=== PATIENT | male | born 1935 | race Caucasian/White ===

== ENCOUNTER → 2016-06-10 | Outpatient (CLI) | payer OTHER ==
--- NOTE | 2016-06-11 03:07 | REP ---
Clinical: Lower back pain. Technique: AP, lateral, bilateral oblique and coned-down views. Findings: Age-related osteopenia and moderate multilevel degenerative changes include anterior spurring/osteophyte formation, endplate sclerosis, disc space narrowing and hypertrophic facet changes. Findings are most pronounced at the L4-5, L3-4, and L5-S1 levels. No acute fracture / compression injury or subluxation. No evidence for spondylolysis. Impression: Osteopenia and moderate age-related degenerative disc disease. Signed by Abhilash Nieves MD 06/11/2016 02:58 A
== END ==
LOC: M RAD 16:07
PROVIDERS: ATTEND Chiropractor
DX: M85.88 Other specified disorders of bone density and structure, other site (principal); M51.36 Other intervertebral disc degeneration, lumbar region; M51.37 Other intervertebral disc degeneration, lumbosacral region

== ENCOUNTER → 2016-07-25 | Outpatient (REF) | payer OTHER ==
[2016-07-25 19:35] LABS: FREE T4 1.09 NG/DL (0.76-1.46)
== END ==
LOC: M LAB REF 16:50
PROVIDERS: ATTEND Internal Medicine Nephrology
DX: I48.2 Chronic atrial fibrillation (principal)

== ENCOUNTER → 2016-08-15 | Outpatient (CLI) | payer OTHER ==
--- NOTE | 2016-08-15 14:39 | REP ---
Clinical: Paroxysmal atrial fibrillation. Technique: PA and lateral. Comparison: 02/22/2014. Findings: Dual lead pacemaker in stable position. Mediastinum and cardiac silhouette normal. Lung celis demonstrate chronic changes with presumed mild COPD. No acute consolidation, effusion, or pneumothorax. Skeletal structures intact. Impression: Mild chronic changes. No acute cardiopulmonary process or focal consolidation. Signed by Abhilash Nieves MD 08/15/2016 02:30 P
== END ==
LOC: M RAD 14:20
PROVIDERS: ATTEND Physician Assistant
DX: I48.0 Paroxysmal atrial fibrillation (principal)

== ENCOUNTER → 2017-01-03 | Outpatient (CLI) | payer OTHER ==
--- NOTE | 2017-01-03 09:36 | REP ---
Chest x-ray: Two views. History: Paroxysmal atrial fibrillation. Comparison chest x-ray: August 15, 2016. Findings: A bipolar pacemaker remains in the right heart via the left side. There is a minimal zone of linear fibrosis in the left base unchanged. Heart is not felt to be enlarged. Cardiothoracic ratio measures 16.4 cm over 33.5 cm. Pulmonary vasculature is not increased. Pleural angles are sharp. Impression: Pacemaker in place. Otherwise no acute disease. Mild linear fibrosis left base. Signed by Miller El MD 01/03/2017 03:49 P
== END ==
LOC: M RAD 09:08
PROVIDERS: ATTEND Physician Assistant
DX: I48.0 Paroxysmal atrial fibrillation (principal)

== ENCOUNTER 2017-08-24 15:19 | Inpatient (IN) | payer OTHER ==
[2017-08-24 15:58] LABS: BASO # 0.1 10^3/uL (0.0-0.2); BASO % 0.3 % (0.0-1.0); EOS % 0.2 % (0.0-3.0); HEMATOCRIT 37.6 % (42.0-52.0); HEMOGLOBIN 12.4 g/dl (13.5-17.5); IMMATURE GRANULOCYTE % 1.5 % (0-3.0); LYMPH # 0.9 10^3/uL (1.5-4.5); LYMPH % 4.4 % (24.0-44.0); MEAN CORPUSCULAR HEMOGLOBIN 30.5 pg (27.0-33.0); MEAN CORPUSCULAR VOLUME 92.4 fl (80.0-96.0); NEUTROPHILS # 16.2 10^3/uL (1.8-7.7); NEUTROPHILS % 83.3 % (36.0-66.0); PLATELET COUNT, AUTOMATED 192 10^3/uL (150-450); RED BLOOD COUNT 4.07 10^6/uL (4.30-6.10); WHITE BLOOD COUNT 19.5 10^3/uL (4.0-10.0)
[2017-08-24] MEDS: NS 1,000 ML IV (16:00)
[2017-08-24 16:08] LABS: INR 1.22; PROTHROMBIN TIME 15.6 SECONDS (12.4-14.5)
[2017-08-24] MEDS: ONDANSETRON 4MG/2ML VIAL (J2405) IV (16:08)
[2017-08-24] MEDS: MORPHINE 2 MG/ML 1ML SYRINGE (J2270) IV (16:08)
[2017-08-24] MEDS: ACETAMINOPHEN 325 MG TAB PO (16:08)
[2017-08-24 16:15] LABS: MONO % 10.3 % (0.0-5.0); POSITIVE DIFF POS FLAG
[2017-08-24 16:26] LABS: ALBUMIN 2.9 GM/DL (3.2-5.2); ALBUMIN/GLOBULIN RATIO 1.07 (1.00-1.93); ALKALINE PHOSPHATASE 38 U/L (45-117); ALT/SGPT 15 U/L (12-78); ANION GAP 9 MEQ/L (8-16); AST/SGOT 11 U/L (7-37); BILIRUBIN,DIRECT 0.4 MG/DL (0.0-0.2); BILIRUBIN,TOTAL 1.1 MG/DL (0.2-1.0); BLOOD UREA NITROGEN 21 MG/DL (7-18); CALCIUM LEVEL 8.3 MG/DL (8.8-10.2); CARBON DIOXIDE LEVEL 28 MEQ/L (21-32); CHLORIDE LEVEL 104 MEQ/L (98-107); CK-MB VALUE MASS < 1.0 NG/ML (<3.6); CPK CREATINE PHOSPHOKINASE 31 U/L (39-308); CREATININE FOR GFR 1.74 MG/DL (0.70-1.30); GLOMERULAR FILTRATION RATE 40.2 (>35); GLUCOSE, FASTING 148 MG/DL (70-100); LIPASE 149 U/L (73-393); MB/CK RELATIVE INDEX 3.22 (< OR =4); POTASSIUM SERUM 3.7 MEQ/L (3.5-5.1); SODIUM LEVEL 141 MEQ/L (136-145); TOTAL PROTEIN 5.6 GM/DL (6.4-8.2); TROPONIN I < 0.02 NG/ML (< 0.10)
[2017-08-24] MEDS ORDERED: ONDANSETRON 4MG/2ML VIAL (J2405) IV (17:00)
[2017-08-24] MEDS: CIPROFLOXACIN 400 MG in APPROPRIATE DILUENT 1 EA IV (17:03)
[2017-08-24 17:12] LABS: KETONE, URINE AUTO RFX TRACE mg/dL (NEGATIVE); LEUKOCYTE ESTERASE UR AUTO RFX NEGATIVE (NEGATIVE); MUCUS, URINE RFX SMALL (NEGATIVE); NITRITE, URINE AUTO RFX NEGATIVE (NEGATIVE); RBC, URINE AUTO RFX 2 /HPF (0-3); SQUAM EPITHELIAL CELL UR AURFX 0 /HPF (0-6); WBC, URINE AUTO RFX 1 /HPF (0-3)
[2017-08-24 17:56] LABS: LACTIC ACID SEPSIS PROTOCOL 1.1 MMOL/L (0.4-2.0)
[2017-08-24] MEDS: ATENOLOL 50 MG TAB PO (18:00)
[2017-08-24] MEDS: metroNIDAZOLE 500 MG in APPROPRIATE DILUENT 1 EA IV (18:30)
[2017-08-24] MEDS: FINASTERIDE 5 MG TAB PO (21:14)
[2017-08-24] MEDS: OMEGA-3 1050MG CAPSULE PO (21:14)
[2017-08-24] MEDS: predniSONE 5 MG TAB PO (21:14)
[2017-08-24] MEDS: APIXABAN 2.5 MG TAB (ELIQUIS) PO (21:14)
[2017-08-24] MEDS ORDERED: PILL CRUSHER/CUTTER 1 EACH XX (21:15)
[2017-08-24] MEDS: SYMBICORT 160/4.5MCG INHALER 6GM INH (23:43)
[2017-08-25] MEDS: metroNIDAZOLE 500 MG in APPROPRIATE DILUENT 1 EA IV ×2 (02:39→10:13)
[2017-08-25] MEDS: NS 1,000 ML IV ×4 (02:39→22:04)
[2017-08-25] MEDS: CIPROFLOXACIN 400 MG in APPROPRIATE DILUENT 1 EA IV (05:11)
[2017-08-25 06:07] LABS: HEMATOCRIT 32.3 % (42.0-52.0); HEMOGLOBIN 10.5 g/dl (13.5-17.5); MEAN CORPUSCULAR HEMOGLOBIN 30.4 pg (27.0-33.0); MEAN CORPUSCULAR HGB CONC 32.5 g/dl (32.0-36.5); MEAN CORPUSCULAR VOLUME 93.6 fl (80.0-96.0); PLATELET COUNT, AUTOMATED 149 10^3/uL (150-450); RED BLOOD COUNT 3.45 10^6/uL (4.30-6.10); RED CELL DISTRIBUTION WIDTH 19.2 % (11.5-14.5)
[2017-08-25 06:29] LABS: ALBUMIN 2.2 GM/DL (3.2-5.2); ALBUMIN/GLOBULIN RATIO 0.71 (1.00-1.93); ALKALINE PHOSPHATASE 34 U/L (45-117); ALT/SGPT 18 U/L (12-78); ANION GAP 5 MEQ/L (8-16); AST/SGOT 23 U/L (7-37); BILIRUBIN,TOTAL 0.8 MG/DL (0.2-1.0); BLOOD UREA NITROGEN 22 MG/DL (7-18); CALCIUM LEVEL 7.7 MG/DL (8.8-10.2); CARBON DIOXIDE LEVEL 29 MEQ/L (21-32); CHLORIDE LEVEL 106 MEQ/L (98-107); CREATININE FOR GFR 2.08 MG/DL (0.70-1.30); GLOMERULAR FILTRATION RATE 32.7 (>35); GLUCOSE, FASTING 188 MG/DL (70-100); SODIUM LEVEL 140 MEQ/L (136-145); TOTAL PROTEIN 5.3 GM/DL (6.4-8.2)
[2017-08-25] MEDS: SYMBICORT 160/4.5MCG INHALER 6GM INH ×2 (07:25→21:00)
[2017-08-25] MEDS: ASPIRIN 81 MG ENTERIC TAB PO (08:30)
[2017-08-25] MEDS: APIXABAN 2.5 MG TAB (ELIQUIS) PO ×2 (08:30→20:28)
[2017-08-25] MEDS: OMEPRAZOLE 20 MG CAP PO (08:30)
[2017-08-25] MEDS: FENOFIBRATE 145 MG TAB (TRICOR) PO (08:30)
[2017-08-25] MEDS: OMEGA-3 1050MG CAPSULE PO ×2 (08:30→20:28)
[2017-08-25] MEDS: AMIODARONE 200 MG TAB (PACERONE) PO (08:31)
[2017-08-25] MEDS: ATENOLOL 50 MG TAB PO ×2 (08:33→17:53)
[2017-08-25] MEDS: traMADol 50 MG TAB PO ×2 (10:41→20:29)
[2017-08-25 11:45] LABS: CHLORIDE,RANDOM URINE 48 MEQ/L; POTASSIUM RANDOM URINE 40.7 MEQ/L; SODIUM,RANDOM URINE 36 MEQ/L; TOTAL PROTEIN,RANDOM URINE 74.8 MG/DL (0.0-12.0)
[2017-08-25 12:05] LABS: OSMOLALITY URINE 427 MOSM/KG (500-800)
[2017-08-25] MEDS: PIPERACILLIN/TAZOBACTAM SOD 3.375 GM in D5W MINI-BAG PLUS 50 ML IV ×2 (15:30→22:04)
[2017-08-25] MEDS: CALCIUM CARBONATE 500 MG CHEW U/D PO (17:54)
[2017-08-25] MEDS: predniSONE 5 MG TAB PO (20:28)
[2017-08-25] MEDS: FINASTERIDE 5 MG TAB PO (20:28)
[2017-08-25] MEDS: ACETAMINOPHEN TAB 650MG DOSE (2X325MG) PO (22:04)
[2017-08-26] MEDS: PIPERACILLIN/TAZOBACTAM SOD 3.375 GM in D5W MINI-BAG PLUS 50 ML IV ×3 (06:06→22:08)
[2017-08-26] MEDS: NS 1,000 ML IV (06:06)
[2017-08-26 06:54] LABS: HEMATOCRIT 32.5 % (42.0-52.0); HEMOGLOBIN 10.5 g/dl (13.5-17.5); MEAN CORPUSCULAR HEMOGLOBIN 30.4 pg (27.0-33.0); MEAN CORPUSCULAR HGB CONC 32.3 g/dl (32.0-36.5); MEAN CORPUSCULAR VOLUME 94.2 fl (80.0-96.0); PLATELET COUNT, AUTOMATED 152 10^3/uL (150-450); RED BLOOD COUNT 3.45 10^6/uL (4.30-6.10); RED CELL DISTRIBUTION WIDTH 18.5 % (11.5-14.5); WHITE BLOOD COUNT 10.8 10^3/uL (4.0-10.0)
[2017-08-26 07:22] LABS: ALBUMIN/GLOBULIN RATIO 0.61 (1.00-1.93); ALKALINE PHOSPHATASE 36 U/L (45-117); ALT/SGPT 17 U/L (12-78); ANION GAP 9 MEQ/L (8-16); AST/SGOT 16 U/L (7-37); BILIRUBIN,TOTAL 0.4 MG/DL (0.2-1.0); BLOOD UREA NITROGEN 17 MG/DL (7-18); CALCIUM LEVEL 7.6 MG/DL (8.8-10.2); CARBON DIOXIDE LEVEL 22 MEQ/L (21-32); CHLORIDE LEVEL 112 MEQ/L (98-107); CREATININE FOR GFR 1.42 MG/DL (0.70-1.30); GLOMERULAR FILTRATION RATE 50.8 (>35); GLUCOSE, FASTING 120 MG/DL (70-100); POTASSIUM SERUM 4.1 MEQ/L (3.5-5.1); SODIUM LEVEL 143 MEQ/L (136-145); TOTAL PROTEIN 5.3 GM/DL (6.4-8.2)
[2017-08-26] MEDS: SYMBICORT 160/4.5MCG INHALER 6GM INH ×2 (07:51→19:35)
[2017-08-26] MEDS: OMEGA-3 1050MG CAPSULE PO ×2 (09:34→20:32)
[2017-08-26] MEDS: ASPIRIN 81 MG ENTERIC TAB PO (09:35)
[2017-08-26] MEDS: ATENOLOL 50 MG TAB PO ×2 (09:35→18:04)
[2017-08-26] MEDS: AMIODARONE 200 MG TAB (PACERONE) PO (09:36)
[2017-08-26] MEDS: OMEPRAZOLE 20 MG CAP PO (09:36)
[2017-08-26] MEDS: APIXABAN 2.5 MG TAB (ELIQUIS) PO ×2 (09:37→20:32)
[2017-08-26] MEDS: NS 0.45% 1,000 ML IV ×2 (12:56→22:08)
[2017-08-26] MEDS: traMADol 50 MG TAB PO ×2 (15:43→20:33)
[2017-08-26] MEDS: ACETAMINOPHEN TAB 650MG DOSE (2X325MG) PO (20:32)
[2017-08-26] MEDS: FINASTERIDE 5 MG TAB PO (20:32)
[2017-08-26] MEDS: predniSONE 5 MG TAB PO (20:33)
[2017-08-27] MEDS: PIPERACILLIN/TAZOBACTAM SOD 3.375 GM in D5W MINI-BAG PLUS 50 ML IV ×3 (06:10→22:35)
[2017-08-27 06:38] LABS: HEMATOCRIT 32.5 % (42.0-52.0); HEMOGLOBIN 10.5 g/dl (13.5-17.5); MEAN CORPUSCULAR HEMOGLOBIN 30.4 pg (27.0-33.0); MEAN CORPUSCULAR HGB CONC 32.3 g/dl (32.0-36.5); MEAN CORPUSCULAR VOLUME 94.2 fl (80.0-96.0); PLATELET COUNT, AUTOMATED 179 10^3/uL (150-450); RED BLOOD COUNT 3.45 10^6/uL (4.30-6.10); RED CELL DISTRIBUTION WIDTH 18.6 % (11.5-14.5); WHITE BLOOD COUNT 9.2 10^3/uL (4.0-10.0)
[2017-08-27 07:18] LABS: ALBUMIN 2.1 GM/DL (3.2-5.2); ALBUMIN/GLOBULIN RATIO 0.64 (1.00-1.93); ALKALINE PHOSPHATASE 35 U/L (45-117); ALT/SGPT 15 U/L (12-78); ANION GAP 4 MEQ/L (8-16); AST/SGOT 12 U/L (7-37); BILIRUBIN,TOTAL 0.4 MG/DL (0.2-1.0); BLOOD UREA NITROGEN 11 MG/DL (7-18); CARBON DIOXIDE LEVEL 28 MEQ/L (21-32); CHLORIDE LEVEL 112 MEQ/L (98-107); GLOMERULAR FILTRATION RATE 56.3 (>35); GLUCOSE, FASTING 122 MG/DL (70-100); POTASSIUM SERUM 4.1 MEQ/L (3.5-5.1); SODIUM LEVEL 144 MEQ/L (136-145); TOTAL PROTEIN 5.4 GM/DL (6.4-8.2)
[2017-08-27] MEDS: SYMBICORT 160/4.5MCG INHALER 6GM INH ×3 (07:43→21:00)
[2017-08-27] MEDS: ASPIRIN 81 MG ENTERIC TAB PO (08:54)
[2017-08-27] MEDS: AMIODARONE 200 MG TAB (PACERONE) PO (08:54)
[2017-08-27] MEDS: OMEGA-3 1050MG CAPSULE PO ×2 (08:54→21:00)
[2017-08-27] MEDS: ATENOLOL 50 MG TAB PO ×2 (08:55→18:00)
[2017-08-27] MEDS: ACETAMINOPHEN TAB 650MG DOSE (2X325MG) PO ×2 (08:55→22:36)
[2017-08-27] MEDS: APIXABAN 2.5 MG TAB (ELIQUIS) PO ×2 (08:55→21:01)
[2017-08-27] MEDS: OMEPRAZOLE 20 MG CAP PO (08:55)
[2017-08-27] MEDS: FINASTERIDE 5 MG TAB PO (21:00)
[2017-08-27] MEDS: predniSONE 5 MG TAB PO (21:01)
[2017-08-28] MEDS: PIPERACILLIN/TAZOBACTAM SOD 3.375 GM in D5W MINI-BAG PLUS 50 ML IV (06:29)
[2017-08-28] MEDS: ACETAMINOPHEN TAB 650MG DOSE (2X325MG) PO ×3 (06:34→20:53)
[2017-08-28 06:47] LABS: HEMATOCRIT 34.9 % (42.0-52.0); HEMOGLOBIN 11.4 g/dl (13.5-17.5); MEAN CORPUSCULAR HEMOGLOBIN 30.5 pg (27.0-33.0); MEAN CORPUSCULAR HGB CONC 32.7 g/dl (32.0-36.5); MEAN CORPUSCULAR VOLUME 93.3 fl (80.0-96.0); PLATELET COUNT, AUTOMATED 224 10^3/uL (150-450); RED BLOOD COUNT 3.74 10^6/uL (4.30-6.10); RED CELL DISTRIBUTION WIDTH 18.4 % (11.5-14.5); WHITE BLOOD COUNT 7.3 10^3/uL (4.0-10.0)
[2017-08-28 07:07] LABS: ALBUMIN 2.1 GM/DL (3.2-5.2); ALBUMIN/GLOBULIN RATIO 0.64 (1.00-1.93); ALKALINE PHOSPHATASE 47 U/L (45-117); ALT/SGPT 17 U/L (12-78); ANION GAP 4 MEQ/L (8-16); AST/SGOT 15 U/L (7-37); BILIRUBIN,TOTAL 0.4 MG/DL (0.2-1.0); BLOOD UREA NITROGEN 8 MG/DL (7-18); CALCIUM LEVEL 7.7 MG/DL (8.8-10.2); CARBON DIOXIDE LEVEL 30 MEQ/L (21-32); CHLORIDE LEVEL 112 MEQ/L (98-107); CREATININE FOR GFR 1.35 MG/DL (0.70-1.30); GLOMERULAR FILTRATION RATE 53.9 (>35); GLUCOSE, FASTING 132 MG/DL (70-100); POTASSIUM SERUM 3.7 MEQ/L (3.5-5.1); SODIUM LEVEL 146 MEQ/L (136-145); TOTAL PROTEIN 5.4 GM/DL (6.4-8.2)
[2017-08-28] MEDS: IPRATROPIUM 0.5MG/ALBUTEROL 2.5MG INH SOL UD 3ML (DUONEB)(J7620) NEB (07:52)
[2017-08-28] MEDS: SYMBICORT 160/4.5MCG INHALER 6GM INH ×2 (07:52→20:17)
[2017-08-28] MEDS: APIXABAN 2.5 MG TAB (ELIQUIS) PO ×2 (08:53→20:53)
[2017-08-28] MEDS: OMEGA-3 1050MG CAPSULE PO ×2 (08:54→20:53)
[2017-08-28] MEDS: AMIODARONE 200 MG TAB (PACERONE) PO (08:54)
[2017-08-28] MEDS: ATENOLOL 50 MG TAB PO ×2 (08:54→18:38)
[2017-08-28] MEDS: OMEPRAZOLE 20 MG CAP PO (08:54)
[2017-08-28] MEDS: ASPIRIN 81 MG ENTERIC TAB PO (08:54)
[2017-08-28] MEDS ORDERED: HEPARIN SOD (PORCINE) 5000 UNITS/ML VIAL As Ordered (15:44)
[2017-08-28] MEDS: AUGMENTIN 875 MG TAB PO (20:52)
[2017-08-28] MEDS: FINASTERIDE 5 MG TAB PO (20:52)
[2017-08-28] MEDS: traMADol 50 MG TAB PO (20:53)
[2017-08-28] MEDS: predniSONE 5 MG TAB PO (20:53)
[2017-08-28] MEDS: rOPINIRole 0.25 MG TAB(REQUIP) PO (23:50)
[2017-08-29] MEDS: ACETAMINOPHEN TAB 650MG DOSE (2X325MG) PO ×2 (05:30→15:16)
[2017-08-29 05:58] LABS: HEMATOCRIT 32.6 % (42.0-52.0); HEMOGLOBIN 10.7 g/dl (13.5-17.5); MEAN CORPUSCULAR HEMOGLOBIN 30.7 pg (27.0-33.0); MEAN CORPUSCULAR HGB CONC 32.8 g/dl (32.0-36.5); MEAN CORPUSCULAR VOLUME 93.4 fl (80.0-96.0); PLATELET COUNT, AUTOMATED 206 10^3/uL (150-450); RED BLOOD COUNT 3.49 10^6/uL (4.30-6.10); RED CELL DISTRIBUTION WIDTH 17.9 % (11.5-14.5); WHITE BLOOD COUNT 7.2 10^3/uL (4.0-10.0)
[2017-08-29 06:28] LABS: ALBUMIN 2.1 GM/DL (3.2-5.2); ALBUMIN/GLOBULIN RATIO 0.68 (1.00-1.93); ALKALINE PHOSPHATASE 52 U/L (45-117); ALT/SGPT 18 U/L (12-78); ANION GAP 6 MEQ/L (8-16); AST/SGOT 20 U/L (7-37); BILIRUBIN,TOTAL 0.3 MG/DL (0.2-1.0); BLOOD UREA NITROGEN 8 MG/DL (7-18); CALCIUM LEVEL 7.9 MG/DL (8.8-10.2); CARBON DIOXIDE LEVEL 29 MEQ/L (21-32); CHLORIDE LEVEL 113 MEQ/L (98-107); CREATININE FOR GFR 1.23 MG/DL (0.70-1.30); GLUCOSE, FASTING 113 MG/DL (70-100); POTASSIUM SERUM 3.6 MEQ/L (3.5-5.1); SODIUM LEVEL 148 MEQ/L (136-145); TOTAL PROTEIN 5.2 GM/DL (6.4-8.2)
[2017-08-29] MEDS: SYMBICORT 160/4.5MCG INHALER 6GM INH ×2 (07:50→19:59)
[2017-08-29] MEDS: ASPIRIN 81 MG ENTERIC TAB PO (09:18)
[2017-08-29] MEDS: OMEGA-3 1050MG CAPSULE PO ×2 (09:19→20:42)
[2017-08-29] MEDS: AUGMENTIN 875 MG TAB PO ×2 (09:19→20:42)
[2017-08-29] MEDS: AMIODARONE 200 MG TAB (PACERONE) PO (09:20)
[2017-08-29] MEDS: APIXABAN 2.5 MG TAB (ELIQUIS) PO ×2 (09:20→20:42)
[2017-08-29] MEDS: OMEPRAZOLE 20 MG CAP PO (09:21)
[2017-08-29] MEDS: ATENOLOL 50 MG TAB PO ×2 (09:21→18:06)
[2017-08-29] MEDS ORDERED: ISOVUE-370 76% 100ML VIAL (Q9967) As Ordered (10:54)
[2017-08-29] MEDS: rOPINIRole 0.25 MG TAB(REQUIP) PO (20:42)
[2017-08-29] MEDS: predniSONE 5 MG TAB PO (20:42)
[2017-08-29] MEDS: FINASTERIDE 5 MG TAB PO (20:42)
[2017-08-30] MEDS: ACETAMINOPHEN TAB 650MG DOSE (2X325MG) PO (05:36)
[2017-08-30 06:37] LABS: HEMATOCRIT 34.1 % (42.0-52.0); HEMOGLOBIN 10.8 g/dl (13.5-17.5); MEAN CORPUSCULAR HEMOGLOBIN 29.7 pg (27.0-33.0); MEAN CORPUSCULAR HGB CONC 31.7 g/dl (32.0-36.5); MEAN CORPUSCULAR VOLUME 93.7 fl (80.0-96.0); PLATELET COUNT, AUTOMATED 216 10^3/uL (150-450); RED BLOOD COUNT 3.64 10^6/uL (4.30-6.10); RED CELL DISTRIBUTION WIDTH 18.4 % (11.5-14.5); WHITE BLOOD COUNT 9.3 10^3/uL (4.0-10.0)
[2017-08-30 07:05] LABS: ALBUMIN 2.3 GM/DL (3.2-5.2); ALBUMIN/GLOBULIN RATIO 0.92 (1.00-1.93); ALKALINE PHOSPHATASE 65 U/L (45-117); ALT/SGPT 22 U/L (12-78); ANION GAP 6 MEQ/L (8-16); AST/SGOT 24 U/L (7-37); BILIRUBIN,TOTAL 0.3 MG/DL (0.2-1.0); BLOOD UREA NITROGEN 9 MG/DL (7-18); CALCIUM LEVEL 7.8 MG/DL (8.8-10.2); CARBON DIOXIDE LEVEL 29 MEQ/L (21-32); CHLORIDE LEVEL 113 MEQ/L (98-107); GLOMERULAR FILTRATION RATE > 60.0 (>35); GLUCOSE, FASTING 128 MG/DL (70-100); POTASSIUM SERUM 3.7 MEQ/L (3.5-5.1); SODIUM LEVEL 148 MEQ/L (136-145); TOTAL PROTEIN 4.8 GM/DL (6.4-8.2)
[2017-08-30] MEDS: SYMBICORT 160/4.5MCG INHALER 6GM INH (07:18)
[2017-08-30] MEDS: AMIODARONE 200 MG TAB (PACERONE) PO (09:18)
[2017-08-30] MEDS: AUGMENTIN 875 MG TAB PO (09:18)
[2017-08-30] MEDS: OMEGA-3 1050MG CAPSULE PO (09:18)
[2017-08-30] MEDS: ASPIRIN 81 MG ENTERIC TAB PO (09:18)
[2017-08-30] MEDS: OMEPRAZOLE 20 MG CAP PO (09:19)
[2017-08-30] MEDS: APIXABAN 2.5 MG TAB (ELIQUIS) PO (09:19)
[2017-08-30] MEDS: ATENOLOL 50 MG TAB PO (09:19)
== END 2017-08-30 12:45 | disposition home or self-care (01) | DRG 371 ==
LOC: M ED 15:19 → M ED INP 16:47 → M MS5PR 20:50
DX: A04.9 Bacterial intestinal infection, unspecified (principal); A41.9 Sepsis, unspecified organism; N17.9 Acute kidney failure, unspecified; K56.600 Partial intestinal obstruction, unspecified as to cause; D72.829 Elevated white blood cell count, unspecified; I48.91 Unspecified atrial fibrillation; E78.5 Hyperlipidemia, unspecified; N28.1 Cyst of kidney, acquired; 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, or unspecified chronic kidney disease; G25.81 Restless legs syndrome; N18.3 Chronic kidney disease, stage 3 (moderate); J45.909 Unspecified asthma, uncomplicated; Z79.82 Long term (current) use of aspirin; Z79.899 Other long term (current) drug therapy; Z79.52 Long term (current) use of systemic steroids; Z95.0 Presence of cardiac pacemaker

== ENCOUNTER → 2018-01-07 | Outpatient (CLI) | payer OTHER ==
[2018-01-07 13:01] LABS: HEMATOCRIT 37.7 % (42.0-52.0); HEMOGLOBIN 12.3 g/dl (13.5-17.5); MEAN CORPUSCULAR HEMOGLOBIN 30.2 pg (27.0-33.0); MEAN CORPUSCULAR HGB CONC 32.6 g/dl (32.0-36.5); MEAN CORPUSCULAR VOLUME 92.6 fl (80.0-96.0); PLATELET COUNT, AUTOMATED 204 10^3/uL (150-450); RED BLOOD COUNT 4.07 10^6/uL (4.30-6.10); RED CELL DISTRIBUTION WIDTH 19.3 % (11.5-14.5); WHITE BLOOD COUNT 11.3 10^3/uL (4.0-10.0)
[2018-01-07 14:42] LABS: ALBUMIN 3.2 GM/DL (3.2-5.2); ALBUMIN/GLOBULIN RATIO 1.28 (1.00-1.93); ALKALINE PHOSPHATASE 38 U/L (45-117); ALT/SGPT 25 U/L (12-78); ANION GAP 7 MEQ/L (8-16); AST/SGOT 23 U/L (7-37); BILIRUBIN,TOTAL 0.8 MG/DL (0.2-1.0); BLOOD UREA NITROGEN 26 MG/DL (7-18); CALCIUM LEVEL 8.9 MG/DL (8.8-10.2); CARBON DIOXIDE LEVEL 32 MEQ/L (21-32); CHLORIDE LEVEL 106 MEQ/L (98-107); CREATININE FOR GFR 1.53 MG/DL (0.70-1.30); GLOMERULAR FILTRATION RATE 46.5 (>35); GLUCOSE, FASTING 107 MG/DL (70-100); MAGNESIUM LEVEL 1.9 MG/DL (1.8-2.4); POTASSIUM SERUM 4.5 MEQ/L (3.5-5.1); SODIUM LEVEL 145 MEQ/L (136-145); THYROID STIMULATING HORMONE 0.789 uIU/ML (0.358-3.740); TOTAL PROTEIN 5.7 GM/DL (6.4-8.2)
== END ==
LOC: M LAB 12:23
DX: I48.0 Paroxysmal atrial fibrillation (principal)
CPT/HCPCS: 71046

== ENCOUNTER → 2018-05-18 | Outpatient (CLI) | payer MEDICARE, OTHER ==
[~2018-05-18] MED LIST: AMIO200T PO; ASPI81TA85 PO; ATEN50TA2 PO; CALC600T31 PO; ELIQ2.5T PO; FENO160T10 PO; FINA5TAB2 PO; FISH120012 PO; LEVAINH INH; OMEP40CA2 PO; PRED5TA PO; REQU1TAB14 PO; SYMB16INH INH; TRAM50TA2 PO
[2018-05-18 18:29] LABS: BASO # 0.1 10^3/uL (0.0-0.2); BASO % 0.3 % (0.0-1.0); EOS % 0.1 % (0.0-3.0); HEMATOCRIT 38.3 % (42.0-52.0); HEMOGLOBIN 12.7 g/dl (13.5-17.5); LYMPH # 0.6 10^3/uL (1.5-4.5); LYMPH % 3.6 % (24.0-44.0); MEAN CORPUSCULAR HEMOGLOBIN 29.8 pg (27.0-33.0); MEAN CORPUSCULAR HGB CONC 33.2 g/dl (32.0-36.5); MEAN CORPUSCULAR VOLUME 89.9 fl (80.0-96.0); MONO # 1.6 10^3/uL (0.0-0.8); MONO % 10.4 % (0.0-5.0); NEUTROPHILS # 12.4 10^3/uL (1.8-7.7); PLATELET COUNT, AUTOMATED 212 10^3/uL (150-450); RED BLOOD COUNT 4.26 10^6/uL (4.30-6.10); WHITE BLOOD COUNT 15.2 10^3/uL (4.0-10.0)
[2018-05-18 19:06] LABS: ALT/SGPT 22 U/L (12-78); BILIRUBIN,TOTAL 0.6 MG/DL (0.2-1.0); BLOOD UREA NITROGEN 32 MG/DL (7-18); CALCIUM LEVEL 8.5 MG/DL (8.8-10.2); CARBON DIOXIDE LEVEL 28 MEQ/L (21-32); CHLORIDE LEVEL 102 MEQ/L (98-107); CPK CREATINE PHOSPHOKINASE 61 U/L (39-308); CREATININE FOR GFR 1.65 MG/DL (0.70-1.30); GLOMERULAR FILTRATION RATE 42.6 (>35); GLUCOSE, FASTING 130 MG/DL (70-100); MAGNESIUM LEVEL 1.8 MG/DL (1.8-2.4); NT-PRO BNP 793 PG/ML (<450); POTASSIUM SERUM 4.5 MEQ/L (3.5-5.1); SODIUM LEVEL 139 MEQ/L (136-145); THYROID STIMULATING HORMONE 0.664 uIU/ML (0.358-3.740); TOTAL PROTEIN 6.1 GM/DL (6.4-8.2); TROPONIN I < 0.02 NG/ML (< 0.10)
--- NOTE | 2018-05-19 01:56 | REP ---
Clinical: Cough. Technique: PA and lateral. Comparison: 01/07/2018. Findings: Mediastinum and cardiac silhouette are within normal limits and stable. Dual lead pacemaker in stable satisfactory position. Medial right basilar opacity may reflect prominent pericardial fat pad versus right basilar infiltrate/atelectasis and correlation is recommended. Diffuse underlying chronic interstitial changes noted bilaterally. No effusion. No pneumothorax. Skeletal structures intact. Impression: Right medial basilar opacity suggests prominent fat pad versus area of infiltrate/atelectasis and correlation is recommended. Consider follow-up examination. Electronically Signed by Abhilash Nieves MD 05/19/2018 01:48 A
== END ==
LOC: M LAB 17:48
PROVIDERS: ATTEND Nurse Practitioner
DX: R91.8 Other nonspecific abnormal finding of lung field (principal); R06.02 Shortness of breath; R00.2 Palpitations; R53.83 Other fatigue; R05 Cough

== ENCOUNTER → 2018-07-14 | Outpatient (REF) | payer MEDICARE | LOC: M LAB REF 10:03 | PROVIDERS: ATTEND Physician Assistant | DX: I50.9 Heart failure, unspecified (principal) ==

== ENCOUNTER → 2018-07-14 | Outpatient (CLI) | payer MEDICARE ==
[2018-07-14 14:10] LABS: CALCIUM LEVEL 8.7 MG/DL (8.8-10.2); CREATININE FOR GFR 1.65 MG/DL (0.70-1.30); GLOMERULAR FILTRATION RATE 42.6 (>35); MAGNESIUM LEVEL 1.8 MG/DL (1.8-2.4); POTASSIUM SERUM 3.8 MEQ/L (3.5-5.1)
== END ==
LOC: M RAD 12:50
PROVIDERS: ATTEND Internal Medicine
DX: I48.0 Paroxysmal atrial fibrillation (principal)

== ENCOUNTER 2019-02-14 13:26 | Inpatient (IN) | payer MEDICARE ==
[~2019-02-14] VITALS: Ht 170.2 cm; Wt 67.2 kg
[~2019-02-14 13:26] MED LIST changes: -OMEP40CA2 PO; +OMEP40CA97 PO
[2019-02-14] MEDS ORDERED: IPRATROPIUM 0.5MG/ALBUTEROL 2.5MG INH SOL UD 3ML (DUONEB)(J7620) NEB ONE (13:45)
[2019-02-14 13:55] LABS: BASO # 0.1 10^3/uL (0.0-0.2); BASO % 0.3 % (0.0-1.0); EOS % 0.2 % (0.0-3.0); HEMOGLOBIN 10.5 g/dl (13.5-17.5); LYMPH # 0.9 10^3/uL (1.5-5.0); LYMPH % 4.6 % (24.0-44.0); MEAN CORPUSCULAR HEMOGLOBIN 30.2 pg (27.0-33.0); MEAN CORPUSCULAR HGB CONC 31.8 g/dl (32.0-36.5); MEAN CORPUSCULAR VOLUME 94.8 fl (80.0-96.0); NEUTROPHILS # 14.6 10^3/uL (1.5-8.5); NEUTROPHILS % 76.8 % (36.0-66.0); PLATELET COUNT, AUTOMATED 155 10^3/uL (150-450); RED BLOOD COUNT 3.48 10^6/uL (4.30-6.10); WHITE BLOOD COUNT 18.9 10^3/uL (4.0-10.0)
[2019-02-14 14:07] LABS: INR 1.27; PROTHROMBIN TIME 15.6 SECONDS (11.8-14.0)
[2019-02-14 14:08] LABS: PARTIAL THROMBOPLASTIN TIME 36.3 SECONDS (25.0-38.4)
[2019-02-14] MEDS ORDERED: MIRA3350 PO (14:08)
[2019-02-14] MEDS ORDERED: TAMS1CAP17 PO (14:08)
[2019-02-14] MEDS ORDERED: POTA10TA17 PO (14:08)
[2019-02-14] MEDS ORDERED: TORS20TA2 PO (14:08)
[2019-02-14] MEDS ORDERED: DILT60TA PO (14:08)
[2019-02-14] MEDS ORDERED: ROPI0.253 PO ×2 (14:08→15:42)
[2019-02-14] MEDS ORDERED: MAGN400T2 PO (14:08)
[2019-02-14 14:16] LABS: MONO % 15.8 % (0.0-5.0)
[2019-02-14 14:19] LABS: ABG BASE EXCESS 4.4 (-2.0-2.0); ABG HCO3 28.8 MEQ/L (22.0-26.0); ABG O2 SATURATION 96.1 % (95.0-99.0); ABG PARTIAL PRESSURE CO2 42.1 mmHg (35.0-45.0); ABG PARTIAL PRESSURE O2 82.2 mmHg (75.0-100.0); ABG STANDARD HCO3 28.4 MEQ/L (22.0-26.0); ABG TOTAL CO2 30.1 MEQ/L (23.0-31.0); ABG pH (ARTERIAL) 7.453 UNITS (7.350-7.450)
[2019-02-14 14:25] LABS: INFLUENZA A AMPLIFICATION NEGATIVE (NEGATIVE); INFLUENZA B AMPLIFICATION NEGATIVE (NEGATIVE)
[2019-02-14 14:34] LABS: ALBUMIN 2.8 GM/DL (3.2-5.2); ALT/SGPT 17 U/L (12-78); BILIRUBIN,DIRECT 0.3 MG/DL (0.0-0.2); BILIRUBIN,TOTAL 0.8 MG/DL (0.2-1.0); BLOOD UREA NITROGEN 21 MG/DL (7-18); CALCIUM LEVEL 8.7 MG/DL (8.8-10.2); CARBON DIOXIDE LEVEL 33 MEQ/L (21-32); CHLORIDE LEVEL 103 MEQ/L (98-107); CK-MB VALUE MASS < 1.0 NG/ML (<3.6); CPK CREATINE PHOSPHOKINASE 22 U/L (39-308); FREE T4 1.44 NG/DL (0.76-1.46); GLOMERULAR FILTRATION RATE 41.1 (>35); GLUCOSE, FASTING 127 MG/DL (70-100); MB/CK RELATIVE INDEX 4.55 (< OR =4); POTASSIUM SERUM 3.9 MEQ/L (3.5-5.1); SODIUM LEVEL 142 MEQ/L (136-145); TOTAL PROTEIN 5.7 GM/DL (6.4-8.2); TROPONIN I < 0.02 NG/ML (< 0.10)
[2019-02-14] MEDS ORDERED: ONDANSETRON 4MG/2ML VIAL (J2405) IV ONE (15:00)
[2019-02-14] MEDS ORDERED: PIPERACILLIN/TAZOBACTAM SOD 2.25 GM in D5W MINI-BAG PLUS 50 ML IV ONE (15:30)
[2019-02-14] MEDS ORDERED: VANCOMYCIN HCL 1,000 MG, VIAL MATE ADAPTER 1 EACH in D5W 250 ML IV ONE (15:30)
[2019-02-14] MEDS ORDERED: TORS10TA3 PO (15:42)
[2019-02-14] MEDS ORDERED: OMEG1CAP14 PO (15:42)
[2019-02-14] MEDS ORDERED: CARD120T4 PO (15:42)
[2019-02-14] MEDS ORDERED: ACET-683 PO (15:42)
[2019-02-14] MEDS ORDERED: ATEN100T PO (15:42)
[2019-02-14] MEDS ORDERED: PRED5TA PO (15:43)
[2019-02-14] MEDS ORDERED: ACETAMINOPHEN TAB 650MG DOSE (2X325MG) PO PRN (16:00)
[2019-02-14] MEDS ORDERED: IPRATROPIUM 0.5MG/ALBUTEROL 2.5MG INH SOL UD 3ML (DUONEB)(J7620) NEB PRN (16:00)
--- NOTE | 2019-02-14 16:02 | HPEPDOC ---
[facility] Medical History & Physical Date of Admission Feb 14, 2019 Date of Service: Feb 14, 2019 History and Physical CHIEF COMPLAINT: Cough HISTORY OF PRESENT ILLNESS: Patient is a 83M with PMH COPD on 2L home O2, Afib s/p pacemaker and ablation x2 on eliquis, HTN, HLD presented to the ER with complaints of worsening cough for the past week. Patient stated that he had a mild cough started about one week ago along with other URI symptoms including runny nose and productive cough. Symptoms progressively got worse and he became SOB last night. He had some nausea today but otherwise denies any chest pain, fever, chills, abdominal discomfort. Of note, he was hospitalized several weeks ago for an ablation procedure with cardiology and had felt well after the procedure. PAST MEDICAL HISTORY: Refer to [facility] PAST SURGICAL HISTORY: Ablation x2 Pacemaker placement SOCIAL HISTORY: Former tobacco use. Denies alcohol or illicit drug use. FAMILY HISTORY: Father- [place] Mother- Stomach cancer ALLERGIES: Please see below. REVIEW OF SYSTEMS: 10 point review of system negative except as stated in HPI HOME MEDICATIONS: Please see below. PHYSICAL EXAMINATION: General: No acute distress, Alert Eyes: Normal sclera, EOMI, CARMELA HENT: Atraumatic Cardiovascular: Normal rate, normal rhythm. Pulmonary: LLL crackle, no wheezing, nonlabored breathing GI: Soft, nontender, nondistended Skin: Warm and dry Neuro: CN grossly intact. No focal deficits. Strengths equal b/l. Psych: oriented x 3 LABORATORY DATA: See below. IMAGING: CXR- pending official read. MICROBIOLOGY: Please see below. ASSESSMENT AND PLAN: 1. Pneumonia suspecting HAP - Increase in productive cough with LLL infiltrate, will treat for HAP given recent hospitalization. - WBC 18.9, afebrile however. - c/w Vancomycin and Zosyn. - O2 support as needed. - Obtain sputum culture. f/u blood cultures. 2. COPD - 2L home O2. Does not appear to be in exacerbation. no evidence of wheezing. - Duonebs PRN. 3. HTN - Resume home meds. 4. Afib - s/p ablation x2 with pacemaker. - c/w home meds. Eliquis for AC. DVT ppx: eliquis Code status: Full code Vital Signs Vital Signs Date Time Temp Pulse Resp B/P (MAP) Pulse Ox O2 Delivery O2 Flow Rate FiO2 02/14/19 15:50 69 94/51 (65) 94 Nasal Cannula 2.0 02/14/19 14:49 20 02/14/19 13:36 98.4 Laboratory Data Labs 24H Laboratory Tests 2 02/14/19 13:49: Immature Granulocyte % (Auto) 2.3, Neutrophils (%) (Auto) 76.8H, Lymphocytes (%) (Auto) 4.6L, Monocytes (%) (Auto) 15.8H, Eosinophils (%) (Auto) 0.2, Basophils (%) (Auto) 0.3, Neutrophils # (Auto) 14.6H, Lymphocytes # (Auto) 0.9L, Monocytes # (Auto) 3.0H, Eosinophils # (Auto) 0.0, Basophils # (Auto) 0.1, Nucleated Red Blood Cells % (auto) 0.0, Prothrombin Time 15.6H, Prothromb Time International Ratio 1.27, Activated Partial Thromboplast Time 36.3, Anion Gap 6L, Glomerular Filtration Rate 41.1, Calcium Level 8.7L, Total Bilirubin 0.8, Direct Bilirubin 0.3H, Aspartate Amino Transf (AST/SGOT) 16, Alanine Aminotransferase (ALT/SGPT) 17, Alkaline Phosphatase 39L, Total Creatine Kinase 22L, Creatine Kinase MB < 1.0, Creatine Kinase MB Relative Index 4.55H, Troponin I < 0.02, Total Protein 5.7L, Albumin 2.8L, Albumin/Globulin Ratio 0.97L, Thyroid Stimulating Hormone (TSH) 0.930, Free Thyroxine 1.44, Influenza Type A (RT-PCR) NEGATIVE, Influenza Type B (RT-PCR) NEGATIVE 02/14/19 14:04: Blood Gas Bicarbonate Standard 28.4H, Arterial Blood pH 7.453H, Arterial Blood Partial Pressure CO2 42.1, Arterial Blood Partial Pressure O2 82.2, Arterial Blood Total CO2 30.1, Arterial Blood HCO3 28.8H, Arterial Blood Base Excess 4.4H, Arterial Blood Oxygen Saturation 96.1 CBC/BMP Laboratory Tests 02/14/19 13:49 Microbiology Microbiology 02/14/19 Blood Culture, Received Pending 02/14/19 Blood Culture, Received Pending Home Medications Scheduled Apixaban (Eliquis) 2.5 Mg Tab, 2.5 MG PO BID Aspirin (Aspir 81) 81 Mg Tab, 81 MG PO DAILY Atenolol (Atenolol) 100 Mg Tablet, 100 MG PO BID Budesonide/Formoterol (Symbicort 160-4.5 Mcg Inhaler) 60 Puff/Inhaler Aers, 2 PUFFS INH BID Diltiazem HCl (Cardizem) 120 Mg Tablet, 60 MG PO TID Fenofibrate (Fenofibrate) 160 Mg Tab, 160 MG PO QHS Finasteride (Finasteride) 5 Mg Tab, 5 MG PO QHS Magnesium Oxide (Magnesium Oxide) 400 Mg Tablet, 400 MG PO BID [place]-3 Fatty Acids/Fish Oil (Fish Oil 1,200 mg Softgel) 1 Each Capsule, 1 CAP PO BID Omeprazole (Omeprazole) 40 Mg Cap, 40 MG PO DAILY Polyethylene Glycol 3350 (Miralax) 119 Gm Powder, 17 GRAM PO DAILY for constipation dissolve in water Potassium Chloride (Potassium Chloride) 10 Meq Tab.er.prt, 10 MEQ PO DAILY Prednisone (Prednisone) 5 Mg Tab, 5 MG PO DAILY Prednisone (Prednisone) 5 Mg Tablet, 2.5 MG PO QHS Tamsulosin Hcl (Tamsulosin HCl) 0.4 Mg Capsule, 0.4 MG PO DAILY Torsemide (Torsemide) 10 Mg Tablet, 10 MG PO DAILY Scheduled PRN Acetaminophen (Acetaminophen) 500 Mg Tablet, 1,000 MG PO Q8H PRN for PAIN Levalbuterol Hydrochloride (Xopenex Hfa) 45 Mcg/Act Aer, 2 PUFF INH Q4H PRN for SOB/WHEEZING Ropinirole HCl (Ropinirole HCl) 0.25 Mg Tablet, 0.25 MG PO QPM PRN for RESTLESSNESS Tramadol HCl (Tramadol HCl) 50 Mg Tab, 50 MG PO TID PRN for PAIN Allergies Coded Allergies: azithromycin (Verified Allergy, Unknown, 02/14/19) clarithromycin (Verified Allergy, Unknown, 02/14/19) fluconazole (Verified Allergy, Unknown, 02/14/19) fluticasone (Verified Allergy, Unknown, 02/14/19) metformin (Verified Allergy, Unknown, 02/14/19) procaine (Verified Allergy, Unknown, 02/14/19) A-FIB/CHADSVASC A-FIB History Current/History of A-Fib/PAF?: Yes Current PO Anticoag Therapy: Yes MARIA MAURER MD Feb 14, 2019 16:02
[2019-02-14] MEDS ORDERED: traMADol 50 MG TAB PO PRN (16:15)
[2019-02-14] MEDS: ONDANSETRON 4MG/2ML VIAL (J2405) IV PRN (17:38)
[2019-02-14] MEDS: ASPIRIN 81 MG ENTERIC TAB PO SCH (19:07)
[2019-02-14] MEDS: APIXABAN 2.5 MG TAB (ELIQUIS) PO SCH (21:09)
[2019-02-14] MEDS: ATENOLOL 50 MG TAB PO SCH (21:09)
[2019-02-14] MEDS: MAGNESIUM OXIDE 400 MG TAB (MAG-OX) PO SCH (21:10)
[2019-02-14] MEDS: FINASTERIDE 5 MG TAB PO SCH (21:10)
[2019-02-14] MEDS: SYMBICORT 160/4.5MCG INHALER 6GM INH SCH (21:29)
[2019-02-14] MEDS: predniSONE 2.5 MG TAB PO SCH (22:14)
[2019-02-14] MEDS: PIPERACILLIN/TAZOBACTAM SOD 3.375 GM in D5W MINI-BAG PLUS 50 ML IV SCH (22:14)
[2019-02-15] VITALS (8 sets, daily range): BP systolic 95–133; BP diastolic 54–65
[2019-02-15] MEDS: PIPERACILLIN/TAZOBACTAM SOD 3.375 GM in D5W MINI-BAG PLUS 50 ML IV SCH ×4 (05:32→22:30)
--- NOTE | 2019-02-15 06:48 | REP ---
Chest x-ray: Two views. History: Shortness of breath and cough. Comparison study: May 18, 2018. Findings: Monitoring electrodes are seen. A bipolar pacemaker is noted in the right heart via the left side as before. The lungs are hyperinflated. Pleural angles are sharp. There are increased markings posteriorly overlying the spine on the lateral view consistent with a lower lobe infiltrate. This is felt to be left-sided based on the frontal view. Right lung is clear. Emphysematous changes are seen in the upper lobes. The aorta is calcific. No significant bony abnormality is seen. Impression: Left lower lobe infiltrate consistent with pneumonia. Electronically Signed by Miller El MD 02/15/2019 08:36 A
[2019-02-15 07:40] LABS: HEMATOCRIT 28.5 % (42.0-52.0); HEMOGLOBIN 9.1 g/dl (13.5-17.5); MEAN CORPUSCULAR HEMOGLOBIN 30.2 pg (27.0-33.0); MEAN CORPUSCULAR HGB CONC 31.9 g/dl (32.0-36.5); MEAN CORPUSCULAR VOLUME 94.7 fl (80.0-96.0); PLATELET COUNT, AUTOMATED 141 10^3/uL (150-450); RED BLOOD COUNT 3.01 10^6/uL (4.30-6.10); WHITE BLOOD COUNT 10.1 10^3/uL (4.0-10.0)
[2019-02-15 08:04] LABS: CALCIUM LEVEL 8.8 MG/DL (8.8-10.2); CREATININE FOR GFR 1.61 MG/DL (0.70-1.30); GLOMERULAR FILTRATION RATE 43.7 (>35); POTASSIUM SERUM 3.5 MEQ/L (3.5-5.1)
[2019-02-15] MEDS: ASPIRIN 81 MG ENTERIC TAB PO SCH ×2 (09:00→09:12)
[2019-02-15] MEDS: VANCOMYCIN HCL 1,000 MG, VIAL MATE ADAPTER 1 EACH in D5W 250 ML IV SCH (09:10)
[2019-02-15] MEDS: TORSEMIDE 10 MG TABLET PO SCH (09:11)
[2019-02-15] MEDS: POTASSIUM CHLORIDE 10 MEQ SR TABLET PO SCH (09:11)
[2019-02-15] MEDS: APIXABAN 2.5 MG TAB (ELIQUIS) PO SCH ×2 (09:11→20:27)
[2019-02-15] MEDS: ATENOLOL 50 MG TAB PO SCH ×2 (09:11→20:27)
[2019-02-15] MEDS: predniSONE 5 MG TAB PO SCH (09:12)
[2019-02-15] MEDS: OMEPRAZOLE 20 MG CAP PO SCH (09:12)
[2019-02-15] MEDS: MAGNESIUM OXIDE 400 MG TAB (MAG-OX) PO SCH ×2 (09:12→20:25)
[2019-02-15] MEDS: TAMSULOSIN 0.4 MG CAP PO SCH (09:12)
[2019-02-15] MEDS: SYMBICORT 160/4.5MCG INHALER 6GM INH SCH ×2 (09:54→21:02)
--- NOTE | 2019-02-15 10:45 | IPNPDOC ---
Date Seen The patient was seen on 02/15/19. Progress Note SUBJECTIVE: Patient thought that he felt better this morning but now he is not so sure after started coughing again. Feels nauseous and does not have an appetite. Afebrile overnight. WBC 18->10 today. OBJECTIVE PHYSICAL EXAMINATION: General: mild distress, Alert Eyes: Normal sclera, EOMI, CARMELA HENT: Atraumatic Cardiovascular: Normal rate, normal rhythm. Pulmonary: LLL crackle, no wheezing GI: Soft, nontender, nondistended Skin: Warm and dry Neuro: CN grossly intact. No focal deficits. Strengths equal b/l. Psych: oriented x 3 LABORATORY DATA: See below. IMAGING: CXR- pending official read. MICROBIOLOGY: Please see below. ASSESSMENT AND PLAN: 1. Pneumonia suspecting HAP - Increase in productive cough with LLL infiltrate, will treat for HAP given recent hospitalization. - WBC 18.9 on presentation, trending down. - c/w Vancomycin and Zosyn. - O2 support as needed. - Obtain sputum culture. f/u blood cultures. 2. COPD - 2L home O2. Does not appear to be in exacerbation. no evidence of wheezing. - Duonebs PRN. 3. HTN - Resume home meds. 4. Afib - s/p ablation x2 with pacemaker. - c/w home meds. Eliquis for AC. 5. DEVAN - Likely hypovolemic due to decrease oral intake. - Start on IVF maintenance support. DVT ppx: eliquis Code status: Full code VS, I&O, 24H, Fishbone Vital Signs/I&O Vital Signs Date Time Temp Pulse Resp B/P (MAP) Pulse Ox O2 Delivery O2 Flow Rate FiO2 02/15/19 09:14 18 02/15/19 09:11 109/56 02/15/19 08:00 99.4 69 98 Nasal Cannula 2.0 02/15/19 03:00 97 I&O- Last 24 Hours up to 6 AM 02/15/19 06:00 Intake Total 150 ml Output Total 0 ml Balance 150 ml Laboratory Data 24H LABS Laboratory Tests 2 02/14/19 13:49: Immature Granulocyte % (Auto) 2.3, Neutrophils (%) (Auto) 76.8H, Lymphocytes (%) (Auto) 4.6L, Monocytes (%) (Auto) 15.8H, Eosinophils (%) (Auto) 0.2, Basophils (%) (Auto) 0.3, Neutrophils # (Auto) 14.6H, Lymphocytes # (Auto) 0.9L, Monocytes # (Auto) 3.0H, Eosinophils # (Auto) 0.0, Basophils # (Auto) 0.1, Nucleated Red Blood Cells % (auto) 0.0, Prothrombin Time 15.6H, Prothromb Time International Ratio 1.27, Activated Partial Thromboplast Time 36.3, Anion Gap 6L, Glomerular Filtration Rate 41.1, Calcium Level 8.7L, Total Bilirubin 0.8, Direct Bilirubin 0.3H, Aspartate Amino Transf (AST/SGOT) 16, Alanine Aminotransferase (ALT/SGPT) 17, Alkaline Phosphatase 39L, Total Creatine Kinase 22L, Creatine Kinase MB < 1.0, Creatine Kinase MB Relative Index 4.55H, Troponin I < 0.02, Total Protein 5.7L, Albumin 2.8L, Albumin/Globulin Ratio 0.97L, Thyroid Stimulating Hormone (TSH) 0.930, Free Thyroxine 1.44, Influenza Type A (RT-PCR) NEGATIVE, Influenza Type B (RT-PCR) NEGATIVE 02/14/19 14:04: Blood Gas Bicarbonate Standard 28.4H, Arterial Blood pH 7.453H, Arterial Blood Partial Pressure CO2 42.1, Arterial Blood Partial Pressure O2 82.2, Arterial Blood Total CO2 30.1, Arterial Blood HCO3 28.8H, Arterial Blood Base Excess 4.4H, Arterial Blood Oxygen Saturation 96.1 02/15/19 07:14: Nucleated Red Blood Cells % (auto) 0.0, Anion Gap 4L, Glomerular Filtration Rate 43.7, Calcium Level 8.8 02/15/19 10:11: CBC/BMP Laboratory Tests 02/14/19 13:49 02/15/19 07:14 Microbiology Microbiology 02/14/19 Gram Stain, Received Pending 02/14/19 Sputum Culture, Received Pending 02/14/19 Blood Culture, Received Pending 02/14/19 Blood Culture, Received Pending MARIA MAURER MD Feb 15, 2019 10:45
[2019-02-15] MEDS: NS 1,000 ML IV SCH (12:11)
--- NOTE | 2019-02-15 17:51 | ECGEPIP ---
[facility] - ED Test Date: 2019-02-14 Pat Name: MARCY LEE Department: Room: - Gender: Male Section Weaver: MARIBEL : 1935 Requested By: MILLIE Rose Order Number: [id number] Reading MD: Estrellita Durand Measurements Intervals [place] Rate: 69 P: -59 IA: 304 QRS: -8 QRSD: 88 T: 47 QT: 379 QTc: 409 Interpretive Statements ELECTRONIC ATRIAL PACEMAKER NONSPECIFIC ST & T-WAVE ABNORMALITY ABNORMAL RHYTHM ECG SIMILAR 08/24/17 Electronically Signed on 02-15-2019 17:50:49 EST by Estrellita Durand
[2019-02-15] MEDS: FINASTERIDE 5 MG TAB PO SCH (20:28)
[2019-02-15] MEDS: predniSONE 2.5 MG TAB PO SCH (22:30)
[2019-02-16] VITALS (7 sets, daily range): BP systolic 109–138; BP diastolic 60–73
[2019-02-16] MEDS: ONDANSETRON 4MG/2ML VIAL (J2405) IV PRN ×2 (02:23→08:34)
[2019-02-16] MEDS: VANCOMYCIN HCL 1,000 MG, VIAL MATE ADAPTER 1 EACH in D5W 250 ML IV SCH ×2 (02:23→21:17)
[2019-02-16] MEDS: NS 1,000 ML IV SCH (02:23)
[2019-02-16] MEDS: rOPINIRole 0.25 MG TAB(REQUIP) PO PRN ×2 (02:23→21:15)
[2019-02-16] MEDS: PIPERACILLIN/TAZOBACTAM SOD 3.375 GM in D5W MINI-BAG PLUS 50 ML IV SCH ×4 (04:55→23:46)
[2019-02-16 05:57] LABS: HEMATOCRIT 27.3 % (42.0-52.0); HEMOGLOBIN 8.7 g/dl (13.5-17.5); MEAN CORPUSCULAR HEMOGLOBIN 29.9 pg (27.0-33.0); MEAN CORPUSCULAR HGB CONC 31.9 g/dl (32.0-36.5); MEAN CORPUSCULAR VOLUME 93.8 fl (80.0-96.0); PLATELET COUNT, AUTOMATED 140 10^3/uL (150-450); RED BLOOD COUNT 2.91 10^6/uL (4.30-6.10); WHITE BLOOD COUNT 8.4 10^3/uL (4.0-10.0)
[2019-02-16 06:19] LABS: CALCIUM LEVEL 8.5 MG/DL (8.8-10.2); CREATININE FOR GFR 1.58 MG/DL (0.70-1.30); GLOMERULAR FILTRATION RATE 44.7 (>35); POTASSIUM SERUM 3.8 MEQ/L (3.5-5.1)
[2019-02-16] MEDS: predniSONE 5 MG TAB PO SCH (08:21)
[2019-02-16] MEDS: ASPIRIN 81 MG ENTERIC TAB PO SCH (08:21)
[2019-02-16] MEDS: OMEPRAZOLE 20 MG CAP PO SCH (08:21)
[2019-02-16] MEDS: POTASSIUM CHLORIDE 10 MEQ SR TABLET PO SCH (08:22)
[2019-02-16] MEDS: ATENOLOL 50 MG TAB PO SCH ×2 (08:22→21:15)
[2019-02-16] MEDS: MAGNESIUM OXIDE 400 MG TAB (MAG-OX) PO SCH ×2 (08:22→21:15)
[2019-02-16] MEDS: APIXABAN 2.5 MG TAB (ELIQUIS) PO SCH ×2 (08:22→21:16)
[2019-02-16] MEDS: TAMSULOSIN 0.4 MG CAP PO SCH (08:23)
[2019-02-16] MEDS: TORSEMIDE 10 MG TABLET PO SCH (08:23)
[2019-02-16] MEDS: SYMBICORT 160/4.5MCG INHALER 6GM INH SCH ×2 (09:14→20:17)
--- NOTE | 2019-02-16 18:20 | IPNPDOC ---
Date Seen The patient was seen on 02/16/19. Progress Note SUBJECTIVE: Patient was found sitting up, stating that he does feel better. States that he is SOB but not as severe. Afebrile overnight, WBC 10->8.4. OBJECTIVE PHYSICAL EXAMINATION: General: mild distress, Alert Eyes: Normal sclera, EOMI, CARMELA HENT: Atraumatic Cardiovascular: Normal rate, normal rhythm. Pulmonary: LLL crackle, no wheezing GI: Soft, nontender, nondistended Skin: Warm and dry Neuro: CN grossly intact. No focal deficits. Strengths equal b/l. Psych: oriented x 3 LABORATORY DATA: See below. IMAGING: CXR- Left lower lobe infiltrate consistent with pneumonia. MICROBIOLOGY: Please see below. ASSESSMENT AND PLAN: 1. Pneumonia suspecting HAP - Increase in productive cough with LLL infiltrate, will treat for HAP given recent hospitalization. - WBC 18.9 on presentation, trending down. - c/w Vancomycin and Zosyn. - O2 support as needed. - Obtain sputum culture. f/u blood cultures. 2. COPD - 2L home O2. Does not appear to be in exacerbation. no evidence of wheezing. - Duonebs PRN. 3. HTN - Resume home meds. 4. Afib - s/p ablation x2 with pacemaker. - c/w home meds. Eliquis for AC. 5. DEVAN - Likely hypovolemic due to decrease oral intake. - Start on IVF maintenance support. DVT ppx: eliquis Code status: Full code VS, I&O, 24H, Fishbone Vital Signs/I&O Vital Signs Date Time Temp Pulse Resp B/P (MAP) Pulse Ox O2 Delivery O2 Flow Rate FiO2 02/16/19 16:00 2.0 02/16/19 15:45 97.5 71 18 130/66 (87) 99 Nasal Cannula 02/15/19 03:00 97 I&O- Last 24 Hours up to 6 AM 02/16/19 06:00 Intake Total 2145 ml Output Total 1065 ml Balance 1080 ml Laboratory Data 24H LABS Laboratory Tests 2 02/16/19 05:43: Nucleated Red Blood Cells % (auto) 0.0, Anion Gap 3L, Glomerular Filtration Rate 44.7, Calcium Level 8.5L CBC/BMP Laboratory Tests 02/16/19 05:43 Microbiology Microbiology 02/14/19 Gram Stain - Final, Resulted 02/14/19 Sputum Culture, Resulted Pending 02/14/19 Blood Culture - Preliminary, Resulted No Growth after 48 hours. All Specime... 02/14/19 Blood Culture - Preliminary, Resulted No Growth after 48 hours. All Specime... MARIA MAURER MD Feb 16, 2019 18:20
[2019-02-16] MEDS: predniSONE 2.5 MG TAB PO SCH (21:14)
[2019-02-16] MEDS: FINASTERIDE 5 MG TAB PO SCH (21:16)
[2019-02-17 04:00] VITALS: BP 127/69
[2019-02-17] MEDS: PIPERACILLIN/TAZOBACTAM SOD 3.375 GM in D5W MINI-BAG PLUS 50 ML IV SCH (04:36)
[2019-02-17 05:57] LABS: HEMATOCRIT 26.6 % (42.0-52.0); HEMOGLOBIN 8.4 g/dl (13.5-17.5); MEAN CORPUSCULAR HEMOGLOBIN 29.7 pg (27.0-33.0); MEAN CORPUSCULAR HGB CONC 31.6 g/dl (32.0-36.5); PLATELET COUNT, AUTOMATED 147 10^3/uL (150-450); RED BLOOD COUNT 2.83 10^6/uL (4.30-6.10); WHITE BLOOD COUNT 6.7 10^3/uL (4.0-10.0)
[2019-02-17 06:10] LABS: CALCIUM LEVEL 8.4 MG/DL (8.8-10.2); CREATININE FOR GFR 1.5 MG/DL (0.70-1.30); GLOMERULAR FILTRATION RATE 47.5 (>35); POTASSIUM SERUM 3.7 MEQ/L (3.5-5.1)
[2019-02-17] MEDS: SYMBICORT 160/4.5MCG INHALER 6GM INH SCH ×2 (07:42→20:12)
[2019-02-17 08:00] VITALS: BP 137/68
[2019-02-17] MEDS: MAGNESIUM OXIDE 400 MG TAB (MAG-OX) PO SCH ×2 (08:21→21:00)
[2019-02-17] MEDS: ASPIRIN 81 MG ENTERIC TAB PO SCH (08:21)
[2019-02-17] MEDS: ATENOLOL 50 MG TAB PO SCH ×2 (08:23→21:01)
[2019-02-17] MEDS: TAMSULOSIN 0.4 MG CAP PO SCH (08:23)
[2019-02-17] MEDS: TORSEMIDE 10 MG TABLET PO SCH (08:23)
[2019-02-17] MEDS: predniSONE 5 MG TAB PO SCH (08:23)
[2019-02-17] MEDS: OMEPRAZOLE 20 MG CAP PO SCH (08:23)
[2019-02-17] MEDS: APIXABAN 2.5 MG TAB (ELIQUIS) PO SCH ×2 (08:24→21:00)
[2019-02-17] MEDS: POTASSIUM CHLORIDE 10 MEQ SR TABLET PO SCH (08:24)
[2019-02-17] MEDS: ONDANSETRON 4MG/2ML VIAL (J2405) IV PRN (10:12)
[2019-02-17 12:00] VITALS: BP 139/70
[2019-02-17] MEDS: AUGMENTIN 875 MG TAB PO SCH ×2 (12:40→21:00)
--- NOTE | 2019-02-17 13:49 | IPNPDOC ---
Date Seen The patient was seen on 02/17/19. Progress Note SUBJECTIVE: Patient reports feeling better today but has some loose stool. Has been ambulating well with PT. Saturating well on 2L NC. OBJECTIVE PHYSICAL EXAMINATION: General: no acute distress, Alert Eyes: Normal sclera, EOMI, CARMELA HENT: Atraumatic Cardiovascular: Normal rate, normal rhythm. Pulmonary: LLL crackle, no wheezing GI: Soft, nontender, nondistended Skin: Warm and dry Neuro: CN grossly intact. No focal deficits. Strengths equal b/l. Psych: oriented x 3 LABORATORY DATA: See below. IMAGING: CXR- Left lower lobe infiltrate consistent with pneumonia. MICROBIOLOGY: Please see below. ASSESSMENT AND PLAN: 1. Pneumonia suspecting HAP - Increase in productive cough with LLL infiltrate, will treat for HAP given recent hospitalization. - WBC 18.9 on presentation, trending down. - Antibiotics changed to Augmentin. Sputum culture + Moraxella and strep pneumo - O2 support as needed. - Blood cultures negative to date. - D/c in AM. Pending rest of sensitivities. 2. COPD - 2L home O2. Does not appear to be in exacerbation. no evidence of wheezing. - Duonebs PRN. 3. HTN - Resume home meds. 4. Afib - s/p ablation x2 with pacemaker. - c/w home meds. Eliquis for AC. 5. DEVAN - Likely hypovolemic due to decrease oral intake. - Start on IVF maintenance support. DVT ppx: eliquis Code status: Full code VS, I&O, 24H, Fishbone Vital Signs/I&O Vital Signs Date Time Temp Pulse Resp B/P (MAP) Pulse Ox O2 Delivery O2 Flow Rate FiO2 02/17/19 12:00 97.4 70 18 139/70 (93) 99 Nasal Cannula 2.0 02/15/19 03:00 97 I&O- Last 24 Hours up to 6 AM 02/17/19 06:00 Intake Total 1105 ml Output Total 800 ml Balance 305 ml Laboratory Data 24H LABS Laboratory Tests 2 02/16/19 19:54: Vancomycin Level Trough 14.5 02/17/19 05:30: Nucleated Red Blood Cells % (auto) 0.0, Anion Gap 4L, Glomerular Filtration Rate 47.5, Calcium Level 8.4L CBC/BMP Laboratory Tests 02/17/19 05:30 Microbiology Microbiology 02/14/19 Gram Stain - Final, Complete 02/14/19 Sputum Culture - Final, Complete Streptococcus Pneumoniae Moraxella Catarrhalis 02/14/19 Blood Culture - Preliminary, Resulted No Growth after 48 hours. All Specime... 02/14/19 Blood Culture - Preliminary, Resulted No Growth after 48 hours. All Specime... MARIA MAURER MD Feb 17, 2019 13:49
[2019-02-17 20:00] VITALS: BP 128/70
[2019-02-17] MEDS: rOPINIRole 0.25 MG TAB(REQUIP) PO PRN (21:00)
[2019-02-17] MEDS: predniSONE 2.5 MG TAB PO SCH (21:00)
[2019-02-17] MEDS: FINASTERIDE 5 MG TAB PO SCH (21:02)
[2019-02-18] VITALS: BP 135/74
[2019-02-18 04:00] VITALS: BP 125/69
[2019-02-18 05:20] LABS: HEMOGLOBIN 9.3 g/dl (13.5-17.5); MEAN CORPUSCULAR HEMOGLOBIN 29.4 pg (27.0-33.0); MEAN CORPUSCULAR VOLUME 94.9 fl (80.0-96.0); PLATELET COUNT, AUTOMATED 169 10^3/uL (150-450); RED BLOOD COUNT 3.16 10^6/uL (4.30-6.10); WHITE BLOOD COUNT 6.7 10^3/uL (4.0-10.0)
[2019-02-18 05:45] LABS: CALCIUM LEVEL 8.4 MG/DL (8.8-10.2); CREATININE FOR GFR 1.44 MG/DL (0.70-1.30); GLOMERULAR FILTRATION RATE 49.8 (>35)
[2019-02-18 08:00] VITALS: BP 130/72
[2019-02-18] MEDS: SYMBICORT 160/4.5MCG INHALER 6GM INH SCH (08:04)
[2019-02-18] MEDS: MAGNESIUM OXIDE 400 MG TAB (MAG-OX) PO SCH (09:05)
[2019-02-18] MEDS: TAMSULOSIN 0.4 MG CAP PO SCH (09:05)
[2019-02-18 09:06] VITALS: BP 130/72
[2019-02-18] MEDS: TORSEMIDE 10 MG TABLET PO SCH (09:06)
[2019-02-18] MEDS: POTASSIUM CHLORIDE 10 MEQ SR TABLET PO SCH (09:06)
[2019-02-18] MEDS: ASPIRIN 81 MG ENTERIC TAB PO SCH (09:06)
[2019-02-18] MEDS: AUGMENTIN 875 MG TAB PO SCH (09:06)
[2019-02-18] MEDS: predniSONE 5 MG TAB PO SCH (09:06)
[2019-02-18] MEDS: OMEPRAZOLE 20 MG CAP PO SCH (09:06)
[2019-02-18] MEDS: APIXABAN 2.5 MG TAB (ELIQUIS) PO SCH (09:06)
[2019-02-18] MEDS: ATENOLOL 50 MG TAB PO SCH (09:07)
[2019-02-18 12:00] VITALS: BP 100/60
[2019-02-18] MEDS ORDERED: AMOX875T2 PO (12:01)
--- NOTE | 2019-02-18 12:33 | DS.PDOC ---
Discharge Summary General Date of Admission Feb 14, 2019 at 15:50 Date of Discharge 02/18/19 Discharge Summary PROCEDURES PERFORMED DURING STAY: [None]. ADMITTING DIAGNOSES: 1. HAP 2. COPD 3. HTN 4. Afib DISCHARGE DIAGNOSES: 1. HAP 2. COPD 3. HTN 4. Afib COMPLICATIONS/CHIEF COMPLAINT: Pneumonia. HISTORY OF PRESENT ILLNESS: "Patient is a 83M with PMH COPD on 2L home O2, Afib s/p pacemaker and ablation x2 on eliquis, HTN, HLD presented to the ER with complaints of worsening cough for the past week. Patient stated that he had a mild cough started about one week ago along with other URI symptoms including runny nose and productive cough. Symptoms progressively got worse and he became SOB last night. He had some nausea today but otherwise denies any chest pain, fever, chills, abdominal discomfort. Of note, he was hospitalized several weeks ago for an ablation procedure with cardiology and had felt well after the procedure." HOSPITAL COURSE: Patient was started on broad spectrum antibiotics for for HAP given recent hospital admission, was transitioned to PO antibiotics after sputum cultures result with S. pneumo and moraxella. Symptoms had improved significantly and patient now offered no complaints and ambulate freely. To discharge patient on PO antibiotics to complete course and to follow up with PMD. DISCHARGE MEDICATIONS: Please see below. ALLERGIES: Please see below. PHYSICAL EXAMINATION ON DISCHARGE: VITAL SIGNS: Please see below. General: No acute distress, Alert Eyes: Normal sclera, EOMI, CARMELA HENT: Atraumatic Cardiovascular: Normal rate, normal rhythm. Pulmonary: minimal LLL crackle, no wheezing, nonlabored breathing GI: Soft, nontender, nondistended Skin: Warm and dry Neuro: CN grossly intact. No focal deficits. Strengths equal b/l. Psych: oriented x 3 LABORATORY DATA: Please see below. IMAGING: CXR- Impression: Left lower lobe infiltrate consistent with pneumonia. ACTIVITY: [As tolerated]. DIET: Regular diet DISCHARGE PLAN: Complete course of antibiotics f/u PCP within 1 week DISPOSITION: Home. DISCHARGE INSTRUCTIONS: Complete course of antibiotics f/u PCP within 1 week ITEMS TO FOLLOWUP ON ON OUTPATIENT: None DISCHARGE CONDITION: [Stable]. TIME SPENT ON DISCHARGE: 32 minutes. Vital Signs/I&Os Vital Signs Date Time Temp Pulse Resp B/P (MAP) Pulse Ox O2 Delivery O2 Flow Rate FiO2 02/18/19 12:00 97.7 69 18 100/60 (73) 97 Nasal Cannula 2.0 02/15/19 03:00 97 I&O- Last 24 Hours up to 6 AM 02/18/19 06:00 Intake Total 950 ml Output Total 425 ml Balance 525 ml Laboratory Data Labs 24H Laboratory Tests 2 02/18/19 05:08: Nucleated Red Blood Cells % (auto) 0.0, Anion Gap 1L, Glomerular Filtration Rate 49.8, Calcium Level 8.4L CBC/BMP Laboratory Tests 02/18/19 05:08 Microbiology Microbiology 02/14/19 Gram Stain - Final, Complete 02/14/19 Sputum Culture - Final, Complete Streptococcus Pneumoniae Moraxella Catarrhalis 02/14/19 Blood Culture - Preliminary, Resulted No Growth after 72 hours. All specime... 02/14/19 Blood Culture - Preliminary, Resulted No Growth after 72 hours. All specime... Discharge Medications Scheduled Amoxicillin/Potassium Clav (Amox-Clav 875-125 mg Tablet) 1 Each Tablet, 875 MG PO BID Start first dose tonight. Apixaban (Eliquis) 2.5 Mg Tab, 2.5 MG PO BID, (Reported) Aspirin (Aspir 81) 81 Mg Tab, 81 MG PO DAILY, (Reported) Atenolol (Atenolol) 100 Mg Tablet, 100 MG PO BID, (Reported) Budesonide/Formoterol (Symbicort 160-4.5 Mcg Inhaler) 60 Puff/Inhaler Aers, 2 PUFFS INH BID, (Reported) Diltiazem HCl (Cardizem) 120 Mg Tablet, 60 MG PO TID, (Reported) Fenofibrate (Fenofibrate) 160 Mg Tab, 160 MG PO QHS, (Reported) Finasteride (Finasteride) 5 Mg Tab, 5 MG PO QHS, (Reported) Magnesium Oxide (Magnesium Oxide) 400 Mg Tablet, 400 MG PO BID, (Reported) [place]-3 Fatty Acids/Fish Oil (Fish Oil 1,200 mg Softgel) 1 Each Capsule, 1 CAP PO BID, (Reported) Omeprazole (Omeprazole) 40 Mg Cap, 40 MG PO DAILY, (Reported) Polyethylene Glycol 3350 (Miralax) 119 Gm Powder, 17 GRAM PO DAILY for constipation, (Reported) dissolve in water Potassium Chloride (Potassium Chloride) 10 Meq Tab.er.prt, 10 MEQ PO DAILY, (Reported) Prednisone (Prednisone) 5 Mg Tab, 5 MG PO DAILY, (Reported) Prednisone (Prednisone) 5 Mg Tablet, 2.5 MG PO QHS, (Reported) Tamsulosin Hcl (Tamsulosin HCl) 0.4 Mg Capsule, 0.4 MG PO DAILY, (Reported) Torsemide (Torsemide) 10 Mg Tablet, 10 MG PO DAILY, (Reported) Scheduled PRN Acetaminophen (Acetaminophen) 500 Mg Tablet, 1,000 MG PO Q8H PRN for PAIN, (Reported) Levalbuterol Hydrochloride (Xopenex Hfa) 45 Mcg/Act Aer, 2 PUFF INH Q4H PRN for SOB/WHEEZING, (Reported) Ropinirole HCl (Ropinirole HCl) 0.25 Mg Tablet, 0.25 MG PO QPM PRN for RESTLESSNESS, (Reported) Tramadol HCl (Tramadol HCl) 50 Mg Tab, 50 MG PO TID PRN for PAIN, (Reported) Allergies Coded Allergies: azithromycin (Verified Allergy, Unknown, 02/14/19) clarithromycin (Verified Allergy, Unknown, 02/14/19) fluconazole (Verified Allergy, Unknown, 02/14/19) fluticasone (Verified Allergy, Unknown, 02/14/19) metformin (Verified Allergy, Unknown, 02/14/19) procaine (Verified Allergy, Unknown, 02/14/19) MARIA MAURER MD Feb 18, 2019 12:33
== END 2019-02-18 14:03 | disposition home health service (06) | DRG 178 ==
LOC: EDSEX 13:26 → EDBD 13:26 → M ED 13:26 → M ED INP 15:50 → M PCU 02-15 16:41
PROVIDERS: ADMIT Student in an Organized Health Care Education/Training Program; ATTEND Student in an Organized Health Care Education/Training Program
DX: J15.6 Pneumonia due to other Gram-negative bacteria (principal); J44.0 Chronic obstructive pulmonary disease with (acute) lower respiratory infection; I48.91 Unspecified atrial fibrillation; Z99.81 Dependence on supplemental oxygen; J13 Pneumonia due to Streptococcus pneumoniae; Z95.0 Presence of cardiac pacemaker; I10 Essential (primary) hypertension; E78.5 Hyperlipidemia, unspecified; Z87.891 Personal history of nicotine dependence; Z79.01 Long term (current) use of anticoagulants; Z79.82 Long term (current) use of aspirin; Z79.899 Other long term (current) drug therapy; Z79.52 Long term (current) use of systemic steroids; Z88.1 Allergy status to other antibiotic agents; Z88.8 Allergy status to other drugs, medicaments and biological substances; Y95 Nosocomial condition

== ENCOUNTER 2019-02-28 08:57 | Inpatient (IN) | payer MEDICARE ==
[~2019-02-28] VITALS: Ht 170.2 cm; Wt 66.7 kg
[~2019-02-28 08:57] MED LIST changes: +ACET-683 PO; +AMOX875T2 PO; +ATEN100T PO; +CARD120T4 PO; +DILT60TA PO; +MAGN400T2 PO; +MIRA3350 PO; +OMEG1CAP14 PO; +POTA10TA17 PO; +ROPI0.253 PO; +TAMS1CAP17 PO; +TORS10TA3 PO; +TORS20TA2 PO
[2019-02-28] MEDS ORDERED: ONDA4TAB5 PO (09:29)
[2019-02-28 09:50] LABS: VENOUS BASE EXCESS 5.5 (-2.0-2.0); VENOUS HCO3 32.5 MEQ/L (23.0-27.0); VENOUS O2 SATURATION 45.6 % (60.0-80.0); VENOUS PARTIAL PRESSURE CO2 60.5 mmHg (38.0-50.0); VENOUS PARTIAL PRESSURE O2 28.3 mmHg (30.0-50.0); VENOUS PH 7.348 UNITS (7.330-7.430); VENOUS STANDARD HCO3 28.4 MEQ/L; VENOUS TOTAL CO2 34.4 MEQ/L (24.0-28.0)
[2019-02-28 09:56] LABS: HEMATOCRIT 31.7 % (42.0-52.0); HEMOGLOBIN 10.1 g/dl (13.5-17.5); MEAN CORPUSCULAR HEMOGLOBIN 29.7 pg (27.0-33.0); MEAN CORPUSCULAR HGB CONC 31.9 g/dl (32.0-36.5); MEAN CORPUSCULAR VOLUME 93.2 fl (80.0-96.0); PLATELET COUNT, AUTOMATED 249 10^3/uL (150-450); WHITE BLOOD COUNT 20.2 10^3/uL (4.0-10.0)
[2019-02-28] MEDS ORDERED: PIPERACILLIN/TAZOBACTAM SOD 3.375 GM in D5W MINI-BAG PLUS 50 ML IV ONE (10:15)
--- NOTE | 2019-02-28 10:16 | REP ---
Clinical: Cough and dyspnea. Comparison: 02/14/2019. Findings: Mediastinum and cardiac silhouette are stable. Lung celis demonstrate chronic interstitial changes. Superimposed bibasilar infiltrates (right greater than left) consistent with acute multifocal pneumonia. No effusion. No pneumothorax. Skeletal structures intact. Pacemaker stable. Impression: Bibasilar infiltrates compatible with multifocal pneumonia (right greater than left). Electronically Signed by Abhilash Nieves MD 02/28/2019 10:07 A
[2019-02-28 10:24] LABS: LYMPHOCYTES 4 % (16-44); METAMYELOCYTES 1 % (0-0); MONOCYTES 17 % (0-5); NEUTROPHILS 76 % (28-66)
[2019-02-28 10:26] LABS: ANISOCYTOSIS 1+; PLATELET ESTIMATE NORMAL (NORMAL); TOXIC GRANULATION 1+
[2019-02-28 10:27] LABS: MICROCYTOSIS 1+
[2019-02-28 10:32] LABS: ALBUMIN 2.6 GM/DL (3.2-5.2); ALT/SGPT 14 U/L (12-78); BILIRUBIN,DIRECT 0.3 MG/DL (0.0-0.2); BILIRUBIN,TOTAL 0.7 MG/DL (0.2-1.0); BLOOD UREA NITROGEN 34 MG/DL (7-18); CALCIUM LEVEL 8.8 MG/DL (8.8-10.2); CARBON DIOXIDE LEVEL 37 MEQ/L (21-32); CHLORIDE LEVEL 99 MEQ/L (98-107); CK-MB VALUE MASS < 1.0 NG/ML (<3.6); CPK CREATINE PHOSPHOKINASE 12 U/L (39-308); CREATININE FOR GFR 2.24 MG/DL (0.70-1.30); GLOMERULAR FILTRATION RATE 29.9 (>35); GLUCOSE, FASTING 154 MG/DL (70-100); MB/CK RELATIVE INDEX 8.33 (< OR =4); NT-PRO BNP 952 PG/ML (<450); POTASSIUM SERUM 3.6 MEQ/L (3.5-5.1); SODIUM LEVEL 143 MEQ/L (136-145); THYROID STIMULATING HORMONE 0.647 uIU/ML (0.358-3.740); TOTAL PROTEIN 5.3 GM/DL (6.4-8.2); TROPONIN I < 0.02 NG/ML (< 0.10)
[2019-02-28] MEDS ORDERED: MAGN64TASA PO (11:07)
[2019-02-28] MEDS ORDERED: ATEN50TA2 PO (11:07)
[2019-02-28] MEDS ORDERED: POTA20TA6 PO (11:07)
[2019-02-28] MEDS ORDERED: ONDANSETRON 4MG/2ML VIAL (J2405) As Ordered ONE (11:09)
[2019-02-28] MEDS ORDERED: ONDANSETRON 4MG/2ML VIAL (J2405) IV ONE (11:15)
--- NOTE | 2019-02-28 11:23 | HPEPDOC ---
[facility] Medical History & Physical Date of Admission Feb 28, 2019 Date of Service: Feb 28, 2019 Attending Physician: ELFEGO THOMAS MD History and Physical CHIEF COMPLAINT: Nausea, vomiting, diarrhea and cough HISTORY OF PRESENT ILLNESS: 83-year-old male with past medical history of COPD on home oxygen, atrial fibrillation status post from a pacemaker 2 and watchman procedure, currently on Eliquis, hypertension and GERD presents from home with nausea, vomiting, diarrhea and worsening productive cough. Patient was admitted for pneumonia last month, discharged 2 weeks ago, reports persistence of symptoms, which have worsened over the past 48-72 hours with productive sputum, vomiting and diarrhea. Patient has had very poor oral intake because of the vomiting. He has not required additional oxygen supplementation at home during this time. He denies any sick contacts, no other complaints at this time. He denies any chest pain, headache, abdominal pain or joint pain at this time. 10 point review of system is negative except for above PAST MEDICAL HISTORY: 1. COPD. 2. Atrial fibrillation. 3. Hypertension. 4. GERD. 5. Hyperlipidemia PAST SURGICAL HISTORY: 1. Permanent pacemaker 2. 2. Ablation. 3. Watchman procedure. SOCIAL HISTORY: Ex-smoker, quit 30 years ago, smoked 1 pack per day for 37 years Denies alcohol use. Denies drug use FAMILY HISTORY: Father with history of [place] ALLERGIES: Please see below. HOME MEDICATIONS: Please see below. PHYSICAL EXAMINATION: VITAL SIGNS: Please see below. GENERAL: No distress HEENT: Normocephalic, atraumatic, moist mucous membranes NECK: Supple CARDIOVASCULAR EXAMINATION: Irregularly irregular RESPIRATORY EXAMINATION: Significantly diminished in the right lower lobe, bibasilar crackles appreciated, no wheezing ABDOMINAL EXAMINATION: Soft, nontender, nondistended, positive bowel sounds EXTREMITIES: Range of motion intact SKIN: No rash NEUROLOGICAL EXAMINATION: Alert and oriented 3, no focal deficits PSYCHIATRIC EXAMINATION: Calm and cooperative LABORATORY DATA: See below. IMAGING: Chest x-ray with infiltrates MICROBIOLOGY: Please see below. ASSESSMENT: 83-year-old male, past medical history of COPD, atrial fibrillation, hypertension and GERD who was recently admitted for pneumonia, presents with recurrent symptoms. PLAN: 1. Pneumonia. Possibly untreated, progression of previous pneumonia, CT chest to evaluate for infiltrates/empyema, broad-spectrum coverage with vancomycin and Merrem, respiratory viral panel ordered, sputum cultures pending, blood culture pending. 2. Acute kidney injury. Likely due to poor oral intake along with vomiting and diarrhea, continue IV hydration, will monitor. 3. Vomiting/diarrhea. Possibly due to antibiotics versus C. difficile, C. difficile PCR pending, IV hydration, Zofran when necessary for nausea. 4. Atrial fibrillation. Status post permanent pacemaker 2, status post ablation, status post watchman procedure Continue Eliquis for anticoagulation, continue atenolol and Cardizem for rate control. 5. Hypertension. Continue home meds. (Atenolol and Cardizem) 6. GERD. Continue home PPI 7. COPD Stable, continue home regimen. DVT prophylaxis: Eliquis GI prophylaxis: Home PPI Vital Signs Vital Signs Date Time Temp Pulse Resp B/P (MAP) Pulse Ox O2 Delivery O2 Flow Rate FiO2 02/28/19 09:17 Nasal Cannula 2.0 02/28/19 09:03 99.9 69 22 114/56 91 Laboratory Data Labs 24H Laboratory Tests 2 02/28/19 09:30: Blood Gas Bicarbonate Standard 28.4, Venous Blood pH 7.348, Venous Blood Partial Pressure CO2 60.5H, Venous Blood Partial Pressure O2 28.3L, Venous Blood Total Carbon Dioxide 34.4H, Venous Blood HCO3 32.5H, Venous Blood Oxygen Saturation 45.6L, Venous Blood Base Excess 5.5H, Lactic Acid Level 1.6 02/28/19 09:31: Immature Granulocyte % (Auto) , Monocytes # (Auto) , Nucleated Red Blood Cells % (auto) 0.0, Neutrophils 76H, Band Neutrophils 2, Lymphocytes (Manual) 4L, Monocytes (Manual) 17H, Metamyelocytes 1H, Anisocytosis 1+, Microcytosis 1+, Toxic Granulation 1+, Platelet Estimate NORMAL, Anion Gap 7L, Glomerular Filtration Rate 29.9L, Calcium Level 8.8, Total Bilirubin 0.7, Direct Bilirubin 0.3H, Aspartate Amino Transf (AST/SGOT) 12, Alanine Aminotransferase (ALT/SGPT) 14, Alkaline Phosphatase 42L, Total Creatine Kinase 12L, Creatine Kinase MB < 1.0, Creatine Kinase MB Relative Index 8.33H, Troponin I < 0.02, PO-Bfi-J-Type Natriuretic Peptide 952H, Total Protein 5.3L, Albumin 2.6L, Albumin/Globulin Ratio 0.96L, Thyroid Stimulating Hormone (TSH) 0.647 CBC/BMP Laboratory Tests 12/1/19 09:31 Microbiology Microbiology 02/28/19 Gram Stain - Final, Resulted 02/28/19 Sputum Culture, Resulted Pending 02/28/19 Blood Culture, Received Pending Home Medications Scheduled Apixaban (Eliquis) 2.5 Mg Tab, 2.5 MG PO BID Aspirin (Aspir 81) 81 Mg Tab, 81 MG PO DAILY Atenolol (Atenolol) 50 Mg Tablet, 50 MG PO TID Budesonide/Formoterol (Symbicort 160-4.5 Mcg Inhaler) 60 Puff/Inhaler Aers, 2 PUFFS INH BID Diltiazem HCl (Cardizem) 120 Mg Tablet, 60 MG PO TID Fenofibrate (Fenofibrate) 160 Mg Tab, 160 MG PO QHS Finasteride (Finasteride) 5 Mg Tab, 5 MG PO QHS Magnesium Chloride (Mag64) 64 Mg Tablet.dr, 64 MG PO QHS [place]-3 Fatty Acids/Fish Oil (Fish Oil 1,200 mg Softgel) 1 Each Capsule, 1,200 MG PO BID Omeprazole (Omeprazole) 40 Mg Cap, 40 MG PO DAILY Potassium Chloride (Potassium Chloride) 20 Meq Tab.er.prt, 20 MEQ PO DAILY Prednisone (Prednisone) 5 Mg Tab, 5 MG PO DAILY Prednisone (Prednisone) 5 Mg Tablet, 2.5 MG PO QHS Tamsulosin Hcl (Tamsulosin HCl) 0.4 Mg Capsule, 0.4 MG PO QHS Torsemide (Torsemide) 10 Mg Tablet, 10 MG PO DAILY Scheduled PRN Acetaminophen (Acetaminophen) 500 Mg Tablet, 1,000 MG PO Q8H PRN for PAIN Levalbuterol Hydrochloride (Xopenex Hfa) 45 Mcg/Act Aer, 2 PUFF INH Q4H PRN for SOB/WHEEZING Ondansetron HCl (Ondansetron HCl) 4 Mg Tablet, 4 MG PO Q8H PRN for nausea/vomiting Ropinirole HCl (Ropinirole HCl) 0.25 Mg Tablet, 0.25 MG PO QPM PRN for RESTLESSNESS Tramadol HCl (Tramadol HCl) 50 Mg Tab, 50 MG PO TID PRN for PAIN Allergies Coded Allergies: azithromycin (Verified Allergy, Unknown, 02/14/19) clarithromycin (Verified Allergy, Unknown, 02/14/19) fluconazole (Verified Allergy, Unknown, 02/14/19) fluticasone (Verified Allergy, Unknown, 02/14/19) metformin (Verified Allergy, Unknown, 02/14/19) procaine (Verified Allergy, Unknown, 02/14/19) A-FIB/CHADSVASC A-FIB History Current/History of A-Fib/PAF?: Yes Current PO Anticoag Therapy: Yes ELFEGO THOMAS MD Feb 28, 2019 11:23
[2019-02-28] MEDS ORDERED: VANCOMYCIN HCL 1,000 MG, VIAL MATE ADAPTER 1 EACH in D5W 250 ML IV ONE ×2 (11:30→14:00)
[2019-02-28] MEDS ORDERED: ACETAMINOPHEN 500 MG TAB PO PRN (11:30)
--- NOTE | 2019-02-28 11:50 | REP ---
Clinical: Pneumonia. Technique: Axial noncontrast images from the thoracic inlet to the upper abdomen with coronal and sagittal re-formations. Findings: Moderate emphysematous changes are appreciated with superimposed lower lobe consolidations. No pleural effusion. No pneumothorax. Mediastinum demonstrates atherosclerotic changes to the thoracic aorta and coronary arteries without aneurysm. Cardiomegaly and small pericardial effusion noted. Osseous structures are grossly unremarkable. Impression: Bilateral lower lobe consolidations compatible with multifocal pneumonia. No pleural effusion. Electronically Signed by Abhilash Nieves MD 02/28/2019 11:41 A
[2019-02-28 12:00] VITALS: BP 98/64
[2019-02-28] MEDS: OMEPRAZOLE 20 MG CAP PO SCH (12:29)
[2019-02-28] MEDS: NS 1,000 ML IV SCH (12:30)
[2019-02-28 16:00] VITALS: BP 108/58
[2019-02-28] MEDS: MEROPENEM INJ 500 MG in IV 1 EA IV SCH (16:04)
[2019-02-28] MEDS: SIMETHICONE 80 MG CHEW TAB PO PRN (17:10)
[2019-02-28] MEDS: atenoloL 50 MG TAB PO SCH ×2 (18:10→20:37)
[2019-02-28] MEDS: SYMBICORT 160/4.5MCG INHALER 6GM INH SCH (19:49)
[2019-02-28] MEDS: FINASTERIDE 5 MG TAB PO SCH (20:11)
[2019-02-28] MEDS: VANCOMYCIN HCL 1,000 MG, VIAL MATE ADAPTER 1 EACH in D5W 250 ML IV SCH (20:11)
[2019-02-28] MEDS: MAGNESIUM CHLORIDE 64 MG TABCR (SLO MAG) PO SCH (20:12)
[2019-02-28] MEDS: TAMSULOSIN 0.4 MG CAP PO SCH (20:12)
[2019-02-28] MEDS: APIXABAN 2.5 MG TAB (ELIQUIS) PO SCH (20:12)
[2019-02-28] MEDS: ONDANSETRON 4 MG TAB (S0181) PO PRN (20:25)
[2019-03-01] MEDS ORDERED: diphenhydrAMINE INJ 50MG/ML VIAL (J1200) IV ONE
[2019-03-01] MEDS: NS 1,000 ML IV SCH ×3 (00:02→23:23)
[2019-03-01] MEDS: MEROPENEM INJ 500 MG in IV 1 EA IV SCH ×2 (04:41→16:41)
[2019-03-01 06:00] VITALS: BP 104/58
[2019-03-01 06:19] LABS: HEMATOCRIT 25.1 % (42.0-52.0); MEAN CORPUSCULAR HEMOGLOBIN 29.8 pg (27.0-33.0); MEAN CORPUSCULAR HGB CONC 32.3 g/dl (32.0-36.5); MEAN CORPUSCULAR VOLUME 92.3 fl (80.0-96.0); PLATELET COUNT, AUTOMATED 203 10^3/uL (150-450); RED BLOOD COUNT 2.72 10^6/uL (4.30-6.10); WHITE BLOOD COUNT 10.9 10^3/uL (4.0-10.0)
[2019-03-01 06:23] LABS: HEMOGLOBIN 8.1 g/dl (13.5-17.5)
[2019-03-01 06:51] LABS: ALBUMIN 1.9 GM/DL (3.2-5.2); BILIRUBIN,TOTAL 0.6 MG/DL (0.2-1.0); CALCIUM LEVEL 8.4 MG/DL (8.8-10.2); CREATININE FOR GFR 1.75 MG/DL (0.70-1.30); GLOMERULAR FILTRATION RATE 39.7 (>35); MAGNESIUM LEVEL 1.8 MG/DL (1.8-2.4); POTASSIUM SERUM 3.2 MEQ/L (3.5-5.1); TOTAL PROTEIN 4.9 GM/DL (6.4-8.2)
[2019-03-01] MEDS: SYMBICORT 160/4.5MCG INHALER 6GM INH SCH ×2 (07:09→19:48)
--- NOTE | 2019-03-01 07:22 | ECGEPIP ---
[facility] - ED Test Date: 2019-02-28 Pat Name: MARCY LEE Department: Room: - Gender: Male Electronic Technician: raquel ewelina : 1935 Requested By: DEBBIE Neal Order Number: [id number] Reading MD: Estrellita Durand Measurements Intervals [place] Rate: 69 P: -63 DE: 278 QRS: 9 QRSD: 94 T: 42 QT: 357 QTc: 385 Interpretive Statements ELECTRONIC ATRIAL PACEMAKER NONSPECIFIC ST & T-WAVE ABNORMALITY COMPARED 02/14/19 ABNORMAL RHYTHM ECG Electronically Signed on 03-01-2019 7:22:14 EST by Estrellita Durand
[2019-03-01] MEDS ORDERED: MAG SULF 1GM/100ML (MAG RUN) 1 GM in IV 1 EA IV ONE (09:00)
[2019-03-01] MEDS: ASPIRIN 81 MG ENTERIC TAB PO SCH (09:40)
[2019-03-01] MEDS: OMEPRAZOLE 20 MG CAP PO SCH (09:40)
[2019-03-01] MEDS: atenoloL 50 MG TAB PO SCH ×3 (09:40→20:28)
[2019-03-01] MEDS: APIXABAN 2.5 MG TAB (ELIQUIS) PO SCH ×2 (09:40→20:15)
[2019-03-01] MEDS: POTASSIUM CHLORIDE 10 MEQ SR TABLET PO SCH ×2 (09:40→12:49)
[2019-03-01] MEDS: guaiFENesin ER 600 MG TAB PO SCH ×2 (11:26→20:15)
[2019-03-01 14:00] VITALS: BP 110/75
--- NOTE | 2019-03-01 19:34 | IPNPDOC ---
Date Seen The patient was seen on 03/01/19. Progress Note HISTORY OF PRESENT ILLNESS: 83-year-old male with past medical history of COPD on home oxygen, atrial fibrillation status post from a pacemaker 2 and watchman procedure, currently on Eliquis, hypertension and GERD presents from home with nausea, vomiting, diarrhea and worsening productive cough. Patient was admitted for pneumonia last month, discharged 2 weeks ago, reports persistence of symp toms, which have worsened over the past 48-72 hours with productive sputum, vomiting and diarrhea. Patient has had very poor oral intake because of the vomiting. He has not required additional oxygen supplementation at home during this time. He denies any sick contacts, no other complaints at this time. He denies any chest pain, headache, abdominal pain or joint pain at this time. 03/01/2019 Patient is to have productive cough, requesting something to help breakdown mucous, no other complaints. Respiratory viral panel positive for parainfluenza and human rhinovirus. 10 point review of system is negative except for above HOME MEDICATIONS: Please see below. PHYSICAL EXAMINATION: VITAL SIGNS: Please see below. GENERAL: No distress HEENT: Normocephalic, atraumatic, moist mucous membranes NECK: Supple CARDIOVASCULAR EXAMINATION: Irregularly irregular RESPIRATORY EXAMINATION: Significantly diminished in the right lower lobe, bibasilar crackles appreciated, no wheezing ABDOMINAL EXAMINATION: Soft, nontender, nondistended, positive bowel sounds EXTREMITIES: Range of motion intact SKIN: No rash NEUROLOGICAL EXAMINATION: Alert and oriented 3, no focal deficits PSYCHIATRIC EXAMINATION: Calm and cooperative LABORATORY DATA: See below. IMAGING: Chest x-ray with infiltrates MICROBIOLOGY: Please see below. ASSESSMENT: 83-year-old male, past medical history of COPD, atrial fibrillation, hypertension and GERD who was recently admitted for pneumonia, presents with recurrent symptoms. PLAN: 1. Viral infection with superimposed bacterial Pneumonia. Respiratory viral panel positive for parainfluenza and human rhinovirus, likely with superimposed bacterial pneumonia, continue with vancomycin and Merrem, sputum cultures pending, blood culture pending. Mucinex started 2. Acute kidney injury. Likely due to poor oral intake along with vomiting and diarrhea, improving, continue IV hydration. 3. Vomiting/diarrhea. Possibly due to antibiotics versus C. difficile, C. difficile PCR pending, IV hydration, Zofran when necessary for nausea. 4. Atrial fibrillation. Status post permanent pacemaker 2, status post ablation, status post watchman procedure Continue Eliquis for anticoagulation, continue atenolol and Cardizem for rate control. 5. Hypertension. Continue home meds. (Atenolol and Cardizem) 6. GERD. Continue home PPI 7. COPD Stable, continue home regimen. DVT prophylaxis: Eliquis GI prophylaxis: Home PPI VS, I&O, 24H, Fishbone Vital Signs/I&O Vital Signs Date Time Temp Pulse Resp B/P (MAP) Pulse Ox O2 Delivery O2 Flow Rate FiO2 03/01/19 16:41 68 112/56 03/01/19 14:00 98.0 18 100 Nasal Cannula 2.0 I&O- Last 24 Hours up to 6 AM 03/01/19 06:00 Intake Total 2320 ml Output Total 250 ml Balance 2070 ml Laboratory Data 24H LABS Laboratory Tests 2 03/01/19 05:42: Nucleated Red Blood Cells % (auto) 0.0, Anion Gap 3L, Glomerular Filtration Rate 39.7, Calcium Level 8.4L, Magnesium Level 1.8, Total Bilirubin 0.6, Aspartate Amino Transf (AST/SGOT) 10, Alanine Aminotransferase (ALT/SGPT) 9L, Alkaline Phosphatase 34L, Total Protein 4.9L, Albumin 1.9#L, Albumin/Globulin Ratio 0.63L CBC/BMP Laboratory Tests 03/01/19 05:42 Microbiology Microbiology 02/28/19 Respiratory Virus Panel (PCR) (PEG) - Final, Complete Parainfluenza 1 (Piv1) Human Rhinovirus/Enterovirus 02/28/19 Blood Culture - Preliminary, Resulted No growth after 24 hours . All specim... 02/28/19 Gram Stain - Final, Resulted 02/28/19 Sputum Culture, Resulted Pending 02/28/19 Blood Culture - Preliminary, Resulted No growth after 24 hours . All specim... ELFEGO THOMAS MD Mar 01, 2019 19:34
[2019-03-01] MEDS: VANCOMYCIN HCL 1,000 MG, VIAL MATE ADAPTER 1 EACH in D5W 250 ML IV SCH (20:13)
[2019-03-01] MEDS: MAGNESIUM CHLORIDE 64 MG TABCR (SLO MAG) PO SCH (20:14)
[2019-03-01] MEDS: FINASTERIDE 5 MG TAB PO SCH (20:15)
[2019-03-01] MEDS: TAMSULOSIN 0.4 MG CAP PO SCH (20:15)
[2019-03-01] MEDS: traMADol 50 MG TAB PO PRN (20:31)
[2019-03-01 22:00] VITALS: BP 100/50
[2019-03-01] MEDS: ONDANSETRON 4 MG TAB (S0181) PO PRN (23:23)
[2019-03-02] MEDS: MEROPENEM INJ 500 MG in IV 1 EA IV SCH ×2 (04:39→16:09)
[2019-03-02 06:00] VITALS: BP 124/64
[2019-03-02 06:19] LABS: HEMOGLOBIN 8.5 g/dl (13.5-17.5); MEAN CORPUSCULAR HEMOGLOBIN 29.3 pg (27.0-33.0); MEAN CORPUSCULAR HGB CONC 30.4 g/dl (32.0-36.5); MEAN CORPUSCULAR VOLUME 96.6 fl (80.0-96.0); PLATELET COUNT, AUTOMATED 216 10^3/uL (150-450); WHITE BLOOD COUNT 8.3 10^3/uL (4.0-10.0)
[2019-03-02 06:43] LABS: PERCENT SATURATION 9.6 % (19.7-50.0)
[2019-03-02 06:46] LABS: CALCIUM LEVEL 8.7 MG/DL (8.8-10.2); CREATININE FOR GFR 1.32 MG/DL (0.70-1.30); MAGNESIUM LEVEL 2.3 MG/DL (1.8-2.4); PHOSPHORUS LEVEL 1.9 MG/DL (2.5-4.9); POTASSIUM SERUM 4.2 MEQ/L (3.5-5.1)
[2019-03-02] MEDS: SYMBICORT 160/4.5MCG INHALER 6GM INH SCH ×2 (07:42→20:42)
[2019-03-02] MEDS: ASPIRIN 81 MG ENTERIC TAB PO SCH (08:01)
[2019-03-02] MEDS: OMEPRAZOLE 20 MG CAP PO SCH (08:02)
[2019-03-02] MEDS: atenoloL 50 MG TAB PO SCH ×3 (08:02→20:13)
[2019-03-02] MEDS: APIXABAN 2.5 MG TAB (ELIQUIS) PO SCH ×2 (08:02→20:13)
[2019-03-02] MEDS: guaiFENesin ER 600 MG TAB PO SCH ×2 (08:02→20:13)
[2019-03-02] MEDS: SODIUM CHLORIDE NASAL 0.65% SPRAY BTL (OCEAN) PRN ×3 (08:03→16:11)
[2019-03-02] MEDS: traMADol 50 MG TAB PO PRN ×2 (08:03→16:51)
[2019-03-02] MEDS: ONDANSETRON 4 MG TAB (S0181) PO PRN (08:12)
[2019-03-02] MEDS: NS 1,000 ML IV SCH ×3 (08:12→18:45)
[2019-03-02] MEDS: K-PHOS NEUTRAL 250MG TABLET (SOD.PHOSPHATE/POT.PHOSPHATE) PO SCH ×4 (09:00→20:12)
[2019-03-02 14:00] VITALS: BP 125/64
[2019-03-02] MEDS: SODIUM CHLORIDE HYPERTONIC 3% 15ML NEB SOL INH SCH ×2 (14:23→20:00)
[2019-03-02] MEDS: ONDANSETRON 4MG/2ML VIAL (J2405) IV PRN (16:06)
[2019-03-02] MEDS: SIMETHICONE 80 MG CHEW TAB PO PRN (17:56)
--- NOTE | 2019-03-02 18:13 | IPNPDOC ---
Date Seen The patient was seen on 03/02/19. Progress Note HISTORY OF PRESENT ILLNESS: 83-year-old male with past medical history of COPD on home oxygen, atrial fibrillation status post from a pacemaker 2 and watchman procedure, currently on Eliquis, hypertension and GERD presents from home with nausea, vomiting, diarrhea and worsening productive cough. Patient was admitted for pneumonia last month, discharged 2 weeks ago, reports persistence of symp toms, which have worsened over the past 48-72 hours with productive sputum, vomiting and diarrhea. Patient has had very poor oral intake because of the vomiting. He has not required additional oxygen supplementation at home during this time. He denies any sick contacts, no other complaints at this time. He denies any chest pain, headache, abdominal pain or joint pain at this time. 03/01/2019 Patient is to have productive cough, requesting something to help breakdown mucous, no other complaints. Respiratory viral panel positive for parainfluenza and human rhinovirus. 03/02/2019 Patient is to have productive cough, reports slight improvement in dyspnea, no other complaints. 10 point review of system is negative except for above HOME MEDICATIONS: Please see below. PHYSICAL EXAMINATION: VITAL SIGNS: Please see below. GENERAL: No distress HEENT: Normocephalic, atraumatic, moist mucous membranes NECK: Supple CARDIOVASCULAR EXAMINATION: Irregularly irregular RESPIRATORY EXAMINATION: Significantly diminished in the right lower lobe, bibasilar crackles appreciated, no wheezing ABDOMINAL EXAMINATION: Soft, nontender, nondistended, positive bowel sounds EXTREMITIES: Range of motion intact SKIN: No rash NEUROLOGICAL EXAMINATION: Alert and oriented 3, no focal deficits PSYCHIATRIC EXAMINATION: Calm and cooperative LABORATORY DATA: See below. IMAGING: Chest x-ray with infiltrates MICROBIOLOGY: Please see below. ASSESSMENT: 83-year-old male, past medical history of COPD, atrial fibrillation, hypertension and GERD who was recently admitted for pneumonia, presents with recurrent symptoms. PLAN: 1. Viral infection with superimposed bacterial Pneumonia. Respiratory viral panel positive for parainfluenza and human rhinovirus, likely with superimposed bacterial pneumonia, continue with vancomycin and Merrem, sputum cultures grew Haemophilus influenza, blood culture pending. Continue Mucinex and hypertonic saline nebs. Will likely downgrade antibiotics tomorrow. 2. Acute kidney injury. Likely due to poor oral intake along with vomiting and diarrhea, improving, continue IV hydration. 3. Atrial fibrillation. Status post permanent pacemaker 2, status post ablation, status post watchman procedure Continue Eliquis for anticoagulation, continue atenolol and Cardizem for rate control. 4. Hypertension. Continue home meds. (Atenolol and Cardizem) 5. GERD. Continue home PPI 6. COPD Stable, continue home regimen. DVT prophylaxis: Eliquis GI prophylaxis: Home PPI VS, I&O, 24H, Fishbone Vital Signs/I&O Vital Signs Date Time Temp Pulse Resp B/P (MAP) Pulse Ox O2 Delivery O2 Flow Rate FiO2 03/02/19 17:21 18 Nasal Cannula 3.0 03/02/19 16:10 75 132/56 03/02/19 14:00 97.5 97 I&O- Last 24 Hours up to 6 AM 03/02/19 06:00 Intake Total 3156 ml Output Total 1250 ml Balance 1906 ml Laboratory Data 24H LABS Laboratory Tests 2 03/02/19 05:24: Nucleated Red Blood Cells % (auto) 0.0, Anion Gap 4L, Glomerular Filtration Rate 55.0, Calcium Level 8.7L, Phosphorus Level 1.9L, Magnesium Level 2.3, Iron Level 14L, Total Iron Binding Capacity 146L, Transferrin % Saturation 9.6L, Ferritin 549H, Vitamin B12 Level 487, Random Vancomycin Level 20.0 CBC/BMP Laboratory Tests 03/02/19 05:24 Microbiology Microbiology 02/28/19 Respiratory Virus Panel (PCR) (PEG) - Final, Complete Parainfluenza 1 (Piv1) Human Rhinovirus/Enterovirus 02/28/19 Blood Culture - Preliminary, Resulted No Growth after 48 hours. All Specime... 02/28/19 Gram Stain - Final, Resulted 02/28/19 Sputum Culture - Preliminary, Resulted Haemophilus Influenzae 02/28/19 Blood Culture - Preliminary, Resulted No Growth after 48 hours. All Specime... ELFEGO THOMAS MD Mar 02, 2019 18:13
[2019-03-02] MEDS: VANCOMYCIN HCL 1,000 MG, VIAL MATE ADAPTER 1 EACH in D5W 250 ML IV SCH (20:11)
[2019-03-02] MEDS: FINASTERIDE 5 MG TAB PO SCH (20:12)
[2019-03-02] MEDS: MAGNESIUM CHLORIDE 64 MG TABCR (SLO MAG) PO SCH (20:12)
[2019-03-02] MEDS: TAMSULOSIN 0.4 MG CAP PO SCH (20:15)
[2019-03-02 22:00] VITALS: BP 116/58
[2019-03-03] MEDS: SODIUM CHLORIDE NASAL 0.65% SPRAY BTL (OCEAN) PRN (01:09)
[2019-03-03] MEDS: SODIUM CHLORIDE HYPERTONIC 3% 15ML NEB SOL INH SCH ×4 (01:37→19:49)
[2019-03-03] MEDS: IPRATROPIUM 0.5MG/ALBUTEROL 2.5MG INH SOL UD 3ML (DUONEB)(J7620) NEB PRN ×3 (01:38→13:27)
[2019-03-03] MEDS: MEROPENEM INJ 500 MG in IV 1 EA IV SCH (04:19)
[2019-03-03 06:00] VITALS: BP 124/63
[2019-03-03] MEDS: NS 1,000 ML IV SCH (07:11)
[2019-03-03] MEDS: SYMBICORT 160/4.5MCG INHALER 6GM INH SCH ×2 (07:34→19:49)
[2019-03-03 08:10] VITALS: BP 124/62
[2019-03-03] MEDS: ONDANSETRON 4MG/2ML VIAL (J2405) IV PRN ×2 (08:56→19:26)
[2019-03-03] MEDS: APIXABAN 2.5 MG TAB (ELIQUIS) PO SCH (09:09)
[2019-03-03] MEDS: ASPIRIN 81 MG ENTERIC TAB PO SCH (09:10)
[2019-03-03] MEDS: guaiFENesin ER 600 MG TAB PO SCH ×2 (09:11→21:29)
[2019-03-03] MEDS: OMEPRAZOLE 20 MG CAP PO SCH (09:12)
[2019-03-03] MEDS: PIPERACILLIN/TAZOBACTAM SOD 3.375 GM in D5W MINI-BAG PLUS 50 ML IV SCH ×3 (09:46→21:31)
[2019-03-03] MEDS: traMADol 50 MG TAB PO PRN (09:48)
[2019-03-03] MEDS: K-PHOS NEUTRAL 250MG TABLET (SOD.PHOSPHATE/POT.PHOSPHATE) PO SCH ×3 (09:48→21:31)
[2019-03-03] MEDS: atenoloL 50 MG TAB PO SCH ×3 (09:49→21:30)
[2019-03-03 10:00] VITALS: BP 108/57
[2019-03-03 12:11] LABS: BLOOD UREA NITROGEN 7 MG/DL (7-18); CALCIUM LEVEL 8.1 MG/DL (8.8-10.2); CARBON DIOXIDE LEVEL 30 MEQ/L (21-32); CHLORIDE LEVEL 111 MEQ/L (98-107); CREATININE FOR GFR 1.03 MG/DL (0.70-1.30); GLOMERULAR FILTRATION RATE > 60.0 (>35); GLUCOSE, FASTING 106 MG/DL (70-100); POTASSIUM SERUM 3.8 MEQ/L (3.5-5.1); SODIUM LEVEL 146 MEQ/L (136-145)
--- NOTE | 2019-03-03 20:02 | IPNPDOC ---
Date Seen The patient was seen on 03/03/19. Progress Note HISTORY OF PRESENT ILLNESS: 83-year-old male with past medical history of COPD on home oxygen, atrial fibrillation status post from a pacemaker 2 and watchman procedure, currently on Eliquis, hypertension and GERD presents from home with nausea, vomiting, diarrhea and worsening productive cough. Patient was admitted for pneumonia last month, discharged 2 weeks ago, reports persistence of symp toms, which have worsened over the past 48-72 hours with productive sputum, vomiting and diarrhea. Patient has had very poor oral intake because of the vomiting. He has not required additional oxygen supplementation at home during this time. He denies any sick contacts, no other complaints at this time. He denies any chest pain, headache, abdominal pain or joint pain at this time. 03/01/2019 Patient is to have productive cough, requesting something to help breakdown mucous, no other complaints. Respiratory viral panel positive for parainfluenza and human rhinovirus. 03/02/2019 Patient is to have productive cough, reports slight improvement in dyspnea, no other complaints. 03/03/2019 Patient is to have severe productive cough with excessive amount of sputum production, unable tolerate by mouth intake because he chokes every time he eats/drinks anything. 10 point review of system is negative except for above HOME MEDICATIONS: Please see below. PHYSICAL EXAMINATION: VITAL SIGNS: Please see below. GENERAL: No distress HEENT: Normocephalic, atraumatic, moist mucous membranes NECK: Supple CARDIOVASCULAR EXAMINATION: Irregularly irregular RESPIRATORY EXAMINATION: diminished in the right lower lobe, bibasilar crackles appreciated, no wheezing ABDOMINAL EXAMINATION: Soft, nontender, nondistended, positive bowel sounds EXTREMITIES: Range of motion intact SKIN: No rash NEUROLOGICAL EXAMINATION: Alert and oriented 3, no focal deficits PSYCHIATRIC EXAMINATION: Calm and cooperative LABORATORY DATA: See below. IMAGING: Chest x-ray with infiltrates MICROBIOLOGY: Please see below. ASSESSMENT: 83-year-old male, past medical history of COPD, atrial fibrillation, hypertension and GERD who was recently admitted for pneumonia, presents with recurrent symptoms. PLAN: 1. Viral infection with superimposed bacterial Pneumonia. Respiratory viral panel positive for parainfluenza and human rhinovirus, likely with superimposed bacterial pneumonia, antibiotics switched to Zosyn, sputum cultures grew Haemophilus influenza, blood culture negative. Continue Mucinex and hypertonic saline nebs. 2. Acute kidney injury. Likely due to poor oral intake along with vomiting and diarrhea, improving, continue IV hydration. 3. Atrial fibrillation. Status post permanent pacemaker 2, status post ablation, status post watchman procedure Continue Eliquis for anticoagulation, continue atenolol and Cardizem for rate control. 4. Hypertension. Continue home meds. (Atenolol and Cardizem) 5. GERD. Continue home PPI 6. COPD Stable, continue home regimen. DVT prophylaxis: Eliquis GI prophylaxis: Home PPI VS, I&O, 24H, Fishbone Vital Signs/I&O Vital Signs Date Time Temp Pulse Resp B/P (MAP) Pulse Ox O2 Delivery O2 Flow Rate FiO2 03/03/19 15:50 72 130/65 03/03/19 10:18 16 03/03/19 10:00 98.6 94 Nasal Cannula 3.0 I&O- Last 24 Hours up to 6 AM 03/03/19 06:00 Intake Total 1650 ml Output Total 300 ml Balance 1350 ml Laboratory Data 24H LABS Laboratory Tests 2 03/03/19 11:14: Anion Gap 5L, Glomerular Filtration Rate > 60.0, Calcium Level 8.1L CBC/BMP Laboratory Tests 03/03/19 11:14 Microbiology Microbiology 02/28/19 Respiratory Virus Panel (PCR) (PEG) - Final, Complete Parainfluenza 1 (Piv1) Human Rhinovirus/Enterovirus 02/28/19 Blood Culture - Preliminary, Resulted No Growth after 72 hours. All specime... 02/28/19 Gram Stain - Final, Complete 02/28/19 Sputum Culture - Final, Complete Haemophilus Influenzae 02/28/19 Blood Culture - Preliminary, Resulted No Growth after 72 hours. All specime... ELFEGO THOMAS MD Mar 03, 2019 20:02
[2019-03-03] MEDS: APIXABAN 5 MG TAB (ELIQUIS) PO SCH (21:30)
[2019-03-03] MEDS: TAMSULOSIN 0.4 MG CAP PO SCH (21:30)
[2019-03-03] MEDS: FINASTERIDE 5 MG TAB PO SCH (21:31)
[2019-03-03] MEDS: MAGNESIUM CHLORIDE 64 MG TABCR (SLO MAG) PO SCH (21:31)
[2019-03-03 22:00] VITALS: BP 122/60
[2019-03-04] MEDS: SODIUM CHLORIDE NASAL 0.65% SPRAY BTL (OCEAN) PRN ×3 (00:36→11:14)
[2019-03-04] MEDS: SODIUM CHLORIDE HYPERTONIC 3% 15ML NEB SOL INH SCH ×4 (02:00→20:24)
[2019-03-04] MEDS: IPRATROPIUM 0.5MG/ALBUTEROL 2.5MG INH SOL UD 3ML (DUONEB)(J7620) NEB PRN ×3 (03:16→13:24)
[2019-03-04] MEDS: PIPERACILLIN/TAZOBACTAM SOD 3.375 GM in D5W MINI-BAG PLUS 50 ML IV SCH ×4 (03:43→22:07)
[2019-03-04 06:00] VITALS: BP 108/57
[2019-03-04] MEDS: SYMBICORT 160/4.5MCG INHALER 6GM INH SCH ×2 (07:16→20:25)
[2019-03-04 07:39] LABS: HEMATOCRIT 25.3 % (42.0-52.0); HEMOGLOBIN 7.9 g/dl (13.5-17.5); MEAN CORPUSCULAR HEMOGLOBIN 28.7 pg (27.0-33.0); MEAN CORPUSCULAR HGB CONC 31.2 g/dl (32.0-36.5); PLATELET COUNT, AUTOMATED 217 10^3/uL (150-450); RED BLOOD COUNT 2.75 10^6/uL (4.30-6.10); WHITE BLOOD COUNT 9.6 10^3/uL (4.0-10.0)
[2019-03-04 08:02] LABS: BLOOD UREA NITROGEN 7 MG/DL (7-18); CALCIUM LEVEL 8.1 MG/DL (8.8-10.2); CARBON DIOXIDE LEVEL 30 MEQ/L (21-32); CHLORIDE LEVEL 112 MEQ/L (98-107); CREATININE FOR GFR 1.11 MG/DL (0.70-1.30); GLOMERULAR FILTRATION RATE > 60.0 (>35); GLUCOSE, FASTING 112 MG/DL (70-100); MAGNESIUM LEVEL 1.7 MG/DL (1.8-2.4); PHOSPHORUS LEVEL 3.5 MG/DL (2.5-4.9); POTASSIUM SERUM 3.6 MEQ/L (3.5-5.1); SODIUM LEVEL 148 MEQ/L (136-145)
[2019-03-04] MEDS: guaiFENesin ER 600 MG TAB PO SCH ×2 (08:55→22:06)
[2019-03-04] MEDS: OMEPRAZOLE 20 MG CAP PO SCH (08:55)
[2019-03-04] MEDS: APIXABAN 5 MG TAB (ELIQUIS) PO SCH ×2 (08:55→22:06)
[2019-03-04] MEDS: ASPIRIN 81 MG ENTERIC TAB PO SCH (08:55)
[2019-03-04] MEDS: atenoloL 50 MG TAB PO SCH ×3 (08:56→22:06)
[2019-03-04] MEDS: ONDANSETRON 4MG/2ML VIAL (J2405) IV PRN ×2 (08:56→17:48)
[2019-03-04] MEDS ORDERED: POTASSIUM CHLORIDE 10 MEQ SR TABLET PO ONE (09:00)
[2019-03-04] MEDS: MAG SULF 1GM/100ML (MAG RUN) 1 GM in IV 1 EA IV SCH ×2 (10:23→11:26)
--- NOTE | 2019-03-04 13:28 | REP ---
Clinical: Pneumonia. Technique: Axial noncontrast images from the thoracic inlet to the upper abdomen with coronal and sagittal re-formations. Comparison: 02/28/2019. Findings: Moderate bilateral lower lobe consolidations with air bronchograms and small pleural effusions have significantly increased since the prior examination. No pneumothorax. No significant adenopathy. Cardiomegaly and small pericardial effusion along with atherosclerotic changes to the thoracic aorta and coronary arteries and pacemaker remain stable. Prominent pulmonary vasculature suggests associated vascular congestion. Underlying chronic COPD and emphysematous changes noted. Impression: Moderate bilateral lower lobe consolidations and small pleural effusions have increased in size. Differential diagnosis includes pneumonia and/or associated pulmonary vascular congestion. Electronically Signed by Abhilash Nieves MD 03/04/2019 01:19 P
--- NOTE | 2019-03-04 13:32 | REP ---
Clinical: Abdominal pain. Technique: Axial noncontrast images from the lung bases to the pubic symphysis with coronal and sagittal re-formations. Comparison: 08/29/2017. Findings: Lung bases demonstrate moderate consolidations and pleural effusions along with cardiomegaly and small pericardial effusion suggesting multifocal pneumonia as well as pulmonary edema. Liver, spleen, pancreas, bilateral adrenal glands and kidneys are essentially normal/stable. Renal hypodensities are similar to prior examination and likely represent cysts. No hydronephrosis. Gallbladder demonstrates small amount of stable layering sludge without acute cholecystitis. The enteric system is without obstruction or acute inflammatory process. Normal terminal ileum and appendix identified in the right lower quadrant. Scattered colonic and sigmoid diverticula noted without acute diverticulitis. Pelvis demonstrates relatively normal stable bladder with small amount of layering gravel. Prostate gland is grossly unremarkable. Atherosclerotic changes to the aorta and vasculature noted without aneurysm. No ascites. No free air. No adenopathy. Osseous structures demonstrate age-related changes without obvious acute process. Impression: 1. Lung bases demonstrate moderate consolidations and small effusions along with cardiomegaly and small pericardial effusion. 2. No acute abdominopelvic pathology appreciated. 3. Chronic stable findings as described above and essentially unchanged compared to 08/29/2017. Electronically Signed by Abhilash Nieves MD 03/04/2019 01:23 P
[2019-03-04 14:00] VITALS: BP 110/64
--- NOTE | 2019-03-04 18:13 | IPNPDOC ---
Date Seen The patient was seen on 03/04/19. Progress Note HISTORY OF PRESENT ILLNESS: 83-year-old male with past medical history of COPD on home oxygen, atrial fibrillation status post from a pacemaker 2 and watchman procedure, currently on Eliquis, hypertension and GERD presents from home with nausea, vomiting, diarrhea and worsening productive cough. Patient was admitted for pneumonia last month, discharged 2 weeks ago, reports persistence of symp toms, which have worsened over the past 48-72 hours with productive sputum, vomiting and diarrhea. Patient has had very poor oral intake because of the vomiting. He has not required additional oxygen supplementation at home during this time. He denies any sick contacts, no other complaints at this time. He denies any chest pain, headache, abdominal pain or joint pain at this time. 03/01/2019 Patient is to have productive cough, requesting something to help breakdown mucous, no other complaints. Respiratory viral panel positive for parainfluenza and human rhinovirus. 03/02/2019 Patient is to have productive cough, reports slight improvement in dyspnea, no other complaints. 03/03/2019 Patient is to have severe productive cough with excessive amount of sputum production, unable tolerate by mouth intake because he chokes every time he eats/drinks anything. 03/04/2019 Patient reports slight improvement in dyspnea and cough, continues to have significant sputum production, unmotivated when it comes to working with physical therapy and getting out of bed, patient is not moved out of his bed since admission, has minimal oral intake. 10 point review of system is negative except for above HOME MEDICATIONS: Please see below. PHYSICAL EXAMINATION: VITAL SIGNS: Please see below. GENERAL: No distress HEENT: Normocephalic, atraumatic, moist mucous membranes NECK: Supple CARDIOVASCULAR EXAMINATION: Irregularly irregular RESPIRATORY EXAMINATION: diminished in the right lower lobe, bibasilar crackles appreciated, no wheezing ABDOMINAL EXAMINATION: Soft, nontender, nondistended, positive bowel sounds EXTREMITIES: Range of motion intact SKIN: No rash NEUROLOGICAL EXAMINATION: Alert and oriented 3, no focal deficits PSYCHIATRIC EXAMINATION: Calm and cooperative LABORATORY DATA: See below. IMAGING: Chest x-ray with infiltrates MICROBIOLOGY: Please see below. ASSESSMENT: 83-year-old male, past medical history of COPD, atrial fibrillation, hypertension and GERD who was recently admitted for pneumonia, presents with recurrent symptoms. PLAN: 1. Viral infection with superimposed bacterial Pneumonia. Respiratory viral panel positive for parainfluenza and human rhinovirus, likely with superimposed bacterial pneumonia, continue Zosyn, sputum cultures grew Haemophilus influenza, blood culture negative. Continue Mucinex and hypertonic saline nebs. 2. Acute kidney injury. Likely due to poor oral intake along with vomiting and diarrhea, resolved with IV hydration, IV fluids discontinued. 3. Atrial fibrillation. Status post permanent pacemaker 2, status post ablation, status post watchman procedure Continue Eliquis for anticoagulation, continue atenolol and Cardizem for rate control. 4. Hypertension. Continue home meds. (Atenolol and Cardizem) 5. GERD. Continue home PPI 6. COPD Stable, continue home regimen. DVT prophylaxis: Eliquis GI prophylaxis: Home PPI VS, I&O, 24H, Fishbone Vital Signs/I&O Vital Signs Date Time Temp Pulse Resp B/P (MAP) Pulse Ox O2 Delivery O2 Flow Rate FiO2 03/04/19 15:28 71 126/60 03/04/19 14:00 97.7 18 94 Nasal Cannula 2.0 I&O- Last 24 Hours up to 6 AM 03/04/19 06:00 Intake Total 1340 ml Output Total 0 ml Balance 1340 ml Laboratory Data 24H LABS Laboratory Tests 2 03/04/19 07:27: Nucleated Red Blood Cells % (auto) 0.0, Anion Gap 6L, Glomerular Filtration Rate > 60.0, Calcium Level 8.1L, Phosphorus Level 3.5#, Magnesium Level 1.7L CBC/BMP Laboratory Tests 03/04/19 07:27 Microbiology Microbiology 02/28/19 Respiratory Virus Panel (PCR) (PEG) - Final, Complete Parainfluenza 1 (Piv1) Human Rhinovirus/Enterovirus 02/28/19 Blood Culture - Preliminary, Resulted No Growth after 72 hours. All specime... 02/28/19 Gram Stain - Final, Complete 02/28/19 Sputum Culture - Final, Complete Haemophilus Influenzae 02/28/19 Blood Culture - Preliminary, Resulted No Growth after 72 hours. All specime... ELFEGO THOMAS MD Mar 04, 2019 18:13
[2019-03-04 22:00] VITALS: BP 128/60
[2019-03-04] MEDS: ONDANSETRON 4 MG TAB (S0181) PO PRN (22:05)
[2019-03-04] MEDS: MAGNESIUM CHLORIDE 64 MG TABCR (SLO MAG) PO SCH (22:05)
[2019-03-04] MEDS: FINASTERIDE 5 MG TAB PO SCH (22:05)
[2019-03-04] MEDS: TAMSULOSIN 0.4 MG CAP PO SCH (22:06)
[2019-03-04] MEDS: DIAPER RELIEF PASTE (DESITIN) 60GM TOP SCH (22:26)
[2019-03-05] MEDS: SODIUM CHLORIDE HYPERTONIC 3% 15ML NEB SOL INH SCH ×4 (02:00→20:00)
[2019-03-05] MEDS: PIPERACILLIN/TAZOBACTAM SOD 3.375 GM in D5W MINI-BAG PLUS 50 ML IV SCH ×4 (02:55→21:53)
[2019-03-05 06:00] VITALS: BP 125/59
[2019-03-05 06:21] LABS: HEMATOCRIT 25.1 % (42.0-52.0); HEMOGLOBIN 7.9 g/dl (13.5-17.5); MEAN CORPUSCULAR HEMOGLOBIN 29.6 pg (27.0-33.0); MEAN CORPUSCULAR HGB CONC 31.5 g/dl (32.0-36.5); PLATELET COUNT, AUTOMATED 236 10^3/uL (150-450); RED BLOOD COUNT 2.67 10^6/uL (4.30-6.10); WHITE BLOOD COUNT 11.6 10^3/uL (4.0-10.0)
[2019-03-05 06:56] LABS: BLOOD UREA NITROGEN 5 MG/DL (7-18); CALCIUM LEVEL 8.4 MG/DL (8.8-10.2); CARBON DIOXIDE LEVEL 33 MEQ/L (21-32); CHLORIDE LEVEL 108 MEQ/L (98-107); CREATININE FOR GFR 1.19 MG/DL (0.70-1.30); GLOMERULAR FILTRATION RATE > 60.0 (>35); GLUCOSE, FASTING 131 MG/DL (70-100); MAGNESIUM LEVEL 1.9 MG/DL (1.8-2.4); PHOSPHORUS LEVEL 1.9 MG/DL (2.5-4.9); POTASSIUM SERUM 3.8 MEQ/L (3.5-5.1); SODIUM LEVEL 143 MEQ/L (136-145)
[2019-03-05] MEDS: IPRATROPIUM 0.5MG/ALBUTEROL 2.5MG INH SOL UD 3ML (DUONEB)(J7620) NEB PRN ×2 (07:17→13:33)
[2019-03-05] MEDS: SYMBICORT 160/4.5MCG INHALER 6GM INH SCH ×2 (07:18→21:21)
[2019-03-05 10:15] VITALS: BP 123/59
[2019-03-05] MEDS: ASPIRIN 81 MG ENTERIC TAB PO SCH (10:18)
[2019-03-05] MEDS: guaiFENesin ER 600 MG TAB PO SCH ×2 (10:18→21:53)
[2019-03-05] MEDS: ONDANSETRON 4 MG TAB (S0181) PO PRN (10:18)
[2019-03-05] MEDS: OMEPRAZOLE 20 MG CAP PO SCH (10:19)
[2019-03-05] MEDS: APIXABAN 5 MG TAB (ELIQUIS) PO SCH ×2 (10:19→21:54)
[2019-03-05] MEDS: atenoloL 50 MG TAB PO SCH ×3 (10:19→21:00)
[2019-03-05] MEDS: DIAPER RELIEF PASTE (DESITIN) 60GM TOP SCH ×2 (10:20→21:53)
[2019-03-05] MEDS: K-PHOS NEUTRAL 250MG TABLET (SOD.PHOSPHATE/POT.PHOSPHATE) PO SCH ×3 (10:37→21:54)
[2019-03-05 14:00] VITALS: BP 132/75
[2019-03-05 15:31] VITALS: BP 99/70
[2019-03-05 15:34] VITALS: BP 106/50
--- NOTE | 2019-03-05 16:28 | REP ---
Clinical: Nasogastric tube placement. Comparison: 02/28/2019. Findings: Nasogastric tube courses below left hemidiaphragm. Bilateral lower lobe consolidations (left greater than right) again noted. Further evaluation is incomplete/limited. Impression: Nasogastric tube courses below left hemidiaphragm. Lower lobe consolidations (left greater than right). Electronically Signed by Abhilash Nieves MD 03/05/2019 04:19 P
[2019-03-05] MEDS: HYDROCORTISONE 100 MG/2 ML VIAL (J1720 PER 1) IV SCH ×2 (18:22→23:55)
--- NOTE | 2019-03-05 18:53 | IPNPDOC ---
Date Seen The patient was seen on 03/05/19. Progress Note HISTORY OF PRESENT ILLNESS: 83-year-old male with past medical history of COPD on home oxygen, atrial fibrillation status post from a pacemaker 2 and watchman procedure, currently on Eliquis, hypertension and GERD presents from home with nausea, vomiting, diarrhea and worsening productive cough. Patient was admitted for pneumonia last month, discharged 2 weeks ago, reports persistence of symp toms, which have worsened over the past 48-72 hours with productive sputum, vomiting and diarrhea. Patient has had very poor oral intake because of the vomiting. He has not required additional oxygen supplementation at home during this time. He denies any sick contacts, no other complaints at this time. He denies any chest pain, headache, abdominal pain or joint pain at this time. 03/01/2019 Patient is to have productive cough, requesting something to help breakdown mucous, no other complaints. Respiratory viral panel positive for parainfluenza and human rhinovirus. 03/02/2019 Patient is to have productive cough, reports slight improvement in dyspnea, no other complaints. 03/03/2019 Patient is to have severe productive cough with excessive amount of sputum production, unable tolerate by mouth intake because he chokes every time he eats/drinks anything. 03/04/2019 Patient reports slight improvement in dyspnea and cough, continues to have significant sputum production, unmotivated when it comes to working with physical therapy and getting out of bed, patient is not moved out of his bed since admission, has minimal oral intake. 03/05/2019 Patient continues to have cough w/ large amount of sputum production. Has minimal motivation with getting out of bed, working with physical therapy or eating. Patient advised that he needs to be more active, which will help his body recover quicker. 10 point review of system is negative except for above HOME MEDICATIONS: Please see below. PHYSICAL EXAMINATION: VITAL SIGNS: Please see below. GENERAL: No distress HEENT: Normocephalic, atraumatic, moist mucous membranes NECK: Supple CARDIOVASCULAR EXAMINATION: Irregularly irregular RESPIRATORY EXAMINATION: diminished in the right lower lobe, bibasilar crackles appreciated, no wheezing ABDOMINAL EXAMINATION: Soft, nontender, nondistended, positive bowel sounds EXTREMITIES: Range of motion intact SKIN: No rash NEUROLOGICAL EXAMINATION: Alert and oriented 3, no focal deficits PSYCHIATRIC EXAMINATION: Calm and cooperative LABORATORY DATA: See below. IMAGING: Chest x-ray with infiltrates MICROBIOLOGY: Please see below. ASSESSMENT: 83-year-old male, past medical history of COPD, atrial fibrillation, hypertension and GERD who was recently admitted for pneumonia, presents with recurrent symptoms. PLAN: 1. Viral infection with superimposed bacterial Pneumonia. Respiratory viral panel positive for parainfluenza and human rhinovirus, likely with superimposed bacterial pneumonia, continue Zosyn, sputum cultures grew Haemophilus influenza, blood culture negative. Continue hypertonic saline nebs. Patient with minimal by mouth intake, NG tube inserted and tube feeds started. Patient apparently on chronic oral steroids, stress dose steroids started. 2. Acute kidney injury. Likely due to poor oral intake along with vomiting and diarrhea, resolved with IV hydration, IV fluids discontinued, to feeds started. 3. Atrial fibrillation. Status post permanent pacemaker 2, status post ablation, status post watchman procedure Continue Eliquis for anticoagulation, continue atenolol and Cardizem for rate control. 4. Hypertension. Continue home meds. (Atenolol and Cardizem) 5. GERD. Continue home PPI 6. COPD Stable, continue home regimen. DVT prophylaxis: Eliquis GI prophylaxis: Home PPI VS, I&O, 24H, Fishbone Vital Signs/I&O Vital Signs Date Time Temp Pulse Resp B/P (MAP) Pulse Ox O2 Delivery O2 Flow Rate FiO2 03/05/19 15:34 106/50 (68) 03/05/19 15:34 70 03/05/19 14:00 98.0 18 96 03/05/19 06:00 Nasal Cannula 2.0 I&O- Last 24 Hours up to 6 AM 03/05/19 06:00 Intake Total 470 ml Output Total 0 ml Balance 470 ml Laboratory Data 24H LABS Laboratory Tests 2 03/05/19 05:49: Nucleated Red Blood Cells % (auto) 0.0, Anion Gap 2L, Glomerular Filtration Rate > 60.0, Calcium Level 8.4L, Phosphorus Level 1.9#L, Magnesium Level 1.9 CBC/BMP Laboratory Tests 03/05/19 05:49 Microbiology Microbiology 02/28/19 Respiratory Virus Panel (PCR) (PEG) - Final, Complete Parainfluenza 1 (Piv1) Human Rhinovirus/Enterovirus 02/28/19 Blood Culture - Final, Complete NO GROWTH AFTER 5 DAYS 02/28/19 Gram Stain - Final, Complete 02/28/19 Sputum Culture - Final, Complete Haemophilus Influenzae 02/28/19 Blood Culture - Final, Complete NO GROWTH AFTER 5 DAYS ELFEGO THOMAS MD Mar 05, 2019 18:53
[2019-03-05] MEDS: TAMSULOSIN 0.4 MG CAP PO SCH (21:53)
[2019-03-05] MEDS: MAGNESIUM CHLORIDE 64 MG TABCR (SLO MAG) PO SCH (21:53)
[2019-03-05] MEDS: FINASTERIDE 5 MG TAB PO SCH (21:54)
[2019-03-05 22:00] VITALS: BP 105/66
[2019-03-06] MEDS: IPRATROPIUM 0.5MG/ALBUTEROL 2.5MG INH SOL UD 3ML (DUONEB)(J7620) NEB PRN ×2 (02:03→14:17)
[2019-03-06] MEDS: SODIUM CHLORIDE HYPERTONIC 3% 15ML NEB SOL INH SCH ×4 (02:03→18:43)
[2019-03-06] MEDS: PIPERACILLIN/TAZOBACTAM SOD 3.375 GM in D5W MINI-BAG PLUS 50 ML IV SCH ×4 (03:54→22:11)
[2019-03-06 06:00] VITALS: BP 110/64
[2019-03-06] MEDS: SYMBICORT 160/4.5MCG INHALER 6GM INH SCH ×2 (06:15→18:43)
[2019-03-06] MEDS: HYDROCORTISONE 100 MG/2 ML VIAL (J1720 PER 1) IV SCH ×3 (06:27→17:05)
[2019-03-06 07:07] LABS: HEMATOCRIT 25.6 % (42.0-52.0); HEMOGLOBIN 7.9 g/dl (13.5-17.5); MEAN CORPUSCULAR HEMOGLOBIN 29.2 pg (27.0-33.0); MEAN CORPUSCULAR HGB CONC 30.9 g/dl (32.0-36.5); MEAN CORPUSCULAR VOLUME 94.5 fl (80.0-96.0); PLATELET COUNT, AUTOMATED 223 10^3/uL (150-450); RED BLOOD COUNT 2.71 10^6/uL (4.30-6.10); WHITE BLOOD COUNT 9.9 10^3/uL (4.0-10.0)
[2019-03-06 07:44] LABS: CALCIUM LEVEL 7.8 MG/DL (8.8-10.2); CREATININE FOR GFR 1.47 MG/DL (0.70-1.30); GLOMERULAR FILTRATION RATE 48.6 (>35); MAGNESIUM LEVEL 1.9 MG/DL (1.8-2.4); PHOSPHORUS LEVEL 2.4 MG/DL (2.5-4.9); POTASSIUM SERUM 3.7 MEQ/L (3.5-5.1)
[2019-03-06] MEDS: APIXABAN 5 MG TAB (ELIQUIS) PO SCH ×2 (08:31→22:12)
[2019-03-06] MEDS: ASPIRIN 81 MG ENTERIC TAB PO SCH (08:31)
[2019-03-06] MEDS: OMEPRAZOLE 20 MG CAP PO SCH (08:31)
[2019-03-06] MEDS: guaiFENesin ER 600 MG TAB PO SCH ×2 (08:32→22:11)
[2019-03-06] MEDS: atenoloL 50 MG TAB PO SCH ×3 (08:32→22:10)
[2019-03-06] MEDS: traMADol 50 MG TAB PO PRN ×2 (08:32→22:23)
[2019-03-06] MEDS: DIAPER RELIEF PASTE (DESITIN) 60GM TOP SCH ×2 (08:33→22:13)
[2019-03-06] MEDS ORDERED: GLUCAGON FOR INJ 1 MG VIAL (J1610) SC PRN (09:15)
[2019-03-06] MEDS ORDERED: GLUCOSE 4 GM CHEW TABLET PO PRN (09:15)
[2019-03-06] MEDS ORDERED: DEXTROSE 50% 50 ML SYRINGE IV PRN (09:15)
[2019-03-06] MEDS: HumaLOG INSULIN (NovoLOG) PER UNIT SC SCH ×3 (12:45→22:10)
[2019-03-06 14:00] VITALS: BP 122/56
[2019-03-06 15:08] LABS: CLOSTRIDIUM DIFFICILE PCR NEGATIVE (NEGATIVE)
--- NOTE | 2019-03-06 17:27 | IPNPDOC ---
Date Seen The patient was seen on 03/06/19. Progress Note HISTORY OF PRESENT ILLNESS: 83-year-old male with past medical history of COPD on home oxygen, atrial fibrillation status post from a pacemaker 2 and watchman procedure, currently on Eliquis, hypertension and GERD presents from home with nausea, vomiting, diarrhea and worsening productive cough. Patient was admitted for pneumonia last month, discharged 2 weeks ago, reports persistence of symp toms, which have worsened over the past 48-72 hours with productive sputum, vomiting and diarrhea. Patient has had very poor oral intake because of the vomiting. He has not required additional oxygen supplementation at home during this time. He denies any sick contacts, no other complaints at this time. He denies any chest pain, headache, abdominal pain or joint pain at this time. 03/01/2019 Patient is to have productive cough, requesting something to help breakdown mucous, no other complaints. Respiratory viral panel positive for parainfluenza and human rhinovirus. 03/02/2019 Patient is to have productive cough, reports slight improvement in dyspnea, no other complaints. 03/03/2019 Patient is to have severe productive cough with excessive amount of sputum production, unable tolerate by mouth intake because he chokes every time he eats/drinks anything. 03/04/2019 Patient reports slight improvement in dyspnea and cough, continues to have significant sputum production, unmotivated when it comes to working with physical therapy and getting out of bed, patient is not moved out of his bed since admission, has minimal oral intake. 03/05/2019 Patient continues to have cough w/ large amount of sputum production. Has minimal motivation with getting out of bed, working with physical therapy or eating. Patient advised that he needs to be more active, which will help his body recover quicker. 03/06/2019 Patient feels much better today, continues to have cough and sputum production about improved, is getting out of bed and ambulating in the room as well, reports better tolerance with by mouth intake, remains on tube feeds via NG tube, no other complaints. 10 point review of system is negative except for above HOME MEDICATIONS: Please see below. PHYSICAL EXAMINATION: VITAL SIGNS: Please see below. GENERAL: No distress HEENT: Normocephalic, atraumatic, moist mucous membranes NECK: Supple CARDIOVASCULAR EXAMINATION: Irregularly irregular RESPIRATORY EXAMINATION: diminished in the right lower lobe, bibasilar crackles appreciated, no wheezing ABDOMINAL EXAMINATION: Soft, nontender, nondistended, positive bowel sounds EXTREMITIES: Range of motion intact SKIN: No rash NEUROLOGICAL EXAMINATION: Alert and oriented 3, no focal deficits PSYCHIATRIC EXAMINATION: Calm and cooperative LABORATORY DATA: See below. IMAGING: Chest x-ray with infiltrates MICROBIOLOGY: Please see below. ASSESSMENT: 83-year-old male, past medical history of COPD, atrial fibrillation, hypertension and GERD who was recently admitted for pneumonia, presents with recurrent symptoms. PLAN: 1. Viral infection with superimposed bacterial Pneumonia. Respiratory viral panel positive for parainfluenza and human rhinovirus, likely with superimposed bacterial pneumonia, continue Zosyn, sputum cultures grew Haemophilus influenza, blood culture negative. Continue hypertonic saline nebs, Mucinex and incentive spirometer. Continue tube feeds via NG tube, will discontinue when oral intake and swallowing function adequate. Continue stress dose IV steroids. 2. Acute kidney injury. Likely due to poor oral intake along with vomiting and diarrhea, resolved with IV hydration and IV fluids were subsequently discontinued, creatinine worsening, possibly due to lack of oral intake and/or Zosyn, will monitor. 3. Atrial fibrillation. Status post permanent pacemaker 2, status post ablation, status post watchman procedure Continue Eliquis for anticoagulation, continue atenolol and Cardizem for rate control. 4. Hypertension. Continue home meds. (Atenolol and Cardizem) 5. GERD. Continue home PPI 6. COPD Stable, continue home regimen. DVT prophylaxis: Eliquis GI prophylaxis: Home PPI VS, [facility], [facility] Vital Signs Date Time Temp Pulse Resp B/P (MAP) Pulse Ox O2 Delivery O2 Flow Rate FiO2 03/06/19 15:35 70 120/58 03/06/19 14:00 97.6 18 100 Room Air 03/06/19 09:02 2.0 I&O- Last 24 Hours up to 6 AM 03/06/19 06:00 Intake Total 825 ml Balance 825 ml Laboratory Data 24H LABS Laboratory Tests 2 03/06/19 06:38: Nucleated Red Blood Cells % (auto) 0.0, Anion Gap 7L, Glomerular Filtration Rate 48.6, Calcium Level 7.8L, Phosphorus Level 2.4#L, Magnesium Level 1.9 03/06/19 11:58: Bedside Glucose (Misc Panel) 261H 03/06/19 14:15: Clostridium difficile [id number] PRESUMPTIVE NEGATIVE, Clostridium difficile Toxin (PCR) NEGATIVE 03/06/19 16:54: Bedside Glucose (Misc Panel) 208H CBC/BMP Laboratory Tests 03/06/19 06:38 Microbiology Microbiology 02/28/19 Respiratory Virus Panel (PCR) (PEG) - Final, Complete Parainfluenza 1 (Piv1) Human Rhinovirus/Enterovirus 02/28/19 Blood Culture - Final, Complete NO GROWTH AFTER 5 DAYS 02/28/19 Gram Stain - Final, Complete 02/28/19 Sputum Culture - Final, Complete Haemophilus Influenzae 02/28/19 Blood Culture - Final, Complete NO GROWTH AFTER 5 DAYS ELFEGO THOMAS MD Mar 06, 2019 17:27
[2019-03-06] MEDS ORDERED: K-PHOS NEUTRAL 250MG TABLET (SOD.PHOSPHATE/POT.PHOSPHATE) PO ONE (18:30)
[2019-03-06 22:00] VITALS: BP 109/62
[2019-03-06] MEDS: TAMSULOSIN 0.4 MG CAP PO SCH (22:11)
[2019-03-06] MEDS: MAGNESIUM CHLORIDE 64 MG TABCR (SLO MAG) PO SCH (22:11)
[2019-03-06] MEDS: FINASTERIDE 5 MG TAB PO SCH (22:12)
--- NOTE | 2019-03-06 22:39 | REPVR ---
PROCEDURE INFORMATION: Exam: XR Chest, 1 View Exam date and time: 03/06/2019 9:50 PM Age: 83 years old Clinical history: Device placement; Ng tube; Additional info: Ng placement. TECHNIQUE: Imaging protocol: XR of the chest Views: 1 view. COMPARISON: CR PORTABLE CHEST X-RAY 03/05/2019 4:07 PM FINDINGS: Tubes, catheters and devices: A nasogastric tube is in place with its tip at the GE junction and the tip should be advanced 7 cm. There is a bi-lead pacemaker in place. Lungs: There is consolidation of lung the right lung base consistent with atelectasis and pneumonia. This can be seen with aspiration pneumonia. There is also consolidation of lung at the left lung base with small bulla. Pleural space: Unremarkable. No pleural effusion. No pneumothorax. Heart/Mediastinum: There is prominence of the left side of the heart. Bones/joints: Unremarkable. IMPRESSION: The tip of the nasogastric tube is at the GE junction and should be advanced approximately 7 cm. Electronically signed by: Nicolás Giang On 03/06/2019 22:38:52 PM
[2019-03-07] VITALS (9 sets, daily range): BP systolic 109–139; BP diastolic 55–83
[2019-03-07] MEDS: HYDROCORTISONE 100 MG/2 ML VIAL (J1720 PER 1) IV SCH ×5 (00:05→23:19)
[2019-03-07] MEDS: SODIUM CHLORIDE HYPERTONIC 3% 15ML NEB SOL INH SCH ×4 (01:59→19:35)
[2019-03-07] MEDS: IPRATROPIUM 0.5MG/ALBUTEROL 2.5MG INH SOL UD 3ML (DUONEB)(J7620) NEB PRN ×2 (01:59→14:40)
[2019-03-07] MEDS: PIPERACILLIN/TAZOBACTAM SOD 3.375 GM in D5W MINI-BAG PLUS 50 ML IV SCH ×4 (03:35→21:47)
[2019-03-07 07:12] LABS: HEMATOCRIT 24.2 % (42.0-52.0); HEMOGLOBIN 7.4 g/dl (13.5-17.5); MEAN CORPUSCULAR HEMOGLOBIN 28.6 pg (27.0-33.0); MEAN CORPUSCULAR HGB CONC 30.6 g/dl (32.0-36.5); MEAN CORPUSCULAR VOLUME 93.4 fl (80.0-96.0); PLATELET COUNT, AUTOMATED 261 10^3/uL (150-450); RED BLOOD COUNT 2.59 10^6/uL (4.30-6.10); WHITE BLOOD COUNT 10.3 10^3/uL (4.0-10.0)
[2019-03-07 07:23] LABS: ALBUMIN 1.5 GM/DL (3.2-5.2); BILIRUBIN,TOTAL 0.5 MG/DL (0.2-1.0); CALCIUM LEVEL 7.6 MG/DL (8.8-10.2); CREATININE FOR GFR 1.24 MG/DL (0.70-1.30); GLOMERULAR FILTRATION RATE 59.1 (>35); MAGNESIUM LEVEL 1.9 MG/DL (1.8-2.4); POTASSIUM SERUM 3.3 MEQ/L (3.5-5.1)
[2019-03-07] MEDS ORDERED: PANTOPRAZOLE 40MG INJ (PROTONIX) (C9113) IV ONE (08:30)
[2019-03-07] MEDS: SYMBICORT 160/4.5MCG INHALER 6GM INH SCH ×2 (09:01→19:35)
[2019-03-07] MEDS: ASPIRIN 81 MG ENTERIC TAB PO SCH (09:06)
[2019-03-07] MEDS: APIXABAN 5 MG TAB (ELIQUIS) PO SCH (09:06)
[2019-03-07] MEDS: HumaLOG INSULIN (NovoLOG) PER UNIT SC SCH ×4 (09:06→21:00)
[2019-03-07] MEDS: guaiFENesin ER 600 MG TAB PO SCH ×2 (09:07→21:47)
[2019-03-07] MEDS: atenoloL 50 MG TAB PO SCH ×3 (09:07→21:00)
[2019-03-07] MEDS: DIAPER RELIEF PASTE (DESITIN) 60GM TOP SCH ×2 (09:08→21:48)
[2019-03-07] MEDS ORDERED: POTASSIUM PHOSPHATE INJ 30 MMOL in D5W 500 ML IV ONE (10:00)
--- NOTE | 2019-03-07 17:29 | IPNPDOC ---
Date Seen The patient was seen on 03/07/19. Progress Note HISTORY OF PRESENT ILLNESS: 83-year-old male with past medical history of COPD on home oxygen, atrial fibrillation status post from a pacemaker 2 and watchman procedure, currently on Eliquis, hypertension and GERD presents from home with nausea, vomiting, diarrhea and worsening productive cough. Patient was admitted for pneumonia last month, discharged 2 weeks ago, reports persistence of symp toms, which have worsened over the past 48-72 hours with productive sputum, vomiting and diarrhea. Patient has had very poor oral intake because of the vomiting. He has not required additional oxygen supplementation at home during this time. He denies any sick contacts, no other complaints at this time. He denies any chest pain, headache, abdominal pain or joint pain at this time. 03/01/2019 Patient is to have productive cough, requesting something to help breakdown mucous, no other complaints. Respiratory viral panel positive for parainfluenza and human rhinovirus. 03/02/2019 Patient is to have productive cough, reports slight improvement in dyspnea, no other complaints. 03/03/2019 Patient is to have severe productive cough with excessive amount of sputum production, unable tolerate by mouth intake because he chokes every time he eats/drinks anything. 03/04/2019 Patient reports slight improvement in dyspnea and cough, continues to have significant sputum production, unmotivated when it comes to working with physical therapy and getting out of bed, patient is not moved out of his bed since admission, has minimal oral intake. 03/05/2019 Patient continues to have cough w/ large amount of sputum production. Has minimal motivation with getting out of bed, working with physical therapy or eating. Patient advised that he needs to be more active, which will help his body recover quicker. 03/06/2019 Patient feels much better today, continues to have cough and sputum production about improved, is getting out of bed and ambulating in the room as well, reports better tolerance with by mouth intake, remains on tube feeds via NG tube, no other complaints. 03/07/2019 Patient's NG tube came out twice due to coughing, has improved his oral intake, reports significant improvement in cough and sputum production, getting out of bed and ambulating more than usual as well. 10 point review of system is negative except for above HOME MEDICATIONS: Please see below. PHYSICAL EXAMINATION: VITAL SIGNS: Please see below. GENERAL: No distress HEENT: Normocephalic, atraumatic, moist mucous membranes NECK: Supple CARDIOVASCULAR EXAMINATION: Irregularly irregular RESPIRATORY EXAMINATION: diminished in the right lower lobe, bibasilar crackles appreciated, no wheezing ABDOMINAL EXAMINATION: Soft, nontender, nondistended, positive bowel sounds EXTREMITIES: Range of motion intact SKIN: No rash NEUROLOGICAL EXAMINATION: Alert and oriented 3, no focal deficits PSYCHIATRIC EXAMINATION: Calm and cooperative LABORATORY DATA: See below. IMAGING: Chest x-ray with infiltrates MICROBIOLOGY: Please see below. ASSESSMENT: 83-year-old male, past medical history of COPD, atrial fibrillation, hypertension and GERD who was recently admitted for pneumonia, presents with recurrent symptoms. PLAN: 1. Viral infection with superimposed bacterial Pneumonia. Respiratory viral panel positive for parainfluenza and human rhinovirus, likely with superimposed bacterial pneumonia, continue Zosyn, sputum cultures grew Haemophilus influenza, blood culture negative. Continue hypertonic saline nebs, Mucinex and incentive spirometer. Continue stress dose IV steroids. 2. GI bleed. H&H downtrending, stool occult blood positive, BUN uptrending, will transfuse 1 unit of packed red blood cells, will trend H&H and transfuse accordingly, Protonix 80 mg IV 1 followed by 40 mg twice a day, will hold Eliquis for now. 3. Acute kidney injury. Likely due to poor oral intake along with vomiting and diarrhea, resolved with IV hydration, will monitor. 4. Atrial fibrillation. Status post permanent pacemaker 2, status post ablation, status post watchman procedure Hold Eliquis due to bleed, continue atenolol and Cardizem for rate control. 5. Hypertension. Continue home meds. (Atenolol and Cardizem) 6. GERD. Continue home PPI 7. COPD Stable, continue home regimen. DVT prophylaxis: Eliquis GI prophylaxis: Home PPI VS, I&O, 24H, Fishbone Vital Signs/I&O Vital Signs Date Time Temp Pulse Resp B/P (MAP) Pulse Ox O2 Delivery O2 Flow Rate FiO2 03/07/19 16:41 66 122/61 03/07/19 14:55 97.5 16 92 Nasal Cannula 2.0 I&O- Last 24 Hours up to 6 AM 03/07/19 06:00 Intake Total 1876 ml Balance 1876 ml Laboratory Data 24H LABS Laboratory Tests 2 03/06/19 21:31: Bedside Glucose (Misc Panel) 181H 03/07/19 06:33: Nucleated Red Blood Cells % (auto) 0.0, Anion Gap 6L, Glomerular Filtration Rate 59.1, Calcium Level 7.6L, Phosphorus Level 2.0L, Magnesium Level 1.9, Total Bilirubin 0.5, Aspartate Amino Transf (AST/SGOT) 11, Alanine Aminotransferase (ALT/SGPT) 12, Alkaline Phosphatase 57, Total Protein 5.0L, Albumin 1.5L, Albumin/Globulin Ratio 0.43L 03/07/19 11:34: Bedside Glucose (Misc Panel) 212H 03/07/19 16:59: Bedside Glucose (Misc Panel) 154H CBC/BMP Laboratory Tests 03/07/19 06:33 Microbiology Microbiology 03/07/19 Stool Occult Blood (PEG) - Final, Complete 02/28/19 Respiratory Virus Panel (PCR) (PEG) - Final, Complete Parainfluenza 1 (Piv1) Human Rhinovirus/Enterovirus 02/28/19 Blood Culture - Final, Complete NO GROWTH AFTER 5 DAYS 02/28/19 Gram Stain - Final, Complete 02/28/19 Sputum Culture - Final, Complete Haemophilus Influenzae 02/28/19 Blood Culture - Final, Complete NO GROWTH AFTER 5 DAYS ELFEGO THOMAS MD Mar 07, 2019 17:29
[2019-03-07 18:38] LABS: HEMATOCRIT 28.1 % (42.0-52.0); HEMOGLOBIN 8.8 g/dl (13.5-17.5); MEAN CORPUSCULAR HEMOGLOBIN 28.8 pg (27.0-33.0); MEAN CORPUSCULAR HGB CONC 31.3 g/dl (32.0-36.5); MEAN CORPUSCULAR VOLUME 91.8 fl (80.0-96.0); PLATELET COUNT, AUTOMATED 271 10^3/uL (150-450); RED BLOOD COUNT 3.06 10^6/uL (4.30-6.10); WHITE BLOOD COUNT 11.6 10^3/uL (4.0-10.0)
[2019-03-07] MEDS: PANTOPRAZOLE 40MG INJ (PROTONIX) (C9113) IV SCH (21:46)
[2019-03-07] MEDS: KETOCONAZOLE 2% CREAM TOP SCH (21:47)
[2019-03-07] MEDS: FINASTERIDE 5 MG TAB PO SCH (21:47)
[2019-03-07] MEDS: TAMSULOSIN 0.4 MG CAP PO SCH (21:47)
[2019-03-07] MEDS: MAGNESIUM CHLORIDE 64 MG TABCR (SLO MAG) PO SCH (23:09)
[2019-03-07] MEDS: ONDANSETRON 4 MG TAB (S0181) PO PRN (23:18)
[2019-03-08] MEDS: IPRATROPIUM 0.5MG/ALBUTEROL 2.5MG INH SOL UD 3ML (DUONEB)(J7620) NEB PRN ×2 (01:49→11:43)
[2019-03-08] MEDS: SODIUM CHLORIDE HYPERTONIC 3% 15ML NEB SOL INH SCH ×4 (01:49→20:00)
[2019-03-08] MEDS: PIPERACILLIN/TAZOBACTAM SOD 3.375 GM in D5W MINI-BAG PLUS 50 ML IV SCH ×2 (02:58→08:37)
[2019-03-08] MEDS: HYDROCORTISONE 100 MG/2 ML VIAL (J1720 PER 1) IV SCH ×2 (05:23→13:25)
[2019-03-08 06:00] VITALS: BP_SYST 118; BP_SYST 135; BP_DIAS 67; BP_DIAS 75
[2019-03-08 06:26] LABS: HEMATOCRIT 26.1 % (42.0-52.0); HEMOGLOBIN 8.3 g/dl (13.5-17.5); MEAN CORPUSCULAR HEMOGLOBIN 28.7 pg (27.0-33.0); MEAN CORPUSCULAR HGB CONC 31.8 g/dl (32.0-36.5); MEAN CORPUSCULAR VOLUME 90.3 fl (80.0-96.0); PLATELET COUNT, AUTOMATED 262 10^3/uL (150-450); RED BLOOD COUNT 2.89 10^6/uL (4.30-6.10); WHITE BLOOD COUNT 8.5 10^3/uL (4.0-10.0)
[2019-03-08 06:47] LABS: BLOOD UREA NITROGEN 18 MG/DL (7-18); CALCIUM LEVEL 7.5 MG/DL (8.8-10.2); CARBON DIOXIDE LEVEL 35 MEQ/L (21-32); CHLORIDE LEVEL 105 MEQ/L (98-107); CREATININE FOR GFR 1.12 MG/DL (0.70-1.30); GLOMERULAR FILTRATION RATE > 60.0 (>35); GLUCOSE, FASTING 166 MG/DL (70-100); MAGNESIUM LEVEL 1.9 MG/DL (1.8-2.4); PHOSPHORUS LEVEL 2.9 MG/DL (2.5-4.9); POTASSIUM SERUM 3.6 MEQ/L (3.5-5.1); SODIUM LEVEL 143 MEQ/L (136-145)
[2019-03-08] MEDS: SYMBICORT 160/4.5MCG INHALER 6GM INH SCH ×2 (07:58→20:10)
[2019-03-08] MEDS: HumaLOG INSULIN (NovoLOG) PER UNIT SC SCH ×4 (08:36→21:00)
[2019-03-08] MEDS: ASPIRIN 81 MG ENTERIC TAB PO SCH (08:37)
[2019-03-08] MEDS: guaiFENesin ER 600 MG TAB PO SCH ×2 (08:37→21:43)
[2019-03-08] MEDS: PANTOPRAZOLE 40MG INJ (PROTONIX) (C9113) IV SCH ×2 (08:37→21:44)
[2019-03-08] MEDS: atenoloL 50 MG TAB PO SCH ×3 (08:41→21:43)
[2019-03-08] MEDS: KETOCONAZOLE 2% CREAM TOP SCH ×2 (08:41→21:45)
[2019-03-08] MEDS: DIAPER RELIEF PASTE (DESITIN) 60GM TOP SCH ×2 (08:42→21:46)
[2019-03-08] MEDS: SODIUM CHLORIDE NASAL 0.65% SPRAY BTL (OCEAN) PRN (08:57)
[2019-03-08] MEDS: AUGMENTIN 875 MG TAB PO SCH ×2 (13:25→21:44)
[2019-03-08] MEDS: traMADol 50 MG TAB PO PRN ×2 (13:29→21:42)
[2019-03-08 13:34] LABS: HEMATOCRIT 27.5 % (42.0-52.0)
[2019-03-08 14:00] VITALS: BP 133/65
[2019-03-08] MEDS ORDERED: POTASSIUM CHLORIDE 10 MEQ SR TABLET PO ONE (14:00)
--- NOTE | 2019-03-08 17:22 | IPNPDOC ---
Date Seen The patient was seen on 03/08/19. Progress Note HISTORY OF PRESENT ILLNESS: 83-year-old male with past medical history of COPD on home oxygen, atrial fibrillation status post from a pacemaker 2 and watchman procedure, currently on Eliquis, hypertension and GERD presents from home with nausea, vomiting, diarrhea and worsening productive cough. Patient was admitted for pneumonia last month, discharged 2 weeks ago, reports persistence of symp toms, which have worsened over the past 48-72 hours with productive sputum, vomiting and diarrhea. Patient has had very poor oral intake because of the vomiting. He has not required additional oxygen supplementation at home during this time. He denies any sick contacts, no other complaints at this time. He denies any chest pain, headache, abdominal pain or joint pain at this time. 03/08/2019 Patient sitting in chair, reports significant improvement in dyspnea, cough and sputum production, has more energy, eating more as well as participating with physical therapy. 10 point review of system is negative except for above HOME MEDICATIONS: Please see below. PHYSICAL EXAMINATION: VITAL SIGNS: Please see below. GENERAL: No distress HEENT: Normocephalic, atraumatic, moist mucous membranes NECK: Supple CARDIOVASCULAR EXAMINATION: Irregularly irregular RESPIRATORY EXAMINATION: diminished in the right lower lobe, bibasilar crackles appreciated, no wheezing ABDOMINAL EXAMINATION: Soft, nontender, nondistended, positive bowel sounds EXTREMITIES: Range of motion intact SKIN: No rash NEUROLOGICAL EXAMINATION: Alert and oriented 3, no focal deficits PSYCHIATRIC EXAMINATION: Calm and cooperative LABORATORY DATA: See below. IMAGING: Chest x-ray with infiltrates MICROBIOLOGY: Please see below. ASSESSMENT: 83-year-old male, past medical history of COPD, atrial fibrillation, hypertension and GERD who was recently admitted for pneumonia, presents with recurrent symptoms. PLAN: 1. Viral infection with superimposed bacterial Pneumonia. Respiratory viral panel positive for parainfluenza and human rhinovirus, likely with superimposed bacterial pneumonia, Zosyn discontinued, Augmentin started, sputum cultures grew Haemophilus influenza, blood culture negative. Continue Mucinex and incentive spirometer. Stress dose steroids discontinued, started home, prednisone 7.5 mg daily. 2. Possible bleed H&H downtrending, stool occult blood positive, BUN uptrending, status post 1 unit yesterday, blood in stool is likely from hemorrhoids, BUN elevation can be secondary to steroids, H&H has remained stable. Will restart Eliquis tomorrow morning as long as H&H is stable. 3. Acute kidney injury. Likely due to poor oral intake along with vomiting and diarrhea, resolved with IV hydration, will monitor. 4. Atrial fibrillation. Status post permanent pacemaker 2, status post ablation, status post watchman procedure Restart Eliquis tomorrow if H&H stable, continue atenolol and Cardizem for rate control. 5. Hypertension. Continue home meds. (Atenolol and Cardizem) 6. GERD. Continue home PPI 7. COPD Stable, continue home regimen. DVT prophylaxis: TEDs GI prophylaxis: Home PPI VS, I&O, 24H, Fishbone Vital Signs/I&O Vital Signs Date Time Temp Pulse Resp B/P (MAP) Pulse Ox O2 Delivery O2 Flow Rate FiO2 03/08/19 15:58 71 109/73 03/08/19 14:00 97.8 18 94 Room Air 03/08/19 09:00 2.0 I&O- Last 24 Hours up to 6 AM 03/08/19 06:00 Intake Total 2232 ml Output Total 0 ml Balance 2232 ml Laboratory Data 24H LABS Laboratory Tests 2 03/07/19 18:15: Nucleated Red Blood Cells % (auto) 0.0 03/07/19 22:03: Bedside Glucose (Misc Panel) 217H 03/08/19 06:02: Nucleated Red Blood Cells % (auto) 0.0, Anion Gap 3L, Glomerular Filtration Rate > 60.0, Calcium Level 7.5L, Phosphorus Level 2.9#, Magnesium Level 1.9 03/08/19 11:40: Bedside Glucose (Misc Panel) 221H 03/08/19 16:36: Bedside Glucose (Misc Panel) 140H CBC/BMP Laboratory Tests 03/07/19 18:15 03/08/19 06:02 03/08/19 12:54 Microbiology Microbiology 03/07/19 Stool Occult Blood (PEG) - Final, Complete 02/28/19 Respiratory Virus Panel (PCR) (PEG) - Final, Complete Parainfluenza 1 (Piv1) Human Rhinovirus/Enterovirus 02/28/19 Blood Culture - Final, Complete NO GROWTH AFTER 5 DAYS 02/28/19 Gram Stain - Final, Complete 02/28/19 Sputum Culture - Final, Complete Haemophilus Influenzae 02/28/19 Blood Culture - Final, Complete NO GROWTH AFTER 5 DAYS ELFEGO THOMAS MD Mar 08, 2019 17:22
[2019-03-08] MEDS: FINASTERIDE 5 MG TAB PO SCH (21:42)
[2019-03-08] MEDS: TAMSULOSIN 0.4 MG CAP PO SCH (21:43)
[2019-03-08] MEDS: rOPINIRole 0.25 MG TAB(REQUIP) PO PRN (21:43)
[2019-03-08] MEDS: MAGNESIUM CHLORIDE 64 MG TABCR (SLO MAG) PO SCH (21:44)
[2019-03-08 22:00] VITALS: BP 113/71
[2019-03-09] MEDS: SODIUM CHLORIDE HYPERTONIC 3% 15ML NEB SOL INH SCH ×4 (01:29→20:40)
[2019-03-09] MEDS: IPRATROPIUM 0.5MG/ALBUTEROL 2.5MG INH SOL UD 3ML (DUONEB)(J7620) NEB PRN ×3 (01:29→20:40)
[2019-03-09 06:00] VITALS: BP 113/66
[2019-03-09 06:47] LABS: HEMATOCRIT 27.6 % (42.0-52.0); HEMOGLOBIN 8.6 g/dl (13.5-17.5); MEAN CORPUSCULAR HEMOGLOBIN 28.9 pg (27.0-33.0); MEAN CORPUSCULAR HGB CONC 31.2 g/dl (32.0-36.5); MEAN CORPUSCULAR VOLUME 92.6 fl (80.0-96.0); PLATELET COUNT, AUTOMATED 261 10^3/uL (150-450); RED BLOOD COUNT 2.98 10^6/uL (4.30-6.10); WHITE BLOOD COUNT 9.2 10^3/uL (4.0-10.0)
[2019-03-09 07:11] LABS: BLOOD UREA NITROGEN 23 MG/DL (7-18); CARBON DIOXIDE LEVEL 35 MEQ/L (21-32); CHLORIDE LEVEL 106 MEQ/L (98-107); GLOMERULAR FILTRATION RATE > 60.0 (>35); GLUCOSE, FASTING 144 MG/DL (70-100); SODIUM LEVEL 145 MEQ/L (136-145)
[2019-03-09] MEDS: SYMBICORT 160/4.5MCG INHALER 6GM INH SCH ×2 (07:26→20:41)
[2019-03-09 09:18] VITALS: BP 119/65
[2019-03-09] MEDS: HumaLOG INSULIN (NovoLOG) PER UNIT SC SCH ×4 (09:20→21:00)
[2019-03-09] MEDS: AUGMENTIN 875 MG TAB PO SCH ×2 (09:20→21:36)
[2019-03-09] MEDS: predniSONE 2.5 MG TAB PO SCH (09:21)
[2019-03-09] MEDS: ASPIRIN 81 MG ENTERIC TAB PO SCH (09:21)
[2019-03-09] MEDS: PANTOPRAZOLE 40MG TAB (PROTONIX) PO SCH (09:21)
[2019-03-09] MEDS: APIXABAN 5 MG TAB (ELIQUIS) PO SCH ×2 (09:21→21:36)
[2019-03-09] MEDS: guaiFENesin ER 600 MG TAB PO SCH ×2 (09:21→21:37)
[2019-03-09] MEDS: atenoloL 50 MG TAB PO SCH ×3 (09:22→21:37)
[2019-03-09] MEDS: KETOCONAZOLE 2% CREAM TOP SCH ×2 (09:23→21:39)
[2019-03-09] MEDS: DIAPER RELIEF PASTE (DESITIN) 60GM TOP SCH ×2 (09:23→21:41)
[2019-03-09] MEDS: traMADol 50 MG TAB PO PRN ×2 (09:38→21:36)
[2019-03-09] MEDS: HYDROCORTISONE 1% CREAM 30 GM TOP SCH ×2 (12:51→21:38)
[2019-03-09] MEDS: CARBAMIDE PEROXIDE 6.5% OTIC SOLN 15ML AU SCH ×2 (13:56→21:39)
[2019-03-09 14:00] VITALS: BP 117/64
[2019-03-09 16:39] VITALS: BP 119/64
--- NOTE | 2019-03-09 17:25 | IPNPDOC ---
Date Seen The patient was seen on 03/09/19. Progress Note HISTORY OF PRESENT ILLNESS: 83-year-old male with past medical history of COPD on home oxygen, atrial fibrillation status post from a pacemaker 2 and watchman procedure, currently on Eliquis, hypertension and GERD presents from home with nausea, vomiting, diarrhea and worsening productive cough. Patient was admitted for pneumonia last month, discharged 2 weeks ago, reports persistence of sym ptoms, which have worsened over the past 48-72 hours with productive sputum, vomiting and diarrhea. Patient has had very poor oral intake because of the vomiting. He has not required additional oxygen supplementation at home during this time. He denies any sick contacts, no other complaints at this time. He denies any chest pain, headache, abdominal pain or joint pain at this time. 03/08/2019 Patient sitting in chair, reports significant improvement in dyspnea, cough and sputum production, has more energy, eating more as well as participating with physical therapy. 03/09/2019 Patient reports improvement in dyspnea, cough, appetite and physical activity. He has a history of phimosis which he reports is getting worse, would like a topical ointment if possible, no other complaints. 10 point review of system is negative except for above HOME MEDICATIONS: Please see below. PHYSICAL EXAMINATION: VITAL SIGNS: Please see below. GENERAL: No distress HEENT: Normocephalic, atraumatic, moist mucous membranes NECK: Supple CARDIOVASCULAR EXAMINATION: Irregularly irregular RESPIRATORY EXAMINATION: diminished in the right lower lobe, bibasilar crackles appreciated, no wheezing ABDOMINAL EXAMINATION: Soft, nontender, nondistended, positive bowel sounds EXTREMITIES: Range of motion intact SKIN: No rash NEUROLOGICAL EXAMINATION: Alert and oriented 3, no focal deficits PSYCHIATRIC EXAMINATION: Calm and cooperative LABORATORY DATA: See below. MICROBIOLOGY: Please see below. ASSESSMENT: 83-year-old male, past medical history of COPD, atrial fibrillation, hypertension and GERD who was recently admitted for pneumonia, presents with recurrent symptoms. PLAN: 1. Viral infection with superimposed bacterial Pneumonia. Respiratory viral panel positive for parainfluenza and human rhinovirus, likely with superimposed bacterial pneumonia, Zosyn discontinued, continue Augmentin, can likely discontinue antibiotics after tomorrow, sputum cultures grew Haemophilus influenza, blood culture negative. Continue Mucinex and incentive spirometer. 2. Acute kidney injury. Likely due to poor oral intake along with vomiting and diarrhea, resolved with IV hydration, will monitor. 3. Phimosis. Started on hydrocortisone cream 4. Atrial fibrillation. Status post permanent pacemaker 2, status post ablation, status post watchman procedure Continue Eliquis, continue atenolol and Cardizem for rate control. 5. Hypertension. Continue home meds. (Atenolol and Cardizem) 6. GERD. Continue home PPI 7. COPD Stable, continue home regimen. DVT prophylaxis: Eliquis GI prophylaxis: Home PPI VS, I&O, 24H, Fishbone Vital Signs/I&O Vital Signs Date Time Temp Pulse Resp B/P (MAP) Pulse Ox O2 Delivery O2 Flow Rate FiO2 03/09/19 16:40 71 119/64 03/09/19 14:00 97.8 16 93 Nasal Cannula 2.0 I&O- Last 24 Hours up to 6 AM 03/09/19 06:00 Intake Total 1345 ml Output Total 0 ml Balance 1345 ml Laboratory Data 24H LABS Laboratory Tests 2 03/08/19 21:36: Bedside Glucose (Misc Panel) 205H 03/09/19 06:13: Nucleated Red Blood Cells % (auto) 0.0, Anion Gap 4L, Glomerular Filtration Rate > 60.0, Calcium Level 8.0L 03/09/19 11:30: Bedside Glucose (Misc Panel) 158H 03/09/19 13:45: Bedside Glucose (Misc Panel) 172H 03/09/19 17:02: Bedside Glucose (Misc Panel) 127H CBC/BMP Laboratory Tests 03/09/19 06:13 Microbiology Microbiology 03/07/19 Stool Occult Blood (PEG) - Final, Complete 02/28/19 Respiratory Virus Panel (PCR) (PEG) - Final, Complete Parainfluenza 1 (Piv1) Human Rhinovirus/Enterovirus 02/28/19 Blood Culture - Final, Complete NO GROWTH AFTER 5 DAYS 02/28/19 Gram Stain - Final, Complete 02/28/19 Sputum Culture - Final, Complete Haemophilus Influenzae 02/28/19 Blood Culture - Final, Complete NO GROWTH AFTER 5 DAYS ELFEGO THOMAS MD Mar 09, 2019 17:25
[2019-03-09] MEDS: rOPINIRole 0.25 MG TAB(REQUIP) PO PRN (21:35)
[2019-03-09] MEDS: FINASTERIDE 5 MG TAB PO SCH (21:36)
[2019-03-09] MEDS: TAMSULOSIN 0.4 MG CAP PO SCH (21:37)
[2019-03-09] MEDS: MAGNESIUM CHLORIDE 64 MG TABCR (SLO MAG) PO SCH (21:38)
[2019-03-09 22:00] VITALS: BP 117/63
[2019-03-10] MEDS: IPRATROPIUM 0.5MG/ALBUTEROL 2.5MG INH SOL UD 3ML (DUONEB)(J7620) NEB PRN ×2 (03:09→15:35)
[2019-03-10] MEDS: SODIUM CHLORIDE HYPERTONIC 3% 15ML NEB SOL INH SCH ×4 (03:09→20:00)
[2019-03-10 06:00] VITALS: BP 120/65
[2019-03-10 06:21] LABS: HEMATOCRIT 24.6 % (42.0-52.0); HEMOGLOBIN 7.8 g/dl (13.5-17.5); MEAN CORPUSCULAR HEMOGLOBIN 28.7 pg (27.0-33.0); MEAN CORPUSCULAR HGB CONC 31.7 g/dl (32.0-36.5); MEAN CORPUSCULAR VOLUME 90.4 fl (80.0-96.0); PLATELET COUNT, AUTOMATED 207 10^3/uL (150-450); RED BLOOD COUNT 2.72 10^6/uL (4.30-6.10); WHITE BLOOD COUNT 8.5 10^3/uL (4.0-10.0)
[2019-03-10 06:48] LABS: BLOOD UREA NITROGEN 23 MG/DL (7-18); CALCIUM LEVEL 8.1 MG/DL (8.8-10.2); CARBON DIOXIDE LEVEL 35 MEQ/L (21-32); CHLORIDE LEVEL 108 MEQ/L (98-107); CREATININE FOR GFR 1.03 MG/DL (0.70-1.30); GLOMERULAR FILTRATION RATE > 60.0 (>35); GLUCOSE, FASTING 96 MG/DL (70-100); POTASSIUM SERUM 3.8 MEQ/L (3.5-5.1); SODIUM LEVEL 145 MEQ/L (136-145)
[2019-03-10] MEDS: SYMBICORT 160/4.5MCG INHALER 6GM INH SCH ×2 (07:29→20:29)
[2019-03-10] MEDS: HumaLOG INSULIN (NovoLOG) PER UNIT SC SCH ×4 (07:30→21:00)
[2019-03-10] MEDS: predniSONE 2.5 MG TAB PO SCH (08:29)
[2019-03-10] MEDS: PANTOPRAZOLE 40MG TAB (PROTONIX) PO SCH (08:29)
[2019-03-10] MEDS: AUGMENTIN 875 MG TAB PO SCH (08:29)
[2019-03-10] MEDS: traMADol 50 MG TAB PO PRN ×2 (08:29→21:46)
[2019-03-10] MEDS: guaiFENesin ER 600 MG TAB PO SCH ×2 (08:29→21:47)
[2019-03-10] MEDS: atenoloL 50 MG TAB PO SCH ×3 (08:30→21:53)
[2019-03-10] MEDS: DIAPER RELIEF PASTE (DESITIN) 60GM TOP SCH ×2 (08:31→21:48)
[2019-03-10] MEDS: CARBAMIDE PEROXIDE 6.5% OTIC SOLN 15ML AU SCH ×2 (08:31→21:47)
[2019-03-10] MEDS: HYDROCORTISONE 1% CREAM 30 GM TOP SCH ×2 (08:31→21:47)
[2019-03-10] MEDS: KETOCONAZOLE 2% CREAM TOP SCH ×2 (09:46→21:48)
[2019-03-10] MEDS: APIXABAN 5 MG TAB (ELIQUIS) PO SCH ×2 (13:32→21:47)
[2019-03-10] MEDS: ASPIRIN 81 MG ENTERIC TAB PO SCH (13:32)
--- NOTE | 2019-03-10 13:40 | IPNPDOC ---
Subjective Date Seen The patient was seen on 03/10/19. Subjective Chief Complaint/HPI Patient feels much better. Offers no new complaints. The present time General: Denies: ROS Unobtainable, Chills, Night Sweats, Fatigue, Malaise, Normal Appetite, Other Symptoms Constitutional: Denies: Chills, Fever, Malaise, Night Sweats, Weakness, Fatigue, Weight Loss, Lethargy, Other Pulmonary: Denies: Dyspnea, Cough, Pleuritic Chest Pain, Other Symptoms Cardiovascular: Denies: Chest Pain, Palpitations, Orthopnea, Paroxysmal Noc. Dyspnea, Edema, Lt Headedness, Other Symptoms Gastrointestinal: Denies: Nausea, Vomiting, Abdominal Pain, Diarrhea, Constipation, Melena, Hematochezia, Other Symptoms Musculoskeletal: Denies: Neck Pain, Back Pain, Shoulder Pain, Arm Pain, Hand Pain, Leg Pain, Foot Pain, Joint Pain, Muscle Pain, Spasms, Other Symptoms Neurological: Denies: Weakness, Numbness, Incoordination, Change in speech, Confusion, Seizures, Other Symptoms Objective Physical Examination General Exam: Positive: Alert, Cooperative Eye Exam: Positive: PERRLA, Conjunctiva & lids normal Heart Exam: Positive: Rate Normal, Normal S1, Normal S2 Abdomen Exam: Positive: Normal bowel sounds, Soft, Tenderness Skin Exam: Positive: Nl turgor and temperature Neuro Exam: Positive: Strength at 5/5 X4 ext, Normal Tone, Sensation Intact Psych Exam: Positive: Oriented x 3 Assessment /Plan Problems (1) Pneumonia Status: Acute Problem Text: Viral infection with superimposed bacterial Pneumonia. Respiratory viral panel positive for parainfluenza and human rhinovirus, likely with superimposed bacterial pneumonia, Zosyn discontinued, DCPO antibiotics, sputum cultures grew Haemophilus influenza, blood culture negative. Continue Mucinex and incentive spirometer. Discharge planning (2) COPD (chronic obstructive pulmonary disease) Status: Chronic Problem Text: Continue home meds (3) Afib Status: Chronic Problem Text: Atrial fibrillation. Status post permanent pacemaker 2, status post ablation, status post watchman procedure Continue Eliquis, continue atenolol and Cardizem for rate control. (4) HTN (hypertension) Status: Chronic Problem Text: DD home meds (5) GERD (gastroesophageal reflux disease) Status: Chronic Problem Text: Continue home meds (6) DEVAN (acute kidney injury) Status: Acute Problem Text: Acute kidney injury. Likely due to poor oral intake along with vomiting and diarrhea, resolved with IV hydration, will monitor. Plan/VTE VTE Prophylaxis Ordered?: Yes VS, I&O, 24H, Fishbone Vital Signs/I&O Vital Signs Date Time Temp Pulse Resp B/P (MAP) Pulse Ox O2 Delivery O2 Flow Rate FiO2 03/10/19 09:00 2.0 03/10/19 08:59 17 Nasal Cannula 03/10/19 08:30 71 120/64 03/10/19 08:29 94 03/10/19 06:00 97.0 I&O- Last 24 Hours up to 6 AM 03/10/19 06:00 Intake Total 1080 ml Output Total 0 ml Balance 1080 ml Laboratory Data 24H LABS Laboratory Tests 2 03/09/19 13:45: Bedside Glucose (Misc Panel) 172H 03/09/19 17:02: Bedside Glucose (Misc Panel) 127H 03/09/19 20:32: Bedside Glucose (Misc Panel) 143H 03/10/19 06:00: Nucleated Red Blood Cells % (auto) 0.0, Anion Gap 2L, Glomerular Filtration Rate > 60.0, Calcium Level 8.1L 03/10/19 12:02: Bedside Glucose (Misc Panel) 126H CBC/BMP Laboratory Tests 03/10/19 06:00 Microbiology Microbiology 03/07/19 Stool Occult Blood (PEG) - Final, Complete 02/28/19 Respiratory Virus Panel (PCR) (PEG) - Final, Complete Parainfluenza 1 (Piv1) Human Rhinovirus/Enterovirus 02/28/19 Blood Culture - Final, Complete NO GROWTH AFTER 5 DAYS 02/28/19 Gram Stain - Final, Complete 02/28/19 Sputum Culture - Final, Complete Haemophilus Influenzae 02/28/19 Blood Culture - Final, Complete NO GROWTH AFTER 5 DAYS TRENT GREER MD Mar 10, 2019 13:40
[2019-03-10 14:00] VITALS: BP 122/65
[2019-03-10] MEDS: SODIUM CHLORIDE NASAL 0.65% SPRAY BTL (OCEAN) PRN (16:38)
[2019-03-10] MEDS: MAGNESIUM CHLORIDE 64 MG TABCR (SLO MAG) PO SCH (21:46)
[2019-03-10] MEDS: rOPINIRole 0.25 MG TAB(REQUIP) PO PRN (21:46)
[2019-03-10] MEDS: FINASTERIDE 5 MG TAB PO SCH (21:46)
[2019-03-10] MEDS: TAMSULOSIN 0.4 MG CAP PO SCH (21:47)
[2019-03-10 22:00] VITALS: BP 112/65
[2019-03-11] MEDS: SODIUM CHLORIDE HYPERTONIC 3% 15ML NEB SOL INH SCH ×2 (01:34→07:23)
[2019-03-11] MEDS: IPRATROPIUM 0.5MG/ALBUTEROL 2.5MG INH SOL UD 3ML (DUONEB)(J7620) NEB PRN ×2 (01:34→07:24)
[2019-03-11 06:00] VITALS: BP 123/65
[2019-03-11 07:10] LABS: BASO % 0.2 % (0.0-1.0); EOS % 0.3 % (0.0-3.0); HEMATOCRIT 23.8 % (42.0-52.0); HEMOGLOBIN 7.6 g/dl (13.5-17.5); LYMPH # 0.6 10^3/uL (1.5-5.0); LYMPH % 6.7 % (24.0-44.0); MEAN CORPUSCULAR HEMOGLOBIN 28.9 pg (27.0-33.0); MEAN CORPUSCULAR HGB CONC 31.9 g/dl (32.0-36.5); MEAN CORPUSCULAR VOLUME 90.5 fl (80.0-96.0); MONO # 0.8 10^3/uL (0.0-0.8); MONO % 8.3 % (0.0-5.0); NEUTROPHILS # 7.7 10^3/uL (1.5-8.5); NEUTROPHILS % 79.9 % (36.0-66.0); PLATELET COUNT, AUTOMATED 201 10^3/uL (150-450); RED BLOOD COUNT 2.63 10^6/uL (4.30-6.10); WHITE BLOOD COUNT 9.6 10^3/uL (4.0-10.0)
[2019-03-11] MEDS: HumaLOG INSULIN (NovoLOG) PER UNIT SC SCH ×2 (07:30→12:00)
[2019-03-11 07:38] LABS: ALBUMIN 1.5 GM/DL (3.2-5.2); ALT/SGPT 31 U/L (12-78); BILIRUBIN,TOTAL 0.3 MG/DL (0.2-1.0); BLOOD UREA NITROGEN 18 MG/DL (7-18); CALCIUM LEVEL 7.8 MG/DL (8.8-10.2); CARBON DIOXIDE LEVEL 33 MEQ/L (21-32); CHLORIDE LEVEL 108 MEQ/L (98-107); CREATININE FOR GFR 0.94 MG/DL (0.70-1.30); GLOMERULAR FILTRATION RATE > 60.0 (>35); GLUCOSE, FASTING 90 MG/DL (70-100); MAGNESIUM LEVEL 1.7 MG/DL (1.8-2.4); POTASSIUM SERUM 3.8 MEQ/L (3.5-5.1); SODIUM LEVEL 145 MEQ/L (136-145); TOTAL PROTEIN 4.4 GM/DL (6.4-8.2)
[2019-03-11] MEDS: SYMBICORT 160/4.5MCG INHALER 6GM INH SCH (09:00)
[2019-03-11 09:01] VITALS: BP 123/64
[2019-03-11] MEDS: atenoloL 50 MG TAB PO SCH (09:01)
[2019-03-11] MEDS: APIXABAN 5 MG TAB (ELIQUIS) PO SCH (09:02)
[2019-03-11] MEDS: guaiFENesin ER 600 MG TAB PO SCH (09:02)
[2019-03-11] MEDS: ASPIRIN 81 MG ENTERIC TAB PO SCH (09:02)
[2019-03-11] MEDS: PANTOPRAZOLE 40MG TAB (PROTONIX) PO SCH (09:02)
[2019-03-11] MEDS: predniSONE 2.5 MG TAB PO SCH (09:02)
[2019-03-11] MEDS: CARBAMIDE PEROXIDE 6.5% OTIC SOLN 15ML AU SCH (09:03)
[2019-03-11] MEDS: HYDROCORTISONE 1% CREAM 30 GM TOP SCH (09:03)
[2019-03-11] MEDS: traMADol 50 MG TAB PO PRN (09:03)
[2019-03-11] MEDS: KETOCONAZOLE 2% CREAM TOP SCH (09:04)
[2019-03-11] MEDS: DIAPER RELIEF PASTE (DESITIN) 60GM TOP SCH (09:05)
--- NOTE | 2019-03-11 12:26 | DS.PDOC ---
Discharge Summary General Date of Admission Feb 28, 2019 at 10:41 Date of Discharge 03/11/19 Discharge Summary PROCEDURES PERFORMED DURING STAY: None. ADMITTING DIAGNOSES: 1. A. fib, COPD, GERD, hypertension, pneumonia. DISCHARGE DIAGNOSES: 1. Atrial fibrillation, COPD, GERD, hypertension, pneumonia,Echo and para influenza viral infection,DEVAN COMPLICATIONS/CHIEF COMPLAINT: Afib,Copd,Gerd,Htn,Pneumonia. HISTORY OF PRESENT ILLNESS: . 83-year-old male with past medical history of COPD on home oxygen, atrial fibrillation status post from a pacemaker 2 and watchman procedure, currently on Eliquis, hypertension and GERD presents from home with nausea, vomiting, diarrhea and worsening productive cough. Patient was admitted for pneumonia last month, discharged 2 weeks ago, reports persistence of s ymptoms, which have worsened over the past 48-72 hours with productive sputum, vomiting and diarrhea. Patient has had very poor oral intake because of the vomiting. He has not required additional oxygen supplementation at home during this time. He denies any sick contacts, no other complaints at this time. He denies any chest pain, headache, abdominal pain or joint pain at this time. HOSPITAL COURSE: Viral infection with superimposed bacterial Pneumonia. Respiratory viral panel positive for parainfluenza and human rhinovirus, likely with superimposed bacterial pneumonia, he was initially started on IV Zosyn which was discontinued and was started on by mouth Augmentin is patient's cultures grew Haemophilus influenza and blood cultures were negative. latter chest x-ray was negative. Afebrile and the by mouth Augmentin was DC'd as well Continue Mucinex and incentive spirometer. Patient is clinically stable and will be discharged home today on all current medications Follow-up With PCP in one week Patient's COPD remained stable and will continue all home meds Regarding patient's Atrial fibrillation. Status post permanent pacemaker 2, status post ablation, status post watchman procedure Continue Eliquis, continue atenolol and Cardizem for rate control. Hypertension remained under control and will continue home meds GERD:will continue home meds as well During his stay in the hospital also was found to have acute kidney injury, most likely secondary to poor oral intake with nausea and vomiting and diarrhea, Patient was started on IV fluids and which has resolved with hydration. DISCHARGE MEDICATIONS: Please see below. ALLERGIES: Please see below. PHYSICAL EXAMINATION ON DISCHARGE: VITAL SIGNS: Please see below. GENERAL: Within normal limits HEENT: Sheila extraocular muscles intact NECK: Supple, no JVD, no lymphadenopathy CARDIOVASCULAR EXAMINATION: S1, S2, regular RESPIRATORY EXAMINATION: Clear to A&P ABDOMINAL EXAMINATION: , Soft, nontender, bowel sounds present EXTREMITIES: No clubbing, cyanosis, edema SKIN: Within normal limits NEUROLOGICAL EXAMINATION: . No focal motor sensory deficit PSYCHIATRIC EXAMINATION: Normal LABORATORY DATA: Please see below. IMAGING: Abdominal pelvis CT:1. Lung bases demonstrate moderate consolidations and small effusions along with cardiomegaly and small pericardial effusion. 2. No acute abdominopelvic pathology appreciated. 3. Chronic stable findings as described above and essentially unchanged compared to 08/29/2017. PROGNOSIS: Good ACTIVITY: As tolerated. DIET: As tolerated DISCHARGE PLAN: Follow with PCP in one week DISPOSITION: . Home DISCHARGE INSTRUCTIONS: 1. As per discharge instructions. ITEMS TO FOLLOWUP ON ON OUTPATIENT: 1. Follow PCP in one week. DISCHARGE CONDITION: Stable. TIME SPENT ON DISCHARGE: 38 minutes. Vital Signs/I&Os Vital Signs Date Time Temp Pulse Resp B/P (MAP) Pulse Ox O2 Delivery O2 Flow Rate FiO2 03/11/19 09:33 18 Room Air 03/11/19 09:01 71 123/64 03/11/19 09:00 2.0 03/11/19 06:00 97.1 99 I&O- Last 24 Hours up to 6 AM 03/11/19 06:00 Intake Total 2260 ml Output Total 0 ml Balance 2260 ml Laboratory Data Labs 24H Laboratory Tests 2 03/10/19 16:41: Bedside Glucose (Misc Panel) 164H 03/10/19 20:55: Bedside Glucose (Misc Panel) 202H 03/11/19 06:25: Immature Granulocyte % (Auto) 4.6H, Neutrophils (%) (Auto) 79.9H, Lymphocytes (%) (Auto) 6.7L, Monocytes (%) (Auto) 8.3H, Eosinophils (%) (Auto) 0.3, Basophils (%) (Auto) 0.2, Neutrophils # (Auto) 7.7, Lymphocytes # (Auto) 0.6L, Monocytes # (Auto) 0.8, Eosinophils # (Auto) 0.0, Basophils # (Auto) 0.0, Nucleated Red Blood Cells % (auto) 0.0, Anion Gap 4L, Glomerular Filtration Rate > 60.0, Calcium Level 7.8L, Magnesium Level 1.7L, Total Bilirubin 0.3, Aspartate Amino Transf (AST/SGOT) 25, Alanine Aminotransferase (ALT/SGPT) 31, Alkaline Phosphatase 69, Total Protein 4.4L, Albumin 1.5L, Albumin/Globulin Ratio 0.52L 03/11/19 11:21: Bedside Glucose (Misc Panel) 149H CBC/BMP Laboratory Tests 03/11/19 06:25 FSBS Laboratory Tests Test 03/10/19 16:41 03/10/19 20:55 03/11/19 11:21 Range/Units Bedside Glucose (Misc Panel) 164 202 149 83-110 MG/DL Microbiology Microbiology 03/07/19 Stool Occult Blood (PEG) - Final, Complete Discharge Medications Scheduled Apixaban (Eliquis) 2.5 Mg Tab, 2.5 MG PO BID, (Reported) Aspirin (Aspir 81) 81 Mg Tab, 81 MG PO DAILY, (Reported) Atenolol (Atenolol) 50 Mg Tablet, 50 MG PO TID, (Reported) Budesonide/Formoterol (Symbicort 160-4.5 Mcg Inhaler) 60 Puff/Inhaler Aers, 2 PUFFS INH BID, (Reported) Diltiazem HCl (Cardizem) 120 Mg Tablet, 60 MG PO TID, (Reported) Fenofibrate (Fenofibrate) 160 Mg Tab, 160 MG PO QHS, (Reported) Finasteride (Finasteride) 5 Mg Tab, 5 MG PO QHS, (Reported) Magnesium Chloride (Mag64) 64 Mg Tablet.dr, 64 MG PO QHS, (Reported) [place]-3 Fatty Acids/Fish Oil (Fish Oil 1,200 mg Softgel) 1 Each Capsule, 1,200 MG PO BID, (Reported) Omeprazole (Omeprazole) 40 Mg Cap, 40 MG PO DAILY, (Reported) Potassium Chloride (Potassium Chloride) 20 Meq Tab.er.prt, 20 MEQ PO DAILY, (Reported) Prednisone (Prednisone) 5 Mg Tab, 5 MG PO DAILY, (Reported) Prednisone (Prednisone) 5 Mg Tablet, 2.5 MG PO QHS, (Reported) Tamsulosin Hcl (Tamsulosin HCl) 0.4 Mg Capsule, 0.4 MG PO QHS, (Reported) Torsemide (Torsemide) 10 Mg Tablet, 10 MG PO DAILY, (Reported) Scheduled PRN Acetaminophen (Acetaminophen) 500 Mg Tablet, 1,000 MG PO Q8H PRN for PAIN, (R eported) Levalbuterol Hydrochloride (Xopenex Hfa) 45 Mcg/Act Aer, 2 PUFF INH Q4H PRN for SOB/WHEEZING, (Reported) Ondansetron HCl (Ondansetron HCl) 4 Mg Tablet, 4 MG PO Q8H PRN for nausea/vomiting, (Reported) Ropinirole HCl (Ropinirole HCl) 0.25 Mg Tablet, 0.25 MG PO QPM PRN for RESTLESSNESS, (Reported) Tramadol HCl (Tramadol HCl) 50 Mg Tab, 50 MG PO TID PRN for PAIN, (Reported) Allergies Coded Allergies: azithromycin (Verified Allergy, Unknown, 02/14/19) clarithromycin (Verified Allergy, Unknown, 02/14/19) fluconazole (Verified Allergy, Unknown, 02/14/19) fluticasone (Verified Allergy, Unknown, 02/14/19) metformin (Verified Allergy, Unknown, 02/14/19) procaine (Verified Allergy, Unknown, 02/14/19) TRENT GREER MD Mar 11, 2019 12:26
== END 2019-03-11 14:31 | disposition home health service (06) | DRG 152 ==
LOC: M ED 08:57 → EDBD 08:57 → M ED INP 10:41 → M MSPAV 11:59
PROVIDERS: ADMIT Internal Medicine; ATTEND Internal Medicine
PROC: 30233N1 Transfusion of Nonautologous Red Blood Cells into Peripheral Vein, Percutaneous Approach (ICD-10-PCS; principal; 2019-03-07)
DX: J06.9 Acute upper respiratory infection, unspecified (principal); J14 Pneumonia due to Hemophilus influenzae; J44.0 Chronic obstructive pulmonary disease with (acute) lower respiratory infection; N17.9 Acute kidney failure, unspecified; I48.20 Chronic atrial fibrillation, unspecified; J96.10 Chronic respiratory failure, unspecified whether with hypoxia or hypercapnia; B97.89 Other viral agents as the cause of diseases classified elsewhere; I10 Essential (primary) hypertension; K21.9 Gastro-esophageal reflux disease without esophagitis; E78.5 Hyperlipidemia, unspecified; N47.1 Phimosis; R11.2 Nausea with vomiting, unspecified; R19.7 Diarrhea, unspecified; Z95.0 Presence of cardiac pacemaker; Z99.81 Dependence on supplemental oxygen; Z87.891 Personal history of nicotine dependence; Z79.01 Long term (current) use of anticoagulants; Z79.82 Long term (current) use of aspirin; Z79.52 Long term (current) use of systemic steroids; Z79.899 Other long term (current) drug therapy; Z88.1 Allergy status to other antibiotic agents; Z88.8 Allergy status to other drugs, medicaments and biological substances

== ENCOUNTER → 2019-03-29 | Outpatient (CLI) | payer MEDICARE ==
[~2019-03-29] MED LIST changes: +MAGN64TASA PO; +ONDA4TAB5 PO; +POTA20TA6 PO; +PRED1TABL PO
--- NOTE | 2019-03-29 15:40 | REP ---
Single view chest: 03/29/2019. Indication: Dyspnea. Comparison: 03/06/2019. Findings: The previously noted right lung base consolidation as well as the left-sided pleural effusion have resolved. There is no air space consolidation on the current study. Lung hyperinflation and chronic fibrotic interstitial changes are present. Left-sided dual lead pacer is unchanged in position. The previously noted nasogastric tube has been discontinued. There is no pleural effusion or pneumothorax on the current exam. Impression: Resolution of the pneumonia and left pleural effusion. Electronically Signed by Luis A Scanlon DO 03/29/2019 03:32 P
== END ==
LOC: M WUC 14:49
PROVIDERS: ATTEND Internal Medicine
DX: J18.9 Pneumonia, unspecified organism (principal); J90 Pleural effusion, not elsewhere classified

== ENCOUNTER 2019-03-31 10:57 | Inpatient (IN) | payer MEDICARE ==
[~2019-03-31] VITALS: Ht 170.2 cm; Wt 61.3 kg
[~2019-03-31 10:57] MED LIST changes: -PRED1TABL PO
[2019-03-31] MEDS: DIGOXIN INJ 0.5 MG/2 ML AMP (J1160) IV ONE ×2 (11:40→12:03)
[2019-03-31 11:43] LABS: BASO % 0.3 % (0.0-1.0); EOS # 0.1 10^3/uL (0.0-0.5); EOS % 0.5 % (0.0-3.0); HEMATOCRIT 31.3 % (42.0-52.0); HEMOGLOBIN 9.7 g/dl (13.5-17.5); LYMPH # 1.5 10^3/uL (1.5-5.0); LYMPH % 10.2 % (24.0-44.0); MEAN CORPUSCULAR HEMOGLOBIN 28.8 pg (27.0-33.0); MEAN CORPUSCULAR VOLUME 92.9 fl (80.0-96.0); NEUTROPHILS # 10.5 10^3/uL (1.5-8.5); PLATELET COUNT, AUTOMATED 148 10^3/uL (150-450); RED BLOOD COUNT 3.37 10^6/uL (4.30-6.10); WHITE BLOOD COUNT 14.8 10^3/uL (4.0-10.0)
[2019-03-31] MEDS ORDERED: NS 500 ML IV ONE ×4 (11:45→18:30)
[2019-03-31 11:58] LABS: INR 1.14; PROTHROMBIN TIME 14.3 SECONDS (11.8-14.0)
[2019-03-31] MEDS ORDERED: atenoloL 25 MG TAB PO ONE (12:00)
--- NOTE | 2019-03-31 12:11 | REP ---
Clinical: Chest pain . Comparison: 03/29/2019, 03/06/2019. Findings: The mediastinum and cardiac silhouette are stable and dual lead pacemaker is again noted. The lung celis demonstrate diffuse chronic interstitial changes. Very subtle area of opacity in the right mid lung zone and left basilar atelectasis cannot be excluded. No focal consolidation. No effusion. No pneumothorax. Skeletal structures are intact. Impression: Diffuse chronic changes. Very subtle new areas of atelectasis in the right mid lung zone and left base cannot be excluded. Electronically Signed by Abhilash Nieves MD 03/31/2019 12:04 P
[2019-03-31 12:13] LABS: MONO # 2.4 10^3/uL (0.0-0.8)
[2019-03-31 12:20] LABS: ALBUMIN 2.5 GM/DL (3.2-5.2); ALT/SGPT 14 U/L (12-78); BILIRUBIN,DIRECT 0.2 MG/DL (0.0-0.2); BILIRUBIN,TOTAL 0.6 MG/DL (0.2-1.0); BLOOD UREA NITROGEN 16 MG/DL (7-18); CALCIUM LEVEL 8.5 MG/DL (8.8-10.2); CARBON DIOXIDE LEVEL 32 MEQ/L (21-32); CHLORIDE LEVEL 103 MEQ/L (98-107); CK-MB VALUE MASS < 1.0 NG/ML (<3.6); CPK CREATINE PHOSPHOKINASE 16 U/L (39-308); CREATININE FOR GFR 1.44 MG/DL (0.70-1.30); GLOMERULAR FILTRATION RATE 49.8 (>35); GLUCOSE, FASTING 151 MG/DL (70-100); LIPASE 195 U/L (73-393); MB/CK RELATIVE INDEX 6.25 (< OR =4); POTASSIUM SERUM 3.6 MEQ/L (3.5-5.1); SODIUM LEVEL 143 MEQ/L (136-145); TOTAL PROTEIN 5.2 GM/DL (6.4-8.2); TROPONIN I < 0.02 NG/ML (< 0.10)
[2019-03-31] MEDS ORDERED: AMIODARONE HCL 150 MG in IV 1 EA IV STA (12:43)
[2019-03-31] MEDS ORDERED: AMIODARONE 200 MG TAB (PACERONE) PO ONE (12:45)
--- NOTE | 2019-03-31 13:27 | ECGEPIP ---
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
--- NOTE | 2019-03-31 13:27 | ECGEPIP ---
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
--- NOTE | 2019-03-31 14:17 | REP ---
Clinical: Shortness of breath. Pneumonia. Technique: Axial noncontrast images from the thoracic inlet to the upper abdomen with coronal and sagittal re-formations. Comparison: 03/04/2019. Findings: Emphysematous disease and chronic interstitial changes are again noted. Minimal left lower lobe/lingular atelectasis is appreciated. There is a 2.5 cm area of nodular consolidation along the basilar right upper lobe which may reflect pneumonia. No effusion. No pneumothorax. No obvious adenopathy. Atherosclerotic changes to the thoracic aorta and coronary arteries noted without aortic aneurysm or cardiomegaly. No significant pericardial effusion. Musculoskeletal structures are intact. Pacemaker with leads in the right atrium and right ventricle. Impression: 1. Minimal left basilar atelectasis and small nodular focal area of consolidation in that right upper lobe. Follow-up to resolution recommended. Electronically Signed by Abhilash Nieves MD 03/31/2019 02:08 P
[2019-03-31 16:14] LABS: BLOOD UREA NITROGEN 14 MG/DL (7-18); CALCIUM LEVEL 7.2 MG/DL (8.8-10.2); CARBON DIOXIDE LEVEL 30 MEQ/L (21-32); CHLORIDE LEVEL 110 MEQ/L (98-107); CK-MB VALUE MASS < 1.0 NG/ML (<3.6); CPK CREATINE PHOSPHOKINASE 15 U/L (39-308); GLOMERULAR FILTRATION RATE > 60.0 (>35); GLUCOSE, FASTING 116 MG/DL (70-100); MB/CK RELATIVE INDEX 6.67 (< OR =4); POTASSIUM SERUM 3.9 MEQ/L (3.5-5.1); SODIUM LEVEL 147 MEQ/L (136-145); TROPONIN I < 0.02 NG/ML (< 0.10)
[2019-03-31] MEDS ORDERED: PIPERACILLIN/TAZOBACTAM SOD 3.375 GM in D5W MINI-BAG PLUS 50 ML IV ONE (16:15)
[2019-03-31] MEDS ORDERED: PRED1TABL PO (16:48)
[2019-03-31] MEDS ORDERED: SODIUM CHLORIDE 0.9% 1000ML IV ONE (17:45)
--- NOTE | 2019-03-31 18:05 | HPEPDOC ---
General Date of Admission 03/31/19 Date of Service: Mar 31, 2019 Chief Complaint The patient is a 83-year-old male admitted with a reason for visit of general weakness. 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 Was seen by PMD on 03/29/19 and diltiazem and betablocker ( Atenolol 100 bid and diltiazem 60 tid) stopped. Today he comes in to the ED with Sudden onset palpitations at 10:30 pm associated with extreme weakness dizziness and co nfusion all night long. He was found to have Afib with RVR with hypotension. Patient was given 1.5 liter of fluid boluses and digoxin. ED physician discussed with Peguero of cardiology and patient was given amiodarone IV and Oral and low dose betablocker with control of Heart rate. His blood pressure remains low normal. He had an elevated WBC. His CXR was suggestive of some new developing atelectasis compared to one form 03/29/[address] chest without contrast was done which showed Emphysematous disease and chronic interstitial changes are again noted. Minimal left lower lobe/lingular atelectasis is appreciated. There is a 2.5 cm area of nodular consolidation along the basilar right upper lobe which may reflect pneumonia. No effusion. No pneumothorax. This is the patient's third admission this year. his last admission was from 02/28 to 03/11 for pneumonia and afib with rvr, before that was from 02/14 to 02/18 also for pneumonia. Patient has been having poor appetite and poor oral intake with daily diarrhea since his discharge from the hospital on 03/11/19. The diarrhea stopped 3 days ago. He has been feeling dizzy and lightheaded for the past 1 week. He had ongoing daily diarrhea. He does have some chronic cough and intermittent nasal congestion. His visiting nurse found that his blood pressure was running low at home so he went to see his PMD on 03/29/19. He was dizzy light headed and had a presyncopal episode that day at the PMDs office and when they did his CXR. His CXR was clear and showed that his previous pneumonia has resolved. His atenolol and diltiazem was stopped but he was continued on his diuretic. However then it was found that he was taking double dose of diuretics as the same was prescribed by 2 physicians and he was taking both. He notes that his legs were very swollen till 1 week ago when all the swelling disappeared. Last night he was sleeping in his recliner downstairs and he woke up at about 10:30 pm to go to [facility] bathroom he was extremely dizzy lightheaded and stumbled his way to the bathroom there he sat for a while was nauseous, continued to be dizzy and ultimately was able to get back to his recliner. All night long he felt he was in a dream, could not focus and was confused, could not call for help. he also had severe pain in the lateral aspect of the right thigh and some on the left thigh. Everytime he would move he felt severe pain. it was burning in character and shooting down from the top of the thigh to just above the knee. Right was worse than the left. Ultimately his who sleeps upstairs woke up at 9:30 am and he was able to communicate that he needed to come to the hospital. Home Medications Scheduled Apixaban (Eliquis) 2.5 Mg Tab, 2.5 MG PO BID, (Reported) Aspirin (Aspir 81) 81 Mg Tab, 81 MG PO QPM, (Reported) Atenolol (Atenolol) 50 Mg Tablet, 100 MG PO BID, (Reported) ON HOLD SINCE 03/29/19 Budesonide/Formoterol (Symbicort 160-4.5 Mcg Inhaler) 60 Puff/Inhaler Aers, 2 PUFFS INH BID, (Reported) Diltiazem HCl (Cardizem) 120 Mg Tablet, 120 MG PO DAILY, (Reported) ON HOLD SINCE 03/29/19 Fenofibrate (Fenofibrate) 160 Mg Tab, 160 MG PO DAILY, (Reported) TAKES AROUND NOON Finasteride (Finasteride) 5 Mg Tab, 5 MG PO QHS, (Reported) Magnesium Chloride (Mag64) 64 Mg Tablet.dr, 64 MG PO QPM, (Reported) [place]-3 Fatty Acids/Fish Oil (Fish Oil 1,200 mg Softgel) 1 Each Capsule, 1,200 MG PO BID, (Reported) Omeprazole (Omeprazole) 40 Mg Cap, 40 MG PO DAILY, (Reported) Potassium Chloride (Potassium Chloride) 20 Meq Tab.er.prt, 10 MEQ PO QPM, (Reported) Prednisone (Prednisone) 5 Mg Tab, 5 MG PO DAILY, (Reported) TAKES WITH 2MG FOR 7 MG TOTAL DOSE Prednisone (Prednisone) 1 Mg Tablet, 2 MG PO DAILY, (Reported) TAKES WITH 5MG FOR 7 MG TOTAL DOSE Ropinirole HCl (Ropinirole HCl) 0.25 Mg Tablet, 0.25 MG PO QHS, (Reported) Tamsulosin Hcl (Tamsulosin HCl) 0.4 Mg Capsule, 0.4 MG PO QHS, (Reported) ON HOLD SINCE 03/29/19 Torsemide (Torsemide) 10 Mg Tablet, 10 MG PO DAILY, (Reported) Scheduled PRN Acetaminophen (Acetaminophen) 500 Mg Tablet, 1,000 MG PO Q8H PRN for PAIN, (Reported) TAKES WITH TRAMADOL PRN Levalbuterol Hydrochloride (Xopenex Hfa) 45 Mcg/Act Aer, 2 PUFF INH Q4H PRN for SOB/WHEEZING, (Reported) Tramadol HCl (Tramadol HCl) 50 Mg Tab, 50 MG PO TID PRN for PAIN, (Reported) TAKES WITH TYLENOL PRN Allergies Coded Allergies: fluconazole (Verified Allergy, Unknown, UNKNOWN REACTION, 03/31/19) fluticasone (Verified Allergy, Unknown, UNKNOWN REACTION, 03/31/19) metformin (Verified Allergy, Unknown, UNKNOWN REACTION, 03/31/19) petrolatum,white (Verified Allergy, Unknown, ITCH/RASH, 03/31/19) azithromycin (Verified Adverse Reaction, Unknown, LOWERS BP, 03/31/19) clarithromycin (Verified Adverse Reaction, Unknown, LOWERS BP, 03/31/19) procaine (Verified Adverse Reaction, Unknown, DIZZINESS, 03/31/19) Past Medical History Medical History COPD, Chronic Hypoxic respiratory failure, Atrial fibrillation s/p cardiac ablation, Watchman procedure, Hypertension with hypertensive heart disease, GERD, Hyperlipidemia, Chronic kidney disease stage III , History of asthma, Bilateral renal cysts, Restless leg syndrome, History of hematuria and history of polycystic kidney disease, 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 Surgical History 1. Permanent pacemaker 2 in 2002 and 2011 2. Ablation in december 2018 3. Watchman procedure. Family History Father with history of DE, Mother stomach cancer Social History * Smoker: former Smoker Alcohol: Denies Drugs: denies A-FIB/CHADSVASC A-FIB History Current/History of A-Fib/PAF?: Yes Current PO Anticoag Therapy: Yes Review of Systems Constitutional: Reports: Weakness, Fatigue; Denies: Chills, Fever, Night Sweats Eyes: Denies: Pain, Vision change ENT: Denies: Head Aches, Ear Pain, Dysphagia Skin: Denies: Rash, Lesions, Breakdown Pulmonary: Denies: Dyspnea, Cough Cardiovascular: Reports: Palpitations, Lt Headedness Gastrointestinal: Reports: Nausea, Diarrhea Genitourinary: Reports: Other Symptoms (no urine since last night); Denies: Dysuria, Frequency, Incontinence, Retention Hematologic: Denies: Bruising, Bleeding Excessively Musculoskeletal: Reports: Neck Pain, Back Pain, Leg Pain (both right an dleft thighs ) Neurological: Reports: Weakness, Confusion Physical Examination General Exam: Positive: Alert, Cooperative, No Acute Distress Eye Exam: Positive: PERRLA, Conjunctiva & lids normal, EOMI; Negative: Sclera icteric ENT Exam: Positive: Atraumatic, Mucous membr. moist/pink, Pharynx Normal Neck Exam: Positive: Supple; Negative: JVD, thyromegaly Chest Exam: Positive: Normal air movement, Other (crackles at both the bases, left greater that right. ); Negative: Rales, Rhonchi, Wheezing Heart Exam: Positive: Rate Normal, Tachycardic, Regular Rhythm, Normal S1, Normal S2; Negative: Gallops, Murmurs, Rubs Telemetry: Positive: Sinus Abdomen Exam: Positive: Normal bowel sounds, Soft; Negative: Tenderness, Hepatospenomegaly Extremity Exam: Negative: Clubbing, Cyanosis, Edema Neuro Exam: Positive: Normal Speech, Strength at 5/5 X4 ext, Normal Tone Psych Exam: Positive: Other (became very emotional and crying when discussing about advance directives) Vital Signs Vital Signs Date Time Temp Pulse Resp B/P (MAP) Pulse Ox O2 Delivery O2 Flow Rate FiO2 03/31/19 15:30 119/57 (77) 03/31/19 15:17 72 92 03/31/19 15:02 16 03/31/19 11:35 Nasal Cannula 2.0 03/31/19 11:10 98.7 Laboratory Data Labs 24H Laboratory Tests 2 03/31/19 11:31: Immature Granulocyte % (Auto) 2.0, Neutrophils (%) (Auto) 71.0H, Lymphocytes (%) (Auto) 10.2L, Monocytes (%) (Auto) 16.0H, Eosinophils (%) (Auto) 0.5, Basophils (%) (Auto) 0.3, Neutrophils # (Auto) 10.5H, Lymphocytes # (Auto) 1.5, Monocytes # (Auto) 2.4H, Eosinophils # (Auto) 0.1, Basophils # (Auto) 0.0, Nucleated Red Blood Cells % (auto) 0.0, Prothrombin Time 14.3H, Prothromb Time International Ratio 1.14, Anion Gap 8, Glomerular Filtration Rate 49.8, Lactic Acid Level 2.6*H, Calcium Level 8.5L, Total Bilirubin 0.6, Direct Bilirubin 0.2, Aspartate Amino Transf (AST/SGOT) 19, Alanine Aminotransferase (ALT/SGPT) 14, Alkaline Phosphatase 61, Total Creatine Kinase 16L, Creatine Kinase MB < 1.0, Creatine Kinase MB Relative Index 6.25H, Troponin I < 0.02, Total Protein 5.2L, Albumin 2.5L, Albumin/Globulin Ratio 0.93L, Lipase 195, Thyroid Stimulating Hormone (TSH) 1.850 03/31/19 15:28: Anion Gap 7L, Glomerular Filtration Rate > 60.0, Calcium Level 7.2#L, Total Creatine Kinase 15L, Creatine Kinase MB < 1.0, Creatine Kinase MB Relative Index 6.67H, Troponin I < 0.02 CBC/BMP Laboratory Tests 03/31/19 11:31 03/31/19 15:28 Microbiology Microbiology 03/31/19 Blood Culture, Received Pending Assessment/Plan 83 year old male with PMH of COPD, Chronic Hypoxic respiratory failure, Atrial fibrillation s/p cardiac ablation, Watchman procedure, Hypertension, GERD, Hyperlipidemia, Chronic kidney disease stage III , Bilateral renal cysts, BPH, Restless leg syndrome, History of hematuria , 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 Was seen by PMD on 03/29/19 and diltiazem and betablocker ( Atenolol 100 bid and diltiazem 60 tid) stopped. Today he comes in to the ED with Sudden onset palpita tions at 10:30 pm associated with extreme weakness dizziness and confusion. He was admitted for Hypotension, Afib with RVR, possible Pneumonia. Hypotension multifactorial due to hypovolemia on the back ground of being on antihypertensive and diuretics with possible underlying infection which really worsened last night due to possible onset of Afib with RVR due to sudden withdrawal of betablockers. patient appears volume depleted with higher that usual HB. probably due to poor intake with being on diuretics higher doses post hospitalization will give another 500 cc ivf bolus then start maintenance IVF. He received 1.5 liters in the ED. Suspicion of major infection causing the hypotension is low Possible Pneumonia Possibly viral pneumonia rule out bacterial infection respiratory panel is positive for human rhinovirus/enterovirus CT chest suggestive however i feel it is very close to the area of pneumonia in February so it may just be a resolving one and not a new one however in view of hypotension and lacticacidosis, WBC of 14.5 with cover with zosyn, No fever no major respiratory symptoms. blood cultures have been sent will send procalcitonin if negative will dc antibiotics. Afib with RVR Now resolved. Patient is in sinus rhythm. possibly due to betablocker withdrawal and hypotension As per Dr Tejada it takes 6 months for the full effect of cardiac ablation to occur. discussed with Dr Tejada over the phone. To start amiodarone 200mg daily and once blood pressure is better to restart on a small dose of betablocker will not start any diltiazem to follow up in the office in 1 week after discharge. continue eliquis COPD with Chronic Hypoxic respiratory failure stable and at baseline at present will continue home medications symbicort, prednisone, levalbuterol nebs prn. GERD continue home PPI Hyperlipidemia continue fenofibrate BPH continue finasteride but continue to hold flomax. Restless legs continue ropinirole Possible Bursitis on eduardo right tylenol prn. CKD stage 3 now creatinine better than known baseline. Avoid NSAIDS. Chronic anemia needs work up as outpatient no h/o bleeding. Plan / VTE VTE Prophylaxis Ordered?: Yes TITO CASILLAS MD Mar 31, 2019 16:53
[2019-03-31] MEDS ORDERED: LEVALBUTEROL 1.25 MG/0.5 ML CONCENTRATE NEB INH PRN (18:30)
[2019-03-31] MEDS ORDERED: ACETAMINOPHEN 500 MG TAB PO PRN (18:45)
[2019-03-31 19:00] VITALS: BP 112/64
[2019-03-31 20:00] VITALS: BP 137/62
[2019-03-31] MEDS: SYMBICORT 160/4.5MCG INHALER 6GM INH SCH (20:00)
--- NOTE | 2019-03-31 20:22 | ECGEPIP ---
[facility] - ED Test Date: 2019-03-31 Pat Name: MARCY LEE Department: Room: - Gender: Male Seam Hammerer: TACOS : 1935 Requested By: DEBBIE Neal Order Number: [id number] Reading MD: Alex Sarmiento Measurements Intervals [place] Rate: 111 P: MD: 0 QRS: -3 QRSD: 82 T: 87 QT: 334 QTc: 456 Interpretive Statements ATRIAL FIBRILLATION WITH RAPID VENTRICULAR RESPONSE PACEMAKER WITHOUT CAPTURE NONSPECIFIC ST & T-WAVE ABNORMALITY Electronically Signed on 03-31-2019 20:22:29 EST by Alex Sarmiento
[2019-03-31] MEDS: FENOFIBRATE 145 MG TAB (TRICOR) PO SCH (20:52)
[2019-03-31] MEDS: rOPINIRole 0.25 MG TAB(REQUIP) PO SCH (20:52)
[2019-03-31] MEDS: ASPIRIN 81 MG ENTERIC TAB PO SCH (20:52)
[2019-03-31] MEDS: FINASTERIDE 5 MG TAB PO SCH (20:53)
[2019-03-31] MEDS: NS 1,000 ML IV SCH (20:53)
[2019-03-31] MEDS: PIPERACILLIN/TAZOBACTAM SOD 3.375 GM in D5W MINI-BAG PLUS 50 ML IV SCH (20:56)
[2019-03-31 21:00] VITALS: BP 116/59
[2019-03-31] MEDS ORDERED: APIXABAN 2.5 MG TAB (ELIQUIS) PO SCH (21:00)
[2019-03-31 22:00] VITALS: BP 117/63
[2019-03-31] MEDS: traMADol 50 MG TAB PO PRN (22:27)
[2019-04-01] VITALS (10 sets, daily range): BP systolic 109–143; BP diastolic 56–65
[2019-04-01] MEDS ORDERED: SODIUM CHLORIDE NASAL 0.65% SPRAY BTL (OCEAN) PRN (04:30)
[2019-04-01 04:56] LABS: BASO % 0.3 % (0.0-1.0); EOS # 0.1 10^3/uL (0.0-0.5); EOS % 0.9 % (0.0-3.0); HEMATOCRIT 22.1 % (42.0-52.0); LYMPH # 0.9 10^3/uL (1.5-5.0); LYMPH % 11.9 % (24.0-44.0); MEAN CORPUSCULAR HEMOGLOBIN 29.2 pg (27.0-33.0); MEAN CORPUSCULAR HGB CONC 31.7 g/dl (32.0-36.5); MEAN CORPUSCULAR VOLUME 92.1 fl (80.0-96.0); MONO # 1.1 10^3/uL (0.0-0.8); MONO % 14.6 % (0.0-5.0); NEUTROPHILS # 5.3 10^3/uL (1.5-8.5); NEUTROPHILS % 70.3 % (36.0-66.0); WHITE BLOOD COUNT 7.5 10^3/uL (4.0-10.0)
[2019-04-01] MEDS: PIPERACILLIN/TAZOBACTAM SOD 3.375 GM in D5W MINI-BAG PLUS 50 ML IV SCH ×4 (05:02→21:16)
[2019-04-01] MEDS: NS 1,000 ML IV SCH (05:02)
[2019-04-01 05:11] LABS: PLATELET COUNT, AUTOMATED 99 10^3/uL (150-450)
[2019-04-01 05:16] LABS: CREATININE FOR GFR 1.4 MG/DL (0.70-1.30); GLOMERULAR FILTRATION RATE 51.4 (>35); MAGNESIUM LEVEL 1.6 MG/DL (1.8-2.4); POTASSIUM SERUM 3.7 MEQ/L (3.5-5.1)
[2019-04-01 06:13] LABS: HEMATOCRIT 23.2 % (42.0-52.0); MEAN CORPUSCULAR HEMOGLOBIN 28.2 pg (27.0-33.0); MEAN CORPUSCULAR HGB CONC 30.2 g/dl (32.0-36.5); MEAN CORPUSCULAR VOLUME 93.5 fl (80.0-96.0); RED BLOOD COUNT 2.48 10^6/uL (4.30-6.10); WHITE BLOOD COUNT 7.1 10^3/uL (4.0-10.0)
[2019-04-01 06:20] LABS: PLATELET COUNT, AUTOMATED 94 10^3/uL (150-450)
[2019-04-01] MEDS ORDERED: MAGNESIUM OXIDE 400 MG TAB (MAG-OX) PO ONE (06:30)
[2019-04-01] MEDS ORDERED: MAG SULF 1GM/100ML (MAG RUN) 1 GM in IV 1 EA IV ONE (07:15)
[2019-04-01] MEDS: SYMBICORT 160/4.5MCG INHALER 6GM INH SCH ×2 (07:45→20:01)
[2019-04-01] MEDS: predniSONE 1 MG TAB PO SCH (08:41)
[2019-04-01] MEDS: OMEPRAZOLE 20 MG CAP PO SCH (08:42)
[2019-04-01] MEDS: predniSONE 5 MG TAB PO SCH (08:42)
[2019-04-01] MEDS: traMADol 50 MG TAB PO PRN ×2 (08:51→21:16)
[2019-04-01] MEDS ORDERED: AMIODARONE 200 MG TAB (PACERONE) PO SCH (09:00)
[2019-04-01] MEDS ORDERED: ONDANSETRON 4MG/2ML VIAL (J2405) IV PRN (09:45)
--- NOTE | 2019-04-01 10:34 | IPNPDOC ---
Subjective Date Seen The patient was seen on 04/01/19. Subjective Chief Complaint/HPI No acute events overnight, remained in sinus rhythm, Blood pressure improved with IVF. Not much urine output overnight. His hh dropped . I think it was higher than baseline yesterday due to dehydration and now with hydration it has dropped. his baseline hh is about 8 to 8.5 in eduardo last 2 months. No complaints of dizziness or confusion. Has a soft bowel movement last Night , no fever or chills, no chest pain or sob. Later the morning when he got out of bed to chair he went back to a fib with rate of 110. He also had an episode of vomiting ans as per nurses some of his pills came out. they could not say which one. Objective Physical Examination General Exam: Positive: Alert, Cooperative, No Acute Distress Eye Exam: Positive: PERRLA, Conjunctiva & lids normal, EOMI; Negative: Sclera icteric ENT Exam: Positive: Atraumatic, Mucous membr. moist/pink, Pharynx Normal Neck Exam: Positive: Supple; Negative: JVD, thyromegaly Chest Exam: Positive: Normal air movement, Other (crackles at both the bases, left greater that right. ); Negative: Rales, Rhonchi, Wheezing Heart Exam: Positive: Tachycardic, Irregular Rhythm, Normal S1, Normal S2; Negative: Gallops, Murmurs, Rubs Telemetry: Positive: Atrial fibrillation Abdomen Exam: Positive: Normal bowel sounds, Soft; Negative: Tenderness, Hepatospenomegaly Extremity Exam: Negative: Clubbing, Cyanosis, Edema Neuro Exam: Positive: Normal Speech, Strength at 5/5 X4 ext, Normal Tone Psych Exam: Positive: Other (became very emotional and crying when discussing about advance directives) Assessment /Plan Assessment 83 year old male with PMH of COPD, Chronic Hypoxic respiratory failure, Atrial fibrillation s/p cardiac ablation, Watchman procedure, Hypertension, GERD, Hyperlipidemia, Chronic kidney disease stage III , Bilateral renal cysts, BPH, Restless leg syndrome, History of hematuria , 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 Was seen by PMD on 03/29/19 and diltiazem and betablocker ( Atenolol 100 bid and dilti azem 60 tid) stopped. Today he comes in to the ED with Sudden onset palpitations at 10:30 pm associated with extreme weakness dizziness and confusion. He was admitted for Hypotension, Afib with RVR, possible Pneumonia. Hypotension multifactorial due to hypovolemia on the back ground of being on an tihypertensive and diuretics with possible underlying infection which really worsened last night due to possible onset of Afib with RVR due to sudden withdrawal of betablockers. patient appears volume depleted with higher that usual HB. probably due to poor intake with being on diuretics higher doses post hospitalization Appears to have better Suspicion of major infection causing the hypotension is low Possible Pneumonia Possibly viral pneumonia rule out bacterial infection respiratory panel is positive for human rhinovirus/enterovirus CT chest suggestive however i feel it is very close to the area of pneumonia in February so it may just be a resolving one and not a new one however in view of hypotension and lacticacidosis, WBC of 14.5 with cover with zosyn, No fever no major respiratory symptoms. blood cultures have been sent will send procalcitonin if negative will dc antibiotics. Afib with RVR Now resolved. Patient is in sinus rhythm. possibly due to betablocker withdrawal and hypotension As per Dr Tejada it takes 6 months for the full effect of cardiac ablation to occur. discussed with Dr Tejada over the phone. To start amiodarone 200mg daily and once blood pressure is better to restart on a small dose of betablocker will not start any diltiazem at present. to follow up in the office in 1 week after discharge. hold eliquis due to drop in HH. will start atenolol 12.5 bid. Anemia HH noted to be in 8 to 9 range since january 2019 ferritin, vit b12, folate levels in february has been normal. most probably due to recurrent hospitalizations and general sickness going on. will get stool occult blood x 2 will transfuse 2 units Thrombocytopenia this seems like dilutional only seen in this admission. COPD with Chronic Hypoxic respiratory failure stable and at baseline at present will continue home medications symbicort, prednisone, levalbuterol nebs prn. GERD continue home PPI Hyperlipidemia continue fenofibrate BPH continue finasteride but continue to hold flomax. Restless legs continue ropinirole Possible Bursitis on the right tylenol prn. CKD stage 3 now creatinine better than known baseline. Avoid NSAIDS. Chronic anemia needs work up as outpatient no h/o bleeding. Plan/VTE VTE Prophylaxis Ordered?: Yes VS, I&O, 24H, [facility] Vital Signs/I&O Vital Signs Date Time Temp Pulse Resp B/P (MAP) Pulse Ox O2 Delivery O2 Flow Rate FiO2 04/01/19 04:00 98.7 69 18 118/57 (77) 99 Nasal Cannula 2.0 I&O- Last 24 Hours up to 6 AM 04/01/19 06:00 Intake Total 2795 ml Output Total 200 ml Balance 2595 ml Laboratory Data 24H LABS Laboratory Tests 2 03/31/19 11:31: Immature Granulocyte % (Auto) 2.0, Neutrophils (%) (Auto) 71.0H, Lymphocytes (%) (Auto) 10.2L, Monocytes (%) (Auto) 16.0H, Eosinophils (%) (Auto) 0.5, Basophils (%) (Auto) 0.3, Neutrophils # (Auto) 10.5H, Lymphocytes # (Auto) 1.5, Monocytes # (Auto) 2.4H, Eosinophils # (Auto) 0.1, Basophils # (Auto) 0.0, Nucleated Red Blood Cells % (auto) 0.0, Prothrombin Time 14.3H, Prothromb Time International Ratio 1.14, Anion Gap 8, Glomerular Filtration Rate 49.8, Lactic Acid Level 2.6*H, Calcium Level 8.5L, Total Bilirubin 0.6, Direct Bilirubin 0.2, Aspartate Amino Transf (AST/SGOT) 19, Alanine Aminotransferase (ALT/SGPT) 14, Alkaline Phosphatase 61, Total Creatine Kinase 16L, Creatine Kinase MB < 1.0, Creatine Kinase MB Relative Index 6.25H, Troponin I < 0.02, Total Protein 5.2L, Albumin 2.5L, Albumin/Globulin Ratio 0.93L, Lipase 195, Thyroid Stimulating Hormone (TSH) 1.850 03/31/19 15:28: Anion Gap 7L, Glomerular Filtration Rate > 60.0, Calcium Level 7.2#L, Total Creatine Kinase 15L, Creatine Kinase MB < 1.0, Creatine Kinase MB Relative Index 6.67H, Troponin I < 0.02 03/31/19 19:38: Lactic Acid Level 2.1*H 04/01/19 00:17: Lactic Acid Followup at 4 Hours 0.8 04/01/19 04:14: Immature Granulocyte % (Auto) 2.0, Neutrophils (%) (Auto) 70.3H, Lymphocytes (%) (Auto) 11.9L, Monocytes (%) (Auto) 14.6H, Eosinophils (%) (Auto) 0.9, Basophils (%) (Auto) 0.3, Neutrophils # (Auto) 5.3, Lymphocytes # (Auto) 0.9L, Monocytes # (Auto) 1.1H, Eosinophils # (Auto) 0.1, Basophils # (Auto) 0.0, Nucleated Red Blood Cells % (auto) 0.0, Immature Platelet Fraction 3.2, Anion Gap 6L, Glomerular Filtration Rate 51.4, Calcium Level 7.0L, Magnesium Level 1.6L 04/01/19 05:54: Nucleated Red Blood Cells % (auto) 0.0 CBC/BMP Laboratory Tests 03/31/19 11:31 03/31/19 15:28 04/01/19 04:14 04/01/19 05:54 Microbiology Microbiology 03/31/19 Respiratory Virus Panel (PCR) (PEG) - Final, Complete Human Rhinovirus/Enterovirus 03/31/19 Blood Culture, Received Pending 03/31/19 Blood Culture, Received Pending TITO CASILLAS MD Apr 01, 2019 07:14
[2019-04-01] MEDS: ATENOLOL 12.5MG PER 1/2 TABLET PO SCH ×2 (12:15→21:15)
[2019-04-01] MEDS: AMIODARONE 200 MG TAB (PACERONE) PO SCH ×3 (12:16→21:15)
[2019-04-01] MEDS: FENOFIBRATE 145 MG TAB (TRICOR) PO SCH (21:15)
[2019-04-01] MEDS: rOPINIRole 0.25 MG TAB(REQUIP) PO SCH (21:15)
[2019-04-01] MEDS: ASPIRIN 81 MG ENTERIC TAB PO SCH (21:15)
[2019-04-01] MEDS: FINASTERIDE 5 MG TAB PO SCH (21:16)
[2019-04-02] VITALS: BP 114/63
[2019-04-02 04:00] VITALS: BP 125/63
[2019-04-02] MEDS: PIPERACILLIN/TAZOBACTAM SOD 3.375 GM in D5W MINI-BAG PLUS 50 ML IV SCH (04:23)
[2019-04-02 05:12] LABS: BASO % 0.2 % (0.0-1.0); EOS # 0.1 10^3/uL (0.0-0.5); HEMATOCRIT 25.4 % (42.0-52.0); LYMPH # 0.6 10^3/uL (1.5-5.0); LYMPH % 10.3 % (24.0-44.0); MEAN CORPUSCULAR HEMOGLOBIN 28.5 pg (27.0-33.0); MEAN CORPUSCULAR HGB CONC 31.5 g/dl (32.0-36.5); MEAN CORPUSCULAR VOLUME 90.4 fl (80.0-96.0); MONO # 0.9 10^3/uL (0.0-0.8); MONO % 14.1 % (0.0-5.0); NEUTROPHILS # 4.4 10^3/uL (1.5-8.5); NEUTROPHILS % 72.4 % (36.0-66.0); RED BLOOD COUNT 2.81 10^6/uL (4.30-6.10); WHITE BLOOD COUNT 6.1 10^3/uL (4.0-10.0)
[2019-04-02 05:13] LABS: PLATELET COUNT, AUTOMATED 89 10^3/uL (150-450)
[2019-04-02 05:28] LABS: CALCIUM LEVEL 7.4 MG/DL (8.8-10.2); CREATININE FOR GFR 1.76 MG/DL (0.70-1.30); GLOMERULAR FILTRATION RATE 39.5 (>35); MAGNESIUM LEVEL 1.9 MG/DL (1.8-2.4); POTASSIUM SERUM 3.8 MEQ/L (3.5-5.1)
[2019-04-02] MEDS: AMIODARONE 200 MG TAB (PACERONE) PO SCH ×4 (07:51→20:29)
[2019-04-02] MEDS: predniSONE 5 MG TAB PO SCH (07:51)
[2019-04-02] MEDS: predniSONE 1 MG TAB PO SCH (07:52)
[2019-04-02] MEDS: ATENOLOL 12.5MG PER 1/2 TABLET PO SCH ×2 (07:52→20:27)
[2019-04-02] MEDS: OMEPRAZOLE 20 MG CAP PO SCH (07:52)
[2019-04-02 08:00] VITALS: BP 133/67
[2019-04-02] MEDS: SYMBICORT 160/4.5MCG INHALER 6GM INH SCH ×2 (08:01→21:29)
[2019-04-02 09:25] VITALS: BP 118/58
--- NOTE | 2019-04-02 09:55 | IPNPDOC ---
Subjective Date Seen The patient was seen on 04/02/19. Subjective Chief Complaint/HPI still very weak. no overt bleeding from any where. No fever or chills, no cough or SOB. No diarrhea. Objective Physical Examination General Exam: Positive: Alert, Cooperative, No Acute Distress Eye Exam: Positive: PERRLA, Conjunctiva & lids normal, EOMI; Negative: Sclera icteric ENT Exam: Positive: Atraumatic, Mucous membr. moist/pink, Pharynx Normal Neck Exam: Positive: Supple; Negative: JVD, thyromegaly Chest Exam: Positive: Normal air movement, Other (crackles at both the bases, left greater that right. ); Negative: Rales, Rhonchi, Wheezing Heart Exam: Positive: Rate Normal, Regular Rhythm, Normal S1, Normal S2; Negative: Gallops, Murmurs, Rubs Telemetry: Positive: Sinus Abdomen Exam: Positive: Normal bowel sounds, Soft; Negative: Tenderness, Hepatospenomegaly Extremity Exam: Negative: Clubbing, Cyanosis, Edema Neuro Exam: Positive: Normal Speech, Strength at 5/5 X4 ext, Normal Tone Psych Exam: Positive: Other (became very emotional and crying when discussing about advance directives) Assessment /Plan Assessment 83 year old male with PMH of COPD, Chronic Hypoxic respiratory failure, Atrial fibrillation s/p cardiac ablation, Watchman procedure, Hypertension, GERD, Hyperlipidemia, Chronic kidney disease stage III , Bilateral renal cysts, BPH, Restless leg syndrome, History of hematuria , 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 Was seen by PMD on 03/29/19 and diltiazem and betablocker ( Atenolol 100 bid and diltiazem 60 tid) stopped. Today he comes in to the ED with Sudden onset palpitations at 10:30 pm associated with extreme weakness dizziness and confusion. He was admitted for Hypotension, Afib with RVR, possible Pneumonia. Hypotension multifactorial due to hypovolemia on the back ground of being on antihypertensive and diuretics with ongoing viral infection URI and diarrhea and Afib with RVR due to sudden withdrawal of betablockers. volume depleted due to poor intake and diarreha due to viral infection with being on diuretics higher doses post hospitalization Now euvolemic. Procalcitonin 0.1 Viral pneumonia respiratory panel is positive for human rhinovirus/enterovirus CT chest suggestive however i feel it is very close to the area of pneumonia in February so it may just be a resolving one and not a new one antibiotics stopped. Afib with RVR Now resolved. Patient is in sinus rhythm. possibly due to betablocker withdrawal and hypotension As per Dr Tejada it takes 6 months for the full effect of cardiac ablation to occur. discussed with Dr Tejada over the phone. getting amiodarone loading with 200 qid. dose to be reduced to 200mg once a day on discharge. atenolol 12.5 bid. will not start any diltiazem at present. to follow up in the office in 1 week after discharge. restart eliquis Anemia HH noted to be in 8 to 9 range since january 2019 ferritin, vit b12, folate levels in february has been normal. most probably due to recurrent hospitalizations and general sickness going on. will get stool occult blood x 2 will transfuse 2 units Thrombocytopenia this seems like dilutional only seen in this admission. COPD with Chronic Hypoxic respiratory failure stable and at baseline at present will continue home medications symbicort, prednisone, levalbuterol nebs prn. GERD continue home PPI Hyperlipidemia continue fenofibrate BPH continue finasteride but continue to hold flomax. Restless legs continue ropinirole Possible Bursitis on the right tylenol prn. CKD stage 3 now creatinine better than known baseline. Avoid NSAIDS. Chronic anemia needs work up as outpatient no h/o bleeding. Plan/VTE VTE Prophylaxis Ordered?: Yes VS, I&O, 24H, Fishbone Vital Signs/I&O Vital Signs Date Time Temp Pulse Resp B/P (MAP) Pulse Ox O2 Delivery O2 Flow Rate FiO2 04/02/19 08:00 2.0 04/02/19 08:00 97.8 69 15 133/67 (89) 100 Nasal Cannula I&O- Last 24 Hours up to 6 AM 04/02/19 06:00 Intake Total 1950 ml Output Total 850 ml Balance 1100 ml Laboratory Data 24H LABS Laboratory Tests 2 04/02/19 04:49: Immature Granulocyte % (Auto) 2.0, Neutrophils (%) (Auto) 72.4H, Lymphocytes (%) (Auto) 10.3L, Monocytes (%) (Auto) 14.1H, Eosinophils (%) (Auto) 1.0, Basophils (%) (Auto) 0.2, Neutrophils # (Auto) 4.4, Lymphocytes # (Auto) 0.6L, Monocytes # (Auto) 0.9H, Eosinophils # (Auto) 0.1, Basophils # (Auto) 0.0, Nucleated Red Blood Cells % (auto) 0.0, Immature Platelet Fraction 3.4, Anion Gap 7L, Glome rular Filtration Rate 39.5, Calcium Level 7.4L, Magnesium Level 1.9 CBC/BMP Laboratory Tests 04/01/19 17:47 04/02/19 04:49 Microbiology Microbiology 03/31/19 Respiratory Virus Panel (PCR) (PEG) - Final, Complete Human Rhinovirus/Enterovirus 03/31/19 Blood Culture - Preliminary, Resulted No growth after 24 hours . All specim... 03/31/19 Blood Culture - Preliminary, Resulted No growth after 24 hours . All specim... TITO CASILLAS MD Apr 02, 2019 09:55
[2019-04-02 16:00] VITALS: BP 140/68
[2019-04-02] MEDS ORDERED: SLF 3 ML SYR IV PRN (17:30)
[2019-04-02] MEDS: ASPIRIN 81 MG ENTERIC TAB PO SCH (20:26)
[2019-04-02] MEDS: FENOFIBRATE 145 MG TAB (TRICOR) PO SCH (20:28)
[2019-04-02] MEDS: FINASTERIDE 5 MG TAB PO SCH (20:28)
[2019-04-02] MEDS: rOPINIRole 0.25 MG TAB(REQUIP) PO SCH (20:28)
[2019-04-02] MEDS: SLF 3 ML SYR IV SCH (20:29)
[2019-04-02] MEDS: traMADol 50 MG TAB PO PRN (20:32)
[2019-04-02 22:00] VITALS: BP 154/73
[2019-04-03 04:00] VITALS: BP 140/78
[2019-04-03] MEDS: SLF 3 ML SYR IV SCH ×3 (05:00→21:00)
[2019-04-03 05:43] LABS: BASO % 0.3 % (0.0-1.0); EOS # 0.1 10^3/uL (0.0-0.5); EOS % 1.2 % (0.0-3.0); HEMATOCRIT 26.5 % (42.0-52.0); HEMOGLOBIN 8.4 g/dl (13.5-17.5); LYMPH # 0.7 10^3/uL (1.5-5.0); LYMPH % 10.2 % (24.0-44.0); MEAN CORPUSCULAR HEMOGLOBIN 28.7 pg (27.0-33.0); MEAN CORPUSCULAR HGB CONC 31.7 g/dl (32.0-36.5); MEAN CORPUSCULAR VOLUME 90.4 fl (80.0-96.0); MONO % 15.1 % (0.0-5.0); NEUTROPHILS # 4.6 10^3/uL (1.5-8.5); NEUTROPHILS % 70.9 % (36.0-66.0); RED BLOOD COUNT 2.93 10^6/uL (4.30-6.10); WHITE BLOOD COUNT 6.5 10^3/uL (4.0-10.0)
[2019-04-03 05:47] LABS: PLATELET COUNT, AUTOMATED 97 10^3/uL (150-450)
[2019-04-03 06:04] LABS: CALCIUM LEVEL 7.7 MG/DL (8.8-10.2); CREATININE FOR GFR 1.64 MG/DL (0.70-1.30); GLOMERULAR FILTRATION RATE 42.8 (>35); MAGNESIUM LEVEL 1.7 MG/DL (1.8-2.4)
[2019-04-03] MEDS ORDERED: MAG SULF 1GM/100ML (MAG RUN) 1 GM in IV 1 EA IV ONE (07:15)
[2019-04-03] MEDS ORDERED: FUROSEMIDE 40 MG/4 ML VIAL (J1940) IV ONE (07:15)
[2019-04-03] MEDS: SYMBICORT 160/4.5MCG INHALER 6GM INH SCH ×2 (08:24→21:23)
[2019-04-03] MEDS: ATENOLOL 12.5MG PER 1/2 TABLET PO SCH ×2 (09:35→20:59)
[2019-04-03] MEDS: predniSONE 5 MG TAB PO SCH (09:36)
[2019-04-03] MEDS: MAGNESIUM OXIDE 400 MG TAB (MAG-OX) PO SCH ×2 (09:36→20:58)
[2019-04-03] MEDS: AMIODARONE 200 MG TAB (PACERONE) PO SCH ×4 (09:36→20:59)
[2019-04-03] MEDS: OMEPRAZOLE 20 MG CAP PO SCH (09:36)
[2019-04-03] MEDS: predniSONE 1 MG TAB PO SCH (09:36)
[2019-04-03] MEDS: traMADol 50 MG TAB PO PRN ×2 (09:46→21:00)
--- NOTE | 2019-04-03 11:05 | IPNPDOC ---
Subjective Date Seen The patient was seen on 04/03/19. Subjective Chief Complaint/HPI patient complains of having diarrhea, also complains of swelling of the ankles and swelling of the arms and fore arms. No fever or chills, having good urine output. Appetite is improving . Does say that if he tries to eat more he has some abdominal hilario so he is careful about what he eats and how much. Objective Physical Examination General Exam: Positive: Alert, Cooperative, No Acute Distress Eye Exam: Positive: PERRLA, Conjunctiva & lids normal, EOMI; Negative: Sclera icteric ENT Exam: Positive: Atraumatic, Mucous membr. moist/pink, Pharynx Normal Neck Exam: Positive: Supple; Negative: JVD, thyromegaly Chest Exam: Positive: Normal air movement, Other (crackles at both the bases, left greater that right. ); Negative: Rales, Rhonchi, Wheezing Heart Exam: Positive: Rate Normal, Regular Rhythm, Normal S1, Normal S2; Negative: Gallops, Murmurs, Rubs Telemetry: Positive: Sinus Abdomen Exam: Positive: Normal bowel sounds, Soft; Negative: Tenderness, Hepatospenomegaly Extremity Exam: Negative: Clubbing, Cyanosis, Edema Neuro Exam: Positive: Normal Speech, Strength at 5/5 X4 ext, Normal Tone Psych Exam: Positive: Other (became very emotional and crying when discussing about advance directives) Assessment /Plan Assessment 83 year old male with PMH of COPD, Chronic Hypoxic respiratory failure, Atrial fibrillation s/p cardiac ablation, Watchman procedure, Hypertension, GERD, Hyperlipidemia, Chronic kidney disease stage III , Bilateral renal cysts, BPH, Restless leg syndrome, History of hematuria , 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 Was seen by PMD on 03/29/19 and diltiazem and betablocker ( Atenolol 100 bid and diltiazem 60 tid) stopped. Today he comes in to the ED with Sudden onset palpitations at 10:30 pm associated with extreme weakness dizziness and confusion. He was admitted for Hypotension, Afib with RVR, possible Pneumonia. Hypotension resolved. multifactorial due to hypovolemia on the back ground of being on antihypertensive and diuretics with ongoing viral infection URI and diarrhea and Afib with RVR due to sudden withdrawal of betablockers. volume depleted due to poor intake and diarrhea due to viral infection with being on diuretics higher doses post hospitalization Procalcitonin 0.1 Viral pneumonia respiratory panel is positive for human rhinovirus/enterovirus CT chest suggestive however i feel it is very close to the area of pneumonia in February so it may just be a resolving one and not a new one antibiotics stopped. Diarrhea patient reports every time he goes to the bathroom he has a liquid stool with sme rabbit pellets in it. will sent for GI panel. probably has iral diarrehea Afib with RVR Now resolved. Patient is in sinus rhythm. possibly due to betablocker withdrawal and hypotension As per Dr Tejada it takes 6 months for the full effect of cardiac ablation to occur. discussed with Dr Tejada over the phone. getting amiodarone loading with 200 qid. dose to be reduced to 200mg once a day on discharge. atenolol 12.5 bid. will increase as tolerated by BP will not start any diltiazem at present. to follow up in the cardiology office in 1 week after discharge. restart eliquis Hypomagnesemia will replace. Anemia HH noted to be in 8 to 9 range since january 2019 ferritin, vit b12, folate levels in february has been normal. most probably due to recurrent hospitalizations and general sickness going on. will get stool occult blood x 2 will transfuse 2 units Thrombocytopenia this seems like dilutional only seen in this admission. COPD with Chronic Hypoxic respiratory failure stable and at baseline at present will continue home medications symbicort, prednisone, levalbuterol nebs prn. GERD continue home PPI Hyperlipidemia continue fenofibrate BPH continue finasteride restart flomax Restless legs continue ropinirole Possible Bursitis on the right tylenol prn. CKD stage 3 creatinine at baseline. Avoid NSAIDS. Chronic anemia mostly runs in 8 to 9 range. In feb 2019 there was no iron def, no vit b12 and no folate def. May be due to anemia of CKD have ordered stool for occult blood. needs work up as outpatient no h/o bleeding. Had colonoscopy in 2007 and endoscopy in 2015. Plan/VTE VTE Prophylaxis Ordered?: Yes VS, I&O, 24H, Fishbone Vital Signs/I&O Vital Signs Date Time Temp Pulse Resp B/P (MAP) Pulse Ox O2 Delivery O2 Flow Rate FiO2 04/03/19 09:46 20 Nasal Cannula 2.0 04/03/19 09:35 69 140/78 04/03/19 04:00 97.4 100 I&O- Last 24 Hours up to 6 AM 04/03/19 06:00 Intake Total 420 ml Output Total 0 ml Balance 420 ml Laboratory Data 24H LABS Laboratory Tests 2 04/03/19 05:24: Immature Granulocyte % (Auto) 2.3, Neutrophils (%) (Auto) 70.9H, Lymphocytes (%) (Auto) 10.2L, Monocytes (%) (Auto) 15.1H, Eosinophils (%) (Auto) 1.2, Basophils (%) (Auto) 0.3, Neutrophils # (Auto) 4.6, Lymphocytes # (Auto) 0.7L, Monocytes # (Auto) 1.0H, Eosinophils # (Auto) 0.1, Basophils # (Auto) 0.0, Nucleated Red Blood Cells % (auto) 0.0, Immature Platelet Fraction 3.1, Anion Gap 7L, Glomerular Filtration Rate 42.8, Calcium Level 7.7L, Magnesium Level 1.7L CBC/BMP Laboratory Tests 04/03/19 05:24 Microbiology Microbiology 03/31/19 Respiratory Virus Panel (PCR) (PEG) - Final, Complete Human Rhinovirus/Enterovirus 03/31/19 Blood Culture - Preliminary, Resulted No Growth after 48 hours. All Specime... 03/31/19 Blood Culture - Preliminary, Resulted No Growth after 48 hours. All Specime... TITO CASILLAS MD Apr 03, 2019 11:05
[2019-04-03 12:00] VITALS: BP 133/67
[2019-04-03] MEDS: APIXABAN 2.5 MG TAB (ELIQUIS) PO SCH (20:58)
[2019-04-03] MEDS: FENOFIBRATE 145 MG TAB (TRICOR) PO SCH (20:58)
[2019-04-03] MEDS: rOPINIRole 0.25 MG TAB(REQUIP) PO SCH (20:58)
[2019-04-03] MEDS: ASPIRIN 81 MG ENTERIC TAB PO SCH (20:59)
[2019-04-03] MEDS: FINASTERIDE 5 MG TAB PO SCH (20:59)
[2019-04-03] MEDS ORDERED: TAMSULOSIN 0.4 MG CAP PO SCH (21:00)
[2019-04-04 04:00] VITALS: BP 134/72
[2019-04-04] MEDS: SLF 3 ML SYR IV SCH (05:08)
[2019-04-04 05:46] LABS: BASO % 0.2 % (0.0-1.0); EOS # 0.1 10^3/uL (0.0-0.5); EOS % 1.3 % (0.0-3.0); HEMATOCRIT 28.2 % (42.0-52.0); HEMOGLOBIN 8.6 g/dl (13.5-17.5); LYMPH # 0.7 10^3/uL (1.5-5.0); LYMPH % 11.2 % (24.0-44.0); MEAN CORPUSCULAR HGB CONC 30.5 g/dl (32.0-36.5); MEAN CORPUSCULAR VOLUME 91.9 fl (80.0-96.0); MONO % 15.4 % (0.0-5.0); NEUTROPHILS # 4.3 10^3/uL (1.5-8.5); PLATELET COUNT, AUTOMATED 102 10^3/uL (150-450); RED BLOOD COUNT 3.07 10^6/uL (4.30-6.10); WHITE BLOOD COUNT 6.2 10^3/uL (4.0-10.0)
[2019-04-04 06:07] LABS: CALCIUM LEVEL 7.9 MG/DL (8.8-10.2); CREATININE FOR GFR 1.76 MG/DL (0.70-1.30); GLOMERULAR FILTRATION RATE 39.5 (>35); MAGNESIUM LEVEL 1.9 MG/DL (1.8-2.4)
[2019-04-04 08:00] VITALS: BP 150/74
[2019-04-04 08:54] VITALS: BP 150/74
[2019-04-04] MEDS: OMEPRAZOLE 20 MG CAP PO SCH (08:54)
[2019-04-04] MEDS: APIXABAN 2.5 MG TAB (ELIQUIS) PO SCH (08:54)
[2019-04-04] MEDS: AMIODARONE 200 MG TAB (PACERONE) PO SCH (08:54)
[2019-04-04] MEDS: ATENOLOL 12.5MG PER 1/2 TABLET PO SCH (08:54)
[2019-04-04] MEDS: predniSONE 5 MG TAB PO SCH (08:54)
[2019-04-04] MEDS: predniSONE 1 MG TAB PO SCH (08:54)
[2019-04-04] MEDS: traMADol 50 MG TAB PO PRN (08:55)
[2019-04-04] MEDS: MAGNESIUM OXIDE 400 MG TAB (MAG-OX) PO SCH (08:56)
[2019-04-04] MEDS: SYMBICORT 160/4.5MCG INHALER 6GM INH SCH (09:08)
[2019-04-04] MEDS ORDERED: FUROSEMIDE 40 MG/4 ML VIAL (J1940) IV ONE (09:45)
[2019-04-04] MEDS ORDERED: AMIO200T PO (11:02)
[2019-04-04] MEDS ORDERED: ATEN25TA PO (11:02)
--- NOTE | 2019-04-04 15:24 | DS.PDOC ---
Discharge Summary General Date of Admission Mar 31, 2019 at 17:35 Date of Discharge 04/04/19 Discharge Summary PROCEDURES PERFORMED DURING STAY: [None]. DISCHARGE DIAGNOSES: Hypotension due to hypovolemia due to diarreha and poor oral intake due to viral infection and Afib with RVR Viral syndrome with Human rhinovirus/ enterovirus A fib with RVR due to betablocker withdrawal Viral pneumonia Acute on chronic anemia needed 2 units of PRBC, no bleeding. 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 COMPLICATIONS/CHIEF COMPLAINT: A Fib W/Rvr; Hypotension. 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 Was seen by PMD on 03/29/19 and diltiazem and betablocker ( Atenolol 100 bid and diltiazem 60 tid) stopped. Today he comes in to the ED with Sudden onset palpitations last night 10:30 pm associated with extreme weakness dizziness and confusion. He also complained of ongoing intermittent diarrhea at home for a week which had stopped 2 days ago and tammi poor appetite and unable to eat much. He could not call for help . he lay in his recliner till this am till his got up and then requested to come to the ED. He was admitted for Hypotension, Afib with RVR, possible Pneumonia. He was found to be positive for Human rihinovirus/enterovirus in the nasal swab. He was given IVF and loaded with amiodarone. His Blood pressure improved and he was started back on low do se of atenolol. After hydration his HH dropped to 7.0 from 9.7 on admission. The admission value i think was higher than his usual levels in the past month due to dehydration. There was no bleeding noted. He was transfused 2 untis of PRBC. His Eliquis was continued. He now has started building up some fluids and so his diuretic was restarted. Hypotension resolved. multifactorial due to hypovolemia on the back ground of being on antihypertensive and diuretics with ongoing viral infection URI and diarrhea and Afib with RVR due to sudden withdrawal of betablockers. volume depleted due to poor intake and diarrhea due to viral infection with being on diuretics higher doses post hospitalization Procalcitonin 0.1 Viral pneumonia respiratory panel is positive for human rhinovirus/enterovirus CT chest suggestive however i feel it is very close to the area of pneumonia in February so it may just be a resolving one and not a new one antibiotics stopped. Diarrhea patient reports every time he goes to the bathroom he has a liquid stool with sme rabbit pellets in it. GI panel could not be sent as diarrhea had stopped. probably has Viral diarrhea Afib with RVR Now resolved. Patient is in sinus rhythm. possibly due to betablocker withdrawal and hypotension As per Dr Tejada it takes 6 months for the full effect of cardiac ablation to occur. discussed with Dr Tejada over the phone. getting amiodarone loading with 200 qid. dose to be reduced to 200mg once a day on discharge. atenolol 25 bid can be increased if tolerated by bp. will not start any diltiazem at present. to follow up in the cardiology office in 1 week after discharge. restart eliquis Hypomagnesemia replaced Anemia HH noted to be in 8 to 9 range since january 2019 ferritin, vit b12, folate levels in february has been normal. most probably due to recurrent hospitalizations and general sickness going on and anemia of CKD stool occult blood x 2 , patient could not give a sample transfused 2 units of PRBC. Thrombocytopenia this seems like dilutional only seen in this admission. COPD with Chronic Hypoxic respiratory failure stable and at baseline at present will continue home medications symbicort, prednisone, levalbuterol nebs prn. GERD continue home PPI Hyperlipidemia continue fenofibrate BPH continue finasteride restart flomax Restless legs continue ropinirole Possible Bursitis on the right tylenol prn. CKD stage 3 creatinine at baseline. Avoid NSAIDS. Chronic anemia mostly runs in 8 to 9 range. In feb 2019 there was no iron def, no vit b12 and no folate def. May be due to anemia of CKD have ordered stool for occult blood. needs work up as outpatient no h/o bleeding. Had colonoscopy in 2008 and endoscopy in 2016. DISCHARGE MEDICATIONS: Please see below. ALLERGIES: Please see below. PHYSICAL EXAMINATION ON DISCHARGE: VITAL SIGNS: Please see below. General Exam: Positive: Alert, Cooperative, No Acute Distress Eye Exam: Positive: PERRLA, Conjunctiva & lids normal, EOMI; Negative: Sclera icteric ENT Exam: Positive: Atraumatic, Mucous membr. moist/pink, Pharynx Normal Neck Exam: Positive: Supple; Negative: JVD, thyromegaly Chest Exam: Positive: Normal air movement, Other (crackles at both the bases, left greater that right. ); Negative: Rales, Rhonchi, Wheezing Heart Exam: Positive: Rate Normal, Regular Rhythm, Normal S1, Normal S2; Negative: Gallops, Murmurs, Rubs Telemetry: Positive: Sinus Abdomen Exam: Positive: Normal bowel sounds, Soft; Negative: Tenderness, Hepatospenomegaly Extremity Exam: Negative: Clubbing, Cyanosis, Edema Neuro Exam: Positive: Normal Speech, Strength at 5/5 X4 ext, Normal Tone Psych Exam: Positive: Other (became very emotional and crying when discussing about advance directives) LABORATORY DATA: Please see below. ACTIVITY: [As tolerated]. DIET: As tolerated DISPOSITION: Home Health Service. DISCHARGE INSTRUCTIONS: Follow up with PMD in 3 to 5 days Follow up with Dr Dick in 1 week DISCHARGE CONDITION: [Stable]. TIME SPENT ON DISCHARGE: 35 minutes. Vital Signs/I&Os Vital Signs Date Time Temp Pulse Resp B/P (MAP) Pulse Ox O2 Delivery O2 Flow Rate FiO2 04/04/19 09:25 18 99 Nasal Cannula 2.0 04/04/19 08:54 70 150/74 04/04/19 08:00 97.5 I&O- Last 24 Hours up to 6 AM 04/04/19 06:00 Intake Total 1980 ml Output Total 0 ml Balance 1980 ml Laboratory Data Labs 24H Laboratory Tests 2 04/04/19 05:21: Immature Granulocyte % (Auto) 1.9, Neutrophils (%) (Auto) 70.0H, Lymphocytes (%) (Auto) 11.2L, Monocytes (%) (Auto) 15.4H, Eosinophils (%) (Auto) 1.3, Basophils (%) (Auto) 0.2, Neutrophils # (Auto) 4.3, Lymphocytes # (Auto) 0.7L, Monocytes # (Auto) 1.0H, Eosinophils # (Auto) 0.1, Basophils # (Auto) 0.0, Nucleated Red Blood Cells % (auto) 0.0, Anion Gap 6L, Glomerular Filtration Rate 39.5, Calcium Level 7.9L, Magnesium Level 1.9 CBC/BMP Laboratory Tests 04/04/19 05:21 Microbiology Microbiology 03/31/19 Respiratory Virus Panel (PCR) (PEG) - Final, Complete Human Rhinovirus/Enterovirus 03/31/19 Blood Culture - Preliminary, Resulted No Growth after 72 hours. All specime... 03/31/19 Blood Culture - Preliminary, Resulted No Growth after 72 hours. All specime... Discharge Medications Scheduled Amiodarone HCl (Amiodarone HCl) 200 Mg Tablet, 200 MG PO DAILY Apixaban (Eliquis) 2.5 Mg Tab, 2.5 MG PO BID, (Reported) Aspirin (Aspir 81) 81 Mg Tab, 81 MG PO QPM, (Reported) Atenolol (Atenolol) 25 Mg Tablet, 25 MG PO BID Budesonide/Formoterol (Symbicort 160-4.5 Mcg Inhaler) 60 Puff/Inhaler Aers, 2 PUFFS INH BID, (Reported) Fenofibrate (Fenofibrate) 160 Mg Tab, 160 MG PO DAILY, (Reported) TAKES AROUND NOON Finasteride (Finasteride) 5 Mg Tab, 5 MG PO QHS, (Reported) Magnesium Chloride (Mag64) 64 Mg Tablet.dr, 64 MG PO QPM, (Reported) Underwood-3 Fatty Acids/Fish Oil (Fish Oil 1,200 mg Softgel) 1 Each Capsule, 1,200 MG PO BID, (Reported) Omeprazole (Omeprazole) 40 Mg Cap, 40 MG PO DAILY, (Reported) Potassium Chloride (Potassium Chloride) 20 Meq Tab.er.prt, 10 MEQ PO QPM, (Reported) Prednisone (Prednisone) 5 Mg Tab, 5 MG PO DAILY, (Reported) TAKES WITH 2MG FOR 7 MG TOTAL DOSE Prednisone (Prednisone) 1 Mg Tablet, 2 MG PO DAILY, (Reported) TAKES WITH 5MG FOR 7 MG TOTAL DOSE Ropinirole HCl (Ropinirole HCl) 0.25 Mg Tablet, 0.25 MG PO QHS, (Reported) Tamsulosin Hcl (Tamsulosin HCl) 0.4 Mg Capsule, 0.4 MG PO QHS, (Reported) ON HOLD SINCE 03/29/19 Torsemide (Torsemide) 10 Mg Tablet, 10 MG PO DAILY, (Reported) Scheduled PRN Acetaminophen (Acetaminophen) 500 Mg Tablet, 1,000 MG PO Q8H PRN for PAIN, (Reported) TAKES WITH TRAMADOL PRN Levalbuterol Hydrochloride (Xopenex Hfa) 45 Mcg/Act Aer, 2 PUFF INH Q4H PRN for SOB/WHEEZING, (Reported) Tramadol HCl (Tramadol HCl) 50 Mg Tab, 50 MG PO TID PRN for PAIN, (Reported) TAKES WITH TYLENOL PRN Allergies Coded Allergies: fluconazole (Verified Allergy, Unknown, UNKNOWN REACTION, 03/31/19) fluticasone (Verified Allergy, Unknown, UNKNOWN REACTION, 03/31/19) metformin (Verified Allergy, Unknown, UNKNOWN REACTION, 03/31/19) petrolatum,white (Verified Allergy, Unknown, ITCH/RASH, 03/31/19) azithromycin (Verified Adverse Reaction, Unknown, LOWERS BP, 03/31/19) clarithromycin (Verified Adverse Reaction, Unknown, LOWERS BP, 03/31/19) procaine (Verified Adverse Reaction, Unknown, DIZZINESS, 03/31/19) TITO CASILLAS MD Apr 04, 2019 15:24
== END 2019-04-04 12:11 | disposition home health service (06) | DRG 314 ==
LOC: M ED 10:57 → EDBD 10:57 → M ED INP 17:35 → ENRESERV 17:52 → M ICU 18:48 → M PCU 04-02 09:25
PROVIDERS: ADMIT Internal Medicine Nephrology; ATTEND Internal Medicine Nephrology
PROC: 30233N1 Transfusion of Nonautologous Red Blood Cells into Peripheral Vein, Percutaneous Approach (ICD-10-PCS; principal; 2019-04-01)
DX: I95.9 Hypotension, unspecified (principal); J12.89 Other viral pneumonia; J96.11 Chronic respiratory failure with hypoxia; J44.9 Chronic obstructive pulmonary disease, unspecified; N18.3 Chronic kidney disease, stage 3 (moderate); I48.91 Unspecified atrial fibrillation; R53.1 Weakness; D63.1 Anemia in chronic kidney disease; I13.10 Hypertensive heart and chronic kidney disease without heart failure, with stage 1 through stage 4 chronic kidney disease, or unspecified chronic kidney disease; A08.4 Viral intestinal infection, unspecified; K21.9 Gastro-esophageal reflux disease without esophagitis; E83.42 Hypomagnesemia; N40.0 Benign prostatic hyperplasia without lower urinary tract symptoms; D69.6 Thrombocytopenia, unspecified; E78.5 Hyperlipidemia, unspecified; G25.81 Restless legs syndrome; I49.5 Sick sinus syndrome; Z95.0 Presence of cardiac pacemaker; Z79.52 Long term (current) use of systemic steroids; Z79.01 Long term (current) use of anticoagulants; Z79.899 Other long term (current) drug therapy; Z88.8 Allergy status to other drugs, medicaments and biological substances; Z88.1 Allergy status to other antibiotic agents

== ENCOUNTER 2019-07-16 17:22 | Inpatient (IN) | payer MEDICARE ==
[~2019-07-16] VITALS: Ht 170.2 cm; Wt 61.0 kg
[~2019-07-16 17:22] MED LIST changes: +ATEN25TA PO; +ONDA-83 PO; -ONDA4TAB5 PO; +PRED1TABL PO
[2019-07-16] MEDS ORDERED: traMADol 50 MG TAB PO ONE (18:15)
[2019-07-16] MEDS ORDERED: ONDANSETRON 4MG/2ML VIAL IV ONE ×3 (18:15→21:00)
[2019-07-16 18:57] LABS: BASO % 0.4 % (0.0-1.0); EOS % 0.1 % (0.0-3.0); HEMATOCRIT 32.4 % (42.0-52.0); HEMOGLOBIN 10.5 g/dl (13.5-17.5); LYMPH # 0.5 10^3/uL (1.5-5.0); MEAN CORPUSCULAR HEMOGLOBIN 29.5 pg (27.0-33.0); MEAN CORPUSCULAR HGB CONC 32.4 g/dl (32.0-36.5); MONO # 1.9 10^3/uL (0.0-0.8); MONO % 23.4 % (0.0-5.0); NEUTROPHILS # 5.5 10^3/uL (1.5-8.5); NEUTROPHILS % 68.2 % (36.0-66.0); PLATELET COUNT, AUTOMATED 161 10^3/uL (150-450); RED BLOOD COUNT 3.56 10^6/uL (4.30-6.10); WHITE BLOOD COUNT 8.1 10^3/uL (4.0-10.0)
[2019-07-16 19:14] LABS: INR 1.35; PROTHROMBIN TIME 16.4 SECONDS (11.8-14.0)
[2019-07-16 19:15] LABS: PARTIAL THROMBOPLASTIN TIME 38.3 SECONDS (25.0-38.4)
[2019-07-16 19:17] LABS: D-DIMER QUANT 325.56 ng/ml (<500)
[2019-07-16 19:23] LABS: ALBUMIN 2.9 GM/DL (3.2-5.2); ALT/SGPT 16 U/L (12-78); BILIRUBIN,TOTAL 0.5 MG/DL (0.2-1.0); BLOOD UREA NITROGEN 24 MG/DL (7-18); CALCIUM LEVEL 8.6 MG/DL (8.8-10.2); CARBON DIOXIDE LEVEL 35 MEQ/L (21-32); CHLORIDE LEVEL 102 MEQ/L (98-107); CK-MB VALUE MASS < 1.0 NG/ML (<3.6); CPK CREATINE PHOSPHOKINASE 28 U/L (39-308); CREATININE FOR GFR 1.76 MG/DL (0.70-1.30); FERRITIN 235 NG/ML (26-388); GLOMERULAR FILTRATION RATE 39.5 (>35); GLUCOSE, FASTING 120 MG/DL (70-100); LDH LACTATE DEHYDROGENASE 172 U/L (87-241); MB/CK RELATIVE INDEX 3.57 (< OR =4); SODIUM LEVEL 141 MEQ/L (136-145); TOTAL PROTEIN 5.7 GM/DL (6.4-8.2); TROPONIN I < 0.02 NG/ML (< 0.10)
[2019-07-16] MEDS ORDERED: ENOXAPARIN 100MG/1ML SYRINGE (J1650 PER 10MG) SC SCH (21:00)
[2019-07-16] MEDS: atenoloL 25 MG TAB PO SCH (21:00)
[2019-07-16] MEDS: TORSEMIDE 10 MG TABLET PO SCH (21:00)
[2019-07-16] MEDS: ENOXAPARIN 30MG/0.3ML SYRINGE (J1650 PER 10MG) SC SCH (21:00)
[2019-07-16] MEDS ORDERED: ACETAMINOPHEN TAB 650MG DOSE (2X325MG) PO ONE (21:30)
--- NOTE | 2019-07-16 21:34 | HPEPDOC ---
[facility] Medical History & Physical Date of Admission Jul 16, 2019 Date of Service: Jul 16, 2019 Attending Physician: YUNI BILLINGS MD History and Physical CHIEF COMPLAINT: Nausea, vomiting and Covid + respiratory infection HISTORY OF PRESENT ILLNESS: This is a 83-year-old male with multiple cardiac and lung comorbidities presenting to our ER for nausea and vomiting for the last 24 hours. He does complain of generalized discomfort as well, which he was unable to elaborate further. Patient did not give the best history during the exam for he was very uncomfortable 2/2 nausea. He did endorse his tested positive for Covid but he wasn't tested prior to coming to the ER. He does have 2 L of nasal cannula which he use as needed for his history of asthma and chronic hypoxic respiratory failure. He wasn't really forthcoming during the exam and requested that I come back later further questioning after he gotten some rest. History from his daughter states patient started exhibiting symptoms on Friday evening with dry heaving and nonbilious nonbloody vomiting. At the time he had no fevers but had no appetite to eat or drink including ensure. He noticed symptoms 2 days after his exhibited symptoms and did not get tested for COVID for she got tested prior to him exhibiting symptoms.He didn't have another complaints today. PAST MEDICAL HISTORY: 1. History of asthma 2. Chronic Hypoxic respiratory failure on 2L O2 at home 3. 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 Hypertension with hypertensive heart disease 5. GERD 6. Hyperlipidemia 7. Chronic kidney disease stage III 8. History of polycystic kidney disease, 9. Bilateral renal cysts 10. Restless leg syndrome 11 History of hematuria HOME MEDICATIONS: Please see below. ALLERGIES: Please see below PAST SURGICAL HISTORY: 1. Permanent pacemaker 2 in 2002 and 2011 2. Ablation in December 2018 3. Watchman procedure. SOCIAL HISTORY: Lives with: , , Tobacco use:Former smoker, ETOH: Denies, Illicit drug use: Denies, CODE STATUS: DNR/DNI FAMILY HISTORY:Reviewed and noncontributory REVIEW OF SYSTEMS: 10 systems reviewed and negative other than HPI PHYSICAL EXAMINATION: VITAL SIGNS: See Below GENERAL: Pleasant 83 laying in bed awake alert oriented speaking in complete sentences appears uncomfortable due to nausea HEENT: Atraumatic, normocephalic, nasal cannula and face mask in place, no JVD noted CARDIOVASCULAR: Difficult to hears but regularly regular rate controlled. No audible murmurs. RESPIRATORY: Clear to auscultate bilaterally with bibasilar crackles noted ABDOMINAL: Some abdominal discomfort with palpation the left upper quadrant. No rebounding or guarding appreciated EXTREMITIES: No lower extremity edema or tenderness noted NEUROLOGICAL: No gross focal deficits appreciated PSYCHOLOGICAL: Appropriate LABORATORY DATA: See below. MICROBIOLOGY: Please see below. IMAGING: Chest Xray -Official report pending ASSESSMENT & PLAN: This is a 83 year old male with multiple cardiac and pulmonary comorbidities who is being admitted for nausea and COVID +. PROBLEMS: 1.COVID+ respiratory infection -COVID testing q12h -Maintain O2 sats above 92% -Risk factors: Age > 60, chronic heart disease/hypertension, chronic lung disease -Discussed case with pulmonology, Dr. Tabares who he will admitted to COVID ICU. At this current time recommended to follow q12h labs and if worsen can consider at that time starting hydroxychloroquine. -Telemetry monitoring for ST changes and tropinon q12h -Isolation precautions -Covid labs q12h ordered -DNR/DNI 2.Nausea and vomiting -possible COVID induced nausea, which has been known to cause nausea, no diarrheal complaint -patient does take Zofran outpatient but no relief with IV in the ER -will give promethazine for nasuea for elderly tolerate better . 3.Asthma and Chronic Hypoxic respiratory failure with 2 L at home as needed -chronic prednisone at home (5mg qam and 2.5 qpm), hesitant to restart in the setting of COVID tonight, but because is on it chronically can consider to restart in the AM because of the risk of adrenal insufficiency. -c/w with Xopenex for PRN SOB and wheezing and Symbicort as prescribed 4. Atrial fibrillation s/p cardiac ablation, Watchman procedure and pacemaker for tachybradycardia syndrome. -c/w amiodarone, atenolol, and diltiazem as prescribed. -Hold home Eliquis and aspirin and start Lovenox 0.5 mg/kg q12h due to problem 1 5. Hypertension -continue medication as proscribed 6. GERD -continue with omeprazole 7. Hyperlipidemia 8. Chronic kidney disease stage III 9. BPH -Continue with finasteride and tamsulosin 10. Restless leg syndrome -Continue with ropinirole 0.5mg qhs DVT PROPHYLAXIS:Lovenox 0.5mg/kg xq12h DISPOSITION: Admits to [facility] HOSPITALIST ATTENDING ADDENDUM: I have independently interviewed and examined the patient at the bedside, and agree with the aforementioned history, clinical findings, and management plan as documented by my resident physician. The patient's concerns and questions have been satisfactorily addressed. The patient has been encouraged to contact our office for any new concerns at [phone]. Vital Signs Vital Signs Date Time Temp Pulse Resp B/P (MAP) Pulse Ox O2 Delivery O2 Flow Rate FiO2 07/16/19 21:08 24 07/16/19 21:05 Nasal Cannula 2.0 07/16/19 21:01 100.6 70 137/62 (87) 95 Laboratory Data Labs 24H Laboratory Tests 2 07/16/19 18:39: Immature Granulocyte % (Auto) 1.9, Neutrophils (%) (Auto) 68.2H, Lymphocytes (%) (Auto) 6.0L, Monocytes (%) (Auto) 23.4H, Eosinophils (%) (Auto) 0.1, Basophils (%) (Auto) 0.4, Neutrophils # (Auto) 5.5, Lymphocytes # (Auto) 0.5L, Monocytes # (Auto) 1.9H, Eosinophils # (Auto) 0.0, Basophils # (Auto) 0.0, Nucleated Red Blood Cells % (auto) 0.0, Prothrombin Time 16.4H, Prothromb Time International Ratio 1.35, Activated Partial Thromboplast Time 38.3, D-Dimer, Quantitative 325.56, Anion Gap 4L, Glomerular Filtration Rate 39.5, Lactic Acid Level 0.8, Calcium Level 8.6L, Ferritin 235, Total Bilirubin 0.5, Aspartate Amino Transf (AST/SGOT) 22, Alanine Aminotransferase (ALT/SGPT) 16, Alkaline Phosphatase 38L, Lactate Dehydrogenase 172, Total Creatine Kinase 28L, Creatine Kinase MB < 1.0, Creatine Kinase MB Relative Index 3.57, Troponin I < 0.02, C-Reactive Protein, Quantitative 14.70H, Total Protein 5.7L, Albumin 2.9L, Albumin/Globulin Ratio 1.04, Coronavirus (COVID-19)(PCR) POSITIVEA CBC/BMP Laboratory Tests 07/16/19 18:39 Microbiology Microbiology 07/16/19 Blood Culture, Received Pending 07/16/19 Blood Culture, Received Pending Home Medications Scheduled Amiodarone HCl (Amiodarone HCl) 200 Mg Tablet, 200 MG PO DAILY Apixaban (Eliquis) 2.5 Mg Tab, 2.5 MG PO BID Aspirin (Aspir 81) 81 Mg Tab, 81 MG PO DAILY Atenolol (Atenolol) 25 Mg Tablet, 25 MG PO BID Budesonide/Formoterol (Symbicort 160-4.5 Mcg Inhaler) 60 Puff/Inhaler Aers, 2 PUFFS INH BID Diltiazem HCl (Cardizem) 120 Mg Tablet, 120 MG PO DAILY Fenofibrate (Fenofibrate) 160 Mg Tab, 160 MG PO DAILY Finasteride (Finasteride) 5 Mg Tab, 5 MG PO QHS Magnesium Chloride (Mag64) 64 Mg Tablet.dr, 64 MG PO DAILY Carson-3 Fatty Acids/Fish Oil (Fish Oil 1,200 mg Softgel) 1 Each Capsule, 1,200 MG PO BID Omeprazole (Omeprazole) 40 Mg Cap, 40 MG PO DAILY Potassium Chloride (Potassium Chloride) 20 Meq Tab.er.prt, 10 MEQ PO QPM Prednisone (Prednisone) 5 Mg Tab, 5 MG PO QAM Prednisone (Prednisone) 5 Mg Tablet, 2.5 MG PO QHS Ropinirole HCl (Ropinirole HCl) 0.25 Mg Tablet, 0.25 MG PO QHS Tamsulosin Hcl (Tamsulosin HCl) 0.4 Mg Capsule, 0.4 MG PO QHS ON HOLD SINCE 03/29/19 Torsemide (Torsemide) 10 Mg Tablet, 10 MG PO QHS Scheduled PRN Acetaminophen (Acetaminophen) 500 Mg Tablet, 1,000 MG PO Q8H PRN for PAIN TAKES WITH TRAMADOL PRN Levalbuterol Hydrochloride (Xopenex Hfa) 45 Mcg/Act Aer, 2 PUFF INH Q4H PRN for SOB/WHEEZING Ondansetron HCl (Ondansetron HCl) 4 Mg Tablet, 4 MG PO Q8H PRN for NAUSEA OR VOMITING Tramadol HCl (Tramadol HCl) 50 Mg Tab, 50 MG PO TID PRN for PAIN TAKES WITH TYLENOL PRN Miscellaneous Medications [Patient Comments] PATIENT PROVIDED INFORMATION ON MEDICATIONS AND LAST TIME TAKEN HOWEVER HE WAS VERY UNCOMFORTABLE AND NOT SURE OF SOME MEDICATIONS Allergies Coded Allergies: fluconazole (Verified Allergy, Unknown, UNKNOWN REACTION, 03/31/19) fluticasone (Verified Allergy, Unknown, UNKNOWN REACTION, 03/31/19) metformin (Verified Allergy, Unknown, UNKNOWN REACTION, 03/31/19) petrolatum,white (Verified Allergy, Unknown, ITCH/RASH, 03/31/19) azithromycin (Verified Adverse Reaction, Unknown, LOWERS BP, 03/31/19) clarithromycin (Verified Adverse Reaction, Unknown, LOWERS BP, 03/31/19) procaine (Verified Adverse Reaction, Unknown, DIZZINESS, 03/31/19) AMISHA SUAREZ DO Jul 16, 2019 21:34 TRENT GREER MD Jul 17, 2019 09:33 YUNI BILLINGS MD Jul 17, 2019 22:33
[2019-07-16] MEDS ORDERED: CARD120T4 PO (21:40)
[2019-07-16] MEDS ORDERED: AMIO200T PO (21:40)
[2019-07-16] MEDS ORDERED: ATEN25TA PO (21:40)
[2019-07-16] MEDS ORDERED: ONDA-83 PO (21:40)
[2019-07-16] MEDS ORDERED: PRED5TA PO (21:40)
[2019-07-16 21:41] LABS: ABG BASE EXCESS 8.2 (-2.0-2.0); ABG HCO3 33.6 MEQ/L (22.0-26.0); ABG O2 SATURATION 97.1 % (95.0-99.0); ABG PARTIAL PRESSURE CO2 51.1 mmHg (35.0-45.0); ABG PARTIAL PRESSURE O2 96.9 mmHg (75.0-100.0); ABG TOTAL CO2 35.2 MEQ/L (23.0-31.0); ABG pH (ARTERIAL) 7.436 UNITS (7.350-7.450)
[2019-07-16] MEDS ORDERED: PATIENT COMMENTS (21:41)
[2019-07-16 22:00] VITALS: BP 131/62
[2019-07-16 22:15] VITALS: BP 131/62
[2019-07-17] VITALS (10 sets, daily range): BP systolic 88–126; BP diastolic 50–60; O2SAT 95
[2019-07-17] MEDS: PROMETHAZINE INJ 25 MG/ML VIAL (J2550) IV PRN ×3 (00:55→18:16)
[2019-07-17] MEDS: FINASTERIDE 5 MG TAB PO SCH ×2 (00:56→20:13)
[2019-07-17] MEDS: POTASSIUM CHLORIDE 10 MEQ SR TABLET PO SCH ×2 (00:56→20:13)
--- NOTE | 2019-07-17 00:59 | ECGEPIP ---
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
[2019-07-17] MEDS ORDERED: ONDANSETRON 4MG/2ML VIAL IV PRN (01:00)
[2019-07-17] MEDS: ACETAMINOPHEN TAB 650MG DOSE (2X325MG) PO PRN ×3 (01:00→15:06)
[2019-07-17] MEDS: SYMBICORT 160/4.5MCG INHALER 6GM INH SCH ×3 (01:44→20:16)
[2019-07-17] MEDS ORDERED: NS 500 ML IV ONE (02:45)
[2019-07-17 03:04] LABS: ABG BASE EXCESS 5.4 (-2.0-2.0); ABG HCO3 31.1 MEQ/L (22.0-26.0); ABG O2 SATURATION 96.7 % (95.0-99.0); ABG PARTIAL PRESSURE CO2 51.5 mmHg (35.0-45.0); ABG PARTIAL PRESSURE O2 97.7 mmHg (75.0-100.0); ABG STANDARD HCO3 29.4 MEQ/L (22.0-26.0); ABG TOTAL CO2 32.7 MEQ/L (23.0-31.0); ABG pH (ARTERIAL) 7.399 UNITS (7.350-7.450)
[2019-07-17] MEDS ORDERED: NS 1,000 ML IV SCH (03:30)
[2019-07-17] MEDS ORDERED: NS 500 ML IV SCH (04:03)
[2019-07-17 05:42] LABS: BASO % 0.3 % (0.0-1.0); EOS % 0.1 % (0.0-3.0); HEMATOCRIT 28.9 % (42.0-52.0); HEMOGLOBIN 9.1 g/dl (13.5-17.5); LYMPH # 0.6 10^3/uL (1.5-5.0); LYMPH % 6.7 % (24.0-44.0); MEAN CORPUSCULAR HEMOGLOBIN 28.6 pg (27.0-33.0); MEAN CORPUSCULAR HGB CONC 31.5 g/dl (32.0-36.5); MEAN CORPUSCULAR VOLUME 90.9 fl (80.0-96.0); MONO # 2.1 10^3/uL (0.0-0.8); MONO % 24.4 % (0.0-5.0); NEUTROPHILS # 5.8 10^3/uL (1.5-8.5); NEUTROPHILS % 66.9 % (36.0-66.0); PLATELET COUNT, AUTOMATED 136 10^3/uL (150-450); RED BLOOD COUNT 3.18 10^6/uL (4.30-6.10); WHITE BLOOD COUNT 8.7 10^3/uL (4.0-10.0)
[2019-07-17 05:51] LABS: INR 1.39; PROTHROMBIN TIME 16.7 SECONDS (11.8-14.0)
[2019-07-17 05:52] LABS: FIBRINOGEN 536 MG/DL (221-452); PARTIAL THROMBOPLASTIN TIME 54.4 SECONDS (25.0-38.4)
[2019-07-17 05:58] LABS: D-DIMER QUANT < 270 ng/ml (<500)
[2019-07-17 06:41] LABS: FERRITIN 260 NG/ML (26-388); LDH LACTATE DEHYDROGENASE 151 U/L (87-241); NT-PRO BNP 725 PG/ML (<450); TRIGLYCERIDES LEVEL 88 MG/DL (<150); TROPONIN I < 0.02 NG/ML (< 0.10)
[2019-07-17 07:59] LABS: ALBUMIN 2.5 GM/DL (3.2-5.2); ALT/SGPT 18 U/L (12-78); BILIRUBIN,TOTAL 0.5 MG/DL (0.2-1.0); BLOOD UREA NITROGEN 25 MG/DL (7-18); CARBON DIOXIDE LEVEL 31 MEQ/L (21-32); CHLORIDE LEVEL 104 MEQ/L (98-107); CHOLESTEROL LEVEL 102 MG/DL (< 200); CPK CREATINE PHOSPHOKINASE 25 U/L (39-308); CREATININE FOR GFR 1.91 MG/DL (0.70-1.30); GLOMERULAR FILTRATION RATE 35.9 (>35); GLUCOSE, FASTING 90 MG/DL (70-100); PHOSPHORUS LEVEL 3.6 MG/DL (2.5-4.9); POTASSIUM SERUM 3.6 MEQ/L (3.5-5.1); SODIUM LEVEL 142 MEQ/L (136-145)
[2019-07-17] MEDS: MAGNESIUM CHLORIDE 64 MG TABCR (SLO MAG) PO SCH (08:26)
[2019-07-17] MEDS: OMEPRAZOLE 20 MG CAP PO SCH (08:26)
[2019-07-17] MEDS: AMIODARONE 200 MG TAB (PACERONE) PO SCH (08:26)
[2019-07-17] MEDS: ENOXAPARIN 30MG/0.3ML SYRINGE (J1650 PER 10MG) SC SCH ×2 (08:27→20:12)
[2019-07-17] MEDS: atenoloL 25 MG TAB PO SCH ×2 (08:27→20:17)
[2019-07-17] MEDS: predniSONE 5 MG TAB PO SCH (08:27)
--- NOTE | 2019-07-17 08:53 | REP ---
HISTORY: Coronavirus. COMPARISON: Multiple, the latest 03/31/2019. The technique utilized in obtaining the radiograph has magnified the cardiac silhouette and accentuated the interstitial markings. There is cardiomegaly accentuated by technique. There is basilar fibrotic change, status quo. There are no acute patchy parenchymal opacities or pleural effusions. There is no change in the dual chamber bipolar pacemaker device. There is no change in the osseous structures. IMPRESSION: No significant change. No evidence of acute cardiopulmonary disease. Electronically Signed by Mitul Gallo DO 07/19/2019 07:48 A
--- NOTE | 2019-07-17 09:40 | IPNPDOC ---
Subjective Date Seen The patient was seen on 07/17/19. Subjective Chief Complaint/HPI Patient examined and interviewed at bedside, no shortness of breath, no fever just feeling tired and fatigued wants to sleep General: Denies: ROS Unobtainable, Chills, Night Sweats, Fatigue, Malaise, Normal Appetite, Other Symptoms Constitutional: Denies: Chills, Fever, Malaise, Night Sweats, Weakness, Fatigue, Weight Loss, Lethargy, Other Pulmonary: Denies: Dyspnea, Cough, Pleuritic Chest Pain, Other Symptoms Cardiovascular: Denies: Chest Pain, Palpitations, Orthopnea, Paroxysmal Noc. Dyspnea, Edema, Lt Headedness, Other Symptoms Gastrointestinal: Denies: Nausea, Vomiting, Abdominal Pain, Diarrhea, Constipation, Melena, Hematochezia, Other Symptoms Musculoskeletal: Denies: Neck Pain, Back Pain, Shoulder Pain, Arm Pain, Hand Pain, Leg Pain, Foot Pain, Joint Pain, Muscle Pain, Spasms, Other Symptoms Neurological: Denies: Weakness, Numbness, Incoordination, Change in speech, Confusion, Seizures, Other Symptoms Objective Physical Examination General Exam: Positive: Alert, Cooperative Eye Exam: Positive: PERRLA, Conjunctiva & lids normal ENT Exam: Positive: Atraumatic Neck Exam: Positive: Supple Chest Exam: Positive: Clear to auscultation, Normal air movement Heart Exam: Positive: Rate Normal, Normal S1, Normal S2 Abdomen Exam: Positive: Normal bowel sounds, Soft Extremity Exam: Positive: Normal pulses Skin Exam: Positive: Nl turgor and temperature Neuro Exam: Positive: Strength at 5/5 X4 ext, Cranial Nerves 3-12 NL Psych Exam: Positive: Oriented x 3 Assessment /Plan Problems (1) SARS-associated coronavirus infection Problem Text: Patient is positive Covid infection, admitted to ICU last night for further observation as his is also admitted with a similar infection. Patient has been started on all his home medication including prednisone He is maintaining his pulse ox at 96-97% on [address] Tabares as patient is maintaining his oxygenation and in no respiratory symptoms at this time. We will avoid the use hydrocodone, Levaquin, as patient is on other multiple medications including amiodarone, which might c ause interactions. A strict contact and droplet isolation Check liver every 12 hours Patient is DNR/DNI Addendum: Patient's nausea, vomiting, most likely secondary to Covid infection, patient's symptoms have resolved. He is feeling much better at the present time on current when necessary medications including promethazine (2) Afib Status: Chronic Problem Text: Ventricular rate is under control Continue home meds (3) HTN (hypertension) Status: Chronic Problem Text: Blood pressure is under control. Continue home meds (4) GERD (gastroesophageal reflux disease) Status: Chronic Problem Text: Continue home meds (5) COPD (chronic obstructive pulmonary disease) Status: Chronic Problem Text: Patient's COPD is compensated Continue by mouth prednisone as per home dosage Further recommendations as per pulmonary critical care Plan/VTE VTE Prophylaxis Ordered?: Yes VS, I&O, 24H, Fishbone Vital Signs/I&O Vital Signs Date Time Temp Pulse Resp B/P (MAP) Pulse Ox O2 Delivery O2 Flow Rate FiO2 07/17/19 08:00 98.6 69 18 126/60 (82) 91 Nasal Cannula 1.0 I&O- Last 24 Hours up to 6 AM 07/17/19 06:00 Intake Total 860 ml Output Total 250 ml Balance 610 ml Laboratory Data 24H LABS Laboratory Tests 2 07/16/19 18:39: Immature Granulocyte % (Auto) 1.9, Neutrophils (%) (Auto) 68.2H, Lymphocytes (%) (Auto) 6.0L, Monocytes (%) (Auto) 23.4H, Eosinophils (%) (Auto) 0.1, Basophils (%) (Auto) 0.4, Neutrophils # (Auto) 5.5, Lymphocytes # (Auto) 0.5L, Monocytes # (Auto) 1.9H, Eosinophils # (Auto) 0.0, Basophils # (Auto) 0.0, Nucleated Red Blood Cells % (auto) 0.0, Prothrombin Time 16.4H, Prothromb Time International Ratio 1.35, Activated Partial Thromboplast Time 38.3, D-Dimer, Quantitative 325.56, Anion Gap 4L, Glomerular Filtration Rate 39.5, Lactic Acid Level 0.8, Calcium Level 8.6L, Ferritin 235, Total Bilirubin 0.5, Aspartate Amino Transf (AST/SGOT) 22, Alanine Aminotransferase (ALT/SGPT) 16, Alkaline Phosphatase 38L, Lactate Dehydrogenase 172, Total Creatine Kinase 28L, Creatine Kinase MB < 1.0, Creatine Kinase MB Relative Index 3.57, Troponin I < 0.02, C-Reactive Protein, Quantitative 14.70H, Total Protein 5.7L, Albumin 2.9L, Albumin/Globulin Ratio 1.04, Coronavirus (COVID-19)(PCR) POSITIVEA 07/16/19 21:36: Blood Gas Bicarbonate Standard 32.0H, Arterial Blood pH 7.436, Arterial Blood Partial Pressure CO2 51.1H, Arterial Blood Partial Pressure O2 96.9, Arterial Blood Total CO2 35.2H, Arterial Blood HCO3 33.6H, Arterial Blood Base Excess 8.2H, Arterial Blood Oxygen Saturation 97.1 07/16/19 21:44: Urine Color YELLOW, Urine Appearance CLEAR, Urine pH 5.0, Urine Specific [place] 1.009, Urine Protein NEGATIVE, Urine Glucose (UA) NEGATIVE, Urine Ketones NEGATIVE, Urine Blood NEGATIVE, Urine Nitrite NEGATIVE, Urine Bilirubin NEGATIVE, Urine Urobilinogen 0.2, Urine Leukocyte Esterase NEGATIVE, Urine WBC (Auto) 0, Urine RBC (Auto) 0, Urine Hyaline Casts (Auto) 12, Urine Bacteria (Auto) NEGATIVE, Urine Squamous Epithelial Cells 0, Urine Mucus (Auto) SMALL, Urine Sperm (Auto) 07/17/19 02:57: Blood Gas Bicarbonate Standard 29.4H, Arterial Blood pH 7.399, Arterial Blood Partial Pressure CO2 51.5H, Arterial Blood Partial Pressure O2 97.7, Arterial Blood Total CO2 32.7H, Arterial Blood HCO3 31.1H, Arterial Blood Base Excess 5.4H, Arterial Blood Oxygen Saturation 96.7 07/17/19 05:23: Immature Granulocyte % (Auto) 1.6, Neutrophils (%) (Auto) 66.9H, Lymphocytes (%) (Auto) 6.7L, Monocytes (%) (Auto) 24.4H, Eosinophils (%) (Auto) 0.1, Basophils (%) (Auto) 0.3, Neutrophils # (Auto) 5.8, Lymphocytes # (Auto) 0.6L, Monocytes # (Auto) 2.1H, Eosinophils # (Auto) 0.0, Basophils # (Auto) 0.0, Nucleated Red Blood Cells % (auto) 0.0, Prothrombin Time 16.7H, Prothromb Time International Ratio 1.39, Activated Partial Thromboplast Time 54.4H, Fibrinogen 536H, D-Dimer, Quantitative < 270, Anion Gap 7L, Glomerular Filtration Rate 35.9, Calcium Level 8.0L, Phosphorus Level 3.6, Ferritin 260, Total Bilirubin 0.5, Aspartate Amino Transf (AST/SGOT) 24, Alanine Aminotransferase (ALT/SGPT) 18, Alkaline Ph osphatase 32L, Lactate Dehydrogenase 151, Total Creatine Kinase 25L, Troponin I < 0.02, C-Reactive Protein, Quantitative 16.00H, KF-Yoc-L-Type Natriuretic Peptide 725H, Total Protein 5.0L, Albumin 2.5L, Albumin/Globulin Ratio 1.00, Triglycerides Level 88, Cholesterol Level 102 CBC/BMP Laboratory Tests 07/16/19 18:39 07/17/19 05:23 Microbiology Microbiology 07/16/19 Blood Culture, Received Pending 07/16/19 Blood Culture, Received Pending TRENT GREER MD Jul 17, 2019 09:40
[2019-07-17 18:22] LABS: BASO % 0.1 % (0.0-1.0); HEMATOCRIT 27.5 % (42.0-52.0); LYMPH # 0.5 10^3/uL (1.5-5.0); MEAN CORPUSCULAR HEMOGLOBIN 29.6 pg (27.0-33.0); MEAN CORPUSCULAR HGB CONC 32.7 g/dl (32.0-36.5); MEAN CORPUSCULAR VOLUME 90.5 fl (80.0-96.0); MONO # 1.4 10^3/uL (0.0-0.8); MONO % 17.8 % (0.0-5.0); NEUTROPHILS % 75.1 % (36.0-66.0); PLATELET COUNT, AUTOMATED 143 10^3/uL (150-450); RED BLOOD COUNT 3.04 10^6/uL (4.30-6.10)
[2019-07-17 18:49] LABS: PROTHROMBIN TIME 15.9 SECONDS (11.8-14.0)
[2019-07-17 18:50] LABS: FIBRINOGEN 552 MG/DL (221-452); PARTIAL THROMBOPLASTIN TIME 46.2 SECONDS (25.0-38.4)
[2019-07-17 19:03] LABS: C REACTIVE PROTEIN QUANTITATIV 20.9 MG/DL (0.00-0.30)
[2019-07-17 19:15] LABS: D-DIMER QUANT < 270 ng/ml (<500)
[2019-07-17] MEDS: MIRALAX *UNIT DOSE* 17GM PACKET PO SCH (20:11)
[2019-07-17] MEDS: traMADol 50 MG TAB PO PRN (20:12)
[2019-07-17] MEDS: rOPINIRole 0.25 MG TAB(REQUIP) PO SCH (20:12)
[2019-07-17] MEDS: TORSEMIDE 10 MG TABLET PO SCH (20:13)
[2019-07-17] MEDS: TAMSULOSIN 0.4 MG CAP PO SCH (20:13)
[2019-07-17] MEDS: predniSONE 2.5 MG TAB PO SCH (20:16)
[2019-07-18] VITALS: BP 105/54
[2019-07-18] MEDS ORDERED: GABAPENTIN 300 MG CAP PO ONE (00:45)
[2019-07-18] MEDS: PROMETHAZINE INJ 25 MG/ML VIAL (J2550) IV PRN (01:04)
[2019-07-18 04:00] VITALS: BP 106/52
[2019-07-18] MEDS: traMADol 50 MG TAB PO PRN (05:11)
[2019-07-18 05:41] LABS: BASO % 0.1 % (0.0-1.0); EOS % 0.1 % (0.0-3.0); HEMOGLOBIN 9.2 g/dl (13.5-17.5); LYMPH # 0.6 10^3/uL (1.5-5.0); LYMPH % 7.1 % (24.0-44.0); MEAN CORPUSCULAR HEMOGLOBIN 28.7 pg (27.0-33.0); MEAN CORPUSCULAR HGB CONC 31.7 g/dl (32.0-36.5); MEAN CORPUSCULAR VOLUME 90.3 fl (80.0-96.0); MONO # 1.5 10^3/uL (0.0-0.8); MONO % 17.9 % (0.0-5.0); NEUTROPHILS # 6.3 10^3/uL (1.5-8.5); NEUTROPHILS % 73.6 % (36.0-66.0); PLATELET COUNT, AUTOMATED 161 10^3/uL (150-450); RED BLOOD COUNT 3.21 10^6/uL (4.30-6.10); WHITE BLOOD COUNT 8.5 10^3/uL (4.0-10.0)
[2019-07-18 05:48] LABS: INR 1.18; PROTHROMBIN TIME 14.8 SECONDS (11.8-14.0)
[2019-07-18 05:49] LABS: PARTIAL THROMBOPLASTIN TIME 48.7 SECONDS (25.0-38.4)
[2019-07-18 05:51] LABS: D-DIMER QUANT 274.6 ng/ml (<500)
[2019-07-18 06:22] LABS: ALBUMIN 2.3 GM/DL (3.2-5.2); ALT/SGPT 15 U/L (12-78); BILIRUBIN,TOTAL 0.4 MG/DL (0.2-1.0); BLOOD UREA NITROGEN 24 MG/DL (7-18); CALCIUM LEVEL 8.4 MG/DL (8.8-10.2); CARBON DIOXIDE LEVEL 35 MEQ/L (21-32); CHLORIDE LEVEL 102 MEQ/L (98-107); CREATININE FOR GFR 1.73 MG/DL (0.70-1.30); FERRITIN 344 NG/ML (26-388); GLOMERULAR FILTRATION RATE 40.3 (>35); GLUCOSE, FASTING 130 MG/DL (70-100); LDH LACTATE DEHYDROGENASE 189 U/L (87-241); NT-PRO BNP 791 PG/ML (<450); POTASSIUM SERUM 3.8 MEQ/L (3.5-5.1); SODIUM LEVEL 141 MEQ/L (136-145); TOTAL PROTEIN 5.1 GM/DL (6.4-8.2); TRIGLYCERIDES LEVEL 100 MG/DL (<150); TROPONIN I < 0.02 NG/ML (< 0.10)
[2019-07-18] MEDS: SYMBICORT 160/4.5MCG INHALER 6GM INH SCH ×2 (07:25→20:11)
[2019-07-18 08:00] VITALS: BP 110/53
[2019-07-18] MEDS: ENOXAPARIN 30MG/0.3ML SYRINGE (J1650 PER 10MG) SC SCH ×2 (08:10→20:26)
[2019-07-18] MEDS: MAGNESIUM CHLORIDE 64 MG TABCR (SLO MAG) PO SCH (08:10)
[2019-07-18] MEDS: AMIODARONE 200 MG TAB (PACERONE) PO SCH (08:10)
[2019-07-18] MEDS: predniSONE 5 MG TAB PO SCH (08:10)
[2019-07-18] MEDS: OMEPRAZOLE 20 MG CAP PO SCH (08:10)
[2019-07-18] MEDS: ACETAMINOPHEN TAB 650MG DOSE (2X325MG) PO PRN ×2 (08:30→23:58)
[2019-07-18] MEDS: atenoloL 25 MG TAB PO SCH ×2 (08:42→20:26)
--- NOTE | 2019-07-18 08:53 | REP ---
Portable chest x-ray: Single AP sitting view. History: Comparison. Pryor virus workup. Comparison study July 16, 2019, and March 31, 2019 . Findings: Monitoring electrodes and oxygen delivery tubing are present. Bipolar pacemaker is seen in the right heart via the left side as before. Heart size is unchanged. No pleural effusion or pulmonary edema is seen. There are emphysematous changes in the upper lobes bilaterally. No definite infiltrate is seen. No acute bony abnormality. Impression: No focal infiltrate seen. Pacemaker in place. Emphysematous changes. Electronically Signed by Miller El MD 07/18/2019 08:45 A
--- NOTE | 2019-07-18 09:19 | IPNPDOC ---
Subjective Date Seen The patient was seen on 07/18/19. Subjective Chief Complaint/HPI Patient complaining of worsening of cough and and slight increase in shortness of breath overnight, cough is dry without any phlegm. General: Denies: ROS Unobtainable, Chills, Night Sweats, Fatigue, Malaise, Normal Appetite, Other Symptoms Constitutional: Reports: Weakness, Fatigue Eyes: Denies: Pain, Vision change, Conjunctivae inflammation, Eyelid inflammation, Redness, Other ENT: Denies: Head Aches, Ear Pain, Dysphagia, Sinus Congestion, Post Nasal D rip, Sore Throat, Epistaxis, Other Symptoms Skin: Denies: Rash, Lesions, Jaundice, Bruising, Itching, Dry, Breakdown, Nail Changes, Other Pulmonary: Reports: Cough, Other Symptoms (increasing shortness of breath) Cardiovascular: Denies: Chest Pain, Palpitations, Orthopnea, Paroxysmal Noc. Dyspnea, Edema, Lt Headedness, Other Symptoms Gastrointestinal: Denies: Nausea, Vomiting, Abdominal Pain, Diarrhea, Consti pation, Melena, Hematochezia, Other Symptoms Musculoskeletal: Denies: Neck Pain, Back Pain, Shoulder Pain, Arm Pain, Hand Pain, Leg Pain, Foot Pain, Joint Pain, Muscle Pain, Spasms, Other Symptoms Neurological: Denies: Weakness, Numbness, Incoordination, Change in speech, Confusion, Seizures, Other Symptoms Objective Physical Examination General Exam: Positive: Other (, patient is awake, alert 3, no cardiopulmonary distress) Eye Exam: Positive: PERRLA, Conjunctiva & lids normal, EOMI ENT Exam: Positive: Mucous membr. moist/pink Chest Exam: Positive: Other (. Diminished breath sounds bilaterally but no rales or rhonchi or wheezing) Heart Exam: Positive: Rate Normal, Normal S1, Normal S2 Abdomen Exam: Positive: Normal bowel sounds, Soft, Tenderness (. No tenderness) Skin Exam: Positive: Nl turgor and temperature Assessment /Plan Problems (1) SARS-associated coronavirus infection Problem Text: Patient is positive Covid infection, admitted to ICU last night for further observation as his is also admitted with a similar infection. Patient has been started on all his home medication including prednisone Patient has increasing cough and shortness of breath since last night He is afebrile. His temperature is 98.6, respiratory rate of 20, pulse IS 91% on 2 L nasal cannula. Blood pressure slightly lower 106/52 with heart rate of 69 Repeat chest x-ray has been ordered which is still pending CBC shows WBC count of 8.5, hemoglobin 9.2, platelets 161, and electrolytes are within normal range , BUN of 24, creatinine 1.73 Continue oxygen support as needed Patient. Blood pressure is a stable but on the lower side. Will not start IV fluid as might precipitate pulmonary congestion secondary to patient's cardiac status Discussed in details with Dr. Simons, will start patient on hydroxychloroquine 400 mg by mouth twice a day today and then 200 mg by mouth twice a day for 4 more days As patient is on multiple cardiac meds including amiodarone, Cardizem, atenolol with QTC of 391, will continue monitoring patient's QTC on hydroxychloroquine and avoid adding Zithromax for the same reason. Continue present care and will follow further recommendation as per pulmonary critical care (2) Afib Status: Chronic Problem Text: Ventricular rate is under control Continue home meds (3) HTN (hypertension) Status: Chronic Problem Text: Patient's antihypertensive meds are on hold secondary to labile blood pressure (4) GERD (gastroesophageal reflux disease) Status: Chronic Problem Text: Continue home meds (5) COPD (chronic obstructive pulmonary disease) Status: Chronic Problem Text: Patient's COPD is compensated Continue nebulizer treatment as needed Continue by mouth prednisone as per home dosage Further recommendations as per pulmonary critical care Plan/VTE VTE Prophylaxis Ordered?: Yes VS, I&O, 24H, Fishbone Vital Signs/I&O Vital Signs Date Time Temp Pulse Resp B/P (MAP) Pulse Ox O2 Delivery O2 Flow Rate FiO2 07/18/19 08:00 2.0 07/18/19 08:00 100.2 69 18 110/53 (72) 91 Nasal Cannula I&O- Last 24 Hours up to 6 AM 07/18/19 06:00 Intake Total 1860 ml Output Total 875 ml Balance 985 ml Laboratory Data 24H LABS Laboratory Tests 2 07/17/19 18:07: Immature Granulocyte % (Auto) 1.0, Neutrophils (%) (Auto) 75.1H, Lymphocytes (%) (Auto) 6.0L, Monocytes (%) (Auto) 17.8H, Eosinophils (%) (Auto) 0.0, Basophils (%) (Auto) 0.1, Neutrophils # (Auto) 6.0, Lymphocytes # (Auto) 0.5L, Monocytes # (Auto) 1.4H, Eosinophils # (Auto) 0.0, Basophils # (Auto) 0.0, Nucleated Red Blood Cells % (auto) 0.0, Prothrombin Time 15.9H, Prothromb Time International Ratio 1.30, Activated Partial Thromboplast Time 46.2H, Fibrinogen 552H, D-Dimer, Quantitative < 270, Ferritin 305, Lactate Dehydrogenase 160, C-Reactive Protein, Quantitative 20.90H, EN-Lvh-[id number]-Type Natriuretic Peptide 654H, Triglycerides Level 109 07/18/19 05:14: Immature Granulocyte % (Auto) 1.2, Neutrophils (%) (Auto) 73.6H, Lymphocytes (%) (Auto) 7.1L, Monocytes (%) (Auto) 17.9H, Eosinophils (%) (Auto) 0.1, Basophils (%) (Auto) 0.1, Neutrophils # (Auto) 6.3, Lymphocytes # (Auto) 0.6L, Monocytes # (Auto) 1.5H, Eosinophils # (Auto) 0.0, Basophils # (Auto) 0.0, Nucleated Red Blood Cells % (auto) 0.0, Prothrombin Time 14.8H, Prothromb Time International Ratio 1.18, Activated Partial Thromboplast Time 48.7H, Fibrinogen 615H, D-Dimer, Quantitative 274.60, Ferritin 344, Lactate Dehydrogenase 189, C-Reactive Protein, Quantitative 23.10H, CJ-Wko-N-Type Natriuretic Peptide 791H, Triglycerides Level 100, Anion Gap 4L, Glomerular Filtration Rate 40.3, Calcium Level 8.4L, Total Bilirubin 0.4, Aspartate Amino Transf (AST/SGOT) 26, Alanine Aminotransferase (ALT/SGPT) 15, Alkaline Phosphatase 38L, Troponin I < 0.02, Tot al Protein 5.1L, Albumin 2.3L, Albumin/Globulin Ratio 0.82L CBC/BMP Laboratory Tests 07/17/19 18:07 07/18/19 05:14 Microbiology Microbiology 07/16/19 Blood Culture - Preliminary, Resulted No growth after 24 hours . All specim... 07/16/19 Blood Culture - Preliminary, Resulted No growth after 24 hours . All specim... TRENT GREER MD Jul 18, 2019 09:19
[2019-07-18] MEDS: guaiFENesin/CODEINE SYRUP 5 ML UDC PO PRN ×2 (10:04→20:28)
[2019-07-18] MEDS: HYDROXYCHLOROQUINE 200 MG TAB PO SCH ×2 (10:04→20:23)
[2019-07-18 12:01] VITALS: BP 93/53
[2019-07-18 16:00] VITALS: BP 111/57
[2019-07-18 18:15] LABS: BASO % 0.1 % (0.0-1.0); HEMATOCRIT 28.5 % (42.0-52.0); HEMOGLOBIN 9.2 g/dl (13.5-17.5); LYMPH # 0.4 10^3/uL (1.5-5.0); LYMPH % 5.2 % (24.0-44.0); MEAN CORPUSCULAR HEMOGLOBIN 29.4 pg (27.0-33.0); MEAN CORPUSCULAR HGB CONC 32.3 g/dl (32.0-36.5); MEAN CORPUSCULAR VOLUME 91.1 fl (80.0-96.0); MONO # 1.6 10^3/uL (0.0-0.8); MONO % 19.2 % (0.0-5.0); NEUTROPHILS # 6.3 10^3/uL (1.5-8.5); NEUTROPHILS % 74.3 % (36.0-66.0); PLATELET COUNT, AUTOMATED 157 10^3/uL (150-450); RED BLOOD COUNT 3.13 10^6/uL (4.30-6.10); WHITE BLOOD COUNT 8.5 10^3/uL (4.0-10.0)
[2019-07-18 18:26] LABS: INR 1.17; PROTHROMBIN TIME 14.6 SECONDS (11.8-14.0)
[2019-07-18 18:27] LABS: FIBRINOGEN 653 MG/DL (221-452); PARTIAL THROMBOPLASTIN TIME 41.3 SECONDS (25.0-38.4)
[2019-07-18 18:40] LABS: ALBUMIN 2.2 GM/DL (3.2-5.2); BILIRUBIN,TOTAL 0.4 MG/DL (0.2-1.0); CALCIUM LEVEL 8.5 MG/DL (8.8-10.2); CREATININE FOR GFR 1.8 MG/DL (0.70-1.30); GLOMERULAR FILTRATION RATE 38.5 (>35); POTASSIUM SERUM 4.4 MEQ/L (3.5-5.1)
[2019-07-18 18:41] LABS: D-DIMER QUANT < 270 ng/ml (<500)
[2019-07-18 18:45] LABS: C REACTIVE PROTEIN QUANTITATIV 21.2 MG/DL (0.00-0.30)
[2019-07-18 20:00] VITALS: BP 128/67
[2019-07-18] MEDS: FINASTERIDE 5 MG TAB PO SCH (20:21)
[2019-07-18] MEDS: TAMSULOSIN 0.4 MG CAP PO SCH (20:22)
[2019-07-18] MEDS: rOPINIRole 0.25 MG TAB(REQUIP) PO SCH (20:22)
[2019-07-18] MEDS: predniSONE 2.5 MG TAB PO SCH (20:23)
[2019-07-18] MEDS: TORSEMIDE 10 MG TABLET PO SCH (20:24)
[2019-07-18] MEDS: POTASSIUM CHLORIDE 10 MEQ SR TABLET PO SCH (20:24)
[2019-07-18] MEDS: MIRALAX *UNIT DOSE* 17GM PACKET PO SCH (20:25)
[2019-07-19] VITALS (17 sets, daily range): BP systolic 84–118; BP diastolic 48–58; O2SAT 90–98
[2019-07-19] MEDS: guaiFENesin/CODEINE SYRUP 5 ML UDC PO PRN ×3 (03:13→23:40)
[2019-07-19 05:39] LABS: BASO % 0.2 % (0.0-1.0); EOS % 0.1 % (0.0-3.0); HEMATOCRIT 28.2 % (42.0-52.0); LYMPH # 0.5 10^3/uL (1.5-5.0); LYMPH % 5.6 % (24.0-44.0); MEAN CORPUSCULAR HEMOGLOBIN 28.8 pg (27.0-33.0); MEAN CORPUSCULAR HGB CONC 31.9 g/dl (32.0-36.5); MEAN CORPUSCULAR VOLUME 90.4 fl (80.0-96.0); MONO # 1.5 10^3/uL (0.0-0.8); MONO % 17.9 % (0.0-5.0); NEUTROPHILS # 6.3 10^3/uL (1.5-8.5); NEUTROPHILS % 74.8 % (36.0-66.0); PLATELET COUNT, AUTOMATED 163 10^3/uL (150-450); RED BLOOD COUNT 3.12 10^6/uL (4.30-6.10); WHITE BLOOD COUNT 8.4 10^3/uL (4.0-10.0)
[2019-07-19 05:51] LABS: INR 1.12; PROTHROMBIN TIME 14.1 SECONDS (11.8-14.0)
[2019-07-19 05:52] LABS: PARTIAL THROMBOPLASTIN TIME 43.9 SECONDS (25.0-38.4)
[2019-07-19 05:54] LABS: D-DIMER QUANT 415.47 ng/ml (<500)
[2019-07-19 06:12] LABS: ALBUMIN 2.1 GM/DL (3.2-5.2); ALT/SGPT 13 U/L (12-78); BILIRUBIN,TOTAL 0.4 MG/DL (0.2-1.0); BLOOD UREA NITROGEN 26 MG/DL (7-18); CALCIUM LEVEL 8.1 MG/DL (8.8-10.2); CARBON DIOXIDE LEVEL 33 MEQ/L (21-32); CHLORIDE LEVEL 102 MEQ/L (98-107); CREATININE FOR GFR 1.67 MG/DL (0.70-1.30); FERRITIN 383 NG/ML (26-388); GLOMERULAR FILTRATION RATE 41.9 (>35); GLUCOSE, FASTING 126 MG/DL (70-100); LDH LACTATE DEHYDROGENASE 177 U/L (87-241); NT-PRO BNP 873 PG/ML (<450); POTASSIUM SERUM 4.3 MEQ/L (3.5-5.1); SODIUM LEVEL 140 MEQ/L (136-145); TRIGLYCERIDES LEVEL 108 MG/DL (<150)
[2019-07-19] MEDS: SYMBICORT 160/4.5MCG INHALER 6GM INH SCH ×2 (07:34→21:00)
--- NOTE | 2019-07-19 07:46 | ECGEPIP ---
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
--- NOTE | 2019-07-19 08:36 | REP ---
Clinical: Comparison: 07/18/2019, 07/16/2019, 03/31/2019. Findings: Mediastinum and cardiac silhouette are stable with mild cardiomegaly and pacemaker again noted. The lung celis demonstrate diffuse chronic interstitial changes similar to prior examination. Superimposed left lower lobe/retrocardiac atelectasis cannot definitively be excluded. No further obvious focal consolidation. No effusion or pneumothorax. Skeletal structures demonstrate age-related osteopenia and degenerative changes. Impression: Chronic stable changes similar to multiple prior examinations. Cannot exclude subtle left lower lobe/retrocardiac opacity. Electronically Signed by Abhilash Nieves MD 07/19/2019 08:29 A
[2019-07-19] MEDS: HYDROXYCHLOROQUINE 200 MG TAB PO SCH ×2 (08:46→19:33)
[2019-07-19] MEDS: OMEPRAZOLE 20 MG CAP PO SCH (08:46)
[2019-07-19] MEDS: predniSONE 5 MG TAB PO SCH (08:47)
[2019-07-19] MEDS: ACETAMINOPHEN TAB 650MG DOSE (2X325MG) PO PRN ×4 (08:48→23:40)
[2019-07-19] MEDS: atenoloL 25 MG TAB PO SCH ×2 (08:48→19:55)
[2019-07-19] MEDS: PROMETHAZINE INJ 25 MG/ML VIAL (J2550) IV PRN ×2 (08:48→23:44)
[2019-07-19] MEDS: MAGNESIUM CHLORIDE 64 MG TABCR (SLO MAG) PO SCH (08:49)
[2019-07-19] MEDS: ENOXAPARIN 30MG/0.3ML SYRINGE (J1650 PER 10MG) SC SCH ×2 (08:49→19:32)
[2019-07-19] MEDS: AMIODARONE 200 MG TAB (PACERONE) PO SCH (08:52)
--- NOTE | 2019-07-19 08:55 | ECGEPIP ---
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
[2019-07-19 09:23] LABS: TROPONIN I < 0.02 NG/ML (< 0.10)
[2019-07-19] MEDS ORDERED: FLUBLOK(EGG FREE)(QUAD)INFLUENZA VACC 0.5ML SYRINGE (90682)18YRS&OLDER IM SCH (09:30)
--- NOTE | 2019-07-19 09:56 | IPNPDOC ---
Subjective Date Seen The patient was seen on 07/19/19. Subjective Chief Complaint/HPI Patient is still complaining of cough and once he gets a coughing fit. He is unable to stop, but as per patient Robitussin-AC helps, he was also febrile 100.3 this morning General: Reports: Fatigue; Denies: ROS Unobtainable, Chills, Night Sweats, Malaise, Normal Appetite, Other Symptoms Constitutional: Reports: Fever Eyes: Denies: Pain, Vision change, Conjunctivae inflammation, Eyelid inflammation, Redness, Other ENT: Denies: Head Aches, Ear Pain, Dysphagia, Sinus Congestion, Post Nasal Drip, Sore Throat, Epistaxis, Other Symptoms Skin: Denies: Rash, Lesions, Jaundice, Bruising, Itching, Dry, Breakdown, Nail Changes, Other Pulmonary: Reports: Dyspnea, Cough Cardiovascular: Denies: Chest Pain, Palpitations, Orthopnea, Paroxysmal Noc. Dyspnea, Edema, Lt Headedness, Other Symptoms Gastrointestinal: Denies: Nausea, Vomiting, Abdominal Pain, Diarrhea, Constipa tion, Melena, Hematochezia, Other Symptoms Musculoskeletal: Denies: Neck Pain, Back Pain, Shoulder Pain, Arm Pain, Hand Pain, Leg Pain, Foot Pain, Joint Pain, Muscle Pain, Spasms, Other Symptoms Neurological: Denies: Weakness, Numbness, Incoordination, Change in speech, Confusion, Seizures, Other Symptoms Objective Physical Examination General Exam: Positive: Other (, patient is awake, alert 3, no cardiopulmonary distress) Eye Exam: Positive: PERRLA, Conjunctiva & lids normal, EOMI ENT Exam: Positive: Mucous membr. moist/pink Chest Exam: Positive: Rales (bilateral rales audible) Heart Exam: Positive: Rate Normal, Normal S1, Normal S2 Abdomen Exam: Positive: Normal bowel sounds, Soft, Tenderness (. No tenderness) Skin Exam: Positive: Nl turgor and temperature Assessment /Plan Problems (1) SARS-associated coronavirus infection Problem Text: Patient is positive Covid infection, admitted to ICU last night for further observation as his is also admitted with a similar infection. Patient has been started on all his home medication including prednisone Patient is still has a coughing fits, which she is unable to stop, but as per patient. Robitussin-AC helps with the frequency of coughing. Temperatures 100.3, respiratory rate of 23, heart rate 69, blood pressure 118/58 Patient repeat chest x-ray does not show any changes compared to old chest x-ray Patient's condition is status quo seems like it's not getting worse, but is not getting better either Patient has been started on hydrochloroquin as per orders Supportive care, discussed case with Dr. Simons while making rounds in ICU (2) Afib Status: Chronic Problem Text: Ventricular rate is under control Continue home meds (3) HTN (hypertension) Status: Chronic Problem Text: Patient's antihypertensive meds are on hold secondary to labile blood pressure (4) GERD (gastroesophageal reflux disease) Status: Chronic Problem Text: Continue home meds (5) COPD (chronic obstructive pulmonary disease) Status: Chronic Problem Text: Patient's COPD is compensated Continue nebulizer treatment as needed Continue by mouth prednisone as per home dosage Further recommendations as per pulmonary critical care Plan/VTE VTE Prophylaxis Ordered?: Yes VS, I&O, 24H, Fishbone Vital Signs/I&O Vital Signs Date Time Temp Pulse Resp B/P (MAP) Pulse Ox O2 Delivery O2 Flow Rate FiO2 07/19/19 08:48 69 84/48 07/19/19 04:00 2.0 07/19/19 04:00 100.3 20 91 Nasal Cannula I&O- Last 24 Hours up to 6 AM 07/19/19 06:00 Intake Total 1380 ml Output Total 900 ml Balance 480 ml Laboratory Data 24H LABS Laboratory Tests 2 07/18/19 17:52: Immature Granulocyte % (Auto) 1.2, Neutrophils (%) (Auto) 74.3H, Lymphocytes (%) (Auto) 5.2L, Monocytes (%) (Auto) 19.2H, Eosinophils (%) (Auto) 0.0, Basophils (%) (Auto) 0.1, Neutrophils # (Auto) 6.3, Lymphocytes # (Auto) 0.4L, Monocytes # (Auto) 1.6H, Eosinophils # (Auto) 0.0, Basophils # (Auto) 0.0, Nucleated Red Blood Cells % (auto) 0.0, Prothrombin Time 14.6H, Prothromb Time International Ratio 1.17, Activated Partial Thromboplast Time 41.3H, Fibrinogen 653H, D-Dimer, Quantitative < 270, Anion Gap 5L, Glomerular Filtration Rate 38.5, Calcium Level 8.5L, Ferritin 369, Total Bilirubin 0.4, Aspartate Amino Transf (AST/SGOT) 24, Alanine Aminotransferase (ALT/SGPT) 14, Alkaline Phosphatase 42L, Lactate De hydrogenase 181, C-Reactive Protein, Quantitative 21.20H, PW-Gya-T-Type Natriuretic Peptide 681H, Total Protein 5.0L, Albumin 2.2L, Albumin/Globulin Ratio 0.79L, Triglycerides Level 134 07/18/19 21:10: Troponin I < 0.02 07/19/19 05:10: Immature Granulocyte % (Auto) 1.4, Neutrophils (%) (Auto) 74.8H, Lymphocytes (%) (Auto) 5.6L, Monocytes (%) (Auto) 17.9H, Eosinophils (%) (Auto) 0.1, Basophils (%) (Auto) 0.2, Neutrophils # (Auto) 6.3, Lymphocytes # (Auto) 0.5L, Monocytes # (Auto) 1.5H, Eosinophils # (Auto) 0.0, Basophils # (Auto) 0.0, Nucleated Red Blood Cells % (auto) 0.0, Prothrombin Time 14.1H, Prothromb Time International Ratio 1.12, Activated Partial Thromboplast Time 43.9H, Fibrinogen 654H, D-Dimer, Quantitative 415.47, Anion Gap 5L, Glomerular Filtration Rate 41.9, Calcium Level 8.1L, Ferritin 383, Total Bilirubin 0.4, Aspartate Amino Transf (AST/SGOT) 23, Alanine Aminotransferase (ALT/SGPT) 13, Alkaline Phosphatase 44L, Lactate Dehydrogenase 177, C-Reactive Protein, Quantitative 21.10H, PK-Vdx-P-Type Natriuretic Peptide 873H, Total Protein 5.0L, Albumin 2.1L, Albumin/Globulin Ratio 0.72L, Triglycerides Level 108, Troponin I < 0.02 CBC/BMP Laboratory Tests 07/18/19 17:52 07/19/19 05:10 Microbiology Microbiology 07/16/19 Blood Culture - Preliminary, Resulted No Growth after 48 hours. All Specime... 07/16/19 Blood Culture - Preliminary, Resulted No Growth after 48 hours. All Specime... TRENT GREER MD Jul 19, 2019 09:56
[2019-07-19 19:04] LABS: BASO % 0.2 % (0.0-1.0); EOS % 0.1 % (0.0-3.0); HEMATOCRIT 31.4 % (42.0-52.0); LYMPH # 0.5 10^3/uL (1.5-5.0); MEAN CORPUSCULAR HEMOGLOBIN 29.5 pg (27.0-33.0); MEAN CORPUSCULAR HGB CONC 31.8 g/dl (32.0-36.5); MEAN CORPUSCULAR VOLUME 92.6 fl (80.0-96.0); MONO # 1.4 10^3/uL (0.0-0.8); MONO % 14.7 % (0.0-5.0); NEUTROPHILS # 7.5 10^3/uL (1.5-8.5); NEUTROPHILS % 78.5 % (36.0-66.0); PLATELET COUNT, AUTOMATED 173 10^3/uL (150-450); RED BLOOD COUNT 3.39 10^6/uL (4.30-6.10); WHITE BLOOD COUNT 9.5 10^3/uL (4.0-10.0)
[2019-07-19 19:16] LABS: INR 1.08; PROTHROMBIN TIME 13.7 SECONDS (11.8-14.0)
[2019-07-19 19:17] LABS: FIBRINOGEN 722 MG/DL (221-452); PARTIAL THROMBOPLASTIN TIME 42.4 SECONDS (25.0-38.4)
[2019-07-19] MEDS: MIRALAX *UNIT DOSE* 17GM PACKET PO SCH (19:32)
[2019-07-19] MEDS: POTASSIUM CHLORIDE 10 MEQ SR TABLET PO SCH (19:33)
[2019-07-19] MEDS: TAMSULOSIN 0.4 MG CAP PO SCH (19:33)
[2019-07-19] MEDS: TORSEMIDE 10 MG TABLET PO SCH (19:33)
[2019-07-19] MEDS: predniSONE 2.5 MG TAB PO SCH (19:33)
[2019-07-19] MEDS: rOPINIRole 0.25 MG TAB(REQUIP) PO SCH (19:33)
[2019-07-19 19:47] LABS: D-DIMER QUANT < 270 ng/ml (<500)
[2019-07-19 19:50] LABS: ALBUMIN 2.3 GM/DL (3.2-5.2); BILIRUBIN,TOTAL 0.3 MG/DL (0.2-1.0); C REACTIVE PROTEIN QUANTITATIV 25.2 MG/DL (0.00-0.30); CALCIUM LEVEL 8.4 MG/DL (8.8-10.2); CREATININE FOR GFR 1.8 MG/DL (0.70-1.30); GLOMERULAR FILTRATION RATE 38.5 (>35); POTASSIUM SERUM 4.5 MEQ/L (3.5-5.1); TOTAL PROTEIN 5.6 GM/DL (6.4-8.2)
[2019-07-19] MEDS: FINASTERIDE 5 MG TAB PO SCH (19:55)
[2019-07-20] VITALS: BP 110/55
[2019-07-20 04:00] VITALS: BP 124/60
[2019-07-20] MEDS: guaiFENesin/CODEINE SYRUP 5 ML UDC PO PRN (04:37)
[2019-07-20] MEDS: ACETAMINOPHEN TAB 650MG DOSE (2X325MG) PO PRN ×3 (04:37→13:06)
[2019-07-20] MEDS: PROMETHAZINE INJ 25 MG/ML VIAL (J2550) IV PRN ×3 (04:58→13:06)
[2019-07-20 05:22] LABS: BASO % 0.1 % (0.0-1.0); EOS % 0.1 % (0.0-3.0); HEMATOCRIT 29.6 % (42.0-52.0); HEMOGLOBIN 9.4 g/dl (13.5-17.5); LYMPH # 0.6 10^3/uL (1.5-5.0); LYMPH % 7.1 % (24.0-44.0); MEAN CORPUSCULAR HEMOGLOBIN 29.2 pg (27.0-33.0); MEAN CORPUSCULAR HGB CONC 31.8 g/dl (32.0-36.5); MEAN CORPUSCULAR VOLUME 91.9 fl (80.0-96.0); MONO # 1.2 10^3/uL (0.0-0.8); MONO % 15.1 % (0.0-5.0); NEUTROPHILS # 6.2 10^3/uL (1.5-8.5); NEUTROPHILS % 75.5 % (36.0-66.0); PLATELET COUNT, AUTOMATED 186 10^3/uL (150-450); RED BLOOD COUNT 3.22 10^6/uL (4.30-6.10); WHITE BLOOD COUNT 8.2 10^3/uL (4.0-10.0)
[2019-07-20 05:32] LABS: INR 1.06; PROTHROMBIN TIME 13.5 SECONDS (11.8-14.0)
[2019-07-20 05:33] LABS: PARTIAL THROMBOPLASTIN TIME 45.3 SECONDS (25.0-38.4)
[2019-07-20 05:36] LABS: D-DIMER QUANT 390.73 ng/ml (<500)
[2019-07-20 05:46] LABS: ALBUMIN 2.2 GM/DL (3.2-5.2); ALT/SGPT 21 U/L (12-78); BILIRUBIN,TOTAL 0.4 MG/DL (0.2-1.0); BLOOD UREA NITROGEN 27 MG/DL (7-18); CALCIUM LEVEL 8.2 MG/DL (8.8-10.2); CARBON DIOXIDE LEVEL 35 MEQ/L (21-32); CHLORIDE LEVEL 102 MEQ/L (98-107); CREATININE FOR GFR 1.72 MG/DL (0.70-1.30); FERRITIN 448 NG/ML (26-388); GLOMERULAR FILTRATION RATE 40.5 (>35); GLUCOSE, FASTING 103 MG/DL (70-100); LDH LACTATE DEHYDROGENASE 206 U/L (87-241); NT-PRO BNP 1102 PG/ML (<450); POTASSIUM SERUM 4.5 MEQ/L (3.5-5.1); SODIUM LEVEL 141 MEQ/L (136-145); TOTAL PROTEIN 5.4 GM/DL (6.4-8.2); TRIGLYCERIDES LEVEL 131 MG/DL (<150); TROPONIN I < 0.02 NG/ML (< 0.10)
[2019-07-20 08:00] VITALS: BP 107/55
[2019-07-20] MEDS: SYMBICORT 160/4.5MCG INHALER 6GM INH SCH ×2 (08:43→19:15)
[2019-07-20] MEDS: predniSONE 5 MG TAB PO SCH (08:45)
[2019-07-20] MEDS: AMIODARONE 200 MG TAB (PACERONE) PO SCH (08:45)
[2019-07-20] MEDS: OMEPRAZOLE 20 MG CAP PO SCH (08:45)
[2019-07-20] MEDS: ENOXAPARIN 30MG/0.3ML SYRINGE (J1650 PER 10MG) SC SCH ×2 (08:46→20:35)
[2019-07-20] MEDS: atenoloL 25 MG TAB PO SCH ×3 (08:46→20:34)
[2019-07-20] MEDS: HYDROXYCHLOROQUINE 200 MG TAB PO SCH ×2 (08:46→20:35)
[2019-07-20] MEDS: MAGNESIUM CHLORIDE 64 MG TABCR (SLO MAG) PO SCH (08:46)
[2019-07-20 12:00] VITALS: BP 116/56
[2019-07-20] MEDS: COMBIVENT RESPIMAT 100-20MCG INHALER 4GM INH SCH ×2 (14:00→19:14)
[2019-07-20] MEDS ORDERED: SLF 3 ML SYR IV PRN (15:00)
[2019-07-20 16:00] VITALS: BP 105/54
--- NOTE | 2019-07-20 18:00 | IPNPDOC ---
Date Seen The patient was seen on 07/20/19. Progress Note SUBJECTIVE: SOB worse with movement, crackles with decreased breath sounds. Complains of chronic lower ext pain. Denies chest pain, n/v/d. OBJECTIVE PHYSICAL EXAMINATION: VS: pLease see below CONSTITUTIONAL: lethargic, awake and oriented x 3 EYES: PERRLA, EOM intact HENT, MOUTH: Normocephalic, atraumatic, moist mucous membranes, NECK: SUPPLE, no JVD, no lymphadenopathy, no carotid bruit CV: S1S2 normal, no murmurs/rubs/gallops RESPIRATORY: Decreased breath sounds bilaterally, mild crackles in bases. no rales/rhonchi GI: BS positive in 4 quadrants, soft, nontender, nondistended, no rebound or guarding, no organomegaly : Deferred MUSCULOSKELETAL: Normal ROM. No cyanosis, clubbing, swelling, joint deformity. Pain to touch of b/l lower ext-chronic. Pulses present in all ext INTEGUMENTARY: Intact, no rashes, no lesions, no erythema NEUROLOGIC: Cranial Nerves II-XII are intact, no focal deficits PSYCHIATRIC: Mood and affect are normal LABORATORY DATA, IMAGING STUDIES, MICROBIOLOGY: Please see below. ASSESSMENT AND PLAN: This is a 83 y/o M admitted for SARS associated Coronavirus infection. PLAN: (1) SARS-associated coronavirus infection. Currently remains on 2 L NC with fibrinogen, CRP, LDH improved. Afebrile since 07/19/19 AM. C/w scheduled labs, hydroxychloroquine, supportive care. Dr. Tabares consulted. (2) Afib Status: Chronic, stable. Problem Text: Ventricular rate is under control Continue home meds (3) HTN (hypertension) Status: Chronic Problem Text: Patient's antihypertensive meds are on hold secondary to labile blood pressure (4) GERD (gastroesophageal reflux disease) Status: Chronic Problem Text: Continue home meds (5) COPD (chronic obstructive pulmonary disease) Status: Chronic Problem Text: STarted ATC MDI. BNP minimally elevated. Continue nebulizer treatment as needed Continue by mouth prednisone as per home dosage Further recommendations as per pulmonary critical care (6) CKD stage III. Cr near baseline. Daily labs. (7) DVT px. Enoxaparin SC Q12 hrs. DISPOSITION: Currently admitted under inpatient status. Plan is discharge home when medically improved. VS, I&O, 24H, Fishbone Vital Signs/I&O Vital Signs Date Time Temp Pulse Resp B/P (MAP) Pulse Ox O2 Delivery O2 Flow Rate FiO2 07/20/19 16:00 99.7 69 20 105/54 (71) 94 Nasal Cannula 2.0 I&O- Last 24 Hours up to 6 AM 07/20/19 06:00 Intake Total 1390 ml Output Total 1225 ml Balance 165 ml Laboratory Data 24H LABS Laboratory Tests 2 07/19/19 18:44: Immature Granulocyte % (Auto) 1.5, Neutrophils (%) (Auto) 78.5H, Lymphocytes (%) (Auto) 5.0L, Monocytes (%) (Auto) 14.7H, Eosinophils (%) (Auto) 0.1, Basophils (%) (Auto) 0.2, Neutrophils # (Auto) 7.5, Lymphocytes # (Auto) 0.5L, Monocytes # (Auto) 1.4H, Eosinophils # (Auto) 0.0, Basophils # (Auto) 0.0, Nucleated Red Blood Cells % (auto) 0.0, Prothrombin Time 13.7, Prothromb Time International Ratio 1.08, Activated Partial Thromboplast Time 42.4H, Fibrinogen 722H, D-Dimer, Quantitative < 270, Anion Gap 5L, Glomerular Filtration Rate 38.5, Calcium Level 8.4L, Ferritin 435H, Total Bilirubin 0.3, Aspartate Amino Transf (AST/SGOT) 31, Alanine Aminotransferase (ALT/SGPT) 19, Alkaline Phosphatase 57, Lactate Dehydrogenase 291H, Troponin I < 0.02, C-Reactive Protein, Quantitative 25.20H, PL-Noh-I-Type Natriuretic Peptide 986H, Total Protein 5.6L, Albumin 2.3L, Albumin/Globulin Ratio 0.70L, Triglycerides Level 154H 07/20/19 04:36: Immature Granulocyte % (Auto) 2.1, Neutrophils (%) (Auto) 75.5H, Lymphocytes (%) (Auto) 7.1L, Monocytes (%) (Auto) 15.1H, Eosinophils (%) (Auto) 0.1, Basophils (%) (Auto) 0.1, Neutrophils # (Auto) 6.2, Lymphocytes # (Auto) 0.6L, Monocytes # (Auto) 1.2H, Eosinophils # (Auto) 0.0, Basophils # (Auto) 0.0, Nucleated Red Blood Cells % (auto) 0.0, Prothrombin Time 13.5, Prothromb Time International R atio 1.06, Activated Partial Thromboplast Time 45.3H, Fibrinogen 711H, D-Dimer, Quantitative 390.73, Anion Gap 4L, Glomerular Filtration Rate 40.5, Calcium Level 8.2L, Ferritin 448H, Total Bilirubin 0.4, Aspartate Amino Transf (AST/SGOT) 30, Alanine Aminotransferase (ALT/SGPT) 21, Alkaline Phosphatase 55, Lactate Dehydrogenase 206, Troponin I < 0.02, C-Reactive Protein, Quantitative 22.70H, PC-Dhy-O-Type Natriuretic Peptide 1102H, Total Protein 5.4L, Albumin 2.2L, Albumin/Globulin Ratio 0.69L, Triglycerides Level 131 CBC/BMP Laboratory Tests 07/19/19 18:44 07/20/19 04:36 Microbiology Microbiology 07/16/19 Blood Culture - Preliminary, Resulted No Growth after 72 hours. All specime... 07/16/19 Blood Culture - Preliminary, Resulted No Growth after 72 hours. All specime... Current Medications Current Medications Medications (Trade) Dose Ordered Sig/Sasha Route PRN Reason Start Time Stop Time Status Last Admin Dose Admin Acetaminophen (Tylenol Tab) 650 mg Q4HP PRN PO PAIN OR FEVER 07/16/19 21:30 07/20/19 13:06 Albuterol Sulfate (Proventil, Ventolin Hfa) 2 puff Q2HP PRN INH SHORTNESS OF BREATH 07/20/19 12:15 Albuterol/ Ipratropium (Combivent Respimat 100-20mcg) 1 puff RQ6H INH 07/20/19 14:00 Amiodarone HCl (Pacerone, Cordarone) 200 mg DAILY PO 07/17/19 09:00 07/20/19 08:45 Atenolol (Tenormin) 25 mg BID PO 07/16/19 21:00 07/18/19 20:26 Budesonide/ Formoterol Fumarate (Symbicort 160/ 4.5mcg) 2 puff RBID INH 07/16/19 20:00 07/20/19 08:43 Codeine Phosphate/ Guaifenesin (Robitussin Ac) 5 ml Q4HP PRN PO COUGH 07/18/19 08:45 07/20/19 04:37 Diltiazem HCl (Cardizem) 120 mg DAILY PO 07/17/19 09:00 07/17/19 08:26 Enoxaparin Sodium (Lovenox) 30 mg Q12H SC 07/16/19 21:00 07/16/19 22:11 DC Enoxaparin Sodium (Lovenox) 30 mg Q12H SC 07/16/19 21:00 07/20/19 08:46 Finasteride (Proscar) 5 mg QHS PO 07/16/19 21:00 07/19/19 19:55 Furosemide (LASIX injection) 40 mg DAILY IV 07/21/19 09:00 Home Med (Med Rec Complete!) ASDIRECTED XX 07/16/19 21:45 07/16/19 21:43 DC Hydroxychloroquine Sulfate (Plaquenil) 200 mg BID PO 07/19/19 09:00 07/22/19 21:01 07/20/19 08:46 Hydroxychloroquine Sulfate (Plaquenil) 400 mg Q12H PO 07/18/19 09:00 07/18/19 21:01 DC 07/18/19 20:23 Influenza Virus Vaccine (Flublok Quad(Egg-Free)18y&Older Influenza) 0.5 ml ASDIRECTED IM 07/19/19 09:30 Magnesium Chloride (Slow-Mag) 64 mg DAILY PO 07/17/19 09:00 07/20/19 08:46 Omeprazole (PriLOSEC) 40 mg DAILY PO 07/17/19 09:00 07/20/19 08:45 Ondansetron HCl (ZOFRAN INJection) 4 mg Q4HP PRN IV NAUSEA OR VOMITING 07/17/19 01:00 07/16/19 21:29 DC Polyethylene Glycol (Miralax) 1 pkt DAILY@2100 PO 07/17/19 21:00 07/19/19 19:32 Potassium Chloride (Micro-K Extencaps) 10 meq QPM PO 07/16/19 21:00 07/19/19 19:33 Prednisone (Deltasone) 2.5 mg QHS PO 07/17/19 21:00 07/19/19 19:33 Prednisone (Deltasone) 5 mg QAM PO 07/17/19 09:00 07/20/19 08:45 Promethazine HCl (PHENERGAN INJection) 12.5 mg Q4HP PRN IV NAUSEA 07/16/19 21:30 07/20/19 13:06 Ropinirole HCl (Requip) 0.25 mg QHS PO 07/17/19 21:00 07/19/19 19:33 Sodium Chloride 500 ml @ 100 mls/hr Q5H IV 07/17/19 04:03 07/17/19 08:29 DC 07/17/19 05:05 Sodium Chloride 1,000 ml @ 100 mls/hr Q10H IV 07/17/19 03:30 07/17/19 04:03 DC Sodium Chloride (Saline Lock Flush) 2 ml ASDIRECTED PRN IV SEE LABEL COMMENTS 07/20/19 15:00 Sodium Chloride (Saline Lock Flush) 2 ml SLF IV 07/20/19 22:00 Tamsulosin HCl (Flomax) 0.4 mg QHS PO 07/17/19 21:00 07/19/19 19:33 Torsemide (Demadex) 10 mg QHS PO 07/16/19 21:00 07/20/19 12:09 DC 07/19/19 19:33 Tramadol HCl (Ultram) 50 mg TID PRN PO PAIN 07/16/19 23:00 07/18/19 05:11 Allergies Coded Allergies: fluconazole (Verified Allergy, Unknown, UNKNOWN REACTION, 03/31/19) fluticasone (Verified Allergy, Unknown, UNKNOWN REACTION, 03/31/19) metformin (Verified Allergy, Unknown, UNKNOWN REACTION, 03/31/19) petrolatum,white (Verified Allergy, Unknown, ITCH/RASH, 03/31/19) azithromycin (Verified Adverse Reaction, Unknown, LOWERS BP, 03/31/19) clarithromycin (Verified Adverse Reaction, Unknown, LOWERS BP, 03/31/19) procaine (Verified Adverse Reaction, Unknown, DIZZINESS, 03/31/19) Current Medications Current Medications Medications (Trade) Dose Ordered Sig/Sasha Route PRN Reason Start Time Stop Time Status Last Admin Dose Admin Acetaminophen (Tylenol Tab) 650 mg Q4HP PRN PO PAIN OR FEVER 07/16/19 21:30 07/20/19 13:06 Albuterol Sulfate (Proventil, Ventolin Hfa) 2 puff Q2HP PRN INH SHORTNESS OF BREATH 07/20/19 12:15 Albuterol/ Ipratropium (Combivent Respimat 100-20mcg) 1 puff RQ6H INH 07/20/19 14:00 Amiodarone HCl (Pacerone, Cordarone) 200 mg DAILY PO 07/17/19 09:00 07/20/19 08:45 Atenolol (Tenormin) 25 mg BID PO 07/16/19 21:00 07/18/19 20:26 Budesonide/ Formoterol Fumarate (Symbicort 160/ 4.5mcg) 2 puff RBID INH 07/16/19 20:00 07/20/19 08:43 Codeine Phosphate/ Guaifenesin (Robitussin Ac) 5 ml Q4HP PRN PO COUGH 07/18/19 08:45 07/20/19 04:37 Diltiazem HCl (Cardizem) 120 mg DAILY PO 07/17/19 09:00 07/17/19 08:26 Enoxaparin Sodium (Lovenox) 30 mg Q12H SC 07/16/19 21:00 07/16/19 22:11 DC Enoxaparin Sodium (Lovenox) 30 mg Q12H SC 07/16/19 21:00 07/20/19 08:46 Finasteride (Proscar) 5 mg QHS PO 07/16/19 21:00 07/19/19 19:55 Furosemide (LASIX injection) 40 mg DAILY IV 07/21/19 09:00 Home Med (Med Rec Complete!) ASDIRECTED XX 07/16/19 21:45 07/16/19 21:43 DC Hydroxychloroquine Sulfate (Plaquenil) 200 mg BID PO 07/19/19 09:00 07/22/19 21:01 07/20/19 08:46 Hydroxychloroquine Sulfate (Plaquenil) 400 mg Q12H PO 07/18/19 09:00 07/18/19 21:01 DC 07/18/19 20:23 Influenza Virus Vaccine (Flublok Quad(Egg-Free)18y&Older Influenza) 0.5 ml ASDIRECTED IM 07/19/19 09:30 Magnesium Chloride (Slow-Mag) 64 mg DAILY PO 07/17/19 09:00 07/20/19 08:46 Omeprazole (PriLOSEC) 40 mg DAILY PO 07/17/19 09:00 07/20/19 08:45 Ondansetron HCl (ZOFRAN INJection) 4 mg Q4HP PRN IV NAUSEA OR VOMITING 07/17/19 01:00 07/16/19 21:29 DC Polyethylene Glycol (Miralax) 1 pkt DAILY@2100 PO 07/17/19 21:00 07/19/19 19:32 Potassium Chloride (Micro-K Extencaps) 10 meq QPM PO 07/16/19 21:00 07/19/19 19:33 Prednisone (Deltasone) 2.5 mg QHS PO 07/17/19 21:00 07/19/19 19:33 Prednisone (Deltasone) 5 mg QAM PO 07/17/19 09:00 07/20/19 08:45 Promethazine HCl (PHENERGAN INJection) 12.5 mg Q4HP PRN IV NAUSEA 07/16/19 21:30 07/20/19 13:06 Ropinirole HCl (Requip) 0.25 mg QHS PO 07/17/19 21:00 07/19/19 19:33 Sodium Chloride 500 ml @ 100 mls/hr Q5H IV 07/17/19 04:03 07/17/19 08:29 DC 07/17/19 05:05 Sodium Chloride 1,000 ml @ 100 mls/hr Q10H IV 07/17/19 03:30 07/17/19 04:03 DC Sodium Chloride (Saline Lock Flush) 2 ml ASDIRECTED PRN IV SEE LABEL COMMENTS 07/20/19 15:00 Sodium Chloride (Saline Lock Flush) 2 ml SLF IV 07/20/19 22:00 Tamsulosin HCl (Flomax) 0.4 mg QHS PO 07/17/19 21:00 07/19/19 19:33 Torsemide (Demadex) 10 mg QHS PO 07/16/19 21:00 07/20/19 12:09 DC 07/19/19 19:33 Tramadol HCl (Ultram) 50 mg TID PRN PO PAIN 07/16/19 23:00 07/18/19 05:11 Clarice Rodriguez MD Jul 20, 2019 18:00
[2019-07-20 18:05] LABS: BASO % 0.3 % (0.0-1.0); EOS % 0.1 % (0.0-3.0); HEMATOCRIT 29.6 % (42.0-52.0); HEMOGLOBIN 9.3 g/dl (13.5-17.5); LYMPH # 0.7 10^3/uL (1.5-5.0); LYMPH % 6.9 % (24.0-44.0); MEAN CORPUSCULAR HEMOGLOBIN 28.8 pg (27.0-33.0); MEAN CORPUSCULAR HGB CONC 31.4 g/dl (32.0-36.5); MEAN CORPUSCULAR VOLUME 91.6 fl (80.0-96.0); MONO # 1.7 10^3/uL (0.0-0.8); MONO % 16.8 % (0.0-5.0); NEUTROPHILS # 7.4 10^3/uL (1.5-8.5); NEUTROPHILS % 73.2 % (36.0-66.0); PLATELET COUNT, AUTOMATED 211 10^3/uL (150-450); RED BLOOD COUNT 3.23 10^6/uL (4.30-6.10); WHITE BLOOD COUNT 10.1 10^3/uL (4.0-10.0)
[2019-07-20 18:18] LABS: INR 1.08; PROTHROMBIN TIME 13.7 SECONDS (11.8-14.0)
[2019-07-20 18:20] LABS: PARTIAL THROMBOPLASTIN TIME 37.4 SECONDS (25.0-38.4)
[2019-07-20 18:22] LABS: D-DIMER QUANT 483.85 ng/ml (<500)
[2019-07-20 18:45] LABS: ALBUMIN 2.3 GM/DL (3.2-5.2); ALT/SGPT 22 U/L (12-78); BILIRUBIN,TOTAL 0.4 MG/DL (0.2-1.0); BLOOD UREA NITROGEN 30 MG/DL (7-18); CALCIUM LEVEL 8.7 MG/DL (8.8-10.2); CARBON DIOXIDE LEVEL 34 MEQ/L (21-32); CHLORIDE LEVEL 102 MEQ/L (98-107); CREATININE FOR GFR 1.73 MG/DL (0.70-1.30); FERRITIN 464 NG/ML (26-388); GLOMERULAR FILTRATION RATE 40.3 (>35); GLUCOSE, FASTING 99 MG/DL (70-100); LDH LACTATE DEHYDROGENASE 247 U/L (87-241); NT-PRO BNP 741 PG/ML (<450); POTASSIUM SERUM 4.5 MEQ/L (3.5-5.1); SODIUM LEVEL 140 MEQ/L (136-145); TOTAL PROTEIN 5.5 GM/DL (6.4-8.2); TRIGLYCERIDES LEVEL 173 MG/DL (<150); TROPONIN I < 0.02 NG/ML (< 0.10)
[2019-07-20 20:00] VITALS: BP 129/54
[2019-07-20] MEDS: FINASTERIDE 5 MG TAB PO SCH (20:33)
[2019-07-20] MEDS: predniSONE 2.5 MG TAB PO SCH (20:33)
[2019-07-20] MEDS: rOPINIRole 0.25 MG TAB(REQUIP) PO SCH (20:34)
[2019-07-20] MEDS: traMADol 50 MG TAB PO PRN (20:34)
[2019-07-20] MEDS: POTASSIUM CHLORIDE 10 MEQ SR TABLET PO SCH (20:34)
[2019-07-20] MEDS: TAMSULOSIN 0.4 MG CAP PO SCH (20:34)
[2019-07-20] MEDS: MIRALAX *UNIT DOSE* 17GM PACKET PO SCH (20:35)
[2019-07-20] MEDS: SLF 3 ML SYR IV SCH (20:35)
[2019-07-21] VITALS (9 sets, daily range): BP systolic 92–126; BP diastolic 54–60; O2SAT 85–96
--- NOTE | 2019-07-21 00:57 | ECGEPIP ---
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
[2019-07-21] MEDS: COMBIVENT RESPIMAT 100-20MCG INHALER 4GM INH SCH ×4 (02:00→19:26)
[2019-07-21] MEDS: PROMETHAZINE INJ 25 MG/ML VIAL (J2550) IV PRN (05:06)
[2019-07-21] MEDS: SLF 3 ML SYR IV SCH ×3 (05:07→22:41)
[2019-07-21] MEDS: ACETAMINOPHEN TAB 650MG DOSE (2X325MG) PO PRN (05:07)
[2019-07-21 05:30] LABS: BASO % 0.1 % (0.0-1.0); EOS % 0.1 % (0.0-3.0); HEMATOCRIT 27.7 % (42.0-52.0); HEMOGLOBIN 8.8 g/dl (13.5-17.5); LYMPH # 0.6 10^3/uL (1.5-5.0); LYMPH % 8.8 % (24.0-44.0); MEAN CORPUSCULAR HEMOGLOBIN 28.8 pg (27.0-33.0); MEAN CORPUSCULAR HGB CONC 31.8 g/dl (32.0-36.5); MEAN CORPUSCULAR VOLUME 90.5 fl (80.0-96.0); MONO # 1.3 10^3/uL (0.0-0.8); MONO % 18.1 % (0.0-5.0); NEUTROPHILS # 4.9 10^3/uL (1.5-8.5); PLATELET COUNT, AUTOMATED 205 10^3/uL (150-450); RED BLOOD COUNT 3.06 10^6/uL (4.30-6.10); WHITE BLOOD COUNT 7.2 10^3/uL (4.0-10.0)
[2019-07-21 05:43] LABS: INR 1.12; PROTHROMBIN TIME 14.1 SECONDS (11.8-14.0)
[2019-07-21 05:44] LABS: PARTIAL THROMBOPLASTIN TIME 43.9 SECONDS (25.0-38.4)
[2019-07-21 05:46] LABS: D-DIMER QUANT 405.6 ng/ml (<500)
[2019-07-21 05:55] LABS: ALBUMIN 2.1 GM/DL (3.2-5.2); ALT/SGPT 19 U/L (12-78); BILIRUBIN,TOTAL 0.4 MG/DL (0.2-1.0); BLOOD UREA NITROGEN 29 MG/DL (7-18); CALCIUM LEVEL 8.3 MG/DL (8.8-10.2); CARBON DIOXIDE LEVEL 33 MEQ/L (21-32); CHLORIDE LEVEL 102 MEQ/L (98-107); CREATININE FOR GFR 1.51 MG/DL (0.70-1.30); FERRITIN 428 NG/ML (26-388); GLOMERULAR FILTRATION RATE 47.1 (>35); GLUCOSE, FASTING 93 MG/DL (70-100); LDH LACTATE DEHYDROGENASE 217 U/L (87-241); NT-PRO BNP 681 PG/ML (<450); POTASSIUM SERUM 4.4 MEQ/L (3.5-5.1); SODIUM LEVEL 141 MEQ/L (136-145); TOTAL PROTEIN 5.1 GM/DL (6.4-8.2); TRIGLYCERIDES LEVEL 167 MG/DL (<150); TROPONIN I < 0.02 NG/ML (< 0.10)
[2019-07-21] MEDS: guaiFENesin/CODEINE SYRUP 5 ML UDC PO PRN ×3 (06:04→17:13)
[2019-07-21] MEDS: predniSONE 5 MG TAB PO SCH (08:14)
[2019-07-21] MEDS: MAGNESIUM CHLORIDE 64 MG TABCR (SLO MAG) PO SCH (08:14)
[2019-07-21] MEDS: OMEPRAZOLE 20 MG CAP PO SCH (08:14)
[2019-07-21] MEDS: FUROSEMIDE 40MG/4ML VIAL (J1940) IV SCH (08:15)
[2019-07-21] MEDS: HYDROXYCHLOROQUINE 200 MG TAB PO SCH ×2 (08:15→20:26)
[2019-07-21] MEDS: AMIODARONE 200 MG TAB (PACERONE) PO SCH (08:15)
[2019-07-21] MEDS: ENOXAPARIN 30MG/0.3ML SYRINGE (J1650 PER 10MG) SC SCH ×2 (08:15→20:24)
[2019-07-21] MEDS: atenoloL 25 MG TAB PO SCH ×2 (09:00→21:00)
[2019-07-21] MEDS: SYMBICORT 160/4.5MCG INHALER 6GM INH SCH ×2 (09:18→19:27)
[2019-07-21] MEDS ORDERED: ONDANSETRON 4MG/2ML VIAL IV ONE (09:30)
[2019-07-21] MEDS: ALBUTEROL 90 MCG/ACT 8GM HFA INHALER INH PRN ×2 (11:23→16:56)
[2019-07-21 12:00] LABS: MAGNESIUM LEVEL 2.3 MG/DL (1.8-2.4)
[2019-07-21] MEDS: PROMETHAZINE 25 MG TAB PO PRN (16:56)
[2019-07-21 18:15] LABS: BASO % 0.4 % (0.0-1.0); EOS % 0.1 % (0.0-3.0); HEMATOCRIT 29.1 % (42.0-52.0); HEMOGLOBIN 9.3 g/dl (13.5-17.5); LYMPH # 0.7 10^3/uL (1.5-5.0); LYMPH % 8.3 % (24.0-44.0); MEAN CORPUSCULAR HEMOGLOBIN 28.9 pg (27.0-33.0); MEAN CORPUSCULAR VOLUME 90.4 fl (80.0-96.0); MONO # 1.4 10^3/uL (0.0-0.8); MONO % 17.2 % (0.0-5.0); NEUTROPHILS # 5.6 10^3/uL (1.5-8.5); NEUTROPHILS % 69.6 % (36.0-66.0); PLATELET COUNT, AUTOMATED 226 10^3/uL (150-450); RED BLOOD COUNT 3.22 10^6/uL (4.30-6.10)
[2019-07-21 18:26] LABS: INR 1.11; PROTHROMBIN TIME 14.1 SECONDS (11.8-14.0)
[2019-07-21 18:27] LABS: PARTIAL THROMBOPLASTIN TIME 39.7 SECONDS (25.0-38.4)
[2019-07-21 18:29] LABS: D-DIMER QUANT 380.78 ng/ml (<500)
[2019-07-21 18:45] LABS: ALBUMIN 2.1 GM/DL (3.2-5.2); ALT/SGPT 20 U/L (12-78); BILIRUBIN,TOTAL 0.4 MG/DL (0.2-1.0); BLOOD UREA NITROGEN 34 MG/DL (7-18); CALCIUM LEVEL 8.6 MG/DL (8.8-10.2); CARBON DIOXIDE LEVEL 33 MEQ/L (21-32); CHLORIDE LEVEL 100 MEQ/L (98-107); CREATININE FOR GFR 1.65 MG/DL (0.70-1.30); FERRITIN 454 NG/ML (26-388); GLOMERULAR FILTRATION RATE 42.5 (>35); GLUCOSE, FASTING 108 MG/DL (70-100); LDH LACTATE DEHYDROGENASE 242 U/L (87-241); NT-PRO BNP 766 PG/ML (<450); POTASSIUM SERUM 4.1 MEQ/L (3.5-5.1); SODIUM LEVEL 139 MEQ/L (136-145); TOTAL PROTEIN 5.4 GM/DL (6.4-8.2); TRIGLYCERIDES LEVEL 208 MG/DL (<150); TROPONIN I < 0.02 NG/ML (< 0.10)
--- NOTE | 2019-07-21 19:41 | IPNPDOC ---
Date Seen The patient was seen on 07/21/19. Progress Note SUBJECTIVE: SOB worsened after coughing fit, O2 dropped to mid-80's. O2 improved slightly with albuterol treatments and rest. Currently on 3 L NC, decreased from 5 L NC saturating at 92%. Crackles decreased, BNP improved. Low BP mid day, improved later. Depression screen done and neg. Nauseous so gave 1x dose zofran. Afebrile for >24 hrs. Denies chest pain, diarrhea but remains lethargic. PT held off today due to SOB. OBJECTIVE PHYSICAL EXAMINATION: VS: pLease see below CONSTITUTIONAL: awake and oriented x 3, lethargic EYES: PERRLA, EOM intact HENT, MOUTH: Normocephalic, atraumatic, moist mucous membranes, NECK: SUPPLE, no JVD, no lymphadenopathy, no carotid bruit CV: S1S2 normal, no murmurs/rubs/gallops RESPIRATORY: Decreased breath sounds bilaterally, mild crackles in bases. no rales/rhonchi GI: BS positive in 4 quadrants, soft, nontender, nondistended, no rebound or guarding, no organomegaly : Deferred MUSCULOSKELETAL: Normal ROM. No cyanosis, clubbing, swelling, joint deformity. Pain to touch of b/l lower ext-chronic. Pulses present in all ext INTEGUMENTARY: Intact, no rashes, no lesions, no erythema NEUROLOGIC: Cranial Nerves II-XII are intact, no focal deficits PSYCHIATRIC: Mood and affect are normal LABORATORY DATA, IMAGING STUDIES, MICROBIOLOGY: Please see below. ASSESSMENT AND PLAN: This is a 83 y/o M admitted for SARS associated Coronavirus infection. PLAN: (1) SARS-associated coronavirus infection. Currently remains on 3 L NC, decreased from 5 L NC later in day. Fibrinogen, CRP further improved. Afebrile since 07/19/19 AM. C/w scheduled labs, daily ECG, hydroxychloroquine, duoneb ATc, albuterol PRN, incentive spirometer Q2 hrs while awake. (2) Afib Status: Chronic. Problem Text: HR increased some. Kept holding parameters on BB; however, loosened parameters for CCB. Improved HR after. (3) HTN (hypertension) Status: Chronic Problem Text: Slightly lower than normal BP today, improved after some time. Hold BB and CCB with parameters set. (4) GERD (gastroesophageal reflux disease) Status: Chronic Problem Text: Continue home meds (5) COPD (chronic obstructive pulmonary disease) Status: Chronic Problem Text: Not currently in exacerbation. C/w MDI combivent, albuterol, steroids. (6) CKD stage III. Cr further improved, near baseline. Daily labs. (7) DVT px. Enoxaparin SC Q12 hrs. DISPOSITION: PT/OT initially ordered today ;however, needed to be postponed due to increased SOB, hypoxic episode. Will try again tomorrow. Currently admitted under inpatient status. Plan is discharge home when medically improved. VS, I&O, 24H, Fishbone Vital Signs/I&O Vital Signs Date Time Temp Pulse Resp B/P (MAP) Pulse Ox O2 Delivery O2 Flow Rate FiO2 07/21/19 18:06 69 105/58 (74) 87 Nasal Cannula 4.0 07/21/19 16:01 99.2 20 I&O- Last 24 Hours up to 6 AM 07/21/19 06:00 Intake Total 620 ml Output Total 1010 ml Balance -390 ml Laboratory Data 24H LABS Laboratory Tests 2 07/21/19 05:00: Immature Granulocyte % (Auto) 4.9H, Neutrophils (%) (Auto) 68.0H, Lymphocytes (%) (Auto) 8.8L, Monocytes (%) (Auto) 18.1H, Eosinophils (%) (Auto) 0.1, Basophils (%) (Auto) 0.1, Neutrophils # (Auto) 4.9, Lymphocytes # (Auto) 0.6L, Monocytes # (Auto) 1.3H, Eosinophils # (Auto) 0.0, Basophils # (Auto) 0.0, Nucleated Red Blood Cells % (auto) 0.0, Prothrombin Time 14.1H, Prothromb Time International Ratio 1.12, Activated Partial Thromboplast Time 43.9H, Fibrinogen 732H, D-Dimer, Quantitative 405.60, Anion Gap 6L, Glomerular Filtration Rate 47.1, Calcium Level 8.3L, Magnesium Level 2.3, Ferritin 428H, Total Bilirubin 0.4, Aspartate Amino Transf (AST/SGOT) 31, Alanine Aminotransferase (ALT/SGPT) 19, Alkaline Phosphatase 59, Lactate Dehydrogenase 217, Troponin I < 0.02, C- Reactive Protein, Quantitative 17.90H, YZ-Ill-H-Type Natriuretic Peptide 681H, Total Protein 5.1L, Albumin 2.1L, Albumin/Globulin Ratio 0.70L, Triglycerides Level 167H, Procalcitonin 0.64 07/21/19 12:51: Urine Color YELLOW, Urine Appearance CLEAR, Urine pH 7.0, Urine Specific [place] 1.008, Urine Protein NEGATIVE, Urine Glucose (UA) NEGATIVE, Urine Ketones NEGATIVE, Urine Blood 1+H, Urine Nitrite NEGATIVE, Urine Bilirubin NEGATIVE, Urine Urobilinogen 0.2, Urine Leukocyte Esterase NEGATIVE, Urine WBC (Auto) 4H, Urine RBC (Auto) 0, Urine Hyaline Casts (Auto) 1, Urine Bacteria (Auto) NEGATIVE, Urine Squamous Epithelial Cells 0, Urine Sperm (Auto) 07/21/19 17:50: Anion Gap 6L, Glomerular Filtration Rate 42.5, Calcium Level 8.6L, Ferritin 454H, Total Bilirubin 0.4, Aspartate Amino Transf (AST/SGOT) 33, Alanine Aminotransferase (ALT/SGPT) 20, Alkaline Phosphatase 69, Lactate Dehydrogenase 242H, Troponin I < 0.02, C-Reactive Protein, Quantitative 15.70H, GZ-Cke-D-Type Natriuretic Peptide 766H, Total Protein 5.4L, Albumin 2.1L, Albumin/Globulin Ratio 0.64L, Triglycerides Level 208H 07/21/19 17:51: Immature Granulocyte % (Auto) 4.4H, Neutrophils (%) (Auto) 69.6H, Lymphocytes (%) (Auto) 8.3L, Monocytes (%) (Auto) 17.2H, Eosinophils (%) (Auto) 0.1, Basophils (%) (Auto) 0.4, Neutrophils # (Auto) 5.6, Lymphocytes # (Auto) 0.7L, Monocytes # (Auto) 1.4H, Eosinophils # (Auto) 0.0, Basophils # (Auto) 0.0, Nucleated Red Blood Cells % (auto) 0.0, Prothrombin Time 14.1H, Prothromb Time International Ratio 1.11, Activated Partial Thromboplast Time 39.7H, Fibrinogen 832H, D-Dimer, Quantitative 380.78 CBC/BMP Laboratory Tests 07/21/19 05:00 07/21/19 17:50 07/21/19 17:51 Microbiology Microbiology 07/16/19 Blood Culture - Final, Complete NO GROWTH AFTER 5 DAYS 07/16/19 Blood Culture - Final, Complete NO GROWTH AFTER 5 DAYS Current Medications Current Medications Medications (Trade) Dose Ordered Sig/Sasha Route PRN Reason Start Time Stop Time Status Last Admin Dose Admin Acetaminophen (Tylenol Tab) 650 mg Q4HP PRN PO PAIN OR FEVER 07/16/19 21:30 07/21/19 05:07 Albuterol Sulfate (Proventil, Ventolin Hfa) 2 puff Q2HP PRN INH SHORTNESS OF BREATH 07/20/19 12:15 07/21/19 16:56 Albuterol/ Ipratropium (Combivent Respimat 100-20mcg) 1 puff RQ6H INH 07/20/19 14:00 07/21/19 19:26 Amiodarone HCl (Pacerone, Cordarone) 200 mg DAILY PO 07/17/19 09:00 07/21/19 08:15 Atenolol (Tenormin) 25 mg BID PO 07/16/19 21:00 07/20/19 20:34 Budesonide/ Formoterol Fumarate (Symbicort 160/ 4.5mcg) 2 puff RBID INH 07/16/19 20:00 07/21/19 19:27 Codeine Phosphate/ Guaifenesin (Robitussin Ac) 5 ml Q4HP PRN PO COUGH 07/18/19 08:45 07/21/19 17:13 Diltiazem HCl (Cardizem) 120 mg DAILY PO 07/17/19 09:00 07/21/19 09:30 Enoxaparin Sodium (Lovenox) 30 mg Q12H SC 07/16/19 21:00 07/16/19 22:11 DC Enoxaparin Sodium (Lovenox) 30 mg Q12H SC 07/16/19 21:00 07/21/19 08:15 Finasteride (Proscar) 5 mg QHS PO 07/16/19 21:00 07/20/19 20:33 Furosemide (LASIX injection) 40 mg DAILY IV 07/21/19 09:00 07/21/19 08:15 Home Med (Med Rec Complete!) ASDIRECTED XX 07/16/19 21:45 07/16/19 21:43 DC Hydroxychloroquine Sulfate (Plaquenil) 200 mg BID PO 07/19/19 09:00 07/22/19 21:01 07/21/19 08:15 Hydroxychloroquine Sulfate (Plaquenil) 400 mg Q12H PO 07/18/19 09:00 07/18/19 21:01 DC 07/18/19 20:23 Influenza Virus Vaccine (Flublok Quad(Egg-Free)18y&Older Influenza) 0.5 ml ASDIRECTED IM 07/19/19 09:30 Magnesium Chloride (Slow-Mag) 64 mg DAILY PO 07/17/19 09:00 07/21/19 08:14 Omeprazole (PriLOSEC) 40 mg DAILY PO 07/17/19 09:00 07/21/19 08:14 Ondansetron HCl (ZOFRAN INJection) 4 mg Q4HP PRN IV NAUSEA OR VOMITING 07/17/19 01:00 07/16/19 21:29 DC Polyethylene Glycol (Miralax) 1 pkt DAILY@2100 PO 07/17/19 21:00 07/20/19 20:35 Potassium Chloride (Micro-K Extencaps) 10 meq QPM PO 07/16/19 21:00 07/20/19 20:34 Prednisone (Deltasone) 2.5 mg QHS PO 07/17/19 21:00 07/20/19 20:33 Prednisone (Deltasone) 5 mg QAM PO 07/17/19 09:00 07/21/19 08:14 Promethazine HCl (PHENERGAN INJection) 12.5 mg Q4HP PRN IV NAUSEA 07/16/19 21:30 07/21/19 18:12 DC 07/21/19 05:06 Promethazine HCl (Phenergan) 25 mg Q6HP PRN PO NAUSEA 07/21/19 09:15 07/21/19 16:56 Ropinirole HCl (Requip) 0.25 mg QHS PO 07/17/19 21:00 07/20/19 20:34 Sodium Chloride 500 ml @ 100 mls/hr Q5H IV 07/17/19 04:03 07/17/19 08:29 DC 07/17/19 05:05 Sodium Chloride 1,000 ml @ 100 mls/hr Q10H IV 07/17/19 03:30 07/17/19 04:03 DC Sodium Chloride (Saline Lock Flush) 2 ml ASDIRECTED PRN IV SEE LABEL COMMENTS 07/20/19 15:00 Sodium Chloride (Saline Lock Flush) 2 ml SLF IV 07/20/19 22:00 07/21/19 13:03 DC 07/21/19 05:07 Sodium Chloride (Saline Lock Flush) 2 ml SLF IV 07/21/19 16:00 07/21/19 16:56 Tamsulosin HCl (Flomax) 0.4 mg QHS PO 07/17/19 21:00 07/20/19 20:34 Torsemide (Demadex) 10 mg QHS PO 07/16/19 21:00 07/20/19 12:09 DC 07/19/19 19:33 Tramadol HCl (Ultram) 50 mg TID PRN PO PAIN 07/16/19 23:00 07/20/19 20:34 Allergies Coded Allergies: fluconazole (Verified Allergy, Unknown, UNKNOWN REACTION, 03/31/19) fluticasone (Verified Allergy, Unknown, UNKNOWN REACTION, 03/31/19) metformin (Verified Allergy, Unknown, UNKNOWN REACTION, 03/31/19) petrolatum,white (Verified Allergy, Unknown, ITCH/RASH, 03/31/19) azithromycin (Verified Adverse Reaction, Unknown, LOWERS BP, 03/31/19) clarithromycin (Verified Adverse Reaction, Unknown, LOWERS BP, 03/31/19) procaine (Verified Adverse Reaction, Unknown, DIZZINESS, 03/31/19) Clarice Rodriguez MD Jul 21, 2019 19:41
--- NOTE | 2019-07-21 19:57 | ECGEPIP ---
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
[2019-07-21] MEDS: rOPINIRole 0.25 MG TAB(REQUIP) PO SCH (20:25)
[2019-07-21] MEDS: POTASSIUM CHLORIDE 10 MEQ SR TABLET PO SCH (20:25)
[2019-07-21] MEDS: predniSONE 2.5 MG TAB PO SCH (20:26)
[2019-07-21] MEDS: traMADol 50 MG TAB PO PRN (20:26)
[2019-07-21] MEDS: TAMSULOSIN 0.4 MG CAP PO SCH (20:26)
[2019-07-21] MEDS: MIRALAX *UNIT DOSE* 17GM PACKET PO SCH (21:00)
[2019-07-21] MEDS: FINASTERIDE 5 MG TAB PO SCH (21:00)
[2019-07-22] VITALS (8 sets, daily range): BP systolic 96–126; BP diastolic 54–60; O2SAT 91–95
[2019-07-22] MEDS: ACETAMINOPHEN TAB 650MG DOSE (2X325MG) PO PRN ×2 (01:00→10:00)
[2019-07-22] MEDS: COMBIVENT RESPIMAT 100-20MCG INHALER 4GM INH SCH ×4 (01:49→19:28)
[2019-07-22 05:39] LABS: HEMATOCRIT 26.9 % (42.0-52.0); HEMOGLOBIN 8.7 g/dl (13.5-17.5); MEAN CORPUSCULAR HEMOGLOBIN 28.9 pg (27.0-33.0); MEAN CORPUSCULAR HGB CONC 32.3 g/dl (32.0-36.5); MEAN CORPUSCULAR VOLUME 89.4 fl (80.0-96.0); PLATELET COUNT, AUTOMATED 226 10^3/uL (150-450); RED BLOOD COUNT 3.01 10^6/uL (4.30-6.10); WHITE BLOOD COUNT 8.1 10^3/uL (4.0-10.0)
[2019-07-22 05:52] LABS: INR 1.22; PROTHROMBIN TIME 15.1 SECONDS (11.8-14.0)
[2019-07-22 05:53] LABS: PARTIAL THROMBOPLASTIN TIME 38.2 SECONDS (25.0-38.4)
[2019-07-22 05:56] LABS: D-DIMER QUANT 335.66 ng/ml (<500)
[2019-07-22 05:57] LABS: ANISOCYTOSIS 2+; LYMPHOCYTES 10 % (16-44); METAMYELOCYTES 2 % (0-0); MONOCYTES 18 % (0-5); NEUTROPHILS 67 % (28-66); PLATELET ESTIMATE NORMAL (NORMAL)
[2019-07-22] MEDS: SLF 3 ML SYR IV SCH ×3 (06:03→21:13)
[2019-07-22 06:05] LABS: ALT/SGPT 18 U/L (12-78); BILIRUBIN,TOTAL 0.4 MG/DL (0.2-1.0); BLOOD UREA NITROGEN 38 MG/DL (7-18); CALCIUM LEVEL 8.1 MG/DL (8.8-10.2); CARBON DIOXIDE LEVEL 33 MEQ/L (21-32); CHLORIDE LEVEL 101 MEQ/L (98-107); CREATININE FOR GFR 1.68 MG/DL (0.70-1.30); FERRITIN 404 NG/ML (26-388); GLOMERULAR FILTRATION RATE 41.6 (>35); GLUCOSE, FASTING 123 MG/DL (70-100); LDH LACTATE DEHYDROGENASE 228 U/L (87-241); NT-PRO BNP 536 PG/ML (<450); POTASSIUM SERUM 4.1 MEQ/L (3.5-5.1); SODIUM LEVEL 140 MEQ/L (136-145); TOTAL PROTEIN 5.1 GM/DL (6.4-8.2); TRIGLYCERIDES LEVEL 205 MG/DL (<150); TROPONIN I < 0.02 NG/ML (< 0.10)
[2019-07-22] MEDS: SYMBICORT 160/4.5MCG INHALER 6GM INH SCH ×2 (08:16→19:29)
[2019-07-22] MEDS: MAGNESIUM CHLORIDE 64 MG TABCR (SLO MAG) PO SCH (08:58)
[2019-07-22] MEDS: OMEPRAZOLE 20 MG CAP PO SCH (08:59)
[2019-07-22] MEDS: atenoloL 25 MG TAB PO SCH ×2 (08:59→21:09)
[2019-07-22] MEDS: predniSONE 5 MG TAB PO SCH (08:59)
[2019-07-22] MEDS: HYDROXYCHLOROQUINE 200 MG TAB PO SCH ×2 (08:59→21:10)
[2019-07-22] MEDS: AMIODARONE 200 MG TAB (PACERONE) PO SCH (08:59)
[2019-07-22] MEDS: PROMETHAZINE 25 MG TAB PO PRN ×2 (09:00→16:57)
[2019-07-22] MEDS: ENOXAPARIN 30MG/0.3ML SYRINGE (J1650 PER 10MG) SC SCH ×2 (09:00→21:08)
[2019-07-22] MEDS: FUROSEMIDE 40MG/4ML VIAL (J1940) IV SCH (09:00)
--- NOTE | 2019-07-22 15:24 | IPNPDOC ---
Date Seen The patient was seen on 07/22/19. Progress Note SUBJECTIVE: Saturating 92% on 3 L NC, worsens at times after coughing fit. Will attempt to further wean down. PT/OT to see patient today and will f/u notes. BNP further improved, several markers continue to decrease. Denies chest pain, diarrhea. OBJECTIVE PHYSICAL EXAMINATION: VS: please see below CONSTITUTIONAL: awake and oriented x 3, lethargic EYES: PERRLA, EOM intact HENT, MOUTH: Normocephalic, atraumatic, moist mucous membranes, NECK: SUPPLE, no JVD, no lymphadenopathy, no carotid bruit CV: S1S2 normal, no murmurs/rubs/gallops RESPIRATORY: Decreased breath sounds R>L, decreased crackles in bases. no rales/rhonchi GI: BS positive in 4 quadrants, soft, nontender, nondistended, no rebound or guarding, no organomegaly : Deferred MUSCULOSKELETAL: Normal ROM. No cyanosis, clubbing, swelling, joint deformity. Pain to touch of b/l lower ext-chronic. Pulses present in all ext INTEGUMENTARY: Intact, no rashes, no lesions, no erythema NEUROLOGIC: Cranial Nerves II-XII are intact, no focal deficits PSYCHIATRIC: Mood and affect are normal LABORATORY DATA: Please see below. ASSESSMENT: This is a 83 y/o M admitted for SARS-associated Coronavirus infection. PLAN: (1) SARS-associated coronavirus infection. Currently remains on 3 L NC, home O2 amt 2 L NC ATC. C/w incentive spirometer, scheduled labs, daily ECG, hydroxychloroquine, duoneb ATC, albuterol PRN, incentive spirometer Q2 hrs while awake. (2) Afib Status: Chronic. Problem Text: HR improved with modifications of holding parameters on CCB. C/w BB, CCB. (3) HTN (hypertension) Status: Chronic Problem Text: Slightly lower than normal BP at times but improved. C/w BB, CCB with parameters set. (4) GERD (gastroesophageal reflux disease) Status: Chronic Problem Text: Continue home meds (5) COPD (chronic obstructive pulmonary disease) Status: Chronic Problem Text: Not currently in exacerbation. C/w MDI combivent, albuterol, steroids. (6) CKD stage III. Status: Chronic Problem Text: Cr 1.68, at baseline (1.6-1.8). Daily labs. (7) DVT px. Enoxaparin SC Q12 hrs. DISPOSITION: PT/OT evaluating today. Currently admitted under inpatient status. Plan is discharge home when medically improved. VS, I&O, 24H, Fishbone Vital Signs/I&O Vital Signs Date Time Temp Pulse Resp B/P (MAP) Pulse Ox O2 Delivery O2 Flow Rate FiO2 07/22/19 12:00 97.6 69 18 109/58 (75) 88 Nasal Cannula 3.0 I&O- Last 24 Hours up to 6 AM 07/22/19 06:00 Intake Total 680 ml Output Total 950 ml Balance -270 ml Laboratory Data 24H LABS Laboratory Tests 2 07/21/19 17:50: Anion Gap 6L, Glomerular Filtration Rate 42.5, Calcium Level 8.6L, Ferritin 454H, Total Bilirubin 0.4, Aspartate Amino Transf (AST/SGOT) 33, Alanine Aminotransferase (ALT/SGPT) 20, Alkaline Phosphatase 69, Lactate Dehydrogenase 242H, Troponin I < 0.02, C-Reactive Protein, Quantitative 15.70H, AS-Bkv-W-Type Natriuretic Peptide 766H, Total Protein 5.4L, Albumin 2.1L, Albumin/Globulin Ra semaj 0.64L, Triglycerides Level 208H 07/21/19 17:51: Immature Granulocyte % (Auto) 4.4H, Neutrophils (%) (Auto) 69.6H, Lymphocytes (%) (Auto) 8.3L, Monocytes (%) (Auto) 17.2H, Eosinophils (%) (Auto) 0.1, Basophils (%) (Auto) 0.4, Neutrophils # (Auto) 5.6, Lymphocytes # (Auto) 0.7L, Monocytes # (Auto) 1.4H, Eosinophils # (Auto) 0.0, Basophils # (Auto) 0.0, Nucleated Red Blood Cells % (auto) 0.0, Prothrombin Time 14.1H, Prothromb Time International Ratio 1.11, Activated Partial Thromboplast Time 39.7H, Fibrinogen 832H, D-Dimer, Quantitative 380.78 07/22/19 05:07: Anion Gap 6L, Glomerular Filtration Rate 41.6, Calcium Level 8.1L, Ferritin 404H, Total Bilirubin 0.4, Aspartate Amino Transf (AST/SGOT) 27, Alanine Aminotransferase (ALT/SGPT) 18, Alkaline Phosphatase 65, Lactate Dehydrogenase 228, Troponin I < 0.02, C-Reactive Protein, Quantitative 12.30H, VB-Awq-N-Type Natriuretic Peptide 536H, Total Protein 5.1L, Albumin 2.0L, Albumin/Globulin Ratio 0.65L, Triglycerides Level 205H, Immature Granulocyte % (Auto) , Neutrophils (%) (Auto) , Nucleated Red Blood Cells % (auto) 0.0, Prothrombin Time 15.1H, Prothromb Time International Ratio 1.22, Activated Partial Thromboplast Time 38.2, Fibrinogen 815H, D-Dimer, Quantitative 335.66, Neutrophils 67H, Band Neutrophils 3, Lymphocytes (Manual) 10L, Monocytes (Manual) 18H, Metamyelocytes 2H, Anisocytosis 2+, Platelet Estimate NORMAL CBC/BMP Laboratory Tests 07/21/19 17:50 07/21/19 17:51 07/22/19 05:07 Microbiology Microbiology 07/16/19 Blood Culture - Final, Complete NO GROWTH AFTER 5 DAYS 07/16/19 Blood Culture - Final, Complete NO GROWTH AFTER 5 DAYS Current Medications Current Medications Medications (Trade) Dose Ordered Sig/Sasha Route PRN Reason Start Time Stop Time Status Last Admin Dose Admin Acetaminophen (Tylenol Tab) 650 mg Q4HP PRN PO PAIN OR FEVER 07/16/19 21:30 07/22/19 10:00 Albuterol Sulfate (Proventil, Ventolin Hfa) 2 puff Q2HP PRN INH SHORTNESS OF BREATH 07/20/19 12:15 07/21/19 16:56 Albuterol/ Ipratropium (Combivent Respimat 100-20mcg) 1 puff RQ6H INH 07/20/19 14:00 07/22/19 13:49 Amiodarone HCl (Pacerone, Cordarone) 200 mg DAILY PO 07/17/19 09:00 07/22/19 08:59 Atenolol (Tenormin) 25 mg BID PO 07/16/19 21:00 07/22/19 08:59 Budesonide/ Formoterol Fumarate (Symbicort 160/ 4.5mcg) 2 puff RBID INH 07/16/19 20:00 07/22/19 08:16 Codeine Phosphate/ Guaifenesin (Robitussin Ac) 5 ml Q4HP PRN PO COUGH 07/18/19 08:45 07/21/19 17:13 Diltiazem HCl (Cardizem) 120 mg DAILY PO 07/17/19 09:00 07/22/19 08:59 Enoxaparin Sodium (Lovenox) 30 mg Q12H SC 07/16/19 21:00 07/16/19 22:11 DC Enoxaparin Sodium (Lovenox) 30 mg Q12H SC 07/16/19 21:00 07/22/19 09:00 Finasteride (Proscar) 5 mg QHS PO 07/16/19 21:00 07/21/19 21:00 Furosemide (LASIX injection) 40 mg DAILY IV 07/21/19 09:00 07/22/19 09:00 Home Med (Med Rec Complete!) ASDIRECTED XX 07/16/19 21:45 07/16/19 21:43 DC Hydroxychloroquine Sulfate (Plaquenil) 200 mg BID PO 07/19/19 09:00 07/22/19 21:01 07/22/19 08:59 Hydroxychloroquine Sulfate (Plaquenil) 400 mg Q12H PO 07/18/19 09:00 07/18/19 21:01 DC 07/18/19 20:23 Influenza Virus Vaccine (Flublok Quad(Egg-Free)18y&Older Influenza) 0.5 ml ASDIRECTED IM 07/19/19 09:30 Magnesium Chloride (Slow-Mag) 64 mg DAILY PO 07/17/19 09:00 07/22/19 08:58 Omeprazole (PriLOSEC) 40 mg DAILY PO 07/17/19 09:00 07/22/19 08:59 Ondansetron HCl (ZOFRAN INJection) 4 mg Q4HP PRN IV NAUSEA OR VOMITING 07/17/19 01:00 07/16/19 21:29 DC Polyethylene Glycol (Miralax) 1 pkt DAILY@2100 PO 07/17/19 21:00 07/20/19 20:35 Potassium Chloride (Micro-K Extencaps) 10 meq QPM PO 07/16/19 21:00 07/21/19 20:25 Prednisone (Deltasone) 2.5 mg QHS PO 07/17/19 21:00 07/21/19 20:26 Prednisone (Deltasone) 5 mg QAM PO 07/17/19 09:00 07/22/19 08:59 Promethazine HCl (PHENERGAN INJection) 12.5 mg Q4HP PRN IV NAUSEA 07/16/19 21:30 07/21/19 18:12 DC 07/21/19 05:06 Promethazine HCl (Phenergan) 25 mg Q6HP PRN PO NAUSEA 07/21/19 09:15 07/22/19 09:00 Ropinirole HCl (Requip) 0.25 mg QHS PO 07/17/19 21:00 07/21/19 20:25 Sodium Chloride 500 ml @ 100 mls/hr Q5H IV 07/17/19 04:03 07/17/19 08:29 DC 07/17/19 05:05 Sodium Chloride 1,000 ml @ 100 mls/hr Q10H IV 07/17/19 03:30 07/17/19 04:03 DC Sodium Chloride (Saline Lock Flush) 2 ml ASDIRECTED PRN IV SEE LABEL COMMENTS 07/20/19 15:00 Sodium Chloride (Saline Lock Flush) 2 ml SLF IV 07/20/19 22:00 07/21/19 13:03 DC 07/21/19 05:07 Sodium Chloride (Saline Lock Flush) 2 ml SLF IV 07/21/19 16:00 07/22/19 13:53 Tamsulosin HCl (Flomax) 0.4 mg QHS PO 07/17/19 21:00 07/21/19 20:26 Torsemide (Demadex) 10 mg QHS PO 07/16/19 21:00 07/20/19 12:09 DC 07/19/19 19:33 Tramadol HCl (Ultram) 50 mg TID PRN PO PAIN 07/16/19 23:00 07/21/19 20:26 Allergies Coded Allergies: fluconazole (Verified Allergy, Unknown, UNKNOWN REACTION, 03/31/19) fluticasone (Verified Allergy, Unknown, UNKNOWN REACTION, 03/31/19) metformin (Verified Allergy, Unknown, UNKNOWN REACTION, 03/31/19) petrolatum,white (Verified Allergy, Unknown, ITCH/RASH, 03/31/19) azithromycin (Verified Adverse Reaction, Unknown, LOWERS BP, 03/31/19) clarithromycin (Verified Adverse Reaction, Unknown, LOWERS BP, 03/31/19) procaine (Verified Adverse Reaction, Unknown, DIZZINESS, 03/31/19) Clarice Rodriguez MD Jul 22, 2019 15:24
[2019-07-22 18:10] LABS: HEMATOCRIT 27.9 % (42.0-52.0); MEAN CORPUSCULAR HEMOGLOBIN 28.7 pg (27.0-33.0); MEAN CORPUSCULAR HGB CONC 32.3 g/dl (32.0-36.5); MEAN CORPUSCULAR VOLUME 88.9 fl (80.0-96.0); PLATELET COUNT, AUTOMATED 243 10^3/uL (150-450); RED BLOOD COUNT 3.14 10^6/uL (4.30-6.10); WHITE BLOOD COUNT 10.8 10^3/uL (4.0-10.0)
[2019-07-22 18:19] LABS: INR 1.14; PROTHROMBIN TIME 14.4 SECONDS (11.8-14.0)
[2019-07-22 18:20] LABS: PARTIAL THROMBOPLASTIN TIME 36.3 SECONDS (25.0-38.4)
[2019-07-22 18:23] LABS: D-DIMER QUANT 315.42 ng/ml (<500)
[2019-07-22 18:42] LABS: ALBUMIN 2.1 GM/DL (3.2-5.2); ALT/SGPT 21 U/L (12-78); BILIRUBIN,TOTAL 0.8 MG/DL (0.2-1.0); BLOOD UREA NITROGEN 41 MG/DL (7-18); CALCIUM LEVEL 8.1 MG/DL (8.8-10.2); CARBON DIOXIDE LEVEL 33 MEQ/L (21-32); CHLORIDE LEVEL 100 MEQ/L (98-107); CREATININE FOR GFR 1.68 MG/DL (0.70-1.30); FERRITIN 397 NG/ML (26-388); GLOMERULAR FILTRATION RATE 41.6 (>35); GLUCOSE, FASTING 110 MG/DL (70-100); LDH LACTATE DEHYDROGENASE 270 U/L (87-241); NT-PRO BNP 446 PG/ML (<450); POTASSIUM SERUM 4.4 MEQ/L (3.5-5.1); SODIUM LEVEL 139 MEQ/L (136-145); TOTAL PROTEIN 5.4 GM/DL (6.4-8.2); TRIGLYCERIDES LEVEL 228 MG/DL (<150); TROPONIN I < 0.02 NG/ML (< 0.10)
[2019-07-22 18:43] LABS: BASOPHILS 1 % (0-1); LYMPHOCYTES 6 % (16-44); MONOCYTES 2 % (0-5); MYELOCYTES 2 % (0-0); NEUTROPHILS 88 % (28-66)
[2019-07-22 18:44] LABS: OVALOCYTES 1+; PLATELET ESTIMATE NORMAL (NORMAL); POIKILOCYTOSIS 1+
[2019-07-22] MEDS: MIRALAX *UNIT DOSE* 17GM PACKET PO SCH (20:49)
[2019-07-22] MEDS: FINASTERIDE 5 MG TAB PO SCH (21:08)
[2019-07-22] MEDS: rOPINIRole 0.25 MG TAB(REQUIP) PO SCH (21:08)
[2019-07-22] MEDS: guaiFENesin/CODEINE SYRUP 5 ML UDC PO PRN (21:08)
[2019-07-22] MEDS: predniSONE 2.5 MG TAB PO SCH (21:08)
[2019-07-22] MEDS: TAMSULOSIN 0.4 MG CAP PO SCH (21:10)
[2019-07-22] MEDS: traMADol 50 MG TAB PO PRN (21:10)
[2019-07-22] MEDS: POTASSIUM CHLORIDE 10 MEQ SR TABLET PO SCH (21:10)
[2019-07-23] VITALS (8 sets, daily range): BP systolic 76–126; BP diastolic 48–62
[2019-07-23] MEDS: COMBIVENT RESPIMAT 100-20MCG INHALER 4GM INH SCH ×4 (01:51→20:00)
[2019-07-23 05:49] LABS: HEMATOCRIT 26.8 % (42.0-52.0); HEMOGLOBIN 8.7 g/dl (13.5-17.5); MEAN CORPUSCULAR HEMOGLOBIN 28.9 pg (27.0-33.0); MEAN CORPUSCULAR HGB CONC 32.5 g/dl (32.0-36.5); PLATELET COUNT, AUTOMATED 249 10^3/uL (150-450); RED BLOOD COUNT 3.01 10^6/uL (4.30-6.10); WHITE BLOOD COUNT 10.3 10^3/uL (4.0-10.0)
[2019-07-23 05:50] LABS: INR 1.14; PROTHROMBIN TIME 14.3 SECONDS (11.8-14.0)
[2019-07-23] MEDS: ACETAMINOPHEN TAB 650MG DOSE (2X325MG) PO PRN (05:50)
[2019-07-23 05:51] LABS: PARTIAL THROMBOPLASTIN TIME 36.8 SECONDS (25.0-38.4)
[2019-07-23] MEDS: SLF 3 ML SYR IV SCH ×3 (05:51→20:03)
[2019-07-23 05:54] LABS: D-DIMER QUANT 375.79 ng/ml (<500)
[2019-07-23 06:13] LABS: LYMPHOCYTES 10 % (16-44); MONOCYTES 12 % (0-5); NEUTROPHILS 78 % (28-66); PLATELET ESTIMATE NORMAL (NORMAL)
[2019-07-23 06:24] LABS: ALT/SGPT 17 U/L (12-78); BILIRUBIN,TOTAL 0.4 MG/DL (0.2-1.0); BLOOD UREA NITROGEN 36 MG/DL (7-18); C REACTIVE PROTEIN QUANTITATIV 8.71 MG/DL (0.00-0.30); CALCIUM LEVEL 8.1 MG/DL (8.8-10.2); CARBON DIOXIDE LEVEL 32 MEQ/L (21-32); CHLORIDE LEVEL 103 MEQ/L (98-107); CREATININE FOR GFR 1.51 MG/DL (0.70-1.30); FERRITIN 364 NG/ML (26-388); GLOMERULAR FILTRATION RATE 47.1 (>35); GLUCOSE, FASTING 88 MG/DL (70-100); LDH LACTATE DEHYDROGENASE 201 U/L (87-241); NT-PRO BNP 489 PG/ML (<450); POTASSIUM SERUM 4.3 MEQ/L (3.5-5.1); SODIUM LEVEL 141 MEQ/L (136-145); TOTAL PROTEIN 5.2 GM/DL (6.4-8.2); TRIGLYCERIDES LEVEL 217 MG/DL (<150); TROPONIN I < 0.02 NG/ML (< 0.10)
[2019-07-23] MEDS: PROMETHAZINE 25 MG TAB PO PRN ×2 (07:37→17:33)
[2019-07-23] MEDS: SYMBICORT 160/4.5MCG INHALER 6GM INH SCH ×2 (07:54→20:34)
[2019-07-23] MEDS: MAGNESIUM CHLORIDE 64 MG TABCR (SLO MAG) PO SCH (09:22)
[2019-07-23] MEDS: ENOXAPARIN 30MG/0.3ML SYRINGE (J1650 PER 10MG) SC SCH ×2 (09:22→20:02)
[2019-07-23] MEDS: FUROSEMIDE 40MG/4ML VIAL (J1940) IV SCH (09:22)
[2019-07-23] MEDS: predniSONE 5 MG TAB PO SCH (09:23)
[2019-07-23] MEDS: OMEPRAZOLE 20 MG CAP PO SCH (09:23)
[2019-07-23] MEDS: AMIODARONE 200 MG TAB (PACERONE) PO SCH (09:23)
[2019-07-23] MEDS: atenoloL 25 MG TAB PO SCH ×2 (09:23→20:02)
--- NOTE | 2019-07-23 10:09 | ECGEPIP ---
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
--- NOTE | 2019-07-23 10:16 | ECGEPIP ---
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
[2019-07-23] MEDS: guaiFENesin/CODEINE SYRUP 5 ML UDC PO PRN ×2 (16:12→19:59)
--- NOTE | 2019-07-23 16:47 | IPNPDOC ---
Date Seen The patient was seen on 07/23/19. Progress Note SUBJECTIVE: Saturating well on 3 L NC, worsens at times after coughing fit that can cause hypoxemia. PT/OT working with patient, very deconditioned. Denies chest pain, fever, chills, n/v/d. OBJECTIVE PHYSICAL EXAMINATION: VS: please see below CONSTITUTIONAL: awake and oriented x 3, lethargic EYES: PERRLA, EOM intact HENT, MOUTH: Normocephalic, atraumatic, moist mucous membranes, NECK: SUPPLE, no JVD, no lymphadenopathy, no carotid bruit CV: S1S2 normal, no murmurs/rubs/gallops RESPIRATORY: Decreased breath sounds R>L, minimal crackles in bases. no rales/rhonchi GI: BS positive in 4 quadrants, soft, nontender, nondistended, no rebound or guarding, no organomegaly : Deferred MUSCULOSKELETAL: Normal ROM. No cyanosis, clubbing, swelling, joint deformity. Pain to touch of b/l lower ext-chronic. Pulses present in all ext INTEGUMENTARY: Intact, no rashes, no lesions, no erythema NEUROLOGIC: Cranial Nerves II-XII are intact, no focal deficits PSYCHIATRIC: Mood and affect are normal LABORATORY DATA: Please see below. CURRENT MEDICATIONS: Please see below ASSESSMENT: This is a 83 y/o M admitted for SARS-associated Coronavirus infection. PLAN: (1) SARS-associated coronavirus infection. On 3 L NC. Completed Hydroxychloroquine. C/w incentive spirometer, daily labs, duoneb ATC, albuterol PRN, incentive spirometer Q2 hrs while awake. (2) Afib Status: Chronic. Problem Text: C/w BB, CCB. (3) HTN (hypertension) Status: Chronic Problem Text: C/w BB, CCB with parameters set. (4) GERD (gastroesophageal reflux disease) Status: Chronic Problem Text: Continue home meds (5) COPD (chronic obstructive pulmonary disease) Status: Chronic Problem Text: Not currently in exacerbation. C/w MDI combivent, albuterol, steroids. (6) CKD stage III. Status: Chronic Problem Text: Cr 1.51, at baseline (1.6-1.8). Daily labs. (7) DVT px. Enoxaparin SC Q12 hrs. DISPOSITION: C/w PT/OT. Currently admitted under inpatient status. Plan is discharge home when medically improved. VS, I&O, 24H, Fishbone Vital Signs/I&O Vital Signs Date Time Temp Pulse Resp B/P (MAP) Pulse Ox O2 Delivery O2 Flow Rate FiO2 07/23/19 12:00 3.0 07/23/19 09:45 69 22 90 Nasal Cannula 07/23/19 09:23 116/60 07/23/19 07:25 98.7 I&O- Last 24 Hours up to 6 AM 07/23/19 05:59 Intake Total 560 ml Output Total 1100 ml Balance -540 ml Laboratory Data 24H LABS Laboratory Tests 2 07/22/19 17:52: Immature Granulocyte % (Auto) , Neutrophils (%) (Auto) , Nucleated Red Blood Cells % (auto) 0.0, Neutrophils 88H, Band Neutrophils 1, Lymphocytes (Manual) 6L, Monocytes (Manual) 2, Basophils (Manual) 1, Myelocytes 2H, Poikilocytosis 1+, Ovalocytes 1+, Platelet Estimate NORMAL, Prothrombin Time 14.4H, Prothromb Time International Ratio 1.14, Activated Partial Thromboplast Time 36.3, Fibrinogen 766H, D-Dimer, Quantitative 315.42, Anion Gap 6L, Glomerular Filtration Rate 41.6, Calcium Level 8.1L, Ferritin 397H, Total Bilirubin 0.8#, Aspartate Amino Transf (AST/SGOT) 31, Alanine Aminotransferase (ALT/SGPT) 21, Alkaline Phosphatase 75, Lactate Dehydrogenase 270H, Troponin I < 0.02, C- Reactive Protein, Quantitative 10.10H, HL-Yzo-Z-Type Natriuretic Peptide 446, Total Protein 5.4L, Albumin 2.1L, Albumin/Globulin Ratio 0.64L, Triglycerides Level 228H 07/23/19 05:20: Immature Granulocyte % (Auto) , Neutrophils (%) (Auto) , Nucleated Red Blood Cells % (auto) 0.0, Neutrophils 78H, Lymphocytes (Manual) 10L, Monocytes (Manual) 12H, Platelet Estimate NORMAL, Prothrombin Time 14.3H, Prothromb Time International Ratio 1.14, Activated Partial Thromboplast Time 36.8, Fibrinogen 678H, D-Dimer, Quantitative 375.79, Anion Gap 6L, Glomerular Filtration Rate 47.1, Calcium Level 8.1L, Ferritin 364, Total Bilirubin 0.4, Aspartate Amino Transf (AST/SGOT) 26, Alanine Aminotransferase (ALT/SGPT) 17, Alkaline Phosphatase 72, Lactate Dehydrogenase 201, Troponin I < 0.02, C-Reactive Protein, Quantitative 8.71H, SI-Pzx-Z-Type Natriuretic Peptide 489H, Total Protein 5.2L, Albumin 2.0L, Albumin/Globulin Ratio 0.63L, Triglycerides Level 217H, Red Blood Cell Morphology NORMAL CBC/BMP Laboratory Tests 07/22/19 17:52 07/23/19 05:20 Microbiology Microbiology 07/16/19 Blood Culture - Final, Complete NO GROWTH AFTER 5 DAYS 07/16/19 Blood Culture - Final, Complete NO GROWTH AFTER 5 DAYS Current Medications Current Medications Medications (Trade) Dose Ordered Sig/Sasha Route PRN Reason Start Time Stop Time Status Last Admin Dose Admin Acetaminophen (Tylenol Tab) 650 mg Q4HP PRN PO PAIN OR FEVER 07/16/19 21:30 07/23/19 05:50 Albuterol Sulfate (Proventil, Ventolin Hfa) 2 puff Q2HP PRN INH SHORTNESS OF BREATH 07/20/19 12:15 07/21/19 16:56 Albuterol/ Ipratropium (Combivent Respimat 100-20mcg) 1 puff RQ6H INH 07/20/19 14:00 07/23/19 14:22 Amiodarone HCl (Pacerone, Cordarone) 200 mg DAILY PO 07/17/19 09:00 07/23/19 09:23 Atenolol (Tenormin) 25 mg BID PO 07/16/19 21:00 07/23/19 09:23 Budesonide/ Formoterol Fumarate (Symbicort 160/ 4.5mcg) 2 puff RBID INH 07/16/19 20:00 07/23/19 07:54 Codeine Phosphate/ Guaifenesin (Robitussin Ac) 5 ml Q4HP PRN PO COUGH 07/18/19 08:45 07/23/19 16:12 Diltiazem HCl (Cardizem) 120 mg DAILY PO 07/17/19 09:00 07/23/19 09:23 Enoxaparin Sodium (Lovenox) 30 mg Q12H SC 07/16/19 21:00 4/17/20 22:11 DC Enoxaparin Sodium (Lovenox) 30 mg Q12H SC 07/16/19 21:00 07/23/19 09:22 Finasteride (Proscar) 5 mg QHS PO 07/16/19 21:00 07/22/19 21:08 Furosemide (LASIX injection) 40 mg DAILY IV 07/21/19 09:00 07/23/19 09:22 Home Med (Med Rec Complete!) ASDIRECTED XX 07/16/19 21:45 07/16/19 21:43 DC Hydroxychloroquine Sulfate (Plaquenil) 200 mg BID PO 07/19/19 09:00 07/22/19 21:01 DC 07/22/19 21:10 Hydroxychloroquine Sulfate (Plaquenil) 400 mg Q12H PO 07/18/19 09:00 07/18/19 21:01 DC 07/18/19 20:23 Influenza Virus Vaccine (Flublok Quad(Egg-Free)18y&Older Influenza) 0.5 ml ASDIRECTED IM 07/19/19 09:30 Magnesium Chloride (Slow-Mag) 64 mg DAILY PO 07/17/19 09:00 07/23/19 09:22 Miscellaneous (Unresolved Clarification Entry) SEE LABEL COMMENTS DAILY XX 07/23/19 09:00 07/23/19 07:22 DC Omeprazole (PriLOSEC) 40 mg DAILY PO 07/17/19 09:00 07/23/19 09:23 Ondansetron HCl (ZOFRAN INJection) 4 mg Q4HP PRN IV NAUSEA OR VOMITING 07/17/19 01:00 07/16/19 21:29 DC Polyethylene Glycol (Miralax) 1 pkt DAILY@2100 PO 07/17/19 21:00 07/20/19 20:35 Potassium Chloride (Micro-K Extencaps) 10 meq QPM PO 07/16/19 21:00 07/22/19 21:10 Prednisone (Deltasone) 2.5 mg QHS PO 07/17/19 21:00 07/22/19 21:08 Prednisone (Deltasone) 5 mg QAM PO 07/17/19 09:00 07/23/19 09:23 Promethazine HCl (PHENERGAN INJection) 12.5 mg Q4HP PRN IV NAUSEA 07/16/19 21:30 07/21/19 18:12 DC 07/21/19 05:06 Promethazine HCl (Phenergan) 25 mg Q6HP PRN PO NAUSEA 07/21/19 09:15 07/23/19 07:37 Ropinirole HCl (Requip) 0.25 mg QHS PO 07/17/19 21:00 07/22/19 21:08 Sodium Chloride 500 ml @ 100 mls/hr Q5H IV 07/17/19 04:03 07/17/19 08:29 DC 07/17/19 05:05 Sodium Chloride 1,000 ml @ 100 mls/hr Q10H IV 07/17/19 03:30 07/17/19 04:03 DC Sodium Chloride (Saline Lock Flush) 2 ml ASDIRECTED PRN IV SEE LABEL COMMENTS 07/20/19 15:00 Sodium Chloride (Saline Lock Flush) 2 ml SLF IV 07/20/19 22:00 07/21/19 13:03 DC 07/21/19 05:07 Sodium Chloride (Saline Lock Flush) 2 ml SLF IV 07/21/19 16:00 07/23/19 14:00 Tamsulosin HCl (Flomax) 0.4 mg QHS PO 07/17/19 21:00 07/22/19 21:10 Torsemide (Demadex) 10 mg QHS PO 07/16/19 21:00 07/20/19 12:09 DC 07/19/19 19:33 Tramadol HCl (Ultram) 50 mg TID PRN PO PAIN 07/16/19 23:00 07/22/19 21:10 Allergies Coded Allergies: fluconazole (Verified Allergy, Unknown, UNKNOWN REACTION, 03/31/19) fluticasone (Verified Allergy, Unknown, UNKNOWN REACTION, 03/31/19) metformin (Verified Allergy, Unknown, UNKNOWN REACTION, 03/31/19) petrolatum,white (Verified Allergy, Unknown, ITCH/RASH, 03/31/19) azithromycin (Verified Adverse Reaction, Unknown, LOWERS BP, 03/31/19) clarithromycin (Verified Adverse Reaction, Unknown, LOWERS BP, 03/31/19) procaine (Verified Adverse Reaction, Unknown, DIZZINESS, 03/31/19) Clarice Rodriguez MD Jul 23, 2019 16:47
[2019-07-23] MEDS: predniSONE 2.5 MG TAB PO SCH (19:59)
[2019-07-23] MEDS: rOPINIRole 0.25 MG TAB(REQUIP) PO SCH (20:00)
[2019-07-23] MEDS: FINASTERIDE 5 MG TAB PO SCH (20:00)
[2019-07-23] MEDS: POTASSIUM CHLORIDE 10 MEQ SR TABLET PO SCH (20:00)
[2019-07-23] MEDS: MIRALAX *UNIT DOSE* 17GM PACKET PO SCH (20:02)
[2019-07-23] MEDS: TAMSULOSIN 0.4 MG CAP PO SCH (20:02)
[2019-07-24] VITALS (8 sets, daily range): BP systolic 98–130; BP diastolic 54–63; O2SAT 94
[2019-07-24] MEDS: ACETAMINOPHEN TAB 650MG DOSE (2X325MG) PO PRN ×4 (00:31→20:12)
[2019-07-24] MEDS: guaiFENesin/CODEINE SYRUP 5 ML UDC PO PRN ×5 (00:36→20:08)
[2019-07-24] MEDS: COMBIVENT RESPIMAT 100-20MCG INHALER 4GM INH SCH ×4 (01:59→19:48)
[2019-07-24] MEDS: PROMETHAZINE 25 MG TAB PO PRN ×3 (05:04→17:32)
[2019-07-24] MEDS: SLF 3 ML SYR IV SCH ×3 (05:15→22:00)
[2019-07-24 05:32] LABS: HEMATOCRIT 27.9 % (42.0-52.0); HEMOGLOBIN 9.2 g/dl (13.5-17.5); PLATELET COUNT, AUTOMATED 286 10^3/uL (150-450); RED BLOOD COUNT 3.17 10^6/uL (4.30-6.10); WHITE BLOOD COUNT 10.9 10^3/uL (4.0-10.0)
[2019-07-24 05:49] LABS: ALBUMIN 2.2 GM/DL (3.2-5.2); ALT/SGPT 18 U/L (12-78); BILIRUBIN,TOTAL 0.4 MG/DL (0.2-1.0); BLOOD UREA NITROGEN 42 MG/DL (7-18); C REACTIVE PROTEIN QUANTITATIV 7.32 MG/DL (0.00-0.30); CALCIUM LEVEL 8.2 MG/DL (8.8-10.2); CARBON DIOXIDE LEVEL 30 MEQ/L (21-32); CHLORIDE LEVEL 103 MEQ/L (98-107); CREATININE FOR GFR 1.67 MG/DL (0.70-1.30); FERRITIN 366 NG/ML (26-388); GLOMERULAR FILTRATION RATE 41.9 (>35); GLUCOSE, FASTING 90 MG/DL (70-100); LDH LACTATE DEHYDROGENASE 213 U/L (87-241); NT-PRO BNP 588 PG/ML (<450); POTASSIUM SERUM 4.2 MEQ/L (3.5-5.1); SODIUM LEVEL 141 MEQ/L (136-145); TOTAL PROTEIN 5.5 GM/DL (6.4-8.2); TROPONIN I < 0.02 NG/ML (< 0.10)
[2019-07-24 05:58] LABS: EOSINOPHILS 1 % (0-3); LYMPHOCYTES 6 % (16-44); METAMYELOCYTES 4 % (0-0); MONOCYTES 17 % (0-5); MYELOCYTES 3 % (0-0); NEUTROPHILS 67 % (28-66)
[2019-07-24 05:59] LABS: PLATELET ESTIMATE NORMAL (NORMAL)
[2019-07-24 06:00] LABS: ANISOCYTOSIS 2+; OVALOCYTES 1+
[2019-07-24] MEDS: SYMBICORT 160/4.5MCG INHALER 6GM INH SCH ×2 (08:32→19:48)
[2019-07-24] MEDS: MAGNESIUM CHLORIDE 64 MG TABCR (SLO MAG) PO SCH (08:33)
[2019-07-24] MEDS: ENOXAPARIN 30MG/0.3ML SYRINGE (J1650 PER 10MG) SC SCH ×2 (08:34→20:09)
[2019-07-24] MEDS: OMEPRAZOLE 20 MG CAP PO SCH (08:35)
[2019-07-24] MEDS: predniSONE 5 MG TAB PO SCH (08:36)
[2019-07-24] MEDS: atenoloL 25 MG TAB PO SCH ×2 (08:36→20:10)
[2019-07-24] MEDS: AMIODARONE 200 MG TAB (PACERONE) PO SCH (08:37)
[2019-07-24] MEDS: FUROSEMIDE 40MG/4ML VIAL (J1940) IV SCH (08:37)
--- NOTE | 2019-07-24 12:45 | IPNPDOC ---
Date Seen The patient was seen on 07/24/19. Progress Note SUBJECTIVE: Saturating well in between3-4 L NC. Decreased crackles in bases of bilateral lungs. Complained of severe bilateral lower ext pain, increased ropinirole HS. Denies chest pain, fever, chills, n/v/d. OBJECTIVE PHYSICAL EXAMINATION: VS: please see below CONSTITUTIONAL: awake and oriented x 3, lethargic EYES: PERRLA, EOM intact HENT, MOUTH: Normocephalic, atraumatic, moist mucous membranes, NECK: SUPPLE, no JVD, no lymphadenopathy, no carotid bruit CV: S1S2 normal, no murmurs/rubs/gallops RESPIRATORY: Decreased breath sounds R>L, minimal crackles in bases. no rales/rhonchi GI: BS positive in 4 quadrants, soft, nontender, nondistended, no rebound or guarding, no organomegaly : Deferred MUSCULOSKELETAL: Normal ROM. No cyanosis, clubbing, swelling, joint deformity. Severe pain to touch of b/l lower ext-chronic. Pulses present in all extremities, warm to touch INTEGUMENTARY: Intact, no rashes, no lesions, no erythema NEUROLOGIC: Cranial Nerves II-XII are intact, no focal deficits PSYCHIATRIC: Depressed mood and flat affect. LABORATORY DATA: Please see below. CURRENT MEDICATIONS: Please see below ASSESSMENT: This is a 83 y/o M admitted for SARS-associated Coronavirus infection. PLAN: (1) SARS-associated coronavirus infection. On 3-4 L NC, worse with coughing. Inflammatory markers improved. C/w incentive spirometer, daily labs, Robitussin with codeine, duoneb ATC, albuterol PRN, incentive spirometer Q2 hrs while awake. (2) Afib Status: Chronic and rate controlled Problem Text: C/w BB, CCB. (3) HTN (hypertension) Status: Chronic Problem Text: C/w BB, CCB with parameters set. (4) GERD (gastroesophageal reflux disease) Status: Chronic Problem Text: Continue home meds (5) COPD (chronic obstructive pulmonary disease) Status: Chronic Problem Text: Not currently in exacerbation. C/w MDI combivent, albuterol, steroids. (6) CKD stage III. Status: Chronic Problem Text: Cr 1.67, at baseline (1.6-1.8). Daily labs. (7) Restless leg syndrome Status: Chronic Problem Text: Increased ropinirole to 0.5 mg PO HS due to lower ext pain severe. Monitor BP, response. (8) DVT px. Enoxaparin SC Q12 hrs. DISPOSITION: C/w PT/OT. Currently admitted under inpatient status. Plan is discharge home when medically improved. VS, I&O, 24H, Fishbone Vital Signs/I&O Vital Signs Date Time Temp Pulse Resp B/P (MAP) Pulse Ox O2 Delivery O2 Flow Rate FiO2 07/24/19 12:00 4.0 07/24/19 12:00 97.0 69 18 98/54 (69) 91 Nasal Cannula I&O- Last 24 Hours up to 6 AM 07/24/19 05:59 Intake Total 860 ml Output Total 715 ml Balance 145 ml Laboratory Data 24H LABS Laboratory Tests 2 07/24/19 04:45: Immature Granulocyte % (Auto) , Neutrophils (%) (Auto) , Nucleated Red Blood Cells % (auto) 0.0, Neutrophils 67H, Band Neutrophils 2, Lymphocytes (Manual) 6L, Monocytes (Manual) 17H, Eosinophils (Manual) 1, Metamyelocytes 4H, Myelocytes 3H, Anisocytosis 2+, Ovalocytes 1+, Platelet Estimate NORMAL, D- Dimer, Quantitative 469.31, Anion Gap 8, Glomerular Filtration Rate 41.9, Calcium Level 8.2L, Ferritin 366, Total Bilirubin 0.4, Aspartate Amino Transf (AST/SGOT) 24, Alanine Aminotransferase (ALT/SGPT) 18, Alkaline Phosphatase 81, Lactate Dehydrogenase 213, Troponin I < 0.02, C-Reactive Protein, Quantitative 7.32H, FH-Xhs-R-Type Natriuretic Peptide 588H, Total Protein 5.5L, Albumin 2.2L, Albumin/Globulin Ratio 0.67L CBC/BMP Laboratory Tests 07/24/19 04:45 Microbiology Microbiology 07/16/19 Blood Culture - Final, Complete NO GROWTH AFTER 5 DAYS 07/16/19 Blood Culture - Final, Complete NO GROWTH AFTER 5 DAYS Current Medications Current Medications Medications (Trade) Dose Ordered Sig/Sasha Route PRN Reason Start Time Stop Time Status Last Admin Dose Admin Acetaminophen (Tylenol Tab) 650 mg Q4HP PRN PO PAIN OR FEVER 07/16/19 21:30 07/24/19 08:36 Albuterol Sulfate (Proventil, Ventolin Hfa) 2 puff Q2HP PRN INH SHORTNESS OF BREATH 07/20/19 12:15 07/21/19 16:56 Albuterol/ Ipratropium (Combivent Respimat 100-20mcg) 1 puff RQ6H INH 07/20/19 14:00 07/23/19 14:22 Amiodarone HCl (Pacerone, Cordarone) 200 mg DAILY PO 07/17/19 09:00 07/24/19 08:37 Atenolol (Tenormin) 25 mg BID PO 07/16/19 21:00 07/24/19 08:36 Budesonide/ Formoterol Fumarate (Symbicort 160/ 4.5mcg) 2 puff RBID INH 07/16/19 20:00 07/24/19 08:32 Codeine Phosphate/ Guaifenesin (Robitussin Ac) 5 ml Q4HP PRN PO COUGH 07/18/19 08:45 07/24/19 08:34 Diltiazem HCl (Cardizem) 120 mg DAILY PO 07/17/19 09:00 07/24/19 08:35 Enoxaparin Sodium (Lovenox) 30 mg Q12H SC 07/16/19 21:00 07/16/19 22:11 DC Enoxaparin Sodium (Lovenox) 30 mg Q12H SC 07/16/19 21:00 07/24/19 08:34 Finasteride (Proscar) 5 mg QHS PO 07/16/19 21:00 07/23/19 20:00 Furosemide (LASIX injection) 40 mg DAILY IV 07/21/19 09:00 07/24/19 08:37 Home Med (Med Rec Complete!) ASDIRECTED XX 07/16/19 21:45 07/16/19 21:43 DC Hydroxychloroquine Sulfate (Plaquenil) 200 mg BID PO 07/19/19 09:00 07/22/19 21:01 DC 07/22/19 21:10 Hydroxychloroquine Sulfate (Plaquenil) 400 mg Q12H PO 07/18/19 09:00 07/18/19 21:01 DC 07/18/19 20:23 Influenza Virus Vaccine (Flublok Quad(Egg-Free)18y&Older Influenza) 0.5 ml ASDIRECTED IM 07/19/19 09:30 Magnesium Chloride (Slow-Mag) 64 mg DAILY PO 07/17/19 09:00 07/24/19 08:33 Miscellaneous (Unresolved Clarification Entry) SEE LABEL COMMENTS DAILY XX 07/23/19 09:00 07/23/19 07:22 DC Omeprazole (PriLOSEC) 40 mg DAILY PO 07/17/19 09:00 07/24/19 08:35 Ondansetron HCl (ZOFRAN INJection) 4 mg Q4HP PRN IV NAUSEA OR VOMITING 07/17/19 01:00 07/16/19 21:29 DC Polyethylene Glycol (Miralax) 1 pkt DAILY@2100 PO 07/17/19 21:00 07/20/19 20:35 Potassium Chloride (Micro-K Extencaps) 10 meq QPM PO 07/16/19 21:00 07/23/19 20:00 Prednisone (Deltasone) 2.5 mg QHS PO 07/17/19 21:00 07/23/19 19:59 Prednisone (Deltasone) 5 mg QAM PO 07/17/19 09:00 07/24/19 08:36 Promethazine HCl (PHENERGAN INJection) 12.5 mg Q4HP PRN IV NAUSEA 07/16/19 21:30 07/21/19 18:12 DC 07/21/19 05:06 Promethazine HCl (Phenergan) 25 mg Q6HP PRN PO NAUSEA 07/21/19 09:15 07/24/19 11:24 Ropinirole HCl (Requip) 0.25 mg QHS PO 07/17/19 21:00 07/23/19 20:00 Sodium Chloride 500 ml @ 100 mls/hr Q5H IV 07/17/19 04:03 07/17/19 08:29 DC 07/17/19 05:05 Sodium Chloride 1,000 ml @ 100 mls/hr Q10H IV 07/17/19 03:30 07/17/19 04:03 DC Sodium Chloride (Saline Lock Flush) 2 ml ASDIRECTED PRN IV SEE LABEL COMMENTS 07/20/19 15:00 Sodium Chloride (Saline Lock Flush) 2 ml SLF IV 07/20/19 22:00 07/21/19 13:03 DC 07/21/19 05:07 Sodium Chloride (Saline Lock Flush) 2 ml SLF IV 07/21/19 16:00 07/24/19 05:15 Tamsulosin HCl (Flomax) 0.4 mg QHS PO 07/17/19 21:00 07/23/19 20:02 Torsemide (Demadex) 10 mg QHS PO 07/16/19 21:00 07/20/19 12:09 DC 07/19/19 19:33 Tramadol HCl (Ultram) 50 mg TID PRN PO PAIN 07/16/19 23:00 07/22/19 21:10 Allergies Coded Allergies: fluconazole (Verified Allergy, Unknown, UNKNOWN REACTION, 03/31/19) fluticasone (Verified Allergy, Unknown, UNKNOWN REACTION, 03/31/19) metformin (Verified Allergy, Unknown, UNKNOWN REACTION, 03/31/19) petrolatum,white (Verified Allergy, Unknown, ITCH/RASH, 03/31/19) azithromycin (Verified Adverse Reaction, Unknown, LOWERS BP, 03/31/19) clarithromycin (Verified Adverse Reaction, Unknown, LOWERS BP, 03/31/19) procaine (Verified Adverse Reaction, Unknown, DIZZINESS, 03/31/19) Clarice Rodriguez MD Jul 24, 2019 12:45
[2019-07-24] MEDS: FINASTERIDE 5 MG TAB PO SCH (20:09)
[2019-07-24] MEDS: POTASSIUM CHLORIDE 10 MEQ SR TABLET PO SCH (20:09)
[2019-07-24] MEDS: predniSONE 2.5 MG TAB PO SCH (20:09)
[2019-07-24] MEDS: rOPINIRole 0.25 MG TAB(REQUIP) PO SCH (20:09)
[2019-07-24] MEDS: TAMSULOSIN 0.4 MG CAP PO SCH (20:10)
[2019-07-24] MEDS: MIRALAX *UNIT DOSE* 17GM PACKET PO SCH (20:10)
[2019-07-25] VITALS: BP 115/59
[2019-07-25] MEDS: COMBIVENT RESPIMAT 100-20MCG INHALER 4GM INH SCH ×4 (02:00→20:00)
[2019-07-25] MEDS: guaiFENesin/CODEINE SYRUP 5 ML UDC PO PRN ×4 (02:18→20:33)
[2019-07-25] MEDS: ACETAMINOPHEN TAB 650MG DOSE (2X325MG) PO PRN ×3 (02:26→16:00)
[2019-07-25] MEDS: PROMETHAZINE 25 MG TAB PO PRN ×3 (02:26→15:59)
[2019-07-25 04:00] VITALS: BP 135/65
[2019-07-25 05:46] LABS: HEMATOCRIT 28.5 % (42.0-52.0); HEMOGLOBIN 9.3 g/dl (13.5-17.5); MEAN CORPUSCULAR HEMOGLOBIN 28.6 pg (27.0-33.0); MEAN CORPUSCULAR HGB CONC 32.6 g/dl (32.0-36.5); MEAN CORPUSCULAR VOLUME 87.7 fl (80.0-96.0); PLATELET COUNT, AUTOMATED 332 10^3/uL (150-450); RED BLOOD COUNT 3.25 10^6/uL (4.30-6.10); WHITE BLOOD COUNT 11.9 10^3/uL (4.0-10.0)
[2019-07-25 06:04] LABS: ALBUMIN 2.3 GM/DL (3.2-5.2); ALT/SGPT 17 U/L (12-78); BILIRUBIN,TOTAL 0.4 MG/DL (0.2-1.0); BLOOD UREA NITROGEN 40 MG/DL (7-18); C REACTIVE PROTEIN QUANTITATIV 4.51 MG/DL (0.00-0.30); CALCIUM LEVEL 8.5 MG/DL (8.8-10.2); CARBON DIOXIDE LEVEL 32 MEQ/L (21-32); CHLORIDE LEVEL 102 MEQ/L (98-107); CREATININE FOR GFR 1.67 MG/DL (0.70-1.30); FERRITIN 339 NG/ML (26-388); GLOMERULAR FILTRATION RATE 41.9 (>35); GLUCOSE, FASTING 111 MG/DL (70-100); LDH LACTATE DEHYDROGENASE 195 U/L (87-241); NT-PRO BNP 565 PG/ML (<450); SODIUM LEVEL 139 MEQ/L (136-145); TOTAL PROTEIN 6.1 GM/DL (6.4-8.2); TROPONIN I < 0.02 NG/ML (< 0.10)
[2019-07-25 06:07] LABS: D-DIMER QUANT 365.8 ng/ml (<500)
[2019-07-25 06:23] LABS: ANISOCYTOSIS 2+; BASOPHILS 2 % (0-1); LYMPHOCYTES 5 % (16-44); METAMYELOCYTES 3 % (0-0); MONOCYTES 13 % (0-5); MYELOCYTES 2 % (0-0); NEUTROPHILS 75 % (28-66); OVALOCYTES 1+; PLATELET ESTIMATE NORMAL (NORMAL)
[2019-07-25 08:00] VITALS: BP 131/66
[2019-07-25] MEDS: SLF 3 ML SYR IV SCH ×3 (08:28→22:19)
[2019-07-25] MEDS: SYMBICORT 160/4.5MCG INHALER 6GM INH SCH ×2 (08:33→20:06)
[2019-07-25] MEDS: ENOXAPARIN 30MG/0.3ML SYRINGE (J1650 PER 10MG) SC SCH ×2 (08:33→20:33)
[2019-07-25] MEDS: FUROSEMIDE 40MG/4ML VIAL (J1940) IV SCH (08:34)
[2019-07-25] MEDS: AMIODARONE 200 MG TAB (PACERONE) PO SCH (08:35)
[2019-07-25] MEDS: atenoloL 25 MG TAB PO SCH ×2 (08:35→20:39)
[2019-07-25] MEDS: predniSONE 5 MG TAB PO SCH (08:35)
[2019-07-25] MEDS: OMEPRAZOLE 20 MG CAP PO SCH (08:36)
[2019-07-25] MEDS: MAGNESIUM CHLORIDE 64 MG TABCR (SLO MAG) PO SCH (08:36)
--- NOTE | 2019-07-25 11:13 | IPNPDOC ---
Date Seen The patient was seen on 07/25/19. Progress Note SUBJECTIVE: Incrased nausea with little improvement with phenergan, labs wnl. Started zofran PRN. On 4 L NC. Decreased crackles in bases of bilateral lungs. Tolerating increased ropinirole HS. Denies chest pain, fever, chills, diarrhea OBJECTIVE PHYSICAL EXAMINATION: VS: please see below CONSTITUTIONAL: awake and oriented x 3, appears uncomfortable EYES: PERRLA, EOM intact HENT, MOUTH: Normocephalic, atraumatic, moist mucous membranes, NECK: SUPPLE, no JVD, no lymphadenopathy, no carotid bruit CV: S1S2 normal, no murmurs/rubs/gallops RESPIRATORY: Decreased breath sounds R>L, crackles in bases. no rales/rhonchi GI: BS positive in 4 quadrants, soft, nontender, nondistended, no rebound or guarding, no organomegaly : Deferred MUSCULOSKELETAL: Normal ROM. No cyanosis, clubbing, swelling, joint deformity. Severe pain to touch of b/l lower ext-chronic. Pulses present in all extremi ties, warm to touch INTEGUMENTARY: Intact, no rashes, no lesions, no erythema NEUROLOGIC: Cranial Nerves II-XII are intact, no focal deficits PSYCHIATRIC: Depressed mood and flat affect. LABORATORY DATA: Please see below. CURRENT MEDICATIONS: Please see below ASSESSMENT: This is a 83 y/o M admitted for SARS-associated Coronavirus infection. PLAN: (1) SARS-associated coronavirus infection. On 4 L NC. Inflammatory markers further improved. C/w incentive spirometer, daily labs, Robitussin with codeine, duoneb ATC, albuterol PRN, incentive spirometer Q2 hrs while awake. (2) Nausea - Labs unremarkable, minimal discomfort on exam - adding zofran to phenergan PRN, can alternate use (3) Afib Status: Chronic and rate controlled Problem Text: C/w BB, CCB. (4) HTN (hypertension) Status: Chronic Problem Text: C/w BB, CCB with parameters set. (5) GERD (gastroesophageal reflux disease) Status: Chronic Problem Text: Continue home meds (6) COPD (chronic obstructive pulmonary disease) Status: Chronic Problem Text: Not currently in exacerbation. C/w MDI combivent, albuterol, steroids. (7) CKD stage III. Status: Chronic Problem Text: Cr 1.67, at baseline (1.6-1.8). Daily labs. (8) Restless leg syndrome Status: Chronic Problem Text: Increased ropinirole to 0.5 mg PO HS due to lower ext pain severe. Monitor BP, response. (9) DVT px. Enoxaparin SC Q12 hrs. DISPOSITION: C/w PT/OT. Currently admitted under inpatient status. Plan is discharge home when medically improved. VS, I&O, 24H, Fishbone Vital Signs/I&O Vital Signs Date Time Temp Pulse Resp B/P (MAP) Pulse Ox O2 Delivery O2 Flow Rate FiO2 07/25/19 08:35 69 131/66 07/25/19 08:00 4.0 07/25/19 08:00 98.1 17 97 Nasal Cannula I&O- Last 24 Hours up to 6 AM 07/25/19 06:00 Intake Total 1100 ml Output Total 995 ml Balance 105 ml Laboratory Data 24H LABS Laboratory Tests 2 07/25/19 04:55: Immature Granulocyte % (Auto) , Neutrophils (%) (Auto) , Nucleated Red Blood Cells % (auto) 0.0, Neutrophils 75H, Lymphocytes (Manual) 5L, Monocytes (Manual) 13H, Basophils (Manual) 2H, Metamyelocytes 3H, Myelocytes 2H, Poikilocytosis , Anisocytosis 2+, Ovalocytes 1+, Platelet Estimate NORMAL, Fibrinogen 662H, D- Dimer, Quantitative 365.80, Anion Gap 5L, Glomerular Filtration Rate 41.9, Calcium Level 8.5L, Ferritin 339, Total Bilirubin 0.4, Aspartate Amino Transf (AST/SGOT) 18, Alanine Aminotransferase (ALT/SGPT) 17, Alkaline Phosphatase 90, Lactate Dehydrogenase 195, Troponin I < 0.02, C-Reactive Protein, Quantitative 4.51H, BV-Inl-X-Type Natriuretic Peptide 565H, Total Protein 6.1L, Albumin 2.3L, Albumin/Globulin Ratio 0.61L CBC/BMP Laboratory Tests 07/25/19 04:55 Microbiology Microbiology 07/16/19 Blood Culture - Final, Complete NO GROWTH AFTER 5 DAYS 07/16/19 Blood Culture - Final, Complete NO GROWTH AFTER 5 DAYS Current Medications Current Medications Medications (Trade) Dose Ordered Sig/Sasha Route PRN Reason Start Time Stop Time Status Last Admin Dose Admin Acetaminophen (Tylenol Tab) 650 mg Q4HP PRN PO PAIN OR FEVER 07/16/19 21:30 07/25/19 08:36 Albuterol Sulfate (Proventil, Ventolin Hfa) 2 puff Q2HP PRN INH SHORTNESS OF BREATH 07/20/19 12:15 07/21/19 16:56 Albuterol/ Ipratropium (Combivent Respimat 100-20mcg) 1 puff RQ6H INH 07/20/19 14:00 07/24/19 14:10 Amiodarone HCl (Pacerone, Cordarone) 200 mg DAILY PO 07/17/19 09:00 07/25/19 08:35 Atenolol (Tenormin) 25 mg BID PO 07/16/19 21:00 07/25/19 08:35 Budesonide/ Formoterol Fumarate (Symbicort 160/ 4.5mcg) 2 puff RBID INH 07/16/19 20:00 07/25/19 08:33 Codeine Phosphate/ Guaifenesin (Robitussin Ac) 5 ml Q4HP PRN PO COUGH 07/18/19 08:45 07/25/19 08:33 Diltiazem HCl (Cardizem) 120 mg DAILY PO 07/17/19 09:00 07/25/19 08:35 Enoxaparin Sodium (Lovenox) 30 mg Q12H SC 07/16/19 21:00 07/16/19 22:11 DC Enoxaparin Sodium (Lovenox) 30 mg Q12H SC 07/16/19 21:00 07/25/19 08:33 Finasteride (Proscar) 5 mg QHS PO 07/16/19 21:00 07/24/19 20:09 Furosemide (LASIX injection) 40 mg DAILY IV 07/21/19 09:00 07/25/19 08:34 Home Med (Med Rec Complete!) ASDIRECTED XX 07/16/19 21:45 07/16/19 21:43 DC Hydroxychloroquine Sulfate (Plaquenil) 200 mg BID PO 07/19/19 09:00 07/22/19 21:01 DC 07/22/19 21:10 Hydroxychloroquine Sulfate (Plaquenil) 400 mg Q12H PO 07/18/19 09:00 07/18/19 21:01 DC 07/18/19 20:23 Influenza Virus Vaccine (Flublok Quad(Egg-Free)18y&Older Influenza) 0.5 ml ASDIRECTED IM 07/19/19 09:30 Magnesium Chloride (Slow-Mag) 64 mg DAILY PO 07/17/19 09:00 07/25/19 08:36 Miscellaneous (Unresolved Clarification Entry) SEE LABEL COMMENTS DAILY XX 07/23/19 09:00 07/23/19 07:22 DC Omeprazole (PriLOSEC) 40 mg DAILY PO 07/17/19 09:00 07/25/19 08:36 Ondansetron HCl (ZOFRAN INJection) 4 mg Q4HP PRN IV NAUSEA OR VOMITING 07/17/19 01:00 07/16/19 21:29 DC Ondansetron HCl (Zofran) 4 mg Q6HP PRN PO NAUSEA OR VOMITING 07/25/19 09:00 Polyethylene Glycol (Miralax) 1 pkt DAILY@2100 PO 07/17/19 21:00 07/24/19 20:10 Potassium Chloride (Micro-K Extencaps) 10 meq QPM PO 07/16/19 21:00 07/24/19 20:09 Prednisone (Deltasone) 2.5 mg QHS PO 07/17/19 21:00 07/24/19 20:09 Prednisone (Deltasone) 5 mg QAM PO 07/17/19 09:00 07/25/19 08:35 Promethazine HCl (PHENERGAN INJection) 12.5 mg Q4HP PRN IV NAUSEA 07/16/19 21:30 07/21/19 18:12 DC 07/21/19 05:06 Promethazine HCl (Phenergan) 25 mg Q6HP PRN PO NAUSEA 07/21/19 09:15 07/25/19 08:35 Ropinirole HCl (Requip) 0.25 mg QHS PO 07/17/19 21:00 07/24/19 12:40 DC 07/23/19 20:00 Ropinirole HCl (Requip) 0.5 mg QHS PO 07/24/19 21:00 07/24/19 20:09 Sodium Chloride 500 ml @ 100 mls/hr Q5H IV 07/17/19 04:03 07/17/19 08:29 DC 07/17/19 05:05 Sodium Chloride 1,000 ml @ 100 mls/hr Q10H IV 07/17/19 03:30 07/17/19 04:03 DC Sodium Chloride (Saline Lock Flush) 2 ml ASDIRECTED PRN IV SEE LABEL COMMENTS 07/20/19 15:00 Sodium Chloride (Saline Lock Flush) 2 ml SLF IV 07/20/19 22:00 07/21/19 13:03 DC 07/21/19 05:07 Sodium Chloride (Saline Lock Flush) 2 ml SLF IV 07/21/19 16:00 07/25/19 08:28 Tamsulosin HCl (Flomax) 0.4 mg QHS PO 07/17/19 21:00 07/24/19 20:10 Torsemide (Demadex) 10 mg QHS PO 07/16/19 21:00 07/20/19 12:09 DC 07/19/19 19:33 Tramadol HCl (Ultram) 50 mg TID PRN PO PAIN 07/16/19 23:00 07/22/19 21:10 Allergies Coded Allergies: fluconazole (Verified Allergy, Unknown, UNKNOWN REACTION, 03/31/19) fluticasone (Verified Allergy, Unknown, UNKNOWN REACTION, 03/31/19) metformin (Verified Allergy, Unknown, UNKNOWN REACTION, 03/31/19) petrolatum,white (Verified Allergy, Unknown, ITCH/RASH, 03/31/19) azithromycin (Verified Adverse Reaction, Unknown, LOWERS BP, 03/31/19) clarithromycin (Verified Adverse Reaction, Unknown, LOWERS BP, 03/31/19) procaine (Verified Adverse Reaction, Unknown, DIZZINESS, 03/31/19) Clarice Rodriguez MD Jul 25, 2019 11:13
[2019-07-25] MEDS: ONDANSETRON 4 MG TAB PO PRN (11:46)
[2019-07-25 12:00] VITALS: BP 98/55
[2019-07-25 16:00] VITALS: BP 107/55
[2019-07-25 20:00] VITALS: BP 113/57
[2019-07-25] MEDS: predniSONE 2.5 MG TAB PO SCH (20:33)
[2019-07-25] MEDS: TAMSULOSIN 0.4 MG CAP PO SCH (20:34)
[2019-07-25] MEDS: POTASSIUM CHLORIDE 10 MEQ SR TABLET PO SCH (20:34)
[2019-07-25] MEDS: FINASTERIDE 5 MG TAB PO SCH (20:34)
[2019-07-25] MEDS: rOPINIRole 0.25 MG TAB(REQUIP) PO SCH (20:34)
[2019-07-25] MEDS: traMADol 50 MG TAB PO PRN (20:34)
[2019-07-25] MEDS: MIRALAX *UNIT DOSE* 17GM PACKET PO SCH (20:35)
[2019-07-26] VITALS: BP 117/59
[2019-07-26] MEDS: ACETAMINOPHEN TAB 650MG DOSE (2X325MG) PO PRN (00:28)
[2019-07-26] MEDS: COMBIVENT RESPIMAT 100-20MCG INHALER 4GM INH SCH ×4 (02:00→19:53)
[2019-07-26 05:57] LABS: HEMATOCRIT 29.6 % (42.0-52.0); HEMOGLOBIN 9.7 g/dl (13.5-17.5); MEAN CORPUSCULAR HEMOGLOBIN 29.2 pg (27.0-33.0); MEAN CORPUSCULAR HGB CONC 32.8 g/dl (32.0-36.5); MEAN CORPUSCULAR VOLUME 89.2 fl (80.0-96.0); PLATELET COUNT, AUTOMATED 349 10^3/uL (150-450); RED BLOOD COUNT 3.32 10^6/uL (4.30-6.10); WHITE BLOOD COUNT 13.9 10^3/uL (4.0-10.0)
[2019-07-26 06:10] LABS: D-DIMER QUANT 574.56 ng/ml (<500)
[2019-07-26] MEDS: SLF 3 ML SYR IV SCH ×3 (06:15→22:56)
[2019-07-26 06:29] LABS: EOSINOPHILS 1 % (0-3); LYMPHOCYTES 9 % (16-44); METAMYELOCYTES 2 % (0-0); MONOCYTES 9 % (0-5); MYELOCYTES 3 % (0-0); NEUTROPHILS 74 % (28-66)
[2019-07-26 06:30] LABS: ANISOCYTOSIS 2+; OVALOCYTES 1+; POIKILOCYTOSIS 1+
[2019-07-26 06:31] LABS: PLATELET ESTIMATE NORMAL (NORMAL)
[2019-07-26 06:34] LABS: ALBUMIN 2.3 GM/DL (3.2-5.2); ALT/SGPT 15 U/L (12-78); BILIRUBIN,TOTAL 0.5 MG/DL (0.2-1.0); BLOOD UREA NITROGEN 42 MG/DL (7-18); C REACTIVE PROTEIN QUANTITATIV 3.36 MG/DL (0.00-0.30); CALCIUM LEVEL 8.5 MG/DL (8.8-10.2); CARBON DIOXIDE LEVEL 31 MEQ/L (21-32); CHLORIDE LEVEL 101 MEQ/L (98-107); CREATININE FOR GFR 1.62 MG/DL (0.70-1.30); FERRITIN 319 NG/ML (26-388); GLOMERULAR FILTRATION RATE 43.4 (>35); GLUCOSE, FASTING 115 MG/DL (70-100); LDH LACTATE DEHYDROGENASE 247 U/L (87-241); NT-PRO BNP 537 PG/ML (<450); POTASSIUM SERUM 4.3 MEQ/L (3.5-5.1); SODIUM LEVEL 138 MEQ/L (136-145); TOTAL PROTEIN 5.4 GM/DL (6.4-8.2); TROPONIN I < 0.02 NG/ML (< 0.10)
[2019-07-26] MEDS: SYMBICORT 160/4.5MCG INHALER 6GM INH SCH ×2 (07:30→19:53)
[2019-07-26 08:00] VITALS: BP 117/61
[2019-07-26] MEDS: MAGNESIUM CHLORIDE 64 MG TABCR (SLO MAG) PO SCH (08:25)
[2019-07-26] MEDS: ENOXAPARIN 30MG/0.3ML SYRINGE (J1650 PER 10MG) SC SCH ×2 (08:25→20:35)
[2019-07-26] MEDS: guaiFENesin/CODEINE SYRUP 5 ML UDC PO PRN ×2 (08:25→20:33)
[2019-07-26] MEDS: atenoloL 25 MG TAB PO SCH ×2 (08:26→20:44)
[2019-07-26] MEDS: predniSONE 5 MG TAB PO SCH (08:26)
[2019-07-26] MEDS: AMIODARONE 200 MG TAB (PACERONE) PO SCH (08:26)
[2019-07-26] MEDS: FUROSEMIDE 40MG/4ML VIAL (J1940) IV SCH (08:26)
[2019-07-26] MEDS: ONDANSETRON 4 MG TAB PO PRN ×2 (08:27→17:09)
[2019-07-26] MEDS: OMEPRAZOLE 20 MG CAP PO SCH (08:28)
[2019-07-26 12:00] VITALS: BP 95/57
[2019-07-26 16:00] VITALS: BP 111/56
--- NOTE | 2019-07-26 18:16 | IPNPDOC ---
Date Seen The patient was seen on 07/26/19. Progress Note SUBJECTIVE: Improved nausea with zofran. On 2-3 L NC. Orthostatic with ambulation- BP systolic BP 88 mmHg. States to have improved lower ext pain with increased ropinirole HS. Denies chest pain, fever, chills, diarrhea OBJECTIVE PHYSICAL EXAMINATION: VS: please see below CONSTITUTIONAL: awake and oriented x 3, sitting up at bedside chair EYES: PERRLA, EOM intact HENT, MOUTH: Normocephalic, atraumatic, moist mucous membranes NECK: SUPPLE, no JVD, no lymphadenopathy, no carotid bruit CV: S1S2 normal, no murmurs/rubs/gallops RESPIRATORY: Decreased breath sounds R>L, mild crackles in bases. no rales/rhonchi GI: BS positive in 4 quadrants, soft, nontender, nondistended, no rebound or g uarding, no organomegaly : Deferred MUSCULOSKELETAL: Normal ROM. No cyanosis, clubbing, swelling, joint deformity. No pain to touch of b/l lower ext. Pulses present in all extremities, warm to touch INTEGUMENTARY: Intact, no rashes, no lesions, no erythema NEUROLOGIC: Cranial Nerves II-XII are intact, no focal deficits PSYCHIATRIC: Depressed mood and flat affect. LABORATORY DATA: Please see below. CURRENT MEDICATIONS: Please see below ASSESSMENT: This is a 83 y/o M admitted for SARS-associated Coronavirus infection. PLAN: (1) SARS-associated coronavirus infection. On 2-3 L NC. Hypoxic with activity, dropping to 84-85% but recovering quickly to 90% on 4 L. Inflammatory markers f urther improved. C/w incentive spirometer, daily labs, Robitussin with codeine, duoneb ATC, albuterol PRN, incentive spirometer Q2 hrs while awake. (2) Nausea C/w zofran to phenergan PRN (3) Physical deconditioning Status: Acute Problem Text: Patient continues to demonstrate improved mobility. He ambulated 5 feet and 10 feet today with RW. He reports feeling "faint" while walking, othostatic hypotension noted. (4) Orthostatic hypotension Status: acute Problem Text: Could be 2/2 to ropinirole, BB and CCB have holding parameters. If occurs again with activity, consider modification of meds. (5) GERD (gastroesophageal reflux disease) Status: Chronic Problem Text: Continue home meds (6) COPD (chronic obstructive pulmonary disease) Status: Chronic Problem Text: Not currently in exacerbation. C/w MDI combivent, albuterol, steroids. (7) CKD stage III. Status: Chronic Problem Text: At baseline (1.6-1.8). Daily labs. (8) Restless leg syndrome Status: Chronic Problem Text: Improved pain. C/w ropinirole 0.5 mg PO HS (9) Afib Status: Chronic and rate controlled Problem Text: C/w BB, CCB. (10) DVT px. Enoxaparin SC Q12 hrs. DISPOSITION: C/w PT/OT. Downgraded to "PCU" status but remains in ICU currently. Plan is discharge home or rehab when medically improved. VS, I&O, 24H, Fishbone Vital Signs/I&O Vital Signs Date Time Temp Pulse Resp B/P (MAP) Pulse Ox O2 Delivery O2 Flow Rate FiO2 07/26/19 16:00 97.4 69 17 111/56 (74) 90 Nasal Cannula 2.0 I&O- Last 24 Hours up to 6 AM 07/26/19 06:00 Intake Total 500 ml Output Total 900 ml Balance -400 ml Laboratory Data 24H LABS Laboratory Tests 2 07/26/19 05:28: Immature Granulocyte % (Auto) , Neutrophils (%) (Auto) , Nucleated Red Blood Cells % (auto) 0.0, Neutrophils 74H, Band Neutrophils 2, Lymphocytes (Manual) 9L, Monocytes (Manual) 9H, Eosinophils (Manual) 1, Metamyelocytes 2H, Myelocytes 3H, Poikilocytosis 1+, Basophilic Stippling 1+, Anisocytosis 2+, Ovalocytes 1+, Platelet Estimate NORMAL, Fibrinogen 649H, D-Dimer, Quantitative 574.56H, Anion Gap 6L, Glomerular Filtration Rate 43.4, Calcium Level 8.5L, Ferritin 319, Total Bilirubin 0.5, Aspartate Amino Transf (AST/SGOT) 20, Alanine Aminotransferase (ALT/SGPT) 15, Alkaline Phosphatase 94, Lactate Dehydrogenase 247H, Troponin I < 0.02, C-Reactive Protein, Quantitative 3.36H, BK-Uya-N-Type Natriuretic Peptide 537H, Total Protein 5.4L, Albumin 2.3L, Albumin/Globulin Ratio 0.74L CBC/BMP Laboratory Tests 07/26/19 05:28 Microbiology Microbiology 07/16/19 Blood Culture - Final, Complete NO GROWTH AFTER 5 DAYS 07/16/19 Blood Culture - Final, Complete NO GROWTH AFTER 5 DAYS Current Medications Current Medications Medications (Trade) Dose Ordered Sig/Sasha Route PRN Reason Start Time Stop Time Status Last Admin Dose Admin Acetaminophen (Tylenol Tab) 650 mg Q4HP PRN PO PAIN OR FEVER 07/16/19 21:30 07/26/19 00:28 Albuterol Sulfate (Proventil, Ventolin Hfa) 2 puff Q2HP PRN INH SHORTNESS OF BREATH 07/20/19 12:15 07/21/19 16:56 Albuterol/ Ipratropium (Combivent Respimat 100-20mcg) 1 puff RQ6H INH 07/20/19 14:00 07/26/19 13:32 Amiodarone HCl (Pacerone, Cordarone) 200 mg DAILY PO 07/17/19 09:00 07/26/19 08:26 Atenolol (Tenormin) 25 mg BID PO 07/16/19 21:00 07/26/19 08:26 Budesonide/ Formoterol Fumarate (Symbicort 160/ 4.5mcg) 2 puff RBID INH 07/16/19 20:00 07/26/19 07:30 Codeine Phosphate/ Guaifenesin (Robitussin Ac) 5 ml Q4HP PRN PO COUGH 07/18/19 08:45 07/26/19 08:25 Diltiazem HCl (Cardizem) 120 mg DAILY PO 07/17/19 09:00 07/26/19 08:26 Enoxaparin Sodium (Lovenox) 30 mg Q12H SC 07/16/19 21:00 07/16/19 22:11 DC Enoxaparin Sodium (Lovenox) 30 mg Q12H SC 07/16/19 21:00 07/26/19 08:25 Finasteride (Proscar) 5 mg QHS PO 07/16/19 21:00 07/25/19 20:34 Furosemide (LASIX injection) 40 mg DAILY IV 07/21/19 09:00 07/26/19 08:26 Home Med (Med Rec Complete!) ASDIRECTED XX 07/16/19 21:45 07/16/19 21:43 DC Hydroxychloroquine Sulfate (Plaquenil) 200 mg BID PO 07/19/19 09:00 07/22/19 21:01 DC 07/22/19 21:10 Hydroxychloroquine Sulfate (Plaquenil) 400 mg Q12H PO 07/18/19 09:00 07/18/19 21:01 DC 07/18/19 20:23 Influenza Virus Vaccine (Flublok Quad(Egg-Free)18y&Older Influenza) 0.5 ml ASDIRECTED IM 07/19/19 09:30 Magnesium Chloride (Slow-Mag) 64 mg DAILY PO 07/17/19 09:00 07/26/19 08:25 Miscellaneous (Unresolved Clarification Entry) SEE LABEL COMMENTS DAILY XX 07/23/19 09:00 07/23/19 07:22 DC Omeprazole (PriLOSEC) 40 mg DAILY PO 07/17/19 09:00 07/26/19 08:28 Ondansetron HCl (ZOFRAN INJection) 4 mg Q4HP PRN IV NAUSEA OR VOMITING 07/17/19 01:00 07/16/19 21:29 DC Ondansetron HCl (Zofran) 4 mg Q6HP PRN PO NAUSEA OR VOMITING 07/25/19 09:00 07/26/19 17:09 Polyethylene Glycol (Miralax) 1 pkt DAILY@2100 PO 07/17/19 21:00 07/25/19 20:35 Potassium Chloride (Micro-K Extencaps) 10 meq QPM PO 07/16/19 21:00 07/25/19 20:34 Prednisone (Deltasone) 2.5 mg QHS PO 07/17/19 21:00 07/25/19 20:33 Prednisone (Deltasone) 5 mg QAM PO 07/17/19 09:00 07/26/19 08:26 Promethazine HCl (PHENERGAN INJection) 12.5 mg Q4HP PRN IV NAUSEA 07/16/19 21:30 07/21/19 18:12 DC 07/21/19 05:06 Promethazine HCl (Phenergan) 25 mg Q6HP PRN PO NAUSEA 07/21/19 09:15 07/25/19 15:59 Ropinirole HCl (Requip) 0.25 mg QHS PO 07/17/19 21:00 07/24/19 12:40 DC 07/23/19 20:00 Ropinirole HCl (Requip) 0.5 mg QHS PO 07/24/19 21:00 07/25/19 20:34 Sodium Chloride 500 ml @ 100 mls/hr Q5H IV 07/17/19 04:03 07/17/19 08:29 DC 07/17/19 05:05 Sodium Chloride 1,000 ml @ 100 mls/hr Q10H IV 07/17/19 03:30 07/17/19 04:03 DC Sodium Chloride (Saline Lock Flush) 2 ml ASDIRECTED PRN IV SEE LABEL COMMENTS 07/20/19 15:00 Sodium Chloride (Saline Lock Flush) 2 ml SLF IV 07/20/19 22:00 07/21/19 13:03 DC 07/21/19 05:07 Sodium Chloride (Saline Lock Flush) 2 ml SLF IV 07/21/19 16:00 07/26/19 08:28 Tamsulosin HCl (Flomax) 0.4 mg QHS PO 07/17/19 21:00 07/25/19 20:34 Torsemide (Demadex) 10 mg QHS PO 07/16/19 21:00 07/20/19 12:09 DC 07/19/19 19:33 Tramadol HCl (Ultram) 50 mg TID PRN PO PAIN 07/16/19 23:00 07/25/19 20:34 Allergies Coded Allergies: fluconazole (Verified Allergy, Unknown, UNKNOWN REACTION, 03/31/19) fluticasone (Verified Allergy, Unknown, UNKNOWN REACTION, 03/31/19) metformin (Verified Allergy, Unknown, UNKNOWN REACTION, 03/31/19) petrolatum,white (Verified Allergy, Unknown, ITCH/RASH, 03/31/19) azithromycin (Verified Adverse Reaction, Unknown, LOWERS BP, 03/31/19) clarithromycin (Verified Adverse Reaction, Unknown, LOWERS BP, 03/31/19) procaine (Verified Adverse Reaction, Unknown, DIZZINESS, 03/31/19) Clarice Rodriguez MD Jul 26, 2019 18:16
[2019-07-26 20:00] VITALS: BP 108/81
[2019-07-26] MEDS: POTASSIUM CHLORIDE 10 MEQ SR TABLET PO SCH (20:33)
[2019-07-26] MEDS: FINASTERIDE 5 MG TAB PO SCH (20:33)
[2019-07-26] MEDS: TAMSULOSIN 0.4 MG CAP PO SCH (20:33)
[2019-07-26] MEDS: predniSONE 2.5 MG TAB PO SCH (20:33)
[2019-07-26] MEDS: rOPINIRole 0.25 MG TAB(REQUIP) PO SCH (20:34)
[2019-07-26] MEDS: traMADol 50 MG TAB PO PRN (20:34)
[2019-07-26] MEDS: MIRALAX *UNIT DOSE* 17GM PACKET PO SCH (20:44)
[2019-07-27] VITALS: BP 113/61
[2019-07-27] MEDS: COMBIVENT RESPIMAT 100-20MCG INHALER 4GM INH SCH ×4 (01:26→20:04)
[2019-07-27 04:00] VITALS: BP 123/59
[2019-07-27] MEDS: guaiFENesin/CODEINE SYRUP 5 ML UDC PO PRN ×2 (04:30→20:40)
[2019-07-27 05:34] LABS: HEMATOCRIT 28.6 % (42.0-52.0); HEMOGLOBIN 9.3 g/dl (13.5-17.5); MEAN CORPUSCULAR HEMOGLOBIN 28.8 pg (27.0-33.0); MEAN CORPUSCULAR HGB CONC 32.5 g/dl (32.0-36.5); MEAN CORPUSCULAR VOLUME 88.5 fl (80.0-96.0); PLATELET COUNT, AUTOMATED 340 10^3/uL (150-450); RED BLOOD COUNT 3.23 10^6/uL (4.30-6.10); WHITE BLOOD COUNT 14.8 10^3/uL (4.0-10.0)
[2019-07-27 05:47] LABS: ANISOCYTOSIS 2+; LYMPHOCYTES 10 % (16-44); METAMYELOCYTES 4 % (0-0); MONOCYTES 10 % (0-5); MYELOCYTES 2 % (0-0); NEUTROPHILS 73 % (28-66); PLATELET CLUMPS SMALL AMT; PLATELET ESTIMATE NORMAL (NORMAL)
[2019-07-27 05:48] LABS: OVALOCYTES 1+
[2019-07-27 06:01] LABS: D-DIMER QUANT 425.32 ng/ml (<500)
[2019-07-27 06:04] LABS: ALBUMIN 2.4 GM/DL (3.2-5.2); ALT/SGPT 17 U/L (12-78); BILIRUBIN,TOTAL 0.4 MG/DL (0.2-1.0); BLOOD UREA NITROGEN 41 MG/DL (7-18); C REACTIVE PROTEIN QUANTITATIV 2.54 MG/DL (0.00-0.30); CALCIUM LEVEL 8.1 MG/DL (8.8-10.2); CARBON DIOXIDE LEVEL 31 MEQ/L (21-32); CHLORIDE LEVEL 101 MEQ/L (98-107); CREATININE FOR GFR 1.64 MG/DL (0.70-1.30); FERRITIN 295 NG/ML (26-388); GLOMERULAR FILTRATION RATE 42.8 (>35); GLUCOSE, FASTING 127 MG/DL (70-100); LDH LACTATE DEHYDROGENASE 207 U/L (87-241); NT-PRO BNP 531 PG/ML (<450); POTASSIUM SERUM 4.4 MEQ/L (3.5-5.1); SODIUM LEVEL 138 MEQ/L (136-145); TOTAL PROTEIN 5.4 GM/DL (6.4-8.2); TROPONIN I < 0.02 NG/ML (< 0.10)
[2019-07-27] MEDS: SLF 3 ML SYR IV SCH ×3 (06:12→20:40)
[2019-07-27 08:00] VITALS: BP 114/60
[2019-07-27] MEDS: OMEPRAZOLE 20 MG CAP PO SCH (08:13)
[2019-07-27] MEDS: AMIODARONE 200 MG TAB (PACERONE) PO SCH (08:14)
[2019-07-27] MEDS: predniSONE 5 MG TAB PO SCH (08:14)
[2019-07-27] MEDS: ONDANSETRON 4 MG TAB PO PRN ×2 (08:14→20:39)
[2019-07-27] MEDS: MAGNESIUM CHLORIDE 64 MG TABCR (SLO MAG) PO SCH (08:14)
[2019-07-27] MEDS: atenoloL 25 MG TAB PO SCH ×2 (08:14→20:39)
[2019-07-27] MEDS: FUROSEMIDE 40MG/4ML VIAL (J1940) IV SCH (08:15)
[2019-07-27] MEDS: ENOXAPARIN 30MG/0.3ML SYRINGE (J1650 PER 10MG) SC SCH ×2 (08:15→20:38)
[2019-07-27] MEDS: SYMBICORT 160/4.5MCG INHALER 6GM INH SCH ×2 (08:15→20:04)
--- NOTE | 2019-07-27 11:11 | IPNPDOC ---
Subjective Date Seen The patient was seen on 07/27/19. Subjective Chief Complaint/HPI Patient is feeling comfortable offers no new complaints. Wishes to go home soon General: Denies: ROS Unobtainable, Chills, Night Sweats, Fatigue, Malaise, Normal Appetite, Other Symptoms Constitutional: Denies: Chills, Fever, Malaise, Night Sweats, Weakness, Fatigue, Weight Loss, Lethargy, Other Pulmonary: Denies: Dyspnea, Cough, Pleuritic Chest Pain, Other Symptoms Cardiovascular: Denies: Chest Pain, Palpitations, Orthopnea, Paroxysmal Noc. Dyspnea, Edema, Lt Headedness, Other Symptoms Gastrointestinal: Denies: Nausea, Vomiting, Abdominal Pain, Diarrhea, Constipation, Melena, Hematochezia, Other Symptoms Musculoskeletal: Denies: Neck Pain, Back Pain, Shoulder Pain, Arm Pain, Hand Pain, Leg Pain, Foot Pain, Joint Pain, Muscle Pain, Spasms, Other Symptoms Neurological: Denies: Weakness, Numbness, Incoordination, Change in speech, Confusion, Seizures, Other Symptoms Objective Physical Examination General Exam: Positive: Other (, patient is awake, alert 3, no cardiopulmonary distress) Eye Exam: Positive: PERRLA, Conjunctiva & lids normal, EOMI ENT Exam: Positive: Mucous membr. moist/pink Chest Exam: Positive: Rales (bilateral rales audible) Heart Exam: Positive: Rate Normal, Normal S1, Normal S2 Abdomen Exam: Positive: Normal bowel sounds, Soft, Tenderness (. No tenderness) Skin Exam: Positive: Nl turgor and temperature Assessment /Plan Problems (1) SARS-associated coronavirus infection Problem Text: Patient is clinically improving oxygenation is active in acceptable range We will repeat COVID test after 14 days of treatment, which would be on Friday Continue present care (2) Afib Status: Chronic Problem Text: Patient's A. fib is under well control Continue present medications (3) HTN (hypertension) Status: Chronic Problem Text: Patient beta blockers and calcium channel blockers will be continued with holding parameters DC Lasix, repeat chest x-ray (4) GERD (gastroesophageal reflux disease) Status: Chronic Problem Text: . We will continue patient's home meds (5) COPD (chronic obstructive pulmonary disease) Status: Chronic Problem Text: Patient is clinically improved Continue nebulizer and prednisone Possible discharge to rehabilitation facility once his repeat COVID testing is negative Plan/VTE VTE Prophylaxis Ordered?: Yes VS, I&O, 24H, Fishbone Vital Signs/I&O Vital Signs Date Time Temp Pulse Resp B/P (MAP) Pulse Ox O2 Delivery O2 Flow Rate FiO2 07/27/19 08:00 2.0 07/27/19 08:00 98.3 69 20 114/60 (78) 95 Nasal Cannula I&O- Last 24 Hours up to 6 AM 07/27/19 06:00 Intake Total 1090 ml Output Total 750 ml Balance 340 ml Laboratory Data 24H LABS Laboratory Tests 2 07/27/19 05:16: Immature Granulocyte % (Auto) , Neutrophils (%) (Auto) , Nucleated Red Blood Cells % (auto) 0.0, Neutrophils 73H, Band Neutrophils 1, Lymphocytes (Manual) 10L, Monocytes (Manual) 10H, Metamyelocytes 4H, Myelocytes 2H, Basophilic Stippling 1+, Anisocytosis 2+, Ovalocytes 1+, Platelet Estimate NORMAL, Clumped Platelets SMALL AMT, Fibrinogen 568H, D-Dimer, Quantitative 425.32, Anion Gap 6L, Glomerular Filtration Rate 42.8, Calcium Level 8.1L, Ferritin 295, Total Bilirubin 0.4, Aspartate Amino Transf (AST/SGOT) 17, Alanine Aminotransferase (ALT/SGPT) 17, Alkaline Phosphatase 97, Lactate Dehydrogenase 207, Troponin I < 0.02, C-Reactive Protein, Quantitative 2.54H, ZO-Waq-O-Type Natriuretic Peptide 531H, Total Protein 5.4L, Albumin 2.4L, Albumin/Globulin Ratio 0.80L CBC/BMP Laboratory Tests 07/27/19 05:16 TRENT GREER MD Jul 27, 2019 11:11
[2019-07-27 12:00] VITALS: BP 90/54
--- NOTE | 2019-07-27 14:45 | REP ---
CHEST PORTABLE: AP portable view of the chest is performed. COMPARISON: 07/19/2019 Chronic interstitial fibrosis bilaterally is stable. No superimposed acute infiltrate is seen. The heart is normal in size. There is calcification of the thoracic aorta. Mediastinal silhouette is unchanged. Left pacemaker is unchanged. IMPRESSION: Stable chronic changes without acute infiltrate. Electronically Signed by Judah Schumacher MD 07/27/2019 03:23 P
[2019-07-27 20:29] VITALS: BP 112/55
[2019-07-27] MEDS: rOPINIRole 0.25 MG TAB(REQUIP) PO SCH (20:38)
[2019-07-27] MEDS: FINASTERIDE 5 MG TAB PO SCH (20:38)
[2019-07-27] MEDS: TAMSULOSIN 0.4 MG CAP PO SCH (20:39)
[2019-07-27] MEDS: MIRALAX *UNIT DOSE* 17GM PACKET PO SCH (20:39)
[2019-07-27] MEDS: POTASSIUM CHLORIDE 10 MEQ SR TABLET PO SCH (20:39)
[2019-07-27] MEDS: predniSONE 2.5 MG TAB PO SCH (20:39)
[2019-07-27] MEDS: traMADol 50 MG TAB PO PRN (20:41)
[2019-07-28] MEDS: COMBIVENT RESPIMAT 100-20MCG INHALER 4GM INH SCH ×4 (01:09→20:00)
[2019-07-28 05:00] VITALS: BP 118/59
[2019-07-28] MEDS: ACETAMINOPHEN TAB 650MG DOSE (2X325MG) PO PRN (05:26)
[2019-07-28] MEDS: SLF 3 ML SYR IV SCH ×3 (05:26→20:19)
[2019-07-28 06:00] LABS: HEMATOCRIT 28.7 % (42.0-52.0); HEMOGLOBIN 9.3 g/dl (13.5-17.5); MEAN CORPUSCULAR HEMOGLOBIN 28.8 pg (27.0-33.0); MEAN CORPUSCULAR HGB CONC 32.4 g/dl (32.0-36.5); MEAN CORPUSCULAR VOLUME 88.9 fl (80.0-96.0); PLATELET COUNT, AUTOMATED 379 10^3/uL (150-450); RED BLOOD COUNT 3.23 10^6/uL (4.30-6.10); WHITE BLOOD COUNT 17.8 10^3/uL (4.0-10.0)
[2019-07-28 06:23] LABS: ALBUMIN 2.4 GM/DL (3.2-5.2); ALT/SGPT 18 U/L (12-78); BILIRUBIN,TOTAL 0.3 MG/DL (0.2-1.0); BLOOD UREA NITROGEN 36 MG/DL (7-18); C REACTIVE PROTEIN QUANTITATIV 1.85 MG/DL (0.00-0.30); CALCIUM LEVEL 8.1 MG/DL (8.8-10.2); CARBON DIOXIDE LEVEL 32 MEQ/L (21-32); CHLORIDE LEVEL 103 MEQ/L (98-107); CREATININE FOR GFR 1.59 MG/DL (0.70-1.30); FERRITIN 273 NG/ML (26-388); GLOMERULAR FILTRATION RATE 44.4 (>35); GLUCOSE, FASTING 117 MG/DL (70-100); LDH LACTATE DEHYDROGENASE 206 U/L (87-241); NT-PRO BNP 428 PG/ML (<450); POTASSIUM SERUM 4.4 MEQ/L (3.5-5.1); SODIUM LEVEL 139 MEQ/L (136-145); TOTAL PROTEIN 5.4 GM/DL (6.4-8.2); TROPONIN I < 0.02 NG/ML (< 0.10)
[2019-07-28 06:33] LABS: D-DIMER QUANT 435.15 ng/ml (<500)
[2019-07-28 06:49] LABS: ANISOCYTOSIS 2+; LYMPHOCYTES 8 % (16-44); METAMYELOCYTES 5 % (0-0); MONOCYTES 11 % (0-5); MYELOCYTES 7 % (0-0); NEUTROPHILS 69 % (28-66); PLATELET ESTIMATE NORMAL (NORMAL)
[2019-07-28] MEDS: SYMBICORT 160/4.5MCG INHALER 6GM INH SCH ×2 (07:47→20:30)
[2019-07-28 08:00] VITALS: BP 125/55
[2019-07-28] MEDS: ENOXAPARIN 30MG/0.3ML SYRINGE (J1650 PER 10MG) SC SCH ×2 (08:34→20:18)
[2019-07-28] MEDS: MAGNESIUM CHLORIDE 64 MG TABCR (SLO MAG) PO SCH (08:34)
[2019-07-28] MEDS: OMEPRAZOLE 20 MG CAP PO SCH (08:35)
[2019-07-28] MEDS: predniSONE 5 MG TAB PO SCH (08:35)
[2019-07-28] MEDS: ONDANSETRON 4 MG TAB PO PRN ×2 (08:35→17:13)
[2019-07-28] MEDS: atenoloL 25 MG TAB PO SCH ×2 (08:35→20:17)
[2019-07-28] MEDS: AMIODARONE 200 MG TAB (PACERONE) PO SCH (08:35)
[2019-07-28] MEDS: KETOCONAZOLE 2% CREAM TOP SCH ×2 (09:00→20:18)
--- NOTE | 2019-07-28 11:35 | IPNPDOC ---
Subjective Date Seen The patient was seen on 07/28/19. Subjective Chief Complaint/HPI Patient is comfortable in no distress. Coughing has resolved. No more shortness of breath General: Denies: ROS Unobtainable, Chills, Night Sweats, Fatigue, Malaise, Normal Appetite, Other Symptoms Constitutional: Denies: Chills, Fever, Malaise, Night Sweats, Weakness, Fatigue, Weight Loss, Lethargy, Other Pulmonary: Denies: Dyspnea, Cough, Pleuritic Chest Pain, Other Symptoms Cardiovascular: Denies: Chest Pain, Palpitations, Orthopnea, Paroxysmal Noc. D yspnea, Edema, Lt Headedness, Other Symptoms Gastrointestinal: Denies: Nausea, Vomiting, Abdominal Pain, Diarrhea, Constipation, Melena, Hematochezia, Other Symptoms Genitourinary: Denies: Dysuria, Frequency, Incontinence, Hematuria, Retention, Other Symptoms Hematologic: Denies: Bruising, Bleeding Excessively, Petecchia, Purpura, E nlarged Lymph Nodes, Other Hematologic Neurological: Denies: Weakness, Numbness, Incoordination, Change in speech, Confusion, Seizures, Other Symptoms Objective Physical Examination General Exam: Positive: Other (, patient is awake, alert 3, no cardiopulmonary distress) Eye Exam: Positive: PERRLA, Conjunctiva & lids normal, EOMI ENT Exam: Positive: Mucous membr. moist/pink Chest Exam: Positive: Rales (bilateral rales audible) Heart Exam: Positive: Rate Normal, Normal S1, Normal S2 Abdomen Exam: Positive: Normal bowel sounds, Soft, Tenderness (. No tenderness) Skin Exam: Positive: Nl turgor and temperature Assessment /Plan Problems (1) SARS-associated coronavirus infection Problem Text: Patient is clinically improving oxygenation is active in acceptable range Patient is on 2 L nasal cannula as per home oxygen dosage Transfer to ARU, Once patient is accepted there Continue present care (2) Afib Status: Chronic Problem Text: Patient's A. fib is under well control Continue present medications (3) HTN (hypertension) Status: Chronic Problem Text: Patient beta blockers and calcium channel blockers will be continued with holding parameters DC Lasix, repeat chest x-ray (4) GERD (gastroesophageal reflux disease) Status: Chronic Problem Text: . We will continue patient's home meds (5) COPD (chronic obstructive pulmonary disease) Status: Chronic Problem Text: Patient is clinically improved Continue nebulizer and prednisone Possible discharge to rehabilitation facility once his repeat COVID testing is negative Plan/VTE VTE Prophylaxis Ordered?: Yes VS, I&O, 24H, Fishbonsalina Vital Signs/I&O Vital Signs Date Time Temp Pulse Resp B/P (MAP) Pulse Ox O2 Delivery O2 Flow Rate FiO2 07/28/19 08:36 70 125/55 07/28/19 08:00 97.5 18 98 Nasal Cannula 2.0 I&O- Last 24 Hours up to 6 AM 07/28/19 05:59 Intake Total 700 ml Output Total 900 ml Balance -200 ml Laboratory Data 24H LABS Laboratory Tests 2 07/28/19 05:37: Immature Granulocyte % (Auto) , Neutrophils (%) (Auto) , Nucleated Red Blood Cells % (auto) 0.0, Neutrophils 69H, Lymphocytes (Manual) 8L, Monocytes (Manual) 11H, Metamyelocytes 5H, Myelocytes 7H, Anisocytosis 2+, Platelet Estimate NORMAL, Fibrinogen 584H, D-Dimer, Quantitative 435.15, Anion Gap 4L, Glomerular Filtration Rate 44.4, Calcium Level 8.1L, Ferritin 273, Total Bilirubin 0.3, Aspartate Amino Transf (AST/SGOT) 22, Alanine Aminotransferase (ALT/SGPT) 18, Alkaline Phosphatase 95, Lactate Dehydrogenase 206, Troponin I < 0.02, C- Reactive Protein, Quantitative 1.85H, OT-Lda-T-Type Natriuretic Peptide 428, Total Protein 5.4L, Albumin 2.4L, Albumin/Globulin Ratio 0.80L CBC/BMP Laboratory Tests 07/28/19 05:37 TRENT GREER MD Jul 28, 2019 11:35
[2019-07-28 12:00] VITALS: BP 115/58
[2019-07-28 16:00] VITALS: BP 116/59
[2019-07-28 20:00] VITALS: BP 119/57
[2019-07-28] MEDS: POTASSIUM CHLORIDE 10 MEQ SR TABLET PO SCH (20:17)
[2019-07-28] MEDS: rOPINIRole 0.25 MG TAB(REQUIP) PO SCH (20:17)
[2019-07-28] MEDS: predniSONE 2.5 MG TAB PO SCH (20:17)
[2019-07-28] MEDS: MIRALAX *UNIT DOSE* 17GM PACKET PO SCH (20:17)
[2019-07-28] MEDS: FINASTERIDE 5 MG TAB PO SCH (20:18)
[2019-07-28] MEDS: TAMSULOSIN 0.4 MG CAP PO SCH (20:18)
[2019-07-29] MEDS: ACETAMINOPHEN TAB 650MG DOSE (2X325MG) PO PRN ×2 (01:28→09:18)
[2019-07-29] MEDS: ONDANSETRON 4 MG TAB PO PRN ×2 (01:34→09:18)
[2019-07-29] MEDS: COMBIVENT RESPIMAT 100-20MCG INHALER 4GM INH SCH ×3 (01:34→14:20)
[2019-07-29] MEDS: guaiFENesin/CODEINE SYRUP 5 ML UDC PO PRN ×2 (01:34→09:18)
[2019-07-29 04:00] VITALS: BP 132/60
[2019-07-29] MEDS: SLF 3 ML SYR IV SCH ×2 (05:37→14:16)
[2019-07-29 05:42] LABS: HEMATOCRIT 27.3 % (42.0-52.0); HEMOGLOBIN 8.9 g/dl (13.5-17.5); MEAN CORPUSCULAR HEMOGLOBIN 28.6 pg (27.0-33.0); MEAN CORPUSCULAR HGB CONC 32.6 g/dl (32.0-36.5); MEAN CORPUSCULAR VOLUME 87.8 fl (80.0-96.0); PLATELET COUNT, AUTOMATED 349 10^3/uL (150-450); RED BLOOD COUNT 3.11 10^6/uL (4.30-6.10)
[2019-07-29 06:02] LABS: D-DIMER QUANT 440.05 ng/ml (<500)
[2019-07-29 06:15] LABS: ALBUMIN 2.2 GM/DL (3.2-5.2); ALT/SGPT 17 U/L (12-78); BILIRUBIN,TOTAL 0.4 MG/DL (0.2-1.0); BLOOD UREA NITROGEN 32 MG/DL (7-18); CALCIUM LEVEL 8.4 MG/DL (8.8-10.2); CARBON DIOXIDE LEVEL 29 MEQ/L (21-32); CHLORIDE LEVEL 106 MEQ/L (98-107); CREATININE FOR GFR 1.46 MG/DL (0.70-1.30); FERRITIN 240 NG/ML (26-388); GLUCOSE, FASTING 107 MG/DL (70-100); LDH LACTATE DEHYDROGENASE 307 U/L (87-241); NT-PRO BNP 501 PG/ML (<450); POTASSIUM SERUM 4.5 MEQ/L (3.5-5.1); SODIUM LEVEL 140 MEQ/L (136-145); TOTAL PROTEIN 5.1 GM/DL (6.4-8.2); TROPONIN I < 0.02 NG/ML (< 0.10)
[2019-07-29 06:18] LABS: ANISOCYTOSIS 2+; ATYPICAL LYMPH 1 % (0-5); LYMPHOCYTES 5 % (16-44); METAMYELOCYTES 2 % (0-0); MONOCYTES 14 % (0-5); MYELOCYTES 2 % (0-0); NEUTROPHILS 73 % (28-66); PLATELET ESTIMATE NORMAL (NORMAL)
[2019-07-29 06:19] LABS: OVALOCYTES 1+
[2019-07-29 08:00] VITALS: BP 118/55
[2019-07-29] MEDS: SYMBICORT 160/4.5MCG INHALER 6GM INH SCH (08:04)
[2019-07-29] MEDS: OMEPRAZOLE 20 MG CAP PO SCH (09:18)
[2019-07-29] MEDS: predniSONE 5 MG TAB PO SCH (09:18)
[2019-07-29 09:19] VITALS: BP 118/55
[2019-07-29] MEDS: atenoloL 25 MG TAB PO SCH (09:19)
[2019-07-29] MEDS: MAGNESIUM CHLORIDE 64 MG TABCR (SLO MAG) PO SCH (09:20)
[2019-07-29] MEDS: AMIODARONE 200 MG TAB (PACERONE) PO SCH (09:20)
[2019-07-29] MEDS: ENOXAPARIN 30MG/0.3ML SYRINGE (J1650 PER 10MG) SC SCH (09:20)
[2019-07-29] MEDS: KETOCONAZOLE 2% CREAM TOP SCH (09:21)
[2019-07-29] MEDS ORDERED: SYMB16INH INH (09:50)
[2019-07-29] MEDS ORDERED: PEG1POW PO (09:50)
[2019-07-29] MEDS ORDERED: KETO2CR TOP (09:50)
--- NOTE | 2019-07-29 11:13 | DS.PDOC ---
Discharge Summary General Date of Admission Jul 16, 2019 at 20:59 Date of Discharge 07/29/19 Discharge Summary PROCEDURES PERFORMED DURING STAY: None. ADMITTING DIAGNOSES: 1. Positive COVID infection. DISCHARGE DIAGNOSES: 1. Positive Covid infection, asthma, chronic hypoxic respiratory failure, A. fib with RVR. COMPLICATIONS/CHIEF COMPLAINT: A Fib W/ Rvr. HISTORY OF PRESENT ILLNESS: This is a 83-year-old male with multiple cardiac and lung comorbidities presenting to our ER for nausea and vomiting for the last 24 hours. He does complain of generalized discomfort as well, which he was unable to elaborate further. Patient did not give the best history during the exam for he was very uncomfortable 2/2 nausea. He did endorse his tested positive for Covid but he wasn't tested prior to coming to the ER. He does have 2 L of nasal cannula which he use as needed for his history of asthma and chronic hypoxic respiratory failure. He wasn't really forthcoming during the exam and requested that I come back later further questioning after he gotten some rest. History from his daughter states patient started exhibiting symptoms on Friday evening with dry heaving and nonbilious nonbloody vomiting. At the time he had no fevers but had no appetite to eat or drink including ensure. He noticed symptoms 2 days after his exhibited symptoms and did not get tested for COVID for she got tested prior to him exhibiting symptoms.He didn't have another complaints today.. HOSPITAL COURSE: Patient had a prolonged intracted admission in ICU secondary to positive Covid infection. He was started on supportive care. Oxygen support, BiPAP support, hydroxychloroquine and Zithromax were also started. Patient was followed up by critical care pulmonary during his stay in ICU. Regarding his abdominal symptoms of his Covid he was started on symptomatic care with Zofran and other and antiemetic agents. Patient slowly but progressively responded very well to supportive care and today he is clinically stable to be discharged to acute rehabilitation unit. For further information, please review. Patient is EMR for his last hospital admission. DISCHARGE MEDICATIONS: Please see below. ALLERGIES: Please see below. PHYSICAL EXAMINATION ON DISCHARGE: VITAL SIGNS: Please see below. GENERAL: Within normal limits HEENT: [PERRLA, extraocular intact NECK: Supple CARDIOVASCULAR EXAMINATION: S1, S2, regular RESPIRATORY EXAMINATION: Clear to A&P ABDOMINAL EXAMINATION: Benign EXTREMITIES: No clubbing, cyanosis, edema SKIN: Normal NEUROLOGICAL EXAMINATION: . No focal motor sensory deficit PSYCHIATRIC EXAMINATION: Normal LABORATORY DATA: Please see below. IMAGING: Chest x-ray report: Stable chronic changes without acute infiltrate. PROGNOSIS: Good ACTIVITY: As tolerated. DIET: As tolerated DISCHARGE PLAN: Discharge to acute rehabilitation unit DISPOSITION: . DISCHARGE INSTRUCTIONS: 1. As per discharge instructions. ITEMS TO FOLLOWUP ON ON OUTPATIENT: 1. Follow-up with PCP once discharged from the acute rehabilitation unit. DISCHARGE CONDITION: Stable. TIME SPENT ON DISCHARGE: 35 minutes. Vital Signs/I&Os Vital Signs Date Time Temp Pulse Resp B/P (MAP) Pulse Ox O2 Delivery O2 Flow Rate FiO2 07/29/19 09:19 69 118/55 07/29/19 08:00 2.0 07/29/19 04:00 97.0 18 98 Nasal Cannula I&O- Last 24 Hours up to 6 AM 07/29/19 06:00 Intake Total 680 ml Output Total 675 ml Balance 5 ml Laboratory Data Labs 24H Laboratory Tests 2 07/29/19 05:28: Immature Granulocyte % (Auto) , Neutrophils (%) (Auto) , Nucleated Red Blood Cells % (auto) 0.0, Neutrophils 73H, Band Neutrophils 3, Lymphocytes (Manual) 5L, Monocytes (Manual) 14H, Metamyelocytes 2H, Myelocytes 2H, Atypical Lym phocytes 1, Anisocytosis 2+, Ovalocytes 1+, Platelet Estimate NORMAL, Fibrinogen 547H, D-Dimer, Quantitative 440.05, Anion Gap 5L, Glomerular Filtration Rate 49.0, Calcium Level 8.4L, Ferritin 240, Total Bilirubin 0.4, Aspartate Amino Transf (AST/SGOT) 25, Alanine Aminotransferase (ALT/SGPT) 17, Alkaline Phosphatase 84, Lactate Dehydrogenase 307H, Troponin I < 0.02, C-Reactive Protein, Quantitative 1.50H, OM-Yps-W-Type Natriuretic Peptide 501H, Total Protein 5.1L, Albumin 2.2L, Albumin/Globulin Ratio 0.76L CBC/BMP Laboratory Tests 07/29/19 05:28 Discharge Medications Scheduled Amiodarone HCl (Amiodarone HCl) 200 Mg Tablet, 200 MG PO DAILY, (Reported) Apixaban (Eliquis) 2.5 Mg Tab, 2.5 MG PO BID, (Reported) Aspirin (Aspir 81) 81 Mg Tab, 81 MG PO DAILY, (Reported) Atenolol (Atenolol) 25 Mg Tablet, 25 MG PO BID, (Reported) Budesonide/Formoterol (Symbicort 160-4.5 Mcg Inhaler) 6 Gm Hfa.aer.ad, 2 PUFF INH RBID Diltiazem HCl (Cardizem) 120 Mg Tablet, 120 MG PO DAILY, (Reported) Fenofibrate (Fenofibrate) 160 Mg Tab, 160 MG PO DAILY, (Reported) Finasteride (Finasteride) 5 Mg Tab, 5 MG PO QHS, (Reported) Ketoconazole (Ketoconazole) 15 Gm Cream..g., 1 DOSE TOP BID Magnesium Chloride (Mag64) 64 Mg Tablet.dr, 64 MG PO DAILY, (Reported) Williamson-3 Fatty Acids/Fish Oil (Fish Oil 1,200 mg Softgel) 1 Each Capsule, 1,200 MG PO BID, (Reported) Omeprazole (Omeprazole) 40 Mg Cap, 40 MG PO DAILY, (Reported) Polyethylene Glycol 3350 (Polyethylene Glycol 3350) 17 Gm Powd.pack, 1 PKT PO DAILY@2100 Potassium Chloride (Potassium Chloride) 20 Meq Tab.er.prt, 10 MEQ PO QPM, (Reported) Prednisone (Prednisone) 5 Mg Tab, 5 MG PO QAM, (Reported) Ropinirole HCl (Ropinirole HCl) 0.25 Mg Tablet, 0.25 MG PO QHS, (Reported) Tamsulosin Hcl (Tamsulosin HCl) 0.4 Mg Capsule, 0.4 MG PO QHS, (Reported) ON HOLD SINCE 03/29/19 Torsemide (Torsemide) 10 Mg Tablet, 10 MG PO QHS, (Reported) Scheduled PRN Acetaminophen (Acetaminophen) 500 Mg Tablet, 1,000 MG PO Q8H PRN for PAIN, (Reported) TAKES WITH TRAMADOL PRN Levalbuterol Hydrochloride (Xopenex Hfa) 45 Mcg/Act Aer, 2 PUFF INH Q4H PRN for SOB/WHEEZING, (Reported) Ondansetron HCl (Ondansetron HCl) 4 Mg Tablet, 4 MG PO Q8H PRN for NAUSEA OR VOMITING, (Reported) Tramadol HCl (Tramadol HCl) 50 Mg Tab, 50 MG PO TID PRN for PAIN, (Reported) TAKES WITH TYLENOL PRN Miscellaneous Medications [Patient Comments] , (Reported) PATIENT PROVIDED INFORMATION ON MEDICATIONS AND LAST TIME TAKEN HOWEVER HE WAS VERY UNCOMFORTABLE AND NOT SURE OF SOME MEDICATIONS Allergies Coded Allergies: fluconazole (Verified Allergy, Unknown, UNKNOWN REACTION, 03/31/19) fluticasone (Verified Allergy, Unknown, UNKNOWN REACTION, 03/31/19) metformin (Verified Allergy, Unknown, UNKNOWN REACTION, 03/31/19) petrolatum,white (Verified Allergy, Unknown, ITCH/RASH, 03/31/19) azithromycin (Verified Adverse Reaction, Unknown, LOWERS BP, 03/31/19) clarithromycin (Verified Adverse Reaction, Unknown, LOWERS BP, 03/31/19) procaine (Verified Adverse Reaction, Unknown, DIZZINESS, 03/31/19) TRENT GREER MD Jul 29, 2019 11:13
== END 2019-07-29 17:38 | DRG 178 ==
LOC: EDBD 17:22 → M ED 17:22 → EEVIPCON 20:59 → M ED INP 20:59 → ENRESERVTM 21:33 → ENRESERVDT 21:33 → M ICU 21:59
PROVIDERS: ADMIT General Practice; ATTEND Internal Medicine
DX: U07.1 COVID-19 (principal); J96.11 Chronic respiratory failure with hypoxia; I48.20 Chronic atrial fibrillation, unspecified; J22 Unspecified acute lower respiratory infection; J44.9 Chronic obstructive pulmonary disease, unspecified; I49.5 Sick sinus syndrome; N40.0 Benign prostatic hyperplasia without lower urinary tract symptoms; I13.10 Hypertensive heart and chronic kidney disease without heart failure, with stage 1 through stage 4 chronic kidney disease, or unspecified chronic kidney disease; N18.3 Chronic kidney disease, stage 3 (moderate); K21.9 Gastro-esophageal reflux disease without esophagitis; Z66 Do not resuscitate; E78.5 Hyperlipidemia, unspecified; R11.0 Nausea; I95.1 Orthostatic hypotension; G25.81 Restless legs syndrome; Z95.0 Presence of cardiac pacemaker; Z99.81 Dependence on supplemental oxygen; Z87.891 Personal history of nicotine dependence; Z79.01 Long term (current) use of anticoagulants; Z79.82 Long term (current) use of aspirin; Z79.52 Long term (current) use of systemic steroids; Z79.899 Other long term (current) drug therapy; Z88.1 Allergy status to other antibiotic agents; Z88.8 Allergy status to other drugs, medicaments and biological substances

== ENCOUNTER 2019-07-29 09:42 | Inpatient (IN) | payer MEDICARE ==
[~2019-07-29] VITALS: Ht 170.2 cm; Wt 59.4 kg
[~2019-07-29 09:42] MED LIST changes: +PATIENT COMMENTS
[2019-07-29] MEDS ORDERED: KETO2CR TOP (09:50)
[2019-07-29] MEDS ORDERED: PEG1POW PO (09:50)
[2019-07-29] MEDS ORDERED: SYMB16INH INH (09:50)
[2019-07-29 17:40] VITALS: BP 119/68
[2019-07-29] MEDS ORDERED: BISACODYL 10 MG SUPP PR PRN (18:15)
[2019-07-29] MEDS: COMBIVENT RESPIMAT 100-20MCG INHALER 4GM INH SCH (20:00)
[2019-07-29 20:45] VITALS: BP 119/59
[2019-07-29] MEDS: DOCUSATE SODIUM 100 MG CAP PO SCH (21:00)
[2019-07-29] MEDS ORDERED: COMBIVENT RESPIMAT 100-20MCG INHALER 4GM INH SCH (21:00)
[2019-07-29] MEDS: SENNA 8.6 MG TAB (SENOKOT) PO SCH (21:00)
[2019-07-29] MEDS: rOPINIRole 0.25 MG TAB(REQUIP) PO SCH (21:22)
[2019-07-29] MEDS: atenoloL 25 MG TAB PO SCH (21:23)
[2019-07-29] MEDS: guaiFENesin 200 MG TAB PO SCH (21:23)
[2019-07-29] MEDS: GABAPENTIN 100 MG CAP PO SCH (21:24)
[2019-07-29] MEDS: POTASSIUM CHLORIDE 10 MEQ SR TABLET PO SCH (21:24)
[2019-07-29] MEDS: SUCRALFATE 1 GM TAB PO SCH (21:25)
[2019-07-29] MEDS: APIXABAN 2.5 MG TAB (ELIQUIS) PO SCH (21:25)
[2019-07-29] MEDS: predniSONE 2.5 MG TAB PO SCH (21:27)
[2019-07-29] MEDS: TAMSULOSIN 0.4 MG CAP PO SCH (21:27)
[2019-07-29] MEDS: FINASTERIDE 5 MG TAB PO SCH (21:28)
[2019-07-29] MEDS: REMEDY PHYTOPLEX Z-GUARD PASTE 113GM TUBE (FROM STOREROOM PRODUCT) TOP SCH (21:29)
[2019-07-30] MEDS: RAMELTEON 8 MG TAB (ROZEREM) PO SCH ×2 (00:52→20:26)
[2019-07-30 05:54] VITALS: BP 131/64
[2019-07-30] MEDS: COMBIVENT RESPIMAT 100-20MCG INHALER 4GM INH SCH ×4 (07:18→19:54)
[2019-07-30] MEDS: SUCRALFATE 1 GM TAB PO SCH ×4 (07:50→20:28)
[2019-07-30] MEDS: OMEPRAZOLE 20 MG CAP PO SCH (07:50)
[2019-07-30] MEDS: guaiFENesin 200 MG TAB PO SCH ×3 (07:50→20:27)
[2019-07-30] MEDS: predniSONE 5 MG TAB PO SCH (07:50)
[2019-07-30] MEDS: MAGNESIUM CHLORIDE 64 MG TABCR (SLO MAG) PO SCH (07:51)
[2019-07-30] MEDS: atenoloL 25 MG TAB PO SCH (07:51)
[2019-07-30] MEDS: DOCUSATE SODIUM 100 MG CAP PO SCH ×3 (07:51→20:36)
[2019-07-30] MEDS: ASPIRIN 81 MG ENTERIC TAB PO SCH (07:51)
[2019-07-30] MEDS: APIXABAN 2.5 MG TAB (ELIQUIS) PO SCH ×2 (07:51→20:27)
[2019-07-30] MEDS: AMIODARONE 200 MG TAB (PACERONE) PO SCH (07:51)
[2019-07-30] MEDS: FENOFIBRATE 145 MG TAB (TRICOR) PO SCH (07:51)
[2019-07-30 07:52] VITALS: BP 115/61
[2019-07-30 08:06] LABS: HEMATOCRIT 29.7 % (42.0-52.0); HEMOGLOBIN 9.4 g/dl (13.5-17.5); MEAN CORPUSCULAR HEMOGLOBIN 28.9 pg (27.0-33.0); MEAN CORPUSCULAR HGB CONC 31.6 g/dl (32.0-36.5); MEAN CORPUSCULAR VOLUME 91.4 fl (80.0-96.0); PLATELET COUNT, AUTOMATED 378 10^3/uL (150-450); RED BLOOD COUNT 3.25 10^6/uL (4.30-6.10); WHITE BLOOD COUNT 17.1 10^3/uL (4.0-10.0)
[2019-07-30 08:30] LABS: BASOPHILS 1 % (0-1); LYMPHOCYTES 7 % (16-44); METAMYELOCYTES 5 % (0-0); MONOCYTES 6 % (0-5); MYELOCYTES 8 % (0-0); NEUTROPHILS 69 % (28-66); PLATELET ESTIMATE NORMAL (NORMAL)
[2019-07-30 08:33] LABS: ALBUMIN 2.3 GM/DL (3.2-5.2); BILIRUBIN,TOTAL 0.3 MG/DL (0.2-1.0); CALCIUM LEVEL 8.2 MG/DL (8.8-10.2); CREATININE FOR GFR 1.54 MG/DL (0.70-1.30); POTASSIUM SERUM 4.5 MEQ/L (3.5-5.1); TOTAL PROTEIN 5.2 GM/DL (6.4-8.2)
[2019-07-30] MEDS ORDERED: TORSEMIDE 10 MG TABLET PO SCH (09:00)
[2019-07-30] MEDS ORDERED: FLUBLOK(EGG FREE)(QUAD)INFLUENZA VACC 0.5ML SYRINGE (90682)18YRS&OLDER IM ONE (09:00)
[2019-07-30] MEDS ORDERED: PREVNAR 13 VACCINE SYRINGE (CPT CODE:90670) IM ONE (09:00)
[2019-07-30] MEDS: REMEDY PHYTOPLEX Z-GUARD PASTE 113GM TUBE (FROM STOREROOM PRODUCT) TOP SCH ×3 (09:00→20:29)
[2019-07-30 09:15] LABS: C REACTIVE PROTEIN QUANTITATIV 1.24 MG/DL (0.00-0.30)
[2019-07-30 11:25] VITALS: BP 104/56
--- NOTE | 2019-07-30 12:06 | CR.PDOC ---
General Date of Consultation: July 30, 2019 Referring Provider: JOSEP RAJAN MD Consultation REASON FOR CONSULTATION/CHIEF COMPLAINT: Medical management. HISTORY OF PRESENT ILLNESS: [HISTORY OF PRESENT ILLNESS: This is a 83-year-old male with multiple cardiac and lung comorbidities presenting to our ER for nausea and vomiting for the last 24 hours. He does complain of generalized disco mfort as well, which he was unable to elaborate further. Patient did not give the best history during the exam for he was very uncomfortable 2/2 nausea. He did endorse his tested positive for Covid but he wasn't tested prior to coming to the ER. He does have 2 L of nasal cannula which he use as needed for his history of asthma and chronic hypoxic respiratory failure. He wasn't really forthcoming during the exam and requested that I come back later further questioning after he gotten some rest. History from his daughter states patient started exhibiting symptoms on Friday evening with dry heaving and nonbilious nonbloody vomiting. At the time he had no fevers but had no appetite to eat or drink including ensure. He noticed symptoms 2 days after his exhibited symptoms and did not get tested for COVID for she got tested prior to him exhibiting symptoms. Patient had a prolonged and complex admission in ICU secondary to positive COVID infection. He was started on supportive care. Oxygen support, BiPAP support, hydroxychloroquine and Zithromax were also started. Patient was followed up by critical care pulmonary during his stay in ICU. Regarding his abdominal symptoms of his Covid he was started on symptomatic care with Zofran and other and antiemetic agents. Patient slowly but progressively responded very well to supportive care and yesterday he was transferred to acute rehabilitation unit for further care ALLERGIES: Please see below. HOME MEDICATIONS: Please see below. PAST MEDICAL HISTORY: Asthma, chronic hypoxic respiratory failure on home O2 of 2 L nasal cannula, A. fib, status post cardiac ablation, status post watchman procedure, hypertension, hypertensive heart disease, GERD, hyperlipidemia, CK D, stage III, polycystic kidney disease, bilateral renal cysts, restless leg syndrome, history of hematuria PAST SURGICAL HISTORY: Permanent pacemaker 2 ablation and watchman procedure FAMILY HISTORY: Family history reviewed. 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 Denies alcohol or drugs IVDA REVIEW OF SYSTEMS: CONSTITUTIONAL: No fever, headache. HEENT: . No eye or ear pain. CARDIOVASCULAR: , No palpitation or chest pain. RESPIRATORY: No cough or dyspnea. GENITOURINARY: , No dysuria, frequency. MUSCULOSKELETAL: No muscle aches or pains. GASTROINTESTINAL: No nausea, vomiting or diarrhea . SKIN: No rash. NEUROLOGICAL: . No focal motor or cranial nerve deficit. PSYCHIATRIC: No anxiety or depression. ENDOCRINE: Normal. HEMATOLOGIC/LYMPHATIC: No anemia. ALLERGIC/IMMUNOLOGIC: Normal. PHYSICAL EXAMINATION: VITAL SIGNS: Please see below. GENERAL APPEARANCE: Patient is comfortable in no apparent distress. HEENT: Sheila extraocular muscles intact. RESPIRATORY: Clear to A&P. CARDIOVASCULAR: S1, S2, regular. ABDOMEN: Benign. EXTREMITIES: No clubbing, cyanosis, edema. NEUROLOGICAL: . No focal motor sensory deficit. PSYCHIATRIC: Normal. LABORATORY DATA: Please see below. ASSESSMENT/PLAN: #1 COVID-19 Infection #2 atrial fibrillation with controlled rate #3 hypertension #4. GERD Patient was treated in ICU for positive Covid infection with hydroxychloroquine and Zithromax with complete resolution Patient was also followed up by critical care during his stay in the ICU and cleared for discharge to acute rehabilitation unit Patient's respiratory function is back to baseline. He requires only oxygen 2 L of nasal cannula as per his home requirement Continue all present medications as per discharge instructions Physical therapy and occupational therapy recommendation as per Dr. Crawford Thank you for calling this consult, Dr. Crawford, will gladly follow patient with you Vital Signs/I&O Vital Signs Date Time Temp Pulse Resp B/P (MAP) Pulse Ox O2 Delivery O2 Flow Rate FiO2 07/30/19 11:25 97.0 70 104/56 (72) 93 Nasal Cannula 2.0 07/30/19 05:54 18 I&O- Last 24 Hours up to 6 AM 07/30/19 06:00 Intake Total 350 ml Output Total 300 ml Balance 50 ml Laboratory Data Labs 24H Laboratory Tests 2 07/30/19 07:35: Immature Granulocyte % (Auto) , Neutrophils (%) (Auto) , Nucleated Red Blood Cells % (auto) 0.0, Neutrophils 69H, Band Neutrophils 4, Lymphocytes (Manual) 7L, Monocytes (Manual) 6H, Basophils (Manual) 1, Metamyelocytes 5H, Myelocytes 8H, Platelet Estimate NORMAL, Anion Gap 8, Glomerular Filtration Rate 46.0, Calcium Level 8.2L, Total Bilirubin 0.3, Aspartate Amino Transf (AST/SGOT) 16, Alanine Aminotransferase (ALT/SGPT) 19, Alkaline Phosphatase 91, C-Reactive Protein, Quantitative 1.24H, Total Protein 5.2L, Albumin 2.3L, Albumin/Globulin Ratio 0.79L CBC/BMP Laboratory Tests 07/30/19 07:35 Allergies Coded Allergies: fluconazole (Verified Allergy, Unknown, UNKNOWN REACTION, 03/31/19) fluticasone (Verified Allergy, Unknown, UNKNOWN REACTION, 03/31/19) metformin (Verified Allergy, Unknown, UNKNOWN REACTION, 03/31/19) petrolatum,white (Verified Allergy, Unknown, ITCH/RASH, 03/31/19) azithromycin (Verified Adverse Reaction, Unknown, LOWERS BP, 03/31/19) clarithromycin (Verified Adverse Reaction, Unknown, LOWERS BP, 03/31/19) procaine (Verified Adverse Reaction, Unknown, DIZZINESS, 03/31/19) Home Medications Scheduled Amiodarone HCl (Amiodarone HCl) 200 Mg Tablet, 200 MG PO DAILY, (Reported) Apixaban (Eliquis) 2.5 Mg Tab, 2.5 MG PO BID, (Reported) Aspirin (Aspir 81) 81 Mg Tab, 81 MG PO DAILY, (Reported) Atenolol (Atenolol) 25 Mg Tablet, 25 MG PO BID, (Reported) Budesonide/Formoterol (Symbicort 160-4.5 Mcg Inhaler) 6 Gm Hfa.aer.ad, 2 PUFF INH RBID, #1 Diltiazem HCl (Cardizem) 120 Mg Tablet, 120 MG PO DAILY, (Reported) Fenofibrate (Fenofibrate) 160 Mg Tab, 160 MG PO DAILY, (Reported) Finasteride (Finasteride) 5 Mg Tab, 5 MG PO QHS, (Reported) Ketoconazole (Ketoconazole) 15 Gm Cream..g., 1 DOSE TOP BID, #1 Magnesium Chloride (Mag64) 64 Mg Tablet.dr, 64 MG PO DAILY, (Reported) [place]-3 Fatty Acids/Fish Oil (Fish Oil 1,200 mg Softgel) 1 Each Capsule, 1,200 MG PO BID, (Reported) Omeprazole (Omeprazole) 40 Mg Cap, 40 MG PO DAILY, (Reported) Polyethylene Glycol 3350 (Polyethylene Glycol 3350) 17 Gm Powd.pack, 1 PKT PO DA MATTHEW@2100, #1 Potassium Chloride (Potassium Chloride) 20 Meq Tab.er.prt, 10 MEQ PO QPM, (Reported) Prednisone (Prednisone) 5 Mg Tab, 5 MG PO QAM, (Reported) Ropinirole HCl (Ropinirole HCl) 0.25 Mg Tablet, 0.25 MG PO QHS, (Reported) Tamsulosin Hcl (Tamsulosin HCl) 0.4 Mg Capsule, 0.4 MG PO QHS, (Reported) ON HOLD SINCE 03/29/19 Torsemide (Torsemide) 10 Mg Tablet, 10 MG PO QHS, (Reported) Scheduled PRN Acetaminophen (Acetaminophen) 500 Mg Tablet, 1,000 MG PO Q8H PRN for PAIN, (Reported) TAKES WITH TRAMADOL PRN Levalbuterol Hydrochloride (Xopenex Hfa) 45 Mcg/Act Aer, 2 PUFF INH Q4H PRN for SOB/WHEEZING, (Reported) Ondansetron HCl (Ondansetron HCl) 4 Mg Tablet, 4 MG PO Q8H PRN for NAUSEA OR VOMITING for 5 Days, #30 (Reported) Tramadol HCl (Tramadol HCl) 50 Mg Tab, 50 MG PO TID PRN for PAIN, (Reported) TAKES WITH TYLENOL PRN Miscellaneous Medications [Patient Comments] , (Reported) PATIENT PROVIDED INFORMATION ON MEDICATIONS AND LAST TIME TAKEN HOWEVER HE WAS VERY UNCOMFORTABLE AND NOT SURE OF SOME MEDICATIONS TRENT GREER MD July 30, 2019 12:06
--- NOTE | 2019-07-30 13:28 | HPEPDOC ---
Architectural Project Captain Note DATE OF ADMISSION: 07-29-19 DATE OF SERVICE: 07-29-19 TIME OF ADMISSION: Please refer to physician's admission order. SOURCE OF ADMISSION INFORMATION: [facility] record and patient CHIEF COMPLAINT: Covid-19 infection HISTORY OF PRESENT ILLNESS: 83M pmh COPD on home 02, Afib s/p cardiac ablation with watchman procedure and PM placement (x2) for tach-ofe syndrome , HTN, HLD, CKD3, polycystic kidney disease restless leg syndrome presented to [facility] ED on 07-16-19 with nausea and vomiting with known exposure to his who was Covid-19 positive. He was found to also be Covid-19 positive, was admitted to ICU for telemetry, provided with increased oxygen supplementation, and therapeutic Lovenox for hypercoagulable state. He was febrile with a cough with initial CXR showing, There is basilar fibrotic change, status quo. There are no acute patchy parenchymal opacities or pleural effusions. He did receive Hydroxychloroquine for his ongoing resp iratory systems and Azithromycin was held due to his cardiac history and concern for arrhythmia. His leukocytosis improved, his fever did defervesce, and his 02 supplementation returned to his baseline. He was evaluated by therapy found to have persistent impairments in mobility and ADLs below his prior level of function and deemed medically appropriate for discharge to ARU on 07-29-19. On initial visit patient reports years of feet and toe burning. REVIEW OF SYSTEMS: The following is a completed review of systems and has been reviewed. Review of systems otherwise unremarkable. PAIN: Patient self reports bilat foot pain EYES: No recent vision changes EARS, NOSE, & THROAT: No throat pain, or dysphagia, or rhinorrhea CARDIOVASCULAR: Denies chest pain or palpitations PULMONARY: Denies shortness of breath, +cough GASTROINTESTINAL: Denies constipation/diarrhea GENITOURINARY: +dysuria MUSCULOSKELETAL: generalized weakness NEUROLOGICAL:+restless leg HEMATOLOGICAL: denies easy bruising SKIN: sacral ulcer PSYCHIATRIC: Unremarkable All other review of systems found to be negative. PAST MEDICAL HISTORY: as per hpi PAST SURGICAL HISTORY: as per HPI ALLERGIES: Please see below. MEDICATIONS: Please see below. SOCIAL HISTORY: Ex-smoker/etoh, no illicit drugs DIET: low sodium, fluid restrict PHYSICAL EXAMINATION: VITAL SIGNS: Please see below. GENERAL:[Pleasant and cooperative. No acute distress. HEENT: PERRL. Extraocular movements intact. Clear conjunctiva CARDIOVASCULAR: Regular rate and rhythm. No murmurs, rubs, or gallops LUNGS: +scattered rhonchi ABDOMEN: Soft, nontender, nondistended. Positive bowel sounds. Normal active bowel sounds NEUROLOGICAL: Alert and oriented times three. Cranial nerves II through XII grossly intact. Sensation grossly intact EXTREMITIES: 5\5 strength bilateral upper extremities. 5\5 strength right lower extremity. 5/5 strength in left lower extremity. +pedal pulses bilat SKIN: stage 1 and 2 ulcer sacrum LABORATORY DATA: Please see below. IMAGING:Imaging documentation personally reviewed by record FUNCTIONAL STATUS: Premorbid: Independent with all activities of daily life as well as mobility On Admission: Contact guard ambulation <50 feet, mod assist for lower body dressing, standby assist for toileting. GOALS: Mod-I ambulation household distances, stairs, dressing, bathing, toileting, bathing, medical optimization ASSESSMENT:83-year-old M with past medical history of Afib and who presents status post Covid-19 infection PLAN: 1. PT/OT advance gait and ADL training, strengthen/stretch/maintain ROM all4 limbs, fall recovery, dynamic balance training 2. Neuro: restless leg syndrome, c/u requip 3. Cardiac: hx of afib w/p PM placement for tach-ofe syndrome, c/u Eliquis 2.5 BID, Amiodarone, Cardizem, and Atenolol 25mg BID -suspect chronic CHF, however do not have ECHO on file, c/u diuretics, daily weights, fluid restrict -CAD? c/u ASA 81mg -HLD- c/u tricor 4. resp: s/p course of Plaquenil for Covid-19 respiratory infection, c/u home 02 goal 88-92% for hx of chronic COPD, c/u breathing treatments, guaifenesin, and incentive spirometry, monitor for worsening infection -on daily prednisone, c/u 5. : patient reporting intermittent dysuria will order UA -c/u Proscar and Flomax for BPH, monitor PVRs 6. Pain: tylenol prn, will start gabapentin 100mg qHS for neuropathic bilateral foot pain 7. GI ppx: pilosec and sucralfate -c/u bowel meds -Phenergan prn for nausea 8. DVT ppx: on eliquis, teds 9. Skin- barrier cream 10. Dispo: tbd POST ADMISSION PHYSICIAN EVALUATION: Medical and functional status: Description of medical status, medical assessment: As above. Rehabilitation diagnosis and current and prior cold morbid medical conditions as above. Risk of complications and plans to mitigate them as above. Description of functional status current status is as above. Prior status as above. Status compared to preadmission: There are no clinically significant differences between the patient's current status and the information described on the preadmission screening document. Treatment plan anticipated: Treatment plan is as described above. Required disciplines including physical therapy, occupational therapy, others as noted above. Intensity of services: 3 hours a day, 6 days a week. Special considerations: There are no specific special or safety considerations that would likely preclude immediate implementation of an intensive rehabilitation program or subsequently influence the plan of care. ATTESTATION: Considering all the information above, it is my best judgment that this patient requires intensive rehabilitation therapy as described above and an inpatient hospital environment due to the complexity of nursing, medical, and rehabilitation needs required by the patient. Furthermore, this patient can reasonably be expected to participate in an benefit from an inpatient rehabil itation stay with an interdisciplinary team approach to the delivery of rehabilitation care under the direction and supervision of rehabilitation physician. PROGNOSIS: good ESTIMATED LENGTH OF STAY:7-10 days. PROJECTED DISCHARGE DESTINATION: Home with family support and any durable medical equipment required to increase functional safety and mobility. TIME SPENT COUNSELING AND COORDINATING INITIAL CARE: Greater than 70 minutes. Vital Signs Vital Sign - Last 24 Hours 07/29/19 07/29/19 07/29/19 07/29/19 17:40 20:45 21:23 21:58 Temp 96.2 97.3 Pulse 70 70 70 Resp 18 18 B/P (MAP) 119/68 (85) 119/59 (79) 119/59 Pulse Ox 97 94 O2 Delivery Nasal Cannula Nasal Cannula O2 Flow Rate 2.0 2.0 2.0 07/30/19 07/30/19 07/30/19 07/30/19 05:54 07:49 07:52 09:00 Temp 96.8 Pulse 70 70 70 Resp 18 B/P (MAP) 131/64 (86) 115/61 115/61 (79) Pulse Ox 98 95 O2 Delivery Nasal Cannula Nasal Cannula O2 Flow Rate 2.0 2.0 2.0 07/30/19 11:25 Temp 97.0 Pulse 70 B/P (MAP) 104/56 (72) Pulse Ox 93 O2 Delivery Nasal Cannula O2 Flow Rate 2.0 Laboratory Data CBC/BMP Laboratory Tests 07/30/19 07:35 Labs 24H Laboratory Tests 2 07/30/19 07:35: Immature Granulocyte % (Auto) , Neutrophils (%) (Auto) , Nucleated Red Blood Ce lls % (auto) 0.0, Neutrophils 69H, Band Neutrophils 4, Lymphocytes (Manual) 7L, Monocytes (Manual) 6H, Basophils (Manual) 1, Metamyelocytes 5H, Myelocytes 8H, Platelet Estimate NORMAL, Anion Gap 8, Glomerular Filtration Rate 46.0, Calcium Level 8.2L, Total Bilirubin 0.3, Aspartate Amino Transf (AST/SGOT) 16, Alanine Aminotransferase (ALT/SGPT) 19, Alkaline Phosphatase 91, C-Reactive Protein, Quantitative 1.24H, Total Protein 5.2L, Albumin 2.3L, Albumin/Globulin Ratio 0.79L Microbiology Microbiology 07/30/19 Blood Culture, Received Pending 07/30/19 Blood Culture, Received Pending Home Medications Scheduled Amiodarone HCl (Amiodarone HCl) 200 Mg Tablet, 200 MG PO DAILY, (Reported) Apixaban (Eliquis) 2.5 Mg Tab, 2.5 MG PO BID, (Reported) Aspirin (Aspir 81) 81 Mg Tab, 81 MG PO DAILY, (Reported) Atenolol (Atenolol) 25 Mg Tablet, 25 MG PO BID, (Reported) Budesonide/Formoterol (Symbicort 160-4.5 Mcg Inhaler) 6 Gm Hfa.aer.ad, 2 PUFF INH RBID Diltiazem HCl (Cardizem) 120 Mg Tablet, 120 MG PO DAILY, (Reported) Fenofibrate (Fenofibrate) 160 Mg Tab, 160 MG PO DAILY, (Reported) Finasteride (Finasteride) 5 Mg Tab, 5 MG PO QHS, (Reported) Ketoconazole (Ketoconazole) 15 Gm Cream..g., 1 DOSE TOP BID Magnesium Chloride (Mag64) 64 Mg Tablet.dr, 64 MG PO DAILY, (Reported) [place]-3 Fatty Acids/Fish Oil (Fish Oil 1,200 mg Softgel) 1 Each Capsule, 1,200 MG PO BID, (Reported) Omeprazole (Omeprazole) 40 Mg Cap, 40 MG PO DAILY, (Reported) Polyethylene Glycol 3350 (Polyethylene Glycol 3350) 17 Gm Powd.pack, 1 PKT PO DAILY@2100 Potassium Chloride (Potassium Chloride) 20 Meq Tab.er.prt, 10 MEQ PO QPM, (Repo rted) Prednisone (Prednisone) 5 Mg Tab, 5 MG PO QAM, (Reported) Ropinirole HCl (Ropinirole HCl) 0.25 Mg Tablet, 0.25 MG PO QHS, (Reported) Tamsulosin Hcl (Tamsulosin HCl) 0.4 Mg Capsule, 0.4 MG PO QHS, (Reported) ON HOLD SINCE 03/29/19 Torsemide (Torsemide) 10 Mg Tablet, 10 MG PO QHS, (Reported) Scheduled PRN Acetaminophen (Acetaminophen) 500 Mg Tablet, 1,000 MG PO Q8H PRN for PAIN, (Reported) TAKES WITH TRAMADOL PRN Levalbuterol Hydrochloride (Xopenex Hfa) 45 Mcg/Act Aer, 2 PUFF INH Q4H PRN for SOB/WHEEZING, (Reported) Ondansetron HCl (Ondansetron HCl) 4 Mg Tablet, 4 MG PO Q8H PRN for NAUSEA OR VOMITING, (Reported) Tramadol HCl (Tramadol HCl) 50 Mg Tab, 50 MG PO TID PRN for PAIN, (Reported) TAKES WITH TYLENOL PRN Allergies Coded Allergies: fluconazole (Verified Allergy, Unknown, UNKNOWN REACTION, 03/31/19) fluticasone (Verified Allergy, Unknown, UNKNOWN REACTION, 03/31/19) metformin (Verified Allergy, Unknown, UNKNOWN REACTION, 03/31/19) petrolatum,white (Verified Allergy, Unknown, ITCH/RASH, 03/31/19) azithromycin (Verified Adverse Reaction, Unknown, LOWERS BP, 03/31/19) clarithromycin (Verified Adverse Reaction, Unknown, LOWERS BP, 03/31/19) procaine (Verified Adverse Reaction, Unknown, DIZZINESS, 03/31/19) A-FIB/CHADSVASC A-FIB History Current/History of A-Fib/PAF?: Yes Current PO Anticoag Therapy: Yes JOSEP RAJAN MD July 30, 2019 13:28
--- NOTE | 2019-07-30 13:34 | IPNPDOC ---
PM&R Progress Note DATE OF SERVICE: July 30, 2019 Director Of Recreation Therapy Progress Note Subjective: Patient reported he has been dizzy during the daytime since his pacemaker placement, denies chest pain. He is agreeable to lowering his atenolol and diuretic dosing to see if this relieves his ongoing symptoms. REVIEW OF SYSTEMS: The following is a completed review of systems and has been reviewed. Review of systems otherwise unremarkable. PAIN: Patient self reports bilat foot pain EYES: No recent vision changes EARS, NOSE, & THROAT: No throat pain, or dysphagia, or rhinorrhea CARDIOVASCULAR: Denies chest pain or palpitations PULMONARY: Denies shortness of breath, +cough GASTROINTESTINAL: Denies constipation/diarrhea GENITOURINARY: +dysuria MUSCULOSKELETAL: generalized weakness NEUROLOGICAL:+restless leg HEMATOLOGICAL: denies easy bruising SKIN: sacral ulcer PSYCHIATRIC: Unremarkable All other review of systems found to be negative. PHYSICAL EXAMINATION: VITAL SIGNS: Please see below. GENERAL:Pleasant and cooperative. No acute distress. HEENT: PERRL. Extraocular movements intact. Clear conjunctiva CARDIOVASCULAR: Regular rate and rhythm. No murmurs, rubs, or gallops LUNGS: +scattered rhonchi ABDOMEN: Soft, nontender, nondistended. Positive bowel sounds. Normal active bowel sounds NEUROLOGICAL: Alert and oriented times three. Cranial nerves II through XII grossly intact. Sensation grossly intact EXTREMITIES: 5\5 strength bilateral upper extremities. 5\5 strength right lower extremity. 5/5 strength in left lower extremity. +pedal pulses bilat SKIN: stage 1 and 2 ulcer sacrum ASSESSMENT:83-year-old M with past medical history of Afib and who presents status post Covid-19 infection PLAN: 1. PT/OT advance gait and ADL training, strengthen/stretch/maintain ROM all4 limbs, fall recovery, dynamic balance training 2. Neuro: restless leg syndrome, c/u requip 3. 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 c/u ASA 81mg -HLD- c/u tricor 4. resp: s/p course of Plaquenil for Covid-19 respiratory infection, c/u home 02 goal 88-92% for hx of chronic COPD, c/u breathing treatments, guaifenesin, and incentive spirometry, monitor for worsening infection -on daily prednisone, c/u 5. : patient reporting intermittent dysuria, ordered UA -c/u Proscar and Flomax for BPH, monitor PVRs 6. Pain: tylenol prn, c/u gabapentin 100mg qHS for neuropathic bilateral foot pain 7. GI ppx: pilosec and sucralfate -c/u bowel meds -Phenergan prn for nausea 8. DVT ppx: on eliquis, teds 9. Skin- barrier cream 10. Renal: hx of CKD monitor for DEVAN 11. Leukocytosis: overall has improved from initial admission, but still elevated to 17, may be due to steroids, CRP has trended down 1.24, -also suspect UTI-UA/Cx pending 11. Dispo: tbd Allergies Coded Allergies: fluconazole (Verified Allergy, Unknown, UNKNOWN REACTION, 03/31/19) fluticasone (Verified Allergy, Unknown, UNKNOWN REACTION, 03/31/19) metformin (Verified Allergy, Unknown, UNKNOWN REACTION, 03/31/19) petrolatum,white (Verified Allergy, Unknown, ITCH/RASH, 03/31/19) azithromycin (Verified Adverse Reaction, Unknown, LOWERS BP, 03/31/19) clarithromycin (Verified Adverse Reaction, Unknown, LOWERS BP, 03/31/19) procaine (Verified Adverse Reaction, Unknown, DIZZINESS, 03/31/19) Vital Signs Vital Signs Date Time Temp Pulse Resp B/P (MAP) Pulse Ox O2 Delivery O2 Flow Rate FiO2 07/30/19 11:25 97.0 70 104/56 (72) 93 Nasal Cannula 2.0 07/30/19 05:54 18 Laboratory Data CBC/BMP Laboratory Tests 07/30/19 07:35 Labs 24H Laboratory Tests 2 07/30/19 07:35: Immature Granulocyte % (Auto) , Neutrophils (%) (Auto) , Nucleated Red Blood Cells % (auto) 0.0, Neutrophils 69H, Band Neutrophils 4, Lymphocytes (Manual) 7L, Monocytes (Manual) 6H, Basophils (Manual) 1, Metamyelocytes 5H, Myelocytes 8H, Platelet Estimate NORMAL, Anion Gap 8, Glomerular Filtration Rate 46.0, Calcium Level 8.2L, Total Bilirubin 0.3, Aspartate Amino Transf (AST/SGOT) 16, Alanine Aminotransferase (ALT/SGPT) 19, Alkaline Phosphatase 91, C-Reactive Protein, Quantitative 1.24H, Total Protein 5.2L, Albumin 2.3L, Albumin/Globulin Ratio 0.79L Microbiology Microbiology 07/30/19 Blood Culture, Received Pending 07/30/19 Blood Culture, Received Pending Current Medications Current Medications Current Medications Medications (Trade) Dose Ordered Sig/Sasha Route PRN Reason Start Time Stop Time Status Last Admin Dose Admin Acetaminophen (Tylenol Tab) 650 mg Q4HP PRN PO fever/MILD PAIN (PS 1-4) 07/29/19 18:15 Al Hydrox/Mg Hydrox/Simethicone (Mylanta) 30 ml Q4HP PRN PO DYSPEPSIA 07/29/19 18:15 Albuterol/ Ipratropium (Combivent Respimat 100-20mcg) 1 puff QID INH 07/29/19 21:00 Cancel Albuterol/ Ipratropium (Combivent Respimat 100-20mcg) 1 puff RQID INH 07/29/19 20:00 07/30/19 07:18 Amiodarone HCl (Pacerone, Cordarone) 200 mg DAILY PO 07/30/19 09:00 07/30/19 07:51 Apixaban (Eliquis) 2.5 mg BID PO 07/29/19 21:00 07/30/19 07:51 Aspirin (Ecotrin) 81 mg DAILY PO 07/30/19 09:00 07/30/19 07:51 Atenolol (Tenormin) 25 mg BID PO 07/29/19 21:00 07/30/19 10:52 DC 07/30/19 07:51 Atenolol (Tenormin) 25 mg DAILY PO 07/31/19 09:00 Bisacodyl (Dulcolax Suppository) 10 mg DAILYPRN PRN [place] CONSTIPATION 07/29/19 18:15 Diltiazem HCl (Cardizem Cd) 120 mg DAILY PO 07/30/19 09:00 07/30/19 07:49 Docusate Sodium (Colace) 100 mg BID PO 07/29/19 21:00 07/30/19 07:51 Fenofibrate (Tricor) 145 mg DAILY PO 07/30/19 09:00 07/30/19 07:51 Finasteride (Proscar) 5 mg QHS PO 07/29/19 21:00 07/29/19 21:28 Gabapentin (Neurontin) 100 mg QHS PO 07/29/19 21:00 07/29/19 21:24 Guaifenesin (Robitussin Tab) 400 mg TID PO 07/29/19 21:00 07/30/19 07:50 Magnesium Chloride (Slow-Mag) 64 mg DAILY PO 07/30/19 09:00 07/30/19 07:51 Omeprazole (PriLOSEC) 40 mg DAILY PO 07/30/19 09:00 07/30/19 07:50 Potassium Chloride (Micro-K Extencaps) 10 meq QHS PO 07/29/19 21:00 07/29/19 21:24 Prednisone (Deltasone) 2.5 mg QPM PO 07/29/19 21:00 07/29/19 21:27 Prednisone (Deltasone) 5 mg QAM PO 07/30/19 09:00 07/30/19 07:50 Promethazine HCl (Phenergan) 25 mg Q6HP PRN PO nausea 07/29/19 18:15 Ramelteon (Rozerem) 8 mg QHS PO 07/30/19 00:45 07/30/19 00:52 Ropinirole HCl (Requip) 0.5 mg QHS PO 07/29/19 21:00 07/29/19 21:22 Senna (Senokot) 1 tab QHS PO 07/29/19 21:00 Sucralfate (Carafate) 1 gm ACHS PO 07/29/19 21:00 07/30/19 11:20 Tamsulosin HCl (Flomax) 0.4 mg QHS PO 07/29/19 21:00 07/29/19 21:27 Torsemide (Demadex) 10 mg DAILY PO 07/30/19 09:00 07/30/19 10:53 DC 07/30/19 07:50 Torsemide (Demadex) 10 mg Q2D PO 08/01/19 09:00 JOSEP RAJAN MD July 30, 2019 13:34
[2019-07-30 14:00] VITALS: BP 110/62
[2019-07-30] MEDS: LevoFLOXacin 750 MG TABLET PO SCH (16:48)
[2019-07-30] MEDS: LACTOBACILLUS ACIDOPHILUS CAP (BACID) PO SCH (16:48)
[2019-07-30 19:40] VITALS: BP 112/56
[2019-07-30] MEDS: TAMSULOSIN 0.4 MG CAP PO SCH (20:25)
[2019-07-30] MEDS: predniSONE 2.5 MG TAB PO SCH (20:26)
[2019-07-30] MEDS: GABAPENTIN 100 MG CAP PO SCH (20:26)
[2019-07-30] MEDS: POTASSIUM CHLORIDE 10 MEQ SR TABLET PO SCH (20:26)
[2019-07-30] MEDS: ACETAMINOPHEN TAB 650MG DOSE (2X325MG) PO PRN (20:27)
[2019-07-30] MEDS: FINASTERIDE 5 MG TAB PO SCH (20:28)
[2019-07-30] MEDS: rOPINIRole 0.25 MG TAB(REQUIP) PO SCH (20:29)
[2019-07-30] MEDS: SENNA 8.6 MG TAB (SENOKOT) PO SCH (20:29)
[2019-07-31 05:52] VITALS: BP 105/57
[2019-07-31] MEDS: COMBIVENT RESPIMAT 100-20MCG INHALER 4GM INH SCH ×4 (07:42→19:38)
[2019-07-31 08:30] VITALS: BP 137/65
[2019-07-31] MEDS: guaiFENesin 200 MG TAB PO SCH ×3 (08:31→20:22)
[2019-07-31] MEDS: MAGNESIUM CHLORIDE 64 MG TABCR (SLO MAG) PO SCH (08:32)
[2019-07-31] MEDS: LACTOBACILLUS ACIDOPHILUS CAP (BACID) PO SCH ×3 (08:32→16:43)
[2019-07-31] MEDS: ASPIRIN 81 MG ENTERIC TAB PO SCH (08:32)
[2019-07-31 08:33] VITALS: BP 88/58
[2019-07-31] MEDS: predniSONE 5 MG TAB PO SCH (08:33)
[2019-07-31] MEDS: FENOFIBRATE 145 MG TAB (TRICOR) PO SCH (08:33)
[2019-07-31] MEDS: OMEPRAZOLE 20 MG CAP PO SCH (08:33)
[2019-07-31] MEDS: SUCRALFATE 1 GM TAB PO SCH ×4 (08:33→20:21)
[2019-07-31] MEDS: DOCUSATE SODIUM 100 MG CAP PO SCH ×2 (08:34→20:21)
[2019-07-31] MEDS: APIXABAN 2.5 MG TAB (ELIQUIS) PO SCH ×2 (08:34→20:21)
[2019-07-31 08:36] VITALS: BP 82/50
[2019-07-31] MEDS: atenoloL 25 MG TAB PO SCH (09:00)
[2019-07-31] MEDS: REMEDY PHYTOPLEX Z-GUARD PASTE 113GM TUBE (FROM STOREROOM PRODUCT) TOP SCH ×3 (09:12→20:23)
[2019-07-31] MEDS: AMIODARONE 200 MG TAB (PACERONE) PO SCH (09:41)
[2019-07-31] MEDS: PROMETHAZINE 25 MG TAB PO PRN (13:06)
[2019-07-31 14:01] VITALS: BP 138/64
[2019-07-31] MEDS: SODIUM CHLORIDE NASAL 0.65% SPRAY BTL (OCEAN) SCH ×2 (16:44→20:23)
[2019-07-31] MEDS: MAALOX 30 ML SUSP *UDC PO PRN (17:34)
[2019-07-31 19:27] VITALS: BP 125/66
[2019-07-31] MEDS: RAMELTEON 8 MG TAB (ROZEREM) PO SCH (20:21)
[2019-07-31] MEDS: POTASSIUM CHLORIDE 10 MEQ SR TABLET PO SCH (20:21)
[2019-07-31] MEDS: rOPINIRole 0.25 MG TAB(REQUIP) PO SCH (20:21)
[2019-07-31] MEDS: TAMSULOSIN 0.4 MG CAP PO SCH (20:21)
[2019-07-31] MEDS: SENNA 8.6 MG TAB (SENOKOT) PO SCH (20:21)
[2019-07-31] MEDS: GABAPENTIN 100 MG CAP PO SCH (20:22)
[2019-07-31] MEDS: ACETAMINOPHEN TAB 650MG DOSE (2X325MG) PO PRN (20:22)
[2019-07-31] MEDS: predniSONE 2.5 MG TAB PO SCH (20:22)
[2019-07-31] MEDS: FINASTERIDE 5 MG TAB PO SCH (20:22)
[2019-08-01 06:13] VITALS: BP 117/61
[2019-08-01] MEDS: COMBIVENT RESPIMAT 100-20MCG INHALER 4GM INH SCH ×4 (07:16→19:27)
[2019-08-01] MEDS: APIXABAN 2.5 MG TAB (ELIQUIS) PO SCH ×2 (08:08→19:53)
[2019-08-01] MEDS: guaiFENesin 200 MG TAB PO SCH ×3 (08:08→19:53)
[2019-08-01] MEDS: LACTOBACILLUS ACIDOPHILUS CAP (BACID) PO SCH ×3 (08:08→17:31)
[2019-08-01] MEDS: MAGNESIUM CHLORIDE 64 MG TABCR (SLO MAG) PO SCH (08:08)
[2019-08-01] MEDS: AMIODARONE 200 MG TAB (PACERONE) PO SCH (08:08)
[2019-08-01] MEDS: ASPIRIN 81 MG ENTERIC TAB PO SCH (08:08)
[2019-08-01] MEDS: FENOFIBRATE 145 MG TAB (TRICOR) PO SCH (08:08)
[2019-08-01] MEDS: OMEPRAZOLE 20 MG CAP PO SCH (08:08)
[2019-08-01] MEDS: predniSONE 5 MG TAB PO SCH (08:10)
[2019-08-01] MEDS: atenoloL 25 MG TAB PO SCH (08:10)
[2019-08-01] MEDS: DOCUSATE SODIUM 100 MG CAP PO SCH ×2 (08:11→19:53)
[2019-08-01] MEDS: SUCRALFATE 1 GM TAB PO SCH ×4 (08:11→19:54)
[2019-08-01] MEDS: REMEDY PHYTOPLEX Z-GUARD PASTE 113GM TUBE (FROM STOREROOM PRODUCT) TOP SCH ×3 (08:11→19:55)
[2019-08-01] MEDS: TORSEMIDE 10 MG TABLET PO SCH (08:11)
[2019-08-01] MEDS: SODIUM CHLORIDE NASAL 0.65% SPRAY BTL (OCEAN) SCH ×3 (08:11→19:55)
[2019-08-01 14:43] VITALS: BP 116/63
[2019-08-01] MEDS: MAALOX 30 ML SUSP *UDC PO PRN ×2 (17:30→23:45)
[2019-08-01] MEDS: LevoFLOXacin 750 MG TABLET PO SCH (17:31)
[2019-08-01 19:21] VITALS: BP 123/60
[2019-08-01] MEDS: SENNA 8.6 MG TAB (SENOKOT) PO SCH (19:53)
[2019-08-01] MEDS: predniSONE 2.5 MG TAB PO SCH (19:53)
[2019-08-01] MEDS: TAMSULOSIN 0.4 MG CAP PO SCH (19:53)
[2019-08-01] MEDS: RAMELTEON 8 MG TAB (ROZEREM) PO SCH (19:53)
[2019-08-01] MEDS: rOPINIRole 0.25 MG TAB(REQUIP) PO SCH (19:54)
[2019-08-01] MEDS: ACETAMINOPHEN TAB 650MG DOSE (2X325MG) PO PRN (19:54)
[2019-08-01] MEDS: GABAPENTIN 100 MG CAP PO SCH (19:54)
[2019-08-01] MEDS: POTASSIUM CHLORIDE 10 MEQ SR TABLET PO SCH (19:55)
[2019-08-01] MEDS: FINASTERIDE 5 MG TAB PO SCH (19:55)
[2019-08-02 06:25] VITALS: BP 118/56
[2019-08-02 06:46] LABS: HEMATOCRIT 27.5 % (42.0-52.0); HEMOGLOBIN 8.7 g/dl (13.5-17.5); MEAN CORPUSCULAR HEMOGLOBIN 28.9 pg (27.0-33.0); MEAN CORPUSCULAR HGB CONC 31.6 g/dl (32.0-36.5); MEAN CORPUSCULAR VOLUME 91.4 fl (80.0-96.0); PLATELET COUNT, AUTOMATED 289 10^3/uL (150-450); RED BLOOD COUNT 3.01 10^6/uL (4.30-6.10); WHITE BLOOD COUNT 12.9 10^3/uL (4.0-10.0)
[2019-08-02 07:07] LABS: C REACTIVE PROTEIN QUANTITATIV 1.2 MG/DL (0.00-0.30); CALCIUM LEVEL 8.1 MG/DL (8.8-10.2); CREATININE FOR GFR 1.3 MG/DL (0.70-1.30); POTASSIUM SERUM 4.6 MEQ/L (3.5-5.1)
[2019-08-02 07:12] LABS: BASOPHILS 2 % (0-1); LYMPHOCYTES 6 % (16-44); METAMYELOCYTES 4 % (0-0); MICROCYTOSIS 2+; MONOCYTES 12 % (0-5); NEUTROPHILS 76 % (28-66); PLATELET ESTIMATE NORMAL (NORMAL)
[2019-08-02] MEDS: COMBIVENT RESPIMAT 100-20MCG INHALER 4GM INH SCH ×4 (07:44→19:58)
[2019-08-02] MEDS: MAGNESIUM CHLORIDE 64 MG TABCR (SLO MAG) PO SCH (08:16)
[2019-08-02] MEDS: OMEPRAZOLE 20 MG CAP PO SCH (08:16)
[2019-08-02] MEDS: ASPIRIN 81 MG ENTERIC TAB PO SCH (08:17)
[2019-08-02] MEDS: DOCUSATE SODIUM 100 MG CAP PO SCH ×2 (08:17→20:36)
[2019-08-02] MEDS: SUCRALFATE 1 GM TAB PO SCH ×4 (08:17→20:36)
[2019-08-02] MEDS: guaiFENesin 200 MG TAB PO SCH ×3 (08:17→20:37)
[2019-08-02] MEDS: MAALOX 30 ML SUSP *UDC PO PRN (08:17)
[2019-08-02] MEDS: LACTOBACILLUS ACIDOPHILUS CAP (BACID) PO SCH ×3 (08:17→18:04)
[2019-08-02] MEDS: FENOFIBRATE 145 MG TAB (TRICOR) PO SCH (08:17)
[2019-08-02] MEDS: predniSONE 5 MG TAB PO SCH (08:18)
[2019-08-02] MEDS: APIXABAN 2.5 MG TAB (ELIQUIS) PO SCH ×2 (08:18→20:36)
[2019-08-02] MEDS: atenoloL 25 MG TAB PO SCH (08:18)
[2019-08-02] MEDS: AMIODARONE 200 MG TAB (PACERONE) PO SCH (08:18)
[2019-08-02] MEDS: SODIUM CHLORIDE NASAL 0.65% SPRAY BTL (OCEAN) SCH ×3 (08:19→20:38)
[2019-08-02] MEDS: REMEDY PHYTOPLEX Z-GUARD PASTE 113GM TUBE (FROM STOREROOM PRODUCT) TOP SCH ×3 (08:19→20:38)
[2019-08-02] MEDS: FERROUS SULFATE 325MG TAB PO SCH (12:15)
[2019-08-02] MEDS: ONDANSETRON 4 MG ORAL DISINTEGRATING TAB SL PRN ×2 (12:37→20:35)
[2019-08-02 14:00] VITALS: BP 100/58
--- NOTE | 2019-08-02 16:45 | IPNPDOC ---
PM&R Progress Note DATE OF SERVICE: August 02, 2019 Chemist Physical Progress Note Subjective: Patient vomited today after which he reported feeling much better. He reports sometimes when he gets up he feels dizzy, but denies chest pain. REVIEW OF SYSTEMS: The following is a completed review of systems and has been reviewed. Review of systems otherwise unremarkable. PAIN: Patient self reports bilat foot pain EYES: No recent vision changes EARS, NOSE, & THROAT: No throat pain, or dysphagia, or rhinorrhea CARDIOVASCULAR: Denies chest pain or palpitations PULMONARY: Denies shortness of breath, +cough (improving) GASTROINTESTINAL: +nausea/vomiting GENITOURINARY: +dysuria MUSCULOSKELETAL: generalized weakness NEUROLOGICAL:+restless leg HEMATOLOGICAL: denies easy bruising SKIN: sacral ulcer PSYCHIATRIC: Unremarkable All other review of systems found to be negative. PHYSICAL EXAMINATION: VITAL SIGNS: Please see below. GENERAL:Pleasant and cooperative. No acute distress. HEENT: PERRL. Extraocular movements intact. Clear conjunctiva CARDIOVASCULAR: Regular rate and rhythm. No murmurs, rubs, or gallops LUNGS: +scattered rhonchi ABDOMEN: Soft, nontender, nondistended. Positive bowel sounds. Normal active bowel sounds NEUROLOGICAL: Alert and oriented times three. Cranial nerves II through XII grossly intact. Sensation grossly intact EXTREMITIES: 5\5 strength bilateral upper extremities. 5\5 strength right lower extremity. 5/5 strength in left lower extremity. +pedal pulses bilat SKIN: stage 1 and 2 ulcer sacrum ASSESSMENT:83-year-old M with past medical history of Afib and who presents status post Covid-19 infection PLAN: 1. PT/OT advance gait and ADL training, strengthen/stretch/maintain ROM all4 limbs, fall recovery, dynamic balance training, ambulating with RW 2. Neuro: restless leg syndrome, c/u requip 3. 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 c/u ASA 81mg -HLD- c/u tricor 4. resp: s/p course of Plaquenil for Covid-19 respiratory infection, c/u home 02 goal 88-92% for hx of chronic COPD, c/u breathing treatments, guaifenesin, and incentive spirometry, monitor for worsening infection -on daily prednisone, c/u 5. :+proteus mirabilis UTI c/u renally dosed Levaquin, leukocytosis improving -c/u Proscar and Flomax for BPH, monitor PVRs 6. Pain: tylenol prn, c/u gabapentin 100mg qHS for neuropathic bilateral foot pain 7. GI ppx: prilosec and sucralfate -c/u bowel meds -Phenergan prn for nausea, zofran ordered as well 8. DVT ppx: on eliquis, teds 9. Skin- barrier cream 10. Renal: hx of CKD, DEVAN improving 11. Leukocytosis: improving 11. Dispo: tbd Allergies Coded Allergies: fluconazole (Verified Allergy, Unknown, UNKNOWN REACTION, 03/31/19) fluticasone (Verified Allergy, Unknown, UNKNOWN REACTION, 03/31/19) metformin (Verified Allergy, Unknown, UNKNOWN REACTION, 03/31/19) petrolatum,white (Verified Allergy, Unknown, ITCH/RASH, 03/31/19) azithromycin (Verified Adverse Reaction, Unknown, LOWERS BP, 03/31/19) clarithromycin (Verified Adverse Reaction, Unknown, LOWERS BP, 03/31/19) procaine (Verified Adverse Reaction, Unknown, DIZZINESS, 03/31/19) Vital Signs Vital Signs Date Time Temp Pulse Resp B/P (MAP) Pulse Ox O2 Delivery O2 Flow Rate FiO2 08/02/19 14:00 97.7 70 18 100/58 (72) 98 Nasal Cannula 2.0 Laboratory Data CBC/BMP Laboratory Tests 08/02/19 06:29 Labs 24H Laboratory Tests 2 08/02/19 06:29: Immature Granulocyte % (Auto) , Neutrophils (%) (Auto) , Nucleated Red Blood Cells % (auto) 0.0, Neutrophils 76H, Lymphocytes (Manual) 6L, Monocytes (Manual) 12H, Basophils (Manual) 2H, Metamyelocytes 4H, Microcytosis 2+, Platelet Estimate NORMAL, Anion Gap 6L, Glomerular Filtration Rate 56.0, Calcium Level 8.1L, C-Reactive Protein, Quantitative 1.20H Microbiology Microbiology 07/30/19 Urine Culture - Final, Complete Proteus Mirabilis 07/30/19 Blood Culture - Preliminary, Resulted No Growth after 72 hours. All specime... 07/30/19 Blood Culture - Preliminary, Resulted No Growth after 72 hours. All specime... Current Medications Current Medications Current Medications Medications (Trade) Dose Ordered Sig/Sasha Route PRN Reason Start Time Stop Time Status Last Admin Dose Admin Acetaminophen (Tylenol Tab) 650 mg Q4HP PRN PO fever/MILD PAIN (PS 1-4) 07/29/19 18:15 08/01/19 19:54 Al Hydrox/Mg Hydrox/Simethicone (Mylanta) 30 ml Q4HP PRN PO DYSPEPSIA 07/29/19 18:15 08/02/19 08:17 Albuterol/ Ipratropium (Combivent Respimat 100-20mcg) 1 puff QID INH 07/29/19 21:00 Cancel Albuterol/ Ipratropium (Combivent Respimat 100-20mcg) 1 puff RQID INH 07/29/19 20:00 08/02/19 15:55 Amiodarone HCl (Pacerone, Cordarone) 200 mg DAILY PO 07/30/19 09:00 08/02/19 08:18 Apixaban (Eliquis) 2.5 mg BID PO 07/29/19 21:00 08/02/19 08:18 Aspirin (Ecotrin) 81 mg DAILY PO 07/30/19 09:00 08/02/19 08:17 Atenolol (Tenormin) 25 mg BID PO 07/29/19 21:00 07/30/19 10:52 DC 07/30/19 07:51 Atenolol (Tenormin) 25 mg DAILY PO 07/31/19 09:00 08/02/19 08:18 Bisacodyl (Dulcolax Suppository) 10 mg DAILYPRN PRN [place] CONSTIPATION 07/29/19 18:15 Diltiazem HCl (Cardizem Cd) 120 mg DAILY PO 07/30/19 09:00 08/02/19 08:18 Docusate Sodium (Colace) 100 mg BID PO 07/29/19 21:00 08/02/19 08:17 Fenofibrate (Tricor) 145 mg DAILY PO 07/30/19 09:00 08/02/19 08:17 Ferrous Sulfate (Ferrous Sulfate) 325 mg DAILY PO 08/02/19 11:00 08/02/19 12:15 Finasteride (Proscar) 5 mg QHS PO 07/29/19 21:00 08/01/19 19:55 Gabapentin (Neurontin) 100 mg QHS PO 07/29/19 21:00 08/01/19 19:54 Guaifenesin (Robitussin Tab) 400 mg TID PO 07/29/19 21:00 08/02/19 08:17 Lactobacillus Acidophilus (Bacid) 1 ea WM PO 07/30/19 18:00 08/02/19 12:15 Levofloxacin (Levaquin) 750 mg Q48H PO 07/30/19 18:00 08/03/19 18:01 08/01/19 17:31 Magnesium Chloride (Slow-Mag) 64 mg DAILY PO 07/30/19 09:00 08/02/19 08:16 Omeprazole (PriLOSEC) 40 mg DAILY PO 07/30/19 09:00 08/02/19 08:16 Ondansetron HCl (Zofran Odt) 4 mg Q4HP PRN SL NAUSEA OR VOMITING 08/02/19 12:30 08/02/19 12:37 Potassium Chloride (Micro-K Extencaps) 10 meq QHS PO 07/29/19 21:00 08/01/19 19:55 Prednisone (Deltasone) 2.5 mg QPM PO 07/29/19 21:00 08/01/19 19:53 Prednisone (Deltasone) 5 mg QAM PO 07/30/19 09:00 08/02/19 08:18 Promethazine HCl (Phenergan) 25 mg Q6HP PRN PO nausea 07/29/19 18:15 07/31/19 13:06 Ramelteon (Rozerem) 8 mg QHS PO 07/30/19 00:45 08/01/19 19:53 Ropinirole HCl (Requip) 0.5 mg QHS PO 07/29/19 21:00 08/01/19 19:54 Senna (Senokot) 1 tab QHS PO 07/29/19 21:00 08/01/19 19:53 Sodium Chloride ([place] Nasal [place]) 2 spray TID NA 07/31/19 16:00 08/02/19 08:19 Sucralfate (Carafate) 1 gm ACHS PO 07/29/19 21:00 08/02/19 12:15 Tamsulosin HCl (Flomax) 0.4 mg QHS PO 07/29/19 21:00 08/01/19 19:53 Torsemide (Demadex) 10 mg DAILY PO 07/30/19 09:00 07/30/19 10:53 DC 07/30/19 07:50 Torsemide (Demadex) 10 mg Q2D PO 08/01/19 09:00 08/01/19 08:11 JOSEP RAJAN MD August 02, 2019 16:44
[2019-08-02] MEDS: PROMETHAZINE 25 MG TAB PO PRN (18:08)
[2019-08-02 20:23] VITALS: BP 98/40
[2019-08-02] MEDS: POTASSIUM CHLORIDE 10 MEQ SR TABLET PO SCH (20:36)
[2019-08-02] MEDS: TAMSULOSIN 0.4 MG CAP PO SCH (20:36)
[2019-08-02] MEDS: predniSONE 2.5 MG TAB PO SCH (20:36)
[2019-08-02] MEDS: rOPINIRole 0.25 MG TAB(REQUIP) PO SCH (20:36)
[2019-08-02] MEDS: RAMELTEON 8 MG TAB (ROZEREM) PO SCH (20:36)
[2019-08-02] MEDS: GABAPENTIN 100 MG CAP PO SCH (20:36)
[2019-08-02] MEDS: SENNA 8.6 MG TAB (SENOKOT) PO SCH (20:36)
[2019-08-02] MEDS: FINASTERIDE 5 MG TAB PO SCH (20:37)
--- NOTE | 2019-08-02 23:42 | ECGEPIP ---
[facility] Test Date: 2019-08-02 Pat Name: MARCY LEE Department: Room: [place] [address] Gender: Male [employer] Worker: DUNCAN : 1935 Requested By: JOSEP RAJAN Order Number: [id number] Reading MD: Orlando Mejia Measurements Intervals [place] Rate: 69 P: 263 OR: 306 QRS: -7 QRSD: 89 T: 56 QT: 385 QTc: 415 Interpretive Statements ELECTRONIC ATRIAL PACEMAKER ABNORMAL RHYTHM ECG Compared to prior tracings(3) in the system, no significant changes Electronically Signed on 08-02-2019 23:42:16 EDT by Orlando Mejia
[2019-08-03 06:05] VITALS: BP 115/55
[2019-08-03] MEDS: ONDANSETRON 4 MG ORAL DISINTEGRATING TAB SL PRN (06:23)
[2019-08-03] MEDS: COMBIVENT RESPIMAT 100-20MCG INHALER 4GM INH SCH ×4 (06:26→19:32)
[2019-08-03] MEDS: SUCRALFATE 1 GM TAB PO SCH ×4 (07:30→20:55)
[2019-08-03 07:42] VITALS: BP 123/62
[2019-08-03] MEDS: PROMETHAZINE 25 MG TAB PO PRN ×2 (07:44→16:24)
[2019-08-03] MEDS: AMIODARONE 200 MG TAB (PACERONE) PO SCH (07:46)
[2019-08-03] MEDS: atenoloL 25 MG TAB PO SCH (07:47)
[2019-08-03] MEDS: APIXABAN 2.5 MG TAB (ELIQUIS) PO SCH ×2 (07:47→20:56)
[2019-08-03] MEDS: LACTOBACILLUS ACIDOPHILUS CAP (BACID) PO SCH ×3 (07:48→17:35)
[2019-08-03] MEDS: FERROUS SULFATE 325MG TAB PO SCH (07:48)
[2019-08-03] MEDS: guaiFENesin 200 MG TAB PO SCH ×3 (07:49→20:55)
[2019-08-03] MEDS: FENOFIBRATE 145 MG TAB (TRICOR) PO SCH (07:49)
[2019-08-03] MEDS: REMEDY PHYTOPLEX Z-GUARD PASTE 113GM TUBE (FROM STOREROOM PRODUCT) TOP SCH ×3 (07:49→20:57)
[2019-08-03] MEDS: predniSONE 5 MG TAB PO SCH (08:13)
[2019-08-03] MEDS: DOCUSATE SODIUM 100 MG CAP PO SCH ×3 (08:13→20:56)
[2019-08-03] MEDS: SODIUM CHLORIDE NASAL 0.65% SPRAY BTL (OCEAN) SCH ×3 (08:14→20:57)
[2019-08-03] MEDS: OMEPRAZOLE 20 MG CAP PO SCH ×2 (08:14→20:56)
[2019-08-03] MEDS: MAGNESIUM CHLORIDE 64 MG TABCR (SLO MAG) PO SCH (08:14)
[2019-08-03] MEDS: TORSEMIDE 10 MG TABLET PO SCH (08:14)
[2019-08-03] MEDS: ASPIRIN 81 MG ENTERIC TAB PO SCH (08:14)
[2019-08-03 09:04] LABS: HEMATOCRIT 28.5 % (42.0-52.0); MEAN CORPUSCULAR HEMOGLOBIN 28.5 pg (27.0-33.0); MEAN CORPUSCULAR HGB CONC 31.6 g/dl (32.0-36.5); MEAN CORPUSCULAR VOLUME 90.2 fl (80.0-96.0); PLATELET COUNT, AUTOMATED 274 10^3/uL (150-450); RED BLOOD COUNT 3.16 10^6/uL (4.30-6.10); WHITE BLOOD COUNT 12.7 10^3/uL (4.0-10.0)
--- NOTE | 2019-08-03 09:17 | REP ---
KUB: Single view. HISTORY: Nausea vomiting and abdominal distension. Rule out ileus or small bowel obstruction. COMPARISON STUDY: August 28, 2017. FINDINGS: Bowel gas pattern is unremarkable. There is air and stool in a nondistended colon. No large or small bowel dilation is seen. Psoas margins and flank stripes are intact. There is a mild levoconvex curvature in the lumbar spine and there is extensive vascular calcification again noted. No mass, organomegaly, or pathologic calcification is appreciated. IMPRESSION: Normal bowel gas pattern. Electronically Signed by Miller El MD 08/03/2019 12:02 P
[2019-08-03 09:24] LABS: ALBUMIN 2.4 GM/DL (3.2-5.2); BILIRUBIN,TOTAL 0.4 MG/DL (0.2-1.0); CALCIUM LEVEL 8.5 MG/DL (8.8-10.2); CREATININE FOR GFR 1.3 MG/DL (0.70-1.30); POTASSIUM SERUM 4.4 MEQ/L (3.5-5.1); TOTAL PROTEIN 5.2 GM/DL (6.4-8.2)
[2019-08-03] MEDS ORDERED: FLEET ENEMA PR PRN (10:15)
[2019-08-03] MEDS ORDERED: MIRALAX *UNIT DOSE* 17GM PACKET PO PRN (10:30)
[2019-08-03] MEDS: BISACODYL 10 MG SUPP PR SCH (10:58)
[2019-08-03 11:06] VITALS: BP 120/58
--- NOTE | 2019-08-03 15:33 | IPNPDOC ---
PM&R Progress Note DATE OF SERVICE: August 04, 2019 Operator Supply Progress Note Subjective: Patient reporting he continues to vomit, but that he feels better after having had a good sized bowel movement today. He reports he usually takes his prilosec on an empty stomach, followed by toast, and then takes his BP meds which had started to control his nausea and vomiting which he has suffered with on an off for several months. REVIEW OF SYSTEMS: The following is a completed review of systems and has been reviewed. Review of systems otherwise unremarkable. PAIN: Patient self reports bilat foot pain EYES: No recent vision changes EARS, NOSE, & THROAT: No throat pain, or dysphagia, or rhinorrhea CARDIOVASCULAR: Denies chest pain or palpitations PULMONARY: Denies shortness of breath, +cough (improving) GASTROINTESTINAL: +nausea/vomiting GENITOURINARY: +dysuria MUSCULOSKELETAL: generalized weakness NEUROLOGICAL:+restless leg HEMATOLOGICAL: denies easy bruising SKIN: sacral ulcer PSYCHIATRIC: Unremarkable All other review of systems found to be negative. PHYSICAL EXAMINATION: VITAL SIGNS: Please see below. GENERAL:Pleasant and cooperative. No acute distress. HEENT: PERRL. Extraocular movements intact. Clear conjunctiva CARDIOVASCULAR: Regular rate and rhythm. No murmurs, rubs, or gallops LUNGS: CTA ABDOMEN: Soft, nontender, nondistended. Positive bowel sounds. Normal active bowel sounds NEUROLOGICAL: Alert and oriented times three. Cranial nerves II through XII grossly intact. Sensation grossly intact EXTREMITIES: 5\5 strength bilateral upper extremities. 5\5 strength right lower extremity. 5/5 strength in left lower extremity. +pedal pulses bilat (-) edema SKIN: stage 1 and 2 ulcer sacrum ASSESSMENT:83-year-old M with past medical history of Afib and who presents status post Covid-19 infection PLAN: 1. PT/OT advance gait and ADL training, strengthen/stretch/maintain ROM all4 limbs, fall recovery, dynamic balance training, ambulating with RW 2. Neuro: restless leg syndrome, c/u requip 3. 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 resp: s/p course of Plaquenil for Covid-19 respiratory infection, c/u home 02 goal 88-92% for hx of chronic COPD, c/u breathing treatments, guaifenesin, and incentive spirometry, monitor for worsening infection -on daily prednisone, c/u 5. :+proteus mirabilis UTI s/p course of renally dosed Levaquin, leukocytosis resolved -c/u Proscar and Flomax for BPH, monitor PVRs 6. Pain: tylenol prn, c/u gabapentin 100mg qHS for neuropathic bilateral foot pain 7. GI ppx: prilosec and sucralfate- will try Prilosec at 6am before breakfast and before am meds and again at 12pm to assist with nausea/vomiting- per patient and family he has had bouts of for several months -c/u bowel meds, have added miralax and increased senna as constipation likely contributing to n/v -Phenergan prn for nausea, zofran ordered as well 8. DVT ppx: on eliquis, teds 9. Skin- barrier cream 10. Renal: hx of CKD, DEVAN improving 11. Leukocytosis: resolved 12. Heme: patient noted to have drop in Hgb to 8, FOBT ordered, will recheck h/h tomorrow and consider transfusion if <8 13. Dispo: 08-09-19 to home, progressing slowly towards goals Allergies Coded Allergies: fluconazole (Verified Allergy, Unknown, UNKNOWN REACTION, 03/31/19) fluticasone (Verified Allergy, Unknown, UNKNOWN REACTION, 03/31/19) metformin (Verified Allergy, Unknown, UNKNOWN REACTION, 03/31/19) petrolatum,white (Verified Allergy, Unknown, ITCH/RASH, 03/31/19) azithromycin (Verified Adverse Reaction, Unknown, LOWERS BP, 03/31/19) clarithromycin (Verified Adverse Reaction, Unknown, LOWERS BP, 03/31/19) procaine (Verified Adverse Reaction, Unknown, DIZZINESS, 03/31/19) Vital Signs Vital Signs Date Time Temp Pulse Resp B/P (MAP) Pulse Ox O2 Delivery O2 Flow Rate FiO2 08/03/19 11:06 70 17 120/58 (78) 96 Nasal Cannula 2.0 08/03/19 07:42 98.7 Laboratory Data CBC/BMP Laboratory Tests 08/03/19 08:48 08/03/19 08:49 Labs 24H Laboratory Tests 2 08/03/19 08:48: Nucleated Red Blood Cells % (auto) 0.0 08/03/19 08:49: Anion Gap 7L, Glomerular Filtration Rate 56.0, Lactic Acid Level 1.1, Calcium Level 8.5L, Total Bilirubin 0.4, Aspartate Amino Transf (AST/SGOT) 16, Alanine Aminotransferase (ALT/SGPT) 13, Alkaline Phosphatase 65, Total Protein 5.2L, Albumin 2.4L, Albumin/Globulin Ratio 0.86L Microbiology Microbiology 07/30/19 Urine Culture - Final, Complete Proteus Mirabilis 07/30/19 Blood Culture - Preliminary, Resulted No Growth after 72 hours. All specime... 07/30/19 Blood Culture - Preliminary, Resulted No Growth after 72 hours. All specime... Current Medications Current Medications Current Medications Medications (Trade) Dose Ordered Sig/Sasha Route PRN Reason Start Time Stop Time Status Last Admin Dose Admin Acetaminophen (Tylenol Tab) 650 mg Q4HP PRN PO fever/MILD PAIN (PS 1-4) 07/29/19 18:15 08/01/19 19:54 Al Hydrox/Mg Hydrox/Simethicone (Mylanta) 30 ml Q4HP PRN PO DYSPEPSIA 07/29/19 18:15 08/02/19 08:17 Albuterol/ Ipratropium (Combivent Respimat 100-20mcg) 1 puff QID INH 07/29/19 21:00 Cancel Albuterol/ Ipratropium (Combivent Respimat 100-20mcg) 1 puff RQID INH 07/29/19 20:00 08/03/19 15:15 Amiodarone HCl (Pacerone, Cordarone) 200 mg DAILY PO 07/30/19 09:00 08/03/19 07:46 Apixaban (Eliquis) 2.5 mg BID PO 07/29/19 21:00 08/03/19 07:47 Aspirin (Ecotrin) 81 mg DAILY PO 07/30/19 09:00 08/02/19 08:17 Atenolol (Tenormin) 25 mg BID PO 07/29/19 21:00 07/30/19 10:52 DC 07/30/19 07:51 Atenolol (Tenormin) 25 mg DAILY PO 07/31/19 09:00 08/03/19 07:47 Bisacodyl (Dulcolax Suppository) 10 mg DAILY ND 08/03/19 10:15 08/03/19 10:58 Bisacodyl (Dulcolax Suppository) 10 mg DAILYPRN PRN [place] CONSTIPATION 07/29/19 18:15 08/03/19 10:12 DC Diltiazem HCl (Cardizem Cd) 120 mg DAILY PO 07/30/19 09:00 08/03/19 07:47 Docusate Sodium (Colace) 100 mg BID PO 07/29/19 21:00 08/03/19 10:12 DC 08/02/19 20:36 Docusate Sodium (Colace) 100 mg TID PO 08/03/19 16:00 Fenofibrate (Tricor) 145 mg DAILY PO 07/30/19 09:00 08/02/19 08:17 Ferrous Sulfate (Ferrous Sulfate) 325 mg DAILY PO 08/02/19 11:00 08/02/19 12:15 Finasteride (Proscar) 5 mg QHS PO 07/29/19 21:00 08/02/19 20:37 Gabapentin (Neurontin) 100 mg QHS PO 07/29/19 21:00 08/02/19 20:36 Guaifenesin (Robitussin Tab) 400 mg TID PO 07/29/19 21:00 08/02/19 20:37 Lactobacillus Acidophilus (Bacid) 1 ea WM PO 07/30/19 18:00 08/03/19 10:58 Levofloxacin (Levaquin) 750 mg Q48H PO 07/30/19 18:00 08/03/19 18:01 08/01/19 17:31 Magnesium Chloride (Slow-Mag) 64 mg DAILY PO 07/30/19 09:00 08/02/19 08:16 Omeprazole (PriLOSEC) 40 mg BID PO 08/03/19 21:00 Omeprazole (PriLOSEC) 40 mg DAILY PO 07/30/19 09:00 08/03/19 10:12 DC 08/02/19 08:16 Ondansetron HCl (Zofran Odt) 4 mg Q4HP PRN SL NAUSEA OR VOMITING 08/02/19 12:30 08/03/19 06:23 Polyethylene Glycol (Miralax) 1 pkt DAILY PO 08/04/19 09:00 UNV Polyethylene Glycol (Miralax) 1 pkt DAILYPRN PRN PO CONSTIPATION 08/03/19 10:30 Potassium Chloride (Micro-K Extencaps) 10 meq QHS PO 07/29/19 21:00 08/02/19 20:36 Prednisone (Deltasone) 2.5 mg QPM PO 07/29/19 21:00 08/02/19 20:36 Prednisone (Deltasone) 5 mg QAM PO 07/30/19 09:00 08/02/19 08:18 Promethazine HCl (Phenergan) 25 mg Q6HP PRN PO nausea 07/29/19 18:15 08/03/19 07:44 Ramelteon (Rozerem) 8 mg QHS PO 07/30/19 00:45 08/02/19 20:36 Ropinirole HCl (Requip) 0.5 mg QHS PO 07/29/19 21:00 08/02/19 20:36 Senna (Senokot) 1 tab QHS PO 07/29/19 21:00 08/03/19 14:12 DC 08/02/19 20:36 Senna (Senokot) 2 tab QHS PO 08/03/19 21:00 Sodium Biphosphate/ Sodium Phosphate (Fleet Enema) 1 ea DAILYPRN PRN [place] CONSTIPATION 08/03/19 10:15 Sodium Chloride ([place] Nasal [place]) 2 spray TID NA 07/31/19 16:00 08/02/19 20:38 Sucralfate (Carafate) 1 gm ACHS PO 07/29/19 21:00 08/03/19 10:58 Tamsulosin HCl (Flomax) 0.4 mg QHS PO 07/29/19 21:00 08/02/19 20:36 Torsemide (Demadex) 10 mg DAILY PO 07/30/19 09:00 07/30/19 10:53 DC 07/30/19 07:50 Torsemide (Demadex) 10 mg Q2D PO 08/01/19 09:00 08/01/19 08:11 JOSEP RAJAN MD August 03, 2019 15:33
[2019-08-03 16:27] VITALS: BP 109/58
[2019-08-03] MEDS: MIRALAX *UNIT DOSE* 17GM PACKET PO SCH (17:00)
--- NOTE | 2019-08-03 17:14 | IPNPDOC ---
Date Seen The patient was seen on 08/03/19. Progress Note SUBJECTIVE: The patient complained of abdominal distention, some nausea with vomiting today. Abdominal KUB showed normal gas pattern, patient is passing flatus. He has a history of abdominal distention and the past and constipation. Bowel regimen was modified. He denies chest pain, shortness of breath, fevers or chills. OBJECTIVE: VITAL SIGNS: Please see below PHYSICAL EXAMINATION: CONSTITUTIONAL: No acute distress, resting comfortably, AAO x 3 EYES: PERRLA, EOM intact HENT, MOUTH: Normocephalic, atraumatic, moist mucous membranes NECK: SUPPLE, no JVD, no lymphadenopathy, no carotid bruit CV: Regular rate and rhythm, S1S2 normal, no murmurs/rubs/gallops RESPIRATORY: Clear to auscultation bilaterally, no rales/rhonchi/wheezes GI: BS positive in 4 quadrants, nontender, distended, no rebound or guarding, n o organomegaly : Deferred MUSCULOSKELETAL: Normal ROM. No cyanosis, clubbing, swelling, joint deformity, extremity edema INTEGUMENTARY: Intact, no rashes, no lesions, no erythema NEUROLOGIC: Cranial Nerves II-XII are intact, no focal deficits PSYCHIATRIC: Mood and affect are normal CURRENT MEDICATIONS: Please see below LABORATORY DATA: Please see below IMAGING: Abd XR: normal gas pattern ASSESSMENT: Patient is an 83 y/o M treated for physical deconditioning 2/2 to COVID 19 infection. PLAN: 1. Physical deconditioning 2/2 to COVID-19 infection. C/w PT/OT, precautions in place. 2. Abdominal distention likely 2/2 to constipation. Intermittent nausea this hospital stay with vomiting. Abd XR neg for obstruction or ileus. Modified bowel regimen, encouraging increased activity and hydration during the day. Phenergan, zofran PRN. 3. UTI, proteus mirabilis. WBC 12.7, afebrile and asymptomatic. C/w levofloxacin (to receive third dose). 4. Atrial fibrillation, chronic and rate controlled. C/w current treatment. 5. HTN. Stable. C/w current treatment. 6. GERD. C/w current treatment. 7. DVT px. C/w Eliquis BID. DISPOSITION: Currently in ARU. Plan is discharge home when medically improved. VS, I&O, 24H, Fishbone Vital Signs/I&O Vital Signs Date Time Temp Pulse Resp B/P (MAP) Pulse Ox O2 Delivery O2 Flow Rate FiO2 08/03/19 16:27 96.0 70 17 109/58 (75) 92 Nasal Cannula 1.0 I&O- Last 24 Hours up to 6 AM 08/03/19 06:00 Intake Total 480 ml Output Total 300 ml Balance 180 ml Laboratory Data 24H LABS Laboratory Tests 2 08/03/19 08:48: Nucleated Red Blood Cells % (auto) 0.0 08/03/19 08:49: Anion Gap 7L, Glomerular Filtration Rate 56.0, Lactic Acid Level 1.1, Calcium Level 8.5L, Total Bilirubin 0.4, Aspartate Amino Transf (AST/SGOT) 16, Alanine Aminotransferase (ALT/SGPT) 13, Alkaline Phosphatase 65, Total Protein 5.2L, Albumin 2.4L, Albumin/Globulin Ratio 0.86L CBC/BMP Laboratory Tests 08/03/19 08:48 08/03/19 08:49 Microbiology Microbiology 07/30/19 Urine Culture - Final, Complete Proteus Mirabilis 07/30/19 Blood Culture - Preliminary, Resulted No Growth after 72 hours. All specime... 07/30/19 Blood Culture - Preliminary, Resulted No Growth after 72 hours. All specime... Clarice Rodriguez MD August 03, 2019 17:14
[2019-08-03] MEDS: LevoFLOXacin 750 MG TABLET PO SCH (17:35)
[2019-08-03 20:52] VITALS: BP 114/58
[2019-08-03] MEDS: TAMSULOSIN 0.4 MG CAP PO SCH (20:55)
[2019-08-03] MEDS: rOPINIRole 0.25 MG TAB(REQUIP) PO SCH (20:56)
[2019-08-03] MEDS: POTASSIUM CHLORIDE 10 MEQ SR TABLET PO SCH (20:56)
[2019-08-03] MEDS: predniSONE 2.5 MG TAB PO SCH (20:56)
[2019-08-03] MEDS: SENNA 8.6 MG TAB (SENOKOT) PO SCH (20:56)
[2019-08-03] MEDS: RAMELTEON 8 MG TAB (ROZEREM) PO SCH (20:56)
[2019-08-03] MEDS: GABAPENTIN 100 MG CAP PO SCH (20:57)
[2019-08-03] MEDS: FINASTERIDE 5 MG TAB PO SCH (20:57)
[2019-08-03] MEDS: ACETAMINOPHEN TAB 650MG DOSE (2X325MG) PO PRN (23:04)
[2019-08-04] VITALS (10 sets, daily range): BP systolic 96–130; BP diastolic 51–64
[2019-08-04 07:01] LABS: HEMATOCRIT 25.2 % (42.0-52.0); HEMOGLOBIN 8.1 g/dl (13.5-17.5); MEAN CORPUSCULAR HEMOGLOBIN 28.8 pg (27.0-33.0); MEAN CORPUSCULAR HGB CONC 32.1 g/dl (32.0-36.5); MEAN CORPUSCULAR VOLUME 89.7 fl (80.0-96.0); PLATELET COUNT, AUTOMATED 213 10^3/uL (150-450); RED BLOOD COUNT 2.81 10^6/uL (4.30-6.10); WHITE BLOOD COUNT 10.4 10^3/uL (4.0-10.0)
[2019-08-04 07:19] LABS: ATYPICAL LYMPH 1 % (0-5); BASOPHILS 1 % (0-1); LYMPHOCYTES 4 % (16-44); METAMYELOCYTES 3 % (0-0); MONOCYTES 14 % (0-5); MYELOCYTES 3 % (0-0); NEUTROPHILS 73 % (28-66)
[2019-08-04 07:20] LABS: ANISOCYTOSIS 2+; PLATELET ESTIMATE NORMAL (NORMAL); POIKILOCYTOSIS 1+
[2019-08-04 07:21] LABS: OVALOCYTES 1+; TEAR DROP CELLS 1+
[2019-08-04 07:23] LABS: CALCIUM LEVEL 8.4 MG/DL (8.8-10.2); CREATININE FOR GFR 1.26 MG/DL (0.70-1.30); POTASSIUM SERUM 4.4 MEQ/L (3.5-5.1)
[2019-08-04] MEDS: COMBIVENT RESPIMAT 100-20MCG INHALER 4GM INH SCH ×4 (07:25→19:49)
[2019-08-04] MEDS: REMEDY PHYTOPLEX Z-GUARD PASTE 113GM TUBE (FROM STOREROOM PRODUCT) TOP SCH ×3 (09:00→20:23)
[2019-08-04] MEDS: BISACODYL 10 MG SUPP PR SCH (09:00)
[2019-08-04] MEDS: atenoloL 25 MG TAB PO SCH (09:00)
[2019-08-04] MEDS: ASPIRIN 81 MG ENTERIC TAB PO SCH (09:42)
[2019-08-04] MEDS: FERROUS SULFATE 325MG TAB PO SCH (09:42)
[2019-08-04] MEDS: APIXABAN 2.5 MG TAB (ELIQUIS) PO SCH ×2 (09:42→20:23)
[2019-08-04] MEDS: guaiFENesin 200 MG TAB PO SCH ×3 (09:42→20:23)
[2019-08-04] MEDS: DOCUSATE SODIUM 100 MG CAP PO SCH ×3 (09:42→20:22)
[2019-08-04] MEDS: FENOFIBRATE 145 MG TAB (TRICOR) PO SCH (09:42)
[2019-08-04] MEDS: LACTOBACILLUS ACIDOPHILUS CAP (BACID) PO SCH ×3 (09:42→17:19)
[2019-08-04] MEDS: OMEPRAZOLE 20 MG CAP PO SCH ×2 (09:42→12:34)
[2019-08-04] MEDS: MIRALAX *UNIT DOSE* 17GM PACKET PO SCH (09:42)
[2019-08-04] MEDS: SUCRALFATE 1 GM TAB PO SCH ×4 (09:42→20:22)
[2019-08-04] MEDS: predniSONE 5 MG TAB PO SCH (09:42)
[2019-08-04] MEDS: MAGNESIUM CHLORIDE 64 MG TABCR (SLO MAG) PO SCH (09:42)
[2019-08-04] MEDS: AMIODARONE 200 MG TAB (PACERONE) PO SCH (09:42)
[2019-08-04] MEDS: SODIUM CHLORIDE NASAL 0.65% SPRAY BTL (OCEAN) SCH ×3 (09:43→20:24)
[2019-08-04] MEDS: ONDANSETRON 4 MG ORAL DISINTEGRATING TAB SL PRN (10:32)
[2019-08-04] MEDS ORDERED: ACETAMINOPHEN TAB 650MG DOSE (2X325MG) PO ONE (14:45)
[2019-08-04] MEDS: MAALOX 30 ML SUSP *UDC PO PRN (17:46)
[2019-08-04] MEDS: rOPINIRole 0.25 MG TAB(REQUIP) PO SCH (20:22)
[2019-08-04] MEDS: predniSONE 2.5 MG TAB PO SCH (20:22)
[2019-08-04] MEDS: TAMSULOSIN 0.4 MG CAP PO SCH (20:22)
[2019-08-04] MEDS: POTASSIUM CHLORIDE 10 MEQ SR TABLET PO SCH (20:22)
[2019-08-04] MEDS: GABAPENTIN 100 MG CAP PO SCH (20:22)
[2019-08-04] MEDS: FINASTERIDE 5 MG TAB PO SCH (20:22)
[2019-08-04] MEDS: SENNA 8.6 MG TAB (SENOKOT) PO SCH (20:23)
[2019-08-04] MEDS: RAMELTEON 8 MG TAB (ROZEREM) PO SCH (20:23)
[2019-08-05 00:06] VITALS: BP 122/61
[2019-08-05 01:00] VITALS: BP 120/64
[2019-08-05 02:06] VITALS: BP 119/63
[2019-08-05 05:06] VITALS: BP 119/62
[2019-08-05] MEDS: OMEPRAZOLE 20 MG CAP PO SCH ×2 (05:52→12:16)
[2019-08-05 07:33] LABS: HEMATOCRIT 31.2 % (42.0-52.0); MEAN CORPUSCULAR HEMOGLOBIN 30.1 pg (27.0-33.0); MEAN CORPUSCULAR HGB CONC 33.3 g/dl (32.0-36.5); MEAN CORPUSCULAR VOLUME 90.4 fl (80.0-96.0); PLATELET COUNT, AUTOMATED 203 10^3/uL (150-450); RED BLOOD COUNT 3.45 10^6/uL (4.30-6.10); WHITE BLOOD COUNT 8.5 10^3/uL (4.0-10.0)
[2019-08-05 07:43] LABS: HEMOGLOBIN 10.4 g/dl (13.5-17.5)
[2019-08-05] MEDS: COMBIVENT RESPIMAT 100-20MCG INHALER 4GM INH SCH ×4 (07:45→20:32)
[2019-08-05 08:17] LABS: ATYPICAL LYMPH 5 % (0-5); BASOPHILS 1 % (0-1); LYMPHOCYTES 17 % (16-44); METAMYELOCYTES 2 % (0-0); MONOCYTES 5 % (0-5); MYELOCYTES 5 % (0-0); NEUTROPHILS 65 % (28-66); PLATELET ESTIMATE NORMAL (NORMAL)
[2019-08-05 08:18] LABS: ANISOCYTOSIS 1+
[2019-08-05] MEDS: TORSEMIDE 10 MG TABLET PO SCH (08:58)
[2019-08-05] MEDS: SUCRALFATE 1 GM TAB PO SCH ×4 (08:58→20:50)
[2019-08-05] MEDS: LACTOBACILLUS ACIDOPHILUS CAP (BACID) PO SCH ×3 (08:58→16:55)
[2019-08-05] MEDS: predniSONE 5 MG TAB PO SCH (08:58)
[2019-08-05] MEDS: AMIODARONE 200 MG TAB (PACERONE) PO SCH (08:58)
[2019-08-05] MEDS: DOCUSATE SODIUM 100 MG CAP PO SCH ×3 (08:58→20:49)
[2019-08-05] MEDS: APIXABAN 2.5 MG TAB (ELIQUIS) PO SCH ×2 (08:59→20:50)
[2019-08-05] MEDS: atenoloL 25 MG TAB PO SCH (08:59)
[2019-08-05] MEDS: FENOFIBRATE 145 MG TAB (TRICOR) PO SCH (08:59)
[2019-08-05] MEDS: MAGNESIUM CHLORIDE 64 MG TABCR (SLO MAG) PO SCH (08:59)
[2019-08-05] MEDS: FERROUS SULFATE 325MG TAB PO SCH (08:59)
[2019-08-05] MEDS: MIRALAX *UNIT DOSE* 17GM PACKET PO SCH (09:00)
[2019-08-05] MEDS: guaiFENesin 200 MG TAB PO SCH ×3 (09:00→20:50)
[2019-08-05] MEDS: BISACODYL 10 MG SUPP PR SCH (09:00)
[2019-08-05] MEDS: SODIUM CHLORIDE NASAL 0.65% SPRAY BTL (OCEAN) SCH ×3 (09:00→20:51)
[2019-08-05] MEDS: REMEDY PHYTOPLEX Z-GUARD PASTE 113GM TUBE (FROM STOREROOM PRODUCT) TOP SCH ×3 (09:00→20:51)
[2019-08-05 14:44] VITALS: BP 114/62
[2019-08-05 20:00] VITALS: BP 104/59
[2019-08-05] MEDS: FINASTERIDE 5 MG TAB PO SCH (20:49)
[2019-08-05] MEDS: MAGNESIUM SULFATE GRANULES(EPSOM SALT) 1LB TOP SCH (20:49)
[2019-08-05] MEDS: rOPINIRole 0.25 MG TAB(REQUIP) PO SCH (20:49)
[2019-08-05] MEDS: POTASSIUM CHLORIDE 10 MEQ SR TABLET PO SCH (20:49)
[2019-08-05] MEDS: GABAPENTIN 100 MG CAP PO SCH (20:49)
[2019-08-05] MEDS: TAMSULOSIN 0.4 MG CAP PO SCH (20:50)
[2019-08-05] MEDS: RAMELTEON 8 MG TAB (ROZEREM) PO SCH (20:50)
[2019-08-05] MEDS: SENNA 8.6 MG TAB (SENOKOT) PO SCH (20:50)
[2019-08-05] MEDS: predniSONE 2.5 MG TAB PO SCH (20:50)
[2019-08-06] MEDS: OMEPRAZOLE 20 MG CAP PO SCH ×2 (05:53→11:58)
[2019-08-06 06:00] VITALS: BP 102/58
[2019-08-06 06:43] LABS: HEMATOCRIT 31.8 % (42.0-52.0); HEMOGLOBIN 10.5 g/dl (13.5-17.5); MEAN CORPUSCULAR HEMOGLOBIN 29.9 pg (27.0-33.0); MEAN CORPUSCULAR VOLUME 90.6 fl (80.0-96.0); PLATELET COUNT, AUTOMATED 210 10^3/uL (150-450); RED BLOOD COUNT 3.51 10^6/uL (4.30-6.10); WHITE BLOOD COUNT 8.1 10^3/uL (4.0-10.0)
[2019-08-06] MEDS: COMBIVENT RESPIMAT 100-20MCG INHALER 4GM INH SCH ×4 (07:05→20:05)
[2019-08-06 07:06] LABS: CALCIUM LEVEL 8.5 MG/DL (8.8-10.2); CREATININE FOR GFR 1.25 MG/DL (0.70-1.30); GLOMERULAR FILTRATION RATE 58.6 (>35); POTASSIUM SERUM 3.9 MEQ/L (3.5-5.1)
[2019-08-06 07:17] LABS: ANISOCYTOSIS 1+; ATYPICAL LYMPH 2 % (0-5); LYMPHOCYTES 11 % (16-44); METAMYELOCYTES 1 % (0-0); MONOCYTES 18 % (0-5); MYELOCYTES 2 % (0-0); NEUTROPHILS 65 % (28-66); OVALOCYTES 1+; PLATELET ESTIMATE NORMAL (NORMAL)
[2019-08-06 07:19] LABS: POIKILOCYTOSIS 1+
[2019-08-06] MEDS: SUCRALFATE 1 GM TAB PO SCH ×4 (07:30→21:14)
[2019-08-06] MEDS: MAGNESIUM CHLORIDE 64 MG TABCR (SLO MAG) PO SCH (07:52)
[2019-08-06] MEDS: DOCUSATE SODIUM 100 MG CAP PO SCH ×3 (07:53→21:14)
[2019-08-06] MEDS: predniSONE 5 MG TAB PO SCH (07:53)
[2019-08-06] MEDS: guaiFENesin 200 MG TAB PO SCH ×3 (07:53→21:14)
[2019-08-06] MEDS: FERROUS SULFATE 325MG TAB PO SCH (07:53)
[2019-08-06] MEDS: LACTOBACILLUS ACIDOPHILUS CAP (BACID) PO SCH ×3 (07:53→16:39)
[2019-08-06] MEDS: APIXABAN 2.5 MG TAB (ELIQUIS) PO SCH ×2 (07:54→21:14)
[2019-08-06] MEDS: AMIODARONE 200 MG TAB (PACERONE) PO SCH (07:54)
[2019-08-06] MEDS: atenoloL 25 MG TAB PO SCH (07:54)
[2019-08-06] MEDS: FENOFIBRATE 145 MG TAB (TRICOR) PO SCH (07:54)
[2019-08-06] MEDS: BISACODYL 10 MG SUPP PR SCH ×2 (07:55→09:00)
[2019-08-06] MEDS: SODIUM CHLORIDE NASAL 0.65% SPRAY BTL (OCEAN) SCH ×3 (07:55→21:16)
[2019-08-06] MEDS: MIRALAX *UNIT DOSE* 17GM PACKET PO SCH (08:00)
[2019-08-06] MEDS: REMEDY PHYTOPLEX Z-GUARD PASTE 113GM TUBE (FROM STOREROOM PRODUCT) TOP SCH ×3 (08:00→21:00)
--- NOTE | 2019-08-06 09:40 | IPNPDOC ---
PM&R Progress Note DATE OF SERVICE: August 05, 2019 Check Inspector Progress Note Subjective: Patient reporting he feels better today having receiving blood, is ableto stand and walk in therapy without getting dizzy. REVIEW OF SYSTEMS: The following is a completed review of systems and has been reviewed. Review of systems otherwise unremarkable. PAIN: Patient self reports bilat foot pain EYES: No recent vision changes EARS, NOSE, & THROAT: No throat pain, or dysphagia, or rhinorrhea CARDIOVASCULAR: Denies chest pain or palpitations PULMONARY: Denies shortness of breath, +cough (improving) GASTROINTESTINAL: +nausea/vomiting (improving) GENITOURINARY: +dysuria (resolved) MUSCULOSKELETAL: generalized weakness NEUROLOGICAL:+restless leg HEMATOLOGICAL: denies easy bruising SKIN: sacral ulcer PSYCHIATRIC: Unremarkable All other review of systems found to be negative. PHYSICAL EXAMINATION: VITAL SIGNS: Please see below. GENERAL:Pleasant and cooperative. No acute distress. HEENT: PERRL. Extraocular movements intact. Clear conjunctiva CARDIOVASCULAR: Regular rate and rhythm. No murmurs, rubs, or gallops LUNGS: CTA ABDOMEN: Soft, nontender, nondistended. Positive bowel sounds. Normal active bowel sounds NEUROLOGICAL: Alert and oriented times three. Cranial nerves II through XII grossly intact. Sensation grossly intact EXTREMITIES: 5\5 strength bilateral upper extremities. 5\5 strength right lower extremity. 5/5 strength in left lower extremity. +pedal pulses bilat (-) edema SKIN: stage 1 and 2 ulcer sacrum ASSESSMENT:83-year-old M with past medical history of Afib and who presents status post Covid-19 infection PLAN: 1. PT/OT advance gait and ADL training, strengthen/stretch/maintain ROM all4 limbs, fall recovery, dynamic balance training, ambulating with RW 2. Neuro: restless leg syndrome, c/u requip 3. 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 resp: s/p course of Plaquenil for Covid-19 respiratory infection, c/u home 02 goal 88-92% for hx of chronic COPD, c/u breathing treatments, guaifenesin, and incentive spirometry, monitor for worsening infection -on daily prednisone, c/u 5. :+proteus mirabilis UTI s/p course of renally dosed Levaquin, leukocytosis resolved -c/u Proscar and Flomax for BPH, monitor PVRs 6. Pain: tylenol prn, c/u gabapentin 100mg qHS for neuropathic bilateral foot pain 7. GI ppx: prilosec and sucralfate- c/u Prilosec at 6am before breakfast and before am meds and again at 12pm to assist with nausea/vomiting- per patient and family he has had bouts of for several months -c/u bowel meds, have added miralax and increased senna as constipation likely contributing to n/v which is better today -Phenergan prn for nausea, zofran ordered as well -patient with hx of +FOBT and gI bleeds, will c/u to hold ASA given recent drop in Hgb 8. DVT ppx: on eliquis, teds 9. Skin- barrier cream 10. Renal: hx of CKD, DEVAN improving 11. Leukocytosis: resolved 12. Heme: patient noted to have drop in Hgb to 8 improved to 10 today, FOBT ordered 13. Dispo: 08-09-19 to home, progressing slowly towards goals Allergies Coded Allergies: fluconazole (Verified Allergy, Unknown, UNKNOWN REACTION, 03/31/19) fluticasone (Verified Allergy, Unknown, UNKNOWN REACTION, 03/31/19) metformin (Verified Allergy, Unknown, UNKNOWN REACTION, 03/31/19) petrolatum,white (Verified Allergy, Unknown, ITCH/RASH, 03/31/19) azithromycin (Verified Adverse Reaction, Unknown, LOWERS BP, 03/31/19) clarithromycin (Verified Adverse Reaction, Unknown, LOWERS BP, 03/31/19) procaine (Verified Adverse Reaction, Unknown, DIZZINESS, 03/31/19) Vital Signs Vital Signs Date Time Temp Pulse Resp B/P (MAP) Pulse Ox O2 Delivery O2 Flow Rate FiO2 08/06/19 09:00 2.0 08/06/19 07:52 70 121/56 08/06/19 06:00 96.6 18 98 Nasal Cannula Laboratory Data CBC/BMP Laboratory Tests 08/06/19 06:16 Labs 24H Laboratory Tests 2 08/06/19 06:16: Immature Granulocyte % (Auto) , Neutrophils (%) (Auto) , Nucleated Red Blood Cells % (auto) 0.0, Neutrophils 65, Band Neutrophils 1, Lymphocytes (Manual) 11L, Monocytes (Manual) 18H, Metamyelocytes 1H, Myelocytes 2H, Atypical Lymphocytes 2, Poikilocytosis 1+, Anisocytosis 1+, Ovalocytes 1+, Platelet Estimate NORMAL, Anion Gap 4L, Glomerular Filtration Rate 58.6, Calcium Level 8.5L Microbiology Microbiology 07/30/19 Urine Culture - Final, Complete Proteus Mirabilis 07/30/19 Blood Culture - Final, Complete NO GROWTH AFTER 5 DAYS 07/30/19 Blood Culture - Final, Complete NO GROWTH AFTER 5 DAYS Current Medications Current Medications Current Medications Medications (Trade) Dose Ordered Sig/Sasha Route PRN Reason Start Time Stop Time Status Last Admin Dose Admin Acetaminophen (Tylenol Tab) 650 mg Q4HP PRN PO fever/MILD PAIN (PS 1-4) 07/29/19 18:15 08/03/19 23:04 Al Hydrox/Mg Hydrox/Simethicone (Mylanta) 30 ml Q4HP PRN PO DYSPEPSIA 07/29/19 18:15 08/04/19 17:46 Albuterol/ Ipratropium (Combivent Respimat 100-20mcg) 1 puff QID INH 07/29/19 21:00 Cancel Albuterol/ Ipratropium (Combivent Respimat 100-20mcg) 1 puff RQID INH 07/29/19 20:00 08/06/19 07:05 Amiodarone HCl (Pacerone, Cordarone) 200 mg DAILY PO 07/30/19 09:00 08/06/19 07:54 Apixaban (Eliquis) 2.5 mg BID PO 07/29/19 21:00 08/06/19 07:54 Aspirin (Ecotrin) 81 mg DAILY PO 07/30/19 09:00 08/04/19 14:40 DC 08/04/19 09:42 Atenolol (Tenormin) 25 mg BID PO 07/29/19 21:00 07/30/19 10:52 DC 07/30/19 07:51 Atenolol (Tenormin) 25 mg DAILY PO 07/31/19 09:00 08/06/19 07:54 Bisacodyl (Dulcolax Suppository) 10 mg DAILY [place] 08/03/19 10:15 08/03/19 10:58 Bisacodyl (Dulcolax Suppository) 10 mg DAILYPRN PRN [place] CONSTIPATION 07/29/19 18:15 08/03/19 10:12 DC Diltiazem HCl (Cardizem Cd) 120 mg DAILY PO 07/30/19 09:00 08/06/19 07:52 Docusate Sodium (Colace) 100 mg BID PO 07/29/19 21:00 08/03/19 10:12 DC 08/02/19 20:36 Docusate Sodium (Colace) 100 mg TID PO 08/03/19 16:00 08/06/19 07:53 Fenofibrate (Tricor) 145 mg DAILY PO 07/30/19 09:00 08/06/19 07:54 Ferrous Sulfate (Ferrous Sulfate) 325 mg DAILY PO 08/02/19 11:00 08/06/19 07:53 Finasteride (Proscar) 5 mg QHS PO 07/29/19 21:00 08/05/19 20:49 Gabapentin (Neurontin) 100 mg QHS PO 07/29/19 21:00 08/05/19 20:49 Guaifenesin (Robitussin Tab) 400 mg TID PO 07/29/19 21:00 08/06/19 07:53 Lactobacillus Acidophilus (Bacid) 1 ea WM PO 07/30/19 18:00 08/05/19 16:55 Levofloxacin (Levaquin) 750 mg Q48H PO 07/30/19 18:00 08/03/19 18:01 DC 08/03/19 17:35 Magnesium Chloride (Slow-Mag) 64 mg DAILY PO 07/30/19 09:00 08/06/19 07:52 Magnesium Sulfate (Epsom Salt) Soak both feet in luke w... QHS TOP 08/05/19 21:00 08/05/19 20:49 Omeprazole (PriLOSEC) 40 mg BID PO 08/03/19 21:00 08/04/19 10:56 DC 08/04/19 09:42 Omeprazole (PriLOSEC) 40 mg BID@0600,1200 PO 08/04/19 12:00 08/06/19 05:53 Omeprazole (PriLOSEC) 40 mg DAILY PO 07/30/19 09:00 08/03/19 10:12 DC 08/02/19 08:16 Ondansetron HCl (Zofran Odt) 4 mg Q4HP PRN SL NAUSEA OR VOMITING 08/02/19 12:30 08/04/19 10:32 Polyethylene Glycol (Miralax) 1 pkt DAILY PO 08/03/19 17:00 08/06/19 08:00 Polyethylene Glycol (Miralax) 1 pkt DAILYPRN PRN PO CONSTIPATION 08/03/19 10:30 08/03/19 16:17 DC Potassium Chloride (Micro-K Extencaps) 10 meq QHS PO 07/29/19 21:00 08/05/19 20:49 Prednisone (Deltasone) 2.5 mg QPM PO 07/29/19 21:00 08/05/19 20:50 Prednisone (Deltasone) 5 mg QAM PO 07/30/19 09:00 08/06/19 07:53 Promethazine HCl (Phenergan) 25 mg Q6HP PRN PO nausea 07/29/19 18:15 08/03/19 16:24 Ramelteon (Rozerem) 8 mg QHS PO 07/30/19 00:45 08/05/19 20:50 Ropinirole HCl (Requip) 0.5 mg QHS PO 07/29/19 21:00 08/05/19 20:49 Senna (Senokot) 1 tab QHS PO 07/29/19 21:00 08/03/19 14:12 DC 08/02/19 20:36 Senna (Senokot) 2 tab QHS PO 08/03/19 21:00 08/05/19 20:50 Sodium Biphosphate/ Sodium Phosphate (Fleet Enema) 1 ea DAILYPRN PRN [place] CONSTIPATION 08/03/19 10:15 Sodium Chloride ([place] Nasal [place]) 2 spray TID NA 07/31/19 16:00 08/06/19 07:55 Sucralfate (Carafate) 1 gm ACHS PO 07/29/19 21:00 08/05/19 20:50 Tamsulosin HCl (Flomax) 0.4 mg QHS PO 07/29/19 21:00 08/05/19 20:50 Torsemide (Demadex) 10 mg DAILY PO 07/30/19 09:00 07/30/19 10:53 DC 07/30/19 07:50 Torsemide (Demadex) 10 mg Q2D PO 08/01/19 09:00 08/05/19 08:58 JOSEP RAJAN MD August 06, 2019 09:40
[2019-08-06 14:00] VITALS: BP 100/56
[2019-08-06 21:01] VITALS: BP 118/59
[2019-08-06] MEDS: RAMELTEON 8 MG TAB (ROZEREM) PO SCH (21:13)
[2019-08-06] MEDS: GABAPENTIN 100 MG CAP PO SCH (21:14)
[2019-08-06] MEDS: TAMSULOSIN 0.4 MG CAP PO SCH (21:14)
[2019-08-06] MEDS: SENNA 8.6 MG TAB (SENOKOT) PO SCH (21:14)
[2019-08-06] MEDS: rOPINIRole 0.25 MG TAB(REQUIP) PO SCH (21:14)
[2019-08-06] MEDS: POTASSIUM CHLORIDE 10 MEQ SR TABLET PO SCH (21:14)
[2019-08-06] MEDS: FINASTERIDE 5 MG TAB PO SCH (21:14)
[2019-08-06] MEDS: predniSONE 2.5 MG TAB PO SCH (21:14)
[2019-08-06] MEDS: MAGNESIUM SULFATE GRANULES(EPSOM SALT) 1LB TOP SCH (21:15)
[2019-08-07 06:15] VITALS: BP 121/66
[2019-08-07] MEDS: OMEPRAZOLE 20 MG CAP PO SCH ×2 (06:18→11:56)
[2019-08-07] MEDS: COMBIVENT RESPIMAT 100-20MCG INHALER 4GM INH SCH ×4 (07:58→20:14)
[2019-08-07] MEDS: FENOFIBRATE 145 MG TAB (TRICOR) PO SCH (08:14)
[2019-08-07] MEDS: FERROUS SULFATE 325MG TAB PO SCH (08:14)
[2019-08-07] MEDS: SUCRALFATE 1 GM TAB PO SCH ×4 (08:14→20:24)
[2019-08-07] MEDS: atenoloL 25 MG TAB PO SCH (08:14)
[2019-08-07] MEDS: TORSEMIDE 10 MG TABLET PO SCH (08:15)
[2019-08-07] MEDS: AMIODARONE 200 MG TAB (PACERONE) PO SCH (08:15)
[2019-08-07] MEDS: predniSONE 5 MG TAB PO SCH (08:15)
[2019-08-07] MEDS: DOCUSATE SODIUM 100 MG CAP PO SCH ×3 (08:15→20:24)
[2019-08-07] MEDS: LACTOBACILLUS ACIDOPHILUS CAP (BACID) PO SCH ×3 (08:15→16:44)
[2019-08-07] MEDS: guaiFENesin 200 MG TAB PO SCH ×3 (08:16→20:24)
[2019-08-07] MEDS: MAGNESIUM CHLORIDE 64 MG TABCR (SLO MAG) PO SCH (08:16)
[2019-08-07] MEDS: MIRALAX *UNIT DOSE* 17GM PACKET PO SCH (08:16)
[2019-08-07] MEDS: APIXABAN 2.5 MG TAB (ELIQUIS) PO SCH ×2 (08:16→20:24)
[2019-08-07] MEDS: SODIUM CHLORIDE NASAL 0.65% SPRAY BTL (OCEAN) SCH ×3 (08:20→20:30)
[2019-08-07] MEDS: REMEDY PHYTOPLEX Z-GUARD PASTE 113GM TUBE (FROM STOREROOM PRODUCT) TOP SCH ×3 (08:20→20:25)
[2019-08-07] MEDS: BISACODYL 10 MG SUPP PR SCH (08:20)
[2019-08-07 14:00] VITALS: BP 114/57
[2019-08-07] MEDS: ACETAMINOPHEN TAB 650MG DOSE (2X325MG) PO PRN (18:45)
[2019-08-07 20:18] VITALS: BP 106/58
[2019-08-07] MEDS: RAMELTEON 8 MG TAB (ROZEREM) PO SCH (20:24)
[2019-08-07] MEDS: TAMSULOSIN 0.4 MG CAP PO SCH (20:24)
[2019-08-07] MEDS: predniSONE 2.5 MG TAB PO SCH (20:24)
[2019-08-07] MEDS: rOPINIRole 0.25 MG TAB(REQUIP) PO SCH (20:24)
[2019-08-07] MEDS: SENNA 8.6 MG TAB (SENOKOT) PO SCH (20:24)
[2019-08-07] MEDS: POTASSIUM CHLORIDE 10 MEQ SR TABLET PO SCH (20:24)
[2019-08-07] MEDS: FINASTERIDE 5 MG TAB PO SCH (20:24)
[2019-08-07] MEDS: MAGNESIUM SULFATE GRANULES(EPSOM SALT) 1LB TOP SCH (20:25)
[2019-08-07] MEDS: GABAPENTIN 100 MG CAP PO SCH (20:25)
[2019-08-07] MEDS ORDERED: traMADol 50 MG TAB PO ONE (23:00)
[2019-08-08 05:47] VITALS: BP 144/68
[2019-08-08] MEDS: OMEPRAZOLE 20 MG CAP PO SCH ×2 (06:07→11:19)
[2019-08-08 07:41] VITALS: BP 152/67
[2019-08-08] MEDS: LACTOBACILLUS ACIDOPHILUS CAP (BACID) PO SCH ×3 (07:41→17:02)
[2019-08-08] MEDS: atenoloL 25 MG TAB PO SCH (07:41)
[2019-08-08] MEDS: DOCUSATE SODIUM 100 MG CAP PO SCH ×3 (07:42→21:00)
[2019-08-08] MEDS: SODIUM CHLORIDE NASAL 0.65% SPRAY BTL (OCEAN) SCH ×3 (07:42→21:00)
[2019-08-08] MEDS: SUCRALFATE 1 GM TAB PO SCH ×4 (07:42→21:10)
[2019-08-08] MEDS: APIXABAN 2.5 MG TAB (ELIQUIS) PO SCH ×2 (07:42→21:11)
[2019-08-08] MEDS: FENOFIBRATE 145 MG TAB (TRICOR) PO SCH (07:42)
[2019-08-08] MEDS: MIRALAX *UNIT DOSE* 17GM PACKET PO SCH (07:43)
[2019-08-08] MEDS: AMIODARONE 200 MG TAB (PACERONE) PO SCH (07:43)
[2019-08-08] MEDS: guaiFENesin 200 MG TAB PO SCH ×3 (07:43→21:11)
[2019-08-08] MEDS: predniSONE 5 MG TAB PO SCH (07:43)
[2019-08-08] MEDS: FERROUS SULFATE 325MG TAB PO SCH (07:43)
[2019-08-08] MEDS: MAGNESIUM CHLORIDE 64 MG TABCR (SLO MAG) PO SCH (07:43)
[2019-08-08] MEDS: BISACODYL 10 MG SUPP PR SCH (07:44)
[2019-08-08] MEDS: COMBIVENT RESPIMAT 100-20MCG INHALER 4GM INH SCH ×4 (07:49→20:18)
[2019-08-08] MEDS: REMEDY PHYTOPLEX Z-GUARD PASTE 113GM TUBE (FROM STOREROOM PRODUCT) TOP SCH ×3 (08:16→21:10)
[2019-08-08 09:46] LABS: BASO # 0.1 10^3/uL (0.0-0.2); BASO % 0.8 % (0.0-1.0); EOS % 0.2 % (0.0-3.0); HEMATOCRIT 37.6 % (42.0-52.0); HEMOGLOBIN 11.8 g/dl (13.5-17.5); LYMPH # 0.7 10^3/uL (1.5-5.0); LYMPH % 6.9 % (24.0-44.0); MEAN CORPUSCULAR HEMOGLOBIN 29.8 pg (27.0-33.0); MEAN CORPUSCULAR HGB CONC 31.4 g/dl (32.0-36.5); MEAN CORPUSCULAR VOLUME 94.9 fl (80.0-96.0); MONO # 1.2 10^3/uL (0.0-0.8); MONO % 12.7 % (0.0-5.0); NEUTROPHILS # 7.2 10^3/uL (1.5-8.5); PLATELET COUNT, AUTOMATED 226 10^3/uL (150-450); RED BLOOD COUNT 3.96 10^6/uL (4.30-6.10); WHITE BLOOD COUNT 9.6 10^3/uL (4.0-10.0)
[2019-08-08 10:02] LABS: BLOOD UREA NITROGEN 17 MG/DL (7-18); CALCIUM LEVEL 8.3 MG/DL (8.8-10.2); CARBON DIOXIDE LEVEL 36 MEQ/L (21-32); CHLORIDE LEVEL 106 MEQ/L (98-107); CREATININE FOR GFR 1.17 MG/DL (0.70-1.30); GLOMERULAR FILTRATION RATE > 60.0 (>35); GLUCOSE, FASTING 144 MG/DL (70-100); POTASSIUM SERUM 4.2 MEQ/L (3.5-5.1); SODIUM LEVEL 144 MEQ/L (136-145)
[2019-08-08] MEDS: ACETAMINOPHEN TAB 650MG DOSE (2X325MG) PO PRN (11:19)
[2019-08-08 14:00] VITALS: BP 101/56
[2019-08-08 19:33] VITALS: BP 123/65
[2019-08-08] MEDS: MAGNESIUM SULFATE GRANULES(EPSOM SALT) 1LB TOP SCH (21:00)
[2019-08-08] MEDS: SENNA 8.6 MG TAB (SENOKOT) PO SCH (21:00)
[2019-08-08] MEDS: RAMELTEON 8 MG TAB (ROZEREM) PO SCH (21:10)
[2019-08-08] MEDS: TAMSULOSIN 0.4 MG CAP PO SCH (21:10)
[2019-08-08] MEDS: FINASTERIDE 5 MG TAB PO SCH (21:11)
[2019-08-08] MEDS: GABAPENTIN 100 MG CAP PO SCH (21:11)
[2019-08-08] MEDS: predniSONE 2.5 MG TAB PO SCH (21:11)
[2019-08-08] MEDS: POTASSIUM CHLORIDE 10 MEQ SR TABLET PO SCH (21:11)
[2019-08-08] MEDS: rOPINIRole 0.25 MG TAB(REQUIP) PO SCH (21:11)
[2019-08-09 05:19] VITALS: BP 118/63
[2019-08-09] MEDS: ONDANSETRON 4 MG ORAL DISINTEGRATING TAB SL PRN (05:32)
[2019-08-09] MEDS: OMEPRAZOLE 20 MG CAP PO SCH ×2 (05:32→12:37)
[2019-08-09] MEDS: MIRALAX *UNIT DOSE* 17GM PACKET PO SCH (07:51)
[2019-08-09] MEDS: predniSONE 5 MG TAB PO SCH (07:52)
[2019-08-09] MEDS: MAGNESIUM CHLORIDE 64 MG TABCR (SLO MAG) PO SCH (07:52)
[2019-08-09] MEDS: SUCRALFATE 1 GM TAB PO SCH ×2 (07:52→12:37)
[2019-08-09] MEDS: FERROUS SULFATE 325MG TAB PO SCH (07:52)
[2019-08-09] MEDS: APIXABAN 2.5 MG TAB (ELIQUIS) PO SCH (07:52)
[2019-08-09] MEDS: guaiFENesin 200 MG TAB PO SCH (07:52)
[2019-08-09] MEDS: AMIODARONE 200 MG TAB (PACERONE) PO SCH (07:53)
[2019-08-09] MEDS: DOCUSATE SODIUM 100 MG CAP PO SCH (07:53)
[2019-08-09] MEDS: TORSEMIDE 10 MG TABLET PO SCH (07:53)
[2019-08-09] MEDS: atenoloL 25 MG TAB PO SCH (07:54)
[2019-08-09] MEDS: FENOFIBRATE 145 MG TAB (TRICOR) PO SCH (07:54)
[2019-08-09] MEDS: LACTOBACILLUS ACIDOPHILUS CAP (BACID) PO SCH ×2 (07:54→12:37)
[2019-08-09] MEDS: REMEDY PHYTOPLEX Z-GUARD PASTE 113GM TUBE (FROM STOREROOM PRODUCT) TOP SCH (07:55)
[2019-08-09] MEDS: SODIUM CHLORIDE NASAL 0.65% SPRAY BTL (OCEAN) SCH (07:55)
[2019-08-09] MEDS: BISACODYL 10 MG SUPP PR SCH (07:55)
[2019-08-09] MEDS: COMBIVENT RESPIMAT 100-20MCG INHALER 4GM INH SCH ×2 (08:07→11:23)
[2019-08-09] MEDS ORDERED: ATEN25TA PO (11:42)
[2019-08-09] MEDS ORDERED: REQU1TAB14 PO (11:42)
[2019-08-09] MEDS ORDERED: SYMB16INH INH (11:42)
[2019-08-09] MEDS ORDERED: OMEP40CA97 PO (11:42)
[2019-08-09] MEDS ORDERED: AMIO200T PO (11:42)
[2019-08-09] MEDS ORDERED: PRED5TA PO (11:42)
[2019-08-09] MEDS ORDERED: RISATAB3 PO (11:42)
[2019-08-09] MEDS ORDERED: FINA5TAB2 PO (11:42)
[2019-08-09] MEDS ORDERED: FERR325T18 PO (11:42)
[2019-08-09] MEDS ORDERED: PRED25TA PO (11:42)
[2019-08-09] MEDS ORDERED: RAME8TAB2 PO (11:42)
[2019-08-09] MEDS ORDERED: ELIQ2.5T PO (11:42)
[2019-08-09] MEDS ORDERED: LEVAINH INH (11:42)
[2019-08-09] MEDS ORDERED: TORS10TA3 PO (11:42)
[2019-08-09] MEDS ORDERED: MAGN64TASA PO (11:42)
[2019-08-09] MEDS ORDERED: CARD120C3 PO (11:42)
[2019-08-09] MEDS ORDERED: KLOR10TA76 PO (11:42)
[2019-08-09] MEDS ORDERED: SUCR1TA PO (11:42)
[2019-08-09] MEDS ORDERED: FENO160T10 PO (11:42)
[2019-08-09] MEDS ORDERED: GABA-1171 PO (11:42)
[2019-08-09] MEDS ORDERED: FLOM0.4C39 PO (11:42)
== END 2019-08-09 14:30 | disposition home health service (06) | DRG 948 ==
LOC: M PM&R 17:29
PROVIDERS: ADMIT Physical Medicine & Rehabilitation; ATTEND Physical Medicine & Rehabilitation
PROC: 30233N1 Transfusion of Nonautologous Red Blood Cells into Peripheral Vein, Percutaneous Approach (ICD-10-PCS; principal; 2019-08-04)
DX: R53.1 Weakness (principal); I13.0 Hypertensive heart and chronic kidney disease with heart failure and stage 1 through stage 4 chronic kidney disease, or unspecified chronic kidney disease; J96.11 Chronic respiratory failure with hypoxia; N39.0 Urinary tract infection, site not specified; I48.20 Chronic atrial fibrillation, unspecified; J44.9 Chronic obstructive pulmonary disease, unspecified; R26.9 Unspecified abnormalities of gait and mobility; L89.152 Pressure ulcer of sacral region, stage 2; I49.5 Sick sinus syndrome; Z66 Do not resuscitate; E78.5 Hyperlipidemia, unspecified; N18.3 Chronic kidney disease, stage 3 (moderate); G25.81 Restless legs syndrome; R30.0 Dysuria; M79.672 Pain in left foot; D50.0 Iron deficiency anemia secondary to blood loss (chronic); M79.671 Pain in right foot; I50.9 Heart failure, unspecified; R11.2 Nausea with vomiting, unspecified; B96.4 Proteus (mirabilis) (morganii) as the cause of diseases classified elsewhere; K21.9 Gastro-esophageal reflux disease without esophagitis; Z79.01 Long term (current) use of anticoagulants; Z79.82 Long term (current) use of aspirin; Z79.52 Long term (current) use of systemic steroids; Z99.81 Dependence on supplemental oxygen; Z95.0 Presence of cardiac pacemaker; Z79.899 Other long term (current) drug therapy; Z87.891 Personal history of nicotine dependence; Z88.1 Allergy status to other antibiotic agents; Z88.8 Allergy status to other drugs, medicaments and biological substances

== ENCOUNTER 2019-09-16 14:01 | Emergency (ER) | payer MEDICARE ==
[~2019-09-16 14:01] MED LIST changes: -AMIO200T PO; +AMIO200T3 PO; -ASPI81TA85 PO; +ASPI81TA86 PO; +CARD120C3 PO; +FERR325T18 PO; +FLOM0.4C39 PO; +GABA-1171 PO; +KETO2CR TOP; +KLOR10TA76 PO; +PEG1POW PO; +PRED25TA PO; +RAME8TAB2 PO; +RISATAB3 PO; +SUCR1TA PO
[2019-09-16] MEDS ORDERED: NS 1,000 ML IV SCH (14:54)
[2019-09-16] MEDS ORDERED: ONDANSETRON 4MG/2ML VIAL IV ONE (15:00)
[2019-09-16 15:01] LABS: BASO # 0.1 10^3/uL (0.0-0.2); BASO % 0.6 % (0.0-1.0); EOS # 0.1 10^3/uL (0.0-0.5); EOS % 0.7 % (0.0-3.0); HEMATOCRIT 34.4 % (42.0-52.0); HEMOGLOBIN 10.8 g/dl (13.5-17.5); LYMPH # 0.6 10^3/uL (1.5-5.0); LYMPH % 7.3 % (24.0-44.0); MEAN CORPUSCULAR HEMOGLOBIN 28.7 pg (27.0-33.0); MEAN CORPUSCULAR HGB CONC 31.4 g/dl (32.0-36.5); MEAN CORPUSCULAR VOLUME 91.5 fl (80.0-96.0); MONO # 1.4 10^3/uL (0.0-0.8); MONO % 16.3 % (0.0-5.0); NEUTROPHILS # 6.2 10^3/uL (1.5-8.5); NEUTROPHILS % 70.5 % (36.0-66.0); PLATELET COUNT, AUTOMATED 168 10^3/uL (150-450); RED BLOOD COUNT 3.76 10^6/uL (4.30-6.10); WHITE BLOOD COUNT 8.7 10^3/uL (4.0-10.0)
[2019-09-16 15:37] LABS: ALBUMIN 2.9 GM/DL (3.2-5.2); BILIRUBIN,DIRECT 0.3 MG/DL (0.0-0.2); BILIRUBIN,TOTAL 0.7 MG/DL (0.2-1.0); CALCIUM LEVEL 8.4 MG/DL (8.8-10.2); CREATININE FOR GFR 1.38 MG/DL (0.70-1.30); GLOMERULAR FILTRATION RATE 52.3 (>35); POTASSIUM SERUM 4.3 MEQ/L (3.5-5.1); TOTAL PROTEIN 5.5 GM/DL (6.4-8.2)
[2019-09-16] MEDS ORDERED: ISOVUE-370 76% 100ML VIAL As Ordered ONE (16:27)
--- NOTE | 2019-09-16 17:37 | REP ---
CT ABDOMEN AND PELVIS WITH IV BUT WITHOUT ORAL CONTRAST: HISTORY: Nausea, vomiting. Comparison CT study, March 04, 2019. CT CONTRAST DOSE: 100 mL of intravenous Isovue 370 is administered. FINDINGS: Preliminary digital photogrammetric surveyor radiograph is unremarkable. There are fibrotic and emphysematous changes in the lung bases bilaterally. No pleural effusion is seen. There is mild diffuse fatty infiltration of the liver. There is a granulomatous calcification in the left lobe of the liver. There is a 12 mm cyst in the anterior edge of the liver. No focal liver mass lesion is seen. No abnormality is noted the gallbladder. There is a tiny hemangioma in the anterior tip of the spleen, and there is a small accessory splenule. No adrenal abnormality is observed. There is some cortical atrophy and scarring in the kidneys. There is a cyst in the posterior cortex of the right kidney measuring 13 mm. A peripheral cyst is seen at the left mid kidney measuring 13 mm. This is smaller than it was on March 04, 2019. No renal mass or hydronephrosis is observed. There is vascular calcification. Normal caliber aorta is seen. Normal appendix is seen in the right lower quadrant. Small and large bowel loops are unremarkable in the abdomen and pelvis. There is some diverticulosis affecting the sigmoid colon but no CT evidence of diverticulitis is seen. There are dystrophic calcifications in the mildly enlarged prostate gland. Seminal vesicles and urinary bladder are unremarkable. No bony destructive lesion is appreciated. IMPRESSION: Mild fatty infiltration of the liver. Small renal and hepatic cysts. Vascular calcification. Left colonic diverticulosis. Otherwise negative. Electronically Signed by Miller El MD 09/17/2019 08:44 A
[2019-09-16 18:30] VITALS: BP 153/77
== END 2019-09-16 19:30 | disposition home or self-care (01) ==
LOC: EDBD 14:01 → M ED 14:01
DX: R11.0 Nausea (principal); B97.10 Unspecified enterovirus as the cause of diseases classified elsewhere; J45.909 Unspecified asthma, uncomplicated; I10 Essential (primary) hypertension; N18.9 Chronic kidney disease, unspecified; I48.91 Unspecified atrial fibrillation; K21.9 Gastro-esophageal reflux disease without esophagitis; Q61.3 Polycystic kidney, unspecified; G25.81 Restless legs syndrome; Z99.81 Dependence on supplemental oxygen; Z79.899 Other long term (current) drug therapy; Z79.01 Long term (current) use of anticoagulants; Z88.1 Allergy status to other antibiotic agents; Z88.8 Allergy status to other drugs, medicaments and biological substances; Z87.891 Personal history of nicotine dependence
CPT/HCPCS: 74177; 80048; 80076; 83690; 85025; 87486; 87581; 87633; 87798; 93041; 96361; 96374; 99285; J2405; Q9967

== ENCOUNTER 2019-09-21 13:43 | Inpatient (IN) | payer MEDICARE ==
[~2019-09-21] VITALS: Ht 170.2 cm; Wt 61.5 kg
[2019-09-21 14:51] LABS: BASO % 0.5 % (0.0-1.0); EOS % 0.4 % (0.0-3.0); HEMATOCRIT 33.7 % (42.0-52.0); LYMPH # 0.7 10^3/uL (1.5-5.0); LYMPH % 8.4 % (24.0-44.0); MEAN CORPUSCULAR HEMOGLOBIN 29.3 pg (27.0-33.0); MEAN CORPUSCULAR HGB CONC 32.6 g/dl (32.0-36.5); MEAN CORPUSCULAR VOLUME 89.6 fl (80.0-96.0); MONO # 1.1 10^3/uL (0.0-0.8); MONO % 13.6 % (0.0-5.0); NEUTROPHILS # 5.8 10^3/uL (1.5-8.5); NEUTROPHILS % 73.1 % (36.0-66.0); PLATELET COUNT, AUTOMATED 205 10^3/uL (150-450); RED BLOOD COUNT 3.76 10^6/uL (4.30-6.10); WHITE BLOOD COUNT 7.9 10^3/uL (4.0-10.0)
[2019-09-21] MEDS ORDERED: NS 500 ML IV ONE (15:00)
[2019-09-21] MEDS ORDERED: ONDANSETRON 4MG/2ML VIAL IV ONE (15:00)
[2019-09-21 15:24] LABS: ALBUMIN 2.8 GM/DL (3.2-5.2); BILIRUBIN,DIRECT 0.3 MG/DL (0.0-0.2); BILIRUBIN,TOTAL 0.6 MG/DL (0.2-1.0); CALCIUM LEVEL 8.9 MG/DL (8.8-10.2); CREATININE FOR GFR 1.93 MG/DL (0.70-1.30); GLOMERULAR FILTRATION RATE 35.5 (>35); POTASSIUM SERUM 3.4 MEQ/L (3.5-5.1); TOTAL PROTEIN 5.8 GM/DL (6.4-8.2)
[2019-09-21] MEDS ORDERED: NS 1,000 ML IV SCH (16:30)
[2019-09-21] MEDS ORDERED: POTASSIUM CHLORIDE 10 MEQ SR TABLET PO ONE (16:45)
[2019-09-21] MEDS ORDERED: POTA10TA17 PO (17:12)
[2019-09-21] MEDS ORDERED: SYMB16INH INH (17:12)
[2019-09-21] MEDS ORDERED: ROZE8TAB16 PO (17:12)
[2019-09-21] MEDS ORDERED: PEGPOW PO (17:12)
[2019-09-21] MEDS ORDERED: SUCR1TAB56 PO (17:12)
[2019-09-21] MEDS ORDERED: ATEN25TA PO (17:12)
[2019-09-21] MEDS ORDERED: PARO20TA3 PO (17:12)
[2019-09-21] MEDS ORDERED: LEVAINH INH (17:12)
[2019-09-21] MEDS ORDERED: TRAM50TA2 PO (17:12)
[2019-09-21] MEDS ORDERED: GABA-1171 PO (17:12)
[2019-09-21] MEDS ORDERED: ONDA-83 PO (17:12)
[2019-09-21] MEDS ORDERED: RISATAB3 PO (17:12)
[2019-09-21] MEDS ORDERED: DILT120C89 PO (17:12)
[2019-09-21] MEDS ORDERED: FERR1TAB8 PO (17:12)
[2019-09-21] MEDS ORDERED: OMEP-221 PO (17:12)
[2019-09-21] MEDS ORDERED: FENO160T10 PO (17:12)
[2019-09-21] MEDS ORDERED: PRED25TA PO (17:12)
[2019-09-21] MEDS ORDERED: TORS10TA3 PO (17:12)
[2019-09-21] MEDS ORDERED: LEVALBUTEROL HFA 45MCG/ACT 15 GM INHALER INH PRN (17:45)
[2019-09-21] MEDS ORDERED: MAG SULF 1GM/100ML (MAG RUN) 1 GM in IV 1 EA IV ONE (18:00)
--- NOTE | 2019-09-21 19:08 | REPVR ---
PROCEDURE INFORMATION: Exam: US Retroperitoneal Limited, Kidneys Exam date and time: 09/21/2019 6:45 PM Age: 83 years old Clinical indication: Abnormal findings; Abnormal lab test; Abnormal kidney function lab tests; Additional info: Shamar on ckd TECHNIQUE: Imaging protocol: Real-time ultrasound of the retroperitoneum with image documentation. Examination was focused on the kidneys. COMPARISON: RENAL US 08/25/2017 9:35 AM FINDINGS: Right kidney: Right kidney measures up to 10.6 centimetres in length. Possible isoechoic rounded mass involving the right knee kidney measures up to 3.8 centimetres. This is not convincingly identified on recent CT examination. Left kidney: Left kidney measures up to 9.6 centimetres in length. Small exophytic left renal cyst measures up to 9 mm. Small calcification involving the cortex of the left kidney. Prostate: Prostate gland measures 3.4 x 3.2 by 4.1 centimetres. Bladder: Small urinary bladder diverticulum. IMPRESSION: 1. No hydronephrosis. 2. Questionable isoechoic right renal mass measuring up to 3.8 centimetres, not convincingly visualized on recent CT examination. Nonemergent MRI may be considered. 3. Additional findings as above. Electronically signed by: Klaus Caballero On 09/21/2019 19:08:49 PM
[2019-09-21] MEDS ORDERED: PROMETHAZINE INJ 25 MG/ML VIAL (J2550) IV SCH (21:00)
[2019-09-21] MEDS ORDERED: atenoloL 25 MG TAB PO SCH (21:00)
[2019-09-21] MEDS ORDERED: SUCRALFATE 1 GM TAB PO SCH (21:00)
[2019-09-21] MEDS: METOCLOPRAMIDE INJ 10MG/2ML VIAL (J2765 PER 1) IV SCH ×2 (21:01→23:04)
[2019-09-21 21:09] VITALS: BP 126/67
[2019-09-21] MEDS: PANTOPRAZOLE 40MG VIAL (C9113 PER 1) IV SCH (21:18)
[2019-09-21] MEDS: GABAPENTIN 100 MG CAP PO SCH (21:19)
[2019-09-21] MEDS: TAMSULOSIN 0.4 MG CAP PO SCH (21:19)
[2019-09-21] MEDS: APIXABAN 2.5 MG TAB (ELIQUIS) PO SCH (21:19)
[2019-09-21] MEDS: predniSONE 2.5 MG TAB PO SCH (21:32)
[2019-09-21] MEDS: rOPINIRole 0.25 MG TAB(REQUIP) PO SCH (21:32)
[2019-09-21] MEDS: RAMELTEON 8 MG TAB (ROZEREM) PO SCH (21:32)
[2019-09-21] MEDS: FINASTERIDE 5 MG TAB PO SCH (21:33)
[2019-09-21] MEDS: POTASSIUM CHLORIDE 10 MEQ SR TABLET PO SCH (23:03)
--- NOTE | 2019-09-22 00:28 | HPE ---
DATE OF ADMISSION: 09/21/2019 CHIEF COMPLAINT: Intractable nausea, vomiting. HISTORY OF PRESENTING ILLNESS: This is an 83-year-old DO NOT RESUSCITATE, DO NOT INTUBATE male with a history of COVID-19 positive in June, discharged 08/09/2019, at which time he presented with respiratory and gastrointestinal (GI) symptoms, treated in the intensive care unit (ICU), then discharged to rehab and discharged from the hospital from [facility] on 11/09/2019. The patient says that he has been having nausea and vomiting for several years, usually when he gets up in the morning, he feels like he has morning sickness and usually gags and dry heaves. About a week ago, he had intractable nausea and vomiting, unable to eat with a 9-pound weight loss. He tries to drink water and tea, about a glass and a half and sips of tea, but he has been unable to keep any solid diet down. He says that he feels "awful the whole day" with a lot of saliva and dry heaving, sometimes with bilious vomiting and with dysgeusia with awful tasting food. The patient was seen in the emergency room (ER) on 09/16/2019 for which he was tested for COVID-19, which was negative. CT abdomen and pelvis was unremarkable and was sent home after IV fluid hydration. He now presents with intractable symptoms. He had diarrhea awhile back, but not in the past week. He had not eaten much and has not taken his diuretics since he has been vomiting. The patient says that he lives with his daughter who takes turns with the other daughter. His lives with a different daughter in [place]. She is comfort measures only now. He has been managing well at home. Denies any fever, chills, abdominal pain. Denies any diarrhea at this time. He has no shortness of breath, no chills, no dysuria, urgency, frequency, flank pain. No upper or lower extremity weakness, just complains of generalized fatigue from dry heaving. Previous esophagogastroduodenoscopy (EGD) was with Dr. Dwight Brooks in 2016, which showed hiatal hernia and gastric-type mucosa found in the esophagus. He has not had any EGD or colonoscopy since. He had been seen by Dr. Monae, his primary care physician, who says that he is not strong enough to undergo any endoscopy. The patient denies any hematemesis, coffee-ground emesis, bright red blood per rectum, melena, or black, tarry stools. He does take chronic iron at home but no changes in bowel movements. He had a bowel movement this morning, which was formed. He denies any shortness of breath, lightheadedness or dizziness. No chest pain, pressure, or tightness. Patient denies any rhinorrhea, sore throat, vertigo, changes in vision. No other complaints. In the ER, he was found to have acute on chronic renal failure, baseline creatinine of 1.17 in July 2019, currently 1.98. Hospitalist was asked to admit for intractable nausea, vomiting, dehydration, acute on chronic renal failure. Respiratory panel done on 09/16/2019 showed Human Enterovirus/Rhinovirus. PAST MEDICAL HISTORY: Chronic kidney disease, stage III. Bilateral renal cysts. Restless legs. Hematuria. 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 Watchman procedure. Atrial fibrillation with cardiac ablation. Hypertension. Reflux. Hyperlipidemia. Chronic hypoxic respiratory failure, on two liters of oxygen Chronic obstructive pulmonary disease (COPD). COVID-19 positive June 2019 with pneumonia. PAST SURGICAL HISTORY: Permanent pacemaker 2002, in 2011 ablation, December 2018 Watchman procedure. ALLERGIES: To FLUCONAZOLE, FLUTICASONE, METFORMIN, PETROLATUM, AZITHROMYCIN, CLARITHROMYCIN, and PROCAINE. DISCHARGE MEDICATIONS: - amiodarone 200 mg daily - apixaban 2.5 mg twice a day - Tylenol 1 gram every 8 hours as needed - atenolol 25 mg twice a day - Symbicort two puffs inhaled twice a day - diltiazem 120 mg daily - ferrous sulfate 325 mg daily - finasteride 5 mg nightly - gabapentin 100 mg nightly - lactobacillus one before food - Xopenex two puffs every 6 hours as needed - Mag ox 64 mg daily - Zofran 4 mg four times a day as needed - Paxil 20 mg daily - MiraLAX 17 daily - potassium 10 mEq every evening - prednisone 2.5 mg every evening - prednisone 5 mg every morning - Rozerem 8 mg nightly - ropinirole 0.25 mg nightly - Carafate 1 gram before food and nightly - tamsulosin 0.4 mg nightly - torsemide 10 mg daily - tramadol 50 mg every 6 hours - fenofibrate 160 mg daily - fish oil 1.2 grams twice a day - omeprazole 40 mg daily SOCIAL HISTORY: 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 His lives with another daughter, and she is currently comfort measures only. Patient is DO NOT RESUSCITATE, DO NOT INTUBATE. Medical Orders for Life-Sustaining Treatment (MOLST) form was done by Dr Christine Taylor in March of 2019. Signed form has been scanned to electronic medical record (EMR). Patient denies any active smoking. No recreational drug use. No alcohol use. FAMILY HISTORY: Father , coronary artery disease, myocardial infarction ([place]). REVIEW OF SYSTEMS: Per history of the present illness; 12-point system otherwise negative. PHYSICAL EXAM: Temperature 99.4, pulse 70, respiratory rate 18, blood pressure 113/58, 96% two liters nasal cannula. Generally, patient is awake, alert, oriented to person, place and time, answering questions appropriately. No respiratory distress, able to speak in full sentences. HEENT: Anicteric sclerae. No jaundice. Dry mucous membranes. No jugular venous distention (JVD), thyromegaly, no cervical lymphadenopathy. Lungs are clear to auscultation. No wheezing, rales or rhonchi. Heart: S1, S2, sinus rhythm. No murmurs, rubs, or gallops. Abdomen is soft, nontender, nondistended. Positive bowel sounds. No rebound or guarding. No abdominal bruits. Extremities: No cyanosis, clubbing or pitting edema. LABORATORY DATA: White count is 7.9, hemoglobin 11, hematocrit 33, platelet count 205. Sodium 139, potassium 3.4, chloride 100, bicarbonate 34, BUN 22, creatinine 1.93, glucose 126, previous creatinine 1.17, lactic acid is pending, magnesium 1.6, total bilirubin 0.6, direct bilirubin 0.3, AST 26, ALT 20, alkaline phosphatase 30, total protein 5.8, albumin of 2.8, lipase 167. Procalcitonin and respiratory panel pending. ASSESSMENT AND PLAN: This is an 83-year-old male with a history of COVID-19 positive in June, discharged from the hospital on 08/09/2019, treated for pneumonia at that time in the ICU, history of atrial fibrillation, sick sinus syndrome, tachybrady with Watchman procedure, ablation, and pacemaker placement, COPD, on two liters of home oxygen, chronic kidney disease, stage III, with multiple renal cysts, baseline creatinine of 1.17 with chronic kidney disease stage III, presents to the emergency room with intractable nausea and vomiting for the past week with increase in creatinine to 1.93. The patient had a prior EGD done by Dr. Brooks in 2015, which showed gastric-type mucosa on the esophagus with mild inflammation and hiatal hernia. Patient has been on Prilosec, as well as Carafate without improvement. Per Dr. Monae, his primary care physician, he is too ill to proceed with any endoscopy. He now returns with intractable symptoms after being seen on 09/16/2019, hydrated with persistent symptoms and new stage III renal failure. IMPRESSION: 1. Acute dehydration secondary to intractable nausea and vomiting, currently with worsening renal function, stage III from baseline of stage II chronic kidney disease. He has received 500 mL normal saline bolus in the ER, but will continue with IV fluids throughout the evening with normal saline, monitor for worsening respiratory status. Renal ultrasound has been approved to rule out obstructive causes or obstructive uropathy. Dr. Wagoner has been consulted due to prior history of renal cyst with questionable history of polycystic kidney disease. 2. Intractable nausea and vomiting. Differential diagnosis includes hiatal hernia, worsening reflux, peptic ulcer disease. The patient had a previous EGD done in [address] Dwight Brooks showing gastric-type mucosa in the esophagus biopsy with hiatal hernia. He will be continued on his home dose of Carafate 1 gram before food and nightly, kept on a clear liquid diet for now due to intractable nausea, vomiting. IV fluid hydration with supportive care. Will begun on Reglan. Will obtain a gastric emptying scan in the morning to rule out gastroparesis, and upper GI series. If unable to obtain, an EGD will be done on . The patient will be continued on Bacid to decrease risk of Clostridium difficile (C diff) infection due to prior COVID-19 positive status with same presenting symptoms of nausea and vomiting. Repeat COVID testing will be done today. If negative, patient may go to a regular medical-surgical floor. 3. Chronic obstructive pulmonary disease with home oxygen with chronic hypoxic respiratory failure. He is prednisone dependent, continued on prednisone, as well as home oxygen. Keep saturations 88-92%. 4. Chronic atrial fibrillation. Status post ablation, tachybrady and pacemaker. He is currently on amiodarone, apixaban, and atenolol, which all have been resumed. 5. Chronic neuropathy, on gabapentin. 6. Insomnia, on Ramelteon. 7. Deep vein thrombosis (DVT) prophylaxis with Lovenox, which will be discontinued since he is currently on apixaban. 8. BPH, on chronic Flomax. 9. Restless legs, on ropinirole. Code status is DO NOT RESUSCITATE, DO NOT INTUBATE. MTDD
--- NOTE | 2019-09-22 03:38 | REP ---
REASON: Intractable nausea and vomiting. COMPARISON: 08/03/2019 There are a few gas-filled small bowel loops in the abdomen without dilatation or evidence of intestinal obstruction. The organ silhouettes are unchanged. The osseous structures are unchanged. IMPRESSION: Mild small bowel ileus is suspected. Electronically Signed by Mitul Gallo DO 09/22/2019 08:40 A
[2019-09-22 04:10] VITALS: BP 104/62
[2019-09-22] MEDS: METOCLOPRAMIDE INJ 10MG/2ML VIAL (J2765 PER 1) IV SCH ×4 (05:59→23:34)
[2019-09-22 07:15] LABS: MEAN CORPUSCULAR HEMOGLOBIN 28.7 pg (27.0-33.0); MEAN CORPUSCULAR HGB CONC 31.4 g/dl (32.0-36.5); MEAN CORPUSCULAR VOLUME 91.2 fl (80.0-96.0); PLATELET COUNT, AUTOMATED 168 10^3/uL (150-450); RED BLOOD COUNT 3.07 10^6/uL (4.30-6.10); WHITE BLOOD COUNT 5.7 10^3/uL (4.0-10.0)
[2019-09-22 07:18] LABS: HEMOGLOBIN 8.8 g/dl (13.5-17.5)
[2019-09-22 07:30] LABS: CALCIUM LEVEL 8.1 MG/DL (8.8-10.2); CREATININE FOR GFR 1.61 MG/DL (0.70-1.30); GLOMERULAR FILTRATION RATE 43.7 (>35); POTASSIUM SERUM 3.7 MEQ/L (3.5-5.1)
[2019-09-22] MEDS: LACTOBACILLUS ACIDOPHILUS CAP (BACID) PO SCH ×3 (07:30→17:58)
[2019-09-22] MEDS: predniSONE 5 MG TAB PO SCH (09:00)
[2019-09-22] MEDS ORDERED: ENOXAPARIN 30MG/0.3ML SYRINGE (J1650 PER 10MG) SC SCH (09:00)
[2019-09-22] MEDS ORDERED: MAGNESIUM CHLORIDE 64 MG TABCR (SLO MAG) PO SCH (09:00)
--- NOTE | 2019-09-22 09:38 | ECGEPIP ---
[facility] - ED Test Date: 2019-09-21 Pat Name: MARCY LEE Department: Room: - Gender: Male Senior Principal: ALBERTINA : 1935 Requested By: DEBBIE Neal Order Number: [id number] Reading MD: Alex Sarmiento Measurements Intervals [place] Rate: 69 P: -77 TN: 336 QRS: -19 QRSD: 87 T: 47 QT: 401 QTc: 432 Interpretive Statements ELECTRONIC ATRIAL PACEMAKER NONSPECIFIC T-WAVE ABNORMALITY SIMILAR TO 08/02/19 Electronically Signed on 09-22-2019 9:37:59 EDT by Alex Sarmiento
[2019-09-22 13:12] VITALS: BP 117/63
[2019-09-22] MEDS: D5W/0.9% SODIUM CHLORIDE 1,000 ML IV SCH (13:53)
[2019-09-22] MEDS: AMIODARONE 200 MG TAB (PACERONE) PO SCH (13:54)
[2019-09-22] MEDS: atenoloL 25 MG TAB PO SCH (13:54)
[2019-09-22] MEDS: PANTOPRAZOLE 40MG VIAL (C9113 PER 1) IV SCH ×2 (13:54→19:44)
[2019-09-22] MEDS: APIXABAN 2.5 MG TAB (ELIQUIS) PO SCH ×2 (13:55→19:44)
[2019-09-22] MEDS: predniSONE 2.5 MG TAB PO SCH (13:55)
--- NOTE | 2019-09-22 14:28 | REP ---
NUCLEAR GASTRIC EMPTYING SCAN: Following the oral administration of 1.03 millicuries technetium 99m sulfur colloid in two scrambled eggs and 6 ounces of water, multiple images of the upper abdomen are performed in the anterior and posterior projections. Imaging is performed for 90 minutes. Gastric activity is measured. At the end of 90 minutes, 31% of the ingested activity has emptied from the stomach. T-1/2 is calculated to be 139 minutes which is mildly elevated. IMPRESSION: Mildly delayed gastric emptying. Electronically Signed by Judah Schumacher MD 09/22/2019 07:36 P
--- NOTE | 2019-09-22 15:37 | REP ---
CHEST, SINGLE VIEW: Single view of the chest is performed and compared to prior studies, most recently 07/27/2019. There is no acute infiltrate, with no change since the prior studies. There is mild cardiomegaly. There is calcification of the thoracic aorta. Mediastinal silhouette is unchanged. Left dual-lead pacemaker is noted. IMPRESSION: No acute infiltrate. Electronically Signed by Judah Schumacher MD 09/22/2019 07:39 P
--- NOTE | 2019-09-22 16:37 | IPN ---
DATE: 09/22/2019 The patient was allergic to Phenergan which was discontinued. He is currently on IV Reglan with no recurrent complaints of any nausea or vomiting. No abdominal pain, fever, or chills. No shortness of breath or chest pain. He had an episode of cough this morning but no shortness of breath. No other issues per nursing. The patient had been on IV fluids overnight. Input of 1050, output of 325 yesterday and 225 from midnight. Current weight is 58.7 kg from 57.7 kg on admission. PHYSICAL EXAMINATION: VITAL SIGNS: Temperature 97.8, pulse 69, respiratory rate 18, blood pressure 117/63, 98% on two liters nasal cannula. GENERAL: The patient is awake, alert and oriented to person, place and time, answering questions appropriately. No respiratory distress. No cyanosis or icterus or jaundice. The patient has moist mucous membranes. No jugular venous distention (JVD) or thyromegaly. Lungs are diminished. No wheezing or rales. HEART: S1, S2, sinus rhythm. ABDOMEN: Soft, nontender, nondistended. Positive bowel sounds times four quadrants. EXTREMITIES: No pitting edema. LABORATORY DATA: White count 5.7, hemoglobin 8.8, hematocrit 28, platelet count 168. Sodium 142, potassium 3.7, chloride 106, bicarbonate 34, BUN 19, creatinine 1.61, improved from 1.93 on admission, glucose of 87, calcium 8.1, magnesium 1.6. ASSESSMENT AND PLAN: This is an 83-year-old male, DO NOT RESUSCITATE/DO NOT INTUBATE, with history of COVID-19 positive in June, discharged 08/09/2019 after being treated for pneumonia and had nausea and vomiting at that time, had bee ill for the past week with nausea, vomiting, episodes of diarrhea which subsided but with persistent nausea and vomiting, seen in the emergency room (ER), hydrated and discharged home on 09/16/2019. He was COVID negative. He presents due to a nine-pound weight loss and new acute on chronic renal failure with creatinine of 1.98. CT abdomen and pelvis was negative. The patient was given intravenous fluids, IV Reglan with resolution of the patient's symptoms. He had esophagogastroduodenoscopy (EGD) done in [address] Brooks which showed hiatal hernia and gastric-type mucosa in the esophagus. Overnight, the patient had significant improvement with IV fluid hydration. He says that he is not nauseated this morning and diet has been advanced from clears to a renal diet. Creatinine is improved but not quite at baseline yet. Nephrology has been consulted. The patient otherwise denies any dysuria, urgency, frequency, palpitations, lightheadedness, fevers, or chills. No shortness of breath despite being in positive balance. IMPRESSION: 1. Intractable nausea and vomiting in the setting of positive COVID testing on 09/21/2019. The patient was COVID negative on 09/16/2019 but has been in contact with his COVID positive who is cared for by his daughters at home. His daughters are alternating caring for him in one household and the mother in another household. Daughters are positive for COVID and is positive for COVID as well. Infectious disease specialist has been consulted. He current has human rhinovirus and enterovirus on respiratory panel as well. He does have a history of hiatal hernia in the past as well as an abnormal esophagogastroduodenoscopy (EGD) done by Dr. Dwight Brooks in 2016. To rule out gastroparesis, we have obtained a gastric emptying scan. He has improved significantly on Reglan 10 mg IV every six hours. He can be advanced on a renal diet as tolerated today. 2. Acute on chronic renal failure with history of multiple renal cysts. [facility], Dr. Wagoner, has been consulted. He has been much better on IV fluids overnight. Defer to Dr. Wagoner for changes in fluids and fluid balance. 3. COVID-19 positive. The patient is kept on isolation. He describes "no taste" with intractable nausea and vomiting. Defer to infectious disease specialist if there is any new recommendation. 4. Chronic atrial fibrillation. Currently on amiodarone. He is currently in sinus rhythm. He is continued on atenolol, diltiazem, as well as apixaban 2.5 mg twice a day. 5. Chronic neuropathy, on Neurontin 100 at bedtime. 6. Restless legs, on Requip. 7. Benign prostatic hypertrophy (BPH), on Flomax. 8. Chronic obstructive pulmonary disease (COPD), end-stage, prednisone- dependent, on 2.5 mg of prednisone every evening, Xopenex. 9. Chronic hypoxic respiratory failure, on two liters of oxygen at all times. Saturating 95% to 98%. DISPOSITION: If the patient tolerates an oral diet, creatinine is improved to baseline, may discharge home; however, await recommendations from infectious disease and nephrology. Acute rehabilitation unit (ARU) has been consulted. DARRELL
[2019-09-22] MEDS: POTASSIUM CHLORIDE 10 MEQ SR TABLET PO SCH (17:59)
--- NOTE | 2019-09-22 18:41 | IPNPDOC ---
Date Seen The patient was seen on 09/22/19. Progress Note daughter Ms. Arbolead, , worried about her 4yearold son who has been exposed to patient since 08/09/19 discharge. plan: daughter was advised that her son's window installation subcontractor should be alerted since her son is vomiting at home, and to have him evaluated. VS, I&O, 24H, Fishbone Vital Signs/I&O Vital Signs Date Time Temp Pulse Resp B/P (MAP) Pulse Ox O2 Delivery O2 Flow Rate FiO2 09/22/19 13:12 97.8 69 18 117/63 (81) 98 Nasal Cannula 2.0 I&O- Last 24 Hours up to 6 AM 09/22/19 06:00 Intake Total 1050 ml Output Total 550 ml Balance 500 ml Laboratory Data 24H LABS Laboratory Tests 2 09/22/19 06:54: Nucleated Red Blood Cells % (auto) 0.0, Anion Gap 2L, Glomerular Filtration Rate 43.7, Calcium Level 8.1L CBC/BMP Laboratory Tests 09/22/19 06:54 Microbiology Microbiology 09/21/19 Respiratory Virus Panel (PCR) (PEG) - Final, Complete SARS-CoV-2 (COVID 19) Human Rhinovirus/Enterovirus YUNI BILLINGS MD Sep 22, 2019 18:41
[2019-09-22 19:31] VITALS: BP 109/55
[2019-09-22] MEDS: rOPINIRole 0.25 MG TAB(REQUIP) PO SCH (19:44)
[2019-09-22] MEDS: TAMSULOSIN 0.4 MG CAP PO SCH (19:44)
[2019-09-22] MEDS: FINASTERIDE 5 MG TAB PO SCH (19:44)
[2019-09-22] MEDS: GABAPENTIN 100 MG CAP PO SCH (19:44)
[2019-09-22] MEDS ORDERED: ONDANSETRON 4MG/2ML VIAL IV PRN (21:15)
[2019-09-22] MEDS: RAMELTEON 8 MG TAB (ROZEREM) PO SCH ×2 (21:26→21:40)
[2019-09-23] MEDS: D5W/0.9% SODIUM CHLORIDE 1,000 ML IV SCH (03:33)
[2019-09-23 03:34] VITALS: BP 112/57
[2019-09-23] MEDS: METOCLOPRAMIDE INJ 10MG/2ML VIAL (J2765 PER 1) IV SCH ×4 (05:57→20:56)
[2019-09-23 07:56] LABS: HEMATOCRIT 27.5 % (42.0-52.0); HEMOGLOBIN 8.5 g/dl (13.5-17.5); MEAN CORPUSCULAR HEMOGLOBIN 28.4 pg (27.0-33.0); MEAN CORPUSCULAR HGB CONC 30.9 g/dl (32.0-36.5); PLATELET COUNT, AUTOMATED 160 10^3/uL (150-450); RED BLOOD COUNT 2.99 10^6/uL (4.30-6.10)
[2019-09-23] MEDS: LACTOBACILLUS ACIDOPHILUS CAP (BACID) PO SCH ×3 (07:58→18:24)
[2019-09-23] MEDS: PARoxetine 20MG TABLET PO SCH (07:58)
[2019-09-23] MEDS: AMIODARONE 200 MG TAB (PACERONE) PO SCH (07:59)
[2019-09-23] MEDS: predniSONE 5 MG TAB PO SCH (08:00)
[2019-09-23] MEDS: APIXABAN 2.5 MG TAB (ELIQUIS) PO SCH ×2 (08:00→20:57)
[2019-09-23] MEDS: atenoloL 25 MG TAB PO SCH (08:01)
[2019-09-23] MEDS: PANTOPRAZOLE 40MG VIAL (C9113 PER 1) IV SCH ×2 (08:01→20:56)
[2019-09-23 08:16] LABS: BLOOD UREA NITROGEN 17 MG/DL (7-18); CALCIUM LEVEL 7.8 MG/DL (8.8-10.2); CARBON DIOXIDE LEVEL 32 MEQ/L (21-32); CHLORIDE LEVEL 113 MEQ/L (98-107); CREATININE FOR GFR 1.19 MG/DL (0.70-1.30); GLOMERULAR FILTRATION RATE > 60.0 (>35); GLUCOSE, FASTING 114 MG/DL (70-100); MAGNESIUM LEVEL 1.8 MG/DL (1.8-2.4); POTASSIUM SERUM 3.6 MEQ/L (3.5-5.1); SODIUM LEVEL 149 MEQ/L (136-145)
[2019-09-23 08:58] LABS: FERRITIN 262 NG/ML (26-388); IRON (FE) 43 UG/DL (65-175); PERCENT SATURATION 20.5 % (19.7-50.0); TOTAL IRON BINDING CAPACITY 210 UG/DL (250-450)
--- NOTE | 2019-09-23 09:10 | CR ---
DATE OF CONSULTATION: 09/22/2019 REQUESTING PHYSICIAN: Dr. Bria Galindo CONSULTING PHYSICIAN: Dr. Wagoner REASON FOR CONSULTATION: Management of acute renal failure in the setting of a COVID-19 infection and Enterovirus infection. CHIEF COMPLAINT: The patient presented to the hospital yesterday with intractable nausea, vomiting and weakness. HISTORY OF PRESENT ILLNESS:: Mr. Pete Javed is an 83-year-old male with past medical history of chronic kidney disease stage III with a baseline creatinine of around 1.1-1.2. He is known to myself from the outpatient nephrology clinic. Unfortunately, recently he has been back and forth getting admitted to the hospital. Initially, he was admitted in June 2019 with COVID-19 infection. He was initially in the intensive care unit (ICU) and after supportive treatment and antibiotics he was transferred to the floor and from the floor he was transferred to the rehab unit. During that hospitalization, he had atrial fibrillation with rapid ventricular response (RVR) during COVID-19 infection as well and that was treated. This time, he presented to the ER with intractable nausea, vomiting, inability to keep the anything down and severe weakness. He was in the ER with the same symptoms on 09/16/2019 as well, but at that time his COVID-19 was negative and he was given IV fluid and he was sent home. However, after going home, his symptoms did not get better. Further evaluation and labs in the emergency room showed that the patient was positive for SARS COVID-19 infection and also positive for human rhinovirus enterovirus infection. The patient was also found to be in acute renal failure with a creatinine of 1.9. He was admitted under the hospitalist service in the special isolation COVID-19 unit. Nephrology service consult was requested for help in the management of this patient with acute renal failure. The patient is critically ill because of two viral infections. He needed my immediate attention. I saw the patient careers counsellor today at the bedside. He was getting IV fluid hydration and he reports that he is feeling slightly better today as compared with yesterday. He is breathing via nasal cannula and he denies any worsening of respiratory symptoms at this time. 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 PAST SURGICAL HISTORY: Status post permanent pacemaker placement in 2002, status post atrial fibrillation ablation in 2011, status post Watchman device placement in December 2018. ALLERGIES: - AZITHROMYCIN - FLUCONAZOLE - FLUTICASONE - METFORMIN - PROCAINE - PROMETHAZINE FAMILY HISTORY: No significant family history of end-stage renal disease. SOCIAL HISTORY: The patient is living at home with one of his daughters. His is on comfort measures only. He denies any smoking, illicit drug abuse or alcohol abuse. REVIEW OF SYSTEMS: Constitutional: The patient reports feeling very weak and tired Eyes: He denies any blurry vision or double vision. ENT: Denies any dysphagia or odynophagia. Cardiovascular: He reports history of atrial fibrillation and palpitations. Respiratory: He is COVID-19 positive and he is on his baseline oxygen supplementation. GI: He reports nausea, vomiting and decreased appetite along with loose stools. Genitourinary: He reports decreased urine output. Musculoskeletal: He reports muscle weakness and fatigue. Skin: He denies any rashes or ulcers. Hematology/Oncology: He denies any easy bleeding or bruising. Endocrine: He denies any hyperthyroidism or hypothyroidism. Psych: He reports depressed mood. PUTTY TINTER MAKER: He denies any strokes or seizures. All other review of systems is negative. PHYSICAL EXAMINATION: General: The patient is awake, alert, oriented x3, in mild respiratory distress, laying in bed. Vital Signs: Temperature is at 96.3 degrees Fahrenheit, blood pressure 104/62, pulse is 70, respiratory rate of 16, saturating 95% on nasal cannula at 2 liters. Intake and Output: Urine output recorded as 325 mL yesterday and 750 mL so far today since overnight. Weight in the bed scale is 58.7 kg. Head and Neck Exam: Extraocular muscles intact. Pupils equally round and reactive to light. Mucous membranes are slightly dry. He is wearing a nasal cannula. Neck is supple. There is no jugular venous distention (JVD). Cardiovascular: S1, S2, irregularly irregular heart rate. Respiratory: Mildly decreased breath sounds at the bases, otherwise no active rales or rhonchi. He is wearing a nasal cannula. Abdomen: Soft. Hyperactive bowel sounds. Nontender. No organomegaly was noted. Genitourinary: Bladder is not palpable. Musculoskeletal: No clubbing or cyanosis. Pulses 2+. PUTTY TINTER MAKER: No focal deficit. Power is 5/5 in all extremities. Psych: The patient has a depressed mood and he has recurrent admissions to the hospital since June 2019. LAB REVIEW: CBC showed WBC 5.7, hemoglobin 8.8, platelets of 168. BMP on arrival showed sodium 139, potassium 3.4, chloride 100, bicarb 34, BUN 22, creatinine 1.9, lactic acid 1. Repeat BMP done today showed sodium 142, potassium 3.7, chloride 106, bicarb 34, BUN 19, creatinine is 1.6, alkaline phosphatase 39, albumin is 2.8, procalcitonin is 0.11. Microbiology: Respiratory viral panel was positive for SARS COVID-19 and human enterovirus and rhinovirus. IMAGING: Chest x-ray was done today morning which showed no acute infiltrate. Gastric emptying was study was done which showed mildly delayed gastric emptying. Abdominal x-ray was done yesterday which showed mild small bowel ileus suspected. Renal ultrasound was also done yesterday which showed no hydronephrosis, questionable isoechoic right renal mass measuring 3.8 cm. MRI was recommended. CURRENT INPATIENT MEDICATIONS: The patient's medications were all reviewed myself. He was getting normal saline at 75 mL an hour. The patient was nothing by mouth (n.p.o.) for the procedure, so I started the patient on D5 normal saline at 75 mL an hour. He is on amiodarone 200 mg daily, Eliquis 2.5 mg by mouth twice a day, atenolol 25 mg by mouth daily, diltiazem 120 mg by mouth daily, finasteride 5 mg by mouth at bedtime, gabapentin 100 mg by mouth at bedtime, Bacid 1 tablet daily, Xopenex 2 puffs every 6 hours p.r.n. shortness of breath. He was on magnesium 64 by mouth daily because of diarrhea, I have stopped the mag 64. He is on Reglan p.r.n., Zofran p.r.n., Protonix 40 mg IV twice a day, Paxil 20 mg by mouth daily. He is on potassium chloride 10 mEq by mouth at night prednisone 2.5 mg by mouth daily at night time and 5 mg in the morning, Rozerem 8 mg by mouth at bedtime, Requip 0.25 mg by mouth at bedtime. He was getting Carafate with each meal which has been stopped at this time and he on Flomax 0.4 mg by mouth at bedtime. ASSESSMENT: 83-year-old male with past medical history of chronic kidney disease stage III with baseline creatinine of 1.2 and recent history of COVID-19 infection. He was discharged home from rehab unit in July 2019 and admitted at this time again with recurrent COVID-19 infection along with human enterovirus infection with dehydration and acute renal failure. PLAN: 1. Acute kidney injury superimposed on chronic kidney disease. It is secondary to dehydration, volume depletion persistent nausea and inability to keep any fluids down. Continue IV fluids. However, because of nothing by mouth status, I have changed the IV fluids to D5 normal saline at 75 mL an hour. Continue to monitor intake and output. Nephrotoxic medications have been held. Renal function is nicely improving today. 2. Intractable nausea and vomiting secondary to human enterovirus infection. The patient is getting Protonix. Carafate has been stopped. Magnesium 64 has also been stopped because of abdominal pain. Continue symptomatic treatment. Continue Reglan for nausea along with Zofran. IV fluid administration as mentioned above. 3. COVID-19 infection. The patient's chest x-ray at this time is not showing any bilateral interstitial infiltrates. He is on his baseline 02 requirement. Continue current home dose of prednisone 5 mg in the morning and 2.5 mg at bedtime. Continue Xopenex p.r.n. O2 sats are within the acceptable range. 4. Chronic atrial fibrillation. Heart rate is controlled. Continue current dose of amiodarone. He is anticoagulated with Eliquis. Continue atenolol as well. 5. Hypomagnesemia. The patient was already given magnesium, however, because of diarrhea, oral magnesium is on hold. 6. Hypokalemia. The patient was given potassium supplementation. Repeat BMP shows improvement in the potassium level to 3.7. 7. Depression. Continue home dose of paroxetine 20 mg by mouth daily. 8. Metabolic alkalosis. The patient has COPD and he most likely has chronic CO2 retention. Serum bicarb level is stable at 34. Thank you for involving me in the care of this patient. I shall be happy to follow the patient along with you tomorrow morning. Total critical care time spent in the management of this patient today morning in the [place] [id number] isolation unit was 1 hour and 20 minutes. MTDD
[2019-09-23] MEDS: KCL 20MEQ IN D5W 1000ML 1,000 ML IV SCH (11:56)
[2019-09-23 12:00] VITALS: BP 100/54
[2019-09-23 16:28] VITALS: BP 103/57
[2019-09-23] MEDS: IRON SUCROSE 200 MG in NS 100 ML IV SCH (16:29)
[2019-09-23 16:47] VITALS: BP 104/56
--- NOTE | 2019-09-23 17:04 | IPN ---
DATE: 09/23/2019 The patient tolerated his renal diet yesterday after the gastric emptying scan. He is continued on IV Reglan. This morning, he states that he had some discomfort while he was eating yesterday. He remains hypernatremic. Creatinine is back to normal. No fever or chills. He has been changed to D5 with 20 mEq of potassium at 75 an hour. The patient is maintained on his other home medications. He has no chills, dysuria, urgency, frequency. Gastric emptying scan showed mild gastroparesis yesterday. The patient otherwise denies any other respiratory symptoms. Denies any cough, shortness of breath, chills, or any fever. VITAL SIGNS: Temperature 98.4, pulse 70, respiratory rate 18, blood pressure 107/59, 95% on two liters nasal cannula. GENERAL: Awake, alert, oriented to person, place and time, answering questions appropriately. LUNGS: Diminished but clear to auscultation. No wheezing, rales, or rhonchi. HEART: S1, S2, sinus rhythm. ABDOMEN: Soft, nontender, nondistended, positive bowel sounds. EXTREMITIES: No clubbing, cyanosis, or any pitting edema. LABORATORY DATA: White count 5, hemoglobin 8.5, hematocrit 27, platelet count of 160. Sodium 149, potassium 3.6, chloride 113, bicarbonate 32, BUN 17, creatinine 1.19, glucose of 114, magnesium of 1.8. Nuclear medicine scan, milk gastric emptying scan. ASSESSMENT AND PLAN: This is an 83-year-old male with history of COVID-19 positive in June 2019, treated for pneumonia with complaints of nausea and vomiting, at that time discharged from the hospital 08/09/2019, on chronic two liters of oxygen due to end-stage chronic obstructive pulmonary disease (COPD), history of atrial fibrillation, sick sinus syndrome and pacemaker placement, Watchman procedure and ablation, chronically on two liters of oxygen, chronic kidney disease stage III with multiple renal cysts with baseline creatinine of 1.17, presented to the emergency room with a one-week history of worsening nausea and vomiting that was persistent, seen in emergency room (ER), hydrated and sent home, presents with a 1.93 creatinine, unable to keep oral intake down. The patient had prior esophagogastroduodenoscopy (EGD) done by Dr. Brooks in 2016 which shows gastric-type mucosa in the esophagus with mild inflammation and hiatal hernia. The patient had been on Prilosec and Carafate without improvement and presented to the ER for admission. Per his primary care physician Dr. Monae, the patient is medically stable to undergo EGD. He was admitted for dehydration due to poor oral intake due to intractable nausea and vomiting, found to have creatinine of 1.93. IMPRESSION: 1. Acute on chronic renal failure, stage III, managed by nephrology. IV fluids have been changed to D5 half-normal saline with potassium 75 mL per hour. Creatinine today is normal. He still complains of slight nausea but with no vomiting. 2. Intractable nausea and vomiting, most likely related to gastroparesis. The patient will be checked for type 2 diabetes with checking A1c or two fasting glucose. At this time, the patient is currently on Reglan. Would change to before meals and at bedtime and continue with oral diet if tolerated. The patient was advised to take small more frequent meals. 3. Chronic obstructive pulmonary disease (COPD), on home oxygen with chronic hypoxic respiratory failure, at baseline two liters of oxygen. Nebulizer treatments as needed. 4. Chronic atrial fibrillation, on atenolol, apixaban and amiodarone, status post ablation with tachycardia-bradycardia syndrome and pacemaker. 5. Chronic neuropathy, on chronic gabapentin. 6. Insomnia, on ramelteon. 7. Benign prostatic hypertrophy (BPH), on Flomax. 8. Restless legs, on ropinirole. DISPOSITION: The patient passed home safety evaluation. Defer to nephrology regarding discharge if the patient can be released tomorrow off IV fluids. MTDD
[2019-09-23 17:37] VITALS: BP 101/55
[2019-09-23] MEDS: predniSONE 2.5 MG TAB PO SCH (18:00)
[2019-09-23] MEDS: POTASSIUM CHLORIDE 10 MEQ SR TABLET PO SCH (18:24)
[2019-09-23 20:00] VITALS: BP 111/60
[2019-09-23] MEDS: RAMELTEON 8 MG TAB (ROZEREM) PO SCH (20:56)
[2019-09-23] MEDS: TAMSULOSIN 0.4 MG CAP PO SCH (20:57)
[2019-09-23] MEDS: GABAPENTIN 100 MG CAP PO SCH (20:57)
[2019-09-23] MEDS: FINASTERIDE 5 MG TAB PO SCH (20:57)
[2019-09-23] MEDS: rOPINIRole 0.25 MG TAB(REQUIP) PO SCH (20:57)
--- NOTE | 2019-09-23 23:47 | IPN ---
DATE: 09/23/2019 SUBJECTIVE: The patient was seen and examined at the bedside today morning in the [address] unit. He continues to be on IV fluid hydration. His renal function is gradually improving. The patient reports that his nausea and vomiting is better today. He was able to keep his breakfast down. The patient has developed hypernatremia today. He has a persistent drop in his hemoglobin levels. His oxygen requirement is stable at 2 liters via nasal cannula. He denies any respiratory distress. He reports his abdominal pain and diarrhea is getting better today. OBJECTIVE: Vital signs: Temperature is 98.5 degrees Fahrenheit, blood pressure 101/55, pulse is 70, respiratory rate of 18, saturating 97% on nasal cannula at 2 liters. Intake and output: Urine output recorded is 750 mL yesterday, 625 mL so far today since overnight. Weight on the bed scale is 60.3 kg . PHYSICAL EXAMINATION: General: The patient is awake, alert, oriented times three, laying in bed wearing nasal cannula. Head and neck exam: Extraocular muscles intact. Pupils equally round and reactive to light. Mucous membranes are moist. Neck is supple. There is no jugular venous distention (JVD). Cardiovascular: S1, S2, regular rate. No edema of the bilateral lower extremities. Respiratory: Chest is clear to auscultation bilaterally. He is wearing nasal cannula. Otherwise there are no active rales or rhonchi. Abdomen: Soft, positive bowel sounds. Nontender. No organomegaly. Musculoskeletal: No clubbing or cyanosis. Pulses are 2+. Central nervous system (LEAD FORMER): No focal deficit. Power is 5/5 in all extremities. Psychiatric: The patient has a depressed mood. LAB REVIEW: CBC showed a WBC of 5, hemoglobin 8.5 which is a drop from 8.8 yesterday, platelets are 160. BMP done today morning showed sodium 149, potassium 3.6, chloride 113, bicarbonate 32, BUN 17, creatinine is 1.19, it was 1.6 yesterday, magnesium level is 1.8, iron level is 43, transferrin saturation is 20.5 and ferritin is 262. CURRENT INPATIENT MEDICATIONS: The patient's medications were all reviewed by myself. His IV fluids have been changed to KCl 20 mEq in D5W at 75 mL an hour. I have also started him on IV Venofer. IV Reglan has been stopped. No other significant change in the medications today as compared with yesterday. ASSESSMENT/PLAN: 1. Acute nonoliguric renal failure. It is secondary to dehydration, volume depletion with combined infection with COVID-19 and Human Enterovirus/Rhinovirus. Continue IV fluid hydration. However, IV fluids are being changed according to patient's electrolytes today. Renal function is gradually improving. 2. Acute gastroenteritis secondary to Human Enterovirus infection. The patient is getting IV Reglan for nausea and vomiting. He is getting IV fluid hydration. His abdominal pain and nausea is getting better. He was able to keep his breakfast down. 3. Hypernatremia. It is secondary to free water deficit and hydration with normal saline. I have changed the IV fluid to D5W with 20 mEq of KCl at 100 mL an hour. 4. Iron deficiency anemia. The patient has borderline low iron levels. I have started him on IV Venofer. 5. Recurrent COVID-19 infection. The patient's oxygen requirement is 2 liters per minute. He is stable at this time. Latest x-ray showed no infiltrates. Continue nebulizations and current dose of prednisone. 6. Chronic atrial fibrillation. Heart rate is controlled with amiodarone. Continue current dose of atenolol and Eliquis. 7. Hypomagnesemia. He was given IV magnesium. Oral magnesium was held because of diarrhea and abdominal pain. 8. Metabolic alkalosis. It has gotten better after IV fluid hydration. 9. Disposition: The patient is clinically improving. I am hopeful that we should be able to discharge the patient over the next 1-2 days. Total critical care time spent in the management of this patient today morning in the COVID-19 isolation unit was 45 minutes.
[2019-09-24] MEDS: KCL 20MEQ IN D5W 1000ML 1,000 ML IV SCH (01:53)
[2019-09-24 03:15] VITALS: BP 102/56
[2019-09-24 07:11] LABS: HEMATOCRIT 28.5 % (42.0-52.0); HEMOGLOBIN 8.8 g/dl (13.5-17.5); MEAN CORPUSCULAR HEMOGLOBIN 28.5 pg (27.0-33.0); MEAN CORPUSCULAR HGB CONC 30.9 g/dl (32.0-36.5); MEAN CORPUSCULAR VOLUME 92.2 fl (80.0-96.0); PLATELET COUNT, AUTOMATED 171 10^3/uL (150-450); RED BLOOD COUNT 3.09 10^6/uL (4.30-6.10); WHITE BLOOD COUNT 5.8 10^3/uL (4.0-10.0)
[2019-09-24 07:32] LABS: BLOOD UREA NITROGEN 8 MG/DL (7-18); CALCIUM LEVEL 7.5 MG/DL (8.8-10.2); CARBON DIOXIDE LEVEL 29 MEQ/L (21-32); CHLORIDE LEVEL 110 MEQ/L (98-107); CREATININE FOR GFR 0.99 MG/DL (0.70-1.30); GLOMERULAR FILTRATION RATE > 60.0 (>35); GLUCOSE, FASTING 123 MG/DL (70-100); POTASSIUM SERUM 3.7 MEQ/L (3.5-5.1); SODIUM LEVEL 142 MEQ/L (136-145)
[2019-09-24] MEDS: METOCLOPRAMIDE INJ 10MG/2ML VIAL (J2765 PER 1) IV SCH ×4 (08:13→19:45)
[2019-09-24] MEDS: PANTOPRAZOLE 40MG VIAL (C9113 PER 1) IV SCH ×2 (08:13→19:45)
[2019-09-24] MEDS: AMIODARONE 200 MG TAB (PACERONE) PO SCH (08:14)
[2019-09-24] MEDS: APIXABAN 2.5 MG TAB (ELIQUIS) PO SCH ×2 (08:14→19:44)
[2019-09-24] MEDS: predniSONE 5 MG TAB PO SCH (08:14)
[2019-09-24] MEDS: PARoxetine 20MG TABLET PO SCH (08:14)
[2019-09-24] MEDS: LACTOBACILLUS ACIDOPHILUS CAP (BACID) PO SCH ×3 (08:14→18:05)
[2019-09-24] MEDS: atenoloL 25 MG TAB PO SCH (08:20)
[2019-09-24 12:00] VITALS: BP 116/74
[2019-09-24] MEDS ORDERED: VANCOMYCIN ORAL SOL 250MG/5ML ORAL SYRINGE PO SCH (12:00)
[2019-09-24] MEDS ORDERED: REGL5TAB2 PO (12:09)
[2019-09-24] MEDS ORDERED: FLAG500T PO (12:17)
[2019-09-24] MEDS: IRON SUCROSE 200 MG in NS 100 ML IV SCH (13:51)
[2019-09-24] MEDS: metroNIDAZOLE (FLAGYL) 500MG TABLET PO SCH ×2 (13:51→21:31)
--- NOTE | 2019-09-24 15:23 | IPNPDOC ---
Date Seen The patient was seen on 09/24/19. Progress Note dghtr, Niharika Mike, , unable to be reached. left message that pt is medically stable and can be discharged home. However, since his family is under quarantine by [facility] Dept of Health, pt has no other caregiver, and therefore must remain at [facility] under ALC/SNF status until his famil y's quarantine period is completed. VS, I&O, 24H, Fishbone Vital Signs/I&O Vital Signs Date Time Temp Pulse Resp B/P (MAP) Pulse Ox O2 Delivery O2 Flow Rate FiO2 09/24/19 12:00 97.8 84 16 116/74 (88) 96 Nasal Cannula 2.0 I&O- Last 24 Hours up to 6 AM 09/24/19 06:00 Intake Total 1475 ml Output Total 1000 ml Balance 475 ml Laboratory Data 24H LABS Laboratory Tests 2 09/24/19 06:34: Nucleated Red Blood Cells % (auto) 0.0, Anion Gap 3L, Glomerular Filtration Rate > 60.0, Calcium Level 7.5L CBC/BMP Laboratory Tests 09/24/19 06:34 Microbiology Microbiology 09/24/19 Stool Occult Blood (PEG) - Final, Complete 09/24/19 Gastrointestinal Tract Panel (PCR) - Final, Complete Clostridium Difficile A/B 09/21/19 Respiratory Virus Panel (PCR) (PEG) - Final, Complete SARS-CoV-2 (COVID 19) Human Rhinovirus/Enterovirus YUNI BILLINGS MD Sep 24, 2019 15:23
[2019-09-24] MEDS ORDERED: LACTOBACILLUS ACIDOPHILUS CAP (BACID) PO SCH (18:00)
[2019-09-24] MEDS: predniSONE 2.5 MG TAB PO SCH (18:05)
[2019-09-24] MEDS: POTASSIUM CHLORIDE 10 MEQ SR TABLET PO SCH (18:05)
[2019-09-24] MEDS: TAMSULOSIN 0.4 MG CAP PO SCH (19:44)
[2019-09-24] MEDS: rOPINIRole 0.25 MG TAB(REQUIP) PO SCH (19:44)
[2019-09-24] MEDS: GABAPENTIN 100 MG CAP PO SCH (19:44)
[2019-09-24] MEDS: FINASTERIDE 5 MG TAB PO SCH (19:44)
[2019-09-24 19:47] VITALS: BP 122/60
[2019-09-24] MEDS: RAMELTEON 8 MG TAB (ROZEREM) PO SCH (21:31)
[2019-09-25 04:00] VITALS: BP 111/55
[2019-09-25] MEDS: metroNIDAZOLE (FLAGYL) 500MG TABLET PO SCH (06:37)
[2019-09-25] MEDS: LACTOBACILLUS ACIDOPHILUS CAP (BACID) PO SCH (07:27)
[2019-09-25] MEDS: METOCLOPRAMIDE INJ 10MG/2ML VIAL (J2765 PER 1) IV SCH (07:27)
[2019-09-25 08:00] VITALS: BP 102/55
[2019-09-25 08:33] VITALS: BP 102/55
[2019-09-25] MEDS: atenoloL 25 MG TAB PO SCH (08:33)
[2019-09-25] MEDS: APIXABAN 2.5 MG TAB (ELIQUIS) PO SCH (08:40)
[2019-09-25] MEDS: predniSONE 5 MG TAB PO SCH (08:40)
[2019-09-25] MEDS: PARoxetine 20MG TABLET PO SCH (08:40)
[2019-09-25] MEDS: PANTOPRAZOLE 40MG VIAL (C9113 PER 1) IV SCH (08:40)
[2019-09-25] MEDS: AMIODARONE 200 MG TAB (PACERONE) PO SCH (08:40)
--- NOTE | 2019-09-25 10:28 | IPN ---
DATE: 09/24/2019 Patient cannot be discharged home due the family being quarantined per [facility] regulation. He currently has no other acute issues. He is tolerating his diet much better now that he is on Reglan. A gastric emptying scan was positive for mild gastric emptying. Patient has had no nausea or vomiting. He denies any diarrhea but gastrointestinal (GI) panel that was sent on formed stool had positive for Clostridium difficile (C diff). Patient said he had one loose stool but has not had any since. Unfortunately, patient appears to be colonized, but will need to be treated and contact isolation needs to be continued. Per nephrology, okay to discharge but social services specialist confirmed with [facility] that patient's family is unable to leave quarantine for 14 days. Vital Signs: Temperature 98.2, pulse 70, respiratory rate 18, blood pressure 108/58, 95% on two liters nasal cannula. Generally, patient is awake, alert, oriented to himself on two liters nasal cannula. He is speaking in full sentences. No facial asymmetry. No jugular venous distention (JVD) or thyromegaly. Lungs are clear to auscultation. No wheezing or rales. Heart: S1, S2, sinus rhythm. Abdomen is soft, nontender, nondistended. Positive bowel sounds. Extremities: No cyanosis, clubbing or any pitting edema. LABORATORY DATA: White count 5.8, hemoglobin 8.8, hematocrit 28, platelet count 171. Sodium 142, potassium 3.7, chloride 110, bicarbonate 29, BUN 8, creatinine 0.99, glucose of 123. ASSESSMENT AND PLAN: This is an 83-year-old male with a history of COVID-19 positive June 2019, treated for pneumonia, discharged home August 09, 2019, chronic obstructive pulmonary disease (COPD) - on two liters home oxygen, atrial fibrillation, sick sinus, pacer, Watchman procedure, chronic kidney disease III and multiple renal cysts, baseline creatinine 1.17, presented to the emergency room with a 1-week history of nausea, vomiting and had loose stool times one as an outpatient, admitted due to dehydration with creatinine of 1.93. GI panel was ordered at that time, but was not taken until 09/24/2019 when patient had a formed stool, now with positive Clostridium difficile (C diff), which appears to be colonization. Evaluation of his nausea and vomiting, included gastric emptying scan, which showed mild slowing of gastric emptying. Patient had been placed on Reglan with significant improvement. He was given IV fluids and managed by nephrology, and back to baseline creatinine. Due to the COVID-19 restrictions, patient's family have remained in quarantine. Patient is unable to be discharged home. He is unfortunately going to be treated for despite being colonization since the patient had formed stool and had no recurrent diarrhea during the hospital admission. CURRENT ISSUES: 1. Acute on chronic renal failure secondary to nausea, vomiting as outpatient with dehydration, currently back on his baseline stage III. 2. Intractable nausea and vomiting secondary to gastroparesis, resolved. 3. Chronic obstructive pulmonary disease. On chronic home oxygen, on two liters of oxygen. 4. Chronic atrial fibrillation. 5. Chronic neuropathy. 6. Insomnia. 7. BPH. 8. Restless legs. 9. Colonization with Clostridium difficile checked on formed stool. PLAN: Unfortunately, patient will remain in the hospital under alternate level of care (ALC)/halfway facility (SNF) status due to family unable to care for him, being quarantined for 14 days per [facility] Public Health regulations. Patient and family services (PFS) has been consulted and will alert physician when the patient can be discharged home. A GI panel was ordered on admission when patient had complained of diarrhea at home; however, sample was not sent until 09/24/2019 when the sample was formed. Patient has had no loose stools or diarrhea from admission and to 09/24/2019, but stool came back with positive Clostridium difficile, most likely colonization. He unfortunately will need to be treated with Flagyl to prevent vancomycin resistance for the next 7 days. He is medically stable for discharge, currently being transitioned to ALC/SNF status as he cannot go home due to his family being quarantined. [facility]
--- NOTE | 2019-09-25 12:24 | IPN ---
DATE: 09/24/2019 SUBJECTIVE: The patient was seen and examined at the bedside today morning in the [address]. He reports that he is feeling much better today. He was able to tolerate his breakfast. He reports very little nausea. Renal function is also improving. He has improving urine output. He continues to be on IV fluid hydration and hypernatremia is improving. His respiratory status is stable. He still requiring the two liters of nasal cannula to maintain his oxygenation above 95%. OBJECTIVE: Vital signs: Temperature is 97.8 degrees Fahrenheit, blood pressure 116/74, pulse is 84, respiratory rate of 16, saturating 96% on nasal cannula at 2 liters. Intake and output: Urine output recorded is 800 mL yesterday, 1550 mL so far today since overnight. Weight in the bed scale is 61.3 kg which is stable. PHYSICAL EXAMINATION: General: The patient is awake, alert and oriented times three, laying in bed, in no apparent distress. Head and neck exam: Extraocular muscles intact. Pupils equally round and reactive to light. Mucous membranes are moist. Neck is supple. He is wearing nasal cannula. Cardiovascular: S1, S2, regular rate. No edema of the bilateral lower extremities. Respiratory: Chest is clear to auscultation bilaterally. Bilateral equal air entry. No rales or rhonchi. Abdomen: Soft, positive bowel sounds. Nontender. No organomegaly. Musculoskeletal: No clubbing or cyanosis. Pulses are 2+. 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 Power is 5/5 in all extremities. LAB REVIEW: CBC showed a WBC of 5.8, hemoglobin 8.8, platelets are 171. BMP showed sodium 142, potassium 3.7, chloride 110, bicarbonate 29, BUN 8, creatinine is 0.99, calcium 7.5. Microbiology: Stool occult blood is negative. Clostridium difficile (C diff) PCR is positive. CURRENT INPATIENT MEDICATIONS: The patient's medications were all reviewed by myself. He is getting IV Venofer today as a second dose. IV fluid hydration will be stopped after 2 liters. He has been started on Flagyl 500 mg by mouth every 8 hours. No other significant change in the medications today as compared with yesterday. ASSESSMENT/PLAN: 1. Acute renal failure. It was secondary to dehydration and poor oral intake. The patient has been adequately hydrated. His renal function has improved back to baseline. 2. Acute gastroenteritis secondary to Human Enterovirus infection. The patient is symptomatically getting better. He is tolerating the diet. 3. Hypernatremia. It has improved with D5 fluids. He is currently able to tolerate the oral liquids. Sodium level should stay stable. 4. Iron-deficiency anemia. The patient got two doses of IV Venofer. Hemoglobin level is slowly improving. 5. Recurrent COVID-19 infection. The patient is stable. He is oxygenating well, only requiring oxygen via nasal cannula at 2 liters. 6. Chronic atrial fibrillation. Heart rate is controlled with amiodarone and atenolol. 7. Positive Clostridium difficile in the stool by PCR. Most likely the patient is colonized. He is not complaining of diarrhea. He is being treated by primary team. DISPOSITION: Patient's renal function has improved. His electrolytes are within the acceptable range. Nephrology service is going to sign off at this moment. Please call nephrology service for any help in the management of this patient during this hospitalization.
--- NOTE | 2019-09-25 12:37 | DS.PDOC ---
Discharge Summary General Date of Admission Sep 21, 2019 at 16:21 Date of Discharge September 25, 2019 Discharge Summary DISCHARGE DIAGNOSES: Enteroviral gastroenteritis COVID-19 Reinfection Acute Kidney injury due to dehydration Gastroparesis Chronic obstructive pulmonary disease chronic hypoxic respiratory failure on 2liters home oxygen Chronic atrial fibrillation. Chronic neuropathy. Insomnia. BPH. Restless legs. Colonization with Clostridium difficile checked on formed stool. DISCHARGE MEDICATIONS: pls see below HOSPITAL COURSE: This is an 83-year-old male with a history of COVID-19 positive June 2019, treated for pneumonia, discharged home August 09, 2019, chron ic obstructive pulmonary disease (COPD) - on two liters home oxygen, atrial fibrillation, sick sinus, pacer, Watchman procedure, chronic kidney disease III and multiple renal cysts, baseline creatinine 1.17, presented to the emergency room with a 1-week history of nausea, vomiting and had loose stool times one as an outpatient, admitted due to dehydration with creatinine of 1.93. GI panel was ordered at that time, but was not taken until 09/24/2019 when patient had a formed stool, now with positive Clostridium difficile (C diff), which appears to be colonization. Evaluation of his nausea and vomiting, included gastric emptying scan, which showed mild slowing of gastric emptying. Patient had been placed on Reglan with significant improvement. He was given IV fluids and managed by nephrology, and back to baseline creatinine. Due to the COVID-19 restrictions, patient's family have remained in quarantine. Patient could not be discharged home yesterday. A GI panel was ordered on admission when patient had complained of diarrhea at home; however, sample was not sent until 09/24/2019 when the sample was formed. Patient has had no loose stools or diarrhea from admission and to 09/24/2019, but stool came back with positive Clostridium difficile, most likely colonization. He unfortunately will need to be treated with Flagyl to prevent vancomycin resistance for the next 7 days. He is medically stable for discharge. DISCHARGE PHYSICAL EXAMINATION: VITALS: PLS SEE BELOW Generally, patient is awake, alert, oriented to himself on two liters nasal cannula. He is speaking in full sentences. No facial asymmetry. No jugular venous distention (JVD) or thyromegaly. Lungs are clear to auscultation. No wheezing or rales. Heart: S1, S2, sinus rhythm. Abdomen is soft, nontender, nondistended. Positive bowel sounds. Extremities: No cyanosis, clubbing or any pitting edema. DISCHARGE LABORATORY DATA: White count 5.8, hemoglobin 8.8, hematocrit 28, platelet count 171. Sodium 142, potassium 3.7, chloride 110, bicarbonate 29, BUN 8, creatinine 0.99, glucose of 123. TIME SPENT ON DISCHARGE: 30 MIN Vital Signs/I&Os Vital Signs Date Time Temp Pulse Resp B/P (MAP) Pulse Ox O2 Delivery O2 Flow Rate FiO2 09/25/19 08:40 73 09/25/19 08:33 102/55 09/25/19 08:05 2.0 09/25/19 08:00 98.1 18 96 Nasal Cannula I&O- Last 24 Hours up to 6 AM 09/25/19 06:00 Intake Total 1410 ml Output Total 1500 ml Balance -90 ml Microbiology Microbiology 09/24/19 Stool Occult Blood (PEG) - Final, Complete 09/24/19 Gastrointestinal Tract Panel (PCR) - Final, Complete Clostridium Difficile A/B 09/21/19 Respiratory Virus Panel (PCR) (PEG) - Final, Complete SARS-CoV-2 (COVID 19) Human Rhinovirus/Enterovirus Discharge Medications Scheduled Amiodarone HCl (Amiodarone HCl) 200 Mg Tablet, 200 MG PO DAILY, (Reported) Apixaban (Eliquis) 2.5 Mg Tab, 2.5 MG PO BID, (Reported) Atenolol (Atenolol) 25 Mg Tablet, 25 MG PO BID, (Reported) Budesonide/Formoterol (Symbicort 160-4.5 Mcg Inhaler) 6 Gm Hfa.aer.ad, 2 PUFF INH BID, (Reported) Fenofibrate (Fenofibrate) 160 Mg Tablet, 160 MG PO DAILY, (Reported) Ferrous Sulfate (Ferrous Sulfate) 325 Mg Tablet, 325 MG PO DAILY, (Reported) Finasteride (Finasteride) 5 Mg Tab, 5 MG PO QHS, (Reported) Gabapentin (Gabapentin) 100 Mg Capsule, 100 MG PO QHS, (Reported) L.acidoph/L.bulg/B.bif/S.therm (Alison-Bid Caplet) 1 Each Tablet, 1 TAB PO AC, (Reported) Magnesium Chloride (Mag64) 64 Mg Tablet.dr, 64 MG PO DAILY, (Reported) Metoclopramide Hcl (Reglan) 5 Mg Tablet, 5 MG PO ACHS Metronidazole (Flagyl) 500 Mg Tablet, 500 MG PO Q8H [place]-3 Fatty Acids/Fish Oil (Fish Oil 1,200 mg Softgel) 1 Each Capsule, 1,200 MG PO BID, (Reported) Omeprazole (Omeprazole) 40 Mg Capsule.dr, 40 MG PO DAILY, (Reported) Paroxetine HCl (Paroxetine HCl) 20 Mg Tablet, 20 MG PO DAILY, (Reported) Polyethylene Glycol 3350 (Polyethylene Glycol 3350) 510 Gm Powder, 17 GRAM PO DAILY, (Reported) Potassium Chloride (Potassium Chloride) 10 Meq Tab.er.prt, 10 MEQ PO QPM, (Reported) Prednisone (Prednisone) 5 Mg Tab, 5 MG PO QAM, (Reported) Prednisone (Prednisone) 2.5 Mg Tablet, 2.5 MG PO QPM, (Reported) Ramelteon (Rozerem) 8 Mg Tablet, 8 MG PO QHS, (Reported) Ropinirole HCl (Ropinirole HCl) 0.25 Mg Tablet, 0.25 MG PO QHS, (Reported) Sucralfate (Sucralfate) 1 Gm Tablet, 1 GM PO ACHS, (Reported) Tamsulosin Hcl (Tamsulosin HCl) 0.4 Mg Capsule, 0.4 MG PO QHS, (Reported) Torsemide (Torsemide) 10 Mg Tablet, 10 MG PO DAILY, (Reported) dilTIAZem HCl (Diltiazem 24Hr Cd) 120 Mg Cap.er.24h, 120 MG PO DAILY, (Reported) Scheduled PRN Acetaminophen (Acetaminophen) 500 Mg Tablet, 1,000 MG PO Q8H PRN for PAIN, (Reported) TAKES WITH TRAMADOL PRN Levalbuterol Hydrochloride (Xopenex Hfa) 15 Gm Hfa.aer.ad, 2 PUFF INH Q6H PRN for SHORTNESS OF BREATH, (Reported) Ondansetron HCl (Ondansetron HCl) 4 Mg Tablet, 4 MG PO QID PRN for NAUSEA OR VOMITING, (Reported) Tramadol HCl (Tramadol HCl) 50 Mg Tablet, 50 MG PO Q6H PRN for PAIN, (Reported) Allergies Coded Allergies: petrolatum,white (Verified Allergy, Mild, ITCH/RASH, 09/21/19) fluconazole (Verified Allergy, Unknown, UNKNOWN REACTION, 09/16/19) fluticasone (Verified Allergy, Unknown, UNKNOWN REACTION, 09/16/19) metformin (Verified Allergy, Unknown, UNKNOWN REACTION, 09/16/19) promethazine (Verified Adverse Reaction, Intermediate, Altered Mental Status , 09/21/19) azithromycin (Verified Adverse Reaction, Unknown, LOWERS BP, 09/16/19) clarithromycin (Verified Adverse Reaction, Unknown, LOWERS BP, 09/16/19) procaine (Verified Adverse Reaction, Unknown, DIZZINESS, 09/16/19) YUNI BILLINGS MD Sep 25, 2019 12:37
--- NOTE | 2019-09-25 13:07 | IPN ---
DATE: 09/25/2019 Patient is medically stable for discharge, but because his family is quarantined per [facility], they need to complete the 14 days of quarantine coming from out of state. He has no other family members who can care for him at home. He usually lives alone at home now that his is comfort measures only, living at his daughter's house. Patient denies any nausea, vomiting, diarrhea. Tolerating his diet well. He is ambulating well without dizziness, lightheadedness, and has passed a home safety evaluation. No fever or chills. Despite having positive Clostridium (C) difficile, unformed stool, patient has not had any loose bowel movements and currently asymptomatic. He remains on contact and respiratory air droplet precautions due to positive COVID and positive C. difficile by polymerase chain reaction (PCR). Temperature 98.1, pulse 73, respiratory rate 18, blood pressure 102/55, 96% on 1.5 liters nasal cannula. GENERAL: Patient is awake, alert, oriented to person, place, and time, answering questions appropriately. LUNGS: Clear to auscultation. No wheezes, rales, or rhonchi. HEART: S1, S2, irregular. ABDOMEN: Soft, nontender, nondistended. Positive bowel sounds. EXTREMITIES: No pitting edema. LABORATORY DATA: On September 23, CBC and metabolic have been reviewed. ASSESSMENT AND PLAN: This is an 83-year-old male, previously admitted in June with COVID-19 pneumonia, treated in the intensive care unit (ICU). Also had nausea and vomiting at the time. Discharged to rehabilitation, then subsequently discharged from the hospital August 08. He has history of chronic obstructive pulmonary disease (COPD), on chronic home oxygen, atrial fibrillation with sick sinus and pacer with Watchman procedure and ablation. Chronic kidney disease (CKD) III with multiple renal cysts. He represented to the emergency room with 1-week history of nausea and vomiting and one episode of diarrhea as outpatient. Gastrointestinal (GI) panel was ordered on admission but was not obtained until 4 days into the admission, and when the patient had formed stools came back with C. Difficile positive. He was COVID-19 positive again. Evaluation of nausea and vomiting included a nuclear medication gastric emptying scan, which showed delayed gastric emptying. He was placed on Reglan with resolution of his nausea and vomiting. He tolerates his diet with small frequent meals. IV fluids were managed by nephrology, which he returned to his baseline of 0.99 from 1.93 on hospital admission. ACTIVE ISSUES: 1. Acute on chronic renal failure, stage III, secondary to dehydration from nausea and vomiting, resolved. 2. Intractable nausea and vomiting secondary to gastroparesis. 3. COPD, on home oxygen. 4. Chronic hypoxic respirations failure, on 1.5-2 liters of oxygen. 5. 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 6. Chronic neuropathy. 7. Insomnia. 8. BPH. 9. Restless legs. 10. False-positive C. difficile by PCR. GI sample was obtained 4 days after the original order and was done on formed stool. PLAN: Patient current is medically stable for hospital discharge, awaiting [facility] approval for the family to care for him at home. At this time, patient is looking for other family members to help take care of him. His daughter from [place] is currently in a 14-day quarantine by [facility]. Her will be arriving but will also need to be on a 14-day quarantine. Patient will be changed to alternative level of care (ALC)/detention facility (SNF) status. Patient and family services (PFS) has been consulted regarding disposition. He is medically stable to be discharged once he finds a family member who can care for him at home. DARRELL
[2019-09-26] MEDS ORDERED: OMEPRAZOLE 20 MG CAP PO SCH (09:00)
== END 2019-09-25 12:03 | disposition home or self-care (01) | DRG 391 ==
LOC: M ED 13:43 → M ED INP 16:21 → ENRESERV 16:38 → M 4MAIN 20:55
PROVIDERS: ADMIT General Practice; ATTEND General Practice
DX: A08.39 Other viral enteritis (principal); U07.1 COVID-19; J96.11 Chronic respiratory failure with hypoxia; I48.20 Chronic atrial fibrillation, unspecified; N17.9 Acute kidney failure, unspecified; E87.0 Hyperosmolality and hypernatremia; E86.0 Dehydration; N18.3 Chronic kidney disease, stage 3 (moderate); N28.1 Cyst of kidney, acquired; E83.42 Hypomagnesemia; G25.81 Restless legs syndrome; R31.9 Hematuria, unspecified; K31.84 Gastroparesis; I49.5 Sick sinus syndrome; Z66 Do not resuscitate; G62.9 Polyneuropathy, unspecified; E87.6 Hypokalemia; 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, or unspecified chronic kidney disease; F32.9 Major depressive disorder, single episode, unspecified; K21.9 Gastro-esophageal reflux disease without esophagitis; E78.5 Hyperlipidemia, unspecified; J44.9 Chronic obstructive pulmonary disease, unspecified; Z95.0 Presence of cardiac pacemaker; Z88.1 Allergy status to other antibiotic agents; Z88.8 Allergy status to other drugs, medicaments and biological substances; Z79.01 Long term (current) use of anticoagulants; Z79.899 Other long term (current) drug therapy; Z79.52 Long term (current) use of systemic steroids; Z99.81 Dependence on supplemental oxygen; Z79.891 Long term (current) use of opiate analgesic

== ENCOUNTER 2019-09-27 07:54 | Inpatient (IN) | payer MEDICARE ==
[~2019-09-27] VITALS: Ht 165.1 cm; Wt 64.3 kg
[~2019-09-27 07:54] MED LIST changes: +AMIO200T PO; -AMIO200T3 PO; +ASPI81TA85 PO; -ASPI81TA86 PO; +DILT120C89 PO; +FERR1TAB8 PO; +FLAG500T PO; +OMEP-221 PO; +PARO20TA3 PO; +PEGPOW PO; +REGL5TAB2 PO; +ROZE8TAB16 PO; +SUCR1TAB56 PO
[2019-09-27] MEDS ORDERED: ONDANSETRON 4MG/2ML VIAL IV ONE (08:15)
[2019-09-27] MEDS ORDERED: NS 500 ML IV ONE (08:15)
[2019-09-27] MEDS: NS 1,000 ML IV SCH ×2 (08:35→18:18)
[2019-09-27 09:15] LABS: BASO % 0.5 % (0.0-1.0); EOS # 0.1 10^3/uL (0.0-0.5); EOS % 0.6 % (0.0-3.0); HEMATOCRIT 30.1 % (42.0-52.0); HEMOGLOBIN 9.6 g/dl (13.5-17.5); LYMPH # 0.7 10^3/uL (1.5-5.0); LYMPH % 8.9 % (24.0-44.0); MEAN CORPUSCULAR HEMOGLOBIN 28.8 pg (27.0-33.0); MEAN CORPUSCULAR HGB CONC 31.9 g/dl (32.0-36.5); MEAN CORPUSCULAR VOLUME 90.4 fl (80.0-96.0); MONO # 1.5 10^3/uL (0.0-0.8); MONO % 19.9 % (0.0-5.0); NEUTROPHILS % 65.1 % (36.0-66.0); PLATELET COUNT, AUTOMATED 187 10^3/uL (150-450); RED BLOOD COUNT 3.33 10^6/uL (4.30-6.10); WHITE BLOOD COUNT 7.7 10^3/uL (4.0-10.0)
[2019-09-27 09:40] LABS: ALBUMIN 2.5 GM/DL (3.2-5.2); BILIRUBIN,DIRECT 0.2 MG/DL (0.0-0.2); BILIRUBIN,TOTAL 0.4 MG/DL (0.2-1.0)
[2019-09-27] MEDS ORDERED: METO5TAB2 PO (11:55)
[2019-09-27] MEDS ORDERED: METR-265 PO (11:55)
[2019-09-27] MEDS ORDERED: ONDANSETRON 4 MG TAB PO PRN (12:00)
[2019-09-27] MEDS ORDERED: METOCLOPRAMIDE INJ 10MG/2ML VIAL (J2765 PER 1) IV SCH (12:00)
[2019-09-27] MEDS ORDERED: LEVALBUTEROL HFA 45MCG/ACT 15 GM INHALER INH PRN (12:00)
[2019-09-27] MEDS: predniSONE 5 MG TAB PO SCH (14:22)
[2019-09-27] MEDS: APIXABAN 2.5 MG TAB (ELIQUIS) PO SCH ×2 (14:23→20:15)
[2019-09-27] MEDS: FERROUS SULFATE 325MG TAB PO SCH (14:24)
[2019-09-27] MEDS: MIRALAX *UNIT DOSE* 17GM PACKET PO SCH (14:25)
[2019-09-27] MEDS: AMIODARONE 200 MG TAB (PACERONE) PO SCH (14:26)
[2019-09-27] MEDS: MAGNESIUM CHLORIDE 64 MG TABCR (SLO MAG) PO SCH (14:26)
[2019-09-27] MEDS: PARoxetine 20 MG TAB PO SCH (14:26)
[2019-09-27] MEDS: atenoloL 25 MG TAB PO SCH ×2 (14:27→20:15)
[2019-09-27] MEDS: SYMBICORT 160/4.5MCG INHALER 6GM INH SCH ×2 (14:27→19:46)
[2019-09-27 16:40] VITALS: BP 120/66
--- NOTE | 2019-09-27 16:52 | ECGEPIP ---
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
[2019-09-27 16:56] VITALS: BP 120/66
[2019-09-27] MEDS: LACTOBACILLUS ACIDOPHILUS CAP (BACID) PO SCH ×2 (17:06→17:15)
[2019-09-27] MEDS: SUCRALFATE 1 GM TAB PO SCH ×3 (17:07→20:15)
[2019-09-27] MEDS: metroNIDAZOLE (FLAGYL) 500 MG TAB PO SCH ×2 (17:14→20:14)
[2019-09-27] MEDS: METOCLOPRAMIDE INJ 10MG/2ML VIAL (J2765 PER 1) IV SCH ×2 (17:15→23:48)
--- NOTE | 2019-09-27 17:48 | HPE ---
DATE OF ADMISSION: 09/27/2019 CHIEF COMPLAINT: Failure to thrive, not eating or drinking, possible depression, patient's is currently comfort measures only. HISTORY OF PRESENTING ILLNESS: This is an 83-year-old male, recently admitted to the hospital 09/21/2019 to 09/25/2019 with complaints of intractable nausea and vomiting, weight loss, and was found to have enteroviral gastroenteritis, COVID-19 reinfection and false positive Clostridium (C) difficile, being treated with Flagyl when the stool was checked on formed stool, most likely colonization. He had gastroparesis at that time and was treated with Reglan. He was seen by nephrology and hydrated due to acute on chronic renal failure with presenting creatinine of 1.93 and with baseline of 1.17. Patient did well with intravenous (IV) fluid hydration, physical therapy, and subsequently was able to maintain his own oral intake with discharge creatinine of 0.99. Patient underwent gastric emptying scan, which showed gastroparesis. We checked a chest x-ray to rule out fluid overloaded, had no pulmonary edema, cephalization or acute infiltrate. Patient was discharged subsequently on 09/25/2019 to his family, who were in mandatory quarantine. Patient does live in his own home. His is currently under comfort measures only, living with his other daughter. He has been increasingly depressed. Since May, he has been afflicted with COVID-19, and since May has not been feeling well and has been having some weight loss and currently in and out of the hospital. Patient has no other new complaints aside from persistent nausea without any vomiting, decreased oral intake at home and is open to being readmitted. PAST MEDICAL HISTORY: Enteroviral gastroenteritis. COVID-19 reinfection. False positive C. difficile, most likely colonization. Test was performed on formed stool. Acute kidney injury due to dehydration. Chronic kidney disease, stage III. Chronic neuropathy. Chronic atrial fibrillation. Chronic hypoxic respiratory failure on 2 liters of home oxygen. Chronic obstructive pulmonary disease (COPD). Gastroparesis with abnormal gastric emptying scan. Insomnia. BPH. Restless legs. Debility with failure to thrive. COVID-19 pneumonia treated in July 2019. Bilateral renal cysts. Hematuria. 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 Watchman procedure. Atrial fibrillation with cardiac ablation. Hypertension. Reflux. Hyperlipidemia. COVID-19 positive June 2019 with pneumonia. Intractable nausea, vomiting. ALLERGIES: To FLUCONAZOLE, FLUTICASONE, METFORMIN, PETROLATUM, AZITHROMYCIN, CLARITHROMYCIN, and PROCAINE. PAST SURGICAL HISTORY: Permanent pacemaker, 2003. 2011, ablation. 12/2018, Watchman procedure. HOME MEDICATIONS: - amiodarone 200 mg daily - apixaban 2.5 mg twice a day - Tylenol 1 gram every 8 as needed - atenolol 25 mg twice a day - Symbicort two puffs inhaled twice a day - diltiazem 120 mg daily - ferrous sulfate 325 mg daily - finasteride 5 mg nightly - gabapentin 100 mg nightly - lactobacillus before food - Xopenex two puffs every 6 as needed - MagOx 64 mg daily - Zofran 4 mg four times a day as needed - Paxil 20 mg daily - Reglan 5 mg before food nightly - MiraLAX 17 grams daily - Flagyl 500 mg three times a day - potassium 10 every evening - prednisone 2.5 mg every evening, 5 mg every morning - Rozerem 8 mg nightly - ropinirole 0.25 mg nightly - Carafate 1 gram before food and nightly - tamsulosin 0.4 mg nightly - torsemide 10 mg daily - tramadol 50 mg every 6 hourly - fenofibrate 160 mg daily - fish oil 1.2 twice a day - Prilosec 40 mg daily SOCIAL HISTORY: 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 Patient lives with another daughter. She is currently comfort measures only. Patient currently is DO NOT RESUSCITATE, DO NOT INTUBATE. Medical Orders for Life-Sustaining Treatment (MOLST) form was done by Dr. Christine Taylor in March 2019. Signed form has been scanned to electronic medical record. Patient previously smoked. Has a history of COPD. Currently, not actively smoking. No recreational drug use. No alcohol use. FAMILY HISTORY: Father with CAD, myocardial infarction ([place]). REVIEW OF SYSTEMS: Per history of the present illness; 12-point system otherwise negative. PHYSICAL EXAMINATION: Temperature was not obtained, pulse 69, respiratory 20, blood pressure 119/60, 99% two liters nasal cannula. Generally, patient is awake, alert, oriented times three, answering questions appropriately. Moist mucous membranes. Tongue is midline. Pupils, round, reactive to light. No jugular venous distention (JVD), thyromegaly, or cervical lymphadenopathy. Lungs are clear to auscultation. No wheezing, rales, or rhonchi. Heart: S1, S2, irregularly irregular. Abdomen is soft, nontender, nondistended, nondistended. Positive bowel sounds. Extremities: No cyanosis, clubbing, or any pitting edema. LABORATORY DATA: White count 7.7, hemoglobin 9.6, hematocrit 30, platelet count 187, neutrophils 65,000. Sodium 140, potassium 3.5, chloride 92, bicarbonate 30, BUN 9, creatinine 1.3, glucose of 100. Liver function test stable, T-bilirubin 0.4, direct bilirubin 0.2, AST 20, ALT 14, alkaline phosphatase 37, total protein 5, albumin 2.5, lipase of 130. ASSESSMENT AND PLAN: This is an 83-year-old male, was previously admitted 07/16/2019 to 07/29/2019 on a medical floor due to COVID-19 positive with pneumonia, nausea, vomiting, and diarrhea. Patient was in the intensive care unit (ICU) and discharged to acute rehabilitation on 07/29/2019 and discharged from the hospital 08/09/2019, he then represents 09/21/2019 to 09/25/219 with gastroparesis, intractable nausea, vomiting, was found to have enteroviral infection and again COVID positive, despite being COVID negative on 09/16/2019. Patient was kept on isolation at that time, because of a complaint of diarrhea, gastrointestinal (GI) panel was ordered but did not get sent until 3 days into the hospitalization when patient had a formed stool, therefore, Clostridium (C) difficile came back positive but was sent on formed stool and therefore false positive and most likely colonization of C. difficile. Patient underwent nuclear medical gastric emptying scan which showed mild delayed gastric emptying. He was put on Reglan with improvement, told to eat small, frequent meals, and was hydrated by nephrology, back to baseline creatinine 0.9 on discharge with presenting creatinine of 1.93. Patient passed a home safety evaluation and subsequently discharged home on 09/25/2019. Patient re-presents 09/27/2019 with failure to thrive and persistent nausea without vomiting. Patient does not have any significant changes or metabolic abnormalities on his lab tests, but is asking to be re-admitted for failure to thrive. Per Dr. Figueroa, there is no medical necessity for admission, and patient and family services (PFS) has spoken with the patient and their family that this admission will most likely not be covered. Due to increased stressors at home with the being comfort measures only and most the immediate family being in quarantine due to COVID-19, patient was agreeable to be admitted for failure to thrive. CURRENT ISSUES: 1. Failure to thrive. Patient has known history of gastric emptying that is delayed with diagnosis of gastroparesis made during the previous admission on 09/21/2019 to 09/25/2019. He was instructed to eat small, frequent meals, as well as to take Reglan before food and nightly. 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 Albumin level has looked a little low. Patient is too sick to undergo any further evaluation, and I would not recommend an esophagogastroduodenoscopy (EGD) at this time when the patient is COVID-19 positive. 2. COVID-19 positive, reinfection. It was checked 09/21/2019 when previous check on 09/16/2019. He is currently not exhibiting any symptoms but requires isolation for the next 14 days, from September 20, according to [facility]. 3. Colonization with Clostridium difficile. Gastrointestinal (GI) panel for Clostridium (C) difficile was checked on formed stool, despite being ordered on admission on 09/21/2019. Sample was taken on formed stool and is positive for C. difficile on 09/24/2019, therefore, patient is empirically treated with Flagyl and he needs to be continued on contact isolation. He is not symptomatic from this during the previous admission nor has he had any diarrhea at home. 4. Chronic atrial fibrillation, on anticoagulation. Currently rate controlled. He is resumed on his home medications. 5. Chronic obstructive pulmonary disease, at baseline. Prednisone dependent on 2.5 mg and 5 mg daily and Xopenex. 6. Restless legs syndrome. On Requip. 7. BPH. On Flomax. 8. Chronic neuropathy. On Neurontin. 9. Chronic atrial fibrillation. On amiodarone, atenolol, diltiazem, and apixaban. 10. Chronic hypoxic respiratory failure, at baseline, 2 liters of oxygen at all times. 11. Chronic kidney disease stage III. Currently at baseline creatinine. DISPOSITION: Patient is failure to thrive. Referred to PFS. Patient is medically stable otherwise for placement or discharge home.
[2019-09-27 20:00] VITALS: BP 104/55
[2019-09-27] MEDS: GABAPENTIN 100 MG CAP PO SCH (20:14)
[2019-09-27] MEDS: rOPINIRole 0.25 MG TAB(REQUIP) PO SCH (20:15)
[2019-09-27] MEDS: RAMELTEON 8 MG TAB (ROZEREM) PO SCH (20:15)
[2019-09-27] MEDS: FINASTERIDE 5 MG TAB PO SCH (20:15)
[2019-09-27] MEDS: TAMSULOSIN 0.4 MG CAP PO SCH (20:15)
[2019-09-27] MEDS: predniSONE 2.5 MG TAB PO SCH (20:15)
[2019-09-27] MEDS: POTASSIUM CHLORIDE 10 MEQ SR TABLET PO SCH (20:15)
[2019-09-27] MEDS: MEGESTROL ES SUSP 625MG 5ML ORAL SYRINGE PO SCH (21:14)
[2019-09-28] MEDS: NS 1,000 ML IV SCH ×2 (03:34→09:34)
[2019-09-28 05:30] VITALS: BP 118/57
[2019-09-28] MEDS: METOCLOPRAMIDE INJ 10MG/2ML VIAL (J2765 PER 1) IV SCH ×4 (05:39→23:49)
[2019-09-28] MEDS: SYMBICORT 160/4.5MCG INHALER 6GM INH SCH ×2 (07:15→19:47)
[2019-09-28 07:18] LABS: HEMOGLOBIN 8.4 g/dl (13.5-17.5); MEAN CORPUSCULAR HEMOGLOBIN 28.9 pg (27.0-33.0); MEAN CORPUSCULAR HGB CONC 31.1 g/dl (32.0-36.5); MEAN CORPUSCULAR VOLUME 92.8 fl (80.0-96.0); PLATELET COUNT, AUTOMATED 162 10^3/uL (150-450); RED BLOOD COUNT 2.91 10^6/uL (4.30-6.10); WHITE BLOOD COUNT 6.2 10^3/uL (4.0-10.0)
[2019-09-28 07:41] LABS: BLOOD UREA NITROGEN 10 MG/DL (7-18); CALCIUM LEVEL 7.6 MG/DL (8.8-10.2); CARBON DIOXIDE LEVEL 27 MEQ/L (21-32); CHLORIDE LEVEL 108 MEQ/L (98-107); CREATININE FOR GFR 0.92 MG/DL (0.70-1.30); GLOMERULAR FILTRATION RATE > 60.0 (>35); GLUCOSE, FASTING 66 MG/DL (70-100); POTASSIUM SERUM 3.9 MEQ/L (3.5-5.1); SODIUM LEVEL 141 MEQ/L (136-145)
[2019-09-28] MEDS: SUCRALFATE 1 GM TAB PO SCH ×4 (07:44→20:16)
[2019-09-28] MEDS: LACTOBACILLUS ACIDOPHILUS CAP (BACID) PO SCH ×3 (07:44→17:44)
[2019-09-28 09:00] VITALS: BP 111/55
[2019-09-28] MEDS: MEGESTROL ES SUSP 625MG 5ML ORAL SYRINGE PO SCH (09:31)
[2019-09-28] MEDS: MAGNESIUM CHLORIDE 64 MG TABCR (SLO MAG) PO SCH (09:31)
[2019-09-28] MEDS: MIRALAX *UNIT DOSE* 17GM PACKET PO SCH (09:31)
[2019-09-28] MEDS: PARoxetine 20 MG TAB PO SCH (09:32)
[2019-09-28] MEDS: metroNIDAZOLE (FLAGYL) 500 MG TAB PO SCH (09:32)
[2019-09-28] MEDS: atenoloL 25 MG TAB PO SCH ×2 (09:32→20:36)
[2019-09-28] MEDS: FERROUS SULFATE 325MG TAB PO SCH (09:33)
[2019-09-28] MEDS: APIXABAN 2.5 MG TAB (ELIQUIS) PO SCH ×2 (09:33→20:16)
[2019-09-28] MEDS: predniSONE 5 MG TAB PO SCH (09:33)
[2019-09-28] MEDS: AMIODARONE 200 MG TAB (PACERONE) PO SCH (09:33)
[2019-09-28 14:00] VITALS: BP 121/58
--- NOTE | 2019-09-28 15:31 | IPNPDOC ---
Text Note Date of Service The patient was seen on 09/28/19. NOTE Subjective: Patient is an 83-year-old male, recently admitted to the hospital 09/21/2019 to 09/25/2019 with complaints of intractable nausea and vomiting, weight loss, and was found to have enteroviral gastroenteritis, COVID-19 reinfection and false positive Clostridium (C) difficile, being treated with Flagyl when the stool was checked on formed stool, most likely colonization. Patient underwent gastric emptying scan, which showed gastroparesis. Patient had DEVAN and was rehydrated and evaluated by Nephrology. Patient was discharged subsequently on 09/25/2019 to his family, who were in mandatory quarantine. Unfortunately patient wasn't able to care for himself, he does live in his own home and his is currently under comfort measures only, living with his other daughter. Patient presented to the hospital with complaints of nausea / vomiting and decrease oral intake. Patient was seen and examined at the bedside. The patient denies any chest pain, shortness of breath, palpitations, does not report any nausea or vomiting. Currently, denies abdominal pain. Reports his last bowel movement was yesterday. Denies any urinary discomfort. Objective: Vitals (See below) General: Lying in bed, appears comfortable, AAOx3 HEENT: NC, AT CVS: +S1S2 Lungs: Fair air entry b/l, -w/r/r Abdomen: Soft, ND, NT Extremities: - Edema, - Calf tenderness Assessment and plan: Failure to thrive - Hx of gastroparesis confirmed on prior admission - Advised dietary changes - c/w Reglan PRN - Will have outpatient follow up with GI for possible EGD once he is confirmed COVID negative COVID-19 positive, reinfection - It was checked 09/21/2019 when previous check on 09/16/2019 - He is currently not exhibiting any symptoms but requires isolation for the next 14 days, from September 20, according to public health Colonization with Clostridium difficile - Gastrointestinal (GI) panel for Clostridium (C) difficile was checked on formed stool, despite being ordered on admission on 09/21/2019 - Sample was taken on formed stool and is positive for C. difficile on 09/24/2019 - Patient is asymptomatic - Will DC Flagyl Chronic atrial fibrillation - c/w rate control with Diltiazem, Atenolol and Amiodarone - c/w full anticoagulation with Eliquis Chronic COPD - no evidence of exacerbation - c/w inhaled therapy as ordered RLS - c/w Ropinirole BPH - c/w Tamsulosin and Finasteride Chronic Neuropathy - c/w Gabapentin Elevated Cr on CKD3 - Cr appears to have returned to baseline - Will DC IV fluids GI prophylaxis - c/w Carafate DVT prophylaxis - c/w full anticoagulation with Eliquis Disposition: - Looking into placement VS,Fishbone, I+O VS, Fishbone, I+O Laboratory Tests 09/28/19 07:05 Vital Signs Date Time Temp Pulse Resp B/P (MAP) Pulse Ox O2 Delivery O2 Flow Rate FiO2 09/28/19 09:32 70 111/55 09/28/19 09:00 98.1 18 97 Nasal Cannula 2.0 I&O- Last 24 Hours up to 6 AM 09/28/19 06:00 Intake Total 1374 ml Output Total 350 ml Balance 1024 ml KRISHAN MORE MD Sep 28, 2019 15:31
[2019-09-28 20:15] VITALS: BP 113/55
[2019-09-28] MEDS: TAMSULOSIN 0.4 MG CAP PO SCH (20:16)
[2019-09-28] MEDS: POTASSIUM CHLORIDE 10 MEQ SR TABLET PO SCH (20:16)
[2019-09-28] MEDS: GABAPENTIN 100 MG CAP PO SCH (20:16)
[2019-09-28] MEDS: predniSONE 2.5 MG TAB PO SCH (20:16)
[2019-09-28] MEDS: FINASTERIDE 5 MG TAB PO SCH (20:17)
[2019-09-28] MEDS: RAMELTEON 8 MG TAB (ROZEREM) PO SCH (20:17)
[2019-09-28] MEDS: rOPINIRole 0.25 MG TAB(REQUIP) PO SCH (20:17)
[2019-09-29 05:51] VITALS: BP 101/60
[2019-09-29] MEDS: METOCLOPRAMIDE INJ 10MG/2ML VIAL (J2765 PER 1) IV SCH ×2 (05:53→11:52)
[2019-09-29 06:48] LABS: HEMATOCRIT 26.6 % (42.0-52.0); HEMOGLOBIN 8.3 g/dl (13.5-17.5); MEAN CORPUSCULAR HEMOGLOBIN 28.4 pg (27.0-33.0); MEAN CORPUSCULAR HGB CONC 31.2 g/dl (32.0-36.5); MEAN CORPUSCULAR VOLUME 91.1 fl (80.0-96.0); PLATELET COUNT, AUTOMATED 171 10^3/uL (150-450); RED BLOOD COUNT 2.92 10^6/uL (4.30-6.10); WHITE BLOOD COUNT 5.9 10^3/uL (4.0-10.0)
[2019-09-29 07:03] LABS: BLOOD UREA NITROGEN 8 MG/DL (7-18); CALCIUM LEVEL 7.8 MG/DL (8.8-10.2); CARBON DIOXIDE LEVEL 30 MEQ/L (21-32); CHLORIDE LEVEL 111 MEQ/L (98-107); CREATININE FOR GFR 0.85 MG/DL (0.70-1.30); GLOMERULAR FILTRATION RATE > 60.0 (>35); GLUCOSE, FASTING 136 MG/DL (70-100); POTASSIUM SERUM 3.6 MEQ/L (3.5-5.1); SODIUM LEVEL 141 MEQ/L (136-145)
[2019-09-29] MEDS: SYMBICORT 160/4.5MCG INHALER 6GM INH SCH ×2 (07:35→19:34)
[2019-09-29 07:47] VITALS: BP 107/59
[2019-09-29] MEDS: atenoloL 25 MG TAB PO SCH ×2 (07:58→20:44)
[2019-09-29] MEDS: FERROUS SULFATE 325MG TAB PO SCH (08:07)
[2019-09-29] MEDS: MIRALAX *UNIT DOSE* 17GM PACKET PO SCH (08:07)
[2019-09-29] MEDS: LACTOBACILLUS ACIDOPHILUS CAP (BACID) PO SCH ×3 (08:07→16:52)
[2019-09-29] MEDS: PARoxetine 20 MG TAB PO SCH (08:07)
[2019-09-29] MEDS: predniSONE 5 MG TAB PO SCH (08:07)
[2019-09-29] MEDS: SUCRALFATE 1 GM TAB PO SCH ×4 (08:07→20:43)
[2019-09-29] MEDS: AMIODARONE 200 MG TAB (PACERONE) PO SCH (08:07)
[2019-09-29] MEDS: MAGNESIUM CHLORIDE 64 MG TABCR (SLO MAG) PO SCH (08:07)
[2019-09-29] MEDS: APIXABAN 2.5 MG TAB (ELIQUIS) PO SCH ×2 (08:07→20:43)
[2019-09-29] MEDS: MEGESTROL ES SUSP 625MG 5ML ORAL SYRINGE PO SCH (10:43)
--- NOTE | 2019-09-29 14:03 | IPNPDOC ---
Text Note Date of Service The patient was seen on 09/29/19. NOTE Subjective: Patient is an 83-year-old male, recently admitted to the hospital 09/21/2019 to 09/25/2019 with complaints of intractable nausea and vomiting, weight loss, and was found to have enteroviral gastroenteritis, COVID-19 reinfection and false positive Clostridium (C) difficile, being treated with Flagyl when the stool was checked on formed stool, most likely colonization. Patient underwent gastric emptying scan, which showed gastroparesis. Patient had DEVAN and was rehydrated and evaluated by Nephrology. Patient was discharged subsequently on 09/25/2019 to his family, who were in mandatory quarantine. Unfortunately patient wasn't able to care for himself, he does live in his own home and his is currently under comfort measures only, living with his other daughter. Patient presented to the hospital with complaints of nausea / vomiting and decrease oral intake. Patient was seen and examined at the bedside. Patient has been tolerating his meals. Has not experienced nausea, vomiting., Although he hasn't been eating much. Denies abdominal pain or urinary discomfort. He did have a bowel movement yesterday that was reported loose. Objective: Vitals (See below) General: Lying in bed, appears comfortable, AAOx3 HEENT: NC, AT CVS: +S1S2 Lungs: Fair air entry b/l, no appreciable wheezing, rhonchi, rales Abdomen: Soft, nondistended and nontender Extremities: No evidence of LE edema, - Calf tenderness Assessment and plan: Failure to thrive - Hx of gastroparesis confirmed on prior admission - Advised dietary changes - c/w Reglan PRN; will DC scheduled reglan - Will have outpatient follow up with GI for possible EGD once he is confirmed COVID negative COVID-19 positive, reinfection - It was checked 09/21/2019 when previous check on 09/16/2019 - He is currently not exhibiting any symptoms but requires isolation for the next 14 days, from September 20, according to public health (End point October 04) Colonization with Clostridium difficile - Gastrointestinal (GI) panel for Clostridium (C) difficile was checked on formed stool, despite being ordered on admission on 09/21/2019 - Sample was taken on formed stool and is positive for C. difficile on 09/24/2019 - Patient is asymptomatic - s/p Flagyl Chronic atrial fibrillation - c/w rate control with Diltiazem, Atenolol and Amiodarone - c/w full anticoagulation with Eliquis Chronic COPD - no evidence of exacerbation - c/w inhaled therapy as ordered RLS - c/w Ropinirole BPH - c/w Tamsulosin and Finasteride Chronic Neuropathy - c/w Gabapentin Elevated Cr on CKD3 - Cr appears to have returned to baseline - s/p IV fluids GI prophylaxis - c/w Carafate DVT prophylaxis - c/w full anticoagulation with Eliquis Disposition: - Looking into placement - Will transition to ALC status VS,[place], I+O VS, [place], I+O Laboratory Tests 09/29/19 06:12 Vital Signs Date Time Temp Pulse Resp B/P (MAP) Pulse Ox O2 Delivery O2 Flow Rate FiO2 09/29/19 07:58 69 107/59 09/29/19 07:52 1.5 09/29/19 07:47 97.5 17 96 Nasal Cannula I&O- Last 24 Hours up to 6 AM 09/29/19 06:00 Intake Total 2592 ml Output Total 850 ml Balance 1742 ml KRISHAN MORE MD Sep 29, 2019 14:03
[2019-09-29 14:05] VITALS: BP 127/61
[2019-09-29] MEDS: METOCLOPRAMIDE 5 MG TAB PO PRN (18:06)
[2019-09-29] MEDS: GABAPENTIN 100 MG CAP PO SCH (20:43)
[2019-09-29] MEDS: RAMELTEON 8 MG TAB (ROZEREM) PO SCH (20:43)
[2019-09-29] MEDS: FINASTERIDE 5 MG TAB PO SCH (20:43)
[2019-09-29] MEDS: POTASSIUM CHLORIDE 10 MEQ SR TABLET PO SCH (20:43)
[2019-09-29] MEDS: TAMSULOSIN 0.4 MG CAP PO SCH (20:43)
[2019-09-29] MEDS: rOPINIRole 0.25 MG TAB(REQUIP) PO SCH (20:43)
[2019-09-29 20:45] VITALS: BP 115/61
[2019-09-29] MEDS: predniSONE 2.5 MG TAB PO SCH (20:46)
[2019-09-30] MEDS: ACETAMINOPHEN 500 MG TAB PO PRN ×2 (00:59→15:29)
[2019-09-30 01:00] VITALS: BP 164/72
[2019-09-30] MEDS: traMADol 50 MG TAB PO PRN ×3 (01:05→19:57)
[2019-09-30 06:17] VITALS: BP 137/64
[2019-09-30] MEDS: METOCLOPRAMIDE 5 MG TAB PO PRN ×3 (06:18→17:47)
[2019-09-30 07:17] LABS: HEMATOCRIT 26.5 % (42.0-52.0); HEMOGLOBIN 8.2 g/dl (13.5-17.5); MEAN CORPUSCULAR HEMOGLOBIN 28.4 pg (27.0-33.0); MEAN CORPUSCULAR HGB CONC 30.9 g/dl (32.0-36.5); MEAN CORPUSCULAR VOLUME 91.7 fl (80.0-96.0); PLATELET COUNT, AUTOMATED 171 10^3/uL (150-450); RED BLOOD COUNT 2.89 10^6/uL (4.30-6.10); WHITE BLOOD COUNT 5.6 10^3/uL (4.0-10.0)
[2019-09-30] MEDS: SYMBICORT 160/4.5MCG INHALER 6GM INH SCH ×2 (07:24→20:29)
[2019-09-30 07:42] LABS: BLOOD UREA NITROGEN 7 MG/DL (7-18); CARBON DIOXIDE LEVEL 32 MEQ/L (21-32); CHLORIDE LEVEL 112 MEQ/L (98-107); GLOMERULAR FILTRATION RATE > 60.0 (>35); GLUCOSE, FASTING 94 MG/DL (70-100); POTASSIUM SERUM 3.9 MEQ/L (3.5-5.1); SODIUM LEVEL 146 MEQ/L (136-145)
[2019-09-30] MEDS: predniSONE 5 MG TAB PO SCH (08:20)
[2019-09-30] MEDS: MAGNESIUM CHLORIDE 64 MG TABCR (SLO MAG) PO SCH (08:20)
[2019-09-30] MEDS: APIXABAN 2.5 MG TAB (ELIQUIS) PO SCH ×2 (08:20→19:58)
[2019-09-30] MEDS: FERROUS SULFATE 325MG TAB PO SCH (08:20)
[2019-09-30] MEDS: SUCRALFATE 1 GM TAB PO SCH ×4 (08:20→19:58)
[2019-09-30] MEDS: PARoxetine 20 MG TAB PO SCH (08:20)
[2019-09-30] MEDS: MEGESTROL ES SUSP 625MG 5ML ORAL SYRINGE PO SCH (08:21)
[2019-09-30] MEDS: MIRALAX *UNIT DOSE* 17GM PACKET PO SCH (08:21)
[2019-09-30] MEDS: LACTOBACILLUS ACIDOPHILUS CAP (BACID) PO SCH ×3 (08:21→16:27)
[2019-09-30] MEDS: atenoloL 25 MG TAB PO SCH ×2 (08:22→19:57)
[2019-09-30] MEDS: AMIODARONE 200 MG TAB (PACERONE) PO SCH (08:22)
[2019-09-30] MEDS: SODIUM CHLORIDE NASAL 0.65% SPRAY BTL (OCEAN) SCH ×2 (09:00→20:00)
[2019-09-30 13:31] VITALS: BP 124/60
[2019-09-30] MEDS: GABAPENTIN 100 MG CAP PO SCH (19:56)
[2019-09-30] MEDS: TAMSULOSIN 0.4 MG CAP PO SCH (19:56)
[2019-09-30] MEDS: RAMELTEON 8 MG TAB (ROZEREM) PO SCH (19:56)
[2019-09-30] MEDS: FINASTERIDE 5 MG TAB PO SCH (19:56)
[2019-09-30 19:57] VITALS: BP 112/58
[2019-09-30] MEDS: POTASSIUM CHLORIDE 10 MEQ SR TABLET PO SCH (19:58)
[2019-09-30] MEDS: predniSONE 2.5 MG TAB PO SCH (19:58)
[2019-09-30] MEDS: rOPINIRole 0.25 MG TAB(REQUIP) PO SCH (19:59)
[2019-10-01 06:00] VITALS: BP 139/69
[2019-10-01] MEDS: METOCLOPRAMIDE 5 MG TAB PO PRN ×2 (06:03→12:06)
[2019-10-01] MEDS: AMIODARONE 200 MG TAB (PACERONE) PO SCH (07:46)
[2019-10-01] MEDS: MAGNESIUM CHLORIDE 64 MG TABCR (SLO MAG) PO SCH (07:46)
[2019-10-01] MEDS: FERROUS SULFATE 325MG TAB PO SCH (07:46)
[2019-10-01] MEDS: LACTOBACILLUS ACIDOPHILUS CAP (BACID) PO SCH ×2 (07:46→12:06)
[2019-10-01] MEDS: PARoxetine 20 MG TAB PO SCH (07:46)
[2019-10-01] MEDS: SUCRALFATE 1 GM TAB PO SCH ×2 (07:46→12:06)
[2019-10-01] MEDS: atenoloL 25 MG TAB PO SCH (07:47)
[2019-10-01] MEDS: MEGESTROL ES SUSP 625MG 5ML ORAL SYRINGE PO SCH (07:48)
[2019-10-01] MEDS: predniSONE 5 MG TAB PO SCH (07:48)
[2019-10-01] MEDS: APIXABAN 2.5 MG TAB (ELIQUIS) PO SCH (07:48)
[2019-10-01] MEDS: SODIUM CHLORIDE NASAL 0.65% SPRAY BTL (OCEAN) SCH (07:51)
[2019-10-01] MEDS: MIRALAX *UNIT DOSE* 17GM PACKET PO SCH (07:52)
[2019-10-01] MEDS: traMADol 50 MG TAB PO PRN (08:00)
[2019-10-01] MEDS: SYMBICORT 160/4.5MCG INHALER 6GM INH SCH (08:48)
[2019-10-01 08:49] LABS: HEMATOCRIT 33.3 % (42.0-52.0); MEAN CORPUSCULAR HEMOGLOBIN 28.3 pg (27.0-33.0); MEAN CORPUSCULAR HGB CONC 30.6 g/dl (32.0-36.5); MEAN CORPUSCULAR VOLUME 92.2 fl (80.0-96.0); PLATELET COUNT, AUTOMATED 249 10^3/uL (150-450); RED BLOOD COUNT 3.61 10^6/uL (4.30-6.10); WHITE BLOOD COUNT 10.2 10^3/uL (4.0-10.0)
[2019-10-01 08:51] LABS: HEMOGLOBIN 10.2 g/dl (13.5-17.5)
[2019-10-01 08:57] LABS: BLOOD UREA NITROGEN 9 MG/DL (7-18); CALCIUM LEVEL 8.4 MG/DL (8.8-10.2); CARBON DIOXIDE LEVEL 30 MEQ/L (21-32); CHLORIDE LEVEL 107 MEQ/L (98-107); CREATININE FOR GFR 0.96 MG/DL (0.70-1.30); GLOMERULAR FILTRATION RATE > 60.0 (>35); GLUCOSE, FASTING 82 MG/DL (70-100); POTASSIUM SERUM 4.1 MEQ/L (3.5-5.1); SODIUM LEVEL 143 MEQ/L (136-145)
[2019-10-01] MEDS ORDERED: MEGE1SUS8 PO (12:38)
[2019-10-01 12:43] LABS: BASO % 0.7 % (0.0-1.0); EOS % 0.3 % (0.0-3.0); HEMOGLOBIN 8.7 g/dl (13.5-17.5); LYMPH # 0.6 10^3/uL (1.5-5.0); MEAN CORPUSCULAR HEMOGLOBIN 28.3 pg (27.0-33.0); MEAN CORPUSCULAR HGB CONC 31.1 g/dl (32.0-36.5); MEAN CORPUSCULAR VOLUME 91.2 fl (80.0-96.0); MONO # 0.9 10^3/uL (0.0-0.8); MONO % 15.4 % (0.0-5.0); NEUTROPHILS # 4.2 10^3/uL (1.5-8.5); NEUTROPHILS % 69.7 % (36.0-66.0); PLATELET COUNT, AUTOMATED 175 10^3/uL (150-450); RED BLOOD COUNT 3.07 10^6/uL (4.30-6.10); WHITE BLOOD COUNT 6.1 10^3/uL (4.0-10.0)
[2019-10-01] MEDS ORDERED: REGL5TAB2 PO (14:30)
--- NOTE | 2019-10-01 14:32 | DS.PDOC ---
Discharge Summary General Date of Admission Sep 27, 2019 at 11:56 Date of Discharge 10/01/2019 Discharge Summary PROCEDURES PERFORMED DURING STAY: [None]. ADMITTING DIAGNOSES / DISCHARGE DIAGNOSES: Failure to thrive COVID-19 positive, reinfection Colonization with Clostridium difficile Chronic atrial fibrillation Chronic COPD RLS BPH Chronic Neuropathy Elevated Cr on CKD3 GI prophylaxis DVT prophylaxis COMPLICATIONS/CHIEF COMPLAINT: Failure To Thrive In Adult. HISTORY OF PRESENT ILLNESS: Patient is an 83-year-old male, recently admitted to the hospital 09/21/2019 to 09/25/2019 with complaints of intractable nausea and vomiting, weight loss, and was found to have enteroviral gastroenteritis, COVID-19 reinfection and false positive Clostridium (C) difficile, being treated with Flagyl when the stool was checked on formed stool, most likely colonization. Patient underwent gastric emptying scan, which showed gastroparesis. Patient had DEVAN and was rehydrated and evaluated by Nephrology. Patient was discharged subsequently on 09/25/2019 to his family, who were in mandatory quarantine. Unfortunately patient wasn't able to care for himself, he does live in his own home and his is currently under comfort measures only, living with his other daughter. Patient presented to the hospital with complaints of nausea / vomiting and decrease oral intake. He was admitted to the hospitalist service for failure to thrive. HOSPITAL COURSE: Failure to thrive - Hx of gastroparesis confirmed on prior admission - c/w Reglan PRN - Advised dietary changes; has been tolerating a diet with small frequent meals - Will have outpatient follow up with GI for possible EGD once he is confirmed COVID negative - Case management/PFS have been on board and have help establish a safe home radha n / support COVID-19 positive, reinfection - It was checked 09/21/2019 when previous check on 09/16/2019 - He is currently not exhibiting any symptoms but requires isolation for the next 14 days, from September 20, according to public health (End point October 04) Colonization with Clostridium difficile - Gastrointestinal (GI) panel for Clostridium (C) difficile was checked on formed stool, despite being ordered on admission on 09/21/2019 - Sample was taken on formed stool and is positive for C. difficile on 09/24/2019 - Patient is asymptomatic - Patient continues to have 1 bowel movement a day - s/p Flagyl Chronic atrial fibrillation - c/w rate control with Diltiazem, Atenolol and Amiodarone - c/w full anticoagulation with Eliquis Chronic COPD - no evidence of exacerbation - c/w inhaled therapy as ordered RLS - c/w Ropinirole BPH - c/w Tamsulosin and Finasteride Chronic Neuropathy - c/w Gabapentin Elevated Cr on CKD3 - Cr appears to have returned to baseline - s/p IV fluids GI prophylaxis - c/w Carafate DVT prophylaxis - c/w full anticoagulation with Eliquis DISCHARGE MEDICATIONS: Please see below. ALLERGIES: Please see below. PHYSICAL EXAMINATION ON DISCHARGE: Vitals (See below) General: Lying in bed, appears comfortable, AAOx3 HEENT: NC, AT CVS: +S1S2 Lungs: Fair air entry b/l, without evidence of rhonchi, crackles or wheezing Abdomen: Does not appear to be any distention or tenderness, and abdomen. Soft Extremities: Lower extremities are free of any pitting edema, - Calf tenderness LABORATORY DATA: Please see below. ACTIVITY: [As tolerated]. DISCHARGE PLAN: Patient will be discharged home and his daughter will be living with Patient has been advised to follow-up with his primary care provider within 7 days He's been advised remained compliant with treatment plan and medications Patient has been advised to remain in order remain in quarantine into contacted by [facility] Patient has been advised to return to ER if he experiences any problems DISPOSITION: Home with services DISCHARGE CONDITION: [Stable]. TIME SPENT ON DISCHARGE: 35 minutes Vital Signs/I&Os Vital Signs Date Time Temp Pulse Resp B/P (MAP) Pulse Ox O2 Delivery O2 Flow Rate FiO2 10/01/19 09:17 1.5 10/01/19 08:30 18 10/01/19 06:00 97.1 70 139/69 (92) 98 Room Air I&O- Last 24 Hours up to 6 AM 10/01/19 06:00 Intake Total 480 ml Output Total 700 ml Balance -220 ml Laboratory Data Labs 24H Laboratory Tests 2 10/01/19 07:48: Nucleated Red Blood Cells % (auto) 0.0, Anion Gap 6L, Glomerular Filtration Rate > 60.0, Calcium Level 8.4L 10/01/19 12:20: Nucleated Red Blood Cells % (auto) 0.0, Immature Granulocyte % (Auto) 4.9H, Neutrophils (%) (Auto) 69.7H, Lymphocytes (%) (Auto) 9.0L, Monocytes (%) (Auto) 15.4H, Eosinophils (%) (Auto) 0.3, Basophils (%) (Auto) 0.7, Neutrophils # (Auto) 4.2, Lymphocytes # (Auto) 0.6L, Monocytes # (Auto) 0.9H, Eosinophils # (Auto) 0.0, Basophils # (Auto) 0.0 CBC/BMP Laboratory Tests 10/01/19 07:48 10/01/19 12:20 Discharge Medications Scheduled Amiodarone HCl (Amiodarone HCl) 200 Mg Tablet, 200 MG PO DAILY, (Reported) Apixaban (Eliquis) 2.5 Mg Tab, 2.5 MG PO BID, (Reported) Atenolol (Atenolol) 25 Mg Tablet, 25 MG PO BID, (Reported) Budesonide/Formoterol (Symbicort 160-4.5 Mcg Inhaler) 6 Gm Hfa.aer.ad, 2 PUFF INH BID, (Reported) Fenofibrate (Fenofibrate) 160 Mg Tablet, 160 MG PO DAILY, (Reported) Ferrous Sulfate (Ferrous Sulfate) 325 Mg Tablet, 325 MG PO DAILY, (Reported) Finasteride (Finasteride) 5 Mg Tab, 5 MG PO QHS, (Reported) Gabapentin (Gabapentin) 100 Mg Capsule, 100 MG PO QHS, (Reported) L.acidoph/L.bulg/B.bif/S.therm (Alison-Bid Caplet) 1 Each Tablet, 1 TAB PO AC, (Reported) Magnesium Chloride (Mag64) 64 Mg Tablet.dr, 64 MG PO DAILY, (Reported) Megestrol Acetate (Megestrol Acetate) 625 Mg/5 Ml Oral.susp, 625 MG PO DAILY Metronidazole (Metronidazole) 500 Mg Tablet, 500 MG PO TID, (Reported) FILLED 09/24/19 FOR 7 DAYS - PATIENT STATES HE HAS ONLY TAKEN A FEW TABLETS OF THE COURSE AND THEY MADE HIM VERY SICK TO HIS STOMACH [place]-3 Fatty Acids/Fish Oil (Fish Oil 1,200 mg Softgel) 1 Each Capsule, 1,200 MG PO BID, (Reported) Omeprazole (Omeprazole) 40 Mg Capsule.dr, 40 MG PO DAILY, (Reported) Paroxetine HCl (Paroxetine HCl) 20 Mg Tablet, 20 MG PO DAILY, (Reported) Polyethylene Glycol 3350 (Polyethylene Glycol 3350) 510 Gm Powder, 17 GRAM PO DAILY, (Reported) Potassium Chloride (Potassium Chloride) 10 Meq Tab.er.prt, 10 MEQ PO QPM, (Reported) Prednisone (Prednisone) 5 Mg Tab, 5 MG PO QAM, (Reported) Prednisone (Prednisone) 2.5 Mg Tablet, 2.5 MG PO QPM, (Reported) Ramelteon (Rozerem) 8 Mg Tablet, 8 MG PO QHS, (Reported) Ropinirole HCl (Ropinirole HCl) 0.25 Mg Tablet, 0.25 MG PO QHS, (Reported) Sucralfate (Sucralfate) 1 Gm Tablet, 1 GM PO ACHS, (Reported) Tamsulosin Hcl (Tamsulosin HCl) 0.4 Mg Capsule, 0.4 MG PO QHS, (Reported) Torsemide (Torsemide) 10 Mg Tablet, 10 MG PO DAILY, (Reported) dilTIAZem HCl (Diltiazem 24Hr Cd) 120 Mg Cap.er.24h, 120 MG PO DAILY, (Reported) Scheduled PRN Acetaminophen (Acetaminophen) 500 Mg Tablet, 1,000 MG PO Q8H PRN for PAIN, (Reported) TAKES WITH TRAMADOL PRN Levalbuterol Hydrochloride (Xopenex Hfa) 15 Gm Hfa.aer.ad, 2 PUFF INH Q6H PRN for SHORTNESS OF BREATH, (Reported) Metoclopramide HCl (Metoclopramide HCl) 5 Mg Tablet, 5 MG PO ACHS PRN for ABDOMINAL PAIN, (Reported) Ondansetron HCl (Ondansetron HCl) 4 Mg Tablet, 4 MG PO QID PRN for NAUSEA OR VOMITING, (Reported) Tramadol HCl (Tramadol HCl) 50 Mg Tablet, 50 MG PO Q6H PRN for PAIN, (Reported) Allergies Coded Allergies: petrolatum,white (Verified Allergy, Mild, ITCH/RASH, 09/21/19) fluconazole (Verified Allergy, Unknown, UNKNOWN REACTION, 09/16/19) fluticasone (Verified Allergy, Unknown, UNKNOWN REACTION, 09/16/19) metformin (Verified Allergy, Unknown, UNKNOWN REACTION, 09/16/19) promethazine (Verified Adverse Reaction, Intermediate, Altered Mental Stat us , 09/21/19) azithromycin (Verified Adverse Reaction, Unknown, LOWERS BP, 09/16/19) clarithromycin (Verified Adverse Reaction, Unknown, LOWERS BP, 09/16/19) procaine (Verified Adverse Reaction, Unknown, DIZZINESS, 09/16/19) KRISHAN MORE MD Oct 01, 2019 14:32
== END 2019-10-01 15:50 | disposition home health service (06) | DRG 640 ==
LOC: M ED 07:54 → EDBD 07:54 → M ED INP 11:56 → ENRESERV 14:13 → M MSPAV 16:29 → M 4MAIN 17:25
PROVIDERS: ADMIT General Practice; ATTEND Internal Medicine
DX: R62.7 Adult failure to thrive (principal); U07.1 COVID-19; I48.20 Chronic atrial fibrillation, unspecified; J96.11 Chronic respiratory failure with hypoxia; K30 Functional dyspepsia; N18.3 Chronic kidney disease, stage 3 (moderate); G62.9 Polyneuropathy, unspecified; J44.9 Chronic obstructive pulmonary disease, unspecified; Z66 Do not resuscitate; K31.84 Gastroparesis; G47.00 Insomnia, unspecified; N40.0 Benign prostatic hyperplasia without lower urinary tract symptoms; G25.81 Restless legs syndrome; N28.1 Cyst of kidney, acquired; Z95.0 Presence of cardiac pacemaker; I49.5 Sick sinus syndrome; 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, or unspecified chronic kidney disease; K21.9 Gastro-esophageal reflux disease without esophagitis; E78.5 Hyperlipidemia, unspecified; Z88.1 Allergy status to other antibiotic agents; Z88.8 Allergy status to other drugs, medicaments and biological substances; Z79.01 Long term (current) use of anticoagulants; Z79.899 Other long term (current) drug therapy; Z79.891 Long term (current) use of opiate analgesic; Z87.891 Personal history of nicotine dependence; Z99.81 Dependence on supplemental oxygen

== ENCOUNTER → 2019-12-07 | Outpatient (REF) | payer MEDICARE ==
[~2019-12-07] MED LIST changes: -AMIO200T PO; +AMIO200T3 PO; -ASPI81TA85 PO; +ASPI81TA86 PO; +DILT120T PO; +KEPP250T5 PO; +MEGE1SUS8 PO; +METO5TAB2 PO; +METR-265 PO
[2019-12-07 14:18] LABS: BLOOD UREA NITROGEN 22 MG/DL (7-18); CALCIUM LEVEL 8.5 MG/DL (8.8-10.2); CARBON DIOXIDE LEVEL 30 MEQ/L (21-32); CHLORIDE LEVEL 110 MEQ/L (98-107); CREATININE FOR GFR 1.03 MG/DL (0.70-1.30); GLOMERULAR FILTRATION RATE > 60.0 (>35); GLUCOSE, FASTING 126 MG/DL (70-100); MAGNESIUM LEVEL 1.8 MG/DL (1.8-2.4); POTASSIUM SERUM 3.9 MEQ/L (3.5-5.1); SODIUM LEVEL 144 MEQ/L (136-145)
== END ==
LOC: M SHH 09:15
PROVIDERS: ATTEND Internal Medicine
DX: I50.32 Chronic diastolic (congestive) heart failure (principal); I48.0 Paroxysmal atrial fibrillation; Z79.01 Long term (current) use of anticoagulants

== ENCOUNTER 2020-01-17 16:51 | Inpatient (IN) | payer MEDICARE ==
[~2020-01-17] VITALS: Ht 170.2 cm; Wt 61.8 kg
[~2020-01-17 16:51] MED LIST changes: -DILT120T PO; -KEPP250T5 PO
[2020-01-17 18:32] LABS: HEMATOCRIT 31.4 % (42.0-52.0); HEMOGLOBIN 9.9 g/dl (13.5-17.5); MEAN CORPUSCULAR HEMOGLOBIN 28.2 pg (27.0-33.0); MEAN CORPUSCULAR HGB CONC 31.5 g/dl (32.0-36.5); MEAN CORPUSCULAR VOLUME 89.5 fl (80.0-96.0); PLATELET COUNT, AUTOMATED 201 10^3/uL (150-450); RED BLOOD COUNT 3.51 10^6/uL (4.30-6.10); WHITE BLOOD COUNT 13.4 10^3/uL (4.0-10.0)
--- NOTE | 2020-01-17 18:32 | REPVR ---
PROCEDURE INFORMATION: Exam: CT Head Without Contrast Exam date and time: 01/17/2020 5:55 PM Age: 84 years old Clinical indication: Altered mental status/memory loss TECHNIQUE: Imaging protocol: Computed tomography of the head without contrast. Radiation optimization: All CT scans at this facility use at least one of these dose optimization techniques: automated exposure control; mA and/or kV adjustment per patient size (includes targeted exams where dose is matched to clinical indication); or iterative reconstruction. COMPARISON: No relevant prior studies available. FINDINGS: Brain: No acute intracerebral abnormality or injury. No acute infarct or intracerebral bleed. 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 [place] Stroke Program Early CT Score (ASPECTS score) = 10. Cerebral ventricles: No ventriculomegaly. Bones/joints: Unremarkable. No acute fracture. Paranasal sinuses: Visualized sinuses are unremarkable. No fluid levels. Mastoid air cells: Visualized mastoid air cells are well aerated. Soft tissues: Unremarkable. IMPRESSION: 1. No acute intracerebral abnormality or injury. No acute infarct or intracerebral bleed. 2. 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 3. [place] Stroke Program Early CT Score (ASPECTS score) = 10. Electronically signed by: Kimo Palomino On 01/17/2020 18:32:43 PM
--- NOTE | 2020-01-17 18:37 | REPVR ---
PROCEDURE INFORMATION: Exam: XR Chest, 1 View Exam date and time: 01/17/2020 5:41 PM Age: 84 years old Clinical indication: Shortness of breath; Additional info: Altered mental status TECHNIQUE: Imaging protocol: XR of the chest Views: 1 view. COMPARISON: CR PORTABLE CHEST X-RAY 09/22/2019 2:11 PM FINDINGS: Lungs: Streaky areas of probable pulmonary parenchymal scarring are seen in the basal segment right upper lobe similar to the previous chest radiograph. Pleural space: Unremarkable. No pleural effusion. No pneumothorax. Heart/Mediastinum: The heart size is normal. Vasculature: A left subclavian dual-chamber pacemaker is present in satisfactory position. Bones/joints: Unremarkable. Other findings: Comparison to the previous chest radiograph from 09/22/2019 shows no major interval change. IMPRESSION: 1. Comparison to the previous chest radiograph from 09/22/2019 shows no major interval change. 2. A left subclavian dual-chamber pacemaker is present in satisfactory position. 3. The heart size is normal. 4. Streaky areas of probable pulmonary parenchymal scarring are seen in the basal segment right upper lobe similar to the previous chest radiograph. Electronically signed by: Kimo Palomino On 01/17/2020 18:37:30 PM
[2020-01-17 18:54] LABS: OSMOLALITY SERUM 292 MOSM/KG (280-301)
[2020-01-17 19:00] LABS: ALBUMIN 2.5 GM/DL (3.2-5.2); ALT/SGPT 17 U/L (12-78); BILIRUBIN,DIRECT 0.2 MG/DL (0.0-0.2); BILIRUBIN,TOTAL 0.6 MG/DL (0.2-1.0); BLOOD UREA NITROGEN 18 MG/DL (7-18); CALCIUM LEVEL 8.7 MG/DL (8.8-10.2); CARBON DIOXIDE LEVEL 31 MEQ/L (21-32); CHLORIDE LEVEL 107 MEQ/L (98-107); CK-MB VALUE MASS 1.5 NG/ML (<3.6); CPK CREATINE PHOSPHOKINASE 24 U/L (39-308); GLOMERULAR FILTRATION RATE > 60.0 (>35); GLUCOSE, FASTING 114 MG/DL (70-100); MB/CK RELATIVE INDEX 6.25 (< OR =4); POTASSIUM SERUM 4.3 MEQ/L (3.5-5.1); SODIUM LEVEL 142 MEQ/L (136-145); THYROID STIMULATING HORMONE 0.928 uIU/ML (0.358-3.740); TOTAL PROTEIN 5.4 GM/DL (6.4-8.2); TROPONIN I < 0.02 NG/ML (< 0.10)
[2020-01-17] MEDS: SYMBICORT 160/4.5MCG INHALER 6GM INH SCH (20:00)
[2020-01-17 20:05] LABS: ATYPICAL LYMPH 1 % (0-5); LYMPHOCYTES 5 % (16-44); MONOCYTES 7 % (0-5); MYELOCYTES 3 % (0-0); NEUTROPHILS 83 % (28-66)
[2020-01-17 20:06] LABS: PLATELET ESTIMATE NORMAL (NORMAL)
[2020-01-17 20:07] LABS: ANISOCYTOSIS 2+
[2020-01-17] MEDS ORDERED: DILT120T PO (20:37)
[2020-01-17] MEDS ORDERED: LEVALBUTEROL HFA 45MCG/ACT 15 GM INHALER INH PRN (21:45)
--- NOTE | 2020-01-17 22:04 | HPEPDOC ---
General Date of Admission 01/17/20 Date of Service: Jan 17, 2020 Chief Complaint The patient is a 84-year-old male admitted with a reason for visit of Weakness. Source: Patient Exam Limitations: Mild cognitive slowing Timing/Duration: Day(s) Severity: Mild History of Present Illness Patient is 84 years old male with past history of COVID19, dementia, neuropathy, atrial fibrillation status post watchman procedure and cardiac ablation, COPD currently on 2 L home oxygen, gastroparesis, BPH was brought to emergency department due to altered mental status. According to family patient became more confused today, he was not oriented in place and time, they decided to bring him to the hospital. His symptoms waxing and waning. Patient follows with Dr. 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 In ER patient was found to have leukocytes count of 13.4, hemoglobin 9.1, TSH within normal limit. CT head ne gative for acute bleed or acute, x-ray chest negative for acute infiltrate Home Medications Scheduled Amiodarone HCl (Amiodarone HCl) 200 Mg Tablet, 200 MG PO DAILY, (Reported) Apixaban (Eliquis) 2.5 Mg Tab, 2.5 MG PO BID, (Reported) Atenolol (Atenolol) 25 Mg Tablet, 25 MG PO BID, (Reported) Budesonide/Formoterol (Symbicort 160-4.5 Mcg Inhaler) 6 Gm Hfa.aer.ad, 2 PUFF INH BID, (Reported) Diltiazem HCl (Diltiazem HCl) 120 Mg Tablet, 120 MG PO DAILY, (Reported) Ferrous Sulfate (Ferrous Sulfate) 325 Mg Tablet, 325 MG PO DAILY, (Reported) Finasteride (Finasteride) 5 Mg Tab, 5 MG PO QHS, (Reported) [place]-3 Fatty Acids/Fish Oil (Fish Oil 1,200 mg Softgel) 1 Each Capsule, 1,200 MG PO BID, (Reported) Omeprazole (Omeprazole) 40 Mg Capsule.dr, 40 MG PO DAILY, (Reported) Paroxetine HCl (Paroxetine HCl) 20 Mg Tablet, 20 MG PO DAILY, (Reported) Prednisone (Prednisone) 5 Mg Tab, 5 MG PO QAM, (Reported) Prednisone (Prednisone) 2.5 Mg Tablet, 2.5 MG PO QPM, (Reported) Ropinirole HCl (Ropinirole HCl) 0.25 Mg Tablet, 0.25 MG PO QHS, (Reported) Tamsulosin Hcl (Tamsulosin HCl) 0.4 Mg Capsule, 0.4 MG PO QHS, (Reported) Scheduled PRN Acetaminophen (Acetaminophen) 500 Mg Tablet, 1,000 MG PO Q8H PRN for PAIN, (Reported) TAKES WITH TRAMADOL PRN Levalbuterol Hydrochloride (Xopenex Hfa) 15 Gm Hfa.aer.ad, 2 PUFF INH Q6H PRN for SHORTNESS OF BREATH, (Reported) Tramadol HCl (Tramadol HCl) 50 Mg Tablet, 50 MG PO Q6H PRN for PAIN, (Reported) Allergies Coded Allergies: petrolatum,white (Verified Allergy, Mild, ITCH/RASH, 09/21/19) fluconazole (Verified Allergy, Unknown, UNKNOWN REACTION, 09/16/19) fluticasone (Verified Allergy, Unknown, UNKNOWN REACTION, 09/16/19) metformin (Verified Allergy, Unknown, UNKNOWN REACTION, 09/16/19) promethazine (Verified Adverse Reaction, Intermediate, Altered Mental Status , 09/21/19) azithromycin (Verified Adverse Reaction, Unknown, LOWERS BP, 09/16/19) clarithromycin (Verified Adverse Reaction, Unknown, LOWERS BP, 09/16/19) procaine (Verified Adverse Reaction, Unknown, DIZZINESS, 09/16/19) Past Medical History Medical History Enteroviral gastroenteritis. COVID-19 reinfection. False positive C. difficile, most likely colonization. Test was performed on formed stool. Acute kidney injury due to dehydration. Chronic kidney disease, stage III. Chronic neuropathy. Chronic atrial fibrillation. Chronic hypoxic respiratory failure on 2 liters of home oxygen. Chronic obstructive pulmonary disease (COPD). Gastroparesis with abnormal gastric emptying scan. Insomnia. BPH. Restless legs. Debility with failure to thrive. COVID-19 pneumonia treated in July 2019. Bilateral renal cysts. Hematuria. 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 Watchman procedure. Atrial fibrillation with cardiac ablation. Hypertension. Reflux. Hyperlipidemia. COVID-19 positive June 2019 with pneumonia. Intractable nausea, vomiting. 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 Watchman procedure. Atrial fibrillation with cardiac ablation. Family History I personally reviewed family history and found not pertinent Social History * Smoker: Denies Alcohol: Denies Drugs: denies A-FIB/CHADSVASC A-FIB History Current/History of A-Fib/PAF?: Yes Current PO Anticoag Therapy: Yes Review of Systems Constitutional: Denies: Chills, Fever Eyes: Denies: Pain Skin: Denies: Rash, Lesions Pulmonary: Denies: Dyspnea, Cough Cardiovascular: Denies: Chest Pain Gastrointestinal: Denies: Nausea, Vomiting Genitourinary: Denies: Dysuria Hematologic: Denies: Bruising Endocrine: Denies: Polydipsia Musculoskeletal: Denies: Neck Pain Neurological: Denies: Weakness, Numbness Psych: Reports: Mood Normal Physical Examination General Exam: Positive: No Acute Distress, Other Eye Exam: Positive: PERRLA ENT Exam: Positive: Atraumatic Neck Exam: Negative: Supple, JVD Chest Exam: Positive: Clear to auscultation Heart Exam: Positive: Irregular Rhythm Telemetry: Positive: Atrial fibrillation Abdomen Exam: Positive: Normal bowel sounds Extremity Exam: Negative: Clubbing, Cyanosis Skin Exam: Positive: Nl turgor and temperature Neuro Exam: Positive: Strength at 5/5 X4 ext, Cranial Nerves 3-12 NL Psych Exam: Negative: Oriented x 3 (patient oriented in place but not in time) Vital Signs Vital Signs Date Time Temp Pulse Resp B/P (MAP) Pulse Ox O2 Delivery O2 Flow Rate FiO2 01/17/20 18:45 69 18 131/60 (83) 96 Room Air 01/17/20 17:13 98.6 Laboratory Data Labs 24H Laboratory Tests 2 01/17/20 18:14: Immature Granulocyte % (Auto) , Neutrophils (%) (Auto) , Nucleated Red Blood Cells % (auto) 0.0, Neutrophils 83H, Band Neutrophils 1, Lymphocytes (Manual) 5L, Monocytes (Manual) 7H, Myelocytes 3H, Atypical Lymphocytes 1, Anisocytosis 2+, Platelet Estimate NORMAL, Anion Gap 4L, Glomerular Filtration Rate > 60.0, Osmolality 292, Lactic Acid Level 0.9, Calcium Level 8.7L, Total Bilirubin 0.6, Direct Bilirubin 0.2, Aspartate Amino Transf (AST/SGOT) 14, Alanine Aminotransferase (ALT/SGPT) 17, Alkaline Phosphatase 70, Total Creatine Kinase 24L, Creatine Kinase MB 1.5, Creatine Kinase MB Relative Index 6.25H, Troponin I < 0.02, Total Protein 5.4L, Albumin 2.5L, Albumin/Globulin Ratio 0.9, Thyroid Stimulating Hormone (TSH) 0.928 01/17/20 20:27: Urine Color YELLOW, Urine Appearance CLEAR, Urine pH 6.0, Urine Specific Iron 1.015, Urine Protein NEGATIVE, Urine Glucose (UA) NEGATIVE, Urine Ketones NEGATIVE, Urine Blood NEGATIVE, Urine Nitrite NEGATIVE, Urine Bilirubin NEGATIVE, Urine Urobilinogen 0.2, Urine Leukocyte Esterase NEGATIVE, Urine WBC (Auto) 3, Urine RBC (Auto) 0, Urine Hyaline Casts (Auto) 0, Urine Bacteria (Auto) NEGATIVE, Urine Squamous Epithelial Cells 0, Urine Sperm (Auto) CBC/BMP Laboratory Tests 01/17/20 18:14 Microbiology Microbiology 01/17/20 Blood Culture, Received Pending 01/17/20 Blood Culture, Received Pending Assessment/Plan Patient is 84 years old male with past history of COVID19, dementia, neuropathy, atrial fibrillation status post watchman procedure and cardiac ablation, COPD currently on 2 L home oxygen, gastroparesis, BPH was brought to emergency department due to altered mental status. According to family patient became more confused today, he was not oriented in place and time, they decided to bring him to the hospital. His symptoms waxing and waning. Patient follows with Dr. 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 In ER patient was found to have leukocytes count of 13.4, hemoglobin 9.1, TSH within normal limit. CT head negative for acute bleed or acute, x-ray chest negative for acute infiltrate Problems (1) Metabolic encephalopathy Status: Chronic Problem Text: Multifactorial Could be attributed to progressive dementia and multiple comorbidities. Dr. Chacon was contacted by phone by ER and he recommended EEG Patient afebrile, UA negative, nontoxic Patient might need placement (2) Afib Status: Chronic Problem Text: Continue oral targeted anticoagulation Heart rate under control (3) HTN (hypertension) Status: Chronic Problem Text: Blood pressures under control Continue home cardioprotective medication (4) COPD (chronic obstructive pulmonary disease) Status: Chronic Problem Text: Not in acute exacerbation Continue inhalers (5) Leukocytosis Status: Chronic Problem Text: Patient has mild leukocytosis Patient afebrile, nontoxic, normotensive Most likely attributed to steroids Plan / VTE VTE Prophylaxis Ordered?: Yes BERONICA LOMELI DO Jan 17, 2020 22:04
[2020-01-17 22:55] VITALS: BP 143/72
[2020-01-17] MEDS: TAMSULOSIN 0.4 MG CAP PO SCH (23:50)
[2020-01-17] MEDS: APIXABAN 2.5 MG TAB (ELIQUIS) PO SCH (23:50)
[2020-01-17] MEDS: predniSONE 2.5 MG TAB PO SCH (23:50)
[2020-01-17] MEDS: rOPINIRole 0.25 MG TAB(REQUIP) PO SCH (23:50)
[2020-01-17] MEDS: FINASTERIDE 5 MG TAB PO SCH (23:50)
[2020-01-17] MEDS: atenoloL 25 MG TAB PO SCH (23:51)
[2020-01-17] MEDS: ACETAMINOPHEN 500 MG TAB PO PRN (23:52)
[2020-01-18 06:00] VITALS: BP 139/69
[2020-01-18 06:16] LABS: HEMATOCRIT 28.4 % (42.0-52.0); HEMOGLOBIN 9.2 g/dl (13.5-17.5); MEAN CORPUSCULAR HEMOGLOBIN 28.7 pg (27.0-33.0); MEAN CORPUSCULAR HGB CONC 32.4 g/dl (32.0-36.5); MEAN CORPUSCULAR VOLUME 88.5 fl (80.0-96.0); PLATELET COUNT, AUTOMATED 184 10^3/uL (150-450); RED BLOOD COUNT 3.21 10^6/uL (4.30-6.10)
[2020-01-18 06:35] LABS: ALBUMIN 2.1 GM/DL (3.2-5.2); ALT/SGPT 13 U/L (12-78); BILIRUBIN,TOTAL 0.5 MG/DL (0.2-1.0); BLOOD UREA NITROGEN 18 MG/DL (7-18); CALCIUM LEVEL 8.2 MG/DL (8.8-10.2); CARBON DIOXIDE LEVEL 30 MEQ/L (21-32); CHLORIDE LEVEL 107 MEQ/L (98-107); CREATININE FOR GFR 1.15 MG/DL (0.70-1.30); GLOMERULAR FILTRATION RATE > 60.0 (>35); GLUCOSE, FASTING 102 MG/DL (70-100); MAGNESIUM LEVEL 1.6 MG/DL (1.8-2.4); SODIUM LEVEL 142 MEQ/L (136-145); TOTAL PROTEIN 5.2 GM/DL (6.4-8.2)
[2020-01-18] MEDS: SYMBICORT 160/4.5MCG INHALER 6GM INH SCH ×2 (07:49→19:24)
[2020-01-18] MEDS ORDERED: MAG SULF 1GM/100ML (MAG RUN) 1 GM in IV 1 EA IV ONE (08:00)
--- NOTE | 2020-01-18 08:24 | ECGEPIP ---
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
[2020-01-18] MEDS ORDERED: HEPARIN SOD (PORCINE) 5000UNITS/ML 1ML VIAL/SYRINGE SC SCH (09:00)
[2020-01-18 09:23] LABS: FOLATE 14.5 NG/ML (>5.4)
[2020-01-18] MEDS: atenoloL 25 MG TAB PO SCH ×2 (09:24→20:11)
[2020-01-18] MEDS: PARoxetine 20 MG TAB PO SCH (09:25)
[2020-01-18] MEDS: APIXABAN 2.5 MG TAB (ELIQUIS) PO SCH ×2 (09:25→20:10)
[2020-01-18] MEDS: AMIODARONE 200 MG TAB (PACERONE) PO SCH (09:25)
[2020-01-18] MEDS: OMEPRAZOLE 20 MG CAP PO SCH (09:25)
[2020-01-18] MEDS: FERROUS SULFATE 325MG TAB PO SCH (09:25)
[2020-01-18] MEDS: predniSONE 5 MG TAB PO SCH (09:34)
[2020-01-18 15:00] VITALS: BP 137/67
--- NOTE | 2020-01-18 18:53 | IPNPDOC ---
Text Note Date of Service The patient was seen on 01/18/20. NOTE Subjective: Patient was seen and examined this morning at bedside. Patient seems awake and oriented 3x. His answering all questions appropriately. No overnight events. I asked him more about his episodes of falling at home and he tells me that on multiple occasions he wakes up confused and sometimes passes urine by accident and bites his tongue. He is usually told by others about him passing out and he does not recollect the events. Objective: Constitutional: Awake and alert, in no apparent distress ENT: Sclera are clear. Mucosa is moist. Respiratory: Lungs CTA bilaterally. No respiratory distress. No use of accessory muscles. Cardiovascular: Irregular heart rate no murmur Gastrointestinal: Abdomen is soft, non distended, non tender, BS present. Musculoskeletal: No edema. Neurologic: Bilateral foot drop left greater than right decreased lower extremity reflexes Mental Status: A&O x3, normal affect Skin: Multiple areas of ecchymoses especially around the elbows and arms. Assessment/plan: Patient is 84 years old male with past history of COVID19, dementia, neuropathy, atrial fibrillation status post watchman procedure and cardiac ablation, COPD currently on 2 L home oxygen, gastroparesis, BPH was brought to emergency department due to altered mental status. According to family patient became more confused today, he was not oriented in place and time, they decided to bring him to the hospital. His symptoms waxing and waning. Patient follows with Dr. 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 CT head negative for acute bleed or acute. Patient's confusion seems to have resolved by the second day of admission. I had a discussion with Dr. Chacon about the possibility of the patient is having seizures and he agreed that we can start him empirically on Keppra 500 twice a day and have him follow up with him in the clinic in 2-4 weeks. The family Niharika and Tracy are hesitant to take him back home in her words are not able to take care of him anymore and hoping is able to undergo some rehabilitation therapy before going back home. # Confusion: Appears to have resolved now. Could be multifactorial from Lewy body dementia versus seizure and postictal state. I discussed the case with Dr. Chacon who recently saw the patient is clinic a few weeks ago and he agrees for name Iglesias trial of Keppra 500 twice a day and follow-up with him in the clinic in 2-4 weeks. PT/OT for frequent falls. # Lewy body dementia: Following up with urology outpatient. Continue Requip. # A. fib: Rate controlled. Continue atenolol and Eliquis. Also on amiodarone and Cardizem # CAD: Dual-chamber Pacemaker in place. Continue amiodarone, atenolol, Cardizem # HTN: Continue home meds. Monitor and titrate. # Leukocytosis: Chronic. Likely from steroid use. Afebrile CXR reviewed # COPD: Continue inhalers. 2 L O2 at home # Depression: On paroxetine # DVT prophylaxis: Eliquis Disposition: he family Niharika and Tracy are hesitant to take him back home in her words are not able to take care of him anymore and hoping is able to undergo some rehabilitation therapy before going back home. Social work to have discussion with family. [facility] Daylin MARIN, I+O VSDaylin I+O Laboratory Tests 01/18/20 05:47 Vital Signs Date Time Temp Pulse Resp B/P (MAP) Pulse Ox O2 Delivery O2 Flow Rate FiO2 01/18/20 15:00 98.8 71 17 137/67 (90) 95 Nasal Cannula 2.0 I&O- Last 24 Hours up to 6 AM 01/18/20 06:00 Intake Total 20 ml Output Total 0 ml Balance 20 ml ELIANE ZAVALA MD Jan 18, 2020 18:53
[2020-01-18] MEDS: ACETAMINOPHEN 500 MG TAB PO PRN (20:10)
[2020-01-18] MEDS: FINASTERIDE 5 MG TAB PO SCH (20:10)
[2020-01-18] MEDS: rOPINIRole 0.25 MG TAB(REQUIP) PO SCH (20:11)
[2020-01-18] MEDS: levETIRAcetam 250MG TABLET (KEPPRA) PO SCH (20:11)
[2020-01-18] MEDS: TAMSULOSIN 0.4 MG CAP PO SCH (20:12)
[2020-01-18] MEDS: predniSONE 2.5 MG TAB PO SCH (20:12)
[2020-01-18 22:00] VITALS: BP 132/66
[2020-01-19 06:00] VITALS: BP 131/65
[2020-01-19 06:18] LABS: HEMATOCRIT 27.1 % (42.0-52.0); HEMOGLOBIN 8.9 g/dl (13.5-17.5); MEAN CORPUSCULAR HEMOGLOBIN 29.5 pg (27.0-33.0); MEAN CORPUSCULAR HGB CONC 32.8 g/dl (32.0-36.5); MEAN CORPUSCULAR VOLUME 89.7 fl (80.0-96.0); PLATELET COUNT, AUTOMATED 189 10^3/uL (150-450); RED BLOOD COUNT 3.02 10^6/uL (4.30-6.10)
[2020-01-19 06:36] LABS: BLOOD UREA NITROGEN 25 MG/DL (7-18); CALCIUM LEVEL 7.9 MG/DL (8.8-10.2); CARBON DIOXIDE LEVEL 28 MEQ/L (21-32); CHLORIDE LEVEL 110 MEQ/L (98-107); CREATININE FOR GFR 1.15 MG/DL (0.70-1.30); GLOMERULAR FILTRATION RATE > 60.0 (>35); GLUCOSE, FASTING 131 MG/DL (70-100); POTASSIUM SERUM 3.7 MEQ/L (3.5-5.1); SODIUM LEVEL 144 MEQ/L (136-145)
--- NOTE | 2020-01-19 07:47 | IPNPDOC ---
Text Note Date of Service The patient was seen on 01/19/20. NOTE Subjective: Patient was seen and examined this morning at bedside. Patient seems awake and oriented 3x. His answering all questions appropriately. No overnight events. Objective: Constitutional: Awake and alert, in no apparent distress ENT: Sclera are clear. Mucosa is moist. Respiratory: Lungs CTA bilaterally. No respiratory distress. No use of accessory muscles. Cardiovascular: Irregular heart rate no murmur Gastrointestinal: Abdomen is soft, non distended, non tender, BS present. Musculoskeletal: No edema. Neurologic: Bilateral foot drop left greater than right decreased lower extremity reflexes Mental Status: A&O x3, normal affect Skin: Multiple areas of ecchymoses especially around the elbows and arms. Assessment/plan: Patient is 84 years old male with past history of COVID19, dementia, neuropathy, atrial fibrillation status post watchman procedure and cardiac ablation, COPD currently on 2 L home oxygen, gastroparesis, BPH was brought to emergency department due to altered mental status. According to family patient became more confused today, he was not oriented in place and time, they decided to bring him to the hospital. His symptoms waxing and waning. Patient follows with Dr. 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 CT head negative for acute bleed or acute. Patient's confusion seems to have resolved by the second day of admission. I had a discussion with Dr. Chacon about the possibility of the patient is having seizures and he agreed that we can start him empirically on Keppra 500 twice a day and have him follow up with him in the clinic in 2-4 weeks. The family Niharika and Tracy are hesitant to take him back home in her words are not able to take care of him anymore and hoping is able to undergo some rehabilitation therapy before going back home. Plan for subacute rehabilitation. Patient is medically cleared for discharge and was switched ALC status 01/19/2020. #Acute encephalopathy: Appears to have resolved now. Could be multifactorial from Lewy body dementia versus seizure and postictal state. I discussed the case with Dr. Chacon who recently saw the patient is clinic a few weeks ago and he agrees for trial of Keppra 500 twice a day and follow-up with him in the clinic in 2-4 weeks. PT/OT for frequent falls recommend subacute rehabilitation. # Lewy body dementia: Following up with urology outpatient. Continue Requip. # A. fib: Rate controlled. Continue atenolol and Eliquis. Also on amiodarone and Cardizem # CAD: Dual-chamber Pacemaker in place. Continue amiodarone, atenolol, Cardizem # HTN: Continue home meds. Monitor and titrate. # Leukocytosis: Chronic. Likely from steroid use. Afebrile CXR reviewed # COPD: Continue inhalers. 2 L O2 at home # Depression: On paroxetine # DVT prophylaxis: Eliquis Disposition: Subacute rehabilitation [facility] Daylin MARIN, I+O VSDaylin I+O Laboratory Tests 01/19/20 05:17 Vital Signs Date Time Temp Pulse Resp B/P (MAP) Pulse Ox O2 Delivery O2 Flow Rate FiO2 01/19/20 06:00 99.0 70 18 131/65 (87) 99 Nasal Cannula 2.0 I&O- Last 24 Hours up to 6 AM 01/19/20 06:00 Intake Total 440 ml Output Total 0 ml Balance 440 ml ELIANE ZAVALA MD Jan 19, 2020 07:47
[2020-01-19] MEDS: SYMBICORT 160/4.5MCG INHALER 6GM INH SCH ×2 (08:33→20:51)
[2020-01-19] MEDS: ACETAMINOPHEN 500 MG TAB PO PRN (09:29)
[2020-01-19] MEDS: atenoloL 25 MG TAB PO SCH ×2 (09:30→20:36)
[2020-01-19] MEDS: FERROUS SULFATE 325MG TAB PO SCH (09:30)
[2020-01-19] MEDS: predniSONE 5 MG TAB PO SCH (09:30)
[2020-01-19] MEDS: AMIODARONE 200 MG TAB (PACERONE) PO SCH (09:31)
[2020-01-19] MEDS: levETIRAcetam 250MG TABLET (KEPPRA) PO SCH ×2 (09:31→20:36)
[2020-01-19] MEDS: PARoxetine 20 MG TAB PO SCH (09:31)
[2020-01-19] MEDS: APIXABAN 2.5 MG TAB (ELIQUIS) PO SCH ×2 (09:31→20:36)
[2020-01-19] MEDS: OMEPRAZOLE 20 MG CAP PO SCH (09:31)
--- NOTE | 2020-01-19 12:44 | EEG ---
DATE: 01/18/2020 DIAGNOSIS: Metabolic encephalopathy. EEG# [id number] REFERRING PHYSICIAN: Dr. Casimiro Graves HISTORY: The patient is an 84-year-old man with a history of dementia, neuropathy, atrial fibrillation status post Watchman procedure, COVID-19 who was brought to [facility] due to altered mental status. He became confused and disoriented. This EEG was done to rule out epileptic potential. He is currently taking Amiodarone, Paxil, Atenolol, ropinirole, Eliquis, etc. TECHNICAL DESCRIPTION: This digital electroencephalogram (EEG) was recorded by 21 scalp, ear and two electrocardiogram (EKG) electrodes and was reviewed in bipolar and referential montages following a reformatting in 10-20 international electrode placement system. INTERPRETATION: Patient was noted to be in awake and drowsy states during this EEG. Resting background rhythm consisted of 4-5 Hz beta activity measuring 15-40 which was symmetric and reactive. The patient remained drowsy and asleep throughout this EEG. Hyperventilation could not be performed. Photic stimulation remained unremarkable. EKG revealed irregular heartbeat. No focal, lateralizing, or epileptiform abnormalities were seen. No relevant clinical activity was noted. CONCLUSION: This EEG in mostly drowsy and asleep states is abnormal due to presence of generalized slowing and disorganization of background consistent with nonspecific diffuse cerebellar dysfunction such as seen in encephalopathy due to multiple potential causes including toxic, metabolic, infectious, medication-related, or multifocal structural brain abnormalities. No epileptiform abnormalities were seen. MTDD
[2020-01-19 14:00] VITALS: BP 126/64
[2020-01-19 20:02] VITALS: BP 119/64
[2020-01-19] MEDS: TAMSULOSIN 0.4 MG CAP PO SCH (20:36)
[2020-01-19] MEDS: rOPINIRole 0.25 MG TAB(REQUIP) PO SCH (20:36)
[2020-01-19] MEDS: FINASTERIDE 5 MG TAB PO SCH (20:36)
[2020-01-19] MEDS: predniSONE 2.5 MG TAB PO SCH (20:36)
[2020-01-20 06:00] VITALS: BP 119/73
[2020-01-20 07:13] LABS: HEMATOCRIT 30.4 % (42.0-52.0); HEMOGLOBIN 9.7 g/dl (13.5-17.5); MEAN CORPUSCULAR HEMOGLOBIN 28.6 pg (27.0-33.0); MEAN CORPUSCULAR HGB CONC 31.9 g/dl (32.0-36.5); MEAN CORPUSCULAR VOLUME 89.7 fl (80.0-96.0); PLATELET COUNT, AUTOMATED 212 10^3/uL (150-450); RED BLOOD COUNT 3.39 10^6/uL (4.30-6.10); WHITE BLOOD COUNT 12.9 10^3/uL (4.0-10.0)
[2020-01-20 07:35] LABS: BLOOD UREA NITROGEN 18 MG/DL (7-18); CARBON DIOXIDE LEVEL 27 MEQ/L (21-32); CHLORIDE LEVEL 111 MEQ/L (98-107); CREATININE FOR GFR 1.01 MG/DL (0.70-1.30); GLOMERULAR FILTRATION RATE > 60.0 (>35); GLUCOSE, FASTING 109 MG/DL (70-100); POTASSIUM SERUM 4.2 MEQ/L (3.5-5.1); SODIUM LEVEL 145 MEQ/L (136-145)
[2020-01-20] MEDS: SYMBICORT 160/4.5MCG INHALER 6GM INH SCH ×2 (07:52→20:08)
[2020-01-20] MEDS: OMEPRAZOLE 20 MG CAP PO SCH (08:22)
[2020-01-20] MEDS: PARoxetine 20 MG TAB PO SCH (08:22)
[2020-01-20] MEDS: FERROUS SULFATE 325MG TAB PO SCH (08:22)
[2020-01-20] MEDS: predniSONE 5 MG TAB PO SCH (08:23)
[2020-01-20] MEDS: APIXABAN 2.5 MG TAB (ELIQUIS) PO SCH ×2 (08:23→20:57)
[2020-01-20] MEDS: levETIRAcetam 250MG TABLET (KEPPRA) PO SCH ×2 (08:23→20:56)
[2020-01-20] MEDS: AMIODARONE 200 MG TAB (PACERONE) PO SCH (08:23)
[2020-01-20] MEDS: atenoloL 25 MG TAB PO SCH ×2 (08:25→20:57)
[2020-01-20 20:00] VITALS: BP 134/63
[2020-01-20] MEDS: TAMSULOSIN 0.4 MG CAP PO SCH (20:56)
[2020-01-20] MEDS: rOPINIRole 0.25 MG TAB(REQUIP) PO SCH (20:56)
[2020-01-20] MEDS: FINASTERIDE 5 MG TAB PO SCH (20:56)
[2020-01-20] MEDS: predniSONE 2.5 MG TAB PO SCH (20:57)
[2020-01-21 05:38] VITALS: BP 123/74
[2020-01-21] MEDS: SYMBICORT 160/4.5MCG INHALER 6GM INH SCH (07:14)
[2020-01-21] MEDS: OMEPRAZOLE 20 MG CAP PO SCH (07:40)
[2020-01-21] MEDS: levETIRAcetam 250MG TABLET (KEPPRA) PO SCH (07:41)
[2020-01-21] MEDS: ACETAMINOPHEN 500 MG TAB PO PRN (07:41)
[2020-01-21] MEDS: AMIODARONE 200 MG TAB (PACERONE) PO SCH (07:41)
[2020-01-21] MEDS: predniSONE 5 MG TAB PO SCH (07:42)
[2020-01-21] MEDS: APIXABAN 2.5 MG TAB (ELIQUIS) PO SCH (07:42)
[2020-01-21] MEDS: FERROUS SULFATE 325MG TAB PO SCH (07:42)
[2020-01-21 07:43] VITALS: BP 123/74
[2020-01-21] MEDS: atenoloL 25 MG TAB PO SCH (07:43)
[2020-01-21] MEDS: PARoxetine 20 MG TAB PO SCH (07:43)
--- NOTE | 2020-01-21 10:49 | DS.PDOC ---
Discharge Summary General Date of Admission Jan 17, 2020 at 21:40 Date of Discharge 01/21/2020 Discharge Summary PROCEDURES PERFORMED DURING STAY: [None]. ADMITTING DIAGNOSES: 1. Altered mental status DISCHARGE DIAGNOSES: 1. Possible postictal state from seizure versus Lewy body dementia COMPLICATIONS/CHIEF COMPLAINT: Metabolic Encephalopathy. HISTORY OF PRESENT ILLNESS: HPI from admitting H&P: Patient is 84 years old male with past history of COVID19, dementia, neuropathy, atrial fibrillation status post watchman procedure and cardiac ablation, COPD currently on 2 L home oxygen, gastroparesis, BPH was brought to emergency department due to altered mental status. According to family patient became more confused today, he was not oriented in place and time, they decided to bring him to the hospital. His symptoms waxing and waning. Patient follows with Dr. 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 In ER patient was found to have leukocytes count of 13.4, hemoglobin 9.1, TSH within normal limit. CT head negative for acute bleed or acute, x-ray chest negative for acute infiltrate HOSPITAL COURSE: Patient is 84 years old male with past history of COVID19, dementia, neuropathy, atrial fibrillation status post watchman procedure and cardiac ablation, COPD currently on 2 L home oxygen, gastroparesis, BPH was brought to emergency department due to altered mental status. According to family patient became more confused today, he was not oriented in place and time, they decided to bring him to the hospital. His symptoms waxing and waning. Patient follows with Dr. 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 CT head negative for acute bleed or acute. Patient's confusion seems to have resolved by the second day of admission. I had a discussion with Dr. Chacon about the possibility of the patient is having seizures and he agreed that we can start him empirically on Keppra 500 twice a day and have him follow up with him in the clinic in 2-4 weeks. The family Niharika and Tracy are hesitant to take him back home in her words are not able to take care of him anymore and hoping is able to undergo some rehabilitation therapy before going back home. Plan for subacute rehabilit ation. Patient is medically cleared for discharge and was switched [facility] status 01/19/2020. Discharged on 01/21/2020 to [facility] for short-term rehabilitation #Acute encephalopathy: Appears to have resolved now. Could be multifactorial from Lewy body dementia versus seizure and postictal state. I discussed the case with Dr. Chacon who recently saw the patient is clinic a few weeks ago and he agrees for trial of Keppra 500 twice a day and follow-up with him in the clinic in 2-4 weeks. PT/OT for frequent falls recommend rehabilitation. # Lewy body dementia: Following up with Neurology outpatient. Continue Requip. # A. fib: Rate controlled. Continue atenolol and Eliquis. Also on amiodarone and Cardizem # CAD: Dual-chamber Pacemaker in place. Continue amiodarone, atenolol, Cardizem # HTN: Continue home meds. # Leukocytosis: Chronic. Likely from steroid use. Afebrile CXR ok # COPD: Continue inhalers. 2 L O2 at home # Depression: On paroxetine DISCHARGE MEDICATIONS: Please see below. ALLERGIES: Please see below. PHYSICAL EXAMINATION ON DISCHARGE: VITAL SIGNS: Please see below. Constitutional: Awake and alert, in no apparent distress ENT: Sclera are clear. Mucosa is moist. Respiratory: Lungs CTA bilaterally. No respiratory distress. No use of accessory muscles. Cardiovascular: Irregular heart rate no murmur Gastrointestinal: Abdomen is soft, non distended, non tender, BS present. Musculoskeletal: No edema. Neurologic: Bilateral foot drop left greater than right decreased lower extremity reflexes Mental Status: A&O x3, normal affect Skin: Multiple areas of ecchymoses especially around the elbows and arms. LABORATORY DATA: Please see below. IMAGING: Head CT 01/17/2020 impression is: 1. No acute intracerebral abnormality or injury. No acute infarct or intracerebral bleed. 2. 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 3. [place] Stroke Program Early CT Score (ASPECTS score) = 10. Chest x-ray 01/17/2020 impression is: 1. Comparison to the previous chest radiograph from 09/22/2019 shows no major interval change. 2. A left subclavian dual-chamber pacemaker is present in satisfactory position. 3. The heart size is normal. 4. Streaky areas of probable pulmonary parenchymal scarring are seen in the basal segment right upper lobe similar to the previous chest radiograph. PROGNOSIS: Fair ACTIVITY: [As tolerated]. DIET: 2 g sodium diet DISPOSITION: Rehabilitation DISCHARGE INSTRUCTIONS: Please follow up with your primary care physician within 1 week from discharge. If you do not have one, please follow up with us to schedule an appointment. Please keep all of your follow up appointments. Please call central to book your appointments with hospital specialists. Please take all your medications as prescribed. Please call/come to Clinic or go to the Emergency Department if - Temp >101, intractable Nausea/Vomiting, Diarrhea, Mouth sores, Headaches, Altered mental status, Seizures, sudden onset of swelling, bleeding, shortness of breath or chest pain. ITEMS TO FOLLOWUP ON ON OUTPATIENT: Follow-up with cardiology and primary care doctor and neurology DISCHARGE CONDITION: [Stable]. TIME SPENT ON DISCHARGE: 42 minutes. Vital Signs/I&Os Vital Signs Date Time Temp Pulse Resp B/P (MAP) Pulse Ox O2 Delivery O2 Flow Rate FiO2 01/21/20 07:43 71 123/74 01/21/20 05:38 97.3 20 97 Nasal Cannula 2.0 I&O- Last 24 Hours up to 6 AM 01/21/20 06:00 Intake Total 1790 ml Output Total 200 ml Balance 1590 ml Microbiology Microbiology 01/19/20 Respiratory Virus Panel (PCR) (PEG) - Final, Complete Human Rhinovirus/Enterovirus 01/17/20 Blood Culture - Preliminary, Resulted No Growth after 72 hours. All specime... 01/17/20 Blood Culture - Preliminary, Resulted No Growth after 72 hours. All specime... Discharge Medications Scheduled Amiodarone HCl (Amiodarone HCl) 200 Mg Tablet, 200 MG PO DAILY, (Reported) Apixaban (Eliquis) 2.5 Mg Tab, 2.5 MG PO BID, (Reported) Atenolol (Atenolol) 25 Mg Tablet, 25 MG PO BID, (Reported) Budesonide/Formoterol (Symbicort 160-4.5 Mcg Inhaler) 6 Gm Hfa.aer.ad, 2 PUFF INH BID, (Reported) Diltiazem HCl (Diltiazem HCl) 120 Mg Tablet, 120 MG PO DAILY, (Reported) Ferrous Sulfate (Ferrous Sulfate) 325 Mg Tablet, 325 MG PO DAILY, (Reported) Finasteride (Finasteride) 5 Mg Tab, 5 MG PO QHS, (Reported) Levetiracetam (Keppra) 250 Mg Tablet, 500 MG PO BID [place]-3 Fatty Acids/Fish Oil (Fish Oil 1,200 mg Softgel) 1 Each Capsule, 1,200 MG PO BID, (Reported) Omeprazole (Omeprazole) 40 Mg Capsule.dr, 40 MG PO DAILY, (Reported) Paroxetine HCl (Paroxetine HCl) 20 Mg Tablet, 20 MG PO DAILY, (Reported) Prednisone (Prednisone) 5 Mg Tab, 5 MG PO QAM, (Reported) Prednisone (Prednisone) 2.5 Mg Tablet, 2.5 MG PO QPM, (Reported) Ropinirole HCl (Ropinirole HCl) 0.25 Mg Tablet, 0.25 MG PO QHS, (Reported) Tamsulosin Hcl (Tamsulosin HCl) 0.4 Mg Capsule, 0.4 MG PO QHS, (Reported) Scheduled PRN Acetaminophen (Acetaminophen) 500 Mg Tablet, 1,000 MG PO Q8H PRN for PAIN, (Reported) TAKES WITH TRAMADOL PRN Levalbuterol Hydrochloride (Xopenex Hfa) 15 Gm Hfa.aer.ad, 2 PUFF INH Q6H PRN for SHORTNESS OF BREATH, (Reported) Tramadol HCl (Tramadol HCl) 50 Mg Tablet, 50 MG PO Q6H PRN for PAIN, (Reported) Allergies Coded Allergies: petrolatum,white (Verified Allergy, Mild, ITCH/RASH, 09/21/19) fluconazole (Verified Allergy, Unknown, UNKNOWN REACTION, 09/16/19) fluticasone (Verified Allergy, Unknown, UNKNOWN REACTION, 09/16/19) metformin (Verified Allergy, Unknown, UNKNOWN REACTION, 09/16/19) promethazine (Verified Adverse Reaction, Intermediate, Altered Mental Status , 09/21/19) azithromycin (Verified Adverse Reaction, Unknown, LOWERS BP, 09/16/19) clarithromycin (Verified Adverse Reaction, Unknown, LOWERS BP, 09/16/19) procaine (Verified Adverse Reaction, Unknown, DIZZINESS, 09/16/19) ELIANE ZAVALA MD Jan 21, 2020 10:49
[2020-01-21] MEDS ORDERED: KEPP250T5 PO (10:51)
== END 2020-01-21 12:08 | DRG 71 ==
LOC: M ED 16:51 → M ED INP 21:40 → ENRESERV 22:08 → M MS5PR 23:25
PROVIDERS: ADMIT Internal Medicine; ATTEND Family Medicine
DX: G93.41 Metabolic encephalopathy (principal); I48.20 Chronic atrial fibrillation, unspecified; J96.11 Chronic respiratory failure with hypoxia; 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, or unspecified chronic kidney disease; J44.9 Chronic obstructive pulmonary disease, unspecified; D72.829 Elevated white blood cell count, unspecified; G31.83 Neurocognitive disorder with Lewy bodies; E78.5 Hyperlipidemia, unspecified; G62.9 Polyneuropathy, unspecified; F02.80 Dementia in other diseases classified elsewhere, unspecified severity, without behavioral disturbance, psychotic disturbance, mood disturbance, and anxiety; G25.81 Restless legs syndrome; Z66 Do not resuscitate; I49.5 Sick sinus syndrome; K21.9 Gastro-esophageal reflux disease without esophagitis; G47.00 Insomnia, unspecified; N18.30 Chronic kidney disease, stage 3 unspecified; N40.0 Benign prostatic hyperplasia without lower urinary tract symptoms; K31.84 Gastroparesis; Z79.01 Long term (current) use of anticoagulants; Z79.52 Long term (current) use of systemic steroids; Z99.81 Dependence on supplemental oxygen; Z79.899 Other long term (current) drug therapy; Z88.1 Allergy status to other antibiotic agents; Z88.8 Allergy status to other drugs, medicaments and biological substances; Z95.0 Presence of cardiac pacemaker

== ENCOUNTER 2020-05-19 10:49 | Observation (INO) | payer MEDICARE ==
[~2020-05-19] VITALS: Ht 170.2 cm; Wt 65.0 kg
[~2020-05-19 10:49] MED LIST changes: +DILT120T PO; +KEPP250T5 PO
[2020-05-19] MEDS ORDERED: iron PO (11:42)
[2020-05-19] MEDS ORDERED: GABA-1171 PO (11:42)
[2020-05-19] MEDS ORDERED: TORS20TA2 PO (11:42)
[2020-05-19] MEDS ORDERED: FISH1000 PO (11:42)
[2020-05-19] MEDS ORDERED: CALC-356 PO (11:42)
[2020-05-19] MEDS ORDERED: GABAPENTIN 100 MG CAP PO ONE (11:45)
--- NOTE | 2020-05-19 11:45 | REP ---
INDICATION: Altered Mental Status. COMPARISON: Comparison chest x-ray January 17, 2020. TECHNIQUE: Portable upright AP chest radiograph. FINDINGS: A bipolar pacemaker is seen in the right heart view of the left side. The lungs are symmetrically aerated and clear. Pleural angles are sharp. The heart is mildly enlarged. Pulmonary vasculature is not increased.. No bony abnormality is seen. IMPRESSION: No active disease. Pacemaker in place.. <Electronically signed by Mike El > 05/19/20 1806
--- OUTSIDE RECORDS SUMMARY | 2020-05-19 11:52 | CCD | Continuity of Care Document ---
Author Author Pete HENRY PA-C Organization Unknown Address [id number] [place] [address], [place] [address] Phone [phone] Care Team Providers Care Media Relations Associate Name Role Phone Mack Monae MD AUTM [phone] Genna Ordoñez MD AUTM [phone] Faiza Low AUTM [phone] Dwight Brooks MD AUTM [phone] Justen Wagoner MD AUTM [phone] Jose Leslie MD AUTM [phone] Problems Active Problems Provider Date Paroxysmal atrial fibrillation Nancy Henry PA-C Onset: 0 11/13/2015 Benign hypertensive heart disease without congestive h eart failure BRIAN Castillo Onset: 09/30/2011 Conduction disorder of the heart Nancy Henry PA-C Onset: 11/13/2015 Paroxysmal supraventricular tachycardia BRIAN Castillo Onset: 09/30/2011 Electrocardiogram abnormal BRIAN Castillo Onset : 09/30/2011 Pure hypercholesterolemia BRIAN Castillo Onset: 06/18/2012 Sinus node dysfunction BRIAN Castillo Onset: Cardiac pacemaker in situ BRIAN Castillo Onset: 09/30/2011 Chronic diastolic heart failure Nancy Henry PA-C Onset: 09/09/2019 Social History Type Date Description Comments Sex Unknown Tobacco Use Start: Unknown End: Unknown Former Cigarette Smo ker quit in 1989 1ppd for 37yrs ETOH Use Does not consume alcohol Tobacco Use Start: Unknown End: Unknown Patient is a former smoker up to 1ppd from 1952 until quit in 1989 Smoking Status Reviewed: 12/13/19 Patient is a former smoker up to 1ppd from 1952 until quit in 1989 Exercise Type/Frequency Does housework sporadica lly Exercise Type/Frequency Does yardwork sporadical ly Exercise Type/Frequency Does gardening sporadica lly Exercise Limitations Shortness Of Breath Exercise Limitations Fatigue Allergies, Adverse Reactions, Alerts Active Allergies Reaction Severity Comments Date Zithromax Z-Mina itching, rash 09/01/2006 Novacaine syncope 09/01/2006 Clarithromycin severe diarrhea 03/11/2007 Fluconazole nosebleeds 03/17/2013 Metformin kidney failure 10/05/2013 Fluticasone nosebleeds 10/05/2013 Petroleum Alkylate 0 Medications Active Medications SIG Qnty Indications Ordering Provide r Date Torsemide 20mg Tablets 1 b y mouth daily Justen Wagoner MD 05/01/2020 Stool Softener 100mg Capsules 1 by mouth twice every day Unknown 12/12/2019 Paroxetine HCL 40mg Tablets 1 by mouth every day Mack Monae MD 12/12/2019 Vitamin D3 125mcg (5000 Ut) Capsul es 1 by mouth every day Unknown 12/12/2019 Tamsulosin HCL 0.4mg Capsules 1 by mouth every day Mack Monae MD 12/12/2019 Ferrous Gluconate 324(38Fe) mg Tab lets 1 by mouth once a day Mack Monae MD 2019 Megestrol Acetate 625mg/5ML Suspen adrian 5 mL by mouth once daily Mack Monae MD Oxygen - Home 2 lpm via nc Unknown 0 Atenolol 25mg Tablets Take One Tablet By Mouth Twice A Day 180tabs Bertin Dick MD 09/08/2019 Ketoconazole 2% Cream apply to affected areas twice daily x3 weeks Unknown 09/07 Diltiazem HCL 120mg Tablets 1 by mouth once daily 90tabs Bertin Dick MD 09/08/2019 Amiodarone HCL 200mg Tablets 1 by mouth every day 90tabs Bertin Dick MD 09/08/2019 Tramadol HCL 50mg Tablets 1 by mouth every 6 hours as needed, as directed Unknown 0 04/07/2019 Prednisone 5mg Tablets 1.5 by mouth every day Unknown 01/17/[address] 1 by mouth every day Unknown 04/06/2017 Symbicort 160-4.5mcg/Act Aerosol 2 puff twice a day Doc Bradley, 10/09/2014 Finasteride 5mg Tablets 1 by mouth every day Faiza Low, [employer] 015 Eliquis 2.5mg Tablets 1 by mouth twice a day 180tabs I48.0 Bertin Dikc MD 04/23/2013 Xopenex HFA 45mcg/Act Aerosol Inhale Two Puffs By Mouth Every 4 Hours 30units Bertin Dick MD 07/27/2012 [place]-3 Fish Oil 1000mg Capsules 1 po bid Unknown 05/01/2010 Acetaminophen 500mg Capsules PO prn Bertin Dick MD 03/11/2007 Immunizations Description No Information Available Vital Signs Date Vital Result Comment 12/13/2019 11:33am Weight 136.00 lb Home Weight 137lb Height 67 inches 5'7" BMI (Body Mass Index) 21.3 kg/m2 Heart Rate 68 /min Regular Respiratory Rate 16 /min BP Systolic Right Arm 128 mmHg sitting, regular c uff BP Diastolic Right Arm 64 mmHg sitting, regular cuff 09/09/2019 7:48am Weight 134.00 lb Home Weight 138lb Height 67 inches 5'7" BMI (Body Mass Index) 21.0 kg/m2 Respiratory Rate 16 /min BP Systolic Right Arm 130 mmHg sitting, regular c uff BP Diastolic Right Arm 62 mmHg sitting, regular cuff BP Systolic Left Arm 126 mmHg sitting BP Diastolic Left Arm 62 mmHg sitting Results Test Acquired Date Facility Test Result H/L Range Note Tibc/Iron/% Saturation 02/17/2020 [facility] - Iron 61 42-135 Tibc 164 Tibc % Saturation 37 CMP 02/17/2020 [facility] - Albumin Serum/Plasma 2.9 Alt - SGPT 8 Calcium Ser/Plasma Mass/Vol 8.4 Carbon Dioxide Ser/Plasm 32 Chloride Serum/Plasma 106 Alkaline Phosphatase 71 Potassium 4.1 Protein Total 4.3 Sodium 143 Ast - Sgot 12 BUN - Urea Nitrogen 18 Glucose 160 High 65-110 Creatinine For GFR 1.0 CMP 01/22/2020 [facility] - Albumin Serum/Plasma 3.3 Alt - SGPT 8 Calcium Ser/Plasma Mass/Vol 8.9 Carbon Dioxide Ser/Plasm 32 Chloride Serum/Plasma 105 Alkaline Phosphatase 70 Potassium 4.0 Protein Total 5.2 Sodium 144 Ast - Sgot 12 BUN - Urea Nitrogen 19 Glucose 100 65-110 Creatinine For GFR 1.0 Laboratory test finding 01/22/2020 [facility] - Free T4 1.53 Thyroid Stimulating Hormone 2.54 Tibc/Iron/% Saturation 01/22/2020 [facility] - Iron 48 42-135 Tibc 192 Tibc % Saturation 25 Laboratory test finding 01/22/2020 [facility] - Magnesium Ser/Plasma Mass/Vol 1.6 Procedures Description No Information Available Medical Devices Description No Information Available Encounters Type Date Location Provider Dx Diagnosis Office Visit 12/13/2019 11:15a Main Office Nancy Henry PA-C I50.3 2 Chronic diastolic (congestive) heart failure Assessments Date Code Description Provider 12/13/2019 I50.32 Chronic diastolic (congestive) h eart failure Nancy Henry PA-C Plan of Treatment Future Appointment(s):* 05/26/2020 1:00 pm - Nancy Henry PA-C at Main Office 12/13/2019 - Nancy Henry PA-C* I50.32 Chronic diastolic (congestive) heart failure* New Labs:* Comprehensive Metabolic Profil, Scheduled: 12/13/19 * Magnesium Level, Scheduled: 12/13/19 * Recommendations:* Follow a 2 grams sodium diet and 50 ounces fluid restriction per 24 hour and do daily weights. Call the office for weight gain of 3 lbs or more. * All * Follow up:* 3 month follow up. Obtain lab work done at [facility] 12/07/19. Functional Status Functional Condition Comment Date Status Independent with all ADL's Activ e Mental Status Description No Information Available Referrals Description No Information Available
--- OUTSIDE RECORDS SUMMARY | 2020-05-19 11:53 | CCD | Continuity of Care Document ---
Author Author Pete BOLAÑOS WA Organization Unknown Address [address] [facility] [facility], [address] [place] [address] Phone [phone] Care Team Providers Care Substation Mechanic Name Role Phone Mack Monae M.D. AUTM [phone] Bib Wallace [facility] AUTM [phone] Problems Description No Information Available Social History Type Date Description Comments Sex Unknown ETOH Use Denies alcohol use Tobacco Use Start: Unknown End: Unknown Patient is a former smoker 1 ppd x40 years Quit in 1989 Recreational Drug Use Denies Drug Use Allergies, Adverse Reactions, Alerts Active Allergies Reaction Severity Comments Date Procaine Tongue swelling, Throat swelling 05/15/2020 Medications Active Medications SIG Qnty Indications Ordering Provide r Date Iron 27 MG. 1 every day Unknown Fish Oil 300 MG. 1 every day Unknown Calcium 600 MG. 1 every day Unknown 00 Tramadol HCL 50mg Tablets prn Mack Monae M.D. Levalbuterol Tartrate 45mcg/Act Ae rosol Two puffs q4 hours prn Mack Monae M.D. Symbicort 160-4.5mcg/Act Aerosol twice a day 10.200gm Mack Monae M.D. Tamsulosin HCL 0.4mg Capsules 1 cap every day Mack Monae M.D. Ropinirole HCL 0.25mg Tablets 1 tab at bedtime 90tabs Mack Monae M.D. Diltiazem HCL 120mg Tablets 1 tab every day Nancy Dunlap R.PSundar 000 Torsemide 20mg Tablets 1 tab every day 60tabs Justen Wagoner M.D. Prednisone 2.5mg Tablets 1 tab every day 60tabs Mack Monae M.D. Prednisone 5mg Tablets 1 tab every day 30tabs Mack Monae M.D. Paroxetine HCL 10mg Tablets 1 tab every day Mack Monae M.D. Amiodarone HCL 200mg Tablets 1 tab every day Mack Monae M.D. Finasteride 5mg Tablets 1 tab every day Mack Monae M.D. Eliquis 2.5mg Tablets 1 tab twice a day 180tabs Mack Monae M.D. Omeprazole 40mg Capsules DR 1 cap every day 30capMack Pandey M.D. Levetiracetam 500mg Tablets 1 tab twice a day Mack Monae M.D. Atenolol 25mg Tablets 1 ta b twice a day Bertin Dick M.D. Gabapentin 100mg Capsules 1 cap three times a day 60Mack Pardo M.D. Immunizations Description No Information Available Vital Signs Date Vital Result Comment 05/15/2020 11:25am BP Systolic 128 mmHg BP Diastolic 70 mmHg Height 68 inches 5'8" Weight 147.50 lb BMI (Body Mass Index) 22.4 kg/m2 [place] Body Weight 154 lb Weight 66.906 kg BSA (Body Surface Area) 1.80 m2 Results Description No Information Available Procedures Description No Information Available Medical Devices Description No Information Available Encounters Description No Information Available Assessments Description No Information Available Plan of Treatment No Information Available Functional Status Description No Information Available Mental Status Description No Information Available Referrals Refer to Reason for Referral Status Appt Date Siri Hodges MD PERIPHERAL ARTERY DISEASE, LEFT FOOT ULCER Scheduled 05/08/2020 [address] [facility], [address] [place] [address] [phone]
--- OUTSIDE RECORDS SUMMARY | 2020-05-19 11:53 | CCD | Continuity of Care Document ---
Author Author Pete SALGADO DPM Organization Unknown Address [address] [place] [address], [facility] [address] [place] [address] Phone [phone] Care Team Providers Care Health Care Assistant Name Role Phone Justen Wagoner M.D. AUTM [phone] Dov Syed, Mack AUTM [phone] Problems Active Problems Provider Date Type 2 diabetes mellitus with diabetic polyneuropathy Bib Salgado DPM Onset: 11/19/2018 Onychomycosis Bib Salgado DPM Onset: 11/19/2018 Type 2 diabetes mellitus with ulcer Bib Salgado DPM Ons et: 05/01/2020 Pressure ulcer of left foot stage 2 Bib Salgado DPM Ons et: 05/01/2020 Social History Type Date Description Comments Sex Unknown ETOH Use Denies alcohol use Tobacco Use Start: Unknown End: Unknown Patient is a former smoker Allergies, Adverse Reactions, Alerts Active Allergies Reaction Severity Comments Date Zithromax 11/09/2018 Clarithromycin 11/09/2018 Fluconazole 11/09/2018 Novocaine 11/09/2018 Medications Active Medications SIG Qnty Indications Ordering Provide r Date Ketoconazole 2% Cream Apply To Feet Two Times A Day 60units Bib Salgado DPM 11/09/[address] Take One Tablet By Mouth Every Day Unknown Azithromycin 250mg Tablets Mack Monae M.D. Cefdinir 300mg Capsules ADELSO Stark Jane Levalbuterol Tartrate 45mcg/Act Aerosol Kapil Syed,Bertin Amiodarone HCL 100mg Tablets Take One Tablet By Mouth Every Day Unknown Ropinirole HCL 0.25mg Tablets Dov Syed,Mack Prednisone 10mg Tablets Dov Syed,Mack Amiodarone HCL 200mg Tablets Unknown Diltiazem HCL ER 90mg Caps ER 12HR Unknown Torsemide 20mg Tablets Justen Wagoner M.D. Atenolol 100mg Tablets Unknown Fenofibrate 160mg Tablets Dov Syed,Mack Finasteride 5mg Tablets Dov Syed,Mack Omeprazole 40mg Capsules DR Dov Syed,Mack Tamsulosin HCL 0.4mg Capsules Dov Syed,Mack Atenolol 50mg Tablets Dov Syed,Mack Tramadol HCL 50mg Tablets Dov Syed,Mack Torsemide 10mg Tablets Take One Tablet By Mouth Every Day Unknown Diltiazem HCL 120mg Tablets Unknown Symbicort 160-4.5mcg/Act Aerosol Dov Syed,Mack Eliquis 2.5mg Tablets Dov Syed,Mack Prednisone 5mg Tablets Dov Syed,Mack Potassium Chloride Azra ER 20Meq Tablets ER Justen Wagoner M.D. Immunizations Description No Information Available Vital Signs Date Vital Result Comment 12/23/2019 2:08pm Height 66 inches 5'6" Weight 126.00 lb BP Systolic 122 mmHg BP Diastolic 59 mmHg Heart Rate 70 /min BMI (Body Mass Index) 20.3 kg/m2 11/09/2018 7:21am Height 66 inches 5'6" Weight 143.00 lb BP Systolic 109 mmHg BP Diastolic 64 mmHg Heart Rate 68 /min BMI (Body Mass Index) 23.1 kg/m2 Results Description No Information Available Procedures Date Code Description Status 04/28/2020 41717 Debridement Skin/Tissue Complete d 12/23/2019 12464 Debridement 6-10 [employer] Completed Medical Devices Description No Information Available Encounters Type Date Location Provider Dx Diagnosis Office Visit 04/28/2020 10:45a [place] [facility] Bib Salgado DPM B35.1 Tinea unguium E11.42 Type 2 diabetes mellitus wit h diabetic polyneuropathy E11.621 Type 2 diabetes mellitus wit h foot ulcer L89.892 Pressure ulcer of other site , stage 2 Office Visit 12/23/2019 1:45p [place] [facility] Bib Salgado DPM M79.676 Pain in unspecified toe(s) E11.42 Type 2 diabetes mellitus wit h diabetic polyneuropathy B35.1 Tinea unguium Assessments Date Code Description Provider 04/28/2020 B35.1 Tinea unguium Bib Salgado DPM 04/28/2020 E11.42 Type 2 diabetes mellitus with di abetic polyneuropathy Bib Salgado DPM 04/28/2020 E11.621 Type 2 diabetes mellitus with fo ot ulcer Bib Salgado DPM 04/28/2020 L89.892 Pressure ulcer of other site, st age 2 Bib Salgado DPM 12/23/2019 M79.676 Pain in unspecified toe(s) German Salgado DPM 12/23/2019 E11.42 Type 2 diabetes mellitus with di abetic polyneuropathy Bib Salgado DPM 12/23/2019 B35.1 Tinea unguium Bib Salgado DPM Plan of Treatment Future Appointment(s):* 05/25/2020 1:15 pm - Bib Salgado DPM at [facility] Functional Status Description No Information Available Mental Status Description No Information Available Referrals Description No Information Available
--- OUTSIDE RECORDS SUMMARY | 2020-05-19 11:53 | CCD | Continuity of Care Document ---
Author Author Pete DELGADO M.D. Organization Unknown Address [address] [place] [id number] Phone [phone] Care Team Providers Care Senior Site Manager Name Role Phone Mack Monae M.D. AUTM [phone] Problems Active Problems Provider Date Essential hypertension Onset: 03/29/2015 Atrial fibrillation Onset: 05/25/2013 Palpitations Onset: 04/12/2013 Polymyalgia rheumatica Onset: 01/18/2013 Hyperlipidemia Onset: 01/18/2013 Chronic obstructive lung disease Onset: 01/18/2013 Type 2 diabetes mellitus Onset: 01/19/20 13 Gastroesophageal reflux disease Onset: 1 Benign essential hypertension Onset: Social History Type Date Description Comments Sex Unknown Allergies, Adverse Reactions, Alerts Active Allergies Reaction Severity Comments Date Zithromax 01/11/2020 Fluticasone 01/11/2020 Clarithromycin 01/11/2020 Fluconazole 01/11/2020 Metformin 01/11/2020 Procaine 01/11/2020 Medications Active Medications SIG Qnty Indications Ordering Provide r Date Ropinirole HCL 0.25mg Tablets Take One Tablet By Mouth AT Bedtime 90tabs Mack Monae M.D. 12/24/2019 Tamsulosin HCL 0.4mg Capsules Take One Capsule By Mouth AT Bedtime 90caps Mack Monae M.D . 12/09/2019 Colace 100mg Capsules 1 by mouth twice a day 180caps Mack Monae M.D. 12/08/2019 Megestrol Acetate 625mg/5ML Suspen adrian 5ml by mouth daily 150units R63.4 Mack Monae M.D. 11/12/2019 Paxil 40mg Tablets 1 by mouth every day *(family giving 1/2 tab qd)* 30tabs Dov, Mack, M. D. 10/11/2019 Zofran 4mg Tablets 1 tab by mouth every 6 hours as needed nausea 30Mack Marion M.D. Tramadol HCL 50mg Tablets take one tablet by mouth every 6 hours as needed for pain [id number] 120Mack Marion M.D. 08/31/2019 Prednisone 5mg Tablets Take One Tablet By Mouth Every Day 30Mack Marion M.D. 02/04/[address] Take One Capsule By Mouth Every Day 90Mack Pardo M.D. 03/26/2013 Fenofibrate 160mg Tablets Take One Tablet By Mouth Every Day 90Mack Marion M.D. 013 Finasteride 5mg Tablets Take One Tablet By Mouth Every Day 90Mack Marion M.D. Eliquis 2.5mg Tablets Take One Tablet By Mouth Twice A Day 60Mack Marion M.D. Atenolol 25mg Tablets 1 by mo uth bid Unknown Acetaminophen Extra Strength 500mg Tablets 2 tab by mouth four times a day as needed Unknown Amiodarone HCL 200mg Tablets 1 by mouth every day 30Mack Marion M.D. Diltiazem HCL ER 120mg Caps ER 12H R 1 by mouth every day Unknown Ferrous Sulfate 325mg Tablets 1 by mouth every day Unknown Fish Oil 1000mg Capsules 1 p. o. bid Unknown Prednisone 2.5mg Tablets 1 p. o. qhs Unknown Xopenex HFA 45mcg/Act Aerosol inhale two puffs by mouth every 4 hours as needed Unknown Budesonide/Formoterol Fumarate Dihydrate 160-4.5mcg/Act Aerosol inhale two puffs by mouth twice a day Unknown Immunizations Description No Information Available Vital Signs Date Vital Result Comment 04/20/2020 2:38pm Respiratory Rate 12 /min Height 67 inches 5'7" Weight 145.00 lb BMI (Body Mass Index) 22.7 kg/m2 [place] Body Weight 148 lb 01/11/2020 10:32am Respiratory Rate 12 /min Height 67 inches 5'7" Weight 136.00 lb BMI (Body Mass Index) 21.3 kg/m2 [place] Body Weight 148 lb Results Test Acquired Date Facility Test Result H/L Range Note CBC With Differential/Platelet 12/24/2019 [facility] WBC 14.1 x10E3/uL High 3.4-10.8 RBC 3.59 x10E6/uL Low 4.14-5.80 Hemoglobin 10.4 g/dL Low 13.0-17.7 Hematocrit 31.8 % Low 37.5-51.0 MCV 89 fL 79-97 MCH 29.0 pg 26.6-33.0 MCHC 32.7 g/dL 31.5-35.7 RDW 18.3 % High 11.6-15.4 Platelets 193 x10E3/uL 150-450 Neutrophils 74 % Lymphs 3 % Monocytes 16 % Eos 1 % Basos 1 % Immature Cells Note Neutrophils (Absolute) 10.4 x10E3/uL High 1.4-7.0 Lymphs (Absolute) 0.4 x10E3/uL Low 0.7-3.1 Monocytes(Absolute) 2.3 x10E3/uL High 0.1-0.9 Eos (Absolute) 0.1 x10E3/uL 0.0-0.4 Baso (Absolute) 0.1 x10E3/uL 0.0-0.2 Immature Granulocytes TNP Immature Grans (Abs) TNP NRBC TNP Hematology Comments: Note: 1 Bands TNP Metamyelocytes 1 % High 0-0 Myelocytes 4 % High 0-0 Promyelocytes TNP Blasts/blast like cells TNP Megakaryocytes TNP Other, Lineage Uncertain TNP Lab Results 12/24/2019 N2N/CCD Import Color Urine Yellow Appearance Clear Specific [place] 1.025 1 1.00-1.03 PH Urine 5.0 1 5.0-8.0 Glucose Urine Neg Bilirubin Urine Neg Ketones Neg Blood Urine Neg Protein Urine Neg Urobilinogen .2 EU/dl 0.2-1.0 Nitrite Neg Leukocytes Neg Basic Metabolic Profile 12/07/2019 N2N/CCD Import Glucose, Fasting 126 mg/dL High 70-100 Blood Urea Nitrogen 22 mg/dL High 7-18 Creatinine For GFR 1.03 mg/dL 0.70-1.30 Glomerular Filtration Rate > 60.0 2 Sodium Level 144 mEq/L 136-145 Potassium Serum 3.9 mEq/L 3.5-5.1 Chloride Level 110 mEq/L High 98-107 Carbon Dioxide Level 30 mEq/L 21-32 Anion Gap 4 mEq/L Low 8-16 Calcium Level 8.5 mg/dL Low 8.8-10.2 Lab Results 12/07/2019 N2N/CCD Import Magnesium Level 1.8 mg/dL 1.8-2.4 1 Manual differential was perf ormed. 2 Units are mL/min/1.73 m2 Chronic Kidney Disease Staging per NKF: Stage I & II GFR >=60 Normal to Mildly Decreased Stage III GFR 30-59 Moderately Decreased Stage IV GFR 15-29 Severely Decreased Stage V GFR <15 Very Little GFR Left ESRD GFR <15 on FICTION AND NONFICTION PROSE WRITER Procedures Date Code Description Status 02/23/2020 78625 EEG Recording Awake & Asleep Com pleted 02/23/2020 47537 EEG Recording Awake & Asleep Com pleted Medical Devices Description No Information Available Encounters Type Date Location Provider Dx Diagnosis Office Visit 04/20/2020 2:15p Main office - [place] Thom harden M.D. 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 M21.372 Foot drop, left foot G31.83 Dementia with Lewy bodies Assessments Date Code Description Provider 04/20/2020 R41.82 Altered mental status, unspecifi ed Thom Delgado M.D. 04/20/2020 M21.372 Foot drop, left foot Thom kaur M.D. 04/20/2020 M21.371 Foot drop, right foot Thom reed M.D. 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 02/23/2020 R41.82 Altered mental status, unspecifi ed Yael Germain M.D. 02/23/2020 R41.82 Altered mental status, unspecifi ed EEG 01/11/2020 M21.372 Foot drop, left foot Thom kaur M.D. 01/11/2020 G31.83 Dementia with Lewy bodies Thom Delgado M.D. Plan of Treatment Future Appointment(s):* 07/24/2020 11:45 am - Thom Delgado M.D. at Main office - [place] Functional Status Description No Information Available Mental Status Description No Information Available Referrals Description No Information Available
--- OUTSIDE RECORDS SUMMARY | 2020-05-19 11:53 | CCD | Continuity of Care Document ---
Author Author Pete MONAE M.D. Organization Unknown Address [address] [place], [place] [address] Phone [phone] Care Team Providers Care Mobile Sales Assistant Name Role Phone [facility] [phone] Problems Active Problems Provider Date Polymyalgia rheumatica Mack Monae M.D. Onset: 2012 Hyperlipidemia Mack Monae M.D. Onset: 3 Chronic obstructive lung disease Mack Monae M.D. Ons et: 01/18/2013 Type 2 diabetes mellitus Mack Monae M.D. Onset: 12/30 Gastroesophageal reflux disease Mack Monae M.D. Onse t: 01/18/2013 Benign essential hypertension Mack Monae M.D. Onset: 01/18/2013 Palpitations Mack Monae M.D. Onset: 4 Atrial fibrillation Mack Monae M.D. Onset: 4 Essential hypertension Mack Monae M.D. Onset: 2014 Social History Type Date Description Comments Sex Unknown ETOH Use Consumes 1 beer per day Tobacco Use Start: Unknown End: Unknown Patient is a former smoker Allergies, Adverse Reactions, Alerts Active Allergies Reaction Severity Comments Date Novocain 01/18/2013 Medications Active Medications SIG Qnty Indications Ordering Provide r Date Ropinirole HCL 0.25mg Tablets Take One Tablet By Mouth AT Bedtime 90tabs Mack Monae M. D. 12/24/2019 Tamsulosin HCL 0.4mg Capsules Take One Capsule By Mouth AT Bedtime 90caps Mack Monae M .D. 12/09/2019 Colace 100mg Capsules 1 by mouth twice a day 180caps Mack Monae M.D. 12/08/19 20 Megestrol Acetate 625mg/5ML Suspen adrian 5ml by mouth daily 150ml R63.4 Mack Monae M.D. 11/12/19 20 U07.1 Prednisone 5mg Tablets Take One Tablet By Mouth Every Day 30tabs Mack Monae M.D. 02/05/20 [address] Take One Capsule By Mouth Every Day 90capMack Pandey M. D. 03/26/2013 Gabapentin 100mg Capsules 1 by mouth three times a day Unknown Paroxetine HCL 10mg Tablets 1 by mouth every day Unknown Keppra 500mg Tablets 1 by mouth twice a day Unknown Symbicort 160-4.5mcg/Act Aerosol inhale two puffs by mouth twice a day Unknown 0 Xopenex HFA 45mcg/Act Aerosol inhale two puffs by mouth every 4 hours as needed Unknown Prednisone 2.5mg Tablets 1 p. o. qhs Unknown Ferrous Sulfate 325mg Tablets 1 by mouth every day Unknown Diltiazem HCL ER 120mg Caps ER 12H R 1 by mouth every day Unknown Amiodarone HCL 200mg Tablets 1 by mouth every day 30taMack Davies M.D. Atenolol 25mg Tablets 1 by mo uth bid Unknown Eliquis 2.5mg Tablets Take One Tablet By Mouth Twice A Day 60tabs Mack Monae M.D. Finasteride 5mg Tablets Take One Tablet By Mouth Every Day 90tabs Mack Monae M.D. Immunizations CPT Code Status Date Vaccine Lot # 27563 Given 11/26/2019 Influenza Virus Vaccine, Quadrivalent, Slit Virus, Im Use 3Y & Up [id number] 79955 Given 02/06/2018 Influenza Virus Vaccine, Quadrivalent, Slit Virus, Im Use 3Y & Up [id number] 97952 Given 02/04/2017 Influenza Virus Vaccine, Quadrivalent, Slit Virus, Im Use 3Y & Up [id number] 53203 Given 01/12/2016 Influenza Virus Vaccine, Quadrivalent, Slit Virus, Im Use 3Y & Up [id number] 06133 Given 03/29/2015 Influenza Vaccin e (Fluzone) 3Yrs Of Age Or Older Medicare Plans [id number] 42270 Given 01/18/2013 Influenza Vaccin e (Fluzone) 3Yrs Of Age Or Older Medicare Plans 24147 Given 01/18/2013 Influenza Virus Vac. Split Virus Individuals 3 Years And Above [id number] Vital Signs Date Vital Result Comment 04/25/2020 2:25pm BP Systolic 116 mmHg BP Diastolic 70 mmHg Body Temperature 98.4 F Heart Rate 70 /min Respiratory Rate 14 /min Height 67 inches 5'7" Weight 153.00 lb [place] Body Weight 148 lb BMI (Body Mass Index) 24.0 kg/m2 O2 % BldC Oximetry 94 % 12/24/2019 3:06pm BP Systolic 118 mmHg BP Diastolic 64 mmHg Body Temperature 97.5 F Heart Rate 70 /min Respiratory Rate 12 /min Height 67 inches 5'7" Weight 136.00 lb [place] Body Weight 148 lb BMI (Body Mass Index) 21.3 kg/m2 O2 % BldC Oximetry 94 % Results Test Acquired Date Facility Test Result H/L Range Note Laboratory test finding 04/25/2020 [facility] [place] Magnesium 1.7 mg/dL 1.6-2.3 CBC With Differential/Platelet 04/25/2020 [facility] [place] WBC <pending> RBC <pending> Hemoglobin <pending> Hematocrit <pending> MCV <pending> MCH <pending> MCHC <pending> RDW <pending> Platelets <pending> Neutrophils <pending> Lymphs <pending> Monocytes <pending> Eos <pending> Basos <pending> Immature Cells <pending> Neutrophils (Absolute) <pending> Lymphs (Absolute) <pending> Monocytes(Absolute) <pending> Eos (Absolute) <pending> Baso (Absolute) <pending> Immature Granulocytes <pending> Immature Grans (Abs) <pending> NRBC <pending> Hematology Comments: <pending> Metabolic Panel (14), Comprehensive 04/25/2020 [facility] [place] Glucose 193 mg/dL High 65-99 BUN 17 mg/dL 8-27 Creatinine 0.86 mg/dL 0.76-1.27 eGFR If NonAfricn Am 79 mL/min/1.73 >59 eGFR If Africn Am 91 mL/min/1.73 >59 BUN/Creatinine Ratio 20 10-24 Sodium 144 mmol/L 134-144 Potassium 4.2 mmol/L 3.5-5.2 Chloride 102 mmol/L 96-106 Carbon Dioxide, Total 30 mmol/L High 20-29 Calcium 8.3 mg/dL Low 8.6-10.2 Protein, Total 5.2 g/dL Low 6.0-8.5 Albumin 3.4 g/dL Low 3.6-4.6 Globulin, Total 1.8 g/dL 1.5-4.5 A/G Ratio 1.9 1.2-2.2 Bilirubin, Total 0.3 mg/dL 0.0-1.2 Alkaline Phosphatase 76 IU/L 39-117 Ast (Sgot) 15 IU/L 0-40 Alt (SGPT) 14 IU/L 0-44 Laboratory test finding 04/25/2020 [facility] [place] TSH 1.270 uIU/mL 0.450-4.500 Laboratory test finding 01/17/2020 [facility] (Interface) [phone] Platelet Estimate NORMAL Normal Normal Differential 01/17/2020 [facility] (I nterface) [phone] Neutrophils 83 % High 28-66 Bands 1 % Normal < 11 Lymphocytes 5 % Low 16-44 Monocytes 7 % High 0-5 Myelocytes 3 % High 0-0 Atypical Lymph 1 % Normal 0-5 Anisocytosis 2+ Normal CBC With Differential 01/17/2020 [facility] (Interface) [phone] White Blood Count 13.4 10 High 4.0-10.0 Red Blood Count 3.51 10 Low 4.30-6.10 Hemoglobin 9.9 g/dL Low 13.5-17.5 Hematocrit 31.4 % Low 42.0-52.0 Mean Corpuscular Volume 89.5 fl Normal 80.0-96.0 Mean Corpuscular Hemoglobin 28.2 pg Normal 27.0-33.0 Mean Corpuscular HGB Conc 31.5 g/dL Low 32.0-36.5 Red Cell Distribution Width 19.2 % High 11.5-14.5 Platelet Count, Automated 201 10 Normal 150-450 Nucleated Red Blood Cell % 0.0 % Normal 0-0 Laboratory test finding 01/17/2020 [facility] (Interface) [phone] Osmolality Serum 292 MOSM/KG Normal 280-301 Thyroid Stimulating Hormone 0.928 uIU/ML Normal 0.358-3.740 Basic Metabolic Profile 01/17/2020 [facility] (Interface) [phone] Glucose, Fasting 114 mg/dL High 70-100 Blood Urea Nitrogen 18 mg/dL Normal 7-18 Creatinine For GFR 1.00 mg/dL Normal 0.70-1.30 Glomerular Filtration Rate > 60.0 Normal >35 1 Sodium Level 142 mEq/L Normal 136-145 Potassium Serum 4.3 mEq/L Normal 3.5-5.1 Chloride Level 107 mEq/L Normal 98-107 Carbon Dioxide Level 31 mEq/L Normal 21-32 Anion Gap 4 mEq/L Low 8-16 Calcium Level 8.7 mg/dL Low 8.8-10.2 Liver Profile 01/17/2020 [facility] (I nterface) [phone] Ast/Sgot 14 U/L Normal 7-37 Alt/SGPT 17 U/L Normal 12-78 Alkaline Phosphatase 70 U/L Normal 45-117 Bilirubin,Total 0.6 mg/dL Normal 0.2-1.0 Bilirubin,Direct 0.2 mg/dL Normal 0.0-0.2 Total Protein 5.4 GM/DL Low 6.4-8.2 Albumin 2.5 GM/DL Low 3.2-5.2 Albumin/Globulin Ratio 0.9 Normal Cardiac Marker Panel 01/17/2020 [facility] ( [facility]) [phone] CPK Creatine Phosphokinase 24 U/L Low 39-30 8 CK-MB Value Mass 1.5 NG/ML Normal <3.6 MB/CK Relative Index 6.25 High < Or =4 2 Troponin I < 0.02 NG/ML Normal < 0.10 3 Laboratory test finding 01/17/2020 [facility] (Interface) [phone] Lactic Acid Sepsis Protocol 0.9 mmol/L Normal 0.4- 2.0 4 Ua W/ Reflex To Culture 01/17/2020 [facility] (Interface) [phone] Appearance, Urine RFX CLEAR Normal Clear Color, Urine RFX YELLOW Normal Yellow PH,Urine RFX 6.0 units Normal 5.0-9.0 Specific [place] Ur Auto RFX 1.015 Normal 1.002-1.035 Protein, Urine Auto RFX NEGATIVE mg/dL Normal Negative Glucose, Urine (Ua) Auto RFX NEGATIVE mg/dL Normal Negative Ketone, Urine Auto RFX NEGATIVE mg/dL Normal Negative Urobilinogen, Urine Auto RFX 0.2 mg/dL Normal 0.0-2.0 Bilirubin, Urine Auto RFX NEGATIVE Normal Negative Nitrite, Urine Auto RFX NEGATIVE Normal Negative Leukocyte Esterase Ur Auto RFX NEGATIVE Normal Negative Blood, Urine Blood RFX NEGATIVE Normal Negative WBC, Urine Auto RFX 3 /HPF Normal 0-3 RBC, Urine Auto RFX 0 /HPF Normal 0-3 Bacteria, Urine Auto RFX NEGATIVE Normal Negative Squam Epithelial Cell Ur Aurfx 0 /HPF Normal 0-6 Hyaline Cast, Urine Auto RFX 0 /LPF Normal 0-1 CBC With Differential/Platelet 12/24/2019 [facility] E WBC 14.1 x10E3/uL High 3.4-10.8 RBC 3.59 x10E6/uL Low 4.14-5.80 Hemoglobin 10.4 g/dL Low 13.0-17.7 Hematocrit 31.8 % Low 37.5-51.0 MCV 89 fL 79-97 MCH 29.0 pg 26.6-33.0 MCHC 32.7 g/dL 31.5-35.7 RDW 18.3 % High 11.6-15.4 Platelets 193 x10E3/uL 150-450 Neutrophils 74 % Not Estab. Lymphs 3 % Not Estab. Monocytes 16 % Not Estab. Eos 1 % Not Estab. Basos 1 % Not Estab. Immature Cells Note Neutrophils (Absolute) 10.4 x10E3/uL High 1.4-7.0 Lymphs (Absolute) 0.4 x10E3/uL Low 0.7-3.1 Monocytes(Absolute) 2.3 x10E3/uL High 0.1-0.9 Eos (Absolute) 0.1 x10E3/uL 0.0-0.4 Baso (Absolute) 0.1 x10E3/uL 0.0-0.2 Immature Granulocytes TNP Immature Grans (Abs) TNP NRBC TNP Hematology Comments: Note: 5 Bands TNP Metamyelocytes 1 % High 0 - 0 Myelocytes 4 % High 0 - 0 Promyelocytes TNP Blasts/blast like cells TNP Megakaryocytes TNP Other, Lineage Uncertain TNP U/A DIP FPA 12/24/2019 [facility] Asso ciates Color Urine YELLOW Yellow Appearance CLEAR Clear Specific [place] 1.025 1.00-1.03 PH Urine 5.0 5.0-8.0 Glucose Urine NEG Negative Bilirubin Urine NEG Negative Ketones NEG Negative Blood Urine NEG Negative Protein Urine NEG Negative Urobilinogen .2 EU/dl 0.2-1.0 Nitrite NEG Negative Leukocytes NEG Negative Basic Metabolic Profile 12/07/2019 [facility] (Interface) [phone] Glucose, Fasting 126 mg/dL High 70-100 Blood Urea Nitrogen 22 mg/dL High 7-18 Creatinine For GFR 1.03 mg/dL Normal 0.70-1.30 Glomerular Filtration Rate > 60.0 Normal >35 6 Sodium Level 144 mEq/L Normal 136-145 Potassium Serum 3.9 mEq/L Normal 3.5-5.1 Chloride Level 110 mEq/L High 98-107 Carbon Dioxide Level 30 mEq/L Normal 21-32 Anion Gap 4 mEq/L Low 8-16 Calcium Level 8.5 mg/dL Low 8.8-10.2 Laboratory test finding 12/07/2019 [facility] (Interface) [phone] Magnesium Level 1.8 mg/dL Normal 1.8-2.4 Laboratory test finding 11/12/2019 [facility] TSH 1.239 ulU/mL 0.60 - 4.8 Laboratory test finding 11/12/2019 [facility] [place] Ammonia, Plasma 78 g/dL 28-135 7 Laboratory test finding 11/12/2019 [facility] [place] Vitamin B12 412 pg/mL 232-1245 8 CBC With Differential/Platelet 11/12/2019 [facility] E WBC 12.7 x10E3/uL High 3.4-10.8 RBC 3.51 x10E6/uL Low 4.14-5.80 9 Hemoglobin 9.9 g/dL Low 13.0-17.7 Hematocrit 30.5 % Low 37.5-51.0 MCV 87 fL 79-97 MCH 28.2 pg 26.6-33.0 MCHC 32.5 g/dL 31.5-35.7 RDW 17.7 % High 11.6-15.4 Platelets 267 x10E3/uL 150-450 Neutrophils 80 % Not Estab. Lymphs 7 % Not Estab. Monocytes 8 % Not Estab. Eos 0 % Not Estab. Basos 2 % Not Estab. Immature Cells Note Neutrophils (Absolute) 10.2 x10E3/uL High 1.4-7.0 Lymphs (Absolute) 0.9 x10E3/uL 0.7-3.1 Monocytes(Absolute) 1.0 x10E3/uL High 0.1-0.9 Eos (Absolute) 0.0 x10E3/uL 0.0-0.4 Baso (Absolute) 0.3 x10E3/uL High 0.0-0.2 Immature Granulocytes TNP Immature Grans (Abs) TNP NRBC TNP Hematology Comments: Note: 10 Bands TNP Metamyelocytes 3 % High 0 - 0 Myelocytes TNP Promyelocytes TNP Blasts/blast like cells TNP Megakaryocytes TNP Other, Lineage Uncertain TNP Metabolic Panel (14), Comprehensive 11/12/2019 [facility] [place] Glucose 158 mg/dL High 65-99 BUN 21 mg/dL 8-27 Creatinine 1.26 mg/dL 0.76-1.27 eGFR If NonAfricn Am 52 mL/min/1.73 Low >59 eGFR If Africn Am 60 mL/min/1.73 >59 BUN/Creatinine Ratio 17 10-24 Sodium 144 mmol/L 134-144 Potassium 4.2 mmol/L 3.5-5.2 Chloride 105 mmol/L 96-106 Carbon Dioxide, Total 28 mmol/L 20-29 Calcium 8.6 mg/dL 8.6-10.2 Protein, Total 5.4 g/dL Low 6.0-8.5 Albumin 3.6 g/dL 3.6-4.6 Globulin, Total 1.8 g/dL 1.5-4.5 A/G Ratio 2.0 1.2-2.2 Bilirubin, Total 0.3 mg/dL 0.0-1.2 Alkaline Phosphatase 45 IU/L 39-117 Ast (Sgot) 19 IU/L 0-40 Alt (SGPT) 16 IU/L 0-44 Laboratory test finding 11/12/2019 [facility] [place] No Urine Received TNP 11 1 Units are mL/min/1.73 m2 Chronic Kidney Disease Staging per NKF: Stage I & II GFR >=60 Normal to Mildly Decreased Stage III GFR 30-59 Moderately Decreased Stage IV GFR 15-29 Severely Decreased Stage V GFR <15 Very Little GFR Left ESRD GFR <15 on FRUIT INSPECTOR 2 DIAGNOSIS CRITERIA MMB ng/ml Relative Index (RI) NON-AMI < or = 5 N/A CHANEY ZONE > 5 < or = 4 AMI > 5 > 4 3 Troponin I Reference Interva l for Siemens [place] LOCI: 99th Percentile= 0.00-0.045 ng/ml Risk Stratification: <= 0.10 ng/ml Decreased Risk for Adverse Clinical Events. 0.10-1.50 ng/ml Increased Risk for Adv erse Clinical Events. Evaluation of additional criterion and/or repeat testing in 2-6 hours is suggested to rule out myocardial damage. >= 1.50 ng/ml Indicative of Myocardial Injury. 4 Y/N query for Sepsis Lactate Rule: Y 5 Manual differential was perf ormed. 6 Units are mL/min/1.73 m2 Chronic Kidney Disease Staging per NKF: Stage I & II GFR >=60 Normal to Mildly Decreased Stage III GFR 30-59 Moderately Decreased Stage IV GFR 15-29 Severely Decreased Stage V GFR <15 Very Little GFR Left ESRD GFR <15 on FRUIT INSPECTOR 7 Please note reference inte rval change 8 Test(s) [id number] Acid, U was developed and its performance characteristics determined by [facility]. It has not been cleared or approved by the Food and Drug Administration. 9 Polychromasia present Elliptocytes present. Marked anisocytosis. 10 Manual differential was perf ormed. 11 No urine specimen received. TEST: [id number] Methylmalonic Acid, Urine Procedures Description No Information Available Medical Devices Description No Information Available Encounters Type Date Location Provider Dx Diagnosis Office Visit 04/25/2020 2:30p [place] [facility] Mack Monae M. D. 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 D. 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 D. R63.4 Abnormal weight loss D64.9 Anemia, unspecified I50.9 Heart failure, unspecified Z23 Encounter for immunization Office Visit 11/12/2019 3:20p [place] [facility] Mack Monae M. D. 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 D. R55 Syncope and collapse Assessments Date Code Description Provider 04/25/2020 R63.4 Abnormal weight loss Martínez Monae M.D. 04/25/2020 D64.9 Anemia, unspecified Anshu Monae M.D. 04/25/2020 I50.9 Heart failure, unspecified Mack Cheatham M.D. 04/25/2020 F29 Unspecified psychosi s not due to a substance or known physiological condition Mack Monae M.D. 12/24/2019 R63.4 Abnormal weight loss Martínez Monae M.D. 12/24/2019 D64.9 Anemia, unspecified Anshu Monae M.D. 12/24/2019 I50.9 Heart failure, unspecified Mack Cheatham M.D. 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 12/24/2019 R35.0 Frequency of micturition Mack Camargo M.D. 11/26/2019 R63.4 Abnormal weight loss Martínez Monae M.D. 11/26/2019 D64.9 Anemia, unspecified Anshu Monae M.D. 11/26/2019 I50.9 Heart failure, unspecified Mack Cheatham M.D. 11/26/2019 Z23 Encounter for immunization Mack Cheatham M.D. 11/12/2019 R55 Syncope and collapse Martínez Monae M.D. 11/12/2019 U07.1 Covid-19 Mack Monae M.D. 11/12/2019 R63.4 Abnormal weight loss Martínez Monae M.D. 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 11/12/2019 D64.9 Anemia, unspecified Anshu Monae M.D. 2019 R55 Syncope and collapse Martínez Monae M.D. Plan of Treatment No Information Available Functional Status Description No Information Available Mental Status Description No Information Available Referrals Refer to Reason for Referral Status Appt Date Radha Garcia hallucinations, adventitial movements wh ile sleeping- eval and rx Sent 01/11/2020 [facility] [address] [address] [phone]
--- OUTSIDE RECORDS SUMMARY | 2020-05-19 11:53 | CCD | Continuity of Care Document ---
Author Author Pete MONAE M.D. Organization Unknown Address [address] [place], [place] [address] Phone [phone] Care Team Providers Care Eap Specialist Name Role Phone [facility] [phone] Problems Active Problems Provider Date Polymyalgia rheumatica [...] CPT Code Status Date Vaccine Lot # 72202 Given 11/26/2019 Influenza Virus Vaccine, Quadrivalent, Slit Virus, Im Use 3Y & Up [id number] 13748 Given 02/06/2018 Influenza Virus Vaccine, Quadrivalent, Slit Virus, Im Use 3Y & Up [id number] 32268 Given 02/04/2017 Influenza Virus Vaccine, Quadrivalent, Slit Virus, Im Use 3Y & Up [id number] 35854 Given 01/12/2016 Influenza Virus Vaccine, Quadrivalent, Slit Virus, Im Use 3Y & Up [id number] 93060 Given 03/29/2015 Influenza Vaccin e (Fluzone) 3Yrs Of Age Or Older Medicare Plans [id number] 24348 Given 01/18/2013 Influenza Vaccin e (Fluzone) 3Yrs Of Age Or Older Medicare Plans 49401 Given 01/18/2013 Influenza Virus Vac. Split Virus Individuals 3 Years And Above [id number] Vital Signs Date Vital Result Comment 04/25/2020 2:25pm BP Systolic 116 mmHg BP Diastolic 70 mmHg Body Temperature 98.4 F Heart Rate 70 /min Respiratory Rate 14 /min Height 67 inches 5'7" Weight 153.00 lb [place] Body Weight 148 lb BMI (Body Mass Index) 24.0 kg/m2 O2 % BldC Oximetry 94 % 12/24/2019 3:06pm BP Systolic 118 mmHg BP Diastolic 64 mmHg Body Temperature 97.5 F Heart Rate 70 /min Respiratory Rate 12 /min Height 67 inches 5'7" Weight 136.00 lb [place] Body Weight 148 lb BMI (Body Mass Index) 21.3 kg/m2 O2 % BldC Oximetry 94 % Results Test Acquired Date Facility Test Result H/L Range Note Laboratory test finding 04/25/2020 [facility] [place] Magnesium 1.7 mg/dL 1.6-2.3 CBC With Differential/Platelet 04/25/2020 [facility] [place] E WBC 12.3 x10E3/uL High 3.4-10.8 RBC 4.03 x10E6/uL Low 4.14-5.80 1 Hemoglobin 11.8 g/dL Low 13.0-17.7 Hematocrit 36.0 % Low 37.5-51.0 MCV 89 fL 79-97 MCH 29.3 pg 26.6-33.0 MCHC 32.8 g/dL 31.5-35.7 RDW 18.2 % High 11.6-15.4 Platelets 182 x10E3/uL 150-450 Neutrophils 72 % Not Estab. Lymphs 6 % Not Estab. Monocytes 14 % Not Estab. Eos 0 % Not Estab. Basos 2 % Not Estab. Immature Cells Note Neutrophils (Absolute) 8.9 x10E3/uL High 1.4-7.0 Lymphs (Absolute) 0.7 x10E3/uL 0.7-3.1 Monocytes(Absolute) 1.7 x10E3/uL High 0.1-0.9 Eos (Absolute) 0.0 x10E3/uL 0.0-0.4 Baso (Absolute) 0.2 x10E3/uL 0.0-0.2 Immature Granulocytes TNP Immature Grans (Abs) TNP NRBC TNP Hematology Comments: Note: 2 Bands TNP Metamyelocytes 1 % High 0 - 0 Myelocytes 5 % High 0 - 0 Promyelocytes TNP Blasts/blast like cells TNP Megakaryocytes TNP Other, Lineage Uncertain TNP Metabolic Panel (14), Comprehensive 04/25/2020 [facility] [...] 1.270 uIU/mL 0.450-4.500 Laboratory test finding 01/17/2020 [facility] (Interface) [phone] Platelet Estimate NORMAL Normal Normal Differential 01/17/2020 [facility] (I nterface) [phone] Neutrophils 83 % High 28-66 Bands 1 % Normal < 11 Lymphocytes 5 % Low 16-44 Monocytes 7 % High 0-5 Myelocytes 3 % High 0-0 Atypical Lymph 1 % Normal 0-5 Anisocytosis 2+ Normal CBC With Differential 01/17/2020 [facility] (Interface) [phone] White Blood Count 13.4 10 High 4.0-10.0 [...] % Normal 0-0 Laboratory test finding 01/17/2020 [facility] (Interface) [phone] Osmolality Serum 292 MOSM/KG Normal 280-301 Thyroid Stimulating Hormone 0.928 uIU/ML Normal 0.358-3.740 Basic Metabolic Profile 01/17/2020 [facility] (Interface) [phone] Glucose, Fasting 114 mg/dL High 70-100 Blood Urea Nitrogen 18 mg/dL Normal 7-18 Creatinine For GFR 1.00 mg/dL Normal 0.70-1.30 Glomerular Filtration Rate > 60.0 Normal >35 3 Sodium Level 142 mEq/L Normal 136-145 Potassium Serum 4.3 mEq/L Normal 3.5-5.1 Chloride Level 107 mEq/L Normal 98-107 Carbon Dioxide Level 31 mEq/L Normal 21-32 Anion Gap 4 mEq/L Low 8-16 Calcium Level 8.7 mg/dL Low 8.8-10.2 Liver Profile 01/17/2020 [facility] (I nterface) [phone] Ast/Sgot 14 U/L Normal 7-37 Alt/SGPT 17 U/L Normal 12-78 Alkaline Phosphatase 70 U/L Normal 45-117 Bilirubin,Total 0.6 mg/dL Normal 0.2-1.0 Bilirubin,Direct 0.2 mg/dL Normal 0.0-0.2 Total Protein 5.4 GM/DL Low 6.4-8.2 Albumin 2.5 GM/DL Low 3.2-5.2 Albumin/Globulin Ratio 0.9 Normal Cardiac Marker Panel 01/17/2020 [facility]) [phone] CPK Creatine Phosphokinase 24 U/L Low 39-30 8 CK-MB Value Mass 1.5 NG/ML Normal <3.6 MB/CK Relative Index 6.25 High < Or =4 4 Troponin I < 0.02 NG/ML Normal < 0.10 5 Laboratory test finding 01/17/2020 [facility] ([facility]) [phone] Lactic Acid Sepsis Protocol 0.9 mmol/L Normal 0.4- 2.0 6 Ua W/ Reflex To Culture 01/17/2020 [facility]) [phone] Appearance, Urine RFX CLEAR Normal Clear Color, Urine RFX YELLOW Normal Yellow PH,Urine RFX 6.0 units Normal 5.0-9.0 Specific [place] Ur Auto RFX 1.015 Normal 1.002-1.035 Protein, [...] (Abs) TNP NRBC TNP Hematology Comments: Note: 7 Bands TNP Metamyelocytes 1 % High 0 - 0 Myelocytes 4 % High 0 - 0 Promyelocytes TNP Blasts/blast like cells TNP Megakaryocytes TNP Other, Lineage Uncertain TNP U/A DIP FPA 12/24/2019 [facility] Practice Asso ciates Color Urine YELLOW Yellow Appearance CLEAR Clear Specific [place] 1.025 1.00-1.03 PH Urine 5.0 5.0-8.0 Glucose Urine NEG Negative Bilirubin Urine NEG Negative Ketones NEG Negative Blood Urine NEG Negative Protein Urine NEG Negative Urobilinogen .2 EU/dl 0.2-1.0 Nitrite NEG Negative Leukocytes NEG Negative Basic Metabolic Profile 12/07/2019 [facility] (Interface) [phone] Glucose, Fasting 126 mg/dL High 70-100 Blood Urea Nitrogen 22 mg/dL High 7-18 Creatinine For GFR 1.03 mg/dL Normal 0.70-1.30 Glomerular Filtration Rate > 60.0 Normal >35 8 Sodium Level 144 mEq/L Normal 136-145 Potassium Serum 3.9 mEq/L Normal 3.5-5.1 Chloride Level 110 mEq/L High 98-107 Carbon Dioxide Level 30 mEq/L Normal 21-32 Anion Gap 4 mEq/L Low 8-16 Calcium Level 8.5 mg/dL Low 8.8-10.2 Laboratory test finding 12/07/2019 [facility] (Interface) [phone] Magnesium Level 1.8 mg/dL Normal 1.8-2.4 Laboratory test finding 11/12/2019 [facility]house TSH 1.239 ulU/mL 0.60 - 4.8 Laboratory test finding 11/12/2019 [facility] [place] Ammonia, Plasma 78 g/dL 28-135 9 Laboratory test finding 11/12/2019 [facility] [place] Vitamin B12 412 pg/mL 232-1245 10 CBC With Differential/Platelet 11/12/2019 [facility] E WBC 12.7 x10E3/uL High 3.4-10.8 RBC 3.51 x10E6/uL Low 4.14-5.80 11 Hemoglobin 9.9 g/dL Low 13.0-17.7 Hematocrit 30.5 [...] (Abs) TNP NRBC TNP Hematology Comments: Note: 12 Bands TNP Metamyelocytes 3 % High 0 [...] 11/12/2019 [facility] [place] No Urine Received TNP 13 1 Few schistocytes. 2 Manual differential was perf ormed. 3 Units are mL/min/1.73 m2 Chronic Kidney Disease Staging per NKF: Stage I & II GFR >=60 Normal to Mildly Decreased Stage III GFR 30-59 Moderately Decreased Stage IV GFR 15-29 Severely Decreased Stage V GFR <15 Very Little GFR Left ESRD GFR <15 on METER AND REGULATOR SHOP SUPERVISOR 4 DIAGNOSIS CRITERIA MMB ng/ml Relative Index (RI) NON-AMI < or = 5 N/A CHANEY ZONE > 5 < or = 4 AMI > 5 > 4 5 Troponin I Reference Interva l for Siemens [place] LOCI: 99th Percentile= 0.00-0.045 ng/ml Risk Stratification: <= 0.10 ng/ml Decreased Risk for Adverse Clinical Events. 0.10-1.50 ng/ml Increased Risk for Adv erse Clinical Events. Evaluation of additional criterion and/or repeat testing in 2-6 hours is suggested to rule out myocardial damage. >= 1.50 ng/ml Indicative of Myocardial Injury. 6 Y/N query for Sepsis Lactate Rule: Y 7 Manual differential was perf ormed. 8 Units are mL/min/1.73 m2 Chronic Kidney Disease Staging per NKF: Stage I & II GFR >=60 Normal to Mildly Decreased Stage III GFR 30-59 Moderately Decreased Stage IV GFR 15-29 Severely Decreased Stage V GFR <15 Very Little GFR Left ESRD GFR <15 on METER AND REGULATOR SHOP SUPERVISOR 9 Please note reference inte rval change 10 Test(s) 924039-Muliglxbmfass Acid, U was developed and its performance characteristics determined by [facility]. It has not been cleared or approved by the Food and Drug Administration. 11 Polychromasia present Elliptocytes present. Marked anisocytosis. 12 Manual differential was perf ormed. 13 No urine specimen received. TEST: [id number] Methylmalonic Acid, Urine Procedures Description No Information Available Medical Devices Description No Information Available Encounters Type Date Location Provider Dx Diagnosis Office Visit 04/25/2020 2:30p [place] Mack Monae M. D. 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 D. 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 D. R63.4 Abnormal weight loss D64.9 Anemia, unspecified I50.9 Heart failure, unspecified Z23 Encounter for immunization Office Visit 11/12/2019 3:20p [facility] Mack Monae M. D. 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 D. R55 Syncope and collapse Assessments Date Code Description Provider 04/25/2020 R63.4 Abnormal weight loss Martínez Monae M.D. 04/25/2020 D64.9 Anemia, unspecified Anshu Monae M.D. 04/25/2020 I50.9 Heart failure, unspecified Mike Mack ferrara M.D. 04/25/2020 F29 Unspecified psychosi s not [...] condition Mack Monae M.D. 11/12/2019 D64.9 Anemia, kikeified Anshu Monae M.D. 2019 R55 Syncope and collapse Martínez Monae M.D. Plan of Treatment No Information Available Functional Status Description No Information Available Mental Status Description No Information Available Referrals Refer to Reason for Referral Status Appt Date Radha Garcia hallucinations, adventitial movements wh ile sleeping- eval and rx Sent 01/11/2020 [facility] [address] [address] [phone]
--- OUTSIDE RECORDS SUMMARY | 2020-05-19 11:53 | CCD | Continuity of Care Document ---
Author Author Pete SALGADO DPM Organization Unknown Address [address] [place] [address], [facility] [address] [place] [address] Phone [phone] Care Team Providers Care Milling Machine Operator Gear Name Role Phone Justen Wagoner M.D. AUTM [phone] Mack Monae M.D. AUTRamirez [phone] Problems Active Problems Provider Date Type 2 diabetes mellitus with diabetic polyneuropathy Bib Salgado DPM Onset: 11/19/2018 Onychomycosis Bib Salgado DPM Onset: 11/19/2018 Social History Type Date Description Comments Sex [...] Mouth Every Day Unknown Azithromycin 250mg Tablets Dov Syed,Mack Cefdinir 300mg Capsules ADELSO Stark Jane Levalbuterol [...] Available Procedures Date Code Description Status 04/28/2020 46787 Debridement Skin/Tissue Complete d 12/23/2019 91384 Debridement 6-10 Nails Electric Completed Medical Devices Description No Information Available Encounters Type Date Location Provider Dx Diagnosis Office Visit 04/28/2020 10:45a [place] [facility] Bib Salgado, MEHNAZ B35.1 Tinea unguium E11.42 Type 2 diabetes mellitus wit h diabetic polyneuropathy E11.621 Type 2 diabetes mellitus wit h foot ulcer L89.892 Pressure ulcer of other site , stage 2 Office Visit 12/23/2019 1:45p [facility] Bib Salgado DPM M79.676 Pain in [...] Salgado DPM Plan of Treatment Future Appointment(s):* 05/11/2020 1:15 pm - Bib Salgado DPM at [facility] Functional Status Description No Information Available Mental Status Description No Information Available Referrals Description No Information Available
--- OUTSIDE RECORDS SUMMARY | 2020-05-19 11:53 | CCD ---
Continuity of Care Document (CCD) Created on: 05/08/2020 Pete Javed External Reference #: [id number] : 1935 Sex: Male Author Author Pete OMNAE M.D. Organization Unknown Address [address] [place], [place] [address] Phone [phone] Care Team Providers Care Rag Baler Name Role Phone [facility] Problems Active Problems Provider Date Polymyalgia rheumatica [...] SIG Qnty Indications Ordering Provide r Date Hydrochlorothiazide 12.5mg Capsule s 1 by mouth every day 90Mack Pardo M.D. 04/27/19 Ropinirole HCL 0.25mg Tablets Take One Tablet By Mouth AT Bedtime 90tabs Mack Monae M. D. 12/24/2019 Tamsulosin HCL 0.4mg Capsules Take One Capsule By Mouth AT Bedtime 90capMack Pandey M .D. 12/09/2019 Colace 100mg Capsules 1 by mouth twice a day 180Mack Pardo M.D. 12/08/19 20 Megestrol Acetate 625mg/5ML Suspen adrian 5ml by mouth daily 150ml R63.4 Mack Monae M.D. 11/12/19 20 U07.1 Prednisone 5mg Tablets Take One Tablet By Mouth Every Day 30taMack Davies M.D. 02/05/20 [address] Take One Capsule By Mouth Every Day 90Mack Pardo M. D. 03/26/2013 Gabapentin 100mg Capsules 1 [...] One Tablet By Mouth Twice A Day 60taMack Davies M.D. Finasteride 5mg Tablets Take One Tablet By Mouth Every Day 90Mack Marion M.D. 00 Immunizations CPT Code Status Date Vaccine Lot # 37308 Given 11/26/2019 Influenza Virus Vaccine, Quadrivalent, Slit Virus, Im Use 3Y & Up [id number] 53204 Given 02/06/2018 Influenza Virus Vaccine, Quadrivalent, Slit Virus, Im Use 3Y & Up [id number] 09306 Given 02/04/2017 Influenza Virus Vaccine, Quadrivalent, Slit Virus, Im Use 3Y & Up [id number] 35514 Given 01/12/2016 Influenza Virus Vaccine, Quadrivalent, Slit Virus, Im Use 3Y & Up [id number] 55996 Given 03/29/2015 Influenza Vaccin e (Fluzone) 3Yrs Of Age Or Older Medicare Plans [id number] 50582 Given 01/18/2013 Influenza Vaccin e (Fluzone) 3Yrs Of Age Or Older Medicare Plans 05322 Given 01/18/2013 Influenza Virus Vac. Split Virus Individuals 3 Years And Above [id number] Vital Signs Date Vital Result Comment 04/25/2020 2:25pm BP Systolic 116 mmHg BP Diastolic 70 mmHg Body Temperature 98.4 F Heart Rate 70 /min Respiratory Rate 14 /min Height 67 inches 5'7" Weight 153.00 lb [place] Body Weight 148 lb BMI (Body Mass Index) 24.0 kg/m2 O2 % BldC Oximetry 94 % 12/24/2019 3:06pm BP Systolic 118 mmHg BP Diastolic 64 mmHg Body Temperature 97.5 F Heart Rate 70 /min Respiratory Rate 12 /min Height 67 inches 5'7" Weight 136.00 lb [place] Body Weight 148 lb BMI (Body Mass Index) 21.3 kg/m2 O2 % BldC Oximetry 94 % Results Test Acquired Date Facility Test Result H/L Range Note CBC With Differential/Platelet 05/05/2020 [facility] E WBC 12.6 x10E3/uL High 3.4-10.8 1 RBC 4.00 x10E6/uL Low 4.14-5.80 Hemoglobin 11.5 g/dL Low 13.0-17.7 Hematocrit 35.9 % Low 37.5-51.0 MCV 90 fL 79-97 MCH 28.8 pg 26.6-33.0 MCHC 32.0 g/dL 31.5-35.7 RDW 18.1 % High 11.6-15.4 Platelets 179 x10E3/uL 150-450 2 Neutrophils 68 % Not Estab. Lymphs 8 % Not Estab. Monocytes 14 % Not Estab. Eos 0 % Not Estab. Basos 1 % Not Estab. Immature Cells Note Neutrophils (Absolute) 8.6 x10E3/uL High 1.4-7.0 Lymphs (Absolute) 1.0 x10E3/uL 0.7-3.1 Monocytes(Absolute) 1.8 x10E3/uL High 0.1-0.9 Eos (Absolute) 0.0 x10E3/uL 0.0-0.4 Baso (Absolute) 0.1 x10E3/uL 0.0-0.2 Immature Granulocytes TNP Immature Grans (Abs) TNP NRBC TNP Hematology Comments: Note: 3 Bands TNP Metamyelocytes 4 % High 0 - 0 Myelocytes 5 % High 0 - 0 Promyelocytes TNP Blasts/blast like cells TNP Megakaryocytes TNP Other, Lineage Uncertain TNP Laboratory test finding 04/25/2020 [facility] [place] Magnesium 1.7 mg/dL 1.6-2.3 CBC With Differential/Platelet 04/25/2020 [facility] N E WBC 12.3 x10E3/uL High 3.4-10.8 RBC 4.03 x10E6/uL Low 4.14-5.80 4 Hemoglobin 11.8 g/dL Low 13.0-17.7 Hematocrit 36.0 [...] 1.270 uIU/mL 0.450-4.500 Laboratory test finding 01/17/2020 [facility] (Interface) [phone] Platelet Estimate NORMAL Normal Normal Differential 01/17/2020 [facility] (I nterface) [phone] Neutrophils 83 % High 28-66 Bands 1 % Normal < 11 Lymphocytes 5 % Low 16-44 Monocytes 7 % High 0-5 Myelocytes 3 % High 0-0 Atypical Lymph 1 % Normal 0-5 Anisocytosis 2+ Normal CBC With Differential 01/17/2020 [facility] (Interface) [phone] White Blood Count 13.4 10 High 4.0-10.0 [...] % Normal 0-0 Laboratory test finding 01/17/2020 [facility] (Interface) [phone] Osmolality Serum 292 MOSM/KG Normal 280-301 Thyroid Stimulating Hormone 0.928 uIU/ML Normal 0.358-3.740 Basic Metabolic Profile 01/17/2020 [facility] (Interface) [phone] Glucose, Fasting 114 mg/dL High 70-100 Blood Urea Nitrogen 18 mg/dL Normal 7-18 Creatinine For GFR 1.00 mg/dL Normal 0.70-1.30 Glomerular Filtration Rate > 60.0 Normal >35 6 Sodium Level 142 mEq/L Normal 136-145 Potassium Serum 4.3 mEq/L Normal 3.5-5.1 Chloride Level 107 mEq/L Normal 98-107 Carbon Dioxide Level 31 mEq/L Normal 21-32 Anion Gap 4 mEq/L Low 8-16 Calcium Level 8.7 mg/dL Low 8.8-10.2 Liver Profile 01/17/2020 [facility] (I nterface) [phone] Ast/Sgot 14 U/L Normal 7-37 Alt/SGPT 17 U/L Normal 12-78 Alkaline Phosphatase 70 U/L Normal 45-117 Bilirubin,Total 0.6 mg/dL Normal 0.2-1.0 Bilirubin,Direct 0.2 mg/dL Normal 0.0-0.2 Total Protein 5.4 GM/DL Low 6.4-8.2 Albumin 2.5 GM/DL Low 3.2-5.2 Albumin/Globulin Ratio 0.9 Normal Cardiac Marker Panel 01/17/2020 [facility] ( Interface) [phone] CPK Creatine Phosphokinase 24 U/L Low 39-30 8 CK-MB Value Mass 1.5 NG/ML Normal <3.6 MB/CK Relative Index 6.25 High < Or =4 7 Troponin I < 0.02 NG/ML Normal < 0.10 8 Laboratory test finding 01/17/2020 [facility] (Interface) [phone] Lactic Acid Sepsis Protocol 0.9 mmol/L Normal 0.4- 2.0 9 Ua W/ Reflex To Culture 01/17/2020 [facility] (Interface) [phone] Appearance, Urine RFX CLEAR Normal Clear Color, Urine RFX YELLOW Normal Yellow PH,Urine RFX 6.0 units Normal 5.0-9.0 Specific [place] Ur Auto RFX 1.015 Normal 1.002-1.035 Protein, [...] Hematology Comments: Note: 10 Bands TNP Metamyelocytes 1 % High 0 - 0 Myelocytes 4 % High 0 - 0 Promyelocytes TNP Blasts/blast like cells TNP Megakaryocytes TNP Other, Lineage Uncertain TNP U/A DIP FPA 12/24/2019 [facility] Asso ciates Color Urine YELLOW Yellow Appearance CLEAR Clear Specific [place] 1.025 1.00-1.03 PH Urine 5.0 5.0-8.0 Glucose Urine NEG Negative Bilirubin Urine NEG Negative Ketones NEG Negative Blood Urine NEG Negative Protein Urine NEG Negative Urobilinogen .2 EU/dl 0.2-1.0 Nitrite NEG Negative Leukocytes NEG Negative Basic Metabolic Profile 12/07/2019 [facility] (Interface) [phone] Glucose, Fasting 126 mg/dL High 70-100 Blood Urea Nitrogen 22 mg/dL High 7-18 Creatinine For GFR 1.03 mg/dL Normal 0.70-1.30 Glomerular Filtration Rate > 60.0 Normal >35 1 1 Sodium Level 144 mEq/L Normal 136-145 Potassium Serum 3.9 mEq/L Normal 3.5-5.1 Chloride Level 110 mEq/L High 98-107 Carbon Dioxide Level 30 mEq/L Normal 21-32 Anion Gap 4 mEq/L Low 8-16 Calcium Level 8.5 mg/dL Low 8.8-10.2 Laboratory test finding 12/07/2019 [facility] (Interface) [phone] Magnesium Level 1.8 mg/dL Normal 1.8-2.4 Laboratory test finding 11/12/2019 [facility]Inhouse TSH 1.239 ulU/mL 0.60 - 4.8 Laboratory test finding 11/12/2019 [facility] [place] Ammonia, Plasma 78 g/dL 28-135 12 Laboratory test finding 11/12/2019 [facility] [place] Vitamin B12 412 pg/mL 232-1245 13 CBC With Differential/Platelet 11/12/2019 [facility] N E WBC 12.7 x10E3/uL High 3.4-10.8 RBC 3.51 x10E6/uL Low 4.14-5.80 14 Hemoglobin 9.9 g/dL Low 13.0-17.7 Hematocrit 30.5 [...] (Abs) TNP NRBC TNP Hematology Comments: Note: 15 Bands TNP Metamyelocytes 3 % High 0 [...] 11/12/2019 [facility] [place] No Urine Received TNP 16 1 A courtesy copy of this repo rt has been sent to the patient, 2 Actual platelet count may be somewhat higher than reported due to aggregation of platelets in this sample. 3 Manual differential was perf ormed. 4 Few schistocytes. 5 Manual differential was perf ormed. 6 Units are mL/min/1.73 m2 Chronic Kidney Disease Staging per NKF: Stage I & II GFR >=60 Normal to Mildly Decreased Stage III GFR 30-59 Moderately Decreased Stage IV GFR 15-29 Severely Decreased Stage V GFR <15 Very Little GFR Left ESRD GFR <15 on EXTENSION EDUCATOR 7 DIAGNOSIS CRITERIA MMB ng/ml Relative Index (RI) NON-AMI < or = 5 N/A CHANEY ZONE > 5 < or = 4 AMI > 5 > 4 8 Troponin I Reference Interva l for Siemens [place] LOCI: 99th Percentile= 0.00-0.045 ng/ml Risk Stratification: <= 0.10 ng/ml Decreased Risk for Adverse Clinical Events. 0.10-1.50 ng/ml Increased Risk for Adv erse Clinical Events. Evaluation of additional criterion and/or repeat testing in 2-6 hours is suggested to rule out myocardial damage. >= 1.50 ng/ml Indicative of Myocardial Injury. 9 Y/N query for Sepsis Lactate Rule: Y 10 Manual differential was perf ormed. 11 Units are mL/min/1.73 m2 Chronic Kidney Disease Staging per NKF: Stage I & II GFR >=60 Normal to Mildly Decreased Stage III GFR 30-59 Moderately Decreased Stage IV GFR 15-29 Severely Decreased Stage V GFR <15 Very Little GFR Left ESRD GFR <15 on EXTENSION EDUCATOR 12 Please note reference inte rval change 13 Test(s) 119040-[id number] Acid, U was developed and its performance characteristics determined by [facility]. It has not been cleared or approved by the Food and Drug Administration. 14 Polychromasia present Elliptocytes present. Marked anisocytosis. 15 Manual differential was perf ormed. 16 No urine specimen received. TEST: [id number] Methylmalonic Acid, Urine Procedures Description No Information Available Medical Devices Description No Information Available Encounters Type Date Location Provider Dx Diagnosis Office Visit 04/25/2020 2:30p [place] [facility] Mack Monae M. D. 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 D. 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 D. R63.4 Abnormal weight loss D64.9 Anemia, unspecified I50.9 Heart failure, unspecified Z23 Encounter for immunization Office Visit 11/12/2019 3:20p [place] [facility] Mack Monae M. D. 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 Plan of Treatment No Information Available Functional Status Description No Information Available Mental Status Description No Information Available Referrals Refer to Reason for Referral Status Appt Date Radha Garcia hallucinations, adventitial movements wh ile sleeping- eval and rx Sent 01/11/2020 [facility] [address] [address] [phone]
--- OUTSIDE RECORDS SUMMARY | 2020-05-19 11:54 | CCD | Continuity of Care Document ---
Author Author Pete BATES Organization Unknown Address [address] [place] [address] Phone [phone] Care Team Providers Care Bow Maker Production Name Role Phone Mack Monae M.D. [facility] [phone] Problems Active Problems Provider Date Essential hypertension [...] Capsules 1 by mouth twice a day 180capMack Pandey M.D. 12/08/2019 Megestrol Acetate 625mg/5ML Suspen adrian 5ml by mouth daily 150units R63.4 Mack Monae M.D. 11/12/2019 Paxil 40mg Tablets 1 by mouth every day *(family giving 1/2 tab qd)* 30tabs Mack Monae M. D. 10/11/2019 Zofran 4mg Tablets 1 tab by mouth every 6 hours as needed nausea 30tabs Mack Monae M.D. Tramadol HCL 50mg Tablets take one tablet by mouth every 6 hours as needed for pain [id number] 120taMack Davies M.D. 08/31/2019 Prednisone 5mg Tablets Take One Tablet By Mouth Every Day 30Mack Marion M.D. 02/04/[address] Take One Capsule By Mouth Every Day 90caps Mack Monae M.D. 03/26/2013 Fenofibrate 160mg Tablets Take One Tablet By Mouth Every Day 90Mack Marion M.D. 013 Finasteride 5mg Tablets Take One Tablet By Mouth Every Day 90Mack Marion M.D. Eliquis 2.5mg Tablets Take One Tablet By Mouth Twice A Day 60taMack Davies M.D. 00 Atenolol 25mg Tablets 1 by mo uth bid Unknown Acetaminophen Extra Strength 500mg Tablets 2 tab by mouth four times a day as needed Unknown Amiodarone HCL 200mg Tablets 1 by mouth every day 30taMack Davies M.D. Diltiazem HCL ER 120mg Caps ER [...] Available Vital Signs Date Vital Result Comment 01/11/2020 10:32am Respiratory Rate 12 /min Height 67 inches 5'7" Weight 136.00 lb BMI (Body Mass Index) 21.3 kg/m2 [place] Body Weight 148 lb 12/24/2019 3:06pm BP Systolic 118 mmHg BP Diastolic 64 mmHg Heart Rate 70 /min Body Temperature 97.5 F Respiratory Rate 12 /min Height 67 inches Weight 136.00 lb BMI (Body Mass Index) [...] Import Color Urine Yellow Appearance Clear Specific [place] 1.025 1 1.00-1.03 PH Urine 5.0 1 [...] Little GFR Left ESRD GFR <15 on FIXTURE DESIGNER Procedures Description No Information Available Medical Devices Description No Information Available Encounters Type Date Location Provider Dx Diagnosis Office Visit 01/11/2020 10:00a [facility] [place] Thom harden M.D. M21.372 Foot drop, left foot G31.83 Dementia with Lewy bodies Assessments Date Code Description Provider 01/11/2020 M21.372 Foot drop, left foot Thom kaur M.D. 01/11/2020 G31.83 Dementia with Lewy bodies Thom Lynch M.D. Plan of Treatment Future Appointment(s):* 04/20/2020 2:15 pm - Thom Lynch M.D. at [facility] Functional Status Description No Information Available Mental Status Description No Information Available Referrals Description No Information Available
--- OUTSIDE RECORDS SUMMARY | 2020-05-19 11:54 | CCD | Continuity of Care Document ---
Author Author Pete DELGADO M.D. Organization Unknown Address [address] [place] [address] Phone [phone] Care Team Providers Care Senior Mechanical Design Engineer Name Role Phone Mack Monae M.D. [facility] [phone] Problems Active Problems Provider Date Essential hypertension [...] every 6 hours as needed for pain [id number] 120Mack Marion M.D. 08/31/2019 Prednisone 5mg Tablets [...] lb BMI (Body Mass Index) 22.7 kg/m2 [place] Body Weight 148 lb 01/11/2020 10:32am Respiratory Rate 12 /min Height 67 inches 5'7" Weight 136.00 lb BMI (Body Mass Index) 21.3 kg/m2 [place] Body Weight 148 lb Results Test Acquired [...] Import Color Urine Yellow Appearance Clear Specific [place] 1.025 1 1.00-1.03 PH Urine 5.0 1 [...] Little GFR Left ESRD GFR <15 on PRODUCT MGMT DEV MANAGER Procedures Date Code Description Status 02/23/2020 42861 EEG Recording Awake & Asleep Com pleted 02/23/2020 09407 EEG Recording Awake & Asleep Com pleted Medical Devices Description No Information Available Encounters Type Date Location Provider Dx Diagnosis Office Visit 01/11/2020 10:00a Main office [facility] [place] Thom harden M.D. M21.372 Foot drop, left [...] bodies Thom Delgado M.D. Plan of Treatment No Information Available Functional Status Description No Information Available Mental Status Description No Information Available Referrals Description No Information Available
--- OUTSIDE RECORDS SUMMARY | 2020-05-19 11:54 | CCD | Continuity of Care Document ---
Author Author Pete BATES Organization Unknown Address [address] [place] [address] Phone [phone] Care Team Providers Care Grant Writer Name Role Phone Mack Monae M.D. [facility] [phone] Problems Active Problems Provider Date Essential hypertension [...] every 6 hours as needed for pain [id number] 120taMack Davies M.D. 08/31/2019 Prednisone 5mg Tablets [...] lb BMI (Body Mass Index) 21.3 kg/m2 [place] Body Weight 148 lb 12/24/2019 3:06pm BP [...] Import Color Urine Yellow Appearance Clear Specific [place] 1.025 1 1.00-1.03 PH Urine 5.0 1 [...] Little GFR Left ESRD GFR <15 on BOTTOM MAN Procedures Date Code Description Status 02/23/2020 83985 EEG Recording Awake & Asleep Com pleted 02/23/2020 10290 EEG Recording Awake & Asleep Com pleted Medical Devices Description No Information Available Encounters Type Date Location Provider Dx Diagnosis Office Visit 01/11/2020 10:00a [facility] Thom harden M.D. 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 02/23/2020 R41.82 Altered mental status, unspecifi ed EEG 01/11/2020 M21.372 Foot drop, left foot Thom kaur M.D. 01/11/2020 G31.83 Dementia with Lewy bodies Thom Lynch M.D. Plan of Treatment Future Appointment(s):* 04/20/2020 2:15 pm - Thom Lynch M.D. at [facility] Functional Status Description No Information Available Mental Status Description No Information Available Referrals Description No Information Available
--- OUTSIDE RECORDS SUMMARY | 2020-05-19 11:54 | CCD | Continuity of Care Document ---
Author Organization Unknown Address Unknown Phone Unavailable Care Team Providers Care Commercial Decorator Name Role Phone Mack Monae MD [facility] [phone] Genna Ordoñez MD [facility] [phone] Faiza Low [facility] [phone] Dwight Brooks MD [facility] [phone] Justen Wagoner MD [facility] [phone] Jose Leslie MD [facility] [phone] Problems Active Problems Provider Date Paroxysmal atrial fibrillation Nancy Dunlap PA-C Onset: 0 11/13/2015 Benign hypertensive heart disease without congestive h eart failure BRIAN Castillo Onset: 09/30/2011 Conduction disorder of the heart Nancy Dunlap PA-C Onset: 11/13/2015 Paroxysmal supraventricular tachycardia BRIAN Castillo Onset: 09/30/2011 Electrocardiogram abnormal RBIAN Castillo Onset : 09/30/2011 Pure hypercholesterolemia BRIAN Castillo Onset: 06/18/2012 Sinus node dysfunction BRIAN Castillo Onset: Cardiac pacemaker in situ BRIAN Castillo Onset: 09/30/2011 Chronic diastolic heart failure Nancy Dunlap PA-C Onset: 09/09/2019 Social History Type Date [...] SIG Qnty Indications Ordering Provide r Date Stool Softener 100mg Capsules 1 by mouth [...] Aerosol 2 puff twice a day Doc Bradley DO 10/09/2014 Finasteride 5mg Tablets 1 by mouth every day Faiza Low, ASSOCIATE MARKETING MANAGER 015 Eliquis 2.5mg Tablets 1 by mouth twice a day 180tabs I48.0 Bertin Dick MD 04/23/2013 Xopenex HFA 45mcg/Act Aerosol Inhale Two Puffs By Mouth Every 4 Hours 30units Bertin Dick MD 07/27/2012 [place]-3 Fish Oil 1000mg Capsules 1 po bid [...] Date Facility Test Result H/L Range Note CMP 01/22/2020 [facility] ([facility])- - Albumin [...] [facility] ([facility])- - Magnesium Ser/Plasma Mass/Vol 1.6 CMP 10/21/2019 [facility] ([facility])- - Albumin Serum/Plasma 2.8 Alt - SGPT 15 Calcium Ser/Plasma Mass/Vol 8.5 Carbon Dioxide Ser/Plasm 31 Chloride Serum/Plasma 107 Alkaline Phosphatase 38 Potassium 3.9 Protein Total 5.4 Sodium 140 Ast - Sgot 15 BUN - Urea Nitrogen 18 Glucose 88 70-100 Creatinine For GFR 1.07 CBC without Differential 10/21/2019 [facility] ([facility])- - White Blood Count 9.6 4.3-10.9 Red Blood Count 3.31 Low 4.70-6.20 Platelets 195 130-400 Hemoglobin 9.5 Low 13.0-17.0 Hematocrit 29.8 Low 39.0-50.0 BMP 10/21/2019 [facility] ([facility])- - Calcium Ser/Plasma Mass/Vol 8.5 Sodium 144 Carbon Dioxide Ser/Plasm 30 Chloride Serum/Plasma 110 Potassium 3.9 Glucose 126 High 70-100 Blood Urea Nitrogen 22 High 5-21 Creatinine 1.03 0.6-1.5 G F R >60.0 Basic Metabolic Panel 10/01/2019 [facility] - not interfac ed (315)- - Glucose 82 70-100 Blood Urea Nitrogen 9 7-18 Creatinine 0.96 0.6-1.0 Sodium 143 136-145 Potassium 4.1 3.5-5.1 Chloride 107 98-107 Carbon Dioxide 30 21-32 Calcium 8.4 8.2-9.6 GFR (Calculated) >60.0 >32 CBC without Differential 10/01/2019 [facility] - not inter faced (315)- - White Blood Count 6.1 4.0-10.0 Red Blood Count 3.07 Low 4.30-6.10 Platelets 175 150-450 Hemoglobin 8.7 Hematocrit 28.0 Procedures Date Code Description Status 11/11/2019 61275 Pacer Interrogation Any Leads Co mpleted Medical Devices Description No Information Available Encounters Type Date Location Provider Dx Diagnosis Office Visit 12/13/2019 11:15a Main Office Nancy Dunlap PA-C I50.3 2 Chronic diastolic (congestive) heart failure Assessments Date Code Description Provider 12/13/2019 I50.32 Chronic diastolic (congestive) h eart failure Nancy Dunlap PA-C 11/11/2019 I49.5 Sick sinus syndrome Nancy marcial PA-C Plan of Treatment Future Appointment(s):* 03/15/2020 12:30 pm - Nancy Dunlap PA-C at Main Office * 05/16/2020 9:15 am - Nancy Dunlap PA-C at Main Office 12/13/2019 - Nancy Dunlap PA-C* I50.32 Chronic diastolic (congestive) heart failure* [...] follow up. Obtain lab work done at [facility] 12/07/19. Functional Status Functional Condition Comment Date Status Independent with all ADL's Activ e Mental Status Description No Information Available Referrals Description No Information Available
--- OUTSIDE RECORDS SUMMARY | 2020-05-19 11:54 | CCD | Continuity of Care Document ---
Author Author Pete MONAE M.D. Organization Unknown Address [address] [place], [place] [address] Phone [phone] Care Team Providers Care Coat Padder Name Role Phone [facility] Problems Active Problems Provider Date Polymyalgia rheumatica [...] CPT Code Status Date Vaccine Lot # [id number] Given 11/26/2019 Influenza Virus Vaccine, Quadrivalent, Slit Virus, Im Use 3Y & Up [id number] 04482 Given 02/06/2018 Influenza Virus Vaccine, Quadrivalent, Slit Virus, Im Use 3Y & Up [id number] 81916 Given 02/04/2017 Influenza Virus Vaccine, Quadrivalent, Slit Virus, Im Use 3Y & Up [id number] 07802 Given 01/12/2016 Influenza Virus Vaccine, Quadrivalent, Slit Virus, Im Use 3Y & Up [id number] 77099 Given 03/29/2015 Influenza Vaccin e (Fluzone) 3Yrs Of Age Or Older Medicare Plans [id number] 67940 Given 01/18/2013 Influenza Vaccin e (Fluzone) 3Yrs Of Age Or Older Medicare Plans 35454 Given 01/18/2013 Influenza Virus Vac. Split Virus Individuals 3 Years And Above [id number] Vital Signs Date Vital Result Comment 04/25/2020 2:25pm BP Systolic 116 mmHg BP Diastolic 70 mmHg Body Temperature 98.4 F Heart Rate 70 /min Respiratory Rate 14 /min Height 67 inches 5'7" Weight 153.00 lb [place] Body Weight 148 lb BMI (Body Mass Index) 24.0 kg/m2 O2 % BldC Oximetry 94 % 12/24/2019 3:06pm BP Systolic 118 mmHg BP Diastolic 64 mmHg Body Temperature 97.5 F Heart Rate 70 /min Respiratory Rate 12 /min Height 67 inches 5'7" Weight 136.00 lb [place] Body Weight 148 lb BMI (Body Mass Index) 21.3 kg/m2 O2 % BldC Oximetry 94 % Results Test Acquired Date Facility Test Result H/L Range Note Ua W/ Reflex To Culture [facility]17[facility] [phone] Appearance, Urine RFX CLEAR Normal Clear Color, Urine RFX YELLOW Normal Yellow PH,Urine RFX 6.0 units Normal 5.0-9.0 Specific [place] Ur Auto RFX 1.015 Normal 1.002-1.035 Protein, [...] Urine Auto RFX 0 /LPF Normal 0-1 Laboratory test finding 01/17/2020 [facility] (Interface) [phone] Lactic Acid Sepsis Protocol 0.9 mmol/L Normal 0.4- 2.0 1 Cardiac Marker Panel 01/17/2020 [facility]) [phone] CPK Creatine Phosphokinase 24 U/L Low 39-30 8 CK-MB Value Mass 1.5 NG/ML Normal <3.6 MB/CK Relative Index 6.25 High < Or =4 2 Troponin I < 0.02 NG/ML Normal < 0.10 3 Liver Profile 01/17/2020 [facility] (I nterface) [phone] Ast/Sgot 14 U/L Normal 7-37 Alt/SGPT 17 U/L Normal 12-78 Alkaline Phosphatase 70 U/L Normal 45-117 Bilirubin,Total 0.6 mg/dL Normal 0.2-1.0 Bilirubin,Direct 0.2 mg/dL Normal 0.0-0.2 Total Protein 5.4 GM/DL Low 6.4-8.2 Albumin 2.5 GM/DL Low 3.2-5.2 Albumin/Globulin Ratio 0.9 Normal Basic Metabolic Profile 01/17/2020 [facility] (Interface) [phone] Glucose, Fasting 114 mg/dL High 70-100 Blood Urea Nitrogen 18 mg/dL Normal 7-18 Creatinine For GFR 1.00 mg/dL Normal 0.70-1.30 Glomerular Filtration Rate > 60.0 Normal >35 4 Sodium Level 142 mEq/L Normal 136-145 Potassium Serum 4.3 mEq/L Normal 3.5-5.1 Chloride Level 107 mEq/L Normal 98-107 Carbon Dioxide Level 31 mEq/L Normal 21-32 Anion Gap 4 mEq/L Low 8-16 Calcium Level 8.7 mg/dL Low 8.8-10.2 Laboratory test finding 01/17/2020 [facility] (Interface) [phone] Osmolality Serum 292 MOSM/KG Normal 280-301 Thyroid Stimulating Hormone 0.928 uIU/ML Normal 0.358-3.740 CBC With [facility] [phone] White Blood Count 13.4 10 High 4.0-10.0 [...] Blood Cell % 0.0 % Normal 0-0 Differential 01/17/2020 [facility] (I nterface) [phone] Neutrophils 83 % High 28-66 Bands 1 % Normal < 11 Lymphocytes 5 % Low 16-44 Monocytes 7 % High 0-5 Myelocytes 3 % High 0-0 Atypical Lymph 1 % Normal 0-5 Anisocytosis 2+ Normal Laboratory test finding 01/17/2020 [facility] (Interface) [phone] Platelet Estimate NORMAL Normal Normal U/A DIP FPA 12/24/2019 [facility] Color Urine YELLOW Yellow Appearance CLEAR Clear Specific [place] 1.025 1.00-1.03 PH Urine 5.0 5.0-8.0 Glucose Urine NEG Negative Bilirubin Urine NEG Negative Ketones NEG Negative Blood Urine NEG Negative Protein Urine NEG Negative Urobilinogen .2 EU/dl 0.2-1.0 Nitrite NEG Negative Leukocytes NEG Negative CBC With Differential/Platelet 12/24/2019 [facility] N E [...] TNP Megakaryocytes TNP Other, Lineage Uncertain TNP Basic Metabolic Profile 12/07/2019 [facility] (Interface) [phone] Glucose, Fasting 126 mg/dL High 70-100 Blood [...] mg/dL Low 8.8-10.2 Laboratory test finding 12/07/2019 [facility] (Interface) [phone] Magnesium Level 1.8 mg/dL Normal 1.8-2.4 Laboratory [...] NE No Urine Received TNP 11 1 Y/N query for Sepsis Lactate Rule: Y 2 DIAGNOSIS CRITERIA MMB ng/ml Relative Index (RI) NON-AMI < or = 5 N/A CHANEY ZONE > 5 < or = 4 AMI > 5 > 4 3 Troponin I Reference Interva l for Siemens [place] LOCI: 99th Percentile= 0.00-0.045 ng/ml Risk Stratification: <= 0.10 ng/ml Decreased Risk for Adverse Clinical Events. 0.10-1.50 ng/ml Increased Risk for Adv erse Clinical Events. Evaluation of additional criterion and/or repeat testing in 2-6 hours is suggested to rule out myocardial damage. >= 1.50 ng/ml Indicative of Myocardial Injury. 4 Units are mL/min/1.73 m2 Chronic Kidney Disease Staging per NKF: Stage I & II GFR >=60 Normal to Mildly Decreased Stage III GFR 30-59 Moderately Decreased Stage IV GFR 15-29 Severely Decreased Stage V GFR <15 Very Little GFR Left ESRD GFR <15 on AUTOMOBILE CLUB TRAVEL COUNSELOR 5 Manual differential was perf ormed. 6 Units are mL/min/1.73 m2 Chronic Kidney Disease Staging per NKF: Stage I & II GFR >=60 Normal to Mildly Decreased Stage III GFR 30-59 Moderately Decreased Stage IV GFR 15-29 Severely Decreased Stage V GFR <15 Very Little GFR Left ESRD GFR <15 on AUTOMOBILE CLUB TRAVEL COUNSELOR 7 Please note reference inte rval change 8 Test(s) 632110-[id number] Acid, U was developed and its performance characteristics determined by [facility]. It has not been cleared or approved by the Food and Drug Administration. 9 Polychromasia present Elliptocytes present. Marked anisocytosis. 10 Manual differential was perf ormed. 11 No urine specimen received. TEST: [id number] Methylmalonic Acid, Urine Procedures Description No Information Available Medical Devices Description No Information Available Encounters Type Date Location Provider Dx Diagnosis Office Visit 04/25/2020 2:30p [facility] Mack Monae M. D. 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 D. 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 D. R63.4 Abnormal weight loss D64.9 Anemia, unspecified I50.9 Heart failure, unspecified Z23 Encounter for immunization Office Visit 11/12/2019 3:20p [facility] Mack Monae M. D. 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 D. R55 Syncope [...] to Reason for Referral Status Appt Date Ali, Radha hallucinations, adventitial movements wh ile sleeping- eval and rx Sent 01/11/2020 [facility] [address] [address] [phone]
--- OUTSIDE RECORDS SUMMARY | 2020-05-19 11:54 | CCD | Continuity of Care Document ---
Author Organization Unknown Address Unknown Phone Unavailable Care Team Providers Care Brazing Machine Tender Name Role Phone Mack Monae MD [facility] [phone] Genna Ordoñez MD AUTM [phone] Faiza Low AUT[facility] [phone] Dwight Brooks MD AUTM [phone] Justen Wagoner MD AUTM [phone] Jose Leslie MD AUTM [phone] Problems Active Problems Provider Date Paroxysmal atrial [...] 1 by mouth every day Faiza Low, LEGGER PRESS OPERATOR 015 Eliquis 2.5mg Tablets 1 by mouth twice a day 180tabs I48.0 Bertin Dick MD 04/23/2013 Xopenex HFA 45mcg/Act Aerosol Inhale Two Puffs By Mouth Every 4 Hours 30units Bertin Dick MD 07/27/2012 [place]-3 Fish Oil 1000mg Capsules 1 po bid [...] GFR 1.07 CBC without Differential 10/21/2019 [facility] ([facility])- - White Blood Count 9.6 [...] F R >60.0 Basic Metabolic Panel 10/01/2019 [facility] - not interfac ed (315)- - Glucose 82 70-100 Blood Urea Nitrogen 9 7-18 Creatinine 0.96 0.6-1.0 Sodium 143 136-145 Potassium 4.1 3.5-5.1 Chloride 107 98-107 Carbon Dioxide 30 21-32 Calcium 8.4 8.2-9.6 GFR (Calculated) >60.0 >32 CBC without Differential 10/01/2019 [facility] - not inter faced (315)- - White Blood Count 6.1 4.0-10.0 Red Blood Count 3.07 Low 4.30-6.10 Platelets 175 150-450 Hemoglobin 8.7 Hematocrit 28.0 Procedures Date Code Description Status 11/11/2019 09537 Pacer Interrogation Any Leads Co mpleted Medical [...] follow up. Obtain lab work done at [facility] 12/07/19. Functional Status Functional Condition Comment Date Status Independent with all ADL's Activ e Mental Status Description No Information Available Referrals Description No Information Available
--- OUTSIDE RECORDS SUMMARY | 2020-05-19 11:57 | CCD ---
Author Author [facility] Organization [facility] Address Unknown Phone Unavailable Care Team Providers Care Platform Mill Supervisor Name Role Phone Ramirez Garcia MASTER MACHINIST Unavailable Unavailable DietscheRamirez MASTER MACHINIST Unavailable Unavailable Dietsche M Vanessa MASTER MACHINIST Unavailable Unavailable Dietsche M Vanessa MASTER MACHINIST Unavailable Unavailable Dietsche M Vanessa MASTER MACHINIST Unavailable Unavailable Dietsche M Vanessa MASTER MACHINIST Unavailable Unavailable Dietsche M Vanessa MASTER MACHINIST Unavailable Unavailable Dietsche M Vanessa MASTER MACHINIST Unavailable Unavailable Dietsche M Vanessa MASTER MACHINIST Unavailable Unavailable Dietsche, M Vanessa MASTER MACHINIST Unavailable Unavailable Dietsche, M Vanessa MASTER MACHINIST Unavailable Unavailable Dietsche, M Vansesa MASTER MACHINIST Unavailable Unavailable Kathy Dunlap Unavailable Unavailable Kathy Dunlap Unavailable Unavailable Symenow, Kathy Nancy PA Unavailable Unavailable Symenow, Kathy Nancy PA Unavailable Unavailable Symenow, Kathy Nancy PA Unavailable Unavailable Symenow, Kathy Nancy PA Unavailable Unavailable Symenow, Kathy Nancy PA Unavailable Unavailable Symenow, Kathy Nancy PA Unavailable Unavailable Symenow, Kathy Nancy PA Unavailable Unavailable Symenow, Kathy Nancy PA Unavailable Unavailable Symenow, Kathy Nancy PA Unavailable Unavailable Symenow, Kathy Nancy PA Unavailable Unavailable Symenow, Kathy Nancy PA Unavailable Unavailable Symenow, Kathy Nancy PA Unavailable Unavailable Symenow, Kathy Nancy PA Unavailable Unavailable Symenow, Kathy Nancy PA Unavailable Unavailable Symenow, Kathy Nancy PA Unavailable Unavailable Symenow, Kathy Nancy PA Unavailable Unavailable Symenow, Kathy Nancy PA Unavailable Unavailable Symenow, Kathy Nancy PA Unavailable Unavailable Symenow, Kathy Nancy PA Unavailable Unavailable Symenow, Kathy Nancy PA Unavailable Unavailable Symenow, Kathy Nancy PA Unavailable Unavailable Symenow, Kathy Nancy PA Unavailable Unavailable Symenow, Kathy Nancy PA Unavailable Unavailable Symenow, Kathy Nancy PA Unavailable Unavailable Symenow, Kathy Nancy PA Unavailable Unavailable Symenow, Kathy Nancy PA Unavailable Unavailable Symenow, Kathy Nancy PA Unavailable Unavailable Symenow, Kathy Nancy PA Unavailable Unavailable Symenow, Kathy Nancy PA Unavailable Unavailable Symenow, Kathy Nancy PA Unavailable Unavailable Symenow, Kathy Nancy PA Unavailable Unavailable Symenow, Kathy Nancy PA Unavailable Unavailable Symenow, Kathy Nancy PA Unavailable Unavailable Symenow, Kathy Nancy PA Unavailable Unavailable REBECCA, JORGE PA Unavailable Unavailable REBECCA, JORGE PA Unavailable Unavailable REBECCA, JORGE PA Unavailable Unavailable REBECCA, JORGE PA Unavailable Unavailable REBECCA, JORGE PA Unavailable Unavailable REBECCA, JORGE PA Unavailable Unavailable REBECCA, JORGE PA Unavailable Unavailable REBECCA, JORGE PA Unavailable Unavailable REBECCA, JORGE PA Unavailable Unavailable REBECCA, JORGE PA Unavailable Unavailable REBECCA, JORGE PA Unavailable Unavailable REBECCA, JORGE PA Unavailable Unavailable REBECCA, JORGE PA Unavailable Unavailable REBECCA, JORGE PA Unavailable Unavailable REBECCA, JORGE PA Unavailable Unavailable Nicky LUNA MD Unavailable Unavailable Nicky LUNA MD Unavailable Unavailable Nicky LUNA MD Unavailable Unavailable Nicky LUNA MD Unavailable Unavailable Nicky LUNA MD Unavailable Unavailable Nicky LUNA MD Unavailable Unavailable Nicky LUNA MD Unavailable Unavailable Nicky LUNA MD Unavailable Unavailable Nicky LUNA MD Unavailable Unavailable Nicky LUNA MD Unavailable Unavailable Nicky LUNA MD Unavailable Unavailable Nicky LUNA MD Unavailable Unavailable Nicky LUNA MD Unavailable Unavailable Nicky LUNA MD Unavailable Unavailable Nicky LUNA MD Unavailable Unavailable Nicky LUNA MD Unavailable Unavailable Nicky LUNA MD Unavailable Unavailable Nicky LUNA MD Unavailable Unavailable Nicky LUNA MD Unavailable Unavailable Nicky LUNA MD Unavailable Unavailable Nicky LUNA MD Unavailable Unavailable Nicky LUNA MD Unavailable Unavailable Nicky LUNA MD Unavailable Unavailable Nicky LUNA MD Unavailable Unavailable Nicky LUNA MD Unavailable Unavailable Nicky LUNA MD Unavailable Unavailable Nicky LUNA MD Unavailable Unavailable Nicky LUNA MD Unavailable Unavailable Nicky LUNA MD Unavailable Unavailable Nicky LUNA MD Unavailable Unavailable Nicky LUNA MD Unavailable Unavailable Nicky LUNA MD Unavailable Unavailable Nicky LUNA MD Unavailable Unavailable Nicky LUNA MD Unavailable Unavailable Nicky LUNA MD Unavailable Unavailable Nicky LUNA MD Unavailable Unavailable Nicky LUNA MD Unavailable Unavailable Nicky LUNA MD Unavailable Unavailable Nicky LUNA MD Unavailable Unavailable Nicky LUNA MD Unavailable Unavailable Nicky LUNA MD Unavailable Unavailable Nicky LUNA MD Unavailable Unavailable Nicky LUNA MD Unavailable Unavailable Nicky LUNA MD Unavailable Unavailable Nicky LUNA MD Unavailable Unavailable Nicky LUNA MD Unavailable Unavailable Nicky LUNA MD Unavailable Unavailable Nicky LUNA MD Unavailable Unavailable Nicky LUNA MD Unavailable Unavailable Nicky LUNA MD Unavailable Unavailable Nicky LUNA MD Unavailable Unavailable Nicky LUNA MD Unavailable Unavailable Nicky LUNA MD Unavailable Unavailable Nicky LUNA MD Unavailable Unavailable Nicky LUNA MD Unavailable Unavailable Nicky LUNA MD Unavailable Unavailable Nicky LUNA MD Unavailable Unavailable Nicky LUNA MD Unavailable Unavailable Nicky LUNA MD Unavailable Unavailable Nicky LUNA MD Unavailable Unavailable Nicky LUNA MD Unavailable Unavailable Nicky LUNA MD Unavailable Unavailable Nicky LUNA MD Unavailable Unavailable Nicky LUNA MD Unavailable Unavailable Nicky LUNA MD Unavailable Unavailable Nicky LUNA MD Unavailable Unavailable Nicky LUNA MD Unavailable Unavailable Nicky LUNA MD Unavailable Unavailable Nicky LUNA MD Unavailable Unavailable Nicky LUNA MD Unavailable Unavailable Nicky LUNA MD Unavailable Unavailable Nicky LUNA MD Unavailable Unavailable Nicky LUNA MD Unavailable Unavailable Nicky LUNA MD Unavailable Unavailable Nicky LUNA MD Unavailable Unavailable Nicky LUNA MD Unavailable Unavailable MAJAK, R JAY DPM Unavailable Unavailable MAJAK, R JAY DPM Unavailable Unavailable MAJAK, R JAY DPM Unavailable Unavailable MAJAK, R JAY DPM Unavailable Unavailable MAJAK, R JAY DPM Unavailable Unavailable MAJAK, R JAY DPM Unavailable Unavailable MAJAK, R JAY DPM Unavailable Unavailable MAJAK, R JAY DPM Unavailable Unavailable MAJAK, R JAY DPM Unavailable Unavailable MAJAK, R JAY DPM Unavailable Unavailable MAJAK, R JAY DPM Unavailable Unavailable MAJAK, R JAY DPM Unavailable Unavailable MAJAK, R JAY DPM Unavailable Unavailable MAJAK, R JAY DPM Unavailable Unavailable MAJAK, R JAY DPM Unavailable Unavailable MAJAK, R JAY DPM Unavailable Unavailable MAJAK, R JAY DPM Unavailable Unavailable MAJAK, R JAY DPM Unavailable Unavailable MAJAK, R JAY DPM Unavailable Unavailable MAJAK, R JAY DPM Unavailable Unavailable MAJAK, R JAY DPM Unavailable Unavailable MAJAK, R JAY DPM Unavailable Unavailable MAJAK, R JAY DPM Unavailable Unavailable MAJAK, R JAY DPM Unavailable Unavailable MAJAK, R JAY DPM Unavailable Unavailable MAJAK, R JAY DPM Unavailable Unavailable MAJAK, R JAY DPM Unavailable Unavailable MAJAK, R JAY DPM Unavailable Unavailable MAJAK, R JAY DPM Unavailable Unavailable MAJAK, R JAY DPM Unavailable Unavailable NON, PHYSICIAN STAFF Unavailable Unavailable LISA MORE MD Unavailable Unavailable LISA MORE MD Unavailable Unavailable LISA MORE MD Unavailable Unavailable LISA MORE MD Unavailable Unavailable LISA MORE MD Unavailable Unavailable LISA MORE MD Unavailable Unavailable LISA MORE MD Unavailable Unavailable LISA MORE MD Unavailable Unavailable LISA MORE MD Unavailable Unavailable LISA MORE MD Unavailable Unavailable LISA MORE MD Unavailable Unavailable LISA MORE MD Unavailable Unavailable LISA MORE MD Unavailable Unavailable LISA MORE MD Unavailable Unavailable LISA MORE MD Unavailable Unavailable MORE, LISA MD Unavailable Unavailable MORE, LISA MD Unavailable Unavailable MORE, LISA MD Unavailable Unavailable MORE, LISA MD Unavailable Unavailable MORE, LISA MD Unavailable Unavailable MORE, LISA MD Unavailable Unavailable MORE, LISA MD Unavailable Unavailable MORE, LISA MD Unavailable Unavailable MORE, LISA MD Unavailable Unavailable MORE, LISA MD Unavailable Unavailable MORE, LISA MD Unavailable Unavailable MORE, LISA MD Unavailable Unavailable MORE, LISA MD Unavailable Unavailable MORE, LISA MD Unavailable Unavailable MORE, LISA MD Unavailable Unavailable MORE, LISA MD Unavailable Unavailable MORE, LISA MD Unavailable Unavailable MORE, LISA MD Unavailable Unavailable MORE, LISA MD Unavailable Unavailable MORE, LISA MD Unavailable Unavailable MORE, LISA MD Unavailable Unavailable MORE, LIAS MD Unavailable Unavailable MORE, LISA MD Unavailable Unavailable MORE, LISA MD Unavailable Unavailable MORE, LISA MD Unavailable Unavailable MORE, LISA MD Unavailable Unavailable MORE, LISA MD Unavailable Unavailable MORE, LISA MD Unavailable Unavailable MORE, LISA MD Unavailable Unavailable MORE, LISA MD Unavailable Unavailable MORE, LISA MD Unavailable Unavailable MORE, LISA MD Unavailable Unavailable MORE, LISA MD Unavailable Unavailable MORE, LISA MD Unavailable Unavailable MORE, LISA MD Unavailable Unavailable MORE, LISA MD Unavailable Unavailable MORE, LISA MD Unavailable Unavailable MORE, LISA MD Unavailable Unavailable MORE, LISA MD Unavailable Unavailable MORE, LISA MD Unavailable Unavailable MORE, LISA MD Unavailable Unavailable MORE, LISA MD Unavailable Unavailable MORE, LISA MD Unavailable Unavailable MORE, LISA MD Unavailable Unavailable MORE, LISA MD Unavailable Unavailable MORE, LISA MD Unavailable Unavailable MORE, LISA MD Unavailable Unavailable MORE, LISA MD Unavailable Unavailable MORE, LISA MD Unavailable Unavailable MORE, LISA MD Unavailable Unavailable MORE, LISA MD Unavailable Unavailable MORE, LISA MD Unavailable Unavailable MORE, LISA MD Unavailable Unavailable MORE, LISA MD Unavailable Unavailable Yulia Sosa MD Unavailable Unavailable Yulia Sosa MD Unavailable Unavailable Yulia Sosa MD Unavailable Unavailable Yulia Sosa MD Unavailable Unavailable Yulia Sosa MD Unavailable Unavailable Yulia Sosa MD Unavailable Unavailable Dombek-LangYulia MD Unavailable Unavailable Dombek-Lang, Yulia Sandhu MD Unavailable Unavailable Shabek-Augustus, Yulia Sandhu MD Unavailable Unavailable Dombek-Lang, Yulia Sandhu MD Unavailable Unavailable Dombek-Lang, Yulia Sandhu MD Unavailable Unavailable Dombek-Lang, Yulia Sandhu MD Unavailable Unavailable Dombek-Lang, Yulia Sandhu MD Unavailable Unavailable Dombek-Lang, Yulia Sandhu MD Unavailable Unavailable Dombek-Lang, Yulia Sandhu MD Unavailable Unavailable Dombek-Lang, Yulia Sandhu MD Unavailable Unavailable Dombek-Lang, Yulia Sandhu MD Unavailable Unavailable Dombek-Lang, Yulia Sandhu MD Unavailable Unavailable Dombek-Lang, Yulia Sandhu MD Unavailable Unavailable Dombek-Lang, Yulia Sandhu MD Unavailable Unavailable Dombek-LangYulia MD Unavailable Unavailable Shabek-LangYulia MD Unavailable Unavailable ShabekYulia Garcia MD Unavailable Unavailable Dombek-Yulia Coffman MD Unavailable Unavailable Dombek-LangYulia MD Unavailable Unavailable Dombek-Yulia Coffman MD Unavailable Unavailable Shabek-Yulia Coffman MD Unavailable Unavailable ShabekYulia Garcia MD Unavailable Unavailable Shabek-Yulia Coffman MD Unavailable Unavailable Shabek-Yulia Coffman MD Unavailable Unavailable Shabek-Yulia Coffman MD Unavailable Unavailable ShabekYulia Garcia MD Unavailable Unavailable ShabekYulia Garcia MD Unavailable Unavailable Shabek-Yulia Coffman MD Unavailable Unavailable Shabek-Yulia Coffman MD Unavailable Unavailable Shabek-Yulia Coffman MD Unavailable Unavailable Kobe Lynch MD Unavailable Unavailable Kobe Lynch MD Unavailable Unavailable Kobe Lynch MD Unavailable Unavailable Kobe Lynch MD Unavailable Unavailable Kobe Lynch MD Unavailable Unavailable Kobe Lynch MD Unavailable Unavailable Kobe Lynch MD Unavailable Unavailable Kobe Lynch MD Unavailable Unavailable Kobe Lynch MD Unavailable Unavailable Kobe Lynch MD Unavailable Unavailable Kobe Lynch MD Unavailable Unavailable Kobe Lynch MD Unavailable Unavailable Kobe Lynch MD Unavailable Unavailable Kobe Lynch MD Unavailable Unavailable Kobe Lynch MD Unavailable Unavailable Kobe Lynch MD Unavailable Unavailable Kobe Lynch MD Unavailable Unavailable Kobe Lynch MD Unavailable Unavailable Kobe Lynch MD Unavailable Unavailable Kobe Lynch MD Unavailable Unavailable Kobe Lynch MD Unavailable Unavailable Kobe Lynch MD Unavailable Unavailable Kobe Lynch MD Unavailable Unavailable Kobe Lynch MD Unavailable Unavailable Kobe Lynch MD Unavailable Unavailable Kobe Lynch MD Unavailable Unavailable Kobe Lynch MD Unavailable Unavailable Kobe Lynch MD Unavailable Unavailable Kobe Lynch MD Unavailable Unavailable Kobe Lynch MD Unavailable Unavailable Kobe Lynch MD Unavailable Unavailable Kobe Lynch MD Unavailable Unavailable Kobe Lynch MD Unavailable Unavailable Kobe Lynch MD Unavailable Unavailable oKbe Lynch MD Unavailable Unavailable Kobe Lynch MD Unavailable Unavailable Kobe Lynch MD Unavailable Unavailable Kobe Lynch MD Unavailable Unavailable Kobe Lynch MD Unavailable Unavailable Kobe Lynch MD Unavailable Unavailable Kobe Lynch MD Unavailable Unavailable Kobe Lynch MD Unavailable Unavailable Kobe Lynch MD Unavailable Unavailable Kobe Lynch MD Unavailable Unavailable Kobe Lynch MD Unavailable Unavailable Kobe Lynch MD Unavailable Unavailable Kobe Lynch MD Unavailable Unavailable Kobe Lynch MD Unavailable Unavailable Kobe Lynch MD Unavailable Unavailable Kobe Lynch MD Unavailable Unavailable Kobe Lynch MD Unavailable Unavailable Kobe Lynch MD Unavailable Unavailable Kobe Lynch MD Unavailable Unavailable Kobe Lynch MD Unavailable Unavailable Kobe Lynch MD Unavailable Unavailable Kobe Lynch MD Unavailable Unavailable Kobe Lynch MD Unavailable Unavailable Kobe Lynch MD Unavailable Unavailable Kobe Lynch MD Unavailable Unavailable Kobe Lynch MD Unavailable Unavailable Kobe Lynch MD Unavailable Unavailable Kobe Lynch MD Unavailable Unavailable Kobe Lynch MD Unavailable Unavailable Kobe Lynch MD Unavailable Unavailable Kobe Lynch MD Unavailable Unavailable Kobe Lynch MD Unavailable Unavailable Kobe Lynch MD Unavailable Unavailable Kobe Lynch MD Unavailable Unavailable Kobe Lynch MD Unavailable Unavailable Kobe Lynch MD Unavailable Unavailable Kobe Lynch MD Unavailable Unavailable Kobe Lynch MD Unavailable Unavailable Kobe Lynch MD Unavailable Unavailable Kobe Lynch MD Unavailable Unavailable Kobe Lynch MD Unavailable Unavailable Kobe Lynch MD Unavailable Unavailable Nando Lewis MD Unavailable Unavailable Nando Lewis MD Unavailable Unavailable Nando Lewis MD Unavailable Unavailable Nando Lewis MD Unavailable Unavailable Nando Lewis MD Unavailable Unavailable Nando Lewis MD Unavailable Unavailable Nando Lewis MD Unavailable Unavailable Nando Lewis MD Unavailable Unavailable Nando Lewis MD Unavailable Unavailable Nando Lewis MD Unavailable Unavailable Nando Lewis MD Unavailable Unavailable Nando Lewis MD Unavailable Unavailable Nando Lewis MD Unavailable Unavailable Al Nando Harris MD Unavailable Unavailable Nando Lewis MD Unavailable Unavailable Nando Lewis MD Unavailable Unavailable Nando Lewis MD Unavailable Unavailable Nando Lewis MD Unavailable Unavailable Nando Lewis MD Unavailable Unavailable Nando Lewis MD Unavailable Unavailable Nando Lewis MD Unavailable Unavailable Nando Lewis MD Unavailable Unavailable Nando Lewis MD Unavailable Unavailable Nando Lewis MD Unavailable Unavailable Al Mudamgha, A Ali MD Unavailable Unavailable Al Mudamgha, A Ali MD Unavailable Unavailable Al Mudamgha, A Ali MD Unavailable Unavailable Al Mudamgha, A Ali MD Unavailable Unavailable Al Mudamgha, A Ali MD Unavailable Unavailable Al Mudamgha, A Ali MD Unavailable Unavailable Al Mudamgha, A Ali MD Unavailable Unavailable Al Mudamgha, A Ali MD Unavailable Unavailable Al Mudamgha, A Ali MD Unavailable Unavailable Al Mudamgha, A Ali MD Unavailable Unavailable Al Mudamgha, A Ali MD Unavailable Unavailable Al Mudamgha, A Ali MD Unavailable Unavailable Al Mudamgha, A Ali MD Unavailable Unavailable Al Mudamgha, A Ali MD Unavailable Unavailable Al Mudamgha, A Ali MD Unavailable Unavailable Al Mudamgha, A Ali MD Unavailable Unavailable Al Mudamgha, A Ali MD Unavailable Unavailable Al Mudamgha, A Ali MD Unavailable Unavailable Al Mudamgha, A Ali MD Unavailable Unavailable Al Mudamgha, A Ali MD Unavailable Unavailable Al Mudamgha, A Ali MD Unavailable Unavailable Al Mudamgha, A Ali MD Unavailable Unavailable Al Mudamgha, A Ali MD Unavailable Unavailable Al Mudamgha, A Ali MD Unavailable Unavailable Al Mudamgha, A Ali MD Unavailable Unavailable Al Mudamgha, A Ali MD Unavailable Unavailable Al Mudamgha, A Ali MD Unavailable Unavailable Al Mudamgha, A Ali MD Unavailable Unavailable Al Mudamgha, A Ali MD Unavailable Unavailable Al Mudamgha, A Ali MD Unavailable Unavailable Al Mudamgha, A Ali MD Unavailable Unavailable Al Mudamgha, A Ali MD Unavailable Unavailable Al Mudamgha, A Ali MD Unavailable Unavailable Al Mudamgha, A Ali MD Unavailable Unavailable Al Mudamgha, A Ali MD Unavailable Unavailable Al Mudamgha, A Ali MD Unavailable Unavailable Al Mudamgha, A Ali MD Unavailable Unavailable Al Mudamgha, A Ali MD Unavailable Unavailable Al Mudamgha, A Ali MD Unavailable Unavailable Al Mudamgha, A Ali MD Unavailable Unavailable Al Mudamgha, A Ali MD Unavailable Unavailable Al Mudamgha, A Ali MD Unavailable Unavailable Al Mudamgha, A Ali MD Unavailable Unavailable Al Mudamgha, A Ali MD Unavailable Unavailable Al Mudamgha, A Ali MD Unavailable Unavailable Al Mudamgha, A Ali MD Unavailable Unavailable Al Mudamgha, A Ali Unavailable Unavailable Al Mudamgha, A Ali MD Unavailable Unavailable Al Mudamgha, A Ali MD Unavailable Unavailable Al Mudamgha, A Ali MD Unavailable Unavailable Al Mudamgha, A Ali MD Unavailable Unavailable Al Mudamgha, A Ali MD Unavailable Unavailable Al Mudamgha, A Ali MD Unavailable Unavailable Al Mudamgha, A Ali MD Unavailable Unavailable Al Mudamgha, A Ali MD Unavailable Unavailable Al Mudamgha, A Ali MD Unavailable Unavailable Re-disclosure Warning The records that you are about to access may contain information from federally-assisted alcohol or drug abuse programs. If such information is present, then the following federally mandated warning applies: This information has been disclosed to you from records protected by federal confidentiality rules (42 CFR part 2). The federal rules prohibit you from making any further disclosure of this information unless further disclosure is expressly permitted by the written consent of the person to whom it pertains or as otherwise permitted by 42 CFR part 2. A general authorization for the release of medical or other information is NOT sufficient for this purpose. The Federal rules restrict any use of the information to criminally investigate or prosecute any alcohol or drug abuse patient.The records that you are about to access may contain highly sensitive health information, the redisclosure of which is protected by Article 27-F of the [facility] Public Health law. If you continue you may have access to information: Regarding HIV / AIDS; Provided by facilities licensed or operated by the [facility] Office of Mental Health; or Provided by the [facility] Office for People With Developmental Disabilities. If such information is present, then the following [facility] mandated warning applies: This information has been disclosed to you from confidential records which are protected by state law. State law prohibits you from making any further disclosure of this information without the specific written consent of the person to whom it pertains, or as otherwise permitted by law. Any unauthorized further disclosure in violation of state law may result in a fine or intermediate sentence or both. A general authorization for the release of medical or other information is NOT sufficient authorization for further disc losure. Family History Family Member Name Family Member Gender Family Member Status Date o f Status Description Data Source(s) Unknown Unknown Problem [facility] ([facility]) Encounters Encounter Providers Location Date Indications Data Source(s ) Outpatient Attender: JAY SALGADO [facility] Office 04/01 09:45:00 AM EST [facility] ([facility] Outpatient Attender: GAIL LUNA MD [place] [facility] 01:30:00 PM EST [facility] ([facility] Office Visit Attender: Thom Lynch MD Main office - [facility] 04/20/2020 01:15:00 PM EST [facility] ([facility] ) Outpatient Attender: LISA MORE MDConsultant: STAFF NON 04/13/2020 07:26:00 AM EST - 04/13/2020 07:36:00 AM EST [facility] Outpatient Attender: LISA MORE MDConsultant: STAFF NON 04/10/2020 03:31:00 PM EST - 04/10/2020 03:41:00 PM EST [facility] Outpatient Attender: LISA MORE MDConsultant: STAFF NON 04/06/2020 02:43:00 PM EST - 04/06/2020 02:53:00 PM EST [facility] Outpatient Attender: LISA MORE MDConsultant: STAFF NON 04/03/2020 07:22:00 PM EST - 04/03/2020 07:32:00 PM EST [facility] Outpatient Attender: LISA MORE MDConsultant: STAFF NON 03/30/2020 03:52:00 PM EST - 03/30/2020 04:02:00 PM EST [facility] Outpatient Attender: LISA MORE MDConsultant: STAFF NON 03/27/2020 01:59:00 PM EST - 03/27/2020 02:09:00 PM EST [facility] Outpatient Attender: LISA MORE MDConsultant: STAFF NON 03/23/2020 04:49:00 PM EST - 03/23/2020 04:59:00 PM EST [facility] Outpatient Attender: LISA MORE MDConsultant: STAFF NON 03/16/2020 07:01:00 AM EST - 03/16/2020 07:11:00 AM EST [facility] Outpatient Attender: LISAANA MARIA MORE MDConsultant: STAFF NON 02/22/2020 07:32:00 AM EST - 02/22/2020 07:42:00 AM EST [facility] Outpatient Attender: LISA MORE MDConsultant: STAFF NON 02/17/2020 07:03:00 AM EST - 02/17/2020 07:13:00 AM EST [facility] Outpatient Attender: LISA HENSONEL MDConsultant: STAFF NON 01/22/2020 07:15:00 AM EDT - 01/22/2020 07:25:00 AM EDT [facility] Outpatient Attender: Thom Lynch MD Main office [facility] 01/11/2020 10:00:00 AM EDT [facility] ([facility] ) Outpatient Attender: GAIL LUNA MD [place] [facility] 03:00:00 PM EDT [facility] Outpatient Attender: JAY SALGADO [facility] Office 11/30 01:45:00 PM EDT [facility] ([facility] Outpatient Attender: Nancy SANCHEZ Main Office 12/13/2019 11:15:00 AM EDT [facility] ([facility]) Outpatient Attender: GAIL LUNA MD [place] [facility] 02:45:00 PM EDT [facility] Outpatient Attender: GAIL LUNA MD [place] [facility] 03:20:00 PM EDT [facility] Outpatient Attender: GAIL LUNA MD [place] [facility] 02:30:00 PM EDT [facility] Inpatient Attender: Phoebe Sosa MDAttender: JORGE FERNANDEZ PAAdmitter: Phoebe Sosa MD EMERGENCY ROOM- 10/26/2019 04:04:00 PM EDT - 10/27/2019 02:20:00 PM [facility] Patient discharged. Outpatient Attender: GAIL [facility] 02:30:00 PM EDT [facility] ([facility] Outpatient Referrer: Vanessa Garcia NP 09/27/2019 05:21:00 AM EDT [facility] Outpatient Attender: GAIL LUNA MD [place] [facility] 03:20:00 PM EDT [facility] ([facility] Outpatient Attender: Nancy SANCHEZ Main Office 09/09/2019 07:45:00 AM EDT [facility] ([facility]) Outpatient Attender: GAIL [facility] Office 05/2019 03:40:00 PM EDT [facility] Outpatient Attender: GAIL [facility] Office 02:00:00 PM EDT [facility] Outpatient Referrer: Vanessa Garcia NP 08/15/2019 07:27:00 AM EDT [facility] Outpatient Referrer: Vanessa Garcia NP 08/06/2019 05:54:00 AM EDT [facility] Outpatient Referrer: Vanessa Garcia NP 07/27/2019 05:52:00 AM EDT [facility] Outpatient Attender: Nancy SANCHEZ Main Office 07/06/2019 09:30:00 AM EDT [facility] ([facility]) Outpatient Attender: GAIL Wong Office 12:00:00 PM EST [facility] ([facility] Outpatient Attender: Nancy SANCHEZ Main Office 05/14/2019 11:45:00 AM EST [facility] ([facility]) Outpatient Attender: Jose Lewis MD [facility] 05/05/2019 01:32:4 8 PM EST [facility] Outpatient Attender: GAIL Wong Office 12:45:00 PM EST [facility] ([facility] Outpatient Referrer: Vanessa Garcia NP 04/15/2019 09:27:00 PM EST [facility] Outpatient Attender: Nancy SANCHEZ Main Office 04/13/2019 06:45:00 AM EST [facility] ([facility]) Outpatient Attender: Nancy SANCHEZ Main Office 04/08/2019 07:00:00 AM EST [facility] ([facility]) Outpatient Referrer: Vanessa Garcia NP 04/07/2019 04:35:00 PM EST [facility] Outpatient Referrer: Vanessa Garcia NP 04/07/2019 04:34:00 PM EST [facility] Immunizations Vaccine Date Status Description Data Source(s) New in 2012. IIV4 11/26/2019 02:50:00 PM EDT completed [facility] ([facility] Medications Medication Brand Name Start Date Product Form Dose Route Admi nistrative Instructions Pharmacy Instructions Status Indications Reaction Description Data Source(s) Atenolol 25 MG Oral Tablet ATENOLOL 05/10/2020 12:00:00 AM EST tablet 180 TAKE ONE TABLET BY MOUTH TWICE A DAY TAKE ONE TABLET BY MOUTH TWICE A DAY SOLD: 05/11/2020 [facility] 160-4.5 mcg/actuation 05/10/2020 12:00:00 AM EST HFA aerosol inhaler 10 INHALE TWO PUFFS BY MOUTH TWICE A DAY INHALE TWO PUFFS BY MOUTH TWICE A DAY SOLD: 05/11/2020 [facility] 500 mg 05/10/2020 12:00:00 AM EST tablet 180 TAKE ONE TABLET BY MOUTH TWICE A DAY TAKE ONE TABLET BY MOUTH TWICE A DAY SOLD: 05/11/2020 [facility] Paroxetine Hydrochloride 10 MG Oral Tablet PAROXETINE HCL 05/10/2020 12:00:00 AM EST tablet 90 TAKE ONE TABLET BY MOUTH EVA DAY TAKE ONE TABLET BY MOUTH EVERY DAY SOLD: 05/11/2020 [facility] 100 mg 05/10/2020 12:00:00 AM EST capsule 90 TAKE ONE CAPSULE BY MOUTH THREE TIMES A DAY TAKE ONE CAPSULE BY MOUTH THREE TIMES A DAY SOLD: 05/11/2020 [facility] 2.5 mg 05/10/2020 12:00:00 AM EST tablet 30 TAKE ONE TABLET BY MOUTH AT BEDTIME TAKE ONE TABLET BY MOUTH AT BEDTIME SOLD: 05/11/2020 [facility] 45 mcg/actuation 05/10/2020 12:00:00 AM EST HFA aerosol inha ler 15 INHALE TWO PUFFS BY MOUTH EVERY 4 HOURS NEEDED INHALE TWO PUFFS BY MOUTH EVERY 4 HOURS NEEDED SOLD: 05/11/2020 [facility] 600 mg(1,500mg) -400 unit 05/02/2020 12:00:00 AM EST tablet 90 TAKE ONE TABLET BY MOUTH EVERY DAY TAKE ONE TABLET BY MOUTH EVERY DAY SOLD: 05/02/2020 [facility] 20 mg 05/02/2020 12:00:00 AM EST tablet 90 TAKE ONE TABLET BY MOUTH EVERY DAY TAKE ONE TABLET BY MOUTH EVERY DAY SOLD: 05/02/2020 [facility] torsemide 20 MG Oral Tablet Torsemide 05/01/2020 12:00:00 AM EST ORAL active [facility] ([facility]) 12.5 mg 04/28/2020 12:00:00 AM EST capsule 90 TAKE ONE CAPSULE BY MOUTH EVERY DAY TAKE ONE CAPSULE BY MOUTH EVERY DAY SOLD: 04/28/2020 [facility] Hydrochlorothiazide 12.5 MG Oral Capsule Hydrochlorothiazide 04/27/2020 12:00:00 AM EST ORAL active [facility] ([facility] 120 mg 04/16/2020 12:00:00 AM EST tablet 30 TAKE ONE TABLET BY MOUTH EVERY DAY FOR ABNORMAL HEART RHYTHM TAKE ONE TABLET BY MOUTH EVERY DAY FOR A BNORMAL HEART RHYTHM SOLD: 04/16/2020 [facility] 100 mg 04/15/2020 12:00:00 AM EST capsule 90 TAKE ONE CAPSULE BY MOUTH THREE TIMES A DAY FOR PAIN TAKE ONE CAPSULE BY MOUTH THREE TIMES A DAY FOR PAIN S OLD: 04/15/2020 [facility] 2.5 mg 04/15/2020 12:00:00 AM EST tablet 60 TAKE ONE TABLET BY MOUTH TWICE A DAY TO PREVENT BLOOD CLOTS TAKE ONE TABLET BY MOUTH TWICE A DAY TO PREVENT BLOOD CLOTS SOLD: 04/15/2020 [facility] 500 mg 04/15/2020 12:00:00 AM EST tablet 60 TAKE ONE TABLET BY MOUTH TWICE A DAY FOR SEIZURES TAKE ONE TABLET BY MOUTH TWICE A DAY FOR SEIZURES SOLD : 04/15/2020 [facility] 200 mg 04/14/2020 12:00:00 AM EST tablet 30 TAKE ONE TABLET BY MOUTH TWICE A DAY FOR ABNORMAL HEART RYTHM TAKE ONE TABLET BY MOUTH TWICE A DAY FOR ABNORMAL HEART RYTHM SOLD: 04/14/2020 [facility] 0.4 mg 04/14/2020 12:00:00 AM EST capsule 30 TAKE ONE CAPSULE BY MOUTH EVERY DAY 30 MINUTES AFTER THE SAME MEAL EACH DAY FOR BENIGN PROSTATIC HYPERPLASIA TAKE ONE CAPSULE BY MOUTH EVERY DAY 30 MINUTES AFTER THE SAME MEAL EACH DAY FOR BENIGN PROSTATIC HYPERPLASIA SOLD: 04/14/2020 [facility] Finasteride 5 MG Oral Tablet FINASTERIDE 04/14/2020 12:00:00 AM EST ta blet 30 TAKE ONE TABLET BY MOUTH EVERY DAY FOR BENIGN PROSTATIC HYPERPLASIA *WEAR GLOVES WHEN HANDLING/CRUSHING* TAKE ONE TABLET BY MOUTH EVERY DAY FOR B ENIGN PROSTATIC HYPERPLASIA *WEAR GLOVES WHEN HANDLING/CRUSHING* SOLD: 04/14/2020 [facility] Paroxetine Hydrochloride 10 MG Oral Tablet PAROXETINE HCL 04/14/2020 12:00:00 AM EST tablet 30 TAKE ONE TABLET BY MOUTH EVA DAY FOR DEPRESSION TAKE ONE TABLET BY MOUTH EVERY DAY FOR DEPRESSION SOLD: 04/14/2020 [facility] 2.5 mg 04/14/2020 12:00:00 AM EST tablet 30 TAKE ONE TABLET BY MOUTH AT BEDTIME TAKE ONE TABLET BY MOUTH AT BEDTIME SOLD: 04/14/2020 [facility] 40 mg 04/14/2020 12:00:00 AM EST capsule,delayed release (DR/EC) 30 TAKE ONE CAPSULE BY MOUTH EVERY DAY FOR GERD TAKE ONE CAPSULE BY MOUTH EVERY DAY FOR GERD SOLD: 04/14/2020 [facility] 160-4.5 mcg/actuation 04/14/2020 12:00:00 AM EST HFA aerosol inhaler 10 INHALE TWO PUFFS BY MOUTH TWICE A DAY FOR COPD INHALE TWO PUFFS BY MOUTH TWICE A DAY FOR COPD SOLD: 04/14/2020 [facility] 45 mcg/actuation 04/14/2020 12:00:00 AM EST HFA aerosol inha ler 15 INHALE TWO PUFFS BY MOUTH EVERY 6 HOURS NEEDED FOR SHORTNESS OF BREATH INHALE TWO PUFFS BY MOUTH EVERY 6 HOURS NEEDED FOR SHORTNESS OF BREATH SOLD: 04/14/2020 [facility] Atenolol 25 MG Oral Tablet ATENOLOL 04/14/2020 12:00:00 AM EST tablet 60 TAKE ONE TABLET BY MOUTH TWICE A DAY FOR HYPERTENSION TAKE ONE TABLET BY MOUTH TWICE A DAY FOR HYPERTENSION SOLD: 04/14/2020 [facility] 5 mg 04/14/2020 12:00:00 AM EST tablet 30 TAKE ONE TABLET BY MOUTH EVERY DAY FOR COPD TAKE ONE TABLET BY MOUTH EVERY DAY FOR COPD SOLD: 04/14/2020 [facility] 0.25 mg 04/14/2020 12:00:00 AM EST tablet 30 TAKE ONE TABLET BY MOUTH AT BEDTIME FOR STIFFNESS, TREMORS, MUSCLE SPASMS AND POOR MUSCLE CONTROL TAKE ONE TABLET BY MOUTH AT BEDTIME FOR STIFFNESS, TREMORS, MUSCLE SPASMS AND POOR MUSCLE CONTROL SOLD: 04/14/2020 [facility] 250 mg 01/21/2020 12:00:00 AM EDT tablet 120 TAKE TWO TABLETS BY MOUTH TWICE A DAY TAKE TWO TABLETS BY MOUTH TWICE A DAY SOLD: 01/22/2020 [facility] 0.25 mg 12/26/2019 12:00:00 AM EDT tablet 90 TAKE ONE TABLET BY MOUTH AT BEDTIME TAKE ONE TABLET BY MOUTH AT BEDTIME SOLD: 05/11/2020 [facility] 0.25 mg 12/26/2019 12:00:00 AM EDT tablet 90 TAKE ONE TABLET BY MOUTH AT BEDTIME TAKE ONE TABLET BY MOUTH AT BEDTIME SOLD: 12/26/2019 [facility] ropinirole 0.25 MG Oral Tablet Ropinirole HCL 12/24/2019 12:00:00 AM E DT active [facility] ([facility] ropinirole 0.25 MG Oral Tablet Ropinirole HCL 12/24/2019 12:00:00 AM E DT active [facility] ([facility] 200 mg 12/23/2019 12:00:00 AM EDT tablet 30 TAKE ONE TABLET BY MOUTH EVERY DAY TAKE ONE TABLET BY MOUTH EVERY DAY SOLD: 12/26/2019 [facility] Amiodarone hydrochloride 200 MG Oral Tablet AMIODARONE HCL 12/23/2019 12:00:00 AM EDT tablet 30 TAKE ONE TABLET BY MOUTH EVA DAY TAKE ONE TABLET BY MOUTH EVERY DAY SOLD: 05/11/2020 [facility] 0.4 mg 12/14/2019 12:00:00 AM EDT capsule 90 TAKE ONE CAPSULE BY MOUTH AT BEDTIME MAXIMUM DAILY DOSE = ONE CAPSULE TAKE ONE CAPSULE BY MOUTH AT BEDTIME MAXIMUM DAILY DOSE = ONE CAPSULE SOLD: 12/16/2019 [facility] 0.4 mg 12/14/2019 12:00:00 AM EDT capsule 90 TAKE ONE CAPSULE BY MOUTH AT BEDTIME MAXIMUM DAILY DOSE = ONE CAPSULE TAKE ONE CAPSULE BY MOUTH AT BEDTIME MAXIMUM DAILY DOSE = ONE CAPSULE SOLD: 05/11/2020 [facility] 5 mg 12/13/2019 12:00:00 AM EDT tablet 90 TAKE ONE TABLET BY MOUTH THREE TIMES A DAY NEEDED FOR NAUSEA TAKE ONE TABLET BY MOUTH THREE TIMES A D AY NEEDED FOR NAUSEA SOLD: 12/16/2019 [facility] Megestrol Acetate 125 MG/ML Oral Suspension Megestrol Acetat e 12/12/2019 12:00:00 AM EDT ORAL active M [facility] ([facility]) ferrous gluconate 324 MG Oral Tablet Ferrous Gluconate 12:00:00 AM EDT ORAL active [facility] ([facility]) Docusate Sodium 100 MG Oral Capsule Stool Softener 12/12/2019 12:00 :00 AM EDT ORAL active [facility] ([facility]) Paroxetine HCL Paroxetine HCL 12/12/2019 12:00:00 AM EDT ORAL active [facility] ([facility]) Cholecalciferol 5000 UNT Oral Capsule Vitamin D3 12/12/2019 12:00:00 AM EDT ORAL active [facility] ([facility]) Tamsulosin hydrochloride 0.4 MG Oral Capsule Tamsulosin HCL 12/12/2019 12:00:00 AM EDT ORAL active [facility] ([facility]) Tamsulosin hydrochloride 0.4 MG Oral Capsule Tamsulosin HCL 12/09/2019 12:00:00 AM EDT active [facility] ([facility] Tamsulosin hydrochloride 0.4 MG Oral Capsule Tamsulosin HCL 12/09/2019 12:00:00 AM EDT active [facility] ([facility] Docusate Sodium 100 MG Oral Capsule [Colace] Colace 11/2019 12:00:00 AM EDT ORAL active [facility] ( [facility] Docusate Sodium 100 MG Oral Capsule [Colace] Colace 11/2019 12:00:00 AM EDT ORAL active [facility] ( [facility] Finasteride 5 MG Oral Tablet FINASTERIDE 12/07/2019 12:00:00 AM EDT ta blet 90 TAKE ONE TABLET BY MOUTH EVERY DAY MAXIMUM DAILY DOSE = 1 TAKE ONE TABLET BY MOUTH EVERY DAY MAXIMUM DAILY DOSE = 1 SOLD: 12/12/2019 [facility] 2.5 mg 12/07/2019 12:00:00 AM EDT tablet 60 TAKE ONE TABLET BY MOUTH TWICE A DAY TAKE ONE TABLET BY MOUTH TWICE A DAY SOLD: 05/11/2020 [facility] Finasteride 5 MG Oral Tablet FINASTERIDE 12/07/2019 12:00:00 AM EDT ta blet 90 TAKE ONE TABLET BY MOUTH EVERY DAY MAXIMUM DAILY DOSE = 1 TAKE ONE TABLET BY MOUTH EVERY DAY MAXIMUM DAILY DOSE = 1 SOLD: 05/11/2020 [facility] 2.5 mg 12/07/2019 12:00:00 AM EDT tablet 60 TAKE ONE TABLET BY MOUTH TWICE A DAY TAKE ONE TABLET BY MOUTH TWICE A DAY SOLD: 01/22/2020 [facility] 2.5 mg 12/07/2019 12:00:00 AM EDT tablet 60 TAKE ONE TABLET BY MOUTH TWICE A DAY TAKE ONE TABLET BY MOUTH TWICE A DAY SOLD: 12/12/2019 [facility] 50 mg 11/13/2019 12:00:00 AM EDT tablet 120 TAKE ONE TABLET BY MOUTH EVERY 6 HOURS NEEDED FOR PAIN MAXIMUM DAILY DOSE = FOUR TABLETS TAKE ONE TABLET BY MOUTH EVERY 6 HOURS NEEDED FOR PAIN MAXIMUM DAILY DOSE = FOUR TABLETS SOLD: 01/15/2020 [facility] 4 mg 11/13/2019 12:00:00 AM EDT tablet 30 TAKE ONE TABLET BY MOUTH EVERY 6 HOURS NEEDED FOR NAUSEA TAKE ONE TABLET BY MOUTH EVERY 6 HOURS A S NEEDED FOR NAUSEA SOLD: 11/14/2019 [facility] 50 mg 11/13/2019 12:00:00 AM EDT tablet 120 TAKE ONE TABLET BY MOUTH EVERY 6 HOURS NEEDED FOR PAIN MAXIMUM DAILY DOSE = FOUR TABLETS TAKE ONE TABLET BY MOUTH EVERY 6 HOURS NEEDED FOR PAIN MAXIMUM DAILY DOSE = FOUR TABLETS SOLD: 11/14/2019 [facility] 50 mg 11/13/2019 12:00:00 AM EDT tablet 120 TAKE ONE TABLET BY MOUTH EVERY 6 HOURS NEEDED FOR PAIN MAXIMUM DAILY DOSE = FOUR TABLETS TAKE ONE TABLET BY MOUTH EVERY 6 HOURS NEEDED FOR PAIN MAXIMUM DAILY DOSE = FOUR TABLETS SOLD: 04/30/2020 [facility] Megestrol Acetate 125 MG/ML Oral Suspension Megestrol Acetat e 11/12/2019 12:00:00 AM EDT ORAL active [facility] ([facility] 5 mg 11/12/2019 12:00:00 AM EDT tablet 30 TAKE ONE TABLET BY MOUTH EVERY DAY TAKE ONE TABLET BY MOUTH EVERY DAY SOLD: 01/06/2020 [facility] 5 mg 11/12/2019 12:00:00 AM EDT tablet 30 TAKE ONE TABLET BY MOUTH EVERY DAY TAKE ONE TABLET BY MOUTH EVERY DAY SOLD: 05/11/2020 [facility] 5 mg 11/12/2019 12:00:00 AM EDT tablet 30 TAKE ONE TABLET BY MOUTH EVERY DAY TAKE ONE TABLET BY MOUTH EVERY DAY SOLD: 11/14/2019 [facility] 5 mg 11/12/2019 12:00:00 AM EDT tablet 20 TAKE ONE TABLET BY MOUTH EVERY DAY TAKE ONE TABLET BY MOUTH EVERY DAY SOLD: 12/12/2019 [facility] Megestrol Acetate 125 MG/ML Oral Suspension Megestrol Acetat e 11/12/2019 12:00:00 AM EDT ORAL active M [facility] ([facility] 40 mg 10/11/2019 12:00:00 AM EDT tablet 30 TAKE ONE TABLET BY MOUTH EVERY DAY TAKE ONE TABLET BY MOUTH EVERY DAY SOLD: 11/28/2019 [facility] Paroxetine 40 MG Oral Tablet [Paxil] Paxil 10/11/2019 12:00:00 AM EDT ORAL active [facility] ([facility] 40 mg 10/11/2019 12:00:00 AM EDT tablet 30 TAKE ONE TABLET BY MOUTH EVERY DAY TAKE ONE TABLET BY MOUTH EVERY DAY SOLD: 11/07/2019 [facility] 40 mg 10/11/2019 12:00:00 AM EDT tablet 30 TAKE ONE TABLET BY MOUTH EVERY DAY TAKE ONE TABLET BY MOUTH EVERY DAY SOLD: 10/12/2019 [facility] Paroxetine Hydrochloride 40 MG Oral Tablet PAROXETINE HCL 10/11/2019 12:00:00 AM EDT tablet 30 TAKE ONE TABLET BY MOUTH EVA RY DAY TAKE ONE TABLET BY MOUTH EVERY DAY SOLD: 01/06/2020 [facility] Paroxetine 40 MG Oral Tablet [Paxil] Paxil 10/11/2019 12:00:00 AM EDT ORAL active [facility] ([facility] 120 mg 10/06/2019 12:00:00 AM EDT tablet 90 TAKE ONE TABLET BY MOUTH EVERY DAY TAKE ONE TABLET BY MOUTH EVERY DAY SOLD: 10/07/2019 [facility] 120 mg 10/06/2019 12:00:00 AM EDT tablet 90 TAKE ONE TABLET BY MOUTH EVERY DAY TAKE ONE TABLET BY MOUTH EVERY DAY SOLD: 01/06/2020 [facility] Diltiazem Hydrochloride 120 MG Oral Tablet DILTIAZEM HCL 10/06/2019 12:00:00 AM EDT tablet 90 TAKE ONE TABLET BY MOUTH EVA DAY TAKE ONE TABLET BY MOUTH EVERY DAY SOLD: 05/11/2020 [facility] 500 mg 09/24/2019 12:00:00 AM EDT tablet 21 TAKE ONE TABLET BY MOUTH EVERY 8 HOURS TAKE ONE TABLET BY MOUTH EVERY 8 HOURS SOLD: 09/25/2019 [facility] 5 mg 09/24/2019 12:00:00 AM EDT tablet 120 ONE TABLET BY MOUTH BEFORE MEALS AND AT BEDTIME ONE TABLET BY MOUTH BEFORE MEALS AND AT BEDTIME SOLD: 2019 [facility] 20 mg 09/20/2019 12:00:00 AM EDT tablet 30 TAKE ONE TABLET BY MOUTH EVERY DAY TAKE ONE TABLET BY MOUTH EVERY DAY SOLD: 09/20/2019 [facility] 4 mg 09/20/2019 12:00:00 AM EDT tablet 30 TAKE ONE TABLET BY MOUTH EVERY 6 HOURS NEEDED FOR NAUSEA TAKE ONE TABLET BY MOUTH EVERY 6 HOURS A S NEEDED FOR NAUSEA SOLD: 09/20/2019 [facility] Ondansetron 4 MG Oral Tablet [Zofran] Zofran 09/20/2019 12:00:00 AM EDT ORAL active [facility] ([facility] Ondansetron 4 MG Oral Tablet [Zofran] Zofran 09/20/2019 12:00:00 AM EDT ORAL active [facility] ([facility] Paroxetine 20 MG Oral Tablet [Paxil] Paxil 09/20/2019 12:00:00 AM EDT ORAL completed [facility] ([facility] Promethazine Hydrochloride 25 MG Oral Tablet Promethazine HC L 09/17/2019 12:00:00 AM EDT ORAL completed [facility] ([facility] 25 mg 09/17/2019 12:00:00 AM EDT tablet 30 TAKE ONE TABLET BY MOUTH FOUR TIMES A DAY NEEDED TAKE ONE TABLET BY MOUTH FOUR TIMES A DAY NEEDED SO LD: 09/17/2019 [facility] Amiodarone hydrochloride 200 MG Oral Tablet Amiodarone HCL 09/08/2019 12:00:00 AM EDT ORAL active [facility] ([facility]) Atenolol 25 MG Oral Tablet Atenolol 09/08/2019 12:00:00 AM EDT active [facility] ([facility] Oxygen - Home 09/08/2019 12:00:00 AM EDT acti ve [facility] ([facility]) Ketoconazole 20 MG/ML Topical Cream Ketoconazole 09/08/2019 12:00:00 AM EDT active [facility] Diltiazem Hydrochloride 120 MG Oral Tablet Diltiazem HCL 09/08/2019 12:00:00 AM EDT ORAL active [facility]) Magnesium Chloride 535 MG Delayed Release Oral Tablet [Mag 6 4] Mag64 09/08/2019 12:00:00 AM EDT ORAL completed [facility] ([facility]) 50 mg 09/01/2019 12:00:00 AM EDT tablet 120 TAKE ONE TABLET BY MOUTH EVERY 6 HOURS NEEDED FOR PAIN MAXIMUM DAILY DOSE = 4 TABLETS TAKE ONE TABLET BY MOUTH EVERY 6 HOURS NEEDED FOR PAIN MAXIMUM DAILY DOSE = 4 TABLETS SOLD: 09/03/2019 [facility] tramadol hydrochloride 50 MG Oral Tablet Tramadol HCL 08/31/2019 12:00:00 AM EDT ORAL active [facility] ([facility] tramadol hydrochloride 50 MG Oral Tablet Tramadol HCL 08/31/2019 12:00:00 AM EDT ORAL active [facility] ([facility] 0.25 mg 08/30/2019 12:00:00 AM EDT tablet 16 TAKE ONE TABLET BY MOUTH AT BEDTIME TAKE ONE TABLET BY MOUTH AT BEDTIME SOLD: 09/03/2019 [facility] 0.25 mg 08/30/2019 12:00:00 AM EDT tablet 16 TAKE ONE TABLET BY MOUTH AT BEDTIME TAKE ONE TABLET BY MOUTH AT BEDTIME SOLD: 10/03/2019 [facility] 0.25 mg 08/30/2019 12:00:00 AM EDT tablet 19 TAKE ONE TABLET BY MOUTH AT BEDTIME TAKE ONE TABLET BY MOUTH AT BEDTIME SOLD: 12/12/2019 [facility] 0.25 mg 08/30/2019 12:00:00 AM EDT tablet 16 TAKE ONE TABLET BY MOUTH AT BEDTIME TAKE ONE TABLET BY MOUTH AT BEDTIME SOLD: 09/17/2019 [facility] 5 mg 08/23/2019 12:00:00 AM EDT tablet 30 TAKE ONE TABLET BY MOUTH EVERY MORNING TAKE ONE TABLET BY MOUTH EVERY MORNING SOLD: 08/24/2019 [facility] 25 mg 08/17/2019 12:00:00 AM EDT tablet 30 TAKE ONE TABLET BY MOUTH EVERY DAY TAKE ONE TABLET BY MOUTH EVERY DAY SOLD: 08/19/2019 [facility] 4 mg 08/12/2019 12:00:00 AM EDT tablet 30 TAKE ONE TABLET BY MOUTH EVERY 8 HOURS NEEDED FOR NAUSEA TAKE ONE TABLET BY MOUTH EVERY 8 HOURS A S NEEDED FOR NAUSEA SOLD: 08/12/2019 [facility] 0.4 mg 08/10/2019 12:00:00 AM EDT capsule 30 TAKE ONE CAPSULE BY MOUTH AT BEDTIME TAKE ONE CAPSULE BY MOUTH AT BEDTIME SOLD: 08/12/2019 [facility] 5 mg 08/10/2019 12:00:00 AM EDT tablet 30 TAKE ONE TABLET BY MOUTH AT BEDTIME TAKE ONE TABLET BY MOUTH AT BEDTIME SOLD: 08/12/2019 [facility] 160 mg 08/10/2019 12:00:00 AM EDT tablet 30 TAKE ONE TABLET BY MOUTH EVERY DAY TAKE ONE TABLET BY MOUTH EVERY DAY SOLD: 08/12/2019 [facility] 1 gram 08/09/2019 12:00:00 AM EDT tablet 120 TAKE 1 TABLET BY MOUTH AT BEDTIME AND BEFORE MEALS TAKE 1 TABLET BY MOUTH AT BEDTIME AND BEFORE MEALS SOLD: 08/12/2019 [facility] 45 mcg/actuation 08/09/2019 12:00:00 AM EDT HFA aerosol inha ler 15 INHALE TWO PUFFS BY MOUTH EVERY 4 HOURS NEEDED FOR FOR SHORTNESS OF BREATH WHEEZING INHALE TWO PUFFS BY MOUTH EVERY 4 HOURS NEEDED FOR FOR SHORTNESS OF BREATH WHEEZING SOLD: 08/12/2019 [facility] 10 mg 08/09/2019 12:00:00 AM EDT tablet 15 TAKE ONE TABLET BY MOUTH EVERY OTHER DAY TAKE ONE TABLET BY MOUTH EVERY OTHER DAY SOLD: 08/12/2019 [facility] 1 billion cell- 250 mg 08/09/2019 12:00:00 AM EDT tablet 90 TAKE ONE TABLET BY MOUTH THREE TIMES A DAY WITH MEALS OR DIRECTED TAKE ONE TABLET BY MOUTH THREE TIMES A DAY WITH MEALS OR DIRECTED SOLD: 08/12/2019 [facility] 64 mg 08/09/2019 12:00:00 AM EDT tablet,delayed release (DR/EC) 30 TAKE ONE TABLET BY MOUTH EVERY DAY TAKE ONE TABLET BY MOUTH EVERY DAY SOLD: 08/12/2019 [facility] 40 mg 08/09/2019 12:00:00 AM EDT capsule,delayed release (DR/EC) 60 TAKE ONE CAPSULE BY MOUTH EVERY DAY TAKE ONE CAPSULE BY MOUTH EVERY DAY SOLD: 08/12/2019 [facility] 2.5 mg 08/09/2019 12:00:00 AM EDT tablet 60 TAKE ONE TABLET BY MOUTH TWICE A DAY TAKE ONE TABLET BY MOUTH TWICE A DAY SOLD: 08/12/2019 [facility] 2.5 mg 08/09/2019 12:00:00 AM EDT tablet 30 TAKE ONE TABLET BY MOUTH EVERY EVENING TAKE ONE TABLET BY MOUTH EVERY EVENING SOLD: 08/12/2019 [facility] 10 mEq 08/09/2019 12:00:00 AM EDT tablet,ER particles/cry stals 30 TAKE ONE TABLET BY MOUTH AT BEDTIME TAKE ONE TABLET BY MOUTH AT BEDTIME SOLD: 08/12/2019 [facility] 200 mg 08/09/2019 12:00:00 AM EDT tablet 30 TAKE ONE TABLET BY MOUTH EVERY DAY TAKE ONE TABLET BY MOUTH EVERY DAY SOLD: 08/12/2019 [facility] 325 mg (65 mg iron) 08/09/2019 12:00:00 AM EDT tablet 30 TAKE ONE TABLET BY MOUTH EVERY DAY TAKE ONE TABLET BY MOUTH EVERY DAY SOLD: 08/12/2019 [facility] 0.25 mg 08/09/2019 12:00:00 AM EDT tablet 60 TAKE TWO TABLETS BY MOUTH AT BEDTIME TAKE TWO TABLETS BY MOUTH AT BEDTIME SOLD: 08/12/2019 [facility] 100 mg 08/09/2019 12:00:00 AM EDT capsule 30 TAKE ONE CAPSULE BY MOUTH AT BEDTIME TAKE ONE CAPSULE BY MOUTH AT BEDTIME SOLD: 08/12/2019 [facility] 24 HR Diltiazem Hydrochloride 120 MG Extended Release Oral Capsule DILTIAZEM HCL 08/09/2019 12:00:00 AM EDT capsule,extended release 24hr 30 TAKE ONE TABLET BY MOUTH DAILY TAKE ONE TABLET BY MOUTH DAILY SOLD: 08/12/2019 [facility] 160-4.5 mcg/actuation 08/09/2019 12:00:00 AM EDT HFA aerosol inhaler 10 INHALE TWO PUFFS BY MOUTH TWICE A DAY INHALE TWO PUFFS BY MOUTH TWICE A DAY SOLD: 08/12/2019 [facility] 25 mg 06/16/2019 12:00:00 AM EDT tablet 180 TAKE ONE TABLET BY MOUTH TWICE A DAY TAKE ONE TABLET BY MOUTH TWICE A DAY SOLD: 01/06/2020 [facility] 25 mg 06/16/2019 12:00:00 AM EDT tablet 180 TAKE ONE TABLET BY MOUTH TWICE A DAY TAKE ONE TABLET BY MOUTH TWICE A DAY SOLD: 06/21/2019 [facility] 25 mg 06/16/2019 12:00:00 AM EDT tablet 40 TAKE ONE TABLET BY MOUTH TWICE A DAY TAKE ONE TABLET BY MOUTH TWICE A DAY SOLD: 12/12/2019 [facility] 25 mg 06/16/2019 12:00:00 AM EDT tablet 180 TAKE ONE TABLET BY MOUTH TWICE A DAY TAKE ONE TABLET BY MOUTH TWICE A DAY SOLD: 09/17/2019 [facility] Fenofibrate 160 MG Oral Tablet FENOFIBRATE 06/09/2019 12:00:00 AM EDT tablet 26 TAKE ONE TABLET BY MOUTH DAILY MAXIMUM DAILY DOSE = 1 TAKE ONE TABLET BY MOUTH DAILY MAXIMUM DAILY DOSE = 1 SOLD: 12/12/2019 [facility] 160 mg 06/09/2019 12:00:00 AM EDT tablet 90 TAKE ONE TABLET BY MOUTH DAILY MAXIMUM DAILY DOSE = 1 TAKE ONE TABLET BY MOUTH DAILY MAXIMUM DAILY DOSE = 1 SOLD: 06/15/2019 [facility] 160 mg 06/09/2019 12:00:00 AM EDT tablet 90 TAKE ONE TABLET BY MOUTH DAILY MAXIMUM DAILY DOSE = 1 TAKE ONE TABLET BY MOUTH DAILY MAXIMUM DAILY DOSE = 1 SOLD: 09/12/2019 [facility] 50 mg 06/03/2019 12:00:00 AM EST tablet 120 TAKE ONE TABLET BY MOUTH EVERY 6 HOURS NEEDED FOR PAIN MAXIMUM DAILY DOSE = 4 TAKE ONE TABLET BY MOUTH EVERY 6 HOURS NEEDED FOR PAIN MAXIMUM DAILY DOSE = 4 SOLD: 06/04/2019 [facility] 17 gram/dose 05/26/2019 12:00:00 AM EST powder 510 TAKE 1 CAPFUL DISSOLVED IN 4-8 OUNCE OF LIQUID BY MOUTH ONCE DAILY AFTER 3 DAYS WITH NO BOWEL MOVEMENT TAKE 1 CAPFUL DISSOLVED IN 4-8 OUNCE OF LIQUID BY MOUTH ONCE DAILY AFTER 3 DAYS WITH NO BOWEL MOVEMENT SOLD: 08/12/2019 [facility] 17 gram/dose 05/26/2019 12:00:00 AM EST powder 510 TAKE 1 CAPFUL DISSOLVED IN 4-8 OUNCE OF LIQUID BY MOUTH ONCE DAILY AFTER 3 DAYS WITH NO BOWEL MOVEMENT TAKE 1 CAPFUL DISSOLVED IN 4-8 OUNCE OF LIQUID BY MOUTH ONCE DAILY AFTER 3 DAYS WITH NO BOWEL MOVEMENT SOLD: 06/04/2019 [facility] 17 gram/dose 05/26/2019 12:00:00 AM EST powder 510 TAKE 1 CAPFUL DISSOLVED IN 4-8 OUNCE OF LIQUID BY MOUTH ONCE DAILY AFTER 3 DAYS WITH NO BOWEL MOVEMENT TAKE 1 CAPFUL DISSOLVED IN 4-8 OUNCE OF LIQUID BY MOUTH ONCE DAILY AFTER 3 DAYS WITH NO BOWEL MOVEMENT SOLD: 09/12/2019 [facility] 17 gram/dose 05/26/2019 12:00:00 AM EST powder 510 TAKE 1 CAPFUL DISSOLVED IN 4-8 OUNCE OF LIQUID BY MOUTH ONCE DAILY AFTER 3 DAYS WITH NO BOWEL MOVEMENT TAKE 1 CAPFUL DISSOLVED IN 4-8 OUNCE OF LIQUID BY MOUTH ONCE DAILY AFTER 3 DAYS WITH NO BOWEL MOVEMENT SOLD: 07/07/2019 [facility] 40 mg 05/15/2019 12:00:00 AM EST capsule,delayed release (DR/EC) 90 TAKE ONE CAPSULE BY MOUTH EVERY DAY TAKE ONE CAPSULE BY MOUTH EVERY DAY SOLD: 12/16/2019 [facility] [facility] 40 mg 05/15/2019 12:00:00 AM EST capsule,delayed release (DR/EC) 90 TAKE ONE CAPSULE BY MOUTH EVERY DAY TAKE ONE CAPSULE BY MOUTH EVERY DAY SOLD: 05/11/2020 [facility] 40 mg 05/15/2019 12:00:00 AM EST capsule,delayed release (DR/EC) 90 TAKE ONE CAPSULE BY MOUTH EVERY DAY TAKE ONE CAPSULE BY MOUTH EVERY DAY SOLD: 05/17/2019 [facility] 40 mg 05/15/2019 12:00:00 AM EST capsule,delayed release (DR/EC) 34 TAKE ONE CAPSULE BY MOUTH EVERY DAY TAKE ONE CAPSULE BY MOUTH EVERY DAY SOLD: 09/25/2019 [facility] 40 mg 05/15/2019 12:00:00 AM EST capsule,delayed release (DR/EC) 49 TAKE ONE CAPSULE BY MOUTH EVERY DAY TAKE ONE CAPSULE BY MOUTH EVERY DAY SOLD: 11/14/2019 [facility] 200 mg 05/03/2019 12:00:00 AM EST tablet 90 TAKE ONE TABLET BY MOUTH EVERY DAY TAKE ONE TABLET BY MOUTH EVERY DAY SOLD: 05/05/2019 [facility] 5 mg 04/19/2019 12:00:00 AM EST tablet 30 TAKE 1 & 1/2 TABLET BY MOUTH ONCE DAILY TAKE 1 & 1/2 TABLET BY MOUTH ONCE DAILY SOLD: 04/23/2019 [facility] 5 mg 04/19/2019 12:00:00 AM EST tablet 30 TAKE 1 & 1/2 TABLET BY MOUTH ONCE DAILY TAKE 1 & 1/2 TABLET BY MOUTH ONCE DAILY SOLD: 06/15/2019 [facility] 5 mg 04/19/2019 12:00:00 AM EST tablet 30 TAKE 1 & 1/2 TABLET BY MOUTH ONCE DAILY TAKE 1 & 1/2 TABLET BY MOUTH ONCE DAILY SOLD: 05/17/2019 [facility] 2.5 mg 04/13/2019 12:00:00 AM EST tablet 60 TAKE ONE TABLET BY MOUTH TWICE A DAY TAKE ONE TABLET BY MOUTH TWICE A DAY SOLD: 09/12/2019 [facility] 2.5 mg 04/13/2019 12:00:00 AM EST tablet 60 TAKE ONE TABLET BY MOUTH TWICE A DAY TAKE ONE TABLET BY MOUTH TWICE A DAY SOLD: 11/07/2019 [facility] 2.5 mg 04/13/2019 12:00:00 AM EST tablet 60 TAKE ONE TABLET BY MOUTH TWICE A DAY TAKE ONE TABLET BY MOUTH TWICE A DAY SOLD: 10/12/2019 [facility] 2.5 mg 04/13/2019 12:00:00 AM EST tablet 60 TAKE ONE TABLET BY MOUTH TWICE A DAY TAKE ONE TABLET BY MOUTH TWICE A DAY SOLD: 06/15/2019 [facility] 2.5 mg 04/13/2019 12:00:00 AM EST tablet 60 TAKE ONE TABLET BY MOUTH TWICE A DAY TAKE ONE TABLET BY MOUTH TWICE A DAY SOLD: 05/14/2019 [facility] 2.5 mg 04/13/2019 12:00:00 AM EST tablet 60 TAKE ONE TABLET BY MOUTH TWICE A DAY TAKE ONE TABLET BY MOUTH TWICE A DAY SOLD: 04/14/2019 [facility] tramadol hydrochloride 50 MG Oral Tablet Tramadol HCL 04/07/2019 12:00:00 AM EST ORAL active [facility] Amiodarone hydrochloride 200 MG Oral Tablet Amiodarone HCL 04/07/2019 12:00:00 AM EST ORAL completed [facility] ([facility]) Ondansetron 4 MG Oral Tablet [Zofran] Zofran 04/07/2019 12:00:00 AM EST active [facility] ([facility] Atenolol 25 MG Oral Tablet Atenolol 04/07/2019 12:00:00 AM EST ORAL completed [facility] ([facility]) 25 mg 04/04/2019 12:00:00 AM EST tablet 60 TAKE ONE TABLET BY MOUTH TWICE A DAY TAKE ONE TABLET BY MOUTH TWICE A DAY SOLD: 04/04/2019 [facility] 200 mg 04/04/2019 12:00:00 AM EST tablet 30 TAKE ONE TABLET BY MOUTH EVERY DAY TAKE ONE TABLET BY MOUTH EVERY DAY SOLD: 04/04/2019 [facility] 50 mg 03/26/2019 12:00:00 AM EST tablet 120 TAKE ONE TABLET BY MOUTH EVERY 6 HOURS NEEDED FOR PAIN MAXIMUM DAILY DOSE = 4 TABLETS TAKE ONE TABLET BY MOUTH EVERY 6 HOURS NEEDED FOR PAIN MAXIMUM DAILY DOSE = 4 TABLETS SOLD: 04/02/2019 [facility] 0.25 mg 02/26/2019 12:00:00 AM EST tablet 90 TAKE ONE TABLET BY MOUTH AT BEDTIME TAKE ONE TABLET BY MOUTH AT BEDTIME SOLD: 06/04/2019 [facility] 5 mg 12/09/2018 12:00:00 AM EDT tablet 30 TAKE ONE TABLET BY MOUTH EVERY DAY TAKE ONE TABLET BY MOUTH EVERY DAY SOLD: 10/17/2019 [facility] 5 mg 12/09/2018 12:00:00 AM EDT tablet 30 TAKE ONE TABLET BY MOUTH EVERY DAY TAKE ONE TABLET BY MOUTH EVERY DAY SOLD: 09/17/2019 [facility] 5 mg 12/09/2018 12:00:00 AM EDT tablet 30 TAKE ONE TABLET BY MOUTH EVERY DAY TAKE ONE TABLET BY MOUTH EVERY DAY SOLD: 07/07/2019 [facility] 5 mg 12/09/2018 12:00:00 AM EDT tablet 30 TAKE ONE TABLET BY MOUTH EVERY DAY TAKE ONE TABLET BY MOUTH EVERY DAY SOLD: 08/12/2019 [facility] 5 mg 12/09/2018 12:00:00 AM EDT tablet 30 TAKE ONE TABLET BY MOUTH EVERY DAY TAKE ONE TABLET BY MOUTH EVERY DAY SOLD: 05/05/2019 [facility] 5 mg 12/09/2018 12:00:00 AM EDT tablet 30 TAKE ONE TABLET BY MOUTH EVERY DAY TAKE ONE TABLET BY MOUTH EVERY DAY SOLD: 06/04/2019 [facility] 5 mg 12/09/2018 12:00:00 AM EDT tablet 30 TAKE ONE TABLET BY MOUTH EVERY DAY TAKE ONE TABLET BY MOUTH EVERY DAY SOLD: 04/04/2019 [facility] 50 mg 11/21/2018 12:00:00 AM EDT tablet 87 TAKE ONE TABLET BY MOUTH THREE TIMES A DAY TAKE ONE TABLET BY MOUTH THREE TIMES A DAY SOLD: 05/18/2019 [facility] 0.4 mg 09/17/2018 12:00:00 AM EDT capsule 90 TAKE ONE CAPSULE BY MOUTH AT BEDTIME TAKE ONE CAPSULE BY MOUTH AT BEDTIME SOLD: 06/15/2019 [facility] 0.4 mg 09/17/2018 12:00:00 AM EDT capsule 90 TAKE ONE CAPSULE BY MOUTH AT BEDTIME TAKE ONE CAPSULE BY MOUTH AT BEDTIME SOLD: 03/22/2019 [facility] 0.4 mg 09/17/2018 12:00:00 AM EDT capsule 90 TAKE ONE CAPSULE BY MOUTH AT BEDTIME TAKE ONE CAPSULE BY MOUTH AT BEDTIME SOLD: 09/12/2019 [facility] 5 mg 09/17/2018 12:00:00 AM EDT tablet 90 TAKE ONE TABLET BY MOUTH EVERY DAY TAKE ONE TABLET BY MOUTH EVERY DAY SOLD: 06/15/2019 [facility] 5 mg 09/17/2018 12:00:00 AM EDT tablet 90 TAKE ONE TABLET BY MOUTH EVERY DAY TAKE ONE TABLET BY MOUTH EVERY DAY SOLD: 09/12/2019 [facility] 100 mg 09/10/2018 12:00:00 AM EDT tablet 170 TAKE ONE TABLET BY MOUTH TWICE A DAY TAKE ONE TABLET BY MOUTH TWICE A DAY SOLD: 06/15/2019 [facility] 120 mg 08/11/2018 12:00:00 AM EDT tablet 90 TAKE ONE TABLET BY MOUTH EVERY DAY TAKE ONE TABLET BY MOUTH EVERY DAY SOLD: 06/15/2019 [facility] 10 mg 07/06/2018 12:00:00 AM EDT tablet 90 TAKE ONE TABLET BY MOUTH EVERY DAY TAKE ONE TABLET BY MOUTH EVERY DAY SOLD: 05/14/2019 [facility] 5 mg 07/06/2018 12:00:00 AM EDT tablet 30 TAKE 1 & 1/2 TABLET BY MOUTH ONCE DAILY TAKE 1 & 1/2 TABLET BY MOUTH ONCE DAILY SOLD: 04/02/2019 [facility] 40 mg 03/25/2018 12:00:00 AM EST capsule,delayed release (DR/EC) 90 TAKE ONE CAPSULE BY MOUTH EVERY DAY TAKE ONE CAPSULE BY MOUTH EVERY DAY SOLD: 03/22/2019 [facility] Insurance Providers Payer name Policy type / Coverage type Policy ID Covered republican ID Covered republican's relationship to sierra Policy [place] Plan Information WELLCARE [id number] SP [id number] WELLCARE -O/P [id number] 18 [id number] SELF PAY ONLY [id number] SP [id number] WELLCARE O [id number] S [id number] MEDICARE [id number] SP [id number] A WELLCARE HEALTH PLANS [id number] S [id number] MEDICARE [id number] SP [id number] WELLCARE [id number] SP [id number] WELLCARE MEDICARE [id number] [place] [id number] Today's Options Ppo Commercial [id number] Self [id number] Today's Options PFFS Commercial [id number] Self [id number] Medicare (Part B) Medicare Primary [id number] Self [id number] Wellcare MCR Advantage Commercial [id number] Self [id number] Today's Options PFFS Commercial [id number] Self [id number] Today's Options Ppo Commercial [id number] Self [id number] Wellcare MCR - To Ppo Commercial [id number] Self [id number] [facility] [employer] Commercial [id number] Self [id number] [employer] BC/BS Ppo Medigap Part B [id number] Self [id number] Cigna/Conn General Ins Co Medigap Part B [id number] Self [id number] [facility]-Commercial Plan Medigap Part B [id number] Self [id number] [facility] Medicare Commercial [id number] Self [id number] Today's Options Ppo Commercial [id number] Self [id number] Today's Options PFFS Commercial [id number] Self [id number] Medicare (Part B) Medicare Primary [id number] Self [id number] Wellcare MCR Advantage Commercial [id number] Self [id number] Today's Options PFFS Commercial [id number] Self [id number] Today's Options Ppo Commercial [id number] Self [id number] Wellcare MCR - To Ppo Commercial [id number] Self [id number] Today's Options Ppo Commercial [id number] Self [id number] Today's Options PFFS Commercial [id number] Self [id number] Medicare (Part B) Medicare Primary [id number] Self [id number] Wellcare MCR Advantage Commercial [id number] Self [id number] Today's Options PFFS Commercial [id number] Self [id number] Today's Options Ppo Commercial [id number] Self [id number] Wellcare MCR - To Ppo Commercial [id number] Self [id number] Today's Options Ppo Commercial [id number] Self [id number] Today's Options PFFS Commercial [id number] Self [id number] Medicare (Part B) Medicare Primary [id number] Self [id number] Wellcare MCR Advantage Commercial [id number] Self [id number] Today's Options PFFS Commercial [id number] Self [id number] Today's Options Ppo Commercial [id number] Self [id number] Wellcare MCR - To Ppo Commercial [id number] Self [id number] WELLCARE MEDICARE [id number] WELLCARE MEDICARE [id number] [place] [id number] Today's Options Ppo Commercial [id number] Self [id number] Today's Options PFFS Commercial [id number] Self [id number] Medicare (Part B) Medicare Primary [id number] Self [id number] Wellcare MCR Advantage Commercial [id number] Self [id number] Today's Options PFFS Commercial [id number] Self [id number] Today's Options Ppo Commercial [id number] Self [id number] Wellcare MCR - To Ppo Commercial [id number] Self [id number] Today's Options Ppo Commercial [id number] Self [id number] Today's Options PFFS Commercial [id number] Self [id number] Medicare (Part B) Medicare Primary [id number] Self [id number] Wellcare MCR Advantage Commercial [id number] Self [id number] Today's Options PFFS Commercial [id number] Self [id number] Today's Options Ppo Commercial [id number] Self [id number] Wellcare MCR - To Ppo Commercial [id number] Self [id number] Today's Options Ppo Commercial [id number] Self [id number] Today's Options PFFS Commercial [id number] Self [id number] Medicare (Part B) Medicare Primary [id number] Self [id number] Wellcare MCR Advantage Commercial [id number] Self [id number] Today's Options PFFS Commercial [id number] Self [id number] Today's Options Ppo Commercial [id number] Self [id number] Wellcare MCR - To Ppo Commercial [id number] Self [id number] Today's Options Ppo Commercial [id number] Self [id number] Today's Options PFFS Commercial [id number] Self [id number] Medicare (Part B) Medicare Primary [id number] Self [id number] Wellcare MCR Advantage Commercial [id number] Self [id number] Today's Options PFFS Commercial [id number] Self [id number] Today's Options Ppo Commercial [id number] Self [id number] Wellcare MCR - To Ppo Commercial [id number] Self [id number] Today's Options Ppo Commercial [id number] Self [id number] Today's Options PFFS Commercial [id number] Self [id number] Medicare (Part B) Medicare Primary [id number] Self [id number] Wellcare MCR Advantage Commercial [id number] Self [id number] Today's Options PFFS Commercial [id number] Self [id number] Today's Options Ppo Commercial [id number] Self [id number] Wellcare MCR - To Ppo Commercial [id number] Self [id number] Today's Options Ppo Commercial [id number] Self [id number] Today's Options PFFS Commercial [id number] Self [id number] Medicare (Part B) Medicare Primary [id number] Self [id number] Wellcare MCR Advantage Commercial [id number] Self [id number] Today's Options PFFS Commercial [id number] Self [id number] Today's Options Ppo Commercial [id number] Self [id number] Wellcare MCR - To Ppo Commercial [id number] Self [id number] Today's Options Ppo Commercial [id number] Self [id number] Today's Options PFFS Commercial [id number] Self [id number] Medicare (Part B) Medicare Primary [id number] Self [id number] Wellcare MCR Advantage Commercial [id number] Self [id number] Today's Options PFFS Commercial [id number] Self [id number] Today's Options Ppo Commercial [id number] Self [id number] Wellcare MCR - To Ppo Commercial [id number] Self [id number] WELLCARE [id number] SP [id number] TODAYS OPTIONS [id number] SP [id number] TODAYS OPTIONS/SAMOAN O [id number] S [id number] Today's Options Ppo Commercial [id number] Self [id number] Today's Options PFFS Commercial [id number] Self [id number] Medicare (Part B) Medicare Primary [id number] Self [id number] Wellcare MCR Advantage Commercial [id number] Self [id number] Today's Options PFFS Commercial [id number] Self [id number] Today's Options Ppo Commercial [id number] Self [id number] Today's Options Ppo Commercial [id number] Self [id number] Today's Options PFFS Commercial [id number] Self [id number] Medicare (Part B) Medicare Primary [id number] Self [id number] Wellcare MCR Advantage Commercial [id number] Self [id number] Today's Options PFFS Commercial [id number] Self [id number] Today's Options Ppo Commercial [id number] Self [id number] Today's Options Ppo Commercial [id number] Self [id number] Today's Options PFFS Commercial [id number] Self [id number] Medicare (Part B) Medicare Primary [id number] Self [id number] Wellcare MCR Advantage Commercial [id number] Self [id number] Today's Options PFFS Commercial [id number] Self [id number] Today's Options Ppo Commercial [id number] Self [id number] Today's Options Ppo Commercial [id number] Self [id number] Today's Options PFFS Commercial [id number] Self [id number] Medicare (Part B) Medicare Primary [id number] Self [id number] Wellcare MCR Advantage Commercial [id number] Self [id number] Today's Options PFFS Commercial [id number] Self [id number] Today's Options Ppo Commercial [id number] Self [id number] Today's Options Ppo Commercial [id number] Self [id number] Today's Options PFFS Commercial [id number] Self [id number] Medicare (Part B) Medicare Primary [id number] Self [id number] Wellcare MCR Advantage Commercial [id number] Self [id number] Today's Options PFFS Commercial [id number] Self [id number] Today's Options Ppo Commercial [id number] Self [id number] Today's Options Ppo Commercial [id number] Self [id number] Today's Options PFFS Commercial [id number] Self [id number] Medicare (Part B) Medicare Primary [id number] Self [id number] Wellcare MCR Advantage Commercial [id number] Self [id number] Today's Options PFFS Commercial [id number] Self [id number] Today's Options Ppo Commercial [id number] Self [id number] Medicare (Part B) Medicare Primary Self [facility]-Commercial Plan Medigap Part B Self [employer] Commercial Self Today's Options Ppo Commercial Self Today's Options PFFS Commercial Self [employer] BC/BS Ppo Medigap Part B Self Cigna/[employer] Ins Co Medigap Part B Self Wellcare MCR Advantage Commercial Self Today's Options PFFS Commercial Self United [employer] Medicare Commercial Self Today's Options Ppo Commercial Self Today's Option Medicare Commercial Self [place] [employer]-Today's Opt Commercial Self United [employer] Commercial Self Medicare Medicare Primary Self United [employer] Medigap Part B Self Problems, Conditions, and Diagnoses Code Display Name Description Problem Type Effective Dates Data Source(s) [id number] Pressure ulcer of left foot stage 2 Pres sure ulcer of left foot stage 2 Problem 05/01/2020 12:00:00 AM EST [facility] ([facility] [id number] 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 Problem 05/01/2020 12:00:00 AM EST [facility] ([facility] [id number] Chronic diastolic heart failure Chronic diastoli c heart failure Problem 09/09/2019 12:00:00 AM EDT [facility] ([facility] I4891 Unspecified atrial fibrillation Unspecified atrial fib rillation Diagnosis 04/13/2020 07:26:00 AM [facility] Z1152 Invalid ICD10 Description Invalid ICD10 Description Di agnosis 04/10/2020 03:31:00 PM [facility] Z1159 Encounter for screening for other viral diseases Encounter for screening for other viral diseases Diagnosis 04/03/2020 07:22:00 PM [facility] F0390 Unspecified dementia without behavioral disturbance Unspecified dementia without behavioral disturbance Diagnosis 03/16/2020 07:01:[address] [facility] G9341 Metabolic encephalopathy Metabolic encephalopathy Diag nosis 03/16/2020 07:01:00 AM [facility] I10 Essential (primary) hypertension Essential (primary) h ypertension Diagnosis 02/22/2020 07:32:00 AM [facility] R569 Unspecified convulsions Unspecified convulsions Diagno sis 02/22/2020 07:32:00 AM [facility] J449 Chronic obstructive pulmonary disease, u nspecified Chronic obstructive pulmonary disease, unspecified Diagnosis 02/17/2020 07:03:[address] [facility] E8342 Hypomagnesemia Hypomagnesemia Diagnosis 01/22/2020 07:15: 00 AM [facility] E039 Hypothyroidism, unspecified Hypothyroidism, unspecifie d Diagnosis 01/22/2020 07:15:00 AM [facility] E785 Hyperlipidemia, unspecified Hyperlipidemia, unspecifie d Diagnosis 01/22/2020 07:15:00 AM [facility] G9340 Encephalopathy, unspecified Encephalopathy, unspecifie d Diagnosis 01/22/2020 07:15:00 AM [facility] Y93.89 Activity, other specified ACTIVITY, OTHER SPECIFIED Di agnosis 10/26/2019 04:04:00 PM [facility] Y92.[address] in unspeci fied non-institutional (private) residence as the place of occurrence of the external cause UNSP PLACE IN UNSP NON-[facility] (PRIVATE) RESIDENC Diagnosis 10/26/2019 04:04:00 PM [facility] W18.39XA Other fall on same level, initial encoun ter OTHER FALL ON SAME LEVEL, INITIAL ENCOUNTER Diagnosis 10/26/2019 04:04:00 PM [facility] Z87.891 Personal history of nicotine dependence PERSONAL HISTORY OF NICOTINE DEPENDENCE Diagnosis 10/26/2019 04:04:00 PM [facility] Z79.899 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 Diagnosis 10/26/2019 04:04:00 PM [facility] K31.84 Gastroparesis GASTROPARESIS Diagnosis 10/26/2019 04:04:00 PM [facility] N18.9 Chronic kidney disease, unspecified CHRONIC KIDN EY DISEASE, UNSPECIFIED Diagnosis 10/26/2019 04:04:00 PM [facility] I48.91 Unspecified atrial fibrillation UNSPECIFIED ATRI AL FIBRILLATION Diagnosis 10/26/2019 04:04:00 PM [facility] R55 Syncope and collapse SYNCOPE AND COLLAPSE Diagnosis 10/26/2019 04:04:00 PM [facility] D62 Acute posthemorrhagic anemia ACUTE POSTHEMORRHAGIC ANE HENRY Diagnosis 10/26/2019 04:04:00 PM [facility] S40.811A Abrasion of right upper arm, initial enc ounter ABRASION OF RIGHT UPPER ARM, INITIAL ENCOUNTER Diagnosis 10/26/2019 04:04:00 PM [facility] S40.812A Abrasion of left upper arm, initial enco unter ABRASION OF LEFT UPPER ARM, INITIAL ENCOUNTER Diagnosis 10/26/2019 04:04:00 PM EDT [facility] J44.9 Chronic obstructive pulmonary disease, u nspecified CHRONIC OBSTRUCTIVE PULMONARY DISEASE, UNSPECIFIED Diagnosis 10/26/2019 04:04:00 PM EDT [facility] 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 Surgeries/Procedures Procedure Description Date Indications Data Source(s) DEBRIDEMENT SUBCUTANEOUS TISSUE 20 SQ CM/< 04/28/2020 12:00:00 AM EST [facility] ([facility] ELECTROENCEPHALOGRAM W/REC AWAKE&ASLEEP 02/23/2020 12: 00:00 AM EST [facility] ([facility] ELECTROENCEPHALOGRAM W/REC AWAKE&ASLEEP 02/23/2020 12: 00:00 AM EST [facility] ([facility]) DEBRIDEMENT NAIL ANY METHOD 6/> 12/23/2019 12:00:00 AM EDT [facility] ([facility] 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 EVAL IN PERSON 1/DUAL/SLEEVE MAKER LEAD PM 2019 12:00:00 AM EDT [facility] ([facility]) ECG ROUTINE ECG W/LEAST 12 LDS W/I&R 09/09/2019 12:00: 00 AM EDT [facility] ([facility]) ECG ROUTINE ECG W/LEAST 12 LDS W/I&R 07/06/2019 12:00: 00 AM EDT [facility] ([facility]) ECG ROUTINE ECG W/LEAST 12 LDS W/I&R 04/08/2019 12:00: 00 AM EST [facility] ([facility]) Results ID Date Data Source [id number] 05/05/2020 12:51:00 PM EST [facility] [place] Name Value Range Interpretation Code Description Data Pennie rce(s) Supporting Document(s) Leukocytes [#/volume] in Blood by Automated count 12.6 x10E3/uL 3.4-10.8 Above high normal [facility] ([facility] ) A courtesy copy of this report has been sent to the patient, Erythrocytes [#/volume] in Blood by Automated count 4.00 x10E6/u L 4.14-5.80 Below low normal [facility] ([facility] ) A courtesy copy of this report has been sent to the patient, Hemoglobin [Mass/volume] in Blood 11.5 g/dL 13.0-17.7 Below low nor mal [facility] ([facility] A courtesy copy of this report has been sent to the patient, Hematocrit [Volume Fraction] of Blood by Automated count 35.9 % 37.5-51.0 Below low normal [facility] ([facility] ) A courtesy copy of this report has been sent to the patient, Erythrocyte mean corpuscular volume [Entitic volume] by Auto mated count 90 fL 79-97 [facility] ([facility] A courtesy copy of this report has been sent to the patient, Erythrocyte mean corpuscular hemoglobin [Entitic mass] by Automated count 28.8 pg 26.6-33.0 [facility] A courtesy copy of this report has been sent to the patient, Erythrocyte mean corpuscular hemoglobin concentration [Mass/volume] by Automated count 32.0 g/dL 31.5-35.7 [facility] A courtesy copy of this report has been sent to the patient, Platelets [#/volume] in Blood by Automated count 179 x10E3/uL 150-450 [facility] ([facility] A courtesy copy of this report has been sent to the patient, Erythrocyte distribution width [Ratio] by Automated count 18.1 % 11.6-15.4 Above high normal [facility] ([facility] ) A courtesy copy of this report has been sent to the patient, Neutrophils 68 % [facility] ([facility] A courtesy copy of this report has been sent to the patient, Lymphs 8 % [facility] ([facility] A courtesy copy of this report has been sent to the patient, Eosinophils/100 leukocytes in Blood by Automated count 0 % [facility] ([facility] A courtesy copy of this report has been sent to the patient, Monocytes/100 leukocytes in Blood by Automated count 14 % [facility] ([facility] A courtesy copy of this report has been sent to the patient, Basophils/100 leukocytes in Blood by Automated count 1 % [facility] ([facility] A courtesy copy of this report has been sent to the patient, Neutrophils [#/volume] in Blood by Automated count 8.6 x10E3/uL 1.4-7.0 Above high normal [facility] ([facility] ) A courtesy copy of this report has been sent to the patient, Immature cells [#/volume] in Blood Laboratory test result [facility] ([facility] A courtesy copy of this report has been sent to the patient, Lymphocytes [#/volume] in Blood 1.0 x10E3/uL 0.7-3.1 [facility] ([facility] A courtesy copy of this report has been sent to the patient, Eosinophils [#/volume] in Blood by Automated count 0.0 x10E3/uL 0.0-0 .4 [facility] ([facility] A courtesy copy of this report has been sent to the patient, Monocytes [#/volume] in Blood 1.8 x10E3/uL 0.1-0.9 Above high norm al [facility] ([facility] A courtesy copy of this report has been sent to the patient, Basophils [#/volume] in Blood by Automated count 0.1 x10E3/uL 0.0-0.2 [facility] ([facility] A courtesy copy of this report has been sent to the patient, Immature granulocytes/100 leukocytes in Blood by Autom ated count Laboratory test result [facility] A courtesy copy of this report has been sent to the patient, Immature granulocytes [#/volume] in Blood by Automated count Laboratory test result [facility] A courtesy copy of this report has been sent to the patient, Nucleated erythrocytes/100 leukocytes [Ratio] in Blood by Automated count Laboratory test result [facility] ([facility] [place] A courtesy copy of this report has been sent to the patient, Morphology [Interpretation] in Blood Narrative Laboratory test result [facility] ([facility] A courtesy copy of this report has been sent to the patient, Metamyelocytes 4 % 0-0 Above high normal [facility] ([facility] A courtesy copy of this report has been sent to the patient, Bands Laboratory test result [facility] ([facility] A courtesy copy of this report has been sent to the patient, Myelocytes 5 % 0-0 Above high normal [facility] ([facility] A courtesy copy of this report has been sent to the patient, Promyelocytes Laboratory test result [facility] ([facility] A courtesy copy of this report has been sent to the patient, Laboratory test finding (navigational concept) Laboratory test result [facility] ([facility] A courtesy copy of this report has been sent to the patient, Laboratory test finding (navigational concept) Laboratory test result [facility] ([facility] A courtesy copy of this report has been sent to the patient, Laboratory test finding (navigational concept) Laboratory test result [facility] ([facility] A courtesy copy of this report has been sent to the patient, ID Date Data Source [id number] 04/25/2020 02:56:00 PM EST [facility] ([facility] Name Value Range Interpretation Code Description Data Pennie rce(s) Supporting Document(s) Thyrotropin [Units/volume] in Serum or Plasma 1.270 uIU/mL 0.450-4.50 0 [facility] ([facility] ID Date Data Source [id number] 04/25/2020 02:56:00 PM EST [facility] ([facility] Name Value Range Interpretation Code Description Data Pennie rce(s) Supporting Document(s) Glucose [Mass/volume] in Serum or Plasma 193 mg/dL 65-99 Above high normal [facility] ([facility] BUN 17 mg/dL 8-27 [facility] ([facility] Creatinine [Mass/volume] in Serum or Plasma 0.86 mg/dL 0.76-1.27 [facility] ([facility] eGFR If Africn Am 91 mL/min/1.73 [facility] ([facility] eGFR If NonAfricn Am 79 mL/min/1.73 [facility] ([facility] Urea nitrogen/Creatinine [Mass Ratio] in Serum or Plasma 20 1 0-24 [facility] ([facility] Sodium [Moles/volume] in Serum or Plasma 144 mmol/L 134-144 [facility] ([facility] Potassium [Moles/volume] in Serum or Plasma 4.2 mmol/L 3.5-5.2 [facility] ([facility] Carbon dioxide, total [Moles/volume] in Serum or Plasma 30 mmol/ L 20-29 Above high normal [facility] ([facility] ) Chloride [Moles/volume] in Serum or Plasma 102 mmol/L 96-106 [facility] ([facility] Calcium [Mass/volume] in Serum or Plasma 8.3 mg/dL 8.6-10.2 Below low normal [facility] ([facility] Albumin [Mass/volume] in Serum or Plasma 3.4 g/dL 3.6-4.6 Below low normal [facility] ([facility] Protein [Mass/volume] in Serum or Plasma 5.2 g/dL 6.0-8.5 Below low normal [facility] ([facility] Albumin/Globulin [Mass Ratio] in Serum or Plasma 1.9 1.2-2.2 [facility] ([facility] Globulin [Mass/volume] in Serum by calculation 1.8 g/dL 1.5-4.5 [facility] ([facility] Bilirubin.total [Mass/volume] in Serum or Plasma 0.3 mg/dL 0.0-1.2 [facility] ([facility] Aspartate aminotransferase [Enzymatic activity/volume] in Serum or Plasma 15 IU/L 0-40 [facility] ([facility] Alkaline phosphatase [Enzymatic activity/volume] in Serum or Plasma 76 IU/L 39-117 [facility] Alanine aminotransferase [Enzymatic activity/volume] in Seru m or Plasma 14 IU/L 0-44 [facility] ([facility] ID Date Data Source [id number] 04/25/2020 02:56:00 PM EST [facility] ([facility] Name Value Range Interpretation Code Description Data Pennie rce(s) Supporting Document(s) Leukocytes [#/volume] in Blood by Automated count 12.3 x10E3/uL 3.4-10.8 Above high normal [facility] ([facility] ) Erythrocytes [#/volume] in Blood by Automated count 4.03 x10E6/u L 4.14-5.80 Below low normal [facility] ([facility] ) Few schistocytes. Hemoglobin [Mass/volume] in Blood 11.8 g/dL 13.0-17.7 Below low nor mal [facility] ([facility] Erythrocyte mean corpuscular volume [Entitic volume] by Auto mated count 89 fL 79-97 [facility] ([facility] Hematocrit [Volume Fraction] of Blood by Automated count 36.0 % 37.5-51.0 Below low normal [facility] ([facility] ) Erythrocyte mean corpuscular hemoglobin [Entitic mass] by Automated count 29.3 pg 26.6-33.0 [facility] Erythrocyte mean corpuscular hemoglobin concentration [Mass/volume] by Automated count 32.8 g/dL 31.5-35.7 [facility] Erythrocyte distribution width [Ratio] by Automated count 18.2 % 11.6-15.4 Above high normal [facility] ([facility] ) Platelets [#/volume] in Blood by Automated count 182 x10E3/uL 150-450 [facility] ([facility] Neutrophils 72 % [facility] ([facility] Lymphs 6 % [facility] ([facility] Eosinophils/100 leukocytes in Blood by Automated count 0 % [facility] ([facility] Monocytes/100 leukocytes in Blood by Automated count 14 % [facility] ([facility] Basophils/100 leukocytes in Blood by Automated count 2 % [facility] ([facility] Immature cells [#/volume] in Blood Laboratory test result [facility] ([facility] Neutrophils [#/volume] in Blood by Automated count 8.9 x10E3/uL 1.4-7.0 Above high normal [facility] ([facility] ) Monocytes [#/volume] in Blood 1.7 x10E3/uL 0.1-0.9 Above high norm al [facility] ([facility] Lymphocytes [#/volume] in Blood 0.7 x10E3/uL 0.7-3.1 [facility] ([facility] Eosinophils [#/volume] in Blood by Automated count 0.0 x10E3/uL 0.0-0 .4 [facility] ([facility] Immature granulocytes/100 leukocytes in Blood by Autom ated count Laboratory test result [facility] ([facility] Basophils [#/volume] in Blood by Automated count 0.2 x10E3/uL 0.0-0.2 [facility] ([facility] Immature granulocytes [#/volume] in Blood by Automated count Laboratory test result [facility] ([facility] Morphology [Interpretation] in Blood Narrative Laboratory test result [facility] ([facility] Manual differential was performed. Nucleated erythrocytes/100 leukocytes [Ratio] in Blood by Automated count Laboratory test result [facility] ([facility] Bands Laboratory test result [facility] ([facility] Metamyelocytes 1 % 0-0 Above high normal [facility] ([facility] Promyelocytes Laboratory test result [facility] ([facility] Myelocytes 5 % 0-0 Above high normal [facility] ([facility] Laboratory test finding (navigational concept) Laboratory test result [facility] ([facility] Laboratory test finding (navigational concept) Laboratory test result [facility] ([facility] Laboratory test finding (navigational concept) Laboratory test result [facility] ([facility] ID Date Data Source [id number] 04/25/2020 02:56:00 PM EST [facility] ([facility] Name Value Range Interpretation Code Description Data Pennie rce(s) Supporting Document(s) Magnesium [Mass/volume] in Serum or Plasma 1.7 mg/dL 1.6-2.3 [facility] ([facility] ID Date Data Source [id number] 04/13/2020 09:42:00 AM EST [facility] Name Value Range Interpretation Code Description Data Pennie rce(s) Supporting Document(s) COMPREHENSIVE METABOLIC PANEL [facility] COMPREHENSIVE METABOLIC PANEL Sodium [Moles/volume] in Serum or Plasma 142 mEq/L 134 - 153 [facility] Potassium [Moles/volume] in Serum or Plasma 4.1 mEq/L 3.6 - 5.0 [facility] Chloride [Moles/volume] in Serum or Plasma 104 mEq/L 98 - 107 [facility] Carbon dioxide, total [Moles/volume] in Serum or Plasma 35 MEQ/L 22 - 30 H [facility] Glucose [Mass/volume] in Serum or Plasma 129 MG/DL 65 - 110 H [facility] BUN 28 MG/DL 7 - 21 H [facility] al Creatinine [Mass/volume] in Serum or Plasma 0.8 MG/DL 0.7 - 1.5 [facility] BUN/CREAT 35 8 - 27 H [facility] Protein [Mass/volume] in Serum or Plasma 4.7 G/DL 6.3 - 8.2 L [facility] Albumin [Mass/volume] in Serum or Plasma 3.2 G/DL 3.9 - 5.0 L [facility] Globulin [Mass/volume] in Serum by calculation 1.5 GM/DL 2.4 - 3.2 L [facility] A/G RATIO 2.1 0.8 - 2.0 H [facility] Calcium [Mass/volume] in Serum or Plasma 8.0 MG/DL 8.4 - 10.2 L [facility] Bilirubin.total [Mass/volume] in Serum or Plasma <0.7 MG/DL 0.2 - 1.3 [facility] Alkaline phosphatase [Enzymatic activity/volume] in Serum or Plasma 61 U/L 38 - 126 [facility] Aspartate aminotransferase [Enzymatic activity/volume] in Se rum or Plasma 9 U/L 5 - 40 [facility] Alanine aminotransferase [Enzymatic activity/volume] in Seru m or Plasma 7 U/L 7 - 56 [facility] Anion gap 3 in Serum or Plasma 3.0 mmol/L 8.0 - 16.0 L [facility] AGE 84 yrs [facility] al NON-AA GFR >60 mL/min [facility] ital AFR AMER GFR >60 mL/min [facility] spital Male GFR In terprentation 20-49 yrs >60 mL/min Normal 50-59 yrs >56 mL/min Normal 60-69 yrs >49 mL/min Normal 70-79yrs >42 mL/min Normal 80 and above >35 mL/min Normal Female GFR Interpretation 20-39 yrs >60 mL/min Normal 40-49 yrs >58 mL/min Normal 50-59 yrs >51 mL/min Normal 60-69 yrs >45 mL/min Normal 70-79 yrs >39 mL/min Normal 80 and above >32 mL/min Normal ID Date Data Source [id number] 04/13/2020 08:37:00 AM EST [facility] Name Value Range Interpretation Code Description Data Pennie rce(s) Supporting Document(s) CBC NO DIFF [facility] ital COMPLETE BLOOD COUNT Leukocytes [#/volume] in Blood by Automated count 9.5 10^3/uL 4.2 - 1 1.0 [facility] Erythrocytes [#/volume] in Blood by Automated count 3.79 10^6/uL 4. 50 - 6.30 L [facility] Hemoglobin [Mass/volume] in Blood 11.0 g/dL 14.0 - 16.0 L [facility] Hematocrit [Volume Fraction] of Blood by Automated count 33.8 % 4 1.0 - 51.0 L [facility] Erythrocyte mean corpuscular volume [Entitic volume] by Auto mated count 89.2 fL 80.0 - 94.0 [facility] Erythrocyte mean corpuscular hemoglobin [Entitic mass] by Automated count 29.0 pg 27.0 - 34.0 [facility] Erythrocyte mean corpuscular hemoglobin concentration [Mass/volume] by Automated count 32.5 g/dL 31.0 - 36.0 [facility] Erythrocyte distribution width [Ratio] by Automated count 19.4 % 11.5 - 14.8 H [facility] Platelets [#/volume] in Blood by Automated count 177 10^3/uL 150 - 45 0 [facility] Platelet mean volume [Entitic volume] in Blood by Automated count 11.0 fL 7.4 - 10.4 H [facility] ID Date Data Source [id number] 04/10/2020 11:45:00 AM EST [facility] Name Value Range Interpretation Code Description Data Pennie rce(s) Supporting Document(s) SARS coronavirus 2 RNA Not Detected [facility] [place] This lab was ordered by [facility] and reported by [facility]. ID Date Data Source [id number] 04/13/2020 06:29:00 AM EST [facility] Name Value Range Interpretation Code Description Data Pennie rce(s) Supporting Document(s) SARS-CoV-2, EUGENE Not Detected Not Detected [facility] This nucleic acid amplification test was developed and its performancecharacteristics determined by [employer]. Nucleic acidamplification tests include PCR and TMA. This test has not been FDAcleared or approved. This test has been authorized by FDA under anEmergency Use Authorization (EUA). This test is only authorized forthe duration of time the declaration that circumstances existjustifying the authorization of the emergency use of in vitrodiagnostic tests for detection of SARS-CoV-2 virus and/or diagnosisof COVID-19 infection under section 564(b)(1) of the Act, 21 U.S.C.360bbb-3(b) (1), unless the authorization is terminated or revokedsooner.When diagnostic testing is negative, the possibility of a falsenegative result should be considered in the context of a patient'srecent exposures and the presence of clinical signs and symptomsconsistent with COVID- 19. An individual without symptoms of COVID-19and who is not shedding SARS-CoV-2 virus would expect to have anegative (not detected) result in this assay. ORDER COVID 19 2 DAY YES [facility] ID Date Data Source [id number] 04/06/2020 09:00:00 AM EST [facility] Name Value Range Interpretation Code Description Data Pennie rce(s) Supporting Document(s) SARS coronavirus 2 RNA Not Detected [facility] [place] This lab was ordered by [facility] and reported by [facility]. ID Date Data Source [id number] 04/08/2020 06:00:00 PM EST [facility] Name Value Range Interpretation Code Description Data Pennie rce(s) Supporting Document(s) SARS-CoV-2, EUGENE Not Detected Not Detected [facility] Testing was performed using the pradeep(R) SARS-CoV-2 test.This nucleic acid amplification test was developed and its performancecharacteristics determined by [employer]. Nucleic acidamplification tests include PCR and TMA. This test has not been FDAcleared or approved. This test has been authorized by FDA under anEmergency Use Authorization (EUA). This test is only authorized forthe duration of time the declaration that circumstances existjustifying the authorization of the emergency use of in vitrodiagnostic tests for detection of SARS-CoV-2 virus and/or diagnosisof COVID-19 infection under section 564(b)(1) of the Act, 21 U.S.C.360bbb-3(b) (1), unless the authorization is terminated or revokedsooner.When diagnostic testing is negative, the possibility of a falsenegative result should be considered in the context of a patient'srecent exposures and the presence of clinical signs and symptomsconsistent with COVID- 19. An individual without symptoms of COVID-19and who is not shedding SARS-CoV-2 virus would expect to have anegative (not detected) result in this assay. ORDER COVID 19 2 DAY YES [facility] ID Date Data Source [id number] 04/03/2020 12:46:00 PM EST [facility] Name Value Range Interpretation Code Description Data Pennie rce(s) Supporting Document(s) SARS coronavirus 2 RNA Not Detected [facility] This lab was ordered by [facility] and reported by [facility]. ID Date Data Source [id number] 04/06/2020 08:59:00 AM EST [facility] Name Value Range Interpretation Code Description Data Pennie rce(s) Supporting Document(s) SARS-CoV-2, EUGENE Not Detected Not Detected [facility] This nucleic acid amplification test was developed and its performancecharacteristics determined by [employer]. Nucleic acidamplification tests include PCR and TMA. This test has not been FDAcleared or approved. This test has been authorized by FDA under anEmergency Use Authorization (EUA). This test is only authorized forthe duration of time the declaration that circumstances existjustifying the authorization of the emergency use of in vitrodiagnostic tests for detection of SARS-CoV-2 virus and/or diagnosisof COVID-19 infection under section 564(b)(1) of the Act, 21 U.S.C.360bbb-3(b) (1), unless the authorization is terminated or revokedsooner.When diagnostic testing is negative, the possibility of a falsenegative result should be considered in the context of a patient'srecent exposures and the presence of clinical signs and symptomsconsistent with COVID- 19. An individual without symptoms of COVID-19and who is not shedding SARS-CoV-2 virus would expect to have anegative (not detected) result in this assay. ORDER COVID 19 2 DAY NO [facility] ID Date Data Source [id number] 03/30/2020 10:05:00 AM EST [facility] Name Value Range Interpretation Code Description Data Pennie rce(s) Supporting Document(s) SARS coronavirus 2 RNA [facility] This lab was ordered by [facility] and reported by [employer]. ID Date Data Source [id number] 04/01/2020 04:43:00 PM EST [facility] Name Value Range Interpretation Code Description Data Pennie rce(s) Supporting Document(s) SARS-CoV-2, EUGENE Not Detected Not Detected [facility] This nucleic acid amplification test was developed and its performancecharacteristics determined by [employer]. Nucleic acidamplification tests include PCR and TMA. This test has not been FDAcleared or approved. This test has been authorized by FDA under anEmergency Use Authorization (EUA). This test is only authorized forthe duration of time the declaration that circumstances existjustifying the authorization of the emergency use of in vitrodiagnostic tests for detection of SARS-CoV-2 virus and/or diagnosisof COVID-19 infection under section 564(b)(1) of the Act, 21 U.S.C.360bbb-3(b) (1), unless the authorization is terminated or revokedsooner.When diagnostic testing is negative, the possibility of a falsenegative result should be considered in the context of a patient'srecent exposures and the presence of clinical signs and symptomsconsistent with COVID- 19. An individual without symptoms of COVID-19and who is not shedding SARS-CoV-2 virus would expect to have anegative (not detected) result in this assay. ID Date Data Source [id number] 03/27/2020 09:50:00 AM EST [facility] Name Value Range Interpretation Code Description Data Pennie rce(s) Supporting Document(s) SARS coronavirus 2 RNA [facility] by [facility]. ID Date Data Source [id number] 03/30/2020 10:50:00 PM EST [facility] Name Value Range Interpretation Code Description Data Pennie rce(s) Supporting Document(s) SARS-CoV-2, EUGENE Not Detected Not Detected [facility] This nucleic acid amplification test was developed and its performancecharacteristics determined by [employer]. Nucleic acidamplification tests include PCR and TMA. This test has not been FDAcleared or approved. This test has been authorized by FDA under anEmergency Use Authorization (EUA). This test is only authorized forthe duration of time the declaration that circumstances existjustifying the authorization of the emergency use of in vitrodiagnostic tests for detection of SARS-CoV-2 virus and/or diagnosisof COVID-19 infection under section 564(b)(1) of the Act, 21 U.S.C.360bbb-3(b) (1), unless the authorization is terminated or revokedsooner.When diagnostic testing is negative, the possibility of a falsenegative result should be considered in the context of a patient'srecent exposures and the presence of clinical signs and symptomsconsistent with COVID- 19. An individual without symptoms of COVID-19and who is not shedding SARS-CoV-2 virus would expect to have anegative (not detected) result in this assay. ID Date Data Source [id number] 03/23/2020 01:00:00 PM EST [facility] Name Value Range Interpretation Code Description Data Pennie rce(s) Supporting Document(s) SARS coronavirus 2 RNA [facility] and reported by [facility]. ID Date Data Source [id number] 03/25/2020 04:09:00 PM EST [facility] Name Value Range Interpretation Code Description Data Pennie rce(s) Supporting Document(s) SARS-CoV-2, EUGENE Not Detected Not Detected [facility] This nucleic acid amplification test was developed and its performancecharacteristics determined by [employer]. Nucleic acidamplification tests include PCR and TMA. This test has not been FDAcleared or approved. This test has been authorized by FDA under anEmergency Use Authorization (EUA). This test is only authorized forthe duration of time the declaration that circumstances existjustifying the authorization of the emergency use of in vitrodiagnostic tests for detection of SARS-CoV-2 virus and/or diagnosisof COVID-19 infection under section 564(b)(1) of the Act, 21 U.S.C.360bbb-3(b) (1), unless the authorization is terminated or revokedsooner.When diagnostic testing is negative, the possibility of a falsenegative result should be considered in the context of a patient'srecent exposures and the presence of clinical signs and symptomsconsistent with COVID- 19. An individual without symptoms of COVID-19and who is not shedding SARS-CoV-2 virus would expect to have anegative (not detected) result in this assay. ID Date Data Source [id number] 03/16/2020 08:23:00 AM EST [facility] Name Value Range Interpretation Code Description Data [facility](s) Supporting Document(s) COMPREHENSIVE METABOLIC PANEL [facility] COMPREHENSIVE METABOLIC PANEL Sodium [Moles/volume] in Serum or Plasma 145 mEq/L 134 - 153 [facility] Potassium [Moles/volume] in Serum or Plasma 3.9 mEq/L 3.6 - 5.0 [facility] Chloride [Moles/volume] in Serum or Plasma 107 mEq/L 98 - 107 [facility] Carbon dioxide, total [Moles/volume] in Serum or Plasma 35 MEQ/L 22 - 30 H [facility] Glucose [Mass/volume] in Serum or Plasma 113 MG/DL 65 - 110 H [facility] BUN 19 MG/DL 7 - 21 [facility] Creatinine [Mass/volume] in Serum or Plasma 0.9 MG/DL 0.7 - 1.5 [facility]CREAT 21 8 - [facility] Protein [Mass/volume] in Serum or Plasma 4.6 G/DL 6.3 - 8.2 L [facility] Albumin [Mass/volume] in Serum or Plasma 3.1 G/DL 3.9 - 5.0 L [facility] Globulin [Mass/volume] in Serum by calculation 1.5 GM/DL 2.4 - 3.2 L [facility] A/G RATIO 2.1 0.8 - 2.0 H [facility] al Calcium [Mass/volume] in Serum or Plasma 8.3 MG/DL 8.4 - 10.2 L [facility] Bilirubin.total [Mass/volume] in Serum or Plasma <0.7 MG/DL 0.2 - 1.3 [facility] Alkaline phosphatase [Enzymatic activity/volume] in Serum or Plasma 58 U/L 38 - 126 [facility] Aspartate aminotransferase [Enzymatic activity/volume] in Serum or Plasma 11 U/L 5 - 40 [facility] Alanine aminotransferase [Enzymatic activity/volume] in Seru m or Plasma 11 U/L 7 - 56 [facility] Anion gap 3 in Serum or Plasma 3.0 mmol/L 8.0 - 16.0 L [facility] AGE 84 yrs [facility] al NON-AA GFR >60 mL/min [facility] ital AFR AMER GFR >60 mL/min [facility] Ho spital Male GFR In terprentation 20-49 yrs >60 mL/min Normal 50-59 yrs >56 mL/min Normal 60-69 yrs >49 mL/min Normal 70-79yrs >42 mL/min Normal 80 and above >35 mL/min Normal Female GFR Interpretation 20-39 yrs >60 mL/min Normal 40-49 yrs >58 mL/min Normal 50-59 yrs >51 mL/min Normal 60-69 yrs >45 mL/min Normal 70-79 yrs >39 mL/min Normal 80 and above >32 mL/min Normal ID Date Data Source [id number] 03/16/2020 07:58:00 AM EST [facility] Name Value Range Interpretation Code Description Data Penine rce(s) Supporting Document(s) CBC NO DIFF [facility] COMPLETE BLOOD COUNT Leukocytes [#/volume] in Blood by Automated count 9.1 10^3/uL 4.2 - 1 1.0 [facility] Erythrocytes [#/volume] in Blood by Automated count 3.49 10^6/uL 4. 50 - 6.30 L [facility] Hemoglobin [Mass/volume] in Blood 10.1 g/dL 14.0 - 16.0 L [facility] Hematocrit [Volume Fraction] of Blood by Automated count 31.6 % 4 1.0 - 51.0 L [facility] Erythrocyte mean corpuscular volume [Entitic volume] by Auto mated count 90.5 fL 80.0 - 94.0 [facility] Erythrocyte mean corpuscular hemoglobin [Entitic mass] by Automated count 28.9 pg 27.0 - 34.0 [facility] Erythrocyte mean corpuscular hemoglobin concentration [Mass/volume] by Automated count 32.0 g/dL 31.0 - 36.0 [facility] Erythrocyte distribution width [Ratio] by Automated count 19.3 % 11.5 - 14.8 H [facility] Platelets [#/volume] in Blood by Automated count 166 10^3/uL 150 - 45 0 [facility] Platelet mean volume [Entitic volume] in Blood by Automated count 10.5 fL 7.4 - 10.4 H [facility] ID Date Data Source [id number] 02/26/2020 06:30:00 AM [facility] Name Value Range Interpretation Code Description Data Pennie rce(s) Supporting Document(s) Levetiracetam [Mass/volume] in Serum or Plasma 21.8 ug/mL 10.0-40.0 [facility] This test was developed and its performa nce characteristicsdetermined by [facility]. It has not been cleared or approvedby the Food and Drug Administration. ID Date Data Source [id number] 02/17/2020 10:37:00 AM EST [facility] ([facility]) Name Value Range Interpretation Code Description Data Pennie rce(s) Supporting Document(s) Calcium [Mass/volume] in Serum or Plasma 8.4 [facility] ([facility]) Alanine aminotransferase [Enzymatic activity/volume] in Serum or Pl asma 8 [facility] ([facility]) Albumin [Mass/volume] in Serum or Plasma 2.9 [facility] ([facility]) Carbon dioxide, total [Moles/volume] in Serum or Plasma 32 [facility] ([facility]) Chloride [Moles/volume] in Serum or Plasma 106 [facility] ([facility]) Potassium [Moles/volume] in Serum or Plasma 4.1 [facility] ([facility]) Alkaline phosphatase [Enzymatic activity/volume] in Serum or Plasma 7 1 [facility] ([facility]) Protein [Mass/volume] in Serum or Plasma 4.3 [facility] ([facility]) Urea nitrogen [Mass/volume] in Serum or Plasma 18 [facility] ([facility]) Sodium 143 [facility] ([facility]) Aspartate aminotransferase [Enzymatic activity/volume] in Serum or Plasma 12 [facility] ([facility]) Glucose 160 65-110 [facility] ([facility]) Creatinine For GFR 1.0 [facility] ID Date Data Source [id number] 02/17/2020 10:37:00 AM EST [facility] ([facility] Name Value Range Interpretation Code Description Data Pennie rce(s) Supporting Document(s) Iron 61 42-135 [facility] ([facility]) Iron binding capacity [Mass/volume] in Serum or Plasma 164 [facility] ([facility]) Tibc % Saturation 37 [facility] ([facility]) ID Date Data Source [id number] 02/19/2020 09:10:00 PM [facility] Name Value Range Interpretation Code Description Data Pennie rce(s) Supporting Document(s) Levetiracetam [Mass/volume] in Serum or Plasma 29.4 ug/mL 10.0-40.0 [facility] This test was developed and its performa nce characteristicsdetermined by [facility]. It has not been cleared or approvedby the Food and Drug Administration. ID Date Data Source [id number] 02/17/2020 08:57:00 AM [facility] Name Value Range Interpretation Code Description Data Pennie rce(s) Supporting Document(s) Ferritin [Mass/volume] in Serum or Plasma 236.1 ng/mL 5.0 - 244 [facility] ID Date Data Source [id number] 02/17/2020 08:48:00 AM [facility] Name Value Range Interpretation Code Description Data Pennie rce(s) Supporting Document(s) CBC NO DIFF [facility] ital COMPLETE BLOOD COUNT Leukocytes [#/volume] in Blood by Automated count 9.0 10^3/uL 4.2 - 1 1.0 [facility] Erythrocytes [#/volume] in Blood by Automated count 3.09 10^6/uL 4. 50 - 6.30 L [facility] Hemoglobin [Mass/volume] in Blood 9.0 g/dL 14.0 - 16.0 L [facility] Hematocrit [Volume Fraction] of Blood by Automated count 27.6 % 4 1.0 - 51.0 L [facility] Erythrocyte mean corpuscular volume [Entitic volume] by Auto mated count 89.3 fL 80.0 - 94.0 [facility] Erythrocyte mean corpuscular hemoglobin [Entitic mass] by Automated count 29.1 pg 27.0 - 34.0 [facility] Erythrocyte mean corpuscular hemoglobin concentration [Mass/volume] by Automated count 32.6 g/dL 31.0 - 36.0 [facility] Erythrocyte distribution width [Ratio] by Automated count 18.9 % 11.5 - 14.8 H [facility] Platelets [#/volume] in Blood by Automated count 187 10^3/uL 150 - 45 0 [facility] Platelet mean volume [Entitic volume] in Blood by Automated count 11.1 fL 7.4 - 10.4 H [facility] ID Date Data Source [id number] 02/17/2020 08:44:00 AM [facility] Name Value Range Interpretation Code Description Data Pennie rce(s) Supporting Document(s) Iron [Mass/volume] in Serum or Plasma 61 UG/DL 42 - 135 [facility] Iron binding capacity.unsaturated [Mass/volume] in Serum or Plasma 103 UG/DL 112 - 347 L [facility] Iron binding capacity [Mass/volume] in Serum or Plasma 164 ug/dL 250 - 450 L [facility] Iron saturation [Mass Fraction] in Serum or Plasma 37 % [facility] ID Date Data Source [id number] 02/17/2020 08:44:00 AM EST [facility] Name Value Range Interpretation Code Description Data Pennie rce(s) Supporting Document(s) COMPREHENSIVE METABOLIC PANEL [facility] COMPREHENSIVE METABOLIC PANEL Sodium [Moles/volume] in Serum or Plasma 143 mEq/L 134 - 153 [facility] Potassium [Moles/volume] in Serum or Plasma 4.1 mEq/L 3.6 - 5.0 [facility] Chloride [Moles/volume] in Serum or Plasma 106 mEq/L 98 - 107 [facility] Carbon dioxide, total [Moles/volume] in Serum or Plasma 32 MEQ/L 22 - 30 H [facility] Glucose [Mass/volume] in Serum or Plasma 160 MG/DL 65 - 110 H [facility] BUN 18 MG/DL 7 - 21 [facility] al Creatinine [Mass/volume] in Serum or Plasma 1.0 MG/DL 0.7 - 1.5 [facility] BUN/CREAT 18 8 - 27 [facility] al Protein [Mass/volume] in Serum or Plasma 4.3 G/DL 6.3 - 8.2 L [facility] Albumin [Mass/volume] in Serum or Plasma 2.9 G/DL 3.9 - 5.0 L [facility] Globulin [Mass/volume] in Serum by calculation 1.4 GM/DL 2.4 - 3.2 L [facility] A/G RATIO 2.1 0.8 - 2.0 H [facility] Calcium [Mass/volume] in Serum or Plasma 8.4 MG/DL 8.4 - 10.2 [facility] Bilirubin.total [Mass/volume] in Serum or Plasma <0.7 MG/DL 0.2 - 1.3 [facility] Alkaline phosphatase [Enzymatic activity/volume] in Serum or Plasma 71 U/L 38 - 126 [facility] Aspartate aminotransferase [Enzymatic activity/volume] in Serum or Plasma 12 U/L 5 - 40 [facility] Alanine aminotransferase [Enzymatic activity/volume] in Seru m or Plasma 8 U/L 7 - 56 [facility] Anion gap 3 in Serum or Plasma 5.0 mmol/L 8.0 - 16.0 L [facility] AGE 84 yrs [facility] al NON-AA GFR >60 mL/min [facility] ital AFR AMER GFR >60 mL/min [facility] Ho spital Male GFR In terprentation 20-49 yrs >60 mL/min Normal 50-59 yrs >56 mL/min Normal 60-69 yrs >49 mL/min Normal 70-79yrs >42 mL/min Normal 80 and above >35 mL/min Normal Female GFR Interpretation 20-39 yrs >60 mL/min Normal 40-49 yrs >58 mL/min Normal 50-59 yrs >51 mL/min Normal 60-69 yrs >45 mL/min Normal 70-79 yrs >39 mL/min Normal 80 and above >32 mL/min Normal ID Date Data Source [id number] 02/17/2020 08:42:00 AM EST [facility] Name Value Range Interpretation Code Description Data Pennie rce(s) Supporting Document(s) CVE PANEL [facility] al LIPID PANEL Cholesterol [Mass/volume] in Serum or Plasma 132 MG/DL 131 - 200 [facility] Deprecated Triglyceride [Mass/volume] in Serum or Plasma 83 MG/DL 3 5 - 160 [facility] HDL 35 MG/DL 29 - 86 [facility] al Cholesterol in LDL [Mass/volume] in Serum or Plasma by Direc t assay 83 mg/dL 65 - 175 [facility] Cholesterol.total/Cholesterol in HDL [Mass Ratio] in Serum o r Plasma 3.8 3.4 - 4.9 [facility] LDL/HDL 2.37 1.00 - 3.55 [facility] ital CVE RISK CHOL/HDL LDL/HDLMEN: 1/2 AVERAGE 3.43 1.00 AVERAGE 4.97 3.55 2X AVERAGE 9.55 6.25 3X AVERAGE 23.99 7.99WOMEN: 1/2 AVERAGE 3.27 1.47 AVERAGE 4.44 3.22 2X AVERAGE 7.05 5.03 3X AVERAGE 11.04 6.14 ID Date Data Source [id number] 01/22/2020 10:20:00 AM EDT [facility] ([facility]) Name Value Range Interpretation Code Description Data Pennie rce(s) Supporting Document(s) Magnesium [Mass/volume] in Serum or Plasma 1.6 [facility] ([facility]) ID Date Data Source [id number] 01/22/2020 10:20:00 AM EDT [facility] [place] Name Value Range Interpretation Code Description Data Pennie rce(s) Supporting Document(s) Iron 48 42-135 [facility] ([facility]) Iron binding capacity [Mass/volume] in Serum or Plasma 192 [facility] ([facility]) Tibc % Saturation 25 [facility] ([facility]) ID Date Data Source [id number] 01/22/2020 10:20:00 AM EDT [facility] ([facility] Name Value Range Interpretation Code Description Data Pennie rce(s) Supporting Document(s) Free T4 1.53 [facility] ([facility]) Thyroid Stimulating Hormone 2.54 ME [facility] ([facility]) ID Date Data Source [id number] 01/22/2020 10:20:00 AM EDT [facility] ([facility] Name Value Range Interpretation Code Description Data Pennie rce(s) Supporting Document(s) Calcium [Mass/volume] in Serum or Plasma 8.9 [facility] ([facility]) Alanine aminotransferase [Enzymatic activity/volume] in Serum or Pl asma 8 [facility] ([facility]) Albumin [Mass/volume] in Serum or Plasma 3.3 [facility] ([facility]) Carbon dioxide, total [Moles/volume] in Serum or Plasma 32 [facility] ([facility]) Chloride [Moles/volume] in Serum or Plasma 105 [facility] ([facility]) Alkaline phosphatase [Enzymatic activity/volume] in Serum or Plasma 7 0 [facility] ([facility]) Protein [Mass/volume] in Serum or Plasma 5.2 [facility] ([facility]) Potassium [Moles/volume] in Serum or Plasma 4.0 [facility] ([facility]) Sodium 144 [facility] ([facility]) Urea nitrogen [Mass/volume] in Serum or Plasma 19 [facility] ([facility]) Aspartate aminotransferase [Enzymatic activity/volume] in Serum or Plasma 12 [facility] ([facility]) Glucose 100 65-110 [facility] ([facility] Creatinine For GFR 1.0 [facility] ([facility]) ID Date Data Source [id number] 01/22/2020 08:27:00 AM EDT [facility] Name Value Range Interpretation Code Description Data Pennie rce(s) Supporting Document(s) Thyroxine (T4) free index in Serum or Plasma by calculation 1.53 NG/DL 0.93 - 1.70 [facility] ID Date Data Source [id number] 01/22/2020 08:27:00 AM EDT [facility] Name Value Range Interpretation Code Description Data Pennie rce(s) Supporting Document(s) Thyrotropin [Units/volume] in Serum or Plasma by Detec tion limit <= 0.05 mIU/L 2.54 uIU/mL 0.47 - 5.01 [facility] ID Date Data Source [id number] 01/22/2020 08:27:00 AM EDT [facility] Value Range Interpretation Code Description Data Pennie rce(s) Supporting Document(s) Ferritin [Mass/volume] in Serum or Plasma 460.0 ng/mL 5.0 - 244 H [facility] ID Date Data Source [id number] 01/22/2020 08:22:00 AM T [facility] Value Range Interpretation Code Description Data Pennie rce(s) Supporting Document(s) Magnesium [Mass/volume] in Serum or Plasma 1.6 MG/DL 1.7 - 2.2 L [facility] ID Date Data Source [id number] 01/22/2020 08:22:00 AM EDT [facility] Value Range Interpretation Code Description Data Pennie rce(s) Supporting Document(s) Iron [Mass/volume] in Serum or Plasma 48 UG/DL 42 - 135 [facility] Iron binding capacity.unsaturated [Mass/volume] in Serum or Plasma 144 UG/DL 112 - 347 [facility] Iron binding capacity [Mass/volume] in Serum or Plasma 192 ug/dL 250 - 450 L [facility] Iron saturation [Mass Fraction] in Serum or Plasma 25 % [facility] ID Date Data Source [id number] 01/22/2020 08:22:00 AM EDT [facility] Name Value Range Interpretation Code Description Data Pennie rce(s) Supporting Document(s) CVE PANEL [facility] al LIPID PANEL Cholesterol [Mass/volume] in Serum or Plasma 154 MG/DL 131 - 200 [facility] Deprecated Triglyceride [Mass/volume] in Serum or Plasma 156 MG/DL 3 5 - 160 [facility] HDL 29 MG/DL 29 - 86 [facility] al Cholesterol in LDL [Mass/volume] in Serum or Plasma by Direc t assay 99 mg/dL 65 - 175 [facility] Cholesterol.total/Cholesterol in HDL [Mass Ratio] in Serum o r Plasma 5.3 3.4 - 4.9 H [facility] LDL/HDL 3.41 1.00 - 3.55 [facility] CVE RISK CHOL/HDL LDL/HDLMEN: 1/2 AVERAGE 3.43 1.00 AVERAGE 4.97 3.55 2X AVERAGE 9.55 6.25 3X AVERAGE 23.99 7.99WOMEN: 1/2 AVERAGE 3.27 1.47 AVERAGE 4.44 3.22 2X AVERAGE 7.05 5.03 3X AVERAGE 11.04 6.14 ID Date Data Source [id number] 01/22/2020 08:22:00 AM EDT [facility] Name Value Range Interpretation Code Description Data Pennie rce(s) Supporting Document(s) COMPREHENSIVE METABOLIC PANEL [facility] COMPREHENSIVE METABOLIC PANEL Sodium [Moles/volume] in Serum or Plasma 144 mEq/L 134 - 153 [facility] Potassium [Moles/volume] in Serum or Plasma 4.0 mEq/L 3.6 - 5.0 [facility] Chloride [Moles/volume] in Serum or Plasma 105 mEq/L 98 - 107 [facility] Carbon dioxide, total [Moles/volume] in Serum or Plasma 32 MEQ/L 22 - 30 H [facility] Glucose [Mass/volume] in Serum or Plasma 100 MG/DL 65 - 110 [facility] BUN 19 MG/DL 7 - 21 [facility] al Creatinine [Mass/volume] in Serum or Plasma 1.0 MG/DL 0.7 - 1.5 [facility] BUN/CREAT 19 8 - 27 [facility] al Protein [Mass/volume] in Serum or Plasma 5.2 G/DL 6.3 - 8.2 L [facility] Albumin [Mass/volume] in Serum or Plasma 3.3 G/DL 3.9 - 5.0 L [facility] Globulin [Mass/volume] in Serum by calculation 1.9 GM/DL 2.4 - 3.2 L [facility] A/G RATIO 1.7 0.8 - 2.0 [facility] Calcium [Mass/volume] in Serum or Plasma 8.9 MG/DL 8.4 - 10.2 [facility] Bilirubin.total [Mass/volume] in Serum or Plasma <0.7 MG/DL 0.2 - 1.3 [facility] Alkaline phosphatase [Enzymatic activity/volume] in Serum or Plasma 70 U/L 38 - 126 [facility] Aspartate aminotransferase [Enzymatic activity/volume] in Serum or Plasma 12 U/L 5 - 40 [facility] Alanine aminotransferase [Enzymatic activity/volume] in Seru m or Plasma 8 U/L 7 - 56 [facility] Anion gap 3 in Serum or Plasma 7.0 mmol/L 8.0 - 16.0 L [facility] AGE 84 yrs [facility] al NON-AA GFR >60 mL/min [facility] AFR AMER GFR >60 mL/min [facility] Ho spital Male GFR In terprentation 20-49 yrs >60 mL/min Normal 50-59 yrs >56 mL/min Normal 60-69 yrs >49 mL/min Normal 70-79yrs >42 mL/min Normal 80 and above >35 mL/min Normal Female GFR Interpretation 20-39 yrs >60 mL/min Normal 40-49 yrs >58 mL/min Normal 50-59 yrs >51 mL/min Normal 60-69 yrs >45 mL/min Normal 70-79 yrs >39 mL/min Normal 80 and above >32 mL/min Normal ID Date Data Source [id number] 01/22/2020 07:56:00 AM EDT [facility] Name Value Range Interpretation Code Description Data Pennie rce(s) Supporting Document(s) CBC NO DIFF [facility] ital COMPLETE BLOOD COUNT Leukocytes [#/volume] in Blood by Automated count 12.1 10^3/uL 4.2 - 11.0 H [facility] Erythrocytes [#/volume] in Blood by Automated count 3.44 10^6/uL 4. 50 - 6.30 L [facility] Hemoglobin [Mass/volume] in Blood 10.0 g/dL 14.0 - 16.0 L [facility] Hematocrit [Volume Fraction] of Blood by Automated count 30.4 % 4 1.0 - 51.0 L [facility] Erythrocyte mean corpuscular volume [Entitic volume] by Auto mated count 88.4 fL 80.0 - 94.0 [facility] Erythrocyte mean corpuscular hemoglobin [Entitic mass] by Automated count 29.1 pg 27.0 - 34.0 [facility] Erythrocyte mean corpuscular hemoglobin concentration [Mass/volume] by Automated count 32.9 g/dL 31.0 - 36.0 [facility] Erythrocyte distribution width [Ratio] by Automated count 19.3 % 11.5 - 14.8 H [facility] Platelets [#/volume] in Blood by Automated count 216 10^3/uL 150 - 45 0 [facility] Platelet mean volume [Entitic volume] in Blood by Automated count 10.5 fL 7.4 - 10.4 H [facility] ID Date Data Source [id number] 01/17/2020 08:27:00 PM EDT [facility] ([facility] Name Value Range Interpretation Code Description Data Pennie rce(s) Supporting Document(s) Appearance, Urine RFX Laboratory test result Nor mal (applies to non-numeric results) [facility] ([facility] ) Color, Urine RFX Laboratory test result Normal ( applies to non-numeric results) [facility] ([facility] ) PH,Urine RFX 6.0 units 5.0-9.0 Normal (applies to non-numeric res ults) MED[facility] ([facility] Specific [place] Ur Auto RFX 1.015 1.002-1.035 Nor mal (applies to non-numeric results) [facility] ([facility] ) Protein, Urine Auto RFX Laboratory test result N ormal (applies to non-numeric results) [facility] ([facility] ) Glucose, Urine (Ua) Auto RFX Laboratory test result Normal (applies to non- numeric results) [facility] ([facility] ) Ketone, Urine Auto RFX Laboratory test result No rmal (applies to non-numeric results) MED[facility] ([facility] ) Urobilinogen, Urine Auto RFX 0.2 mg/dL 0.0-2.0 Nor mal (applies to non-numeric results) [facility] ([facility] ) Bilirubin, Urine Auto RFX Laboratory test result Normal (applies to non- numeric results) [facility] ([facility] ) Nitrite, Urine Auto RFX Laboratory test result N ormal (applies to non-numeric results) [facility] ([facility] ) Blood, Urine Blood RFX Laboratory test result No rmal (applies to non-numeric results) [facility] ([facility] ) Leukocyte Esterase Ur Auto RFX Laboratory test result Normal (applies to non- numeric results) [facility] ([facility] ) WBC, Urine Auto RFX 3 /HPF 0-3 Normal (applies to non-nume cristian results) [facility] ([facility] RBC, Urine Auto RFX 0 /HPF 0-3 Normal (applies to non-nume cristian results) [facility] ([facility] Squam Epithelial Cell Ur Aurfx 0 /HPF 0-6 N ormal (applies to non-numeric results) [facility] ([facility] ) Bacteria, Urine Auto RFX Laboratory test result Normal (applies to non-numeric results) [facility] ([facility] ) Hyaline Cast, Urine Auto RFX 0 /LPF 0-1 Normal (appl ies to non-numeric results) [facility] ID Date Data Source [id number] 01/17/2020 06:14:00 PM EDT MED[facility] ([facility] Name Value Range Interpretation Code Description Data Pennie rce(s) Supporting Document(s) Lactate [Mass/volume] in Serum or Plasma 0.9 mmol/L 0.4-2.0 Normal (applies to non-numeric results) [facility] ([facility]) Y/N query for Sepsis Lactate Rule: Y ID Date Data Source [id number] 01/17/2020 06:14:00 PM EDT MED[facility] ([facility] Name Value Range Interpretation Code Description Data Pennie rce(s) Supporting Document(s) CPK Creatine Phosphokinase 24 U/L 39-308 Below low normal [facility] ([facility] CK-MB Value Mass 1.5 ng/mL Normal (applies to non-numeric results) [facility] MB/CK Relative Index 6.25 Above high normal [facility] ([facility] <content>DIAGNOSIS CRITERIA</content>
<content>MMB ng/ml Relative Index (RI)</content>
<content>NON-AMI < or = 5 N/A</content>
<content>CHANEY ZONE > 5 < or = 4</content>
<content>AMI > 5 > 4</content>
<content></content> Troponin I Laboratory test result Normal (applies to non-n umeric results) [facility] ([facility] <content>Troponin I Reference Interval f or Siemens [place] LOCI:</content>
<content></content>
<content>99th Percentile= 0.00-0.045 ng/ml</content>
<content></content>
<content>Risk Stratification:</content>
<content><= 0.10 ng/ml Decreased Risk for Adverse Clinical</content>
<content>Events.</content>
<content>0.10-1.50 ng/ml Increased Risk for Adverse Clinical</content>
<content>Events. Evaluation of additional</content>
<content>criterion and/or repeat testing in 2-6</content>
<content>hours is suggested to rule out myocardial</content>
<content>damage.</content>
<content>>= 1.50 ng/ml Indicative of Myocardial Injury.</content>
<content></content> ID Date Data Source [id number] 01/17/2020 06:14:00 PM EDT [facility] Name Value Range Interpretation Code Description Data Pennie rce(s) Supporting Document(s) Ast/Sgot 14 U/L 7-37 Normal (applies to non-numeric resul ts) [facility] ([facility] Alt/SGPT 17 U/L 12-78 Normal (applies to non-numeric resul ts) [facility] ([facility] Bilirubin,Total 0.6 mg/dL 0.2-1.0 Normal (applies to non-numeric results) [facility] ([facility] Alkaline Phosphatase 70 U/L 45-117 Normal (applies to non-num romeo results) [facility] ([facility] Bilirubin,Direct 0.2 mg/dL 0.0-0.2 Normal (applies to non-numeric results) [facility] ([facility] Total Protein 5.4 GM/DL 6.4-8.2 Below low normal MEDEN T ([facility] Albumin 2.5 GM/DL 3.2-5.2 Below low normal [facility] ( [facility] Albumin/Globulin Ratio 0.9 Normal (applies to non-n umeric results) [facility] ([facility] ID Date Data Source [id number] 01/17/2020 06:14:00 PM EDT [facility] ([facility] Name Value Range Interpretation Code Description Data Pennie rce(s) Supporting Document(s) Glucose, Fasting 114 mg/dL 70-100 Above high normal M EDENT ([facility] Blood Urea Nitrogen 18 mg/dL 7-18 Normal (applies to non-nume cristian results) [facility] ([facility] Creatinine For GFR 1.00 mg/dL 0.70-1.30 Normal (applies to non -numeric results) [facility] ([facility] Glomerular Filtration Rate Laboratory test result Normal (applies to non- numeric results) [facility] ([facility] ) <content>Units are mL/min/1.73 m2</content>
<content></content>
<content>Chronic Kidney Disease Staging per NKF:</content>
<content></content>
<content>Stage I & II GFR >=60 Normal to Mildly Decreased</content>
<content>Stage III GFR 30- 59 Moderately Decreased</content>
<content>Stage IV GFR 15-29 Severely Decreased</content>
<content>Stage V GFR <15 Very Little GFR Left</content>
<content>ESRD GFR <15 on TALENT ACQUISITION ASSOCIATE</content>
<content></content> Potassium Serum 4.3 meq/L 3.5-5.1 Normal (applies to non-numeric results) [facility] ([facility] Sodium Level 142 meq/L 136-145 Normal (applies to non-numeric res ults) [facility] ([facility] Chloride Level 107 meq/L 98-107 Normal (applies to non-numeric r esults) [facility] ([facility] Anion Gap 4 meq/L 8-16 Below low normal [facility] ( [facility] Carbon Dioxide Level 31 meq/L 21-32 Normal (applies to non-num romeo results) [facility] ([facility] Calcium Level 8.7 mg/dL 8.8-10.2 Below low normal MEDEN T ([facility] ID Date Data Source [id number] 01/17/2020 06:14:00 PM EDT MED[facility] ([facility] Name Value Range Interpretation Code Description Data Pennie rce(s) Supporting Document(s) Osmolality of Serum or Plasma 292 MOSM/KG 280-301 No rmal (applies to non-numeric results) [facility] ([facility] ) Thyrotropin [Units/volume] in Serum or Plasma 0.928 uIU/ML 0. 358-3.740 Normal (applies to non-numeric results) [facility] ([facility] ID Date Data Source [id number] 01/17/2020 06:14:00 PM EDT [facility] ([facility] Name Value Range Interpretation Code Description Data Pennie rce(s) Supporting Document(s) White Blood Count 13.4 10 4.0-10.0 Above high normal [facility] ([facility] Red Blood Count 3.51 10 4.30-6.10 Below low normal MED ENT ([facility] Hemoglobin 9.9 g/dL 13.5-17.5 Below low normal [facility] ( [facility] Mean Corpuscular Volume 89.5 fl 80.0-96.0 Normal ( applies to non-numeric results) [facility] ([facility] ) Hematocrit 31.4 % 42.0-52.0 Below low normal [facility] ( [facility] Mean Corpuscular Hemoglobin 28.2 pg 27.0-33.0 Norm al (applies to non-numeric results) [facility] ([facility] ) Mean Corpuscular HGB Conc 31.5 g/dL 32.0-36.5 Below low normal [facility] ([facility] Red Cell Distribution Width 19.2 % 11.5-14.5 Above high normal [facility] ([facility] Nucleated Red Blood Cell % 0.0 % 0-0 Normal (applies to n on-numeric results) [facility] ([facility] Platelet Count, Automated 201 10 150-450 Normal (applies to non-numeric results) [facility] ([facility] ) ID Date Data Source [id number] 01/17/2020 06:14:00 PM EDT [facility] ([facility] Name Value Range Interpretation Code Description Data Pennie rce(s) Supporting Document(s) Neutrophils 83 % 28-66 Above high normal [facility] ([facility] Bands 1 % Normal (applies to non-numeric resul ts) [facility] ([facility] Lymphocytes 5 % 16-44 Below low normal [facility] ([facility] Monocytes 7 % 0-5 Above high normal [facility] Myelocytes 3 % 0-0 Above high normal [facility] ([facility] Atypical Lymph 1 % 0-5 Normal (applies to non-numeric r esults) [facility] ([facility] Anisocytosis Laboratory test result Normal (applies to non -numeric results) [facility] ([facility] ID Date Data Source [id number] 01/17/2020 06:14:00 PM EDT [facility] ([facility] Name Value Range Interpretation Code Description Data Pennie rce(s) Supporting Document(s) Platelets [#/volume] in Blood by Estimate Laboratory test result Normal (applies to non-numeric results) [facility] ([facility] ID Date Data Source [id number] 12/24/2019 04:02:00 PM EDT [facility] ([facility] Name Value Range Interpretation Code Description Data Pennie rce(s) Supporting Document(s) Leukocytes [#/volume] in Blood by Automated count 14.1 x10E3/uL 3.4-10.8 Above high normal [facility] ([facility] ) Hemoglobin [Mass/volume] in Blood 10.4 g/dL 13.0-17.7 Below low nor mal [facility] ([facility] Erythrocytes [#/volume] in Blood by Automated count 3.59 x10E6/u L 4.14-5.80 Below low normal [facility] ([facility] ) Hematocrit [Volume Fraction] of Blood by Automated count 31.8 % 37.5-51.0 Below low normal [facility] ([facility] ) Erythrocyte mean corpuscular volume [Entitic volume] by Auto mated count 89 fL 79-97 [facility] ([facility] Erythrocyte mean corpuscular hemoglobin [Entitic mass] by Automated count 29.0 pg 26.6-33.0 [facility] ([facility] Erythrocyte mean corpuscular hemoglobin concentration [Mass/volume] by Automated count 32.7 g/dL 31.5-35.7 [facility] ([facility] Platelets [#/volume] in Blood by Automated count 193 x10E3/uL 150-450 [facility] ([facility] Erythrocyte distribution width [Ratio] by Automated count 18.3 % 11.6-15.4 Above high normal [facility] ([facility] ) Neutrophils 74 % [facility] ([facility] Lymphs 3 % [facility] Monocytes/100 leukocytes in Blood by Automated count 16 % [facility] ([facility] Eosinophils/100 leukocytes in Blood by Automated count 1 % [facility] ([facility] Basophils/100 leukocytes in Blood by Automated count 1 % [facility] ([facility] Immature cells [#/volume] in Blood Laboratory test result [facility] ([facility] Neutrophils [#/volume] in Blood by Automated count 10.4 x10E3/uL 1.4-7.0 Above high normal [facility] ([facility] ) Lymphocytes [#/volume] in Blood 0.4 x10E3/uL 0.7-3.1 Below low nor mal [facility] ([facility] Monocytes [#/volume] in Blood 2.3 x10E3/uL 0.1-0.9 Above high norm al [facility] ([facility] Eosinophils [#/volume] in Blood by Automated count 0.1 x10E3/uL 0.0-0 .4 [facility] ([facility] Immature granulocytes/100 leukocytes in Blood by Autom ated count Laboratory test result [facility] ([facility] Basophils [#/volume] in Blood by Automated count 0.1 x10E3/uL 0.0-0.2 [facility] ([facility] Nucleated erythrocytes/100 leukocytes [Ratio] in Blood by Automated count Laboratory test result [facility] ([facility] Immature granulocytes [#/volume] in Blood by Automated count Laboratory test result [facility] ([facility] Morphology [Interpretation] in Blood Narrative Laboratory test result [facility] ([facility] Manual differential was performed. Bands Laboratory test result [facility] ([facility] Metamyelocytes 1 % 0-0 Above high normal MED ENT ([facility] Myelocytes 4 % 0-0 Above high normal [facility] ([facility] Promyelocytes Laboratory test result [facility] ([facility] Laboratory test finding (navigational concept) Laboratory test result [facility] ([facility] Laboratory test finding (navigational concept) Laboratory test result [facility] ([facility] Laboratory test finding (navigational concept) Laboratory test result [facility] ([facility] ID Date Data Source [id number] 12/24/2019 04:02:00 PM EDT MED[facility] ([facility] ) Name Value Range Interpretation Code Description Data Pennie rce(s) Supporting Document(s) Leukocytes [#/volume] in Blood by Automated count 14.1 x10E3/uL 3.4-1 0.8 [facility] ([facility] ) Hemoglobin [Mass/volume] in Blood 10.4 g/dL 13.0-17.7 [facility] ([facility] ) Erythrocytes [#/volume] in Blood by Automated count 3.59 x10E6/uL 4.1 4-5.80 [facility] ([facility] ) Hematocrit [Volume Fraction] of Blood by Automated count 31.8 % 3 7.5-51.0 [facility] ([facility] ) Erythrocyte mean corpuscular volume [Entitic volume] by Auto mated count 89 fL 79-97 [facility] ([facility] ) Erythrocyte mean corpuscular hemoglobin [Entitic mass] by Automated count 29.0 pg 26.6-33.0 [facility] ([facility] ) Platelets [#/volume] in Blood by Automated count 193 x10E3/uL 150-450 [facility] ([facility] ) Erythrocyte mean corpuscular hemoglobin concentration [Mass/volume] by Automated count 32.7 g/dL 31.5-35.7 [facility] ([facility]log[facility], ) Erythrocyte distribution width [Ratio] by Automated count 18.3 % 11.6-15.4 [facility] Monocytes/100 leukocytes in Blood by Automated count 16 % [facility] Neutrophils/100 leukocytes in Blood by Automated count 74 % [facility] Laboratory test finding (navigational concept) 3 % [facility] Eosinophils/100 leukocytes in Blood by Automated count 1 % [facility] Immature cells [#/volume] in Blood Laboratory test result [facility] Basophils/100 leukocytes in Blood by Automated count 1 % MED[facility] ([facility]) Lymphocytes [#/volume] in Blood 0.4 x10E3/uL 0.7-3.1 [facility] ([facility] Neutrophils [#/volume] in Blood by Automated count 10.4 x10E3/uL 1.4- 7.0 [facility] ([facility]) Eosinophils [#/volume] in Blood by Automated count 0.1 x10E3/uL 0.0-0 .4 [facility] ([facility]) Monocytes [#/volume] in Blood 2.3 x10E3/uL 0.1-0.9 [facility] ([facility] Basophils [#/volume] in Blood by Automated count 0.1 x10E3/uL 0.0-0.2 [facility] ([facility] Immature granulocytes [#/volume] in Blood by Automated count Laboratory test result [facility] ([facility] ) Nucleated erythrocytes/100 leukocytes [Ratio] in Blood by Automated count Laboratory test result MED[facility] ([facility] ) Immature granulocytes/100 leukocytes in Blood by Autom ated count Laboratory test result [facility] ([facility] ) Morphology [Interpretation] in Blood Narrative Laboratory test result MED[facility] ([facility] ) Manual differential was performed. Bands Laboratory test result MED[facility] ([facility] ) Promyelocytes [#] in Body fluid by Manual count Laboratory test resul t [facility] ([facility] Metamyelocytes/100 leukocytes in Blood 1 % 0-0 [facility] Myelocytes [#/volume] in Blood 4 % 0-0 [facility] ([facility] Laboratory test finding (navigational concept) Laboratory test result [facility] ([facility] Laboratory test finding (navigational concept) Laboratory test result [facility] ([facility] Laboratory test finding (navigational concept) Laboratory test result [facility] ([facility] ID Date Data Source [id number] 12/24/2019 04:01:00 PM EDT MED[facility] ([facility] Name Value Range Interpretation Code Description Data Pennie rce(s) Supporting Document(s) Color Urine Laboratory test result M EDENT ([facility] Appearance of Urine Laboratory test result [facility] ([facility] Specific [place] 1.025 1.00-1.03 [facility] ([facility] PH Urine 5.0 5.0-8.0 [facility] ([facility] Glucose Urine Laboratory test result [facility] ([facility] Bilirubin.total [Presence] in Urine by Test strip Laboratory test res ult [facility] ([facility] Ketones Laboratory test result [facility] ([facility] Protein Urine Laboratory test result [facility] ([facility] Blood Urine Laboratory test result M EDENT ([facility] Urobilinogen 0.2 EU/dl 0.2-1.0 [facility] ([facility] Nitrite Laboratory test result [facility] ([facility] Leukocytes Laboratory test result ME DENT ([facility] ID Date Data Source [id number] 12/24/2019 04:01:00 PM EDT MED[facility] ([facility] Name Value Range Interpretation Code Description Data Pennie rce(s) Supporting Document(s) Laboratory test finding (navigational concept) Laboratory test result [facility] ([facility]) Appearance of Urine Laboratory test result MED[facility] ([facility] ) Specific [place] 1.025 1.00-1.03 [facility] ([facility] Laboratory test finding (navigational concept) 5.0 5.0-8.0 [facility] ([facility]) Laboratory test finding (navigational concept) Laboratory test result [facility] ([facility]) Laboratory test finding (navigational concept) Laboratory test result [facility] ([facility]) Bilirubin.total [Presence] in Urine by Test strip Laboratory test res ult MEDENT ([facility]) Urobilinogen 0.2 EU/dl 0.2-1.0 MED[facility] ([facility]) Laboratory test finding (navigational concept) Laboratory test result MED[facility] ([facility]) Laboratory test finding (navigational concept) Laboratory test result MED[facility] ([facility]) Laboratory test finding (navigational concept) Laboratory test result [facility] ([facility]) Nitrite Laboratory test result [facility] ([facility]) ID Date Data Source [id number] 12/07/2019 01:14:00 PM EDT MED[facility] ([facility] Name Value Range Interpretation Code Description Data Pennie rce(s) Supporting Document(s) Magnesium [Mass/volume] in Serum or Plasma 1.8 mg/dL 1.8-2 .4 Normal (applies to non-numeric results) [facility] ([facility] ID Date Data Source [id number] 12/07/2019 01:14:00 PM EDT MED[facility] ([facility] Name Value Range Interpretation Code Description Data Pennie rce(s) Supporting Document(s) Blood Urea Nitrogen 22 mg/dL 7-18 Above high normal [facility] ([facility] Glucose, Fasting 126 mg/dL 70-100 Above high normal M EDENT ([facility] Creatinine For GFR 1.03 mg/dL 0.70-1.30 Normal (applies to non -numeric results) [facility] ([facility] Sodium Level 144 meq/L 136-145 Normal (applies to non-numeric res ults) [facility] ([facility] Glomerular Filtration Rate Laboratory test result Normal (applies to non- numeric results) [facility] ([facility] ) <content>Units are mL/min/1.73 m2</content>
<content></content>
<content>Chronic Kidney Disease Staging per NKF:</content>
<content></content>
<content>Stage I & II GFR >=60 Normal to Mildly Decreased</content>
<content>Stage III GFR 30- 59 Moderately Decreased</content>
<content>Stage IV GFR 15-29 Severely Decreased</content>
<content>Stage V GFR <15 Very Little GFR Left</content>
<content>ESRD GFR <15 on TALENT ACQUISITION ASSOCIATE</content>
<content></content> Potassium Serum 3.9 meq/L 3.5-5.1 Normal (applies to non-numeric results) [facility] ([facility] Chloride Level 110 meq/L 98-107 Above high normal MED ENT ([facility] Carbon Dioxide Level 30 meq/L 21-32 Normal (applies to non-num romeo results) [facility] ([facility] Anion Gap 4 meq/L 8-16 Below low normal [facility] ( [facility] Calcium Level 8.5 mg/dL 8.8-10.2 Below low normal MEDEN T ([facility] ID Date Data Source [id number] 12/07/2019 01:14:00 PM EDT MED[facility] ([facility] ) Name Value Range Interpretation Code Description Data Pennie rce(s) Supporting Document(s) Magnesium [Mass/volume] in Serum or Plasma 1.8 mg/dL 1.8-2.4 [facility] ([facility] ) ID Date Data Source [id number] 12/07/2019 01:14:00 PM EDT [facility] ([facility] [facility] Name Value Range Interpretation Code Description Data Pennie rce(s) Supporting Document(s) Blood Urea Nitrogen 22 mg/dL 7-18 [facility] ([facility], ) Glucose, Fasting 126 mg/dL 70-100 [facility] ([facility], ) Glomerular Filtration Rate Laboratory test result [facility] ([facility], ) <content>Units are mL/min/1.73 m2</content>
<content></content>
<content>Chronic Kidney Disease Staging per NKF:</content>
<content></content>
<content>Stage I & II GFR >=60 Normal to Mildly Decreased</content>
<content>Stage III GFR 30- 59 Moderately Decreased</content>
<content>Stage IV GFR 15-29 Severely Decreased</content>
<content>Stage V GFR <15 Very Little GFR Left</content>
<content>ESRD GFR <15 on [employer]ITION [employer]OCIATE</content>
<content></content>
<content></content> Sodium Level 144 meq/L 136-145 [facility] ([facility], ) Creatinine For GFR 1.03 mg/dL 0.70-1.30 [facility] ([facility], ) Carbon Dioxide Level 30 meq/L 21-32 [facility] ([facility], ) Chloride Level 110 meq/L 98-107 [facility] ([facility], ) Potassium Serum 3.9 meq/L 3.5-5.1 [facility] ([facility], ) Calcium Level 8.5 mg/dL 8.8-10.2 [facility] ([facility], ) Anion Gap 4 meq/L 8-16 [facility] ([facility], ) ID Date Data Source [id number] 11/12/2019 03:40:00 PM EDT [facility] ([facility] Name Value Range Interpretation Code Description Data Pennie rce(s) Supporting Document(s) Ammonia [Moles/volume] in Plasma 78 ug/dL 28-135 [facility] ([facility] Please note reference interval change* * ID Date Data Source [id number] 11/12/2019 03:40:00 PM EDT [facility] ([facility] Name Value Range Interpretation Code Description Data Pennie rce(s) Supporting Document(s) Thyrotropin [Units/volume] in Serum or Plasma 1.239 ulU/mL 0.60-4.8 [facility] ([facility] ID Date Data Source [id number] 11/12/2019 03:39:00 PM EDT [facility] ([facility] Name Value Range Interpretation Code Description Data Pennie rce(s) Supporting Document(s) No Urine Received Laboratory [facility] Test(s) 811362-Vgswfqevwahnu Acid, U was developed and its performance characteristics determined by [facility]. It has not been cleared or approved by the Food and Drug Administration. ID Date Data Source [id number] 11/12/2019 03:39:00 PM EDT [facility] ([facility] Name Value Range Interpretation Code Description Data Pennie rce(s) Supporting Document(s) Glucose [Mass/volume] in Serum or Plasma 158 mg/dL 65-99 Above high normal [facility] ([facility] Test(s) 771852-Cxmxwtctugiqg Acid, U was developed and its performance characteristics determined by [facility]. It has not been cleared or approved by the Food and Drug Administration. Creatinine [Mass/volume] in Serum or Plasma 1.26 mg/dL 0.76-1.27 [facility] ([facility] Test(s) 045250-Zkxinsvihfyab Acid, U was developed and its performance characteristics determined by [facility]. It has not been cleared or approved by the Food and Drug Administration. BUN 21 mg/dL 8-27 [facility] ([facility] Test(s) 885391-Spqpuioyfqkhr Acid, U was developed and its performance characteristics determined by [facility]. It has not been cleared or approved by the Food and Drug Administration. eGFR If NonAfricn Am 52 mL/min/1.73 Below low normal [facility] ([facility] Test(s) 534898-Qpajcheufruzx Acid, U was developed and its performance characteristics determined by [facility]. It has not been cleared or approved by the Food and Drug Administration. Urea nitrogen/Creatinine [Mass Ratio] in Serum or Plasma 17 1 0-24 [facility] ([facility] Test(s) 130240-Vwazrordlwuez Acid, U was developed and its performance characteristics determined by [facility]. It has not been cleared or approved by the Food and Drug Administration. eGFR If Africn Am 60 mL/min/1.73 [facility] ([facility] Test(s) 917442-Prkvdokeguzne Acid, U was developed and its performance characteristics determined by [facility]. It has not been cleared or approved by the Food and Drug Administration. Sodium [Moles/volume] in Serum or Plasma 144 mmol/L 134-144 [facility] ([facility] Test(s) 728519-Iakzvgmcekqpa Acid, U was developed and its performance characteristics determined by [facility]. It has not been cleared or approved by the Food and Drug Administration. Chloride [Moles/volume] in Serum or Plasma 105 mmol/L 96-106 [facility] ([facility] Test(s) 655091-Mddkyqbmmqldu Acid, U was developed and its performance characteristics determined by [facility]. It has not been cleared or approved by the Food and Drug Administration. Potassium [Moles/volume] in Serum or Plasma 4.2 mmol/L 3.5-5.2 [facility] ([facility] Test(s) 097244-Jfgswslmjcqcs Acid, U was developed and its performance characteristics determined by [facility]. It has not been cleared or approved by the Food and Drug Administration. Calcium [Mass/volume] in Serum or Plasma 8.6 mg/dL 8.6-10.2 [facility] ([facility] Test(s) 358061-Thepmlzzjutuh Acid, U was developed and its performance characteristics determined by [facility]. It has not been cleared or approved by the Food and Drug Administration. Carbon dioxide, total [Moles/volume] in Serum or Plasma 28 mmol/L 20 -29 [facility] ([facility] Test(s) 836821-Cnhmwptvamqwk Acid, U was developed and its performance characteristics determined by [facility]. It has not been cleared or approved by the Food and Drug Administration. Protein [Mass/volume] in Serum or Plasma 5.4 g/dL 6.0-8.5 Below low normal [facility] ([facility] Test(s) 270774-Fauhilcrarlmv Acid, U was developed and its performance characteristics determined by [facility]. It has not been cleared or approved by the Food and Drug Administration. Albumin [Mass/volume] in Serum or Plasma 3.6 g/dL 3.6-4.6 [facility] ([facility] Test(s) 175743-Tkgsodqifcsgb Acid, U was developed and its performance characteristics determined by [facility]. It has not been cleared or approved by the Food and Drug Administration. Globulin [Mass/volume] in Serum by calculation 1.8 g/dL 1.5-4.5 [facility] ([facility] Test(s) 160566-Anvfetyydkzya Acid, U was developed and its performance characteristics determined by [facility]. It has not been cleared or approved by the Food and Drug Administration. Albumin/Globulin [Mass Ratio] in Serum or Plasma 2.0 1.2-2.2 [facility] ([facility] Test(s) 955877-Uidubehshhyld Acid, U was developed and its performance characteristics determined by [facility]. It has not been cleared or approved by the Food and Drug Administration. Alkaline phosphatase [Enzymatic activity/volume] in Serum or Plasma 45 IU/L 39-117 [facility] Test(s) 236330-Dvihmrnnyqdus Acid, U was developed and its performance characteristics determined by [facility]. It has not been cleared or approved by the Food and Drug Administration. Bilirubin.total [Mass/volume] in Serum or Plasma 0.3 mg/dL 0.0-1.2 [facility] ([facility] Test(s) 103281-Zvuuyugufcybs Acid, U was developed and its performance characteristics determined by [facility]. It has not been cleared or approved by the Food and Drug Administration. Aspartate aminotransferase [Enzymatic activity/volume] in Serum or Plasma 19 IU/L 0-40 [facility] Test(s) 766779-Cambekrufddfc Acid, U was developed and its performance characteristics determined by [facility]. It has not been cleared or approved by the Food and Drug Administration. Alanine aminotransferase [Enzymatic activity/volume] in Seru m or Plasma 16 IU/L 0-44 [facility] Test(s) 774940-Jlmgvdizimftm Acid, U was developed and its performance characteristics determined by [facility]. It has not been cleared or approved by the Food and Drug Administration. ID Date Data Source [id number] 11/12/2019 03:39:00 PM EDT [facility] ([facility] Name Value Range Interpretation Code Description Data Pennie rce(s) Supporting Document(s) Leukocytes [#/volume] in Blood by Automated count 12.7 x10E3/uL 3.4-10.8 Above high normal [facility] ([facility] ) Test(s) 758283-Akpjystzroxlo Acid, U was developed and its performance characteristics determined by [facility]. It has not been cleared or approved by the Food and Drug Administration. Erythrocytes [#/volume] in Blood by Automated count 3.51 x10E6/u L 4.14-5.80 Below low normal [facility] ([facility] ) Test(s) 908218-Kolzbwgkucpbt Acid, U was developed and its performance characteristics determined by [facility]. It has not been cleared or approved by the Food and Drug Administration. Hemoglobin [Mass/volume] in Blood 9.9 g/dL 13.0-17.7 Below low nor mal [facility] ([facility] Test(s) 252620-Woqzqxwmfcimn Acid, U was developed and its performance characteristics determined by [facility]. It has not been cleared or approved by the Food and Drug Administration. Hematocrit [Volume Fraction] of Blood by Automated count 30.5 % 37.5-51.0 Below low normal [facility] ([facility] ) Test(s) 985354-Htlcryzgrgdxd Acid, U was developed and its performance characteristics determined by [facility]. It has not been cleared or approved by the Food and Drug Administration. Erythrocyte mean corpuscular volume [Entitic volume] by Auto mated count 87 fL 79-97 [facility] ([facility] Test(s) 671863-Wzwpvmhvbhewk Acid, U was developed and its performance characteristics determined by [facility]. It has not been cleared or approved by the Food and Drug Administration. Erythrocyte mean corpuscular hemoglobin [Entitic mass] by Automated count 28.2 pg 26.6-33.0 [facility] [place] Test(s) 882388-Hcxjxgbyvrvfu Acid, U was developed and its performance characteristics determined by [facility]. It has not been cleared or approved by the Food and Drug Administration. Erythrocyte mean corpuscular hemoglobin concentration [Mass/volume] by Automated count 32.5 g/dL 31.5-35.7 [facility] ([facility] Test(s) 735313-Nxgryeqmdmyzi Acid, U was developed and its performance characteristics determined by [facility]. It has not been cleared or approved by the Food and Drug Administration. Erythrocyte distribution width [Ratio] by Automated count 17.7 % 11.6-15.4 Above high normal [facility] ([facility] ) Test(s) 729035-Sitatcbhaoddm Acid, U was developed and its performance characteristics determined by [facility]. It has not been cleared or approved by the Food and Drug Administration. Platelets [#/volume] in Blood by Automated count 267 x10E3/uL 150-450 [facility] ([facility] Test(s) 125696-Xeyezcufaqqpx Acid, U was developed and its performance characteristics determined by [facility]. It has not been cleared or approved by the Food and Drug Administration. Neutrophils 80 % [facility] ([facility] Test(s) 006653-Kvjuhoafzpxmz Acid, U was developed and its performance characteristics determined by [facility]. It has not been cleared or approved by the Food and Drug Administration. Lymphs 7 % [facility] ([facility] Test(s) 693584-Nalpjefnmqxwf Acid, U was developed and its performance characteristics determined by [facility]. It has not been cleared or approved by the Food and Drug Administration. Monocytes/100 leukocytes in Blood by Automated count 8 % [facility] ([facility] Test(s) 237595-Cquvurxcokcfb Acid, U was developed and its performance characteristics determined by [facility]. It has not been cleared or approved by the Food and Drug Administration. Eosinophils/100 leukocytes in Blood by Automated count 0 % [facility] ([facility] Test(s) 593994-Rixbrhuwpxmev Acid, U was developed and its performance characteristics determined by [facility]. It has not been cleared or approved by the Food and Drug Administration. Basophils/100 leukocytes in Blood by Automated count 2 % [facility] ([facility] Test(s) 713297-Ykluhlayigfvm Acid, U was developed and its performance characteristics determined by [facility]. It has not been cleared or approved by the Food and Drug Administration. Immature cells [#/volume] in Blood Laboratory test result [facility] ([facility] Test(s) 865195-Ermtynjusqmwu Acid, U was developed and its performance characteristics determined by [facility]. It has not been cleared or approved by the Food and Drug Administration. Lymphocytes [#/volume] in Blood 0.9 x10E3/uL 0.7-3.1 [facility] ([facility] Test(s) 545968-Wmjtgzepfdmpj Acid, U was developed and its performance characteristics determined by [facility]. It has not been cleared or approved by the Food and Drug Administration. Neutrophils [#/volume] in Blood by Automated count 10.2 x10E3/uL 1.4-7.0 Above high normal [facility] ([facility] ) Test(s) 424418-Kuauwegmgutct Acid, U was developed and its performance characteristics determined by [facility]. It has not been cleared or approved by the Food and Drug Administration. Monocytes [#/volume] in Blood 1.0 x10E3/uL 0.1-0.9 Above high norm al [facility] ([facility] Test(s) 058736-Xnanbvxvlzdjo Acid, U was developed and its performance characteristics determined by [facility]. It has not been cleared or approved by the Food and Drug Administration. Basophils [#/volume] in Blood by Automated count 0.3 x10E3/uL 0.0-0.2 Above high normal [facility] ([facility] ) Test(s) 363232-Dniuwxrbikbpy Acid, U was developed and its performance characteristics determined by [facility]. It has not been cleared or approved by the Food and Drug Administration. Eosinophils [#/volume] in Blood by Automated count 0.0 x10E3/uL 0.0-0 .4 [facility] ([facility] Test(s) 784463-Wphciyurjaobj Acid, U was developed and its performance characteristics determined by [facility]. It has not been cleared or approved by the Food and Drug Administration. Immature granulocytes/100 leukocytes in Blood by Autom ated count Laboratory test result [facility] [place] Test(s) 245192-Cxqjqrpjvorxc Acid, U was developed and its performance characteristics determined by [facility]. It has not been cleared or approved by the Food and Drug Administration. Nucleated erythrocytes/100 leukocytes [Ratio] in Blood by Automated count Laboratory test result [facility] ([facility] Test(s) 673096-Nugcywitkutkp Acid, U was developed and its performance characteristics determined by [facility]. It has not been cleared or approved by the Food and Drug Administration. Immature granulocytes [#/volume] in Blood by Automated count Laboratory test result [facility] Test(s) 804327-Uekirfbtvjuwk Acid, U was developed and its performance characteristics determined by [facility]. It has not been cleared or approved by the Food and Drug Administration. Morphology [Interpretation] in Blood Narrative Laboratory test result [facility] ([facility] Test(s) 670300-Uesujqpulrsoj Acid, U was developed and its performance characteristics determined by [facility]. It has not been cleared or approved by the Food and Drug Administration. Bands Laboratory test result [facility] ([facility] Test(s) 919853-Ezntcoovvrkzy Acid, U was developed and its performance characteristics determined by [facility]. It has not been cleared or approved by the Food and Drug Administration. Myelocytes Laboratory test result [facility] ([facility] Test(s) 992157-Oetnypyoqovos Acid, U was developed and its performance characteristics determined by [facility]. It has not been cleared or approved by the Food and Drug Administration. Metamyelocytes 3 % 0-0 Above high normal [facility] ([facility] Test(s) 352114-Rveujdoxzsdon Acid, U was developed and its performance characteristics determined by [facility]. It has not been cleared or approved by the Food and Drug Administration. Promyelocytes Laboratory test result [facility] ([facility] Test(s) 918177-Xtlzwjmalhkxb Acid, U was developed and its performance characteristics determined by [facility]. It has not been cleared or approved by the Food and Drug Administration. Laboratory test finding (navigational concept) Laboratory test result [facility] ([facility] Test(s) 473252-Enlkbcfvowqac Acid, U was developed and its performance characteristics determined by [facility]. It has not been cleared or approved by the Food and Drug Administration. Laboratory test finding (navigational concept) Laboratory test result [facility] ([facility] Test(s) 981874-Xkzmjgklzchmf Acid, U was developed and its performance characteristics determined by [facility]. It has not been cleared or approved by the Food and Drug Administration. Laboratory test finding (navigational concept) Laboratory test result [facility] ([facility] Test(s) 941263-Hmlrlwyjctddy Acid, U was developed and its performance characteristics determined by [facility]. It has not been cleared or approved by the Food and Drug Administration. ID Date Data Source [id number] 11/12/2019 03:39:00 PM EDT [facility] Name Value Range Interpretation Code Description Data Pennie rce(s) Supporting Document(s) Cobalamin (Vitamin B12) [Mass/volume] in Serum or Plasma 412 pg/mL 2 32-1245 [facility] ([facility] Test(s) 628391-Erzgqsdwjbcws Acid, U was developed and its performance characteristics determined by [facility]. It has not been cleared or approved by the Food and Drug Administration. ID Date Data Source [id number] 10/27/2019 02:53:00 AM EDT [facility] [id number] Name Value Range Interpretation Code Description Data Pennie rce(s) Supporting Document(s) TROPONIN I < 0.017 ng/mL 0.0-0.056 [facility] ID Date Data Source [id number] 10/26/2019 08:42:00 PM EDT [facility] [id number] Name Value Range Interpretation Code Description Data Pennie rce(s) Supporting Document(s) TROPONIN I < 0.017 ng/mL 0.0-0.056 [facility] ID Date Data Source [id number] 10/26/2019 04:06:00 PM EDT [facility] TSYSORDER [id number] Name Value Range Interpretation Code Description Data Pennie rce(s) Supporting Document(s) URINE COLOR. [facility] URINE APPEARANCE CLEAR [facility] SPECIFIC GRAVITY,URINE 1.020 1.001-1.035 [facility] URINE LEUKOCYTE ESTERASE NEGATIVE NEGATIVE [facility] URINE NITRATE NEGATIVE NEGATIVE [facility] PH,URINE 5.5 5.0-9.0 [facility] URINE PROTEIN NEGATIVE mg/[facility] GLUCOSE (UA) NEGATIVE mg/dL NEGATIVE [facility] URINE KETONE NEGATIVE mg/[facility] UROBILINOGEN NORMAL(0.2-1) mg/dL 0-1 [facility] URINE BILIRUBIN NEGATIVE NEGATIVE [facility] URINE BLOOD TRACE NEGATIVE H [facility] ID Date Data Source [id number] 10/26/2019 04:06:00 PM EDT [facility] TSYSORDER [id number] Name Value Range Interpretation Code Description Data Pennie rce(s) Supporting Document(s) URINE RBC 0-2 /hpf 0-3 [facility] URINE WBC 0-2 /hpf 0-5 [facility] URINE EPITHELIAL CELLS 1+ /hpf 0 [facility] ID Date Data Source [id number] 10/26/2019 03:34:00 PM EDT [facility] DATE OF EXAMINATION: 10/26/2019 13:27 EDT TECHNIQUE: 1 views of the pelvis were obtained. HISTORY: Fall There is normal alignment and position of the bones of the pelvis. No evidencefor fractures are identified. The hips also appear unremarkable. 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 Electronically signed in [id number] by: Jose Noe M.D. 10/26/2019 15:28 EDT Name Value Range Interpretation Code Description Data Pennie rce(s) Supporting Document(s) ID Date Data Source [id number] 10/28/2019 09:06:00 AM EDT [facility] Name Value Range Interpretation Code Description Data Pennie rce(s) Supporting Document(s) SARS-CoV-2 Antibody, IgM Negative Negative [facility] This sample does not contain detectable SARS-CoV-2 IgM antibodies.This negative result does not rule out SARS-CoV-2 infection.Correlation with epidemiologic risk factors and other clinical andlaboratory findings is recommended. Serologic results should not beused as the sole basis to diagnose or exclude recent [id number]. ID Date Data Source [id number] 10/28/2019 02:07:00 PM EDT [facility] Name Value Range Interpretation Code Description Data Pennie rce(s) Supporting Document(s) SARS-CoV-2 Antibody, IgG Positive Negative Abnorma l (applies to non-numeric results) [facility] Results suggest recent or prior infectio n with SARS-CoV-2. Correlationwith epidemiologic risk factors and other clinical and laboratoryfindings is recommended. Serologic results should not be used as thesole basis to diagnose or exclude recent SARS-CoV-2 infection. Falsepositive results infrequently occur due to prior infection with otherhuman Coronaviruses.This assay was performed using the Lombardi SARS-CoV-2 IgG assay. ID Date Data Source [id number] 10/28/2019 04:06:00 PM EDT [facility] Name Value Range Interpretation Code Description Data Pennie rce(s) Supporting Document(s) SARS-CoV-2 Antibody, IgA Negative Negative [facility] This sample does not contain detectable SARS-CoV-2 IgA antibodies.This negative result does not rule out SARS-CoV-2 infection.Correlation with epidemiologic risk factors and other clinical andlaboratory findings is recommended. Serologic results should not beused as the sole basis to diagnose or exclude recent [id number]. ID Date Data Source [id number] 10/26/2019 03:04:00 PM EDT [facility] TSYSORDER [id number] Name Value Range Interpretation Code Description Data Pennie rce(s) Supporting Document(s) PARTIAL THROMBOPLASTIN TIME 23.1 SECONDS 21.4-30.2 [facility] ID Date Data Source [id number] 10/26/2019 03:04:00 PM EDT [facility] TSYSORDER [id number] Name Value Range Interpretation Code Description Data Pennie rce(s) Supporting Document(s) PROTHROMBIN TIME (PATIENT) 11.3 SECONDS 9.2-11.6 [facility] INR 1.09 0.87-1.06 H [facility] ID Date Data Source [id number] 11/01/2019 12:06:00 PM EDT [facility] Name Value Range Interpretation Code Description Data Pennie rce(s) Supporting Document(s) BLOOD CULTURE, ROUTINE Final report . [facility] 11/01/19 1206: BLOOD CULT, RT previousl y reported as: Preliminary report BC RESULT1 Comment . [facility] No aerobic or anaerobic growth in five d ays.Performed at: [facility] [address] [id number] Director: Linda Garsia MD, Phone: [phone]/03/20 1206: BC RESULT1 previously reported as: Comment No growth in 36 - 48 hours. Performed at: [facility] [address] [id number] Architectural Inspector: Linda Garsia MD, Phone: [phone] 10/29/19 1405: BC RESULT1 previously reported as: Comment No growth after 16-24 hours. Performed at: [facility] [address] [id number] Architectural Inspector: Linda Garsia MD, Phone: [phone] @ Edited by: @ Reason: [] ID Date Data Source [id number] 11/01/2019 12:05:00 PM EDT [facility] Name Value Range Interpretation Code Description Data Pennie rce(s) Supporting Document(s) Blood Culture, Routine Final report Lab orp ID Date Data Source [id number] 11/01/2019 12:05:00 PM EDT [facility] Name Value Range Interpretation Code Description Data Pennie rce(s) Supporting Document(s) Result 1 [facility] No aerobic or anaerobic growth in five d ays. ID Date Data Source [id number] 10/26/2019 02:35:00 PM EDT [facility] TSYSORDER [id number] Name Value Range Interpretation Code Description Data Pennie rce(s) Supporting Document(s) BLOOD TYPE ABO O [facility] RH TYPE POSITIVE [facility] ANTIBODY SCREEN NEGATIVE [facility] ID Date Data Source [id number] 10/26/2019 02:45:00 PM EDT [facility] TSYSORDER [id number] Name Value Range Interpretation Code Description Data Pennie rce(s) Supporting Document(s) C REACTIVE PROTEIN 10.3 mg/L 0.0-3.0 [facility] ID Date Data Source [id number] 10/26/2019 02:45:00 PM EDT [facility] TSYSORDER [id number] [id number] Name Value Range Interpretation Code Description Data Pennie rce(s) Supporting Document(s) MAGNESIUM 1.7 mg/dL 1.8-2.4 L [facility] ID Date Data Source [id number] 10/26/2019 02:45:00 PM EDT [facility] TSYSORDER [id number] Name Value Range Interpretation Code Description Data Pennie rce(s) Supporting Document(s) TROPONIN I < 0.017 ng/mL 0.0-0.056 [facility] ID Date Data Source [id number] 10/26/2019 03:10:00 PM EDT [facility] TSYSORDER [id number] Name Value Range Interpretation Code Description Data Pennie rce(s) Supporting Document(s) CREATINE PHOSPHOKINASE 34 U/L 39-308 [facility] ID Date Data Source [id number] 10/26/2019 02:45:00 PM EDT [facility] TSYSORDER [id number] Name Value Range Interpretation Code Description Data Pennie rce(s) Supporting Document(s) LIPASE 147 U/L 73-393 [facility] ID Date Data Source [id number] 10/26/2019 02:45:00 PM EDT [facility] TSYSORDER [id number] Name Value Range Interpretation Code Description Data Pennie rce(s) Supporting Document(s) GLUCOSE 128 mg/dL 74-106 H [facility] BLOOD UREA NITROGEN 18 mg/dL 7-18 [facility] ital CREATININE 1.1 mg/dL 0.7-1.3 [facility] SODIUM 139 mmol/L 136-145 [facility] POTASSIUM 4.0 mmol/L 3.5-5.1 [facility] CHLORIDE 104 mmol/L 98-107 [facility] CO2 29 mmol/L 21-32 [facility] CALCIUM 8.6 mg/dL 8.5-10.1 [facility] ANION GAP 6.0 mmol/L 5-12 [facility] GLOMERULAR FILTRATION RATE 64 mL/min [facility] GFR IS CALCULATED IN mL/min/1.73m2 ANAY L FUNCTION: >90MILDLY DECREASED: 60-89MILDY TO MODERATELY DECREASED: 45-59 MODERATELY TO SEVERELY DECREASED: 30-44SEVERELY DECREASED: 15-29RENAL FAILURE: <15 AST 23 U/L 15-37 [facility] ALT 19 U/L 12-78 [facility] ALKALINE PHOSPHATASE 31 U/L 46-116 L [facility] pital TOTAL BILIRUBIN 0.5 mg/dL 0.2-1.0 [facility] TOTAL PROTEIN 5.8 g/dl 6.4-8.2 L [facility] ALBUMIN 2.8 gm/dL 3.4-5.0 *L [facility] ID Date Data Source [id number] 10/26/2019 02:59:00 PM EDT [facility] TSYSORDER [id number] Name Value Range Interpretation Code Description Data Pennie rce(s) Supporting Document(s) Adenovirus Not Detected Detected Not [facility] ospital Coronavirus 229E Not Detected Detected Not [facility] Coronavirus HKU1 Not Detected Detected Not [facility] Coronavirus NL63 Not Detected Detected Not [facility] Coronavirus OC43 Not Detected Detected Not [facility] Sars Cov 2 Not Detected Detected Not [facility] Metapneumovirus Not Detected Detected Not [facility] Human Rhinovirus DETECTED Detected Not [facility] Influenza A Not Detected Detected Not [facility] Influenza B Not Detected Detected Not [facility] Parainfluenza Virus 1 Not Detected Detected Not [facility] Parainfluenza Virus 2 Not Detected Detected Not [facility] Parainfluenza Virus 3 Not Detected Detected Not [facility] Parainfluenza Virus 4 Not Detected Detected Not [facility] Respiratory Syncytial Virus Not Detected Detected Not [facility] Bordetella parapertus ([id number]) Not Detected Detected Not [facility] Bordetella pertussis (ptxP) Not Detected Detected Not [facility] Chlamydia pneumoniae Not Detected Detected Not [facility] Mycoplasma pneumoniae Not Detected Detected Not [facility] The Above results have been determined b y using the [employer] system.FilmArray is an automated in vitro diagnostic system thatutilizes nested multiplex Polymerase Chain Reaction (PCR)and high-resolution melting analysis to detect and identifymultiple nucleic acid targets from clinical specimens. ID Date Data Source [id number] 10/26/2019 02:48:00 PM EDT [facility] TSYSORDER [id number] Name Value Range Interpretation Code Description Data Pennie rce(s) Supporting Document(s) LACTIC ACID 0.9 mmol/L 0.4-2.0 [facility] ID Date Data Source [id number] 10/26/2019 02:45:00 PM EDT [facility] TSYSORDER [id number] Name Value Range Interpretation Code Description Data Pennie rce(s) Supporting Document(s) TSH 1.23 uIU/mL 0.36-3.74 [facility] ID Date Data Source [id number] 10/26/2019 02:45:00 PM EDT [facility] TSYSORDER [id number] Name Value Range Interpretation Code Description Data Pennie rce(s) Supporting Document(s) FREE T4 1.40 ng/dL 0.76-1.46 [facility] ID Date Data Source [id number] 10/26/2019 02:14:00 PM EDT [facility] TSYSORDER [id number] Name Value Range Interpretation Code Description Data Pennie rce(s) Supporting Document(s) WHITE BLOOD COUNT 12.6 K/mm3 4.0-10.0 H [facility] RED BLOOD COUNT 3.45 M/mm3 4.50-6.00 L [facility] l HEMOGLOBIN 9.8 gm/dL 14.0-18.0 L [facility] HEMATOCRIT 29.6 % 42.0-54.0 L [facility] MEAN CELL VOLUME 85.8 fl 80-96 [facility] MEAN CORPUSCULAR HEMOGLOBIN 28.4 pg 27.0-31.0 [facility] MEAN CORPUSCULAR HGB CONC 33.1 g/dl 32.0-36.0 [facility] RED CELL DISTRIBUTION WIDTH 18.3 % 10.0-14.5 H [facility] PLATELET COUNT 214 K/mm3 172-450 [facility] MEAN PLATELET VOLUME 10.8 fl 9.0-13.0 [facility] pital GRAN % 75.1 % 50-80.0 [facility] IG% 2.5 % 0.0-0.2 *H [facility] LYMPH % 4.4 % 25.0-50.0 *L [facility] MONO % 16.8 % 2.0-10.0 H [facility] EOS % 0.5 % 0-5.0 [facility] BASO % 0.7 % 0.0-2.0 [facility] GRAN # 9.5 K/mm3 2.0-8.00 H [facility] IG# 0.3 K/mm3 0.0-0.2 H [facility] LYMPH # 0.6 K/mm3 1.0-5.0 L [facility] MONO # 2.1 K/mm3 0.10-1.20 H [facility] EOS # 0.1 K/mm3 0.0-0.5 [facility] BASO # 0.1 K/mm3 0.0-0.2 [facility] ID Date Data Source [id number] 10/26/2019 01:35:00 PM EDT [facility]SYS[facility] [id number] Name Value Range Interpretation Code Description Data Pennie rce(s) Supporting Document(s) NEUTROPHILS 83 % 50-80 H [facility] LYMPHOCYTE 6 % 25-50 L [facility] MONOCYTE 11 % 2.0-10.0 H [facility] ANISOCYTOSIS 2+ [facility] OVALOCYTES 1+ [facility] ACANTHOCYTES 1+ [facility] PLATELET ESTIMATE NORMAL N[facility]AL [facility]Y EXPECTED RESULTS:NORMAL= NORMOCHROMIC, NORMOCYTIC CELLSAbnormal Morphologic Findings > or = to 1+ are reported.Clinicopathologic correlation by the provider is required todetermine significance of finding. ID Date Data Source [id number] 10/26/2019 02:10:00 PM EDT [facility] TSYSORDER [id number] Name Value Range Interpretation Code Description Data Pennie rce(s) Supporting Document(s) PH 7.39 7.31-7.41 [facility] VENOUS PCO2 47.6 mmHg 41-51 [facility] VENOUS PO2 41 mmHg 35-42 [facility] VENOUS BLODD O2 SATURATION 68.5 % 68-77 [facility] VENOUS BLOOD HCO3 28.4 meq/L 24.0-25.0 [facility]EN[facility] BASE EXCESS 3.5 -3.0-3.0 H [facility] VENOUS BLOOD CO2 29.9 mmol/L 23.0-32.0 [facility] ID Date Data Source [id number] 11/01/2019 12:06:00 PM EDT [facility] Name Value Range Interpretation Code Description Data Pennie rce(s) Supporting Document(s) BLOOD CULTURE, ROUTINE Final report . [facility] 11/01/19 1206: BLOOD CULT, RT previousl y reported as: Preliminary report BC RESULT1 Comment . [facility] No aerobic or anaerobic growth in five d ays.Performed at: RN - [facility] [address] [id number] Director: Linda Garsia MD, Phone: [phone]/03/20 1206: BC RESULT1 previously reported as: Comment No growth in 36 - 48 hours. Performed at: RN - [facility] [address] [id number] Architectural Inspector: Linda Garsia MD, Phone: [phone] 10/29/19 1405: BC RESULT1 previously reported as: Comment No growth after 16-24 hours. Performed at: RN - [facility] [address] [id number] Architectural Inspector: Linda Garsia MD, Phone: [phone] @ Edited by: @ Reason: [] ID Date Data Source [id number] 11/01/2019 12:05:00 PM EDT [facility] Name Value Range Interpretation Code Description Data Pennie rce(s) Supporting Document(s) Blood Culture, Routine Final report [facility] ID Date Data Source [id number] 11/01/2019 12:05:00 PM EDT [facility] Name Value Range Interpretation Code Description Data Pennie rce(s) Supporting Document(s) Result 1 [facility] No aerobic or anaerobic growth in five d ays. ID Date Data Source [id number] 10/26/2019 03:12:00 PM EDT [facility] TSYSORDER [id number] Name Value Range Interpretation Code Description Data Pennie rce(s) Supporting Document(s) ERYTHROCYTE SEDIMENTATION RATE 12 mm/hr 0-20 [facility] ID Date Data Source [id number] 10/26/2019 02:45:00 PM EDT [facility] TSYSORDER [id number] Name Value Range Interpretation Code Description Data Pennie rce(s) Supporting Document(s) B-TYPE NATRIURETIC PEPTIDE 751 pg/ml 0-450 *H [facility] ID Date Data Source [id number] 10/26/2019 01:13:00 PM EDT [facility] DATE OF EXAMINATION: 10/26/2019 12:49 ED T BRAIN W/O CONTRAST, CERV SPINE W/O CONTRAST HISTORY: Fall. Patient is on blood thinners TECHNIQUE: This CT exam was performed using the following dose reduction techniques:automatic exposure control, adjustment of mA and/or kV according to thepatient's size, and use of iterative reconstruction technique. Standard contiguous axial spiral imaging was obtained from the skull basethrough the vertex without contrast administration and with coronalreformatting. FINDINGS: BRAIN: Basilar cisterns and ventricles appear normal. No space occupyinglesions, intracerebral edema, or any signs of mass effects are noted. Base ofthe skull appears normal. IMPRESSION: Ijjh-qe-fzioemmx diffuse cerebral atrophy of aging. DATE OF EXAMINATION: BRAIN W/O CONTRAST, CERV SPINE W/O CONTRAST HISTORY: Fall pain TECHNIQUE: This CT exam was performed using the following dose reduction techniques:automated exposure control, adjustment of mA and/or kV according to thepatient's size, and use of iterative reconstruction technique. Standard contiguous axial spiral imaging of the cervical spine was obtainedsagittal/coronal reformatting. FINDINGS:. Vertebral bodies are well mineralized and properly aligned. There is nofracture or subluxation. 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 Moderate to severe calcified plaque formation of both carotid bulbs and internalcarotid arteries Electronically signed in PS360 by: Jose Noe M.D. 10/26/2019 13:08 EDT Name Value Range Interpretation Code Description Data Pennie rce(s) Supporting Document(s) ID Date Data Source [id number] 10/26/2019 01:13:00 PM EDT [facility] DATE OF EXAMINATION: 10/26/2019 12:49 ED T BRAIN W/O CONTRAST, CERV SPINE W/O CONTRAST HISTORY: Fall. Patient is on blood thinners TECHNIQUE: This CT exam was performed using the following dose reduction techniques:automatic exposure control, adjustment of mA and/or kV according to thepatient's size, and use of iterative reconstruction technique. Standard contiguous axial spiral imaging was obtained from the skull basethrough the vertex without contrast administration and with coronalreformatting. FINDINGS: BRAIN: Basilar cisterns and ventricles appear normal. No space occupyinglesions, intracerebral edema, or any signs of mass effects are noted. Base ofthe skull appears normal. IMPRESSION: Bicv-mj-lxfxkxwf diffuse cerebral atrophy of aging. DATE OF EXAMINATION: BRAIN W/O CONTRAST, CERV SPINE W/O CONTRAST HISTORY: Fall pain TECHNIQUE: This CT exam was performed using the following dose reduction techniques:automated exposure control, adjustment of mA and/or kV according to thepatient's size, and use of iterative reconstruction technique. Standard contiguous axial spiral imaging of the cervical spine was obtainedsagittal/coronal reformatting. FINDINGS:. Vertebral bodies are well mineralized and properly aligned. There is nofracture or subluxation. 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 Moderate to severe calcified plaque formation of both carotid bulbs and internalcarotid arteries Electronically signed in PS360 by: Jose Noe M.D. 10/26/2019 13:08 EDT Name Value Range Interpretation Code Description Data Pennie li(s) Supporting Document(s) ID Date Data Source [id number] 10/26/2019 01:11:00 PM EDT [facility] DATE OF EXAMINATION: 10/26/2019 12:51 EDT CHEST 1 VIEW HISTORY: Injury TECHNIQUE: Single frontal radiograph of chest FINDINGS: No evidence of focal consolidation, pneumothorax or large pleural effusion.Lungs are clear. Mediastinal structures are unremarkable. No aggressive osseouslesions. Dual lead left-sided pacer device is noted. IMPRESSION: Moderate COPD Electronically signed in PS360 by: Jose Noe M.D. 10/26/2019 13:05 EDT Name Value Range Interpretation Code Description Data Pennie rce(s) Supporting Document(s) ID Date Data Source [id number] 10/26/2019 12:00:00 AM EDT [facility] Name Value Range Interpretation Code Description Data Pennie rce(s) Supporting Document(s) 2019 Novel Coronavirus RNA [facility] This lab was ordered by [facility] L aboratory and reported by [facility] Laboratory. ID Date Data Source [id number] 10/21/2019 02:54:00 PM EDT [facility] Name Value Range Interpretation Code Description Data Pennie rce(s) Supporting Document(s) Calcium [Mass/volume] in Serum or Plasma 8.5 [facility] ([facility]) Sodium 144 [facility] Carbon dioxide, total [Moles/volume] in Serum or Plasma 30 [facility] ([facility]) Potassium [Moles/volume] in Serum or Plasma 3.9 [facility] ([facility]) Chloride [Moles/volume] in Serum or Plasma 110 [facility] ([facility]) Glucose 126 70-100 [facility] Blood Urea Nitrogen 22 5-21 [facility] ([facility]) Creatinine 1.03 0.6-1.5 [facility] ([facility]) Glomerular filtration rate/1.73 sq M.pre dicted [Volume Rate/Area] in Serum or Plasma by Creatinine-based formula (MDRD) Laboratory test result [facility] ([facility]) ID Date Data Source [id number] 10/21/2019 02:54:00 PM EDT [facility]) Name Value Range Interpretation Code Description Data Pennie rce(s) Supporting Document(s) White Blood Count 9.6 4.3-10.9 [facility] ([facility]) Platelets 195 130-400 [facility]) Hemoglobin 9.5 13.0-17.0 [facility] ([facility] Red Blood Count 3.31 4.70-6.20 [facility] ([facility]) Hematocrit 29.8 39.0-50.0 [facility] ([facility]) ID Date Data Source [id number] 10/21/2019 02:54:00 PM EDT [facility] ([facility]) Name Value Range Interpretation Code Description Data Pennie rce(s) Supporting Document(s) Albumin [Mass/volume] in Serum or Plasma 2.8 [facility] ([facility]) Calcium [Mass/volume] in Serum or Plasma 8.5 [facility]) Alanine aminotransferase [Enzymatic activity/volume] in Serum or Pl asma 15 [facility] ([facility]) Alkaline phosphatase [Enzymatic activity/volume] in Serum or Plasma 3 8 [facility]) Chloride [Moles/volume] in Serum or Plasma 107 [facility]) Carbon dioxide, total [Moles/volume] in Serum or Plasma 31 [facility]) Sodium 140 [facility] Potassium [Moles/volume] in Serum or Plasma 3.9 [facility] ([facility]) Protein [Mass/volume] in Serum or Plasma 5.4 [facility] ([facility]) Urea nitrogen [Mass/volume] in Serum or Plasma 18 [facility]) Aspartate aminotransferase [Enzymatic activity/volume] in Serum or Plasma 15 [facility]) Glucose 88 70-100 [facility] Creatinine For GFR 1.07 [facility] ([facility]) ID Date Data Source [id number] 10/21/2019 10:00:00 AM EDT [facility] ([facility] Name Value Range Interpretation Code Description Data Pennie rce(s) Supporting Document(s) Glucose, Fasting 88 mg/dL 70-100 Normal (applies to non-numeric results) [facility] ([facility] Blood Urea Nitrogen 18 mg/dL 7-18 Normal (applies to non-nume cristian results) [facility] ([facility] Glomerular Filtration Rate Laboratory test result Normal (applies to non- numeric results) [facility] ([facility] ) <content>Units are mL/min/1.73 m2</content>
<content></content>
<content>Chronic Kidney Disease Staging per NKF:</content>
<content></content>
<content>Stage I & II GFR >=60 Normal to Mildly Decreased</content>
<content>Stage III GFR 30-59 Moderately Decreased</content>
<content>Stage IV GFR 15-29 Severely Decreased</content>
<content>Stage V GFR <15 Very Little GFR Left</content>
<content>ESRD GFR <15 on [employer]</content>
<content></content> Creatinine For GFR 1.07 mg/dL 0.70-1.30 Normal (applies to non -numeric results) [facility] ([facility] Chloride Level 107 meq/L 98-107 Normal (applies to non-numeric r esults) [facility] ([facility] Sodium Level 140 meq/L 136-145 Normal (applies to non-numeric res ults) [facility] ([facility] Potassium Serum 3.9 meq/L 3.5-5.1 Normal (applies to non-numeric results) [facility] ([facility] Calcium Level 8.5 mg/dL 8.8-10.2 Below low normal [facility] ([facility] Carbon Dioxide Level 31 meq/L 21-32 Normal (applies to non-num romeo results) [facility] ([facility] Anion Gap 2 meq/L 8-16 Below low normal [facility] ( [facility] Alkaline Phosphatase 38 U/L 45-117 Below low normal [facility] ([facility] Ast/Sgot 15 U/L 7-37 Normal (applies to non-numeric resul ts) [facility] ([facility] Alt/SGPT 15 U/L 12-78 Normal (applies to non-numeric resul ts) [facility] ([facility] Albumin 2.8 GM/DL 3.2-5.2 Below low normal [facility] ( [facility] Bilirubin,Total 0.3 mg/dL 0.2-1.0 Normal (applies to non-numeric results) [facility] ([facility] Total Protein 5.4 GM/DL 6.4-8.2 Below low normal [facility] ([facility] Albumin/Globulin Ratio 1.1 Normal (applies to non-n umeric results) [facility] ([facility] ID Date Data Source [id number] 10/21/2019 10:00:00 AM EDT [facility] ([facility] Name Value Range Interpretation Code Description Data Pennie rce(s) Supporting Document(s) Red Blood Count 3.31 10 4.30-6.10 Below low normal [facility] ([facility] White Blood Count 9.6 10 4.0-10.0 Normal (applies to non-numeri c results) [facility] ([facility] Mean Corpuscular Volume 90.0 fl 80.0-96.0 Normal ( applies to non-numeric results) [facility] ([facility] ) Hematocrit 29.8 % 42.0-52.0 Below low normal [facility] ( [facility] Hemoglobin 9.5 g/dL 13.5-17.5 Below low normal [facility] ( [facility] Red Cell Distribution Width 18.6 % 11.5-14.5 Above high normal [facility] ([facility] Mean Corpuscular Hemoglobin 28.7 pg 27.0-33.0 Norm al (applies to non-numeric results) [facility] ([facility] Mean Corpuscular HGB Conc 31.9 g/dL 32.0-36.5 Below low normal [facility] ([facility] Lymph % 7.9 % 24.0-44.0 Below low normal [facility] ( [facility] Platelet Count, Automated 195 10 150-450 Normal (applies to non-numeric results) [facility] ([facility] ) Neutrophils % 72.3 % 36.0-66.0 Above high normal MEDE NT ([facility] [place] % 14.5 % 0.0-5.0 Above high normal [facility] ([facility] Eos % 0.6 % 0.0-3.0 Normal (applies to non-numeric resul ts) [facility] ([facility] Baso % 0.4 % 0.0-1.0 Normal (applies to non-numeric resul ts) [facility] ([facility] Immature Granulocyte % 4.3 % 0-3.0 Above high normal [facility] ([facility] Nucleated Red Blood Cell % 0.0 % 0-0 Normal (applies to n on-numeric results) [facility] ([facility] Neutrophils # 6.9 10 1.5-8.5 Normal (applies to non-numeric re sults) [facility] ([facility] Eos # 0.1 10 0.0-0.5 Normal (applies to non-numeric resul ts) [facility] ([facility] Lymph # 0.8 10 1.5-5.0 Below low normal [facility] ( [facility] [place] # 1.4 10 0.0-0.8 Above high normal [facility] ([facility] Baso # 0.0 10 0.0-0.2 Normal (applies to non-numeric resul ts) [facility] ([facility] ID Date Data Source [id number] 10/11/2019 02:44:00 PM EDT [facility] ([facility] Name Value Range Interpretation Code Description Data Pennie rce(s) Supporting Document(s) Glu 214 mg/dL 70-110 Above high normal [facility] ([facility] CHRONIC KIDNEY DISEASE STAGING PER NKF: MALE GFR INTERPRETATION: 20-49 YRS: >60 mL/min Normal 50-59 YRS: >56 mL/min Normal 60-69 YRS: >49 mL/min Normal 70-79 YRS: >42 mL/min Normal 80 and above >35 mL/min Normal FEMALE GRF INTERPRETATION: 20-39 YRS: >60 mL/min Normal 40-49 YRS: >58 mL/min Normal 50-59 YRS: >51 mL/min Normal 60-69 YRS: >45 mL/min Normal 70-79 YRS: >39 mL/min Normal 80 and above >32 mL/min Normal BUN 19 mg/dL 8-23 [facility] ([facility] CHRONIC KIDNEY DISEASE STAGING PER NKF: MALE GFR INTERPRETATION: 20-49 YRS: >60 mL/min Normal 50-59 YRS: >56 mL/min Normal 60-69 YRS: >49 mL/min Normal 70-79 YRS: >42 mL/min Normal 80 and above >35 mL/min Normal FEMALE GRF INTERPRETATION: 20-39 YRS: >60 mL/min Normal 40-49 YRS: >58 mL/min Normal 50-59 YRS: >51 mL/min Normal 60-69 YRS: >45 mL/min Normal 70-79 YRS: >39 mL/min Normal 80 and above >32 mL/min Normal Creat 1.3 mg/dL 0.7-1.2 Above high normal [facility] ([facility] CHRONIC KIDNEY DISEASE STAGING PER NKF: MALE GFR INTERPRETATION: 20-49 YRS: >60 mL/min Normal 50-59 YRS: >56 mL/min Normal 60-69 YRS: >49 mL/min Normal 70-79 YRS: >42 mL/min Normal 80 and above >35 mL/min Normal FEMALE GRF INTERPRETATION: 20-39 YRS: >60 mL/min Normal 40-49 YRS: >58 mL/min Normal 50-59 YRS: >51 mL/min Normal 60-69 YRS: >45 mL/min Normal 70-79 YRS: >39 mL/min Normal 80 and above >32 mL/min Normal BUN/Creatinine Ratio 14.8 Calc [facility] ([facility] CHRONIC KIDNEY DISEASE STAGING PER NKF: MALE GFR INTERPRETATION: 20-49 YRS: >60 mL/min Normal 50-59 YRS: >56 mL/min Normal 60-69 YRS: >49 mL/min Normal 70-79 YRS: >42 mL/min Normal 80 and above >35 mL/min Normal FEMALE GRF INTERPRETATION: 20-39 YRS: >60 mL/min Normal 40-49 YRS: >58 mL/min Normal 50-59 YRS: >51 mL/min Normal 60-69 YRS: >45 mL/min Normal 70-79 YRS: >39 mL/min Normal 80 and above >32 mL/min Normal Co2 25.8 mmol/L 22.0-29.0 [facility] ([facility] CHRONIC KIDNEY DISEASE STAGING PER NKF: MALE GFR INTERPRETATION: 20-49 YRS: >60 mL/min Normal 50-59 YRS: >56 mL/min Normal 60-69 YRS: >49 mL/min Normal 70-79 YRS: >42 mL/min Normal 80 and above >35 mL/min Normal FEMALE GRF INTERPRETATION: 20-39 YRS: >60 mL/min Normal 40-49 YRS: >58 mL/min Normal 50-59 YRS: >51 mL/min Normal 60-69 YRS: >45 mL/min Normal 70-79 YRS: >39 mL/min Normal 80 and above >32 mL/min Normal K 4.1 mmol/L 3.5-5.1 [facility] CHRONIC KIDNEY DISEASE STAGING PER NKF: MALE GFR INTERPRETATION: 20-49 YRS: >60 mL/min Normal 50-59 YRS: >56 mL/min Normal 60-69 YRS: >49 mL/min Normal 70-79 YRS: >42 mL/min Normal 80 and above >35 mL/min Normal FEMALE GRF INTERPRETATION: 20-39 YRS: >60 mL/min Normal 40-49 YRS: >58 mL/min Normal 50-59 YRS: >51 mL/min Normal 60-69 YRS: >45 mL/min Normal 70-79 YRS: >39 mL/min Normal 80 and above >32 mL/min Normal CA 8.8 mg/dL 8.6-10.2 [facility] ([facility] CHRONIC KIDNEY DISEASE STAGING PER NKF: MALE GFR INTERPRETATION: 20-49 YRS: >60 mL/min Normal 50-59 YRS: >56 mL/min Normal 60-69 YRS: >49 mL/min Normal 70-79 YRS: >42 mL/min Normal 80 and above >35 mL/min Normal FEMALE GRF INTERPRETATION: 20-39 YRS: >60 mL/min Normal 40-49 YRS: >58 mL/min Normal 50-59 YRS: >51 mL/min Normal 60-69 YRS: >45 mL/min Normal 70-79 YRS: >39 mL/min Normal 80 and above >32 mL/min Normal Na 138 mmol/L 136-145 MEDZAFAR ([facility] CHRONIC KIDNEY DISEASE STAGING PER NKF: MALE GFR INTERPRETATION: 20-49 YRS: >60 mL/min Normal 50-59 YRS: >56 mL/min Normal 60-69 YRS: >49 mL/min Normal 70-79 YRS: >42 mL/min Normal 80 and above >35 mL/min Normal FEMALE GRF INTERPRETATION: 20-39 YRS: >60 mL/min Normal 40-49 YRS: >58 mL/min Normal 50-59 YRS: >51 mL/min Normal 60-69 YRS: >45 mL/min Normal 70-79 YRS: >39 mL/min Normal 80 and above >32 mL/min Normal Anion Gap 12 mmol/L DAWNA ([facility] CHRONIC KIDNEY DISEASE STAGING PER NKF: MALE GFR INTERPRETATION: 20-49 YRS: >60 mL/min Normal 50-59 YRS: >56 mL/min Normal 60-69 YRS: >49 mL/min Normal 70-79 YRS: >42 mL/min Normal 80 and above >35 mL/min Normal FEMALE GRF INTERPRETATION: 20-39 YRS: >60 mL/min Normal 40-49 YRS: >58 mL/min Normal 50-59 YRS: >51 mL/min Normal 60-69 YRS: >45 mL/min Normal 70-79 YRS: >39 mL/min Normal 80 and above >32 mL/min Normal CL 104.0 mmol/L 98.0-107.0 MEDZAFAR ([facility] CHRONIC KIDNEY DISEASE STAGING PER NKF: MALE GFR INTERPRETATION: 20-49 YRS: >60 mL/min Normal 50-59 YRS: >56 mL/min Normal 60-69 YRS: >49 mL/min Normal 70-79 YRS: >42 mL/min Normal 80 and above >35 mL/min Normal FEMALE GRF INTERPRETATION: 20-39 YRS: >60 mL/min Normal 40-49 YRS: >58 mL/min Normal 50-59 YRS: >51 mL/min Normal 60-69 YRS: >45 mL/min Normal 70-79 YRS: >39 mL/min Normal 80 and above >32 mL/min Normal eGFR 58 # [facility] ( [facility] CHRONIC KIDNEY DISEASE STAGING PER NKF: MALE GFR INTERPRETATION: 20-49 YRS: >60 mL/min Normal 50-59 YRS: >56 mL/min Normal 60-69 YRS: >49 mL/min Normal 70-79 YRS: >42 mL/min Normal 80 and above >35 mL/min Normal FEMALE GRF INTERPRETATION: 20-39 YRS: >60 mL/min Normal 40-49 YRS: >58 mL/min Normal 50-59 YRS: >51 mL/min Normal 60-69 YRS: >45 mL/min Normal 70-79 YRS: >39 mL/min Normal 80 and above >32 mL/min Normal eGFR Non-Afr. [place] 50 # MEDZAFAR ([facility] CHRONIC KIDNEY DISEASE STAGING PER NKF: MALE GFR INTERPRETATION: 20-49 YRS: >60 mL/min Normal 50-59 YRS: >56 mL/min Normal 60-69 YRS: >49 mL/min Normal 70-79 YRS: >42 mL/min Normal 80 and above >35 mL/min Normal FEMALE GRF INTERPRETATION: 20-39 YRS: >60 mL/min Normal 40-49 YRS: >58 mL/min Normal 50-59 YRS: >51 mL/min Normal 60-69 YRS: >45 mL/min Normal 70-79 YRS: >39 mL/min Normal 80 and above >32 mL/min Normal ID Date Data Source [id number] 10/11/2019 02:44:00 PM EDT [facility] ([facility] Name Value Range Interpretation Code Description Data Pennie rce(s) Supporting Document(s) Hemoglobin [Mass/volume] in Blood 10.3 g/dL 13.0-17.7 Below low nor mal [facility] ([facility] Erythrocytes [#/volume] in Blood by Automated count 3.55 x10E6/u L 4.14-5.80 Below low normal [facility] ([facility] ) Leukocytes [#/volume] in Blood by Automated count 12.9 x10E3/uL 3.4-10.8 Above high normal [facility] ([facility] ) Hematocrit [Volume Fraction] of Blood by Automated count 31.5 % 37.5-51.0 Below low normal [facility] ([facility] ) Erythrocyte mean corpuscular volume [Entitic volume] by Auto mated count 89 fL 79-97 [facility] Erythrocyte distribution width [Ratio] by Automated count 17.7 % 11.6-15.4 Above high normal [facility] ([facility] ) Erythrocyte mean corpuscular hemoglobin concentration [Mass/volume] by Automated count 32.7 g/dL 31.5-35.7 [facility] ([facility] Erythrocyte mean corpuscular hemoglobin [Entitic mass] by Automated count 29.0 pg 26.6-33.0 [facility] Neutrophils 79 % [facility] ([facility] Platelets [#/volume] in Blood by Automated count 287 x10E3/uL 150-450 [facility] ([facility] Lymphs 5 % [facility] Eosinophils/100 leukocytes in Blood by Automated count 0 % [facility] ([facility] Basophils/100 leukocytes in Blood by Automated count 0 % [facility] ([facility] Monocytes/100 leukocytes in Blood by Automated count 13 % [facility] ([facility] Immature cells [#/volume] in Blood Laboratory test result [facility] ([facility] Neutrophils [#/volume] in Blood by Automated count 10.1 x10E3/uL 1.4-7.0 Above high normal [facility] ([facility] ) Lymphocytes [#/volume] in Blood 0.7 x10E3/uL 0.7-3.1 [facility] ([facility] Basophils [#/volume] in Blood by Automated count 0.1 x10E3/uL 0.0-0.2 [facility] ([facility] Monocytes [#/volume] in Blood 1.7 x10E3/uL 0.1-0.9 Above high norm al [facility] ([facility] Eosinophils [#/volume] in Blood by Automated count 0.0 x10E3/uL 0.0-0 .4 [facility] ([facility] Immature granulocytes [#/volume] in Blood by Automated count 0.4 x10E3/uL 0.0-0.1 Above high normal [facility] ([facility] (An elevated percentage of Immature Gran ulocytes has not been found to be clinically significant as a sole clinical predictor of disease. Does NOT include bands or blast cells. associated physiological leukocytosis may also show increased immature granulocytes without clinical significance.) Immature granulocytes/100 leukocytes in Blood by Automated count 3 % [facility] ([facility] Nucleated erythrocytes/100 leukocytes [Ratio] in Blood by Automated count Laboratory test result [facility] ([facility] Morphology [Interpretation] in Blood Narrative Laboratory test result [facility] ([facility] ID Date Data Source [id number] 10/01/2019 08:40:00 AM EDT [facility] ([facility]) Name Value Range Interpretation Code Description Data Pennie rce(s) Supporting Document(s) White Blood Count 6.1 4.0-10.0 [facility] ([facility]) Platelets 175 150-450 [facility] ([facility]) Red Blood Count 3.07 4.30-6.10 [facility] ([facility]) Hemoglobin 8.7 [facility] ([facility]) Hematocrit 28.0 [facility] ([facility]) ID Date Data Source [id number] 10/01/2019 08:40:00 AM EDT [facility] ([facility]) Name Value Range Interpretation Code Description Data Pennie rce(s) Supporting Document(s) Glucose 82 70-100 [facility] ([facility]) Creatinine 0.96 0.6-1.0 [facility] ([facility]) Blood Urea Nitrogen 9 7-18 [facility] ([facility]) Sodium 143 136-145 [facility] ([facility]) Chloride 107 98-107 [facility] ([facility]) Potassium 4.1 3.5-5.1 [facility] ([facility]) Carbon Dioxide 30 21-32 [facility] ([facility]) Calcium 8.4 8.2-9.6 [facility] ([facility]) Glomerular filtration rate/1.73 sq M.pre dicted [Volume Rate/Area] in Serum or Plasma by Creatinine-based formula (MDRD) Laboratory test result [facility] ([facility]) ID Date Data Source [id number] 09/27/2019 08:54:00 AM EDT [facility] ([facility] Name Value Range Interpretation Code Description Data Pennie rce(s) Supporting Document(s) Laboratory test finding (navigational concept) 27.0 % 3 8.0-51.0 Below low normal [facility] ([facility] ) Laboratory test finding (navigational concept) 100 mg/dL 7 0-105 Normal (applies to non-numeric results) [facility] ([facility] Laboratory test finding (navigational concept) 140 meq/L 1 36-145 Normal (applies to non-numeric results) [facility] ([facility] Laboratory test finding (navigational concept) 3.5 meq/L 3 .5-5.1 Normal (applies to non-numeric results) [facility] ([facility] Laboratory test finding (navigational concept) 95 meq/L 98-109 Below low normal [facility] ([facility] Laboratory test finding (navigational concept) 4.7 mg/dL 4 .5-5.3 Normal (applies to non-numeric results) [facility] ([facility] Laboratory test finding (navigational concept) 9 mg/dL 8 -26 Normal (applies to non-numeric results) [facility] ([facility]) Laboratory test finding (navigational concept) 1.3 mg/dL 0 .6-1.3 Normal (applies to non-numeric results) [facility] ([facility] Laboratory test finding (navigational concept) 30.0 MM/L 2 3.0-27.0 Above high normal [facility] ([facility] ) ID Date Data Source [id number] 09/21/2019 02:32:00 PM EDT [facility] ([facility] Name Value Range Interpretation Code Description Data Pennie rce(s) Supporting Document(s) Lipoprotein lipase [Enzymatic activity/volume] in Serum or P lasma 167 U/L 73-393 Normal (applies to non-numeric results) [facility] ([facility] ID Date Data Source [id number] 09/21/2019 02:32:00 PM EDT [facility] ([facility] Name Value Range Interpretation Code Description Data Pennie rce(s) Supporting Document(s) Glucose, Fasting 126 mg/dL 70-100 Above high normal M EDENT ([facility] Creatinine For GFR 1.93 mg/dL 0.70-1.30 Above high normal [facility] ([facility] Blood Urea Nitrogen 22 mg/dL 7-18 Above high normal [facility] ([facility] Glomerular Filtration Rate 35.5 Normal (applies to n on-numeric results) [facility] ([facility] <content>Units are mL/min/1.73 m2</content>
<content></content>
<content>Chronic Kidney Disease Staging per NKF:</content>
<content></content>
<content>Stage I & II GFR >=60 Normal to Mildly Decreased</content>
<content>Stage III GFR 30-59 Moderately Decreased</content>
<content>Stage IV GFR 15-29 Severely Decreased</content>
<content>Stage V GFR <15 Very Little GFR Left</content>
<content>ESRD GFR <15 on [employer]</content>
<content></content> Potassium Serum 3.4 meq/L 3.5-5.1 Below low normal MED ENT ([facility] Sodium Level 139 meq/L 136-145 Normal (applies to non-numeric res ults) [facility] ([facility] Chloride Level 100 meq/L 98-107 Normal (applies to non-numeric r esults) [facility] ([facility] Anion Gap 5 meq/L 8-16 Below low normal [facility] ( [facility] Calcium Level 8.9 mg/dL 8.8-10.2 Normal (applies to non-numeric re sults) [facility] ([facility] Carbon Dioxide Level 34 meq/L 21-32 Above high normal [facility] ([facility] ID Date Data Source [id number] 09/21/2019 02:32:00 PM EDT [facility] Name Value Range Interpretation Code Description Data Pennie rce(s) Supporting Document(s) Alt/SGPT 20 U/L 12-78 Normal (applies to non-numeric resul ts) [facility] ([facility] Ast/Sgot 26 U/L 7-37 Normal (applies to non-numeric resul ts) [facility] ([facility] Bilirubin,Total 0.6 mg/dL 0.2-1.0 Normal (applies to non-numeric results) [facility] ([facility] Alkaline Phosphatase 39 U/L 45-117 Below low normal [facility] ([facility] Bilirubin,Direct 0.3 mg/dL 0.0-0.2 Above high normal M EDENT ([facility] Total Protein 5.8 GM/DL 6.4-8.2 Below low normal MEDEN T ([facility] Albumin/Globulin Ratio 0.9 Normal (applies to non-n umeric results) [facility] ([facility] Albumin 2.8 GM/DL 3.2-5.2 Below low normal [facility] ( [facility] ID Date Data Source [id number] 09/21/2019 02:32:00 PM EDT [facility] Name Value Range Interpretation Code Description Data Pennie rce(s) Supporting Document(s) Hemoglobin 11.0 g/dL 13.5-17.5 Below low normal [facility] ( [facility] Red Blood Count 3.76 10 4.30-6.10 Below low normal MED E[facility] ([facility] White Blood Count 7.9 10 4.0-10.0 Normal (applies to non-numeri c results) [facility] ([facility] Mean Corpuscular Volume 89.6 fl 80.0-96.0 Normal ( applies to non-numeric results) [facility] ([facility] Hematocrit 33.7 % 42.0-52.0 Below low normal [facility] ( [facility] Mean Corpuscular Hemoglobin 29.3 pg 27.0-33.0 Norm al (applies to non-numeric results) [facility] ([facility] ) Red Cell Distribution Width 19.0 % 11.5-14.5 Above high normal [facility] ([facility] Platelet Count, Automated 205 10 150-450 Normal (applies to non-numeric results) [facility] ([facility] ) Mean Corpuscular HGB Conc 32.6 g/dL 32.0-36.5 Normal (applies to non-numeric results) [facility] ([facility] ) [place] % 13.6 % 0.0-5.0 Above high normal [facility] ([facility] Lymph % 8.4 % 24.0-44.0 Below low normal [facility] ( [facility] Neutrophils % 73.1 % 36.0-66.0 Above high normal MEDE NT ([facility] Baso % 0.5 % 0.0-1.0 Normal (applies to non-numeric resul ts) [facility] ([facility] Eos % 0.4 % 0.0-3.0 Normal (applies to non-numeric resul ts) [facility] ([facility] Immature Granulocyte % 4.0 % 0-3.0 Above high normal [facility] ([facility] Nucleated Red Blood Cell % 0.0 % 0-0 Normal (applies to n on-numeric results) [facility] ([facility] Neutrophils # 5.8 10 1.5-8.5 Normal (applies to non-numeric re sults) [facility] ([facility] Lymph # 0.7 10 1.5-5.0 Below low normal [facility] ( [facility] [place] # 1.1 10 0.0-0.8 Above high normal [facility] ([facility] Baso # 0.0 10 0.0-0.2 Normal (applies to non-numeric resul ts) [facility] ([facility] Eos # 0.0 10 0.0-0.5 Normal (applies to non-numeric resul ts) [facility] ([facility] ID Date Data Source [id number] 09/16/2019 02:38:00 PM EDT [facility] ([facility] Name Value Range Interpretation Code Description Data Pennie rce(s) Supporting Document(s) White Blood Count 8.7 10 4.0-10.0 Normal (applies to non-numeri c results) [facility] ([facility] Red Blood Count 3.76 10 4.30-6.10 Below low normal MED [facility] ([facility] Hematocrit 34.4 % 42.0-52.0 Below low normal [facility] ( [facility] Mean Corpuscular Volume 91.5 fl 80.0-96.0 Normal ( applies to non-numeric results) [facility] ([facility] ) Hemoglobin 10.8 g/dL 13.5-17.5 Below low normal [facility] ( [facility] Mean Corpuscular Hemoglobin 28.7 pg 27.0-33.0 Norm al (applies to non-numeric results) [facility] ([facility] ) Red Cell Distribution Width 19.7 % 11.5-14.5 Above high normal [facility] ([facility] Mean Corpuscular HGB Conc 31.4 g/dL 32.0-36.5 Below low normal [facility] ([facility] Platelet Count, Automated 168 10 150-450 Normal (applies to non-numeric results) [facility] ([facility] ) Neutrophils % 70.5 % 36.0-66.0 Above high normal MEDE NT ([facility] Lymph % 7.3 % 24.0-44.0 Below low normal [facility] ( [facility] Eos % 0.7 % 0.0-3.0 Normal (applies to non-numeric resul ts) [facility] ([facility] [place] % 16.3 % 0.0-5.0 Above high normal [facility] ([facility] Nucleated Red Blood Cell % 0.0 % 0-0 Normal (applies to n on-numeric results) [facility] ([facility] Immature Granulocyte % 4.6 % 0-3.0 Above high normal [facility] ([facility] Neutrophils # 6.2 10 1.5-8.5 Normal (applies to non-numeric re sults) [facility] ([facility] Baso % 0.6 % 0.0-1.0 Normal (applies to non-numeric resul ts) [facility] ([facility] Eos # 0.1 10 0.0-0.5 Normal (applies to non-numeric resul ts) [facility] ([facility] Lymph # 0.6 10 1.5-5.0 Below low normal [facility] ( [facility] [place] # 1.4 10 0.0-0.8 Above high normal [facility] ([facility] Baso # 0.1 10 0.0-0.2 Normal (applies to non-numeric resul ts) [facility] ([facility] ID Date Data Source [id number] 09/16/2019 02:38:00 PM EDT [facility] ([facility] Name Value Range Interpretation Code Description Data Pennie rce(s) Supporting Document(s) Alt/SGPT 16 U/L 12-78 Normal (applies to non-numeric resul ts) [facility] ([facility] Ast/Sgot 20 U/L 7-37 Normal (applies to non-numeric resul ts) [facility] ([facility] Alkaline Phosphatase 35 U/L 45-117 Below low normal [facility] ([facility] Bilirubin,Direct 0.3 mg/dL 0.0-0.2 Above high normal M [facility] ([facility] Total Protein 5.5 GM/DL 6.4-8.2 Below low normal [facility] T ([facility] Bilirubin,Total 0.7 mg/dL 0.2-1.0 Normal (applies to non-numeric results) [facility] ([facility] Albumin 2.9 GM/DL 3.2-5.2 Below low normal [facility] ( [facility] Albumin/Globulin Ratio 1.1 Normal (applies to non-n umeric results) [facility] ([facility] ID Date Data Source [id number] 09/16/2019 02:38:00 PM EDT [facility] ([facility] Name Value Range Interpretation Code Description Data Pennie rce(s) Supporting Document(s) Creatinine For GFR 1.38 mg/dL 0.70-1.30 Above high normal [facility] ([facility] Blood Urea Nitrogen 15 mg/dL 7-18 Normal (applies to non-nume cristian results) [facility] ([facility] Glucose, Fasting 85 mg/dL 70-100 Normal (applies to non-numeric results) [facility] ([facility] Potassium Serum 4.3 meq/L 3.5-5.1 Normal (applies to non-numeric results) [facility] ([facility] Sodium Level 142 meq/L 136-145 Normal (applies to non-numeric res ults) [facility] ([facility] Glomerular Filtration Rate 52.3 Normal (applies to n on-numeric results) [facility] ([facility] <content>Units are mL/min/1.73 m2</content>
<content></content>
<content>Chronic Kidney Disease Staging per NKF:</content>
<content></content>
<content>Stage I & II GFR >=60 Normal to Mildly Decreased</content>
<content>Stage III GFR 30-59 Moderately Decreased</content>
<content>Stage IV GFR 15-29 Severely Decreased</content>
<content>Stage V GFR <15 Very Little GFR Left</content>
<content>ESRD GFR <15 on [employer]IATE</content>
<content></content> Carbon Dioxide Level 29 meq/L 21-32 Normal (applies to non-num romeo results) [facility] ([facility] Anion Gap 7 meq/L 8-16 Below low normal [facility] ( [facility] Chloride Level 106 meq/L 98-107 Normal (applies to non-numeric r esults) [facility] ([facility] Calcium Level 8.4 mg/dL 8.8-10.2 Below low normal [facility] T ([facility] ID Date Data Source [id number] 09/16/2019 02:38:00 PM EDT [facility] ([facility] Name Value Range Interpretation Code Description Data Pennie rce(s) Supporting Document(s) Lipoprotein lipase [Enzymatic activity/volume] in Serum or P lasma 124 U/L 73-393 Normal (applies to non-numeric results) [facility] ([facility] ID Date Data Source [id number] 09/16/2019 02:38:00 PM EDT [facility] ([facility] Name Value Range Interpretation Code Description Data Pennie rce(s) Supporting Document(s) Respiratory Panel Laboratory test result [facility] ([facility] This respiratory PCR panel detects Influ олег A H1, H3 and 2009 H1 viruses, Influenza B virus, Resp iratory Syncytial Virus, Human metapneumovirus, Parainfluenza virus 1, 2, 3 and 4, Adenovirus, Rhinovirus/Enterovirus, Coronavirus HKU1, NL63, OC43, 229E and SARS-CoV-2 (COVID 19), Bordetella pertussis, Bordetella parapertussis, Mycoplasma pneumoniae and Chlamydia pneumoniae. POSITIVE by MULTIPLEXED NUCLEIC ACID PCR SARS-CoV-2 (COVID 19) NEGATIVE - SARS-CoV-2 (COVID19) ORGANISM 1: HUMAN RHINOVIRUS/ENTEROVIRUS Rhinovirus is noted as causing the "common cold", but may also be involved in precipitating asthma attacks and severe complications. Enteroviruses can be associated with different clinical manifestations, including non-specific respiratory illness. These viruses are closely related and therefore not able to be reliably differentiated. ORGANISM 1: HUMAN RHINOVIRUS/ENTEROVIRUS ID Date Data Source [id number] 09/03/2019 10:07:00 AM EDT [facility] Name Value Range Interpretation Code Description Data Pennie rce(s) Supporting Document(s) Erythrocytes [#/volume] in Blood by Automated count 3.72 x10E6/uL 4.1 4-5.80 [facility] CHRONIC KIDNEY DISEASE STAGING PER NKF: MALE GFR INTERPRETATION: 20-49 YRS: >60 mL/min Normal 50-59 YRS: >56 mL/min Normal 60-69 YRS: >49 mL/min Normal 70-79 YRS: >42 mL/min Normal 80 and above >35 mL/min Normal FEMALE GRF INTERPRETATION: 20-39 YRS: >60 mL/min Normal 40-49 YRS: >58 mL/min Normal 50-59 YRS: >51 mL/min Normal 60-69 YRS: >45 mL/min Normal 70-79 YRS: >39 mL/min Normal 80 and above >32 mL/min Normal CHRONIC KIDNEY DISEASE STAGING PER NKF: MALE GFR INTERPRETATION: 20-49 YRS: >60 mL/min Normal 50-59 YRS: >56 mL/min Normal 60-69 YRS: >49 mL/min Normal 70-79 YRS: >42 mL/min Normal 80 and above >35 mL/min Normal FEMALE GRF INTERPRETATION: 20-39 YRS: >60 mL/min Normal 40-49 YRS: >58 mL/min Normal 50-59 YRS: >51 mL/min Normal 60-69 YRS: >45 mL/min Normal 70-79 YRS: >39 mL/min Normal 80 and above >32 mL/min Normal Leukocytes [#/volume] in Blood by Automated count 9.5 x10E3/uL 3.4-10 .8 [facility] CHRONIC KIDNEY DISEASE STAGING PER NKF: MALE GFR INTERPRETATION: 20-49 YRS: >60 mL/min Normal 50-59 YRS: >56 mL/min Normal 60-69 YRS: >49 mL/min Normal 70-79 YRS: >42 mL/min Normal 80 and above >35 mL/min Normal FEMALE GRF INTERPRETATION: 20-39 YRS: >60 mL/min Normal 40-49 YRS: >58 mL/min Normal 50-59 YRS: >51 mL/min Normal 60-69 YRS: >45 mL/min Normal 70-79 YRS: >39 mL/min Normal 80 and above >32 mL/min Normal CHRONIC KIDNEY DISEASE STAGING PER NKF: MALE GFR INTERPRETATION: 20-49 YRS: >60 mL/min Normal 50-59 YRS: >56 mL/min Normal 60-69 YRS: >49 mL/min Normal 70-79 YRS: >42 mL/min Normal 80 and above >35 mL/min Normal FEMALE GRF INTERPRETATION: 20-39 YRS: >60 mL/min Normal 40-49 YRS: >58 mL/min Normal 50-59 YRS: >51 mL/min Normal 60-69 YRS: >45 mL/min Normal 70-79 YRS: >39 mL/min Normal 80 and above >32 mL/min Normal Hematocrit [Volume Fraction] of Blood by Automated count 32.8 % 3 7.5-51.0 [facility] ([facility]) CHRONIC KIDNEY DISEASE STAGING PER NKF: MALE GFR INTERPRETATION: 20-49 YRS: >60 mL/min Normal 50-59 YRS: >56 mL/min Normal 60-69 YRS: >49 mL/min Normal 70-79 YRS: >42 mL/min Normal 80 and above >35 mL/min Normal FEMALE GRF INTERPRETATION: 20-39 YRS: >60 mL/min Normal 40-49 YRS: >58 mL/min Normal 50-59 YRS: >51 mL/min Normal 60-69 YRS: >45 mL/min Normal 70-79 YRS: >39 mL/min Normal 80 and above >32 mL/min Normal CHRONIC KIDNEY DISEASE STAGING PER NKF: MALE GFR INTERPRETATION: 20-49 YRS: >60 mL/min Normal 50-59 YRS: >56 mL/min Normal 60-69 YRS: >49 mL/min Normal 70-79 YRS: >42 mL/min Normal 80 and above >35 mL/min Normal FEMALE GRF INTERPRETATION: 20-39 YRS: >60 mL/min Normal 40-49 YRS: >58 mL/min Normal 50-59 YRS: >51 mL/min Normal 60-69 YRS: >45 mL/min Normal 70-79 YRS: >39 mL/min Normal 80 and above >32 mL/min Normal Hemoglobin [Mass/volume] in Blood 10.8 g/dL 13.0-17.7 [facility] ([facility]) CHRONIC KIDNEY DISEASE STAGING PER NKF: MALE GFR INTERPRETATION: 20-49 YRS: >60 mL/min Normal 50-59 YRS: >56 mL/min Normal 60-69 YRS: >49 mL/min Normal 70-79 YRS: >42 mL/min Normal 80 and above >35 mL/min Normal FEMALE GRF INTERPRETATION: 20-39 YRS: >60 mL/min Normal 40-49 YRS: >58 mL/min Normal 50-59 YRS: >51 mL/min Normal 60-69 YRS: >45 mL/min Normal 70-79 YRS: >39 mL/min Normal 80 and above >32 mL/min Normal CHRONIC KIDNEY DISEASE STAGING PER NKF: MALE GFR INTERPRETATION: 20-49 YRS: >60 mL/min Normal 50-59 YRS: >56 mL/min Normal 60-69 YRS: >49 mL/min Normal 70-79 YRS: >42 mL/min Normal 80 and above >35 mL/min Normal FEMALE GRF INTERPRETATION: 20-39 YRS: >60 mL/min Normal 40-49 YRS: >58 mL/min Normal 50-59 YRS: >51 mL/min Normal 60-69 YRS: >45 mL/min Normal 70-79 YRS: >39 mL/min Normal 80 and above >32 mL/min Normal Erythrocyte mean corpuscular volume [Entitic volume] by Auto mated count 88 fL 79-97 [facility] CHRONIC KIDNEY DISEASE STAGING PER NKF: MALE GFR INTERPRETATION: 20-49 YRS: >60 mL/min Normal 50-59 YRS: >56 mL/min Normal 60-69 YRS: >49 mL/min Normal 70-79 YRS: >42 mL/min Normal 80 and above >35 mL/min Normal FEMALE GRF INTERPRETATION: 20-39 YRS: >60 mL/min Normal 40-49 YRS: >58 mL/min Normal 50-59 YRS: >51 mL/min Normal 60-69 YRS: >45 mL/min Normal 70-79 YRS: >39 mL/min Normal 80 and above >32 mL/min Normal CHRONIC KIDNEY DISEASE STAGING PER NKF: MALE GFR INTERPRETATION: 20-49 YRS: >60 mL/min Normal 50-59 YRS: >56 mL/min Normal 60-69 YRS: >49 mL/min Normal 70-79 YRS: >42 mL/min Normal 80 and above >35 mL/min Normal FEMALE GRF INTERPRETATION: 20-39 YRS: >60 mL/min Normal 40-49 YRS: >58 mL/min Normal 50-59 YRS: >51 mL/min Normal 60-69 YRS: >45 mL/min Normal 70-79 YRS: >39 mL/min Normal 80 and above >32 mL/min Normal Erythrocyte mean corpuscular hemoglobin [Entitic mass] by Automated count 29.0 pg 26.6-33.0 [facility] ([facility] CHRONIC KIDNEY DISEASE STAGING PER NKF: MALE GFR INTERPRETATION: 20-49 YRS: >60 mL/min Normal 50-59 YRS: >56 mL/min Normal 60-69 YRS: >49 mL/min Normal 70-79 YRS: >42 mL/min Normal 80 and above >35 mL/min Normal FEMALE GRF INTERPRETATION: 20-39 YRS: >60 mL/min Normal 40-49 YRS: >58 mL/min Normal 50-59 YRS: >51 mL/min Normal 60-69 YRS: >45 mL/min Normal 70-79 YRS: >39 mL/min Normal 80 and above >32 mL/min Normal CHRONIC KIDNEY DISEASE STAGING PER NKF: MALE GFR INTERPRETATION: 20-49 YRS: >60 mL/min Normal 50-59 YRS: >56 mL/min Normal 60-69 YRS: >49 mL/min Normal 70-79 YRS: >42 mL/min Normal 80 and above >35 mL/min Normal FEMALE GRF INTERPRETATION: 20-39 YRS: >60 mL/min Normal 40-49 YRS: >58 mL/min Normal 50-59 YRS: >51 mL/min Normal 60-69 YRS: >45 mL/min Normal 70-79 YRS: >39 mL/min Normal 80 and above >32 mL/min Normal Erythrocyte mean corpuscular hemoglobin concentration [Mass/volume] by Automated count 32.9 g/dL 31.5-35.7 [facility] ([facility] CHRONIC KIDNEY DISEASE STAGING PER NKF: MALE GFR INTERPRETATION: 20-49 YRS: >60 mL/min Normal 50-59 YRS: >56 mL/min Normal 60-69 YRS: >49 mL/min Normal 70-79 YRS: >42 mL/min Normal 80 and above >35 mL/min Normal FEMALE GRF INTERPRETATION: 20-39 YRS: >60 mL/min Normal 40-49 YRS: >58 mL/min Normal 50-59 YRS: >51 mL/min Normal 60-69 YRS: >45 mL/min Normal 70-79 YRS: >39 mL/min Normal 80 and above >32 mL/min Normal CHRONIC KIDNEY DISEASE STAGING PER NKF: MALE GFR INTERPRETATION: 20-49 YRS: >60 mL/min Normal 50-59 YRS: >56 mL/min Normal 60-69 YRS: >49 mL/min Normal 70-79 YRS: >42 mL/min Normal 80 and above >35 mL/min Normal FEMALE GRF INTERPRETATION: 20-39 YRS: >60 mL/min Normal 40-49 YRS: >58 mL/min Normal 50-59 YRS: >51 mL/min Normal 60-69 YRS: >45 mL/min Normal 70-79 YRS: >39 mL/min Normal 80 and above >32 mL/min Normal Erythrocyte distribution width [Ratio] by Automated count 17.7 % 11.6-15.4 [facility] ([facility]) CHRONIC KIDNEY DISEASE STAGING PER NKF: MALE GFR INTERPRETATION: 20-49 YRS: >60 mL/min Normal 50-59 YRS: >56 mL/min Normal 60-69 YRS: >49 mL/min Normal 70-79 YRS: >42 mL/min Normal 80 and above >35 mL/min Normal FEMALE GRF INTERPRETATION: 20-39 YRS: >60 mL/min Normal 40-49 YRS: >58 mL/min Normal 50-59 YRS: >51 mL/min Normal 60-69 YRS: >45 mL/min Normal 70-79 YRS: >39 mL/min Normal 80 and above >32 mL/min Normal CHRONIC KIDNEY DISEASE STAGING PER NKF: MALE GFR INTERPRETATION: 20-49 YRS: >60 mL/min Normal 50-59 YRS: >56 mL/min Normal 60-69 YRS: >49 mL/min Normal 70-79 YRS: >42 mL/min Normal 80 and above >35 mL/min Normal FEMALE GRF INTERPRETATION: 20-39 YRS: >60 mL/min Normal 40-49 YRS: >58 mL/min Normal 50-59 YRS: >51 mL/min Normal 60-69 YRS: >45 mL/min Normal 70-79 YRS: >39 mL/min Normal 80 and above >32 mL/min Normal Platelets [#/volume] in Blood by Automated count 191 x10E3/uL 150-450 [facility] ([facility]) CHRONIC KIDNEY DISEASE STAGING PER NKF: MALE GFR INTERPRETATION: 20-49 YRS: >60 mL/min Normal 50-59 YRS: >56 mL/min Normal 60-69 YRS: >49 mL/min Normal 70-79 YRS: >42 mL/min Normal 80 and above >35 mL/min Normal FEMALE GRF INTERPRETATION: 20-39 YRS: >60 mL/min Normal 40-49 YRS: >58 mL/min Normal 50-59 YRS: >51 mL/min Normal 60-69 YRS: >45 mL/min Normal 70-79 YRS: >39 mL/min Normal 80 and above >32 mL/min Normal CHRONIC KIDNEY DISEASE STAGING PER NKF: MALE GFR INTERPRETATION: 20-49 YRS: >60 mL/min Normal 50-59 YRS: >56 mL/min Normal 60-69 YRS: >49 mL/min Normal 70-79 YRS: >42 mL/min Normal 80 and above >35 mL/min Normal FEMALE GRF INTERPRETATION: 20-39 YRS: >60 mL/min Normal 40-49 YRS: >58 mL/min Normal 50-59 YRS: >51 mL/min Normal 60-69 YRS: >45 mL/min Normal 70-79 YRS: >39 mL/min Normal 80 and above >32 mL/min Normal Neutrophils 73 % [facility] ([facility]) CHRONIC KIDNEY DISEASE STAGING PER NKF: MALE GFR INTERPRETATION: 20-49 YRS: >60 mL/min Normal 50-59 YRS: >56 mL/min Normal 60-69 YRS: >49 mL/min Normal 70-79 YRS: >42 mL/min Normal 80 and above >35 mL/min Normal FEMALE GRF INTERPRETATION: 20-39 YRS: >60 mL/min Normal 40-49 YRS: >58 mL/min Normal 50-59 YRS: >51 mL/min Normal 60-69 YRS: >45 mL/min Normal 70-79 YRS: >39 mL/min Normal 80 and above >32 mL/min Normal CHRONIC KIDNEY DISEASE STAGING PER NKF: MALE GFR INTERPRETATION: 20-49 YRS: >60 mL/min Normal 50-59 YRS: >56 mL/min Normal 60-69 YRS: >49 mL/min Normal 70-79 YRS: >42 mL/min Normal 80 and above >35 mL/min Normal FEMALE GRF INTERPRETATION: 20-39 YRS: >60 mL/min Normal 40-49 YRS: >58 mL/min Normal 50-59 YRS: >51 mL/min Normal 60-69 YRS: >45 mL/min Normal 70-79 YRS: >39 mL/min Normal 80 and above >32 mL/min Normal Lymphs 10 % [facility] ([facility] CHRONIC KIDNEY DISEASE STAGING PER NKF: MALE GFR INTERPRETATION: 20-49 YRS: >60 mL/min Normal 50-59 YRS: >56 mL/min Normal 60-69 YRS: >49 mL/min Normal 70-79 YRS: >42 mL/min Normal 80 and above >35 mL/min Normal FEMALE GRF INTERPRETATION: 20-39 YRS: >60 mL/min Normal 40-49 YRS: >58 mL/min Normal 50-59 YRS: >51 mL/min Normal 60-69 YRS: >45 mL/min Normal 70-79 YRS: >39 mL/min Normal 80 and above >32 mL/min Normal CHRONIC KIDNEY DISEASE STAGING PER NKF: MALE GFR INTERPRETATION: 20-49 YRS: >60 mL/min Normal 50-59 YRS: >56 mL/min Normal 60-69 YRS: >49 mL/min Normal 70-79 YRS: >42 mL/min Normal 80 and above >35 mL/min Normal FEMALE GRF INTERPRETATION: 20-39 YRS: >60 mL/min Normal 40-49 YRS: >58 mL/min Normal 50-59 YRS: >51 mL/min Normal 60-69 YRS: >45 mL/min Normal 70-79 YRS: >39 mL/min Normal 80 and above >32 mL/min Normal Eosinophils/100 leukocytes in Blood by Automated count 0 % [facility] ([facility]) CHRONIC KIDNEY DISEASE STAGING PER NKF: MALE GFR INTERPRETATION: 20-49 YRS: >60 mL/min Normal 50-59 YRS: >56 mL/min Normal 60-69 YRS: >49 mL/min Normal 70-79 YRS: >42 mL/min Normal 80 and above >35 mL/min Normal FEMALE GRF INTERPRETATION: 20-39 YRS: >60 mL/min Normal 40-49 YRS: >58 mL/min Normal 50-59 YRS: >51 mL/min Normal 60-69 YRS: >45 mL/min Normal 70-79 YRS: >39 mL/min Normal 80 and above >32 mL/min Normal CHRONIC KIDNEY DISEASE STAGING PER NKF: MALE GFR INTERPRETATION: 20-49 YRS: >60 mL/min Normal 50-59 YRS: >56 mL/min Normal 60-69 YRS: >49 mL/min Normal 70-79 YRS: >42 mL/min Normal 80 and above >35 mL/min Normal FEMALE GRF INTERPRETATION: 20-39 YRS: >60 mL/min Normal 40-49 YRS: >58 mL/min Normal 50-59 YRS: >51 mL/min Normal 60-69 YRS: >45 mL/min Normal 70-79 YRS: >39 mL/min Normal 80 and above >32 mL/min Normal Monocytes/100 leukocytes in Blood by Automated count 12 % [facility] ([facility]) CHRONIC KIDNEY DISEASE STAGING PER NKF: MALE GFR INTERPRETATION: 20-49 YRS: >60 mL/min Normal 50-59 YRS: >56 mL/min Normal 60-69 YRS: >49 mL/min Normal 70-79 YRS: >42 mL/min Normal 80 and above >35 mL/min Normal FEMALE GRF INTERPRETATION: 20-39 YRS: >60 mL/min Normal 40-49 YRS: >58 mL/min Normal 50-59 YRS: >51 mL/min Normal 60-69 YRS: >45 mL/min Normal 70-79 YRS: >39 mL/min Normal 80 and above >32 mL/min Normal CHRONIC KIDNEY DISEASE STAGING PER NKF: MALE GFR INTERPRETATION: 20-49 YRS: >60 mL/min Normal 50-59 YRS: >56 mL/min Normal 60-69 YRS: >49 mL/min Normal 70-79 YRS: >42 mL/min Normal 80 and above >35 mL/min Normal FEMALE GRF INTERPRETATION: 20-39 YRS: >60 mL/min Normal 40-49 YRS: >58 mL/min Normal 50-59 YRS: >51 mL/min Normal 60-69 YRS: >45 mL/min Normal 70-79 YRS: >39 mL/min Normal 80 and above >32 mL/min Normal Neutrophils [#/volume] in Blood by Automated count 6.9 x10E3/uL 1.4-7 .0 [facility] ([facility]) CHRONIC KIDNEY DISEASE STAGING PER NKF: MALE GFR INTERPRETATION: 20-49 YRS: >60 mL/min Normal 50-59 YRS: >56 mL/min Normal 60-69 YRS: >49 mL/min Normal 70-79 YRS: >42 mL/min Normal 80 and above >35 mL/min Normal FEMALE GRF INTERPRETATION: 20-39 YRS: >60 mL/min Normal 40-49 YRS: >58 mL/min Normal 50-59 YRS: >51 mL/min Normal 60-69 YRS: >45 mL/min Normal 70-79 YRS: >39 mL/min Normal 80 and above >32 mL/min Normal CHRONIC KIDNEY DISEASE STAGING PER NKF: MALE GFR INTERPRETATION: 20-49 YRS: >60 mL/min Normal 50-59 YRS: >56 mL/min Normal 60-69 YRS: >49 mL/min Normal 70-79 YRS: >42 mL/min Normal 80 and above >35 mL/min Normal FEMALE GRF INTERPRETATION: 20-39 YRS: >60 mL/min Normal 40-49 YRS: >58 mL/min Normal 50-59 YRS: >51 mL/min Normal 60-69 YRS: >45 mL/min Normal 70-79 YRS: >39 mL/min Normal 80 and above >32 mL/min Normal Basophils/100 leukocytes in Blood by Automated count 0 % [facility] ([facility]) CHRONIC KIDNEY DISEASE STAGING PER NKF: MALE GFR INTERPRETATION: 20-49 YRS: >60 mL/min Normal 50-59 YRS: >56 mL/min Normal 60-69 YRS: >49 mL/min Normal 70-79 YRS: >42 mL/min Normal 80 and above >35 mL/min Normal FEMALE GRF INTERPRETATION: 20-39 YRS: >60 mL/min Normal 40-49 YRS: >58 mL/min Normal 50-59 YRS: >51 mL/min Normal 60-69 YRS: >45 mL/min Normal 70-79 YRS: >39 mL/min Normal 80 and above >32 mL/min Normal CHRONIC KIDNEY DISEASE STAGING PER NKF: MALE GFR INTERPRETATION: 20-49 YRS: >60 mL/min Normal 50-59 YRS: >56 mL/min Normal 60-69 YRS: >49 mL/min Normal 70-79 YRS: >42 mL/min Normal 80 and above >35 mL/min Normal FEMALE GRF INTERPRETATION: 20-39 YRS: >60 mL/min Normal 40-49 YRS: >58 mL/min Normal 50-59 YRS: >51 mL/min Normal 60-69 YRS: >45 mL/min Normal 70-79 YRS: >39 mL/min Normal 80 and above >32 mL/min Normal Immature cells [#/volume] in Blood [facility] CHRONIC KIDNEY DISEASE STAGING PER NKF: MALE GFR INTERPRETATION: 20-49 YRS: >60 mL/min Normal 50-59 YRS: >56 mL/min Normal 60-69 YRS: >49 mL/min Normal 70-79 YRS: >42 mL/min Normal 80 and above >35 mL/min Normal FEMALE GRF INTERPRETATION: 20-39 YRS: >60 mL/min Normal 40-49 YRS: >58 mL/min Normal 50-59 YRS: >51 mL/min Normal 60-69 YRS: >45 mL/min Normal 70-79 YRS: >39 mL/min Normal 80 and above >32 mL/min Normal CHRONIC KIDNEY DISEASE STAGING PER NKF: MALE GFR INTERPRETATION: 20-49 YRS: >60 mL/min Normal 50-59 YRS: >56 mL/min Normal 60-69 YRS: >49 mL/min Normal 70-79 YRS: >42 mL/min Normal 80 and above >35 mL/min Normal FEMALE GRF INTERPRETATION: 20-39 YRS: >60 mL/min Normal 40-49 YRS: >58 mL/min Normal 50-59 YRS: >51 mL/min Normal 60-69 YRS: >45 mL/min Normal 70-79 YRS: >39 mL/min Normal 80 and above >32 mL/min Normal Lymphocytes [#/volume] in Blood 0.9 x10E3/uL 0.7-3.1 [facility] CHRONIC KIDNEY DISEASE STAGING PER NKF: MALE GFR INTERPRETATION: 20-49 YRS: >60 mL/min Normal 50-59 YRS: >56 mL/min Normal 60-69 YRS: >49 mL/min Normal 70-79 YRS: >42 mL/min Normal 80 and above >35 mL/min Normal FEMALE GRF INTERPRETATION: 20-39 YRS: >60 mL/min Normal 40-49 YRS: >58 mL/min Normal 50-59 YRS: >51 mL/min Normal 60-69 YRS: >45 mL/min Normal 70-79 YRS: >39 mL/min Normal 80 and above >32 mL/min Normal CHRONIC KIDNEY DISEASE STAGING PER NKF: MALE GFR INTERPRETATION: 20-49 YRS: >60 mL/min Normal 50-59 YRS: >56 mL/min Normal 60-69 YRS: >49 mL/min Normal 70-79 YRS: >42 mL/min Normal 80 and above >35 mL/min Normal FEMALE GRF INTERPRETATION: 20-39 YRS: >60 mL/min Normal 40-49 YRS: >58 mL/min Normal 50-59 YRS: >51 mL/min Normal 60-69 YRS: >45 mL/min Normal 70-79 YRS: >39 mL/min Normal 80 and above >32 mL/min Normal Eosinophils [#/volume] in Blood by Automated count 0.0 x10E3/uL 0.0-0 .4 [facility] ([facility]) CHRONIC KIDNEY DISEASE STAGING PER NKF: MALE GFR INTERPRETATION: 20-49 YRS: >60 mL/min Normal 50-59 YRS: >56 mL/min Normal 60-69 YRS: >49 mL/min Normal 70-79 YRS: >42 mL/min Normal 80 and above >35 mL/min Normal FEMALE GRF INTERPRETATION: 20-39 YRS: >60 mL/min Normal 40-49 YRS: >58 mL/min Normal 50-59 YRS: >51 mL/min Normal 60-69 YRS: >45 mL/min Normal 70-79 YRS: >39 mL/min Normal 80 and above >32 mL/min Normal CHRONIC KIDNEY DISEASE STAGING PER NKF: MALE GFR INTERPRETATION: 20-49 YRS: >60 mL/min Normal 50-59 YRS: >56 mL/min Normal 60-69 YRS: >49 mL/min Normal 70-79 YRS: >42 mL/min Normal 80 and above >35 mL/min Normal FEMALE GRF INTERPRETATION: 20-39 YRS: >60 mL/min Normal 40-49 YRS: >58 mL/min Normal 50-59 YRS: >51 mL/min Normal 60-69 YRS: >45 mL/min Normal 70-79 YRS: >39 mL/min Normal 80 and above >32 mL/min Normal Monocytes [#/volume] in Blood 1.2 x10E3/uL 0.1-0.9 [facility] ([facility]) CHRONIC KIDNEY DISEASE STAGING PER NKF: MALE GFR INTERPRETATION: 20-49 YRS: >60 mL/min Normal 50-59 YRS: >56 mL/min Normal 60-69 YRS: >49 mL/min Normal 70-79 YRS: >42 mL/min Normal 80 and above >35 mL/min Normal FEMALE GRF INTERPRETATION: 20-39 YRS: >60 mL/min Normal 40-49 YRS: >58 mL/min Normal 50-59 YRS: >51 mL/min Normal 60-69 YRS: >45 mL/min Normal 70-79 YRS: >39 mL/min Normal 80 and above >32 mL/min Normal CHRONIC KIDNEY DISEASE STAGING PER NKF: MALE GFR INTERPRETATION: 20-49 YRS: >60 mL/min Normal 50-59 YRS: >56 mL/min Normal 60-69 YRS: >49 mL/min Normal 70-79 YRS: >42 mL/min Normal 80 and above >35 mL/min Normal FEMALE GRF INTERPRETATION: 20-39 YRS: >60 mL/min Normal 40-49 YRS: >58 mL/min Normal 50-59 YRS: >51 mL/min Normal 60-69 YRS: >45 mL/min Normal 70-79 YRS: >39 mL/min Normal 80 and above >32 mL/min Normal Basophils [#/volume] in Blood by Automated count 0.0 x10E3/uL 0.0-0.2 [facility] ([facility]) CHRONIC KIDNEY DISEASE STAGING PER NKF: MALE GFR INTERPRETATION: 20-49 YRS: >60 mL/min Normal 50-59 YRS: >56 mL/min Normal 60-69 YRS: >49 mL/min Normal 70-79 YRS: >42 mL/min Normal 80 and above >35 mL/min Normal FEMALE GRF INTERPRETATION: 20-39 YRS: >60 mL/min Normal 40-49 YRS: >58 mL/min Normal 50-59 YRS: >51 mL/min Normal 60-69 YRS: >45 mL/min Normal 70-79 YRS: >39 mL/min Normal 80 and above >32 mL/min Normal CHRONIC KIDNEY DISEASE STAGING PER NKF: MALE GFR INTERPRETATION: 20-49 YRS: >60 mL/min Normal 50-59 YRS: >56 mL/min Normal 60-69 YRS: >49 mL/min Normal 70-79 YRS: >42 mL/min Normal 80 and above >35 mL/min Normal FEMALE GRF INTERPRETATION: 20-39 YRS: >60 mL/min Normal 40-49 YRS: >58 mL/min Normal 50-59 YRS: >51 mL/min Normal 60-69 YRS: >45 mL/min Normal 70-79 YRS: >39 mL/min Normal 80 and above >32 mL/min Normal Immature granulocytes [#/volume] in Blood by Automated count 0.4 x10E3/uL 0.0-0.1 [facility] ([facility]) CHRONIC KIDNEY DISEASE STAGING PER NKF: MALE GFR INTERPRETATION: 20-49 YRS: >60 mL/min Normal 50-59 YRS: >56 mL/min Normal 60-69 YRS: >49 mL/min Normal 70-79 YRS: >42 mL/min Normal 80 and above >35 mL/min Normal FEMALE GRF INTERPRETATION: 20-39 YRS: >60 mL/min Normal 40-49 YRS: >58 mL/min Normal 50-59 YRS: >51 mL/min Normal 60-69 YRS: >45 mL/min Normal 70-79 YRS: >39 mL/min Normal 80 and above >32 mL/min Normal CHRONIC KIDNEY DISEASE STAGING PER NKF: MALE GFR INTERPRETATION: 20-49 YRS: >60 mL/min Normal 50-59 YRS: >56 mL/min Normal 60-69 YRS: >49 mL/min Normal 70-79 YRS: >42 mL/min Normal 80 and above >35 mL/min Normal FEMALE GRF INTERPRETATION: 20-39 YRS: >60 mL/min Normal 40-49 YRS: >58 mL/min Normal 50-59 YRS: >51 mL/min Normal 60-69 YRS: >45 mL/min Normal 70-79 YRS: >39 mL/min Normal 80 and above >32 mL/min Normal Immature granulocytes/100 leukocytes in Blood by Automated count 5 % [facility] ([facility]) CHRONIC KIDNEY DISEASE STAGING PER NKF: MALE GFR INTERPRETATION: 20-49 YRS: >60 mL/min Normal 50-59 YRS: >56 mL/min Normal 60-69 YRS: >49 mL/min Normal 70-79 YRS: >42 mL/min Normal 80 and above >35 mL/min Normal FEMALE GRF INTERPRETATION: 20-39 YRS: >60 mL/min Normal 40-49 YRS: >58 mL/min Normal 50-59 YRS: >51 mL/min Normal 60-69 YRS: >45 mL/min Normal 70-79 YRS: >39 mL/min Normal 80 and above >32 mL/min Normal CHRONIC KIDNEY DISEASE STAGING PER NKF: MALE GFR INTERPRETATION: 20-49 YRS: >60 mL/min Normal 50-59 YRS: >56 mL/min Normal 60-69 YRS: >49 mL/min Normal 70-79 YRS: >42 mL/min Normal 80 and above >35 mL/min Normal FEMALE GRF INTERPRETATION: 20-39 YRS: >60 mL/min Normal 40-49 YRS: >58 mL/min Normal 50-59 YRS: >51 mL/min Normal 60-69 YRS: >45 mL/min Normal 70-79 YRS: >39 mL/min Normal 80 and above >32 mL/min Normal Nucleated erythrocytes/100 leukocytes [Ratio] in Blood by Automated count Laboratory test result [facility] ([facility]) CHRONIC KIDNEY DISEASE STAGING PER NKF: MALE GFR INTERPRETATION: 20-49 YRS: >60 mL/min Normal 50-59 YRS: >56 mL/min Normal 60-69 YRS: >49 mL/min Normal 70-79 YRS: >42 mL/min Normal 80 and above >35 mL/min Normal FEMALE GRF INTERPRETATION: 20-39 YRS: >60 mL/min Normal 40-49 YRS: >58 mL/min Normal 50-59 YRS: >51 mL/min Normal 60-69 YRS: >45 mL/min Normal 70-79 YRS: >39 mL/min Normal 80 and above >32 mL/min Normal CHRONIC KIDNEY DISEASE STAGING PER NKF: MALE GFR INTERPRETATION: 20-49 YRS: >60 mL/min Normal 50-59 YRS: >56 mL/min Normal 60-69 YRS: >49 mL/min Normal 70-79 YRS: >42 mL/min Normal 80 and above >35 mL/min Normal FEMALE GRF INTERPRETATION: 20-39 YRS: >60 mL/min Normal 40-49 YRS: >58 mL/min Normal 50-59 YRS: >51 mL/min Normal 60-69 YRS: >45 mL/min Normal 70-79 YRS: >39 mL/min Normal 80 and above >32 mL/min Normal Morphology [Interpretation] in Blood Narrative Laboratory test result [id number] ([facility]) CHRONIC KIDNEY DISEASE STAGING PER NKF: MALE GFR INTERPRETATION: 20-49 YRS: >60 mL/min Normal 50-59 YRS: >56 mL/min Normal 60-69 YRS: >49 mL/min Normal 70-79 YRS: >42 mL/min Normal 80 and above >35 mL/min Normal FEMALE GRF INTERPRETATION: 20-39 YRS: >60 mL/min Normal 40-49 YRS: >58 mL/min Normal 50-59 YRS: >51 mL/min Normal 60-69 YRS: >45 mL/min Normal 70-79 YRS: >39 mL/min Normal 80 and above >32 mL/min Normal CHRONIC KIDNEY DISEASE STAGING PER NKF: MALE GFR INTERPRETATION: 20-49 YRS: >60 mL/min Normal 50-59 YRS: >56 mL/min Normal 60-69 YRS: >49 mL/min Normal 70-79 YRS: >42 mL/min Normal 80 and above >35 mL/min Normal FEMALE GRF INTERPRETATION: 20-39 YRS: >60 mL/min Normal 40-49 YRS: >58 mL/min Normal 50-59 YRS: >51 mL/min Normal 60-69 YRS: >45 mL/min Normal 70-79 YRS: >39 mL/min Normal 80 and above >32 mL/min Normal ID Date Data Source [id number] 09/03/2019 10:07:00 AM EDT [facility] ([facility] Name Value Range Interpretation Code Description Data Pennie rce(s) Supporting Document(s) BUN 23 mg/dL 8-23 [facility] ([facility] CHRONIC KIDNEY DISEASE STAGING PER NKF: MALE GFR INTERPRETATION: 20-49 YRS: >60 mL/min Normal 50-59 YRS: >56 mL/min Normal 60-69 YRS: >49 mL/min Normal 70-79 YRS: >42 mL/min Normal 80 and above >35 mL/min Normal FEMALE GRF INTERPRETATION: 20-39 YRS: >60 mL/min Normal 40-49 YRS: >58 mL/min Normal 50-59 YRS: >51 mL/min Normal 60-69 YRS: >45 mL/min Normal 70-79 YRS: >39 mL/min Normal 80 and above >32 mL/min Normal CHRONIC KIDNEY DISEASE STAGING PER NKF: MALE GFR INTERPRETATION: 20-49 YRS: >60 mL/min Normal 50-59 YRS: >56 mL/min Normal 60-69 YRS: >49 mL/min Normal 70-79 YRS: >42 mL/min Normal 80 and above >35 mL/min Normal FEMALE GRF INTERPRETATION: 20-39 YRS: >60 mL/min Normal 40-49 YRS: >58 mL/min Normal 50-59 YRS: >51 mL/min Normal 60-69 YRS: >45 mL/min Normal 70-79 YRS: >39 mL/min Normal 80 and above >32 mL/min Normal Glu 173 mg/dL 70-110 [facility] ([facility] CHRONIC KIDNEY DISEASE STAGING PER NKF: MALE GFR INTERPRETATION: 20-49 YRS: >60 mL/min Normal 50-59 YRS: >56 mL/min Normal 60-69 YRS: >49 mL/min Normal 70-79 YRS: >42 mL/min Normal 80 and above >35 mL/min Normal FEMALE GRF INTERPRETATION: 20-39 YRS: >60 mL/min Normal 40-49 YRS: >58 mL/min Normal 50-59 YRS: >51 mL/min Normal 60-69 YRS: >45 mL/min Normal 70-79 YRS: >39 mL/min Normal 80 and above >32 mL/min Normal CHRONIC KIDNEY DISEASE STAGING PER NKF: MALE GFR INTERPRETATION: 20-49 YRS: >60 mL/min Normal 50-59 YRS: >56 mL/min Normal 60-69 YRS: >49 mL/min Normal 70-79 YRS: >42 mL/min Normal 80 and above >35 mL/min Normal FEMALE GRF INTERPRETATION: 20-39 YRS: >60 mL/min Normal 40-49 YRS: >58 mL/min Normal 50-59 YRS: >51 mL/min Normal 60-69 YRS: >45 mL/min Normal 70-79 YRS: >39 mL/min Normal 80 and above >32 mL/min Normal Urea nitrogen/Creatinine [Mass Ratio] in Serum or Plasma 15.5 Calc [facility] ([facility]) CHRONIC KIDNEY DISEASE STAGING PER NKF: MALE GFR INTERPRETATION: 20-49 YRS: >60 mL/min Normal 50-59 YRS: >56 mL/min Normal 60-69 YRS: >49 mL/min Normal 70-79 YRS: >42 mL/min Normal 80 and above >35 mL/min Normal FEMALE GRF INTERPRETATION: 20-39 YRS: >60 mL/min Normal 40-49 YRS: >58 mL/min Normal 50-59 YRS: >51 mL/min Normal 60-69 YRS: >45 mL/min Normal 70-79 YRS: >39 mL/min Normal 80 and above >32 mL/min Normal CHRONIC KIDNEY DISEASE STAGING PER NKF: MALE GFR INTERPRETATION: 20-49 YRS: >60 mL/min Normal 50-59 YRS: >56 mL/min Normal 60-69 YRS: >49 mL/min Normal 70-79 YRS: >42 mL/min Normal 80 and above >35 mL/min Normal FEMALE GRF INTERPRETATION: 20-39 YRS: >60 mL/min Normal 40-49 YRS: >58 mL/min Normal 50-59 YRS: >51 mL/min Normal 60-69 YRS: >45 mL/min Normal 70-79 YRS: >39 mL/min Normal 80 and above >32 mL/min Normal Creat 1.5 mg/dL 0.7-1.2 [facility] ([facility] CHRONIC KIDNEY DISEASE STAGING PER NKF: MALE GFR INTERPRETATION: 20-49 YRS: >60 mL/min Normal 50-59 YRS: >56 mL/min Normal 60-69 YRS: >49 mL/min Normal 70-79 YRS: >42 mL/min Normal 80 and above >35 mL/min Normal FEMALE GRF INTERPRETATION: 20-39 YRS: >60 mL/min Normal 40-49 YRS: >58 mL/min Normal 50-59 YRS: >51 mL/min Normal 60-69 YRS: >45 mL/min Normal 70-79 YRS: >39 mL/min Normal 80 and above >32 mL/min Normal CHRONIC KIDNEY DISEASE STAGING PER NKF: MALE GFR INTERPRETATION: 20-49 YRS: >60 mL/min Normal 50-59 YRS: >56 mL/min Normal 60-69 YRS: >49 mL/min Normal 70-79 YRS: >42 mL/min Normal 80 and above >35 mL/min Normal FEMALE GRF INTERPRETATION: 20-39 YRS: >60 mL/min Normal 40-49 YRS: >58 mL/min Normal 50-59 YRS: >51 mL/min Normal 60-69 YRS: >45 mL/min Normal 70-79 YRS: >39 mL/min Normal 80 and above >32 mL/min Normal K 4.2 mmol/L 3.5-5.1 [facility] ([facility]) CHRONIC KIDNEY DISEASE STAGING PER NKF: MALE GFR INTERPRETATION: 20-49 YRS: >60 mL/min Normal 50-59 YRS: >56 mL/min Normal 60-69 YRS: >49 mL/min Normal 70-79 YRS: >42 mL/min Normal 80 and above >35 mL/min Normal FEMALE GRF INTERPRETATION: 20-39 YRS: >60 mL/min Normal 40-49 YRS: >58 mL/min Normal 50-59 YRS: >51 mL/min Normal 60-69 YRS: >45 mL/min Normal 70-79 YRS: >39 mL/min Normal 80 and above >32 mL/min Normal CHRONIC KIDNEY DISEASE STAGING PER NKF: MALE GFR INTERPRETATION: 20-49 YRS: >60 mL/min Normal 50-59 YRS: >56 mL/min Normal 60-69 YRS: >49 mL/min Normal 70-79 YRS: >42 mL/min Normal 80 and above >35 mL/min Normal FEMALE GRF INTERPRETATION: 20-39 YRS: >60 mL/min Normal 40-49 YRS: >58 mL/min Normal 50-59 YRS: >51 mL/min Normal 60-69 YRS: >45 mL/min Normal 70-79 YRS: >39 mL/min Normal 80 and above >32 mL/min Normal Na 142 mmol/L 136-145 [facility] ([facility]) CHRONIC KIDNEY DISEASE STAGING PER NKF: MALE GFR INTERPRETATION: 20-49 YRS: >60 mL/min Normal 50-59 YRS: >56 mL/min Normal 60-69 YRS: >49 mL/min Normal 70-79 YRS: >42 mL/min Normal 80 and above >35 mL/min Normal FEMALE GRF INTERPRETATION: 20-39 YRS: >60 mL/min Normal 40-49 YRS: >58 mL/min Normal 50-59 YRS: >51 mL/min Normal 60-69 YRS: >45 mL/min Normal 70-79 YRS: >39 mL/min Normal 80 and above >32 mL/min Normal CHRONIC KIDNEY DISEASE STAGING PER NKF: MALE GFR INTERPRETATION: 20-49 YRS: >60 mL/min Normal 50-59 YRS: >56 mL/min Normal 60-69 YRS: >49 mL/min Normal 70-79 YRS: >42 mL/min Normal 80 and above >35 mL/min Normal FEMALE GRF INTERPRETATION: 20-39 YRS: >60 mL/min Normal 40-49 YRS: >58 mL/min Normal 50-59 YRS: >51 mL/min Normal 60-69 YRS: >45 mL/min Normal 70-79 YRS: >39 mL/min Normal 80 and above >32 mL/min Normal CL 102.8 mmol/L 98.0-107.0 [facility] ([facility]) CHRONIC KIDNEY DISEASE STAGING PER NKF: MALE GFR INTERPRETATION: 20-49 YRS: >60 mL/min Normal 50-59 YRS: >56 mL/min Normal 60-69 YRS: >49 mL/min Normal 70-79 YRS: >42 mL/min Normal 80 and above >35 mL/min Normal FEMALE GRF INTERPRETATION: 20-39 YRS: >60 mL/min Normal 40-49 YRS: >58 mL/min Normal 50-59 YRS: >51 mL/min Normal 60-69 YRS: >45 mL/min Normal 70-79 YRS: >39 mL/min Normal 80 and above >32 mL/min Normal CHRONIC KIDNEY DISEASE STAGING PER NKF: MALE GFR INTERPRETATION: 20-49 YRS: >60 mL/min Normal 50-59 YRS: >56 mL/min Normal 60-69 YRS: >49 mL/min Normal 70-79 YRS: >42 mL/min Normal 80 and above >35 mL/min Normal FEMALE GRF INTERPRETATION: 20-39 YRS: >60 mL/min Normal 40-49 YRS: >58 mL/min Normal 50-59 YRS: >51 mL/min Normal 60-69 YRS: >45 mL/min Normal 70-79 YRS: >39 mL/min Normal 80 and above >32 mL/min Normal CA 9.0 mg/dL 8.6-10.2 [facility] ([facility] CHRONIC KIDNEY DISEASE STAGING PER NKF: MALE GFR INTERPRETATION: 20-49 YRS: >60 mL/min Normal 50-59 YRS: >56 mL/min Normal 60-69 YRS: >49 mL/min Normal 70-79 YRS: >42 mL/min Normal 80 and above >35 mL/min Normal FEMALE GRF INTERPRETATION: 20-39 YRS: >60 mL/min Normal 40-49 YRS: >58 mL/min Normal 50-59 YRS: >51 mL/min Normal 60-69 YRS: >45 mL/min Normal 70-79 YRS: >39 mL/min Normal 80 and above >32 mL/min Normal CHRONIC KIDNEY DISEASE STAGING PER NKF: MALE GFR INTERPRETATION: 20-49 YRS: >60 mL/min Normal 50-59 YRS: >56 mL/min Normal 60-69 YRS: >49 mL/min Normal 70-79 YRS: >42 mL/min Normal 80 and above >35 mL/min Normal FEMALE GRF INTERPRETATION: 20-39 YRS: >60 mL/min Normal 40-49 YRS: >58 mL/min Normal 50-59 YRS: >51 mL/min Normal 60-69 YRS: >45 mL/min Normal 70-79 YRS: >39 mL/min Normal 80 and above >32 mL/min Normal TP 5.5 g/dL 6.6-8.7 [facility] ([facility] CHRONIC KIDNEY DISEASE STAGING PER NKF: MALE GFR INTERPRETATION: 20-49 YRS: >60 mL/min Normal 50-59 YRS: >56 mL/min Normal 60-69 YRS: >49 mL/min Normal 70-79 YRS: >42 mL/min Normal 80 and above >35 mL/min Normal FEMALE GRF INTERPRETATION: 20-39 YRS: >60 mL/min Normal 40-49 YRS: >58 mL/min Normal 50-59 YRS: >51 mL/min Normal 60-69 YRS: >45 mL/min Normal 70-79 YRS: >39 mL/min Normal 80 and above >32 mL/min Normal CHRONIC KIDNEY DISEASE STAGING PER NKF: MALE GFR INTERPRETATION: 20-49 YRS: >60 mL/min Normal 50-59 YRS: >56 mL/min Normal 60-69 YRS: >49 mL/min Normal 70-79 YRS: >42 mL/min Normal 80 and above >35 mL/min Normal FEMALE GRF INTERPRETATION: 20-39 YRS: >60 mL/min Normal 40-49 YRS: >58 mL/min Normal 50-59 YRS: >51 mL/min Normal 60-69 YRS: >45 mL/min Normal 70-79 YRS: >39 mL/min Normal 80 and above >32 mL/min Normal Co2 27.4 mmol/L 22.0-29.0 [facility] ([facility]) CHRONIC KIDNEY DISEASE STAGING PER NKF: MALE GFR INTERPRETATION: 20-49 YRS: >60 mL/min Normal 50-59 YRS: >56 mL/min Normal 60-69 YRS: >49 mL/min Normal 70-79 YRS: >42 mL/min Normal 80 and above >35 mL/min Normal FEMALE GRF INTERPRETATION: 20-39 YRS: >60 mL/min Normal 40-49 YRS: >58 mL/min Normal 50-59 YRS: >51 mL/min Normal 60-69 YRS: >45 mL/min Normal 70-79 YRS: >39 mL/min Normal 80 and above >32 mL/min Normal CHRONIC KIDNEY DISEASE STAGING PER NKF: MALE GFR INTERPRETATION: 20-49 YRS: >60 mL/min Normal 50-59 YRS: >56 mL/min Normal 60-69 YRS: >49 mL/min Normal 70-79 YRS: >42 mL/min Normal 80 and above >35 mL/min Normal FEMALE GRF INTERPRETATION: 20-39 YRS: >60 mL/min Normal 40-49 YRS: >58 mL/min Normal 50-59 YRS: >51 mL/min Normal 60-69 YRS: >45 mL/min Normal 70-79 YRS: >39 mL/min Normal 80 and above >32 mL/min Normal A/G Ratio 2.2 Calc [facility] ([facility] CHRONIC KIDNEY DISEASE STAGING PER NKF: MALE GFR INTERPRETATION: 20-49 YRS: >60 mL/min Normal 50-59 YRS: >56 mL/min Normal 60-69 YRS: >49 mL/min Normal 70-79 YRS: >42 mL/min Normal 80 and above >35 mL/min Normal FEMALE GRF INTERPRETATION: 20-39 YRS: >60 mL/min Normal 40-49 YRS: >58 mL/min Normal 50-59 YRS: >51 mL/min Normal 60-69 YRS: >45 mL/min Normal 70-79 YRS: >39 mL/min Normal 80 and above >32 mL/min Normal CHRONIC KIDNEY DISEASE STAGING PER NKF: MALE GFR INTERPRETATION: 20-49 YRS: >60 mL/min Normal 50-59 YRS: >56 mL/min Normal 60-69 YRS: >49 mL/min Normal 70-79 YRS: >42 mL/min Normal 80 and above >35 mL/min Normal FEMALE GRF INTERPRETATION: 20-39 YRS: >60 mL/min Normal 40-49 YRS: >58 mL/min Normal 50-59 YRS: >51 mL/min Normal 60-69 YRS: >45 mL/min Normal 70-79 YRS: >39 mL/min Normal 80 and above >32 mL/min Normal Alb 3.8 g/dL 3.5-5.2 [facility] ([facility] CHRONIC KIDNEY DISEASE STAGING PER NKF: MALE GFR INTERPRETATION: 20-49 YRS: >60 mL/min Normal 50-59 YRS: >56 mL/min Normal 60-69 YRS: >49 mL/min Normal 70-79 YRS: >42 mL/min Normal 80 and above >35 mL/min Normal FEMALE GRF INTERPRETATION: 20-39 YRS: >60 mL/min Normal 40-49 YRS: >58 mL/min Normal 50-59 YRS: >51 mL/min Normal 60-69 YRS: >45 mL/min Normal 70-79 YRS: >39 mL/min Normal 80 and above >32 mL/min Normal CHRONIC KIDNEY DISEASE STAGING PER NKF: MALE GFR INTERPRETATION: 20-49 YRS: >60 mL/min Normal 50-59 YRS: >56 mL/min Normal 60-69 YRS: >49 mL/min Normal 70-79 YRS: >42 mL/min Normal 80 and above >35 mL/min Normal FEMALE GRF INTERPRETATION: 20-39 YRS: >60 mL/min Normal 40-49 YRS: >58 mL/min Normal 50-59 YRS: >51 mL/min Normal 60-69 YRS: >45 mL/min Normal 70-79 YRS: >39 mL/min Normal 80 and above >32 mL/min Normal Globulin [Mass/volume] in Serum by calculation 1.7 Calc [facility] ([facility]) CHRONIC KIDNEY DISEASE STAGING PER NKF: MALE GFR INTERPRETATION: 20-49 YRS: >60 mL/min Normal 50-59 YRS: >56 mL/min Normal 60-69 YRS: >49 mL/min Normal 70-79 YRS: >42 mL/min Normal 80 and above >35 mL/min Normal FEMALE GRF INTERPRETATION: 20-39 YRS: >60 mL/min Normal 40-49 YRS: >58 mL/min Normal 50-59 YRS: >51 mL/min Normal 60-69 YRS: >45 mL/min Normal 70-79 YRS: >39 mL/min Normal 80 and above >32 mL/min Normal CHRONIC KIDNEY DISEASE STAGING PER NKF: MALE GFR INTERPRETATION: 20-49 YRS: >60 mL/min Normal 50-59 YRS: >56 mL/min Normal 60-69 YRS: >49 mL/min Normal 70-79 YRS: >42 mL/min Normal 80 and above >35 mL/min Normal FEMALE GRF INTERPRETATION: 20-39 YRS: >60 mL/min Normal 40-49 YRS: >58 mL/min Normal 50-59 YRS: >51 mL/min Normal 60-69 YRS: >45 mL/min Normal 70-79 YRS: >39 mL/min Normal 80 and above >32 mL/min Normal Alp 36.9 U/L 40-129 [facility] ([facility] CHRONIC KIDNEY DISEASE STAGING PER NKF: MALE GFR INTERPRETATION: 20-49 YRS: >60 mL/min Normal 50-59 YRS: >56 mL/min Normal 60-69 YRS: >49 mL/min Normal 70-79 YRS: >42 mL/min Normal 80 and above >35 mL/min Normal FEMALE GRF INTERPRETATION: 20-39 YRS: >60 mL/min Normal 40-49 YRS: >58 mL/min Normal 50-59 YRS: >51 mL/min Normal 60-69 YRS: >45 mL/min Normal 70-79 YRS: >39 mL/min Normal 80 and above >32 mL/min Normal CHRONIC KIDNEY DISEASE STAGING PER NKF: MALE GFR INTERPRETATION: 20-49 YRS: >60 mL/min Normal 50-59 YRS: >56 mL/min Normal 60-69 YRS: >49 mL/min Normal 70-79 YRS: >42 mL/min Normal 80 and above >35 mL/min Normal FEMALE GRF INTERPRETATION: 20-39 YRS: >60 mL/min Normal 40-49 YRS: >58 mL/min Normal 50-59 YRS: >51 mL/min Normal 60-69 YRS: >45 mL/min Normal 70-79 YRS: >39 mL/min Normal 80 and above >32 mL/min Normal Aspartate aminotransferase [Enzymatic activity/volume] in Serum or Plasma 13 U/L 0-40 [facility] ([facility] CHRONIC KIDNEY DISEASE STAGING PER NKF: MALE GFR INTERPRETATION: 20-49 YRS: >60 mL/min Normal 50-59 YRS: >56 mL/min Normal 60-69 YRS: >49 mL/min Normal 70-79 YRS: >42 mL/min Normal 80 and above >35 mL/min Normal FEMALE GRF INTERPRETATION: 20-39 YRS: >60 mL/min Normal 40-49 YRS: >58 mL/min Normal 50-59 YRS: >51 mL/min Normal 60-69 YRS: >45 mL/min Normal 70-79 YRS: >39 mL/min Normal 80 and above >32 mL/min Normal CHRONIC KIDNEY DISEASE STAGING PER NKF: MALE GFR INTERPRETATION: 20-49 YRS: >60 mL/min Normal 50-59 YRS: >56 mL/min Normal 60-69 YRS: >49 mL/min Normal 70-79 YRS: >42 mL/min Normal 80 and above >35 mL/min Normal FEMALE GRF INTERPRETATION: 20-39 YRS: >60 mL/min Normal 40-49 YRS: >58 mL/min Normal 50-59 YRS: >51 mL/min Normal 60-69 YRS: >45 mL/min Normal 70-79 YRS: >39 mL/min Normal 80 and above >32 mL/min Normal Alanine aminotransferase [Enzymatic activity/volume] in Seru m or Plasma 7 U/L 0-41 [facility] ([facility]) CHRONIC KIDNEY DISEASE STAGING PER NKF: MALE GFR INTERPRETATION: 20-49 YRS: >60 mL/min Normal 50-59 YRS: >56 mL/min Normal 60-69 YRS: >49 mL/min Normal 70-79 YRS: >42 mL/min Normal 80 and above >35 mL/min Normal FEMALE GRF INTERPRETATION: 20-39 YRS: >60 mL/min Normal 40-49 YRS: >58 mL/min Normal 50-59 YRS: >51 mL/min Normal 60-69 YRS: >45 mL/min Normal 70-79 YRS: >39 mL/min Normal 80 and above >32 mL/min Normal CHRONIC KIDNEY DISEASE STAGING PER NKF: MALE GFR INTERPRETATION: 20-49 YRS: >60 mL/min Normal 50-59 YRS: >56 mL/min Normal 60-69 YRS: >49 mL/min Normal 70-79 YRS: >42 mL/min Normal 80 and above >35 mL/min Normal FEMALE GRF INTERPRETATION: 20-39 YRS: >60 mL/min Normal 40-49 YRS: >58 mL/min Normal 50-59 YRS: >51 mL/min Normal 60-69 YRS: >45 mL/min Normal 70-79 YRS: >39 mL/min Normal 80 and above >32 mL/min Normal Anion gap in Serum or Plasma 16 mmol/L [facility] ([facility]) CHRONIC KIDNEY DISEASE STAGING PER NKF: MALE GFR INTERPRETATION: 20-49 YRS: >60 mL/min Normal 50-59 YRS: >56 mL/min Normal 60-69 YRS: >49 mL/min Normal 70-79 YRS: >42 mL/min Normal 80 and above >35 mL/min Normal FEMALE GRF INTERPRETATION: 20-39 YRS: >60 mL/min Normal 40-49 YRS: >58 mL/min Normal 50-59 YRS: >51 mL/min Normal 60-69 YRS: >45 mL/min Normal 70-79 YRS: >39 mL/min Normal 80 and above >32 mL/min Normal CHRONIC KIDNEY DISEASE STAGING PER NKF: MALE GFR INTERPRETATION: 20-49 YRS: >60 mL/min Normal 50-59 YRS: >56 mL/min Normal 60-69 YRS: >49 mL/min Normal 70-79 YRS: >42 mL/min Normal 80 and above >35 mL/min Normal FEMALE GRF INTERPRETATION: 20-39 YRS: >60 mL/min Normal 40-49 YRS: >58 mL/min Normal 50-59 YRS: >51 mL/min Normal 60-69 YRS: >45 mL/min Normal 70-79 YRS: >39 mL/min Normal 80 and above >32 mL/min Normal Tbili 0.44 mg/dL 0.0-1.2 [facility] ([facility]) CHRONIC KIDNEY DISEASE STAGING PER NKF: MALE GFR INTERPRETATION: 20-49 YRS: >60 mL/min Normal 50-59 YRS: >56 mL/min Normal 60-69 YRS: >49 mL/min Normal 70-79 YRS: >42 mL/min Normal 80 and above >35 mL/min Normal FEMALE GRF INTERPRETATION: 20-39 YRS: >60 mL/min Normal 40-49 YRS: >58 mL/min Normal 50-59 YRS: >51 mL/min Normal 60-69 YRS: >45 mL/min Normal 70-79 YRS: >39 mL/min Normal 80 and above >32 mL/min Normal CHRONIC KIDNEY DISEASE STAGING PER NKF: MALE GFR INTERPRETATION: 20-49 YRS: >60 mL/min Normal 50-59 YRS: >56 mL/min Normal 60-69 YRS: >49 mL/min Normal 70-79 YRS: >42 mL/min Normal 80 and above >35 mL/min Normal FEMALE GRF INTERPRETATION: 20-39 YRS: >60 mL/min Normal 40-49 YRS: >58 mL/min Normal 50-59 YRS: >51 mL/min Normal 60-69 YRS: >45 mL/min Normal 70-79 YRS: >39 mL/min Normal 80 and above >32 mL/min Normal Osmolality-Calculated 291.8 Calc [facility] ([facility]) CHRONIC KIDNEY DISEASE STAGING PER NKF: MALE GFR INTERPRETATION: 20-49 YRS: >60 mL/min Normal 50-59 YRS: >56 mL/min Normal 60-69 YRS: >49 mL/min Normal 70-79 YRS: >42 mL/min Normal 80 and above >35 mL/min Normal FEMALE GRF INTERPRETATION: 20-39 YRS: >60 mL/min Normal 40-49 YRS: >58 mL/min Normal 50-59 YRS: >51 mL/min Normal 60-69 YRS: >45 mL/min Normal 70-79 YRS: >39 mL/min Normal 80 and above >32 mL/min Normal CHRONIC KIDNEY DISEASE STAGING PER NKF: MALE GFR INTERPRETATION: 20-49 YRS: >60 mL/min Normal 50-59 YRS: >56 mL/min Normal 60-69 YRS: >49 mL/min Normal 70-79 YRS: >42 mL/min Normal 80 and above >35 mL/min Normal FEMALE GRF INTERPRETATION: 20-39 YRS: >60 mL/min Normal 40-49 YRS: >58 mL/min Normal 50-59 YRS: >51 mL/min Normal 60-69 YRS: >45 mL/min Normal 70-79 YRS: >39 mL/min Normal 80 and above >32 mL/min Normal eGFR 49 # [facility] ( [facility]) CHRONIC KIDNEY DISEASE STAGING PER NKF: MALE GFR INTERPRETATION: 20-49 YRS: >60 mL/min Normal 50-59 YRS: >56 mL/min Normal 60-69 YRS: >49 mL/min Normal 70-79 YRS: >42 mL/min Normal 80 and above >35 mL/min Normal FEMALE GRF INTERPRETATION: 20-39 YRS: >60 mL/min Normal 40-49 YRS: >58 mL/min Normal 50-59 YRS: >51 mL/min Normal 60-69 YRS: >45 mL/min Normal 70-79 YRS: >39 mL/min Normal 80 and above >32 mL/min Normal CHRONIC KIDNEY DISEASE STAGING PER NKF: MALE GFR INTERPRETATION: 20-49 YRS: >60 mL/min Normal 50-59 YRS: >56 mL/min Normal 60-69 YRS: >49 mL/min Normal 70-79 YRS: >42 mL/min Normal 80 and above >35 mL/min Normal FEMALE GRF INTERPRETATION: 20-39 YRS: >60 mL/min Normal 40-49 YRS: >58 mL/min Normal 50-59 YRS: >51 mL/min Normal 60-69 YRS: >45 mL/min Normal 70-79 YRS: >39 mL/min Normal 80 and above >32 mL/min Normal eGFR Non-Afr. [place] 42 # [facility] ([facility]) CHRONIC KIDNEY DISEASE STAGING PER NKF: MALE GFR INTERPRETATION: 20-49 YRS: >60 mL/min Normal 50-59 YRS: >56 mL/min Normal 60-69 YRS: >49 mL/min Normal 70-79 YRS: >42 mL/min Normal 80 and above >35 mL/min Normal FEMALE GRF INTERPRETATION: 20-39 YRS: >60 mL/min Normal 40-49 YRS: >58 mL/min Normal 50-59 YRS: >51 mL/min Normal 60-69 YRS: >45 mL/min Normal 70-79 YRS: >39 mL/min Normal 80 and above >32 mL/min Normal CHRONIC KIDNEY DISEASE STAGING PER NKF: MALE GFR INTERPRETATION: 20-49 YRS: >60 mL/min Normal 50-59 YRS: >56 mL/min Normal 60-69 YRS: >49 mL/min Normal 70-79 YRS: >42 mL/min Normal 80 and above >35 mL/min Normal FEMALE GRF INTERPRETATION: 20-39 YRS: >60 mL/min Normal 40-49 YRS: >58 mL/min Normal 50-59 YRS: >51 mL/min Normal 60-69 YRS: >45 mL/min Normal 70-79 YRS: >39 mL/min Normal 80 and above >32 mL/min Normal ID Date Data Source [id number] 09/03/2019 10:07:00 AM EDT [facility] ([facility] Name Value Range Interpretation Code Description Data Pennie rce(s) Supporting Document(s) Erythrocytes [#/volume] in Blood by Automated count 3.72 x10E6/u L 4.14-5.80 Below low normal [facility] ([facility] Leukocytes [#/volume] in Blood by Automated count 9.5 x10E3/uL 3.4-10 .8 [facility] ([facility] Hemoglobin [Mass/volume] in Blood 10.8 g/dL 13.0-17.7 Below low nor mal [facility] ([facility] Hematocrit [Volume Fraction] of Blood by Automated count 32.8 % 37.5-51.0 Below low normal [facility] ([facility] Erythrocyte mean corpuscular hemoglobin [Entitic mass] by Automated count 29.0 pg 26.6-33.0 [facility] Erythrocyte mean corpuscular volume [Entitic volume] by Auto mated count 88 fL 79-97 [facility] ([facility] Erythrocyte mean corpuscular hemoglobin concentration [Mass/volume] by Automated count 32.9 g/dL 31.5-35.7 [facility] ([facility] Erythrocyte distribution width [Ratio] by Automated count 17.7 % 11.6-15.4 Above high normal [facility] ([facility] Platelets [#/volume] in Blood by Automated count 191 x10E3/uL 150-450 [facility] ([facility] Lymphs 10 % [facility] Monocytes/100 leukocytes in Blood by Automated count 12 % [facility] ([facility] Neutrophils 73 % [facility] ([facility] Eosinophils/100 leukocytes in Blood by Automated count 0 % [facility] ([facility] Basophils/100 leukocytes in Blood by Automated count 0 % [facility] ([facility] Immature cells [#/volume] in Blood Laboratory test result [facility] ([facility] Monocytes [#/volume] in Blood 1.2 x10E3/uL 0.1-0.9 Above high norm al [facility] ([facility] Lymphocytes [#/volume] in Blood 0.9 x10E3/uL 0.7-3.1 [facility] ([facility] Neutrophils [#/volume] in Blood by Automated count 6.9 x10E3/uL 1.4-7 .0 [facility] ([facility] Eosinophils [#/volume] in Blood by Automated count 0.0 x10E3/uL 0.0-0 .4 [facility] ([facility] Immature granulocytes [#/volume] in Blood by Automated count 0.4 x10E3/uL 0.0-0.1 Above high normal [facility] ([facility] (An elevated percentage of Immature Gran ulocytes has not been found to be clinically significant as a sole clinical predictor of disease. Does NOT include bands or blast cells. associated physiological leukocytosis may also show increased immature granulocytes without clinical significance.) Immature granulocytes/100 leukocytes in Blood by Automated count 5 % [facility] ([facility] Basophils [#/volume] in Blood by Automated count 0.0 x10E3/uL 0.0-0.2 [facility] ([facility] Nucleated erythrocytes/100 leukocytes [Ratio] in Blood by Automated count Laboratory test result [facility] ([facility] Morphology [Interpretation] in Blood Narrative Laboratory test result [facility] ([facility] ID Date Data Source [id number] 09/03/2019 10:07:00 AM EDT [facility] ([facility] Name Value Range Interpretation Code Description Data Pennie rce(s) Supporting Document(s) Glu 173 mg/dL 70-110 Above high normal [facility] ([facility] CHRONIC KIDNEY DISEASE STAGING PER NKF: MALE GFR INTERPRETATION: 20-49 YRS: >60 mL/min Normal 50-59 YRS: >56 mL/min Normal 60-69 YRS: >49 mL/min Normal 70-79 YRS: >42 mL/min Normal 80 and above >35 mL/min Normal FEMALE GRF INTERPRETATION: 20-39 YRS: >60 mL/min Normal 40-49 YRS: >58 mL/min Normal 50-59 YRS: >51 mL/min Normal 60-69 YRS: >45 mL/min Normal 70-79 YRS: >39 mL/min Normal 80 and above >32 mL/min Normal CHRONIC KIDNEY DISEASE STAGING PER NKF: MALE GFR INTERPRETATION: 20-49 YRS: >60 mL/min Normal 50-59 YRS: >56 mL/min Normal 60-69 YRS: >49 mL/min Normal 70-79 YRS: >42 mL/min Normal 80 and above >35 mL/min Normal FEMALE GRF INTERPRETATION: 20-39 YRS: >60 mL/min Normal 40-49 YRS: >58 mL/min Normal 50-59 YRS: >51 mL/min Normal 60-69 YRS: >45 mL/min Normal 70-79 YRS: >39 mL/min Normal 80 and above >32 mL/min Normal Na 142 mmol/L 136-145 [facility] CHRONIC KIDNEY DISEASE STAGING PER NKF: MALE GFR INTERPRETATION: 20-49 YRS: >60 mL/min Normal 50-59 YRS: >56 mL/min Normal 60-69 YRS: >49 mL/min Normal 70-79 YRS: >42 mL/min Normal 80 and above >35 mL/min Normal FEMALE GRF INTERPRETATION: 20-39 YRS: >60 mL/min Normal 40-49 YRS: >58 mL/min Normal 50-59 YRS: >51 mL/min Normal 60-69 YRS: >45 mL/min Normal 70-79 YRS: >39 mL/min Normal 80 and above >32 mL/min Normal CHRONIC KIDNEY DISEASE STAGING PER NKF: MALE GFR INTERPRETATION: 20-49 YRS: >60 mL/min Normal 50-59 YRS: >56 mL/min Normal 60-69 YRS: >49 mL/min Normal 70-79 YRS: >42 mL/min Normal 80 and above >35 mL/min Normal FEMALE GRF INTERPRETATION: 20-39 YRS: >60 mL/min Normal 40-49 YRS: >58 mL/min Normal 50-59 YRS: >51 mL/min Normal 60-69 YRS: >45 mL/min Normal 70-79 YRS: >39 mL/min Normal 80 and above >32 mL/min Normal BUN/Creatinine Ratio 15.5 Calc [facility] ([facility] CHRONIC KIDNEY DISEASE STAGING PER NKF: MALE GFR INTERPRETATION: 20-49 YRS: >60 mL/min Normal 50-59 YRS: >56 mL/min Normal 60-69 YRS: >49 mL/min Normal 70-79 YRS: >42 mL/min Normal 80 and above >35 mL/min Normal FEMALE GRF INTERPRETATION: 20-39 YRS: >60 mL/min Normal 40-49 YRS: >58 mL/min Normal 50-59 YRS: >51 mL/min Normal 60-69 YRS: >45 mL/min Normal 70-79 YRS: >39 mL/min Normal 80 and above >32 mL/min Normal CHRONIC KIDNEY DISEASE STAGING PER NKF: MALE GFR INTERPRETATION: 20-49 YRS: >60 mL/min Normal 50-59 YRS: >56 mL/min Normal 60-69 YRS: >49 mL/min Normal 70-79 YRS: >42 mL/min Normal 80 and above >35 mL/min Normal FEMALE GRF INTERPRETATION: 20-39 YRS: >60 mL/min Normal 40-49 YRS: >58 mL/min Normal 50-59 YRS: >51 mL/min Normal 60-69 YRS: >45 mL/min Normal 70-79 YRS: >39 mL/min Normal 80 and above >32 mL/min Normal BUN 23 mg/dL 8-23 [facility] CHRONIC KIDNEY DISEASE STAGING PER NKF: MALE GFR INTERPRETATION: 20-49 YRS: >60 mL/min Normal 50-59 YRS: >56 mL/min Normal 60-69 YRS: >49 mL/min Normal 70-79 YRS: >42 mL/min Normal 80 and above >35 mL/min Normal FEMALE GRF INTERPRETATION: 20-39 YRS: >60 mL/min Normal 40-49 YRS: >58 mL/min Normal 50-59 YRS: >51 mL/min Normal 60-69 YRS: >45 mL/min Normal 70-79 YRS: >39 mL/min Normal 80 and above >32 mL/min Normal CHRONIC KIDNEY DISEASE STAGING PER NKF: MALE GFR INTERPRETATION: 20-49 YRS: >60 mL/min Normal 50-59 YRS: >56 mL/min Normal 60-69 YRS: >49 mL/min Normal 70-79 YRS: >42 mL/min Normal 80 and above >35 mL/min Normal FEMALE GRF INTERPRETATION: 20-39 YRS: >60 mL/min Normal 40-49 YRS: >58 mL/min Normal 50-59 YRS: >51 mL/min Normal 60-69 YRS: >45 mL/min Normal 70-79 YRS: >39 mL/min Normal 80 and above >32 mL/min Normal Creat 1.5 mg/dL 0.7-1.2 Above high normal [facility] ([facility] CHRONIC KIDNEY DISEASE STAGING PER NKF: MALE GFR INTERPRETATION: 20-49 YRS: >60 mL/min Normal 50-59 YRS: >56 mL/min Normal 60-69 YRS: >49 mL/min Normal 70-79 YRS: >42 mL/min Normal 80 and above >35 mL/min Normal FEMALE GRF INTERPRETATION: 20-39 YRS: >60 mL/min Normal 40-49 YRS: >58 mL/min Normal 50-59 YRS: >51 mL/min Normal 60-69 YRS: >45 mL/min Normal 70-79 YRS: >39 mL/min Normal 80 and above >32 mL/min Normal CHRONIC KIDNEY DISEASE STAGING PER NKF: MALE GFR INTERPRETATION: 20-49 YRS: >60 mL/min Normal 50-59 YRS: >56 mL/min Normal 60-69 YRS: >49 mL/min Normal 70-79 YRS: >42 mL/min Normal 80 and above >35 mL/min Normal FEMALE GRF INTERPRETATION: 20-39 YRS: >60 mL/min Normal 40-49 YRS: >58 mL/min Normal 50-59 YRS: >51 mL/min Normal 60-69 YRS: >45 mL/min Normal 70-79 YRS: >39 mL/min Normal 80 and above >32 mL/min Normal CL 102.8 mmol/L 98.0-107.0 [facility] ([facility] CHRONIC KIDNEY DISEASE STAGING PER NKF: MALE GFR INTERPRETATION: 20-49 YRS: >60 mL/min Normal 50-59 YRS: >56 mL/min Normal 60-69 YRS: >49 mL/min Normal 70-79 YRS: >42 mL/min Normal 80 and above >35 mL/min Normal FEMALE GRF INTERPRETATION: 20-39 YRS: >60 mL/min Normal 40-49 YRS: >58 mL/min Normal 50-59 YRS: >51 mL/min Normal 60-69 YRS: >45 mL/min Normal 70-79 YRS: >39 mL/min Normal 80 and above >32 mL/min Normal CHRONIC KIDNEY DISEASE STAGING PER NKF: MALE GFR INTERPRETATION: 20-49 YRS: >60 mL/min Normal 50-59 YRS: >56 mL/min Normal 60-69 YRS: >49 mL/min Normal 70-79 YRS: >42 mL/min Normal 80 and above >35 mL/min Normal FEMALE GRF INTERPRETATION: 20-39 YRS: >60 mL/min Normal 40-49 YRS: >58 mL/min Normal 50-59 YRS: >51 mL/min Normal 60-69 YRS: >45 mL/min Normal 70-79 YRS: >39 mL/min Normal 80 and above >32 mL/min Normal K 4.2 mmol/L 3.5-5.1 [facility] ([facility] CHRONIC KIDNEY DISEASE STAGING PER NKF: MALE GFR INTERPRETATION: 20-49 YRS: >60 mL/min Normal 50-59 YRS: >56 mL/min Normal 60-69 YRS: >49 mL/min Normal 70-79 YRS: >42 mL/min Normal 80 and above >35 mL/min Normal FEMALE GRF INTERPRETATION: 20-39 YRS: >60 mL/min Normal 40-49 YRS: >58 mL/min Normal 50-59 YRS: >51 mL/min Normal 60-69 YRS: >45 mL/min Normal 70-79 YRS: >39 mL/min Normal 80 and above >32 mL/min Normal CHRONIC KIDNEY DISEASE STAGING PER NKF: MALE GFR INTERPRETATION: 20-49 YRS: >60 mL/min Normal 50-59 YRS: >56 mL/min Normal 60-69 YRS: >49 mL/min Normal 70-79 YRS: >42 mL/min Normal 80 and above >35 mL/min Normal FEMALE GRF INTERPRETATION: 20-39 YRS: >60 mL/min Normal 40-49 YRS: >58 mL/min Normal 50-59 YRS: >51 mL/min Normal 60-69 YRS: >45 mL/min Normal 70-79 YRS: >39 mL/min Normal 80 and above >32 mL/min Normal TP 5.5 g/dL 6.6-8.7 Below low normal [facility] ( [facility] CHRONIC KIDNEY DISEASE STAGING PER NKF: MALE GFR INTERPRETATION: 20-49 YRS: >60 mL/min Normal 50-59 YRS: >56 mL/min Normal 60-69 YRS: >49 mL/min Normal 70-79 YRS: >42 mL/min Normal 80 and above >35 mL/min Normal FEMALE GRF INTERPRETATION: 20-39 YRS: >60 mL/min Normal 40-49 YRS: >58 mL/min Normal 50-59 YRS: >51 mL/min Normal 60-69 YRS: >45 mL/min Normal 70-79 YRS: >39 mL/min Normal 80 and above >32 mL/min Normal CHRONIC KIDNEY DISEASE STAGING PER NKF: MALE GFR INTERPRETATION: 20-49 YRS: >60 mL/min Normal 50-59 YRS: >56 mL/min Normal 60-69 YRS: >49 mL/min Normal 70-79 YRS: >42 mL/min Normal 80 and above >35 mL/min Normal FEMALE GRF INTERPRETATION: 20-39 YRS: >60 mL/min Normal 40-49 YRS: >58 mL/min Normal 50-59 YRS: >51 mL/min Normal 60-69 YRS: >45 mL/min Normal 70-79 YRS: >39 mL/min Normal 80 and above >32 mL/min Normal CA 9.0 mg/dL 8.6-10.2 [facility] CHRONIC KIDNEY DISEASE STAGING PER NKF: MALE GFR INTERPRETATION: 20-49 YRS: >60 mL/min Normal 50-59 YRS: >56 mL/min Normal 60-69 YRS: >49 mL/min Normal 70-79 YRS: >42 mL/min Normal 80 and above >35 mL/min Normal FEMALE GRF INTERPRETATION: 20-39 YRS: >60 mL/min Normal 40-49 YRS: >58 mL/min Normal 50-59 YRS: >51 mL/min Normal 60-69 YRS: >45 mL/min Normal 70-79 YRS: >39 mL/min Normal 80 and above >32 mL/min Normal CHRONIC KIDNEY DISEASE STAGING PER NKF: MALE GFR INTERPRETATION: 20-49 YRS: >60 mL/min Normal 50-59 YRS: >56 mL/min Normal 60-69 YRS: >49 mL/min Normal 70-79 YRS: >42 mL/min Normal 80 and above >35 mL/min Normal FEMALE GRF INTERPRETATION: 20-39 YRS: >60 mL/min Normal 40-49 YRS: >58 mL/min Normal 50-59 YRS: >51 mL/min Normal 60-69 YRS: >45 mL/min Normal 70-79 YRS: >39 mL/min Normal 80 and above >32 mL/min Normal Co2 27.4 mmol/L 22.0-29.0 [facility] ([facility] CHRONIC KIDNEY DISEASE STAGING PER NKF: MALE GFR INTERPRETATION: 20-49 YRS: >60 mL/min Normal 50-59 YRS: >56 mL/min Normal 60-69 YRS: >49 mL/min Normal 70-79 YRS: >42 mL/min Normal 80 and above >35 mL/min Normal FEMALE GRF INTERPRETATION: 20-39 YRS: >60 mL/min Normal 40-49 YRS: >58 mL/min Normal 50-59 YRS: >51 mL/min Normal 60-69 YRS: >45 mL/min Normal 70-79 YRS: >39 mL/min Normal 80 and above >32 mL/min Normal CHRONIC KIDNEY DISEASE STAGING PER NKF: MALE GFR INTERPRETATION: 20-49 YRS: >60 mL/min Normal 50-59 YRS: >56 mL/min Normal 60-69 YRS: >49 mL/min Normal 70-79 YRS: >42 mL/min Normal 80 and above >35 mL/min Normal FEMALE GRF INTERPRETATION: 20-39 YRS: >60 mL/min Normal 40-49 YRS: >58 mL/min Normal 50-59 YRS: >51 mL/min Normal 60-69 YRS: >45 mL/min Normal 70-79 YRS: >39 mL/min Normal 80 and above >32 mL/min Normal Alb 3.8 g/dL 3.5-5.2 [facility] CHRONIC KIDNEY DISEASE STAGING PER NKF: MALE GFR INTERPRETATION: 20-49 YRS: >60 mL/min Normal 50-59 YRS: >56 mL/min Normal 60-69 YRS: >49 mL/min Normal 70-79 YRS: >42 mL/min Normal 80 and above >35 mL/min Normal FEMALE GRF INTERPRETATION: 20-39 YRS: >60 mL/min Normal 40-49 YRS: >58 mL/min Normal 50-59 YRS: >51 mL/min Normal 60-69 YRS: >45 mL/min Normal 70-79 YRS: >39 mL/min Normal 80 and above >32 mL/min Normal CHRONIC KIDNEY DISEASE STAGING PER NKF: MALE GFR INTERPRETATION: 20-49 YRS: >60 mL/min Normal 50-59 YRS: >56 mL/min Normal 60-69 YRS: >49 mL/min Normal 70-79 YRS: >42 mL/min Normal 80 and above >35 mL/min Normal FEMALE GRF INTERPRETATION: 20-39 YRS: >60 mL/min Normal 40-49 YRS: >58 mL/min Normal 50-59 YRS: >51 mL/min Normal 60-69 YRS: >45 mL/min Normal 70-79 YRS: >39 mL/min Normal 80 and above >32 mL/min Normal A/G Ratio 2.2 Calc [facility] ([facility] CHRONIC KIDNEY DISEASE STAGING PER NKF: MALE GFR INTERPRETATION: 20-49 YRS: >60 mL/min Normal 50-59 YRS: >56 mL/min Normal 60-69 YRS: >49 mL/min Normal 70-79 YRS: >42 mL/min Normal 80 and above >35 mL/min Normal FEMALE GRF INTERPRETATION: 20-39 YRS: >60 mL/min Normal 40-49 YRS: >58 mL/min Normal 50-59 YRS: >51 mL/min Normal 60-69 YRS: >45 mL/min Normal 70-79 YRS: >39 mL/min Normal 80 and above >32 mL/min Normal CHRONIC KIDNEY DISEASE STAGING PER NKF: MALE GFR INTERPRETATION: 20-49 YRS: >60 mL/min Normal 50-59 YRS: >56 mL/min Normal 60-69 YRS: >49 mL/min Normal 70-79 YRS: >42 mL/min Normal 80 and above >35 mL/min Normal FEMALE GRF INTERPRETATION: 20-39 YRS: >60 mL/min Normal 40-49 YRS: >58 mL/min Normal 50-59 YRS: >51 mL/min Normal 60-69 YRS: >45 mL/min Normal 70-79 YRS: >39 mL/min Normal 80 and above >32 mL/min Normal Globulin 1.7 Calc [facility] ([facility] CHRONIC KIDNEY DISEASE STAGING PER NKF: MALE GFR INTERPRETATION: 20-49 YRS: >60 mL/min Normal 50-59 YRS: >56 mL/min Normal 60-69 YRS: >49 mL/min Normal 70-79 YRS: >42 mL/min Normal 80 and above >35 mL/min Normal FEMALE GRF INTERPRETATION: 20-39 YRS: >60 mL/min Normal 40-49 YRS: >58 mL/min Normal 50-59 YRS: >51 mL/min Normal 60-69 YRS: >45 mL/min Normal 70-79 YRS: >39 mL/min Normal 80 and above >32 mL/min Normal CHRONIC KIDNEY DISEASE STAGING PER NKF: MALE GFR INTERPRETATION: 20-49 YRS: >60 mL/min Normal 50-59 YRS: >56 mL/min Normal 60-69 YRS: >49 mL/min Normal 70-79 YRS: >42 mL/min Normal 80 and above >35 mL/min Normal FEMALE GRF INTERPRETATION: 20-39 YRS: >60 mL/min Normal 40-49 YRS: >58 mL/min Normal 50-59 YRS: >51 mL/min Normal 60-69 YRS: >45 mL/min Normal 70-79 YRS: >39 mL/min Normal 80 and above >32 mL/min Normal Ast (Sgot) 13 U/L 0-40 [facility] CHRONIC KIDNEY DISEASE STAGING PER NKF: MALE GFR INTERPRETATION: 20-49 YRS: >60 mL/min Normal 50-59 YRS: >56 mL/min Normal 60-69 YRS: >49 mL/min Normal 70-79 YRS: >42 mL/min Normal 80 and above >35 mL/min Normal FEMALE GRF INTERPRETATION: 20-39 YRS: >60 mL/min Normal 40-49 YRS: >58 mL/min Normal 50-59 YRS: >51 mL/min Normal 60-69 YRS: >45 mL/min Normal 70-79 YRS: >39 mL/min Normal 80 and above >32 mL/min Normal CHRONIC KIDNEY DISEASE STAGING PER NKF: MALE GFR INTERPRETATION: 20-49 YRS: >60 mL/min Normal 50-59 YRS: >56 mL/min Normal 60-69 YRS: >49 mL/min Normal 70-79 YRS: >42 mL/min Normal 80 and above >35 mL/min Normal FEMALE GRF INTERPRETATION: 20-39 YRS: >60 mL/min Normal 40-49 YRS: >58 mL/min Normal 50-59 YRS: >51 mL/min Normal 60-69 YRS: >45 mL/min Normal 70-79 YRS: >39 mL/min Normal 80 and above >32 mL/min Normal Alt (SGPT) 7 U/L 0-41 [facility] CHRONIC KIDNEY DISEASE STAGING PER NKF: MALE GFR INTERPRETATION: 20-49 YRS: >60 mL/min Normal 50-59 YRS: >56 mL/min Normal 60-69 YRS: >49 mL/min Normal 70-79 YRS: >42 mL/min Normal 80 and above >35 mL/min Normal FEMALE GRF INTERPRETATION: 20-39 YRS: >60 mL/min Normal 40-49 YRS: >58 mL/min Normal 50-59 YRS: >51 mL/min Normal 60-69 YRS: >45 mL/min Normal 70-79 YRS: >39 mL/min Normal 80 and above >32 mL/min Normal CHRONIC KIDNEY DISEASE STAGING PER NKF: MALE GFR INTERPRETATION: 20-49 YRS: >60 mL/min Normal 50-59 YRS: >56 mL/min Normal 60-69 YRS: >49 mL/min Normal 70-79 YRS: >42 mL/min Normal 80 and above >35 mL/min Normal FEMALE GRF INTERPRETATION: 20-39 YRS: >60 mL/min Normal 40-49 YRS: >58 mL/min Normal 50-59 YRS: >51 mL/min Normal 60-69 YRS: >45 mL/min Normal 70-79 YRS: >39 mL/min Normal 80 and above >32 mL/min Normal Alp 36.9 U/L 40-129 Below low normal [facility] ( [facility] CHRONIC KIDNEY DISEASE STAGING PER NKF: MALE GFR INTERPRETATION: 20-49 YRS: >60 mL/min Normal 50-59 YRS: >56 mL/min Normal 60-69 YRS: >49 mL/min Normal 70-79 YRS: >42 mL/min Normal 80 and above >35 mL/min Normal FEMALE GRF INTERPRETATION: 20-39 YRS: >60 mL/min Normal 40-49 YRS: >58 mL/min Normal 50-59 YRS: >51 mL/min Normal 60-69 YRS: >45 mL/min Normal 70-79 YRS: >39 mL/min Normal 80 and above >32 mL/min Normal CHRONIC KIDNEY DISEASE STAGING PER NKF: MALE GFR INTERPRETATION: 20-49 YRS: >60 mL/min Normal 50-59 YRS: >56 mL/min Normal 60-69 YRS: >49 mL/min Normal 70-79 YRS: >42 mL/min Normal 80 and above >35 mL/min Normal FEMALE GRF INTERPRETATION: 20-39 YRS: >60 mL/min Normal 40-49 YRS: >58 mL/min Normal 50-59 YRS: >51 mL/min Normal 60-69 YRS: >45 mL/min Normal 70-79 YRS: >39 mL/min Normal 80 and above >32 mL/min Normal Tbili 0.44 mg/dL 0.0-1.2 [facility] ([facility] CHRONIC KIDNEY DISEASE STAGING PER NKF: MALE GFR INTERPRETATION: 20-49 YRS: >60 mL/min Normal 50-59 YRS: >56 mL/min Normal 60-69 YRS: >49 mL/min Normal 70-79 YRS: >42 mL/min Normal 80 and above >35 mL/min Normal FEMALE GRF INTERPRETATION: 20-39 YRS: >60 mL/min Normal 40-49 YRS: >58 mL/min Normal 50-59 YRS: >51 mL/min Normal 60-69 YRS: >45 mL/min Normal 70-79 YRS: >39 mL/min Normal 80 and above >32 mL/min Normal CHRONIC KIDNEY DISEASE STAGING PER NKF: MALE GFR INTERPRETATION: 20-49 YRS: >60 mL/min Normal 50-59 YRS: >56 mL/min Normal 60-69 YRS: >49 mL/min Normal 70-79 YRS: >42 mL/min Normal 80 and above >35 mL/min Normal FEMALE GRF INTERPRETATION: 20-39 YRS: >60 mL/min Normal 40-49 YRS: >58 mL/min Normal 50-59 YRS: >51 mL/min Normal 60-69 YRS: >45 mL/min Normal 70-79 YRS: >39 mL/min Normal 80 and above >32 mL/min Normal Osmolality-Calculated 291.8 Calc [facility] ([facility] CHRONIC KIDNEY DISEASE STAGING PER NKF: MALE GFR INTERPRETATION: 20-49 YRS: >60 mL/min Normal 50-59 YRS: >56 mL/min Normal 60-69 YRS: >49 mL/min Normal 70-79 YRS: >42 mL/min Normal 80 and above >35 mL/min Normal FEMALE GRF INTERPRETATION: 20-39 YRS: >60 mL/min Normal 40-49 YRS: >58 mL/min Normal 50-59 YRS: >51 mL/min Normal 60-69 YRS: >45 mL/min Normal 70-79 YRS: >39 mL/min Normal 80 and above >32 mL/min Normal CHRONIC KIDNEY DISEASE STAGING PER NKF: MALE GFR INTERPRETATION: 20-49 YRS: >60 mL/min Normal 50-59 YRS: >56 mL/min Normal 60-69 YRS: >49 mL/min Normal 70-79 YRS: >42 mL/min Normal 80 and above >35 mL/min Normal FEMALE GRF INTERPRETATION: 20-39 YRS: >60 mL/min Normal 40-49 YRS: >58 mL/min Normal 50-59 YRS: >51 mL/min Normal 60-69 YRS: >45 mL/min Normal 70-79 YRS: >39 mL/min Normal 80 and above >32 mL/min Normal Anion Gap 16 mmol/L [facility] CHRONIC KIDNEY DISEASE STAGING PER NKF: MALE GFR INTERPRETATION: 20-49 YRS: >60 mL/min Normal 50-59 YRS: >56 mL/min Normal 60-69 YRS: >49 mL/min Normal 70-79 YRS: >42 mL/min Normal 80 and above >35 mL/min Normal FEMALE GRF INTERPRETATION: 20-39 YRS: >60 mL/min Normal 40-49 YRS: >58 mL/min Normal 50-59 YRS: >51 mL/min Normal 60-69 YRS: >45 mL/min Normal 70-79 YRS: >39 mL/min Normal 80 and above >32 mL/min Normal CHRONIC KIDNEY DISEASE STAGING PER NKF: MALE GFR INTERPRETATION: 20-49 YRS: >60 mL/min Normal 50-59 YRS: >56 mL/min Normal 60-69 YRS: >49 mL/min Normal 70-79 YRS: >42 mL/min Normal 80 and above >35 mL/min Normal FEMALE GRF INTERPRETATION: 20-39 YRS: >60 mL/min Normal 40-49 YRS: >58 mL/min Normal 50-59 YRS: >51 mL/min Normal 60-69 YRS: >45 mL/min Normal 70-79 YRS: >39 mL/min Normal 80 and above >32 mL/min Normal eGFR Non-Afr. [place]ar[place] 42 # [facility] ([facility] CHRONIC KIDNEY DISEASE STAGING PER NKF: MALE GFR INTERPRETATION: 20-49 YRS: >60 mL/min Normal 50-59 YRS: >56 mL/min Normal 60-69 YRS: >49 mL/min Normal 70-79 YRS: >42 mL/min Normal 80 and above >35 mL/min Normal FEMALE GRF INTERPRETATION: 20-39 YRS: >60 mL/min Normal 40-49 YRS: >58 mL/min Normal 50-59 YRS: >51 mL/min Normal 60-69 YRS: >45 mL/min Normal 70-79 YRS: >39 mL/min Normal 80 and above >32 mL/min Normal CHRONIC KIDNEY DISEASE STAGING PER NKF: MALE GFR INTERPRETATION: 20-49 YRS: >60 mL/min Normal 50-59 YRS: >56 mL/min Normal 60-69 YRS: >49 mL/min Normal 70-79 YRS: >42 mL/min Normal 80 and above >35 mL/min Normal FEMALE GRF INTERPRETATION: 20-39 YRS: >60 mL/min Normal 40-49 YRS: >58 mL/min Normal 50-59 YRS: >51 mL/min Normal 60-69 YRS: >45 mL/min Normal 70-79 YRS: >39 mL/min Normal 80 and above >32 mL/min Normal eGFR 49 # [facility] ( [facility] CHRONIC KIDNEY DISEASE STAGING PER NKF: MALE GFR INTERPRETATION: 20-49 YRS: >60 mL/min Normal 50-59 YRS: >56 mL/min Normal 60-69 YRS: >49 mL/min Normal 70-79 YRS: >42 mL/min Normal 80 and above >35 mL/min Normal FEMALE GRF INTERPRETATION: 20-39 YRS: >60 mL/min Normal 40-49 YRS: >58 mL/min Normal 50-59 YRS: >51 mL/min Normal 60-69 YRS: >45 mL/min Normal 70-79 YRS: >39 mL/min Normal 80 and above >32 mL/min Normal CHRONIC KIDNEY DISEASE STAGING PER NKF: MALE GFR INTERPRETATION: 20-49 YRS: >60 mL/min Normal 50-59 YRS: >56 mL/min Normal 60-69 YRS: >49 mL/min Normal 70-79 YRS: >42 mL/min Normal 80 and above >35 mL/min Normal FEMALE GRF INTERPRETATION: 20-39 YRS: >60 mL/min Normal 40-49 YRS: >58 mL/min Normal 50-59 YRS: >51 mL/min Normal 60-69 YRS: >45 mL/min Normal 70-79 YRS: >39 mL/min Normal 80 and above >32 mL/min Normal ID Date Data Source [id number] 08/16/2019 02:44:00 PM EDT DAWNA ([facility] Name Value Range Interpretation Code Description Data Pennie rce(s) Supporting Document(s) Leukocytes [#/volume] in Blood by Automated count 12.4 x10E3/uL 3.4-10.8 Above high normal [facility] ([facility] ) Hematocrit [Volume Fraction] of Blood by Automated count 33.9 % 37.5-51.0 Below low normal [facility] ([facility] ) Erythrocytes [#/volume] in Blood by Automated count 3.88 x10E6/u L 4.14-5.80 Below low normal [facility] ([facility] ) Hemoglobin [Mass/volume] in Blood 11.4 g/dL 13.0-17.7 Below low nor mal [facility] ([facility] Erythrocyte mean corpuscular volume [Entitic volume] by Auto mated count 87 fL 79-97 [facility] ([facility] Erythrocyte mean corpuscular hemoglobin concentration [Mass/volume] by Automated count 33.6 g/dL 31.5-35.7 [facility] Erythrocyte mean corpuscular hemoglobin [Entitic mass] by Automated count 29.4 pg 26.6-33.0 [facility] Lymphs 6 % [facility] Platelets [#/volume] in Blood by Automated count 189 x10E3/uL 150-450 [facility] ([facility] Erythrocyte distribution width [Ratio] by Automated count 17.7 % 11.6-15.4 Above high normal [facility] ([facility] ) Neutrophils 79 % [facility] ([facility] Monocytes/100 leukocytes in Blood by Automated count 11 % [facility] ([facility] Basophils/100 leukocytes in Blood by Automated count 1 % [facility] ([facility] Eosinophils/100 leukocytes in Blood by Automated count 1 % [facility] ([facility] Immature cells [#/volume] in Blood Laboratory test result [facility] ([facility] Neutrophils [#/volume] in Blood by Automated count 9.9 x10E3/uL 1.4-7.0 Above high normal [facility] ([facility] ) Lymphocytes [#/volume] in Blood 0.7 x10E3/uL 0.7-3.1 [facility] ([facility] Eosinophils [#/volume] in Blood by Automated count 0.1 x10E3/uL 0.0-0 .4 [facility] ([facility] Basophils [#/volume] in Blood by Automated count 0.1 x10E3/uL 0.0-0.2 [facility] ([facility] Monocytes [#/volume] in Blood 1.4 x10E3/uL 0.1-0.9 Above high norm al [facility] ([facility] Immature granulocytes/100 leukocytes in Blood by Automated count 2 % [facility] ([facility] Immature granulocytes [#/volume] in Blood by Automated count 0.3 x10E3/uL 0.0-0.1 Above high normal [facility] ([facility] (An elevated percentage of Immature Gran ulocytes has not been found to be clinically significant as a sole clinical predictor of disease. Does NOT include bands or blast cells. associated physiological leukocytosis may also show increased immature granulocytes without clinical significance.) Nucleated erythrocytes/100 leukocytes [Ratio] in Blood by Automated count Laboratory test result [facility] ([facility] Morphology [Interpretation] in Blood Narrative Laboratory test result DAWNA ([facility] ID Date Data Source [id number] 08/16/2019 02:44:00 PM EDT [facility] ([facility] Name Value Range Interpretation Code Description Data Pennie rce(s) Supporting Document(s) Glu 143 mg/dL 70-110 Above high normal [facility] ([facility] CHRONIC KIDNEY DISEASE STAGING PER NKF: MALE GFR INTERPRETATION: 20-49 YRS: >60 mL/min Normal 50-59 YRS: >56 mL/min Normal 60-69 YRS: >49 mL/min Normal 70-79 YRS: >42 mL/min Normal 80 and above >35 mL/min Normal FEMALE GRF INTERPRETATION: 20-39 YRS: >60 mL/min Normal 40-49 YRS: >58 mL/min Normal 50-59 YRS: >51 mL/min Normal 60-69 YRS: >45 mL/min Normal 70-79 YRS: >39 mL/min Normal 80 and above >32 mL/min Normal BUN/Creatinine Ratio 13.8 CALC MED[facility] ([facility] CHRONIC KIDNEY DISEASE STAGING PER NKF: MALE GFR INTERPRETATION: 20-49 YRS: >60 mL/min Normal 50-59 YRS: >56 mL/min Normal 60-69 YRS: >49 mL/min Normal 70-79 YRS: >42 mL/min Normal 80 and above >35 mL/min Normal FEMALE GRF INTERPRETATION: 20-39 YRS: >60 mL/min Normal 40-49 YRS: >58 mL/min Normal 50-59 YRS: >51 mL/min Normal 60-69 YRS: >45 mL/min Normal 70-79 YRS: >39 mL/min Normal 80 and above >32 mL/min Normal Creat 1.8 mg/dL 0.7-1.2 Above high normal [facility] ([facility] CHRONIC KIDNEY DISEASE STAGING PER NKF: MALE GFR INTERPRETATION: 20-49 YRS: >60 mL/min Normal 50-59 YRS: >56 mL/min Normal 60-69 YRS: >49 mL/min Normal 70-79 YRS: >42 mL/min Normal 80 and above >35 mL/min Normal FEMALE GRF INTERPRETATION: 20-39 YRS: >60 mL/min Normal 40-49 YRS: >58 mL/min Normal 50-59 YRS: >51 mL/min Normal 60-69 YRS: >45 mL/min Normal 70-79 YRS: >39 mL/min Normal 80 and above >32 mL/min Normal BUN 25 mg/dL 8-23 Above high normal [facility] ([facility] CHRONIC KIDNEY DISEASE STAGING PER NKF: MALE GFR INTERPRETATION: 20-49 YRS: >60 mL/min Normal 50-59 YRS: >56 mL/min Normal 60-69 YRS: >49 mL/min Normal 70-79 YRS: >42 mL/min Normal 80 and above >35 mL/min Normal FEMALE GRF INTERPRETATION: 20-39 YRS: >60 mL/min Normal 40-49 YRS: >58 mL/min Normal 50-59 YRS: >51 mL/min Normal 60-69 YRS: >45 mL/min Normal 70-79 YRS: >39 mL/min Normal 80 and above >32 mL/min Normal K 3.7 mmol/L 3.5-5.1 [facility] ([facility] CHRONIC KIDNEY DISEASE STAGING PER NKF: MALE GFR INTERPRETATION: 20-49 YRS: >60 mL/min Normal 50-59 YRS: >56 mL/min Normal 60-69 YRS: >49 mL/min Normal 70-79 YRS: >42 mL/min Normal 80 and above >35 mL/min Normal FEMALE GRF INTERPRETATION: 20-39 YRS: >60 mL/min Normal 40-49 YRS: >58 mL/min Normal 50-59 YRS: >51 mL/min Normal 60-69 YRS: >45 mL/min Normal 70-79 YRS: >39 mL/min Normal 80 and above >32 mL/min Normal CL 96.7 mmol/L 98.0-107.0 Below low normal [facility] ([facility] CHRONIC KIDNEY DISEASE STAGING PER NKF: MALE GFR INTERPRETATION: 20-49 YRS: >60 mL/min Normal 50-59 YRS: >56 mL/min Normal 60-69 YRS: >49 mL/min Normal 70-79 YRS: >42 mL/min Normal 80 and above >35 mL/min Normal FEMALE GRF INTERPRETATION: 20-39 YRS: >60 mL/min Normal 40-49 YRS: >58 mL/min Normal 50-59 YRS: >51 mL/min Normal 60-69 YRS: >45 mL/min Normal 70-79 YRS: >39 mL/min Normal 80 and above >32 mL/min Normal Na 138 mmol/L 136-145 [facility] ([facility] CHRONIC KIDNEY DISEASE STAGING PER NKF: MALE GFR INTERPRETATION: 20-49 YRS: >60 mL/min Normal 50-59 YRS: >56 mL/min Normal 60-69 YRS: >49 mL/min Normal 70-79 YRS: >42 mL/min Normal 80 and above >35 mL/min Normal FEMALE GRF INTERPRETATION: 20-39 YRS: >60 mL/min Normal 40-49 YRS: >58 mL/min Normal 50-59 YRS: >51 mL/min Normal 60-69 YRS: >45 mL/min Normal 70-79 YRS: >39 mL/min Normal 80 and above >32 mL/min Normal CA 9.1 mg/dL 8.6-10.2 [facility] ([facility] CHRONIC KIDNEY DISEASE STAGING PER NKF: MALE GFR INTERPRETATION: 20-49 YRS: >60 mL/min Normal 50-59 YRS: >56 mL/min Normal 60-69 YRS: >49 mL/min Normal 70-79 YRS: >42 mL/min Normal 80 and above >35 mL/min Normal FEMALE GRF INTERPRETATION: 20-39 YRS: >60 mL/min Normal 40-49 YRS: >58 mL/min Normal 50-59 YRS: >51 mL/min Normal 60-69 YRS: >45 mL/min Normal 70-79 YRS: >39 mL/min Normal 80 and above >32 mL/min Normal TP 5.6 g/dL 6.6-8.7 Below low normal [facility] ( [facility] CHRONIC KIDNEY DISEASE STAGING PER NKF: MALE GFR INTERPRETATION: 20-49 YRS: >60 mL/min Normal 50-59 YRS: >56 mL/min Normal 60-69 YRS: >49 mL/min Normal 70-79 YRS: >42 mL/min Normal 80 and above >35 mL/min Normal FEMALE GRF INTERPRETATION: 20-39 YRS: >60 mL/min Normal 40-49 YRS: >58 mL/min Normal 50-59 YRS: >51 mL/min Normal 60-69 YRS: >45 mL/min Normal 70-79 YRS: >39 mL/min Normal 80 and above >32 mL/min Normal Co2 30.0 mmol/L 22.0-29.0 Above high normal [facility] ([facility] CHRONIC KIDNEY DISEASE STAGING PER NKF: MALE GFR INTERPRETATION: 20-49 YRS: >60 mL/min Normal 50-59 YRS: >56 mL/min Normal 60-69 YRS: >49 mL/min Normal 70-79 YRS: >42 mL/min Normal 80 and above >35 mL/min Normal FEMALE GRF INTERPRETATION: 20-39 YRS: >60 mL/min Normal 40-49 YRS: >58 mL/min Normal 50-59 YRS: >51 mL/min Normal 60-69 YRS: >45 mL/min Normal 70-79 YRS: >39 mL/min Normal 80 and above >32 mL/min Normal Alb 3.6 g/dL 3.5-5.2 [facility] ([facility] CHRONIC KIDNEY DISEASE STAGING PER NKF: MALE GFR INTERPRETATION: 20-49 YRS: >60 mL/min Normal 50-59 YRS: >56 mL/min Normal 60-69 YRS: >49 mL/min Normal 70-79 YRS: >42 mL/min Normal 80 and above >35 mL/min Normal FEMALE GRF INTERPRETATION: 20-39 YRS: >60 mL/min Normal 40-49 YRS: >58 mL/min Normal 50-59 YRS: >51 mL/min Normal 60-69 YRS: >45 mL/min Normal 70-79 YRS: >39 mL/min Normal 80 and above >32 mL/min Normal A/G Ratio 1.8 CALC [facility] ([facility] CHRONIC KIDNEY DISEASE STAGING PER NKF: MALE GFR INTERPRETATION: 20-49 YRS: >60 mL/min Normal 50-59 YRS: >56 mL/min Normal 60-69 YRS: >49 mL/min Normal 70-79 YRS: >42 mL/min Normal 80 and above >35 mL/min Normal FEMALE GRF INTERPRETATION: 20-39 YRS: >60 mL/min Normal 40-49 YRS: >58 mL/min Normal 50-59 YRS: >51 mL/min Normal 60-69 YRS: >45 mL/min Normal 70-79 YRS: >39 mL/min Normal 80 and above >32 mL/min Normal Globulin 2.0 CALC MEDZAFAR ([facility] CHRONIC KIDNEY DISEASE STAGING PER NKF: MALE GFR INTERPRETATION: 20-49 YRS: >60 mL/min Normal 50-59 YRS: >56 mL/min Normal 60-69 YRS: >49 mL/min Normal 70-79 YRS: >42 mL/min Normal 80 and above >35 mL/min Normal FEMALE GRF INTERPRETATION: 20-39 YRS: >60 mL/min Normal 40-49 YRS: >58 mL/min Normal 50-59 YRS: >51 mL/min Normal 60-69 YRS: >45 mL/min Normal 70-79 YRS: >39 mL/min Normal 80 and above >32 mL/min Normal Alt (SGPT) 7 U/L 0-41 [facility] ([facility] CHRONIC KIDNEY DISEASE STAGING PER NKF: MALE GFR INTERPRETATION: 20-49 YRS: >60 mL/min Normal 50-59 YRS: >56 mL/min Normal 60-69 YRS: >49 mL/min Normal 70-79 YRS: >42 mL/min Normal 80 and above >35 mL/min Normal FEMALE GRF INTERPRETATION: 20-39 YRS: >60 mL/min Normal 40-49 YRS: >58 mL/min Normal 50-59 YRS: >51 mL/min Normal 60-69 YRS: >45 mL/min Normal 70-79 YRS: >39 mL/min Normal 80 and above >32 mL/min Normal Alp 44.9 U/L 40-129 [facility] CHRONIC KIDNEY DISEASE STAGING PER NKF: MALE GFR INTERPRETATION: 20-49 YRS: >60 mL/min Normal 50-59 YRS: >56 mL/min Normal 60-69 YRS: >49 mL/min Normal 70-79 YRS: >42 mL/min Normal 80 and above >35 mL/min Normal FEMALE GRF INTERPRETATION: 20-39 YRS: >60 mL/min Normal 40-49 YRS: >58 mL/min Normal 50-59 YRS: >51 mL/min Normal 60-69 YRS: >45 mL/min Normal 70-79 YRS: >39 mL/min Normal 80 and above >32 mL/min Normal Tbili 0.60 mg/dL 0.0-1.2 [facility] ([facility] CHRONIC KIDNEY DISEASE STAGING PER NKF: MALE GFR INTERPRETATION: 20-49 YRS: >60 mL/min Normal 50-59 YRS: >56 mL/min Normal 60-69 YRS: >49 mL/min Normal 70-79 YRS: >42 mL/min Normal 80 and above >35 mL/min Normal FEMALE GRF INTERPRETATION: 20-39 YRS: >60 mL/min Normal 40-49 YRS: >58 mL/min Normal 50-59 YRS: >51 mL/min Normal 60-69 YRS: >45 mL/min Normal 70-79 YRS: >39 mL/min Normal 80 and above >32 mL/min Normal Osmolality-Calculated 283.0 CALC MED ENT ([facility] CHRONIC KIDNEY DISEASE STAGING PER NKF: MALE GFR INTERPRETATION: 20-49 YRS: >60 mL/min Normal 50-59 YRS: >56 mL/min Normal 60-69 YRS: >49 mL/min Normal 70-79 YRS: >42 mL/min Normal 80 and above >35 mL/min Normal FEMALE GRF INTERPRETATION: 20-39 YRS: >60 mL/min Normal 40-49 YRS: >58 mL/min Normal 50-59 YRS: >51 mL/min Normal 60-69 YRS: >45 mL/min Normal 70-79 YRS: >39 mL/min Normal 80 and above >32 mL/min Normal Ast (Sgot) 16 U/L 0-40 [facility] ([facility] CHRONIC KIDNEY DISEASE STAGING PER NKF: MALE GFR INTERPRETATION: 20-49 YRS: >60 mL/min Normal 50-59 YRS: >56 mL/min Normal 60-69 YRS: >49 mL/min Normal 70-79 YRS: >42 mL/min Normal 80 and above >35 mL/min Normal FEMALE GRF INTERPRETATION: 20-39 YRS: >60 mL/min Normal 40-49 YRS: >58 mL/min Normal 50-59 YRS: >51 mL/min Normal 60-69 YRS: >45 mL/min Normal 70-79 YRS: >39 mL/min Normal 80 and above >32 mL/min Normal Anion Gap 15 mmol/L [facility] ([facility] CHRONIC KIDNEY DISEASE STAGING PER NKF: MALE GFR INTERPRETATION: 20-49 YRS: >60 mL/min Normal 50-59 YRS: >56 mL/min Normal 60-69 YRS: >49 mL/min Normal 70-79 YRS: >42 mL/min Normal 80 and above >35 mL/min Normal FEMALE GRF INTERPRETATION: 20-39 YRS: >60 mL/min Normal 40-49 YRS: >58 mL/min Normal 50-59 YRS: >51 mL/min Normal 60-69 YRS: >45 mL/min Normal 70-79 YRS: >39 mL/min Normal 80 and above >32 mL/min Normal eGFR Non-Afr. Nicaraguan 34 # [facility] ([facility] CHRONIC KIDNEY DISEASE STAGING PER NKF: MALE GFR INTERPRETATION: 20-49 YRS: >60 mL/min Normal 50-59 YRS: >56 mL/min Normal 60-69 YRS: >49 mL/min Normal 70-79 YRS: >42 mL/min Normal 80 and above >35 mL/min Normal FEMALE GRF INTERPRETATION: 20-39 YRS: >60 mL/min Normal 40-49 YRS: >58 mL/min Normal 50-59 YRS: >51 mL/min Normal 60-69 YRS: >45 mL/min Normal 70-79 YRS: >39 mL/min Normal 80 and above >32 mL/min Normal eGFR 39 # [facility] ( [facility] CHRONIC KIDNEY DISEASE STAGING PER NKF: MALE GFR INTERPRETATION: 20-49 YRS: >60 mL/min Normal 50-59 YRS: >56 mL/min Normal 60-69 YRS: >49 mL/min Normal 70-79 YRS: >42 mL/min Normal 80 and above >35 mL/min Normal FEMALE GRF INTERPRETATION: 20-39 YRS: >60 mL/min Normal 40-49 YRS: >58 mL/min Normal 50-59 YRS: >51 mL/min Normal 60-69 YRS: >45 mL/min Normal 70-79 YRS: >39 mL/min Normal 80 and above >32 mL/min Normal ID Date Data Source [id number] 08/08/2019 03:19:00 PM EDT [facility] Name Value Range Interpretation Code Description Data Pennie rce(s) Supporting Document(s) Glucose 144 70-100 [facility] ([facility]) Sodium 144 136-145 [facility] ([facility]) Blood Urea Nitrogen 17 7-18 [facility] (Ca [facility]ology [facility]) Creatinine 1.17 0.70-1.30 [facility] ([facility]) Potassium 4.2 3.5-5.1 [facility] ([facility]) Carbon Dioxide 36 21-32 [facility] ([facility]iol [facility]gy [facility]) Chloride 106 98-107 [facility] ([facility]) Calcium 8.3 8.8-10.2 [facility] ([facility]) Glomerular filtration rate/1.73 sq M.pre dicted [Volume Rate/Area] in Serum or Plasma by Creatinine-based formula (MDRD) Laboratory test result [facility] ([facility]) ID Date Data Source [id number] 08/08/2019 03:19:00 PM EDT [facility] ([facility] Name Value Range Interpretation Code Description Data Pennie rce(s) Supporting Document(s) White Blood Count 9.6 4.0-10.0 [facility] ([facility]) Hemoglobin 11.8 [facility] ([facility]) Platelets 226 150-450 [facility] Red Blood Count 3.96 4.30-6.10 [facility] (Cardio logy [facility]) Hematocrit 37.6 [facility] ([facility]) ID Date Data Source [id number] 07/16/2019 06:39:00 PM EDT [facility] Name Value Range Interpretation Code Description Data Pennie rce(s) Supporting Document(s) Ferritin [Mass/volume] in Serum or Plasma 235 ng/mL 26-388 Normal (applies to non-numeric results) [facility] ([facility] Lactate dehydrogenase [Enzymatic activity/volume] in Serum o r Plasma 172 U/L 87-241 Normal (applies to non-numeric results) [facility] ([facility] C reactive protein [Mass/volume] in Serum or Plasma by High sensitivity method 14.70 mg/dL 0.00-0.30 Above high normal [facility] ID Date Data Source [id number] 07/16/2019 06:39:00 PM EDT [facility] Name Value Range Interpretation Code Description Data Pennie rce(s) Supporting Document(s) MB/CK Relative Index 3.57 Normal (applies to non-num romeo results) [facility] ([facility] <content>DIAGNOSIS CRITERIA</content>
<content>MMB ng/ml Relative Index (RI)</content>
<content>NON-AMI < or = 5 N/A</content>
<content>CHANEY ZONE > 5 < or = 4</content>
<content>AMI > 5 > 4</content>
<content></content> CK-MB Value Mass Laboratory test result Normal ( applies to non-numeric results) [facility] ([facility] CPK Creatine Phosphokinase 28 U/L 39-308 Below low normal [facility] ([facility] Troponin I Laboratory test result Normal (applies to non-n umeric results) [facility] ([facility] <content>Troponin I Reference Interval f or Siemens [place]ay LOCI:</content>
<content></content>
<content>99th Percentile= 0.00-0.045 ng/ml</content>
<content></content>
<content>Risk Stratification:</content>
<content><= 0.10 ng/ml Decreased Risk for Adverse Clinical</content>
<content>Events.</content>
<content>0.10-1.50 ng/ml Increased Risk for Adverse Clinical</content>
<content>Events. Evaluation of additional</content>
<content>criterion and/or repeat testing in 2-6</content>
<content>hours is suggested to rule out myocardial</content>
<content>damage.</content>
<content>>= 1.50 ng/ml Indicative of Myocardial Injury.</content>
<content></content> ID Date Data Source [id number] 07/16/2019 06:39:00 PM EDT [facility] ([facility] Name Value Range Interpretation Code Description Data Pennie rce(s) Supporting Document(s) Glucose, Fasting 120 mg/dL 70-100 Above high normal M EDENT ([facility] Creatinine For GFR 1.76 mg/dL 0.70-1.30 Above high normal [facility] ([facility] Blood Urea Nitrogen 24 mg/dL 7-18 Above high [facility] Potassium Serum 4.0 meq/L 3.5-5.1 Normal (applies to non-numeric results) [facility] ([facility] Sodium Level 141 meq/L 136-145 Normal (applies to non-numeric res ults) [facility] ([facility] Glomerular Filtration Rate 39.5 Normal (applies to n on-numeric results) [facility] ([facility] <content>Units are mL/min/1.73 m2</content>
<content></content>
<content>Chronic Kidney Disease Staging per NKF:</content>
<content></content>
<content>Stage I & II GFR >=60 Normal to Mildly Decreased</content>
<content>Stage III GFR 30- 59 Moderately Decreased</content>
<content>Stage IV GFR 15-29 Severely Decreased</content>
<content>Stage V GFR <15 Very Little GFR Left</content>
<content>ESRD GFR <15 on [employer]IATE</content>
<content></content> Carbon Dioxide Level 35 meq/L 21-32 Above high normal [facility] ([facility] Chloride Level 102 meq/L 98-107 Normal (applies to non-numeric r esults) [facility] ([facility] Anion Gap 4 meq/L 8-16 Below low normal [facility] ( [facility] Alt/SGPT 16 U/L 12-78 Normal (applies to non-numeric resul ts) [facility] ([facility] Ast/Sgot 22 U/L 7-37 Normal (applies to non-numeric resul ts) [facility] ([facility] Calcium Level 8.6 mg/dL 8.8-10.2 Below low normal MEDEN T ([facility] Albumin 2.9 GM/DL 3.2-5.2 Below low normal [facility] ( [facility] Alkaline Phosphatase 38 U/L 45-117 Below low normal [facility] ([facility] Total Protein 5.7 GM/DL 6.4-8.2 Below low normal MEDEN T ([facility] Bilirubin,Total 0.5 mg/dL 0.2-1.0 Normal (applies to non-numeric results) [facility] ([facility] Albumin/Globulin Ratio 1.04 1.00-1.93 Normal (applies to non-numeric results) [facility] ([facility] ID Date Data Source [id number] 07/16/2019 06:39:00 PM EDT [facility] Name Value Range Interpretation Code Description Data Pennie rce(s) Supporting Document(s) Fibrin D-dimer FEU [Mass/volume] in Platelet poor plasma 325.56 ng/mL Normal (applies to non-numeric results) [facility] Lactate [Mass/volume] in Serum or Plasma 0.8 mmol/L 0.4-2.0 Normal (applies to non-numeric results) [facility] ([facility] Y/N query for Sepsis Lactate Rule: Y ID Date Data Source [id number] 07/16/2019 06:39:00 PM EDT [facility] ([facility] Name Value Range Interpretation Code Description Data Pennie rce(s) Supporting Document(s) Prothrombin Time 16.4 s 11.8-14.0 Above high normal M EDENT ([facility] Inr 1.35 Normal (applies to non-numeric resul ts) [facility] THERAPUTIC HUMAN INR VALUES INDICATIONS NORMAL RANGES PROPHYLAXIS/TREATMENT OF: VENOUS THROMBOSIS 2.0-3.0 PULMONARY EMBOLISM 2.0-3.0 PREVENTION OF SYSTEMIC EMBOLISM FROM: TISSUE HEART VALVES 2.0-3.0 ACUTE MYOCARDIAL INFARCTION 2.0-3.0 VALVULAR HEART DISEASE 2.0-3.0 ATRIAL FIBRILLATION 2.0-3.0 MECHANICAL VALVES(HIGH RISK) 2.5-3.5 RECURRENT MYOCARDIAL INFARCTION 2.5-3.5 Partial Thromboplastin Time 38.3 s 25.0-38.4 Norm al (applies to non-numeric results) [facility] ([facility] ID Date Data Source [id number] 07/16/2019 06:39:00 PM EDT [facility] ([facility] Name Value Range Interpretation Code Description Data Pennie rce(s) Supporting Document(s) Red Blood Count 3.56 10 4.30-6.10 Below low normal MED [facility] ([facility] White Blood Count 8.1 10 4.0-10.0 Normal (applies to non-numeri c results) [facility] ([facility] Hematocrit 32.4 % 42.0-52.0 Below low normal [facility] ( [facility] Hemoglobin 10.5 g/dL 13.5-17.5 Below low normal [facility] ( [facility] Mean Corpuscular Volume 91.0 fl 80.0-96.0 Normal ( applies to non-numeric results) [facility] ([facility] Mean Corpuscular HGB Conc 32.4 g/dL 32.0-36.5 Normal (applies to non-numeric results) [facility] ([facility] Mean Corpuscular Hemoglobin 29.5 pg 27.0-33.0 Norm al (applies to non-numeric results) [facility] ([facility] Red Cell Distribution Width 19.5 % 11.5-14.5 Above high normal [facility] ([facility] Platelet Count, Automated 161 10 150-450 Normal (applies to non-numeric results) [facility] ([facility] ) Neutrophils % 68.2 % 36.0-66.0 Above high normal MEDE NT ([facility] Lymph % 6.0 % 24.0-44.0 Below low normal [facility] ( [facility] Baso % 0.4 % 0.0-1.0 Normal (applies to non-numeric resul ts) [facility] ([facility] Eos % 0.1 % 0.0-3.0 Normal (applies to non-numeric resul ts) [facility] ([facility] [place] % 23.4 % 0.0-5.0 Above high normal [facility] ([facility] Immature Granulocyte % 1.9 % 0-3.0 Normal (applies to non-n umeric results) [facility] ([facility] Nucleated Red Blood Cell % 0.0 % 0-0 Normal (applies to n on-numeric results) [facility] ([facility] Lymph # 0.5 10 1.5-5.0 Below low normal [facility] ( [facility] Neutrophils # 5.5 10 1.5-8.5 Normal (applies to non-numeric re sults) [facility] ([facility] Eos # 0.0 10 0.0-0.5 Normal (applies to non-numeric resul ts) [facility] ([facility] [place] # 1.9 10 0.0-0.8 Above high normal [facility] ([facility] Baso # 0.0 10 0.0-0.2 Normal (applies to non-numeric resul ts) [facility] ([facility] ID Date Data Source [id number] 07/16/2019 06:39:00 PM EDT [facility] ([facility] Name Value Range Interpretation Code Description Data Pennie rce(s) Supporting Document(s) Laboratory test finding (navigational concept) Laboratory test r esult Abnormal (applies to non-numeric results) [facility] ([facility] DISCLAIMER: Testing was performed using the [email or web address] SARS-CoV-2 test. This test was developed and its performance characteristics determined by [email or web address]. This test has not been FDA cleared or approved. This test has been authorized by FDA under an Emergency Use Authorization (EUA). This test is only authorized for the duration of time the declaration that circumstances exist justifying the authorization of the emergency use of in vitro diagnostic tests for detection of SARS-CoV-2 virus and/or diagnosis of COVID-19 infection under section 564(b)(1) of the Act, 21 U.S.C. 360bbb-3(b)(1), unless the authorization is terminated or revoked sooner. ID Date Data Source [id number] 06/02/2019 09:52:00 AM EST [facility] ([facility]) Name Value Range Interpretation Code Description Data Pennie rce(s) Supporting Document(s) Magnesium Level 1.57 [facility] ([facility]) ID Date Data Source [id number] 06/02/2019 09:52:00 AM EST [facility] ([facility]) Name Value Range Interpretation Code Description Data Pennie rce(s) Supporting Document(s) White Blood Count 11.5 5.0-10.0 [facility] ([facility]) Red Blood Count 3.78 4.70-6.10 [facility] ([facility]) Platelets 207 172-450 [facility] ([facility] Hematocrit 34.4 42.0-52.0 [facility] ([facility]) Hemoglobin 11.6 14.0-18.0 [facility] ([facility]) ID Date Data Source [id number] 06/02/2019 09:52:00 AM EST [facility] ([facility]) Name Value Range Interpretation Code Description Data Pennie rce(s) Supporting Document(s) Glucose 152 70-100 [facility] ([facility]) Blood Urea Nitrogen 24.2 7-25 [facility] ([facility]) Glomerular filtration rate/1.73 sq M.pre dicted [Volume Rate/Area] in Serum or Plasma by Creatinine-based formula (MDRD) 43 [facility] Creatinine 1.56 0.6-1.4 [facility] Chloride 99.5 98-110 [facility] [place] Potassium 3.87 3.5-5.3 [facility] [place] Sodium 139.0 136-146 [facility] [place] Phosphorus 2.99 [facility] Carbon Dioxide 33.1 22-33 [facility] ([facility]) Calcium 8.98 8.4-10.4 [facility] Albumin 4.1 3.5-4.7 [facility] ID Date Data Source [id number] 05/26/2019 01:12:00 PM EST [facility] ([facility] Name Value Range Interpretation Code Description Data Pennie rce(s) Supporting Document(s) Leukocytes [#/volume] in Blood by Automated count 9.5 x10E3/uL 3.4-10 .8 [facility] ([facility] Erythrocytes [#/volume] in Blood by Automated count 3.55 x10E6/u L 4.14-5.80 Below low normal [facility] ([facility] Hemoglobin [Mass/volume] in Blood 10.4 g/dL 13.0-17.7 Below low nor mal [facility] ([facility] Hematocrit [Volume Fraction] of Blood by Automated count 32.5 % 37.5-51.0 Below low normal [facility] ([facility] Erythrocyte mean corpuscular volume [Entitic volume] by Auto mated count 92 fL 79-97 [facility] Erythrocyte mean corpuscular hemoglobin concentration [Mass/volume] by Automated count 32.0 g/dL 31.5-35.7 [facility] ([facility] Erythrocyte distribution width [Ratio] by Automated count 18.9 % 11.6-15.4 Above high normal [facility] ([facility] Erythrocyte mean corpuscular hemoglobin [Entitic mass] by Automated count 29.3 pg 26.6-33.0 [facility] Platelets [#/volume] in Blood by Automated count 172 x10E3/uL 150-450 [facility] ([facility] Lymphs 11 % [facility] Neutrophils 79 % [facility] ([facility] Immature cells [#/volume] in Blood Laboratory test result [facility] ([facility] Basophils/100 leukocytes in Blood by Automated count 0 % [facility] ([facility] Monocytes/100 leukocytes in Blood by Automated count 5 % [facility] ([facility] Eosinophils/100 leukocytes in Blood by Automated count 0 % [facility] ([facility] Monocytes [#/volume] in Blood 0.5 x10E3/uL 0.1-0.9 [facility] ([facility] Lymphocytes [#/volume] in Blood 1.0 x10E3/uL 0.7-3.1 [facility] ([facility] Neutrophils [#/volume] in Blood by Automated count 7.4 x10E3/uL 1.4-7.0 Above high normal [facility] ([facility] ) Eosinophils [#/volume] in Blood by Automated count 0.0 x10E3/uL 0.0-0 .4 [facility] ([facility] Basophils [#/volume] in Blood by Automated count 0.0 x10E3/uL 0.0-0.2 [facility] ([facility] Immature granulocytes/100 leukocytes in Blood by Automated count 5 % [facility] ([facility] Morphology [Interpretation] in Blood Narrative Laboratory test result [facility] ([facility] Immature granulocytes [#/volume] in Blood by Automated count 0.5 x10E3/uL 0.0-0.1 Above high normal [facility] ([facility] (An elevated percentage of Immature Gran ulocytes has not been found to be clinically significant as a sole clinical predictor of disease. Does NOT include bands or blast cells. associated physiological leukocytosis may also show increased immature granulocytes without clinical significance.) Nucleated erythrocytes/100 leukocytes [Ratio] in Blood by Automated count Laboratory test result [facility] ([facility] ID Date Data Source [id number] 05/26/2019 01:12:00 PM EST [facility] ([facility] Name Value Range Interpretation Code Description Data Pennie rce(s) Supporting Document(s) Glu 161 mg/dL 70-110 Above high normal [facility] ([facility] CLASSIFICATION CHOLESTEROL FO R ADULTS CHILDREN/ADOLESCENTS* DESIRABLE: <200 MG/DL <170 MG/DL BORDER-LINE HIGH RISK: 200-239 MG/DL 170-199 MG/DL HIGH RISK: >240 MG/DL >200 MG/DL CLASS. FOR PRIMARY LDL CHOL PREVENTION: LDL CHOL-CHILD/ADOLESCENTS* DESIRABLE: <130 MG/DL <110 MG/DL BORDERLINE-HIGH RISK: 130-159 MG/DL 110-129 MG/DL HIGH RISK: >160 MG/DL >130 MG/DL *CHILDREN AND ADOLESCENTS REPRESENTS INDIVIDUALA AGED 2-19 YEARS EXCLUSIVE. CHRONIC KIDNEY DISEASE STAGING PER NKF: MALE GFR INTERPRETATION: 20-49 YRS: >60 mL/min Normal 50-59 YRS: >56 mL/min Normal 60-69 YRS: >49 mL/min Normal 70-79 YRS: >42 mL/min Normal 80 and above >35 mL/min Normal FEMALE GRF INTERPRETATION: 20-39 YRS: >60 mL/min Normal 40-49 YRS: >58 mL/min Normal 50-59 YRS: >51 mL/min Normal 60-69 YRS: >45 mL/min Normal 70-79 YRS: >39 mL/min Normal 80 and above >32 mL/min Normal BUN 32 mg/dL 8-23 Above high normal [facility] CLASSIFICATION CHOLESTEROL FO R ADULTS CHILDREN/ADOLESCENTS* DESIRABLE: <200 MG/DL <170 MG/DL BORDER-LINE HIGH RISK: 200-239 MG/DL 170-199 MG/DL HIGH RISK: >240 MG/DL >200 MG/DL CLASS. FOR PRIMARY LDL CHOL PREVENTION: LDL CHOL-CHILD/ADOLESCENTS* DESIRABLE: <130 MG/DL <110 MG/DL BORDERLINE-HIGH RISK: 130-159 MG/DL 110-129 MG/DL HIGH RISK: >160 MG/DL >130 MG/DL *CHILDREN AND ADOLESCENTS REPRESENTS INDIVIDUALA AGED 2-19 YEARS EXCLUSIVE. CHRONIC KIDNEY DISEASE STAGING PER NKF: MALE GFR INTERPRETATION: 20-49 YRS: >60 mL/min Normal 50-59 YRS: >56 mL/min Normal 60-69 YRS: >49 mL/min Normal 70-79 YRS: >42 mL/min Normal 80 and above >35 mL/min Normal FEMALE GRF INTERPRETATION: 20-39 YRS: >60 mL/min Normal 40-49 YRS: >58 mL/min Normal 50-59 YRS: >51 mL/min Normal 60-69 YRS: >45 mL/min Normal 70-79 YRS: >39 mL/min Normal 80 and above >32 mL/min Normal Creat 1.7 mg/dL 0.7-1.2 Above high normal [facility] ([facility] CLASSIFICATION CHOLESTEROL FO R ADULTS CHILDREN/ADOLESCENTS* DESIRABLE: <200 MG/DL <170 MG/DL BORDER-LINE HIGH RISK: 200-239 MG/DL 170-199 MG/DL HIGH RISK: >240 MG/DL >200 MG/DL CLASS. FOR PRIMARY LDL CHOL PREVENTION: LDL CHOL-CHILD/ADOLESCENTS* DESIRABLE: <130 MG/DL <110 MG/DL BORDERLINE-HIGH RISK: 130-159 MG/DL 110-129 MG/DL HIGH RISK: >160 MG/DL >130 MG/DL *CHILDREN AND ADOLESCENTS REPRESENTS INDIVIDUALA AGED 2-19 YEARS EXCLUSIVE. CHRONIC KIDNEY DISEASE STAGING PER NKF: MALE GFR INTERPRETATION: 20-49 YRS: >60 mL/min Normal 50-59 YRS: >56 mL/min Normal 60-69 YRS: >49 mL/min Normal 70-79 YRS: >42 mL/min Normal 80 and above >35 mL/min Normal FEMALE GRF INTERPRETATION: 20-39 YRS: >60 mL/min Normal 40-49 YRS: >58 mL/min Normal 50-59 YRS: >51 mL/min Normal 60-69 YRS: >45 mL/min Normal 70-79 YRS: >39 mL/min Normal 80 and above >32 mL/min Normal K 4.3 mmol/L 3.5-5.1 [facility] ([facility] CLASSIFICATION CHOLESTEROL FO R ADULTS CHILDREN/ADOLESCENTS* DESIRABLE: <200 MG/DL <170 MG/DL BORDER-LINE HIGH RISK: 200-239 MG/DL 170-199 MG/DL HIGH RISK: >240 MG/DL >200 MG/DL CLASS. FOR PRIMARY LDL CHOL PREVENTION: LDL CHOL-CHILD/ADOLESCENTS* DESIRABLE: <130 MG/DL <110 MG/DL BORDERLINE-HIGH RISK: 130-159 MG/DL 110-129 MG/DL HIGH RISK: >160 MG/DL >130 MG/DL *CHILDREN AND ADOLESCENTS REPRESENTS INDIVIDUALA AGED 2-19 YEARS EXCLUSIVE. CHRONIC KIDNEY DISEASE STAGING PER NKF: MALE GFR INTERPRETATION: 20-49 YRS: >60 mL/min Normal 50-59 YRS: >56 mL/min Normal 60-69 YRS: >49 mL/min Normal 70-79 YRS: >42 mL/min Normal 80 and above >35 mL/min Normal FEMALE GRF INTERPRETATION: 20-39 YRS: >60 mL/min Normal 40-49 YRS: >58 mL/min Normal 50-59 YRS: >51 mL/min Normal 60-69 YRS: >45 mL/min Normal 70-79 YRS: >39 mL/min Normal 80 and above >32 mL/min Normal Na 142 mmol/L 136-145 [facility] ([facility] CLASSIFICATION CHOLESTEROL FO R ADULTS CHILDREN/ADOLESCENTS* DESIRABLE: <200 MG/DL <170 MG/DL BORDER-LINE HIGH RISK: 200-239 MG/DL 170-199 MG/DL HIGH RISK: >240 MG/DL >200 MG/DL CLASS. FOR PRIMARY LDL CHOL PREVENTION: LDL CHOL-CHILD/ADOLESCENTS* DESIRABLE: <130 MG/DL <110 MG/DL BORDERLINE-HIGH RISK: 130-159 MG/DL 110-129 MG/DL HIGH RISK: >160 MG/DL >130 MG/DL *CHILDREN AND ADOLESCENTS REPRESENTS INDIVIDUALA AGED 2-19 YEARS EXCLUSIVE. CHRONIC KIDNEY DISEASE STAGING PER NKF: MALE GFR INTERPRETATION: 20-49 YRS: >60 mL/min Normal 50-59 YRS: >56 mL/min Normal 60-69 YRS: >49 mL/min Normal 70-79 YRS: >42 mL/min Normal 80 and above >35 mL/min Normal FEMALE GRF INTERPRETATION: 20-39 YRS: >60 mL/min Normal 40-49 YRS: >58 mL/min Normal 50-59 YRS: >51 mL/min Normal 60-69 YRS: >45 mL/min Normal 70-79 YRS: >39 mL/min Normal 80 and above >32 mL/min Normal BUN/Creatinine Ratio 18.5 [facility] CLASSIFICATION CHOLESTEROL FO R ADULTS CHILDREN/ADOLESCENTS* DESIRABLE: <200 MG/DL <170 MG/DL BORDER-LINE HIGH RISK: 200-239 MG/DL 170-199 MG/DL HIGH RISK: >240 MG/DL >200 MG/DL CLASS. FOR PRIMARY LDL CHOL PREVENTION: LDL CHOL-CHILD/ADOLESCENTS* DESIRABLE: <130 MG/DL <110 MG/DL BORDERLINE-HIGH RISK: 130-159 MG/DL 110-129 MG/DL HIGH RISK: >160 MG/DL >130 MG/DL *CHILDREN AND ADOLESCENTS REPRESENTS INDIVIDUALA AGED 2-19 YEARS EXCLUSIVE. CHRONIC KIDNEY DISEASE STAGING PER NKF: MALE GFR INTERPRETATION: 20-49 YRS: >60 mL/min Normal 50-59 YRS: >56 mL/min Normal 60-69 YRS: >49 mL/min Normal 70-79 YRS: >42 mL/min Normal 80 and above >35 mL/min Normal FEMALE GRF INTERPRETATION: 20-39 YRS: >60 mL/min Normal 40-49 YRS: >58 mL/min Normal 50-59 YRS: >51 mL/min Normal 60-69 YRS: >45 mL/min Normal 70-79 YRS: >39 mL/min Normal 80 and above >32 mL/min Normal Co2 27.2 mmol/L 22.0-29.0 [facility] CLASSIFICATION CHOLESTEROL FO R ADULTS CHILDREN/ADOLESCENTS* DESIRABLE: <200 MG/DL <170 MG/DL BORDER-LINE HIGH RISK: 200-239 MG/DL 170-199 MG/DL HIGH RISK: >240 MG/DL >200 MG/DL CLASS. FOR PRIMARY LDL CHOL PREVENTION: LDL CHOL-CHILD/ADOLESCENTS* DESIRABLE: <130 MG/DL <110 MG/DL BORDERLINE-HIGH RISK: 130-159 MG/DL 110-129 MG/DL HIGH RISK: >160 MG/DL >130 MG/DL *CHILDREN AND ADOLESCENTS REPRESENTS INDIVIDUALA AGED 2-19 YEARS EXCLUSIVE. CHRONIC KIDNEY DISEASE STAGING PER NKF: MALE GFR INTERPRETATION: 20-49 YRS: >60 mL/min Normal 50-59 YRS: >56 mL/min Normal 60-69 YRS: >49 mL/min Normal 70-79 YRS: >42 mL/min Normal 80 and above >35 mL/min Normal FEMALE GRF INTERPRETATION: 20-39 YRS: >60 mL/min Normal 40-49 YRS: >58 mL/min Normal 50-59 YRS: >51 mL/min Normal 60-69 YRS: >45 mL/min Normal 70-79 YRS: >39 mL/min Normal 80 and above >32 mL/min Normal CA 9.2 mg/dL 8.6-10.2 [facility] ([facility] CLASSIFICATION CHOLESTEROL FO R ADULTS CHILDREN/ADOLESCENTS* DESIRABLE: <200 MG/DL <170 MG/DL BORDER-LINE HIGH RISK: 200-239 MG/DL 170-199 MG/DL HIGH RISK: >240 MG/DL >200 MG/DL CLASS. FOR PRIMARY LDL CHOL PREVENTION: LDL CHOL-CHILD/ADOLESCENTS* DESIRABLE: <130 MG/DL <110 MG/DL BORDERLINE-HIGH RISK: 130-159 MG/DL 110-129 MG/DL HIGH RISK: >160 MG/DL >130 MG/DL *CHILDREN AND ADOLESCENTS REPRESENTS INDIVIDUALA AGED 2-19 YEARS EXCLUSIVE. CHRONIC KIDNEY DISEASE STAGING PER NKF: MALE GFR INTERPRETATION: 20-49 YRS: >60 mL/min Normal 50-59 YRS: >56 mL/min Normal 60-69 YRS: >49 mL/min Normal 70-79 YRS: >42 mL/min Normal 80 and above >35 mL/min Normal FEMALE GRF INTERPRETATION: 20-39 YRS: >60 mL/min Normal 40-49 YRS: >58 mL/min Normal 50-59 YRS: >51 mL/min Normal 60-69 YRS: >45 mL/min Normal 70-79 YRS: >39 mL/min Normal 80 and above >32 mL/min Normal CL 99.3 mmol/L 98.0-107.0 [facility] ([facility] CLASSIFICATION CHOLESTEROL FO R ADULTS CHILDREN/ADOLESCENTS* DESIRABLE: <200 MG/DL <170 MG/DL BORDER-LINE HIGH RISK: 200-239 MG/DL 170-199 MG/DL HIGH RISK: >240 MG/DL >200 MG/DL CLASS. FOR PRIMARY LDL CHOL PREVENTION: LDL CHOL-CHILD/ADOLESCENTS* DESIRABLE: <130 MG/DL <110 MG/DL BORDERLINE-HIGH RISK: 130-159 MG/DL 110-129 MG/DL HIGH RISK: >160 MG/DL >130 MG/DL *CHILDREN AND ADOLESCENTS REPRESENTS INDIVIDUALA AGED 2-19 YEARS EXCLUSIVE. CHRONIC KIDNEY DISEASE STAGING PER NKF: MALE GFR INTERPRETATION: 20-49 YRS: >60 mL/min Normal 50-59 YRS: >56 mL/min Normal 60-69 YRS: >49 mL/min Normal 70-79 YRS: >42 mL/min Normal 80 and above >35 mL/min Normal FEMALE GRF INTERPRETATION: 20-39 YRS: >60 mL/min Normal 40-49 YRS: >58 mL/min Normal 50-59 YRS: >51 mL/min Normal 60-69 YRS: >45 mL/min Normal 70-79 YRS: >39 mL/min Normal 80 and above >32 mL/min Normal Alb 4.0 g/dL 3.5-5.2 [facility] ([facility] CLASSIFICATION CHOLESTEROL FO R ADULTS CHILDREN/ADOLESCENTS* DESIRABLE: <200 MG/DL <170 MG/DL BORDER-LINE HIGH RISK: 200-239 MG/DL 170-199 MG/DL HIGH RISK: >240 MG/DL >200 MG/DL CLASS. FOR PRIMARY LDL CHOL PREVENTION: LDL CHOL-CHILD/ADOLESCENTS* DESIRABLE: <130 MG/DL <110 MG/DL BORDERLINE-HIGH RISK: 130-159 MG/DL 110-129 MG/DL HIGH RISK: >160 MG/DL >130 MG/DL *CHILDREN AND ADOLESCENTS REPRESENTS INDIVIDUALA AGED 2-19 YEARS EXCLUSIVE. CHRONIC KIDNEY DISEASE STAGING PER NKF: MALE GFR INTERPRETATION: 20-49 YRS: >60 mL/min Normal 50-59 YRS: >56 mL/min Normal 60-69 YRS: >49 mL/min Normal 70-79 YRS: >42 mL/min Normal 80 and above >35 mL/min Normal FEMALE GRF INTERPRETATION: 20-39 YRS: >60 mL/min Normal 40-49 YRS: >58 mL/min Normal 50-59 YRS: >51 mL/min Normal 60-69 YRS: >45 mL/min Normal 70-79 YRS: >39 mL/min Normal 80 and above >32 mL/min Normal TP 5.9 g/dL 6.6-8.7 Below low normal [facility] ( [facility] CLASSIFICATION CHOLESTEROL FO R ADULTS CHILDREN/ADOLESCENTS* DESIRABLE: <200 MG/DL <170 MG/DL BORDER-LINE HIGH RISK: 200-239 MG/DL 170-199 MG/DL HIGH RISK: >240 MG/DL >200 MG/DL CLASS. FOR PRIMARY LDL CHOL PREVENTION: LDL CHOL-CHILD/ADOLESCENTS* DESIRABLE: <130 MG/DL <110 MG/DL BORDERLINE-HIGH RISK: 130-159 MG/DL 110-129 MG/DL HIGH RISK: >160 MG/DL >130 MG/DL *CHILDREN AND ADOLESCENTS REPRESENTS INDIVIDUALA AGED 2-19 YEARS EXCLUSIVE. CHRONIC KIDNEY DISEASE STAGING PER NKF: MALE GFR INTERPRETATION: 20-49 YRS: >60 mL/min Normal 50-59 YRS: >56 mL/min Normal 60-69 YRS: >49 mL/min Normal 70-79 YRS: >42 mL/min Normal 80 and above >35 mL/min Normal FEMALE GRF INTERPRETATION: 20-39 YRS: >60 mL/min Normal 40-49 YRS: >58 mL/min Normal 50-59 YRS: >51 mL/min Normal 60-69 YRS: >45 mL/min Normal 70-79 YRS: >39 mL/min Normal 80 and above >32 mL/min Normal A/G Ratio 2.2 Calc [facility] ([facility] CLASSIFICATION CHOLESTEROL FO R ADULTS CHILDREN/ADOLESCENTS* DESIRABLE: <200 MG/DL <170 MG/DL BORDER-LINE HIGH RISK: 200-239 MG/DL 170-199 MG/DL HIGH RISK: >240 MG/DL >200 MG/DL CLASS. FOR PRIMARY LDL CHOL PREVENTION: LDL CHOL-CHILD/ADOLESCENTS* DESIRABLE: <130 MG/DL <110 MG/DL BORDERLINE-HIGH RISK: 130-159 MG/DL 110-129 MG/DL HIGH RISK: >160 MG/DL >130 MG/DL *CHILDREN AND ADOLESCENTS REPRESENTS INDIVIDUALA AGED 2-19 YEARS EXCLUSIVE. CHRONIC KIDNEY DISEASE STAGING PER NKF: MALE GFR INTERPRETATION: 20-49 YRS: >60 mL/min Normal 50-59 YRS: >56 mL/min Normal 60-69 YRS: >49 mL/min Normal 70-79 YRS: >42 mL/min Normal 80 and above >35 mL/min Normal FEMALE GRF INTERPRETATION: 20-39 YRS: >60 mL/min Normal 40-49 YRS: >58 mL/min Normal 50-59 YRS: >51 mL/min Normal 60-69 YRS: >45 mL/min Normal 70-79 YRS: >39 mL/min Normal 80 and above >32 mL/min Normal Ast (Sgot) 18 U/L 0-40 [facility] CLASSIFICATION CHOLESTEROL FO R ADULTS CHILDREN/ADOLESCENTS* DESIRABLE: <200 MG/DL <170 MG/DL BORDER-LINE HIGH RISK: 200-239 MG/DL 170-199 MG/DL HIGH RISK: >240 MG/DL >200 MG/DL CLASS. FOR PRIMARY LDL CHOL PREVENTION: LDL CHOL-CHILD/ADOLESCENTS* DESIRABLE: <130 MG/DL <110 MG/DL BORDERLINE-HIGH RISK: 130-159 MG/DL 110-129 MG/DL HIGH RISK: >160 MG/DL >130 MG/DL *CHILDREN AND ADOLESCENTS REPRESENTS INDIVIDUALA AGED 2-19 YEARS EXCLUSIVE. CHRONIC KIDNEY DISEASE STAGING PER NKF: MALE GFR INTERPRETATION: 20-49 YRS: >60 mL/min Normal 50-59 YRS: >56 mL/min Normal 60-69 YRS: >49 mL/min Normal 70-79 YRS: >42 mL/min Normal 80 and above >35 mL/min Normal FEMALE GRF INTERPRETATION: 20-39 YRS: >60 mL/min Normal 40-49 YRS: >58 mL/min Normal 50-59 YRS: >51 mL/min Normal 60-69 YRS: >45 mL/min Normal 70-79 YRS: >39 mL/min Normal 80 and above >32 mL/min Normal Alp 43.5 U/L 40-129 [facility] ([facility] CLASSIFICATION CHOLESTEROL FO R ADULTS CHILDREN/ADOLESCENTS* DESIRABLE: <200 MG/DL <170 MG/DL BORDER-LINE HIGH RISK: 200-239 MG/DL 170-199 MG/DL HIGH RISK: >240 MG/DL >200 MG/DL CLASS. FOR PRIMARY LDL CHOL PREVENTION: LDL CHOL-CHILD/ADOLESCENTS* DESIRABLE: <130 MG/DL <110 MG/DL BORDERLINE-HIGH RISK: 130-159 MG/DL 110-129 MG/DL HIGH RISK: >160 MG/DL >130 MG/DL *CHILDREN AND ADOLESCENTS REPRESENTS INDIVIDUALA AGED 2-19 YEARS EXCLUSIVE. CHRONIC KIDNEY DISEASE STAGING PER NKF: MALE GFR INTERPRETATION: 20-49 YRS: >60 mL/min Normal 50-59 YRS: >56 mL/min Normal 60-69 YRS: >49 mL/min Normal 70-79 YRS: >42 mL/min Normal 80 and above >35 mL/min Normal FEMALE GRF INTERPRETATION: 20-39 YRS: >60 mL/min Normal 40-49 YRS: >58 mL/min Normal 50-59 YRS: >51 mL/min Normal 60-69 YRS: >45 mL/min Normal 70-79 YRS: >39 mL/min Normal 80 and above >32 mL/min Normal Globulin 1.8 Calc [facility] ([facility] CLASSIFICATION CHOLESTEROL FO R ADULTS CHILDREN/ADOLESCENTS* DESIRABLE: <200 MG/DL <170 MG/DL BORDER-LINE HIGH RISK: 200-239 MG/DL 170-199 MG/DL HIGH RISK: >240 MG/DL >200 MG/DL CLASS. FOR PRIMARY LDL CHOL PREVENTION: LDL CHOL-CHILD/ADOLESCENTS* DESIRABLE: <130 MG/DL <110 MG/DL BORDERLINE-HIGH RISK: 130-159 MG/DL 110-129 MG/DL HIGH RISK: >160 MG/DL >130 MG/DL *CHILDREN AND ADOLESCENTS REPRESENTS INDIVIDUALA AGED 2-19 YEARS EXCLUSIVE. CHRONIC KIDNEY DISEASE STAGING PER NKF: MALE GFR INTERPRETATION: 20-49 YRS: >60 mL/min Normal 50-59 YRS: >56 mL/min Normal 60-69 YRS: >49 mL/min Normal 70-79 YRS: >42 mL/min Normal 80 and above >35 mL/min Normal FEMALE GRF INTERPRETATION: 20-39 YRS: >60 mL/min Normal 40-49 YRS: >58 mL/min Normal 50-59 YRS: >51 mL/min Normal 60-69 YRS: >45 mL/min Normal 70-79 YRS: >39 mL/min Normal 80 and above >32 mL/min Normal Alt (SGPT) 14 U/L 0-41 [facility] ([facility] CLASSIFICATION CHOLESTEROL FO R ADULTS CHILDREN/ADOLESCENTS* DESIRABLE: <200 MG/DL <170 MG/DL BORDER-LINE HIGH RISK: 200-239 MG/DL 170-199 MG/DL HIGH RISK: >240 MG/DL >200 MG/DL CLASS. FOR PRIMARY LDL CHOL PREVENTION: LDL CHOL-CHILD/ADOLESCENTS* DESIRABLE: <130 MG/DL <110 MG/DL BORDERLINE-HIGH RISK: 130-159 MG/DL 110-129 MG/DL HIGH RISK: >160 MG/DL >130 MG/DL *CHILDREN AND ADOLESCENTS REPRESENTS INDIVIDUALA AGED 2-19 YEARS EXCLUSIVE. CHRONIC KIDNEY DISEASE STAGING PER NKF: MALE GFR INTERPRETATION: 20-49 YRS: >60 mL/min Normal 50-59 YRS: >56 mL/min Normal 60-69 YRS: >49 mL/min Normal 70-79 YRS: >42 mL/min Normal 80 and above >35 mL/min Normal FEMALE GRF INTERPRETATION: 20-39 YRS: >60 mL/min Normal 40-49 YRS: >58 mL/min Normal 50-59 YRS: >51 mL/min Normal 60-69 YRS: >45 mL/min Normal 70-79 YRS: >39 mL/min Normal 80 and above >32 mL/min Normal Osmolality-Calculated 292.9 Calc [facility] ([facility] CLASSIFICATION CHOLESTEROL FO R ADULTS CHILDREN/ADOLESCENTS* DESIRABLE: <200 MG/DL <170 MG/DL BORDER-LINE HIGH RISK: 200-239 MG/DL 170-199 MG/DL HIGH RISK: >240 MG/DL >200 MG/DL CLASS. FOR PRIMARY LDL CHOL PREVENTION: LDL CHOL-CHILD/ADOLESCENTS* DESIRABLE: <130 MG/DL <110 MG/DL BORDERLINE-HIGH RISK: 130-159 MG/DL 110-129 MG/DL HIGH RISK: >160 MG/DL >130 MG/DL *CHILDREN AND ADOLESCENTS REPRESENTS INDIVIDUALA AGED 2-19 YEARS EXCLUSIVE. CHRONIC KIDNEY DISEASE STAGING PER NKF: MALE GFR INTERPRETATION: 20-49 YRS: >60 mL/min Normal 50-59 YRS: >56 mL/min Normal 60-69 YRS: >49 mL/min Normal 70-79 YRS: >42 mL/min Normal 80 and above >35 mL/min Normal FEMALE GRF INTERPRETATION: 20-39 YRS: >60 mL/min Normal 40-49 YRS: >58 mL/min Normal 50-59 YRS: >51 mL/min Normal 60-69 YRS: >45 mL/min Normal 70-79 YRS: >39 mL/min Normal 80 and above >32 mL/min Normal Anion Gap 19 mmol/L [facility] ([facility] CLASSIFICATION CHOLESTEROL FO R ADULTS CHILDREN/ADOLESCENTS* DESIRABLE: <200 MG/DL <170 MG/DL BORDER-LINE HIGH RISK: 200-239 MG/DL 170-199 MG/DL HIGH RISK: >240 MG/DL >200 MG/DL CLASS. FOR PRIMARY LDL CHOL PREVENTION: LDL CHOL-CHILD/ADOLESCENTS* DESIRABLE: <130 MG/DL <110 MG/DL BORDERLINE-HIGH RISK: 130-159 MG/DL 110-129 MG/DL HIGH RISK: >160 MG/DL >130 MG/DL *CHILDREN AND ADOLESCENTS REPRESENTS INDIVIDUALA AGED 2-19 YEARS EXCLUSIVE. CHRONIC KIDNEY DISEASE STAGING PER NKF: MALE GFR INTERPRETATION: 20-49 YRS: >60 mL/min Normal 50-59 YRS: >56 mL/min Normal 60-69 YRS: >49 mL/min Normal 70-79 YRS: >42 mL/min Normal 80 and above >35 mL/min Normal FEMALE GRF INTERPRETATION: 20-39 YRS: >60 mL/min Normal 40-49 YRS: >58 mL/min Normal 50-59 YRS: >51 mL/min Normal 60-69 YRS: >45 mL/min Normal 70-79 YRS: >39 mL/min Normal 80 and above >32 mL/min Normal Tbili 0.40 mg/dL 0.0-1.2 [facility] ([facility] CLASSIFICATION CHOLESTEROL FO R ADULTS CHILDREN/ADOLESCENTS* DESIRABLE: <200 MG/DL <170 MG/DL BORDER-LINE HIGH RISK: 200-239 MG/DL 170-199 MG/DL HIGH RISK: >240 MG/DL >200 MG/DL CLASS. FOR PRIMARY LDL CHOL PREVENTION: LDL CHOL-CHILD/ADOLESCENTS* DESIRABLE: <130 MG/DL <110 MG/DL BORDERLINE-HIGH RISK: 130-159 MG/DL 110-129 MG/DL HIGH RISK: >160 MG/DL >130 MG/DL *CHILDREN AND ADOLESCENTS REPRESENTS INDIVIDUALA AGED 2-19 YEARS EXCLUSIVE. CHRONIC KIDNEY DISEASE STAGING PER NKF: MALE GFR INTERPRETATION: 20-49 YRS: >60 mL/min Normal 50-59 YRS: >56 mL/min Normal 60-69 YRS: >49 mL/min Normal 70-79 YRS: >42 mL/min Normal 80 and above >35 mL/min Normal FEMALE GRF INTERPRETATION: 20-39 YRS: >60 mL/min Normal 40-49 YRS: >58 mL/min Normal 50-59 YRS: >51 mL/min Normal 60-69 YRS: >45 mL/min Normal 70-79 YRS: >39 mL/min Normal 80 and above >32 mL/min Normal eGFR Non-Afr. Nicaraguan 36 # MEDENT ([facility] CLASSIFICATION CHOLESTEROL FO R ADULTS CHILDREN/ADOLESCENTS* DESIRABLE: <200 MG/DL <170 MG/DL BORDER-LINE HIGH RISK: 200-239 MG/DL 170-199 MG/DL HIGH RISK: >240 MG/DL >200 MG/DL CLASS. FOR PRIMARY LDL CHOL PREVENTION: LDL CHOL-CHILD/ADOLESCENTS* DESIRABLE: <130 MG/DL <110 MG/DL BORDERLINE-HIGH RISK: 130-159 MG/DL 110-129 MG/DL HIGH RISK: >160 MG/DL >130 MG/DL *CHILDREN AND ADOLESCENTS REPRESENTS INDIVIDUALA AGED 2-19 YEARS EXCLUSIVE. CHRONIC KIDNEY DISEASE STAGING PER NKF: MALE GFR INTERPRETATION: 20-49 YRS: >60 mL/min Normal 50-59 YRS: >56 mL/min Normal 60-69 YRS: >49 mL/min Normal 70-79 YRS: >42 mL/min Normal 80 and above >35 mL/min Normal FEMALE GRF INTERPRETATION: 20-39 YRS: >60 mL/min Normal 40-49 YRS: >58 mL/min Normal 50-59 YRS: >51 mL/min Normal 60-69 YRS: >45 mL/min Normal 70-79 YRS: >39 mL/min Normal 80 and above >32 mL/min Normal eGFR 42 # MEDENT ( [facility] CLASSIFICATION CHOLESTEROL FO R ADULTS CHILDREN/ADOLESCENTS* DESIRABLE: <200 MG/DL <170 MG/DL BORDER-LINE HIGH RISK: 200-239 MG/DL 170-199 MG/DL HIGH RISK: >240 MG/DL >200 MG/DL CLASS. FOR PRIMARY LDL CHOL PREVENTION: LDL CHOL-CHILD/ADOLESCENTS* DESIRABLE: <130 MG/DL <110 MG/DL BORDERLINE-HIGH RISK: 130-159 MG/DL 110-129 MG/DL HIGH RISK: >160 MG/DL >130 MG/DL *CHILDREN AND ADOLESCENTS REPRESENTS INDIVIDUALA AGED 2-19 YEARS EXCLUSIVE. CHRONIC KIDNEY DISEASE STAGING PER NKF: MALE GFR INTERPRETATION: 20-49 YRS: >60 mL/min Normal 50-59 YRS: >56 mL/min Normal 60-69 YRS: >49 mL/min Normal 70-79 YRS: >42 mL/min Normal 80 and above >35 mL/min Normal FEMALE GRF INTERPRETATION: 20-39 YRS: >60 mL/min Normal 40-49 YRS: >58 mL/min Normal 50-59 YRS: >51 mL/min Normal 60-69 YRS: >45 mL/min Normal 70-79 YRS: >39 mL/min Normal 80 and above >32 mL/min Normal ID Date Data Source [id number] 05/26/2019 01:12:00 PM EST DAWNA ([facility] Name Value Range Interpretation Code Description Data Pennie rce(s) Supporting Document(s) Prostate specific Ag [Mass/volume] in Serum or Plasma 44 mg/dL 35-5 5 MEDENT ([facility] CLASSIFICATION CHOLESTEROL FO R ADULTS CHILDREN/ADOLESCENTS* DESIRABLE: <200 MG/DL <170 MG/DL BORDER-LINE HIGH RISK: 200-239 MG/DL 170-199 MG/DL HIGH RISK: >240 MG/DL >200 MG/DL CLASS. FOR PRIMARY LDL CHOL PREVENTION: LDL CHOL-CHILD/ADOLESCENTS* DESIRABLE: <130 MG/DL <110 MG/DL BORDERLINE-HIGH RISK: 130-159 MG/DL 110-129 MG/DL HIGH RISK: >160 MG/DL >130 MG/DL *CHILDREN AND ADOLESCENTS REPRESENTS INDIVIDUALA AGED 2-19 YEARS EXCLUSIVE. CHRONIC KIDNEY DISEASE STAGING PER NKF: MALE GFR INTERPRETATION: 20-49 YRS: >60 mL/min Normal 50-59 YRS: >56 mL/min Normal 60-69 YRS: >49 mL/min Normal 70-79 YRS: >42 mL/min Normal 80 and above >35 mL/min Normal FEMALE GRF INTERPRETATION: 20-39 YRS: >60 mL/min Normal 40-49 YRS: >58 mL/min Normal 50-59 YRS: >51 mL/min Normal 60-69 YRS: >45 mL/min Normal 70-79 YRS: >39 mL/min Normal 80 and above >32 mL/min Normal Chol 186 mg/dL 0-200 [facility] ([facility] CLASSIFICATION CHOLESTEROL FO R ADULTS CHILDREN/ADOLESCENTS* DESIRABLE: <200 MG/DL <170 MG/DL BORDER-LINE HIGH RISK: 200-239 MG/DL 170-199 MG/DL HIGH RISK: >240 MG/DL >200 MG/DL CLASS. FOR PRIMARY LDL CHOL PREVENTION: LDL CHOL-CHILD/ADOLESCENTS* DESIRABLE: <130 MG/DL <110 MG/DL BORDERLINE-HIGH RISK: 130-159 MG/DL 110-129 MG/DL HIGH RISK: >160 MG/DL >130 MG/DL *CHILDREN AND ADOLESCENTS REPRESENTS INDIVIDUALA AGED 2-19 YEARS EXCLUSIVE. CHRONIC KIDNEY DISEASE STAGING PER NKF: MALE GFR INTERPRETATION: 20-49 YRS: >60 mL/min Normal 50-59 YRS: >56 mL/min Normal 60-69 YRS: >49 mL/min Normal 70-79 YRS: >42 mL/min Normal 80 and above >35 mL/min Normal FEMALE GRF INTERPRETATION: 20-39 YRS: >60 mL/min Normal 40-49 YRS: >58 mL/min Normal 50-59 YRS: >51 mL/min Normal 60-69 YRS: >45 mL/min Normal 70-79 YRS: >39 mL/min Normal 80 and above >32 mL/min Normal Trig 175 mg/dL 35-200 [facility] ([facility] CLASSIFICATION CHOLESTEROL FO R ADULTS CHILDREN/ADOLESCENTS* DESIRABLE: <200 MG/DL <170 MG/DL BORDER-LINE HIGH RISK: 200-239 MG/DL 170-199 MG/DL HIGH RISK: >240 MG/DL >200 MG/DL CLASS. FOR PRIMARY LDL CHOL PREVENTION: LDL CHOL-CHILD/ADOLESCENTS* DESIRABLE: <130 MG/DL <110 MG/DL BORDERLINE-HIGH RISK: 130-159 MG/DL 110-129 MG/DL HIGH RISK: >160 MG/DL >130 MG/DL *CHILDREN AND ADOLESCENTS REPRESENTS INDIVIDUALA AGED 2-19 YEARS EXCLUSIVE. CHRONIC KIDNEY DISEASE STAGING PER NKF: MALE GFR INTERPRETATION: 20-49 YRS: >60 mL/min Normal 50-59 YRS: >56 mL/min Normal 60-69 YRS: >49 mL/min Normal 70-79 YRS: >42 mL/min Normal 80 and above >35 mL/min Normal FEMALE GRF INTERPRETATION: 20-39 YRS: >60 mL/min Normal 40-49 YRS: >58 mL/min Normal 50-59 YRS: >51 mL/min Normal 60-69 YRS: >45 mL/min Normal 70-79 YRS: >39 mL/min Normal 80 and above >32 mL/min Normal Cho/HDL Ratio 4.3 CALC MEDENT ([facility] CLASSIFICATION CHOLESTEROL FO R ADULTS CHILDREN/ADOLESCENTS* DESIRABLE: <200 MG/DL <170 MG/DL BORDER-LINE HIGH RISK: 200-239 MG/DL 170-199 MG/DL HIGH RISK: >240 MG/DL >200 MG/DL CLASS. FOR PRIMARY LDL CHOL PREVENTION: LDL CHOL-CHILD/ADOLESCENTS* DESIRABLE: <130 MG/DL <110 MG/DL BORDERLINE-HIGH RISK: 130-159 MG/DL 110-129 MG/DL HIGH RISK: >160 MG/DL >130 MG/DL *CHILDREN AND ADOLESCENTS REPRESENTS INDIVIDUALA AGED 2-19 YEARS EXCLUSIVE. CHRONIC KIDNEY DISEASE STAGING PER NKF: MALE GFR INTERPRETATION: 20-49 YRS: >60 mL/min Normal 50-59 YRS: >56 mL/min Normal 60-69 YRS: >49 mL/min Normal 70-79 YRS: >42 mL/min Normal 80 and above >35 mL/min Normal FEMALE GRF INTERPRETATION: 20-39 YRS: >60 mL/min Normal 40-49 YRS: >58 mL/min Normal 50-59 YRS: >51 mL/min Normal 60-69 YRS: >45 mL/min Normal 70-79 YRS: >39 mL/min Normal 80 and above >32 mL/min Normal LDL_C 107 Calc 75-129 MEDENT ([facility] CLASSIFICATION CHOLESTEROL FO R ADULTS CHILDREN/ADOLESCENTS* DESIRABLE: <200 MG/DL <170 MG/DL BORDER-LINE HIGH RISK: 200-239 MG/DL 170-199 MG/DL HIGH RISK: >240 MG/DL >200 MG/DL CLASS. FOR PRIMARY LDL CHOL PREVENTION: LDL CHOL-CHILD/ADOLESCENTS* DESIRABLE: <130 MG/DL <110 MG/DL BORDERLINE-HIGH RISK: 130-159 MG/DL 110-129 MG/DL HIGH RISK: >160 MG/DL >130 MG/DL *CHILDREN AND ADOLESCENTS REPRESENTS INDIVIDUALA AGED 2-19 YEARS EXCLUSIVE. CHRONIC KIDNEY DISEASE STAGING PER NKF: MALE GFR INTERPRETATION: 20-49 YRS: >60 mL/min Normal 50-59 YRS: >56 mL/min Normal 60-69 YRS: >49 mL/min Normal 70-79 YRS: >42 mL/min Normal 80 and above >35 mL/min Normal FEMALE GRF INTERPRETATION: 20-39 YRS: >60 mL/min Normal 40-49 YRS: >58 mL/min Normal 50-59 YRS: >51 mL/min Normal 60-69 YRS: >45 mL/min Normal 70-79 YRS: >39 mL/min Normal 80 and above >32 mL/min Normal ID Date Data Source [id number] 05/14/2019 02:40:00 PM EST MEDENT ([facility]) Name Value Range Interpretation Code Description Data Pennie rce(s) Supporting Document(s) Magnesium [Mass/volume] in Serum or Plasma 2.1 mg/dL 1.6-2.3 MEDENT ([facility]) Laboratory test finding (navigational concept) Laboratory test result MEDENT ([facility]) ID Date Data Source [id number] 05/14/2019 02:40:00 PM EST [facility] [place] Name Value Range Interpretation Code Description Data Pennie rce(s) Supporting Document(s) Glucose 107 mg/dL 65-99 [facility] ([facility]) Urea nitrogen [Mass/volume] in Serum or Plasma 29 mg/dL 8-27 [facility] ([facility]) eGFR If NonAfricn Am 37 mL/min/1.73 MEDE NT ([facility]) eGFR If Africn Am 43 mL/min/1.73 MED[facility] ([facility]) Creatinine 1.67 mg/dL 0.76-1.27 MED[facility] ([facility]) Urea nitrogen/Creatinine [Mass Ratio] in Serum or Plasma 17 1 0-24 [facility] ([facility]) Sodium 146 mmol/L 134-144 MED[facility] ([facility]) Carbon dioxide, total [Moles/volume] in Serum or Plasma 28 mmol/L 20 -29 MED[facility] ([facility]) Potassium [Moles/volume] in Serum or Plasma 4.4 mmol/L 3.5-5.2 MEDENT ([facility]) Chloride [Moles/volume] in Serum or Plasma 102 mmol/L 96-106 MEDENT ([facility]) Calcium [Mass/volume] in Serum or Plasma 8.8 mg/dL 8.6-10.2 MED[facility] ([facility]) ID Date Data Source [id number] 05/15/2019 08:06:00 AM EST [facility] Name Value Range Interpretation Code Description Data Pennie rce(s) Supporting Document(s) Glucose 107 mg/dL 65-99 Above high normal [facility] BUN 29 mg/dL 8-27 Above high normal [facility] Creatinine 1.67 mg/dL 0.76-1.27 Above high normal [facility] eGFR If NonAfricn Am 37 mL/min/1.73 >59 Below low normal [facility] eGFR If Africn Am 43 mL/min/1.73 >59 Below low normal [facility] BUN/Creatinine Ratio 17 10-24 [facility] Sodium 146 mmol/L 134-144 Above high normal [facility] Potassium 4.4 mmol/L 3.5-5.2 [facility] Chloride 102 mmol/L 96-106 [facility] Carbon Dioxide, Total 28 mmol/L 20-29 [facility] Calcium 8.8 mg/dL 8.6-10.2 [facility] ID Date Data Source [id number] 05/15/2019 08:06:00 AM EST [facility] Name Value Range Interpretation Code Description Data Pennie rce(s) Supporting Document(s) Magnesium 2.1 mg/dL 1.6-2.3 [facility] ID Date Data Source [id number] 05/05/2019 02:11:02 PM EST [facility]FORMATIONPatient MRN Name Date of Age Gend*PT [id number] LeeMarcy mckeon 1935 83 years M ---PT Location Admission Date/Time Visit ID Attending Provider --- --- --- --- EPI ID CSN Admitting Provider [id number] ---[facility] [id number] [facility], [address] (First Floor)[place], [place] [address]Sb.: Fax: Qatient: Marcy Lee : 1935Date: 05/05/19CARDIOLOGY OFFICE NOTEHISTORY OF PRESENT ILLNESS: Patient presents for follow-up of his atrialfibrillation. He states that since his cryoablation he is only really had oneepisode of atrial fibrillation but this occurred while he was in the hospitalbeing treated for pneumonia. He states he feels much better. He denies anypalpitations and denies any shortness of breath or fatigue.PAST MEDICAL HISTORY1. Paroxysmal atrial fibrillation. Status post cryoablation December 29. Diastolic congestive heart failure3. History of sick sinus syndrome insertion of permanent pacemakerFAMILY HISTORY: family history includes Cancer in his mother; Heart disease inhis father.SOCIAL HISTORY: reports that he quit smoking about 30 years ago. He has a 37.00pack-year smoking history. He has never used smokeless tobacco. He reports thathe drank alcohol. He reports that he does not use drugs.REVIEW OF SYSTEMS: Constitutional: Denies syncope. Denies fever, chills, weightloss or gain. Eyes: Denies blindness. Cardiovascular: Denies palpitations.Respiratory: Denies shortness of breath. GI: Denies abdominal pain, nausea orvomiting. : Denies dysuria or hematuria. Musculoskeletal: Negative lowerextremity edema. Integumentary: Denies rash. Neurologic: Denies seizures.Psychiatric: Denies depression or anxiety. Hematologic: Denies anemia.Current Outpatient Medications: acetaminophen (TYLENOL) 500 MG tablet, Take 1,000 mg by mouth daily as neededfor pain, Disp: , Rfl: apixaban (ELIQUIS) 2.5 MG TABS tablet, Take 2.5 mg by mouth 2 (two) times aday , Disp: , Rfl: aspirin 81 MG chewable tablet, Chew 81 mg daily, Disp: , Rfl: atenolol (TENORMIN) 25 MG tablet, Take 100 mg by mouth 2 (two) times a day ,Disp: , Rfl: budesonide-formoterol (SYMBICORT) 160-4.5 MCG/ACT inhaler, Inhale 2 puffs 2(two) times a day, Disp: , Rfl: fenofibrate (LOFIBRA) 160 MG tablet, Take 160 mg by mouth nightly, Disp: ,Rfl: finasteride (PROSCAR) 5 MG tablet, Take 5 mg by mouth daily, Disp: , Rfl: levalbuterol (XOPENEX HFA) 45 MCG/ACT inhaler, Inhale 2 puffs every 4 (four)hours as needed for wheezing, Disp: , Rfl: Magnesium Oxide (MAG-OX) 400 MG tablet, Take 400 mg by mouth daily , Disp: ,Rfl: [place]-3 Fatty Acids (FISH OIL) 1200 MG CAPS, Take by mouth 2 (two) times aday, Disp: , Rfl: omeprazole (PRILOSEC) 40 MG capsule, Take 40 mg by mouth daily, Disp: , Rfl: polyethylene glycol (GLYCOLAX) powder, Take 17 g by mouth daily as needed(for constipation), Disp: , Rfl: potassium chloride SA (K-DUR,KLOR-CON) 10 MEQ tablet, Take 10 mEq by mouthdaily, Disp: , Rfl: predniSONE (DELTASONE) 5 MG tablet, Take 7.5 mg by mouth daily , Disp: , Rfl: rOPINIRole (REQUIP) 0.25 MG tablet, Take 0.25 mg by mouth 3 (three) times aday, Disp: , Rfl: tamsulosin (FLOMAX) 0.4 MG CAPS, Take 0.4 mg by mouth daily, Disp: , Rfl: torsemide (DEMADEX) 20 MG tablet, Take 20 mg by mouth daily , Disp: , Rfl: traMADol (ULTRAM) 50 MG tablet, Take 50 mg by mouth 2 (two) times a day asneeded for pain , Disp: , Rfl:ALLERGIES: is allergic to nitrous oxide; clarithromycin; flonase [fluticasone];fluconazole; metformin and related; novocain [procaine]; and zithromax[azithromycin].PHYSICAL EXAMINATION:General appearance reveals a well-nourished, well-developed male. Neck shows nomasses or goiter. Lymphatics reveal no axillary or cervical adenopathy. Lungsclear to auscultation. Cardiac exam normal first heart sound second heart soundsplit. JVP flat. Carotid upstrokes brisk. GI is nontender, nondistended,bowel sounds present, no hepatosplenomegaly. Musculoskeletal reveals normalgait. Extremities show no edema. Skin shows no rashes or subcutaneous nodules.Psych reveals normal affect, alert and oriented x3.Vitals: 05/05/19 1352BP: 106/60Pulse: 78Weight: 66.7 kg (147 lb)Height: 1.702 m (5' 7")EKG:EKG Results (Last 72 hours) 05/05/19 1409 ECG 12 lead Final result Impression: Atrial paced rhythmASSESSMENT/PLAN: This is an 83-year-old gentleman with a history of atrialfibrillation who is approximately 3 months post cryoablation and who is doingwell. I told the patient and his family it is not unusual that with asignificant illness such as pneumonia for atrial fibrillation to recur. At thispoint it is too soon to know whether or not he will have long-term relief fromthe procedure. 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 I would be happy to see him in the future should his A. fib recurSignature: Jose Leslie MD, [facility], [facility] CENTERCardiac Electrophysiology and Arrhythmia ServiceDate: May 05, 2019Time: 2:09 [facility] CENTERhis document or parts of this document, were dictated using [employer]. A reasonable attempt at proofreading has been made to minimize errors.Please call with any questions or corrections. Name Value Range Interpretation Code Description Data [facility] Supporting Document(s) ID Date Data Source [id number] 04/26/2019 02:13:00 PM EST MEDENT ([facility] Name Value Range Interpretation Code Description Data [facility] Supporting Document(s) Leukocytes [#/volume] in Blood by Automated count 18.6 x10E3/uL 3.4-10.8 Above high normal MEDENT ([facility] ) Hematocrit [Volume Fraction] of Blood by Automated count 30.6 % 37.5-51.0 Below low normal MED[facility] ([facility] Hemoglobin [Mass/volume] in Blood 10.3 g/dL 13.0-17.7 Below low nor mal MEDENT ([facility] Erythrocyte mean corpuscular volume [Entitic volume] by Auto mated count 85 fL 79-97 [facility] Erythrocytes [#/volume] in Blood by Automated count 3.60 x10E6/u L 4.14-5.80 Below low normal [facility] ([facility] ) Erythrocyte distribution width [Ratio] by Automated count 18.1 % 11.6-15.4 Above high normal [facility] ([facility] ) Erythrocyte mean corpuscular hemoglobin concentration [Mass/volume] by Automated count 33.7 g/dL 31.5-35.7 [facility] ([facility] Erythrocyte mean corpuscular hemoglobin [Entitic mass] by Automated count 28.6 pg 26.6-33.0 [facility] Neutrophils 82 % [facility] ([facility] Platelets [#/volume] in Blood by Automated count 242 x10E3/uL 150-450 [facility] ([facility] Lymphs 4 % [facility] Monocytes/100 leukocytes in Blood by Automated count 11 % [facility] ([facility] Basophils/100 leukocytes in Blood by Automated count 3 % [facility] ([facility] Eosinophils/100 leukocytes in Blood by Automated count 0 % [facility] ([facility] Immature cells [#/volume] in Blood Laboratory test result [facility] ([facility] Eosinophils [#/volume] in Blood by Automated count 0.0 x10E3/uL 0.0-0 .4 [facility] ([facility] Lymphocytes [#/volume] in Blood 0.7 x10E3/uL 0.7-3.1 [facility] ([facility] Monocytes [#/volume] in Blood 2.0 x10E3/uL 0.1-0.9 Above high norm al MEDENT ([facility] Neutrophils [#/volume] in Blood by Automated count 15.3 x10E3/uL 1.4-7.0 Above high normal [facility] ([facility] ) Immature granulocytes [#/volume] in Blood by Automated count Laboratory test result [facility] ([facility] Immature granulocytes/100 leukocytes in Blood by Autom ated count Laboratory test result [facility] ([facility] Basophils [#/volume] in Blood by Automated count 0.6 x10E3/uL 0.0-0.2 Above high normal [facility] ([facility] ) Nucleated erythrocytes/100 leukocytes [Ratio] in Blood by Automated count Laboratory test result [facility] ([facility] Morphology [Interpretation] in Blood Narrative Laboratory test result [facility] ([facility] Manual differential was performed. ID Date Data Source [id number] 04/26/2019 02:13:00 PM EST MEDENT ([facility] Name Value Range Interpretation Code Description Data Pennie rce(s) Supporting Document(s) Glu 105 mg/dL 70-110 MEDENT ([facility] CHRONIC KIDNEY DISEASE STAGING PER NKF: MALE GFR INTERPRETATION: 20-49 YRS: >60 mL/min Normal 50-59 YRS: >56 mL/min Normal 60-69 YRS: >49 mL/min Normal 70-79 YRS: >42 mL/min Normal 80 and above >35 mL/min Normal FEMALE GRF INTERPRETATION: 20-39 YRS: >60 mL/min Normal 40-49 YRS: >58 mL/min Normal 50-59 YRS: >51 mL/min Normal 60-69 YRS: >45 mL/min Normal 70-79 YRS: >39 mL/min Normal 80 and above >32 mL/min Normal Creat 1.9 mg/dL 0.7-1.2 Above high normal [facility] ([facility] CHRONIC KIDNEY DISEASE STAGING PER NKF: MALE GFR INTERPRETATION: 20-49 YRS: >60 mL/min Normal 50-59 YRS: >56 mL/min Normal 60-69 YRS: >49 mL/min Normal 70-79 YRS: >42 mL/min Normal 80 and above >35 mL/min Normal FEMALE GRF INTERPRETATION: 20-39 YRS: >60 mL/min Normal 40-49 YRS: >58 mL/min Normal 50-59 YRS: >51 mL/min Normal 60-69 YRS: >45 mL/min Normal 70-79 YRS: >39 mL/min Normal 80 and above >32 mL/min Normal BUN 27 mg/dL 8-23 Above high normal [facility] CHRONIC KIDNEY DISEASE STAGING PER NKF: MALE GFR INTERPRETATION: 20-49 YRS: >60 mL/min Normal 50-59 YRS: >56 mL/min Normal 60-69 YRS: >49 mL/min Normal 70-79 YRS: >42 mL/min Normal 80 and above >35 mL/min Normal FEMALE GRF INTERPRETATION: 20-39 YRS: >60 mL/min Normal 40-49 YRS: >58 mL/min Normal 50-59 YRS: >51 mL/min Normal 60-69 YRS: >45 mL/min Normal 70-79 YRS: >39 mL/min Normal 80 and above >32 mL/min Normal BUN/Creatinine Ratio 14.5 Calc MEDENT ([facility] CHRONIC KIDNEY DISEASE STAGING PER NKF: MALE GFR INTERPRETATION: 20-49 YRS: >60 mL/min Normal 50-59 YRS: >56 mL/min Normal 60-69 YRS: >49 mL/min Normal 70-79 YRS: >42 mL/min Normal 80 and above >35 mL/min Normal FEMALE GRF INTERPRETATION: 20-39 YRS: >60 mL/min Normal 40-49 YRS: >58 mL/min Normal 50-59 YRS: >51 mL/min Normal 60-69 YRS: >45 mL/min Normal 70-79 YRS: >39 mL/min Normal 80 and above >32 mL/min Normal Na 140 mmol/L 136-145 [facility] CHRONIC KIDNEY DISEASE STAGING PER NKF: MALE GFR INTERPRETATION: 20-49 YRS: >60 mL/min Normal 50-59 YRS: >56 mL/min Normal 60-69 YRS: >49 mL/min Normal 70-79 YRS: >42 mL/min Normal 80 and above >35 mL/min Normal FEMALE GRF INTERPRETATION: 20-39 YRS: >60 mL/min Normal 40-49 YRS: >58 mL/min Normal 50-59 YRS: >51 mL/min Normal 60-69 YRS: >45 mL/min Normal 70-79 YRS: >39 mL/min Normal 80 and above >32 mL/min Normal CA 9.2 mg/dL 8.6-10.2 [facility] ([facility] CHRONIC KIDNEY DISEASE STAGING PER NKF: MALE GFR INTERPRETATION: 20-49 YRS: >60 mL/min Normal 50-59 YRS: >56 mL/min Normal 60-69 YRS: >49 mL/min Normal 70-79 YRS: >42 mL/min Normal 80 and above >35 mL/min Normal FEMALE GRF INTERPRETATION: 20-39 YRS: >60 mL/min Normal 40-49 YRS: >58 mL/min Normal 50-59 YRS: >51 mL/min Normal 60-69 YRS: >45 mL/min Normal 70-79 YRS: >39 mL/min Normal 80 and above >32 mL/min Normal Co2 29.4 mmol/L 22.0-29.0 Above high normal [facility] ([facility] CHRONIC KIDNEY DISEASE STAGING PER NKF: MALE GFR INTERPRETATION: 20-49 YRS: >60 mL/min Normal 50-59 YRS: >56 mL/min Normal 60-69 YRS: >49 mL/min Normal 70-79 YRS: >42 mL/min Normal 80 and above >35 mL/min Normal FEMALE GRF INTERPRETATION: 20-39 YRS: >60 mL/min Normal 40-49 YRS: >58 mL/min Normal 50-59 YRS: >51 mL/min Normal 60-69 YRS: >45 mL/min Normal 70-79 YRS: >39 mL/min Normal 80 and above >32 mL/min Normal K 4.8 mmol/L 3.5-5.1 [facility] ([facility] CHRONIC KIDNEY DISEASE STAGING PER NKF: MALE GFR INTERPRETATION: 20-49 YRS: >60 mL/min Normal 50-59 YRS: >56 mL/min Normal 60-69 YRS: >49 mL/min Normal 70-79 YRS: >42 mL/min Normal 80 and above >35 mL/min Normal FEMALE GRF INTERPRETATION: 20-39 YRS: >60 mL/min Normal 40-49 YRS: >58 mL/min Normal 50-59 YRS: >51 mL/min Normal 60-69 YRS: >45 mL/min Normal 70-79 YRS: >39 mL/min Normal 80 and above >32 mL/min Normal Anion Gap 14 mmol/L DAWNA ([facility] CHRONIC KIDNEY DISEASE STAGING PER NKF: MALE GFR INTERPRETATION: 20-49 YRS: >60 mL/min Normal 50-59 YRS: >56 mL/min Normal 60-69 YRS: >49 mL/min Normal 70-79 YRS: >42 mL/min Normal 80 and above >35 mL/min Normal FEMALE GRF INTERPRETATION: 20-39 YRS: >60 mL/min Normal 40-49 YRS: >58 mL/min Normal 50-59 YRS: >51 mL/min Normal 60-69 YRS: >45 mL/min Normal 70-79 YRS: >39 mL/min Normal 80 and above >32 mL/min Normal eGFR 36 # DAWNA ( [facility] CHRONIC KIDNEY DISEASE STAGING PER NKF: MALE GFR INTERPRETATION: 20-49 YRS: >60 mL/min Normal 50-59 YRS: >56 mL/min Normal 60-69 YRS: >49 mL/min Normal 70-79 YRS: >42 mL/min Normal 80 and above >35 mL/min Normal FEMALE GRF INTERPRETATION: 20-39 YRS: >60 mL/min Normal 40-49 YRS: >58 mL/min Normal 50-59 YRS: >51 mL/min Normal 60-69 YRS: >45 mL/min Normal 70-79 YRS: >39 mL/min Normal 80 and above >32 mL/min Normal CL 101.1 mmol/L 98.0-107.0 DAWNA ([facility] CHRONIC KIDNEY DISEASE STAGING PER NKF: MALE GFR INTERPRETATION: 20-49 YRS: >60 mL/min Normal 50-59 YRS: >56 mL/min Normal 60-69 YRS: >49 mL/min Normal 70-79 YRS: >42 mL/min Normal 80 and above >35 mL/min Normal FEMALE GRF INTERPRETATION: 20-39 YRS: >60 mL/min Normal 40-49 YRS: >58 mL/min Normal 50-59 YRS: >51 mL/min Normal 60-69 YRS: >45 mL/min Normal 70-79 YRS: >39 mL/min Normal 80 and above >32 mL/min Normal eGFR Non-Afr. Nicaraguan 31 # [facility] ([facility] CHRONIC KIDNEY DISEASE STAGING PER NKF: MALE GFR INTERPRETATION: 20-49 YRS: >60 mL/min Normal 50-59 YRS: >56 mL/min Normal 60-69 YRS: >49 mL/min Normal 70-79 YRS: >42 mL/min Normal 80 and above >35 mL/min Normal FEMALE GRF INTERPRETATION: 20-39 YRS: >60 mL/min Normal 40-49 YRS: >58 mL/min Normal 50-59 YRS: >51 mL/min Normal 60-69 YRS: >45 mL/min Normal 70-79 YRS: >39 mL/min Normal 80 and above >32 mL/min Normal ID Date Data Source [id number] 04/05/2019 03:56:00 PM EST [facility] ([facility] Name Value Range Interpretation Code Description Data Pennie rce(s) Supporting Document(s) BUN 14 mg/dL 8 [facility] ([facility] CHRONIC KIDNEY DISEASE STAGING PER NKF: MALE GFR INTERPRETATION: 20-49 YRS: >60 mL/min Normal 50-59 YRS: >56 mL/min Normal 60-69 YRS: >49 mL/min Normal 70-79 YRS: >42 mL/min Normal 80 and above >35 mL/min Normal FEMALE GRF INTERPRETATION: 20-39 YRS: >60 mL/min Normal 40-49 YRS: >58 mL/min Normal 50-59 YRS: >51 mL/min Normal 60-69 YRS: >45 mL/min Normal 70-79 YRS: >39 mL/min Normal 80 and above >32 mL/min NormalNORMAL RANGES Age WBC RBC HGB HCT MCV PLT Adult M 4.1-10.9 4.20-6.30 12.0-18.0 37.0-51.0 80-97 140-440 Adult F 4.1-10.9 4.04-5.48 12.0-18.0 37.0-51.0 80-97 140-440 0- 1 Yr 5.0-20.0 3.9-5.9 15-18 MV: 44 MV: 91 MV: 277 2-9 Yr. 6.0-17.0 3.8-5.4 11-13 MV: 37 MV: 78 MV: 300 10 Yrs. 5.0-13.0 3.8-5.4 12-15 MV: 39 MV: 80 MV: 250 NOTE: * FOR ADULT BLACK MALES AND FEMALES, NORMAL WBC IS 2.9-7.7 K/ML * FOR ADULT BLACK MALES AND FEMALES, NORMAL RBC,HGB, AND HCT IS 5% LESS SOURCE FOR DATA: [employer] DYN 1800 OPERATION MANUAL( AUTOMATED BLOOD COUNTS AND DIFF.) APPENDIX B-3 Glu 153 mg/dL 70-110 [facility] ([facility]) CHRONIC KIDNEY DISEASE STAGING PER NKF: MALE GFR INTERPRETATION: 20-49 YRS: >60 mL/min Normal 50-59 YRS: >56 mL/min Normal 60-69 YRS: >49 mL/min Normal 70-79 YRS: >42 mL/min Normal 80 and above >35 mL/min Normal FEMALE GRF INTERPRETATION: 20-39 YRS: >60 mL/min Normal 40-49 YRS: >58 mL/min Normal 50-59 YRS: >51 mL/min Normal 60-69 YRS: >45 mL/min Normal 70-79 YRS: >39 mL/min Normal 80 and above >32 mL/min NormalNORMAL RANGES Age WBC RBC HGB HCT MCV PLT Adult M 4.1-10.9 4.20-6.30 12.0-18.0 37.0-51.0 80-97 140-440 Adult F 4.1-10.9 4.04-5.48 12.0-18.0 37.0-51.0 80-97 140-440 0- 1 Yr 5.0-20.0 3.9-5.9 15-18 MV: 44 MV: 91 MV: 277 2-9 Yr. 6.0-17.0 3.8-5.4 11-13 MV: 37 MV: 78 MV: 300 10 Yrs. 5.0-13.0 3.8-5.4 12-15 MV: 39 MV: 80 MV: 250 NOTE: * FOR ADULT BLACK MALES AND FEMALES, NORMAL WBC IS 2.9-7.7 K/ML * FOR ADULT BLACK MALES AND FEMALES, NORMAL RBC,HGB, AND HCT IS 5% LESS SOURCE FOR DATA: [employer] 1800 OPERATION MANUAL( AUTOMATED BLOOD COUNTS AND DIFF.) APPENDIX B-3 Urea nitrogen/Creatinine [Mass Ratio] in Serum or Plasma 7.8 [facility] ([facility]) CHRONIC KIDNEY DISEASE STAGING PER NKF: MALE GFR INTERPRETATION: 20-49 YRS: >60 mL/min Normal 50-59 YRS: >56 mL/min Normal 60-69 YRS: >49 mL/min Normal 70-79 YRS: >42 mL/min Normal 80 and above >35 mL/min Normal FEMALE GRF INTERPRETATION: 20-39 YRS: >60 mL/min Normal 40-49 YRS: >58 mL/min Normal 50-59 YRS: >51 mL/min Normal 60-69 YRS: >45 mL/min Normal 70-79 YRS: >39 mL/min Normal 80 and above >32 mL/min NormalNORMAL RANGES Age WBC RBC HGB HCT MCV PLT Adult M 4.1-10.9 4.20-6.30 12.0-18.0 37.0-51.0 80-97 140-440 Adult F 4.1-10.9 4.04-5.48 12.0-18.0 37.0-51.0 80-97 140-440 0- 1 Yr 5.0-20.0 3.9-5.9 15-18 MV: 44 MV: 91 MV: 277 2-9 Yr. 6.0-17.0 3.8-5.4 11-13 MV: 37 MV: 78 MV: 300 10 Yrs. 5.0-13.0 3.8-5.4 12-15 MV: 39 MV: 80 MV: 250 NOTE: * FOR ADULT BLACK MALES AND FEMALES, NORMAL WBC IS 2.9-7.7 K/ML * FOR ADULT BLACK MALES AND FEMALES, NORMAL RBC,HGB, AND HCT IS 5% LESS SOURCE FOR DATA: [employer] DYN 1800 OPERATION MANUAL( AUTOMATED BLOOD COUNTS AND DIFF.) APPENDIX B-3 Creat 1.8 mg/dL 0.7-1.2 [facility] CHRONIC KIDNEY DISEASE STAGING PER NKF: MALE GFR INTERPRETATION: 20-49 YRS: >60 mL/min Normal 50-59 YRS: >56 mL/min Normal 60-69 YRS: >49 mL/min Normal 70-79 YRS: >42 mL/min Normal 80 and above >35 mL/min Normal FEMALE GRF INTERPRETATION: 20-39 YRS: >60 mL/min Normal 40-49 YRS: >58 mL/min Normal 50-59 YRS: >51 mL/min Normal 60-69 YRS: >45 mL/min Normal 70-79 YRS: >39 mL/min Normal 80 and above >32 mL/min NormalNORMAL RANGES Age WBC RBC HGB HCT MCV PLT Adult M 4.1-10.9 4.20-6.30 12.0-18.0 37.0-51.0 80-97 140-440 Adult F 4.1-10.9 4.04-5.48 12.0-18.0 37.0-51.0 80-97 140-440 0- 1 Yr 5.0-20.0 3.9-5.9 15-18 MV: 44 MV: 91 MV: 277 2-9 Yr. 6.0-17.0 3.8-5.4 11-13 MV: 37 MV: 78 MV: 300 10 Yrs. 5.0-13.0 3.8-5.4 12-15 MV: 39 MV: 80 MV: 250 NOTE: * FOR ADULT BLACK MALES AND FEMALES, NORMAL WBC IS 2.9-7.7 K/ML * FOR ADULT BLACK MALES AND FEMALES, NORMAL RBC,HGB, AND HCT IS 5% LESS SOURCE FOR DATA: T[employer]DY DYN 1800 OPERATION MANUAL( AUTOMATED BLOOD COUNTS AND DIFF.) APPENDIX B-3 Co2 29.5 mmol/L 22.0-29.0 [facility] ([facility]) CHRONIC KIDNEY DISEASE STAGING PER NKF: MALE GFR INTERPRETATION: 20-49 YRS: >60 mL/min Normal 50-59 YRS: >56 mL/min Normal 60-69 YRS: >49 mL/min Normal 70-79 YRS: >42 mL/min Normal 80 and above >35 mL/min Normal FEMALE GRF INTERPRETATION: 20-39 YRS: >60 mL/min Normal 40-49 YRS: >58 mL/min Normal 50-59 YRS: >51 mL/min Normal 60-69 YRS: >45 mL/min Normal 70-79 YRS: >39 mL/min Normal 80 and above >32 mL/min NormalNORMAL RANGES Age WBC RBC HGB HCT MCV PLT Adult M 4.1-10.9 4.20-6.30 12.0-18.0 37.0-51.0 80-97 140-440 Adult F 4.1-10.9 4.04-5.48 12.0-18.0 37.0-51.0 80-97 140-440 0- 1 Yr 5.0-20.0 3.9-5.9 15-18 MV: 44 MV: 91 MV: 277 2-9 Yr. 6.0-17.0 3.8-5.4 11-13 MV: 37 MV: 78 MV: 300 10 Yrs. 5.0-13.0 3.8-5.4 12-15 MV: 39 MV: 80 MV: 250 NOTE: * FOR ADULT BLACK MALES AND FEMALES, NORMAL WBC IS 2.9-7.7 K/ML * FOR ADULT BLACK MALES AND FEMALES, NORMAL RBC,HGB, AND HCT IS 5% LESS SOURCE FOR DATA: T[employer]DY DYN 1800 OPERATION MANUAL( AUTOMATED BLOOD COUNTS AND DIFF.) APPENDIX B-3 Na 140 mmol/L 136-145 [facility] CHRONIC KIDNEY DISEASE STAGING PER NKF: MALE GFR INTERPRETATION: 20-49 YRS: >60 mL/min Normal 50-59 YRS: >56 mL/min Normal 60-69 YRS: >49 mL/min Normal 70-79 YRS: >42 mL/min Normal 80 and above >35 mL/min Normal FEMALE GRF INTERPRETATION: 20-39 YRS: >60 mL/min Normal 40-49 YRS: >58 mL/min Normal 50-59 YRS: >51 mL/min Normal 60-69 YRS: >45 mL/min Normal 70-79 YRS: >39 mL/min Normal 80 and above >32 mL/min NormalNORMAL RANGES Age WBC RBC HGB HCT MCV PLT Adult M 4.1-10.9 4.20-6.30 12.0-18.0 37.0-51.0 80-97 140-440 Adult F 4.1-10.9 4.04-5.48 12.0-18.0 37.0-51.0 80-97 140-440 0- 1 Yr 5.0-20.0 3.9-5.9 15-18 MV: 44 MV: 91 MV: 277 2-9 Yr. 6.0-17.0 3.8-5.4 11-13 MV: 37 MV: 78 MV: 300 10 Yrs. 5.0-13.0 3.8-5.4 12-15 MV: 39 MV: 80 MV: 250 NOTE: * FOR ADULT BLACK MALES AND FEMALES, NORMAL WBC IS 2.9-7.7 K/ML * FOR ADULT BLACK MALES AND FEMALES, NORMAL RBC,HGB, AND HCT IS 5% LESS SOURCE FOR DATA: [employer]DY DYN 1800 OPERATION MANUAL( AUTOMATED BLOOD COUNTS AND DIFF.) APPENDIX B-3 CA 8.8 mg/dL 8.6-10.2 [facility] CHRONIC KIDNEY DISEASE STAGING PER NKF: MALE GFR INTERPRETATION: 20-49 YRS: >60 mL/min Normal 50-59 YRS: >56 mL/min Normal 60-69 YRS: >49 mL/min Normal 70-79 YRS: >42 mL/min Normal 80 and above >35 mL/min Normal FEMALE GRF INTERPRETATION: 20-39 YRS: >60 mL/min Normal 40-49 YRS: >58 mL/min Normal 50-59 YRS: >51 mL/min Normal 60-69 YRS: >45 mL/min Normal 70-79 YRS: >39 mL/min Normal 80 and above >32 mL/min NormalNORMAL RANGES Age WBC RBC HGB HCT MCV PLT Adult M 4.1-10.9 4.20-6.30 12.0-18.0 37.0-51.0 80-97 140-440 Adult F 4.1-10.9 4.04-5.48 12.0-18.0 37.0-51.0 80-97 140-440 0- 1 Yr 5.0-20.0 3.9-5.9 15-18 MV: 44 MV: 91 MV: 277 2-9 Yr. 6.0-17.0 3.8-5.4 11-13 MV: 37 MV: 78 MV: 300 10 Yrs. 5.0-13.0 3.8-5.4 12-15 MV: 39 MV: 80 MV: 250 NOTE: * FOR ADULT BLACK MALES AND FEMALES, NORMAL WBC IS 2.9-7.7 K/ML * FOR ADULT BLACK MALES AND FEMALES, NORMAL RBC,HGB, AND HCT IS 5% LESS SOURCE FOR DATA: [employer]DY DYN 1800 OPERATION MANUAL( AUTOMATED BLOOD COUNTS AND DIFF.) APPENDIX B-3 Anion gap in Serum or Plasma 16 mmol/L [facility] ([facility]) CHRONIC KIDNEY DISEASE STAGING PER NKF: MALE GFR INTERPRETATION: 20-49 YRS: >60 mL/min Normal 50-59 YRS: >56 mL/min Normal 60-69 YRS: >49 mL/min Normal 70-79 YRS: >42 mL/min Normal 80 and above >35 mL/min Normal FEMALE GRF INTERPRETATION: 20-39 YRS: >60 mL/min Normal 40-49 YRS: >58 mL/min Normal 50-59 YRS: >51 mL/min Normal 60-69 YRS: >45 mL/min Normal 70-79 YRS: >39 mL/min Normal 80 and above >32 mL/min NormalNORMAL RANGES Age WBC RBC HGB HCT MCV PLT Adult M 4.1-10.9 4.20-6.30 12.0-18.0 37.0-51.0 80-97 140-440 Adult F 4.1-10.9 4.04-5.48 12.0-18.0 37.0-51.0 80-97 140-440 0- 1 Yr 5.0-20.0 3.9-5.9 15-18 MV: 44 MV: 91 MV: 277 2-9 Yr. 6.0-17.0 3.8-5.4 11-13 MV: 37 MV: 78 MV: 300 10 Yrs. 5.0-13.0 3.8-5.4 12-15 MV: 39 MV: 80 MV: 250 NOTE: * FOR ADULT BLACK MALES AND FEMALES, NORMAL WBC IS 2.9-7.7 K/ML * FOR ADULT BLACK MALES AND FEMALES, NORMAL RBC,HGB, AND HCT IS 5% LESS SOURCE FOR DATA: [employer] DYN 1800 OPERATION MANUAL( AUTOMATED BLOOD COUNTS AND DIFF.) APPENDIX B-3 K 4.9 mmol/L 3.5-5.1 [facility] ([facility]) CHRONIC KIDNEY DISEASE STAGING PER NKF: MALE GFR INTERPRETATION: 20-49 YRS: >60 mL/min Normal 50-59 YRS: >56 mL/min Normal 60-69 YRS: >49 mL/min Normal 70-79 YRS: >42 mL/min Normal 80 and above >35 mL/min Normal FEMALE GRF INTERPRETATION: 20-39 YRS: >60 mL/min Normal 40-49 YRS: >58 mL/min Normal 50-59 YRS: >51 mL/min Normal 60-69 YRS: >45 mL/min Normal 70-79 YRS: >39 mL/min Normal 80 and above >32 mL/min NormalNORMAL RANGES Age WBC RBC HGB HCT MCV PLT Adult M 4.1-10.9 4.20-6.30 12.0-18.0 37.0-51.0 80-97 140-440 Adult F 4.1-10.9 4.04-5.48 12.0-18.0 37.0-51.0 80-97 140-440 0- 1 Yr 5.0-20.0 3.9-5.9 15-18 MV: 44 MV: 91 MV: 277 2-9 Yr. 6.0-17.0 3.8-5.4 11-13 MV: 37 MV: 78 MV: 300 10 Yrs. 5.0-13.0 3.8-5.4 12-15 MV: 39 MV: 80 MV: 250 NOTE: * FOR ADULT BLACK MALES AND FEMALES, NORMAL WBC IS 2.9-7.7 K/ML * FOR ADULT BLACK MALES AND FEMALES, NORMAL RBC,HGB, AND HCT IS 5% LESS SOURCE FOR DATA: [employer] 1800 OPERATION MANUAL( AUTOMATED BLOOD COUNTS AND DIFF.) APPENDIX B-3 CL 99.8 mmol/L 98.0-107.0 [facility] ([facility]) CHRONIC KIDNEY DISEASE STAGING PER NKF: MALE GFR INTERPRETATION: 20-49 YRS: >60 mL/min Normal 50-59 YRS: >56 mL/min Normal 60-69 YRS: >49 mL/min Normal 70-79 YRS: >42 mL/min Normal 80 and above >35 mL/min Normal FEMALE GRF INTERPRETATION: 20-39 YRS: >60 mL/min Normal 40-49 YRS: >58 mL/min Normal 50-59 YRS: >51 mL/min Normal 60-69 YRS: >45 mL/min Normal 70-79 YRS: >39 mL/min Normal 80 and above >32 mL/min NormalNORMAL RANGES Age WBC RBC HGB HCT MCV PLT Adult M 4.1-10.9 4.20-6.30 12.0-18.0 37.0-51.0 80-97 140-440 Adult F 4.1-10.9 4.04-5.48 12.0-18.0 37.0-51.0 80-97 140-440 0- 1 Yr 5.0-20.0 3.9-5.9 15-18 MV: 44 MV: 91 MV: 277 2-9 Yr. 6.0-17.0 3.8-5.4 11-13 MV: 37 MV: 78 MV: 300 10 Yrs. 5.0-13.0 3.8-5.4 12-15 MV: 39 MV: 80 MV: 250 NOTE: * FOR ADULT BLACK MALES AND FEMALES, NORMAL WBC IS 2.9-7.7 K/ML * FOR ADULT BLACK MALES AND FEMALES, NORMAL RBC,HGB, AND HCT IS 5% LESS SOURCE FOR DATA: [employer] 1800 OPERATION MANUAL( AUTOMATED BLOOD COUNTS AND DIFF.) APPENDIX B-3 eGFR 39 # [facility] ( [facility]) CHRONIC KIDNEY DISEASE STAGING PER NKF: MALE GFR INTERPRETATION: 20-49 YRS: >60 mL/min Normal 50-59 YRS: >56 mL/min Normal 60-69 YRS: >49 mL/min Normal 70-79 YRS: >42 mL/min Normal 80 and above >35 mL/min Normal FEMALE GRF INTERPRETATION: 20-39 YRS: >60 mL/min Normal 40-49 YRS: >58 mL/min Normal 50-59 YRS: >51 mL/min Normal 60-69 YRS: >45 mL/min Normal 70-79 YRS: >39 mL/min Normal 80 and above >32 mL/min NormalNORMAL RANGES Age WBC RBC HGB HCT MCV PLT Adult M 4.1-10.9 4.20-6.30 12.0-18.0 37.0-51.0 80-97 140-440 Adult F 4.1-10.9 4.04-5.48 12.0-18.0 37.0-51.0 80-97 140-440 0- 1 Yr 5.0-20.0 3.9-5.9 15-18 MV: 44 MV: 91 MV: 277 2-9 Yr. 6.0-17.0 3.8-5.4 11-13 MV: 37 MV: 78 MV: 300 10 Yrs. 5.0-13.0 3.8-5.4 12-15 MV: 39 MV: 80 MV: 250 NOTE: * FOR ADULT BLACK MALES AND FEMALES, NORMAL WBC IS 2.9-7.7 K/ML * FOR ADULT BLACK MALES AND FEMALES, NORMAL RBC,HGB, AND HCT IS 5% LESS SOURCE FOR DATA: [employer] 1800 OPERATION MANUAL( AUTOMATED BLOOD COUNTS AND DIFF.) APPENDIX B-3 eGFR Non-Afr. Nicaraguan 34 # [facility] ([facility]) CHRONIC KIDNEY DISEASE STAGING PER NKF: MALE GFR INTERPRETATION: 20-49 YRS: >60 mL/min Normal 50-59 YRS: >56 mL/min Normal 60-69 YRS: >49 mL/min Normal 70-79 YRS: >42 mL/min Normal 80 and above >35 mL/min Normal FEMALE GRF INTERPRETATION: 20-39 YRS: >60 mL/min Normal 40-49 YRS: >58 mL/min Normal 50-59 YRS: >51 mL/min Normal 60-69 YRS: >45 mL/min Normal 70-79 YRS: >39 mL/min Normal 80 and above >32 mL/min NormalNORMAL RANGES Age WBC RBC HGB HCT MCV PLT Adult M 4.1-10.9 4.20-6.30 12.0-18.0 37.0-51.0 80-97 140-440 Adult F 4.1-10.9 4.04-5.48 12.0-18.0 37.0-51.0 80-97 140-440 0- 1 Yr 5.0-20.0 3.9-5.9 15-18 MV: 44 MV: 91 MV: 277 2-9 Yr. 6.0-17.0 3.8-5.4 11-13 MV: 37 MV: 78 MV: 300 10 Yrs. 5.0-13.0 3.8-5.4 12-15 MV: 39 MV: 80 MV: 250 NOTE: * FOR ADULT BLACK MALES AND FEMALES, NORMAL WBC IS 2.9-7.7 K/ML * FOR ADULT BLACK MALES AND FEMALES, NORMAL RBC,HGB, AND HCT IS 5% LESS SOURCE FOR DATA: [employer]eds 1800 OPERATION MANUAL( AUTOMATED BLOOD COUNTS AND DIFF.) APPENDIX B-3 RBC 3.50 10E6/uL 4.20-6.30 [facility] CHRONIC KIDNEY DISEASE STAGING PER NKF: MALE GFR INTERPRETATION: 20-49 YRS: >60 mL/min Normal 50-59 YRS: >56 mL/min Normal 60-69 YRS: >49 mL/min Normal 70-79 YRS: >42 mL/min Normal 80 and above >35 mL/min Normal FEMALE GRF INTERPRETATION: 20-39 YRS: >60 mL/min Normal 40-49 YRS: >58 mL/min Normal 50-59 YRS: >51 mL/min Normal 60-69 YRS: >45 mL/min Normal 70-79 YRS: >39 mL/min Normal 80 and above >32 mL/min NormalNORMAL RANGES Age WBC RBC HGB HCT MCV PLT Adult M 4.1-10.9 4.20-6.30 12.0-18.0 37.0-51.0 80-97 140-440 Adult F 4.1-10.9 4.04-5.48 12.0-18.0 37.0-51.0 80-97 140-440 0- 1 Yr 5.0-20.0 3.9-5.9 15-18 MV: 44 MV: 91 MV: 277 2-9 Yr. 6.0-17.0 3.8-5.4 11-13 MV: 37 MV: 78 MV: 300 10 Yrs. 5.0-13.0 3.8-5.4 12-15 MV: 39 MV: 80 MV: 250 NOTE: * FOR ADULT BLACK MALES AND FEMALES, NORMAL WBC IS 2.9-7.7 K/ML * FOR ADULT BLACK MALES AND FEMALES, NORMAL RBC,HGB, AND HCT IS 5% LESS SOURCE FOR DATA: [employer] DYN 1800 OPERATION MANUAL( AUTOMATED BLOOD COUNTS AND DIFF.) APPENDIX B-3 WBC 10.6 10E3/uL 4.1-10.9 [facility] ([facility]) CHRONIC KIDNEY DISEASE STAGING PER NKF: MALE GFR INTERPRETATION: 20-49 YRS: >60 mL/min Normal 50-59 YRS: >56 mL/min Normal 60-69 YRS: >49 mL/min Normal 70-79 YRS: >42 mL/min Normal 80 and above >35 mL/min Normal FEMALE GRF INTERPRETATION: 20-39 YRS: >60 mL/min Normal 40-49 YRS: >58 mL/min Normal 50-59 YRS: >51 mL/min Normal 60-69 YRS: >45 mL/min Normal 70-79 YRS: >39 mL/min Normal 80 and above >32 mL/min NormalNORMAL RANGES Age WBC RBC HGB HCT MCV PLT Adult M 4.1-10.9 4.20-6.30 12.0-18.0 37.0-51.0 80-97 140-440 Adult F 4.1-10.9 4.04-5.48 12.0-18.0 37.0-51.0 80-97 140-440 0- 1 Yr 5.0-20.0 3.9-5.9 15-18 MV: 44 MV: 91 MV: 277 2-9 Yr. 6.0-17.0 3.8-5.4 11-13 MV: 37 MV: 78 MV: 300 10 Yrs. 5.0-13.0 3.8-5.4 12-15 MV: 39 MV: 80 MV: 250 NOTE: * FOR ADULT BLACK MALES AND FEMALES, NORMAL WBC IS 2.9-7.7 K/ML * FOR ADULT BLACK MALES AND FEMALES, NORMAL RBC,HGB, AND HCT IS 5% LESS SOURCE FOR DATA: TEDDY DYN 1800 OPERATION MANUAL( AUTOMATED BLOOD COUNTS AND DIFF.) APPENDIX B-3 HGB 10.2 g/dL 12.0-18.0 [facility] ([facility] CHRONIC KIDNEY DISEASE STAGING PER NKF: MALE GFR INTERPRETATION: 20-49 YRS: >60 mL/min Normal 50-59 YRS: >56 mL/min Normal 60-69 YRS: >49 mL/min Normal 70-79 YRS: >42 mL/min Normal 80 and above >35 mL/min Normal FEMALE GRF INTERPRETATION: 20-39 YRS: >60 mL/min Normal 40-49 YRS: >58 mL/min Normal 50-59 YRS: >51 mL/min Normal 60-69 YRS: >45 mL/min Normal 70-79 YRS: >39 mL/min Normal 80 and above >32 mL/min NormalNORMAL RANGES Age WBC RBC HGB HCT MCV PLT Adult M 4.1-10.9 4.20-6.30 12.0-18.0 37.0-51.0 80-97 140-440 Adult F 4.1-10.9 4.04-5.48 12.0-18.0 37.0-51.0 80-97 140-440 0- 1 Yr 5.0-20.0 3.9-5.9 15-18 MV: 44 MV: 91 MV: 277 2-9 Yr. 6.0-17.0 3.8-5.4 11-13 MV: 37 MV: 78 MV: 300 10 Yrs. 5.0-13.0 3.8-5.4 12-15 MV: 39 MV: 80 MV: 250 NOTE: * FOR ADULT BLACK MALES AND FEMALES, NORMAL WBC IS 2.9-7.7 K/ML * FOR ADULT BLACK MALES AND FEMALES, NORMAL RBC,HGB, AND HCT IS 5% LESS SOURCE FOR DATA: 22seeds 1800 OPERATION MANUAL( AUTOMATED BLOOD COUNTS AND DIFF.) APPENDIX B-3 HCT 31.5 % 37.0-51.0 [facility] ([facility]) CHRONIC KIDNEY DISEASE STAGING PER NKF: MALE GFR INTERPRETATION: 20-49 YRS: >60 mL/min Normal 50-59 YRS: >56 mL/min Normal 60-69 YRS: >49 mL/min Normal 70-79 YRS: >42 mL/min Normal 80 and above >35 mL/min Normal FEMALE GRF INTERPRETATION: 20-39 YRS: >60 mL/min Normal 40-49 YRS: >58 mL/min Normal 50-59 YRS: >51 mL/min Normal 60-69 YRS: >45 mL/min Normal 70-79 YRS: >39 mL/min Normal 80 and above >32 mL/min NormalNORMAL RANGES Age WBC RBC HGB HCT MCV PLT Adult M 4.1-10.9 4.20-6.30 12.0-18.0 37.0-51.0 80-97 140-440 Adult F 4.1-10.9 4.04-5.48 12.0-18.0 37.0-51.0 80-97 140-440 0- 1 Yr 5.0-20.0 3.9-5.9 15-18 MV: 44 MV: 91 MV: 277 2-9 Yr. 6.0-17.0 3.8-5.4 11-13 MV: 37 MV: 78 MV: 300 10 Yrs. 5.0-13.0 3.8-5.4 12-15 MV: 39 MV: 80 MV: 250 NOTE: * FOR ADULT BLACK MALES AND FEMALES, NORMAL WBC IS 2.9-7.7 K/ML * FOR ADULT BLACK MALES AND FEMALES, NORMAL RBC,HGB, AND HCT IS 5% LESS SOURCE FOR DATA: TEDDY DYN 1800 OPERATION MANUAL( AUTOMATED BLOOD COUNTS AND DIFF.) APPENDIX B-3 MCH 29.1 pg 26.0-32.0 [facility] CHRONIC KIDNEY DISEASE STAGING PER NKF: MALE GFR INTERPRETATION: 20-49 YRS: >60 mL/min Normal 50-59 YRS: >56 mL/min Normal 60-69 YRS: >49 mL/min Normal 70-79 YRS: >42 mL/min Normal 80 and above >35 mL/min Normal FEMALE GRF INTERPRETATION: 20-39 YRS: >60 mL/min Normal 40-49 YRS: >58 mL/min Normal 50-59 YRS: >51 mL/min Normal 60-69 YRS: >45 mL/min Normal 70-79 YRS: >39 mL/min Normal 80 and above >32 mL/min NormalNORMAL RANGES Age WBC RBC HGB HCT MCV PLT Adult M 4.1-10.9 4.20-6.30 12.0-18.0 37.0-51.0 80-97 140-440 Adult F 4.1-10.9 4.04-5.48 12.0-18.0 37.0-51.0 80-97 140-440 0- 1 Yr 5.0-20.0 3.9-5.9 15-18 MV: 44 MV: 91 MV: 277 2-9 Yr. 6.0-17.0 3.8-5.4 11-13 MV: 37 MV: 78 MV: 300 10 Yrs. 5.0-13.0 3.8-5.4 12-15 MV: 39 MV: 80 MV: 250 NOTE: * FOR ADULT BLACK MALES AND FEMALES, NORMAL WBC IS 2.9-7.7 K/ML * FOR ADULT BLACK MALES AND FEMALES, NORMAL RBC,HGB, AND HCT IS 5% LESS SOURCE FOR DATA: [employer] 1800 OPERATION MANUAL( AUTOMATED BLOOD COUNTS AND DIFF.) APPENDIX B-3 MCV 90.0 fL 80.0-97.0 [facility] ([facility]) CHRONIC KIDNEY DISEASE STAGING PER NKF: MALE GFR INTERPRETATION: 20-49 YRS: >60 mL/min Normal 50-59 YRS: >56 mL/min Normal 60-69 YRS: >49 mL/min Normal 70-79 YRS: >42 mL/min Normal 80 and above >35 mL/min Normal FEMALE GRF INTERPRETATION: 20-39 YRS: >60 mL/min Normal 40-49 YRS: >58 mL/min Normal 50-59 YRS: >51 mL/min Normal 60-69 YRS: >45 mL/min Normal 70-79 YRS: >39 mL/min Normal 80 and above >32 mL/min NormalNORMAL RANGES Age WBC RBC HGB HCT MCV PLT Adult M 4.1-10.9 4.20-6.30 12.0-18.0 37.0-51.0 80-97 140-440 Adult F 4.1-10.9 4.04-5.48 12.0-18.0 37.0-51.0 80-97 140-440 0- 1 Yr 5.0-20.0 3.9-5.9 15-18 MV: 44 MV: 91 MV: 277 2-9 Yr. 6.0-17.0 3.8-5.4 11-13 MV: 37 MV: 78 MV: 300 10 Yrs. 5.0-13.0 3.8-5.4 12-15 MV: 39 MV: 80 MV: 250 NOTE: * FOR ADULT BLACK MALES AND FEMALES, NORMAL WBC IS 2.9-7.7 K/ML * FOR ADULT BLACK MALES AND FEMALES, NORMAL RBC,HGB, AND HCT IS 5% LESS SOURCE FOR DATA: [employer] 1800 OPERATION MANUAL( AUTOMATED BLOOD COUNTS AND DIFF.) APPENDIX B-3 MCHC 32.4 g/dL 31.0-36.0 [facility] CHRONIC KIDNEY DISEASE STAGING PER NKF: MALE GFR INTERPRETATION: 20-49 YRS: >60 mL/min Normal 50-59 YRS: >56 mL/min Normal 60-69 YRS: >49 mL/min Normal 70-79 YRS: >42 mL/min Normal 80 and above >35 mL/min Normal FEMALE GRF INTERPRETATION: 20-39 YRS: >60 mL/min Normal 40-49 YRS: >58 mL/min Normal 50-59 YRS: >51 mL/min Normal 60-69 YRS: >45 mL/min Normal 70-79 YRS: >39 mL/min Normal 80 and above >32 mL/min NormalNORMAL RANGES Age WBC RBC HGB HCT MCV PLT Adult M 4.1-10.9 4.20-6.30 12.0-18.0 37.0-51.0 80-97 140-440 Adult F 4.1-10.9 4.04-5.48 12.0-18.0 37.0-51.0 80-97 140-440 0- 1 Yr 5.0-20.0 3.9-5.9 15-18 MV: 44 MV: 91 MV: 277 2-9 Yr. 6.0-17.0 3.8-5.4 11-13 MV: 37 MV: 78 MV: 300 10 Yrs. 5.0-13.0 3.8-5.4 12-15 MV: 39 MV: 80 MV: 250 NOTE: * FOR ADULT BLACK MALES AND FEMALES, NORMAL WBC IS 2.9-7.7 K/ML * FOR ADULT BLACK MALES AND FEMALES, NORMAL RBC,HGB, AND HCT IS 5% LESS SOURCE FOR DATA: [employer] 1800 OPERATION MANUAL( AUTOMATED BLOOD COUNTS AND DIFF.) APPENDIX B-3 PLT 155 10E3/uL 140-440 [facility] ([facility]) CHRONIC KIDNEY DISEASE STAGING PER NKF: MALE GFR INTERPRETATION: 20-49 YRS: >60 mL/min Normal 50-59 YRS: >56 mL/min Normal 60-69 YRS: >49 mL/min Normal 70-79 YRS: >42 mL/min Normal 80 and above >35 mL/min Normal FEMALE GRF INTERPRETATION: 20-39 YRS: >60 mL/min Normal 40-49 YRS: >58 mL/min Normal 50-59 YRS: >51 mL/min Normal 60-69 YRS: >45 mL/min Normal 70-79 YRS: >39 mL/min Normal 80 and above >32 mL/min NormalNORMAL RANGES Age WBC RBC HGB HCT MCV PLT Adult M 4.1-10.9 4.20-6.30 12.0-18.0 37.0-51.0 80-97 140-440 Adult F 4.1-10.9 4.04-5.48 12.0-18.0 37.0-51.0 80-97 140-440 0- 1 Yr 5.0-20.0 3.9-5.9 15-18 MV: 44 MV: 91 MV: 277 2-9 Yr. 6.0-17.0 3.8-5.4 11-13 MV: 37 MV: 78 MV: 300 10 Yrs. 5.0-13.0 3.8-5.4 12-15 MV: 39 MV: 80 MV: 250 NOTE: * FOR ADULT BLACK MALES AND FEMALES, NORMAL WBC IS 2.9-7.7 K/ML * FOR ADULT BLACK MALES AND FEMALES, NORMAL RBC,HGB, AND HCT IS 5% LESS SOURCE FOR DATA: [employer] 1800 OPERATION MANUAL( AUTOMATED BLOOD COUNTS AND DIFF.) APPENDIX B-3 RDW-CV 19.1 % 11.5-14.5 [facility] CHRONIC KIDNEY DISEASE STAGING PER NKF: MALE GFR INTERPRETATION: 20-49 YRS: >60 mL/min Normal 50-59 YRS: >56 mL/min Normal 60-69 YRS: >49 mL/min Normal 70-79 YRS: >42 mL/min Normal 80 and above >35 mL/min Normal FEMALE GRF INTERPRETATION: 20-39 YRS: >60 mL/min Normal 40-49 YRS: >58 mL/min Normal 50-59 YRS: >51 mL/min Normal 60-69 YRS: >45 mL/min Normal 70-79 YRS: >39 mL/min Normal 80 and above >32 mL/min NormalNORMAL RANGES Age WBC RBC HGB HCT MCV PLT Adult M 4.1-10.9 4.20-6.30 12.0-18.0 37.0-51.0 80-97 140-440 Adult F 4.1-10.9 4.04-5.48 12.0-18.0 37.0-51.0 80-97 140-440 0- 1 Yr 5.0-20.0 3.9-5.9 15-18 MV: 44 MV: 91 MV: 277 2-9 Yr. 6.0-17.0 3.8-5.4 11-13 MV: 37 MV: 78 MV: 300 10 Yrs. 5.0-13.0 3.8-5.4 12-15 MV: 39 MV: 80 MV: 250 NOTE: * FOR ADULT BLACK MALES AND FEMALES, NORMAL WBC IS 2.9-7.7 K/ML * FOR ADULT BLACK MALES AND FEMALES, NORMAL RBC,HGB, AND HCT IS 5% LESS SOURCE FOR DATA: [employer]YN 1800 OPERATION MANUAL( AUTOMATED BLOOD COUNTS AND DIFF.) APPENDIX B-3 Lym% Laboratory test result 10.0-58.5 Abnormal (applies to non-numeric results) [facility] ([facility]) CHRONIC KIDNEY DISEASE STAGING PER NKF: MALE GFR INTERPRETATION: 20-49 YRS: >60 mL/min Normal 50-59 YRS: >56 mL/min Normal 60-69 YRS: >49 mL/min Normal 70-79 YRS: >42 mL/min Normal 80 and above >35 mL/min Normal FEMALE GRF INTERPRETATION: 20-39 YRS: >60 mL/min Normal 40-49 YRS: >58 mL/min Normal 50-59 YRS: >51 mL/min Normal 60-69 YRS: >45 mL/min Normal 70-79 YRS: >39 mL/min Normal 80 and above >32 mL/min NormalNORMAL RANGES Age WBC RBC HGB HCT MCV PLT Adult M 4.1-10.9 4.20-6.30 12.0-18.0 37.0-51.0 80-97 140-440 Adult F 4.1-10.9 4.04-5.48 12.0-18.0 37.0-51.0 80-97 140-440 0- 1 Yr 5.0-20.0 3.9-5.9 15-18 MV: 44 MV: 91 MV: 277 2-9 Yr. 6.0-17.0 3.8-5.4 11-13 MV: 37 MV: 78 MV: 300 10 Yrs. 5.0-13.0 3.8-5.4 12-15 MV: 39 MV: 80 MV: 250 NOTE: * FOR ADULT BLACK MALES AND FEMALES, NORMAL WBC IS 2.9-7.7 K/ML * FOR ADULT BLACK MALES AND FEMALES, NORMAL RBC,HGB, AND HCT IS 5% LESS SOURCE FOR DATA: [employer] DYN 1800 OPERATION MANUAL( AUTOMATED BLOOD COUNTS AND DIFF.) APPENDIX B-3 Neut% Laboratory test result 37.0-92.0 Abnormal (applies to non-numeric results) [facility] ([facility]) CHRONIC KIDNEY DISEASE STAGING PER NKF: MALE GFR INTERPRETATION: 20-49 YRS: >60 mL/min Normal 50-59 YRS: >56 mL/min Normal 60-69 YRS: >49 mL/min Normal 70-79 YRS: >42 mL/min Normal 80 and above >35 mL/min Normal FEMALE GRF INTERPRETATION: 20-39 YRS: >60 mL/min Normal 40-49 YRS: >58 mL/min Normal 50-59 YRS: >51 mL/min Normal 60-69 YRS: >45 mL/min Normal 70-79 YRS: >39 mL/min Normal 80 and above >32 mL/min NormalNORMAL RANGES Age WBC RBC HGB HCT MCV PLT Adult M 4.1-10.9 4.20-6.30 12.0-18.0 37.0-51.0 80-97 140-440 Adult F 4.1-10.9 4.04-5.48 12.0-18.0 37.0-51.0 80-97 140-440 0- 1 Yr 5.0-20.0 3.9-5.9 15-18 MV: 44 MV: 91 MV: 277 2-9 Yr. 6.0-17.0 3.8-5.4 11-13 MV: 37 MV: 78 MV: 300 10 Yrs. 5.0-13.0 3.8-5.4 12-15 MV: 39 MV: 80 MV: 250 NOTE: * FOR ADULT BLACK MALES AND FEMALES, NORMAL WBC IS 2.9-7.7 K/ML * FOR ADULT BLACK MALES AND FEMALES, NORMAL RBC,HGB, AND HCT IS 5% LESS SOURCE FOR DATA: [employer] DYN 1800 OPERATION MANUAL( AUTOMATED BLOOD COUNTS AND DIFF.) APPENDIX B-3 MXD% Laboratory test result 0.1-24.0 Abnormal (applies to non-numeric results) [facility] ([facility]) CHRONIC KIDNEY DISEASE STAGING PER NKF: MALE GFR INTERPRETATION: 20-49 YRS: >60 mL/min Normal 50-59 YRS: >56 mL/min Normal 60-69 YRS: >49 mL/min Normal 70-79 YRS: >42 mL/min Normal 80 and above >35 mL/min Normal FEMALE GRF INTERPRETATION: 20-39 YRS: >60 mL/min Normal 40-49 YRS: >58 mL/min Normal 50-59 YRS: >51 mL/min Normal 60-69 YRS: >45 mL/min Normal 70-79 YRS: >39 mL/min Normal 80 and above >32 mL/min NormalNORMAL RANGES Age WBC RBC HGB HCT MCV PLT Adult M 4.1-10.9 4.20-6.30 12.0-18.0 37.0-51.0 80-97 140-440 Adult F 4.1-10.9 4.04-5.48 12.0-18.0 37.0-51.0 80-97 140-440 0- 1 Yr 5.0-20.0 3.9-5.9 15-18 MV: 44 MV: 91 MV: 277 2-9 Yr. 6.0-17.0 3.8-5.4 11-13 MV: 37 MV: 78 MV: 300 10 Yrs. 5.0-13.0 3.8-5.4 12-15 MV: 39 MV: 80 MV: 250 NOTE: * FOR ADULT BLACK MALES AND FEMALES, NORMAL WBC IS 2.9-7.7 K/ML * FOR ADULT BLACK MALES AND FEMALES, NORMAL RBC,HGB, AND HCT IS 5% LESS SOURCE FOR DATA: [employer] DYN 1800 OPERATION MANUAL( AUTOMATED BLOOD COUNTS AND DIFF.) APPENDIX B-3 Lym# Laboratory test result 0.6-4.1 Abnormal (applies to non -numeric results) [facility] ([facility]) CHRONIC KIDNEY DISEASE STAGING PER NKF: MALE GFR INTERPRETATION: 20-49 YRS: >60 mL/min Normal 50-59 YRS: >56 mL/min Normal 60-69 YRS: >49 mL/min Normal 70-79 YRS: >42 mL/min Normal 80 and above >35 mL/min Normal FEMALE GRF INTERPRETATION: 20-39 YRS: >60 mL/min Normal 40-49 YRS: >58 mL/min Normal 50-59 YRS: >51 mL/min Normal 60-69 YRS: >45 mL/min Normal 70-79 YRS: >39 mL/min Normal 80 and above >32 mL/min NormalNORMAL RANGES Age WBC RBC HGB HCT MCV PLT Adult M 4.1-10.9 4.20-6.30 12.0-18.0 37.0-51.0 80-97 140-440 Adult F 4.1-10.9 4.04-5.48 12.0-18.0 37.0-51.0 80-97 140-440 0- 1 Yr 5.0-20.0 3.9-5.9 15-18 MV: 44 MV: 91 MV: 277 2-9 Yr. 6.0-17.0 3.8-5.4 11-13 MV: 37 MV: 78 MV: 300 10 Yrs. 5.0-13.0 3.8-5.4 12-15 MV: 39 MV: 80 MV: 250 NOTE: * FOR ADULT BLACK MALES AND FEMALES, NORMAL WBC IS 2.9-7.7 K/ML * FOR ADULT BLACK MALES AND FEMALES, NORMAL RBC,HGB, AND HCT IS 5% LESS SOURCE FOR DATA: [employer] DYN 1800 OPERATION MANUAL( AUTOMATED BLOOD COUNTS AND DIFF.) APPENDIX B-3 Neutrophils [#/volume] in [place] by Manual count Laboratory test result 2.0-7.8 Abnormal (applies to non-numeric results) [facility] ([facility]) CHRONIC KIDNEY DISEASE STAGING PER NKF: MALE GFR INTERPRETATION: 20-49 YRS: >60 mL/min Normal 50-59 YRS: >56 mL/min Normal 60-69 YRS: >49 mL/min Normal 70-79 YRS: >42 mL/min Normal 80 and above >35 mL/min Normal FEMALE GRF INTERPRETATION: 20-39 YRS: >60 mL/min Normal 40-49 YRS: >58 mL/min Normal 50-59 YRS: >51 mL/min Normal 60-69 YRS: >45 mL/min Normal 70-79 YRS: >39 mL/min Normal 80 and above >32 mL/min NormalNORMAL RANGES Age WBC RBC HGB HCT MCV PLT Adult M 4.1-10.9 4.20-6.30 12.0-18.0 37.0-51.0 80-97 140-440 Adult F 4.1-10.9 4.04-5.48 12.0-18.0 37.0-51.0 80-97 140-440 0- 1 Yr 5.0-20.0 3.9-5.9 15-18 MV: 44 MV: 91 MV: 277 2-9 Yr. 6.0-17.0 3.8-5.4 11-13 MV: 37 MV: 78 MV: 300 10 Yrs. 5.0-13.0 3.8-5.4 12-15 MV: 39 MV: 80 MV: 250 NOTE: * FOR ADULT BLACK MALES AND FEMALES, NORMAL WBC IS 2.9-7.7 K/ML * FOR ADULT BLACK MALES AND FEMALES, NORMAL RBC,HGB, AND HCT IS 5% LESS SOURCE FOR DATA: [employer] DYN 1800 OPERATION MANUAL( AUTOMATED BLOOD COUNTS AND DIFF.) APPENDIX B-3 Comment Laboratory test result [facility] ([facility]) CHRONIC KIDNEY DISEASE STAGING PER NKF: MALE GFR INTERPRETATION: 20-49 YRS: >60 mL/min Normal 50-59 YRS: >56 mL/min Normal 60-69 YRS: >49 mL/min Normal 70-79 YRS: >42 mL/min Normal 80 and above >35 mL/min Normal FEMALE GRF INTERPRETATION: 20-39 YRS: >60 mL/min Normal 40-49 YRS: >58 mL/min Normal 50-59 YRS: >51 mL/min Normal 60-69 YRS: >45 mL/min Normal 70-79 YRS: >39 mL/min Normal 80 and above >32 mL/min NormalNORMAL RANGES Age WBC RBC HGB HCT MCV PLT Adult M 4.1-10.9 4.20-6.30 12.0-18.0 37.0-51.0 80-97 140-440 Adult F 4.1-10.9 4.04-5.48 12.0-18.0 37.0-51.0 80-97 140-440 0- 1 Yr 5.0-20.0 3.9-5.9 15-18 MV: 44 MV: 91 MV: 277 2-9 Yr. 6.0-17.0 3.8-5.4 11-13 MV: 37 MV: 78 MV: 300 10 Yrs. 5.0-13.0 3.8-5.4 12-15 MV: 39 MV: 80 MV: 250 NOTE: * FOR ADULT BLACK MALES AND FEMALES, NORMAL WBC IS 2.9-7.7 K/ML * FOR ADULT BLACK MALES AND FEMALES, NORMAL RBC,HGB, AND HCT IS 5% LESS SOURCE FOR DATA: [employer] 1800 OPERATION MANUAL( AUTOMATED BLOOD COUNTS AND DIFF.) APPENDIX B-3 MXD# Laboratory test result 0.0-1.8 Abnormal (applies to non -numeric results) DAWNA ([facility]) CHRONIC KIDNEY DISEASE STAGING PER NKF: MALE GFR INTERPRETATION: 20-49 YRS: >60 mL/min Normal 50-59 YRS: >56 mL/min Normal 60-69 YRS: >49 mL/min Normal 70-79 YRS: >42 mL/min Normal 80 and above >35 mL/min Normal FEMALE GRF INTERPRETATION: 20-39 YRS: >60 mL/min Normal 40-49 YRS: >58 mL/min Normal 50-59 YRS: >51 mL/min Normal 60-69 YRS: >45 mL/min Normal 70-79 YRS: >39 mL/min Normal 80 and above >32 mL/min NormalNORMAL RANGES Age WBC RBC HGB HCT MCV PLT Adult M 4.1-10.9 4.20-6.30 12.0-18.0 37.0-51.0 80-97 140-440 Adult F 4.1-10.9 4.04-5.48 12.0-18.0 37.0-51.0 80-97 140-440 0- 1 Yr 5.0-20.0 3.9-5.9 15-18 MV: 44 MV: 91 MV: 277 2-9 Yr. 6.0-17.0 3.8-5.4 11-13 MV: 37 MV: 78 MV: 300 10 Yrs. 5.0-13.0 3.8-5.4 12-15 MV: 39 MV: 80 MV: 250 NOTE: * FOR ADULT BLACK MALES AND FEMALES, NORMAL WBC IS 2.9-7.7 K/ML * FOR ADULT BLACK MALES AND FEMALES, NORMAL RBC,HGB, AND HCT IS 5% LESS SOURCE FOR DATA: [employer] 1800 OPERATION MANUAL( AUTOMATED BLOOD COUNTS AND DIFF.) APPENDIX B-3 Platelet mean volume [Entitic volume] in Blood by Tracie 10.5 f L 9.0-13.0 [facility]ZAFAR ([facility]) CHRONIC KIDNEY DISEASE STAGING PER NKF: MALE GFR INTERPRETATION: 20-49 YRS: >60 mL/min Normal 50-59 YRS: >56 mL/min Normal 60-69 YRS: >49 mL/min Normal 70-79 YRS: >42 mL/min Normal 80 and above >35 mL/min Normal FEMALE GRF INTERPRETATION: 20-39 YRS: >60 mL/min Normal 40-49 YRS: >58 mL/min Normal 50-59 YRS: >51 mL/min Normal 60-69 YRS: >45 mL/min Normal 70-79 YRS: >39 mL/min Normal 80 and above >32 mL/min NormalNORMAL RANGES Age WBC RBC HGB HCT MCV PLT Adult M 4.1-10.9 4.20-6.30 12.0-18.0 37.0-51.0 80-97 140-440 Adult F 4.1-10.9 4.04-5.48 12.0-18.0 37.0-51.0 80-97 140-440 0- 1 Yr 5.0-20.0 3.9-5.9 15-18 MV: 44 MV: 91 MV: 277 2-9 Yr. 6.0-17.0 3.8-5.4 11-13 MV: 37 MV: 78 MV: 300 10 Yrs. 5.0-13.0 3.8-5.4 12-15 MV: 39 MV: 80 MV: 250 NOTE: * FOR ADULT BLACK MALES AND FEMALES, NORMAL WBC IS 2.9-7.7 K/ML * FOR ADULT BLACK MALES AND FEMALES, NORMAL RBC,HGB, AND HCT IS 5% LESS SOURCE FOR DATA: [employer] 1800 OPERATION MANUAL( AUTOMATED BLOOD COUNTS AND DIFF.) APPENDIX B-3 ID Date Data Source [id number] 04/04/2019 09:23:00 AM EST [facility] ([facility]) Name Value Range Interpretation Code Description Data Pennie rce(s) Supporting Document(s) Magnesium Level 1.9 1.8-2.4 [facility] ([facility]) ID Date Data Source [id number] 04/04/2019 09:23:00 AM EST [facility] ([facility]) Name Value Range Interpretation Code Description Data Pennie rce(s) Supporting Document(s) Glucose 112 70-100 [facility] ([facility] Blood Urea Nitrogen 10 7-18 [facility] ([facility]) Sodium 144 136-145 [facility] ([facility] Creatinine 1.76 0.70-1.30 [facility] ([facility]) Potassium 4.0 3.5-5.1 [facility] ([facility] Chloride 109 98-107 [facility] ([facility] [place] Calcium 7.9 8.8-10.2 [facility] ([facility] Glomerular filtration rate/1.73 sq M.pre dicted [Volume Rate/Area] in Serum or Plasma by Creatinine-based formula (MDRD) 39.5 [facility] ([facility]) Carbon Dioxide 29 21-32 [facility] ([facility]) ID Date Data Source [id number] 04/04/2019 09:23:00 AM EST [facility] ([facility]) Name Value Range Interpretation Code Description Data Pennie rce(s) Supporting Document(s) White Blood Count 6.2 4.0-10.0 [facility] ([facility]) Platelets 102 150-450 [facility] ([facility] Red Blood Count 3.07 4.30-6.10 [facility] ([facility]) Hematocrit 28.2 [facility] ([facility]) Hemoglobin 8.6 [facility] ([facility]) ID Date Data Source [id number] 04/01/2019 09:45:00 AM EST [facility] ([facility]) Name Value Range Interpretation Code Description Data Pennie rce(s) Supporting Document(s) Magnesium Level 1.6 1.8-2.4 [facility] ([facility]) ID Date Data Source [id number] 04/01/2019 09:45:00 AM EST [facility] ([facility]) Name Value Range Interpretation Code Description Data Pennie rce(s) Supporting Document(s) Glucose 90 83-110 [facility] ([facility] Blood Urea Nitrogen 11 7-18 [facility] ([facility]) Creatinine 1.40 0.6-1.0 [facility] ([facility]) Sodium 146 136-145 [facility] ([facility] [place] Potassium 3.7 3.5-5.1 [facility] [place] Chloride 113 98-107 [facility] ([facility] Calcium 7.0 8.8-10.2 [facility] ([facility] Carbon Dioxide 27 21-32 [facility] ([facility]) Glomerular filtration rate/1.73 sq M.pre dicted [Volume Rate/Area] in Serum or Plasma by Creatinine-based formula (MDRD) 51.4 [facility] ID Date Data Source [id number] 03/31/2019 09:44:00 AM EST [facility] [place] Value Range Interpretation Code Description Data Pennie rce(s) Supporting Document(s) Troponin Laboratory [facility] Thyroid Stimulating Hormone 1.850 ME DENT ([facility]) Lipoprotein lipase [Enzymatic activity/volume] in Serum or Plasma 195 [facility] Date Data Source [id number] 03/31/2019 09:44:00 AM EST [facility] [place] Name Value Range Interpretation Code Description Data Pennie rce(s) Supporting Document(s) Creatine kinase [Enzymatic activity/volume] in Serum or Plasma 16 [facility] CPK[place]MB Laboratory test result [facility] [place] Date Data Source [id number] 03/31/2019 09:34:00 AM EST [facility] [place] Name Value Range Interpretation Code Description Data Pennie rce(s) Supporting Document(s) Troponin [facility] Date Data Source [id number] 03/31/2019 09:34:00 AM EST [facility] [place] Name Value Range Interpretation Code Description Data Pennie rce(s) Supporting Document(s) Creatine kinase [Enzymatic activity/volume] in Serum or Plasma 15 [facility] CPK-MB Laboratory test result [facility] Procedure Social History Code Duration Value Status Description Data Source(s ) Smoking 12/13/2019 12:00:00 AM EDT Patient is a former smoker completed Patient is a former smoker [facility] Vital Signs ID Date Data Source [id number] Name Value Range Interpretation Code Description Data Source(s) Body surface area Derived from formula 1.80 m2 1.80 m2 [facility] Body weight 66.906 kg 66.906 kg [facility] [place] body weight 154 [lb_av] 154 [lb_av] MED[facility] T ([facility]) Body mass index (BMI) [Ratio] 22.4 kg/m2 22.4 k g/m2 [facility] ([facility]) Body weight 147.50 [lb_av] 147.50 [lb_av] MED[facility] T ([facility]) Body height 68 [in_i] 68 [in_i] [facility] ([facility]) 5'8" Diastolic blood pressure 70 mm[Hg] 70 mm[Hg] [facility] ([facility]) Systolic blood pressure 128 mm[Hg] 128 mm[Hg] M EDENT ([facility]) Oxygen saturation in Arterial blood by Pulse oximetry 94 % 94 % [facility] ([facility] Body mass index (BMI) [Ratio] 24.0 kg/m2 24.0 k g/m2 [facility] ([facility] [place] body weight 148 [lb_av] 148 [lb_av] MEDEN T ([facility] Body weight 153.00 [lb_av] 153.00 [lb_av] MED[facility] T ([facility] Body height 67 [in_i] 67 [in_i] [facility] ([facility] 5'7" Respiratory rate 14 /min 14 /min [facility] ( [facility] Heart rate 70 /min 70 /min [facility] ([facility] Body temperature 98.4 [degF] 98.4 [degF] [facility] ([facility] Diastolic blood pressure 70 mm[Hg] 70 mm[Hg] [facility] ([facility] Systolic blood pressure 116 mm[Hg] 116 mm[Hg] M EDENT ([facility] [place] body weight 148 [lb_av] 148 [lb_av] MEDEN T ([facility]) Body mass index (BMI) [Ratio] 22.7 kg/m2 22.7 k g/m2 [facility] ([facility]) Body weight 145.00 [lb_av] 145.00 [lb_av] MEDEN T ([facility], ) Body height 67 [in_i] 67 [in_i] [facility] ([facility], ) 5'7" Respiratory rate 12 /min 12 /min [facility] ( [facility]) [place] body weight 148 [lb_av] 148 [lb_av] MEDEN T ([facility]) Body mass index (BMI) [Ratio] 21.3 kg/m2 21.3 k g/m2 [facility] ([facility]) Body weight 136.00 [lb_av] 136.00 [lb_av] MEDEN T ([facility]) Body height 67 [in_i] 67 [in_i] [facility] ([facility], ) 5'7" Respiratory rate 12 /min 12 /min MED[facility] ( [facility]) Oxygen saturation in Arterial blood by Pulse oximetry 94 % 94 % [facility] ([facility] Body mass index (BMI) [Ratio] 21.3 kg/m2 21.3 k g/m2 [facility] ([facility] [place] body weight 148 [lb_av] 148 [lb_av] MEDEN T ([facility] Body weight 136.00 [lb_av] 136.00 [lb_av] MEDEN T ([facility] Body height 67 [in_i] 67 [in_i] [facility] ([facility] 5'7" Respiratory rate 12 /min 12 /min [facility] ( [facility] Heart rate 70 /min 70 /min [facility] ([facility] Body temperature 97.5 [degF] 97.5 [degF] [facility] ([facility] Diastolic blood pressure 64 mm[Hg] 64 mm[Hg] [facility] ([facility] Systolic blood pressure 118 mm[Hg] 118 mm[Hg] M EDENT ([facility] Oxygen saturation in Arterial blood by Pulse oximetry 94 % 94 % [facility] ([facility], ) Body mass index (BMI) [Ratio] 21.3 kg/m2 21.3 k g/m2 [facility] ([facility]) Body weight 136.00 [lb_av] 136.00 [lb_av] MEDEN T ([facility]) Body height 67 [in_i] 67 [in_i] [facility] ([facility]) Respiratory rate 12 /min 12 /min [facility] ( [facility]) Body temperature 97.5 [degF] 97.5 [degF] [facility] ([facility]) Heart rate 70 /min 70 /min [facility] ([facility]) Diastolic blood pressure 64 mm[Hg] 64 mm[Hg] [facility] ([facility]) Systolic blood pressure 118 mm[Hg] 118 mm[Hg] EDENT ([facility]) Body mass index (BMI) [Ratio] 20.3 kg/m2 20.3 k g/m2 [facility] ([facility] Heart rate 70 /min 70 /min [facility] ([facility] Diastolic blood pressure 59 mm[Hg] 59 mm[Hg] [facility] ([facility] Systolic blood pressure 122 mm[Hg] 122 mm[Hg] [facility] Body weight 126.00 [lb_av] 126.00 [lb_av] MEDEN T ([facility] Body height 66 [in_i] 66 [in_i] [facility] ([facility] 5'6" Body mass index (BMI) [Ratio] 21.3 kg/m2 21.3 k g/m2 [facility] ([facility]) Body height 67 [in_i] 67 [in_i] [facility] ([facility]) 5'7" Body weight 136.00 [lb_av] 136.00 [lb_av] MEDEN T ([facility]) Diastolic blood pressure 64 mm[Hg] 64 mm[Hg] [facility] ([facility]) sitting, regular cuff Systolic blood pressure 128 mm[Hg] 128 mm[Hg] M EDENT ([facility]) sitting, regular cuff Respiratory rate 16 /min 16 /min [facility] ( [facility]) Heart rate 68 /min 68 /min [facility] ([facility] Regular Oxygen saturation in Arterial blood by Pulse oximetry 97 % 97 % [facility] ([facility] Body mass index (BMI) [Ratio] 19.7 kg/m2 19.7 k g/m2 [facility] ([facility] Body weight 126.00 [lb_av] 126.00 [lb_av] MEDEN T ([facility] Body height 67 [in_i] 67 [in_i] MED[facility] ([facility] 5'7" Respiratory rate 16 /min 16 /min [facility] ( [facility] Heart rate 78 /min 78 /min [facility] ([facility] Body temperature 97.1 [degF] 97.1 [degF] [facility] ([facility] Diastolic blood pressure 48 mm[Hg] 48 mm[Hg] [facility] ([facility] Systolic blood pressure 98 mm[Hg] 98 mm[Hg] M EDENT ([facility] Oxygen saturation in Arterial blood by Pulse oximetry 96 % 96 % [facility] ([facility] Body mass index (BMI) [Ratio] 19.8 kg/m2 19.8 k g/m2 [facility] ([facility] Body weight 126.38 [lb_av] 126.38 [lb_av] MEDEN T ([facility] Body height 67 [in_i] 67 [in_i] [facility] ([facility] 5'7" Respiratory rate 16 /min 16 /min [facility] ( [facility] Heart rate 70 /min 70 /min [facility] ([facility] Body temperature 99.6 [degF] 99.6 [degF] [facility] ([facility] Diastolic blood pressure 66 mm[Hg] 66 mm[Hg] [facility] ([facility] Systolic blood pressure 110 mm[Hg] 110 mm[Hg] M EDENT ([facility] Oxygen saturation in Arterial blood by Pulse oximetry 96 % 96 % MEDZAF[facility] ([facility] (On O2 @ 2 LPM NC) Body mass index (BMI) [Ratio] 19.8 kg/m2 19.8 k g/m2 [facility] ([facility] Body weight 126.50 [lb_av] 126.50 [lb_av] MEDEN T ([facility] Body height 67 [in_i] 67 [in_i] [facility] 5'7" Respiratory rate 18 /min 18 /min [facility] ( [facility] Heart rate 72 /min 72 /min [facility] ([facility] Body temperature 98.4 [degF] 98.4 [degF] [facility] ([facility] Diastolic blood pressure 56 mm[Hg] 56 mm[Hg] [facility] ([facility] Systolic blood pressure 92 mm[Hg] 92 mm[Hg] M EDENT ([facility] Oxygen saturation in Arterial blood by Pulse oximetry 97 % 97 % [facility] ([facility] Body height 67 [in_i] 67 [in_i] [facility] ([facility] 5'7" Respiratory rate 18 /min 18 /min [facility] ( [facility] Heart rate 82 /min 82 /min [facility] ([facility] Body temperature 98.4 [degF] 98.4 [degF] [facility] ([facility] Diastolic blood pressure 58 mm[Hg] 58 mm[Hg] [facility] ([facility] Systolic blood pressure 94 mm[Hg] 94 mm[Hg] M EDENT ([facility] Oxygen saturation in Arterial blood by Pulse oximetry 91 % 91 % [facility] ([facility] (On O2 @ 2 LPM [place]) Diastolic blood pressure 62 mm[Hg] 62 mm[Hg] [facility] ([facility] Systolic blood pressure 94 mm[Hg] 94 mm[Hg] M EDENT ([facility] Body mass index (BMI) [Ratio] 20.2 kg/m2 20.2 k g/m2 [facility] ([facility] Body weight 129.00 [lb_av] 129.00 [lb_av] MEDEN T ([facility] Body height 67 [in_i] 67 [in_i] [facility] ([facility] 5'7" Respiratory rate 12 /min 12 /min [facility] ( [facility] Heart rate 68 /min 68 /min [facility] ([facility] Body temperature 99.2 [degF] 99.2 [degF] [facility] ([facility] Diastolic blood pressure 62 mm[Hg] 62 mm[Hg] [facility] ([facility]) sitting Systolic blood pressure 126 mm[Hg] 126 mm[Hg] M EDENT ([facility]) sitting Diastolic blood pressure 62 mm[Hg] 62 mm[Hg] [facility] ([facility]) sitting, regular cuff Systolic blood pressure 130 mm[Hg] 130 mm[Hg] M EDENT ([facility]) sitting, regular cuff Respiratory rate 16 /min 16 /min [facility] ( [facility]) Body mass index (BMI) [Ratio] 21.0 kg/m2 21.0 k g/m2 [facility] ([facility]) Body height 67 [in_i] 67 [in_i] [facility] 5'7" Body weight 134.00 [lb_av] 134.00 [lb_av] MEDEN T ([facility]) Diastolic blood pressure 64 mm[Hg] 64 mm[Hg] MEDENT ([facility]) sitting, regular cuff Systolic blood pressure 126 mm[Hg] 126 mm[Hg] M EDENT ([facility]) sitting, regular cuff Respiratory rate 16 /min 16 /min MEDENT ( [facility]) Heart rate 72 /min 72 /min MEDENT ([facility]) Regular Body mass index (BMI) [Ratio] 22.1 kg/m2 22.1 k g/m2 MEDENT ([facility]) Body height 67 [in_i] 67 [in_i] MEDENT ([facility]) 5'7" Body weight 141.00 [lb_av] 141.00 [lb_av] MEDEN T ([facility]) Diastolic blood pressure 68 mm[Hg] 68 mm[Hg] MEDENT ([facility]) sitting, regular cuff Systolic blood pressure 110 mm[Hg] 110 mm[Hg] M EDENT ([facility]) sitting, regular cuff Respiratory rate 18 /min 18 /min MEDENT ( [facility]) Heart rate 72 /min 72 /min MEDENT ([facility]) Regular Body mass index (BMI) [Ratio] 22.2 kg/m2 22.2 k g/m2 MEDENT ([facility]) Body height 67 [in_i] 67 [in_i] MEDENT ([facility]) 5'7" Body weight 142.00 [lb_av] 142.00 [lb_av] MEDEN T ([facility]) Diastolic blood pressure 56 mm[Hg] 56 mm[Hg] MEDENT ([facility]) Sitting, regular cuff Systolic blood pressure 108 mm[Hg] 108 mm[Hg] M EDENT ([facility]) Sitting, regular cuff Respiratory rate 16 /min 16 /min MEDENT ( [facility]) Heart rate 76 /min 76 /min MEDENT ([facility]) Regular Body mass index (BMI) [Ratio] 22.1 kg/m2 22.1 k g/m2 MEDENT ([facility]) Body height 67 [in_i] 67 [in_i] MEDENT ([facility]) 5'7" Body weight 141.00 [lb_av] 141.00 [lb_av] MEDEN T ([facility]) Diastolic blood pressure 62 mm[Hg] 62 mm[Hg] MEDENT ([facility]) Sitting, regular cuff Systolic blood pressure 108 mm[Hg] 108 mm[Hg] M EDZAFAR ([facility]) Sitting, regular cuff Respiratory rate 16 /min 16 /min MEDENT ( [facility]) Heart rate 72 /min 72 /min MEDENT ([facility]) Regular Body mass index (BMI) [Ratio] 21.9 kg/m2 21.9 k g/m2 MEDZAFAR ([facility]) Body height 67 [in_i] 67 [in_i] MEDZAFAR ([facility]) 5'7" Body weight 140.00 [lb_av] 140.00 [lb_av] MESFIN T ([facility])
[2020-05-19 12:34] LABS: VENOUS BASE EXCESS 13.1 (-2.0-2.0); VENOUS HCO3 39.9 MEQ/L (23.0-27.0); VENOUS O2 SATURATION 99.1 % (60.0-80.0); VENOUS PARTIAL PRESSURE CO2 62.6 mmHg (38.0-50.0); VENOUS PARTIAL PRESSURE O2 237.6 mmHg (30.0-50.0); VENOUS PH 7.422 UNITS (7.330-7.430); VENOUS STANDARD HCO3 36.9 MEQ/L; VENOUS TOTAL CO2 41.8 MEQ/L (24.0-28.0)
[2020-05-19 12:42] LABS: HEMATOCRIT 34.7 % (42.0-52.0); HEMOGLOBIN 11.1 g/dl (13.5-17.5); MEAN CORPUSCULAR HEMOGLOBIN 28.5 pg (27.0-33.0); MEAN CORPUSCULAR VOLUME 89.2 fl (80.0-96.0); PLATELET COUNT, AUTOMATED 192 10^3/uL (150-450); RED BLOOD COUNT 3.89 10^6/uL (4.30-6.10)
[2020-05-19 12:45] LABS: WHITE BLOOD COUNT 12.1 10^3/uL (4.0-10.0)
[2020-05-19 13:06] LABS: ALBUMIN 2.7 GM/DL (3.2-5.2); ATYPICAL LYMPH 2 % (0-5); BILIRUBIN,DIRECT 0.1 MG/DL (0.0-0.2); BILIRUBIN,TOTAL 0.4 MG/DL (0.2-1.0); LYMPHOCYTES 11 % (16-44); MONOCYTES 10 % (0-5); NEUTROPHILS 71 % (28-66); THYROID STIMULATING HORMONE 1.34 uIU/ML (0.358-3.740); TOTAL PROTEIN 5.5 GM/DL (6.4-8.2)
[2020-05-19 13:07] LABS: ANISOCYTOSIS 2+; HYPOCHROMASIA 1+
[2020-05-19 13:08] LABS: PLATELET ESTIMATE NORMAL (NORMAL)
[2020-05-19] MEDS ORDERED: ISOVUE-370 76% 100ML VIAL As Ordered ONE (13:24)
[2020-05-19] MEDS ORDERED: POTASSIUM CHLORIDE 10 MEQ SR TABLET PO ONE (13:30)
--- NOTE | 2020-05-19 14:29 | REP ---
INDICATION: ritgh lower ext pain diminished pulses. COMPARISON: None. TECHNIQUE: Helical scanning is acquired following the intravenous injection of 100 mL of Isovue 370. 3 mm axial images are re-formatted. Coronal and sagittal MPR and coronal MIP images are generated. Curved MPR images are generated as well. FINDINGS: There is severe almost diffuse circumferential atherosclerotic vascular calcification in the arteries of the lower extremities. The distal abdominal aorta is patent and normal in caliber. Common iliac arteries are widely patent. There is a high-grade focal stenosis in the proximal external iliac artery on the left approximately 85-90%. The proximal internal iliac arteries are patent bilaterally. There is a high-grade focal stenosis in the proximal superficial femoral artery at its origin from the common femoral. Similarly, calcific plaquing produces narrowing of the profundal at its origin. There is circumferential superficial femoral artery calcific plaquing and narrowing multifocal stenoses. It is difficult to assess the lumen of the distal superficial femoral. At the level of the adductor canal, the left superficial femoral artery is occluded. There are patent geniculate collaterals. The popliteal artery is occluded on the left. The peroneal, anterior tibial, and posterior tibial arteries are so heavily calcified that it is difficult to know if they are patent or not. There appears to be contrast enhancement in the anterior tibial artery across the ankle in a segment which is not calcified. The left posterior tibial artery similarly is opacified at the level of the hindfoot. The distal peroneal artery is patent to just above the ankle. On the right, the right common iliac, proximal external, and internal iliac arteries are patent. There is heavy calcific plaquing in the mid external iliac artery but no high-grade stenosis is seen. Extensive calcific plaquing is seen at the bifurcation of the common femoral. There is high-grade stenosis in the proximal superficial femoral artery on the right. Heavy atherosclerotic circumferential calcification is seen in the mid SFA and multilevel stenoses are evident. The distal SFA at the level of the adductor canal appears to be patent. Plaquing is seen in the popliteal artery and there is evidence of a moderate stenosis in the popliteal artery. As was the case on the other side, the right calf runoff vessels are so heavily calcified that they are there lumen is difficult to evaluate. The mid and distal peroneal artery appears to be patent. The anterior and posterior tibial arteries do not appear to be patent across the ankle but rather heavily calcified. IMPRESSION: There is severe diffuse often circumferential calcific plaquing which limits the ability do visualize and confirm patency of the lumen of the arterial tree. This patient has extensive atherosclerotic vascular calcification. Multiple stenoses are observed including the left proximal external iliac artery, the left proximal superficial femoral artery. The left soup distal superficial femoral artery appears to be occluded. On the right, it appears that the anterior and posterior tibial arteries are occluded at the level of the ankle and reconstituted. The extent of calcification significantly inhibit is the quality of this arterial evaluation. <Electronically signed by Mike El > 05/19/20 [id number]
[2020-05-19] MEDS ORDERED: ISOVUE-300 61% 50ML VIAL As Ordered ONE (16:38)
[2020-05-19] MEDS ORDERED: LIDOCAINE 1% MDV 20ML VIAL As Ordered ONE (16:38)
[2020-05-19] MEDS ORDERED: fentaNYL 100 MCG/2 ML INJECTION (J3010) As Ordered ONE (16:59)
[2020-05-19] MEDS ORDERED: MIDAZOLAM INJ 2MG/2ML VIAL (J2250 PER 1MG) As Ordered ONE (16:59)
--- NOTE | 2020-05-19 19:21 | CR.PDOC ---
General Date of Consultation: May 19, 2020 Consultation REASON FOR CONSULTATION/CHIEF COMPLAINT: Severe right leg pain HISTORY OF PRESENT ILLNESS: This is a very pleasant 84-year-old gentleman with a long-standing history of peripheral vascular disease, untreated, who was seen for wound on the left foot by podiatry, sent to our office a week ago and an arterial duplex was ordered (not yet completed), and then he noticed worsening pain in his right lower extremity over the last week and a half. He said in the last 24 hours, the pain worsened so bad that he could not bear weight on the leg at all. It is unclear if this is a neuropathic etiology, or vascular. His foot is pink warm with a 3 second capillary refill and monophasic signal at the PT. I suspect he has severe chronic peripheral vascular disease, but there may be a component of acute arterial thrombosis that has resulted in his new symptoms. A CTA with runoff was performed and I have reviewed this imaging. The patient is heavily calcified from the aorta to the toes, with dense large calcified plaques throughout his arterial tree. This makes it difficult to see what is patent and what is not. It was difficult to say arterial flow in the right superficial femoral artery and popliteal artery. The tibials were even more difficult. On the left lower extremity, I could see some slow, so my concern was either that there was a timing difference or that the disease was heavier or that there was an acute thrombosis. Because I was not able to tell from the CT, I discussed with the patient the risks benefits and return advanced to an arteriogram and potential intervention. I discussed with him that there were 3 possibilities. First, we might find the diseases to severe and no intervention would be provided. Second, we might feel that the patient would benefit from tPA thrombolysis. Third, we might be able to improve flow with angioplasty and/or stenting. After discussing all of this with the patient and then with his daughter, he was agreeable to proceed and informed consent was obtained. In case we needed to do a thrombolysis with TPA, I reviewed with the patient recent risks of bleeding: He denies head injury, intracranial hemorrhage, stroke, or history of brain aneurysms. He denies nosebleeds bleeding from the gums, hematemesis, hemoptysis, hematuria, hematochezia. He denies any recent falls or injuries. He has not had any trauma or MVCs. He has no other known bleeding risks. We'll proceed directly for arteriogram and potential intervention. ALLERGIES: Please see below. HOME MEDICATIONS: Please see below. PAST MEDICAL HISTORY: Hypertension, neuropathy, gastroesophageal reflux disease, depression, COPD, BPH, urinary retention, renal insufficiency PAST SURGICAL HISTORY: Pacemaker FAMILY HISTORY: Heart disease SOCIAL HISTORY: Quit smoking 1989, no longer drinks alcohol, denies illicit drug use, patient is and his lives in a detention REVIEW OF SYSTEMS: CONSTITUTIONAL: Denies fevers or chills HEENT: Denies vision changes CARDIOVASCULAR: Denies chest pain RESPIRATORY: Positive shortness of breath with exertion GENITOURINARY: Positive urinary retention and kidney trouble MUSCULOSKELETAL: Positive right leg pain and inability to ambulate GASTROINTESTINAL: Denies nausea or vomiting SKIN: Positive wound left foot NEUROLOGICAL: Denies headaches or seizures (although he is on Keppra). Denies stroke PSYCHIATRIC: Positive depression ENDOCRINE: Denies diabetes or thyroid disease HEMATOLOGIC/LYMPHATIC: Positive iron deficient ALLERGIC/IMMUNOLOGIC: Denies PHYSICAL EXAMINATION: VITAL SIGNS: Please see below. GENERAL APPEARANCE: No acute distress HEENT: Normocephalic TMI hearing aids RESPIRATORY: Clear to auscultation CARDIOVASCULAR: Regular rate and rhythm paced ABDOMEN: Soft nontender nondistended EXTREMITIES: Dressing intact left foot, DP and PT signals monophasic left foot. Right foot hyperemic at the toes. 3 second capillary refill. Warm, but only monophasic PT signal dopplerable. NEUROLOGICAL: Alert and oriented 3, moves all extremities equally PSYCHIATRIC: Pleasant and cooperative, good historian LABORATORY DATA: Please see below. ASSESSMENT/PLAN: Very pleasant 84-year-old gentleman with severe peripheral vascular disease, concern for acute on chronic ischemia right lower extremity. 1. Patient is on eliquis twice a day. We will continue this. He should be on an antiplatelet and statin. Will recommend aspirin 81 mg EC daily and statin if not contraindicated. 2. Plan to proceed to IR for arteriogram right lower extremity, possible thrombolysis, possible angioplasty/stenting if indicated. We appreciate the opportunity to participate in the care of this patient. Vital Signs/I&O Vital Signs Date Time Temp Pulse Resp B/P (MAP) Pulse Ox O2 Delivery O2 Flow Rate FiO2 05/19/20 18:55 69 18 98 Nasal Cannula 2 05/19/20 16:33 97.6 05/19/20 16:06 105/61 (76) Laboratory Data Labs 24H Laboratory Tests 2 05/19/20 11:09: POC Glucose (Misc Panel) 177H, POC Sodium (Misc Panel) 144, POC Potassium (Misc Panel) 3.1L, POC Chloride (Misc Panel) 91L, POC Total CO2 (Misc Panel) 41.0H, POC Blood Urea Nitrogen (Misc Panel 20, POC Ionized Calcium (Misc Panel) 4.3L, POC Creatinine (Misc Panel) 1.3, POC Hematocrit (Misc Panel) 32.0L 05/19/20 11:11: Immature Granulocyte % (Auto) , Neutrophils (%) (Auto) , Nucleated Red Blood Cells % (auto) 0.0, Neutrophils 71H, Band Neutrophils 6, Lymphocytes (Manual) 11L, Monocytes (Manual) 10H, Atypical Lymphocytes 2, Hypochromasia 1+, Anisocytosis 2+, Macrocytosis 1+, Platelet Estimate NORMAL, Urine Color STRAW, Urine Appearance CLEAR, Urine pH 7.0, Urine Specific [place] 1.005, Urine Protein NEGATIVE, Urine Glucose (UA) NEGATIVE, Urine Ketones NEGATIVE, Urine Blood NEGATIVE, Urine Nitrite NEGATIVE, Urine Bilirubin NEGATIVE, Urine Urobilinogen 0.2, Urine Leukocyte Esterase NEGATIVE, Urine WBC (Auto) 0, Urine RBC (Auto) 0, Urine Hyaline Casts (Auto) 0, Urine Bacteria (Auto) NEGATIVE, Urine Squamous Epithelial Cells 0, Urine Sperm (Auto) , Blood Gas Bicarbonate Standard 36.9, Venous Blood pH 7.422, Venous Blood Partial Pressure CO2 62.6H, Venous Blood Partial Pressure O2 237.6H, Venous Blood Total Carbon Dioxide 4 1.8H, Venous Blood HCO3 39.9H, Venous Blood Oxygen Saturation 99.1H, Venous Blood Base Excess 13.1H, Lactic Acid Level 2.2*H, Total Bilirubin 0.4, Direct Bilirubin 0.1, Aspartate Amino Transf (AST/SGOT) 14, Alanine Aminotransferase (ALT/SGPT) 15, Alkaline Phosphatase 92, Ammonia 22, Total Protein 5.5L, Albumin 2.7L, Albumin/Globulin Ratio 1.0, Thyroid Stimulating Hormone (TSH) 1.340 05/19/20 11:18: POC Beta HCG, Quantitative < 5.0 CBC/BMP Laboratory Tests 05/19/20 11:11 Microbiology Microbiology 05/19/20 Blood Culture, Received Pending 05/19/20 Blood Culture, Received Pending Allergies Coded Allergies: petrolatum,white (Verified Allergy, Mild, ITCH/RASH, 09/21/19) fluconazole (Verified Allergy, Unknown, UNKNOWN REACTION, 09/16/19) fluticasone (Verified Allergy, Unknown, UNKNOWN REACTION, 09/16/19) metformin (Verified Allergy, Unknown, UNKNOWN REACTION, 09/16/19) promethazine (Verified Adverse Reaction, Intermediate, Altered Mental Status , 09/21/19) azithromycin (Verified Adverse Reaction, Unknown, LOWERS BP, 09/16/19) clarithromycin (Verified Adverse Reaction, Unknown, LOWERS BP, 09/16/19) procaine (Verified Adverse Reaction, Unknown, DIZZINESS, 09/16/19) Home Medications Scheduled Amiodarone HCl (Amiodarone HCl) 200 Mg Tablet, 200 MG PO DAILY, (Reported) Apixaban (Eliquis) 2.5 Mg Tab, 2.5 MG PO BID, (Reported) Atenolol (Atenolol) 25 Mg Tablet, 25 MG PO BID, (Reported) Budesonide/Formoterol (Symbicort 160-4.5 Mcg Inhaler) 6 Gm Hfa.aer.ad, 2 PUFF INH BID, (Reported) Calcium Carbonate/Vitamin D3 (Calcium 600 mg-Vit D3 10Mcg Tb) 600 Mg-400 Tablet, PO DAILY, (Reported) Diltiazem HCl (Diltiazem HCl) 120 Mg Tablet, 120 MG PO DAILY, (Reported) Finasteride (Finasteride) 5 Mg Tab, 5 MG PO QHS, (Reported) Gabapentin (Gabapentin) 100 Mg Capsule, PO TID, (Reported) Levetiracetam (Keppra) 250 Mg Tablet, 500 MG PO BID for 30 Days, #60 [place]-3 Fatty Acids/Fish Oil (Fish Oil 1,000 mg Capsule) 1 Each Capsule, PO DAILY, (Reported) Omeprazole (Omeprazole) 40 Mg Capsule.dr, 40 MG PO DAILY, (Reported) Paroxetine HCl (Paroxetine HCl) 20 Mg Tablet, 20 MG PO DAILY, (Reported) Prednisone (Prednisone) 5 Mg Tab, 5 MG PO QAM, (Reported) Prednisone (Prednisone) 2.5 Mg Tablet, 2.5 MG PO QPM, (Reported) Ropinirole HCl (Ropinirole HCl) 0.25 Mg Tablet, 0.25 MG PO QHS, (Reported) Tamsulosin Hcl (Tamsulosin HCl) 0.4 Mg Capsule, 0.4 MG PO QHS, (Reported) Torsemide (Torsemide) 20 Mg Tablet, PO DAILY, (Reported) [iron] , 27 MG PO DAILY, (Reported) Scheduled PRN Acetaminophen (Acetaminophen) 500 Mg Tablet, 1,000 MG PO Q8H PRN for PAIN, (Reported) TAKES WITH TRAMADOL PRN Levalbuterol Hydrochloride (Xopenex Hfa) 15 Gm Hfa.aer.ad, 2 PUFF INH Q6H PRN for SHORTNESS OF BREATH, (Reported) Tramadol HCl (Tramadol HCl) 50 Mg Tablet, 50 MG PO Q6H PRN for PAIN, (Reported) ELOINA MIJARES MD May 19, 2020 19:21
--- NOTE | 2020-05-19 19:45 | ROOPDOC ---
[facility] Report Of Operation Report of Operation DATE OF PROCEDURE: 05/19/20 PREPROCEDURE DIAGNOSES: Atherosclerosis in the [place] arteries with concern for acute on chronic ischemia right lower extremity POSTPROCEDURE DIAGNOSES: Same PROCEDURE: 1. Ultrasound-guided access left common femoral artery 2. Aortoiliofemoral arteriogram 3. Selection right common femoral and superficial femoral artery with right lower extremity runoff 4. Selection left distal posterior tibial artery with runoff 5. Angioplasty left common iliac artery, external iliac artery with 7 x 100 [place] balloon 6. Angioplasty right common iliac artery, external iliac artery, common femoral artery with 7 x 100 [place] balloon 7. Angioplasty right superficial femoral artery and proximal popliteal artery with 5 x 206 x 200 [place] balloons 8. Angioplasty right anterior tibial artery and posterior tibial artery with 2 x 220 [place] balloon 9. Completion arteriograms 10. Mynx closure left common femoral artery SURGEON: Siri Hodges MD ANESTHESIA: Local anesthesia 6 mL lidocaine. Moderate intravenous conscious sedation was supervised by Dr. Hodges. The patient was independently monitored by registered nurse assigned department of radiology using automated blood pressure, EKG, and pulse oximetry. The detailed sedation record is permanently stored in the hospital information system. The following is a brief sedation record: Start time 17:22, stop time 19:06, Versed 1 mg IV, fentanyl 50 g IV, heparin 3000 units IV. CONTRAST: 56 mL Isovue-300 INDICATION FOR PROCEDURE: This is a very pleasant 84-year-old gentleman with a long-standing history of peripheral vascular disease, untreated, who was seen for wound on the left foot by podiatry, sent to our office a week ago and an arterial duplex was ordered (not yet completed), and then he noticed worsening pain in his right lower extremity over the last week and a half. He said in the last 24 hours, the pain worsened so bad that he could not bear weight on the leg at all. It is unclear if this is a neuropathic etiology, or vascular. His foot is pink warm with a 3 second capillary refill and monophasic signal at the PT. I suspect he has severe chronic peripheral vascular disease, but there may be a component of acute arterial thrombosis that has resulted in his new symptoms. A CTA with runoff was performed and I have reviewed this imaging. The patient is heavily calcified from the aorta to the toes, with dense large calcified plaques throughout his arterial tree. This makes it difficult to see what is patent and what is not. It was difficult to say arterial flow in the right superficial femoral artery and popliteal artery. The tibials were even more difficult. On the left lower extremity, I could see some slow, so my concern was either that there was a timing difference or that the disease was heavier or that there was an acute thrombosis. Because I was not able to tell from the CT, I discussed with the patient the risks benefits and return advanced to an arteriogram and potential intervention. I discussed with him that there were 3 possibilities. First, we might find the diseases to severe and no intervention would be provided. Second, we might feel that the patient would benefit from tPA thrombolysis. Third, we might be able to improve flow with angioplasty and/or stenting. After discussing all of this with the patient and then with his daught er, he was agreeable to proceed and informed consent was obtained. In case we needed to do a thrombolysis with TPA, I reviewed with the patient recent risks of bleeding: He denies head injury, intracranial hemorrhage, stroke, or history of brain aneurysms. He denies nosebleeds bleeding from the gums, hematemesis, hemoptysis, hematuria, hematochezia. He denies any recent falls or injuries. He has not had any trauma or MVCs. He has no other known bleeding risks. We'll proceed directly for arteriogram and potential intervention. The patient has a recent history of some renal insufficiency, but his GFR today is greater than 50 so I think we will be safe to proceed with arteriogram. We will hydrate him periprocedure. We will monitor his creatinine postprocedure. INTERPRETATION: 1. There is heavy calcification and bulky calcified plaque throughout the entire arterial tree from the aorta to the distal tibials on the right. The aorta is heavily calcified patent, and there is flow through the common iliac arteries, i nternal iliac arteries, and external iliac arteries bilaterally, but all are heavily calcified and intermittently stenotic between 20 and 80% with diffuse multiple lesions. 2. The right common femoral artery has heavy bulky areas of focal plaque better between 60 and 90% stenotic. The right profunda is also heavily calcified and stenotic but patent. The right superficial femoral artery is nearly obstructive with heavy balls of bulky calcified plaque from the origin to Romeo's canal. There are intermittent areas with a slightly larger lumen, but overall the flow through the SFA is a trickle flow. The right popliteal artery is heavily calcified and moderately stenotic proximally, but distally patent. 3. The right tibial flow is also extremely calcified. There is flow in the origin of all 3 tibials. The peroneal artery occludes near its origin reconstitutes occludes again reconstitutes occludes again reconstitutes and occludes again at the ankle than reconstitutes into the plantar vessels. The peroneal artery occludes for short segment near the origin, then reconstitutes at the mid calf and ankle. The anterior tibial artery is open for the proximal few centimeters and then has heavy stenosis, trickle flow, intermittent stenoses distally, and limited flow into the dorsal pedis artery. The plaque is heavy and calcified. 4. After angioplasty of the left iliac system with a 7 x 100 balloon, there is improved luminal flow. After angioplasty of the right iliac system with a 7 x 100 balloon, and the right common femoral artery, there is improve flow. We were cautious to stent and post-dilate the iliacs bilaterally for fear of arterial perforation due to heavy bulky calcified plaque. However, this provided enough luminal dilation to allow us to place a 6 x 45 destination sheath to treat the right arterial disease. It also provided a marked improvement in inflow through the iliac system. 5. After angioplasty of the SFA and proximal popliteal artery with a 5 x 200 [place] balloon, there was some improvement in flow, but still so much luminal compromise due to the bulky calcified plaque. Again, we were very cautious about trying to aggressively treat the patient's disease for fear of creating flow- limiting AV fistulas, perforations, dissections, and occlusion. We felt upsizing to 6 x 200 balloon may provide additional flow, and we carefully angioplastied the proximal SFA and mid SFA with a 6 x 200 [place] balloon. Following this, there was a marked improvement in flow throughout the SFA, no dissection perforation or AV fistulas noted. 6. After angioplasty of the right posterior tibial artery with a 2 x 220 [place] balloon, there was improved flow but still heavy calcification, stenoses, and we were not able to completely alleviate all areas of stenosis. Nevertheless, there is definitely an improvement in flow through the posterior tibial artery. No extravasation or embolization noted. No dissection or AV fistula noted. 7. After angioplasty of the right anterior tibial artery, there is improve flow proximally. We were not able to advance the balloon distally. No extravasation embolization dissection or AV fistula noted. 8. Attempt to cross peroneal artery, aborted. No extravasation noted. REPORT OF OPERATION: The patient was brought to the angiographic suite in stable condition. His bilateral groins were prepped and draped in a sterile fashion. A timeout was performed. Local anesthesia was a superintendent track to the skin and subcutaneous tissue over the left common femoral artery. Sedation was administered without complication. A microneedle was used to access left common femoral artery under ultrasound guidance. A wire was passed through this access and the needle was removed. A 4 [place] sheath was placed and flushed with saline. A Glidewire and flushing catheter were advanced into the aorta under fluoroscopic guidance. An aortoiliofemoral arteriogram was performed, please see interpretation above. We then went up and over the bifurcation and navigated with some challenge into the right common femoral artery and origin and superficial femoral artery. Due to heavy plaque, this was very difficult. We then performed a right lower extremity runoff, please see interpretation above. We advanced the wire into the mid SFA and remove the catheter. We attempted to place a 6 x 45 destination sheath, but there was too much plaque in the iliac vessels to advance the sheath. We exchanged sheath for short 6 [place] sheath and flushed the sheath with saline. We then angioplastied along the left iliac system for three-minute inflations with a 7 x 100 [place] balloon. We then advanced the balloon over the bifurcation into the right iliac system and the right common femoral artery and angioplastied and several separate angioplasties for three-minute inflations along the length of the vessels. Following this, there is a marked improvement in flow, no AV fistulas extravasation dissection or embolization noted. We then passed a catheter over the wire and exchange the wire for an Amplatz superstiff wire. We then removed the 6 [place] sheath and advanced a 6 x 45 destination sheath over the wire. This passed easily after angioplasty of the iliac vessels. Sheath was flushed with saline. We then u tilized to [place] catheter and the Glidewire to cross through to the distal popliteal artery and the anterior tibial artery. This was very challenging but eventually we were able to cross. Contrast injection confirmed we were in the true lumen. We then angioplastied the proximal popliteal artery and the entire SFA with a 5 x 200 [place] balloon for three-minute inflations. Following this, although there was some improvement in flow we felt we can get better luminal flow with a 6 x 200 [place] balloon so we upsize the balloon. Three-minute inflations were again performed through the mid and proximal SFA. Following this, there was a marked improvement in flow, although bulky calcified plaque is certainly still present, at least there is a significant lumen centrally. No dissection embolization AV fistula or extravasation noted. We then exchange the wire for 018 Glidewire advantage and advances into the posterior tibial artery. Utilizing the wire and a 2 x 220 [place] balloon, we were able to cross through to the mid distal posterior tibial artery with serial inflations to open heavily stenotic areas as we went and allow us to pass the balloon further and further with each inflations. Following multiple angioplasties and three-minute inflations, we definitely had a marked improvement in flow through the posterior tibial artery, although some areas of heavy plaque and stenosis are still certainly present. Nevertheless, this is improved. We then attempted to cross the occlusion in the peroneal artery, but this was unsuccessful and aborted. No extravasation noted after attempts. We then added to access the right anterior tibial artery and we were able to advance the wire to the distal calf, and able to advance the balloon to the mid distal calf. Serial inflations were performed, but we could not advance the balloon any further. This definitely improve flow proximally, but we did not significantly improve flow distally. There is a lot of microvascular disease at the ankle and foot with heavy calcification of the vessels on completion arteriogram, but no embolization AV fistulas dissections or extravasation noted. This concluded the procedure. We exchanged the sheath over an 035 Glidewire for a 6 [place] short sheath and flushed the sheath with saline. A Mynx closure device was deployed with good hemostasis. Pressure was held and sterile dressings were applied. The patient was taken to recovery in stable condition. He tolerated the sedation and the procedure well. ESTIMATED BLOOD LOSS: Approximately 5 mL. COMPLICATIONS: None. PLAN: Okay to resume home diet and medications. Okay to resume eliquis 2.5 twice a day. Patient will eventually likely need further endovascular intervention, but hopefully this provides a significant amount of additional right lower extremity flow. 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 He will be on bedrest until midnight, but then tomorrow we will see if he is able to ambulate again after intervention. If not, we might consider that the etiology of his pain and difficulty with ambulation could be neuropathic. Likely it is multifactorial. We will plan on seeing the patient for his left lower extremity arteriogram outpatient. We still plan on intervening on the left leg, and expect the disease to be just as severe as the right, in order to help him heal his wound on his left foot. We will admit the patient to the hospitalist team [place], and decide on further inpatient management versus outpatient management in the morning depending on his status. We appreciate the opportunity to participate in the care of this patient. SIRI HODGES MD May 19, 2020 19:45
[2020-05-19] MEDS ORDERED: LEVE500T5 PO (19:46)
[2020-05-19] MEDS ORDERED: IRON240T PO (19:46)
[2020-05-19] MEDS ORDERED: PARO5TAB PO (19:47)
[2020-05-19] MEDS: SYMBICORT 160/4.5MCG INHALER 6GM INH SCH (20:00)
[2020-05-19] MEDS ORDERED: NS 1,000 ML IV SCH (20:00)
[2020-05-19] MEDS ORDERED: TAMSULOSIN 0.4 MG CAP PO SCH (21:00)
[2020-05-19] MEDS ORDERED: rOPINIRole 0.25 MG TAB(REQUIP) PO SCH (21:00)
[2020-05-19] MEDS ORDERED: ACETAMINOPHEN 500 MG TAB PO PRN (21:30)
--- OUTSIDE RECORDS SUMMARY | 2020-05-19 21:36 | CCD ---
Author Author [facility] Organization [facility] Address Unknown Phone Unavailable Care Team Providers Care Entry Level Drafter Name Role Phone Ramirez Garcia HOG FEEDER Unavailable Unavailable DietscheRamirez HOG FEEDER Unavailable Unavailable Dietsche M Vanessa HOG FEEDER Unavailable Unavailable Dietsche M Vanessa HOG FEEDER Unavailable Unavailable Dietsche M Vanessa HOG FEEDER Unavailable Unavailable Dietsche M Vanessa HOG FEEDER Unavailable Unavailable Dietsche M Vanessa HOG FEEDER Unavailable Unavailable Dietsche M Vanessa HOG FEEDER Unavailable Unavailable Dietsche M Vanessa HOG FEEDER Unavailable Unavailable Dietsche, M Vanessa HOG FEEDER Unavailable Unavailable Dietsche, M Vanessa HOG FEEDER Unavailable Unavailable Dietsche, M Vanessa HOG FEEDER Unavailable Unavailable Kathy Dunlap Unavailable Unavailable Kathy [...] Kathy Nancy PA Unavailable Unavailable Symenow, Kathy Nanyc PA Unavailable Unavailable Symenow, Kathy Nancy PA [...] Unavailable Nicky LUNA MD Unavailable Unavailable Nicky LUAN MD Unavailable Unavailable Nicky LUNA MD Unavailable [...] is protected by Article 27-F of the [facility] Public Health law. If you continue you may have access to information: Regarding HIV / AIDS; Provided by facilities licensed or operated by the [facility] Office of Mental Health; or Provided by the [facility] Office for People With Developmental Disabilities. If such information is present, then the following [facility] mandated warning applies: This information has been [...] law may result in a fine or group home sentence or both. A general authorization for the release of medical or other information is NOT sufficient authorization for further disc losure. Family History Family Member Name Family Member Gender Family Member Status Date o f Status Description Data Source(s) Unknown Unknown Problem [facility] ([facility]) Encounters Encounter Providers Location Date Indications Data Source(s ) Outpatient Attender: JAY SALGADO [facility] Office 04/01 09:45:00 AM EST [facility] ([facility] Outpatient Attender: GAIL LUNA MD [facility] 01:30:00 PM EST [facility] ([facility] Office Visit Attender: Thom Lynch MD Main office - [facility] 04/20/2020 01:15:00 PM EST [facility] ([facility], ) Outpatient Attender: LISA MORE MDConsultant: STAFF NON 04/13/2020 07:26:00 AM EST - 04/13/2020 07:36:00 AM EST [facility] Outpatient Attender: LISA MORE MDConsultant: STAFF NON 04/10/2020 03:31:00 PM EST - 04/10/2020 03:41:00 PM EST [facility] Outpatient Attender: LISA MORE MDConsultant: STAFF NON 04/06/2020 02:43:00 PM EST - 04/06/2020 02:53:00 PM EST [facility] Outpatient Attender: LISA MORE MDConsultant: STAFF NON 04/03/2020 07:22:00 PM EST - 04/03/2020 07:32:00 PM EST [facility] Outpatient Attender: LISA MORE MDConsultant: STAFF NON 03/30/2020 03:52:00 PM EST - 03/30/2020 04:02:00 PM EST [facility] Outpatient Attender: LISA MORE MDConsultant: STAFF NON 03/27/2020 01:59:00 PM EST - 03/27/2020 02:09:00 PM EST [facility] Outpatient Attender: LISA MORE MDConsultant: STAFF NON 03/23/2020 04:49:00 PM EST - 03/23/2020 04:59:00 PM EST [facility] Outpatient Attender: LISA MORE MDConsultant: STAFF NON 03/16/2020 07:01:00 AM EST - 03/16/2020 07:11:00 AM EST [facility] Outpatient Attender: LISAANA MARIA MORE MDConsultant: STAFF NON 02/22/2020 07:32:00 AM EST - 02/22/2020 07:42:00 AM EST [facility] Outpatient Attender: LISA MORE MDConsultant: STAFF NON 02/17/2020 07:03:00 AM EST - 02/17/2020 07:13:00 AM EST [facility] Outpatient Attender: LISA HENSONEL MDConsultant: STAFF NON 01/22/2020 07:15:00 AM EDT - 01/22/2020 07:25:00 AM EDT [facility] Outpatient Attender: Thom Lynch MD Main office [facility] 01/11/2020 10:00:00 AM EDT MED[facility] ([facility] ) Outpatient Attender: GAIL LUNA MD [facility] 03:00:00 PM EDT [facility] Outpatient Attender: JAY SALGADO [facility] Office 11/30 01:45:00 PM EDT [facility] ([facility] Outpatient Attender: Nancy SANCHEZ Main Office 12/13/2019 11:15:00 AM EDT [facility] ([facility]) Outpatient Attender: GAIL LUNA MD [facility] 02:45:00 PM EDT [facility] ([facility] Outpatient Attender: GAIL LUNA MD [facility] 03:20:00 PM EDT [facility] ([facility] Outpatient Attender: GAIL LUNA MD [facility] 02:30:00 PM EDT [facility] ([facility] Inpatient Attender: Phoebe Sosa MDAttender: JORGE FERNANDEZ PAAdmitter: Phoebe Sosa MD EMERGENCY ROOM- 10/26/2019 04:04:00 PM EDT - 10/27/2019 02:20:00 PM [facility] Patient discharged. Outpatient Attender: GAIL [facility] Office 02:30:00 PM EDT [facility] ([facility] Outpatient Referrer: Vanessa Garcia NP 09/27/2019 05:21:00 AM EDT [facility] Outpatient Attender: GAIL LUNA MD [facility] 03:20:00 PM EDT [facility] ([facility] Outpatient Attender: Nancy SANCHEZ Main Office 09/09/2019 07:45:00 AM EDT [facility] ([facility]) Outpatient Attender: GAIL Wong Office [...] 09:30:00 AM EDT [facility] ([facility]) Outpatient Attender: GAIL Wong Office 12:00:00 PM EST [facility] ([facility] Outpatient Attender: Nancy SANCHEZ Main Office 05/14/2019 11:45:00 AM EST [facility] ([facility]) Outpatient Attender: Jose Lewis MD [facility] 05/05/2019 01:32:4 8 PM EST [facility] Outpatient Attender: GAIL Wong Office 12:45:00 PM EST [facility] ([facility] Outpatient Referrer: Vanessa Garcia NP 04/15/2019 09:27:00 PM EST [facility] Outpatient Attender: Nancy SANCHEZ Main Office 04/13/2019 06:45:00 AM EST [facility] ([facility]) Outpatient Attender: Nancy SANCHEZ Main Office 04/08/2019 07:00:00 AM EST [facility] ([facility]) Outpatient Referrer: Vanessa Garcia NP 04/07/2019 04:35:00 PM EST [facility] Outpatient Referrer: Vanessa Garcia NP 04/07/2019 04:34:00 PM EST [facility] Immunizations Vaccine Date Status Description [...] AM EST ORAL active MED[facility] ([facility]) 12.5 mg 04/28/2020 12:00:00 AM EST capsule 90 TAKE ONE CAPSULE BY MOUTH EVERY DAY TAKE ONE CAPSULE BY MOUTH EVERY DAY SOLD: 04/28/2020 [facility] Hydrochlorothiazide 12.5 MG Oral Capsule Hydrochlorothiazide 04/27/2020 12:00:00 AM EST ORAL active MED[facility] ([facility] 120 mg 04/16/2020 12:00:00 [...] DAY FOR BENIGN PROSTATIC HYPERPLASIA SOLD: 04/14/2020 [facility] Finasteride 5 MG Oral Tablet FINASTERIDE 04/14/2020 12:00:00 AM EST ta blet 30 TAKE ONE TABLET BY MOUTH EVERY DAY FOR BENIGN PROSTATIC HYPERPLASIA *WEAR GLOVES WHEN HANDLING/CRUSHING* TAKE ONE TABLET BY MOUTH EVERY DAY FOR B ENIGN PROSTATIC HYPERPLASIA *WEAR GLOVES WHEN HANDLING/CRUSHING* SOLD: 04/14/2020 [facility] Paroxetine Hydrochloride 10 MG Oral Tablet PAROXETINE [...] NEEDED FOR SHORTNESS OF BREATH SOLD: 04/14/2020 [facility] Atenolol 25 MG Oral Tablet ATENOLOL 04/14/2020 [...] 12/24/2019 12:00:00 AM E DT active MED[facility] ([facility] 200 mg 12/23/2019 12:00:00 AM [...] ORAL active M EDENT ([facility]) ferrous gluconate 324 MG Oral Tablet Ferrous Gluconate 12:00:00 AM EDT ORAL active [facility] ([facility] Docusate Sodium 100 MG Oral Capsule Stool Softener 12/12/2019 12:00 :00 AM EDT ORAL active [facility] ([facility]) Paroxetine HCL Paroxetine HCL 12/12/2019 12:00:00 AM EDT ORAL active [facility] ([facility]) Cholecalciferol 5000 UNT Oral Capsule Vitamin D3 12/12/2019 12:00:00 AM EDT ORAL active [facility] ([facility]) Tamsulosin hydrochloride 0.4 MG Oral Capsule Tamsulosin HCL 12/12/2019 12:00:00 AM EDT ORAL active [facility] ([facility]) Tamsulosin hydrochloride 0.4 MG Oral Capsule Tamsulosin HCL 12/09/2019 12:00:00 AM EDT active MEDENT ([facility]) Tamsulosin hydrochloride 0.4 MG Oral Capsule Tamsulosin HCL 12/09/2019 12:00:00 AM EDT active MED[facility] ([facility] Docusate Sodium 100 MG Oral Capsule [Colace] Colace 11/2019 12:00:00 AM EDT ORAL active [facility] ( [facility] Docusate Sodium 100 MG Oral Capsule [Colace] Colace 11/2019 12:00:00 AM EDT ORAL active [facility] ( [facility] Finasteride 5 MG Oral Tablet [...] 12:00:00 AM EDT ORAL active M EDENT ([facility]) 40 mg 10/11/2019 12:00:00 AM [...] 10/11/2019 12:00:00 AM EDT ORAL active [facility] ([facility]) 120 mg 10/06/2019 12:00:00 AM [...] 09/20/2019 12:00:00 AM EDT ORAL active [facility] ([facility] Ondansetron 4 MG Oral Tablet [Zofran] Zofran 09/20/2019 12:00:00 AM EDT ORAL active [facility] ([facility]) Paroxetine 20 MG Oral Tablet [Paxil] Paxil 09/20/2019 12:00:00 AM EDT ORAL completed [facility] ([facility] Promethazine Hydrochloride 25 MG Oral Tablet Promethazine HC L 09/17/2019 12:00:00 AM EDT ORAL completed [facility] ([facility] 25 mg 09/17/2019 12:00:00 AM EDT tablet 30 TAKE ONE TABLET BY MOUTH FOUR TIMES A DAY NEEDED TAKE ONE TABLET BY MOUTH FOUR TIMES A DAY NEEDED SO LD: 09/17/2019 [facility] Amiodarone hydrochloride 200 MG Oral Tablet Amiodarone HCL 09/08/2019 12:00:00 AM EDT ORAL active [facility] ([facility]) Atenolol 25 MG Oral Tablet Atenolol 09/08/2019 12:00:00 AM EDT active [facility] ([facility] Oxygen - Home 09/08/2019 12:00:00 AM EDT acti ve MEDENT ([facility]) Ketoconazole 20 MG/ML Topical Cream Ketoconazole 09/08/2019 12:00:00 AM EDT active [facility] Diltiazem Hydrochloride 120 MG Oral Tablet Diltiazem HCL 09/08/2019 12:00:00 AM EDT ORAL active [facility] Magnesium Chloride 535 MG Delayed Release Oral Tablet [Mag 6 4] Mag64 09/08/2019 12:00:00 AM EDT ORAL completed [facility] ([facility]) 50 mg 09/01/2019 12:00:00 AM EDT tablet 120 TAKE ONE TABLET BY MOUTH EVERY 6 HOURS NEEDED FOR PAIN MAXIMUM DAILY DOSE = 4 TABLETS TAKE ONE TABLET BY MOUTH EVERY 6 HOURS NEEDED FOR PAIN MAXIMUM DAILY DOSE = 4 TABLETS SOLD: 09/03/2019 [facility] tramadol hydrochloride 50 MG Oral Tablet Tramadol HCL 08/31/2019 12:00:00 AM EDT ORAL active [facility] ([facility] tramadol hydrochloride 50 MG Oral Tablet Tramadol HCL 08/31/2019 12:00:00 AM EDT ORAL active [facility] ([facility]) 0.25 mg 08/30/2019 12:00:00 AM [...] ONE TABLET BY MOUTH DAILY SOLD: 08/12/2019 [facility] 160-4.5 mcg/actuation 08/09/2019 12:00:00 AM EDT [...] BY MOUTH TWICE A DAY SOLD: 09/17/2019 [facility] Fenofibrate 160 MG Oral Tablet FENOFIBRATE 06/09/2019 [...] EST ORAL active [facility] ([facility] Amiodarone hydrochloride 200 MG Oral Tablet Amiodarone HCL 04/07/2019 12:00:00 AM EST ORAL completed [facility] ([facility]) Ondansetron 4 MG Oral Tablet [Zofran] Zofran 04/07/2019 12:00:00 AM EST active [facility] ([facility]) Atenolol 25 MG Oral Tablet Atenolol 04/07/2019 12:00:00 AM EST ORAL completed [facility] ([facility]) 25 mg 04/04/2019 12:00:00 AM EST tablet [...] type / Coverage type Policy ID Covered alliance party ID Covered alliance party's relationship to sierra Policy [place] Plan Information WELLCARE [id number] SP [id number] WELLCARE -O/P [id number] 18 [id number] SELF PAY ONLY [id number] SP [id number] WELLCARE O [id number] S [id number] MEDICARE [id number] SP [id number] A WELLCARE HEALTH PLANS [id number] S [id number] MEDICARE [id number] SP [id number] WELLCARE [id number] SP [id number] WELLCARE MEDICARE [id number] [place] [id number] Today's Options Ppo Commercial [id number] Self [id number] Today's Options PFFS Commercial [id number] Self [id number] Medicare (Part B) Medicare Primary [id number] Self [id number] Wellcare MCR Advantage Commercial [id number] Self [id number] Today's Options PFFS Commercial [id number] Self [id number] Today's Options Ppo Commercial [id number] Self [id number] Wellcare MCR - To Ppo Commercial [id number] Self [id number] [facility] built[employer] Commercial [id number] Self [id number] [employer] BC/BS Ppo Medigap Part B [id number] Self [id number] [employer] Medigap Part B [id number] Self [id number] [facility]-Commercial Plan Medigap Part B [id number] [id number] [facility] Medicare Commercial [id number] Self [id number] Today's Options Ppo Commercial [id number] Self [id number] Today's Options PFFS Commercial [id number] Self [id number] Medicare (Part B) Medicare Primary [id number] Self [id number] Wellcare MCR Advantage Commercial [id number] Self [id number] Today's Options PFFS Commercial [id number] Self [id number] Today's Options Ppo Commercial [id number] Self [id number] Wellcare MCR - To Ppo Commercial [id number] Self [id number] Today's Options Ppo Commercial [id number] Self [id number] Today's Options PFFS Commercial [id number] Self [id number] Medicare (Part B) Medicare Primary [id number] Self [id number] Wellcare MCR Advantage Commercial [id number] Self [id number] Today's Options PFFS Commercial [id number] Self [id number] Today's Options Ppo Commercial [id number] Self [id number] Wellcare MCR - To Ppo Commercial [id number] Self [id number] Today's Options Ppo Commercial [id number] Self [id number] Today's Options PFFS Commercial [id number] Self [id number] Medicare (Part B) Medicare Primary [id number] Self [id number] Wellcare MCR Advantage Commercial [id number] Self [id number] Today's Options PFFS Commercial [id number] Self [id number] Today's Options Ppo Commercial [id number] Self [id number] Wellcare MCR - To Ppo Commercial [id number] Self [id number] WELLCARE MEDICARE [id number] WELLCARE MEDICARE [id number] [place] 05 [id number] Today's Options Ppo Commercial [id number] Self [id number] Today's Options PFFS Commercial [id number] Self [id number] Medicare (Part B) Medicare Primary [id number] Self [id number] Wellcare MCR Advantage Commercial [id number] Self [id number] Today's Options PFFS Commercial [id number] Self [id number] Today's Options Ppo Commercial [id number] Self [id number] Wellcare MCR - To Ppo Commercial [id number] Self [id number] Today's Options Ppo Commercial [id number] Self [id number] Today's Options PFFS Commercial [id number] Self [id number] Medicare (Part B) Medicare Primary [id number] Self [id number] Wellcare MCR Advantage Commercial [id number] Self [id number] Today's Options PFFS Commercial [id number] Self [id number] Today's Options Ppo Commercial [id number] Self [id number] Wellcare MCR - To Ppo Commercial [id number] Self [id number] Today's Options Ppo Commercial [id number] Self [id number] Today's Options PFFS Commercial [id number] Self [id number] Medicare (Part B) Medicare Primary [id number] Self [id number] Wellcare MCR Advantage Commercial [id number] Self [id number] Today's Options PFFS Commercial [id number] Self [id number] Today's Options Ppo Commercial [id number] Self [id number] Wellcare MCR - To Ppo Commercial [id number] Self [id number] Today's Options Ppo Commercial [id number] Self [id number] Today's Options PFFS Commercial [id number] Self [id number] Medicare (Part B) Medicare Primary [id number] Self [id number] Wellcare MCR Advantage Commercial [id number] Self [id number] Today's Options PFFS Commercial [id number] Self [id number] Today's Options Ppo Commercial [id number] Self [id number] Wellcare MCR - To Ppo Commercial [id number] Self [id number] Today's Options Ppo Commercial [id number] Self [id number] Today's Options PFFS Commercial [id number] Self [id number] Medicare (Part B) Medicare Primary [id number] Self [id number] Wellcare MCR Advantage Commercial [id number] Self [id number] Today's Options PFFS Commercial [id number] Self [id number] Today's Options Ppo Commercial [id number] Self [id number] Wellcare MCR - To Ppo Commercial [id number] Self [id number] Today's Options Ppo Commercial [id number] Self [id number] Today's Options PFFS Commercial [id number] Self [id number] Medicare (Part B) Medicare Primary [id number] Self [id number] Wellcare MCR Advantage Commercial [id number] Self [id number] Today's Options PFFS Commercial [id number] Self [id number] Today's Options Ppo Commercial [id number] Self [id number] Wellcare MCR - To Ppo Commercial [id number] Self [id number] Today's Options Ppo Commercial [id number] Self [id number] Today's Options PFFS Commercial [id number] Self [id number] Medicare (Part B) Medicare Primary [id number] Self [id number] Wellcare MCR Advantage Commercial [id number] Self [id number] Today's Options PFFS Commercial [id number] Self [id number] Today's Options Ppo Commercial [id number] Self [id number] Wellcare MCR - To Ppo Commercial [id number] Self [id number] WELLCARE [id number] SP [id number] TODAYS OPTIONS [id number] SP [id number] TODAYS OPTIONS/CITIZEN OF [place] O [id number] S [id number] Today's Options Ppo Commercial [id number] Self [id number] Today's Options PFFS Commercial [id number] Self [id number] Medicare (Part B) Medicare Primary [id number] Self [id number] Wellcare MCR Advantage Commercial [id number] Self [id number] Today's Options PFFS Commercial [id number] Self [id number] Today's Options Ppo Commercial [id number] Self [id number] Today's Options Ppo Commercial [id number] Self [id number] Today's Options PFFS Commercial [id number] Self [id number] Medicare (Part B) Medicare Primary [id number] Self [id number] Wellcare MCR Advantage Commercial [id number] Self [id number] Today's Options PFFS Commercial [id number] Self [id number] Today's Options Ppo Commercial [id number] Self [id number] Today's Options Ppo Commercial [id number] Self [id number] Today's Options PFFS Commercial [id number] Self [id number] Medicare (Part B) Medicare Primary [id number] Self [id number] Wellcare MCR Advantage Commercial [id number] Self [id number] Today's Options PFFS Commercial [id number] Self [id number] Today's Options Ppo Commercial [id number] Self [id number] Today's Options Ppo Commercial [id number] Self [id number] Today's Options PFFS Commercial [id number] Self [id number] Medicare (Part B) Medicare Primary [id number] Self [id number] Wellcare MCR Advantage Commercial [id number] Self [id number] Today's Options PFFS Commercial [id number] Self [id number] Today's Options Ppo Commercial [id number] Self [id number] Today's Options Ppo Commercial [id number] Self [id number] Today's Options PFFS Commercial [id number] Self [id number] Medicare (Part B) Medicare Primary [id number] Self [id number] Wellcare MCR Advantage Commercial [id number] Self [id number] Today's Options PFFS Commercial [id number] Self [id number] Today's Options Ppo Commercial [id number] Self [id number] Today's Options Ppo Commercial [id number] Self [id number] Today's Options PFFS Commercial [id number] Self [id number] Medicare (Part B) Medicare Primary [id number] Self [id number] Wellcare MCR Advantage Commercial [id number] Self [id number] Today's Options PFFS Commercial [id number] Self [id number] Today's Options Ppo Commercial [id number] Self [id number] Medicare (Part B) Medicare Primary Self [facility]-Commercial [...] Commercial Self Today's Option Medicare Commercial Self [place] [employer]-Today's Opt Commercial Self United [employer] Commercial Self Medicare Medicare Primary Self United [employer] Medigap Part B Self Problems, Conditions, and Diagnoses Code Display Name Description Problem Type Effective Dates Data Source(s) [id number] Pressure ulcer of left foot stage 2 Pres sure ulcer of left foot stage 2 Problem 05/01/2020 12:00:00 AM EST [facility] [id number] 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 Problem 05/01/2020 12:00:00 AM EST [facility] [id number] Chronic diastolic heart failure Chronic diastoli c heart failure Problem 09/09/2019 12:00:00 AM EDT [facility]AF[facility] ([facility] I4891 Unspecified atrial fibrillation Unspecified atrial fib rillation Diagnosis 04/13/2020 07:26:00 AM [facility] Z1152 Invalid ICD10 Description Invalid ICD10 Description Di agnosis 04/10/2020 03:31:00 PM [facility] Z1159 Encounter for screening for other viral diseases Encounter for screening for other viral diseases Diagnosis 04/03/2020 07:22:00 PM [facility] F0390 Unspecified dementia without behavioral disturbance Unspecified dementia without behavioral disturbance Diagnosis 03/16/2020 07:01:00 AM [facility] G9341 Metabolic encephalopathy Metabolic encephalopathy Diag nosis 03/16/2020 07:01:00 AM [facility] I10 Essential (primary) hypertension Essential (primary) h ypertension Diagnosis 02/22/2020 07:32:00 AM [facility] R569 Unspecified convulsions Unspecified convulsions Diagno sis 02/22/2020 07:32:00 AM [facility] J449 Chronic obstructive pulmonary disease, u nspecified Chronic obstructive pulmonary disease, unspecified Diagnosis 02/17/2020 07:03:00 AM [facility] E8342 Hypomagnesemia Hypomagnesemia Diagnosis 01/22/2020 07:15: 00 AM [facility] E039 Hypothyroidism, unspecified Hypothyroidism, unspecifie d Diagnosis 01/22/2020 07:15:00 AM [facility] E785 Hyperlipidemia, unspecified Hyperlipidemia, unspecifie d Diagnosis 01/22/2020 07:15:00 AM [facility] G9340 Encephalopathy, unspecified Encephalopathy, unspecifie d Diagnosis 01/22/2020 07:15:00 AM [facility] Y93.89 Activity, other specified ACTIVITY, OTHER SPECIFIED Di agnosis 10/26/2019 04:04:00 PM [facility] Y92.[address] in unspeci fied non-institutional (private) residence as the place of occurrence of the external cause UNSP PL[facility] IN [facility]PR[facility] RESIDENC Diagnosis 10/26/2019 04:04:00 PM [facility] W18.39XA Other fall on same level, initial encoun ter OTHER FALL ON SAME LEVEL, INITIAL ENCOUNTER Diagnosis 10/26/2019 04:04:00 PM [facility] Z87.891 Personal history of nicotine dependence PERSONAL HISTORY OF NICOTINE DEPENDENCE Diagnosis 10/26/2019 04:04:00 PM [facility] Z79.899 Other terminologist (current) drug therapy 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) DRUG THERAPY Diagnosis 10/26/2019 04:04:00 PM [facility] Z79.01 roasterman (current) use of anticoagulant s LONG-TERM (CURRENT) USE OF ANTICOAGULANTS Diagnosis 10/26/2019 04:04:00 PM [facility] Z79.52 FDC (current) use of systemic ster oids BUSINESS WRITER (CURRENT) USE OF SYSTEMIC STEROIDS Diagnosis 10/26/2019 04:04:00 PM [facility] Z79.51 roasterman (current) use of inhaled stero ids LONG-TERM (CURRENT) USE OF INHALED STEROIDS Diagnosis 10/26/2019 04:04:00 PM [facility] Z95.0 Presence of cardiac pacemaker PRESENCE OF CARDIAC PACE MAKER Diagnosis 10/26/2019 04:04:00 PM [facility] [facility] K31.84 Gastroparesis GASTROPARESIS Diagnosis 10/26/2019 04:04:00 PM [facility] N18.9 Chronic kidney disease, unspecified CHRONIC KIDN EY DISEASE, UNSPECIFIED Diagnosis 10/26/2019 04:04:00 PM [facility] I48.91 Unspecified atrial fibrillation UNSPECIFIED ATRI AL FIBRILLATION Diagnosis 10/26/2019 04:04:00 PM [facility] R55 Syncope and collapse SYNCOPE AND COLLAPSE Diagnosis 10/26/2019 04:04:00 PM [facility] D62 Acute posthemorrhagic anemia ACUTE POSTHEMORRHAGIC ANE HENRY Diagnosis 10/26/2019 04:04:00 PM [facility] S40.811A Abrasion of right upper arm, initial enc ounter ABRASION OF RIGHT UPPER ARM, INITIAL ENCOUNTER Diagnosis 10/26/2019 04:04:00 PM [facility] S40.812A Abrasion of left upper arm, initial enco unter ABRASION OF LEFT UPPER ARM, INITIAL ENCOUNTER Diagnosis 10/26/2019 04:04:00 PM [facility]T [facility] J44.9 Chronic obstructive pulmonary disease, u nspecified CHRONIC OBSTRUCTIVE PULMONARY DISEASE, UNSPECIFIED Diagnosis 10/26/2019 04:04:00 PM EDT [facility] 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, or unspecified chronic kidney disease HYPERTENSIVE CHRONIC KIDNEY DISEASE W STG 1-4/UNSP Diagnosis 10/26/2019 04:04:00 PM EDT [facility] S09.90XA Unspecified injury of head, initial enco unter UNSPECIFIED INJURY OF HEAD, INITIAL ENCOUNTER Diagnosis 10/26/2019 04:04:00 PM EDT [facility] I48.91 Unspecified atrial fibrillation Unspecified atri al fibrillation Diagnosis 05/05/2019 01:32:48 PM EST [facility] Surgeries/Procedures Procedure Description Date Indications Data Source(s) DEBRIDEMENT SUBCUTANEOUS TISSUE 20 SQ CM/< 04/28/2020 12:00:00 AM EST [facility] ([facility] ELECTROENCEPHALOGRAM W/REC AWAKE&ASLEEP 02/23/2020 12: 00:00 AM EST [facility] ([facility] ELECTROENCEPHALOGRAM W/REC AWAKE&ASLEEP 02/23/2020 12: 00:00 AM EST [facility] ([facility]) DEBRIDEMENT NAIL ANY METHOD 6/> 12/23/2019 12:00:00 AM EDT [facility] ([facility] 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 EVAL IN PERSON 1/DUAL/BRIDGE [employer]PENTER LEAD PM 2019 12:00:00 AM EDT [facility] ([facility]) ECG ROUTINE ECG W/LEAST 12 LDS W/I&R 09/09/2019 12:00: 00 AM EDT [facility] ([facility]) ECG ROUTINE ECG W/LEAST 12 LDS W/I&R 07/06/2019 12:00: 00 AM EDT [facility] ([facility]) ECG ROUTINE ECG W/LEAST 12 LDS W/I&R 04/08/2019 12:00: 00 AM EST [facility] ([facility]) Results ID Date Data Source [id number] 05/19/2020 11:18:00 AM EST [facility] ([facility] Name Value Range Interpretation Code Description Data Pennie rce(s) Supporting Document(s) Laboratory test finding (navigational concept) Laboratory test r esult Normal (applies to non-numeric results) [facility] ([facility] <content>QUANTITATIVE RESULT QU ALITATIVE INTERPRETATION</content>
<content> </content>
<content><5.0 IU/L NEGATIVE</content>
<content>5.0 - 25.0 IU/L INDETERMINATE</content>
<content>>25.0 IU/L POSITIVE</content>
<content></content> ID Date Data Source [id number] 05/19/2020 11:11:00 AM EST [facility] ([facility] Name Value Range Interpretation Code Description Data Pennie rce(s) Supporting Document(s) Platelets [#/volume] in Blood by Estimate Laboratory test result Normal (applies to non-numeric results) [facility] ([facility] Lactate [Mass/volume] in Serum or Plasma 2.2 mmol/L 0.4-2.0 Above upper panic limits [facility] ([facility] ) Y/N query for Sepsis Lactate Rule: Y ID Date Data Source [id number] 05/19/2020 11:11:00 AM EST [facility] ([facility] Name Value Range Interpretation Code Description Data Pennie rce(s) Supporting Document(s) Neutrophils 71 % 28-66 Above high normal [facility] ([facility] Monocytes 10 % 0-5 Above high normal [facility] ([facility] Bands 6 % Normal (applies to non-numeric resul ts) [facility] ([facility] Lymphocytes 11 % 16-44 Below low normal [facility] ([facility] Anisocytosis Laboratory test result Normal (applies to non -numeric results) [facility] ([facility] Atypical Lymph 2 % 0-5 Normal (applies to non-numeric r esults) [facility] ([facility] Hypochromasia Laboratory test result Normal (applies t o non-numeric results) [facility] ([facility] Macrocytosis Laboratory test result Normal (applies to non -numeric results) [facility] ([facility] ID Date Data Source [id number] 05/19/2020 11:11:00 AM EST [facility] ([facility] Name Value Range Interpretation Code Description Data Pennie rce(s) Supporting Document(s) White Blood Count 12.1 10 4.0-10.0 Above high normal [facility] ([facility] A Pathologist review of this differentia l can help in the evaluation of a differential diagnosis. Please order a Pathologist Review (PERISM) if deemed necessary. Results are subject to change if a Pathologist Review is performed. Hemoglobin 11.1 g/dL 13.5-17.5 Below low normal [facility] ( [facility] Red Blood Count 3.89 10 4.30-6.10 Below low normal [facility] ([facility] Hematocrit 34.7 % 42.0-52.0 Below low normal [facility] ( [facility] Mean Corpuscular Hemoglobin 28.5 pg 27.0-33.0 Norm al (applies to non-numeric results) [facility] ([facility] Mean Corpuscular Volume 89.2 fl 80.0-96.0 Normal ( applies to non-numeric results) [facility] ([facility] ) Red Cell Distribution Width 18.7 % 11.5-14.5 Above high normal [facility] ([facility] Mean Corpuscular HGB Conc 32.0 g/dL 32.0-36.5 Normal (applies to non-numeric results) [facility] ([facility] ) Platelet Count, Automated 192 10 150-450 Normal (applies to non-numeric results) [facility] ([facility] ) Nucleated Red Blood Cell % 0.0 % 0-0 Normal (applies to n on-numeric results) [facility] ([facility] ID Date Data Source [id number] 05/19/2020 11:11:00 AM EST [facility] ([facility] Name Value Range Interpretation Code Description Data Pennie rce(s) Supporting Document(s) Thyrotropin [Units/volume] in Serum or Plasma 1.340 uIU/ML 0. 358-3.740 Normal (applies to non-numeric results) [facility] ([facility] ID Date Data Source [id number] 05/19/2020 11:11:00 AM EST [facility] ([facility] Name Value Range Interpretation Code Description Data Pennie rce(s) Supporting Document(s) Ast/Sgot 14 U/L 7-37 Normal (applies to non-numeric resul ts) [facility] ([facility] Alkaline Phosphatase 92 U/L 45-117 Normal (applies to non-num romeo results) [facility] ([facility] Bilirubin,Total 0.4 mg/dL 0.2-1.0 Normal (applies to non-numeric results) [facility] ([facility] Alt/SGPT 15 U/L 12-78 Normal (applies to non-numeric resul ts) [facility] ([facility] Total Protein 5.5 GM/DL 6.4-8.2 Below low normal [facility] ([facility] Bilirubin,Direct 0.1 mg/dL 0.0-0.2 Normal (applies to non-numeric results) [facility] ([facility] Albumin/Globulin Ratio 1.0 Normal (applies to non-n umeric results) [facility] ([facility] Albumin 2.7 GM/DL 3.2-5.2 Below low normal [facility] ( [facility] ID Date Data Source [id number] 05/19/2020 11:11:00 AM EST [facility] ([facility] Name Value Range Interpretation Code Description Data Pennie rce(s) Supporting Document(s) Ammonia [Mass/volume] in Blood 22 uMOL/L N ormal (applies to non-numeric results) [facility] ([facility] ) ID Date Data Source [id number] 05/19/2020 11:11:00 AM EST [facility] ([facility] Name Value Range Interpretation Code Description Data Pennie rce(s) Supporting Document(s) Appearance, Urine RFX Laboratory test result Nor mal (applies to non-numeric results) [facility] ([facility] ) Color, Urine RFX Laboratory test result Normal ( applies to non-numeric results) [facility] ([facility] PH,Urine RFX 7.0 units 5.0-9.0 Normal (applies to non-numeric res ults) [facility] Specific [place] Ur Auto RFX 1.005 1.002-1.035 Nor mal (applies to non-numeric results) [facility] ([facility] ) Protein, Urine Auto RFX Laboratory test result N ormal (applies to non-numeric results) [facility] ([facility] ) Glucose, Urine (Ua) Auto RFX Laboratory test result Normal (applies to non- numeric results) [facility] ([facility] ) Ketone, Urine Auto RFX Laboratory test result No rmal (applies to non-numeric results) [facility] ([facility] ) Bilirubin, Urine Auto RFX Laboratory test result Normal (applies to non- numeric results) [facility] ([facility] ) Urobilinogen, Urine Auto RFX 0.2 mg/dL 0.0-2.0 Nor mal (applies to non-numeric results) [facility] ([facility] ) Nitrite, Urine Auto RFX Laboratory test result N ormal (applies to non-numeric results) [facility] ([facility] ) Leukocyte Esterase Ur Auto RFX Laboratory test result Normal (applies to non- numeric results) [facility] ([facility] ) WBC, Urine Auto RFX 0 /HPF 0-3 Normal (applies to non-nume cristian results) [facility] ([facility] RBC, Urine Auto RFX 0 /HPF 0-3 Normal (applies to non-nume cristian results) [facility] ([facility] Blood, Urine Blood RFX Laboratory test result No rmal (applies to non-numeric results) [facility] ([facility] ) Squam Epithelial Cell Ur Aurfx 0 /HPF 0-6 N ormal (applies to non-numeric results) [facility] ([facility] ) Hyaline Cast, Urine Auto RFX 0 /LPF 0-1 Normal (appl ies to non-numeric results) [facility] ([facility] Bacteria, Urine Auto RFX Laboratory test result Normal (applies to non-numeric results) [facility] ([facility] ) ID Date Data Source [id number] 05/19/2020 11:11:00 AM EST [facility] Name Value Range Interpretation Code Description Data Pennie rce(s) Supporting Document(s) Venous PH 7.422 units 7.330-7.430 Normal (applies to non-numeric res ults) [facility] ([facility] Venous Partial Pressure Co2 62.6 mmHg 38.0-50.0 Above high normal [facility] ([facility] Venous Total Co2 41.8 meq/L 24.0-28.0 Above high normal M [facility] ([facility] Venous Partial Pressure O2 237.6 mmHg 30.0-50.0 Above high normal [facility] ([facility] Venous Base Excess 13.1 Above high normal [facility] ([facility] Venous Hco3 39.9 meq/L 23.0-27.0 Above high normal [facility] ([facility] Venous O2 Saturation 99.1 % 60.0-80.0 Above high normal [facility] ([facility] Venous Standard Hco3 36.9 meq/L Normal (applies to non-num romeo results) [facility] ([facility] ID Date Data Source [id number] 05/19/2020 11:09:00 AM EST [facility] ([facility] Name Value Range Interpretation Code Description Data Pennie rce(s) Supporting Document(s) Laboratory test finding (navigational concept) 177 mg/dL 7 0-105 Above high normal [facility] ([facility] ) Laboratory test finding (navigational concept) 32.0 % 3 8.0-51.0 Below low normal [facility] ([facility] ) Laboratory test finding (navigational concept) 144 meq/L 1 36-145 Normal (applies to non-numeric results) [facility] ([facility] Laboratory test finding (navigational concept) 3.1 meq/L 3 .5-5.1 Below low normal [facility] ([facility] ) Laboratory test finding (navigational concept) 4.3 mg/dL 4 .5-5.3 Below low normal [facility] ([facility] ) Laboratory test finding (navigational concept) 41.0 MM/L 2 3.0-27.0 Above high normal [facility] ([facility] ) Laboratory test finding (navigational concept) 91 meq/L 98-109 Below low normal [facility] ([facility] Laboratory test finding (navigational concept) 20 mg/dL 8 -26 Normal (applies to non-numeric results) [facility] ([facility]) Laboratory test finding (navigational concept) 1.3 mg/dL 0 .6-1.3 Normal (applies to non-numeric results) [facility] ([facility] ID Date Data Source [id number] 05/05/2020 12:51:00 PM EST [facility] ([facility] Name Value Range Interpretation Code Description Data Pennie rce(s) Supporting Document(s) Leukocytes [#/volume] in Blood by Automated count 12.6 x10E3/uL 3.4-10.8 Above high normal [facility] ([facility] ) A courtesy copy of this report has been sent to the patient, Hemoglobin [Mass/volume] in Blood 11.5 g/dL 13.0-17.7 Below low nor mal [facility] ([facility] A courtesy copy of this report has been sent to the patient, Erythrocytes [#/volume] in Blood by Automated count 4.00 x10E6/u L 4.14-5.80 Below low normal [facility] ([facility] ) A courtesy copy of this report has been sent to the patient, Erythrocyte mean corpuscular volume [Entitic volume] by Auto mated count 90 fL 79-97 [facility] ([facility] A courtesy copy of this report has been sent to the patient, Hematocrit [Volume Fraction] of Blood by Automated count 35.9 % 37.5-51.0 Below low normal [facility] ([facility] ) A courtesy copy of this report has been sent to the patient, Erythrocyte mean corpuscular hemoglobin [Entitic mass] by Automated count 28.8 pg 26.6-33.0 [facility] A courtesy copy of this report has been sent to the patient, Platelets [#/volume] in Blood by Automated count 179 x10E3/uL 150-450 [facility] ([facility] A courtesy copy of this report has been sent to the patient, Erythrocyte distribution width [Ratio] by Automated count 18.1 % 11.6-15.4 Above high normal [facility] ([facility] ) A courtesy copy of this report has been sent to the patient, Erythrocyte mean corpuscular hemoglobin concentration [Mass/volume] by Automated count 32.0 g/dL 31.5-35.7 [facility] A courtesy copy of this report has been sent to the patient, Lymphs 8 % [facility] ([facility] A courtesy copy of this report has been sent to the patient, Neutrophils 68 % [facility] ([facility] A courtesy copy of this report has been sent to the patient, Eosinophils/100 leukocytes in Blood by Automated count 0 % [facility] ([facility] A courtesy copy of this report has been sent to the patient, Basophils/100 leukocytes in Blood by Automated count 1 % [facility] ([facility] A courtesy copy of this report has been sent to the patient, Monocytes/100 leukocytes in Blood by Automated count 14 % [facility] ([facility] A courtesy copy of this report has been sent to the patient, Neutrophils [#/volume] in Blood by Automated count 8.6 x10E3/uL 1.4-7.0 Above high normal [facility] ([facility] ) A courtesy copy of this report has been sent to the patient, Immature cells [#/volume] in Blood Laboratory test result [facility] ([facility] A courtesy copy of this report has been sent to the patient, Monocytes [#/volume] in Blood 1.8 x10E3/uL 0.1-0.9 Above high norm al [facility] ([facility] A courtesy copy of this report has been sent to the patient, Lymphocytes [#/volume] in Blood 1.0 x10E3/uL 0.7-3.1 [facility] ([facility] A courtesy copy of this report has been sent to the patient, Eosinophils [#/volume] in Blood by Automated count 0.0 x10E3/uL 0.0-0 .4 [facility] ([facility] A courtesy copy of this report has been sent to the patient, Immature granulocytes/100 leukocytes in Blood by Autom ated count Laboratory test result [facility] A courtesy copy of this report has been sent to the patient, Basophils [#/volume] in Blood by Automated count 0.1 x10E3/uL 0.0-0.2 [facility] ([facility] A courtesy copy of this report has been sent to the patient, Nucleated erythrocytes/100 leukocytes [Ratio] in Blood by Automated count Laboratory test result [facility] ([facility] A courtesy copy of this report has been sent to the patient, Immature granulocytes [#/volume] in Blood by Automated count Laboratory test result [facility] ([facility] A courtesy copy of this report has been sent to the patient, Metamyelocytes 4 % 0-0 Above high normal [facility] ([facility] A courtesy copy of this report has been sent to the patient, Bands Laboratory test result [facility] ([facility] A courtesy copy of this report has been sent to the patient, Morphology [Interpretation] in Blood Narrative Laboratory test result [facility] ([facility] A courtesy copy of this report has been sent to the patient, Myelocytes 5 % 0-0 Above high normal [facility] ([facility] A courtesy copy of this report has been sent to the patient, Promyelocytes Laboratory test result [facility] ([facility] A courtesy copy of this report has been sent to the patient, Laboratory test finding (navigational concept) Laboratory test result [facility] ([facility] A courtesy copy of this report has been sent to the patient, Laboratory test finding (navigational concept) Laboratory test result [facility] ([facility] A courtesy copy of this report has been sent to the patient, Laboratory test finding (navigational concept) Laboratory test result [facility] ([facility] A courtesy copy of this report has been sent to the patient, ID Date Data Source [id number] 04/25/2020 02:56:00 PM EST [facility] ([facility] Name Value Range Interpretation Code Description Data Pennie rce(s) Supporting Document(s) Thyrotropin [Units/volume] in Serum or Plasma 1.270 uIU/mL 0.450-4.50 0 [facility] ([facility] ID Date Data Source [id number] 04/25/2020 02:56:00 PM EST [facility] ([facility] Name Value Range Interpretation Code Description Data Pennie rce(s) Supporting Document(s) Glucose [Mass/volume] in Serum or Plasma 193 mg/dL 65-99 Above high normal [facility] ([facility] BUN 17 mg/dL 8-27 [facility] eGFR If Africn Am 91 mL/min/1.73 [facility] ([facility] Creatinine [Mass/volume] in Serum or Plasma 0.86 mg/dL 0.76-1.27 [facility] ([facility] eGFR If NonAfricn Am 79 mL/min/1.73 [facility] ([facility] Potassium [Moles/volume] in Serum or Plasma 4.2 mmol/L 3.5-5.2 [facility] ([facility] Urea nitrogen/Creatinine [Mass Ratio] in Serum or Plasma 20 1 0-24 [facility] ([facility] Sodium [Moles/volume] in Serum or Plasma 144 mmol/L 134-144 [facility] ([facility] Carbon dioxide, total [Moles/volume] in Serum or Plasma 30 mmol/ L 20-29 Above high normal [facility] ([facility] ) Chloride [Moles/volume] in Serum or Plasma 102 mmol/L 96-106 [facility] ([facility] Albumin [Mass/volume] in Serum or Plasma 3.4 g/dL 3.6-4.6 Below low normal [facility] ([facility] Protein [Mass/volume] in Serum or Plasma 5.2 g/dL 6.0-8.5 Below low normal [facility] ([facility] Calcium [Mass/volume] in Serum or Plasma 8.3 mg/dL 8.6-10.2 Below low normal [facility] ([facility] Albumin/Globulin [Mass Ratio] in Serum or Plasma 1.9 1.2-2.2 [facility] ([facility] Bilirubin.total [Mass/volume] in Serum or Plasma 0.3 mg/dL 0.0-1.2 [facility] ([facility] Globulin [Mass/volume] in Serum by calculation 1.8 g/dL 1.5-4.5 [facility] ([facility] Alkaline phosphatase [Enzymatic activity/volume] in Serum or Plasma 76 IU/L 39-117 [facility] Alanine aminotransferase [Enzymatic activity/volume] in Seru m or Plasma 14 IU/L 0-44 [facility] ([facility] Aspartate aminotransferase [Enzymatic activity/volume] in Serum or Plasma 15 IU/L 0-40 [facility] ([facility] ID Date Data Source [id number] 04/25/2020 02:56:00 PM EST [facility] ([facility] Name Value Range Interpretation Code Description Data Pennie rce(s) Supporting Document(s) Erythrocytes [#/volume] in Blood by Automated count 4.03 x10E6/u L 4.14-5.80 Below low normal [facility] ([facility] ) Few schistocytes. Leukocytes [#/volume] in Blood by Automated count 12.3 x10E3/uL 3.4-10.8 Above high normal [facility] ([facility] ) Erythrocyte mean corpuscular volume [Entitic volume] by Auto mated count 89 fL 79-97 [facility] Hemoglobin [Mass/volume] in Blood 11.8 g/dL 13.0-17.7 Below low nor mal [facility] ([facility] Hematocrit [Volume Fraction] of Blood by Automated count 36.0 % 37.5-51.0 Below low normal [facility] ([facility] ) Erythrocyte mean corpuscular hemoglobin concentration [Mass/volume] by Automated count 32.8 g/dL 31.5-35.7 [facility] ([facility] Erythrocyte mean corpuscular hemoglobin [Entitic mass] by Automated count 29.3 pg 26.6-33.0 [facility] Platelets [#/volume] in Blood by Automated count 182 x10E3/uL 150-450 [facility] ([facility] Erythrocyte distribution width [Ratio] by Automated count 18.2 % 11.6-15.4 Above high normal [facility] ([facility] ) Lymphs 6 % [facility] Monocytes/100 leukocytes in Blood by Automated count 14 % [facility] ([facility] Neutrophils 72 % [facility] ([facility] Eosinophils/100 leukocytes in Blood by Automated count 0 % [facility] ([facility] Basophils/100 leukocytes in Blood by Automated count 2 % [facility] ([facility] Immature cells [#/volume] in Blood Laboratory test result [facility] ([facility] Neutrophils [#/volume] in Blood by Automated count 8.9 x10E3/uL 1.4-7.0 Above high normal [facility] ([facility] ) Eosinophils [#/volume] in Blood by Automated count 0.0 x10E3/uL 0.0-0 .4 [facility] ([facility] Monocytes [#/volume] in Blood 1.7 x10E3/uL 0.1-0.9 Above high norm al [facility] ([facility] Lymphocytes [#/volume] in Blood 0.7 x10E3/uL 0.7-3.1 [facility] ([facility] Immature granulocytes/100 leukocytes in Blood by Autom ated count Laboratory test result [facility] Immature granulocytes [#/volume] in Blood by Automated count Laboratory test result [facility] Basophils [#/volume] in Blood by Automated count 0.2 x10E3/uL 0.0-0.2 [facility] ([facility] Morphology [Interpretation] in Blood Narrative Laboratory test result [facility] ([facility] Manual differential was performed. Nucleated erythrocytes/100 leukocytes [Ratio] in Blood by Automated count Laboratory test result [facility] ([facility] Myelocytes 5 % 0-0 Above high normal [facility] ([facility] Metamyelocytes 1 % 0-0 Above high normal MED [facility] ([facility] Bands Laboratory test result [facility] ([facility] Laboratory test finding (navigational concept) Laboratory test result [facility] ([facility] Laboratory test finding (navigational concept) Laboratory test result [facility] ([facility] Promyelocytes Laboratory test result [facility] ([facility] Laboratory test finding (navigational concept) Laboratory test result [facility] ([facility] ID Date Data Source [id number] 04/25/2020 02:56:00 PM EST [facility] ([facility] Name Value Range Interpretation Code Description Data Pennie rce(s) Supporting Document(s) Magnesium [Mass/volume] in Serum or Plasma 1.7 mg/dL 1.6-2.3 [facility] ([facility] ID Date Data Source [id number] 04/13/2020 09:42:00 AM [facility] Name Value Range Interpretation Code Description Data Pennie rce(s) Supporting Document(s) COMPREHENSIVE METABOLIC PANEL [facility] COMPREHENSIVE METABOLIC PANEL Sodium [Moles/volume] in Serum or Plasma 142 mEq/L 134 - 153 [facility] Potassium [Moles/volume] in Serum or Plasma 4.1 mEq/L 3.6 - 5.0 [facility] Chloride [Moles/volume] in Serum or Plasma 104 mEq/L 98 - 107 [facility] Carbon dioxide, total [Moles/volume] in Serum or Plasma 35 MEQ/L 22 - [address] [facility] Glucose [Mass/volume] in Serum or Plasma 129 MG/DL 65 - [address] [facility] BUN 28 MG/DL 7 - 21 H [facility] Creatinine [Mass/volume] in Serum or Plasma 0.8 MG/DL 0.7 - 1.5 [facility] BUN/CREAT 35 8 - 27 H [facility] al Protein [Mass/volume] in Serum or Plasma 4.7 G/DL 6.3 - 8.[address] [facility] Albumin [Mass/volume] in Serum or Plasma 3.2 G/DL 3.9 - 5.[address] [facility] Globulin [Mass/volume] in Serum by calculation 1.5 GM/DL 2.4 - 3.[address] [facility] A/G RATIO 2.1 0.8 - 2.0 H [facility] al Calcium [Mass/volume] in Serum or Plasma 8.0 MG/DL 8.4 - 10.[address] [facility] Bilirubin.total [Mass/volume] in Serum or Plasma <0.7 MG/DL 0.2 - 1.3 [facility] Alkaline phosphatase [Enzymatic activity/volume] in Serum or Plasma 61 U/L 38 - 126 [facility] Aspartate aminotransferase [Enzymatic activity/volume] in Se rum or Plasma 9 U/L 5 - 40 [facility] Alanine aminotransferase [Enzymatic activity/volume] in Seru m or Plasma 7 U/L 7 - 56 [facility] Anion gap 3 in Serum or Plasma 3.0 mmol/L 8.0 - 16.[address] [facility] AGE 84 yrs [facility] al NON-AA GFR >60 mL/min [facility] ital AFR AMER GFR >60 mL/min [facility] Ho spital Male GFR In terprentation [...] >32 mL/min Normal ID Date Data Source [id number] 04/13/2020 08:37:[address] [facility] Name Value Range Interpretation Code Description Data Pennie rce(s) Supporting Document(s) CBC NO DIFF [facility] ital COMPLETE BLOOD COUNT Leukocytes [#/volume] in Blood by Automated count 9.5 10^3/uL 4.2 - [address] [facility] Erythrocytes [#/volume] in Blood by Automated count 3.79 10^6/uL 4. 50 - 6.[address] [facility] Hemoglobin [Mass/volume] in Blood 11.0 g/dL 14.0 - 16.[address] [facility] Hematocrit [Volume Fraction] of Blood by Automated count 33.8 % 4 1.0 - 51.[address] [facility] Erythrocyte mean corpuscular volume [Entitic volume] by Auto mated count 89.2 fL 80.0 - 94.0 [facility] Erythrocyte mean corpuscular hemoglobin [Entitic mass] by Automated count 29.0 pg 27.0 - 34.0 [facility] Erythrocyte mean corpuscular hemoglobin concentration [Mass/volume] by Automated count 32.5 g/dL 31.0 - 36.0 [facility] Erythrocyte distribution width [Ratio] by Automated count 19.4 % 11.5 - 14.[address] [facility] Platelets [#/volume] in Blood by Automated count 177 10^3/uL 150 - [address] [facility] Platelet mean volume [Entitic volume] in Blood by Automated count 11.0 fL 7.4 - 10.[address] [facility] ID Date Data Source [id number] 04/10/2020 11:45:00 AM EST [facility] Name Value Range Interpretation Code Description Data Pennie [facility](s) Supporting Document(s) SARS coronavirus 2 RNA Not Detected [facility] This lab was ordered by [facility] Rj wang and reported by [facility]. ID Date Data Source [id number] 04/13/2020 06:29:[address] [facility] Name Value Range Interpretation Code Description Data Pennie rce(s) Supporting Document(s) SARS-CoV-2, EUGENE Not Detected Not Detected [facility] This nucleic acid amplification test was developed and its performancecharacteristics determined by [facility]. Nucleic acidamplification tests include PCR and TMA. [...] assay. ORDER COVID [address] [facility] ID Date Data Source [id number] 04/06/2020 09:00:00 AM EST [facility] Name Value Range Interpretation Code Description Data Pennie rce(s) Supporting Document(s) SARS coronavirus 2 RNA Not Detected [facility] This lab was ordered by [facility] kathleen and reported by [facility]. ID Date Data Source [id number] 04/08/2020 06:00:[address] [facility] Name Value Range Interpretation Code Description Data Pennie rce(s) Supporting Document(s) SARS-CoV-2, EUGENE Not Detected Not Detected [facility] Testing was performed using the pradeep(R) SARS-CoV-2 test.This nucleic acid amplification test was developed and its performancecharacteristics determined by [facility]. Nucleic acidamplification tests include PCR and TMA. [...] assay. ORDER COVID [address] [facility] ID Date Data Source [id number] 04/03/2020 12:46:00 PM EST [facility] Name Value Range Interpretation Code Description Data Pennie rce(s) Supporting Document(s) SARS coronavirus 2 RNA Not Detected [facility] This lab was ordered by [facility] kathleen and reported by [facility]. ID Date Data Source [id number] 04/06/2020 08:59:[address] [facility] Name Value Range Interpretation Code Description Data Pennie rce(s) Supporting Document(s) SARS-CoV-2, EUGENE Not Detected Not Detected [facility] This nucleic acid amplification test was developed and its performancecharacteristics determined by [facility]. Nucleic acidamplification tests include PCR and TMA. [...] assay. ORDER COVID [address] [facility] ID Date Data Source [id number] 03/30/2020 10:05:00 AM EST [facility] Name Value Range Interpretation Code Description Data Pennie rce(s) Supporting Document(s) SARS coronavirus 2 RNA [facility] This lab was ordered by [place] and reported by [facility]. ID Date Data Source [id number] 04/01/2020 04:43:[address] [facility] Name Value Range Interpretation Code Description Data Pennie rce(s) Supporting Document(s) SARS-CoV-2, EUGENE Not Detected Not Detected [facility] This nucleic acid amplification test was developed and its performancecharacteristics determined by [facility]. Nucleic acidamplification tests include PCR and TMA. [...] in this assay. ID Date Data Source [id number] 03/27/2020 09:50:00 AM EST [facility] Name Value Range Interpretation Code Description Data Pennie rce(s) Supporting Document(s) SARS coronavirus 2 RNA [facility] This lab was ordered by [place] Cyril wang and reported by [facility]. ID Date Data Source [id number] 03/30/2020 10:50:[address] [facility] Name Value Range Interpretation Code Description Data Pennie rce(s) Supporting Document(s) SARS-CoV-2, EUGENE Not Detected Not Detected [facility] This nucleic acid amplification test was developed and its performancecharacteristics determined by [facility]. Nucleic acidamplification tests include PCR and TMA. [...] in this assay. ID Date Data Source [id number] 03/23/2020 01:00:00 PM EST [facility] Name Value Range Interpretation Code Description Data Pennie rce(s) Supporting Document(s) SARS coronavirus 2 RNA [facility] This lab was ordered by [facility] kathleen and reported by [facility]. ID Date Data Source [id number] 03/25/2020 04:09:[address] [facility] Name Value Range Interpretation Code Description Data Pennie rce(s) Supporting Document(s) SARS-CoV-2, EUGENE Not Detected Not Detected [facility] This nucleic acid amplification test was developed and its performancecharacteristics determined by [employer]. Nucleic acidamplification tests include PCR and TMA. [...] in this assay. ID Date Data Source [id number] 03/16/2020 08:23:[address] [facility] Name Value Range Interpretation Code Description Data Pennie rce(s) Supporting Document(s) COMPREHENSIVE METABOLIC PANEL [facility] COMPREHENSIVE METABOLIC PANEL Sodium [Moles/volume] in Serum or Plasma 145 mEq/L 134 - 153 [facility] Potassium [Moles/volume] in Serum or Plasma 3.9 mEq/L 3.6 - 5.0 [facility] Chloride [Moles/volume] in Serum or Plasma 107 mEq/L 98 - 107 [facility] Carbon dioxide, total [Moles/volume] in Serum or Plasma 35 MEQ/L 22 - [address] [facility] Glucose [Mass/volume] in Serum or Plasma 113 MG/DL 65 - [address] [facility] BUN 19 MG/DL 7 - 21 [facility] Creatinine [Mass/volume] in Serum or Plasma 0.9 MG/DL 0.7 - 1.5 [facility] BUN/CREAT 21 8 - [facility] Protein [Mass/volume] in Serum or Plasma 4.6 G/DL 6.3 - 8.[address] [facility] Albumin [Mass/volume] in Serum or Plasma 3.1 G/DL 3.9 - 5.[address] [facility] Globulin [Mass/volume] in Serum by calculation 1.5 GM/DL 2.4 - 3.[address] [facility] A/G RATIO 2.1 0.8 - 2.0 H [facility] al Calcium [Mass/volume] in Serum or Plasma 8.3 MG/DL 8.4 - 10.[address] [facility] Bilirubin.total [Mass/volume] in Serum or Plasma <0.7 MG/DL 0.2 - 1.3 [facility] Alkaline phosphatase [Enzymatic activity/volume] in Serum or Plasma 58 U/L 38 - 126 [facility] Aspartate aminotransferase [Enzymatic activity/volume] in Serum or Plasma 11 U/L 5 - 40 [facility] Alanine aminotransferase [Enzymatic activity/volume] in Seru m or Plasma 11 U/L 7 - 56 [facility] Anion gap 3 in Serum or Plasma 3.0 mmol/L 8.0 - 16.[address] [facility] AGE 84 yrs [facility] NON-AA GFR >60 mL/min [facility] ital AFR AMER GFR >60 mL/min [facility] Ho spital Male GFR In terprentation [...] >32 mL/min Normal ID Date Data Source [id number] 03/16/2020 07:58:[address] [facility] Name Value Range Interpretation Code Description Data Pennie rce(s) Supporting Document(s) CBC NO DIFF [facility] ital COMPLETE BLOOD COUNT Leukocytes [#/volume] in Blood by Automated count 9.1 10^3/uL 4.2 - [address] [facility] Erythrocytes [#/volume] in Blood by Automated count 3.49 10^6/uL 4. 50 - 6.[address] [facility] Hemoglobin [Mass/volume] in Blood 10.1 g/dL 14.0 - 16.[address] [facility] Hematocrit [Volume Fraction] of Blood by Automated count 31.6 % 4 1.0 - 51.[address] [facility] Erythrocyte mean corpuscular volume [Entitic volume] by Auto mated count 90.5 fL 80.0 - 94.0 [facility] Erythrocyte mean corpuscular hemoglobin [Entitic mass] by Automated count 28.9 pg 27.0 - 34.0 [facility] Erythrocyte mean corpuscular hemoglobin concentration [Mass/volume] by Automated count 32.0 g/dL 31.0 - 36.0 [facility] Erythrocyte distribution width [Ratio] by Automated count 19.3 % 11.5 - 14.[address] [facility] Platelets [#/volume] in Blood by Automated count 166 10^3/uL 150 - [address] [facility] Platelet mean volume [Entitic volume] in Blood by Automated count 10.5 fL 7.4 - 10.[address] [facility] ID Date Data Source [id number] 02/26/2020 06:30:00 AM [facility] Name Value Range Interpretation Code Description Data Pennie rce(s) Supporting Document(s) Levetiracetam [Mass/volume] in Serum or Plasma 21.8 ug/mL 10.0-40.0 [facility] This test was developed and its performa nce characteristicsdetermined by [facility]. It has not been cleared or approvedby the Food and Drug Administration. ID Date Data Source [id number] 02/17/2020 10:37:00 AM EST [facility] Name Value Range Interpretation Code Description Data Pennie rce(s) Supporting Document(s) Calcium [Mass/volume] in Serum or Plasma 8.4 [facility] ([facility]) Alanine aminotransferase [Enzymatic activity/volume] in Serum or Pl asma 8 [facility] ([facility]) Albumin [Mass/volume] in Serum or Plasma 2.9 [facility] ([facility]) Carbon dioxide, total [Moles/volume] in Serum or Plasma 32 [facility] ([facility]) Chloride [Moles/volume] in Serum or Plasma 106 [facility] ([facility]) Potassium [Moles/volume] in Serum or Plasma 4.1 [facility] ([facility]) Alkaline phosphatase [Enzymatic activity/volume] in Serum or Plasma 7 1 [facility] ([facility]) Protein [Mass/volume] in Serum or Plasma 4.3 [facility] ([facility]) Urea nitrogen [Mass/volume] in Serum or Plasma 18 [facility] ([facility]) Sodium 143 [facility] ([facility]) Aspartate aminotransferase [Enzymatic activity/volume] in Serum or Plasma 12 [facility] ([facility]) Glucose 160 65-110 [facility] ([facility]) Creatinine For GFR 1.0 [facility] ID Date Data Source [id number] 02/17/2020 10:37:00 AM EST [facility] Name Value Range Interpretation Code Description Data Pennie rce(s) Supporting Document(s) Iron 61 42-135 [facility] ([facility]) Iron binding capacity [Mass/volume] in Serum or Plasma 164 [facility] ([facility]) Tibc % Saturation 37 [facility] ([facility]) ID Date Data Source [id number] 02/19/2020 09:10:00 PM [facility] Name Value Range Interpretation Code Description Data Pennie rce(s) Supporting Document(s) Levetiracetam [Mass/volume] in Serum or Plasma 29.4 ug/mL 10.0-40.0 [facility] This test was developed and its performa nce characteristicsdetermined by [facility]. It has not been cleared or approvedby the Food and Drug Administration. ID Date Data Source [id number] 02/17/2020 08:57:00 AM [facility] Name Value Range Interpretation Code Description Data Pennie rce(s) Supporting Document(s) Ferritin [Mass/volume] in Serum or Plasma 236.1 ng/mL 5.0 - 244 [facility] ID Date Data Source [id number] 02/17/2020 08:48:00 AM [facility] Name Value Range Interpretation Code Description Data Pennie rce(s) Supporting Document(s) CBC NO DIFF [facility] ital COMPLETE BLOOD COUNT Leukocytes [#/volume] in Blood by Automated count 9.0 10^3/uL 4.2 - [address] [facility] Erythrocytes [#/volume] in Blood by Automated count 3.09 10^6/uL 4. 50 - 6.[address] [facility] Hemoglobin [Mass/volume] in Blood 9.0 g/dL 14.0 - 16.[address] [facility] Hematocrit [Volume Fraction] of Blood by Automated count 27.6 % 4 1.0 - 51.[address] [facility] Erythrocyte mean corpuscular volume [Entitic volume] by Auto mated count 89.3 fL 80.0 - 94.0 [facility] Erythrocyte mean corpuscular hemoglobin [Entitic mass] by Automated count 29.1 pg 27.0 - 34.0 [facility] Erythrocyte mean corpuscular hemoglobin concentration [Mass/volume] by Automated count 32.6 g/dL 31.0 - 36.0 [facility] Erythrocyte distribution width [Ratio] by Automated count 18.9 % 11.5 - 14.[address] [facility] Platelets [#/volume] in Blood by Automated count 187 10^3/uL 150 - [address] [facility] Platelet mean volume [Entitic volume] in Blood by Automated count 11.1 fL 7.4 - 10.[address] [facility] ID Date Data Source [id number] 02/17/2020 08:44:00 AM [facility] Name Value Range Interpretation Code Description Data Pennie rce(s) Supporting Document(s) Iron [Mass/volume] in Serum or Plasma 61 UG/DL 42 - 135 [facility] Iron binding capacity.unsaturated [Mass/volume] in Serum or Plasma 103 UG/DL 112 - [address] [facility] Iron binding capacity [Mass/volume] in Serum or Plasma 164 ug/dL 250 - [address] [facility] Iron saturation [Mass Fraction] in Serum or Plasma 37 % [facility] ID Date Data Source [id number] 02/17/2020 08:44:00 AM [facility] Name Value Range Interpretation Code Description Data Pennie rce(s) Supporting Document(s) COMPREHENSIVE METABOLIC PANEL [facility] COMPREHENSIVE METABOLIC PANEL Sodium [Moles/volume] in Serum or Plasma 143 mEq/L 134 - 153 [facility] Potassium [Moles/volume] in Serum or Plasma 4.1 mEq/L 3.6 - 5.0 [facility] Chloride [Moles/volume] in Serum or Plasma 106 mEq/L 98 - 107 [facility] Carbon dioxide, total [Moles/volume] in Serum or Plasma 32 MEQ/L 22 - [address] [facility] Glucose [Mass/volume] in Serum or Plasma 160 MG/DL 65 - [address] [facility] BUN 18 MG/DL 7 - 21 [facility] Creatinine [Mass/volume] in Serum or Plasma 1.0 MG/DL 0.7 - 1.5 [facility] BUN/CREAT 18 8 - 27 [facility] Protein [Mass/volume] in Serum or Plasma 4.3 G/DL 6.3 - 8.[address] [facility] Albumin [Mass/volume] in Serum or Plasma 2.9 G/DL 3.9 - 5.[address] [facility] Globulin [Mass/volume] in Serum by calculation 1.4 GM/DL 2.4 - 3.[address] [facility] A/G RATIO 2.1 0.8 - 2.0 H [facility] Calcium [Mass/volume] in Serum or Plasma 8.4 MG/DL 8.4 - 10.2 [facility] Bilirubin.total [Mass/volume] in Serum or Plasma <0.7 MG/DL 0.2 - 1.3 [facility] Alkaline phosphatase [Enzymatic activity/volume] in Serum or Plasma 71 U/L 38 - 126 [facility] Aspartate aminotransferase [Enzymatic activity/volume] in Serum or Plasma 12 U/L 5 - 40 [facility] Alanine aminotransferase [Enzymatic activity/volume] in Seru m or Plasma 8 U/L 7 - 56 [facility] Anion gap 3 in Serum or Plasma 5.0 mmol/L 8.0 - 16.[address] [facility] AGE 84 yrs [facility] al NON-AA GFR >60 mL/min [facility] ital AFR AMER GFR >60 mL/min [facility] Ho spital Male GFR In terprentation [...] >32 mL/min Normal ID Date Data Source [id number] 02/17/2020 08:42:[address] [facility] Name Value Range Interpretation Code Description Data Pennie rce(s) Supporting Document(s) [facility] Cholesterol [Mass/volume] in Serum or Plasma 132 MG/DL 131 - 200 [facility] Deprecated Triglyceride [Mass/volume] in Serum or Plasma 83 MG/DL 3 5 - 160 [facility] HDL 35 MG/DL 29 - 86 [facility] Cholesterol in LDL [Mass/volume] in Serum or Plasma by Direc t assay 83 mg/dL 65 - 175 [facility] Cholesterol.total/Cholesterol in HDL [Mass Ratio] in Serum o r Plasma 3.8 3.4 - 4.9 [facility] LDL/HDL 2.37 1.00 - 3.55 [facility] ital CVE RISK CHOL/HDL LDL/HDLMEN: 1/2 AVERAGE 3.43 1.00 AVERAGE 4.97 3.55 2X AVERAGE 9.55 6.25 3X AVERAGE 23.99 7.99WOMEN: 1/2 AVERAGE 3.27 1.47 AVERAGE 4.44 3.22 2X AVERAGE 7.05 5.03 3X AVERAGE 11.04 6.14 ID Date Data Source [id number] 01/22/2020 10:20:00 AM EDT [facility] ([facility]) Name Value Range Interpretation Code Description Data Pennie rce(s) Supporting Document(s) Magnesium [Mass/volume] in Serum or Plasma 1.6 [facility] ([facility]) ID Date Data Source [id number] 01/22/2020 10:20:00 AM EDT [facility] Name Value Range Interpretation Code Description Data Pennie rce(s) Supporting Document(s) Iron 48 42-135 [facility] ([facility]) Iron binding capacity [Mass/volume] in Serum or Plasma 192 [facility] ([facility]) Tibc % Saturation 25 [facility] ID Date Data Source [id number] 01/22/2020 10:20:00 AM EDT [facility] Name Value Range Interpretation Code Description Data Pennie rce(s) Supporting Document(s) Free T4 1.53 [facility] ([facility]) Thyroid Stimulating Hormone 2.54 [facility] ([facility]) ID Date Data Source [id number] 01/22/2020 10:20:00 AM EDT [facility] Name Value Range Interpretation Code Description Data Pennie rce(s) Supporting Document(s) Calcium [Mass/volume] in Serum or Plasma 8.9 [facility] ([facility]) Alanine aminotransferase [Enzymatic activity/volume] in Serum or Pl asma 8 [facility] ([facility]) Albumin [Mass/volume] in Serum or Plasma 3.3 [facility] ([facility]) Carbon dioxide, total [Moles/volume] in Serum or Plasma 32 [facility] ([facility]) Chloride [Moles/volume] in Serum or Plasma 105 [facility] ([facility]) Alkaline phosphatase [Enzymatic activity/volume] in Serum or Plasma 7 0 [facility] ([facility]) Protein [Mass/volume] in Serum or Plasma 5.2 [facility] ([facility]) Potassium [Moles/volume] in Serum or Plasma 4.0 [facility] ([facility]) Sodium 144 [facility] (Cardiology A [facility]) Urea nitrogen [Mass/volume] in Serum or Plasma 19 [facility] ([facility]) Aspartate aminotransferase [Enzymatic activity/volume] in Serum or Plasma 12 [facility] ([facility]) Glucose 100 65-110 [facility] ([facility]) Creatinine For GFR 1.0 [facility] ([facility]) ID Date Data Source [id number] 01/22/2020 08:27:[address] [facility] Name Value Range Interpretation Code Description Data Pennie rce(s) Supporting Document(s) Thyroxine (T4) free index in Serum or Plasma by calculation 1.53 NG/DL 0.93 - 1.70 [facility] ID Date Data Source [id number] 01/22/2020 08:27:[address] [facility] Name Value Range Interpretation Code Description Data Pennie rce(s) Supporting Document(s) Thyrotropin [Units/volume] in Serum or Plasma by Detec tion limit <= 0.05 mIU/L 2.54 uIU/mL 0.47 - 5.01 [facility] ID Date Data Source [id number] 01/22/2020 08:27:[address] [facility] Name Value Range Interpretation Code Description Data Pennie rce(s) Supporting Document(s) Ferritin [Mass/volume] in Serum or Plasma 460.0 ng/mL 5.0 - [address] [facility] ID Date Data Source [id number] 01/22/2020 08:22:[address] [facility] Name Value Range Interpretation Code Description Data Pennie rce(s) Supporting Document(s) Magnesium [Mass/volume] in Serum or Plasma 1.6 MG/DL 1.7 - 2.[address] [facility] ID Date Data Source [id number] 01/22/2020 08:22:[address] [facility] Name Value Range Interpretation Code Description Data Pennie rce(s) Supporting Document(s) Iron [Mass/volume] in Serum or Plasma 48 UG/DL 42 - 135 [facility] Iron binding capacity.unsaturated [Mass/volume] in Serum or Plasma 144 UG/DL 112 - 347 [facility] Iron binding capacity [Mass/volume] in Serum or Plasma 192 ug/dL 250 - [address] [facility] Iron saturation [Mass Fraction] in Serum or Plasma 25 % [facility] ID Date Data Source [id number] 01/22/2020 08:22:[address] [facility] Name Value Range Interpretation Code Description Data Pennie rce(s) Supporting Document(s) [facility] Cholesterol [Mass/volume] in Serum or Plasma 154 MG/DL 131 - 200 [facility] Deprecated Triglyceride [Mass/volume] in Serum or Plasma 156 MG/DL 3 5 - 160 [facility] HDL 29 MG/DL 29 - 86 [facility] Cholesterol in LDL [Mass/volume] in Serum or Plasma by Direc t assay 99 mg/dL 65 - 175 [facility] Cholesterol.total/Cholesterol in HDL [Mass Ratio] in Serum o r Plasma 5.3 3.4 - 4.[address] [facility] LDL/HDL 3.41 1.00 - 3.55 [facility] CVE RISK CHOL/HDL LDL/HDLMEN: 1/2 AVERAGE 3.43 1.00 AVERAGE 4.97 3.55 2X AVERAGE 9.55 6.25 3X AVERAGE 23.99 7.99WOMEN: 1/2 AVERAGE 3.27 1.47 AVERAGE 4.44 3.22 2X AVERAGE 7.05 5.03 3X AVERAGE 11.04 6.14 ID Date Data Source [id number] 01/22/2020 08:22:[address] [facility] Name Value Range Interpretation Code Description Data Pennie rce(s) Supporting Document(s) COMPREHENSIVE METABOLIC PANEL [facility] COMPREHENSIVE METABOLIC PANEL Sodium [Moles/volume] in Serum or Plasma 144 mEq/L 134 - 153 [facility] Potassium [Moles/volume] in Serum or Plasma 4.0 mEq/L 3.6 - 5.0 [facility] Chloride [Moles/volume] in Serum or Plasma 105 mEq/L 98 - 107 [facility] Carbon dioxide, total [Moles/volume] in Serum or Plasma 32 MEQ/L 22 - [address] [facility] Glucose [Mass/volume] in Serum or Plasma 100 MG/DL 65 - 110 [facility] BUN 19 MG/DL 7 - 21 [facility] al Creatinine [Mass/volume] in Serum or Plasma 1.0 MG/DL 0.7 - 1.5 [facility] BUN/CREAT 19 8 - 27 [facility] al Protein [Mass/volume] in Serum or Plasma 5.2 G/DL 6.3 - 8.[address] [facility] Albumin [Mass/volume] in Serum or Plasma 3.3 G/DL 3.9 - 5.[address] [facility] Globulin [Mass/volume] in Serum by calculation 1.9 GM/DL 2.4 - 3.[address] [facility] A/G RATIO 1.7 0.8 - 2.0 [facility] al Calcium [Mass/volume] in Serum or Plasma 8.9 MG/DL 8.4 - 10.2 [facility] Bilirubin.total [Mass/volume] in Serum or Plasma <0.7 MG/DL 0.2 - 1.3 [facility] Alkaline phosphatase [Enzymatic activity/volume] in Serum or Plasma 70 U/L 38 - 126 [facility] Aspartate aminotransferase [Enzymatic activity/volume] in Serum or Plasma 12 U/L 5 - 40 [facility] Alanine aminotransferase [Enzymatic activity/volume] in Seru m or Plasma 8 U/L 7 - 56 [facility] Anion gap 3 in Serum or Plasma 7.0 mmol/L 8.0 - 16.[address] [facility] AGE 84 yrs [facility] NON-AA GFR >60 mL/min [facility] ital AFR AMER GFR >60 mL/min [facility] Ho spital Male GFR In terprentation [...] >32 mL/min Normal ID Date Data Source [id number] 01/22/2020 07:56:[address] [facility] Name Value Range Interpretation Code Description Data Pennie rce(s) Supporting Document(s) CBC NO DIFF [facility] ital COMPLETE BLOOD COUNT Leukocytes [#/volume] in Blood by Automated count 12.1 10^3/uL 4.2 - 11.[address] [facility] Erythrocytes [#/volume] in Blood by Automated count 3.44 10^6/uL 4. 50 - 6.[address] [facility] Hemoglobin [Mass/volume] in Blood 10.0 g/dL 14.0 - 16.[address] [facility] Hematocrit [Volume Fraction] of Blood by Automated count 30.4 % 4 1.0 - 51.[address] [facility] Erythrocyte mean corpuscular volume [Entitic volume] by Auto mated count 88.4 fL 80.0 - 94.0 [facility] Erythrocyte mean corpuscular hemoglobin [Entitic mass] by Automated count 29.1 pg 27.0 - 34.0 [facility] Erythrocyte mean corpuscular hemoglobin concentration [Mass/volume] by Automated count 32.9 g/dL 31.0 - 36.0 [facility] Erythrocyte distribution width [Ratio] by Automated count 19.3 % 11.5 - 14.[address] [facility] Platelets [#/volume] in Blood by Automated count 216 10^3/uL 150 - [address] [facility] Platelet mean volume [Entitic volume] in Blood by Automated count 10.5 fL 7.4 - 10.[address] [facility] ID Date Data Source [id number] 01/17/2020 08:27:00 PM EDT [facility] ([facility] Name Value Range Interpretation Code Description Data Pennie rce(s) Supporting Document(s) Color, Urine RFX Laboratory test result Normal ( applies to non-numeric results) [facility] ([facility] ) Appearance, Urine RFX Laboratory test result Nor mal (applies to non-numeric results) [facility] ([facility] ) Specific [place] Ur Auto RFX 1.015 1.002-1.035 Nor mal (applies to non-numeric results) [facility] ([facility] ) Protein, Urine Auto RFX Laboratory test result N ormal (applies to non-numeric results) [facility] ([facility] ) PH,Urine RFX 6.0 units 5.0-9.0 Normal (applies to non-numeric res ults) [facility] ([facility] Glucose, Urine (Ua) Auto RFX Laboratory test result Normal (applies to non- numeric results) [facility] ([facility] ) Ketone, Urine Auto RFX Laboratory test result No rmal (applies to non-numeric results) [facility] ([facility] ) Urobilinogen, Urine Auto RFX 0.2 mg/dL 0.0-2.0 Nor mal (applies to non-numeric results) [facility] ([facility] ) Bilirubin, Urine Auto RFX Laboratory test result Normal (applies to non- numeric results) [facility] ([facility] ) Nitrite, Urine Auto RFX Laboratory test result N ormal (applies to non-numeric results) [facility] ([facility] ) Blood, Urine Blood RFX Laboratory test result No rmal (applies to non-numeric results) [facility] ([facility] ) Leukocyte Esterase Ur Auto RFX Laboratory test result Normal (applies to non- numeric results) [facility] ([facility] ) WBC, Urine Auto RFX 3 /HPF 0-3 Normal (applies to non-nume cristian results) [facility] ([facility] Squam Epithelial Cell Ur Aurfx 0 /HPF 0-6 N ormal (applies to non-numeric results) [facility] ([facility] ) Bacteria, Urine Auto RFX Laboratory test result Normal (applies to non-numeric results) [facility] ([facility] ) RBC, Urine Auto RFX 0 /HPF 0-3 Normal (applies to non-nume cristian results) [facility] ([facility] Hyaline Cast, Urine Auto RFX 0 /LPF 0-1 Normal (appl ies to non-numeric results) [facility] ([facility] ID Date Data Source [id number] 01/17/2020 06:14:00 PM EDT [facility] ([facility] Name Value Range Interpretation Code Description Data Pennie rce(s) Supporting Document(s) Lactate [Mass/volume] in Serum or Plasma 0.9 mmol/L 0.4-2.0 Normal (applies to non-numeric results) [facility] ([facility]) Y/N query for Sepsis Lactate Rule: Y ID Date Data Source [id number] 01/17/2020 06:14:00 PM EDT [facility] ([facility] Name Value Range Interpretation Code Description Data Pennie rce(s) Supporting Document(s) CK-MB Value Mass 1.5 ng/mL Normal (applies to non-numeric results) [facility] ([facility] CPK Creatine Phosphokinase 24 U/L 39-308 Below low normal [facility] ([facility] MB/CK Relative Index 6.25 Above high normal [facility] ([facility] <content>DIAGNOSIS CRITERIA</content>
<content>MMB ng/ml Relative Index (RI)</content>
<content>NON-AMI < or = 5 N/A</content>
<content>CHANEY ZONE > 5 < or = 4</content>
<content>AMI > 5 > 4</content>
<content></content> Troponin I Laboratory test result Normal (applies to non-n umeric results) [facility] <content>Troponin I Reference Interval f or Siemens Ira LOCI:</content>
<content></content>
<content>99th Percentile= 0.00-0.045 ng/ml</content>
<content></content>
<content>Risk Stratification:</content>
<content><= 0.10 ng/ml Decreased Risk for Adverse Clinical</content>
<content>Events.</content>
<content>0.10-1.50 ng/ml Increased Risk for Adverse Clinical</content>
<content>Events. Evaluation of additional</content>
<content>criterion and/or repeat testing in 2-6</content>
<content>hours is suggested to rule out myocardial</content>
<content>damage.</content>
<content>>= 1.50 ng/ml Indicative of Myocardial Injury.</content>
<content></content> ID Date Data Source [id number] 01/17/2020 06:14:00 PM EDT [facility] ([facility] Name Value Range Interpretation Code Description Data Pennie rce(s) Supporting Document(s) Ast/Sgot 14 U/L 7-37 Normal (applies to non-numeric resul ts) [facility] ([facility] Alt/SGPT 17 U/L 12-78 Normal (applies to non-numeric resul ts) [facility] ([facility] Bilirubin,Total 0.6 mg/dL 0.2-1.0 Normal (applies to non-numeric results) [facility] ([facility] Alkaline Phosphatase 70 U/L 45-117 Normal (applies to non-num romeo results) [facility] Total Protein 5.4 GM/DL 6.4-8.2 Below low normal [facility] ([facility] Bilirubin,Direct 0.2 mg/dL 0.0-0.2 Normal (applies to non-numeric results) [facility] ([facility] Albumin 2.5 GM/DL 3.2-5.2 Below low normal [facility] Albumin/Globulin Ratio 0.9 Normal (applies to non-n umeric results) [facility] ([facility] ID Date Data Source [id number] 01/17/2020 06:14:00 PM EDT [facility] Name Value Range Interpretation Code Description Data Pennie rce(s) Supporting Document(s) Glucose, Fasting 114 mg/dL 70-100 Above high normal M [facility] ([facility] Blood Urea Nitrogen 18 mg/dL 7-18 Normal (applies to non-nume cristian results) [facility] ([facility] Creatinine For GFR 1.00 mg/dL 0.70-1.30 Normal (applies to non -numeric results) [facility] ([facility] Glomerular Filtration Rate Laboratory test result Normal (applies to non- numeric results) [facility] ([facility] ) <content>Units are mL/min/1.73 m2</content>
<content></content>
<content>Chronic Kidney Disease Staging per NKF:</content>
<content></content>
<content>Stage I & II GFR >=60 Normal to Mildly Decreased</content>
<content>Stage III GFR 30- 59 Moderately Decreased</content>
<content>Stage IV GFR 15-29 Severely Decreased</content>
<content>Stage V GFR <15 Very Little GFR Left</content>
<content>ESRD GFR <15 on [employer]OTECTION</content>
<content></content> Potassium Serum 4.3 meq/L 3.5-5.1 Normal (applies to non-numeric results) [facility] ([facility] Sodium Level 142 meq/L 136-145 Normal (applies to non-numeric res ults) [facility] ([facility] Chloride Level 107 meq/L 98-107 Normal (applies to non-numeric r esults) [facility] ([facility] Calcium Level 8.7 mg/dL 8.8-10.2 Below low normal [facility] T ([facility] Anion Gap 4 meq/L 8-16 Below low normal [facility] ( [facility] Carbon Dioxide Level 31 meq/L 21-32 Normal (applies to non-num romeo results) [facility] ([facility] ID Date Data Source [id number] 01/17/2020 06:14:00 PM EDT [facility] ([facility] Name Value Range Interpretation Code Description Data Pennie rce(s) Supporting Document(s) Osmolality of Serum or Plasma 292 MOSM/KG 280-301 No rmal (applies to non-numeric results) [facility] ([facility] ) Thyrotropin [Units/volume] in Serum or Plasma 0.928 uIU/ML 0. 358-3.740 Normal (applies to non-numeric results) [facility] ([facility] ID Date Data Source [id number] 01/17/2020 06:14:00 PM EDT [facility] ([facility] Name Value Range Interpretation Code Description Data Pennie rce(s) Supporting Document(s) White Blood Count 13.4 10 4.0-10.0 Above high normal [facility] ([facility] Red Blood Count 3.51 10 4.30-6.10 Below low normal [facility] ([facility] Hemoglobin 9.9 g/dL 13.5-17.5 Below low normal [facility] ( [facility] Mean Corpuscular Hemoglobin 28.2 pg 27.0-33.0 Norm al (applies to non-numeric results) [facility] ([facility] ) Mean Corpuscular Volume 89.5 fl 80.0-96.0 Normal ( applies to non-numeric results) [facility] ([facility] ) Hematocrit 31.4 % 42.0-52.0 Below low normal [facility] ( [facility] Mean Corpuscular HGB Conc 31.5 g/dL 32.0-36.5 Below low normal [facility] ([facility] Red Cell Distribution Width 19.2 % 11.5-14.5 Above high normal [facility] ([facility] Nucleated Red Blood Cell % 0.0 % 0-0 Normal (applies to n on-numeric results) [facility] ([facility] Platelet Count, Automated 201 10 150-450 Normal (applies to non-numeric results) [facility] ([facility] ) ID Date Data Source [id number] 01/17/2020 06:14:00 PM EDT [facility] Name Value Range Interpretation Code Description Data Pennie rce(s) Supporting Document(s) Neutrophils 83 % 28-66 Above high normal [facility] ([facility] Lymphocytes 5 % 16-44 Below low normal [facility] ([facility] Monocytes 7 % 0-5 Above high normal [facility] Bands 1 % Normal (applies to non-numeric resul ts) [facility] ([facility] Atypical Lymph 1 % 0-5 Normal (applies to non-numeric r esults) [facility] ([facility] Myelocytes 3 % 0-0 Above high normal [facility] ([facility] Anisocytosis Laboratory test result Normal (applies to non -numeric results) [facility] ([facility] ID Date Data Source [id number] 01/17/2020 06:14:00 PM EDT [facility] ([facility] Name Value Range Interpretation Code Description Data Pennie rce(s) Supporting Document(s) Platelets [#/volume] in Blood by Estimate Laboratory test result Normal (applies to non-numeric results) [facility] ([facility] ID Date Data Source [id number] 12/24/2019 04:02:00 PM EDT [facility] ([facility] ) Name Value Range Interpretation Code Description Data Pennie rce(s) Supporting Document(s) Leukocytes [#/volume] in Blood by Automated count 14.1 x10E3/uL 3.4-1 0.8 [facility] ([facility] ) Hemoglobin [Mass/volume] in Blood 10.4 g/dL 13.0-17.7 [facility] Erythrocytes [#/volume] in Blood by Automated count 3.59 x10E6/uL 4.1 4-5.80 [facility] Hematocrit [Volume Fraction] of Blood by Automated count 31.8 % 3 7.5-51.0 [facility] ([facility] ) Erythrocyte mean corpuscular volume [Entitic volume] by Auto mated count 89 fL 79-97 [facility] Erythrocyte mean corpuscular hemoglobin [Entitic mass] by Automated count 29.0 pg 26.6-33.0 [facility] ([facility], ) Platelets [#/volume] in Blood by Automated count 193 x10E3/uL 150-450 [facility] ([facility] ) Erythrocyte mean corpuscular hemoglobin concentration [Mass/volume] by Automated count 32.7 g/dL 31.5-35.7 [facility] ([facility], ) Erythrocyte distribution width [Ratio] by Automated count 18.3 % 11.6-15.4 [facility] ([facility] ) Monocytes/100 leukocytes in Blood by Automated count 16 % [facility] ([facility], ) Neutrophils/100 leukocytes in Blood by Automated count 74 % [facility] ([facility] ) Laboratory test finding (navigational concept) 3 % [facility] ([facility], ) Eosinophils/100 leukocytes in Blood by Automated count 1 % [facility] ([facility], ) Immature cells [#/volume] in Blood Laboratory test result [facility] ([facility]) Basophils/100 leukocytes in Blood by Automated count 1 % [facility] ([facility]) Lymphocytes [#/volume] in Blood 0.4 x10E3/uL 0.7-3.1 [facility] ([facility]) Neutrophils [#/volume] in Blood by Automated count 10.4 x10E3/uL 1.4- 7.0 [facility] ([facility]) Eosinophils [#/volume] in Blood by Automated count 0.1 x10E3/uL 0.0-0 .4 [facility] ([facility]) Monocytes [#/volume] in Blood 2.3 x10E3/uL 0.1-0.9 [facility] ([facility]) Basophils [#/volume] in Blood by Automated count 0.1 x10E3/uL 0.0-0.2 [facility] ([facility]) Immature granulocytes [#/volume] in Blood by Automated count Laboratory test result [facility] ([facility]) Nucleated erythrocytes/100 leukocytes [Ratio] in Blood by Automated count Laboratory test result [facility] Immature granulocytes/100 leukocytes in Blood by Autom ated count Laboratory test result [facility] ([facility]) Morphology [Interpretation] in Blood Narrative Laboratory test result [facility] ([facility]) Manual differential was performed. Bands Laboratory test result [facility] ([facility]) Promyelocytes [#] in Body fluid by Manual count Laboratory test resul t [facility] ([facility]) Metamyelocytes/100 leukocytes in Blood 1 % 0-0 [facility] ([facility]) Myelocytes [#/volume] in Blood 4 % 0-0 [facility] ([facility]) Laboratory test finding (navigational concept) Laboratory test result [facility] ([facility]) Laboratory test finding (navigational concept) Laboratory test result [facility] ([facility]) Laboratory test finding (navigational concept) Laboratory test result [facility] ([facility]) ID Date Data Source [id number] 12/24/2019 04:02:00 PM EDT [facility] Name Value Range Interpretation Code Description Data Pennie rce(s) Supporting Document(s) Leukocytes [#/volume] in Blood by Automated count 14.1 x10E3/uL 3.4-10.8 Above high normal [facility] ([facility] ) Hemoglobin [Mass/volume] in Blood 10.4 g/dL 13.0-17.7 Below low nor mal [facility] ([facility] Erythrocytes [#/volume] in Blood by Automated count 3.59 x10E6/u L 4.14-5.80 Below low normal [facility] ([facility] ) Erythrocyte mean corpuscular volume [Entitic volume] by Auto mated count 89 fL 79-97 [facility] ([facility] Hematocrit [Volume Fraction] of Blood by Automated count 31.8 % 37.5-51.0 Below low normal [facility] ([facility] ) Erythrocyte mean corpuscular hemoglobin [Entitic mass] by Automated count 29.0 pg 26.6-33.0 [facility] ([facility] Erythrocyte mean corpuscular hemoglobin concentration [Mass/volume] by Automated count 32.7 g/dL 31.5-35.7 [facility] ([facility] Platelets [#/volume] in Blood by Automated count 193 x10E3/uL 150-450 [facility] ([facility] Erythrocyte distribution width [Ratio] by Automated count 18.3 % 11.6-15.4 Above high normal [facility] ([facility] ) Lymphs 3 % [facility] Monocytes/100 leukocytes in Blood by Automated count 16 % [facility] ([facility] Neutrophils 74 % [facility] ([facility] Basophils/100 leukocytes in Blood by [...] nor mal [facility] ([facility] Eosinophils [#/volume] in Blood by Automated count 0.1 x10E3/uL 0.0-0 .4 [facility] ([facility] Monocytes [#/volume] in Blood 2.3 x10E3/uL 0.1-0.9 Above high norm al [facility] ([facility] Basophils [#/volume] in Blood by Automated count 0.1 x10E3/uL 0.0-0.2 [facility] ([facility] Nucleated erythrocytes/100 leukocytes [Ratio] in Blood by Automated count Laboratory test result [facility] ([facility] Immature granulocytes/100 leukocytes in Blood by Autom ated count Laboratory test result [facility] ([facility] Immature granulocytes [#/volume] in Blood by Automated count Laboratory test result [facility] ([facility] Morphology [Interpretation] in Blood Narrative Laboratory test result [facility] ([facility] Manual differential was performed. Bands Laboratory test result [facility] ([facility] Metamyelocytes 1 % 0-0 Above high normal [facility] ([facility] Myelocytes 4 % 0-0 Above high normal [facility] ([facility] Promyelocytes Laboratory test result [facility] ([facility] Laboratory test finding (navigational concept) Laboratory test result [facility] ([facility] Laboratory test finding (navigational concept) Laboratory test result [facility] ([facility] Laboratory test finding (navigational concept) Laboratory test result MED[facility] ([facility] ID Date Data Source [id number] 12/24/2019 04:01:00 PM EDT [facility] ([facility] ) Name Value Range Interpretation Code Description Data Pennie rce(s) Supporting Document(s) Laboratory test finding (navigational concept) Laboratory test result [facility] ([facility] ) Appearance of Urine Laboratory test result [facility] ([facility]) Specific [place] 1.025 1.00-1.03 [facility] ([facility]) Laboratory test finding (navigational concept) 5.0 5.0-8.0 [facility] ([facility]) Laboratory test finding (navigational concept) Laboratory test result [facility] ([facility]) Laboratory test finding (navigational concept) Laboratory test result [facility] ([facility]) Bilirubin.total [Presence] in Urine by Test strip Laboratory test res ult MEDENT ([facility]) Urobilinogen 0.2 EU/dl 0.2-1.0 [facility] ([facility]) Laboratory test finding (navigational concept) Laboratory test result [facility] ([facility]) Laboratory test finding (navigational concept) Laboratory test result [facility] ([facility]) Laboratory test finding (navigational concept) Laboratory test result [facility] ([facility]) Nitrite Laboratory test result [facility] ([facility]) ID Date Data Source [id number] 12/24/2019 04:01:00 PM EDT [facility] ([facility] Name Value Range Interpretation Code Description Data Pennie rce(s) Supporting Document(s) Appearance of Urine Laboratory test result [facility] ([facility] Specific [place] 1.025 1.00-1.03 [facility] ([facility] Color Urine Laboratory test result M EDENT ([facility] Glucose Urine Laboratory test result [facility] ([facility] Bilirubin.total [Presence] in Urine by Test strip Laboratory test res ult [facility] ([facility] PH Urine 5.0 5.0-8.0 [facility] Blood Urine Laboratory test result M EDENT ([facility] Ketones Laboratory test result [facility] ([facility] Nitrite Laboratory test result [facility] ([facility] Protein Urine Laboratory test result [facility] ([facility] Urobilinogen 0.2 EU/dl 0.2-1.0 [facility] Leukocytes Laboratory test result ME DENT ([facility] ID Date Data Source [id number] 12/07/2019 01:14:00 PM EDT [facility] ([facility]) Name Value Range Interpretation Code Description Data Pennie rce(s) Supporting Document(s) Magnesium [Mass/volume] in Serum or Plasma 1.8 mg/dL 1.8-2.4 [facility] ([facility]) ID Date Data Source [id number] 12/07/2019 01:14:00 PM EDT [facility] ([facility]) Name Value Range Interpretation Code Description Data Pennie rce(s) Supporting Document(s) Blood Urea Nitrogen 22 mg/dL 7-18 [facility] ([facility]) Glucose, Fasting 126 mg/dL 70-100 [facility] ([facility]) Glomerular Filtration Rate Laboratory test result [facility] ([facility]) <content>Units are mL/min/1.73 m2</content>
<content></content>
<content>Chronic Kidney Disease Staging per NKF:</content>
<content></content>
<content>Stage I & II GFR >=60 Normal to Mildly Decreased</content>
<content>Stage III GFR 30- 59 Moderately Decreased</content>
<content>Stage IV GFR 15-29 Severely Decreased</content>
<content>Stage V GFR <15 Very Little GFR Left</content>
<content>ESRD GFR <15 on SENIOR MANAGER ASSET PROTECTION</content>
<content></content>
<content></content> Sodium Level 144 meq/L 136-145 [facility] ([facility]) Creatinine For GFR 1.03 mg/dL 0.70-1.30 [facility] ([facility]) Carbon Dioxide Level 30 meq/L 21-32 [facility] ([facility]) Chloride Level 110 meq/L 98-107 [facility] ([facility]) Potassium Serum 3.9 meq/L 3.5-5.1 [facility] ([facility]) Calcium Level 8.5 mg/dL 8.8-10.2 [facility] ([facility]) Anion Gap 4 meq/L 8-16 [facility] ([facility]) ID Date Data Source [id number] 12/07/2019 01:14:00 PM EDT [facility] Name Value Range Interpretation Code Description Data Pennie rce(s) Supporting Document(s) Magnesium [Mass/volume] in Serum or Plasma 1.8 mg/dL 1.8-2 .4 Normal (applies to non-numeric results) [facility] ([facility]) ID Date Data Source [id number] 12/07/2019 01:14:00 PM EDT [facility] Name Value Range Interpretation Code Description Data Pennie rce(s) Supporting Document(s) Glucose, Fasting 126 mg/dL 70-100 Above high normal M EDENT ([facility] Glomerular Filtration Rate Laboratory test result Normal (applies to non- numeric results) [facility] ([facility] ) <content>Units are mL/min/1.73 m2</content>
<content></content>
<content>Chronic Kidney Disease Staging per NKF:</content>
<content></content>
<content>Stage I & II GFR >=60 Normal to Mildly Decreased</content>
<content>Stage III GFR 30- 59 Moderately Decreased</content>
<content>Stage IV GFR 15-29 Severely Decreased</content>
<content>Stage V GFR <15 Very Little GFR Left</content>
<content>ESRD GFR <15 on SENIOR MANAGER ASSET PROTECTION</content>
<content></content> Blood Urea Nitrogen 22 mg/dL 7-18 Above high normal [facility] ([facility] Creatinine For GFR 1.03 mg/dL 0.70-1.30 Normal (applies to non -numeric results) [facility] ([facility] Potassium Serum 3.9 meq/L 3.5-5.1 Normal (applies to non-numeric results) [facility] ([facility] Sodium Level 144 meq/L 136-145 Normal (applies to non-numeric res ults) [facility] ([facility] Chloride Level 110 meq/L 98-107 Above high normal MED E[facility] ([facility] Carbon Dioxide Level 30 meq/L 21-32 Normal (applies to non-num romeo results) [facility] ([facility] Calcium Level 8.5 mg/dL 8.8-10.2 Below low normal MEDEN T ([facility] Anion Gap 4 meq/L 8-16 Below low normal [facility] ( [facility] ID Date Data Source [id number] 11/12/2019 03:40:00 PM EDT [facility] ([facility] Name Value Range Interpretation Code Description Data Pennie rce(s) Supporting Document(s) Ammonia [Moles/volume] in Plasma 78 ug/dL 28-135 [facility] ([facility] Please note reference interval change* * ID Date Data Source [id number] 11/12/2019 03:40:00 PM EDT [facility] ([facility] Name Value Range Interpretation Code Description Data Pennie rce(s) Supporting Document(s) Thyrotropin [Units/volume] in Serum or Plasma 1.239 ulU/mL 0.60-4.8 [facility] ([facility] ID Date Data Source [id number] 11/12/2019 03:39:00 PM EDT [facility] ([facility] Name Value Range Interpretation Code Description Data Pennie rce(s) Supporting Document(s) No Urine Received Laboratory test result [facility] ([facility] Test(s) 241005-Lwatxdbesadsf Acid, U was developed and its performance characteristics determined by [facility]. It has not been cleared or approved by the Food and Drug Administration. ID Date Data Source [id number] 11/12/2019 03:39:00 PM EDT [facility] ([facility] Name Value Range Interpretation Code Description Data Pennie rce(s) Supporting Document(s) Glucose [Mass/volume] in Serum or Plasma 158 mg/dL 65-99 Above high normal [facility] ([facility] Test(s) 491724-Ziybsqcjmsexx Acid, U was developed and its performance characteristics determined by [facility]. It has not been cleared or approved by the Food and Drug Administration. Creatinine [Mass/volume] in Serum or Plasma 1.26 mg/dL 0.76-1.27 [facility] ([facility] Test(s) 105531-Snyyktxrhjdaa Acid, U was developed and its performance characteristics determined by [facility]. It has not been cleared or approved by the Food and Drug Administration. BUN 21 mg/dL 8-27 [facility] ([facility] Test(s) 823745-Lqhkmceycjepg Acid, U was developed and its performance characteristics determined by [facility]. It has not been cleared or approved by the Food and Drug Administration. eGFR If NonAfricn Am 52 mL/min/1.73 Below low normal [facility] ([facility] Test(s) 071281-Rqabibphcasnr Acid, U was developed and its performance characteristics determined by [facility]. It has not been cleared or approved by the Food and Drug Administration. Urea nitrogen/Creatinine [Mass Ratio] in Serum or Plasma 17 1 0-24 [facility] ([facility] Test(s) 669763-Houaicxogkahk Acid, U was developed and its performance characteristics determined by [facility]. It has not been cleared or approved by the Food and Drug Administration. eGFR If Africn Am 60 mL/min/1.73 MED [facility] ([facility] Test(s) 774531-Tqkbbfwltzycc Acid, U was developed and its performance characteristics determined by [facility]. It has not been cleared or approved by the Food and Drug Administration. Sodium [Moles/volume] in Serum or Plasma 144 mmol/L 134-144 [facility] ([facility] Test(s) 709070-Oorwntiwfdfqz Acid, U was developed and its performance characteristics determined by [facility]. It has not been cleared or approved by the Food and Drug Administration. Chloride [Moles/volume] in Serum or Plasma 105 mmol/L 96-106 [facility] ([facility] Test(s) 658827-Enmwlioisjwmu Acid, U was developed and its performance characteristics determined by [facility]. It has not been cleared or approved by the Food and Drug Administration. Potassium [Moles/volume] in Serum or Plasma 4.2 mmol/L 3.5-5.2 [facility] ([facility] Test(s) 502057-Cogicsnrpcbtn Acid, U was developed and its performance characteristics determined by [facility]. It has not been cleared or approved by the Food and Drug Administration. Calcium [Mass/volume] in Serum or Plasma 8.6 mg/dL 8.6-10.2 [facility] ([facility] Test(s) 801830-Cznevnlpybfkh Acid, U was developed and its performance characteristics determined by [facility]. It has not been cleared or approved by the Food and Drug Administration. Carbon dioxide, total [Moles/volume] in Serum or Plasma 28 mmol/L 20 -29 [facility] ([facility] Test(s) 166117-Txzjdgwhhwjmd Acid, U was developed and its performance characteristics determined by [facility]. It has not been cleared or approved by the Food and Drug Administration. Protein [Mass/volume] in Serum or Plasma 5.4 g/dL 6.0-8.5 Below low normal [facility] ([facility] Test(s) 997666-Fxidtcwivjcta Acid, U was developed and its performance characteristics determined by [facility]. It has not been cleared or approved by the Food and Drug Administration. Albumin [Mass/volume] in Serum or Plasma 3.6 g/dL 3.6-4.6 [facility] ([facility] Test(s) 059530-Rpimzsaffvbcp Acid, U was developed and its performance characteristics determined by [facility]. It has not been cleared or approved by the Food and Drug Administration. Globulin [Mass/volume] in Serum by calculation 1.8 g/dL 1.5-4.5 [facility] ([facility] Test(s) 968061-Raaszifdgkhmv Acid, U was developed and its performance characteristics determined by [facility]. It has not been cleared or approved by the Food and Drug Administration. Albumin/Globulin [Mass Ratio] in Serum or Plasma 2.0 1.2-2.2 [facility] ([facility] Test(s) 805789-Nbdgsftkljuhd Acid, U was developed and its performance characteristics determined by [facility]. It has not been cleared or approved by the Food and Drug Administration. Alkaline phosphatase [Enzymatic activity/volume] in Serum or Plasma 45 IU/L 39-117 [facility] ([facility] Test(s) 348903-Jsziccrojtrxm Acid, U was developed and its performance characteristics determined by [facility]. It has not been cleared or approved by the Food and Drug Administration. Bilirubin.total [Mass/volume] in Serum or Plasma 0.3 mg/dL 0.0-1.2 [facility] ([facility] Test(s) 568511-Ezpxisojcqwmu Acid, U was developed and its performance characteristics determined by [facility]. It has not been cleared or approved by the Food and Drug Administration. Aspartate aminotransferase [Enzymatic activity/volume] in Serum or Plasma 19 IU/L 0-40 [facility] ([facility] Test(s) 241809-Spduvqdcmsgzq Acid, U was developed and its performance characteristics determined by [facility]. It has not been cleared or approved by the Food and Drug Administration. Alanine aminotransferase [Enzymatic activity/volume] in Seru m or Plasma 16 IU/L 0-44 [facility] ([facility] Test(s) 008683-Trgrrmcyhvvyf Acid, U was developed and its performance characteristics determined by [facility]. It has not been cleared or approved by the Food and Drug Administration. ID Date Data Source [id number] 11/12/2019 03:39:00 PM EDT [facility] ([facility] Name Value Range Interpretation Code Description Data Pennie rce(s) Supporting Document(s) Leukocytes [#/volume] in Blood by Automated count 12.7 x10E3/uL 3.4-10.8 Above high normal [facility] ([facility] ) Test(s) 471485-Ufjdtxvqnkocv Acid, U was developed and its performance characteristics determined by [facility]. It has not been cleared or approved by the Food and Drug Administration. Erythrocytes [#/volume] in Blood by Automated count 3.51 x10E6/u L 4.14-5.80 Below low normal [facility] ([facility] ) Test(s) 399185-Gbvhwztbcyovn Acid, U was developed and its performance characteristics determined by [facility]. It has not been cleared or approved by the Food and Drug Administration. Hemoglobin [Mass/volume] in Blood 9.9 g/dL 13.0-17.7 Below low nor mal [facility] ([facility] Test(s) 470910-Pmppclqscxdwp Acid, U was developed and its performance characteristics determined by [facility]. It has not been cleared or approved by the Food and Drug Administration. Hematocrit [Volume Fraction] of Blood by Automated count 30.5 % 37.5-51.0 Below low normal [facility] ([facility] ) Test(s) 898853-Ypgmwmsrscbux Acid, U was developed and its performance characteristics determined by [facility]. It has not been cleared or approved by the Food and Drug Administration. Erythrocyte mean corpuscular volume [Entitic volume] by Auto mated count 87 fL 79-97 [facility] ([facility] Test(s) 939939-Bfinsdzqnveuh Acid, U was developed and its performance characteristics determined by [facility]. It has not been cleared or approved by the Food and Drug Administration. Erythrocyte mean corpuscular hemoglobin [Entitic mass] by Automated count 28.2 pg 26.6-33.0 [facility] Test(s) 773178-Ljzrvdrafcviw Acid, U was developed and its performance characteristics determined by [facility]. It has not been cleared or approved by the Food and Drug Administration. Erythrocyte mean corpuscular hemoglobin concentration [Mass/volume] by Automated count 32.5 g/dL 31.5-35.7 [facility] Test(s) 987196-Dvpdfoufjvemx Acid, U was developed and its performance characteristics determined by [facility]. It has not been cleared or approved by the Food and Drug Administration. Erythrocyte distribution width [Ratio] by Automated count 17.7 % 11.6-15.4 Above high normal [facility] ([facility] ) Test(s) 163623-Vzqlggmbgvwjc Acid, U was developed and its performance characteristics determined by [facility]. It has not been cleared or approved by the Food and Drug Administration. Platelets [#/volume] in Blood by Automated count 267 x10E3/uL 150-450 [facility] ([facility] Test(s) 573321-Eozbkvhzqbhsd Acid, U was developed and its performance characteristics determined by [facility]. It has not been cleared or approved by the Food and Drug Administration. Neutrophils 80 % [facility] ([facility] Test(s) 646802-Rscdlemtbxvep Acid, U was developed and its performance characteristics determined by [facility]. It has not been cleared or approved by the Food and Drug Administration. Lymphs 7 % [facility] ([facility] Test(s) 585254-Gkrouajgvcgrl Acid, U was developed and its performance characteristics determined by [facility]. It has not been cleared or approved by the Food and Drug Administration. Monocytes/100 leukocytes in Blood by Automated count 8 % [facility] ([facility] Test(s) 332893-Ljvynwdkrcumx Acid, U was developed and its performance characteristics determined by [facility]. It has not been cleared or approved by the Food and Drug Administration. Eosinophils/100 leukocytes in Blood by Automated count 0 % [facility] ([facility] Test(s) 952006-Lqmcizxnsfmxa Acid, U was developed and its performance characteristics determined by [facility]. It has not been cleared or approved by the Food and Drug Administration. Basophils/100 leukocytes in Blood by Automated count 2 % [facility] ([facility] Test(s) 266654-Uxftexucvutrx Acid, U was developed and its performance characteristics determined by [facility]. It has not been cleared or approved by the Food and Drug Administration. Immature cells [#/volume] in Blood Laboratory test result [facility] ([facility] Test(s) 833482-Xjjzsueivkrue Acid, U was developed and its performance characteristics determined by [facility]. It has not been cleared or approved by the Food and Drug Administration. Lymphocytes [#/volume] in Blood 0.9 x10E3/uL 0.7-3.1 [facility] ([facility] Test(s) 415700-Lndwfrrdlrqmn Acid, U was developed and its performance characteristics determined by [facility]. It has not been cleared or approved by the Food and Drug Administration. Neutrophils [#/volume] in Blood by Automated count 10.2 x10E3/uL 1.4-7.0 Above high normal [facility] ([facility] ) Test(s) 529318-Yntqryqnrtysn Acid, U was developed and its performance characteristics determined by [facility]. It has not been cleared or approved by the Food and Drug Administration. Monocytes [#/volume] in Blood 1.0 x10E3/uL 0.1-0.9 Above high norm al [facility] ([facility] Test(s) 325184-Sicpsfludheqs Acid, U was developed and its performance characteristics determined by [facility]. It has not been cleared or approved by the Food and Drug Administration. Basophils [#/volume] in Blood by Automated count 0.3 x10E3/uL 0.0-0.2 Above high normal [facility] ([facility] ) Test(s) 582032-Zgrrnhmcpccrg Acid, U was developed and its performance characteristics determined by [facility]. It has not been cleared or approved by the Food and Drug Administration. Eosinophils [#/volume] in Blood by Automated count 0.0 x10E3/uL 0.0-0 .4 [facility] ([facility] Test(s) 923778-Rzsjxhyrxfjbk Acid, U was developed and its performance characteristics determined by [facility]. It has not been cleared or approved by the Food and Drug Administration. Immature granulocytes/100 leukocytes in Blood by Autom ated count Laboratory test result [facility] ([facility] Test(s) 211303-Vghkbuxygbkoj Acid, U was developed and its performance characteristics determined by [facility]. It has not been cleared or approved by the Food and Drug Administration. Nucleated erythrocytes/100 leukocytes [Ratio] in Blood by Automated count Laboratory test result [facility] ([facility] Test(s) 490450-Xwvietkkezkti Acid, U was developed and its performance characteristics determined by [facility]. It has not been cleared or approved by the Food and Drug Administration. Immature granulocytes [#/volume] in Blood by Automated count Laboratory test result [facility] Test(s) 143658-Ibejqfxquhrty Acid, U was developed and its performance characteristics determined by [facility]. It has not been cleared or approved by the Food and Drug Administration. Morphology [Interpretation] in Blood Narrative Laboratory test result [facility] ([facility] Test(s) 042237-Yeafmuxurvuac Acid, U was developed and its performance characteristics determined by [facility]. It has not been cleared or approved by the Food and Drug Administration. Bands Laboratory test result [facility] ([facility] Test(s) 026476-Pyksffzjvuriv Acid, U was developed and its performance characteristics determined by [facility]. It has not been cleared or approved by the Food and Drug Administration. Myelocytes Laboratory test result ME DENT ([facility] Test(s) 895810-Khqacyuadvlpx Acid, U was developed and its performance characteristics determined by [facility]. It has not been cleared or approved by the Food and Drug Administration. Metamyelocytes 3 % 0-0 Above high normal [facility] ([facility] Test(s) 992162-Aztkebhtiflld Acid, U was developed and its performance characteristics determined by [facility]. It has not been cleared or approved by the Food and Drug Administration. Promyelocytes Laboratory test result [facility] ([facility] Test(s) 790712-Cksobkaawlurf Acid, U was developed and its performance characteristics determined by [facility]. It has not been cleared or approved by the Food and Drug Administration. Laboratory test finding (navigational concept) Laboratory test result [facility] ([facility] Test(s) 895327-Rgwbhvawcawuz Acid, U was developed and its performance characteristics determined by [facility]. It has not been cleared or approved by the Food and Drug Administration. Laboratory test finding (navigational concept) Laboratory test result [facility] ([facility] Test(s) 698388-Jikkxfebeodfc Acid, U was developed and its performance characteristics determined by [facility]. It has not been cleared or approved by the Food and Drug Administration. Laboratory test finding (navigational concept) Laboratory test result [facility] ([facility] Test(s) 733346-Dptcistqxswkw Acid, U was developed and its performance characteristics determined by [facility]. It has not been cleared or approved by the Food and Drug Administration. ID Date Data Source [id number] 11/12/2019 03:39:00 PM EDT [facility] Name Value Range Interpretation Code Description Data Pennie rce(s) Supporting Document(s) Cobalamin (Vitamin B12) [Mass/volume] in Serum or Plasma 412 pg/mL 2 32-1245 [facility] ([facility] Test(s) 419204-Cdxyzujcqsdan Acid, U was developed and its performance characteristics determined by [facility]. It has not been cleared or approved by the Food and Drug Administration. ID Date Data Source [id number] 10/27/2019 02:53:00 AM EDT [facility] l [id number] Name Value Range Interpretation Code Description Data Pennie rce(s) Supporting Document(s) TROPONIN I < 0.017 ng/mL 0.0-0.056 [facility] ID Date Data Source [id number] 10/26/2019 08:42:00 PM EDT [facility] [facility] l TSYSORDER [id number] Name Value Range Interpretation Code Description Data Pennie rce(s) Supporting Document(s) TROPONIN I < 0.017 ng/mL 0.0-0.056 [facility] ID Date Data Source [id number] 10/26/2019 04:06:00 PM EDT [facility] ital TSYSORDER [id number] Name Value Range Interpretation Code Description Data Pennie rce(s) Supporting Document(s) URINE COLOR. YELLOW [facility] URINE APPEARANCE CLEAR [facility] l SPECIFIC GRAVITY,URINE 1.020 1.001-1.035 [facility] URINE LEUKOCYTE ESTERASE NEGATIVE NEGATIVE [facility] URINE NITRATE NEGATIVE NEGATIVE [facility] PH,URINE 5.5 5.0-9.0 [facility] URINE PROTEIN NEGATIVE mg/dL [facility]IVE [facility] GLUCOSE (UA) NEGATIVE mg/dL NEGATIVE [facility] URINE KETONE NEGATIVE mg/dL NEGATIVE [facility] URINE UROBILINOGEN NORMAL(0.2-1) mg/dL 0-1 R [facility] URINE BILIRUBIN NEGATIVE NEGATIVE [facility] URINE BLOOD TRACE NEGATIVE [facility] ID Date Data Source [id number] 10/26/2019 04:06:00 PM EDT [facility] l TSYSORDER [id number] Name Value Range Interpretation Code Description Data Pennie rce(s) Supporting Document(s) URINE RBC 0-2 /hpf 0-3 [facility] URINE WBC 0-2 /hpf 0-5 [facility] URINE EPITHELIAL CELLS 1+ /hpf 0 [facility]ital ID Date Data Source [id number] 10/26/2019 03:34:00 PM EDT [facility] DATE OF EXAMINATION: 10/26/2019 13:27 EDT [...] rce(s) Supporting Document(s) ID Date Data Source [id number] 10/28/2019 09:06:00 AM EDT [facility] Name Value [...] sole basis to diagnose or exclude recent [id number]. ID Date Data Source [id number] 10/28/2019 02:07:00 PM EDT [facility] Name Value [...] SARS-CoV-2 IgG assay. ID Date Data Source [id number] 10/28/2019 04:06:00 PM EDT [facility] Name Value [...] sole basis to diagnose or exclude recent [id number]. ID Date Data Source [id number] 10/26/2019 03:04:00 PM EDT [facility] l TSYSORDER [id number] Name Value Range Interpretation Code Description Data Pennie rce(s) Supporting Document(s) PARTIAL THROMBOPLASTIN TIME 23.1 SECONDS 21.4-30.2 [facility] ID Date Data Source [id number] 10/26/2019 03:04:00 PM EDT [facility] TSYSORDER [id number] Name Value Range Interpretation Code Description Data Pennie rce(s) Supporting Document(s) PROTHROMBIN TIME (PATIENT) 11.3 SECONDS 9.2-11.6 [facility] INR 1.09 0.87-1.06 H [facility] ID Date Data Source [id number] 11/01/2019 12:06:00 PM EDT [facility] l Name Value Range Interpretation Code Description Data Pennie rce(s) Supporting Document(s) BLOOD CULTURE, ROUTINE Final report . [facility] 11/01/19 1206: BLOOD CULT, RT previousl y reported as: Preliminary report BC RESULT1 Comment . [facility] No aerobic or anaerobic growth in five d ays.Performed at: RN - [facility] [address] [id number] Director: Linda Garsia MD, Phone: [phone] 1206: BC RESULT1 previously reported as: Comment No growth in 36 - 48 hours. Performed at: RN - [facility] [address] [id number] Sugar Refiner: Linda Garsia MD, Phone: [phone] 10/29/19 1405: BC RESULT1 previously reported as: Comment No growth after 16-24 hours. Performed at: RN - [facility] [address] [id number] Sugar Refiner: Linda Garsia MD, Phone: [phone] @ Edited by: @ Reason: [] ID Date Data Source [id number] 11/01/2019 12:05:00 PM EDT [facility] Name Value Range Interpretation Code Description Data Pennie rce(s) Supporting Document(s) Blood Culture, Routine Final report [facility] ID Date Data Source [id number] 11/01/2019 12:05:00 PM EDT [facility] Name Value Range Interpretation Code Description Data Pennie rce(s) Supporting Document(s) Result 1 [facility] No aerobic or anaerobic growth in five d ays. ID Date Data Source [id number] 10/26/2019 02:35:00 PM EDT [facility] TSYSORDER [id number] Name Value Range Interpretation Code Description Data Pennie rce(s) Supporting Document(s) BLOOD TYPE ABO O [facility] RH TYPE POSITIVE [facility] ANTIBODY SCREEN NEGATIVE [facility] ID Date Data Source [id number] 10/26/2019 02:45:00 PM EDT [facility] TSYSORDER [id number] Name Value Range Interpretation Code Description Data Pennie rce(s) Supporting Document(s) C REACTIVE PROTEIN 10.3 mg/L 0.0-3.0 [facility] ID Date Data Source [id number] 10/26/2019 02:45:00 PM EDT [facility] TSYSORDER [id number] Name Value Range Interpretation Code Description Data Pennie rce(s) Supporting Document(s) MAGNESIUM 1.7 mg/dL 1.8-2.4 L [facility] ID Date Data Source [id number] 10/26/2019 02:45:00 PM EDT [facility] TSYSORDER [id number] Name Value Range Interpretation Code Description Data Pennie rce(s) Supporting Document(s) TROPONIN I < 0.017 ng/mL 0.0-0.056 [facility] ID Date Data Source [id number] 10/26/2019 03:10:00 PM EDT [facility] TSYSORDER [id number] Name Value Range Interpretation Code Description Data Pennie rce(s) Supporting Document(s) CREATINE PHOSPHOKINASE 34 U/L 39-308 L [facility]spital ID Date Data Source [id number] 10/26/2019 02:45:00 PM EDT [facility] TSYSORDER [id number] Name Value Range Interpretation Code Description Data Pennie rce(s) Supporting Document(s) LIPASE 147 U/L 73-393 [facility] ID Date Data Source [id number] 10/26/2019 02:45:00 PM EDT [facility] TSYSORDER [id number] Name Value Range Interpretation Code Description Data Pennie rce(s) Supporting Document(s) GLUCOSE 128 mg/dL 74-106 H [facility] BLOOD UREA NITROGEN 18 mg/dL 7-18 [facility] ital CREATININE 1.1 mg/dL 0.7-1.3 [facility] SODIUM 139 mmol/L 136-145 [facility] POTASSIUM 4.0 mmol/L 3.5-5.1 [facility] CHLORIDE 104 mmol/L 98-107 [facility] CO2 29 mmol/L 21-32 [facility] CALCIUM 8.6 mg/dL 8.5-10.1 [facility] ANION GAP 6.0 mmol/L 5-12 [facility] GLOMERULAR FILTRATION RATE 64 mL/min [facility] GFR IS CALCULATED IN mL/min/1.73m2 ANAY L FUNCTION: >90MILDLY DECREASED: 60-89MILDY TO MODERATELY DECREASED: 45-59 MODERATELY TO SEVERELY DECREASED: 30-44SEVERELY DECREASED: 15-29RENAL FAILURE: <15 AST 23 U/L 15-37 [facility] ALT 19 U/L 12-78 [facility] ALKALINE PHOSPHATASE 31 U/L 46-116 L [facility] pital TOTAL BILIRUBIN 0.5 mg/dL 0.2-1.0 [facility] TOTAL PROTEIN 5.8 g/dl 6.4-8.2 L [facility] ALBUMIN 2.8 gm/dL 3.4-5.0 *L [facility] ID Date Data Source [id number] 10/26/2019 02:59:00 PM EDT [facility] TSYSORDER [id number] Name Value Range Interpretation Code Description Data Pennie rce(s) Supporting Document(s) Adenovirus Not Detected Detected Not [facility] Coronavirus 229E Not Detected Detected Not [facility] Coronavirus HKU1 Not Detected Detected Not [facility] Coronavirus NL63 Not Detected Detected [facility] Coronavirus OC43 Not Detected Detected [facility] Sars Cov 2 Not Detected Detected Not [facility] Human Metapneumovirus Not Detected Detected [facility] Human Rhinovirus DETECTED Detected [facility] Influenza A Not Detected Detected [facility] Influenza B Not Detected Detected [facility] Parainfluenza Virus 1 Not Detected Detected [facility] Parainfluenza Virus 2 Not Detected Detected [facility] Parainfluenza Virus 3 Not Detected Detected Not [facility] Parainfluenza Virus 4 Not Detected Detected Not [facility] Respiratory Syncytial Virus Not Detected Detected Not [facility] Bordetella parapertus ([id number]) Not Detected Detected [facility] Bordetella pertussis (ptxP) Not Detected Detected Not [facility] Chlamydia pneumoniae Not Detected Detected Not [facility] Mycoplasma pneumoniae Not Detected Detected Not [facility] The Above results have been determined b y using the [employer] system.Complex[employer] is an automated in vitro diagnostic system thatutilizes nested multiplex Polymerase Chain Reaction (PCR)and high-resolution melting analysis to detect and identifymultiple nucleic acid targets from clinical specimens. ID Date Data Source [id number] 10/26/2019 02:48:00 PM EDT [facility] TSYSORDER [id number] Name Value Range Interpretation Code Description Data Pennie rce(s) Supporting Document(s) LACTIC ACID 0.9 mmol/L 0.4-2.0 [facility] ID Date Data Source [id number] 10/26/2019 02:45:00 PM EDT [facility] TSYSORDER [id number] Name Value Range Interpretation Code Description Data Pennie rce(s) Supporting Document(s) TSH 1.23 uIU/mL 0.36-3.74 [facility] ID Date Data Source [id number] 10/[facility]2019 02:45[facility] [id number] Name Value Range Interpretation Code Description Data Pennie rce(s) Supporting Document(s) FREE T4 1.40 ng/dL 0.76-1.46 [facility] ID Date Data Source [id number] 10/26/2019 02:14:00 PM [facility] TSYSORDER [id number] Name Value Range Interpretation Code Description Data Pennie rce(s) Supporting Document(s) WHITE BLOOD COUNT 12.6 K/mm3 4.0-10.0 H [facility] RED BLOOD COUNT 3.45 M/mm3 4.50-6.00 L [facility] HEMOGLOBIN 9.8 gm/dL 14.0-18.0 L [facility] HEMATOCRIT 29.6 % 42.0-54.0 L [facility] MEAN CELL VOLUME 85.8 fl 80-96 [facility] MEAN CORPUSCULAR HEMOGLOBIN 28.4 pg 27.0-31.0 [facility] MEAN CORPUSCULAR HGB CONC 33.1 g/dl 32.0-36.0 [facility] RED CELL DISTRIBUTION WIDTH 18.3 % 10.0-14.5 H [facility] PLATELET COUNT 214 K/mm3 172-450 [facility] MEAN PLATELET VOLUME 10.8 fl 9.0-13.0 [facility] GRAN % 75.1 % 50-80.0 [facility] IG% 2.5 % 0.0-0.2 *H [facility] LYMPH % 4.4 % 25.0-50.0 *L [facility] MONO % 16.8 % 2.0-10.0 H [facility] EOS % 0.5 % 0-5.0 [facility] BASO % 0.7 % 0.0-2.0 [facility] GRAN # 9.5 K/mm3 2.0-8.00 H [facility] IG# 0.3 K/mm3 0.0-0.2 H [facility] LYMPH # 0.6 K/mm3 1.0-5.0 L [facility] MONO # 2.1 K/mm3 0.10-1.20 H [facility] EOS # 0.1 K/mm3 0.0-0.5 [facility] BASO # 0.1 K/mm3 0.0-0.2 [facility] ID Date Data Source [id number] 10/26/2019 01:35:00 PM EDT [facility] TSYSORDER [id number] Name Value Range Interpretation Code Description Data Pennie rce(s) Supporting Document(s) NEUTROPHILS 83 % 50-80 H [facility] LYMPHOCYTE 6 % 25-50 L [facility] MONOCYTE 11 % 2.0-10.0 H [facility] ANISOCYTOSIS 2+ [facility] OVALOCYTES 1+ [facility] ACANTHOCYTES 1+ [facility] PLATELET ESTIMATE NORMAL NORMAL [facility] MORPHOLOGY EXPECTED RESULTS:NORMAL= NORMOCHROMIC, NORMOCYTIC CELLSAbnormal Morphologic Findings > or = to 1+ are reported.Clinicopathologic correlation by the provider is required todetermine significance of finding. ID Date Data Source [id number] 10/26/2019 02:10:00 PM EDT [facility] TSYSORDER [id number] Name Value Range Interpretation Code Description Data Pennie rce(s) Supporting Document(s) PH 7.39 7.31-7.41 [facility] VENOUS PCO2 47.6 mmHg 41-51 [facility] VENOUS PO2 41 mmHg 35-42 [facility] VENOUS BLODD O2 SATURATION 68.5 % 68-77 [facility] VENOUS BLOOD HCO3 28.4 meq/L 24.0-25.0 [facility] VENOUS BASE EXCESS 3.5 -3.0-3.0 H [facility] VENOUS BLOOD CO2 29.9 mmol/L 23.0-32.0 [facility] ID Date Data Source [id number] 11/01/2019 12:06:00 PM EDT [facility] Name Value Range Interpretation Code Description Data Pennie rce(s) Supporting Document(s) BLOOD CULTURE, ROUTINE Final report . [facility] 11/01/19 1206: BLOOD CULT, RT previousl y reported as: Preliminary report BC RESULT1 Comment . [facility] No aerobic or anaerobic growth in five d ays.Performed at: [facility] Lab[address] [id number] Director: Linda Garsia MD, Phone: [phone]/03/20 1206: BC RESULT1 previously reported as: Comment No growth in 36 - 48 hours. Performed at: [facility] Lab[address] [id number] Sugar Refiner: Linda Garsia MD, Phone: [phone] 10/29/19 1405: BC RESULT1 previously reported as: Comment No growth after 16-24 hours. Performed at: [facility] [address] [id number] Sugar Refiner: Linda Garsia MD, Phone: [phone] @ Edited by: @ Reason: [] ID Date Data Source [id number] 11/01/2019 12:05:00 PM EDT [facility] Name Value Range Interpretation Code Description Data Pennie rce(s) Supporting Document(s) Blood Culture, Routine Final report [facility] ID Date Data Source [id number] 11/01/2019 12:05:00 PM EDT [facility] Name Value Range Interpretation Code Description Data Pennie rce(s) Supporting Document(s) Result 1 [facility] No aerobic or anaerobic growth in five d ays. ID Date Data Source [id number] 10/26/2019 03:12:00 PM EDT [facility] TSYSORDER [id number] Name Value Range Interpretation Code Description Data Pennie rce(s) Supporting Document(s) ERYTHROCYTE SEDIMENTATION RATE 12 mm/hr 0-20 [facility] ID Date Data Source [id number] 10/26/2019 02:45:00 PM EDT [facility] TSYSORDER [id number] Name Value Range Interpretation Code Description Data Pennie rce(s) Supporting Document(s) B-TYPE NATRIURETIC PEPTIDE 751 pg/ml 0-450 *H [facility] ID Date Data Source [id number] 10/26/2019 01:13:00 PM EDT [facility] [...] noted. Base ofthe skull appears normal. IMPRESSION: Zini-rh-fzlsfwhx diffuse cerebral atrophy of aging. DATE OF [...] rce(s) Supporting Document(s) ID Date Data Source [id number] 10/26/2019 01:13:00 PM EDT [facility] [...] noted. Base ofthe skull appears normal. IMPRESSION: Qbtb-mi-qbbjriyb diffuse cerebral atrophy of aging. DATE OF [...] li(s) Supporting Document(s) ID Date Data Source [id number] 10/26/2019 01:11:00 PM EDT [facility] DATE OF EXAMINATION: 10/26/2019 12:51 EDT CHEST [...] Data Source [id number] 10/26/2019 12:00:00 AM EDT [facility] Name Value Range Interpretation Code Description Data Pennie rce(s) Supporting Document(s) 2019 Novel Coronavirus RNA [facility] This lab was ordered by [facility] L aboratory and reported by [facility] Laboratory. ID Date Data Source [id number] 10/21/2019 02:54:00 PM EDT [facility] Name Value Range Interpretation Code Description Data Pennie rce(s) Supporting Document(s) Calcium [Mass/volume] in Serum or Plasma 8.5 [facility] ([facility]) Sodium 144 [facility] Carbon dioxide, total [Moles/volume] in Serum or Plasma 30 [facility] ([facility]) Potassium [Moles/volume] in Serum or Plasma 3.9 [facility] ([facility]) Chloride [Moles/volume] in Serum or Plasma 110 [facility] ([facility]) Glucose 126 70-100 [facility] Blood Urea Nitrogen 22 5-21 [facility] ([facility]) Creatinine 1.03 0.6-1.5 [facility] ([facility]) Glomerular filtration rate/1.73 sq M.pre dicted [Volume Rate/Area] in Serum or Plasma by Creatinine-based formula (MDRD) Laboratory test result [facility] ([facility]) ID Date Data Source [id number] 10/21/2019 02:54:00 PM EDT [facility] ([facility]) Name Value Range Interpretation Code Description Data Pennie rce(s) Supporting Document(s) White Blood Count 9.6 4.3-10.9 [facility] ([facility]) Platelets 195 130-400 [facility] Hemoglobin 9.5 13.0-17.0 [facility] ([facility]) Red Blood Count 3.31 4.70-6.20 [facility] ([facility]) Hematocrit 29.8 39.0-50.0 [facility] ([facility]) ID Date Data Source [id number] 10/21/2019 02:54:00 PM EDT [facility] ([facility]) Name Value Range Interpretation Code Description Data Pennie rce(s) Supporting Document(s) Albumin [Mass/volume] in Serum or Plasma 2.8 [facility] ([facility]) Calcium [Mass/volume] in Serum or Plasma 8.5 [facility] ([facility]) Alanine aminotransferase [Enzymatic activity/volume] in Serum or Pl asma 15 [facility] ([facility]) Alkaline phosphatase [Enzymatic activity/volume] in Serum or Plasma 3 8 [facility] ([facility]) Chloride [Moles/volume] in Serum or Plasma 107 [facility] ([facility]) Carbon dioxide, total [Moles/volume] in Serum or Plasma 31 [facility] ([facility]) Sodium 140 [facility] ([facility]) Potassium [Moles/volume] in Serum or Plasma 3.9 [facility] ([facility]) Protein [Mass/volume] in Serum or Plasma 5.4 [facility] ([facility]) Urea nitrogen [Mass/volume] in Serum or Plasma 18 [facility] ([facility]) Aspartate aminotransferase [Enzymatic activity/volume] in Serum or Plasma 15 [facility] ([facility]) Glucose 88 70-100 [facility] ([facility]) Creatinine For GFR 1.07 [facility] ([facility]) ID Date Data Source [id number] 10/21/2019 10:00:00 AM EDT [facility] ([facility] Name Value Range Interpretation Code Description Data Pennie rce(s) Supporting Document(s) Glucose, Fasting 88 mg/dL 70-100 Normal (applies to non-numeric results) [facility] Blood Urea Nitrogen 18 mg/dL 7-18 Normal (applies to non-nume cristian results) [facility] ([facility] Glomerular Filtration Rate Laboratory test result Normal (applies to non- numeric results) [facility] ([facility] ) <content>Units are mL/min/1.73 m2</content>
<content></content>
<content>Chronic Kidney Disease Staging per NKF:</content>
<content></content>
<content>Stage I & II GFR >=60 Normal to Mildly Decreased</content>
<content>Stage III GFR 30-59 Moderately Decreased</content>
<content>Stage IV GFR 15-29 Severely Decreased</content>
<content>Stage V GFR <15 Very Little GFR Left</content>
<content>ESRD GFR <15 on SENIOR MANAGER ASSET PROTECTION</content>
<content></content> Creatinine For GFR 1.07 mg/dL 0.70-1.30 [...] non-numeric results) [facility] Total Protein 5.4 GM/DL 6.4-8.2 Below low normal [facility] ([facility] Albumin/Globulin Ratio 1.1 Normal (applies to non-n umeric results) [facility] ([facility] ID Date Data Source [id number] 10/21/2019 10:00:00 AM EDT [facility] ([facility] [...] results) [facility] ([facility] Neutrophils % 72.3 % 36.0-66.0 Above high normal [facility] ([facility] [place] % 14.5 % 0.0-5.0 Above high normal [facility] ([facility] Eos % 0.6 % 0.0-3.0 Normal (applies to non-numeric resul ts) [facility] ([facility] Baso % 0.4 % 0.0-1.0 Normal (applies to non-numeric resul ts) [facility] ([facility] Immature Granulocyte % 4.3 % 0-3.0 Above high normal [facility] ([facility] Nucleated Red Blood Cell % 0.0 % 0-0 Normal (applies to n on-numeric results) [facility] ([facility] Neutrophils # 6.9 10 1.5-8.5 Normal (applies to non-numeric re sults) [facility] ([facility] Eos # 0.1 10 0.0-0.5 Normal (applies to non-numeric resul ts) [facility] ([facility] Lymph # 0.8 10 1.5-5.0 Below low normal [facility] ( [facility] [place] # 1.4 10 0.0-0.8 Above high normal [facility] ([facility] Baso # 0.0 10 0.0-0.2 Normal (applies to non-numeric resul ts) [facility] ([facility] ID Date Data Source [id number] 10/11/2019 02:44:00 PM EDT [facility] ([facility] Name Value Range Interpretation Code Description Data Pennie rce(s) Supporting Document(s) Glu 214 mg/dL 70-110 Above high normal [facility] ([facility] CHRONIC KIDNEY DISEASE STAGING [...] above >32 mL/min Normal BUN 19 mg/dL 8- [facility] ([facility] CHRONIC KIDNEY DISEASE STAGING PER [...] 1.3 mg/dL 0.7-1.2 Above high normal [facility] ([facility] CHRONIC KIDNEY DISEASE STAGING [...] mL/min Normal BUN/Creatinine Ratio 14.8 Calc [facility] ([facility] CHRONIC KIDNEY DISEASE STAGING PER [...] mL/min Normal Co2 25.8 mmol/L 22.0-29.0 [facility] ([facility] CHRONIC KIDNEY DISEASE STAGING [...] mL/min Normal K 4.1 mmol/L 3.5-5.1 [facility] ([facility] CHRONIC KIDNEY DISEASE [...] mL/min Normal CA 8.8 mg/dL 8.6-10.2 [facility] ([facility] CHRONIC KIDNEY DISEASE STAGING [...] mL/min Normal Na 138 mmol/L 136-145 [facility] ([facility] CHRONIC KIDNEY DISEASE [...] mL/min Normal Anion Gap 12 mmol/L [facility] ([facility] CHRONIC KIDNEY DISEASE STAGING PER [...] >32 mL/min Normal CL 104.0 mmol/L 98.0-107.0 [facility] ([facility] CHRONIC KIDNEY DISEASE STAGING PER [...] above >32 mL/min Normal eGFR 58 # DAWNA ( [facility] CHRONIC KIDNEY DISEASE STAGING [...] and above >32 mL/min Normal eGFR Non-Afr. [place] 50 # MEDENT ([facility] CHRONIC KIDNEY DISEASE STAGING [...] >32 mL/min Normal ID Date Data Source [id number] 10/11/2019 02:44:00 PM EDT MEDENT ([facility] Name Value Range Interpretation Code Description Data Pennie rce(s) Supporting Document(s) Hemoglobin [Mass/volume] in Blood 10.3 g/dL 13.0-17.7 Below low nor mal MEDENT ([facility] Erythrocytes [#/volume] in Blood by Automated count 3.55 x10E6/u L 4.14-5.80 Below low normal MEDENT ([facility] ) Leukocytes [#/volume] in Blood by Automated count 12.9 x10E3/uL 3.4-10.8 Above high normal MEDENT ([facility] ) Hematocrit [Volume Fraction] of Blood by Automated count 31.5 % 37.5-51.0 Below low normal MEDENT ([facility] ) Erythrocyte mean corpuscular volume [Entitic volume] by Auto mated count 89 fL 79-97 [facility] Erythrocyte distribution width [Ratio] by Automated count 17.7 % 11.6-15.4 Above high normal MEDENT ([facility] ) Erythrocyte mean corpuscular hemoglobin concentration [Mass/volume] by Automated count 32.7 g/dL 31.5-35.7 MEDENT ([facility] Erythrocyte mean corpuscular hemoglobin [Entitic mass] by Automated count 29.0 pg 26.6-33.0 [facility] ([facility] Neutrophils 79 % MEDENT ([facility] Platelets [#/volume] in Blood by Automated count 287 x10E3/uL 150-450 MED[facility] ([facility] Lymphs 5 % MED[facility] ([facility] Eosinophils/100 leukocytes in Blood by Automated count 0 % MED[facility] ([facility] Basophils/100 leukocytes in Blood by Automated count 0 % MEDENT ([facility] Monocytes/100 leukocytes in Blood by Automated count 13 % MEDENT ([facility] Immature cells [#/volume] in [...] .4 MED[facility] ([facility] Immature granulocytes [#/volume] in Blood by Automated count 0.4 x10E3/uL 0.0-0.1 Above high normal [facility] ([facility] (An elevated percentage of Immature Gran ulocytes has not been found to be clinically significant as a sole clinical predictor of disease. Does NOT include bands or blast cells. associated physiological leukocytosis may also show increased immature granulocytes without clinical significance.) Immature granulocytes/100 leukocytes in Blood by Automated count 3 % MEDENT ([facility] Nucleated erythrocytes/100 leukocytes [Ratio] in Blood by Automated count Laboratory test result MEDENT ([facility] Morphology [Interpretation] in Blood Narrative Laboratory test result MEDENT ([facility] ID Date Data Source [id number] 10/01/2019 08:40:00 AM EDT MEDENT ([facility]) Name Value Range Interpretation Code Description Data Pennie rce(s) Supporting Document(s) White Blood Count 6.1 4.0-10.0 MEDENT ([facility]) Platelets 175 150-450 MED[facility] ([facility]) Red Blood Count 3.07 4.30-6.10 MED[facility] ([facility]) Hemoglobin 8.7 MED[facility] ([facility]) Hematocrit 28.0 MED[facility] ([facility]) ID Date Data Source [id number] 10/01/2019 08:40:00 AM EDT MEDENT ([facility]) Name Value Range Interpretation Code Description Data Pennie rce(s) Supporting Document(s) Glucose 82 70-100 [facility] ([facility]) Creatinine 0.96 0.6-1.0 MED[facility] ([facility]) Blood Urea Nitrogen 9 7-18 MED[facility] ([facility]) Sodium 143 136-145 MED[facility] ([facility]) Chloride 107 98-107 MED[facility] ([facility]) Potassium 4.1 3.5-5.1 MED[facility] ([facility]) Carbon Dioxide 30 21-32 MED[facility] ([facility]) Calcium 8.4 8.2-9.6 MEDENT ([facility]) Glomerular filtration rate/1.73 sq M.pre dicted [Volume Rate/Area] in Serum or Plasma by Creatinine-based formula (MDRD) Laboratory test result MEDENT ([facility]) ID Date Data Source [id number] 09/27/2019 08:54:00 AM EDT MEDENT ([facility] Name Value Range Interpretation Code Description Data Pennie rce(s) Supporting Document(s) Laboratory test finding (navigational concept) 27.0 % 3 8.0-51.0 Below low normal MED[facility] ([facility] ) Laboratory test finding (navigational concept) 100 mg/dL 7 0-105 Normal (applies to non-numeric results) MEDENT ([facility] Laboratory test finding (navigational concept) 140 meq/L 1 36-145 Normal (applies to non-numeric results) MED[facility] ([facility] Laboratory test finding (navigational concept) 3.5 meq/L 3 .5-5.1 Normal (applies to non-numeric results) MED[facility] ([facility] Laboratory test finding (navigational concept) 95 meq/L 98-109 Below low normal MED[facility] ([facility] Laboratory test finding (navigational concept) 4.7 mg/dL 4 .5-5.3 Normal (applies to non-numeric results) MED[facility] ([facility] Laboratory test finding (navigational concept) 9 mg/dL 8 -26 Normal (applies to non-numeric results) MED[facility] ([facility]) Laboratory test finding (navigational concept) 1.3 mg/dL 0 .6-1.3 Normal (applies to non-numeric results) MED[facility] ([facility] Laboratory test finding (navigational concept) 30.0 MM/L 2 3.0-27.0 Above high normal MEDENT ([facility] ) ID Date Data Source [id number] 09/21/2019 02:32:00 PM EDT MEDENT ([facility] Name Value Range Interpretation Code Description Data Pennie rce(s) Supporting Document(s) Lipoprotein lipase [Enzymatic activity/volume] in Serum or P lasma 167 U/L 73-393 Normal (applies to non-numeric results) MEDENT ([facility] ID Date Data Source [id number] 09/21/2019 02:32:00 PM EDT MEDENT ([facility] Name Value Range Interpretation Code Description Data Pennie rce(s) Supporting Document(s) Glucose, Fasting 126 mg/dL 70-100 Above high normal M EDENT ([facility] Creatinine For GFR 1.93 mg/dL 0.70-1.30 Above high normal MEDENT ([facility] Blood Urea Nitrogen 22 mg/dL 7-18 Above high normal MED[facility] ([facility] Glomerular Filtration Rate 35.5 Normal (applies to n on-numeric results) MEDENT ([facility] <content>Units are mL/min/1.73 m2</content>
<content></content>
<content>Chronic Kidney Disease Staging per NKF:</content>
<content></content>
<content>Stage I & II GFR >=60 Normal to Mildly Decreased</content>
<content>Stage III GFR 30-59 Moderately Decreased</content>
<content>Stage IV GFR 15-29 Severely Decreased</content>
<content>Stage V GFR <15 Very Little GFR Left</content>
<content>ESRD GFR <15 on SENIOR MANAGER ASSET PROTECTION</content>
<content></content> Potassium Serum 3.4 meq/L 3.5-5.1 Below low normal MED ENT ([facility] Sodium Level 139 meq/L 136-145 Normal (applies to non-numeric res ults) MEDENT ([facility] Chloride Level 100 meq/L 98-107 Normal (applies to non-numeric r esults) MEDENT ([facility] Anion Gap 5 meq/L 8-16 Below low normal MEDENT ( [facility] Calcium Level 8.9 mg/dL 8.8-10.2 Normal (applies to non-numeric re sults) MEDENT ([facility] Carbon Dioxide Level 34 meq/L 21-32 Above high normal MEDENT ([facility] ID Date Data Source [id number] 09/21/2019 02:32:00 PM EDT MEDENT ([facility] Name Value Range Interpretation Code Description Data Pennie rce(s) Supporting Document(s) Alt/SGPT 20 U/L 12-78 Normal (applies to non-numeric resul ts) MED[facility] ([facility] Ast/Sgot 26 U/L 7-37 Normal (applies to non-numeric resul ts) MED[facility] ([facility] Bilirubin,Total 0.6 mg/dL 0.2-1.0 Normal (applies to non-numeric results) MED[facility] ([facility] Alkaline Phosphatase 39 U/L 45-117 Below low normal MEDENT ([facility] Bilirubin,Direct 0.3 mg/dL 0.0-0.2 Above high normal M EDENT ([facility] Total Protein 5.8 GM/DL 6.4-8.2 Below low normal MEDEN T ([facility] Albumin/Globulin Ratio 0.9 Normal (applies to non-n umeric results) MEDENT ([facility] Albumin 2.8 GM/DL 3.2-5.2 Below low normal MEDENT ( [facility] ID Date Data Source [id number] 09/21/2019 02:32:00 PM EDT MEDENT ([facility] Name Value Range Interpretation Code Description Data Pennie rce(s) Supporting Document(s) Hemoglobin 11.0 g/dL 13.5-17.5 Below low normal MEDENT ( [facility] Red Blood Count 3.76 10 4.30-6.10 Below low normal MED ENT ([facility] White Blood Count 7.9 10 4.0-10.0 Normal (applies to non-numeri c results) MEDENT ([facility] Mean Corpuscular Volume 89.6 fl 80.0-96.0 Normal ( applies to non-numeric results) MED[facility] ([facility] ) Hematocrit 33.7 % 42.0-52.0 Below low normal MEDENT ( [facility] Mean Corpuscular Hemoglobin 29.3 pg 27.0-33.0 Norm al (applies to non-numeric results) MEDENT ([facility] ) Red Cell Distribution Width 19.0 % 11.5-14.5 Above high normal MEDENT ([facility] Platelet Count, Automated 205 10 150-450 Normal (applies to non-numeric results) MEDENT ([facility] ) Mean Corpuscular HGB Conc 32.6 g/dL 32.0-36.5 Normal (applies to non-numeric results) MEDENT ([facility] ) [place] % 13.6 % 0.0-5.0 Above high normal MEDENT ([facility] Lymph % 8.4 % 24.0-44.0 Below low normal MEDENT ( [facility] Neutrophils % 73.1 % 36.0-66.0 Above high normal MEDE NT ([facility] Baso % 0.5 % 0.0-1.0 Normal (applies to non-numeric resul ts) MEDENT ([facility] Eos % 0.4 % 0.0-3.0 Normal (applies to non-numeric resul ts) MEDENT ([facility] Immature Granulocyte % 4.0 % 0-3.0 Above high normal MEDENT ([facility] Nucleated Red Blood Cell % 0.0 % 0-0 Normal (applies to n on-numeric results) MED[facility] ([facility] Neutrophils # 5.8 10 1.5-8.5 Normal (applies to non-numeric re sults) MED[facility] ([facility] Lymph # 0.7 10 1.5-5.0 Below low normal MED[facility] ( [facility] [place] # 1.1 10 0.0-0.8 Above high normal MEDENT ([facility] Baso # 0.0 10 0.0-0.2 Normal (applies to non-numeric resul ts) MED[facility] ([facility] Eos # 0.0 10 0.0-0.5 Normal (applies to non-numeric resul ts) MED[facility] ([facility] ID Date Data Source [id number] 09/16/2019 02:38:00 PM EDT MEDENT ([facility] Name Value Range Interpretation Code Description Data Pennie rce(s) Supporting Document(s) White Blood Count 8.7 10 4.0-10.0 Normal (applies to non-numeri c results) MED[facility] ([facility] Red Blood Count 3.76 10 4.30-6.10 Below low normal MED ENT ([facility] Hematocrit 34.4 % 42.0-52.0 Below low normal MEDENT ( [facility] Mean Corpuscular Volume 91.5 fl 80.0-96.0 Normal ( applies to non-numeric results) MED[facility] ([facility] ) Hemoglobin 10.8 g/dL 13.5-17.5 Below low normal MEDENT ( [facility] Mean Corpuscular Hemoglobin 28.7 pg 27.0-33.0 Norm al (applies to non-numeric results) MEDENT ([facility] ) Red Cell Distribution Width 19.7 % 11.5-14.5 Above high normal MED[facility] ([facility] Mean Corpuscular HGB Conc 31.4 g/dL 32.0-36.5 Below low normal MED[facility] ([facility] Platelet Count, Automated 168 10 150-450 Normal (applies to non-numeric results) MED[facility] ([facility] ) Neutrophils % 70.5 % 36.0-66.0 Above high normal MEDE NT ([facility] Lymph % 7.3 % 24.0-44.0 Below low normal MEDENT ( [facility] Eos % 0.7 % 0.0-3.0 Normal (applies to non-numeric resul ts) MED[facility] ([facility] [place] % 16.3 % 0.0-5.0 Above high normal MED[facility] ([facility] Nucleated Red Blood Cell % 0.0 % 0-0 Normal (applies to n on-numeric results) MED[facility] ([facility] Immature Granulocyte % 4.6 % 0-3.0 Above high normal MED[facility] ([facility] Neutrophils # 6.2 10 1.5-8.5 Normal (applies to non-numeric re sults) MEDENT ([facility] Baso % 0.6 % 0.0-1.0 Normal (applies to non-numeric resul ts) MEDENT ([facility] Eos # 0.1 10 0.0-0.5 Normal (applies to non-numeric resul ts) MEDENT ([facility] Lymph # 0.6 10 1.5-5.0 Below low normal MEDENT ( [facility] [place] # 1.4 10 0.0-0.8 Above high normal MEDENT ([facility] Baso # 0.1 10 0.0-0.2 Normal (applies to non-numeric resul ts) MEDENT ([facility] ID Date Data Source [id number] 09/16/2019 02:38:00 PM EDT MEDENT ([facility] Name Value Range Interpretation Code Description Data Pennie rce(s) Supporting Document(s) Alt/SGPT 16 U/L 12-78 Normal (applies to non-numeric resul ts) MEDENT ([facility] Ast/Sgot 20 U/L 7-37 Normal (applies to non-numeric resul ts) MEDENT ([facility] Alkaline Phosphatase 35 U/L 45-117 Below low normal MEDENT ([facility] Bilirubin,Direct 0.3 mg/dL 0.0-0.2 Above high normal M EDENT ([facility] Total Protein 5.5 GM/DL 6.4-8.2 Below low normal MEDEN T ([facility] Bilirubin,Total 0.7 mg/dL 0.2-1.0 Normal (applies to non-numeric results) MEDENT ([facility] Albumin 2.9 GM/DL 3.2-5.2 Below low normal MEDENT ( [facility] Albumin/Globulin Ratio 1.1 Normal (applies to non-n umeric results) MED[facility] ([facility] ID Date Data Source [id number] 09/16/2019 02:38:00 PM EDT DAWNA ([facility] Name Value Range Interpretation Code Description Data Pennie rce(s) Supporting Document(s) Creatinine For GFR 1.38 mg/dL 0.70-1.30 Above high normal [facility] Blood Urea Nitrogen 15 mg/dL 7-18 Normal (applies to non-nume cristian results) [facility] Glucose, Fasting 85 mg/dL 70-100 Normal (applies to non-numeric results) [facility] Potassium Serum 4.3 meq/L 3.5-5.1 Normal (applies to non-numeric results) [facility] Sodium Level 142 meq/L 136-145 Normal (applies to non-numeric res ults) [facility] Glomerular Filtration Rate 52.3 Normal (applies to n on-numeric results) [facility] ([facility] <content>Units are mL/min/1.73 m2</content>
<content></content>
<content>Chronic Kidney Disease Staging per NKF:</content>
<content></content>
<content>Stage I & II GFR >=60 Normal to Mildly Decreased</content>
<content>Stage III GFR 30-59 Moderately Decreased</content>
<content>Stage IV GFR 15-29 Severely Decreased</content>
<content>Stage V GFR <15 Very Little GFR Left</content>
<content>ESRD GFR <15 on SENIOR MANAGER ASSET PROTECTION</content>
<content></content> Carbon Dioxide Level 29 meq/L 21-32 Normal (applies to non-num romeo results) MEDZAFAR ([facility] Anion Gap 7 meq/L 8-16 Below low normal [facility] Chloride Level 106 meq/L 98-107 Normal (applies to non-numeric r esults) DAWNA ([facility] Calcium Level 8.4 mg/dL 8.8-10.2 Below low normal MEDEN T ([facility] ID Date Data Source [id number] 09/16/2019 02:38:00 PM EDT MEDENT ([facility] Name Value Range Interpretation Code Description Data Pennie rce(s) Supporting Document(s) Lipoprotein lipase [Enzymatic activity/volume] in Serum or P lasma 124 U/L 73-393 Normal (applies to non-numeric results) MEDENT ([facility] ID Date Data Source [id number] 09/16/2019 02:38:00 PM EDT MEDENT ([facility] Name Value Range Interpretation Code Description Data Pennie rce(s) Supporting Document(s) Respiratory Panel Laboratory test result MEDENT ([facility] This respiratory PCR panel detects Influ [...] 1: HUMAN RHINOVIRUS/ENTEROVIRUS ID Date Data Source [id number] 09/03/2019 10:07:00 AM EDT MED[facility] Name Value Range Interpretation Code Description Data Pennie rce(s) Supporting Document(s) Erythrocytes [#/volume] in Blood by Automated count 3.72 x10E6/uL 4.1 4-5.80 MEDENT ([facility]) CHRONIC KIDNEY DISEASE STAGING PER [...] Automated count 9.5 x10E3/uL 3.4-10 .8 MEDENT ([facility]) CHRONIC KIDNEY DISEASE STAGING PER [...] 32.8 % 3 7.5-51.0 MEDENT ([facility]) CHRONIC KIDNEY DISEASE STAGING PER NKF: MALE [...] Blood 10.8 g/dL 13.0-17.7 MEDENT ([facility]) CHRONIC KIDNEY DISEASE STAGING PER NKF: MALE [...] by Auto mated count 88 fL 79-97 MEDFlaconi ([facility]) CHRONIC KIDNEY DISEASE STAGING PER [...] mass] by Automated count 29.0 pg 26.6-33.0 MEDFlaconi ([facility]) CHRONIC KIDNEY DISEASE STAGING PER [...] g/dL 31.5-35.7 MEDENT ([facility]) CHRONIC KIDNEY DISEASE STAGING PER [...] [Ratio] by Automated count 17.7 % 11.6-15.4 [facility] CHRONIC KIDNEY DISEASE STAGING PER NKF: MALE [...] Blood by Automated count 191 x10E3/uL 150-450 [facility] CHRONIC KIDNEY DISEASE STAGING PER NKF: MALE [...] Normal Neutrophils 73 % MEDENT ([facility]) CHRONIC KIDNEY DISEASE STAGING PER [...] Lymphs 10 % MEDENT ([facility]) CHRONIC KIDNEY DISEASE STAGING PER NKF: MALE [...] Automated count 0 % MEDENT ([facility]) CHRONIC KIDNEY DISEASE STAGING PER NKF: MALE [...] Automated count 12 % MEDENT ([facility]) CHRONIC KIDNEY DISEASE STAGING PER NKF: MALE [...] 6.9 x10E3/uL 1.4-7 .0 MEDENT ([facility]) CHRONIC KIDNEY DISEASE STAGING PER NKF: MALE [...] Automated count 0 % MEDENT ([facility]) CHRONIC KIDNEY DISEASE STAGING PER NKF: MALE [...] [#/volume] in Blood Laboratory test result MEDENT ([facility]) CHRONIC KIDNEY DISEASE STAGING PER NKF: MALE [...] [#/volume] in Blood 0.9 x10E3/uL 0.7-3.1 MEDENT ([facility]) CHRONIC KIDNEY DISEASE STAGING PER [...] 0.0 x10E3/uL 0.0-0 .4 MED[facility] ([facility]) CHRONIC KIDNEY DISEASE STAGING PER NKF: MALE [...] Blood 1.2 x10E3/uL 0.1-0.9 MED[facility] ([facility]) CHRONIC KIDNEY DISEASE STAGING PER NKF: MALE [...] count 0.0 x10E3/uL 0.0-0.2 MED[facility] ([facility]) CHRONIC KIDNEY DISEASE STAGING PER NKF: MALE [...] count 0.4 x10E3/uL 0.0-0.1 MED[facility] ([facility]) CHRONIC KIDNEY DISEASE STAGING PER NKF: MALE [...] Automated count 5 % MEDENT ([facility]) CHRONIC KIDNEY DISEASE STAGING PER [...] count Laboratory test result MEDENT ([facility]) CHRONIC KIDNEY DISEASE STAGING PER NKF: MALE [...] in Blood Narrative Laboratory test result MEDENT ([facility]) CHRONIC KIDNEY DISEASE STAGING PER NKF: MALE [...] >32 mL/min Normal ID Date Data Source [id number] 09/03/2019 10:07:00 AM EDT MEDENT ([facility]) Name Value Range Interpretation Code Description Data Pennie rce(s) Supporting Document(s) BUN 23 mg/dL 8-23 MEDENT ([facility]) CHRONIC KIDNEY DISEASE STAGING PER [...] mg/dL 70-110 MED[facility] ([facility]) CHRONIC KIDNEY DISEASE STAGING PER [...] Plasma 15.5 Calc MEDENT ([facility]) CHRONIC KIDNEY DISEASE STAGING PER [...] mg/dL 0.7-1.2 MED[facility] ([facility]) CHRONIC KIDNEY DISEASE STAGING PER [...] >32 mL/min Normal K 4.2 mmol/L 3.5-5.1 DAWNA ([facility]) CHRONIC KIDNEY DISEASE STAGING PER [...] Na 142 mmol/L 136-145 MED[facility] ([facility]) CHRONIC KIDNEY DISEASE STAGING PER NKF: MALE [...] 102.8 mmol/L 98.0-107.0 MEDENT ([facility]) CHRONIC KIDNEY DISEASE STAGING PER NKF: MALE [...] mg/dL 8.6-10.2 [facility] ([facility]) CHRONIC KIDNEY DISEASE STAGING PER [...] g/dL 6.6-8.7 MED[facility] ([facility]) CHRONIC KIDNEY [...] 27.4 mmol/L 22.0-29.0 MEDENT ([facility]) CHRONIC KIDNEY DISEASE STAGING PER [...] 2.2 Calc MEDENT ([facility]) CHRONIC KIDNEY DISEASE STAGING PER [...] g/dL 3.5-5.2 MED[facility] ([facility]) CHRONIC KIDNEY DISEASE STAGING PER [...] by calculation 1.7 Calc MEDENT ([facility]) CHRONIC KIDNEY DISEASE STAGING PER NKF: MALE [...] 36.9 U/L 40-129 MED[facility] ([facility]) CHRONIC KIDNEY DISEASE STAGING PER NKF: MALE [...] in Serum or Plasma 13 U/L 0-40 [facility]) CHRONIC KIDNEY DISEASE STAGING PER [...] Plasma 7 U/L 0-41 [facility] ([facility]) CHRONIC KIDNEY DISEASE STAGING PER NKF: MALE [...] or Plasma 16 mmol/L [facility] ([facility]) CHRONIC KIDNEY DISEASE STAGING PER NKF: MALE [...] Tbili 0.44 mg/dL 0.0-1.2 [facility] ([facility]) CHRONIC KIDNEY DISEASE STAGING PER NKF: MALE [...] Normal Osmolality-Calculated 291.8 Calc [facility] ([facility]) CHRONIC KIDNEY DISEASE STAGING PER NKF: MALE [...] above >32 mL/min Normal eGFR 49 # [facility] ( [facility]) CHRONIC KIDNEY DISEASE STAGING PER NKF: MALE [...] and above >32 mL/min Normal eGFR Non-Afr. [place] 42 # [facility] ([facility]) CHRONIC KIDNEY DISEASE STAGING PER NKF: MALE [...] >32 mL/min Normal ID Date Data Source [id number] 09/03/2019 10:07:00 AM EDT [facility] ([facility] Name Value Range Interpretation Code Description Data Pennie rce(s) Supporting Document(s) Erythrocytes [#/volume] in Blood by Automated count 3.72 x10E6/u L 4.14-5.80 Below low normal [facility] ([facility] ) Leukocytes [#/volume] in Blood by Automated count 9.5 x10E3/uL 3.4-10 .8 [facility] ([facility] Hemoglobin [Mass/volume] in Blood 10.8 g/dL 13.0-17.7 Below low nor mal [facility] ([facility] Hematocrit [Volume Fraction] of Blood by Automated count 32.8 % 37.5-51.0 Below low normal [facility] ([facility] ) Erythrocyte mean corpuscular hemoglobin [Entitic mass] by Automated count 29.0 pg 26.6-33.0 [facility] ([facility] Erythrocyte mean corpuscular volume [Entitic volume] by Auto mated count 88 fL 79-97 [facility] ([facility] Erythrocyte mean corpuscular hemoglobin concentration [Mass/volume] by Automated count 32.9 g/dL 31.5-35.7 [facility] ([facility] Erythrocyte distribution width [Ratio] by Automated count 17.7 % 11.6-15.4 Above high normal [facility] ([facility] Platelets [#/volume] in Blood by Automated count 191 x10E3/uL 150-450 [facility] ([facility] Lymphs 10 % [facility] Monocytes/100 leukocytes in Blood by Automated count 12 % [facility] ([facility] Neutrophils 73 % [facility] ([facility] Eosinophils/100 leukocytes in Blood by Automated count 0 % [facility] ([facility] Basophils/100 leukocytes in Blood by Automated count 0 % [facility] ([facility] Immature cells [#/volume] in [...] .4 [facility] ([facility] Immature granulocytes [#/volume] in Blood by Automated count 0.4 x10E3/uL 0.0-0.1 Above high normal [facility] ([facility] (An elevated percentage of Immature Gran ulocytes has not been found to be clinically significant as a sole clinical predictor of disease. Does NOT include bands or blast cells. associated physiological leukocytosis may also show increased immature granulocytes without clinical significance.) Immature granulocytes/100 leukocytes in Blood by Automated count 5 % [facility] ([facility] Basophils [#/volume] in Blood by Automated count 0.0 x10E3/uL 0.0-0.2 [facility] ([facility] Nucleated erythrocytes/100 leukocytes [Ratio] in Blood by Automated count Laboratory test result MEDZAFAR ([facility] Morphology [Interpretation] in Blood Narrative Laboratory test result DAW[facility] ([facility] ID Date Data Source [id number] 09/03/2019 10:07:00 AM EDT MEDZAFAR ([facility] Name Value Range Interpretation Code Description Data Pennie rce(s) Supporting Document(s) Glu 173 mg/dL 70-110 Above high normal [facility] ([facility] CHRONIC KIDNEY DISEASE STAGING PER NKF: [...] mL/min Normal Na 142 mmol/L 136-145 [facility] CHRONIC KIDNEY DISEASE STAGING PER NKF: [...] >32 mL/min Normal BUN/Creatinine Ratio 15.5 Calc [facility] ([facility] CHRONIC KIDNEY [...] mL/min Normal BUN 23 mg/dL 8-23 [facility] ([facility] CHRONIC [...] >32 mL/min Normal CL 102.8 mmol/L 98.0-107.0 [facility] CHRONIC KIDNEY DISEASE STAGING PER [...] mL/min Normal K 4.2 mmol/L 3.5-5.1 [facility] ([facility] CHRONIC KIDNEY DISEASE STAGING [...] >32 mL/min Normal CA 9.0 mg/dL 8.6-10.2 [facility] CHRONIC KIDNEY DISEASE STAGING PER [...] mL/min Normal Co2 27.4 mmol/L 22.0-29.0 [facility] ([facility] CHRONIC KIDNEY DISEASE STAGING [...] mL/min Normal Alb 3.8 g/dL 3.5-5.2 [facility] ([facility] CHRONIC [...] Calc [facility] ([facility] CHRONIC [...] >32 mL/min Normal Globulin 1.7 Calc [facility] CHRONIC KIDNEY DISEASE STAGING [...] Normal Ast (Sgot) 13 U/L 0-40 [facility] ([facility] CHRONIC KIDNEY DISEASE [...] mL/min Normal Alt (SGPT) 7 U/L 0-41 [facility] ([facility] CHRONIC KIDNEY DISEASE [...] mL/min Normal Tbili 0.44 mg/dL 0.0-1.2 [facility] ([facility] CHRONIC KIDNEY DISEASE STAGING [...] >32 mL/min Normal Anion Gap 16 mmol/L [facility] ([facility] [...] and above >32 mL/min Normal eGFR Non-Afr. [place] 42 # [facility] ([facility] [...] above >32 mL/min Normal eGFR 49 # [facility] ( [facility] CHRONIC KIDNEY DISEASE STAGING [...] >32 mL/min Normal ID Date Data Source [id number] 08/16/2019 02:44:00 PM EDT [facility] ([facility] Name Value Range Interpretation Code Description Data Pennie rce(s) Supporting Document(s) Leukocytes [#/volume] in Blood by Automated count 12.4 x10E3/uL 3.4-10.8 Above high normal [facility] ([facility] Hematocrit [Volume Fraction] of Blood by Automated count 33.9 % 37.5-51.0 Below low normal [facility] ([facility] ) Erythrocytes [#/volume] in Blood by Automated count 3.88 x10E6/u L 4.14-5.80 Below low normal [facility] ([facility] ) Hemoglobin [Mass/volume] in Blood 11.4 g/dL 13.0-17.7 Below low nor mal [facility] ([facility] Erythrocyte mean corpuscular volume [Entitic volume] by Auto mated count 87 fL 79-97 [facility] ([facility] Erythrocyte mean corpuscular hemoglobin concentration [Mass/volume] by Automated count 33.6 g/dL 31.5-35.7 [facility] ([facility] Erythrocyte mean corpuscular hemoglobin [Entitic mass] by Automated count 29.4 pg 26.6-33.0 [facility] ([facility] Lymphs 6 % [facility] Platelets [#/volume] in Blood by Automated count 189 x10E3/uL 150-450 [facility] ([facility] Erythrocyte distribution width [Ratio] by Automated count 17.7 % 11.6-15.4 Above high normal [facility] ([facility] ) Neutrophils 79 % [facility] ([facility] Monocytes/100 leukocytes in Blood [...] 9.9 x10E3/uL 1.4-7.0 Above high normal [facility] ([facility] Lymphocytes [#/volume] in Blood 0.7 x10E3/uL 0.7-3.1 [facility] ([facility] Eosinophils [#/volume] in Blood by Automated count 0.1 x10E3/uL 0.0-0 .4 [facility] ([facility] Basophils [#/volume] in Blood by Automated count 0.1 x10E3/uL 0.0-0.2 [facility] ([facility] Monocytes [#/volume] in Blood 1.4 x10E3/uL 0.1-0.9 Above high norm al [facility] ([facility] Immature granulocytes/100 leukocytes in Blood by Automated count 2 % [facility] ([facility] Immature granulocytes [#/volume] in Blood by Automated count 0.3 x10E3/uL 0.0-0.1 Above high normal [facility] ([facility] (An elevated percentage of Immature Gran ulocytes has not been found to be clinically significant as a sole clinical predictor of disease. Does NOT include bands or blast cells. associated physiological leukocytosis may also show increased immature granulocytes without clinical significance.) Nucleated erythrocytes/100 leukocytes [Ratio] in Blood by Automated count Laboratory test result [facility] ([facility] Morphology [Interpretation] in Blood Narrative Laboratory test result MEDZAFAR ([facility] ID Date Data Source [id number] 08/16/2019 02:44:00 PM EDT MEDZAFAR ([facility] Name Value Range Interpretation Code Description Data Pennie rce(s) Supporting Document(s) Glu 143 mg/dL 70-110 Above high normal [facility] ([facility] CHRONIC KIDNEY DISEASE STAGING [...] mL/min Normal BUN/Creatinine Ratio 13.8 CALC [facility] ([facility] CHRONIC KIDNEY [...] 1.8 mg/dL 0.7-1.2 Above high normal [facility] ([facility] CHRONIC KIDNEY DISEASE STAGING [...] 25 mg/dL 8-23 Above high normal [facility] ([facility] CHRONIC KIDNEY DISEASE STAGING [...] mL/min Normal K 3.7 mmol/L 3.5-5.1 [facility] ([facility] CHRONIC KIDNEY DISEASE STAGING PER [...] mL/min Normal Na 138 mmol/L 136-145 [facility] ([facility] CHRONIC KIDNEY DISEASE [...] mL/min Normal CA 9.1 mg/dL 8.6-10.2 [facility] CHRONIC KIDNEY DISEASE STAGING [...] mL/min Normal Alb 3.6 g/dL 3.5-5.2 [facility] ([facility] CHRONIC [...] mL/min Normal A/G Ratio 1.8 CALC [facility] ([facility] CHRONIC KIDNEY DISEASE [...] above >32 mL/min Normal Globulin 2.0 CALC [facility] ([facility] CHRONIC KIDNEY DISEASE [...] Normal Alt (SGPT) 7 U/L 0-41 [facility] ([facility] CHRONIC KIDNEY DISEASE STAGING PER [...] mL/min Normal Alp 44.9 U/L 40-129 [facility] ([facility] CHRONIC KIDNEY DISEASE [...] mL/min Normal Tbili 0.60 mg/dL 0.0-1.2 [facility] ([facility] CHRONIC [...] >32 mL/min Normal Anion Gap 15 mmol/L [facility] ([facility] [...] and above >32 mL/min Normal eGFR Non-Afr. [place] 34 # [facility] ([facility] CHRONIC [...] mL/min Normal eGFR 39 # [facility] ( [facility] CHRONIC [...] >32 mL/min Normal ID Date Data Source [id number] 08/08/2019 03:19:00 PM EDT [facility] ([facility]) Name Value Range Interpretation Code Description Data Pennie rce(s) Supporting Document(s) Glucose 144 70-100 [facility] ([facility]) Sodium 144 136-145 [facility] ([facility]) Blood Urea Nitrogen 17 7-18 [facility] ([facility]) Creatinine 1.17 0.70-1.30 [facility] ([facility]) Potassium 4.2 3.5-5.1 [facility] ([facility] Carbon Dioxide 36 21-32 [facility] ([facility]) Chloride 106 98-107 [facility] ([facility]) Calcium 8.3 8.8-10.2 [facility] ([facility]) Glomerular filtration rate/1.73 sq M.pre dicted [Volume Rate/Area] in Serum or Plasma by Creatinine-based formula (MDRD) Laboratory test result [facility] ([facility]) ID Date Data Source [id number] 08/08/2019 03:19:00 PM EDT [facility] ([facility]) Name Value Range Interpretation Code Description Data Pennie rce(s) Supporting Document(s) White Blood Count 9.6 4.0-10.0 [facility] ([facility]) Hemoglobin 11.8 [facility] ([facility]) Platelets 226 150-450 [facility] ([facility] Red Blood Count 3.96 4.30-6.10 [facility] ([facility]) Hematocrit 37.6 [facility] ([facility]) ID Date Data Source [id number] 07/16/2019 06:39:00 PM EDT [facility] ([facility] Name Value Range Interpretation Code Description Data Pennie rce(s) Supporting Document(s) Ferritin [Mass/volume] in Serum or Plasma 235 ng/mL 26-388 Normal (applies to non-numeric results) [facility] ([facility]) Lactate dehydrogenase [Enzymatic activity/volume] in Serum o r Plasma 172 U/L 87-241 Normal (applies to non-numeric results) [facility] ([facility] C reactive protein [Mass/volume] in Serum or Plasma by High sensitivity method 14.70 mg/dL 0.00-0.30 Above high normal [facility] ([facility] ID Date Data Source [id number] 07/16/2019 06:39:00 PM EDT [facility] ([facility] Name Value Range Interpretation Code Description Data Pennie rce(s) Supporting Document(s) MB/CK Relative Index 3.57 Normal (applies to non-num romeo results) [facility] <content>DIAGNOSIS CRITERIA</content>
<content>MMB ng/ml Relative Index (RI)</content>
<content>NON-AMI < or = 5 N/A</content>
<content>CHANEY ZONE > 5 < or = 4</content>
<content>AMI > 5 > 4</content>
<content></content> CK-MB Value Mass Laboratory test result Normal ( applies to non-numeric results) [facility] CPK Creatine Phosphokinase 28 U/L 39-308 Below low normal [facility] ([facility] Troponin I Laboratory test result Normal (applies to non-n umeric results) [facility] ([facility] <content>Troponin I Reference Interval f or Siemens Ira LOCI:</content>
<content></content>
<content>99th Percentile= 0.00-0.045 ng/ml</content>
<content></content>
<content>Risk Stratification:</content>
<content><= 0.10 ng/ml Decreased Risk for Adverse Clinical</content>
<content>Events.</content>
<content>0.10-1.50 ng/ml Increased Risk for Adverse Clinical</content>
<content>Events. Evaluation of additional</content>
<content>criterion and/or repeat testing in 2-6</content>
<content>hours is suggested to rule out myocardial</content>
<content>damage.</content>
<content>>= 1.50 ng/ml Indicative of Myocardial Injury.</content>
<content></content> ID Date Data Source [id number] 07/16/2019 06:39:00 PM EDT [facility] ([facility] Name Value Range Interpretation Code Description Data Pennie rce(s) Supporting Document(s) Glucose, Fasting 120 mg/dL 70-100 Above high normal M EDENT ([facility] Creatinine For GFR 1.76 mg/dL 0.70-1.30 Above high normal [facility] ([facility] Blood Urea Nitrogen 24 mg/dL 7-18 Above high normal [facility] ([facility] Potassium Serum 4.0 meq/L 3.5-5.1 Normal (applies to non-numeric results) [facility] ([facility] Sodium Level 141 meq/L 136-145 Normal (applies to non-numeric res ults) [facility] ([facility] Glomerular Filtration Rate 39.5 Normal (applies to n on-numeric results) [facility] ([facility] <content>Units are mL/min/1.73 m2</content>
<content></content>
<content>Chronic Kidney Disease Staging per NKF:</content>
<content></content>
<content>Stage I & II GFR >=60 Normal to Mildly Decreased</content>
<content>Stage III GFR 30- 59 Moderately Decreased</content>
<content>Stage IV GFR 15-29 Severely Decreased</content>
<content>Stage V GFR <15 Very Little GFR Left</content>
<content>ESRD GFR <15 on SENIOR MANAGER ASSET PROTECTION</content>
<content></content> Carbon Dioxide Level 35 meq/L 21-32 Above high normal [facility] ([facility] Chloride Level 102 meq/L 98-107 Normal (applies to non-numeric r esults) [facility] ([facility] Anion Gap 4 meq/L 8-16 Below low normal [facility] ( [facility] Alt/SGPT 16 U/L 12-78 Normal (applies to non-numeric resul ts) [facility] ([facility] Ast/Sgot 22 U/L 7-37 Normal (applies to non-numeric resul ts) [facility] ([facility] Calcium Level 8.6 mg/dL 8.8-10.2 Below low normal [facility]EN T ([facility] Albumin 2.9 GM/DL 3.2-5.2 Below low normal [facility] ( [facility] Alkaline Phosphatase 38 U/L 45-117 Below low normal [facility] ([facility] Total Protein 5.7 GM/DL 6.4-8.2 Below low normal [facility]EN T ([facility] Bilirubin,Total 0.5 mg/dL 0.2-1.0 Normal (applies to non-numeric results) [facility] ([facility] Albumin/Globulin Ratio 1.04 1.00-1.93 Normal (applies to non-numeric results) [facility] ([facility] ID Date Data Source [id number] 07/16/2019 06:39:00 PM EDT [facility] ([facility] Name Value Range Interpretation Code Description Data Pennie rce(s) Supporting Document(s) Fibrin D-dimer FEU [Mass/volume] in Platelet poor plasma 325.56 ng/mL Normal (applies to non-numeric results) [facility] Lactate [Mass/volume] in Serum or Plasma 0.8 mmol/L 0.4-2.0 Normal (applies to non-numeric results) [facility] ([facility]) Y/N query for Sepsis Lactate Rule: Y ID Date Data Source [id number] 07/16/2019 06:39:00 PM EDT [facility] ([facility] Name Value Range Interpretation Code Description Data Pennie rce(s) Supporting Document(s) Prothrombin Time 16.4 s 11.8-14.0 Above high normal M [facility]ENT ([facility] Inr 1.35 Normal (applies to non-numeric resul ts) [facility] ([facility] THERAPUTIC HUMAN INR VALUES INDICATIONS NORMAL RANGES PROPHYLAXIS/TREATMENT OF: VENOUS THROMBOSIS 2.0-3.0 PULMONARY EMBOLISM 2.0-3.0 PREVENTION OF SYSTEMIC EMBOLISM FROM: TISSUE HEART VALVES 2.0-3.0 ACUTE MYOCARDIAL INFARCTION 2.0-3.0 VALVULAR HEART DISEASE 2.0-3.0 ATRIAL FIBRILLATION 2.0-3.0 MECHANICAL VALVES(HIGH RISK) 2.5-3.5 RECURRENT MYOCARDIAL INFARCTION 2.5-3.5 Partial Thromboplastin Time 38.3 s 25.0-38.4 Norm al (applies to non-numeric results) [facility] ([facility] ) ID Date Data Source [id number] 07/16/2019 06:39:00 PM EDT [facility] ([facility] Name Value Range Interpretation Code Description Data Pennie rce(s) Supporting Document(s) Red Blood Count 3.56 10 4.30-6.10 Below low normal [facility] ([facility] White Blood Count 8.1 10 4.0-10.0 Normal (applies to non-numeri c results) [facility] ([facility] Hematocrit 32.4 % 42.0-52.0 Below low normal [facility] ( [facility] Hemoglobin 10.5 g/dL 13.5-17.5 Below low normal [facility] ( [facility] Mean Corpuscular Volume 91.0 fl 80.0-96.0 Normal ( applies to non-numeric results) [facility] ([facility] ) Mean Corpuscular HGB Conc 32.4 g/dL 32.0-36.5 Normal (applies to non-numeric results) [facility] ([facility] Mean Corpuscular Hemoglobin 29.5 pg 27.0-33.0 Norm al (applies to non-numeric results) [facility] ([facility] ) Red Cell Distribution Width 19.5 % 11.5-14.5 Above high normal [facility] ([facility] Platelet Count, Automated 161 10 150-450 Normal (applies to non-numeric results) [facility] ([facility] ) Neutrophils % 68.2 % 36.0-66.0 Above high normal MED[facility] NT ([facility] Lymph % 6.0 % 24.0-44.0 Below low normal [facility] ( [facility] Baso % 0.4 % 0.0-1.0 Normal (applies to non-numeric resul ts) [facility] ([facility] Eos % 0.1 % 0.0-3.0 Normal (applies to non-numeric resul ts) [facility] ([facility] [place] % 23.4 % 0.0-5.0 Above high normal [facility] ([facility] Immature Granulocyte % 1.9 % 0-3.0 Normal (applies to non-n umeric results) [facility] ([facility] Nucleated Red Blood Cell % 0.0 % 0-0 Normal (applies to n on-numeric results) [facility] ([facility] Lymph # 0.5 10 1.5-5.0 Below low normal [facility] ( [facility] Neutrophils # 5.5 10 1.5-8.5 Normal (applies to non-numeric re sults) [facility] ([facility] Eos # 0.0 10 0.0-0.5 Normal (applies to non-numeric resul ts) [facility] ([facility] [place] # 1.9 10 0.0-0.8 Above high normal [facility] ([facility] Baso # 0.0 10 0.0-0.2 Normal (applies to non-numeric resul ts) [facility] ([facility] ID Date Data Source [id number] 07/16/2019 06:39:00 PM EDT [facility] ([facility] Name Value Range Interpretation Code Description Data Pennie rce(s) Supporting Document(s) Laboratory test finding (navigational concept) Laboratory test r esult Abnormal (applies to non-numeric results) [facility] ([facility] DISCLAIMER: Testing was performed using the [employer] SARS-CoV-2 test. This test was developed and its performance characteristics determined by [employer]. This test has not been FDA cleared [...] or revoked sooner. ID Date Data Source [id number] 06/02/2019 09:52:00 AM EST [facility] ([facility]) Name Value Range Interpretation Code Description Data Pennie rce(s) Supporting Document(s) Magnesium Level 1.57 [facility] ([facility]) ID Date Data Source [id number] 06/02/2019 09:52:00 AM EST [facility] ([facility]) Name Value Range Interpretation Code Description Data Pennie rce(s) Supporting Document(s) White Blood Count 11.5 5.0-10.0 [facility] ([facility]) Red Blood Count 3.78 4.70-6.10 [facility] ([facility]) Platelets 207 172-450 [facility] Hematocrit 34.4 42.0-52.0 [facility] ([facility]) Hemoglobin 11.6 14.0-18.0 [facility] ([facility]) ID Date Data Source [id number] 06/02/2019 09:52:00 AM EST [facility] ([facility]) Name Value Range Interpretation Code Description Data Pennie rce(s) Supporting Document(s) Glucose 152 70-100 [facility] ([facility] [place] Blood Urea Nitrogen 24.2 7-25 [facility] ([facility] Glomerular filtration rate/1.73 sq M.pre dicted [Volume Rate/Area] in Serum or Plasma by Creatinine-based formula (MDRD) 43 [facility] ([facility] [place]) Creatinine 1.56 0.6-1.4 [facility] ([facility] [place]) Chloride 99.5 98-110 [facility] ([facility] [place] Potassium 3.87 3.5-5.3 [facility] ([facility] [place]) Sodium 139.0 136-146 [facility] ([facility] [place] Phosphorus 2.99 [facility] ([facility] [place]) Carbon Dioxide 33.1 22-33 [facility] ([facility]) Calcium 8.98 8.4-10.4 [facility] ([facility]) Albumin 4.1 3.5-4.7 [facility] ([facility]) ID Date Data Source [id number] 05/26/2019 01:12:00 PM EST [facility] ([facility] Name Value Range Interpretation Code Description Data Pennie rce(s) Supporting Document(s) Leukocytes [#/volume] in Blood by Automated count 9.5 x10E3/uL 3.4-10 .8 [facility] ([facility] Erythrocytes [#/volume] in Blood by Automated count 3.55 x10E6/u L 4.14-5.80 Below low normal [facility] ([facility] ) Hemoglobin [Mass/volume] in Blood 10.4 g/dL 13.0-17.7 Below low nor mal [facility] ([facility] Hematocrit [Volume Fraction] of Blood by Automated count 32.5 % 37.5-51.0 Below low normal [facility] ([facility] ) Erythrocyte mean corpuscular volume [Entitic volume] by Auto mated count 92 fL 79-97 [facility] ([facility] Erythrocyte mean corpuscular hemoglobin concentration [Mass/volume] by Automated count 32.0 g/dL 31.5-35.7 [facility] ([facility] Erythrocyte distribution width [Ratio] by Automated count 18.9 % 11.6-15.4 Above high normal [facility] ([facility] ) Erythrocyte mean corpuscular hemoglobin [Entitic mass] by Automated count 29.3 pg 26.6-33.0 [facility] ([facility] Platelets [#/volume] in Blood by Automated count 172 x10E3/uL 150-450 [facility] ([facility] Lymphs 11 % [facility] ([facility] Neutrophils 79 % [facility] ([facility] Immature cells [#/volume] in [...] 7.4 x10E3/uL 1.4-7.0 Above high normal [facility] ([facility] ) Eosinophils [#/volume] in Blood by Automated count 0.0 x10E3/uL 0.0-0 .4 [facility] ([facility] Basophils [#/volume] in Blood by Automated count 0.0 x10E3/uL 0.0-0.2 [facility] ([facility] Immature granulocytes/100 leukocytes in Blood by Automated count 5 % [facility] ([facility] Morphology [Interpretation] in Blood Narrative Laboratory test result [facility] ([facility] Immature granulocytes [#/volume] in Blood by Automated count 0.5 x10E3/uL 0.0-0.1 Above high normal [facility] ([facility] (An elevated percentage of Immature Gran ulocytes has not been found to be clinically significant as a sole clinical predictor of disease. Does NOT include bands or blast cells. associated physiological leukocytosis may also show increased immature granulocytes without clinical significance.) Nucleated erythrocytes/100 leukocytes [Ratio] in Blood by Automated count Laboratory test result [facility] ([facility] ID Date Data Source [id number] 05/26/2019 01:12:00 PM EST MED[facility] ([facility] Name Value Range Interpretation Code Description Data Pennie rce(s) Supporting Document(s) Glu 161 mg/dL 70-110 Above high normal [facility] ([facility] CLASSIFICATION CHOLESTEROL FO R [...] 32 mg/dL 8-23 Above high normal [facility] ([facility] CLASSIFICATION CHOLESTEROL FO R [...] Creat 1.7 mg/dL 0.7-1.2 Above high normal [facility] CLASSIFICATION CHOLESTEROL FO [...] above >32 mL/min Normal BUN/Creatinine Ratio 18.5 Calc [facility] ([facility] CLASSIFICATION CHOLESTEROL FO R ADULTS [...] mL/min Normal Co2 27.2 mmol/L 22.0-29.0 [facility] ([facility] CLASSIFICATION CHOLESTEROL FO R [...] mL/min Normal CA 9.2 mg/dL 8.6-10.2 [facility] ([facility] CLASSIFICATION [...] Normal A/G Ratio 2.2 Calc [facility] ([facility] CLASSIFICATION CHOLESTEROL FO R [...] Normal Ast (Sgot) 18 U/L 0-40 [facility] ([facility] CLASSIFICATION [...] Normal Alt (SGPT) 14 U/L 0-41 [facility] ([facility] CLASSIFICATION [...] mL/min Normal Tbili 0.40 mg/dL 0.0-1.2 [facility] ([facility] CLASSIFICATION CHOLESTEROL FO [...] and above >32 mL/min Normal eGFR Non-Afr. [place] 36 # [facility] ([facility] [...] >32 mL/min Normal ID Date Data Source [id number] 05/26/2019 01:12:00 PM EST [facility] ([facility] Name Value Range Interpretation Code Description Data Pennie rce(s) Supporting Document(s) Prostate specific Ag [Mass/volume] in Serum or Plasma 44 mg/dL 35-5 5 [facility] ([facility] CLASSIFICATION CHOLESTEROL FO R [...] mL/min Normal Chol 186 mg/dL 0-200 [facility] ([facility] CLASSIFICATION CHOLESTEROL FO [...] mL/min Normal Cho/HDL Ratio 4.3 CALC [facility] CLASSIFICATION CHOLESTEROL FO R ADULTS [...] mL/min Normal LDL_C 107 Calc 75-129 [facility] ([facility] CLASSIFICATION CHOLESTEROL FO R [...] >32 mL/min Normal ID Date Data Source [id number] 05/14/2019 02:40:00 PM EST [facility] ([facility]) Name Value Range Interpretation Code Description Data Pennie rce(s) Supporting Document(s) Magnesium [Mass/volume] in Serum or Plasma 2.1 mg/dL 1.6-2.3 [facility] ([facility]) Laboratory test finding (navigational concept) Laboratory test result [facility] ([facility]) ID Date Data Source [id number] 05/14/2019 02:40:00 PM EST [facility] ([facility]) Name Value Range Interpretation Code Description Data Pennie rce(s) Supporting Document(s) Glucose 107 mg/dL 65-99 [facility] ([facility]) Urea nitrogen [Mass/volume] in Serum or Plasma 29 mg/dL 8-27 [facility] ([facility]) eGFR If NonAfricn Am 37 mL/min/1.73 MEDE NT ([facility]) eGFR If Africn Am 43 mL/min/1.73 [facility] ([facility]) Creatinine 1.67 mg/dL 0.76-1.27 [facility] ([facility]) Urea nitrogen/Creatinine [Mass Ratio] in Serum or Plasma 17 1 0-24 [facility] ([facility]) Sodium 146 mmol/L 134-144 [facility] ([facility]) Carbon dioxide, total [Moles/volume] in Serum or Plasma 28 mmol/L 20 -29 [facility] ([facility]) Potassium [Moles/volume] in Serum or Plasma 4.4 mmol/L 3.5-5.2 [facility] ([facility]) Chloride [Moles/volume] in Serum or Plasma 102 mmol/L 96-106 [facility] ([facility]) Calcium [Mass/volume] in Serum or Plasma 8.8 mg/dL 8.6-10.2 [facility] ([facility] [place]) ID Date Data Source [id number] 05/15/2019 08:06:00 AM EST [facility] Name Value [...] mg/dL 8.6-10.2 [facility] ID Date Data Source [id number] 05/15/2019 08:06:00 AM EST [facility] Name Value Range Interpretation Code Description Data Pennie rce(s) Supporting Document(s) Magnesium 2.1 mg/dL 1.6-2.3 [facility] ID Date Data Source [id number] 05/05/2019 02:11:02 PM EST [facility] NT INFORMATIONPatient MRN Name Date of Age Gend*PT [id number] TelloMarcy Daniele 1935 83 years M ---PT Location Admission Date/Time Visit ID Attending Provider --- --- --- --- EPI ID CSN Admitting Provider [id number] ---[facility] [id number], [address] (First Floor)[place], [place] [address]Ow.: Fax: Latient: Marcy Sanabria Lee : 1935Date: 05/05/19CARDIOLOGY OFFICE NOTEHISTORY OF [...] Paroxysmal atrial fibrillation. Status post cryoablation December 29, 20182. Diastolic congestive heart failure3. History of sick [...] mg by mouth daily , Disp: ,Rfl: Hudson-3 Fatty Acids (FISH OIL) 1200 MG CAPS, [...] He will continue to follow with his ash collector in [facility]. I would be happy to see him in the future should his A. fib recurSignature: Jose Leslie MD, [facility], [facility]ENTERCardiac Electrophysiology and Arrhythmia ServiceDate: May 05, 2019Time: 2:09 PMThis document or parts of this document, were dictated using [employer]. A reasonable attempt at proofreading has been made to minimize errors.Please call with any questions or corrections. Name Value Range Interpretation Code Description Data Pennie rce(s) Supporting Document(s) ID Date Data Source [id number] 04/26/2019 02:13:00 PM EST [facility] ([facility] Name Value Range Interpretation Code Description Data Pennie rce(s) Supporting Document(s) Leukocytes [#/volume] in Blood by Automated count 18.6 x10E3/uL 3.4-10.8 Above high normal [facility] (Family [...] by Automated count 33.7 g/dL 31.5-35.7 [facility] ([facility] Erythrocyte mean corpuscular hemoglobin [Entitic mass] by Automated count 28.6 pg 26.6-33.0 [facility] ([facility] Neutrophils 82 % [facility] ([facility] Platelets [#/volume] in Blood by Automated count 242 x10E3/uL 150-450 [facility] ([facility] Lymphs 4 % [facility] ([facility] Monocytes/100 leukocytes in Blood by Automated count 11 % [facility] ([facility] Basophils/100 leukocytes in Blood by Automated count 3 % [facility] ([facility] Eosinophils/100 leukocytes in Blood by Automated count 0 % [facility] ([facility] Immature cells [#/volume] in Blood Laboratory test result [facility] ([facility] Eosinophils [#/volume] in Blood by Automated count 0.0 x10E3/uL 0.0-0 .4 [facility] ([facility] Lymphocytes [#/volume] in Blood 0.7 x10E3/uL 0.7-3.1 [facility] ([facility] Monocytes [#/volume] in Blood 2.0 x10E3/uL 0.1-0.9 Above high norm al [facility] ([facility] Neutrophils [#/volume] in Blood by Automated count 15.3 x10E3/uL 1.4-7.0 Above high normal [facility] ([facility] ) Immature granulocytes [#/volume] in Blood by Automated count Laboratory test result [facility] ([facility] Immature granulocytes/100 leukocytes in Blood by Autom ated count Laboratory test result [facility] ([facility] Basophils [#/volume] in Blood by Automated count 0.6 x10E3/uL 0.0-0.2 Above high normal [facility] ([facility] ) Nucleated erythrocytes/100 leukocytes [Ratio] in Blood by Automated count Laboratory test result DAWNA ([facility] Morphology [Interpretation] in Blood Narrative Laboratory test result DAWNA ([facility] Manual differential was performed. ID Date Data Source [id number] 04/26/2019 02:13:00 PM EST MED[facility] ([facility] Name Value Range Interpretation Code Description Data Pennie rce(s) Supporting Document(s) Glu 105 mg/dL 70-110 [facility] ([facility] CHRONIC KIDNEY DISEASE STAGING PER NKF: [...] 1.9 mg/dL 0.7-1.2 Above high normal [facility] ([facility] CHRONIC KIDNEY DISEASE STAGING PER [...] 27 mg/dL 8-23 Above high normal [facility] ([facility] CHRONIC KIDNEY DISEASE STAGING PER [...] mL/min Normal BUN/Creatinine Ratio 14.5 Calc [facility] ([facility] CHRONIC KIDNEY [...] mL/min Normal Na 140 mmol/L 136-145 [facility] ([facility] CHRONIC KIDNEY DISEASE STAGING [...] mL/min Normal CA 9.2 mg/dL 8.6-10.2 [facility] ([facility] CHRONIC KIDNEY DISEASE [...] >32 mL/min Normal Anion Gap 14 mmol/L [facility] ([facility] [...] mL/min Normal eGFR 36 # DAWNA ( [facility] CHRONIC KIDNEY DISEASE STAGING [...] mL/min Normal CL 101.1 mmol/L 98.0-107.0 DAWNA ([facility] CHRONIC KIDNEY DISEASE STAGING PER [...] and above >32 mL/min Normal eGFR Non-Afr. [place] 31 # [facility]WNA ([facility] CHRONIC KIDNEY DISEASE [...] >32 mL/min Normal ID Date Data Source [id number] 04/05/2019 03:56:00 PM MONA TONEY ([facility]) Name Value Range Interpretation Code Description Data Pennie rce(s) Supporting Document(s) BUN 14 mg/dL 8 MEDZAFAR ([facility]) CHRONIC KIDNEY DISEASE STAGING PER [...] HCT IS 5% LESS SOURCE FOR DATA: Kenzei DYN 1800 OPERATION MANUAL( AUTOMATED BLOOD COUNTS AND DIFF.) APPENDIX B-3 Glu 153 mg/dL 70-110 [facility] ([facility]) CHRONIC KIDNEY DISEASE STAGING PER [...] HCT IS 5% LESS SOURCE FOR DATA: bluebird bio 1800 OPERATION MANUAL( AUTOMATED BLOOD COUNTS AND DIFF.) APPENDIX B-3 Urea nitrogen/Creatinine [Mass Ratio] in Serum or Plasma 7.8 CALC [facility] ([facility]) CHRONIC KIDNEY DISEASE STAGING PER NKF: MALE [...] HCT IS 5% LESS SOURCE FOR DATA: bluebird bio 1800 OPERATION MANUAL( AUTOMATED BLOOD COUNTS AND DIFF.) APPENDIX B-3 Creat 1.8 mg/dL 0.7-1.2 [facility] ([facility]) CHRONIC KIDNEY DISEASE STAGING PER [...] Co2 29.5 mmol/L 22.0-29.0 [facility] ([facility]) CHRONIC KIDNEY DISEASE STAGING PER NKF: MALE [...] HCT IS 5% LESS SOURCE FOR DATA: bluebird bio 1800 OPERATION MANUAL( AUTOMATED BLOOD COUNTS AND DIFF.) APPENDIX B-3 Na 140 mmol/L 136-145 [facility] ([facility]) CHRONIC KIDNEY DISEASE STAGING PER [...] DIFF.) APPENDIX B-3 CA 8.8 mg/dL 8.6-10.2 [facility]) CHRONIC KIDNEY DISEASE STAGING PER [...] or Plasma 16 mmol/L [facility] ([facility]) CHRONIC KIDNEY DISEASE STAGING PER [...] 4.9 mmol/L 3.5-5.1 [facility] ([facility] [place]) CHRONIC KIDNEY DISEASE STAGING PER [...] mmol/L 98.0-107.0 [facility] ([facility]) CHRONIC KIDNEY DISEASE STAGING PER [...] HCT IS 5% LESS SOURCE FOR DATA: bluebird bio 1800 OPERATION MANUAL( AUTOMATED BLOOD COUNTS AND DIFF.) APPENDIX B-3 eGFR 39 # [facility] ( [facility]) CHRONIC KIDNEY DISEASE STAGING PER [...] HCT IS 5% LESS SOURCE FOR DATA: bluebird bio 1800 OPERATION MANUAL( AUTOMATED BLOOD COUNTS AND DIFF.) APPENDIX B-3 eGFR Non-Afr. [place] 34 # MED[facility] ([facility]) CHRONIC KIDNEY DISEASE STAGING PER [...] HCT IS 5% LESS SOURCE FOR DATA: bluebird bio 1800 OPERATION MANUAL( AUTOMATED BLOOD COUNTS AND DIFF.) APPENDIX B-3 RBC 3.50 10E6/uL 4.20-6.30 [facility] ([facility]) CHRONIC KIDNEY DISEASE STAGING PER [...] HCT IS 5% LESS SOURCE FOR DATA: bluebird bio 1800 OPERATION MANUAL( AUTOMATED BLOOD COUNTS AND DIFF.) APPENDIX B-3 WBC 10.6 10E3/uL 4.1-10.9 [facility] ([facility]) CHRONIC KIDNEY DISEASE STAGING PER [...] HCT IS 5% LESS SOURCE FOR DATA: Kenzei DYN 1800 OPERATION MANUAL( AUTOMATED BLOOD COUNTS AND DIFF.) APPENDIX B-3 HGB 10.2 g/dL 12.0-18.0 [facility] ([facility]) CHRONIC KIDNEY DISEASE STAGING PER [...] HCT IS 5% LESS SOURCE FOR DATA: bluebird bio 1800 OPERATION MANUAL( AUTOMATED BLOOD COUNTS AND DIFF.) APPENDIX B-3 HCT 31.5 % 37.0-51.0 [facility] ([facility]) CHRONIC KIDNEY [...] DIFF.) APPENDIX B-3 MCH 29.1 pg 26.0-32.0 [facility] [place] CHRONIC KIDNEY [...] HCT IS 5% LESS SOURCE FOR DATA: bluebird bio 1800 OPERATION MANUAL( AUTOMATED BLOOD COUNTS AND DIFF.) APPENDIX B-3 MCV 90.0 fL 80.0-97.0 [facility] ([facility] [place]) CHRONIC KIDNEY [...] IS 5% LESS SOURCE FOR DATA: TEDDY [employer] 1800 OPERATION MANUAL( AUTOMATED BLOOD COUNTS AND DIFF.) APPENDIX B-3 MCHC 32.4 g/dL 31.0-36.0 [facility] ([facility] [place]) CHRONIC [...] DIFF.) APPENDIX B-3 PLT 155 10E3/uL 140-440 [facility] ([facility]) CHRONIC KIDNEY DISEASE STAGING PER NKF: MALE [...] DIFF.) APPENDIX B-3 RDW-CV 19.1 % 11.5-14.5 [facility] ([facility]) CHRONIC KIDNEY DISEASE STAGING PER [...] HCT IS 5% LESS SOURCE FOR DATA: bluebird bio 1800 OPERATION MANUAL( AUTOMATED BLOOD COUNTS AND DIFF.) APPENDIX B-3 Lym% Laboratory test result 10.0-58.5 Abnormal (applies to non-numeric results) [facility] ([facility]) CHRONIC KIDNEY DISEASE STAGING PER [...] HCT IS 5% LESS SOURCE FOR DATA: bluebird bio 1800 OPERATION MANUAL( AUTOMATED BLOOD COUNTS AND DIFF.) APPENDIX B-3 Neut% Laboratory test result 37.0-92.0 Abnormal (applies to non-numeric results) [facility] ([facility]) CHRONIC KIDNEY DISEASE STAGING PER [...] HCT IS 5% LESS SOURCE FOR DATA: Kenzei DYN 1800 OPERATION MANUAL( AUTOMATED BLOOD COUNTS AND DIFF.) APPENDIX B-3 MXD% Laboratory test result 0.1-24.0 Abnormal (applies to non-numeric results) DAWNA ([facility]) CHRONIC KIDNEY DISEASE STAGING PER [...] HCT IS 5% LESS SOURCE FOR DATA: bluebird bio 1800 OPERATION MANUAL( AUTOMATED BLOOD COUNTS AND DIFF.) APPENDIX B-3 Lym# Laboratory test result 0.6-4.1 Abnormal (applies to non -numeric results) [facility] ([facility]) CHRONIC KIDNEY DISEASE STAGING PER [...] HCT IS 5% LESS SOURCE FOR DATA: bluebird bio 1800 OPERATION MANUAL( AUTOMATED BLOOD COUNTS AND DIFF.) APPENDIX B-3 Neutrophils [#/volume] in Semen by Manual count Laboratory test result 2.0-7.8 Abnormal (applies to non-numeric results) [facility] ([facility]) CHRONIC KIDNEY DISEASE STAGING PER [...] HCT IS 5% LESS SOURCE FOR DATA: Kenzei DYN 1800 OPERATION MANUAL( AUTOMATED BLOOD COUNTS AND DIFF.) APPENDIX B-3 Comment Laboratory test result [facility] ([facility]) CHRONIC KIDNEY DISEASE STAGING PER [...] IS 5% LESS SOURCE FOR DATA: T[employer]DY [employer] 1800 OPERATION MANUAL( AUTOMATED BLOOD COUNTS AND DIFF.) APPENDIX B-3 MXD# Laboratory test result 0.0-1.8 Abnormal (applies to non -numeric results) [facility] ([facility]) CHRONIC KIDNEY DISEASE STAGING PER [...] PLT Adult M 4.1-10.9 4.20-6.30 12.0-18.0 37.0-51.0 80- 140-440 Adult F 4.1-10.9 4.04-5.48 12.0-18.0 37.0-51.0 80- 140-440 0- 1 Yr 5.0-20.0 3.9-5.9 15-18 [...] Blood by Tracie 10.5 f L 9.0-13.0 [facility] ([facility]) CHRONIC KIDNEY DISEASE STAGING PER [...] DIFF.) APPENDIX B-3 ID Date Data Source [id number] 04/04/2019 09:23:00 AM EST [facility] ([facility]) Name Value Range Interpretation Code Description Data Pennie rce(s) Supporting Document(s) Magnesium Level 1.9 1.8-2.4 [facility] ([facility]io [facility]) ID Date Data Source [id number] 04/04/2019 09:23:00 AM EST [facility] ([facility]) Name Value Range Interpretation Code Description Data Pennie rce(s) Supporting Document(s) Glucose 112 70-100 [facility] ([facility]) Blood Urea Nitrogen 10 7-18 [facility] (Ca rdiology [facility]) Sodium 144 136-145 [facility] ([facility]) Creatinine 1.76 0.70-1.30 [facility] ([facility]) Potassium 4.0 3.5-5.1 [facility] ([facility]) Chloride 109 98-107 [facility] ([facility]) Calcium 7.9 8.8-10.2 [facility] ([facility]) Glomerular filtration rate/1.73 sq M.pre dicted [Volume Rate/Area] in Serum or Plasma by Creatinine-based formula (MDRD) 39.5 [facility] ([facility]) Carbon Dioxide 29 21-32 [facility] ([facility]iol [facility]) ID Date Data Source [id number] 04/04/2019 09:23:00 AM EST [facility] ([facility]) Name Value Range Interpretation Code Description Data Pennie rce(s) Supporting Document(s) White Blood Count 6.2 4.0-10.0 [facility] ([facility]) Platelets 102 150-450 [facility] ([facility]) Red Blood Count 3.07 4.30-6.10 [facility] ([facility]io [facility]) Hematocrit 28.2 [facility] ([facility]) Hemoglobin 8.6 [facility] ([facility]) ID Date Data Source [id number] 04/01/2019 09:45:00 AM EST [facility] ([facility]) Name Value Range Interpretation Code Description Data Pennie rce(s) Supporting Document(s) Magnesium Level 1.6 1.8-2.4 [facility] ([facility]io [facility]) ID Date Data Source [id number] 04/01/2019 09:45:00 AM EST [facility] ([facility]) Name Value Range Interpretation Code Description Data Pennie rce(s) Supporting Document(s) Glucose 90 83-110 [facility] ([facility]) Blood Urea Nitrogen 11 7-18 [facility] (Ca [facility]) Creatinine 1.40 0.6-1.0 [facility] ([facility]) Sodium 146 136-145 [facility] ([facility]) Potassium 3.7 3.5-5.1 [facility] ([facility]) Chloride 113 98-107 [facility] ([facility]) Calcium 7.0 8.8-10.2 [facility] ([facility]) Carbon Dioxide 27 21-32 [facility] ([facility]iol [facility]) Glomerular filtration rate/1.73 sq M.pre dicted [Volume Rate/Area] in Serum or Plasma by Creatinine-based formula (MDRD) 51.4 [facility] ([facility]) ID Date Data Source [id number] 03/31/2019 09:44:00 AM EST [facility] ([facility]) Name Value Range Interpretation Code Description Data Pennie rce(s) Supporting Document(s) Troponin Laboratory test result [facility] ([facility]) Thyroid Stimulating Hormone 1.850 ME DENT ([facility]) Lipoprotein lipase [Enzymatic activity/volume] in Serum or Plasma 195 [facility] ([facility]) ID Date Data Source [id number] 03/31/2019 09:44:00 AM EST [facility] ([facility]) Name Value Range Interpretation Code Description Data Pennie rce(s) Supporting Document(s) Creatine kinase [Enzymatic activity/volume] in Serum or Plasma 16 [facility] ([facility]) CPK-MB Laboratory test result [facility] ([facility]) ID Date Data Source [id number] 03/31/2019 09:34:00 AM EST [facility] ([facility]) Name Value Range Interpretation Code Description Data Pennie rce(s) Supporting Document(s) Troponin Laboratory test result [facility] ([facility]) ID Date Data Source [id number] 03/31/2019 09:34:00 AM EST [facility] ([facility]) Name Value Range Interpretation Code Description Data Pennie rce(s) Supporting Document(s) Creatine kinase [Enzymatic activity/volume] in Serum or Plasma 15 [facility] CPK-MB Laboratory test [facility] Procedure Social History Code Duration Value Status Description Data Source(s ) Smoking 12/13/2019 12:00:00 AM EDT Patient is a former smoker completed Patient is a former smoker [facility] ([facility]) Vital Signs ID Date Data Source UNK Name Value Range Interpretation Code Description Data Source(s) Body surface area Derived from formula 1.80 m2 1.80 m2 [facility] ([facility]) Body weight 66.906 kg 66.906 kg [facility] ([facility]) [place] body weight 154 [lb_av] 154 [lb_av] [facility] ([facility]) Body mass index (BMI) [Ratio] 22.4 kg/m2 22.4 k g/m2 [facility] ([facility]) Body weight 147.50 [lb_av] 147.50 [lb_av] [facility] ([facility]) Body height 68 [in_i] 68 [in_i] [facility] ([facility]) 5'8" Diastolic blood pressure 70 mm[Hg] 70 mm[Hg] [facility] ([facility]) Systolic blood pressure 128 mm[Hg] 128 mm[Hg] [facility] ([facility]) Oxygen saturation in Arterial blood by Pulse oximetry 94 % 94 % [facility] ([facility] Body mass index (BMI) [Ratio] 24.0 kg/m2 24.0 k g/m2 [facility] ([facility] [place] body weight 148 [lb_av] 148 [lb_av] [facility] ([facility] Body weight 153.00 [lb_av] 153.00 [lb_av] [facility] ([facility] Body height 67 [in_i] 67 [in_i] [facility] ([facility] 5'7" Respiratory rate 14 /min 14 /min [facility] ( [facility] Heart rate 70 /min 70 /min [facility] ([facility] Body temperature 98.4 [degF] 98.4 [degF] [facility] ([facility] Diastolic blood pressure 70 mm[Hg] 70 mm[Hg] [facility] ([facility] Systolic blood pressure 116 mm[Hg] 116 mm[Hg] M DANIEL[facility] ([facility] [place] body weight 148 [lb_av] 148 [lb_av] [facility] ([facility], ) Body mass index (BMI) [Ratio] 22.7 kg/m2 22.7 k g/m2 [facility] ([facility]) Body weight 145.00 [lb_av] 145.00 [lb_av] [facility] ([facility], ) Body height 67 [in_i] 67 [in_i] [facility] ([facility]) 5'7" Respiratory rate 12 /min 12 /min [facility] ( [facility]) [place] body weight 148 [lb_av] 148 [lb_av] [facility] ([facility], ) Body mass index (BMI) [Ratio] 21.3 kg/m2 21.3 k g/m2 [facility] ([facility]) Body weight 136.00 [lb_av] 136.00 [lb_av] [facility] ([facility], ) Body height 67 [in_i] 67 [in_i] [facility] ([facility], ) 5'7" Respiratory rate 12 /min 12 /min [facility] ( [facility], ) Oxygen saturation in Arterial blood by Pulse oximetry 94 % 94 % [facility] ([facility] Body mass index (BMI) [Ratio] 21.3 kg/m2 21.3 k g/m2 [facility] ([facility] [place] body weight 148 [lb_av] 148 [lb_av] [facility] ([facility] Body weight 136.00 [lb_av] 136.00 [lb_av] [facility] ([facility] Body height 67 [in_i] 67 [in_i] [facility] ([facility] 5'7" Respiratory rate 12 /min 12 /min [facility] ( [facility] Heart rate 70 /min 70 /min [facility] ([facility] Body temperature 97.5 [degF] 97.5 [degF] [facility] ([facility] Diastolic blood pressure 64 mm[Hg] 64 mm[Hg] [facility] ([facility] Systolic blood pressure 118 mm[Hg] 118 mm[Hg] M [facility] ([facility] Oxygen saturation in Arterial blood by Pulse oximetry 94 % 94 % [facility] ([facility], ) Body mass index (BMI) [Ratio] 21.3 kg/m2 21.3 k g/m2 [facility] ([facility], ) Body weight 136.00 [lb_av] 136.00 [lb_av] [facility] ([facility], ) Body height 67 [in_i] 67 [in_i] [facility] ([facility], ) Respiratory rate 12 /min 12 /min [facility] ( [facility], ) Body temperature 97.5 [degF] 97.5 [degF] [facility] ([facility], ) Heart rate 70 /min 70 /min [facility] ([facility], ) Diastolic blood pressure 64 mm[Hg] 64 mm[Hg] [facility] ([facility], ) Systolic blood pressure 118 mm[Hg] 118 mm[Hg] M [facility] ([facility], ) Body mass index (BMI) [Ratio] 20.3 kg/m2 20.3 k g/m2 [facility] ([facility] Heart rate 70 /min 70 /min [facility] ([facility] Diastolic blood pressure 59 mm[Hg] 59 mm[Hg] [facility] ([facility] Systolic blood pressure 122 mm[Hg] 122 mm[Hg] M [facility] ([facility] Body weight 126.00 [lb_av] 126.00 [lb_av] [facility] ([facility] Body height 66 [in_i] 66 [in_i] [facility] ([facility] 5'6" Body mass index (BMI) [Ratio] 21.3 kg/m2 21.3 k g/m2 [facility] ([facility]) Body height 67 [in_i] 67 [in_i] [facility] ([facility]) 5'7" Body weight 136.00 [lb_av] 136.00 [lb_av] [facility] ([facility]) Diastolic blood pressure 64 mm[Hg] 64 mm[Hg] [facility] ([facility]) sitting, regular cuff Systolic blood pressure 128 mm[Hg] 128 mm[Hg] M [facility] ([facility]) sitting, regular cuff Respiratory rate 16 /min 16 /min [facility] ( [facility]) Heart rate 68 /min 68 /min [facility] ([facility]) Regular Oxygen saturation in Arterial blood by Pulse oximetry 97 % 97 % [facility] ([facility] Body mass index (BMI) [Ratio] 19.7 kg/m2 19.7 k g/m2 [facility] ([facility] Body weight 126.00 [lb_av] 126.00 [lb_av] [facility] ([facility] Body height 67 [in_i] 67 [in_i] [facility] 5'7" Respiratory rate 16 /min 16 /min [facility] ( [facility] Heart rate 78 /min 78 /min [facility] ([facility] Body temperature 97.1 [degF] 97.1 [degF] [facility] ([facility] Diastolic blood pressure 48 mm[Hg] 48 mm[Hg] [facility] ([facility] Systolic blood pressure 98 mm[Hg] 98 mm[Hg] M [facility] ([facility] Oxygen saturation in Arterial blood by Pulse oximetry 96 % 96 % [facility] ([facility] Body mass index (BMI) [Ratio] 19.8 kg/m2 19.8 k g/m2 [facility] ([facility] Body weight 126.38 [lb_av] 126.38 [lb_av] [facility] ([facility] Body height 67 [in_i] 67 [in_i] [facility] ([facility] 5'7" Respiratory rate 16 /min 16 /min [facility] ( [facility] Heart rate 70 /min 70 /min [facility] ([facility] Body temperature 99.6 [degF] 99.6 [degF] [facility] ([facility] Diastolic blood pressure 66 mm[Hg] 66 mm[Hg] [facility] ([facility] Systolic blood pressure 110 mm[Hg] 110 mm[Hg] M [facility] ([facility] Oxygen saturation in Arterial blood by Pulse oximetry 96 % 96 % [facility] ([facility] (On O2 @ 2 LPM [place]) Body mass index (BMI) [Ratio] 19.8 kg/m2 19.8 k g/m2 [facility] ([facility] Body weight 126.50 [lb_av] 126.50 [lb_av] [facility] ([facility] Body height 67 [in_i] 67 [in_i] [facility] ([facility] 5'7" Respiratory rate [...] Body height 67 [in_i] 67 [in_i] [facility] ([facility] 5'7" Respiratory rate 18 [...] by Pulse oximetry 91 % 91 % [facility] ([facility] (On O2 @ 2 LPM [place]) Diastolic blood pressure 62 mm[Hg] 62 mm[Hg] [facility] ([facility] Systolic blood pressure 94 mm[Hg] 94 mm[Hg] M [facility] ([facility] Body mass index (BMI) [Ratio] 20.2 kg/m2 20.2 k g/m2 [facility] ([facility] Body weight 129.00 [lb_av] 129.00 [lb_av] [facility] ([facility] Body height 67 [in_i] 67 [in_i] [facility] ([facility] 5'7" Respiratory rate 12 /min 12 /min [facility] ( [facility] Heart rate 68 /min 68 /min [facility] ([facility] Body temperature 99.2 [degF] 99.2 [degF] [facility] ([facility] Diastolic blood pressure 62 mm[Hg] 62 mm[Hg] [facility] ([facility]) sitting Systolic blood pressure 126 mm[Hg] 126 mm[Hg] M [facility] ([facility]) sitting Diastolic blood pressure 62 mm[Hg] 62 mm[Hg] [facility] ([facility]) sitting, regular cuff Systolic blood pressure 130 mm[Hg] 130 mm[Hg] M [facility] ([facility]) sitting, regular cuff Respiratory rate 16 /min 16 /min [facility] ( [facility]) Body mass index (BMI) [Ratio] 21.0 kg/m2 21.0 k g/m2 [facility] ([facility]) Body height 67 [in_i] 67 [in_i] [facility] 5'7" Body weight 134.00 [lb_av] 134.00 [lb_av] [facility] ([facility]) Diastolic blood pressure 64 mm[Hg] 64 mm[Hg] [facility] ([facility]) sitting, regular cuff Systolic blood pressure 126 mm[Hg] 126 mm[Hg] M [facility] ([facility]) sitting, regular cuff Respiratory rate 16 /min 16 /min [facility] ( [facility]) Heart rate 72 /min 72 /min [facility] ([facility]) Regular Body mass index (BMI) [Ratio] 22.1 kg/m2 22.1 k g/m2 [facility] ([facility]) Body height 67 [in_i] 67 [in_i] [facility] 5'7" Body weight 141.00 [lb_av] 141.00 [lb_av] [facility] ([facility]) Diastolic blood pressure 68 mm[Hg] 68 mm[Hg] [facility] ([facility]) sitting, regular cuff Systolic blood pressure 110 mm[Hg] 110 mm[Hg] M [facility] ([facility]) sitting, regular cuff Respiratory rate 18 /min 18 /min [facility] ( [facility]) Heart rate 72 /min 72 /min [facility] ([facility]) Regular Body mass index (BMI) [Ratio] 22.2 kg/m2 22.2 k g/m2 [facility] ([facility]) Body height 67 [in_i] 67 [in_i] [facility] ([facility]) 5'7" Body weight 142.00 [lb_av] 142.00 [lb_av] [facility] ([facility]) Diastolic blood pressure 56 mm[Hg] 56 mm[Hg] [facility] ([facility]) Sitting, regular cuff Systolic blood pressure 108 mm[Hg] 108 mm[Hg] M [facility] ([facility]) Sitting, regular cuff Respiratory rate 16 /min 16 /min [facility] ( [facility]) Heart rate 76 /min 76 /min [facility] ([facility]) Regular Body mass index (BMI) [Ratio] 22.1 kg/m2 22.1 k g/m2 [facility] ([facility]) Body height 67 [in_i] 67 [in_i] [facility] 5'7" Body weight 141.00 [lb_av] 141.00 [lb_av] [facility] ([facility]) Diastolic blood pressure 62 mm[Hg] 62 mm[Hg] [facility] ([facility]) Sitting, regular cuff Systolic blood pressure 108 mm[Hg] 108 mm[Hg] M [facility] ([facility]) Sitting, regular cuff Respiratory rate 16 /min 16 /min [facility] ( [facility]) Heart rate 72 /min 72 /min [facility] ([facility]) Regular Body mass index (BMI) [Ratio] 21.9 kg/m2 21.9 k g/m2 [facility] ([facility]) Body height 67 [in_i] 67 [in_i] [facility] 5'7" Body weight 140.00 [lb_av] 140.00 [lb_av] [facility] ([facility])
[2020-05-19] MEDS ORDERED: LEVALBUTEROL HFA 45MCG/ACT 15 GM INHALER INH PRN (22:00)
[2020-05-19 22:54] VITALS: BP 129/80
[2020-05-19 23:30] VITALS: BP 130/70
[2020-05-19] MEDS: APIXABAN 2.5 MG TAB (ELIQUIS) PO SCH (23:30)
[2020-05-19] MEDS: levETIRAcetam 250MG TABLET (KEPPRA) PO SCH (23:30)
[2020-05-19] MEDS: predniSONE 2.5 MG TAB PO SCH (23:30)
[2020-05-19] MEDS: GABAPENTIN 100 MG CAP PO SCH (23:32)
[2020-05-19] MEDS: atenoloL 25 MG TAB PO SCH (23:35)
[2020-05-20] VITALS (7 sets, daily range): BP systolic 112–128; BP diastolic 61–68
[2020-05-20] MEDS: predniSONE 2.5 MG TAB PO SCH (00:03)
--- NOTE | 2020-05-20 00:38 | HPEPDOC ---
General Date of Admission May 19, 2020 at 10:50 Date of Service: May 19, 2020 Chief Complaint The patient is a 84-year-old male admitted with a reason for visit of PAD. Source: Patient History of Present Illness Mr. Javed is an 84-year-old male with atrial fibrillation and COPD who presents with inability to walk on the right foot secondary to pain. Previously, patient was being seen by vascular surgery for arterial evaluation of the left leg. Patient tells me that he's been having an ache in his left foot, but recently started to have pain in his right foot. He is able to walk with a walker yesterday. This morning, the pain was unbearable and he cannot walk on his right foot. He felt that it was like walking on marbles. He is able to wiggle his toes, but cannot feel me palpate his feet. Denies any fever, chills, or chest pain. He had occasional dyspnea and occasional abdominal pain. He came into the ED for evaluation. Vascular surgery was consulted. They took him down to the OR for angioplasty in concern for ischemia of the right lower extremity. He had severe disease and they weren't able to place a stent, but they're able to improve some of the blood flow. Vascular surgery recommended patient continue bed rest until midnight and in the morning see how the patient ambulates. Patient may need more vascular surgery depending on how he does in the morning. Patient will be observed overnight. Home Medications Scheduled Amiodarone HCl (Amiodarone HCl) 200 Mg Tablet, 200 MG PO DAILY, (Reported) Apixaban (Eliquis) 2.5 Mg Tab, 2.5 MG PO BID, (Reported) Atenolol (Atenolol) 25 Mg Tablet, 25 MG PO BID, (Reported) Budesonide/Formoterol (Symbicort 160-4.5 Mcg Inhaler) 6 Gm Hfa.aer.ad, 2 PUFF INH BID, (Reported) Calcium Carbonate/Vitamin D3 (Calcium 600 mg-Vit D3 10Mcg Tb) 600 Mg-400 Tablet, 1 TAB PO DAILY, (Reported) Diltiazem HCl (Diltiazem HCl) 120 Mg Tablet, 120 MG PO DAILY, (Reported) Ferrous Gluconate (Iron) 240 Mg Tablet, 240 MG PO DAILY, (Reported) Finasteride (Finasteride) 5 Mg Tab, 5 MG PO DAILY, (Reported) Gabapentin (Gabapentin) 100 Mg Capsule, 100 MG PO TID, (Reported) [place]-3 Fatty Acids/Fish Oil (Fish Oil 1,000 mg Capsule) 1 Each Capsule, 1 CAP PO DAILY, (Reported) Omeprazole (Omeprazole) 40 Mg Capsule.dr, 40 MG PO DAILY, (Reported) Paroxetine (Paroxetine HCl) 10 Mg Tablet, 10 MG PO DAILY, (Reported) Prednisone (Prednisone) 5 Mg Tab, 5 MG PO QAM, (Reported) Prednisone (Prednisone) 2.5 Mg Tablet, 2.5 MG PO QPM, (Reported) Ropinirole HCl (Ropinirole HCl) 0.25 Mg Tablet, 0.25 MG PO QHS, (Reported) Tamsulosin Hcl (Tamsulosin HCl) 0.4 Mg Capsule, 0.4 MG PO QHS, (Reported) Torsemide (Torsemide) 20 Mg Tablet, 40 MG PO DAILY, (Reported) levETIRAcetam (levETIRAcetam) 500 Mg Tablet, 500 MG PO BID, (Reported) Scheduled PRN Acetaminophen (Acetaminophen) 500 Mg Tablet, 1,000 MG PO Q8H PRN for PAIN, (Reported) TAKES WITH TRAMADOL PRN Levalbuterol Hydrochloride (Xopenex Hfa) 15 Gm Hfa.aer.ad, 2 PUFF INH Q6H PRN for SHORTNESS OF BREATH, (Reported) Tramadol HCl (Tramadol HCl) 50 Mg Tablet, 50 MG PO Q6H PRN for PAIN, (Reported) Allergies Coded Allergies: petrolatum,white (Verified Allergy, Mild, ITCH/RASH, 09/21/19) fluconazole (Verified Allergy, Unknown, UNKNOWN REACTION, 09/16/19) fluticasone (Verified Allergy, Unknown, UNKNOWN REACTION, 09/16/19) metformin (Verified Allergy, Unknown, UNKNOWN REACTION, 09/16/19) promethazine (Verified Adverse Reaction, Intermediate, Altered Mental Status , 09/21/19) azithromycin (Verified Adverse Reaction, Unknown, LOWERS BP, 09/16/19) clarithromycin (Verified Adverse Reaction, Unknown, LOWERS BP, 09/16/19) procaine (Verified Adverse Reaction, Unknown, DIZZINESS, 09/16/19) Past Medical History Medical History 1. Gastroenteritis 2. Coven 19 infection in July 2019 3. CKD stage III 4. Neuropathy 5. Atrial fibrillation 6. COPD chronically on 2 L 7. Gastroparesis 8. Insomnia 9. BPH 10. Restless leg syndrome 11. Bilateral renal cyst 12. 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 Hypertension 14. GERD 15. Hyperlipidemia Surgical History 1. 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 Watchman procedure 3. Atrial fibrillation status post cardiac ablation Family History Father: at 59, CT Mother: at 68, stomach cancer Social History * Smoker: former Smoker (smoked between 1953 to 1998) Alcohol: Denies Drugs: denies A-FIB/CHADSVASC A-FIB History Current/History of A-Fib/PAF?: Yes Current PO Anticoag Therapy: Yes Review of Systems Constitutional: Denies: Chills, Fever Eyes: Reports: Other (cannot see well due to cataracts) ENT: Denies: Sore Throat Skin: Denies: Rash Pulmonary: Reports: Dyspnea (occasionally) Cardiovascular: Denies: Chest Pain Gastrointestinal: Reports: Abdominal Pain (occasionally), Constipation; Denies: Nausea Genitourinary: Denies: Dysuria Hematologic: Reports: Bruising Musculoskeletal: Reports: Foot Pain Psych: Reports: Anxiety; Denies: Depression Physical Examination General Exam: Positive: Alert, Cooperative Eye Exam: Positive: EOMI; Negative: Sclera icteric ENT Exam: Positive: Atraumatic Neck Exam: Positive: Supple Chest Exam: Positive: Clear to auscultation; Negative: Rales, Rhonchi, Wheezing Heart Exam: Positive: Rate Normal, Regular Rhythm Abdomen Exam: Positive: Normal bowel sounds, Soft, Tenderness (mild) Extremity Exam: Negative: Edema Neuro Exam: Positive: Cranial Nerves 3-12 NL Psych Exam: Positive: Mental status NL, Mood NL Vital Signs Vital Signs Date Time Temp Pulse Resp B/P (MAP) Pulse Ox O2 Delivery O2 Flow Rate FiO2 05/19/20 23:35 71 130/70 05/19/20 21:40 18 99 Nasal Cannula 2.0 05/19/20 16:33 97.6 Laboratory Data Labs 24H Laboratory Tests 2 05/19/20 11:09: POC Glucose (Misc Panel) 177H, POC Sodium (Misc Panel) 144, POC Potassium (Misc Panel) 3.1L, POC Chloride (Misc Panel) 91L, POC Total CO2 (Misc Panel) 41.0H, POC Blood Urea Nitrogen (Misc Panel 20, POC Ionized Calcium (Misc Panel) 4.3L, POC Creatinine (Misc Panel) 1.3, POC Hematocrit (Misc Panel) 32.0L 05/19/20 11:11: Immature Granulocyte % (Auto) , Neutrophils (%) (Auto) , Nucleated Red Blood Cells % (auto) 0.0, Neutrophils 71H, Band Neutrophils 6, Lymphocytes (Manual) 11L, Monocytes (Manual) 10H, Atypical Lymphocytes 2, Hypochromasia 1+, Anisocytosis 2+, Macrocytosis 1+, Platelet Estimate NORMAL, Urine Color STRAW, Urine Appearance CLEAR, Urine pH 7.0, Urine Specific [place] 1.005, Urine Protein NEGATIVE, Urine Glucose (UA) NEGATIVE, Urine Ketones NEGATIVE, Urine Blood NEGATIVE, Urine Nitrite NEGATIVE, Urine Bilirubin NEGATIVE, Urine Urobilinogen 0.2, Urine Leukocyte Esterase NEGATIVE, Urine WBC (Auto) 0, Urine RBC (Auto) 0, Urine Hyaline Casts (Auto) 0, Urine Bacteria (Auto) NEGATIVE, Urine Squamous Epithelial Cells 0, Urine Sperm (Auto) , Blood Gas Bicarbonate Standard 36.9, Venous Blood pH 7.422, Venous Blood Partial Pressure CO2 62.6H, Venous Blood Partial Pressure O2 237.6H, Venous Blood Total Carbon Dioxide 41.8H, Venous Blood HCO3 39.9H, Venous Blood Oxygen Saturation 99.1H, Venous Blood Base Excess 13.1H, Lactic Acid Level 2.2*H, Total Bilirubin 0.4, Direct Bilirubin 0.1, Aspartate Amino Transf (AST/SGOT) 14, Alanine Aminotransferase (ALT/SGPT) 15, Alkaline Phosphatase 92, Ammonia 22, Total Protein 5.5L, Albumin 2.7L, Albumin/Globulin Ratio 1.0, Thyroid Stimulating Hormone (TSH) 1.340 05/19/20 11:18: POC Beta HCG, Quantitative < 5.0 05/19/20 19:48: Lactic Acid Followup at 4 Hours 1.2 CBC/BMP Laboratory Tests 05/19/20 11:11 Microbiology Microbiology 05/19/20 Respiratory Virus Panel (PCR) (PEG) - Final, Complete 05/19/20 Blood Culture, Received Pending 05/19/20 Blood Culture, Received Pending Assessment/Plan Mr. Javed is an 84-year-old male with atrial fibrillation and COPD who pre sents with inability to walk on the right foot secondary to pain. He has severe arterial disease. Vascular surgery is following and tried angioplasty. Vascular surgery was able to improve blood flow but was not able to place a stent. Recommended monitoring overnight and see how he does in the morning. Plan / VTE VTE Prophylaxis Ordered?: Yes Plan Plan 1. Severe right peripheral arterial disease Vascular surgery following recommendations appreciated Continue apixaban Add aspirin and atorvastatin 2. Atrial fibrillation status post ablation Continue amiodarone, atenolol, and diltiazem Continue apixaban 3. COPD Not in exacerbation Continue inhalers 4. BPH Continue tamsulosin 5. Chronic pain Continue gabapentin 6 DVT prophylaxis On apixaban CHRISTOPHER LEE DO May 20, 2020 00:38
[2020-05-20] MEDS: traMADol 50 MG TAB PO PRN ×2 (01:51→10:12)
[2020-05-20 06:06] LABS: HEMATOCRIT 30.2 % (42.0-52.0); HEMOGLOBIN 9.4 g/dl (13.5-17.5); MEAN CORPUSCULAR HEMOGLOBIN 27.9 pg (27.0-33.0); MEAN CORPUSCULAR HGB CONC 31.1 g/dl (32.0-36.5); MEAN CORPUSCULAR VOLUME 89.6 fl (80.0-96.0); PLATELET COUNT, AUTOMATED 168 10^3/uL (150-450); RED BLOOD COUNT 3.37 10^6/uL (4.30-6.10); WHITE BLOOD COUNT 10.5 10^3/uL (4.0-10.0)
[2020-05-20 06:25] LABS: CALCIUM LEVEL 7.6 MG/DL (8.8-10.2); CREATININE FOR GFR 1.31 MG/DL (0.70-1.30); GLOMERULAR FILTRATION RATE 55.4 (>35); POTASSIUM SERUM 3.3 MEQ/L (3.5-5.1)
[2020-05-20] MEDS: SYMBICORT 160/4.5MCG INHALER 6GM INH SCH (07:28)
[2020-05-20] MEDS ORDERED: TORSEMIDE 20 MG TAB PO SCH (09:00)
[2020-05-20] MEDS ORDERED: PARoxetine 10MG TABLET PO SCH (09:00)
[2020-05-20] MEDS ORDERED: predniSONE 5 MG TAB PO SCH (09:00)
[2020-05-20] MEDS ORDERED: OMEPRAZOLE 20 MG CAP PO SCH (09:00)
[2020-05-20] MEDS ORDERED: ATORVASTATIN 20 MG TAB PO SCH (09:00)
[2020-05-20] MEDS ORDERED: FINASTERIDE 5 MG TAB PO SCH (09:00)
[2020-05-20] MEDS ORDERED: AMIODARONE 200 MG TAB (PACERONE) PO SCH (09:00)
[2020-05-20] MEDS ORDERED: ASPIRIN 81 MG ENTERIC TAB PO SCH (09:00)
[2020-05-20] MEDS: levETIRAcetam 250MG TABLET (KEPPRA) PO SCH (09:57)
[2020-05-20] MEDS: GABAPENTIN 100 MG CAP PO SCH (09:58)
[2020-05-20] MEDS: APIXABAN 2.5 MG TAB (ELIQUIS) PO SCH (09:59)
[2020-05-20] MEDS: atenoloL 25 MG TAB PO SCH (09:59)
[2020-05-20] MEDS ORDERED: POTASSIUM CHLORIDE 10 MEQ SR TABLET PO ONE (11:00)
--- NOTE | 2020-05-20 12:14 | IPNPDOC ---
Date Seen The patient was seen on 05/20/20. Progress Note Patient seen and examined postoperative day one status post right lower extremity iliac, common femoral artery, SFA, tibial angioplasty for worsening ischemia with extreme end-stage chronic peripheral vascular disease. At this point, unfortunately, due to the severe heavily calcified nature of the patient's plaque, his advanced age, and limited distal microvascular runoff at the foot, I do not feel aggressive further revascularization is going to be helpful. We did provide luminal flow from the aorta to the distal tibials, but could not cross the heavy calcified disease in the distal tibials to provide better outflow to the foot. The disease is too heavy and chronic. This is about as much blood flow is we can give him. The foot is viable. He says his pain is better. It is certainly not great, but it is the best we can offer. I discussed with the patient and his daughter that if the disease progresses, we can certainly try angioplasty again, but he is at risk for right lower extremity amputation if acute decompensation occurs. Hopefully, what we have provided him to prevent this at least for a while. As far as the left lower extremity, the patient was not scheduled for his arterial duplex until May. Because of the severe nature of the right lower extremity and because we have a CTA, I will see if we can possibly add him on the schedule for a left lower extremity and August to expedite his care since he has a wound on that foot. For now, the patient says he was able to stand at the bedside with physical therapy and was able to march back and forth on both feet and did not feel any weakness in the right leg. He says at home he has a walker and a commode and lots of help. He would like to go home. I asked the nurse to try to actually walk him and see if he can bear weight and walk. At home prior to the last day and a half, he was ambulatory. We'd like to see that he is back to that state. If he is, it is okay from a vascular standpoint for the patient to be discharged. His creatinine is stable today at 1.3, GFR 55, so the perioperative hydration and minimal contrast use was successful for preventing MANUELA. We appreciate the hospitalist starting aspirin and statin in addition to the patient's eliquis. We will discuss this with the hospitalist team. We appreciate the opportunity to participate in the care of this patient. VS, I&O, 24H, Fishbone Vital Signs/I&O Vital Signs Date Time Temp Pulse Resp B/P (MAP) Pulse Ox O2 Delivery O2 Flow Rate FiO2 05/20/20 10:12 18 05/20/20 10:01 71 116/61 05/20/20 10:00 95 Nasal Cannula 1.0 05/20/20 06:00 97.6 I&O- Last 24 Hours up to 6 AM 05/20/20 06:00 Intake Total 850 ml Output Total 1100 ml Balance -250 ml Laboratory Data 24H LABS Laboratory Tests 2 05/19/20 19:48: Lactic Acid Followup at 4 Hours 1.2 05/20/20 05:38: Anion Gap 7L, Glomerular Filtration Rate 55.4, Calcium Level 7.6L 05/20/20 05:39: Nucleated Red Blood Cells % (auto) 0.0 CBC/BMP Laboratory Tests 05/20/20 05:38 05/20/20 05:39 Microbiology Microbiology 05/19/20 Respiratory Virus Panel (PCR) (PEG) - Final, Complete 05/19/20 Blood Culture, Received Pending 05/19/20 Blood Culture, Received Pending ELOINA MIJARES MD May 20, 2020 12:14
[2020-05-20] MEDS ORDERED: ATOR1TAB21 PO (12:25)
[2020-05-20] MEDS ORDERED: ASPI81TAEC PO (12:25)
--- NOTE | 2020-05-20 20:42 | ECGEPIP ---
[facility] - ED Test Date: 2020-05-19 Pat Name: MARCY LEE Department: Room: - Gender: Male Director Of Respiratory Therapy: : 1935 Requested By: Estrellita Durand Order Number: [id number] Reading MD: Estrellita Durand Measurements Intervals [place] Rate: 70 P: TN: 372 QRS: -23 QRSD: 86 T: 53 QT: 430 QTc: 464 Interpretive Statements Atrial-paced rhythm with prolonged AV conduction similar 01/17/20 Electronically Signed on 05-20-2020 20:42:28 EST by Estrellita Durand
--- NOTE | 2020-05-21 13:58 | DS.PDOC ---
Discharge Summary General Date of Admission May 19, 2020 at 10:50 Date of Discharge 05/21/20 Discharge Summary DISCHARGE DIAGNOSES: status post right lower extremity iliac, common femoral artery, SFA, tibial angioplasty for worsening ischemia with extreme end-stage chronic peripheral vascular disease. , Chronic Atrial fibrillation COPD, compensated Chronic hypoxic respiratory failure. 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 Hyperlipidemia DISCHARGE MEDICATIONS: See below DISCHARGE INSTRUCTIONS: Walk with a walker as needed pain medications. Immediate follow-up with primary care physician within 5 days of discharge and vascular surgery, Dr. Jesus is recommended PROGRAM ADVISOR: VASCULAR SURGERY, DR. JESUS Procedures during admission: postoperative day one status post right lower extremity iliac, common femoral artery, SFA, tibial angioplasty for worsening ischemia with extreme end-stage chronic peripheral vascular disease. HISTOR OF PRESENT ILLNESS: Mr. Javed is an 84-year-old male with atrial fibrillation and COPD who presents with inability to walk on the right foot secondary to pain. Previously, patient was being seen by vascular surgery for arterial evaluation of the left leg. Patient tells me that he's been having an ache in his left foot, but recently started to have pain in his right foot. He is able to walk with a walker yesterday. This morning, the pain was unbearable and he cannot walk on his right foot. He felt that it was like walking on marbles. He is able to wiggle his toes, but cannot feel me palpate his feet. Denies any fever, chills, or chest pain. He had occasional dyspnea and occasional abdominal pain. He came into the ED for evaluation. Vascular surgery was consulted. They took him down to the OR for angioplasty in concern for ischemia of the right lower extremity. He had severe disease and they weren't able to place a stent, but they're able to improve some of the blood flow. Vascular surgery recommended patient continue bed rest until midnight and in the morning see how the patient ambulates. Patient may need more vascular surgery depending on how he does in the morning. Patient will be observed overnight. HOSPITAL COURSE: Patient was admitted overnight for observation and was controlled with Percocet every 4 hourly as needed. He has a home safety evaluation and was seen by vascular surgery who recommended discharge home and follow up at the vascular clinic to schedule the left lower extremity revascularization. Patient was discharged home with home care in stable condition. Vascular surgery explained to the patient that his pain is most likely due to peripheral arterial disease as well as neuropathy. He will continue to have pain and should take PRN pain meds and walk with a walker with fall precautions. DISCHARGE PHYSICAL EXAMINATION: Vital signs see below General Exam: Positive: Alert, Cooperative Eye Exam: Positive: EOMI; Negative: Sclera icteric ENT Exam: Positive: Atraumatic Neck Exam: Positive: Supple Chest Exam: Positive: Clear to auscultation; Negative: Rales, Rhonchi, Wheezing Heart Exam: Positive: Rate Normal, Regular Rhythm Abdomen Exam: Positive: Normal bowel sounds, Soft, Tenderness (mild) Extremity Exam: no cyanosis, no clubbing, no peripheral edema. 2+ pulses bilateral posterior tibialis and dorsalis pedis palpable Neuro Exam: Positive: Cranial Nerves 3-12 NL Psych Exam: Positive: Mental status NL, Mood NL DATE OF PROCEDURE: 05/19/20 PREPROCEDURE DIAGNOSES: Atherosclerosis in the [place] arteries with concern for acute on chronic ischemia right lower extremity POSTPROCEDURE DIAGNOSES: Same PROCEDURE: 1. Ultrasound-guided access left common femoral artery 2. Aortoiliofemoral arteriogram 3. Selection right common femoral and superficial femoral artery with right lower extremity runoff 4. Selection left distal posterior tibial artery with runoff 5. Angioplasty left common iliac artery, external iliac artery with 7 x 100 [place] balloon 6. Angioplasty right common iliac artery, external iliac artery, common femoral artery with 7 x 100 [place] balloon 7. Angioplasty right superficial femoral artery and proximal popliteal artery with 5 x 206 x 200 [place] balloons 8. Angioplasty right anterior tibial artery and posterior tibial artery with 2 x 220 [place] balloon 9. Completion arteriograms 10. Mynx closure left common femoral artery DISCHARGE LABS: SEE BELOW Time spent on discharge 30 minutes Vital Signs/I&Os Vital Signs Date Time Temp Pulse Resp B/P (MAP) Pulse Ox O2 Delivery O2 Flow Rate FiO2 05/20/20 10:42 18 05/20/20 10:01 71 116/61 05/20/20 10:00 95 Nasal Cannula 1.0 05/20/20 06:00 97.6 I&O- Last 24 Hours up to 6 AM 05/21/20 06:00 Intake Total 650 ml Output Total 650 ml Balance 0 ml Microbiology Microbiology 05/19/20 Respiratory Virus Panel (PCR) (PEG) - Final, Complete 05/19/20 Blood Culture - Preliminary, Resulted No Growth after 48 hours. All Specime... 05/19/20 Blood Culture - Preliminary, Resulted No Growth after 48 hours. All Specime... Discharge Medications Scheduled Amiodarone HCl (Amiodarone HCl) 200 Mg Tablet, 200 MG PO DAILY, (Reported) Apixaban (Eliquis) 2.5 Mg Tab, 2.5 MG PO BID, (Reported) Aspirin (Aspirin EC) 81 Mg Tablet.dr, 81 MG PO DAILY Atenolol (Atenolol) 25 Mg Tablet, 25 MG PO BID, (Reported) Atorvastatin Calcium (Atorvastatin Calcium) 20 Mg Tablet, 40 MG PO DAILY Budesonide/Formoterol (Symbicort 160-4.5 Mcg Inhaler) 6 Gm Hfa.aer.ad, 2 PUFF INH BID, (Reported) Calcium Carbonate/Vitamin D3 (Calcium 600 mg-Vit D3 10Mcg Tb) 600 Mg-400 Tablet, 1 TAB PO DAILY, (Reported) Diltiazem HCl (Diltiazem HCl) 120 Mg Tablet, 120 MG PO DAILY, (Reported) Ferrous Gluconate (Iron) 240 Mg Tablet, 240 MG PO DAILY, (Reported) Finasteride (Finasteride) 5 Mg Tab, 5 MG PO DAILY, (Reported) Gabapentin (Gabapentin) 100 Mg Capsule, 100 MG PO TID, (Reported) [place]-3 Fatty Acids/Fish Oil (Fish Oil 1,000 mg Capsule) 1 Each Capsule, 1 CAP PO DAILY, (Reported) Omeprazole (Omeprazole) 40 Mg Capsule.dr, 40 MG PO DAILY, (Reported) Paroxetine (Paroxetine HCl) 10 Mg Tablet, 10 MG PO DAILY, (Reported) Prednisone (Prednisone) 5 Mg Tab, 5 MG PO QAM, (Reported) Prednisone (Prednisone) 2.5 Mg Tablet, 2.5 MG PO QPM, (Reported) Ropinirole HCl (Ropinirole HCl) 0.25 Mg Tablet, 0.25 MG PO QHS, (Reported) Tamsulosin Hcl (Tamsulosin HCl) 0.4 Mg Capsule, 0.4 MG PO QHS, (Reported) Torsemide (Torsemide) 20 Mg Tablet, 40 MG PO DAILY, (Reported) levETIRAcetam (levETIRAcetam) 500 Mg Tablet, 500 MG PO BID, (Reported) Scheduled PRN Acetaminophen (Acetaminophen) 500 Mg Tablet, 1,000 MG PO Q8H PRN for PAIN, (Reported) TAKES WITH TRAMADOL PRN Levalbuterol Hydrochloride (Xopenex Hfa) 15 Gm Hfa.aer.ad, 2 PUFF INH Q6H PRN for SHORTNESS OF BREATH, (Reported) Tramadol HCl (Tramadol HCl) 50 Mg Tablet, 50 MG PO Q6H PRN for PAIN, (Reported) Allergies Coded Allergies: petrolatum,white (Verified Allergy, Mild, ITCH/RASH, 09/21/19) fluconazole (Verified Allergy, Unknown, UNKNOWN REACTION, 09/16/19) fluticasone (Verified Allergy, Unknown, UNKNOWN REACTION, 09/16/19) metformin (Verified Allergy, Unknown, UNKNOWN REACTION, 09/16/19) promethazine (Verified Adverse Reaction, Intermediate, Altered Mental Sta tus , 09/21/19) azithromycin (Verified Adverse Reaction, Unknown, LOWERS BP, 09/16/19) clarithromycin (Verified Adverse Reaction, Unknown, LOWERS BP, 09/16/19) procaine (Verified Adverse Reaction, Unknown, DIZZINESS, 09/16/19) YUNI BILLINGS MD May 21, 2020 13:50
[2020-05-21] MEDS ORDERED: ASPI81TA26 PO (17:42)
[2020-05-21] MEDS ORDERED: ATOR40TA75 PO (17:42)
== END 2020-05-20 14:41 | disposition home or self-care (01) ==
LOC: M ED 10:49 → EDBD 10:49 → M ED INP 10:50 → M MSPAV 22:54
PROVIDERS: ADMIT Internal Medicine; ATTEND General Practice
DX: I73.9 Peripheral vascular disease, unspecified (principal)

== ENCOUNTER 2020-05-21 11:08 | Inpatient (IN) | payer MEDICARE ==
[~2020-05-21] VITALS: Ht 170.2 cm; Wt 66.8 kg
[~2020-05-21 11:08] MED LIST changes: +ASPI-569 PO; +ATOR1TAB21 PO; +CALC-356 PO; +FISH1000 PO; +IRON240T PO; +LEVE500T5 PO; +PARO5TAB PO; -PEG1POW PO; -PEGPOW PO; +POLY17PO18 PO; +POLY510P14 PO; +iron PO
--- OUTSIDE RECORDS SUMMARY | 2020-05-21 12:19 | CCD | Continuity of Care Document ---
Author Author Pete MONAE M.D. Organization Unknown Address [address] [place], [place] [address] Phone [phone] Care Team Providers Care Air Cargo Specialist Supervisor Name Role Phone [facility] [phone] Problems Active Problems Provider Date Polymyalgia rheumatica [...] Tablet By Mouth AT Bedtime 90tabs Mack oMnae M. D. 12/24/2019 Tamsulosin HCL 0.4mg Capsules [...] 1 by mouth three times a day 90Mack Pardo M.D. Paroxetine HCL 10mg Tablets 1 by mouth every day 90taMack Davies M.D. Keppra 500mg Tablets 1 by mouth twice a day 180taMack Davies M.D. Symbicort 160-4.5mcg/Act Aerosol inhale two puffs by mouth twice a day 10.200gm Mack Monae M.D. Xopenex HFA 45mcg/Act Aerosol inhale two puffs by mouth every 4 hours as needed 15gm Mack Monae M.D. Prednisone 2.5mg Tablets 1 by mouth every night at bedtime 30tabs Mack Monae M.D. Ferrous Sulfate 325mg Tablets 1 by mouth every day Unknown Diltiazem HCL ER 120mg Caps ER 12H R 1 by mouth every day Unknown Amiodarone HCL 200mg Tablets 1 by mouth every day 30tabs Mack Monae M.D. Atenolol 25mg Tablets 1 by mo uth bid Unknown Eliquis 2.5mg Tablets Take One Tablet By Mouth Twice A Day 60taMack Davies M.D. Finasteride 5mg Tablets Take One Tablet By Mouth Every Day 90taMack Davies M.D. 00/00/00 00 Immunizations CPT Code Status Date Vaccine Lot # [id number] Given 11/26/2019 Influenza Virus Vaccine, Quadrivalent, Slit Virus, Im Use 3Y & Up [id number] 98142 Given 02/06/2018 Influenza Virus Vaccine, Quadrivalent, Slit Virus, Im Use 3Y & Up [id number] 32143 Given 02/04/2017 Influenza Virus Vaccine, Quadrivalent, Slit Virus, Im Use 3Y & Up [id number] 89361 Given 01/12/2016 Influenza Virus Vaccine, Quadrivalent, Slit Virus, Im Use 3Y & Up [id number] 36060 Given 03/29/2015 Influenza Vaccin e (Fluzone) 3Yrs Of Age Or Older Medicare Plans [id number] 93094 Given 01/18/2013 Influenza Vaccin e (Fluzone) 3Yrs Of Age Or Older Medicare Plans 38583 Given 01/18/2013 Influenza Virus Vac. Split Virus Individuals 3 Years And Above [id number] Vital Signs Date Vital Result Comment 04/25/2020 2:25pm BP Systolic 116 mmHg BP Diastolic 70 mmHg Body Temperature 98.4 F Heart Rate 70 /min Respiratory Rate 14 /min Height 67 inches 5'7" Weight 153.00 lb [place] Body Weight 148 lb BMI (Body Mass Index) 24.0 kg/m2 O2 % BldC Oximetry 94 % 12/24/2019 3:06pm BP Systolic 118 mmHg BP Diastolic 64 mmHg Body Temperature 97.5 F Heart Rate 70 /min Respiratory Rate 12 /min Height 67 inches 5'7" Weight 136.00 lb [place] Body Weight 148 lb BMI (Body Mass Index) 21.3 kg/m2 O2 % BldC Oximetry 94 % Results Test Acquired Date Facility Test Result H/L Range Note Laboratory test finding 05/19/2020 [facility] (Interface) [phone] iSTAT B-hCG < 5.0 Normal 1 Venous Blood Gas 05/19/2020 [facility] (I nterface) [phone] Venous PH 7.422 units Normal 7.330-7.430 Venous Partial Pressure Co2 62.6 mmHg High 38.0-50.0 Venous Partial Pressure O2 237.6 mmHg High 30.0-50.0 Venous Total Co2 41.8 mEq/L High 24.0-28.0 Venous Hco3 39.9 mEq/L High 23.0-27.0 Venous Base Excess 13.1 High -2.0-2.0 Venous Standard Hco3 36.9 mEq/L Normal Venous O2 Saturation 99.1 % High 60.0-80.0 Ua W/ Reflex To Culture 05/19/2020 [facility] (Interface) [phone] Appearance, Urine RFX CLEAR Normal Clear Color, Urine RFX STRAW Normal Yellow PH,Urine RFX 7.0 units Normal 5.0-9.0 Specific [place] Ur Auto RFX 1.005 Normal 1.002-1.035 Protein, Urine Auto RFX NEGATIVE [...] NEGATIVE Normal Negative WBC, Urine Auto RFX 0 /HPF Normal 0-3 RBC, Urine Auto RFX 0 /HPF Normal 0-3 Bacteria, Urine Auto RFX NEGATIVE Normal Negative Squam Epithelial Cell Ur Aurfx 0 /HPF Normal 0-6 Hyaline Cast, Urine Auto RFX 0 /LPF Normal 0-1 Laboratory test finding 05/19/2020 [facility] (Interface) [phone] Ammonia 22 uMOL/L Normal <32 Liver Profile 05/19/2020 [facility] ([facility]) [phone] Ast/Sgot 14 U/L Normal 7-37 Alt/SGPT 15 U/L Normal 12-78 Alkaline Phosphatase 92 U/L Normal 45-117 Bilirubin,Total 0.4 mg/dL Normal 0.2-1.0 Bilirubin,Direct 0.1 mg/dL Normal 0.0-0.2 Total Protein 5.5 GM/DL Low 6.4-8.2 Albumin 2.7 GM/DL Low 3.2-5.2 Albumin/Globulin Ratio 1.0 Normal Laboratory test finding 05/19/2020 [facility] (Interface) [phone] Thyroid Stimulating Hormone 1.340 uIU/ML Normal 0. 358-3.740 Istat Chem8+ Panel 05/19/2020 [facility] ([facility]) [phone] iSTAT HCT 32.0 % Low 38.0-51.0 iSTAT Glucose 177 mg/dL High 70-105 iSTAT Sodium 144 mEq/L Normal 136-145 iSTAT Potassium 3.1 mEq/L Low 3.5-5.1 iSTAT CA++ 4.3 mg/dL Low 4.5-5.3 iSTAT Chloride 91 mEq/L Low 98-109 iSTAT Co2 41.0 MM/L High 23.0-27.0 iSTAT BUN 20 mg/dL Normal 8-26 iSTAT Creatinine 1.3 mg/dL Normal 0.6-1.3 CBC With Differential/Platelet 05/05/2020 [facility] N E WBC 12.6 x10E3/uL High 3.4-10.8 2 RBC 4.00 x10E6/uL Low 4.14-5.80 Hemoglobin 11.5 g/dL Low 13.0-17.7 Hematocrit 35.9 % Low 37.5-51.0 MCV 90 fL 79-97 MCH 28.8 pg 26.6-33.0 MCHC 32.0 g/dL 31.5-35.7 RDW 18.1 % High 11.6-15.4 Platelets 179 x10E3/uL 150-450 3 Neutrophils 68 % Not Estab. Lymphs 8 [...] (Abs) TNP NRBC TNP Hematology Comments: Note: 4 Bands TNP Metamyelocytes 4 % High 0 - 0 Myelocytes 5 % High 0 - 0 Promyelocytes TNP Blasts/blast like cells TNP Megakaryocytes TNP Other, Lineage Uncertain TNP Laboratory test finding 04/25/2020 [facility] [place] Magnesium 1.7 mg/dL 1.6-2.3 CBC With Differential/Platelet 04/25/2020 [facility] N E WBC 12.3 x10E3/uL High 3.4-10.8 RBC 4.03 x10E6/uL Low 4.14-5.80 5 Hemoglobin 11.8 g/dL Low 13.0-17.7 Hematocrit 36.0 [...] (Abs) TNP NRBC TNP Hematology Comments: Note: 6 Bands TNP Metamyelocytes 1 % High 0 [...] 1.270 uIU/mL 0.450-4.500 Laboratory test finding 01/17/2020 [facility] (Interface) [phone] Platelet Estimate NORMAL Normal Normal Differential 01/17/2020 [facility] [phone] Neutrophils 83 % High 28-66 Bands 1 % Normal < 11 Lymphocytes 5 % Low 16-44 Monocytes 7 % High 0-5 Myelocytes 3 % High 0-0 Atypical Lymph 1 % Normal 0-5 Anisocytosis 2+ Normal CBC With Differential 01/17/2020 [facility] (Interface) [phone] White Blood Count 13.4 10 High 4.0-10.0 [...] % Normal 0-0 Laboratory test finding 01/17/2020 [facility] (Interface) [phone] Osmolality Serum 292 MOSM/KG Normal 280-301 Thyroid Stimulating Hormone 0.928 uIU/ML Normal 0.358-3.740 Basic Metabolic Profile 01/17/2020 [facility] (Interface) [phone] Glucose, Fasting 114 mg/dL High 70-100 Blood Urea Nitrogen 18 mg/dL Normal 7-18 Creatinine For GFR 1.00 mg/dL Normal 0.70-1.30 Glomerular Filtration Rate > 60.0 Normal >35 7 Sodium Level 142 mEq/L Normal 136-145 Potassium Serum 4.3 mEq/L Normal 3.5-5.1 Chloride Level 107 mEq/L Normal 98-107 Carbon Dioxide Level 31 mEq/L Normal 21-32 Anion Gap 4 mEq/L Low 8-16 Calcium Level 8.7 mg/dL Low 8.8-10.2 Liver Profile 01/17/2020 [facility] (I nterface) [phone] Ast/Sgot 14 U/L Normal 7-37 Alt/SGPT 17 U/L Normal 12-78 Alkaline Phosphatase 70 U/L Normal 45-117 Bilirubin,Total 0.6 mg/dL Normal 0.2-1.0 Bilirubin,Direct 0.2 mg/dL Normal 0.0-0.2 Total Protein 5.4 GM/DL Low 6.4-8.2 Albumin 2.5 GM/DL Low 3.2-5.2 Albumin/Globulin Ratio 0.9 Normal Cardiac Marker Panel 01/17/2020 [facility] ( Interface) [phone] CPK Creatine Phosphokinase 24 U/L Low 39-30 8 CK-MB Value Mass 1.5 NG/ML Normal <3.6 MB/CK Relative Index 6.25 High < Or =4 8 Troponin I < 0.02 NG/ML Normal < 0.10 9 Laboratory test finding 01/17/2020 [facility] (Interface) [phone] Lactic Acid Sepsis Protocol 0.9 mmol/L Normal 0.4- 2.0 10 Ua W/ Reflex To Culture 01/17/2020 [facility] (Interface) [phone] Appearance, Urine RFX CLEAR Normal Clear Color, Urine RFX YELLOW Normal Yellow PH,Urine RFX 6.0 units Normal 5.0-9.0 Specific [place] Ur Auto RFX 1.015 Normal 1.002-1.035 Protein, [...] (Abs) TNP NRBC TNP Hematology Comments: Note: 11 Bands TNP Metamyelocytes 1 % High 0 - 0 Myelocytes 4 % High 0 - 0 Promyelocytes TNP Blasts/blast like cells TNP Megakaryocytes TNP Other, Lineage Uncertain TNP U/A DIP FPA 12/24/2019 [facility] Asso ciates Color Urine YELLOW Yellow Appearance CLEAR Clear Specific [place] 1.025 1.00-1.03 PH Urine 5.0 5.0-8.0 Glucose Urine NEG Negative Bilirubin Urine NEG Negative Ketones NEG Negative Blood Urine NEG Negative Protein Urine NEG Negative Urobilinogen .2 EU/dl 0.2-1.0 Nitrite NEG Negative Leukocytes NEG Negative Basic Metabolic Profile 12/07/2019 [facility] (Interface) [phone] Glucose, Fasting 126 mg/dL High 70-100 Blood Urea Nitrogen 22 mg/dL High 7-18 Creatinine For GFR 1.03 mg/dL Normal 0.70-1.30 Glomerular Filtration Rate > 60.0 Normal >35 1 2 Sodium Level 144 mEq/L Normal 136-145 Potassium Serum 3.9 mEq/L Normal 3.5-5.1 Chloride Level 110 mEq/L High 98-107 Carbon Dioxide Level 30 mEq/L Normal 21-32 Anion Gap 4 mEq/L Low 8-16 Calcium Level 8.5 mg/dL Low 8.8-10.2 Laboratory test finding 12/07/2019 [facility] (Interface) [phone] Magnesium Level 1.8 mg/dL Normal 1.8-2.4 1 QUANTITATIVE RESULT QUALITATIVE INTERPRETATION <5.0 IU/L NEGATIVE 5.0 - 25.0 IU/L INDETER MINATE >25.0 IU/L POSITIVE 2 A courtesy copy of this repo rt has been sent to the patient, 3 Actual platelet count may be somewhat higher than reported due to aggregation of platelets in this sample. 4 Manual differential was perf ormed. 5 Few schistocytes. 6 Manual differential was perf ormed. 7 Units are mL/min/1.73 m2 Chronic Kidney Disease Staging per NKF: Stage I & II GFR >=60 Normal to Mildly Decreased Stage III GFR 30-59 Moderately Decreased Stage IV GFR 15-29 Severely Decreased Stage V GFR <15 Very Little GFR Left ESRD GFR <15 on FORESTRY TECHNICIAN 8 DIAGNOSIS CRITERIA MMB ng/ml Relative Index (RI) NON-AMI < or = 5 N/A CHANEY ZONE > 5 < or = 4 AMI > 5 > 4 9 Troponin I Reference Interva l for SIVI LOCI: 99th Percentile= 0.00-0.045 ng/ml Risk Stratification: <= 0.10 ng/ml Decreased Risk for Adverse Clinical Events. 0.10-1.50 ng/ml Increased Risk for Adv erse Clinical Events. Evaluation of additional criterion and/or repeat testing in 2-6 hours is suggested to rule out myocardial damage. >= 1.50 ng/ml Indicative of Myocardial Injury. 10 Y/N query for Sepsis Lactate Rule: Y 11 Manual differential was perf ormed. 12 Units are mL/min/1.73 m2 Chronic Kidney Disease Staging per NKF: Stage I & II GFR >=60 Normal to Mildly Decreased Stage III GFR 30-59 Moderately Decreased Stage IV GFR 15-29 Severely Decreased Stage V GFR <15 Very Little GFR Left ESRD GFR <15 on FORESTRY TECHNICIAN Procedures Description No Information Available Medical Devices Description No Information Available Encounters Type Date Location Provider Dx Diagnosis Office Visit 04/25/2020 2:30p [facility] Mack Monae M. D. 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 D. 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 D. R63.4 Abnormal weight loss D64.9 Anemia, unspecified I50.9 Heart failure, unspecified Z23 Encounter for immunization Assessments Date Code Description Provider 04/25/2020 R63.4 [...] Z23 Encounter for immunization Mack Cheatham M.D. Plan of Treatment No Information Available Functional Status Description No Information Available Mental Status Description No Information Available Referrals Refer to Reason for Referral Status Appt Date Radha Garcia hallucinations, adventitial movements wh ile sleeping- eval and rx Sent 01/11/2020 [facility] [address] [address] [phone]
--- OUTSIDE RECORDS SUMMARY | 2020-05-21 12:19 | CCD | Continuity of Care Document ---
Author Author Pete MONAE M.D. Organization Unknown Address [address] [place], [place] [address] Phone [phone] Care Team Providers Care Stitcher Standard Machine Name Role Phone [facility] [phone] Problems Active Problems Provider Date Polymyalgia rheumatica [...] CPT Code Status Date Vaccine Lot # [id number] Given 11/26/2019 Influenza Virus Vaccine, Quadrivalent, Slit Virus, Im Use 3Y & Up [id number] 21535 Given 02/06/2018 Influenza Virus Vaccine, Quadrivalent, Slit Virus, Im Use 3Y & Up [id number] 97107 Given 02/04/2017 Influenza Virus Vaccine, Quadrivalent, Slit Virus, Im Use 3Y & Up [id number] 40156 Given 01/12/2016 Influenza Virus Vaccine, Quadrivalent, Slit Virus, Im Use 3Y & Up [id number] 33205 Given 03/29/2015 Influenza Vaccin e (Fluzone) 3Yrs Of Age Or Older Medicare Plans [id number] 31461 Given 01/18/2013 Influenza Vaccin e (Fluzone) 3Yrs Of Age Or Older Medicare Plans 70054 Given 01/18/2013 Influenza Virus Vac. Split Virus Individuals 3 Years And Above [id number] Vital Signs Date Vital Result Comment 04/25/2020 2:25pm BP Systolic 116 mmHg BP Diastolic 70 mmHg Body Temperature 98.4 F Heart Rate 70 /min Respiratory Rate 14 /min Height 67 inches 5'7" Weight 153.00 lb [place] Body Weight 148 lb BMI (Body Mass Index) 24.0 kg/m2 O2 % BldC Oximetry 94 % 12/24/2019 3:06pm BP Systolic 118 mmHg BP Diastolic 64 mmHg Body Temperature 97.5 F Heart Rate 70 /min Respiratory Rate 12 /min Height 67 inches 5'7" Weight 136.00 lb [place] Body Weight 148 lb BMI (Body Mass Index) 21.3 kg/m2 O2 % BldC Oximetry 94 % Results Test Acquired Date Facility Test Result H/L Range Note Laboratory test finding 05/19/2020 [facility] (Interface) [phone] iSTAT B-hCG < 5.0 Normal 1 Venous Blood Gas 05/19/2020 [facility] (I nterface) [phone] Venous PH 7.422 units Normal 7.330-7.430 Venous Partial Pressure Co2 62.6 mmHg High 38.0-50.0 Venous Partial Pressure O2 237.6 mmHg High 30.0-50.0 Venous Total Co2 41.8 mEq/L High 24.0-28.0 Venous Hco3 39.9 mEq/L High 23.0-27.0 Venous Base Excess 13.1 High -2.0-2.0 Venous Standard Hco3 36.9 mEq/L Normal Venous O2 Saturation 99.1 % High 60.0-80.0 Ua W/ Reflex To Culture 05/19/2020 [facility] (Interface) [phone] Appearance, Urine RFX CLEAR Normal Clear Color, Urine RFX STRAW Normal Yellow PH,Urine RFX 7.0 units Normal 5.0-9.0 Specific [place] Ur Auto RFX 1.005 Normal 1.002-1.035 Protein, [...] /LPF Normal 0-1 Laboratory test finding 05/19/2020 [facility] (Interface) [phone] Ammonia 22 uMOL/L Normal <32 Liver Profile 05/19/2020 [facility] ([facility]) [phone] Ast/Sgot 14 U/L Normal 7-37 Alt/SGPT 15 U/L Normal 12-78 Alkaline Phosphatase 92 U/L Normal 45-117 Bilirubin,Total 0.4 mg/dL Normal 0.2-1.0 Bilirubin,Direct 0.1 mg/dL Normal 0.0-0.2 Total Protein 5.5 GM/DL Low 6.4-8.2 Albumin 2.7 GM/DL Low 3.2-5.2 Albumin/Globulin Ratio 1.0 Normal Laboratory test finding 05/19/2020 [facility] (Interface) [phone] Thyroid Stimulating Hormone 1.340 uIU/ML Normal 0. 358-3.740 CBC With Differential 05/19/2020 [facility] (Interface) [phone] White Blood Count 12.1 10 High 4.0-10.0 2 Red Blood Count 3.89 10 Low 4.30-6.10 Hemoglobin 11.1 g/dL Low 13.5-17.5 Hematocrit 34.7 % Low 42.0-52.0 Mean Corpuscular Volume 89.2 fl Normal 80.0-96.0 Mean Corpuscular Hemoglobin 28.5 pg Normal 27.0-33.0 Mean Corpuscular HGB Conc 32.0 g/dL Normal 32.0-36.5 Red Cell Distribution Width 18.7 % High 11.5-14.5 Platelet Count, Automated 192 10 Normal 150-450 Nucleated Red Blood Cell % 0.0 % Normal 0-0 Differential 05/19/2020 [facility] [phone] Neutrophils 71 % High 28-66 Bands 6 % Normal < 11 Lymphocytes 11 % Low 16-44 Monocytes 10 % High 0-5 Atypical Lymph 2 % Normal 0-5 Hypochromasia 1+ Normal Anisocytosis 2+ Normal Macrocytosis 1+ Normal Laboratory test finding 05/19/2020 [facility] (Interface) [phone] Platelet Estimate NORMAL Normal Normal Lactic Acid Sepsis Protocol 2.2 mmol/L Critical high 0.4-2.0 3 Istat Chem8+ Panel 05/19/2020 [facility]) [phone] iSTAT HCT 32.0 % Low 38.0-51.0 iSTAT [...] N E WBC 12.6 x10E3/uL High 3.4-10.8 4 RBC 4.00 x10E6/uL Low 4.14-5.80 Hemoglobin 11.5 g/dL Low 13.0-17.7 Hematocrit 35.9 % Low 37.5-51.0 MCV 90 fL 79-97 MCH 28.8 pg 26.6-33.0 MCHC 32.0 g/dL 31.5-35.7 RDW 18.1 % High 11.6-15.4 Platelets 179 x10E3/uL 150-450 5 Neutrophils 68 % Not Estab. Lymphs 8 [...] Hematology Comments: Note: 6 Bands TNP Metamyelocytes 4 % High 0 - 0 Myelocytes 5 % High 0 - 0 Promyelocytes TNP Blasts/blast like cells TNP Megakaryocytes TNP Other, Lineage Uncertain TNP Laboratory test finding 04/25/2020 [facility] [place] TSH 1.270 uIU/mL 0.450-4.500 Metabolic Panel (14), Comprehensive 04/25/2020 [facility] [...] IU/L 0-40 Alt (SGPT) 14 IU/L 0-44 CBC With Differential/Platelet 04/25/2020 [facility] [place] E WBC 12.3 x10E3/uL High 3.4-10.8 RBC 4.03 x10E6/uL Low 4.14-5.80 7 Hemoglobin 11.8 g/dL Low 13.0-17.7 Hematocrit 36.0 [...] (Abs) TNP NRBC TNP Hematology Comments: Note: 8 Bands TNP Metamyelocytes 1 % High 0 - 0 Myelocytes 5 % High 0 - 0 Promyelocytes TNP Blasts/blast like cells TNP Megakaryocytes TNP Other, Lineage Uncertain TNP Laboratory test finding 04/25/2020 [facility] [place] Magnesium 1.7 mg/dL 1.6-2.3 Ua W/ Reflex To Culture [facility] [phone] Appearance, Urine RFX CLEAR Normal Clear Color, Urine RFX YELLOW Normal Yellow PH,Urine RFX 6.0 units Normal 5.0-9.0 Specific [place] Ur Auto RFX 1.015 Normal 1.002-1.035 Protein, [...] /LPF Normal 0-1 Laboratory test finding 01/17/2020 [facility] (Interface) [phone] Lactic Acid Sepsis Protocol 0.9 mmol/L Normal 0.4- 2.0 9 Cardiac Marker Panel 01/17/2020 [facility] ( Interface) [phone] CPK Creatine Phosphokinase 24 U/L Low 39-30 8 CK-MB Value Mass 1.5 NG/ML Normal <3.6 MB/CK Relative Index 6.25 High < Or =4 10 Troponin I < 0.02 NG/ML Normal < 0.10 11 Liver Profile 01/17/2020 [facility] (I nterface) [phone] Ast/Sgot 14 U/L Normal 7-37 Alt/SGPT 17 U/L Normal 12-78 Alkaline Phosphatase 70 U/L Normal 45-117 Bilirubin,Total 0.6 mg/dL Normal 0.2-1.0 Bilirubin,Direct 0.2 mg/dL Normal 0.0-0.2 Total Protein 5.4 GM/DL Low 6.4-8.2 Albumin 2.5 GM/DL Low 3.2-5.2 Albumin/Globulin Ratio 0.9 Normal Basic Metabolic Profile 01/17/2020 [facility] (Interface) [phone] Glucose, Fasting 114 mg/dL High 70-100 Blood Urea Nitrogen 18 mg/dL Normal 7-18 Creatinine For GFR 1.00 mg/dL Normal 0.70-1.30 Glomerular Filtration Rate > 60.0 Normal >35 1 2 Sodium Level 142 mEq/L Normal 136-145 Potassium Serum 4.3 mEq/L Normal 3.5-5.1 Chloride Level 107 mEq/L Normal 98-107 Carbon Dioxide Level 31 mEq/L Normal 21-32 Anion Gap 4 mEq/L Low 8-16 Calcium Level 8.7 mg/dL Low 8.8-10.2 Laboratory test finding 01/17/2020 [facility] (Interface) [phone] Osmolality Serum 292 MOSM/KG Normal 280-301 Thyroid Stimulating Hormone 0.928 uIU/ML Normal 0.358-3.740 CBC With Differential 01/17/2020 [facility] (Interface) [phone] White Blood Count 13.4 10 High 4.0-10.0 [...] % 0.0 % Normal 0-0 Differential 01/17/2020 [facility] (I nterface) [phone] Neutrophils 83 % High 28-66 Bands 1 % Normal < 11 Lymphocytes 5 % Low 16-44 Monocytes 7 % High 0-5 Myelocytes 3 % High 0-0 Atypical Lymph 1 % Normal 0-5 Anisocytosis 2+ Normal Laboratory test finding 01/17/2020 [facility] (Interface) [phone] Platelet Estimate NORMAL Normal Normal CBC With Differential/Platelet 12/24/2019 [facility] N E [...] (Abs) TNP NRBC TNP Hematology Comments: Note: 13 Bands TNP Metamyelocytes 1 % High 0 - 0 Myelocytes 4 % High 0 - 0 Promyelocytes TNP Blasts/blast like cells TNP Megakaryocytes TNP Other, Lineage Uncertain TNP U/A DIP FPA 12/24/2019 [facility] Asso ciates Color Urine YELLOW Yellow Appearance CLEAR Clear Specific [place] 1.025 1.00-1.03 PH Urine 5.0 5.0-8.0 Glucose Urine NEG Negative Bilirubin Urine NEG Negative Ketones NEG Negative Blood Urine NEG Negative Protein Urine NEG Negative Urobilinogen .2 EU/dl 0.2-1.0 Nitrite NEG Negative Leukocytes NEG Negative Basic Metabolic Profile [facility]/07[facility]2019 [facility]Interface) [phone] Glucose, Fasting 126 mg/dL High 70-100 Blood Urea Nitrogen 22 mg/dL High 7-18 Creatinine For GFR 1.03 mg/dL Normal 0.70-1.30 Glomerular Filtration Rate > 60.0 Normal >35 1 4 Sodium Level 144 mEq/L Normal 136-145 Potassium Serum 3.9 mEq/L Normal 3.5-5.1 Chloride Level 110 mEq/L High 98-107 Carbon Dioxide Level 30 mEq/L Normal 21-32 Anion Gap 4 mEq/L Low 8-16 Calcium Level 8.5 mg/dL Low 8.8-10.2 Laboratory test finding 12/07/2019 [facility] (Interface) [phone] Magnesium Level 1.8 mg/dL Normal 1.8-2.4 1 QUANTITATIVE RESULT QUALITATIVE INTERPRETATION <5.0 IU/L NEGATIVE 5.0 - 25.0 IU/L INDETER MINATE >25.0 IU/L POSITIVE 2 A Pathologist review of this differential can help in the evaluation of a differential diagnosis. Please order a Pathologist Review (PERISM) if deemed necessary. Results are subject to change if a Pathologist Review is performed. 3 Y/N query for Sepsis Lactate Rule: Y 4 A courtesy copy of this repo rt has been sent to the patient, 5 Actual platelet count may be somewhat higher than reported due to aggregation of platelets in this sample. 6 Manual differential was perf ormed. 7 Few schistocytes. 8 Manual differential was perf ormed. 9 Y/N query for Sepsis Lactate Rule: Y 10 DIAGNOSIS CRITERIA MMB ng/ml Relative Index (RI) NON-AMI < or = 5 N/A CHANEY ZONE > 5 < or = 4 AMI > 5 > 4 11 Troponin I Reference Interva l for [employer] [place] LOCI: 99th Percentile= 0.00-0.045 ng/ml Risk Stratification: <= 0.10 ng/ml Decreased Risk for Adverse Clinical Events. 0.10-1.50 ng/ml Increased Risk for Adv erse Clinical Events. Evaluation of additional criterion and/or repeat testing in 2-6 hours is suggested to rule out myocardial damage. >= 1.50 ng/ml Indicative of Myocardial Injury. 12 Units are mL/min/1.73 m2 Chronic Kidney Disease Staging per NKF: Stage I & II GFR >=60 Normal to Mildly Decreased Stage III GFR 30-59 Moderately Decreased Stage IV GFR 15-29 Severely Decreased Stage V GFR <15 Very Little GFR Left ESRD GFR <15 on RETAIL ASSISTANT 13 Manual differential was perf ormed. 14 Units are mL/min/1.73 m2 Chronic Kidney Disease Staging per NKF: Stage I & II GFR >=60 Normal to Mildly Decreased Stage III GFR 30-59 Moderately Decreased Stage IV GFR 15-29 Severely Decreased Stage V GFR <15 Very Little GFR Left ESRD GFR <15 on RETAIL ASSISTANT Procedures Description No Information Available Medical Devices Description No Information Available Encounters Type Date Location Provider Dx Diagnosis Office Visit 04/25/2020 2:30p [place] [facility] Mack Monae M. D. 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 D. 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 D. R63.4 Abnormal [...] Mack Camargo M.D. 11/26/2019 R63.4 Abnormal weight Martínez Rizo M.D. 11/26/2019 D64.9 Anemia, unspecified Anshu Monae M.D. 11/26/2019 I50.9 Heart failure, unspecified Mack Cheatham M.D. 11/26/2019 Z23 Encounter for immunization Mack Cheatham M.D. Plan of Treatment No Information Available Functional Status Description No Information Available Mental Status Description No Information Available Referrals Refer to Dr Reason for Referral Status Appt Date Radha Garcia hallucinations, adventitial movements wh ile sleeping- eval and rx Sent 01/11/2020 [facility] [address] [address] [phone]
--- OUTSIDE RECORDS SUMMARY | 2020-05-21 12:19 | CCD | Continuity of Care Document ---
Author Author Pete MONAE M.D. Organization Unknown Address [address] [place], [place] [address] Phone [phone] Care Team Providers Care Game Room Attendant Name Role Phone [facility] [phone] Problems Active Problems Provider Date Polymyalgia rheumatica [...] Take One Capsule By Mouth Every Day 90aMck Pardo M. D. 03/26/2013 Gabapentin 100mg Capsules [...] CPT Code Status Date Vaccine Lot # [id number] Given 11/26/2019 Influenza Virus Vaccine, Quadrivalent, Slit Virus, Im Use 3Y & Up [id number] 60106 Given 02/06/2018 Influenza Virus Vaccine, Quadrivalent, Slit Virus, Im Use 3Y & Up [id number] 44964 Given 02/04/2017 Influenza Virus Vaccine, Quadrivalent, Slit Virus, Im Use 3Y & Up [id number] 14082 Given 01/12/2016 Influenza Virus Vaccine, Quadrivalent, Slit Virus, Im Use 3Y & Up [id number] 96641 Given 03/29/2015 Influenza Vaccin e (Fluzone) 3Yrs Of Age Or Older Medicare Plans [id number] 22300 Given 01/18/2013 Influenza Vaccin e (Fluzone) 3Yrs Of Age Or Older Medicare Plans 78226 Given 01/18/2013 Influenza Virus Vac. Split Virus Individuals 3 Years And Above [id number] Vital Signs Date Vital Result Comment 04/25/2020 2:25pm BP Systolic 116 mmHg BP Diastolic 70 mmHg Body Temperature 98.4 F Heart Rate 70 /min Respiratory Rate 14 /min Height 67 inches 5'7" Weight 153.00 lb [place] Body Weight 148 lb BMI (Body Mass Index) 24.0 kg/m2 O2 % BldC Oximetry 94 % 12/24/2019 3:06pm BP Systolic 118 mmHg BP Diastolic 64 mmHg Body Temperature 97.5 F Heart Rate 70 /min Respiratory Rate 12 /min Height 67 inches 5'7" Weight 136.00 lb [place] Body Weight 148 lb BMI (Body Mass Index) 21.3 kg/m2 O2 % BldC Oximetry 94 % Results Test Acquired Date Facility Test Result H/L Range Note Laboratory test finding [facility]Interface[facility] [phone] iSTAT B-hCG < 5.0 Normal 1 Istat Chem8+ Panel 05/19/2020 [facility] (I nterface) [phone] iSTAT HCT 32.0 % Low 38.0-51.0 iSTAT [...] 1.270 uIU/mL 0.450-4.500 Laboratory test finding 01/17/2020 [facility] (Interface) [phone] Platelet Estimate NORMAL Normal Normal Differential 01/17/2020 [facility] [phone] Neutrophils 83 % High 28-66 Bands 1 % Normal < 11 Lymphocytes 5 % Low 16-44 Monocytes 7 % High 0-5 Myelocytes 3 % High 0-0 Atypical Lymph 1 % Normal 0-5 Anisocytosis 2+ Normal CBC With Differential 01/17/2020 [facility]) [phone] White Blood Count 13.4 10 High 4.0-10.0 [...] % Normal 0-0 Laboratory test finding 01/17/2020 [facility] (Interface) [phone] Osmolality Serum 292 MOSM/KG Normal 280-301 Thyroid Stimulating Hormone 0.928 uIU/ML Normal 0.358-3.740 Basic Metabolic Profile 01/17/2020 [facility] (Interface) [phone] Glucose, Fasting 114 mg/dL High 70-100 Blood [...] 8.7 mg/dL Low 8.8-10.2 Liver Profile 01/17/2020 [facility] (I nterface) [phone] Ast/Sgot 14 U/L Normal 7-37 Alt/SGPT 17 U/L Normal 12-78 Alkaline Phosphatase 70 U/L Normal 45-117 Bilirubin,Total 0.6 mg/dL Normal 0.2-1.0 Bilirubin,Direct 0.2 mg/dL Normal 0.0-0.2 Total Protein 5.4 GM/DL Low 6.4-8.2 Albumin 2.5 GM/DL Low 3.2-5.2 Albumin/Globulin Ratio 0.9 Normal Cardiac Marker Panel 01/17/2020 [facility] ( Interface) [phone] CPK Creatine Phosphokinase 24 U/L Low 39-30 8 CK-MB Value Mass 1.5 NG/ML Normal <3.6 MB/CK Relative Index 6.25 High < Or =4 8 Troponin I < 0.02 NG/ML Normal < 0.10 9 Laboratory test finding 01/17/2020 [facility] (Interface) [phone] Lactic Acid Sepsis Protocol 0.9 mmol/L Normal 0.4- 2.0 10 Ua W/ Reflex To Culture 01/17/2020 [facility] (Interface) [phone] Appearance, Urine RFX CLEAR Normal Clear Color, Urine RFX YELLOW Normal Yellow PH,Urine RFX 6.0 units Normal 5.0-9.0 Specific [place] Ur Auto RFX 1.015 Normal 1.002-1.035 Protein, [...] Lineage Uncertain TNP U/A DIP FPA 12/24/2019 [facility] Practice Asso ciates Color Urine YELLOW Yellow Appearance CLEAR Clear Specific [place] 1.025 1.00-1.03 PH Urine 5.0 5.0-8.0 Glucose Urine NEG Negative Bilirubin Urine NEG Negative Ketones NEG Negative Blood Urine NEG Negative Protein Urine NEG Negative Urobilinogen .2 EU/dl 0.2-1.0 Nitrite NEG Negative Leukocytes NEG Negative Basic Metabolic Profile 12/07/[address] [facility] (Interface) [phone] Glucose, Fasting 126 mg/dL High 70-100 Blood [...] mg/dL Low 8.8-10.2 Laboratory test finding 12/07/2019 [facility] (Interface) [phone] Magnesium Level 1.8 mg/dL Normal 1.8-2.4 1 [...] Little GFR Left ESRD GFR <15 on BEEKEEPER 8 DIAGNOSIS CRITERIA MMB ng/ml Relative Index (RI) NON-AMI < or = 5 N/A CHANEY ZONE > 5 < or = 4 AMI > 5 > 4 9 Troponin I Reference Interva l for [place] LOCI: 99th Percentile= 0.00-0.045 ng/ml Risk Stratification: [...] Little GFR Left ESRD GFR <15 on BEEKEEPER Procedures Description No Information Available Medical Devices Description No Information Available Encounters Type Date Location Provider Dx Diagnosis Office Visit 04/25/2020 2:30p [place] [facility] Mack Monae M. D. 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 D. 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 D. R63.4 Abnormal [...] ile sleeping- eval and rx Sent 01/11/2020 [facility] [address] [address] [phone]
--- OUTSIDE RECORDS SUMMARY | 2020-05-21 12:20 | CCD | Continuity of Care Document ---
Author Author Pete MONAE M.D. Organization Unknown Address [address] [place], [place] [address] Phone [phone] Care Team Providers Care Lumber Tailer Name Role Phone [facility] [phone] Problems Active Problems Provider Date Polymyalgia rheumatica [...] By Mouth Every Day 90taMack Davies M.D. Immunizations CPT Code Status Date Vaccine Lot # 48776 Given 11/26/2019 Influenza Virus Vaccine, Quadrivalent, Slit Virus, Im Use 3Y & Up [id number] 48761 Given 02/06/2018 Influenza Virus Vaccine, Quadrivalent, Slit Virus, Im Use 3Y & Up [id number] 17879 Given 02/04/2017 Influenza Virus Vaccine, Quadrivalent, Slit Virus, Im Use 3Y & Up [id number] 62519 Given 01/12/2016 Influenza Virus Vaccine, Quadrivalent, Slit Virus, Im Use 3Y & Up [id number] 50434 Given 03/29/2015 Influenza Vaccin e (Fluzone) 3Yrs Of Age Or Older Medicare Plans [id number] 60580 Given 01/18/2013 Influenza Vaccin e (Fluzone) 3Yrs Of Age Or Older Medicare Plans 82816 Given 01/18/2013 Influenza Virus Vac. Split Virus Individuals 3 Years And Above [id number] Vital Signs Date Vital Result Comment 04/25/2020 2:25pm BP Systolic 116 mmHg BP Diastolic 70 mmHg Body Temperature 98.4 F Heart Rate 70 /min Respiratory Rate 14 /min Height 67 inches 5'7" Weight 153.00 lb [place] Body Weight 148 lb BMI (Body Mass Index) 24.0 kg/m2 O2 % BldC Oximetry 94 % 12/24/2019 3:06pm BP Systolic 118 mmHg BP Diastolic 64 mmHg Body Temperature 97.5 F Heart Rate 70 /min Respiratory Rate 12 /min Height 67 inches 5'7" Weight 136.00 lb [place] Body Weight 148 lb BMI (Body Mass Index) 21.3 kg/m2 O2 % BldC Oximetry 94 % Results Test Acquired Date Facility Test Result H/L Range Note Istat Chem8+ Panel 05/19/2020 [facility] [phone] iSTAT HCT 32.0 % Low 38.0-51.0 iSTAT [...] 1.270 uIU/mL 0.450-4.500 Laboratory test finding 01/17/2020 [facility] (Interface) [phone] Platelet Estimate NORMAL Normal Normal Differential 01/17/2020 [facility] [phone] Neutrophils 83 % High 28-66 Bands 1 % Normal < 11 Lymphocytes 5 % Low 16-44 Monocytes 7 % High 0-5 Myelocytes 3 % High 0-0 Atypical Lymph 1 % Normal 0-5 Anisocytosis 2+ Normal CBC With Differential 01/17/2020 [facility] ([facility]) [phone] White Blood Count 13.4 10 High 4.0-10.0 [...] % Normal 0-0 Laboratory test finding 01/17/2020 [facility] (Interface) [phone] Osmolality Serum 292 MOSM/KG Normal 280-301 Thyroid Stimulating Hormone 0.928 uIU/ML Normal 0.358-3.740 Basic Metabolic Profile 01/17/2020 [facility] (Interface) [phone] Glucose, Fasting 114 mg/dL High 70-100 Blood [...] 8.7 mg/dL Low 8.8-10.2 Liver Profile 01/17/2020 [facility] (I nterface) [phone] Ast/Sgot 14 U/L Normal 7-37 Alt/SGPT 17 U/L Normal 12-78 Alkaline Phosphatase 70 U/L Normal 45-117 Bilirubin,Total 0.6 mg/dL Normal 0.2-1.0 Bilirubin,Direct 0.2 mg/dL Normal 0.0-0.2 Total Protein 5.4 GM/DL Low 6.4-8.2 Albumin 2.5 GM/DL Low 3.2-5.2 Albumin/Globulin Ratio 0.9 Normal Cardiac Marker Panel 01/17/2020 [facility] ( Interface) [phone] CPK Creatine Phosphokinase 24 U/L Low 39-30 8 CK-MB Value Mass 1.5 NG/ML Normal <3.6 MB/CK Relative Index 6.25 High < Or =4 7 Troponin I < 0.02 NG/ML Normal < 0.10 8 Laboratory test finding 01/17/2020 [facility] (Interface) [phone] Lactic Acid Sepsis Protocol 0.9 mmol/L Normal 0.4- 2.0 9 Ua W/ Reflex To Culture 01/17/2020 [facility] (Interface) [phone] Appearance, Urine RFX CLEAR Normal Clear Color, Urine RFX YELLOW Normal Yellow PH,Urine RFX 6.0 units Normal 5.0-9.0 Specific [place] Ur Auto RFX 1.015 Normal 1.002-1.035 Protein, [...] Lineage Uncertain TNP U/A DIP FPA 12/24/2019 [facility] Practice Asso ciates Color Urine YELLOW Yellow Appearance CLEAR Clear Specific [place] 1.025 1.00-1.03 PH Urine 5.0 5.0-8.0 Glucose Urine NEG Negative Bilirubin Urine NEG Negative Ketones NEG Negative Blood Urine NEG Negative Protein Urine NEG Negative Urobilinogen .2 EU/dl 0.2-1.0 Nitrite NEG Negative Leukocytes NEG Negative Basic Metabolic Profile [facility] [phone] Glucose, Fasting 126 mg/dL High 70-100 Blood [...] mg/dL Low 8.8-10.2 Laboratory test finding 12/07/2019 [facility] (Interface) [phone] Magnesium Level 1.8 mg/dL Normal 1.8-2.4 1 A courtesy copy of this repo [...] Little GFR Left ESRD GFR <15 on PROCESS PLANNER 7 DIAGNOSIS CRITERIA MMB ng/ml Relative Index (RI) NON-AMI < or = 5 N/A CHANEY ZONE > 5 < or = 4 AMI > 5 > 4 8 Troponin I Reference Interva l for [employer] [place] LOCI: 99th Percentile= 0.00-0.045 ng/ml Risk Stratification: [...] Little GFR Left ESRD GFR <15 on PROCESS PLANNER Procedures Description No Information Available Medical Devices Description No Information Available Encounters Type Date Location Provider Dx Diagnosis Office Visit 04/25/2020 2:30p [facility] Mack Monae M. D. 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 D. 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 D. R63.4 Abnormal [...] ile sleeping- eval and rx Sent 01/11/2020 [facility] [address] [address] [phone]
--- OUTSIDE RECORDS SUMMARY | 2020-05-21 12:23 | CCD ---
Author Author [facility] Organization [facility] Address Unknown Phone Unavailable Care Team Providers Care Group Tester Name Role Phone Ramirez Garcia SHOW OPERATIONS SUPERVISOR Unavailable Unavailable DietscheRamirez SHOW OPERATIONS SUPERVISOR Unavailable Unavailable Dietsche M Vanessa SHOW OPERATIONS SUPERVISOR Unavailable Unavailable Dietsche M Vanessa SHOW OPERATIONS SUPERVISOR Unavailable Unavailable Dietsche M Vanessa SHOW OPERATIONS SUPERVISOR Unavailable Unavailable Dietsche M Vanessa SHOW OPERATIONS SUPERVISOR Unavailable Unavailable Dietsche M Vanessa SHOW OPERATIONS SUPERVISOR Unavailable Unavailable Dietsche M Vanessa SHOW OPERATIONS SUPERVISOR Unavailable Unavailable Dietsche M Vanessa SHOW OPERATIONS SUPERVISOR Unavailable Unavailable Dietsche, M Vanessa SHOW OPERATIONS SUPERVISOR Unavailable Unavailable Dietsche, M Vanessa SHOW OPERATIONS SUPERVISOR Unavailable Unavailable Dietsche, M Vanessa SHOW OPERATIONS SUPERVISOR Unavailable Unavailable Kathy Dunlap Unavailable Unavailable Kathy [...] MD Unavailable Unavailable Dombek-LangYulia MD Unavailable Unavailable Dombek-LangYulia MD Unavailable Unavailable Shabek-LangYulia MD Unavailable Unavailable ShabekYulia Garcia MD Unavailable Unavailable Dombek-Yulia Coffman MD Unavailable Unavailable Dombek-Yulia Coffman MD Unavailable Unavailable Dombek-Yulia Coffman MD Unavailable Unavailable Dombek-Yulia Coffman MD Unavailable Unavailable ShabekYulia Garcia MD [...] Unavailable Kobe Lynch MD Unavailable Unavailable Kobe Lnych MD Unavailable Unavailable Kobe Lynch MD Unavailable [...] Ali MD Unavailable Unavailable Al Mudamgha, A Jose SOLIS Unavailable Unavailable Al Mudamgha, A Jose SOLIS Unavailable Unavailable Al Mudamgha, A Ali MD [...] Ali MD Unavailable Unavailable Al Mudamgha, A Jose SOLIS Unavailable Unavailable Al Mudamgha, A Jose SOLIS Unavailable Unavailable Al Mudamgha, A Ali MD [...] is protected by Article 27-F of the [place] Public Health law. If you continue you may have access to information: Regarding HIV / AIDS; Provided by facilities licensed or operated by the [place] Office of Mental Health; or Provided by the [place] Office for People With Developmental Disabilities. If such information is present, then the following [place] mandated warning applies: This information has been [...] law may result in a fine or custodial sentence or both. A general authorization for the release of medical or other information is NOT sufficient authorization for further disc losure. Family History Family Member Name Family Member Gender Family Member Status Date o f Status Description Data Source(s) Unknown Unknown Problem [facility] ([facility]) Encounters Encounter Providers Location Date Indications Data Source(s ) Outpatient Attender: JAY SALGADO [facility] Office 04/01 09:45:00 AM EST [facility] ([facility] Outpatient Attender: GAIL LUNA MD [place] [facility] 01:30:00 PM EST [facility] ([facility] Office Visit Attender: Thom Lynch MD [facility] office - [facility] [place] 04/20/2020 01:15:00 PM EST [facility] ([facility] Outpatient Attender: LISA MORE MDConsultant: STAFF NON 04/13/2020 07:26:00 AM EST - 04/13/2020 07:36:00 AM EST [facility] Outpatient Attender: LISA MORE MDConsultant: STAFF NON 04/10/2020 03:31:00 PM EST - 04/10/2020 03:41:00 PM EST [facility] Outpatient Attender: LISA MORE MDConsultant: STAFF NON 04/06/2020 02:43:00 PM EST - 04/06/2020 02:53:00 PM EST [facility] Outpatient Attender: LISA MORE MDConsultant: STAFF NON 04/03/2020 07:22:00 PM EST - 04/03/2020 07:32:00 PM EST [facility] Outpatient Attender: LISA MORE MDConsultant: STAFF NON 03/30/2020 03:52:00 PM EST - 03/30/2020 04:02:00 PM EST [facility] Outpatient Attender: LISA MORE MDConsultant: STAFF NON 03/27/2020 01:59:00 PM EST - 03/27/2020 02:09:00 PM EST [facility] Outpatient Attender: LISA MORE MDConsultant: STAFF NON 03/23/2020 04:49:00 PM EST - 03/23/2020 04:59:00 PM EST [facility] Outpatient Attender: LISA MORE MDConsultant: STAFF NON 03/16/2020 07:01:00 AM EST - 03/16/2020 07:11:00 AM EST [facility] Outpatient Attender: LISA MORE MDConsultant: STAFF NON 02/22/2020 07:32:00 AM EST - 02/22/2020 07:42:00 AM EST [facility] Outpatient Attender: LISA MORE MDConsultant: STAFF NON 02/17/2020 07:03:00 AM EST - 02/17/2020 07:13:00 AM EST [facility] Outpatient Attender: LISA MORE MDConsultant: STAFF NON 01/22/2020 07:15:00 AM EDT - 01/22/2020 07:25:00 AM EDT [facility] Outpatient Attender: Thom Lynch MD Main office [facility] 01/11/2020 10:00:00 AM EDT MED[facility] ([facility] ) Outpatient Attender: GAIL LUNA MD [place] [facility] 03:00:00 PM EDT [facility] Outpatient Attender: JAY SALGADO [facility] Office 11/30 01:45:00 PM EDT [facility] ([facility] Outpatient Attender: Nancy Dunlap [facility] Office 12/13/2019 11:15:00 AM EDT [facility] ([facility]) Outpatient Attender: GAIL LUNA MD [facility] 02:45:00 PM EDT [facility] ([facility] Outpatient Attender: GAIL LUNA MD [place] [facility] 03:20:00 PM EDT [facility] ([facility] Outpatient Attender: GAIL LUNA MD [facility] 02:30:00 PM EDT [facility] ([facility] Inpatient Attender: Phoebe Sosa MDAttender: JORGE FERNANDEZ PAAdmitter: Phoebe Sosa MD EMERGENCY ROOM- 10/26/2019 04:04:00 PM EDT - 10/27/2019 02:20:00 PM T [facility] Patient discharged. Outpatient Attender: GAIL [facility] Office 02:30:00 PM EDT [facility] ([facility] Outpatient Referrer: Vanessa Garcia NP 09/27/2019 05:21:00 AM EDT [facility] Outpatient Attender: GAIL [facility] Office 03:20:00 PM EDT [facility] Outpatient Attender: Nancy SANCHEZ Main Office 09/09/2019 07:45:00 AM EDT [facility] ([facility] Outpatient Attender: GAIL [facility] Office 05/2019 03:40:00 PM EDT [facility] ([facility] Outpatient Attender: GAIL [facility] Office 02:00:00 PM EDT [facility] ([facility] Outpatient Referrer: Vanessa Garcia NP 08/15/2019 07:27:00 AM EDT [facility] Outpatient Referrer: Vanessa Garcia NP 08/06/2019 05:54:00 AM EDT [facility] Outpatient Referrer: Vanessa Garcia NP 07/27/2019 05:52:00 AM EDT [facility] Outpatient Attender: Nancy SANCHEZ Main Office 07/06/2019 09:30:00 AM EDT [facility] ([facility] Outpatient Attender: GAIL [facility] Office 12:00:00 PM EST [facility] Outpatient Attender: Nancy SANCHEZ Main Office 05/14/2019 11:45:00 AM EST [facility] ([facility] Outpatient Attender: Jose Lewis MD [facility] 05/05/2019 01:32:4 8 PM EST [facility] Outpatient Attender: GAIL Wong Office 12:45:00 PM EST [facility] ([facility] Outpatient Referrer: Vanessa Garcia NP 04/15/2019 09:27:00 PM EST [facility] Outpatient Attender: Nancy SANCHEZ Main Office 04/13/2019 06:45:00 AM EST [facility] ([facility]) Outpatient Attender: Nancy SANCHEZ Main Office 04/08/2019 07:00:00 AM EST [facility] ([facility]) Outpatient Referrer: Vanessa Garcia NP 04/07/2019 04:35:00 PM EST [facility] Outpatient Referrer: Vanessa Garcia NP 04/07/2019 04:34:00 PM EST [facility] Immunizations Vaccine Date Status Description [...] BY MOUTH TWICE A DAY SOLD: 05/11/2020 [facility] 160-4.5 mcg/actuation 05/10/2020 12:00:00 AM EST [...] EVERY DAY SOLD: 05/11/2020 [facility] 100 mg 05/10/2020 12:00:00 AM EST capsule 90 TAKE ONE CAPSULE BY MOUTH THREE TIMES A DAY TAKE ONE CAPSULE BY MOUTH THREE TIMES A DAY SOLD: 05/11/2020 [facility] 2.5 mg 05/10/2020 12:00:00 AM EST tablet 30 TAKE ONE TABLET BY MOUTH AT BEDTIME TAKE ONE TABLET BY MOUTH AT BEDTIME SOLD: 05/11/2020 [facility] 45 mcg/actuation 05/10/2020 12:00:00 AM EST HFA aerosol inha ler 15 INHALE TWO PUFFS BY MOUTH EVERY 4 HOURS NEEDED INHALE TWO PUFFS BY MOUTH EVERY 4 HOURS NEEDED SOLD: 05/11/2020 [facility] 600 mg(1,500mg) -400 unit 05/02/2020 12:00:00 [...] AM EST ORAL active [facility] ([facility]) 12.5 mg 04/28/2020 12:00:00 AM EST capsule 90 TAKE ONE CAPSULE BY MOUTH EVERY DAY TAKE ONE CAPSULE BY MOUTH EVERY DAY SOLD: 04/28/2020 [facility] Hydrochlorothiazide 12.5 MG Oral Capsule Hydrochlorothiazide 04/27/2020 12:00:00 AM EST ORAL active MED[facility] ([facility] 120 mg 04/16/2020 12:00:00 AM EST tablet 30 TAKE ONE TABLET BY MOUTH EVERY DAY FOR ABNORMAL HEART RHYTHM TAKE ONE TABLET BY MOUTH EVERY DAY FOR A BNORMAL HEART RHYTHM SOLD: 04/16/2020 [facility] 100 mg 04/15/2020 12:00:00 AM [...] A DAY FOR SEIZURES SOLD : 04/15/2020 [facility] 200 mg 04/14/2020 12:00:00 AM EST [...] DAY FOR BENIGN PROSTATIC HYPERPLASIA SOLD: 04/14/2020 [facility] Finasteride 5 MG Oral Tablet FINASTERIDE 04/14/2020 12:00:00 AM EST ta blet 30 TAKE ONE TABLET BY MOUTH EVERY DAY FOR BENIGN PROSTATIC HYPERPLASIA *WEAR GLOVES WHEN HANDLING/CRUSHING* TAKE ONE TABLET BY MOUTH EVERY DAY FOR B ENIGN PROSTATIC HYPERPLASIA *WEAR GLOVES WHEN HANDLING/CRUSHING* SOLD: 04/14/2020 [facility] Par[facility] Hydrochloride 10 MG Oral Tablet PAROXETINE HCL 04/14/2020 12:00:00 AM EST tablet 30 TAKE ONE TABLET BY MOUTH EVA RY DAY FOR DEPRESSION TAKE ONE TABLET BY [...] NEEDED FOR SHORTNESS OF BREATH SOLD: 04/14/2020 [facility] Atenolol 25 MG Oral Tablet ATENOLOL 04/14/2020 [...] 12/24/2019 12:00:00 AM E DT active MEDENT ([facility]) 200 mg 12/23/2019 [...] ORAL active M EDENT ([facility] ferrous gluconate 324 MG Oral Tablet Ferrous Gluconate 12:00:00 AM EDT ORAL active [facility] ([facility]) Docusate Sodium 100 MG Oral Capsule Stool Softener 12/12/2019 12:00 :00 AM EDT ORAL active [facility] ([facility] Paroxetine HCL Paroxetine HCL 12/12/2019 12:00:00 AM EDT ORAL active [facility] ([facility]) Cholecalciferol 5000 UNT Oral Capsule Vitamin D3 12/12/2019 12:00:00 AM EDT ORAL active [facility] ([facility]) Tamsulosin hydrochloride 0.4 MG Oral Capsule Tamsulosin HCL 12/12/2019 12:00:00 AM EDT ORAL active [facility] ([facility] Tamsulosin hydrochloride 0.4 MG Oral Capsule Tamsulosin HCL 12/09/2019 12:00:00 AM EDT active MED[facility] ([facility] Tamsulosin hydrochloride 0.4 MG Oral Capsule Tamsulosin HCL 12/09/2019 12:00:00 AM EDT active MED[facility] ([facility] Docusate Sodium 100 MG Oral Capsule [Colace] Colace 11/2019 12:00:00 AM EDT ORAL active [facility] ( [facility] Docusate Sodium 100 MG Oral Capsule [Colace] Colace 11/2019 12:00:00 AM EDT ORAL active [facility] ( [facility] Finasteride 5 MG [...] TABLET BY MOUTH EVERY DAY SOLD: 12/12/2019 [facility] Megestrol Acetate 125 MG/ML Oral Suspension Megestrol Acetat e 11/12/2019 12:00:00 AM EDT ORAL active M EDENT ([facility]) 40 mg 10/11/2019 [...] 10/11/2019 12:00:00 AM EDT ORAL active [facility] ([facility] 120 mg 10/06/2019 [...] 09/20/2019 12:00:00 AM EDT ORAL active [facility] ([facility] Ondansetron 4 MG Oral Tablet [Zofran] Zofran 09/20/2019 12:00:00 AM EDT ORAL active [facility] ([facility]) Paroxetine 20 MG Oral Tablet [Paxil] Paxil 09/20/2019 12:00:00 AM EDT ORAL completed [facility] ([facility] Promethazine Hydrochloride 25 MG Oral Tablet Promethazine HC L 09/17/2019 12:00:00 AM EDT ORAL completed [facility] ([facility] 25 mg 09/17/2019 12:00:00 AM EDT tablet 30 TAKE ONE TABLET BY MOUTH FOUR TIMES A DAY NEEDED TAKE ONE TABLET BY MOUTH FOUR TIMES A DAY NEEDED SO LD: 09/17/2019 [facility] Amiodarone hydrochloride 200 MG Oral Tablet Amiodarone HCL 09/08/2019 12:00:00 AM EDT ORAL active [facility] ([facility]) Atenolol 25 MG Oral Tablet Atenolol 09/08/2019 12:00:00 AM EDT active [facility] ([facility] Oxygen - Home 09/08/2019 12:00:00 AM EDT acti ve [facility] ([facility]) Ketoconazole 20 MG/ML Topical Cream Ketoconazole 09/08/2019 12:00:00 AM EDT active [facility] ([facility]) Diltiazem Hydrochloride 120 MG Oral Tablet Diltiazem HCL 09/08/2019 12:00:00 AM EDT ORAL active [facility] ([facility] Magnesium Chloride 535 MG Delayed Release Oral Tablet [Mag 6 4] Mag64 09/08/2019 12:00:00 AM EDT ORAL completed [facility] ([facility]) 50 mg 09/01/2019 12:00:00 AM EDT tablet 120 TAKE ONE TABLET BY MOUTH EVERY 6 HOURS NEEDED FOR PAIN MAXIMUM DAILY DOSE = 4 TABLETS TAKE ONE TABLET BY MOUTH EVERY 6 HOURS NEEDED FOR PAIN MAXIMUM DAILY DOSE = 4 TABLETS SOLD: 09/03/2019 [facility] tramadol hydrochloride 50 MG Oral Tablet Tramadol HCL 08/31/2019 12:00:00 AM EDT ORAL active MED[facility] ([facility] tramadol hydrochloride 50 MG Oral Tablet Tramadol HCL 08/31/2019 12:00:00 AM EDT ORAL active MEDENT ([facility]) 0.25 mg 08/30/2019 12:00:00 [...] BY MOUTH TWICE A DAY SOLD: 09/17/2019 [facility] Fenofibrate 160 MG Oral Tablet FENOFIBRATE 06/09/2019 [...] EST ORAL active [facility] ([facility]) Amiodarone hydrochloride 200 MG Oral Tablet Amiodarone HCL 04/07/2019 12:00:00 AM EST ORAL completed [facility] ([facility]) Ondansetron 4 MG Oral Tablet [Zofran] Zofran 04/07/2019 12:00:00 AM EST active [facility] ([facility]) Atenolol 25 MG Oral Tablet Atenolol 04/07/2019 12:00:00 AM EST ORAL completed [facility] ([facility]) 25 mg 04/04/2019 12:00:00 AM EST tablet [...] type / Coverage type Policy ID Covered democrat ID Covered democrat's relationship to sierra Policy [place] Plan Information WELLCARE [id number] SP [id number] WELLCARE -O/P [id number] 18 [id number] SELF PAY ONLY [id number] SP [id number] WELLCARE O [id number] S [id number] MEDICARE [id number] SP [id number] A WELLCARE HEALTH PLANS [id number] S [id number] MEDICARE [id number] SP [id number] WELLCARE [id number] SP [id number] WELLCARE MEDICARE [id number] [place] [id number] Today's Options Ppo Commercial [id number] Self [id number] Today's Options PFFS Commercial [id number] Self [id number] Medicare (Part B) Medicare Primary [id number] Self [id number] Wellcare MCR Advantage Commercial [id number] Self [id number] Today's Options PFFS Commercial [id number] Self [id number] Today's Options Ppo Commercial [id number] Self [id number] Wellcare MCR - To Ppo Commercial [id number] Self [id number] [facility] [employer] Commercial [id number] Self [id number] [employer] BC/BS Ppo Medigap Part B [id number] Self [id number] [employer] Ins [employer] Medigap Part B [id number] Self [id number] [facility]-Commercial Plan Medigap Part B [id number] Self [id number] [facility] Medicare Commercial [id number] Self [id number] Today's Options Ppo Commercial [id number] Self [id number] Today's Options PFFS Commercial [id number] Self [id number] Medicare (Part B) Medicare Primary [id number] Self [id number] Wellcare MCR Advantage Commercial [id number] Self [id number] Today's Options PFFS Commercial [id number] Self [id number] Today's Options Ppo Commercial [id number] Self [id number] Wellcare MCR - To Ppo Commercial [id number] Self [id number] Today's Options Ppo Commercial [id number] Self [id number] Today's Options PFFS Commercial [id number] Self [id number] Medicare (Part B) Medicare Primary [id number] Self [id number] Wellcare MCR Advantage Commercial [id number] Self [id number] Today's Options PFFS Commercial [id number] Self [id number] Today's Options Ppo Commercial [id number] Self [id number] Wellcare MCR - To Ppo Commercial [id number] Self [id number] Today's Options Ppo Commercial [id number] Self [id number] Today's Options PFFS Commercial [id number] Self [id number] Medicare (Part B) Medicare Primary [id number] Self [id number] Wellcare MCR Advantage Commercial [id number] Self [id number] Today's Options PFFS Commercial [id number] Self [id number] Today's Options Ppo Commercial [id number] Self [id number] Wellcare MCR - To Ppo Commercial [id number] Self [id number] WELLCARE MEDICARE [id number] 24 [id number] WELLCARE MEDICARE [id number] [place] 05 [id number] Today's Options Ppo Commercial [id number] Self [id number] Today's Options PFFS Commercial [id number] Self [id number] Medicare (Part B) Medicare Primary [id number] Self [id number] Wellcare MCR Advantage Commercial [id number] Self [id number] Today's Options PFFS Commercial [id number] Self [id number] Today's Options Ppo Commercial [id number] Self [id number] Wellcare MCR - To Ppo Commercial [id number] Self [id number] Today's Options Ppo Commercial [id number] Self [id number] Today's Options PFFS Commercial [id number] Self [id number] Medicare (Part B) Medicare Primary [id number] Self [id number] Wellcare MCR Advantage Commercial [id number] Self [id number] Today's Options PFFS Commercial [id number] Self [id number] Today's Options Ppo Commercial [id number] Self [id number] Wellcare MCR - To Ppo Commercial [id number] Self [id number] Today's Options Ppo Commercial [id number] Self [id number] Today's Options PFFS Commercial [id number] Self [id number] Medicare (Part B) Medicare Primary [id number] Self [id number] Wellcare MCR Advantage Commercial [id number] Self [id number] Today's Options PFFS Commercial [id number] Self [id number] Today's Options Ppo Commercial [id number] Self [id number] Wellcare MCR - To Ppo Commercial [id number] Self [id number] Today's Options Ppo Commercial [id number] Self [id number] Today's Options PFFS Commercial [id number] Self [id number] Medicare (Part B) Medicare Primary [id number] Self [id number] Wellcare MCR Advantage Commercial [id number] Self [id number] Today's Options PFFS Commercial [id number] Self [id number] Today's Options Ppo Commercial [id number] Self [id number] Wellcare MCR - To Ppo Commercial [id number] Self [id number] Today's Options Ppo Commercial [id number] Self [id number] Today's Options PFFS Commercial [id number] Self [id number] Medicare (Part B) Medicare Primary [id number] Self [id number] Wellcare MCR Advantage Commercial [id number] Self [id number] Today's Options PFFS Commercial [id number] Self [id number] Today's Options Ppo Commercial [id number] Self [id number] Wellcare MCR - To Ppo Commercial [id number] Self [id number] Today's Options Ppo Commercial [id number] Self [id number] Today's Options PFFS Commercial [id number] Self [id number] Medicare (Part B) Medicare Primary [id number] Self [id number] Wellcare MCR Advantage Commercial [id number] Self [id number] Today's Options PFFS Commercial [id number] Self [id number] Today's Options Ppo Commercial [id number] Self [id number] Wellcare MCR - To Ppo Commercial [id number] Self [id number] Today's Options Ppo Commercial [id number] Self [id number] Today's Options PFFS Commercial [id number] Self [id number] Medicare (Part B) Medicare Primary [id number] Self [id number] Wellcare MCR Advantage Commercial [id number] Self [id number] Today's Options PFFS Commercial [id number] Self [id number] Today's Options Ppo Commercial [id number] Self [id number] Wellcare MCR - To Ppo Commercial [id number] Self [id number] WELLCARE [id number] SP [id number] TODAYS OPTIONS [id number] SP [id number] TODAYS OPTIONS/[place] O [id number] S [id number] Today's Options Ppo Commercial [id number] Self [id number] Today's Options PFFS Commercial [id number] Self [id number] Medicare (Part B) Medicare Primary [id number] Self [id number] Wellcare MCR Advantage Commercial [id number] Self [id number] Today's Options PFFS Commercial [id number] Self [id number] Today's Options Ppo Commercial [id number] Self [id number] Today's Options Ppo Commercial [id number] Self [id number] Today's Options PFFS Commercial [id number] Self [id number] Medicare (Part B) Medicare Primary [id number] Self [id number] Wellcare MCR Advantage Commercial [id number] Self [id number] Today's Options PFFS Commercial [id number] Self [id number] Today's Options Ppo Commercial [id number] Self [id number] Today's Options Ppo Commercial [id number] Self [id number] Today's Options PFFS Commercial [id number] Self [id number] Medicare (Part B) Medicare Primary [id number] Self [id number] Wellcare MCR Advantage Commercial [id number] Self [id number] Today's Options PFFS Commercial [id number] Self [id number] Today's Options Ppo Commercial [id number] Self [id number] Today's Options Ppo Commercial [id number] Self [id number] Today's Options PFFS Commercial [id number] Self [id number] Medicare (Part B) Medicare Primary [id number] Self [id number] Wellcare MCR Advantage Commercial [id number] Self [id number] Today's Options PFFS Commercial [id number] Self [id number] Today's Options Ppo Commercial [id number] Self [id number] Today's Options Ppo Commercial [id number] Self [id number] Today's Options PFFS Commercial [id number] Self [id number] Medicare (Part B) Medicare Primary [id number] Self [id number] Wellcare MCR Advantage Commercial [id number] Self [id number] Today's Options PFFS Commercial [id number] Self [id number] Today's Options Ppo Commercial [id number] Self [id number] Today's Options Ppo Commercial [id number] Self [id number] Today's Options PFFS Commercial [id number] Self [id number] Medicare (Part B) Medicare Primary [id number] Self [id number] Wellcare MCR Advantage Commercial [id number] Self [id number] Today's Options PFFS Commercial [id number] Self [id number] Today's Options Ppo Commercial [id number] Self [id number] Medicare (Part B) Medicare Primary Self [facility]-Commercial [...] Commercial Self Today's Option Medicare Commercial Self [place] [employer]-Today's Opt Commercial Self United [employer] Commercial Self Medicare Medicare Primary Self United [employer] Medigap Part B Self Problems, Conditions, and Diagnoses Code Display Name Description Problem Type Effective Dates Data Source(s) [id number] Pressure ulcer of left foot stage 2 Pres sure ulcer of left foot stage 2 Problem 05/01/2020 12:00:00 AM EST [facility] ([facility] [id number] 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 Problem 05/01/2020 12:00:00 AM EST [facility] ([facility] [id number] Chronic diastolic heart failure Chronic diastoli c heart failure Problem 09/09/2019 12:00:00 AM EDT [facility] ([facility] I4891 Unspecified atrial fibrillation Unspecified atrial fib rillation Diagnosis 04/13/2020 07:26:00 AM [facility] Z1152 Invalid ICD10 Description Invalid ICD10 Description Di agnosis 04/10/2020 03:31:00 PM [facility] Z1159 Encounter for screening for other viral diseases Encounter for screening for other viral diseases Diagnosis 04/03/2020 07:22:00 PM [facility] F0390 Unspecified dementia without behavioral disturbance Unspecified dementia without behavioral disturbance Diagnosis 03/16/2020 07:01:00 AM [facility] G9341 Metabolic encephalopathy Metabolic encephalopathy Diag nosis 03/16/2020 07:01:00 AM [facility] I10 Essential (primary) hypertension Essential (primary) h ypertension Diagnosis 02/22/2020 07:32:00 AM [facility] R569 Unspecified convulsions Unspecified convulsions Diagno sis 02/22/2020 07:32:00 AM [facility] J449 Chronic obstructive pulmonary disease, u nspecified Chronic obstructive pulmonary disease, unspecified Diagnosis 02/17/2020 07:03:00 AM [facility] E8342 Hypomagnesemia Hypomagnesemia Diagnosis 01/22/2020 07:15: 00 AM [facility] E039 Hypothyroidism, unspecified Hypothyroidism, unspecifie d Diagnosis 01/22/2020 07:15:00 AM T [facility] E785 Hyperlipidemia, unspecified Hyperlipidemia, unspecifie d Diagnosis 01/22/2020 07:15:00 AM [facility] G9340 Encephalopathy, unspecified Encephalopathy, unspecifie d Diagnosis 01/22/2020 07:15:00 AM [facility] Y93.89 Activity, other specified ACTIVITY, OTHER SPECIFIED Di agnosis 10/26/2019 04:04:00 PM [facility] Y92.[address] in unspeci fied non-institutional (private) residence as the place of occurrence of the external cause UNSP PLACE IN [facility] NON-INSTITUT (PRIVATE) RESIDENC Diagnosis 10/26/2019 04:04:00 PM [facility] l W18.39XA Other fall on same level, initial encoun ter OTHER FALL ON SAME LEVEL, INITIAL ENCOUNTER Diagnosis 10/26/2019 04:04:00 PM [facility] l Z87.891 Personal history of nicotine dependence PERSONAL HISTORY OF NICOTINE DEPENDENCE Diagnosis 10/26/2019 04:04:00 PM [facility] l Z79.899 Other chcf (current) drug therapy O THER CORRECTION (CURRENT) DRUG THERAPY Diagnosis 10/26/2019 04:04:00 PM [facility] l Z79.01 prison (current) use of anticoagulant s BLOCKERS SKIVER (CURRENT) USE OF ANTICOAGULANTS Diagnosis 10/26/2019 04:04:00 PM [facility] l 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 BLOCKERS SKIVER (CURRENT) USE OF SYSTEMIC STEROIDS Diagnosis 10/26/2019 04:04:00 PM [facility] l 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.51 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 inhaled stero ids BLOCKERS SKIVER (CURRENT) USE OF INHALED STEROIDS Diagnosis 10/26/2019 04:04:00 PM [facility] l Z95.0 Presence of cardiac pacemaker PRESENCE OF CARDIAC PACE MAKER Diagnosis 10/26/2019 04:04:00 PM [facility] K31.84 Gastroparesis GASTROPARESIS Diagnosis 10/26/2019 04:04:00 PM [facility] N18.9 Chronic kidney disease, unspecified CHRONIC KIDN EY DISEASE, UNSPECIFIED Diagnosis 10/26/2019 04:04:00 PM [facility] I48.91 Unspecified atrial fibrillation UNSPECIFIED ATRI AL FIBRILLATION Diagnosis 10/26/2019 04:04:00 PM [facility] R55 Syncope and collapse SYNCOPE AND COLLAPSE Diagnosis 10/26/2019 04:04:00 PM [facility] D62 Acute posthemorrhagic anemia ACUTE POSTHEMORRHAGIC ANE HENRY Diagnosis 10/26/2019 04:04:00 PM [facility] S40.811A Abrasion of right upper arm, initial enc ounter ABRASION OF RIGHT UPPER ARM, INITIAL ENCOUNTER Diagnosis 10/26/2019 04:04:00 PM [facility] S40.812A Abrasion of left upper arm, initial enco unter ABRASION OF LEFT UPPER ARM, INITIAL ENCOUNTER Diagnosis 10/26/2019 04:04:00 PM EDT [facility] J44.9 Chronic obstructive pulmonary disease, u nspecified CHRONIC OBSTRUCTIVE PULMONARY DISEASE, UNSPECIFIED Diagnosis 10/26/2019 04:04:00 PM EDT [facility] 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, or unspecified chronic kidney disease HYPERTENSIVE CHRONIC KIDNEY DISEASE W STG 1-4/UNSP Diagnosis 10/26/2019 04:04:00 PM EDT [facility] S09.90XA Unspecified injury of head, initial enco unter UNSPECIFIED INJURY OF HEAD, INITIAL ENCOUNTER Diagnosis 10/26/2019 04:04:00 PM EDT [facility] I48.91 Unspecified atrial fibrillation Unspecified atri al fibrillation Diagnosis 05/05/2019 01:32:48 PM EST [facility] Surgeries/Procedures Procedure Description Date Indications Data Source(s) DEBRIDEMENT SUBCUTANEOUS TISSUE 20 SQ CM/< 04/28/2020 12:00:00 AM EST [facility] ([facility] ELECTROENCEPHALOGRAM W/REC AWAKE&ASLEEP 02/23/2020 12: 00:00 AM EST [facility] ([facility] ELECTROENCEPHALOGRAM W/REC AWAKE&ASLEEP 02/23/2020 12: 00:00 AM EST [facility] ([facility]) DEBRIDEMENT NAIL ANY METHOD 6/> 12/23/2019 12:00:00 AM EDT [facility] ([facility] 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 2019 12:00:00 AM EDT [facility] ([facility] ECG ROUTINE ECG W/LEAST 12 LDS W/I&R 09/09/2019 12:00: 00 AM EDT [facility] ([facility] ECG ROUTINE ECG W/LEAST 12 LDS W/I&R 07/06/2019 12:00: 00 AM EDT [facility] ([facility]) ECG ROUTINE ECG W/LEAST 12 LDS W/I&R 04/08/2019 12:00: 00 AM EST [facility] ([facility] Results ID Date Data Source [id number] 05/19/2020 07:44:00 PM EST [facility] Name Value Range Interpretation Code Description Data Pennie rce(s) Supporting Document(s) SARS-CoV-2 (COVID 19) NEGATIVE - SARS-CoV-2 (COVID19) [facility] This lab was ordered by [facility] a nd reported by [facility]. ID Date Data Source [id number] 05/19/2020 11:18:00 AM EST [facility] ([facility] Name Value Range Interpretation Code Description Data Pennie rce(s) Supporting Document(s) Laboratory test finding (navigational concept) Laboratory test r esult Normal (applies to non-numeric results) [facility] ([facility] <content>QUANTITATIVE RESULT QU ALITATIVE INTERPRETATION</content>
<content> </content>
<content><5.0 IU/L NEGATIVE</content>
<content>5.0 - 25.0 IU/L INDETERMINATE</content>
<content>>25.0 IU/L POSITIVE</content>
<content></content> ID Date Data Source [id number] 05/19/2020 11:11:00 AM EST [facility] ([facility] Name Value Range Interpretation Code Description Data Pennie rce(s) Supporting Document(s) Platelets [#/volume] in Blood by Estimate Laboratory test result Normal (applies to non-numeric results) [facility] ([facility] Lactate [Mass/volume] in Serum or Plasma 2.2 mmol/L 0.4-2.0 Above upper panic limits [facility] ([facility] ) Y/N query for Sepsis Lactate Rule: Y ID Date Data Source [id number] 05/19/2020 11:11:00 AM EST [facility] Name Value Range Interpretation Code Description Data Pennie rce(s) Supporting Document(s) Neutrophils 71 % 28-66 Above high normal [facility] ([facility] Monocytes 10 % 0-5 Above high normal [facility] ([facility] Bands 6 % Normal (applies to non-numeric resul ts) [facility] ([facility] Lymphocytes 11 % 16-44 Below low normal [facility] ([facility] Anisocytosis Laboratory test result Normal (applies to non -numeric results) [facility] ([facility] Atypical Lymph 2 % 0-5 Normal (applies to non-numeric r esults) [facility] ([facility] Hypochromasia Laboratory test result Normal (applies t o non-numeric results) [facility] ([facility] Macrocytosis Laboratory test result Normal (applies to non -numeric results) [facility] ([facility] ID Date Data Source [id number] 05/19/2020 11:11:00 AM EST [facility] ([facility] Name Value Range Interpretation Code Description Data Pennie rce(s) Supporting Document(s) White Blood Count 12.1 10 4.0-10.0 Above high normal [facility] ([facility] A Pathologist review of this differentia l can help in the evaluation of a differential diagnosis. Please order a Pathologist Review (PERISM) if deemed necessary. Results are subject to change if a Pathologist Review is performed. Hemoglobin 11.1 g/dL 13.5-17.5 Below low normal [facility] ( [facility] Red Blood Count 3.89 10 4.30-6.10 Below low normal [facility] ([facility] Hematocrit 34.7 % 42.0-52.0 Below low normal [facility] ( [facility] Mean Corpuscular Hemoglobin 28.5 pg 27.0-33.0 Norm al (applies to non-numeric results) [facility] ([facility] ) Mean Corpuscular Volume 89.2 fl 80.0-96.0 Normal ( applies to non-numeric results) [facility] ([facility] ) Red Cell Distribution Width 18.7 % 11.5-14.5 Above high normal [facility] ([facility] Mean Corpuscular HGB Conc 32.0 g/dL 32.0-36.5 Normal (applies to non-numeric results) [facility] ([facility] ) Platelet Count, Automated 192 10 150-450 Normal (applies to non-numeric results) [facility] ([facility] ) Nucleated Red Blood Cell % 0.0 % 0-0 Normal (applies to n on-numeric results) [facility] ID Date Data Source [id number] 05/19/2020 11:11:00 AM EST [facility] ([facility] Name Value Range Interpretation Code Description Data Pennie rce(s) Supporting Document(s) Thyrotropin [Units/volume] in Serum or Plasma 1.340 uIU/ML 0. 358-3.740 Normal (applies to non-numeric results) [facility] ([facility] ID Date Data Source [id number] 05/19/2020 11:11:00 AM EST [facility] ([facility] Name Value Range Interpretation Code Description Data Pennie rce(s) Supporting Document(s) Ast/Sgot 14 U/L 7-37 Normal (applies to non-numeric resul ts) [facility] ([facility] Alkaline Phosphatase 92 U/L 45-117 Normal (applies to non-num romeo results) [facility] ([facility] Bilirubin,Total 0.4 mg/dL 0.2-1.0 Normal (applies to non-numeric results) [facility] ([facility] Alt/SGPT 15 U/L 12-78 Normal (applies to non-numeric resul ts) [facility] ([facility] Total Protein 5.5 GM/DL 6.4-8.2 Below low normal [facility] ([facility] Bilirubin,Direct 0.1 mg/dL 0.0-0.2 Normal (applies to non-numeric results) [facility] ([facility] Albumin/Globulin Ratio 1.0 Normal (applies to non-n umeric results) [facility] ([facility] Albumin 2.7 GM/DL 3.2-5.2 Below low normal [facility] ( [facility] ID Date Data Source [id number] 05/19/2020 11:11:00 AM EST [facility] Name Value Range Interpretation Code Description Data Pennie rce(s) Supporting Document(s) Ammonia [Mass/volume] in Blood 22 uMOL/L N ormal (applies to non-numeric results) [facility] ([facility] ) ID Date Data Source [id number] 05/19/2020 11:11:00 AM EST [facility] Name Value Range Interpretation Code Description Data Pennie rce(s) Supporting Document(s) Appearance, Urine RFX Laboratory test result Nor mal (applies to non-numeric results) [facility] ([facility] Color, Urine RFX Laboratory test result Normal ( applies to non-numeric results) [facility] ([facility] ) PH,Urine RFX 7.0 units 5.0-9.0 Normal (applies to non-numeric res ults) [facility] ([facility] Specific [place] Auto RFX 1.005 1.002-1.035 Nor mal (applies to non-numeric results) [facility] ([facility] ) Protein, Urine Auto RFX Laboratory test result N ormal (applies to non-numeric results) [facility] ([facility] ) Glucose, Urine (Ua) Auto RFX Laboratory test result Normal (applies to non- numeric results) [facility] ([facility] ) Ketone, Urine Auto RFX Laboratory test result No rmal (applies to non-numeric results) [facility] ([facility] ) Bilirubin, Urine Auto RFX Laboratory test result Normal (applies to non- numeric results) [facility] ([facility] ) Urobilinogen, Urine Auto RFX 0.2 mg/dL 0.0-2.0 Nor mal (applies to non-numeric results) [facility] ([facility] ) Nitrite, Urine Auto RFX Laboratory test result N ormal (applies to non-numeric results) [facility] ([facility] ) Leukocyte Esterase Ur Auto RFX Laboratory test result Normal (applies to non- numeric results) [facility] ([facility] ) WBC, Urine Auto RFX 0 /HPF 0-3 Normal (applies to non-nume cristian results) [facility] ([facility] RBC, Urine Auto RFX 0 /HPF 0-3 Normal (applies to non-nume cristian results) [facility] ([facility] Blood, Urine Blood RFX Laboratory test result No rmal (applies to non-numeric results) [facility] ([facility] ) Squam Epithelial Cell Ur Aurfx 0 /HPF 0-6 N ormal (applies to non-numeric results) [facility] ([facility] ) Hyaline Cast, Urine Auto RFX 0 /LPF 0-1 Normal (appl ies to non-numeric results) [facility] ([facility] Bacteria, Urine Auto RFX Laboratory test result Normal (applies to non-numeric results) [facility] ([facility] ) ID Date Data Source [id number] 05/19/2020 11:11:00 AM EST [facility] ([facility] Name Value Range Interpretation Code Description Data Pennie rce(s) Supporting Document(s) Venous PH 7.422 units 7.330-7.430 Normal (applies to non-numeric res ults) [facility] ([facility] Venous Partial Pressure Co2 62.6 mmHg 38.0-50.0 Above high normal [facility] ([facility] Venous Total Co2 41.8 meq/L 24.0-28.0 Above high normal M [facility] ([facility] Venous Partial Pressure O2 237.6 mmHg 30.0-50.0 Above high normal [facility] ([facility] Venous Base Excess 13.1 Above high normal [facility] ([facility] Venous Hco3 39.9 meq/L 23.0-27.0 Above high normal [facility] ([facility] Venous O2 Saturation 99.1 % 60.0-80.0 Above high normal [facility] ([facility] Venous Standard Hco3 36.9 meq/L Normal (applies to non-num romeo results) [facility] ([facility] ID Date Data Source [id number] 05/19/2020 11:09:00 AM EST [facility] ([facility] Name Value Range Interpretation Code Description Data Pennie rce(s) Supporting Document(s) Laboratory test finding (navigational concept) 177 mg/dL 7 0-105 Above high normal [facility] ([facility] ) Laboratory test finding (navigational concept) 32.0 % 3 8.0-51.0 Below low normal [facility] ([facility] ) Laboratory test finding (navigational concept) 144 meq/L 1 36-145 Normal (applies to non-numeric results) [facility] ([facility] Laboratory test finding (navigational concept) 3.1 meq/L 3 .5-5.1 Below low normal [facility] ([facility] Laboratory test finding (navigational concept) 4.3 mg/dL 4 .5-5.3 Below low normal [facility] ([facility] ) Laboratory test finding (navigational concept) 41.0 MM/L 2 3.0-27.0 Above high normal [facility] ([facility] ) Laboratory test finding (navigational concept) 91 meq/L 98-109 Below low normal [facility] ([facility] Laboratory test finding (navigational concept) 20 mg/dL 8 -26 Normal (applies to non-numeric results) [facility] ([facility]) Laboratory test finding (navigational concept) 1.3 mg/dL 0 .6-1.3 Normal (applies to non-numeric results) [facility] ([facility] ID Date Data Source [id number] 05/05/2020 12:51:00 PM EST [facility] Name Value Range Interpretation Code Description Data Pennie rce(s) Supporting Document(s) Leukocytes [#/volume] in Blood by Automated count 12.6 x10E3/uL 3.4-10.8 Above high normal [facility] ([facility] ) A courtesy copy of this report has been sent to the patient, Hemoglobin [Mass/volume] in Blood 11.5 g/dL 13.0-17.7 Below low nor mal [facility] ([facility] A courtesy copy of this report has been sent to the patient, Erythrocytes [#/volume] in Blood by Automated count 4.00 x10E6/u L 4.14-5.80 Below low normal [facility] ([facility] ) A courtesy copy of this report has been sent to the patient, Erythrocyte mean corpuscular volume [Entitic volume] by Auto mated count 90 fL 79-97 [facility] ([facility] [place] [facility] A courtesy copy of this report has been sent to the patient, Hematocrit [Volume Fraction] of Blood by Automated count 35.9 % 37.5-51.0 Below low normal [facility] ([facility] ) A courtesy copy of this report has been sent to the patient, Erythrocyte mean corpuscular hemoglobin [Entitic mass] by Automated count 28.8 pg 26.6-33.0 [facility] ([facility] A courtesy copy of this report has been sent to the patient, Platelets [#/volume] in Blood by Automated count 179 x10E3/uL 150-450 [facility] ([facility] A courtesy copy of this report has been sent to the patient, Erythrocyte distribution width [Ratio] by Automated count 18.1 % 11.6-15.4 Above high normal [facility] ([facility] ) A courtesy copy of this report has been sent to the patient, Erythrocyte mean corpuscular hemoglobin concentration [Mass/volume] by Automated count 32.0 g/dL 31.5-35.7 [facility] A courtesy copy of this report has been sent to the patient, Lymphs 8 % [facility] ([facility] A courtesy copy of this report has been sent to the patient, Neutrophils 68 % [facility] ([facility] A courtesy copy of this report has been sent to the patient, Eosinophils/100 leukocytes in Blood by Automated count 0 % [facility] ([facility] A courtesy copy of this report has been sent to the patient, Basophils/100 leukocytes in Blood by Automated count 1 % [facility] ([facility] A courtesy copy of this report has been sent to the patient, Monocytes/100 leukocytes in Blood by Automated count 14 % [facility] ([facility] A courtesy copy of this report has been sent to the patient, Neutrophils [#/volume] in Blood by Automated count 8.6 x10E3/uL 1.4-7.0 Above high normal [facility] ([facility] ) A courtesy copy of this report has been sent to the patient, Immature cells [#/volume] in Blood Laboratory test result [facility] ([facility] A courtesy copy of this report has been sent to the patient, Monocytes [#/volume] in Blood 1.8 x10E3/uL 0.1-0.9 Above high norm al [facility] ([facility] A courtesy copy of this report has been sent to the patient, Lymphocytes [#/volume] in Blood 1.0 x10E3/uL 0.7-3.1 [facility] ([facility] A courtesy copy of this report has been sent to the patient, Eosinophils [#/volume] in Blood by Automated count 0.0 x10E3/uL 0.0-0 .4 [facility] ([facility] A courtesy copy of this report has been sent to the patient, Immature granulocytes/100 leukocytes in Blood by Autom ated count Laboratory test result [facility] ([facility] A courtesy copy of this report has been sent to the patient, Basophils [#/volume] in Blood by Automated count 0.1 x10E3/uL 0.0-0.2 [facility] ([facility] A courtesy copy of this report has been sent to the patient, Nucleated erythrocytes/100 leukocytes [Ratio] in Blood by Automated count Laboratory test result [facility] ([facility] A courtesy copy of this report has been sent to the patient, Immature granulocytes [#/volume] in Blood by Automated count Laboratory test result [facility] ([facility] A courtesy copy of this report has been sent to the patient, Metamyelocytes 4 % 0-0 Above high normal [facility] ([facility] A courtesy copy of this report has been sent to the patient, Bands Laboratory test result [facility] ([facility] A courtesy copy of this report has been sent to the patient, Morphology [Interpretation] in Blood Narrative Laboratory test result [facility] ([facility] A courtesy copy of this report has been sent to the patient, Myelocytes 5 % 0-0 Above high normal [facility] ([facility] A courtesy copy of this report has been sent to the patient, Promyelocytes Laboratory test result [facility] ([facility] A courtesy copy of this report has been sent to the patient, Laboratory test finding (navigational concept) Laboratory test result [facility] ([facility] A courtesy copy of this report has been sent to the patient, Laboratory test finding (navigational concept) Laboratory test result [facility] ([facility] A courtesy copy of this report has been sent to the patient, Laboratory test finding (navigational concept) Laboratory test result [facility] ([facility] A courtesy copy of this report has been sent to the patient, ID Date Data Source [id number] 04/25/2020 02:56:00 PM EST [facility] ([facility] Name Value Range Interpretation Code Description Data Pennie rce(s) Supporting Document(s) Thyrotropin [Units/volume] in Serum or Plasma 1.270 uIU/mL 0.450-4.50 0 [facility] ([facility] ID Date Data Source [id number] 04/25/2020 02:56:00 PM EST [facility] ([facility] Name Value Range Interpretation Code Description Data Pennie rce(s) Supporting Document(s) Glucose [Mass/volume] in Serum or Plasma 193 mg/dL 65-99 Above high normal [facility] ([facility] BUN 17 mg/dL 8-27 [facility] (On [facility] eGFR If Africn Am 91 mL/min/1.73 [facility] ([facility] Creatinine [Mass/volume] in Serum or Plasma 0.86 mg/dL 0.76-1.27 [facility] ([facility] eGFR If NonAfricn Am 79 mL/min/1.73 [facility] ([facility] Potassium [Moles/volume] in Serum or Plasma 4.2 mmol/L 3.5-5.2 [facility] ([facility] Urea nitrogen/Creatinine [Mass Ratio] in Serum or Plasma 20 1 0-24 [facility] ([facility] Sodium [Moles/volume] in Serum or Plasma 144 mmol/L 134-144 [facility] ([facility] Carbon dioxide, total [Moles/volume] in Serum or Plasma 30 mmol/ L 20-29 Above high normal [facility] ([facility] Chloride [Moles/volume] in Serum or Plasma 102 mmol/L 96-106 [facility] ([facility] Albumin [Mass/volume] in Serum or Plasma 3.4 g/dL 3.6-4.6 Below low normal [facility] ([facility] Protein [Mass/volume] in Serum or Plasma 5.2 g/dL 6.0-8.5 Below low normal [facility] ([facility] Calcium [Mass/volume] in Serum or Plasma 8.3 mg/dL 8.6-10.2 Below low normal [facility] ([facility] Albumin/Globulin [Mass Ratio] in Serum or Plasma 1.9 1.2-2.2 [facility] ([facility] Bilirubin.total [Mass/volume] in Serum or Plasma 0.3 mg/dL 0.0-1.2 [facility] ([facility] Globulin [Mass/volume] in Serum by calculation 1.8 g/dL 1.5-4.5 [facility] ([facility] Alkaline phosphatase [Enzymatic activity/volume] in Serum or Plasma 76 IU/L 39-117 [facility] Alanine aminotransferase [Enzymatic activity/volume] in Seru m or Plasma 14 IU/L 0-44 [facility] Aspartate aminotransferase [Enzymatic activity/volume] in Serum or Plasma 15 IU/L 0-40 [facility] ID Date Data Source [id number] 04/25/2020 02:56:00 PM EST [facility] ([facility] Name Value Range Interpretation Code Description Data Pennie rce(s) Supporting Document(s) Erythrocytes [#/volume] in Blood by Automated count 4.03 x10E6/u L 4.14-5.80 Below low normal [facility] ([facility] ) Few schistocytes. Leukocytes [#/volume] in Blood by Automated count 12.3 x10E3/uL 3.4-10.8 Above high normal [facility] ([facility] ) Erythrocyte mean corpuscular volume [Entitic volume] by Auto mated count 89 fL 79-97 [facility] Hemoglobin [Mass/volume] in Blood 11.8 g/dL 13.0-17.7 Below low nor mal [facility] ([facility] Hematocrit [Volume Fraction] of Blood by Automated count 36.0 % 37.5-51.0 Below low normal [facility] ([facility] ) Erythrocyte mean corpuscular hemoglobin concentration [Mass/volume] by Automated count 32.8 g/dL 31.5-35.7 [facility] ([facility] Erythrocyte mean corpuscular hemoglobin [Entitic mass] by Automated count 29.3 pg 26.6-33.0 [facility] ([facility] Platelets [#/volume] in Blood by Automated count 182 x10E3/uL 150-450 [facility] ([facility] Erythrocyte distribution width [Ratio] by Automated count 18.2 % 11.6-15.4 Above high normal [facility] ([facility] ) Lymphs 6 % [facility] (On [facility] of [facility] Monocytes/100 leukocytes in Blood by Automated count 14 % [facility] ([facility] Neutrophils 72 % [facility] ([facility] Eosinophils/100 leukocytes in Blood by [...] result [facility] Immature granulocytes [#/volume] in Blood by Automated count Laboratory test result [facility] ([facility] Basophils [#/volume] in Blood by Automated count 0.2 x10E3/uL 0.0-0.2 [facility] ([facility] Morphology [Interpretation] in Blood Narrative Laboratory test result [facility] ([facility] Manual differential was performed. Nucleated erythrocytes/100 leukocytes [Ratio] in Blood by Automated count Laboratory test result [facility] ([facility] Myelocytes 5 % 0-0 Above high normal [facility] ([facility] Metamyelocytes 1 % 0-0 Above high normal [facility] ([facility] Bands Laboratory test result [facility] ([facility] Laboratory test finding (navigational concept) Laboratory test result [facility] ([facility] Laboratory test finding (navigational concept) Laboratory test result [facility] ([facility] Promyelocytes Laboratory test result [facility] ([facility] Laboratory test finding (navigational concept) Laboratory test result [facility] ([facility] ID Date Data Source [id number] 04/25/2020 02:56:00 PM EST [facility] ([facility] Name Value Range Interpretation Code Description Data Pennie rce(s) Supporting Document(s) Magnesium [Mass/volume] in Serum or Plasma 1.7 mg/dL 1.6-2.3 [facility] ([facility] ID Date Data Source [id number] 04/13/2020 09:42:00 AM [facility] Name Value Range Interpretation Code Description Data Pennie rce(s) Supporting Document(s) COMPREHENSIVE METABOLIC PANEL [facility] COMPREHENSIVE METABOLIC PANEL Sodium [Moles/volume] in Serum or Plasma 142 mEq/L 134 - 153 [facility] Potassium [Moles/volume] in Serum or Plasma 4.1 mEq/L 3.6 - 5.0 [facility] Chloride [Moles/volume] in Serum or Plasma 104 mEq/L 98 - 107 [facility] Carbon dioxide, total [Moles/volume] in Serum or Plasma 35 MEQ/L 22 - 30 H [facility] Glucose [Mass/volume] in Serum or Plasma 129 MG/DL 65 - 110 H [facility] BUN 28 MG/DL 7 - 21 H [facility] Creatinine [Mass/volume] in Serum or Plasma 0.8 MG/DL 0.7 - 1.5 [facility] BUN/CREAT 35 8 - 27 H [facility] Protein [Mass/volume] in Serum or Plasma 4.7 G/DL 6.3 - 8.2 L [facility] Albumin [Mass/volume] in Serum or Plasma 3.2 G/DL 3.9 - 5.0 L [facility] Globulin [Mass/volume] in Serum by calculation 1.5 GM/DL 2.4 - 3.2 L [facility] A/G RATIO 2.1 0.8 - 2.0 H [facility] Calcium [Mass/volume] in Serum or Plasma 8.0 MG/DL 8.4 - 10.2 L [facility] Bilirubin.total [Mass/volume] in Serum or Plasma <0.7 MG/DL 0.2 - 1.3 [facility] Alkaline phosphatase [Enzymatic activity/volume] in Serum or Plasma 61 U/L 38 - 126 [facility] Aspartate aminotransferase [Enzymatic activity/volume] in Se rum or Plasma 9 U/L 5 - 40 [facility] Alanine aminotransferase [Enzymatic activity/volume] in Seru m or Plasma 7 U/L 7 - 56 [facility] Anion gap 3 in Serum or Plasma 3.0 mmol/L 8.0 - 16.0 L [facility] AGE 84 yrs [facility] al NON-AA GFR >60 mL/min [facility] ital AFR AMER GFR >60 mL/min [facility] Ho spital Male GFR In terprentation [...] >32 mL/min Normal ID Date Data Source [id number] 04/13/2020 08:37:00 AM EST [facility] Name Value Range Interpretation Code Description Data Pennie rce(s) Supporting Document(s) CBC NO DIFF [facility] ital COMPLETE BLOOD COUNT Leukocytes [#/volume] in Blood by Automated count 9.5 10^3/uL 4.2 - 1 1.0 [facility] Erythrocytes [#/volume] in Blood by Automated count 3.79 10^6/uL 4. 50 - 6.30 L [facility] Hemoglobin [Mass/volume] in Blood 11.0 g/dL 14.0 - 16.0 L [facility] Hematocrit [Volume Fraction] of Blood by Automated count 33.8 % 4 1.0 - 51.0 L [facility] Erythrocyte mean corpuscular volume [Entitic volume] by Auto mated count 89.2 fL 80.0 - 94.0 [facility] Erythrocyte mean corpuscular hemoglobin [Entitic mass] by Automated count 29.0 pg 27.0 - 34.0 [facility] Erythrocyte mean corpuscular hemoglobin concentration [Mass/volume] by Automated count 32.5 g/dL 31.0 - 36.0 [facility] Erythrocyte distribution width [Ratio] by Automated count 19.4 % 11.5 - 14.8 H [facility] Platelets [#/volume] in Blood by Automated count 177 10^3/uL 150 - 45 0 [facility] Platelet mean volume [Entitic volume] in Blood by Automated count 11.0 fL 7.4 - 10.4 H [facility] ID Date Data Source [id number] 04/10/2020 11:45:00 AM EST [facility] Name Value Range Interpretation Code Description Data Pennie rce(s) Supporting Document(s) SARS coronavirus 2 RNA Not Detected [facility] This lab was ordered by [facility] kathleen and reported by [email or web address]. ID Date Data Source [id number] 04/13/2020 06:29:00 AM EST [facility] Name Value Range Interpretation Code Description Data Pennie rce(s) Supporting Document(s) SARS-CoV-2, EUGENE Not Detected Not Detected [facility] This nucleic acid amplification test was developed and its performancecharacteristics determined by [facility]. Nucleic acidamplification tests include PCR and TMA. [...] assay. ORDER COVID 19 2 DAY YES [facility] ID Date Data Source [id number] 04/06/2020 09:00:00 AM [facility] Name Value Range Interpretation Code Description Data [facility](s) Supporting Document(s) SARS coronavirus 2 RNA Not Detected [facility] This lab was ordered by [facility] Rj wang and reported by [email or web address]. ID Date Data Source [id number] 04/08/2020 06:00:00 PM EST [facility] Name Value Range Interpretation Code Description Data Pennie rce(s) Supporting Document(s) SARS-CoV-2, EUGENE Not Detected Not Detected [facility] Testing was performed using the pradeep(R) SARS-CoV-2 test.This nucleic acid amplification test was developed and its performancecharacteristics determined by [facility]. Nucleic acidamplification tests include PCR and TMA. [...] assay. ORDER COVID 19 2 DAY YES [facility] ID Date Data Source [id number] 04/03/2020 12:46:00 PM EST [facility] Name Value Range Interpretation Code Description Data Pennie rce(s) Supporting Document(s) SARS coronavirus 2 RNA Not Detected [facility] This lab was ordered by [facility] kathleen and reported by [email or web address]. ID Date Data Source [id number] 04/06/2020 08:59:00 AM EST [facility] Name Value Range Interpretation Code Description Data Pennie rce(s) Supporting Document(s) SARS-CoV-2, EUGENE Not Detected Not Detected [facility] This nucleic acid amplification test was developed and its performancecharacteristics determined by [facility]. Nucleic acidamplification tests include PCR and TMA. [...] assay. ORDER COVID 19 2 DAY NO [facility] ID Date Data Source [id number] 03/30/2020 10:05:00 AM EST [facility] Name Value Range Interpretation Code Description Data Pennie rce(s) Supporting Document(s) SARS coronavirus 2 RNA [facility] This lab was ordered by [facility] kathleen and reported by [email or web address]. ID Date Data Source [id number] 04/01/2020 04:43:00 PM EST [facility] Name Value Range Interpretation Code Description Data Pennie rce(s) Supporting Document(s) SARS-CoV-2, EUGENE Not Detected Not Detected [facility] This nucleic acid amplification test was developed and its performancecharacteristics determined by [facility]. Nucleic acidamplification tests include PCR and TMA. [...] in this assay. ID Date Data Source [id number] 03/27/2020 09:50:00 AM EST [facility] Name Value Range Interpretation Code Description Data Pennie rce(s) Supporting Document(s) SARS coronavirus 2 RNA [facility] and reported by [email or web address]. ID Date Data Source [id number] 03/30/2020 10:50:00 PM EST [facility] Name Value Range Interpretation Code Description Data [facility] rce(s) Supporting Document(s) SARS-CoV-2, EUGENE Not Detected Not Detected [facility] This nucleic acid amplification test was developed and its performancecharacteristics determined by [facility]. Nucleic acidamplification tests include PCR and TMA. [...] in this assay. ID Date Data Source [id number] 03/23/2020 01:00:00 PM EST [facility] Name Value Range Interpretation Code [facility]) SARS coronavirus 2 RNA [facility] This lab was ordered by [facility] kathleen and reported by [email or web address]. ID Date Data Source [id number] 03/25/2020 04:09:00 PM EST [facility] Name Value Range Interpretation Code Description Data [facility] rce(s) Supporting Document(s) SARS-CoV-2, EUGENE Not Detected Not Detected [facility] This nucleic acid amplification test was developed and its performancecharacteristics determined by [facility]. Nucleic acidamplification tests include PCR and TMA. [...] in this assay. ID Date Data Source [id number] 03/16/2020 08:23:00 AM EST [facility] Name Value Range Interpretation Code Description Data Pennie rce(s) Supporting Document(s) COMPREHENSIVE METABOLIC PANEL [facility] COMPREHENSIVE METABOLIC PANEL Sodium [Moles/volume] in Serum or Plasma 145 mEq/L 134 - 153 [facility] Potassium [Moles/volume] in Serum or Plasma 3.9 mEq/L 3.6 - 5.0 [facility] Chloride [Moles/volume] in Serum or Plasma 107 mEq/L 98 - 107 [facility] Carbon dioxide, total [Moles/volume] in Serum or Plasma 35 MEQ/L 22 - 30 H [facility] Glucose [Mass/volume] in Serum or Plasma 113 MG/DL 65 - 110 H [facility] BUN 19 MG/DL 7 - 21 [facility] Creatinine [Mass/volume] in Serum or Plasma 0.9 MG/DL 0.7 - 1.5 [facility] BUN/CREAT 21 8 - 27 [facility] al Protein [Mass/volume] in Serum or Plasma 4.6 G/DL 6.3 - 8.2 L [facility] Albumin [Mass/volume] in Serum or Plasma 3.1 G/DL 3.9 - 5.0 L [facility] Globulin [Mass/volume] in Serum by calculation 1.5 GM/DL 2.4 - 3.2 L [facility] A/G RATIO 2.1 0.8 - 2.0 H [facility] al Calcium [Mass/volume] in Serum or Plasma 8.3 MG/DL 8.4 - 10.2 L [facility] Bilirubin.total [Mass/volume] in Serum or Plasma <0.7 MG/DL 0.2 - 1.3 [facility] Alkaline phosphatase [Enzymatic activity/volume] in Serum or Plasma 58 U/L 38 - 126 [facility] Aspartate aminotransferase [Enzymatic activity/volume] in Serum or Plasma 11 U/L 5 - 40 [facility] Alanine aminotransferase [Enzymatic activity/volume] in Seru m or Plasma 11 U/L 7 - 56 [facility] Anion gap 3 in Serum or Plasma 3.0 mmol/L 8.0 - 16.0 L [facility] 84 [facility] >60 mL/min [facility] ital AFR AMER GFR >60 mL/min [facility] Ho spital Male GFR In terprentation [...] >32 mL/min Normal ID Date Data Source [id number] 03/16/2020 07:58:00 AM EST [facility] Name Value Range Interpretation Code Description Data Pennie rce(s) Supporting Document(s) CBC NO DIFF [facility] ital COMPLETE BLOOD COUNT Leukocytes [#/volume] in Blood by Automated count 9.1 10^3/uL 4.2 - 1 1.0 [facility] Erythrocytes [#/volume] in Blood by Automated count 3.49 10^6/uL 4. 50 - 6.30 L [facility] Hemoglobin [Mass/volume] in Blood 10.1 g/dL 14.0 - 16.0 L [facility] Hematocrit [Volume Fraction] of Blood by Automated count 31.6 % 4 1.0 - 51.0 L [facility] Erythrocyte mean corpuscular volume [Entitic volume] by Auto mated count 90.5 fL 80.0 - 94.0 [facility] Erythrocyte mean corpuscular hemoglobin [Entitic mass] by Automated count 28.9 pg 27.0 - 34.0 [facility] Erythrocyte mean corpuscular hemoglobin concentration [Mass/volume] by Automated count 32.0 g/dL 31.0 - 36.0 [facility] Erythrocyte distribution width [Ratio] by Automated count 19.3 % 11.5 - 14.8 H [facility] Platelets [#/volume] in Blood by Automated count 166 10^3/uL 150 - 45 0 [facility] Platelet mean volume [Entitic volume] in Blood by Automated count 10.5 fL 7.4 - 10.4 H [facility] ID Date Data Source [id number] 02/26/2020 06:30:00 AM [facility] Name Value Range Interpretation Code Description Data Pennie rce(s) Supporting Document(s) Levetiracetam [Mass/volume] in Serum or Plasma 21.8 ug/mL 10.0-40.0 [facility] This test was developed and its performa nce characteristicsdetermined by [facility]. It has not been cleared or approvedby the Food and Drug Administration. ID Date Data Source [id number] 02/17/2020 10:37:00 AM EST [facility] ([facility]) Name Value Range Interpretation Code Description Data Pennie rce(s) Supporting Document(s) Calcium [Mass/volume] in Serum or Plasma 8.4 [facility] ([facility]) Alanine aminotransferase [Enzymatic activity/volume] in Serum or Pl asma 8 [facility] ([facility]) Albumin [Mass/volume] in Serum or Plasma 2.9 [facility] ([facility]) Carbon dioxide, total [Moles/volume] in Serum or Plasma 32 [facility] ([facility]) Chloride [Moles/volume] in Serum or Plasma 106 [facility] ([facility]) Potassium [Moles/volume] in Serum or Plasma 4.1 [facility] ([facility]) Alkaline phosphatase [Enzymatic activity/volume] in Serum or Plasma 7 1 [facility] ([facility]) Protein [Mass/volume] in Serum or Plasma 4.3 [facility] ([facility]) Urea nitrogen [Mass/volume] in Serum or Plasma 18 [facility] ([facility]) Sodium 143 [facility] ([facility]) Aspartate aminotransferase [Enzymatic activity/volume] in Serum or Plasma 12 [facility] ([facility]) Glucose 160 65-110 [facility] ([facility]) Creatinine For GFR 1.0 [facility] ID Date Data Source [id number] 02/17/2020 10:37:00 AM EST [facility] ([facility]) Name Value Range Interpretation Code Description Data Pennie rce(s) Supporting Document(s) Iron 61 42-135 [facility] ([facility]) Iron binding capacity [Mass/volume] in Serum or Plasma 164 [facility] ([facility]) Tibc % Saturation 37 [facility] ([facility]) ID Date Data Source [id number] 02/19/2020 09:10:00 PM [facility] Name Value Range Interpretation Code Description Data Pennie rce(s) Supporting Document(s) Levetiracetam [Mass/volume] in Serum or Plasma 29.4 ug/mL 10.0-40.0 [facility] This test was developed and its performa nce characteristicsdetermined by [facility]. It has not been cleared or approvedby the Food and Drug Administration. ID Date Data Source [id number] 02/17/2020 08:57:00 AM [facility] Name Value Range Interpretation Code Description Data Pennie rce(s) Supporting Document(s) Ferritin [Mass/volume] in Serum or Plasma 236.1 ng/mL 5.0 - 244 [facility] ID Date Data Source [id number] 02/17/2020 08:48:00 AM [facility] Name Value Range Interpretation Code Description Data Pennie rce(s) Supporting Document(s) CBC NO DIFF [facility] ital COMPLETE BLOOD COUNT Leukocytes [#/volume] in Blood by Automated count 9.0 10^3/uL 4.2 - 1 1.0 [facility] Erythrocytes [#/volume] in Blood by Automated count 3.09 10^6/uL 4. 50 - 6.30 L [facility] Hemoglobin [Mass/volume] in Blood 9.0 g/dL 14.0 - 16.0 L [facility] Hematocrit [Volume Fraction] of Blood by Automated count 27.6 % 4 1.0 - 51.0 L [facility] Erythrocyte mean corpuscular volume [Entitic volume] by Auto mated count 89.3 fL 80.0 - 94.0 [facility] Erythrocyte mean corpuscular hemoglobin [Entitic mass] by Automated count 29.1 pg 27.0 - 34.0 [facility] Erythrocyte mean corpuscular hemoglobin concentration [Mass/volume] by Automated count 32.6 g/dL 31.0 - 36.0 [facility] Erythrocyte distribution width [Ratio] by Automated count 18.9 % 11.5 - 14.8 H [facility] Platelets [#/volume] in Blood by Automated count 187 10^3/uL 150 - 45 0 [facility] Platelet mean volume [Entitic volume] in Blood by Automated count 11.1 fL 7.4 - 10.4 H [facility] ID Date Data Source [id number] 02/17/2020 08:44:00 AM EST [facility] Name Value Range Interpretation Code Description Data Pennie rce(s) Supporting Document(s) Iron [Mass/volume] in Serum or Plasma 61 UG/DL 42 - 135 [facility] Iron binding capacity.unsaturated [Mass/volume] in Serum or Plasma 103 UG/DL 112 - 347 L [facility] Iron binding capacity [Mass/volume] in Serum or Plasma 164 ug/dL 250 - 450 L [facility] Iron saturation [Mass Fraction] in Serum or Plasma 37 % [facility] ID Date Data Source [id number] 02/17/2020 08:44:00 AM EST [facility] Name Value Range Interpretation Code Description Data Pennie rce(s) Supporting Document(s) COMPREHENSIVE METABOLIC PANEL [facility] COMPREHENSIVE METABOLIC PANEL Sodium [Moles/volume] in Serum or Plasma 143 mEq/L 134 - 153 [facility] Potassium [Moles/volume] in Serum or Plasma 4.1 mEq/L 3.6 - 5.0 [facility] Chloride [Moles/volume] in Serum or Plasma 106 mEq/L 98 - 107 [facility] Carbon dioxide, total [Moles/volume] in Serum or Plasma 32 MEQ/L 22 - 30 H [facility] Glucose [Mass/volume] in Serum or Plasma 160 MG/DL 65 - 110 H [facility] BUN 18 MG/DL 7 - 21 [facility] al Creatinine [Mass/volume] in Serum or Plasma 1.0 MG/DL 0.7 - 1.5 [facility] BUN/CREAT 18 8 - 27 [facility] Protein [Mass/volume] in Serum or Plasma 4.3 G/DL 6.3 - 8.2 L [facility] Albumin [Mass/volume] in Serum or Plasma 2.9 G/DL 3.9 - 5.0 L [facility] Globulin [Mass/volume] in Serum by calculation 1.4 GM/DL 2.4 - 3.2 L [facility] A/G RATIO 2.1 0.8 - 2.0 H [facility] Calcium [Mass/volume] in Serum or Plasma 8.4 MG/DL 8.4 - 10.2 [facility] Bilirubin.total [Mass/volume] in Serum or Plasma <0.7 MG/DL 0.2 - 1.3 [facility] Alkaline phosphatase [Enzymatic activity/volume] in Serum or Plasma 71 U/L 38 - 126 [facility] Aspartate aminotransferase [Enzymatic activity/volume] in Serum or Plasma 12 U/L 5 - 40 [facility] Alanine aminotransferase [Enzymatic activity/volume] in Seru m or Plasma 8 U/L 7 - 56 [facility] Anion gap 3 in Serum or Plasma 5.0 mmol/L 8.0 - 16.0 L [facility] AGE 84 yrs [facility] NON-AA GFR >60 mL/min [facility] ital AFR AMER GFR >60 mL/min [facility] Male GFR In terprentation [...] >32 mL/min Normal ID Date Data Source [id number] 02/17/2020 08:42:00 AM EST [facility] Name Value Range Interpretation Code Description Data Pennie rce(s) Supporting Document(s) CVE PANEL [facility] al LIPID PANEL Cholesterol [Mass/volume] in Serum or Plasma 132 MG/DL 131 - 200 [facility] Deprecated Triglyceride [Mass/volume] in Serum or Plasma 83 MG/DL 3 5 - 160 [facility] HDL 35 MG/DL 29 - 86 [facility] al Cholesterol in LDL [Mass/volume] in Serum or Plasma by Direc t assay 83 mg/dL 65 - 175 [facility] Cholesterol.total/Cholesterol in HDL [Mass Ratio] in Serum o r Plasma 3.8 3.4 - 4.9 [facility] LDL/HDL 2.37 1.00 - 3.55 [facility] ital CVE RISK CHOL/HDL LDL/HDLMEN: 1/2 AVERAGE 3.43 1.00 AVERAGE 4.97 3.55 2X AVERAGE 9.55 6.25 3X AVERAGE 23.99 7.99WOMEN: 1/2 AVERAGE 3.27 1.47 AVERAGE 4.44 3.22 2X AVERAGE 7.05 5.03 3X AVERAGE 11.04 6.14 ID Date Data Source [id number] 01/22/2020 10:20:00 AM EDT [facility] ([facility]) Name Value Range Interpretation Code Description Data Pennie rce(s) Supporting Document(s) Magnesium [Mass/volume] in Serum or Plasma 1.6 [facility] ([facility]) ID Date Data Source [id number] 01/22/2020 10:20:00 AM EDT [facility] Name Value Range Interpretation Code Description Data Pennie rce(s) Supporting Document(s) Iron 48 42-135 [facility] ([facility] Iron binding capacity [Mass/volume] in Serum or Plasma 192 [facility] ([facility] Tibc % Saturation 25 [facility] ([facility] ID Date Data Source [id number] 01/22/2020 10:20:00 AM EDT [facility] Name Value Range Interpretation Code Description Data Pennie rce(s) Supporting Document(s) Free T4 1.53 [facility] ([facility] Thyroid Stimulating Hormone 2.54 ME DENT ([facility] ID Date Data Source [id number] 01/22/2020 10:20:00 AM EDT [facility] ([facility] Name Value Range Interpretation Code Description Data Pennie rce(s) Supporting Document(s) Calcium [Mass/volume] in Serum or Plasma 8.9 [facility] ([facility]) Alanine aminotransferase [Enzymatic activity/volume] in Serum or Pl asma 8 [facility] ([facility] Albumin [Mass/volume] in Serum or Plasma 3.3 [facility] ([facility] Carbon dioxide, total [Moles/volume] in Serum or Plasma 32 [facility] ([facility] Chloride [Moles/volume] in Serum or Plasma 105 [facility] ([facility] Alkaline phosphatase [Enzymatic activity/volume] in Serum or Plasma 7 0 [facility] ([facility] Protein [Mass/volume] in Serum or Plasma 5.2 [facility] ([facility] Potassium [Moles/volume] in Serum or Plasma 4.0 [facility] ([facility] Sodium 144 [facility] ([facility] Urea nitrogen [Mass/volume] in Serum or Plasma 19 [facility] ([facility] Aspartate aminotransferase [Enzymatic activity/volume] in Serum or Plasma 12 [facility] ([facility] Glucose 100 65-110 [facility] ([facility] Creatinine For GFR 1.0 [facility] ([facility] ID Date Data Source [id number] 01/22/2020 08:27:00 AM EDT [facility] Name Value Range Interpretation Code Description Data Pennie rce(s) Supporting Document(s) Thyroxine (T4) free index in Serum or Plasma by calculation 1.53 NG/DL 0.93 - 1.70 [facility] ID Date Data Source [id number] 01/22/2020 08:27:[address] [facility] Value Range Interpretation Code Description Data Pennie rce(s) Supporting Document(s) Thyrotropin [Units/volume] in Serum or Plasma by Detec tion limit <= 0.05 mIU/L 2.54 uIU/mL 0.47 - 5.01 [facility] ID Date Data Source [id number] 01/22/2020 08:27:[address] [facility] Value Range Interpretation Code Description Data Pennie rce(s) Supporting Document(s) Ferritin [Mass/volume] in Serum or Plasma 460.0 ng/mL 5.0 - 244 H [facility] ID Date Data Source [id number] 01/22/2020 08:22:[address] [facility] Value Range Interpretation Code Description Data Pennie rce(s) Supporting Document(s) Magnesium [Mass/volume] in Serum or Plasma 1.6 MG/DL 1.7 - 2.2 L [facility] ID Date Data Source [id number] 01/22/2020 08:22:[address] [facility] Value Range Interpretation Code Description Data Pennie rce(s) Supporting Document(s) Iron [Mass/volume] in Serum or Plasma 48 UG/DL 42 - 135 [facility] Iron binding capacity.unsaturated [Mass/volume] in Serum or Plasma 144 UG/DL 112 - 347 [facility] Iron binding capacity [Mass/volume] in Serum or Plasma 192 ug/dL 250 - 450 L [facility] Iron saturation [Mass Fraction] in Serum or Plasma 25 % [facility] ID Date Data Source [id number] 01/22/2020 08:22:[address] [facility] Value Range Interpretation Code Description Data Pennie rce(s) Supporting Document(s) [facility] Cholesterol [Mass/volume] in Serum or Plasma 154 MG/DL 131 - 200 [facility] Deprecated Triglyceride [Mass/volume] in Serum or Plasma 156 MG/DL 3 5 - 160 [facility] HDL 29 MG/DL 29 - 86 [facility] Cholesterol in LDL [Mass/volume] in Serum or Plasma by Direc t assay 99 mg/dL 65 - 175 [facility] Cholesterol.total/Cholesterol in HDL [Mass Ratio] in Serum o r Plasma 5.3 3.4 - 4.9 H [facility] LDL/HDL 3.41 1.00 - 3.55 [facility] ital CVE RISK CHOL/HDL LDL/HDLMEN: 1/2 AVERAGE 3.43 1.00 AVERAGE 4.97 3.55 2X AVERAGE 9.55 6.25 3X AVERAGE 23.99 7.99WOMEN: 1/2 AVERAGE 3.27 1.47 AVERAGE 4.44 3.22 2X AVERAGE 7.05 5.03 3X AVERAGE 11.04 6.14 ID Date Data Source [id number] 01/22/2020 08:22:00 AM EDT [facility] Name Value Range Interpretation Code Description Data Pennie rce(s) Supporting Document(s) COMPREHENSIVE METABOLIC PANEL [facility] COMPREHENSIVE METABOLIC PANEL Sodium [Moles/volume] in Serum or Plasma 144 mEq/L 134 - 153 [facility] Potassium [Moles/volume] in Serum or Plasma 4.0 mEq/L 3.6 - 5.0 [facility] Chloride [Moles/volume] in Serum or Plasma 105 mEq/L 98 - 107 [facility] Carbon dioxide, total [Moles/volume] in Serum or Plasma 32 MEQ/L 22 - 30 H [facility] Glucose [Mass/volume] in Serum or Plasma 100 MG/DL 65 - 110 [facility] BUN 19 MG/DL 7 - 21 [facility] Creatinine [Mass/volume] in Serum or Plasma 1.0 MG/DL 0.7 - 1.5 [facility] BUN/CREAT 19 8 - 27 [facility] al Protein [Mass/volume] in Serum or Plasma 5.2 G/DL 6.3 - 8.2 L [facility] Albumin [Mass/volume] in Serum or Plasma 3.3 G/DL 3.9 - 5.0 L [facility] Globulin [Mass/volume] in Serum by calculation 1.9 GM/DL 2.4 - 3.2 L [facility] A/G RATIO 1.7 0.8 - 2.0 [facility] Calcium [Mass/volume] in Serum or Plasma 8.9 MG/DL 8.4 - 10.2 [facility] Bilirubin.total [Mass/volume] in Serum or Plasma <0.7 MG/DL 0.2 - 1.3 [facility] Alkaline phosphatase [Enzymatic activity/volume] in Serum or Plasma 70 U/L 38 - 126 [facility] Aspartate aminotransferase [Enzymatic activity/volume] in Serum or Plasma 12 U/L 5 - 40 [facility] Alanine aminotransferase [Enzymatic activity/volume] in Seru m or Plasma 8 U/L 7 - 56 [facility] Anion gap 3 in Serum or Plasma 7.0 mmol/L 8.0 - 16.0 L [facility] AGE 84 yrs [facility] al NON-AA GFR >60 mL/min [facility] ital AFR AMER GFR >60 mL/min [facility] Male GFR In terprentation [...] >32 mL/min Normal ID Date Data Source [id number] 01/22/2020 07:56:00 AM EDT [facility] Name Value Range Interpretation Code Description Data Pennie rce(s) Supporting Document(s) CBC NO DIFF [facility] ital COMPLETE BLOOD COUNT Leukocytes [#/volume] in Blood by Automated count 12.1 10^3/uL 4.2 - 11.0 H [facility] Erythrocytes [#/volume] in Blood by Automated count 3.44 10^6/uL 4. 50 - 6.30 L [facility] Hemoglobin [Mass/volume] in Blood 10.0 g/dL 14.0 - 16.0 L [facility] Hematocrit [Volume Fraction] of Blood by Automated count 30.4 % 4 1.0 - 51.0 L [facility] Erythrocyte mean corpuscular volume [Entitic volume] by Auto mated count 88.4 fL 80.0 - 94.0 [facility] Erythrocyte mean corpuscular hemoglobin [Entitic mass] by Automated count 29.1 pg 27.0 - 34.0 [facility] Erythrocyte mean corpuscular hemoglobin concentration [Mass/volume] by Automated count 32.9 g/dL 31.0 - 36.0 [facility] Erythrocyte distribution width [Ratio] by Automated count 19.3 % 11.5 - 14.8 H [facility] Platelets [#/volume] in Blood by Automated count 216 10^3/uL 150 - 45 0 [facility] Platelet mean volume [Entitic volume] in Blood by Automated count 10.5 fL 7.4 - 10.4 H [facility] ID Date Data Source [id number] 01/17/2020 08:27:00 PM EDT [facility] ([facility] Name Value Range Interpretation Code Description Data Pennie rce(s) Supporting Document(s) Color, Urine RFX Laboratory test result Normal ( applies to non-numeric results) [facility] ([facility] ) Appearance, Urine RFX Laboratory test result Nor mal (applies to non-numeric results) [facility] ([facility] ) Specific [place] Ur Auto RFX 1.015 1.002-1.035 Nor mal (applies to non-numeric results) [facility] ([facility] ) Protein, Urine Auto RFX Laboratory test result N ormal (applies to non-numeric results) [facility] ([facility] ) PH,Urine RFX 6.0 units 5.0-9.0 Normal (applies to non-numeric res ults) [facility] ([facility] Glucose, Urine (Ua) Auto RFX Laboratory test result Normal (applies to non- numeric results) [facility] ([facility] ) Ketone, Urine Auto RFX Laboratory test result No rmal (applies to non-numeric results) [facility] ([facility] ) Urobilinogen, Urine Auto RFX 0.2 mg/dL 0.0-2.0 Nor mal (applies to non-numeric results) [facility] ([facility] ) Bilirubin, Urine Auto RFX Laboratory test result Normal (applies to non- numeric results) [facility] ([facility] Nitrite, Urine Auto RFX Laboratory test result N ormal (applies to non-numeric results) [facility] ([facility] ) Blood, Urine Blood RFX Laboratory test result No rmal (applies to non-numeric results) [facility] ([facility] ) Leukocyte Esterase Ur Auto RFX Laboratory test result Normal (applies to non- numeric results) [facility] ([facility] ) WBC, Urine Auto RFX 3 /HPF 0-3 Normal (applies to non-nume cristian results) [facility] ([facility] Squam Epithelial Cell Ur Aurfx 0 /HPF 0-6 N ormal (applies to non-numeric results) [facility] ([facility] ) Bacteria, Urine Auto RFX Laboratory test result Normal (applies to non-numeric results) [facility] ([facility] ) RBC, Urine Auto RFX 0 /HPF 0-3 Normal (applies to non-nume cristian results) [facility] ([facility] Hyaline Cast, Urine Auto RFX 0 /LPF 0-1 Normal (appl ies to non-numeric results) [facility] ([facility] ID Date Data Source [id number] 01/17/2020 06:14:00 PM EDT [facility] ([facility] Name Value Range Interpretation Code Description Data Pennie rce(s) Supporting Document(s) Lactate [Mass/volume] in Serum or Plasma 0.9 mmol/L 0.4-2.0 Normal (applies to non-numeric results) [facility] ([facility]) Y/N query for Sepsis Lactate Rule: Y ID Date Data Source [id number] 01/17/2020 06:14:00 PM EDT [facility] ([facility] Name Value Range Interpretation Code Description Data Pennie rce(s) Supporting Document(s) CK-MB Value Mass 1.5 ng/mL Normal (applies to non-numeric results) [facility] ([facility] CPK Creatine Phosphokinase 24 U/L 39-308 Below low normal [facility] ([facility] MB/CK Relative Index 6.25 Above high normal [facility] <content>DIAGNOSIS CRITERIA</content>
<content>MMB ng/ml Relative Index (RI)</content>
<content>NON-AMI < or = 5 N/A</content>
<content>CHANEY ZONE > 5 < or = 4</content>
<content>AMI > 5 > 4</content>
<content></content> Troponin I Laboratory test result Normal (applies to non-n umeric results) [facility] ([facility] <content>Troponin I Reference Interval f or Siemens [place] LOCI:</content>
<content></content>
<content>99th Percentile= 0.00-0.045 ng/ml</content>
<content></content>
<content>Risk Stratification:</content>
<content><= 0.10 ng/ml Decreased Risk for Adverse Clinical</content>
<content>Events.</content>
<content>0.10-1.50 ng/ml Increased Risk for Adverse Clinical</content>
<content>Events. Evaluation of additional</content>
<content>criterion and/or repeat testing in 2-6</content>
<content>hours is suggested to rule out myocardial</content>
<content>damage.</content>
<content>>= 1.50 ng/ml Indicative of Myocardial Injury.</content>
<content></content> ID Date Data Source [id number] 01/17/2020 06:14:00 PM EDT [facility] ([facility] [...] [facility] ([facility] Alkaline Phosphatase 70 U/L 45-117 Normal (applies to non-num romeo results) [facility] ([facility] Total Protein 5.4 GM/DL 6.4-8.2 Below low normal MEDEN T ([facility] Bilirubin,Direct 0.2 mg/dL 0.0-0.2 Normal (applies to non-numeric results) [facility] ([facility] Albumin 2.5 GM/DL 3.2-5.2 Below low normal [facility] ( [facility] Albumin/Globulin Ratio 0.9 Normal (applies to non-n umeric results) [facility] ([facility] ID Date Data Source [id number] 01/17/2020 06:14:00 PM EDT [facility] (Famil y [...] Little GFR Left</content>
<content>ESRD GFR <15 on EVP [place]</content>
<content></content> Potassium Serum 4.3 meq/L 3.5-5.1 Normal (applies to non-numeric results) [facility] ([facility] Sodium Level 142 meq/L 136-145 Normal (applies to non-numeric res ults) [facility] ([facility] Chloride Level 107 meq/L 98-107 Normal (applies to non-numeric r esults) [facility] ([facility] Calcium Level 8.7 mg/dL 8.8-10.2 Below low normal [facility] T ([facility] Anion Gap 4 meq/L 8-16 Below low normal [facility] ( [facility] Carbon Dioxide Level 31 meq/L 21-32 Normal (applies to non-num romeo results) [facility] ([facility] ID Date Data Source [id number] 01/17/2020 06:14:00 PM EDT [facility] ([facility] Name Value Range Interpretation Code Description Data Pennie rce(s) Supporting Document(s) Osmolality of Serum or Plasma 292 MOSM/KG 280-301 No rmal (applies to non-numeric results) [facility] ([facility] ) Thyrotropin [Units/volume] in Serum or Plasma 0.928 uIU/ML 0. 358-3.740 Normal (applies to non-numeric results) [facility] ([facility] ID Date Data Source [id number] 01/17/2020 06:14:00 PM EDT [facility] ([facility] Name Value Range Interpretation Code Description Data Pennie rce(s) Supporting Document(s) White Blood Count 13.4 10 4.0-10.0 Above high normal [facility] ([facility] Red Blood Count 3.51 10 4.30-6.10 Below low normal [facility] ([facility] Hemoglobin 9.9 g/dL 13.5-17.5 Below low normal [facility] ( [facility] Mean Corpuscular Hemoglobin 28.2 pg 27.0-33.0 Norm al (applies to non-numeric results) [facility] ([facility] ) Mean Corpuscular Volume 89.5 fl 80.0-96.0 Normal ( applies to non-numeric results) [facility] ([facility] ) Hematocrit 31.4 % 42.0-52.0 Below low normal [facility] ( [facility] Mean Corpuscular HGB Conc 31.5 g/dL 32.0-36.5 Below low normal [facility] ([facility] Red Cell Distribution Width 19.2 % 11.5-14.5 Above high normal [facility] ([facility] Nucleated Red Blood Cell % 0.0 % 0-0 Normal (applies to n on-numeric results) [facility] ([facility] Platelet Count, Automated 201 10 150-450 Normal (applies to non-numeric results) [facility] ([facility] ) ID Date Data Source [id number] 01/17/2020 06:14:00 PM EDT [facility] (Famil y [...] Normal (applies to non-numeric r esults) [facility] ([facility] Myelocytes 3 % 0-0 Above high normal [facility] ([facility] Anisocytosis Laboratory test result Normal (applies to non -numeric results) [facility] ([facility] ID Date Data Source [id number] 01/17/2020 06:14:00 PM EDT [facility] ([facility] Name Value Range Interpretation Code Description Data Pennie rce(s) Supporting Document(s) Platelets [#/volume] in Blood by Estimate Laboratory test result Normal (applies to non-numeric results) [facility] ([facility] ID Date Data Source [id number] 12/24/2019 04:02:00 PM EDT [facility] ([facility] ) Name Value Range Interpretation Code Description Data Pennie rce(s) Supporting Document(s) Leukocytes [#/volume] in Blood by Automated count 14.1 x10E3/uL 3.4-1 0.8 [facility] ([facility], ) Hemoglobin [Mass/volume] in Blood 10.4 g/dL 13.0-17.7 [facility] ([facility], ) Erythrocytes [#/volume] in Blood by Automated count 3.59 x10E6/uL 4.1 4-5.80 [facility] ([facility], ) Hematocrit [Volume Fraction] of Blood by Automated count 31.8 % 3 7.5-51.0 [facility] ([facility], ) Erythrocyte mean corpuscular volume [Entitic volume] by Auto mated count 89 fL 79-97 [facility] ([facility], ) Erythrocyte mean corpuscular hemoglobin [Entitic mass] by Automated count 29.0 pg 26.6-33.0 [facility] ([facility], ) Platelets [#/volume] in Blood by Automated count 193 x10E3/uL 150-450 [facility] ([facility], ) Erythrocyte mean corpuscular hemoglobin concentration [Mass/volume] by Automated count 32.7 g/dL 31.5-35.7 [facility] ([facility], ) Erythrocyte distribution width [Ratio] by Automated count 18.3 % 11.6-15.4 [facility] ([facility], ) Monocytes/100 leukocytes in Blood by Automated count 16 % [facility] ([facility]) Neutrophils/100 leukocytes in Blood by Automated count 74 % [facility] Laboratory test finding (navigational concept) 3 % [facility] ([facility]) Eosinophils/100 leukocytes in Blood by Automated count 1 % [facility] ([facility]) Immature cells [#/volume] in Blood Laboratory test result [facility] ([facility]) Basophils/100 leukocytes in Blood by Automated count 1 % [facility] ([facility]) Lymphocytes [#/volume] in Blood 0.4 x10E3/uL 0.7-3.1 [facility] ([facility]) Neutrophils [#/volume] in Blood by Automated count 10.4 x10E3/uL 1.4- 7.0 [facility] ([facility]) Eosinophils [#/volume] in Blood by Automated count 0.1 x10E3/uL 0.0-0 .4 [facility] ([facility]) Monocytes [#/volume] in Blood 2.3 x10E3/uL 0.1-0.9 [facility] ([facility]) Basophils [#/volume] in Blood by Automated count 0.1 x10E3/uL 0.0-0.2 [facility] ([facility]) Immature granulocytes [#/volume] in Blood by Automated count Laboratory test result [facility] ([facility]) Nucleated erythrocytes/100 leukocytes [Ratio] in Blood by Automated count Laboratory test result [facility] Immature granulocytes/100 leukocytes in Blood by Autom ated count Laboratory test result [facility] ([facility] Morphology [Interpretation] in Blood Narrative Laboratory test result [facility] Manual differential was performed. Bands Laboratory test result [facility] Promyelocytes [#] in Body fluid by Manual count Laboratory test resul t [facility] ([facility], ) Metamyelocytes/100 leukocytes in Blood 1 % 0-0 [facility] ([facility]) Myelocytes [#/volume] in Blood 4 % 0-0 [facility] ([facility], ) Laboratory test finding (navigational concept) Laboratory test result [facility] Laboratory test finding (navigational concept) Laboratory test result [facility] ([facility] Laboratory test finding (navigational concept) Laboratory test result [facility] ([facility] ID Date Data Source [id number] 12/24/2019 04:02:00 PM EDT [facility] ([facility] Name Value Range [...] Auto mated count 89 fL 79-97 [facility] ([facility] Hematocrit [Volume Fraction] of Blood by Automated count 31.8 % 37.5-51.0 Below low normal [facility] ([facility] ) Erythrocyte mean corpuscular hemoglobin [Entitic mass] by Automated count 29.0 pg 26.6-33.0 [facility] ([facility] Erythrocyte mean corpuscular hemoglobin concentration [Mass/volume] by Automated count 32.7 g/dL 31.5-35.7 [facility] ([facility] Platelets [#/volume] in Blood by Automated count 193 x10E3/uL 150-450 MED[facility] ([facility] Erythrocyte distribution width [Ratio] by Automated count 18.3 % 11.6-15.4 Above high normal [facility] ([facility] ) Lymphs 3 % [facility] Monocytes/100 leukocytes in Blood by Automated count 16 % [facility] ([facility] Neutrophils 74 % [facility] ([facility] Basophils/100 leukocytes in [...] by Automated count Laboratory [facility] result [facility] Immature granulocytes/100 leukocytes in Blood by Autom ated count Laboratory test result [facility] ([facility] Immature granulocytes [#/volume] in Blood by Automated count Laboratory test result [facility] ([facility] Morphology [Interpretation] in Blood [...] finding (navigational concept) Laboratory test result MED[facility] ([facility] ID Date Data Source [id number] 12/24/2019 04:01:00 PM EDT MED[facility] ([facility]) Name Value Range Interpretation Code Description Data Pennie rce(s) Supporting Document(s) Laboratory test finding (navigational concept) Laboratory test result MED[facility] ([facility]) Appearance of Urine Laboratory test result [facility] ([facility]) Specific Kake 1.025 1.00-1.03 MED[facility] ([facility]) Laboratory test finding (navigational concept) 5.0 5.0-8.0 MED[facility] ([facility]) Laboratory test finding (navigational concept) Laboratory test result [facility] ([facility]) Laboratory test finding (navigational concept) Laboratory test result [facility] ([facility]) Bilirubin.total [Presence] in Urine by Test strip Laboratory test res ult MED[facility] ([facility]) Urobilinogen 0.2 EU/dl 0.2-1.0 MED[facility] ([facility]) Laboratory test finding (navigational concept) Laboratory test result MED[facility] ([facility]) Laboratory test finding (navigational concept) Laboratory test result MED[facility] ([facility]) Laboratory test finding (navigational concept) Laboratory test result [facility] ([facility]) Nitrite Laboratory test result [facility] ([facility]) ID Date Data Source [id number] 12/24/2019 04:01:00 PM EDT MED[facility] ([facility] Name Value Range Interpretation Code Description Data Pennie rce(s) Supporting Document(s) Appearance of Urine Laboratory test result [facility] ([facility] Specific Kake 1.025 1.00-1.03 [facility] Color Urine Laboratory test result M EDENT ([facility] Glucose Urine Laboratory test result [facility] ([facility] Bilirubin.total [Presence] in Urine by Test strip Laboratory test res ult MED[facility] ([facility] PH Urine 5.0 5.0-8.0 [facility] ([facility] Blood Urine Laboratory test result M EDENT ([facility] Ketones Laboratory test result [facility] ([facility] Nitrite Laboratory test result [facility] ([facility] Protein Urine Laboratory test result MED[facility] ([facility] Urobilinogen 0.2 EU/dl 0.2-1.0 [facility] ([facility] Leukocytes Laboratory test result ME DENT ([facility] ID Date Data Source [id number] 12/07/2019 01:14:00 PM EDT MED[facility] ([facility], ) Name Value Range Interpretation Code Description Data Pennie rce(s) Supporting Document(s) Magnesium [Mass/volume] in Serum or Plasma 1.8 mg/dL 1.8-2.4 [facility] ([facility]) ID Date Data Source [id number] 12/07/2019 01:14:00 PM EDT MED[facility] ([facility]) Name Value Range Interpretation Code Description Data Pennie rce(s) Supporting Document(s) Blood Urea Nitrogen 22 mg/dL 7-18 [facility] ([facility]) Glucose, Fasting 126 mg/dL 70-100 [facility] ([facility]) Glomerular Filtration Rate Laboratory test result MED[facility] ([facility]) <content>Units are mL/min/1.73 m2</content>
<content></content>
<content>Chronic Kidney Disease Staging per NKF:</content>
<content></content>
<content>Stage I & II GFR >=60 Normal to Mildly Decreased</content>
<content>Stage III GFR 30- 59 Moderately Decreased</content>
<content>Stage IV GFR 15-29 Severely Decreased</content>
<content>Stage V GFR <15 Very Little GFR Left</content>
<content>ESRD GFR <15 on [facility] [place]</content>
<content></content>
<content></content> Sodium Level 144 meq/L 136-145 MED[facility] ([facility]) Creatinine For GFR 1.03 mg/dL 0.70-1.30 [facility] ([facility]) Carbon Dioxide Level 30 meq/L 21-32 [facility] ([facility]) Chloride Level 110 meq/L 98-107 [facility] ([facility]) Potassium Serum 3.9 meq/L 3.5-5.1 MED[facility] ([facility]) Calcium Level 8.5 mg/dL 8.8-10.2 MED[facility] ([facility]) Anion Gap 4 meq/L 8-16 [facility] ([facility]) ID Date Data Source [id number] 12/07/2019 01:14:00 PM EDT MED[facility] ([facility] Name Value Range Interpretation Code Description Data Pennie rce(s) Supporting Document(s) Magnesium [Mass/volume] in Serum or Plasma 1.8 mg/dL 1.8-2 .4 Normal (applies to non-numeric results) [facility] ([facility]) ID Date Data Source [id number] 12/07/2019 01:14:00 PM EDT MED[facility] ([facility] Name Value Range Interpretation Code Description Data Pennie rce(s) Supporting Document(s) Glucose, Fasting 126 mg/dL 70-100 Above high normal M EDENT ([facility] Glomerular Filtration Rate Laboratory test result Normal (applies to non- numeric results) [facility] ([facility] ) <content>Units are mL/min/1.73 m2</content>
<content></content>
<content>Chronic Kidney Disease Staging per NKF:</content>
<content></content>
<content>Stage I & II GFR >=60 Normal to Mildly Decreased</content>
<content>Stage III GFR 30- 59 Moderately Decreased</content>
<content>Stage IV GFR 15-29 Severely Decreased</content>
<content>Stage V GFR <15 Very Little GFR Left</content>
<content>ESRD GFR <15 on [facility] [place]</content>
<content></content> Blood Urea Nitrogen 22 mg/dL 7-18 Above high normal MED[facility] ([facility] Creatinine For GFR 1.03 mg/dL 0.70-1.30 Normal (applies to non -numeric results) [facility] ([facility] Potassium Serum 3.9 meq/L 3.5-5.1 Normal (applies to non-numeric results) [facility] ([facility] Sodium Level 144 meq/L 136-145 Normal (applies to non-numeric res ults) [facility] ([facility] Chloride Level 110 meq/L 98-107 Above high normal MED ENT ([facility] Carbon Dioxide Level 30 meq/L 21-32 Normal (applies to non-num romeo results) [facility] ([facility] Calcium Level 8.5 mg/dL 8.8-10.2 Below low normal MEDEN T ([facility] Anion Gap 4 meq/L 8-16 Below low normal [facility] ( [facility] ID Date Data Source [id number] 11/12/2019 03:40:00 PM EDT MED[facility] ([facility] Name Value Range Interpretation Code Description Data Pennie rce(s) Supporting Document(s) Ammonia [Moles/volume] in Plasma 78 ug/dL 28-135 MED[facility] ([facility] Please note reference interval change* * ID Date Data Source [id number] 11/12/2019 03:40:00 PM EDT MED[facility] ([facility] Name Value Range Interpretation Code Description Data Pennie rce(s) Supporting Document(s) Thyrotropin [Units/volume] in Serum or Plasma 1.239 ulU/mL 0.60-4.8 [facility] ([facility] ID Date Data Source [id number] 11/12/2019 03:39:00 PM EDT MED[facility] ([facility] Name Value Range Interpretation Code Description Data Pennie rce(s) Supporting Document(s) No Urine Received Laboratory test result MED[facility] ([facility] Test(s) 843139-Rwxdvdnzlivop Acid, U was developed and its performance characteristics determined by [facility]. It has not been cleared or approved by the Food and Drug Administration. ID Date Data Source [id number] 11/12/2019 03:39:00 PM EDT MED[facility] ([facility] Name Value Range Interpretation Code Description Data Pennie rce(s) Supporting Document(s) Glucose [Mass/volume] in Serum or Plasma 158 mg/dL 65-99 Above high normal [facility] ([facility] Test(s) 505600-Alqkmneoydjgo Acid, U was developed and its performance characteristics determined by [facility]. It has not been cleared or approved by the Food and Drug Administration. Creatinine [Mass/volume] in Serum or Plasma 1.26 mg/dL 0.76-1.27 [facility] ([facility] Test(s) 248115-Hafkvrqjvwsdv Acid, U was developed and its performance characteristics determined by [facility]. It has not been cleared or approved by the Food and Drug Administration. BUN 21 mg/dL 8-27 [facility] ([facility] Test(s) 574158-Sdqoedvjppfhj Acid, U was developed and its performance characteristics determined by [facility]. It has not been cleared or approved by the Food and Drug Administration. eGFR If NonAfricn Am 52 mL/min/1.73 Below low normal MED[facility] ([facility] Test(s) 248623-Vktvfqpfrupsg Acid, U was developed and its performance characteristics determined by [facility]. It has not been cleared or approved by the Food and Drug Administration. Urea nitrogen/Creatinine [Mass Ratio] in Serum or Plasma 17 1 0-24 [facility] ([facility] Test(s) 367068-Ytblfkfqontaz Acid, U was developed and its performance characteristics determined by [facility]. It has not been cleared or approved by the Food and Drug Administration. eGFR If Africn Am 60 mL/min/1.73 MED ENT ([facility] Test(s) 816129-Xlijwgcnskvat Acid, U was developed and its performance characteristics determined by [facility]. It has not been cleared or approved by the Food and Drug Administration. Sodium [Moles/volume] in Serum or Plasma 144 mmol/L 134-144 [facility] ([facility] Test(s) 254679-Vlzrmwmpkzifw Acid, U was developed and its performance characteristics determined by [facility]. It has not been cleared or approved by the Food and Drug Administration. Chloride [Moles/volume] in Serum or Plasma 105 mmol/L 96-106 [facility] ([facility] Test(s) 187790-Xuxvtjklddojf Acid, U was developed and its performance characteristics determined by [facility]. It has not been cleared or approved by the Food and Drug Administration. Potassium [Moles/volume] in Serum or Plasma 4.2 mmol/L 3.5-5.2 [facility] ([facility] Test(s) 421738-Vvyexwnsvwclf Acid, U was developed and its performance characteristics determined by [facility]. It has not been cleared or approved by the Food and Drug Administration. Calcium [Mass/volume] in Serum or Plasma 8.6 mg/dL 8.6-10.2 [facility] ([facility] Test(s) 857472-Zpccgycmsuhkn Acid, U was developed and its performance characteristics determined by [facility]. It has not been cleared or approved by the Food and Drug Administration. Carbon dioxide, total [Moles/volume] in Serum or Plasma 28 mmol/L 20 -29 [facility] ([facility] Test(s) 232363-Tmlqfsrwrwgcu Acid, U was developed and its performance characteristics determined by [facility]. It has not been cleared or approved by the Food and Drug Administration. Protein [Mass/volume] in Serum or Plasma 5.4 g/dL 6.0-8.5 Below low normal [facility] ([facility] Test(s) 362936-Auiskwomrcofi Acid, U was developed and its performance characteristics determined by [facility]. It has not been cleared or approved by the Food and Drug Administration. Albumin [Mass/volume] in Serum or Plasma 3.6 g/dL 3.6-4.6 [facility] ([facility] Test(s) 808333-Dwhglsqpwdosp Acid, U was developed and its performance characteristics determined by [facility]. It has not been cleared or approved by the Food and Drug Administration. Globulin [Mass/volume] in Serum by calculation 1.8 g/dL 1.5-4.5 MED[facility] ([facility] Test(s) 561239-Oqrmrhfrfssvq Acid, U was developed and its performance characteristics determined by [facility]. It has not been cleared or approved by the Food and Drug Administration. Albumin/Globulin [Mass Ratio] in Serum or Plasma 2.0 1.2-2.2 [facility] ([facility] Test(s) 220802-Qqslpbmliieda Acid, U was developed and its performance characteristics determined by [facility]. It has not been cleared or approved by the Food and Drug Administration. Alkaline phosphatase [Enzymatic activity/volume] in Serum or Plasma 45 IU/L 39-117 [facility] ([facility] Test(s) 241463-Tergtmrsruwdi Acid, U was developed and its performance characteristics determined by [facility]. It has not been cleared or approved by the Food and Drug Administration. Bilirubin.total [Mass/volume] in Serum or Plasma 0.3 mg/dL 0.0-1.2 MED[facility] ([facility] Test(s) 410784-Dxngdqzxawssi Acid, U was developed and its performance characteristics determined by [facility]. It has not been cleared or approved by the Food and Drug Administration. Aspartate aminotransferase [Enzymatic activity/volume] in Serum or Plasma 19 IU/L 0-40 [facility] Test(s) 464373-Gwrqlmhshwgum Acid, U was developed and its performance characteristics determined by [facility]. It has not been cleared or approved by the Food and Drug Administration. Alanine aminotransferase [Enzymatic activity/volume] in Seru m or Plasma 16 IU/L 0-44 [facility] Test(s) 295594-Ihujccvgqmjhr Acid, U was developed and its performance characteristics determined by [facility]. It has not been cleared or approved by the Food and Drug Administration. ID Date Data Source [id number] 11/12/2019 03:39:00 PM EDT MED[facility] ([facility] Name Value Range Interpretation Code Description Data Pennie rce(s) Supporting Document(s) Leukocytes [#/volume] in Blood by Automated count 12.7 x10E3/uL 3.4-10.8 Above high normal MED[facility] ([facility] ) Test(s) 559874-Xuiehrlvcqwzc Acid, U was developed and its performance characteristics determined by [facility]. It has not been cleared or approved by the Food and Drug Administration. Erythrocytes [#/volume] in Blood by Automated count 3.51 x10E6/u L 4.14-5.80 Below low normal [facility] ([facility] ) Test(s) 686396-Siwfpjovdjqbk Acid, U was developed and its performance characteristics determined by [facility]. It has not been cleared or approved by the Food and Drug Administration. Hemoglobin [Mass/volume] in Blood 9.9 g/dL 13.0-17.7 Below low nor mal MED[facility] ([facility] Test(s) 855207-Mscdnegecvlvu Acid, U was developed and its performance characteristics determined by [facility]. It has not been cleared or approved by the Food and Drug Administration. Hematocrit [Volume Fraction] of Blood by Automated count 30.5 % 37.5-51.0 Below low normal MED[facility] ([facility] ) Test(s) 413702-Utwvtbvvsptnw Acid, U was developed and its performance characteristics determined by [facility]. It has not been cleared or approved by the Food and Drug Administration. Erythrocyte mean corpuscular volume [Entitic volume] by Auto mated count 87 fL 79-97 [facility] Test(s) 361803-Eqvlvvlsqrajm Acid, U was developed and its performance characteristics determined by [facility]. It has not been cleared or approved by the Food and Drug Administration. Erythrocyte mean corpuscular hemoglobin [Entitic mass] by Automated count 28.2 pg 26.6-33.0 [facility] Test(s) 948238-Jygptpqfdvvif Acid, U was developed and its performance characteristics determined by [facility]. It has not been cleared or approved by the Food and Drug Administration. Erythrocyte mean corpuscular hemoglobin concentration [Mass/volume] by Automated count 32.5 g/dL 31.5-35.7 [facility] ([facility] Test(s) 988260-Tgowzhczkznas Acid, U was developed and its performance characteristics determined by [facility]. It has not been cleared or approved by the Food and Drug Administration. Erythrocyte distribution width [Ratio] by Automated count 17.7 % 11.6-15.4 Above high normal [facility] ([facility] ) Test(s) 206170-Ysvikqmfwqqzs Acid, U was developed and its performance characteristics determined by [facility]. It has not been cleared or approved by the Food and Drug Administration. Platelets [#/volume] in Blood by Automated count 267 x10E3/uL 150-450 [facility] ([facility] Test(s) 438739-Hbyvokfdiatps Acid, U was developed and its performance characteristics determined by [facility]. It has not been cleared or approved by the Food and Drug Administration. Neutrophils 80 % [facility] ([facility] Test(s) 377011-Dusnynjilxdcq Acid, U was developed and its performance characteristics determined by [facility]. It has not been cleared or approved by the Food and Drug Administration. Lymphs 7 % [facility] ([facility] Test(s) 938458-Gcflcadbrjrba Acid, U was developed and its performance characteristics determined by [facility]. It has not been cleared or approved by the Food and Drug Administration. Monocytes/100 leukocytes in Blood by Automated count 8 % [facility] ([facility] Test(s) 642824-Iszdwokynpvao Acid, U was developed and its performance characteristics determined by [facility]. It has not been cleared or approved by the Food and Drug Administration. Eosinophils/100 leukocytes in Blood by Automated count 0 % [facility] ([facility] Test(s) 088538-Rrtgkjisjaekl Acid, U was developed and its performance characteristics determined by [facility]. It has not been cleared or approved by the Food and Drug Administration. Basophils/100 leukocytes in Blood by Automated count 2 % [facility] ([facility] Test(s) 165755-Hdwoslndsnbnj Acid, U was developed and its performance characteristics determined by [facility]. It has not been cleared or approved by the Food and Drug Administration. Immature cells [#/volume] in Blood Laboratory test result MED[facility] ([facility] Test(s) 888161-Pqhndenlekukf Acid, U was developed and its performance characteristics determined by [facility]. It has not been cleared or approved by the Food and Drug Administration. Lymphocytes [#/volume] in Blood 0.9 x10E3/uL 0.7-3.1 [facility] ([facility] Test(s) 496638-Adyaljqjbsyzi Acid, U was developed and its performance characteristics determined by [facility]. It has not been cleared or approved by the Food and Drug Administration. Neutrophils [#/volume] in Blood by Automated count 10.2 x10E3/uL 1.4-7.0 Above high normal [facility] ([facility] ) Test(s) 517974-Rbnwwuigxcbwq Acid, U was developed and its performance characteristics determined by [facility]. It has not been cleared or approved by the Food and Drug Administration. Monocytes [#/volume] in Blood 1.0 x10E3/uL 0.1-0.9 Above high norm al MED[facility] ([facility] Test(s) 054744-Eswowlfrmynna Acid, U was developed and its performance characteristics determined by [facility]. It has not been cleared or approved by the Food and Drug Administration. Basophils [#/volume] in Blood by Automated count 0.3 x10E3/uL 0.0-0.2 Above high normal [facility] ([facility] ) Test(s) 201575-Ltefcoqdpikct Acid, U was developed and its performance characteristics determined by [facility]. It has not been cleared or approved by the Food and Drug Administration. Eosinophils [#/volume] in Blood by Automated count 0.0 x10E3/uL 0.0-0 .4 [facility] ([facility] Test(s) 115437-Wpivhrdtfxfkw Acid, U was developed and its performance characteristics determined by [facility]. It has not been cleared or approved by the Food and Drug Administration. Immature granulocytes/100 leukocytes in Blood by Autom ated count Laboratory test result [facility] Test(s) 712253-Vdumeluwhycmt Acid, U was developed and its performance characteristics determined by [facility]. It has not been cleared or approved by the Food and Drug Administration. Nucleated erythrocytes/100 leukocytes [Ratio] in Blood by Automated count Laboratory test result [facility] ([facility] Test(s) 189548-Hzfhangdulpfu Acid, U was developed and its performance characteristics determined by [facility]. It has not been cleared or approved by the Food and Drug Administration. Immature granulocytes [#/volume] in Blood by Automated count Laboratory test result [facility] Test(s) 204139-Xcmeiydvepbhk Acid, U was developed and its performance characteristics determined by [facility]. It has not been cleared or approved by the Food and Drug Administration. Morphology [Interpretation] in Blood Narrative Laboratory test result [facility] ([facility] Test(s) 248816-Ivtvmoknigqrb Acid, U was developed and its performance characteristics determined by [facility]. It has not been cleared or approved by the Food and Drug Administration. Bands Laboratory test result [facility] ([facility] Test(s) 916994-Abwucuuqgpwin Acid, U was developed and its performance characteristics determined by [facility]. It has not been cleared or approved by the Food and Drug Administration. Myelocytes Laboratory test result ME DENT ([facility] Test(s) 665282-Oityhuxkgwbfj Acid, U was developed and its performance characteristics determined by [facility]. It has not been cleared or approved by the Food and Drug Administration. Metamyelocytes 3 % 0-0 Above high normal MED E[facility] ([facility] Test(s) 223021-Ukubzflrvqosf Acid, U was developed and its performance characteristics determined by [facility]. It has not been cleared or approved by the Food and Drug Administration. Promyelocytes Laboratory test result [facility] ([facility] Test(s) 996686-Wdgowgijqenzm Acid, U was developed and its performance characteristics determined by [facility]. It has not been cleared or approved by the Food and Drug Administration. Laboratory test finding (navigational concept) Laboratory test result [facility] ([facility] Test(s) 526427-Scmuzmzmlkwmy Acid, U was developed and its performance characteristics determined by [facility]. It has not been cleared or approved by the Food and Drug Administration. Laboratory test finding (navigational concept) Laboratory test result [facility] ([facility] Test(s) 354808-Rasrvmckmnumo Acid, U was developed and its performance characteristics determined by [facility]. It has not been cleared or approved by the Food and Drug Administration. Laboratory test finding (navigational concept) Laboratory test result [facility] ([facility] Test(s) 327779-Ywqisrljhevyd Acid, U was developed and its performance characteristics determined by [facility]. It has not been cleared or approved by the Food and Drug Administration. ID Date Data Source [id number] 11/12/2019 03:39:00 PM EDT [facility] ([facility] Name Value Range Interpretation Code Description Data Pennie rce(s) Supporting Document(s) Cobalamin (Vitamin B12) [Mass/volume] in Serum or Plasma 412 pg/mL 2 32-1245 [facility] ([facility] Test(s) 549464-Mvrzntqiuuwnq Acid, U was developed and its performance characteristics determined by [facility]. It has not been cleared or approved by the Food and Drug Administration. ID Date Data Source [id number] 10/27/2019 02:53:00 AM EDT [facility] TSYSORDER [id number] Name Value Range Interpretation Code Description Data Pennie rce(s) Supporting Document(s) TROPONIN I < 0.017 ng/mL 0.0-0.056 [facility] ID Date Data Source [id number] 10/26/2019 08:42:00 PM EDT [facility] TSYSORDER [id number] Name Value Range Interpretation Code Description Data Pennie rce(s) Supporting Document(s) TROPONIN I < 0.017 ng/mL 0.0-0.056 [facility] ID Date Data Source [id number] 10/26/2019 04:06:00 PM EDT [facility] TSYS[facility] [id number] Name Value Range Interpretation Code Description Data Pennie rce(s) Supporting Document(s) URINE COLOR. [facility] URINE APPEARANCE CLEAR [facility] SPECIFIC GRAVITY,URINE 1.020 1.001-1.035 [facility] URINE LEUKOCYTE ESTERASE NEGATIVE NEGATIVE [facility] URINE NITRATE NEGATIVE NEGATIVE [facility] PH,URINE 5.5 5.0-9.0 [facility] URINE PROTEIN NEGATIVE mg/dL NE[facility]IVE [facility] GLUCOSE (UA) NEGATIVE mg/dL NEGATIVE [facility] URINE KETONE NEGATIVE mg/dL NEGATIVE [facility] UROBILINOGEN NORMAL(0.2-1) mg/dL 0-1 [facility] URINE BILIRUBIN NEGATIVE NEGATIVE [facility] URINE BLOOD TRACE NEGATIVE H [facility] ID Date Data Source [id number] 10/26/2019 04:06:00 PM EDT [facility] TSYSORDER [id number] Name Value Range Interpretation Code Description Data [facility] rce(s) Supporting Document(s) URINE RBC 0-2 /hpf 0-3 [facility] URINE WBC 0-2 /hpf 0-5 [facility] URINE EPITHELIAL CELLS 1+ /hpf 0 [facility] ID Date Data Source [id number] 10/26/2019 03:34:00 PM EDT [facility] DATE OF EXAMINATION: 10/26/2019 13:27 EDT TECHNIQUE: [...] Name Value Range Interpretation Code Description Data [facility] rce(s) Supporting Document(s) ID Date Data Source [id number] 10/28/2019 09:06:00 AM EDT [facility] Name Value Range Interpretation Code Description Data [facility] rce(s) Supporting Document(s) SARS-CoV-2 Antibody, IgM Negative Negative [facility] This sample does not contain detectable SARS-CoV-2 IgM antibodies.This negative result does not rule out SARS-CoV-2 infection.Correlation with epidemiologic risk factors and other clinical andlaboratory findings is recommended. Serologic results should not beused as the sole basis to diagnose or exclude recent CPVB-GhW-3txmjpwwit. ID Date Data Source [id number] 10/28/2019 02:07:00 PM EDT [facility] Name Value [...] SARS-CoV-2 IgG assay. ID Date Data Source [id number] 10/28/2019 04:06:00 PM EDT [facility] Name Value [...] sole basis to diagnose or exclude recent CNVX-GlS-[place]x. ID Date Data Source [id number] 10/26/2019 03:04:00 PM EDT [facility] TSYSORDER [id number] Name Value Range Interpretation Code Description Data Pennie rce(s) Supporting Document(s) PARTIAL THROMBOPLASTIN TIME 23.1 SECONDS 21.4-30.2 [facility] ID Date Data Source [id number] 10/26/2019 03:04:00 PM EDT [facility] TSYSORDER [id number] Name Value Range Interpretation Code Description Data Pennie rce(s) Supporting Document(s) PROTHROMBIN TIME (PATIENT) 11.3 SECONDS 9.2-11.6 [facility] INR 1.09 0.87-1.06 H [facility] ID Date Data Source [id number] 11/01/2019 12:06:00 PM EDT [facility] Name Value Range Interpretation Code Description Data Pennie rce(s) Supporting Document(s) BLOOD CULTURE, ROUTINE Final report . [facility] 11/01/19 1206: BLOOD CULT, RT previousl y reported as: Preliminary report BC RESULT1 Comment . [facility] No aerobic or anaerobic growth in five d ays.Performed at: [facility] [address] [id number] Director: Linda Garsia MD, Phone: [phone]/06/17 1206: BC RESULT1 previously reported as: Comment No growth in 36 - 48 hours. Performed at: [facility] [address] [id number] Manager Express: Linda Garsia MD, Phone: [phone] 10/29/19 1405: BC RESULT1 previously reported as: Comment No growth after 16-24 hours. Performed at: [facility] [address] [id number] [employer]: Linda Garsia MD, Phone: [phone] @ Edited by: @ Reason: [] ID Date Data Source [id number] 11/01/2019 12:05:00 PM EDT [facility] Name Value Range Interpretation Code Description Data Pennie rce(s) Supporting Document(s) Blood Culture, Routine Final report [facility] ID Date Data Source [id number] 11/01/2019 12:05:00 PM EDT [facility] Name Value Range Interpretation Code Description Data Pennie rce(s) Supporting Document(s) Result 1 [facility] No aerobic or anaerobic growth in five d ays. ID Date Data Source [id number] 10/26/2019 02:35:00 PM EDT [facility] TSYSORDER [id number] Name Value Range Interpretation Code Description Data Pennie rce(s) Supporting Document(s) BLOOD TYPE ABO O [facility] RH TYPE POSITIVE [facility] ANTIBODY SCREEN NEGATIVE [facility] ID Date Data Source [id number] 10/26/2019 02:45:00 PM EDT [facility] TSYSORDER [id number] Name Value Range Interpretation Code Description Data Pennie rce(s) Supporting Document(s) C REACTIVE PROTEIN 10.3 mg/L 0.0-3.0 H [facility] ID Date Data Source [id number] 10/26/2019 02:45:00 PM EDT [facility] TSYSORDER [id number] Name Value Range Interpretation Code Description Data Pennie rce(s) Supporting Document(s) MAGNESIUM 1.7 mg/dL 1.8-2.4 L [facility] ID Date Data Source [id number] 10/26/2019 02:45:00 PM EDT [facility] TSYSORDER [id number] Name Value Range Interpretation Code Description Data Pennie rce(s) Supporting Document(s) TROPONIN I < 0.017 ng/mL 0.0-0.056 [facility] ID Date Data Source [id number] 10/26/2019 03:10:00 PM EDT [facility] TSYSORDER [id number] Name Value Range Interpretation Code Description Data Pennie rce(s) Supporting Document(s) CREATINE PHOSPHOKINASE 34 U/L 39-308 L [facility] ID Date Data Source [id number] 10/26/2019 02:45:00 PM EDT [facility] TSYSORDER [id number] Name Value Range Interpretation Code Description Data Pennie rce(s) Supporting Document(s) LIPASE 147 U/L 73-393 [facility] ID Date Data Source [id number] 10/26/2019 02:45:00 PM EDT [facility] TSYSORDER [id number] Name Value Range Interpretation Code Description Data Pennie rce(s) Supporting Document(s) GLUCOSE 128 mg/dL 74-106 H [facility] BLOOD UREA NITROGEN 18 mg/dL 7-18 [facility] CREATININE 1.1 mg/dL 0.7-1.3 [facility] SODIUM 139 mmol/L 136-145 [facility] POTASSIUM 4.0 mmol/L 3.5-5.1 [facility] CHLORIDE 104 mmol/L 98-107 [facility] CO2 29 mmol/L 21-32 [facility] CALCIUM 8.6 mg/dL 8.5-10.1 [facility] ANION GAP 6.0 mmol/L 5-12 [facility] GLOMERULAR FILTRATION RATE 64 mL/min [facility] GFR IS CALCULATED IN mL/min/1.73m2 ANAY L FUNCTION: >90MILDLY DECREASED: 60-89MILDY TO MODERATELY DECREASED: 45-59 MODERATELY TO SEVERELY DECREASED: 30-44SEVERELY DECREASED: 15-29RENAL FAILURE: <15 AST 23 U/L 15-37 [facility] ALT 19 U/L 12-78 [facility] ALKALINE PHOSPHATASE 31 U/L 46-116 L [facility] pital TOTAL BILIRUBIN 0.5 mg/dL 0.2-1.0 [facility] TOTAL PROTEIN 5.8 g/dl 6.4-8.2 L [facility] ALBUMIN 2.8 gm/dL 3.4-5.0 *L [facility] ID Date Data Source [id number] 10/26/2019 02:59:00 PM EDT [facility] TSYSORDER [id number] Name Value Range Interpretation Code Description Data Pennie rce(s) Supporting Document(s) Adenovirus Not Detected Detected Not [facility] Coronavirus 229E Not Detected Detected Not [facility] Coronavirus HKU1 Not Detected Detected Not [facility] Coronavirus NL63 Not Detected Detected Not [facility] Coronavirus OC43 Not Detected Detected Not [facility] Sars Cov 2 Not Detected Detected Not [facility] Human Metapneumovirus Not Detected Detected [facility] Human Rhinovirus DETECTED Detected [facility] Influenza A Not Detected Detected [facility] Influenza B Not Detected Detected [facility] Parainfluenza Virus [address] [facility] Parainfluenza Virus [address] [facility] Parainfluenza Virus [address] [facility] Parainfluenza Virus 4 Not Detected Detected Not [facility] Respiratory Syncytial Virus Not Detected Detected Not [facility] Bordetella parapertus (PR3976) Not Detected Detected Not [facility] Bordetella pertussis (ptxP) Not Detected Detected Not [facility] Chlamydia pneumoniae Not Detected Detected Not [facility] Mycoplasma pneumoniae Not Detected Detected Not [facility] The Above results have been determined b y using the [employer] system.FilmArray is an automated in vitro diagnostic system thatutilizes nested multiplex Polymerase Chain Reaction (PCR)and high-resolution melting analysis to detect and identifymultiple nucleic acid targets from clinical specimens. ID Date Data Source [id number] 10/26/2019 02:48:00 PM EDT [facility] TSYSORDER [id number] Name Value Range Interpretation Code Description Data Pennie rce(s) Supporting Document(s) LACTIC ACID 0.9 mmol/L 0.4-2.0 [facility] ID Date Data Source [id number] 10/26/2019 02:45:00 PM EDT [facility] TSYSORDER [id number] Name Value Range Interpretation Code Description Data Pennie rce(s) Supporting Document(s) TSH 1.23 uIU/mL 0.36-3.74 [facility] ID Date Data Source [id number] 10/26/2019 02:45:00 PM EDT [facility] TSYSORDER [id number] Name Value Range Interpretation Code Description Data Pennie rce(s) Supporting Document(s) FREE T4 1.40 ng/dL 0.76-1.46 [facility] ID Date Data Source [id number] 10/26/2019 02:14:00 PM EDT [facility] TSYSORDER [id number] Name Value Range Interpretation Code Description Data Pennie rce(s) Supporting Document(s) WHITE BLOOD COUNT 12.6 K/mm3 4.0-10.0 H [facility] spring RED BLOOD COUNT 3.45 M/mm3 4.50-6.00 L [facility] HEMOGLOBIN 9.8 gm/dL 14.0-18.0 L [facility] HEMATOCRIT 29.6 % 42.0-54.0 L [facility] MEAN CELL VOLUME 85.8 fl 80-96 [facility] l MEAN CORPUSCULAR HEMOGLOBIN 28.4 pg 27.0-31.0 [facility] MEAN CORPUSCULAR HGB CONC 33.1 g/dl 32.0-36.0 [facility] RED CELL DISTRIBUTION WIDTH 18.3 % 10.0-14.5 H [facility] PLATELET COUNT 214 K/mm3 172-450 [facility] MEAN PLATELET VOLUME 10.8 fl 9.0-13.0 [facility] pital GRAN % 75.1 % 50-80.0 [facility] IG% 2.5 % 0.0-0.2 *H [facility] LYMPH % 4.4 % 25.0-50.0 *L [facility] MONO % 16.8 % 2.0-10.0 H [facility] EOS % 0.5 % 0-5.0 [facility] BASO % 0.7 % 0.0-2.0 [facility] GRAN # 9.5 K/mm3 2.0-8.00 H [facility] IG# 0.3 K/mm3 0.0-0.2 H [facility] LYMPH # 0.6 K/mm3 1.0-5.0 L [facility] MONO # 2.1 K/mm3 0.10-1.20 H [facility] EOS # 0.1 K/mm3 0.0-0.5 [facility] BASO # 0.1 K/mm3 0.0-0.2 [facility] ID Date Data Source [id number] 10/26/2019 01:35:00 PM EDT [facility] TSYS[facility] [id number] Name Value Range Interpretation Code Description Data Pennie rce(s) Supporting Document(s) NEUTROPHILS 83 % 50-80 H [facility] LYMPHOCYTE 6 % 25-50 L [facility] MONOCYTE 11 % 2.0-10.0 H [facility] ANISOCYTOSIS 2+ [facility] OVALOCYTES 1+ [facility] ACANTHOCYTES 1+ [facility] PLATELET ESTIMATE NORMAL NORMAL [facility] RBC MORPHOLOGY EXPECTED RESULTS:NORMAL= NORMOCHROMIC, NORMOCYTIC CELLSAbnormal Morphologic Findings > or = to 1+ are reported.Clinicopathologic correlation by the provider is required todetermine significance of finding. ID Date Data Source [id number] 10/26/2019 02:10:00 PM EDT [facility] TSYSORDER [id number] Name Value Range Interpretation Code Description Data Pennie rce(s) Supporting Document(s) PH 7.39 7.31-7.41 [facility] VENOUS PCO2 47.6 mmHg 41-51 [facility] VENOUS PO2 41 mmHg 35-42 [facility] VENOUS BLODD O2 SATURATION 68.5 % 68-77 [facility] VENOUS BLOOD HCO3 28.4 meq/L 24.0-25.0 H [facility] VENOUS BASE EXCESS 3.5 -3.0-3.0 H [facility] VENOUS BLOOD CO2 29.9 mmol/L 23.0-32.0 [facility] ID Date Data Source [id number] 11/01/2019 12:06:00 PM EDT [facility] Name Value Range Interpretation Code Description Data Pennie rce(s) Supporting Document(s) BLOOD CULTURE, ROUTINE Final report . [facility] 11/01/19 1206: BLOOD CULT, RT previousl y reported as: Preliminary report BC RESULT1 Comment . [facility] No aerobic or anaerobic growth in five d ays.Performed at: [facility] [address] [id number] Director: Linda Garsia MD, Phone: [phone]/03/20 1206: BC RESULT1 previously reported as: Comment No growth in 36 - 48 hours. Performed at: [facility] [address] [id number] Manager Express: Linda Garsia MD, Phone: [phone] 10/29/19 1405: BC RESULT1 previously reported as: Comment No growth after 16-24 hours. Performed at: [facility] [address] [id number] Manager [employer]: Linda Garsia MD, Phone: [phone] @ Edited by: @ Reason: [] ID Date Data Source [id number] 11/01/2019 12:05:00 PM EDT [facility] Name Value Range Interpretation Code Description Data Pennie rce(s) Supporting Document(s) Blood Culture, Routine Final report [facility] ID Date Data Source [id number] 11/01/2019 12:05:00 PM EDT [facility] Name Value Range Interpretation Code Description Data Pennie rce(s) Supporting Document(s) Result 1 [facility] No aerobic or anaerobic growth in five d ays. ID Date Data Source [id number] 10/26/2019 03:12:00 PM EDT [facility] TSYSORDER [id number] Name Value Range Interpretation Code Description Data Pennie rce(s) Supporting Document(s) ERYTHROCYTE SEDIMENTATION RATE 12 mm/hr 0-20 [facility] ID Date Data Source [id number] 10/26/2019 02:45:00 PM EDT [facility] TSYSORDER [id number] Name Value Range Interpretation Code Description Data Pennie rce(s) Supporting Document(s) B-TYPE NATRIURETIC PEPTIDE 751 pg/ml 0-450 *H [facility] ID Date Data Source [id number] 10/26/2019 01:13:00 PM EDT [facility] [...] noted. Base ofthe skull appears normal. IMPRESSION: Tuxs-qn-jpyjvvdj diffuse cerebral atrophy of aging. DATE OF [...] Name Value Range Interpretation Code Description [facility]) ID Date Data Source [id number] 10/26/2019 01:13:00 PM EDT [facility] [...] noted. Base ofthe skull appears normal. IMPRESSION: Fgnj-of-rcdaakpn diffuse cerebral atrophy of aging. DATE OF [...] Value Range Interpretation Code Description Data Pennie jen(s) Supporting Document(s) ID Date Data Source [id number] 10/26/2019 01:11:00 PM EDT [facility] [...] Data Source [id number] 10/26/2019 12:00:00 AM EDT [facility] Name Value Range Interpretation Code Description Data Pennie rce(s) Supporting Document(s) 2019 Novel Coronavirus RNA [facility] This lab was ordered by [facility] L aboratory and reported by [facility]. ID Date Data Source [id number] 10/21/2019 02:54:00 PM EDT [facility] ([facility] Name Value Range Interpretation Code Description Data Pennie rce(s) Supporting Document(s) Calcium [Mass/volume] in Serum or Plasma 8.5 [facility] ([facility] Sodium 144 [facility] ([facility]) Carbon dioxide, total [Moles/volume] in Serum or Plasma 30 [facility] ([facility] Potassium [Moles/volume] in Serum or Plasma 3.9 [facility] ([facility]) Chloride [Moles/volume] in Serum or Plasma 110 [facility] ([facility] Glucose 126 70-100 [facility] ([facility] Blood Urea Nitrogen 22 5-21 [facility] ([facility] Creatinine 1.03 0.6-1.5 [facility] ([facility]) Glomerular filtration rate/1.73 sq M.pre dicted [Volume Rate/Area] in Serum or Plasma by Creatinine-based formula (MDRD) Laboratory test result [facility] ([facility] ID Date Data Source [id number] 10/21/2019 02:54:00 PM EDT [facility] ([facility]) Name Value Range Interpretation Code Description Data Pennie rce(s) Supporting Document(s) White Blood Count 9.6 4.3-10.9 [facility] ([facility] Platelets 195 130-400 [facility] ([facility]) Hemoglobin 9.5 13.0-17.0 [facility] ([facility] Red Blood Count 3.31 4.70-6.20 [facility] ([facility] Hematocrit 29.8 39.0-50.0 [facility] ([facility]) ID Date Data Source [id number] 10/21/2019 02:54:00 PM EDT [facility] ([facility]) Name Value Range Interpretation Code Description Data Pennie rce(s) Supporting Document(s) Albumin [Mass/volume] in Serum or Plasma 2.8 [facility] ([facility]) Calcium [Mass/volume] in Serum or Plasma 8.5 [facility] ([facility]) Alanine aminotransferase [Enzymatic activity/volume] in Serum or Pl asma 15 [facility] ([facility]) Alkaline phosphatase [Enzymatic activity/volume] in Serum or Plasma 3 8 [facility] ([facility]) Chloride [Moles/volume] in Serum or Plasma 107 [facility] ([facility]) Carbon dioxide, total [Moles/volume] in Serum or Plasma 31 [facility] ([facility]) Sodium 140 [facility] ([facility]) Potassium [Moles/volume] in Serum or Plasma 3.9 [facility] ([facility]) Protein [Mass/volume] in Serum or Plasma 5.4 [facility] ([facility]) Urea nitrogen [Mass/volume] in Serum or Plasma 18 [facility] ([facility]) Aspartate aminotransferase [Enzymatic activity/volume] in Serum or Plasma 15 [facility] ([facility]) Glucose 88 70-100 [facility] ([facility]) Creatinine For GFR 1.07 [facility] ([facility]) ID Date Data Source [id number] 10/21/2019 10:00:00 AM EDT [facility] ([facility] Name Value Range Interpretation Code Description Data Pennie rce(s) Supporting Document(s) Glucose, Fasting 88 mg/dL 70-100 Normal (applies to non-numeric results) [facility] ([facility] Blood Urea Nitrogen [...] Little GFR Left</content>
<content>ESRD GFR <15 on EVP [place]</content>
<content></content> Creatinine For GFR 1.07 mg/dL 0.70-1.30 [...] 0.2-1.0 Normal (applies to non-numeric results) [facility] ([facility] Total Protein 5.4 GM/DL 6.4-8.2 Below low normal MED[facility] T ([facility] Albumin/Globulin Ratio 1.1 Normal (applies to non-n umeric results) [facility] ([facility] ID Date Data Source [id number] 10/21/2019 10:00:00 AM EDT [facility] ([facility] Name Value Range Interpretation Code Description Data Pennie rce(s) Supporting Document(s) Red Blood Count 3.31 10 4.30-6.10 Below low normal [facility] ([facility] White Blood Count 9.6 10 4.0-10.0 Normal (applies to non-numeri c results) [facility] ([facility] Mean Corpuscular Volume 90.0 fl 80.0-96.0 Normal ( applies to non-numeric results) [facility] ([facility] ) Hematocrit 29.8 % 42.0-52.0 Below low normal [facility] ( [facility] Hemoglobin 9.5 g/dL 13.5-17.5 Below low normal [facility] ( [facility] Red Cell Distribution Width 18.6 % 11.5-14.5 Above high normal [facility] ([facility] Mean Corpuscular Hemoglobin 28.7 pg 27.0-33.0 Norm al (applies to non-numeric results) MEDENT ([facility] ) Mean Corpuscular HGB Conc 31.9 g/dL 32.0-36.5 Below low normal [facility] ([facility] Lymph % 7.9 % 24.0-44.0 Below low normal MEDENT ( [facility] Platelet Count, Automated 195 10 150-450 Normal (applies to non-numeric results) MEDENT ([facility] ) Neutrophils % 72.3 % 36.0-66.0 Above high normal MEDE NT ([facility] Lyon % 14.5 % 0.0-5.0 Above high normal MEDENT ([facility] Eos % 0.6 % 0.0-3.0 Normal (applies to non-numeric resul ts) MEDENT ([facility] Baso % 0.4 % 0.0-1.0 Normal (applies to non-numeric resul ts) MEDENT ([facility] Immature Granulocyte % 4.3 % 0-3.0 Above high normal MEDENT ([facility] Nucleated Red Blood Cell % 0.0 % 0-0 Normal (applies to n on-numeric results) MED[facility] ([facility] Neutrophils # 6.9 10 1.5-8.5 Normal (applies to non-numeric re sults) MED[facility] ([facility] Eos # 0.1 10 0.0-0.5 Normal (applies to non-numeric resul ts) MEDENT ([facility] Lymph # 0.8 10 1.5-5.0 Below low normal MEDENT ( [facility] Lyon # 1.4 10 0.0-0.8 Above high normal MEDENT ([facility] Baso # 0.0 10 0.0-0.2 Normal (applies to non-numeric resul ts) MED[facility] ([facility] ID Date Data Source [id number] 10/11/2019 02:44:00 PM EDT MEDENT ([facility] Name Value Range Interpretation Code Description Data Pennie rce(s) Supporting Document(s) Glu 214 mg/dL 70-110 Above high normal MEDENT ([facility] CHRONIC KIDNEY DISEASE STAGING [...] mL/min Normal BUN 19 mg/dL 8-23 MEDENT ([facility] CHRONIC KIDNEY DISEASE [...] 1.3 mg/dL 0.7-1.2 Above high normal MEDENT ([facility] CHRONIC KIDNEY DISEASE STAGING [...] mL/min Normal BUN/Creatinine Ratio 14.8 Calc MEDENT ([facility] CHRONIC KIDNEY DISEASE [...] mL/min Normal Co2 25.8 mmol/L 22.0-29.0 MEDENT ([facility] CHRONIC KIDNEY DISEASE STAGING [...] >32 mL/min Normal K 4.1 mmol/L 3.5-5.1 DAWNA ([facility] CHRONIC KIDNEY DISEASE STAGING [...] >32 mL/min Normal CA 8.8 mg/dL 8.6-10.2 [facility] CHRONIC KIDNEY DISEASE STAGING PER [...] mL/min Normal Na 138 mmol/L 136-145 MEDZAFAR ([facility] CHRONIC KIDNEY DISEASE STAGING [...] mL/min Normal Anion Gap 12 mmol/L DAWNA ([facility] CHRONIC KIDNEY DISEASE STAGING PER [...] mL/min Normal CL 104.0 mmol/L 98.0-107.0 DAWNA ([facility] CHRONIC KIDNEY DISEASE STAGING [...] mL/min Normal eGFR 58 # DAWNA ( [facility] CHRONIC KIDNEY DISEASE STAGING [...] and above >32 mL/min Normal eGFR Non-Afr. [place] 50 # MEDENT ([facility] CHRONIC KIDNEY DISEASE STAGING [...] >32 mL/min Normal ID Date Data Source [id number] 10/11/2019 02:44:00 PM EDT MEDENT ([facility] Name Value Range Interpretation Code Description Data Pennie rce(s) Supporting Document(s) Hemoglobin [Mass/volume] in Blood 10.3 g/dL 13.0-17.7 Below low nor mal MEDENT ([facility] Erythrocytes [#/volume] in Blood by Automated count 3.55 x10E6/u L 4.14-5.80 Below low normal MEDENT ([facility] ) Leukocytes [#/volume] in Blood by Automated count 12.9 x10E3/uL 3.4-10.8 Above high normal MEDENT ([facility] ) Hematocrit [Volume Fraction] of Blood by Automated count 31.5 % 37.5-51.0 Below low normal MEDENT ([facility] ) Erythrocyte mean corpuscular volume [Entitic volume] by Auto mated count 89 fL 79-97 [facility] ([facility] Erythrocyte distribution width [Ratio] by Automated count 17.7 % 11.6-15.4 Above high normal [facility] ([facility] ) Erythrocyte mean corpuscular hemoglobin concentration [Mass/volume] by Automated count 32.7 g/dL 31.5-35.7 MED[facility] ([facility] Erythrocyte mean corpuscular hemoglobin [Entitic mass] by Automated count 29.0 pg 26.6-33.0 [facility] ([facility] Neutrophils 79 % MED[facility] ([facility] Platelets [#/volume] in Blood by Automated count 287 x10E3/uL 150-450 [facility] ([facility] Lymphs 5 % [facility] Eosinophils/100 leukocytes in Blood [...] 0.4 x10E3/uL 0.0-0.1 Above high normal MEDENT ([facility] (An elevated percentage of Immature Gran ulocytes has not been found to be clinically significant as a sole clinical predictor of disease. Does NOT include bands or blast cells. associated physiological leukocytosis may also show increased immature granulocytes without clinical significance.) Immature granulocytes/100 leukocytes in Blood by Automated count 3 % MEDENT ([facility] Nucleated erythrocytes/100 leukocytes [Ratio] in Blood by Automated count Laboratory test result MEDENT ([facility] Morphology [Interpretation] in Blood Narrative Laboratory test result MEDENT ([facility] ID Date Data Source [id number] 10/01/2019 08:40:00 AM EDT MED[facility] ([facility] Name Value Range Interpretation Code Description Data Pennie rce(s) Supporting Document(s) White Blood Count 6.1 4.0-10.0 MEDENT ([facility]) Platelets 175 150-450 [facility] ([facility]) Red Blood Count 3.07 4.30-6.10 [facility] ([facility] Hemoglobin 8.7 [facility] ([facility] [place] Hematocrit 28.0 [facility] ([facility] [place]) ID Date Data Source [id number] 10/01/2019 08:40:00 AM EDT MEDENT ([facility] Name Value Range Interpretation Code Description Data Pennie rce(s) Supporting Document(s) Glucose 82 70-100 [facility] ([facility] [place] Creatinine 0.96 0.6-1.0 [facility] ([facility]) Blood Urea Nitrogen 9 7-18 [facility] ([facility]) Sodium 143 136-145 [facility] ([facility] [place] Chloride 107 98-107 [facility] ([facility] [place] Potassium 4.1 3.5-5.1 [facility] ([facility] [place] Carbon Dioxide 30 21-32 MED[facility] ([facility] Calcium 8.4 8.2-9.6 [facility] ([facility] [place] Glomerular filtration rate/1.73 sq M.pre dicted [Volume Rate/Area] in Serum or Plasma by Creatinine-based formula (MDRD) Laboratory test result MEDENT ([facility]) ID Date Data Source [id number] 09/27/2019 08:54:00 AM EDT MEDENT ([facility] Name Value Range Interpretation Code Description Data Pennie rce(s) Supporting Document(s) Laboratory test finding (navigational concept) 27.0 % 3 8.0-51.0 Below low normal [facility] ([facility] ) Laboratory test finding (navigational concept) 100 mg/dL 7 0-105 Normal (applies to non-numeric results) [facility] ([facility] Laboratory test finding (navigational concept) 140 meq/L 1 36-145 Normal (applies to non-numeric results) [facility] ([facility] Laboratory test finding (navigational concept) 3.5 meq/L 3 .5-5.1 Normal (applies to non-numeric results) [facility] ([facility] Laboratory test finding (navigational concept) 95 meq/L 98-109 Below low normal [facility] ([facility] Laboratory test finding (navigational concept) 4.7 mg/dL 4 .5-5.3 Normal (applies to non-numeric results) [facility] ([facility] Laboratory test finding (navigational concept) 9 mg/dL 8 -26 Normal (applies to non-numeric results) [facility] ([facility] Laboratory test finding (navigational concept) 1.3 mg/dL 0 .6-1.3 Normal (applies to non-numeric results) [facility] ([facility] Laboratory test finding (navigational concept) 30.0 MM/L 2 3.0-27.0 Above high normal [facility] ([facility] ) ID Date Data Source [id number] 09/21/2019 02:32:00 PM EDT MEDENT ([facility] Name Value Range Interpretation Code Description Data Pennie rce(s) Supporting Document(s) Lipoprotein lipase [Enzymatic activity/volume] in Serum or P lasma 167 U/L 73-393 Normal (applies to non-numeric results) MED[facility] ([facility] ID Date Data Source [id number] 09/21/2019 02:32:00 PM EDT MEDENT ([facility] Name Value Range Interpretation Code Description Data Pennie rce(s) Supporting Document(s) Glucose, Fasting 126 mg/dL 70-100 Above high normal M EDENT ([facility] Creatinine For GFR 1.93 mg/dL 0.70-1.30 Above high normal MEDENT ([facility] Blood Urea Nitrogen 22 mg/dL 7-18 Above high normal MED[facility] ([facility] Glomerular Filtration Rate 35.5 Normal (applies to n on-numeric results) MEDENT ([facility] <content>Units are mL/min/1.73 m2</content>
<content></content>
<content>Chronic Kidney Disease Staging per NKF:</content>
<content></content>
<content>Stage I & II GFR >=60 Normal to Mildly Decreased</content>
<content>Stage III GFR 30-59 Moderately Decreased</content>
<content>Stage IV GFR 15-29 Severely Decreased</content>
<content>Stage V GFR <15 Very Little GFR Left</content>
<content>ESRD GFR <15 on EVP [place]</content>
<content></content> Potassium Serum 3.4 meq/L 3.5-5.1 Below low normal MED ENT ([facility] Sodium Level 139 meq/L 136-145 Normal (applies to non-numeric res ults) MED[facility] ([facility] Chloride Level 100 meq/L 98-107 Normal (applies to non-numeric r esults) MED[facility] ([facility] Anion Gap 5 meq/L 8-16 Below low normal MEDENT ( [facility] Calcium Level 8.9 mg/dL 8.8-10.2 Normal (applies to non-numeric re sults) MED[facility] ([facility] Carbon Dioxide Level 34 meq/L 21-32 Above high normal MEDENT ([facility] ID Date Data Source [id number] 09/21/2019 02:32:00 PM EDT MED[facility] ([facility] Name Value Range Interpretation Code Description Data Pennie rce(s) Supporting Document(s) Alt/SGPT 20 U/L 12-78 Normal (applies to non-numeric resul ts) MEDENT ([facility] Ast/Sgot 26 U/L 7-37 Normal (applies to non-numeric resul ts) MED[facility] ([facility] Bilirubin,Total 0.6 mg/dL 0.2-1.0 Normal (applies to non-numeric results) MEDENT ([facility] Alkaline Phosphatase 39 U/L 45-117 Below low normal MEDENT ([facility] Bilirubin,Direct 0.3 mg/dL 0.0-0.2 Above high normal M EDENT ([facility] Total Protein 5.8 GM/DL 6.4-8.2 Below low normal MEDEN T ([facility] Albumin/Globulin Ratio 0.9 Normal (applies to non-n umeric results) MEDENT ([facility] Albumin 2.8 GM/DL 3.2-5.2 Below low normal MEDENT ( [facility] ID Date Data Source [id number] 09/21/2019 02:32:00 PM EDT MEDENT ([facility] Name Value Range Interpretation Code Description Data Pennie rce(s) Supporting Document(s) Hemoglobin 11.0 g/dL 13.5-17.5 Below low normal MEDENT ( [facility] Red Blood Count 3.76 10 4.30-6.10 Below low normal MED ENT ([facility] White Blood Count 7.9 10 4.0-10.0 Normal (applies to non-numeri c results) MEDENT ([facility] Mean Corpuscular Volume 89.6 fl 80.0-96.0 Normal ( applies to non-numeric results) MEDENT ([facility] ) Hematocrit 33.7 % 42.0-52.0 Below low normal MEDENT ( [facility] Mean Corpuscular Hemoglobin 29.3 pg 27.0-33.0 Norm al (applies to non-numeric results) MEDENT ([facility] ) Red Cell Distribution Width 19.0 % 11.5-14.5 Above high normal MEDENT ([facility] Platelet Count, Automated 205 10 150-450 Normal (applies to non-numeric results) MED[facility] ([facility] ) Mean Corpuscular HGB Conc 32.6 g/dL 32.0-36.5 Normal (applies to non-numeric results) MED[facility] ([facility] ) Lyon % 13.6 % 0.0-5.0 Above high normal MEDENT ([facility] Lymph % 8.4 % 24.0-44.0 Below low normal MEDENT ( [facility] Neutrophils % 73.1 % 36.0-66.0 Above high normal MEDE NT ([facility] Baso % 0.5 % 0.0-1.0 Normal (applies to non-numeric resul ts) MEDENT ([facility] Eos % 0.4 % 0.0-3.0 Normal (applies to non-numeric resul ts) MEDENT ([facility] Immature Granulocyte % 4.0 % 0-3.0 Above high normal MED[facility] ([facility] Nucleated Red Blood Cell % 0.0 % 0-0 Normal (applies to n on-numeric results) MEDENT ([facility] Neutrophils # 5.8 10 1.5-8.5 Normal (applies to non-numeric re sults) MEDENT ([facility] Lymph # 0.7 10 1.5-5.0 Below low normal MEDENT ( [facility] Lyon # 1.1 10 0.0-0.8 Above high normal MEDENT ([facility] Baso # 0.0 10 0.0-0.2 Normal (applies to non-numeric resul ts) MED[facility] ([facility] Eos # 0.0 10 0.0-0.5 Normal (applies to non-numeric resul ts) MEDENT ([facility] ID Date Data Source [id number] 09/16/2019 02:38:00 PM EDT MEDENT ([facility] Name Value Range Interpretation Code Description Data Pennie rce(s) Supporting Document(s) White Blood Count 8.7 10 4.0-10.0 Normal (applies to non-numeri c results) MEDENT ([facility] Red Blood Count 3.76 10 4.30-6.10 Below low normal MED ENT ([facility] Hematocrit 34.4 % 42.0-52.0 Below low normal MEDENT ( [facility] Mean Corpuscular Volume 91.5 fl 80.0-96.0 Normal ( applies to non-numeric results) MEDENT ([facility] ) Hemoglobin 10.8 g/dL 13.5-17.5 Below low normal MEDENT ( [facility] Mean Corpuscular Hemoglobin 28.7 pg 27.0-33.0 Norm al (applies to non-numeric results) MEDENT ([facility] ) Red Cell Distribution Width 19.7 % 11.5-14.5 Above high normal MEDENT ([facility] Mean Corpuscular HGB Conc 31.4 g/dL 32.0-36.5 Below low normal MEDENT ([facility] Platelet Count, Automated 168 10 150-450 Normal (applies to non-numeric results) MED[facility] ([facility] ) Neutrophils % 70.5 % 36.0-66.0 Above high normal MEDE NT ([facility] Lymph % 7.3 % 24.0-44.0 Below low normal MEDENT ( [facility] Eos % 0.7 % 0.0-3.0 Normal (applies to non-numeric resul ts) MEDENT ([facility] Lyon % 16.3 % 0.0-5.0 Above high normal MEDENT ([facility] Nucleated Red Blood Cell % 0.0 % 0-0 Normal (applies to n on-numeric results) MEDENT ([facility] Immature Granulocyte % 4.6 % 0-3.0 Above high normal MEDENT ([facility] Neutrophils # 6.2 10 1.5-8.5 Normal (applies to non-numeric re sults) MEDENT ([facility] Baso % 0.6 % 0.0-1.0 Normal (applies to non-numeric resul ts) MEDENT ([facility] Eos # 0.1 10 0.0-0.5 Normal (applies to non-numeric resul ts) MEDENT ([facility] Lymph # 0.6 10 1.5-5.0 Below low normal MEDENT ( [facility] Lyon # 1.4 10 0.0-0.8 Above high normal MEDENT ([facility] Baso # 0.1 10 0.0-0.2 Normal (applies to non-numeric resul ts) MEDENT ([facility] ID Date Data Source [id number] 09/16/2019 02:38:00 PM EDT MEDENT ([facility] Name Value Range Interpretation Code Description Data Pennie rce(s) Supporting Document(s) Alt/SGPT 16 U/L 12-78 Normal (applies to non-numeric resul ts) MEDENT ([facility] Ast/Sgot 20 U/L 7-37 Normal (applies to non-numeric resul ts) MEDENT ([facility] Alkaline Phosphatase 35 U/L 45-117 Below low normal MEDENT ([facility] Bilirubin,Direct 0.3 mg/dL 0.0-0.2 Above high normal M EDENT ([facility] Total Protein 5.5 GM/DL 6.4-8.2 Below low normal MEDEN T ([facility] Bilirubin,Total 0.7 mg/dL 0.2-1.0 Normal (applies to non-numeric results) MED[facility] ([facility] Albumin 2.9 GM/DL 3.2-5.2 Below low normal MEDENT ( [facility] Albumin/Globulin Ratio 1.1 Normal (applies to non-n umeric results) MEDENT ([facility] ID Date Data Source [id number] 09/16/2019 02:38:00 PM EDT MEDENT ([facility] Name Value Range Interpretation Code Description Data Pennie rce(s) Supporting Document(s) Creatinine For GFR 1.38 mg/dL 0.70-1.30 Above high normal MEDENT ([facility] Blood Urea Nitrogen 15 mg/dL 7-18 Normal (applies to non-nume cristian results) MEDENT ([facility] Glucose, Fasting 85 mg/dL 70-100 Normal (applies to non-numeric results) MED[facility] ([facility] Potassium Serum 4.3 meq/L 3.5-5.1 Normal (applies to non-numeric results) MEDENT ([facility] Sodium Level 142 meq/L 136-145 Normal (applies to non-numeric res ults) MEDENT ([facility] Glomerular Filtration Rate 52.3 Normal (applies to n on-numeric results) MEDENT ([facility] <content>Units are mL/min/1.73 m2</content>
<content></content>
<content>Chronic Kidney Disease Staging per NKF:</content>
<content></content>
<content>Stage I & II GFR >=60 Normal to Mildly Decreased</content>
<content>Stage III GFR 30-59 Moderately Decreased</content>
<content>Stage IV GFR 15-29 Severely Decreased</content>
<content>Stage V GFR <15 Very Little GFR Left</content>
<content>ESRD GFR <15 on [place]P [place]</content>
<content></content> Carbon Dioxide Level 29 meq/L 21-32 Normal (applies to non-num romeo results) MEDENT ([facility] Anion Gap 7 meq/L 8-16 Below low normal MEDENT ( [facility] Chloride Level 106 meq/L 98-107 Normal (applies to non-numeric r esults) MEDENT ([facility] Calcium Level 8.4 mg/dL 8.8-10.2 Below low normal MEDEN T ([facility] ID Date Data Source [id number] 09/16/2019 02:38:00 PM EDT MEDENT ([facility] Name Value Range Interpretation Code Description Data Pennie rce(s) Supporting Document(s) Lipoprotein lipase [Enzymatic activity/volume] in Serum or P lasma 124 U/L 73-393 Normal (applies to non-numeric results) MEDENT ([facility] ID Date Data Source [id number] 09/16/2019 02:38:00 PM EDT MEDENT ([facility] Name Value Range Interpretation Code Description Data Pennie rce(s) Supporting Document(s) Respiratory Panel Laboratory test result MEDENT ([facility] This respiratory PCR panel detects [...] 1: HUMAN RHINOVIRUS/ENTEROVIRUS ID Date Data Source [id number] 09/03/2019 10:07:00 AM EDT DAWNA ([facility]) Name Value Range Interpretation Code Description Data Pennie rce(s) Supporting Document(s) Erythrocytes [#/volume] in Blood by Automated count 3.72 x10E6/uL 4.1 4-5.80 DAWNA ([facility]) CHRONIC KIDNEY DISEASE STAGING PER NKF: MALE [...] by Automated count 9.5 x10E3/uL 3.4-10 .8 DAWNA ([facility]) CHRONIC KIDNEY DISEASE STAGING PER NKF: MALE [...] 32.8 % 3 7.5-51.0 MEDENT ([facility]) CHRONIC KIDNEY DISEASE STAGING PER NKF: MALE [...] Blood 10.8 g/dL 13.0-17.7 MEDENT ([facility]) CHRONIC KIDNEY DISEASE STAGING PER NKF: MALE [...] Auto mated count 88 fL 79-97 MED[facility] ([facility] CHRONIC KIDNEY DISEASE STAGING PER NKF: MALE [...] by Automated count 29.0 pg 26.6-33.0 MEDENT ([facility]) CHRONIC KIDNEY DISEASE STAGING PER NKF: MALE [...] g/dL 31.5-35.7 MEDENT ([facility] CHRONIC KIDNEY DISEASE STAGING PER NKF: MALE [...] count 17.7 % 11.6-15.4 MEDENT ([facility]) CHRONIC KIDNEY DISEASE STAGING PER NKF: MALE [...] count 191 x10E3/uL 150-450 MEDENT ([facility]) CHRONIC KIDNEY DISEASE STAGING PER NKF: MALE [...] Normal Neutrophils 73 % MEDENT ([facility]) CHRONIC KIDNEY DISEASE STAGING PER NKF: MALE [...] Lymphs 10 % MEDENT ([facility] CHRONIC KIDNEY DISEASE STAGING PER NKF: MALE [...] count 0 % [facility] ([facility] [facility] CHRONIC KIDNEY DISEASE STAGING PER NKF: MALE [...] Automated count 12 % [facility] ([facility]) CHRONIC KIDNEY DISEASE STAGING PER NKF: MALE [...] 6.9 x10E3/uL 1.4-7 .0 [facility] ([facility]) CHRONIC KIDNEY DISEASE STAGING PER NKF: MALE [...] count 0 % [facility] ([facility] CHRONIC KIDNEY DISEASE STAGING PER NKF: MALE [...] cells [#/volume] in Blood Laboratory test result [facility] ([facility]) CHRONIC KIDNEY DISEASE STAGING PER NKF: MALE [...] Lymphocytes [#/volume] in Blood 0.9 x10E3/uL 0.7-3.1 [facility] ([facility]) CHRONIC KIDNEY DISEASE STAGING PER NKF: MALE [...] 0.0 x10E3/uL 0.0-0 .4 [facility] ([facility]) CHRONIC KIDNEY DISEASE STAGING PER NKF: MALE [...] Blood 1.2 x10E3/uL 0.1-0.9 [facility] ([facility]) CHRONIC KIDNEY DISEASE STAGING PER NKF: MALE [...] 0.0 x10E3/uL 0.0-0.2 [facility] ([facility] CHRONIC KIDNEY DISEASE STAGING PER NKF: MALE [...] count 0.4 x10E3/uL 0.0-0.1 [facility] ([facility]) CHRONIC KIDNEY DISEASE STAGING PER NKF: MALE [...] Automated count 5 % [facility] ([facility]) CHRONIC KIDNEY DISEASE STAGING PER NKF: MALE [...] count Laboratory test result [facility] ([facility]) CHRONIC KIDNEY DISEASE STAGING PER NKF: MALE [...] Narrative Laboratory test result [facility] ([facility]) CHRONIC KIDNEY DISEASE STAGING PER NKF: MALE [...] >32 mL/min Normal ID Date Data Source [id number] 09/03/2019 10:07:00 AM YARIEL TONEY ([facility] Name Value Range Interpretation Code Description Data Pennie rce(s) Supporting Document(s) BUN 23 mg/dL 8-23 [facility] ([facility] CHRONIC KIDNEY DISEASE STAGING PER NKF: MALE [...] mg/dL 70-110 [facility] ([facility] CHRONIC KIDNEY DISEASE STAGING PER NKF: MALE [...] or Plasma 15.5 Calc [facility] ([facility]) CHRONIC KIDNEY DISEASE STAGING PER NKF: MALE [...] mg/dL 0.7-1.2 [facility] ([facility] CHRONIC KIDNEY DISEASE STAGING PER NKF: MALE [...] 4.2 mmol/L 3.5-5.1 [facility] ([facility] CHRONIC KIDNEY DISEASE STAGING PER NKF: MALE [...] Na 142 mmol/L 136-145 [facility] ([facility]) CHRONIC KIDNEY DISEASE STAGING PER NKF: MALE [...] 102.8 mmol/L 98.0-107.0 [facility] ([facility]) CHRONIC KIDNEY DISEASE STAGING PER NKF: MALE [...] mg/dL 8.6-10.2 [facility] ([facility] CHRONIC KIDNEY DISEASE STAGING PER NKF: MALE [...] g/dL 6.6-8.7 [facility] ([facility] CHRONIC KIDNEY DISEASE STAGING PER NKF: MALE [...] Co2 27.4 mmol/L 22.0-29.0 [facility] ([facility]) CHRONIC KIDNEY DISEASE STAGING PER NKF: MALE [...] 2.2 Calc [facility] ([facility] CHRONIC KIDNEY DISEASE STAGING PER NKF: MALE [...] g/dL 3.5-5.2 [facility] ([facility] CHRONIC KIDNEY DISEASE STAGING PER NKF: MALE [...] by calculation 1.7 Calc [facility] ([facility]) CHRONIC KIDNEY DISEASE STAGING PER NKF: MALE [...] U/L 40-129 [facility] ([facility] CHRONIC KIDNEY DISEASE STAGING PER NKF: MALE [...] Serum or Plasma 13 U/L 0-40 [facility] ([facility] Winder [facility] CHRONIC KIDNEY DISEASE STAGING PER NKF: MALE [...] Plasma 7 U/L 0-41 [facility] ([facility]) CHRONIC KIDNEY DISEASE STAGING PER NKF: MALE [...] or Plasma 16 mmol/L [facility] ([facility]) CHRONIC KIDNEY DISEASE STAGING PER NKF: MALE [...] Tbili 0.44 mg/dL 0.0-1.2 [facility] ([facility]) CHRONIC KIDNEY DISEASE STAGING PER NKF: MALE [...] Normal Osmolality-Calculated 291.8 Calc [facility] ([facility]) CHRONIC KIDNEY DISEASE STAGING PER NKF: MALE [...] eGFR 49 # [facility] ( [facility] CHRONIC KIDNEY DISEASE STAGING PER NKF: MALE [...] and above >32 mL/min Normal eGFR Non-Afr. Bots[place]an 42 # [facility] ([facility]) CHRONIC KIDNEY DISEASE STAGING PER NKF: MALE [...] >32 mL/min Normal ID Date Data Source [id number] 09/03/2019 10:07:00 AM EDT [facility] ([facility] Name Value Range [...] by Automated count 29.0 pg 26.6-33.0 [facility] ([facility] Erythrocyte mean corpuscular volume [Entitic volume] by Auto mated count 88 fL 79-97 [facility] ([facility] Erythrocyte mean corpuscular hemoglobin concentration [Mass/volume] by Automated count 32.9 g/dL 31.5-35.7 [facility] ([facility] Erythrocyte distribution width [Ratio] by Automated count 17.7 % 11.6-15.4 Above high normal [facility] ([facility] ) Platelets [#/volume] in Blood by Automated count 191 x10E3/uL 150-450 [facility] ([facility] Lymphs 10 % [facility] Monocytes/100 leukocytes in Blood by Automated count 12 % [facility] ([facility] Neutrophils 73 % [facility] ([facility] Eosinophils/100 leukocytes in [...] 0.4 x10E3/uL 0.0-0.1 Above high normal [facility] ([facility] (An elevated percentage of Immature Gran ulocytes has not been found to be clinically significant as a sole clinical predictor of disease. Does NOT include bands or blast cells. associated physiological leukocytosis may also show increased immature granulocytes without clinical significance.) Immature granulocytes/100 leukocytes in Blood by Automated count 5 % [facility] ([facility] Basophils [#/volume] in Blood by Automated count 0.0 x10E3/uL 0.0-0.2 [facility] ([facility] Nucleated erythrocytes/100 leukocytes [Ratio] in Blood by Automated count Laboratory test result [facility] ([facility] Morphology [Interpretation] in Blood Narrative Laboratory test result [facility] ([facility] ID Date Data Source [id number] 09/03/2019 10:07:00 AM EDT [facility] ([facility] Name Value Range Interpretation Code Description Data Pennie rce(s) Supporting Document(s) Glu 173 mg/dL 70-110 Above high normal [facility] ([facility] CHRONIC KIDNEY DISEASE [...] mL/min Normal Na 142 mmol/L 136-145 [facility] ([facility] CHRONIC KIDNEY DISEASE STAGING PER [...] mL/min Normal BUN/Creatinine Ratio 15.5 Calc [facility] ([facility] CHRONIC KIDNEY DISEASE [...] mL/min Normal BUN 23 mg/dL 8-23 [facility] CHRONIC KIDNEY DISEASE STAGING [...] >32 mL/min Normal CL 102.8 mmol/L 98.0-107.0 [facility] ([facility] CHRONIC KIDNEY DISEASE STAGING [...] mL/min Normal K 4.2 mmol/L 3.5-5.1 [facility] ([facility] juanita [facility] CHRONIC KIDNEY DISEASE STAGING [...] mL/min Normal CA 9.0 mg/dL 8.6-10.2 [facility] CHRONIC KIDNEY DISEASE STAGING [...] mL/min Normal Co2 27.4 mmol/L 22.0-29.0 [facility] ([facility] ctice [facility] CHRONIC KIDNEY DISEASE STAGING [...] >32 mL/min Normal Globulin 1.7 Calc [facility] ([facility] CHRONIC KIDNEY DISEASE STAGING [...] Normal Ast (Sgot) 13 U/L 0-40 [facility] ([facility] juanita [facility] CHRONIC KIDNEY DISEASE [...] Normal Alt (SGPT) 7 U/L 0-41 [facility] ([facility] Prac juanita [facility] CHRONIC KIDNEY DISEASE [...] Normal Tbili 0.44 mg/dL 0.0-1.2 [facility] ([facility] ju[facility], [...] >32 mL/min Normal Anion Gap 16 mmol/L DAW[facility] ([facility] CHRONIC KIDNEY [...] and above >32 mL/min Normal eGFR Non-Afr. [place]an 42 # [facility] ([facility] CHRONIC [...] mL/min Normal eGFR 49 # DAWNA ( [facility] CHRONIC KIDNEY DISEASE [...] >32 mL/min Normal ID Date Data Source [id number] 08/16/2019 02:44:00 PM EDT DAWNA ([facility] Name Value Range Interpretation Code Description Data Pennie rce(s) Supporting Document(s) Leukocytes [#/volume] in Blood by Automated count 12.4 x10E3/uL 3.4-10.8 Above high normal DAWNA ([facility] ) Hematocrit [Volume Fraction] [...] Auto mated count 87 fL 79-97 [facility] ([facility] Erythrocyte mean corpuscular hemoglobin concentration [Mass/volume] by Automated count 33.6 g/dL 31.5-35.7 [facility] ([facility] Erythrocyte mean corpuscular hemoglobin [Entitic mass] by Automated count 29.4 pg 26.6-33.0 [facility] ([facility] ciabrigette, [facility] Lymphs 6 % [facility] ([facility] jesenia [facility] Platelets [#/volume] in Blood by Automated count 189 x10E3/uL 150-450 [facility] ([facility] Erythrocyte distribution width [Ratio] by Automated count 17.7 % 11.6-15.4 Above high normal [facility] ([facility] ) Neutrophils 79 % [facility] ([facility] ctice [facility] Monocytes/100 leukocytes in [...] Automated count 0.1 x10E3/uL 0.0-0 .4 [facility] ([facility] Basophils [#/volume] in Blood by Automated count 0.1 x10E3/uL 0.0-0.2 [facility] ([facility] Monocytes [#/volume] in Blood 1.4 x10E3/uL 0.1-0.9 Above high norm al [facility] ([facility] Immature granulocytes/100 leukocytes in Blood by Automated count 2 % [facility] ([facility] Immature granulocytes [#/volume] in Blood by Automated count 0.3 x10E3/uL 0.0-0.1 Above high normal [facility] ([facility] (An elevated percentage of Immature Gran ulocytes has not been found to be clinically significant as a sole clinical predictor of disease. Does NOT include bands or blast cells. associated physiological leukocytosis may also show increased immature granulocytes without clinical significance.) Nucleated erythrocytes/100 leukocytes [Ratio] in Blood by Automated count Laboratory test result [facility] ([facility] Morphology [Interpretation] in Blood Narrative Laboratory test result [facility] ([facility] ID Date Data Source [id number] 08/16/2019 02:44:00 PM EDT [facility] ([facility] Name Value Range Interpretation Code Description Data Pennie rce(s) Supporting Document(s) Glu 143 mg/dL 70-110 Above high normal [facility] ([facility] CHRONIC KIDNEY DISEASE [...] mL/min Normal BUN/Creatinine Ratio 13.8 CALC [facility] ([facility] CHRONIC KIDNEY DISEASE [...] 1.8 mg/dL 0.7-1.2 Above high normal [facility] ([facility] CHRONIC KIDNEY DISEASE STAGING [...] 25 mg/dL 8-23 Above high normal [facility] ([facility] CHRONIC KIDNEY DISEASE [...] mL/min Normal K 3.7 mmol/L 3.5-5.1 [facility] ([facility] CHRONIC KIDNEY DISEASE STAGING PER [...] mL/min Normal Na 138 mmol/L 136-145 [facility] ([facility] Prac juanita [facility] CHRONIC KIDNEY DISEASE [...] mL/min Normal CA 9.1 mg/dL 8.6-10.2 [facility] ([facility] CHRONIC KIDNEY DISEASE [...] mL/min Normal Alb 3.6 g/dL 3.5-5.2 [facility] CHRONIC KIDNEY DISEASE STAGING [...] mL/min Normal A/G Ratio 1.8 CALC [facility] ([facility] CHRONIC KIDNEY DISEASE STAGING [...] >32 mL/min Normal Globulin 2.0 CALC [facility] ([facility] CHRONIC KIDNEY DISEASE [...] mL/min Normal Alp 44.9 U/L 40-129 [facility] ([facility] CHRONIC KIDNEY DISEASE [...] mL/min Normal Tbili 0.60 mg/dL 0.0-1.2 [facility] ([facility] juanita [facility] CHRONIC KIDNEY DISEASE STAGING [...] mL/min Normal Ast (Sgot) 16 U/L 0-40 [facility] ([facility] CHRONIC KIDNEY DISEASE STAGING PER [...] mL/min Normal Anion Gap 15 mmol/L [facility] ([facility] CHRONIC KIDNEY DISEASE [...] and above >32 mL/min Normal eGFR Non-Afr. [place]an 34 # [facility] ([facility] [...] mL/min Normal eGFR 39 # [facility] ( [facility] CHRONIC KIDNEY DISEASE STAGING [...] >32 mL/min Normal ID Date Data Source [id number] 08/08/2019 03:19:00 PM EDT [facility] Name Value Range Interpretation Code Description Data Pennie rce(s) Supporting Document(s) Glucose 144 70-100 [facility] ([facility] Sodium 144 136-145 [facility] ([facility] Blood Urea Nitrogen 17 7-18 [facility] (Ca rdiology [facility]) Creatinine 1.17 0.70-1.30 [facility] ([facility]) Potassium 4.2 3.5-5.1 [facility] ([facility]) Carbon Dioxide 36 21-32 [facility] ([facility]iol ogy [facility]) Chloride 106 98-107 [facility] ([facility]) Calcium 8.3 8.8-10.2 [facility] ([facility]) Glomerular filtration rate/1.73 sq M.pre dicted [Volume Rate/Area] in Serum or Plasma by Creatinine-based formula (MDRD) Laboratory test result [facility] ([facility]) ID Date Data Source [id number] 08/08/2019 03:19:00 PM EDT [facility] ([facility] Name Value Range Interpretation Code Description Data Pennie rce(s) Supporting Document(s) White Blood Count 9.6 4.0-10.0 [facility] ([facility]) Hemoglobin 11.8 [facility] ([facility]) Platelets 226 150-450 [facility] ([facility]) Red Blood Count 3.96 4.30-6.10 [facility] (Cardio logy [facility]) Hematocrit 37.6 [facility] ([facility]) ID Date Data Source [id number] 07/16/2019 06:39:00 PM EDT [facility] ([facility] Name Value Range Interpretation Code Description Data Pennie rce(s) Supporting Document(s) Ferritin [Mass/volume] in Serum or Plasma 235 ng/mL 26-388 Normal (applies to non-numeric results) [facility] ([facility]) Lactate dehydrogenase [Enzymatic activity/volume] in Serum o r Plasma 172 U/L 87-241 Normal (applies to non-numeric results) [facility] ([facility] C reactive protein [Mass/volume] in Serum or Plasma by High sensitivity method 14.70 mg/dL 0.00-0.30 Above high normal [facility] ([facility] ID Date Data Source [id number] 07/16/2019 06:39:00 PM EDT [facility] ([facility] Name Value Range Interpretation Code Description Data Pennie rce(s) Supporting Document(s) MB/CK Relative Index 3.57 Normal (applies to non-num romeo results) [facility] ([facility] <content>DIAGNOSIS CRITERIA</content>
<content>MMB ng/ml Relative Index (RI)</content>
<content>NON-AMI < or = 5 N/A</content>
<content>CHANEY ZONE > 5 < or = 4</content>
<content>AMI > 5 > 4</content>
<content></content> CK-MB Value Mass Laboratory test result Normal ( applies to non-numeric results) [facility] ([facility] ) CPK Creatine Phosphokinase 28 U/L 39-308 Below low normal [facility] ([facility] Troponin I Laboratory test result Normal (applies to non-n umeric results) [facility] ([facility] <content>Troponin I Reference Interval f or Siemens [place] LOCI:</content>
<content></content>
<content>99th Percentile= 0.00-0.045 ng/ml</content>
<content></content>
<content>Risk Stratification:</content>
<content><= 0.10 ng/ml Decreased Risk for Adverse Clinical</content>
<content>Events.</content>
<content>0.10-1.50 ng/ml Increased Risk for Adverse Clinical</content>
<content>Events. Evaluation of additional</content>
<content>criterion and/or repeat testing in 2-6</content>
<content>hours is suggested to rule out myocardial</content>
<content>damage.</content>
<content>>= 1.50 ng/ml Indicative of Myocardial Injury.</content>
<content></content> ID Date Data Source [id number] 07/16/2019 06:39:00 PM EDT [facility] ([facility] Name Value Range Interpretation Code Description Data Pennie rce(s) Supporting Document(s) Glucose, Fasting 120 mg/dL 70-100 Above high normal M EDENT ([facility] Creatinine For GFR 1.76 mg/dL 0.70-1.30 Above high normal [facility] ([facility] Blood Urea Nitrogen 24 mg/dL 7-18 Above high normal [facility] ([facility] Potassium Serum 4.0 meq/L 3.5-5.1 Normal (applies to non-numeric results) [facility] ([facility] Sodium Level 141 meq/L 136-145 Normal (applies to non-numeric res ults) [facility] ([facility] Glomerular Filtration Rate 39.5 Normal (applies to n on-numeric results) [facility] ([facility] <content>Units are mL/min/1.73 m2</content>
<content></content>
<content>Chronic Kidney Disease Staging per NKF:</content>
<content></content>
<content>Stage I & II GFR >=60 Normal to Mildly Decreased</content>
<content>Stage III GFR 30- 59 Moderately Decreased</content>
<content>Stage IV GFR 15-29 Severely Decreased</content>
<content>Stage V GFR <15 Very Little GFR Left</content>
<content>ESRD GFR <15 on EVP [place]</content>
<content></content> Carbon Dioxide Level 35 meq/L 21-32 Above high normal [facility] ([facility] Chloride Level 102 meq/L 98-107 Normal (applies to non-numeric r esults) [facility] ([facility] Anion Gap 4 meq/L 8-16 Below low normal [facility] ( [facility] Alt/SGPT 16 U/L 12-78 Normal (applies to non-numeric resul ts) [facility] ([facility] Ast/Sgot 22 U/L 7-37 Normal (applies to non-numeric resul ts) [facility] ([facility] Calcium Level 8.6 mg/dL 8.8-10.2 Below low normal [facility] T ([facility] Albumin 2.9 GM/DL 3.2-5.2 Below low normal [facility] ( [facility] Alkaline Phosphatase 38 U/L 45-117 Below low normal [facility] ([facility] Total Protein 5.7 GM/DL 6.4-8.2 Below low normal MEDEN T ([facility] Bilirubin,Total 0.5 mg/dL 0.2-1.0 Normal (applies to non-numeric results) [facility] ([facility] Albumin/Globulin Ratio 1.04 1.00-1.93 Normal (applies to non-numeric results) [facility] ([facility] ID Date Data Source [id number] 07/16/2019 06:39:00 PM EDT [facility] ([facility] Name Value Range Interpretation Code Description Data Epnnie rce(s) Supporting Document(s) Fibrin D-dimer FEU [Mass/volume] in Platelet poor plasma 325.56 ng/mL Normal (applies to non-numeric results) [facility] ([facility] Lactate [Mass/volume] in Serum or Plasma 0.8 mmol/L 0.4-2.0 Normal (applies to non-numeric results) [facility] ([facility]) Y/N query for Sepsis Lactate Rule: Y ID Date Data Source [id number] 07/16/2019 06:39:00 PM EDT [facility] ([facility] Name Value Range Interpretation Code Description Data Pennie rce(s) Supporting Document(s) Prothrombin Time 16.4 s 11.8-14.0 Above high normal M EDENT ([facility] Inr 1.35 Normal (applies to non-numeric resul ts) [facility] ([facility] THERAPUTIC HUMAN INR VALUES INDICATIONS NORMAL RANGES PROPHYLAXIS/TREATMENT OF: VENOUS THROMBOSIS 2.0-3.0 PULMONARY EMBOLISM 2.0-3.0 PREVENTION OF SYSTEMIC EMBOLISM FROM: TISSUE HEART VALVES 2.0-3.0 ACUTE MYOCARDIAL INFARCTION 2.0-3.0 VALVULAR HEART DISEASE 2.0-3.0 ATRIAL FIBRILLATION 2.0-3.0 MECHANICAL VALVES(HIGH RISK) 2.5-3.5 RECURRENT MYOCARDIAL INFARCTION 2.5-3.5 Partial Thromboplastin Time 38.3 s 25.0-38.4 Norm al (applies to non-numeric results) [facility] ([facility] ) ID Date Data Source [id number] 07/16/2019 06:39:00 PM EDT [facility] ([facility] Name Value Range Interpretation Code Description Data Pennie rce(s) Supporting Document(s) Red Blood Count 3.56 10 4.30-6.10 Below low normal [facility] ([facility] White Blood Count 8.1 10 4.0-10.0 Normal (applies to non-numeri c results) [facility] ([facility] Hematocrit 32.4 % 42.0-52.0 Below low normal [facility] ( [facility] Hemoglobin 10.5 g/dL 13.5-17.5 Below low normal [facility] ( [facility] Mean Corpuscular Volume 91.0 fl 80.0-96.0 Normal ( applies to non-numeric results) [facility] ([facility] ) Mean Corpuscular HGB Conc 32.4 g/dL 32.0-36.5 Normal (applies to non-numeric results) [facility] ([facility] ) Mean Corpuscular Hemoglobin 29.5 pg 27.0-33.0 Norm al (applies to non-numeric results) [facility] ([facility] ) Red Cell Distribution Width 19.5 % 11.5-14.5 Above high normal [facility] ([facility] Platelet Count, Automated 161 10 150-450 Normal (applies to non-numeric results) [facility] ([facility] ) Neutrophils % 68.2 % 36.0-66.0 Above high normal MEDE NT ([facility] Lymph % 6.0 % 24.0-44.0 Below low normal [facility] ( [facility] Baso % 0.4 % 0.0-1.0 Normal (applies to non-numeric resul ts) [facility] ([facility] [facility] Eos % 0.1 % 0.0-3.0 Normal (applies to non-numeric resul ts) [facility] ([facility] Lyon % 23.4 % 0.0-5.0 Above high normal [facility] ([facility] Immature Granulocyte % 1.9 % 0-3.0 Normal (applies to non-n umeric results) [facility] ([facility] Nucleated Red Blood Cell % 0.0 % 0-0 Normal (applies to n on-numeric results) [facility] ([facility] Lymph # 0.5 10 1.5-5.0 Below low normal [facility] ( [facility] Neutrophils # 5.5 10 1.5-8.5 Normal (applies to non-numeric re sults) [facility] ([facility] Eos # 0.0 10 0.0-0.5 Normal (applies to non-numeric resul ts) [facility] ([facility] Lyon # 1.9 10 0.0-0.8 Above high normal [facility] ([facility] Baso # 0.0 10 0.0-0.2 Normal (applies to non-numeric resul ts) [facility] ([facility] ID Date Data Source [id number] 07/16/2019 06:39:00 PM EDT [facility] ([facility] Name Value Range Interpretation Code Description Data Pennie rce(s) Supporting Document(s) Laboratory test finding (navigational concept) Laboratory test r esult Abnormal (applies to non-numeric results) [facility] DISCLAIMER: Testing was performed using the [employer] SARS-CoV-2 test. This test was developed and its performance characteristics determined by [employer]. This test has not been FDA cleared [...] or revoked sooner. ID Date Data Source [id number] 06/02/2019 09:52:00 AM EST [facility] Name Value Range Interpretation Code Description Data Pennie rce(s) Supporting Document(s) Magnesium Level 1.57 [facility] ([facility]) ID Date Data Source [id number] 06/02/2019 09:52:00 AM EST [facility] (Cardi [facility]) Name Value Range Interpretation Code Description Data Pennie rce(s) Supporting Document(s) White Blood Count 11.5 5.0-10.0 [facility] ([facility]) Red Blood Count 3.78 4.70-6.10 [facility] ([facility]) Platelets 207 172-450 [facility] ([facility]) Hematocrit 34.4 42.0-52.0 [facility] ([facility]) Hemoglobin 11.6 14.0-18.0 [facility] ([facility] [place]) ID Date Data Source [id number] 06/02/2019 09:52:00 AM EST [facility] ([facility] Name Value Range Interpretation Code Description Data Pennie rce(s) Supporting Document(s) Glucose 152 70-100 [facility] ([facility]) Blood Urea Nitrogen 24.2 7-25 [facility] (Ca [facility]diology [facility]) Glomerular filtration rate/1.73 sq M.pre dicted [Volume Rate/Area] in Serum or Plasma by Creatinine-based formula (MDRD) 43 [facility] ([facility]) Creatinine 1.56 0.6-1.4 [facility] ([facility]) Chloride 99.5 98-110 [facility] ([facility] [place] Potassium 3.87 3.5-5.3 [facility] ([facility]) Sodium 139.0 136-146 [facility] ([facility] [place]) Phosphorus 2.99 [facility] ([facility]) Carbon Dioxide 33.1 22-33 [facility] ([facility]) Calcium 8.98 8.4-10.4 [facility] ([facility] Albumin 4.1 3.5-4.7 [facility] ([facility]) ID Date Data Source [id number] 05/26/2019 01:12:00 PM EST [facility] ([facility] Name Value Range Interpretation Code Description Data Pennie rce(s) Supporting Document(s) Leukocytes [#/volume] in Blood by Automated count 9.5 x10E3/uL 3.4-10 .8 [facility] ([facility] Erythrocytes [#/volume] in Blood by Automated count 3.55 x10E6/u L 4.14-5.80 Below low normal [facility] ([facility] ) Hemoglobin [Mass/volume] in Blood 10.4 g/dL 13.0-17.7 Below low nor mal [facility] ([facility] Hematocrit [Volume Fraction] of Blood by Automated count 32.5 % 37.5-51.0 Below low normal [facility] ([facility] ) Erythrocyte mean corpuscular volume [Entitic volume] by Auto mated count 92 fL 79-97 [facility] ([facility] Erythrocyte mean corpuscular hemoglobin concentration [Mass/volume] by Automated count 32.0 g/dL 31.5-35.7 [facility] ([facility] Erythrocyte distribution width [Ratio] by Automated count 18.9 % 11.6-15.4 Above high normal [facility] ([facility] ) Erythrocyte mean corpuscular hemoglobin [Entitic mass] by Automated count 29.3 pg 26.6-33.0 [facility] ([facility] Platelets [#/volume] in Blood by Automated count 172 x10E3/uL 150-450 [facility] ([facility] Lymphs 11 % [facility] Neutrophils 79 % [facility] ([facility] Immature cells [#/volume] [...] Automated count 0.0 x10E3/uL 0.0-0 .4 [facility] ([facility] Basophils [#/volume] in Blood by Automated count 0.0 x10E3/uL 0.0-0.2 [facility] ([facility] Immature granulocytes/100 leukocytes in Blood by Automated count 5 % [facility] ([facility] Morphology [Interpretation] in Blood Narrative Laboratory test result [facility] ([facility] Immature granulocytes [#/volume] in Blood by Automated count 0.5 x10E3/uL 0.0-0.1 Above high normal [facility] ([facility] (An elevated percentage of Immature Gran ulocytes has not been found to be clinically significant as a sole clinical predictor of disease. Does NOT include bands or blast cells. associated physiological leukocytosis may also show increased immature granulocytes without clinical significance.) Nucleated erythrocytes/100 leukocytes [Ratio] in Blood by Automated count Laboratory test result [facility] ([facility] ID Date Data Source [id number] 05/26/2019 01:12:00 PM EST [facility] ([facility] Name Value Range Interpretation Code Description Data Pennie rce(s) Supporting Document(s) Glu 161 mg/dL 70-110 Above high normal [facility] ([facility] CLASSIFICATION CHOLESTEROL FO R [...] 32 mg/dL 8-23 Above high normal [facility] ([facility] CLASSIFICATION CHOLESTEROL FO [...] 1.7 mg/dL 0.7-1.2 Above high normal [facility] ([facility] CLASSIFICATION CHOLESTEROL FO R [...] mL/min Normal BUN/Creatinine Ratio 18.5 Calc [facility] ([facility] CLASSIFICATION CHOLESTEROL FO [...] mL/min Normal Co2 27.2 mmol/L 22.0-29.0 [facility] ([facility] CLASSIFICATION CHOLESTEROL FO R ADULTS [...] mL/min Normal CA 9.2 mg/dL 8.6-10.2 [facility] CLASSIFICATION CHOLESTEROL FO R [...] Normal Alt (SGPT) 14 U/L 0-41 [facility] CLASSIFICATION CHOLESTEROL FO R ADULTS [...] and above >32 mL/min Normal eGFR Non-Afr. Botswanan 36 # [facility] ([facility] [...] >32 mL/min Normal ID Date Data Source [id number] 05/26/2019 01:12:00 PM EST [facility] ([facility] Name Value Range Interpretation Code Description Data Pennie rce(s) Supporting Document(s) Prostate specific Ag [Mass/volume] in Serum or Plasma 44 mg/dL 35-5 5 [facility] ([facility] CLASSIFICATION CHOLESTEROL FO R [...] mL/min Normal Cho/HDL Ratio 4.3 CALC [facility] CLASSIFICATION CHOLESTEROL FO R ADULTS [...] mL/min Normal LDL_C 107 Calc 75-129 [facility] (On license of [facility] CLASSIFICATION CHOLESTEROL FO R ADULTS [...] >32 mL/min Normal ID Date Data Source [id number] 05/14/2019 02:40:00 PM EST [facility] ([facility] [place] [place]) Name Value Range Interpretation Code Description Data Pennie rce(s) Supporting Document(s) Magnesium [Mass/volume] in Serum or Plasma 2.1 mg/dL 1.6-2.3 [facility] ([facility]) Laboratory test finding (navigational concept) Laboratory test result [facility] ([facility]) ID Date Data Source [id number] 05/14/2019 02:40:00 PM EST [facility] ([facility] [place] [place]) Name Value Range Interpretation Code Description Data Pennie rce(s) Supporting Document(s) Glucose 107 mg/dL 65-99 [facility] (Cardiology [facility]) Urea nitrogen [Mass/volume] in Serum or Plasma 29 mg/dL 8-27 [facility] ([facility]) eGFR If NonAfricn Am 37 mL/min/1.73 MEDE NT ([facility]) eGFR If Africn Am 43 mL/min/1.73 [facility] ([facility]) Creatinine 1.67 mg/dL 0.76-1.27 [facility] ([facility]) Urea nitrogen/Creatinine [Mass Ratio] in Serum or Plasma 17 1 0-24 [facility] ([facility]) Sodium 146 mmol/L 134-144 [facility] ([facility]) Carbon dioxide, total [Moles/volume] in Serum or Plasma 28 mmol/L 20 -29 [facility] ([facility]) Potassium [Moles/volume] in Serum or Plasma 4.4 mmol/L 3.5-5.2 [facility] ([facility]) Chloride [Moles/volume] in Serum or Plasma 102 mmol/L 96-106 [facility] ([facility]) Calcium [Mass/volume] in Serum or Plasma 8.8 mg/dL 8.6-10.2 [facility] ([facility]) ID Date Data Source [id number] 05/15/2019 08:06:00 AM EST [facility] Name Value [...] mg/dL 8.6-10.2 [facility] ID Date Data Source [id number] 05/15/2019 08:06:00 AM EST [facility] Name Value Range Interpretation Code Description Data Pennie rce(s) Supporting Document(s) Magnesium 2.1 mg/dL 1.6-2.3 [facility] ID Date Data Source [id number] 05/05/2019 02:11:02 PM EST [facility] INFORMATIONPatient MRN Name Date of Age Gend*PT [id number] Marcy Lee 1935 83 years M ---PT Location Admission Date/Time Visit ID Attending Provider --- --- --- --- EPI ID CSN Admitting Provider [id number] ---[id number] [facility], [address] (First Floor)[place], [place] [address]Vk.: Fax: Matient: Marcy Lee : 1935Date: 05/05/19CARDIOLOGY OFFICE NOTEHISTORY [...] mg by mouth daily , Disp: ,Rfl: Boring-3 Fatty Acids (FISH OIL) 1200 MG CAPS, [...] 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 I would be happy to see him in the future should his A. fib recurSignature: Jose Leslie MD, [facility], RSCardiac Electrophysiology and Arrhythmia ServiceDate: May 05, 2019Time: 2:09 PMThis document or parts of this document, were dictated using [employer]ang[employer]. A reasonable attempt at proofreading has been made to minimize errors.Please call with any questions or corrections. Name Value Range Interpretation Code Description Data [facility] Supporting Document(s) ID Date Data Source [id number] 04/26/2019 02:13:00 PM EST [facility] ([facility] Name Value Range Interpretation Code Description Data [facility] Supporting Document(s) Leukocytes [#/volume] in Blood by [...] Auto mated count 85 fL 79-97 [facility] ([facility] Erythrocytes [#/volume] in Blood by Automated count 3.60 x10E6/u L 4.14-5.80 Below low normal [facility] ([facility] ) Erythrocyte distribution width [Ratio] by Automated count 18.1 % 11.6-15.4 Above high normal [facility] ([facility] ) Erythrocyte mean corpuscular hemoglobin concentration [Mass/volume] by Automated count 33.7 g/dL 31.5-35.7 [facility] ([facility] ssoci[facility]efany[facility] Erythrocyte mean corpuscular hemoglobin [Entitic mass] by Automated count 28.6 pg 26.6-33.0 [facility] ([facility] ci[facility]rig[facility] Neutrophils 82 % [facility] ([facility] ctice [facility] Platelets [#/volume] in Blood by Automated count 242 x10E3/uL 150-450 [facility] ([facility] Lymphs 4 % [facility] Monocytes/100 leukocytes in Blood [...] by Automated count Laboratory test result [facility] ([facility] Immature granulocytes/100 leukocytes in Blood by Autom ated count Laboratory test result [facility] ([facility] Basophils [#/volume] in Blood by Automated count 0.6 x10E3/uL 0.0-0.2 Above high normal [facility] ([facility] ) Nucleated erythrocytes/100 leukocytes [Ratio] in Blood by Automated count Laboratory test result [facility] ([facility] Morphology [Interpretation] in Blood Narrative Laboratory test result [facility] ([facility] Manual differential was performed. ID Date Data Source [id number] 04/26/2019 02:13:00 PM EST [facility] ([facility] Name Value Range Interpretation Code Description Data Pennie rce(s) Supporting Document(s) Glu 105 mg/dL 70-110 [facility] ([facility] CHRONIC KIDNEY DISEASE [...] 1.9 mg/dL 0.7-1.2 Above high normal [facility] ([facility] CHRONIC KIDNEY DISEASE STAGING [...] 27 mg/dL 8-23 Above high normal [facility] ([facility] CHRONIC KIDNEY DISEASE [...] mL/min Normal BUN/Creatinine Ratio 14.5 Calc [facility] ([facility] CHRONIC KIDNEY DISEASE [...] mL/min Normal Na 140 mmol/L 136-145 [facility] ([facility] juanita [facility] CHRONIC KIDNEY DISEASE STAGING [...] mL/min Normal CA 9.2 mg/dL 8.6-10.2 [facility] ([facility] CHRONIC KIDNEY DISEASE STAGING [...] Co2 29.4 mmol/L 22.0-29.0 Above high normal MEDZAFAR ([facility] CHRONIC KIDNEY [...] mL/min Normal Anion Gap 14 mmol/L [facility] (On license of [facility] CHRONIC KIDNEY DISEASE [...] mL/min Normal eGFR 36 # DAWNA ( [facility] CHRONIC KIDNEY DISEASE [...] mL/min Normal CL 101.1 mmol/L 98.0-107.0 DAWNA ([facility] CHRONIC KIDNEY DISEASE STAGING [...] and above >32 mL/min Normal eGFR Non-Afr. Botswanan 31 # DAWNA ([facility] CHRONIC KIDNEY DISEASE STAGING [...] >32 mL/min Normal ID Date Data Source [id number] 04/05/2019 03:56:00 PM EST DAWNA ([facility] Name Value Range Interpretation Code Description Data Pennie rce(s) Supporting Document(s) BUN 14 mg/dL 11-20 DAWNA ([facility]) CHRONIC KIDNEY DISEASE STAGING PER NKF: MALE [...] HCT IS 5% LESS SOURCE FOR DATA: Vaioni 1800 OPERATION MANUAL( AUTOMATED BLOOD COUNTS AND DIFF.) APPENDIX B-3 Glu 153 mg/dL 70-110 [facility] ([facility]iology [facility] CHRONIC KIDNEY DISEASE STAGING PER NKF: MALE [...] HCT IS 5% LESS SOURCE FOR DATA: Vaioni 1800 OPERATION MANUAL( AUTOMATED BLOOD COUNTS AND DIFF.) APPENDIX B-3 Urea nitrogen/Creatinine [Mass Ratio] in Serum or Plasma 7.8 CALC [facility] ([facility]) CHRONIC KIDNEY DISEASE STAGING PER NKF: MALE [...] HCT IS 5% LESS SOURCE FOR DATA: Amuso DYN 1800 OPERATION MANUAL( AUTOMATED BLOOD COUNTS AND DIFF.) APPENDIX B-3 Creat 1.8 mg/dL 0.7-1.2 [facility] ([facility] CHRONIC KIDNEY DISEASE STAGING PER NKF: MALE [...] 29.5 mmol/L 22.0-29.0 [facility] ([facility]) CHRONIC KIDNEY DISEASE STAGING PER NKF: MALE [...] 140 mmol/L 136-145 [facility] ([facility] CHRONIC KIDNEY DISEASE STAGING PER NKF: MALE [...] DIFF.) APPENDIX B-3 CA 8.8 mg/dL 8.6-10.2 [facility] ([facility] [place]) CHRONIC [...] Plasma 16 mmol/L [facility] ([facility]) CHRONIC KIDNEY DISEASE STAGING PER NKF: MALE [...] K 4.9 mmol/L 3.5-5.1 [facility] ([facility]) CHRONIC KIDNEY DISEASE STAGING PER NKF: MALE [...] mmol/L 98.0-107.0 [facility] ([facility]olog [facility] CHRONIC KIDNEY DISEASE STAGING PER NKF: MALE [...] HCT IS 5% LESS SOURCE FOR DATA: Vaioni 1800 OPERATION MANUAL( AUTOMATED BLOOD COUNTS AND DIFF.) APPENDIX B-3 eGFR 39 # [facility] ( [facility] CHRONIC KIDNEY DISEASE STAGING PER NKF: MALE [...] HCT IS 5% LESS SOURCE FOR DATA: Vaioni 1800 OPERATION MANUAL( AUTOMATED BLOOD COUNTS AND DIFF.) APPENDIX B-3 eGFR Non-Afr. Botswanan 34 # [facility] ([facility]) CHRONIC KIDNEY DISEASE STAGING PER NKF: MALE [...] HCT IS 5% LESS SOURCE FOR DATA: Vaioni 1800 OPERATION MANUAL( AUTOMATED BLOOD COUNTS AND DIFF.) APPENDIX B-3 RBC 3.50 10E6/uL 4.20-6.30 [facility] ([facility] CHRONIC KIDNEY DISEASE STAGING PER NKF: MALE [...] HCT IS 5% LESS SOURCE FOR DATA: Vaioni 1800 OPERATION MANUAL( AUTOMATED BLOOD COUNTS AND DIFF.) APPENDIX B-3 WBC 10.6 10E3/uL 4.1-10.9 [facility] CHRONIC KIDNEY DISEASE STAGING PER NKF: MALE [...] g/dL 12.0-18.0 [facility] ([facility]iology [facility]) CHRONIC [...] DIFF.) APPENDIX B-3 MCH 29.1 pg 26.0-32.0 [facility] ([facility] [place]) CHRONIC [...] DIFF.) APPENDIX B-3 MCV 90.0 fL 80.0-97.0 [facility] ([facility] CHRONIC KIDNEY DISEASE STAGING PER NKF: MALE [...] IS 5% LESS SOURCE FOR DATA: TEDDY Kanbox 1800 OPERATION MANUAL( AUTOMATED BLOOD COUNTS AND DIFF.) APPENDIX B-3 MCHC 32.4 g/dL 31.0-36.0 [facility] ([facility] CHRONIC KIDNEY DISEASE STAGING PER NKF: MALE [...] HCT IS 5% LESS SOURCE FOR DATA: Vaioni 1800 OPERATION MANUAL( AUTOMATED BLOOD COUNTS AND DIFF.) APPENDIX B-3 PLT 155 10E3/uL 140-440 [facility] ([facility] CHRONIC KIDNEY DISEASE STAGING PER NKF: MALE [...] HCT IS 5% LESS SOURCE FOR DATA: Vaioni 1800 OPERATION MANUAL( AUTOMATED BLOOD COUNTS AND DIFF.) APPENDIX B-3 RDW-CV 19.1 % 11.5-14.5 [facility] ([facility] CHRONIC KIDNEY DISEASE STAGING PER NKF: MALE [...] HCT IS 5% LESS SOURCE FOR DATA: Vaioni 1800 OPERATION MANUAL( AUTOMATED BLOOD COUNTS AND DIFF.) APPENDIX B-3 Lym% Laboratory test result 10.0-58.5 Abnormal (applies to non-numeric results) [facility] ([facility] CHRONIC KIDNEY DISEASE STAGING PER NKF: MALE [...] HCT IS 5% LESS SOURCE FOR DATA: Amuso DYN 1800 OPERATION MANUAL( AUTOMATED BLOOD COUNTS AND DIFF.) APPENDIX B-3 Neut% Laboratory test result 37.0-92.0 Abnormal (applies to non-numeric results) [facility] ([facility] CHRONIC KIDNEY DISEASE STAGING PER NKF: MALE [...] HCT IS 5% LESS SOURCE FOR DATA: Amuso DYN 1800 OPERATION MANUAL( AUTOMATED BLOOD COUNTS AND DIFF.) APPENDIX B-3 MXD% Laboratory test result 0.1-24.0 Abnormal (applies to non-numeric results) MEDZAFAR ([facility] CHRONIC KIDNEY DISEASE STAGING PER NKF: MALE [...] HCT IS 5% LESS SOURCE FOR DATA: Amuso DYN 1800 OPERATION MANUAL( AUTOMATED BLOOD COUNTS AND DIFF.) APPENDIX B-3 Lym# Laboratory test result 0.6-4.1 Abnormal (applies to non -numeric results) [facility] ([facility] CHRONIC KIDNEY DISEASE STAGING PER NKF: MALE [...] HCT IS 5% LESS SOURCE FOR DATA: Vaioni 1800 OPERATION MANUAL( AUTOMATED BLOOD COUNTS AND DIFF.) APPENDIX B-3 Neutrophils [#/volume] in Semen by Manual count Laboratory test result 2.0-7.8 Abnormal (applies to non-numeric results) [facility] ([facility]) CHRONIC KIDNEY DISEASE STAGING PER NKF: MALE [...] DIFF.) APPENDIX B-3 Comment Laboratory test result DAWNA ([facility]) CHRONIC KIDNEY DISEASE STAGING PER NKF: MALE [...] HCT IS 5% LESS SOURCE FOR DATA: Vaioni 1800 OPERATION MANUAL( AUTOMATED BLOOD COUNTS AND DIFF.) APPENDIX B-3 MXD# Laboratory test result 0.0-1.8 Abnormal (applies to non -numeric results) [facility] ([facility]) CHRONIC KIDNEY DISEASE STAGING PER NKF: MALE [...] HCT IS 5% LESS SOURCE FOR DATA: Vaioni 1800 OPERATION MANUAL( AUTOMATED BLOOD COUNTS AND DIFF.) APPENDIX B-3 Platelet mean volume [Entitic volume] in Blood by Tracie 10.5 f L 9.0-13.0 DAW[facility] ([facility] CHRONIC KIDNEY DISEASE STAGING PER NKF: MALE [...] HCT IS 5% LESS SOURCE FOR DATA: Vaioni 1800 OPERATION MANUAL( AUTOMATED BLOOD COUNTS AND DIFF.) APPENDIX B-3 ID Date Data Source [id number] 04/04/2019 09:23:00 AM EST [facility] ([facility]i [facility]) Name Value Range Interpretation Code Description Data Pennie rce(s) Supporting Document(s) Magnesium Level 1.9 1.8-2.4 [facility] ([facility]io [facility] ID Date Data Source [id number] 04/04/2019 09:23:00 AM EST [facility] ([facility]i [facility]) Name Value Range Interpretation Code Description Data Pennie rce(s) Supporting Document(s) Glucose 112 70-100 [facility] ([facility] Blood Urea Nitrogen 10 7-18 [facility] (Ca [facility]diology [facility]) Sodium 144 136-145 [facility] ([facility]) Creatinine 1.76 0.70-1.30 [facility] ([facility]) Potassium 4.0 3.5-5.1 [facility] ([facility]) Chloride 109 98-107 [facility] ([facility]) Calcium 7.9 8.8-10.2 [facility] ([facility]) Glomerular filtration rate/1.73 sq M.pre dicted [Volume Rate/Area] in Serum or Plasma by Creatinine-based formula (MDRD) 39.5 [facility] ([facility]) Carbon Dioxide 29 21-32 [facility] ([facility]iol [facility]gy [facility] ID Date Data Source [id number] 04/04/2019 09:23:00 AM EST [facility] ([facility]i [facility] Name Value Range Interpretation Code Description Data Pennie rce(s) Supporting Document(s) White Blood Count 6.2 4.0-10.0 [facility] ([facility]) Platelets 102 150-450 [facility] ([facility] Red Blood Count 3.07 4.30-6.10 [facility] ([facility] Hematocrit 28.2 [facility] ([facility] Hemoglobin 8.6 [facility] ([facility] ID Date Data Source [id number] 04/01/2019 09:45:00 AM EST [facility] ([facility] Name Value Range Interpretation Code Description Data Pennie rce(s) Supporting Document(s) Magnesium Level 1.6 1.8-2.4 [facility] ([facility] ID Date Data Source [id number] 04/01/2019 09:45:00 AM EST [facility] ([facility] Name Value Range Interpretation Code Description Data Pennie rce(s) Supporting Document(s) Glucose 90 83-110 [facility] ([facility] Blood Urea Nitrogen 11 7-18 [facility] ([facility] Creatinine 1.40 0.6-1.0 [facility] ([facility] Sodium 146 136-145 [facility] ([facility] [place] Potassium 3.7 3.5-5.1 [facility] Chloride 113 98-107 [facility] ([facility] Calcium 7.0 8.8-10.2 [facility] ([facility] [place] Carbon Dioxide 27 21-32 [facility] ([facility] Glomerular filtration rate/1.73 sq M.pre dicted [Volume Rate/Area] in Serum or Plasma by Creatinine-based formula (MDRD) 51.4 [facility] ([facility] ID Date Data Source [id number] 03/31/2019 09:44:00 AM EST [facility] ([facility] [place] [place]) Name Value Range Interpretation Code Description Data Pennie rce(s) Supporting Document(s) Troponin Laboratory test result [facility] ([facility]) Thyroid Stimulating Hormone 1.850 ME DENT ([facility]) Lipoprotein lipase [Enzymatic activity/volume] in Serum or Plasma 195 [facility] ([facility]) ID Date Data Source [id number] 03/31/2019 09:44:00 AM EST [facility] ([facility] [place] [place]) Name Value Range Interpretation Code Description Data Pennie rce(s) Supporting Document(s) Creatine kinase [Enzymatic activity/volume] in Serum or Plasma 16 [facility] ([facility]) CPK-MB Laboratory test result [facility] ([facility]) ID Date Data Source [id number] 03/31/2019 09:34:00 AM EST [facility] ([facility] [place] [place]) Name Value Range Interpretation Code Description Data Pennie rce(s) Supporting Document(s) Troponin Laboratory test result [facility] ([facility]) ID Date Data Source [id number] 03/31/2019 09:34:00 AM EST [facility] ([facility] [place] [place]) Name Value Range Interpretation Code Description Data Pennie rce(s) Supporting Document(s) Creatine kinase [Enzymatic activity/volume] in Serum or Plasma 15 [facility] ([facility]) CPK-MB Laboratory test result [facility] ([facility]) Procedure Social History Code Duration Value Status Description Data Source(s ) Smoking 12/13/2019 12:00:00 AM EDT Patient is a former smoker completed Patient is a former smoker [facility] ([facility]) Vital Signs ID Date Data Source [id number] Name Value Range Interpretation Code Description Data Source(s) Body surface area Derived from formula 1.80 m2 1.80 m2 [facility] ([facility]) Body weight 66.906 kg 66.906 kg [facility] ([facility]) [place] body weight 154 [lb_av] 154 [lb_av] MED[facility] T ([facility]) Body mass index (BMI) [Ratio] 22.4 kg/m2 22.4 k g/m2 [facility] ([facility]) Body weight 147.50 [lb_av] 147.50 [lb_av] MEDEN T ([facility], ) Body height 68 [in_i] 68 [in_i] [facility] ([facility]) 5'8" Diastolic blood pressure 70 mm[Hg] 70 mm[Hg] [facility] ([facility]) Systolic blood pressure 128 mm[Hg] 128 mm[Hg] M EDENT ([facility]) Oxygen saturation in Arterial blood by Pulse oximetry 94 % 94 % [facility] ([facility] Body mass index (BMI) [Ratio] 24.0 kg/m2 24.0 k g/m2 [facility] ([facility] [place] body weight 148 [lb_av] 148 [lb_av] MEDEN T ([facility] Body weight 153.00 [lb_av] 153.00 [lb_av] MEDEN T ([facility] Body height 67 [in_i] 67 [in_i] [facility] ([facility] 5'7" Respiratory rate 14 /min 14 /min [facility] ( [facility] Heart rate 70 /min 70 /min [facility] ([facility] Body temperature 98.4 [degF] 98.4 [degF] [facility] ([facility] Diastolic blood pressure 70 mm[Hg] 70 mm[Hg] [facility] ([facility] Systolic blood pressure 116 mm[Hg] 116 mm[Hg] M EDENT ([facility] [place] body weight 148 [lb_av] 148 [lb_av] MEDEN T ([facility], ) Body mass index (BMI) [Ratio] 22.7 kg/m2 22.7 k g/m2 [facility] ([facility]) Body weight 145.00 [lb_av] 145.00 [lb_av] [facility] T ([facility]) Body height 67 [in_i] 67 [in_i] [facility] ([facility]) 5'7" Respiratory rate 12 /min 12 /min [facility] ( [facility]) [place] body weight 148 [lb_av] 148 [lb_av] MED[facility] T ([facility], ) Body mass index (BMI) [Ratio] 21.3 kg/m2 21.3 k g/m2 [facility] ([facility], ) Body weight 136.00 [lb_av] 136.00 [lb_av] MEDEN T ([facility]) Body height 67 [in_i] 67 [in_i] [facility] ([facility], ) 5'7" Respiratory rate 12 /min 12 /min [facility] ( [facility], ) Oxygen saturation in Arterial blood by Pulse oximetry 94 % 94 % [facility] ([facility] Body mass index (BMI) [Ratio] 21.3 kg/m2 21.3 k g/m2 [facility] ([facility] [place] body weight 148 [lb_av] 148 [lb_av] [facility] T ([facility] Body weight 136.00 [lb_av] 136.00 [lb_av] [facility] T ([facility] Body height 67 [in_i] 67 [in_i] [facility] ([facility] 5'7" Respiratory rate [...] oximetry 94 % 94 % [facility] ([facility], ) Body mass index (BMI) [Ratio] 21.3 kg/m2 21.3 k g/m2 [facility] ([facility], ) Body weight 136.00 [lb_av] 136.00 [lb_av] MEDEN T ([facility], ) Body height 67 [in_i] 67 [in_i] [facility] ([facility], ) Respiratory rate 12 /min 12 /min [facility] ( [facility]) Body temperature 97.5 [degF] 97.5 [degF] [facility] ([facility]) Heart rate 70 /min 70 /min [facility] ([facility]) Diastolic blood pressure 64 mm[Hg] 64 mm[Hg] [facility] ([facility]) Systolic blood pressure 118 mm[Hg] 118 mm[Hg] EDENT ([facility]) Body mass index (BMI) [Ratio] 20.3 kg/m2 20.3 k g/m2 [facility] ([facility] Heart rate 70 /min 70 /min [facility] ([facility] Diastolic blood pressure 59 mm[Hg] 59 mm[Hg] [facility] ([facility] Systolic blood pressure 122 mm[Hg] 122 mm[Hg] [facility] ([facility] Body weight 126.00 [lb_av] 126.00 [lb_av] MEDEN T ([facility] Body height 66 [in_i] 66 [in_i] [facility] ([facility] 5'6" Body mass index (BMI) [Ratio] 21.3 kg/m2 21.3 k g/m2 [facility] ([facility]) Body height 67 [in_i] 67 [in_i] [facility] ([facility]) 5'7" Body weight 136.00 [lb_av] 136.00 [lb_av] MEDEN T ([facility]) Diastolic blood pressure 64 mm[Hg] 64 mm[Hg] [facility] ([facility]) sitting, regular cuff Systolic blood pressure 128 mm[Hg] 128 mm[Hg] ED[facility] ([facility]) sitting, regular cuff Respiratory rate 16 /min 16 /min [facility] ( [facility]) Heart rate 68 /min 68 /min [facility] ([facility] Regular Oxygen saturation in Arterial blood by [...] Heart rate 78 /min 78 /min [facility] ([facility] Body temperature 97.1 [degF] [...] Body height 67 [in_i] 67 [in_i] [facility] ([facility] 5'7" Respiratory rate [...] [Ratio] 20.2 kg/m2 20.2 k g/m2 [facility] ([facility] Body weight 129.00 [lb_av] 129.00 [lb_av] MEDEN T ([facility] Body height 67 [in_i] 67 [in_i] [facility] ([facility] 5'7" Respiratory rate 12 /min 12 /min [facility] ( [facility] Heart rate 68 /min 68 /min [facility] ([facility] Body temperature 99.2 [degF] 99.2 [degF] [facility] ([facility] Diastolic blood pressure 62 mm[Hg] 62 mm[Hg] [facility] ([facility] sitting Systolic blood pressure 126 mm[Hg] 126 mm[Hg] M EDENT ([facility] sitting Diastolic blood pressure 62 mm[Hg] 62 mm[Hg] [facility] ([facility] sitting, regular cuff Systolic blood pressure 130 mm[Hg] 130 mm[Hg] M EDENT ([facility] sitting, regular cuff Respiratory rate 16 /min 16 /min [facility] ( [facility] Body mass index (BMI) [Ratio] 21.0 kg/m2 21.0 k g/m2 [facility] ([facility] Body height 67 [in_i] 67 [in_i] [facility] ([facility] 5'7" Body weight 134.00 [lb_av] 134.00 [lb_av] MEDEN T ([facility] Diastolic blood pressure 64 mm[Hg] 64 mm[Hg] [facility] ([facility] sitting, regular cuff Systolic blood pressure 126 mm[Hg] 126 mm[Hg] M EDENT ([facility] sitting, regular cuff Respiratory rate 16 /min 16 /min [facility] ( [facility] Heart rate 72 /min 72 /min [facility] ([facility] Regular Body mass index (BMI) [Ratio] 22.1 kg/m2 22.1 k g/m2 [facility] ([facility] Body height 67 [in_i] 67 [in_i] [facility] 5'7" Body weight 141.00 [lb_av] 141.00 [lb_av] MEDEN T ([facility] Diastolic blood pressure 68 mm[Hg] 68 mm[Hg] [facility] ([facility] sitting, regular cuff Systolic blood pressure 110 mm[Hg] 110 mm[Hg] M EDENT ([facility] sitting, regular cuff Respiratory rate 18 /min 18 /min [facility] ( [facility] Heart rate 72 /min 72 /min [facility] ([facility] Regular Body mass index (BMI) [Ratio] 22.2 kg/m2 22.2 k g/m2 [facility] ([facility] Body height 67 [in_i] 67 [in_i] [facility] ([facility]) 5'7" Body weight 142.00 [lb_av] 142.00 [lb_av] MEDEN T ([facility] Diastolic blood pressure 56 mm[Hg] 56 mm[Hg] [facility] ([facility] Sitting, regular cuff Systolic blood pressure 108 mm[Hg] 108 mm[Hg] M EDENT ([facility]) Sitting, regular cuff Respiratory rate 16 /min 16 /min [facility] ( [facility] Heart rate 76 /min 76 /min [facility] ([facility]) Regular Body mass index (BMI) [Ratio] 22.1 kg/m2 22.1 k g/m2 [facility] ([facility] Body height 67 [in_i] 67 [in_i] [facility] ([facility]) 5'7" Body weight 141.00 [lb_av] 141.00 [lb_av] MEDEN T ([facility] Diastolic blood pressure 62 mm[Hg] 62 mm[Hg] [facility] ([facility]) Sitting, regular cuff Systolic blood pressure 108 mm[Hg] 108 mm[Hg] M EDENT ([facility]) Sitting, regular cuff Respiratory rate 16 /min 16 /min [facility] ( [facility] Heart rate 72 /min 72 /min [facility] ([facility]) Regular Body mass index (BMI) [Ratio] 21.9 kg/m2 21.9 k g/m2 DAW[facility] ([facility] Body height 67 [in_i] 67 [in_i] [facility] ([facility]) 5'7" Body weight 140.00 [lb_av] 140.00 [lb_av] MESFIN Roman ([facility])
[2020-05-21 12:56] LABS: HEMATOCRIT 29.8 % (42.0-52.0); HEMOGLOBIN 9.8 g/dl (13.5-17.5); MEAN CORPUSCULAR HEMOGLOBIN 29.1 pg (27.0-33.0); MEAN CORPUSCULAR HGB CONC 32.9 g/dl (32.0-36.5); MEAN CORPUSCULAR VOLUME 88.4 fl (80.0-96.0); PLATELET COUNT, AUTOMATED 151 10^3/uL (150-450); RED BLOOD COUNT 3.37 10^6/uL (4.30-6.10)
[2020-05-21 12:58] LABS: WHITE BLOOD COUNT 13.3 10^3/uL (4.0-10.0)
[2020-05-21 13:06] LABS: INR 1.55; PROTHROMBIN TIME 18.9 SECONDS (12.5-14.3)
[2020-05-21 13:22] LABS: ALBUMIN 2.5 GM/DL (3.2-5.2); ALT/SGPT 10 U/L (12-78); AMYLASE 51 U/L (25-115); BILIRUBIN,DIRECT 0.2 MG/DL (0.0-0.2); BILIRUBIN,TOTAL 0.7 MG/DL (0.2-1.0); BLOOD UREA NITROGEN 28 MG/DL (7-18); CALCIUM LEVEL 8.1 MG/DL (8.8-10.2); CARBON DIOXIDE LEVEL 43 MEQ/L (21-32); CHLORIDE LEVEL 96 MEQ/L (98-107); CK-MB VALUE MASS < 1.0 NG/ML (<3.6); CPK CREATINE PHOSPHOKINASE 26 U/L (39-308); CREATININE FOR GFR 1.32 MG/DL (0.70-1.30); GLOMERULAR FILTRATION RATE 54.9 (>35); GLUCOSE, FASTING 160 MG/DL (70-100); LIPASE 85 U/L (73-393); MB/CK RELATIVE INDEX 3.85 (< OR =4); POTASSIUM SERUM 3.7 MEQ/L (3.5-5.1); SODIUM LEVEL 141 MEQ/L (136-145); TOTAL PROTEIN 5.1 GM/DL (6.4-8.2); TROPONIN I < 0.02 NG/ML (< 0.10)
[2020-05-21 13:27] LABS: ATYPICAL LYMPH 3 % (0-5); BASOPHILS 3 % (0-1); EOSINOPHILS 1 % (0-3); LYMPHOCYTES 4 % (16-44); METAMYELOCYTES 2 % (0-0); MONOCYTES 6 % (0-5); NEUTROPHILS 77 % (28-66)
[2020-05-21 13:28] LABS: ANISOCYTOSIS 2+; OVALOCYTES 1+; PLATELET ESTIMATE NORMAL (NORMAL); POIKILOCYTOSIS 1+
--- NOTE | 2020-05-21 13:53 | REP ---
INDICATION: Abdominal Pain. COMPARISON: Q.d. 09/21/2019, CT 09/16/2019. TECHNIQUE: AP supine chest abdomen and cross-table lateral abdomen FINDINGS: AP chest: Dual lead pacer noted with leads in the right atrium and right ventricle in better unit over the left upper chest. Some blunting of the left CP angle is again seen as on a CT with subpleural fat an epicardial fat pad combining. Diaphragm is otherwise sharply defined. There is no definite infiltrate or layering effusion suggested by haziness in either lung field. Abdomen two view cross-table lateral view shows a few air-fluid levels and nondilated small bowel loops scattered throughout similar to these appearance on the supine abdomen gas scattered throughout the colon as well without dilatation. There is no evidence of perforation or free air. There is vascular calcifications of the aorta without aneurysm. There are degenerative changes in the spine and hips as well as SI joints. A right upper quadrant calcification is unchanged since the study of last August consistent with a renal of arterial calcification seen on CT. No sign of obstruction. IMPRESSION: 1. No obstruction mass or free air there are scattered small air-fluid levels and nondilated small bowel loops and scattered gas throughout the colon again without dilatation. This may reflect some gastroenteritis. No obstruction. 2. Vascular calcifications of the aorta and iliac vessels. Bones with degenerative changes as described. 3. PA chest with the dual lead pacer and no acute cardiopulmonary change. <Electronically signed by Kwasi Shipley > 05/21/20 [id number]
[2020-05-21 15:15] LABS: ERYTHROCYTE SEDIMENTATION RATE 53 mm/hr (0-20)
[2020-05-21] MEDS ORDERED: NS 500 ML IV ONE ×2 (15:15→18:30)
[2020-05-21] MEDS ORDERED: ISOVUE-370 76% 100ML VIAL As Ordered ONE (15:21)
--- NOTE | 2020-05-21 16:15 | REP ---
INDICATION: abdominal pain, n/v. COMPARISON: 09/16/2019, x-ray 05/21/2020 TECHNIQUE: Bolus of 100 mL Isovue 370 scanning through the abdomen pelvis with coronal and sagittal reconstructions. FINDINGS: CT abdomen: Some dependent atelectatic and fibrotic changes in both lower lung zones. Underlying COPD in some basilar fibrotic changes also seen. No dense consolidation or pleural effusion. Heart is mildly prominent with left ventricular enlargement. Dual lead pacer present with leads in the right atrium and right ventricle. Coronary artery calcifications are present. There is no hiatal hernia. The liver shows a 1.3 cm cyst abutting the capsule anteriorly in the right hepatic lobe near the dome of the diaphragm. There are few other tiny low-density lesions in the left lobe also most suggestive of small cysts. 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 No hepatomegaly. There is mild splenomegaly with a vertical diameter of the 13.7 cm for the spleen previously 12.7 cm. No biliary dilatation or ascites there is some layering debris or tiny gravel in the gallbladder. Pancreas grossly unremarkable. Adrenal glands are normal. Kidneys show small cyst upper pole posteriorly in the right at 16 mm and laterally in the interpolar region, sub cm unchanged. Few tiny cysts are seen in the left kidney as well the aorta is atherosclerotic calcifications without aneurysm or dissection no periaortic, retroperitoneal or mesenteric pathologic sized lymphadenopathy. Small accessory splenule noted. Small bowel loops are without dilatation or wall thickening see note diverticulitis or colitis in the abdominal portion of the colon. There is some diverticulosis distal left colon. Appendix is seen, retrocecal and unremarkable. There is no evidence for perforation or free air in the abdomen and pelvis. Bone windows show degenerative changes lower thoracic and lumbar spines with small osteophytes but no compression deformities, spondylolysis or spondylolisthesis. Visualized ribs grossly intact. CT pelvis: The sacrum, SI joints, pelvis and hips are without fracture or destructive lesion. There are degenerative changes of both hips and SI joints. There is no renal, ureteral or bladder calculus. Calcifications are noted in the prostate. No ventral or inguinal hernia. There is diverticulosis of the distal left colon and proximal sigmoid without diverticulitis or colitis. No pelvic or inguinal adenopathy no evidence of inguinal hernia. Vascular calcifications iliac and femoral vessels. IMPRESSION: 1. Diverticulosis distal left colon sigmoid. No evidence of the colitis, diverticulitis, stricture or mass. Small bowel loops grossly unremarkable. No ascites, perforation or free air in the abdomen and pelvis. 2. Vascular calcifications aorta and branches without aneurysm or dissection. 3. Simple cysts in the liver, kidneys and no renal/ureteral/bladder calculus. No hydronephrosis. 4. No hiatal hernia. Stomach intact gallbladder moderately filled with layering hyperdense debris or gravel in its dependent portion. 5. Adrenal glands normal. Mild splenomegaly with a tiny splenic hemangioma anteriorly degenerative changes spine pelvis and hips without destructive lesion. <Electronically signed by Kwasi Shipley > 05/21/20 [id number]
[2020-05-21] MEDS ORDERED: oxyCODONE 5MG TAB PO PRN ×2 (17:30→19:00)
[2020-05-21] MEDS ORDERED: NALOXONE INJ 0.4MG/1ML VIAL (J2310 PER 1MG) IV PRN (17:30)
[2020-05-21] MEDS ORDERED: ATOR40TA75 PO (17:42)
[2020-05-21] MEDS ORDERED: ASPI81TA26 PO (17:42)
[2020-05-21] MEDS: ACETAMINOPHEN 500 MG TAB PO SCH ×2 (17:51→22:23)
[2020-05-21] MEDS ORDERED: oxyCODONE 5MG TAB PO ONE (18:00)
--- OUTSIDE RECORDS SUMMARY | 2020-05-21 18:09 | CCD ---
Author Author [facility] Organization [facility] Address Unknown Phone Unavailable Care Team Providers Care Stick Roller Name Role Phone Ramirez Garcia FOUNDATION ENGINEER Unavailable Unavailable DietscheRamirez FOUNDATION ENGINEER Unavailable Unavailable Dietsche M Vanessa FOUNDATION ENGINEER Unavailable Unavailable Dietsche M Vanessa FOUNDATION ENGINEER Unavailable Unavailable Dietsche M Vanessa FOUNDATION ENGINEER Unavailable Unavailable Dietsche M Vanessa FOUNDATION ENGINEER Unavailable Unavailable Dietsche M Vanessa FOUNDATION ENGINEER Unavailable Unavailable Dietsche M Vanessa FOUNDATION ENGINEER Unavailable Unavailable Dietsche M Vanessa FOUNDATION ENGINEER Unavailable Unavailable Dietsche, M Vanessa FOUNDATION ENGINEER Unavailable Unavailable Dietsche, M Vanessa FOUNDATION ENGINEER Unavailable Unavailable Dietsche, M Vanessa FOUNDATION ENGINEER Unavailable Unavailable Kathy Dunlap Unavailable Unavailable Kathy [...] is protected by Article 27-F of the [facility] Public Health law. If you continue you may have access to information: Regarding HIV / AIDS; Provided by facilities licensed or operated by the [facility] Office of Mental Health; or Provided by the [facility] Office for People With Developmental Disabilities. If such information is present, then the following [facility] mandated warning applies: This information has [...] law may result in a fine or correction sentence or both. A general authorization for the release of medical or other information is NOT sufficient authorization for further disc losure. Family History Family Member Name Family Member Gender Family Member Status Date o f Status Description Data Source(s) Unknown Unknown Problem [facility] ([facility]) Encounters Encounter Providers Location Date Indications Data Source(s ) Outpatient Attender: JAY SALGADO [facility] Office 04/01 09:45:00 AM EST [facility] ([facility] Outpatient Attender: GAIL LUNA MD [place] [facility] 01:30:00 PM EST [facility] ([facility] Office Visit Attender: Thom Lynch MD [facility] office - [facility] 04/20/2020 01:15:00 PM EST [facility] ([facility] Outpatient Attender: LISA MORE MDConsultant: STAFF NON 04/13/2020 07:26:00 AM EST - 04/13/2020 07:36:00 AM EST [facility] Outpatient Attender: LISA MORE MDConsultant: STAFF NON 04/10/2020 03:31:00 PM EST - 04/10/2020 03:41:00 PM EST [facility] Outpatient Attender: LISA MORE MDConsultant: STAFF NON 04/06/2020 02:43:00 PM EST - 04/06/2020 02:53:00 PM EST [facility] Outpatient Attender: LISA MORE MDConsultant: STAFF NON 04/03/2020 07:22:00 PM EST - 04/03/2020 07:32:00 PM EST [facility] Outpatient Attender: LISA MORE MDConsultant: STAFF NON 03/30/2020 03:52:00 PM EST - 03/30/2020 04:02:00 PM EST [facility] Outpatient Attender: LISA MORE MDConsultant: STAFF NON 03/27/2020 01:59:00 PM EST - 03/27/2020 02:09:00 PM EST [facility] Outpatient Attender: LISA MORE MDConsultant: STAFF NON 03/23/2020 04:49:00 PM EST - 03/23/2020 04:59:00 PM EST [facility] Outpatient Attender: LISA MORE MDConsultant: STAFF NON 03/16/2020 07:01:00 AM EST - 03/16/2020 07:11:00 AM EST [facility] Outpatient Attender: LISA MORE MDConsultant: STAFF NON 02/22/2020 07:32:00 AM EST - 02/22/2020 07:42:00 AM EST [facility] Outpatient Attender: LISA MORE MDConsultant: STAFF NON 02/17/2020 07:03:00 AM EST - 02/17/2020 07:13:00 AM EST [facility] Outpatient Attender: LISA MORE MDConsultant: STAFF NON 01/22/2020 07:15:00 AM EDT - 01/22/2020 07:25:00 AM EDT [facility] Outpatient Attender: Thom Lynch MD Main office [facility] 01/11/2020 10:00:00 AM EDT MED[facility] ([facility] ) Outpatient Attender: GAIL LUNA MD [place] [facility] 03:00:00 PM EDT [facility] ([facility] Outpatient Attender: JAY SALGADO [facility] Office 11/30 01:45:00 PM EDT [facility] ([facility] Outpatient Attender: Nancy Dunlap [facility] Office 12/13/2019 11:15:00 AM EDT [facility] ([facility]) Outpatient Attender: GAIL LUNA MD [place] [facility] 02:45:00 PM EDT [facility] ([facility] Outpatient Attender: GAIL LUNA MD [place] [facility] 03:20:00 PM EDT [facility] ([facility] Outpatient Attender: GAIL LUNA MD [place] [facility] 02:30:00 PM EDT [facility] ([facility] Inpatient Attender: Phoebe Sosa MDAttender: JORGE FERNANDEZ PAAdmitter: Phoebe Sosa MD EMERGENCY ROOM- 10/26/2019 04:04:00 PM EDT - 10/27/2019 02:20:00 PM T [facility] Patient discharged. Outpatient Attender: GAIL Wong Office 02:30:00 PM EDT [facility] ([facility] Outpatient Referrer: Vanessa Garcia NP 09/27/2019 05:21:00 AM EDT [facility] Outpatient Attender: GAIL Wong Office 03:20:00 PM EDT [facility] ([facility] Outpatient Attender: Nancy SANCHEZ Main Office 09/09/2019 07:45:00 AM EDT [facility] ([facility]) Outpatient Attender: GAIL Wong Office 05/2019 [...] 09:30:00 AM EDT [facility] ([facility]) Outpatient Attender: GAIL Wong Office 12:00:00 PM EST [facility] Outpatient Attender: Nancy SANCHEZ Main Office 05/14/2019 11:45:00 AM EST [facility] ([facility]) Outpatient Attender: Jose Lewis MD [facility] 05/05/2019 01:32:4 8 PM EST [facility] Outpatient Attender: GAIL Wong Office 12:45:00 PM EST [facility] ([facility] Outpatient Referrer: Vanessa Garcia NP 04/15/2019 09:27:00 PM EST [facility] Outpatient Attender: Nancy SANCHEZ Main Office 04/13/2019 06:45:00 AM EST [facility] ([facility]) Outpatient Attender: Nancy SANCHEZ Main Office 04/08/2019 07:00:00 AM EST [facility] ([facility]) Outpatient Referrer: Vanessa Garcia NP [...] AM EST ORAL active [facility] ([facility]) 12.5 mg 04/28/2020 12:00:00 AM EST capsule 90 TAKE ONE CAPSULE BY MOUTH EVERY DAY TAKE ONE CAPSULE BY MOUTH EVERY DAY SOLD: 04/28/2020 [facility] Hydrochlorothiazide 12.5 MG Oral Capsule Hydrochlorothiazide 04/27/2020 12:00:00 AM EST ORAL active [facility] ([facility] 120 mg 04/16/2020 12:00:00 [...] HYPERPLASIA *WEAR GLOVES WHEN HANDLING/CRUSHING* SOLD: 04/14/2020 [facility] Paroxetine Hydrochloride 10 MG Oral Tablet PAROXETINE [...] ORAL active M EDENT ([facility]) ferrous gluconate 324 MG Oral Tablet Ferrous Gluconate 12:00:00 AM EDT ORAL active [facility] ([facility]) Docusate Sodium 100 MG Oral Capsule Stool Softener 12/12/2019 12:00 :00 AM EDT ORAL active [facility] ([facility]) Paroxetine HCL Paroxetine HCL 12/12/2019 12:00:00 AM EDT ORAL active [facility] ([facility]) Cholecalciferol 5000 UNT Oral Capsule Vitamin D3 12/12/2019 12:00:00 AM EDT ORAL active [facility] ([facility]) Tamsulosin hydrochloride 0.4 MG Oral Capsule Tamsulosin HCL 12/12/2019 12:00:00 AM EDT ORAL active [facility] ([facility]) Tamsulosin hydrochloride 0.4 MG Oral Capsule Tamsulosin HCL 12/09/2019 12:00:00 AM EDT active [facility] ([facility] Tamsulosin hydrochloride 0.4 MG Oral Capsule Tamsulosin HCL 12/09/2019 12:00:00 AM EDT active MED[facility] ([facility] Docusate Sodium 100 [...] 09/20/2019 12:00:00 AM EDT ORAL active MED[facility] ([facility] Ondansetron 4 MG Oral Tablet [Zofran] Zofran 09/20/2019 12:00:00 AM EDT ORAL active [facility] ([facility]) Paroxetine 20 MG Oral Tablet [Paxil] Paxil 09/20/2019 12:00:00 AM EDT ORAL completed [facility] ([facility] Promethazine Hydrochloride 25 [...] EDT ORAL active [facility] ([facility]) Atenolol 25 MG Oral Tablet Atenolol 09/08/2019 12:00:00 AM EDT active [facility] ([facility]) Oxygen - Home 09/08/2019 12:00:00 AM EDT acti ve MEDENT ([facility]) Ketoconazole 20 MG/ML Topical Cream Ketoconazole 09/08/2019 12:00:00 AM EDT active [facility] ([facility]) Diltiazem Hydrochloride 120 MG Oral Tablet Diltiazem HCL 09/08/2019 12:00:00 AM EDT ORAL active [facility] ([facility]) Magnesium Chloride 535 MG Delayed Release Oral Tablet [Mag 6 4] Mag64 09/08/2019 12:00:00 AM EDT ORAL completed [facility] ([facility]) 50 mg 09/01/2019 12:00:00 AM EDT tablet 120 TAKE ONE TABLET BY MOUTH EVERY 6 HOURS NEEDED FOR PAIN MAXIMUM DAILY DOSE = 4 TABLETS TAKE ONE TABLET BY MOUTH EVERY 6 HOURS NEEDED FOR PAIN MAXIMUM DAILY DOSE = 4 TABLETS SOLD: 09/03/2019 [facility] tramadol hydrochloride 50 MG Oral Tablet Tramadol HCL 08/31/2019 12:00:00 AM EDT ORAL active MED[facility] ([facility] tramadol hydrochloride 50 MG Oral Tablet Tramadol HCL 08/31/2019 12:00:00 AM EDT ORAL active [facility] ([facility]) 0.25 mg 08/30/2019 12:00:00 [...] BY MOUTH TWICE A DAY SOLD: 09/17/2019 [facility] Fenofibrate 160 MG Oral Tablet FENOFIBRATE [...] EST ORAL active [facility] ([facility]) Amiodarone hydrochloride 200 MG Oral Tablet Amiodarone HCL 04/07/2019 12:00:00 AM EST ORAL completed [facility] ([facility]) Ondansetron 4 MG Oral Tablet [Zofran] Zofran 04/07/2019 12:00:00 AM EST active [facility] ([facility]) Atenolol 25 MG Oral Tablet Atenolol 04/07/2019 12:00:00 AM EST ORAL completed [facility] ([facility]) 25 mg 04/04/2019 12:00:00 AM [...] type / Coverage type Policy ID Covered libertarian ID Covered libertarian's relationship to sierra Policy Sierra Plan Information WELLCARE [id number] SP [id number] WELLCARE -O/P [id number] 18 [id number] SELF PAY ONLY [id number] SP [id number] WELLCARE O [id number] S [id number] MEDICARE [id number] SP [id number] WELLCARE HEALTH PLANS [id number] S [id number] MEDICARE [id number] SP [id number] WELLCARE [id number] SP [id number] WELLCARE MEDICARE [id number] [place] [id number] Today's Options Ppo Commercial [id number] Self [id number] Today's Options PFFS Commercial [id number] Self [id number] Medicare (Part B) Medicare Primary [id number] Self [id number] Wellcare MCR Advantage Commercial [id number] Self [id number] Today's Options PFFS Commercial [id number] Self [id number] Today's Options Ppo Commercial [id number] Self [id number] Wellcare MCR - To Ppo Commercial [id number] Self [id number] [facility] [employer] [facility] Commercial [id number] Self [id number] [employer] BC/BS Ppo Medigap Part B [id number] Self [id number] [employer] Medigap Part B [id number] Self [id number] [facility]-Commercial Plan Medigap Part B [id number] Self [id number] [facility] Medicare Commercial [id number] Self [id number] Today's Options Ppo Commercial [id number] Self [id number] Today's Options PFFS Commercial [id number] Self [id number] Medicare (Part B) Medicare Primary [id number] Self [id number] Wellcare MCR Advantage Commercial [id number] Self [id number] Today's Options PFFS Commercial [id number] Self [id number] Today's Options Ppo Commercial [id number] Self [id number] Wellcare MCR - To Ppo Commercial [id number] Self [id number] Today's Options Ppo Commercial [id number] Self [id number] Today's Options PFFS Commercial [id number] Self [id number] Medicare (Part B) Medicare Primary [id number] Self [id number] Wellcare MCR Advantage Commercial [id number] Self [id number] Today's Options PFFS Commercial [id number] Self [id number] Today's Options Ppo Commercial [id number] Self [id number] Wellcare MCR - To Ppo Commercial [id number] Self [id number] Today's Options Ppo Commercial [id number] Self [id number] Today's Options PFFS Commercial [id number] Self [id number] Medicare (Part B) Medicare Primary [id number] Self [id number] Wellcare MCR Advantage Commercial [id number] Self [id number] Today's Options PFFS Commercial [id number] Self [id number] Today's Options Ppo Commercial [id number] Self [id number] Wellcare MCR - To Ppo Commercial [id number] Self [id number] WELLCARE MEDICARE [id number] 24 [id number] WELLCARE MEDICARE [id number] [place] 05 [id number] Today's Options Ppo Commercial [id number] Self [id number] Today's Options PFFS Commercial [id number] Self [id number] Medicare (Part B) Medicare Primary [id number] Self [id number] Wellcare MCR Advantage Commercial [id number] Self [id number] Today's Options PFFS Commercial [id number] Self [id number] Today's Options Ppo Commercial [id number] Self [id number] Wellcare MCR - To Ppo Commercial [id number] Self [id number] Today's Options Ppo Commercial [id number] Self [id number] Today's Options PFFS Commercial [id number] Self [id number] Medicare (Part B) Medicare Primary [id number] Self [id number] Wellcare MCR Advantage Commercial [id number] Self [id number] Today's Options PFFS Commercial [id number] Self [id number] Today's Options Ppo Commercial [id number] Self [id number] Wellcare MCR - To Ppo Commercial [id number] Self [id number] Today's Options Ppo Commercial [id number] Self [id number] Today's Options PFFS Commercial [id number] Self [id number] Medicare (Part B) Medicare Primary [id number] Self [id number] Wellcare MCR Advantage Commercial [id number] Self [id number] Today's Options PFFS Commercial [id number] Self [id number] Today's Options Ppo Commercial [id number] Self [id number] Wellcare MCR - To Ppo Commercial [id number] Self [id number] Today's Options Ppo Commercial [id number] Self [id number] Today's Options PFFS Commercial [id number] Self [id number] Medicare (Part B) Medicare Primary [id number] Self [id number] Wellcare MCR Advantage Commercial [id number] Self [id number] Today's Options PFFS Commercial [id number] Self [id number] Today's Options Ppo Commercial [id number] Self [id number] Wellcare MCR - To Ppo Commercial [id number] Self [id number] Today's Options Ppo Commercial [id number] Self [id number] Today's Options PFFS Commercial [id number] Self [id number] Medicare (Part B) Medicare Primary [id number] Self [id number] Wellcare MCR Advantage Commercial [id number] Self [id number] Today's Options PFFS Commercial [id number] Self [id number] Today's Options Ppo Commercial [id number] Self [id number] Wellcare MCR - To Ppo Commercial [id number] Self [id number] Today's Options Ppo Commercial [id number] Self [id number] Today's Options PFFS Commercial [id number] Self [id number] Medicare (Part B) Medicare Primary [id number] Self [id number] Wellcare MCR Advantage Commercial [id number] Self [id number] Today's Options PFFS Commercial [id number] Self [id number] Today's Options Ppo Commercial [id number] Self [id number] Wellcare MCR - To Ppo Commercial [id number] Self [id number] Today's Options Ppo Commercial [id number] Self [id number] Today's Options PFFS Commercial [id number] Self [id number] Medicare (Part B) Medicare Primary [id number] Self [id number] Wellcare MCR Advantage Commercial [id number] Self [id number] Today's Options PFFS Commercial [id number] Self [id number] Today's Options Ppo Commercial [id number] Self [id number] Wellcare MCR - To Ppo Commercial [id number] Self [id number] WELLCARE [id number] SP [id number] TODAYS OPTIONS [id number] SP [id number] TODAYS OPTIONS/INDONESIAN O [id number] S [id number] Today's Options Ppo Commercial [id number] Self [id number] Today's Options PFFS Commercial [id number] Self [id number] Medicare (Part B) Medicare Primary [id number] Self [id number] Wellcare MCR Advantage Commercial [id number] Self [id number] Today's Options PFFS Commercial [id number] Self [id number] Today's Options Ppo Commercial [id number] Self [id number] Today's Options Ppo Commercial [id number] Self [id number] Today's Options PFFS Commercial [id number] Self [id number] Medicare (Part B) Medicare Primary [id number] Self [id number] Wellcare MCR Advantage Commercial [id number] Self [id number] Today's Options PFFS Commercial [id number] Self [id number] Today's Options Ppo Commercial [id number] Self [id number] Today's Options Ppo Commercial [id number] Self [id number] Today's Options PFFS Commercial [id number] Self [id number] Medicare (Part B) Medicare Primary [id number] Self [id number] Wellcare MCR Advantage Commercial [id number] Self [id number] Today's Options PFFS Commercial [id number] Self [id number] Today's Options Ppo Commercial [id number] Self [id number] Today's Options Ppo Commercial [id number] Self [id number] Today's Options PFFS Commercial [id number] Self [id number] Medicare (Part B) Medicare Primary [id number] Self [id number] Wellcare MCR Advantage Commercial [id number] Self [id number] Today's Options PFFS Commercial [id number] Self [id number] Today's Options Ppo Commercial [id number] Self [id number] Today's Options Ppo Commercial [id number] Self [id number] Today's Options PFFS Commercial [id number] Self [id number] Medicare (Part B) Medicare Primary [id number] Self [id number] Wellcare MCR Advantage Commercial [id number] Self [id number] Today's Options PFFS Commercial [id number] Self [id number] Today's Options Ppo Commercial [id number] Self [id number] Today's Options Ppo Commercial [id number] Self [id number] Today's Options PFFS Commercial [id number] Self [id number] Medicare (Part B) Medicare Primary [id number] Self [id number] Wellcare MCR Advantage Commercial [id number] Self [id number] Today's Options PFFS Commercial [id number] Self [id number] Today's Options Ppo Commercial [id number] Self [id number] Medicare (Part B) Medicare Primary Self [facility]-Commercial [...] Commercial Self Today's Option Medicare Commercial Self Citizen Of [place] Prog-Today's Opt Commercial Self United [employer] Commercial Self Medicare Medicare Primary Self United [employer] Medigap Part B Self Problems, Conditions, and Diagnoses Code Display Name Description Problem Type Effective Dates Data Source(s) [id number] Pressure ulcer of left foot stage 2 Pres sure ulcer of left foot stage 2 Problem 05/01/2020 12:00:00 AM EST [facility]WNA ([facility] [id number] 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 Problem 05/01/2020 12:00:00 AM EST [facility] ([facility] [id number] Chronic diastolic heart failure Chronic diastoli c heart failure Problem 09/09/2019 12:00:00 AM EDT [facility] ([facility] I4891 Unspecified atrial fibrillation Unspecified atrial fib rillation Diagnosis 04/13/2020 07:26:00 AM [facility] Z1152 Invalid ICD10 Description Invalid ICD10 Description Di agnosis 04/10/2020 03:31:00 PM [facility] Z1159 Encounter for screening for other viral diseases Encounter for screening for other viral diseases Diagnosis 04/03/2020 07:22:00 PM [facility] F0390 Unspecified dementia without behavioral disturbance Unspecified dementia without behavioral disturbance Diagnosis 03/16/2020 07:01:00 AM [facility] G9341 Metabolic encephalopathy Metabolic encephalopathy Diag nosis 03/16/2020 07:01:00 AM [facility] I10 Essential (primary) hypertension Essential (primary) h ypertension Diagnosis 02/22/2020 07:32:00 AM [facility] R569 Unspecified convulsions Unspecified convulsions Diagno sis 02/22/2020 07:32:00 AM [facility] J449 Chronic obstructive pulmonary disease, u nspecified Chronic obstructive pulmonary disease, unspecified Diagnosis 02/17/2020 07:03:00 AM [facility] E8342 Hypomagnesemia Hypomagnesemia Diagnosis 01/22/2020 07:15: 00 AM [facility] E039 Hypothyroidism, unspecified Hypothyroidism, unspecifie d Diagnosis 01/22/2020 07:15:00 AM [facility] E785 Hyperlipidemia, unspecified Hyperlipidemia, unspecifie d Diagnosis 01/22/2020 07:15:00 AM [facility] G9340 Encephalopathy, unspecified Encephalopathy, unspecifie d Diagnosis 01/22/2020 07:15:00 AM [facility] Y93.89 Activity, other specified ACTIVITY, OTHER SPECIFIED Di agnosis 10/26/2019 04:04:00 PM [facility] Y92.[address] in unspeci fied non-institutional (private) residence as the place of occurrence of the external cause UNSP PLACE IN [facility] NON-INSTITUT (PRIVATE) RESIDENC Diagnosis 10/26/2019 04:04:00 PM [facility] W18.39XA Other fall on same level, initial encoun ter OTHER FALL ON SAME LEVEL, INITIAL ENCOUNTER Diagnosis 10/26/2019 04:04:00 PM [facility] Z87.891 Personal history of nicotine dependence PERSONAL HISTORY OF NICOTINE DEPENDENCE Diagnosis 10/26/2019 04:04:00 PM [facility] Z79.899 Other senior care (current) drug therapy [facility] (CURRENT) DRUG THERAPY Diagnosis 10/26/2019 04:04:00 PM [facility] Z79.01 alf (current) use of anticoagulant s VAMPER (CURRENT) USE OF ANTICOAGULANTS Diagnosis 10/26/2019 04:04:00 PM [facility] Z79.52 intermodal dispatcher (current) use of systemic ster oids VAMPER (CURRENT) USE OF SYSTEMIC STEROIDS Diagnosis 10/26/2019 04:04:00 PM [facility] Z79.51 intermodal dispatcher (current) use of inhaled stero ids VAMPER (CURRENT) USE OF INHALED STEROIDS Diagnosis 10/26/2019 04:04:00 PM [facility] Z95.0 Presence of cardiac pacemaker PRESENCE OF CARDIAC PACE MAKER Diagnosis 10/26/2019 04:04:00 PM [facility] K31.84 Gastroparesis GASTROPARESIS Diagnosis 10/26/2019 04:04:00 PM [facility] N18.9 Chronic kidney disease, unspecified CHRONIC KIDN EY DISEASE, UNSPECIFIED Diagnosis 10/26/2019 04:04:00 PM [facility] I48.91 Unspecified atrial fibrillation UNSPECIFIED ATRI AL FIBRILLATION Diagnosis 10/26/2019 04:04:00 PM [facility] R55 Syncope and collapse SYNCOPE AND COLLAPSE Diagnosis 10/26/2019 04:04:00 PM [facility] D62 Acute posthemorrhagic anemia ACUTE POSTHEMORRHAGIC ANE HENRY Diagnosis 10/26/2019 04:04:00 PM [facility] S40.811A Abrasion of right upper arm, initial [...] DISEASE, UNSPECIFIED Diagnosis 10/26/2019 04:04:00 PM EDT [facility] 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, or unspecified chronic kidney disease HYPERTENSIVE CHRONIC KIDNEY DISEASE W STG 1-4/UNSP Diagnosis 10/26/2019 04:04:00 PM EDT [facility] S09.90XA Unspecified injury of head, initial enco unter UNSPECIFIED INJURY OF HEAD, INITIAL ENCOUNTER Diagnosis 10/26/2019 04:04:00 PM EDT [facility] I48.91 Unspecified atrial fibrillation Unspecified atri al fibrillation Diagnosis 05/05/2019 01:32:48 PM EST [facility] Surgeries/Procedures Procedure Description Date Indications Data Source(s) [...] ([facility] 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 EVAL IN PERSON 1/DUAL/MORALE OFFICER LEAD PM 2019 12:00:00 AM EDT [facility] ([facility]) ECG ROUTINE ECG W/LEAST 12 LDS W/I&R 09/09/2019 12:00: 00 AM EDT [facility] ([facility]) ECG ROUTINE ECG W/LEAST 12 LDS W/I&R 07/06/2019 12:00: 00 AM EDT [facility] ([facility] [facility]) ECG ROUTINE ECG W/LEAST 12 LDS W/I&R 04/08/2019 12:00: 00 AM EST [facility] ([facility]) Results ID Date Data Source [id number] 05/19/2020 07:44:00 PM EST [facility] Name Value Range Interpretation Code Description Data Pennie rce(s) Supporting Document(s) SARS-CoV-2 (COVID 19) NEGATIVE - SARS-CoV-2 (COVID19) [facility] This lab was ordered by [facility] a nd reported by [facility]. ID Date Data Source [id number] 05/19/2020 11:18:00 AM EST [facility] ([facility] Name Value Range Interpretation Code Description Data Pennie rce(s) Supporting Document(s) Laboratory test finding (navigational concept) Laboratory test r esult Normal (applies to non-numeric results) [facility] <content>QUANTITATIVE RESULT QU ALITATIVE INTERPRETATION</content>
<content> </content>
<content><5.0 IU/L NEGATIVE</content>
<content>5.0 - 25.0 IU/L INDETERMINATE</content>
<content>>25.0 IU/L POSITIVE</content>
<content></content> ID Date Data Source [id number] 05/19/2020 11:11:00 AM EST [facility] ([facility] [...] Lactate Rule: Y ID Date Data Source [id number] 05/19/2020 11:11:00 AM EST [facility] ([facility] Name Value Range Interpretation Code Description Data Pennie rce(s) Supporting Document(s) Neutrophils 71 % 28-66 Above high normal [facility] ([facility] Monocytes 10 % 0-5 Above high normal [facility] ([facility] Bands 6 % Normal (applies to non-numeric resul ts) [facility] ([facility] Lymphocytes 11 % 16-44 Below low normal [facility] ([facility] Anisocytosis Laboratory test result Normal (applies to non -numeric results) [facility] ([facility] Atypical Lymph 2 % 0-5 Normal (applies to non-numeric r esults) [facility] ([facility] Hypochromasia Laboratory test result Normal (applies t o non-numeric results) [facility] ([facility] Macrocytosis Laboratory test result Normal (applies to non -numeric results) [facility] ([facility] ID Date Data Source [id number] 05/19/2020 11:11:00 AM EST [facility] ([facility] Name Value Range Interpretation Code Description Data Pennie rce(s) Supporting Document(s) White Blood Count 12.1 10 4.0-10.0 Above high normal [facility] ([facility] A Pathologist review of this differentia l can help in the evaluation of a differential diagnosis. Please order a Pathologist Review (PERISM) if deemed necessary. Results are subject to change if a Pathologist Review is performed. Hemoglobin 11.1 g/dL 13.5-17.5 Below low normal [facility] ( [facility] Red Blood Count 3.89 10 4.30-6.10 Below low normal [facility] ([facility] Hematocrit 34.7 % 42.0-52.0 Below low normal [facility] ( [facility] Mean Corpuscular Hemoglobin 28.5 pg 27.0-33.0 Norm al (applies to non-numeric results) [facility] ([facility] ) Mean Corpuscular Volume 89.2 fl 80.0-96.0 Normal ( applies to non-numeric results) [facility] ([facility] ) Red Cell Distribution Width 18.7 % 11.5-14.5 Above high normal [facility] ([facility] Mean Corpuscular HGB Conc 32.0 g/dL 32.0-36.5 Normal (applies to non-numeric results) [facility] ([facility] ) Platelet Count, Automated 192 10 150-450 Normal (applies to non-numeric results) [facility] ([facility] ) Nucleated Red Blood Cell % 0.0 % 0-0 Normal (applies to n on-numeric results) [facility] ID Date Data Source [id number] 05/19/2020 11:11:00 AM EST [facility] ([facility] Name Value Range Interpretation Code Description Data Pennie rce(s) Supporting Document(s) Thyrotropin [Units/volume] in Serum or Plasma 1.340 uIU/ML 0. 358-3.740 Normal (applies to non-numeric results) [facility] ([facility] ID Date Data Source [id number] 05/19/2020 11:11:00 AM EST [facility] ([facility] Name Value Range Interpretation Code Description Data Pennie rce(s) Supporting Document(s) Ast/Sgot 14 U/L 7-37 Normal (applies to non-numeric resul ts) [facility] ([facility] Alkaline Phosphatase 92 U/L 45-117 Normal (applies to non-num romeo results) [facility] ([facility] Bilirubin,Total 0.4 mg/dL 0.2-1.0 Normal (applies to non-numeric results) [facility] ([facility] Alt/SGPT 15 U/L 12-78 Normal (applies to non-numeric resul ts) [facility] ([facility] Total Protein 5.5 GM/DL 6.4-8.2 Below low normal MEDEN T ([facility] Bilirubin,Direct 0.1 mg/dL 0.0-0.2 Normal (applies to non-numeric results) [facility] ([facility] Albumin/Globulin Ratio 1.0 Normal (applies to non-n umeric results) [facility] ([facility] Albumin 2.7 GM/DL 3.2-5.2 Below low normal [facility] ( [facility] ID Date Data Source [id number] 05/19/2020 11:11:00 AM EST [facility] ([facility] Name Value Range Interpretation Code Description Data Pennie rce(s) Supporting Document(s) Ammonia [Mass/volume] in Blood 22 uMOL/L N ormal (applies to non-numeric results) [facility] ([facility] ) ID Date Data Source [id number] 05/19/2020 11:11:00 AM EST [facility] ([facility] [...] ults) [facility] ([facility] Specific [place] Ur Auto RFX 1.005 1.002-1.035 Nor mal [...] N ormal (applies to non-numeric results) [facility] ([facility] ) Leukocyte Esterase Ur Auto RFX Laboratory test result Normal (applies to non- numeric results) [facility] ([facility] ) WBC, Urine Auto RFX 0 /HPF 0-3 Normal (applies to non-nume cristian results) [facility] ([facility] RBC, Urine Auto RFX 0 /HPF 0-3 Normal (applies to non-nume cristian results) [facility] ([facility] Blood, Urine Blood RFX Laboratory test result No rmal (applies to non-numeric results) [facility] ([facility] ) Squam Epithelial Cell Ur Aurfx 0 /HPF 0-6 N ormal (applies to non-numeric results) [facility] ([facility] ) Hyaline Cast, Urine Auto RFX 0 /LPF 0-1 Normal (appl ies to non-numeric results) [facility] ([facility] Bacteria, Urine Auto RFX Laboratory test result Normal (applies to non-numeric results) [facility] ([facility] ) ID Date Data Source [id number] 05/19/2020 11:11:00 AM EST [facility] ([facility] Name Value Range Interpretation Code Description Data Pennie rce(s) Supporting Document(s) Venous PH 7.422 units 7.330-7.430 Normal (applies to non-numeric res ults) [facility] ([facility] Venous Partial Pressure Co2 62.6 mmHg 38.0-50.0 Above high normal [facility] ([facility] Venous Total Co2 41.8 meq/L 24.0-28.0 Above high normal M [facility] ([facility] Venous Partial Pressure O2 237.6 mmHg 30.0-50.0 Above high normal [facility] ([facility] Venous Base Excess 13.1 Above high normal [facility] ([facility] Venous Hco3 39.9 meq/L 23.0-27.0 Above high normal [facility] ([facility] Venous O2 Saturation 99.1 % 60.0-80.0 Above high normal [facility] ([facility] Venous Standard Hco3 36.9 meq/L Normal (applies to non-num romeo results) [facility] ([facility] ID Date Data Source [id number] 05/19/2020 11:09:00 AM EST [facility] ([facility] Name Value Range Interpretation Code Description Data Pennie rce(s) Supporting Document(s) Laboratory test finding (navigational concept) 177 mg/dL 7 0-105 Above high normal [facility] ([facility] ) Laboratory test finding (navigational concept) 32.0 % 3 8.0-51.0 Below low normal [facility] ([facility] ) Laboratory test finding (navigational concept) 144 meq/L 1 36-145 Normal (applies to non-numeric results) [facility] ([facility] Laboratory test finding (navigational concept) 3.1 meq/L 3 .5-5.1 Below low normal [facility] ([facility] Laboratory test finding (navigational concept) 4.3 mg/dL 4 .5-5.3 Below low normal [facility] ([facility] ) Laboratory test finding (navigational concept) 41.0 MM/L 2 3.0-27.0 Above high normal [facility] ([facility] ) Laboratory test finding (navigational concept) 91 meq/L 98-109 Below low normal [facility] ([facility] Laboratory test finding (navigational concept) 20 mg/dL 8 -26 Normal (applies to non-numeric results) [facility] ([facility]) Laboratory test finding (navigational concept) 1.3 mg/dL 0 .6-1.3 Normal (applies to non-numeric results) [facility] ([facility] ID Date Data Source [id number] 05/05/2020 12:51:00 PM EST [facility] ([facility] Name Value Range Interpretation Code Description Data Pennie rce(s) Supporting Document(s) Leukocytes [#/volume] in Blood by Automated count 12.6 x10E3/uL 3.4-10.8 Above high normal [facility] ([facility] ) A courtesy copy of this report has been sent to the patient, Hemoglobin [Mass/volume] in Blood 11.5 g/dL 13.0-17.7 Below low nor mal [facility] ([facility] A courtesy copy of this report has been sent to the patient, Erythrocytes [#/volume] in Blood by Automated count 4.00 x10E6/u L 4.14-5.80 Below low normal [facility] ([facility] ) A courtesy copy of this report has been sent to the patient, Erythrocyte mean corpuscular volume [Entitic volume] by Auto mated count 90 fL 79-97 [facility] ([facility] A courtesy copy of this report has been sent to the patient, Hematocrit [Volume Fraction] of Blood by Automated count 35.9 % 37.5-51.0 Below low normal [facility] ([facility] ) A courtesy copy of this report has been sent to the patient, Erythrocyte mean corpuscular hemoglobin [Entitic mass] by Automated count 28.8 pg 26.6-33.0 [facility] ([facility] A courtesy copy of this report has been sent to the patient, Platelets [#/volume] in Blood by Automated count 179 x10E3/uL 150-450 [facility] ([facility] A courtesy copy of this report has been sent to the patient, Erythrocyte distribution width [Ratio] by Automated count 18.1 % 11.6-15.4 Above high normal [facility] ([facility] ) A courtesy copy of this report has been sent to the patient, Erythrocyte mean corpuscular hemoglobin concentration [Mass/volume] by Automated count 32.0 g/dL 31.5-35.7 [facility] A courtesy copy of this report has been sent to the patient, Lymphs 8 % [facility] ([facility] A courtesy copy of this report has been sent to the patient, Neutrophils 68 % [facility] ([facility] A courtesy copy of this report has been sent to the patient, Eosinophils/100 leukocytes in Blood by Automated count 0 % [facility] ([facility] A courtesy copy of this report has been sent to the patient, Basophils/100 leukocytes in Blood by Automated count 1 % [facility] ([facility] A courtesy copy of this report has been sent to the patient, Monocytes/100 leukocytes in Blood by Automated count 14 % [facility] ([facility] A courtesy copy of this report has been sent to the patient, Neutrophils [#/volume] in Blood by Automated count 8.6 x10E3/uL 1.4-7.0 Above high normal [facility] ([facility] ) A courtesy copy of this report has been sent to the patient, Immature cells [#/volume] in Blood Laboratory test result [facility] ([facility] A courtesy copy of this report has been sent to the patient, Monocytes [#/volume] in Blood 1.8 x10E3/uL 0.1-0.9 Above high norm al [facility] ([facility] A courtesy copy of this report has been sent to the patient, Lymphocytes [#/volume] in Blood 1.0 x10E3/uL 0.7-3.1 [facility] ([facility] A courtesy copy of this report has been sent to the patient, Eosinophils [#/volume] in Blood by Automated count 0.0 x10E3/uL 0.0-0 .4 [facility] ([facility] A courtesy copy of this report has been sent to the patient, Immature granulocytes/100 leukocytes in Blood by Autom ated count Laboratory test result [facility] ([facility] A courtesy copy of this report has been sent to the patient, Basophils [#/volume] in Blood by Automated count 0.1 x10E3/uL 0.0-0.2 [facility] ([facility] A courtesy copy of this report has been sent to the patient, Nucleated erythrocytes/100 leukocytes [Ratio] in Blood by Automated count Laboratory test result [facility] ([facility] A courtesy copy of this report has been sent to the patient, Immature granulocytes [#/volume] in Blood by Automated count Laboratory test result [facility] ([facility] A courtesy copy of this report has been sent to the patient, Metamyelocytes 4 % 0-0 Above high normal [facility] ([facility] A courtesy copy of this report has been sent to the patient, Bands Laboratory test result [facility] ([facility] A courtesy copy of this report has been sent to the patient, Morphology [Interpretation] in Blood Narrative Laboratory test result [facility] ([facility] A courtesy copy of this report has been sent to the patient, Myelocytes 5 % 0-0 Above high normal [facility] ([facility] A courtesy copy of this report has been sent to the patient, Promyelocytes Laboratory test result [facility] ([facility] A courtesy copy of this report has been sent to the patient, Laboratory test finding (navigational concept) Laboratory test result [facility] ([facility] A courtesy copy of this report has been sent to the patient, Laboratory test finding (navigational concept) Laboratory test result [facility] ([facility] A courtesy copy of this report has been sent to the patient, Laboratory test finding (navigational concept) Laboratory test result [facility] ([facility] A courtesy copy of this report has been sent to the patient, ID Date Data Source [id number] 04/25/2020 02:56:00 PM EST [facility] ([facility] Name Value Range Interpretation Code Description Data Pennie rce(s) Supporting Document(s) Thyrotropin [Units/volume] in Serum or Plasma 1.270 uIU/mL 0.450-4.50 0 [facility] ([facility] ID Date Data Source [id number] 04/25/2020 02:56:00 PM EST [facility] ([facility] Name Value Range Interpretation Code Description Data Pennie rce(s) Supporting Document(s) Glucose [Mass/volume] in Serum or Plasma 193 mg/dL 65-99 Above high normal [facility] ([facility] BUN 17 mg/dL 8-27 [facility] ([facility] eGFR If Africn Am 91 [...] Serum or Plasma 0.3 mg/dL 0.0-1.2 [facility] ([facility] Globulin [Mass/volume] in Serum by calculation 1.8 g/dL 1.5-4.5 [facility] ([facility] Alkaline phosphatase [Enzymatic activity/volume] in Serum or Plasma 76 IU/L 39-117 [facility] ([facility] Alanine aminotransferase [Enzymatic activity/volume] in Seru m or Plasma 14 IU/L 0-44 [facility] ([facility] Aspartate aminotransferase [Enzymatic activity/volume] in Serum or Plasma 15 IU/L 0-40 [facility] ([facility] ID Date Data Source [id number] 04/25/2020 02:56:00 PM EST [facility] ([facility] Name Value [...] by Automated count 32.8 g/dL 31.5-35.7 [facility] ([facility] Erythrocyte mean corpuscular hemoglobin [Entitic mass] by Automated count 29.3 pg 26.6-33.0 [facility] ([facility] Platelets [#/volume] in Blood by Automated count 182 x10E3/uL 150-450 [facility] ([facility] Erythrocyte distribution width [Ratio] by Automated count 18.2 % 11.6-15.4 Above high normal [facility] ([facility] ) Lymphs 6 % [facility] ([facility] Monocytes/100 leukocytes in Blood by Automated count 14 % [facility] ([facility] Neutrophils 72 % [facility] ([facility] Eosinophils/100 leukocytes in Blood by [...] by Automated count Laboratory test result [facility] ([facility] Basophils [#/volume] in Blood by Automated count 0.2 x10E3/uL 0.0-0.2 [facility] ([facility] Morphology [Interpretation] in Blood Narrative Laboratory test result [facility] ([facility] Manual differential was performed. Nucleated erythrocytes/100 leukocytes [Ratio] in Blood by Automated count Laboratory test result [facility] ([facility] Myelocytes 5 % 0-0 Above high normal [facility] ([facility] Metamyelocytes 1 % 0-0 Above high normal [facility] ([facility] Bands Laboratory test result [facility] ([facility] Laboratory test finding (navigational concept) Laboratory test result [facility] ([facility] Laboratory test finding (navigational concept) Laboratory test result [facility] ([facility] Promyelocytes Laboratory test result [facility] ([facility] Laboratory test finding (navigational concept) Laboratory test result [facility] ([facility] ID Date Data Source [id number] 04/25/2020 02:56:00 PM EST [facility] ([facility] Name Value Range Interpretation Code Description Data Pennie rce(s) Supporting Document(s) Magnesium [Mass/volume] in Serum or Plasma 1.7 mg/dL 1.6-2.3 [facility] ([facility] ID Date Data Source [id number] 04/13/2020 09:42:00 AM [facility] Name Value Range Interpretation Code Description Data Pennie rce(s) Supporting Document(s) COMPREHENSIVE METABOLIC PANEL [facility] COMPREHENSIVE METABOLIC PANEL Sodium [Moles/volume] in Serum or Plasma 142 mEq/L 134 - 153 [facility] Potassium [Moles/volume] in Serum or Plasma 4.1 mEq/L 3.6 - 5.0 [facility] Chloride [Moles/volume] in Serum or Plasma 104 mEq/L 98 - 107 [facility] Carbon dioxide, total [Moles/volume] in Serum or Plasma 35 MEQ/L 22 - 30 H [facility] Glucose [Mass/volume] in Serum or Plasma 129 MG/DL 65 - 110 H [facility] BUN 28 MG/DL 7 - 21 H [facility] Creatinine [Mass/volume] in Serum or Plasma 0.8 MG/DL 0.7 - 1.5 [facility] BUN/CREAT 35 8 - 27 H [facility] Protein [Mass/volume] in Serum or Plasma 4.7 G/DL 6.3 - 8.2 L [facility] Albumin [Mass/volume] in Serum or Plasma 3.2 G/DL 3.9 - 5.0 L [facility] Globulin [Mass/volume] in Serum by calculation 1.5 GM/DL 2.4 - 3.2 L [facility] A/G RATIO 2.1 0.8 - 2.0 H [facility] Calcium [Mass/volume] in Serum or Plasma 8.0 MG/DL 8.4 - 10.2 L [facility] Bilirubin.total [Mass/volume] in Serum or Plasma <0.7 MG/DL 0.2 - 1.3 [facility] Alkaline phosphatase [Enzymatic activity/volume] in Serum or Plasma 61 U/L 38 - 126 [facility] Aspartate aminotransferase [Enzymatic activity/volume] in Se rum or Plasma 9 U/L 5 - 40 [facility] Alanine aminotransferase [Enzymatic activity/volume] in Seru m or Plasma 7 U/L 7 - 56 [facility] Anion gap 3 in Serum or Plasma 3.0 mmol/L 8.0 - 16.0 L [facility] AGE 84 yrs [facility] al NON-AA GFR >60 mL/min [facility] ital AFR AMER GFR >60 mL/min [facility] Ho spital Male GFR In terprentation 20-49 [...] >32 mL/min Normal ID Date Data Source [id number] 04/13/2020 08:37:00 AM EST [facility] Name Value Range Interpretation Code Description Data Pennie rce(s) Supporting Document(s) CBC NO DIFF [facility] ital COMPLETE BLOOD COUNT Leukocytes [#/volume] in Blood by Automated count 9.5 10^3/uL 4.2 - 1 1.0 [facility] Erythrocytes [#/volume] in Blood by Automated count 3.79 10^6/uL 4. 50 - 6.30 L [facility] Hemoglobin [Mass/volume] in Blood 11.0 g/dL 14.0 - 16.0 L [facility] Hematocrit [Volume Fraction] of Blood by Automated count 33.8 % 4 1.0 - 51.0 L [facility] Erythrocyte mean corpuscular volume [Entitic volume] by Auto mated count 89.2 fL 80.0 - 94.0 [facility] Erythrocyte mean corpuscular hemoglobin [Entitic mass] by Automated count 29.0 pg 27.0 - 34.0 [facility] Erythrocyte mean corpuscular hemoglobin concentration [Mass/volume] by Automated count 32.5 g/dL 31.0 - 36.0 [facility] Erythrocyte distribution width [Ratio] by Automated count 19.4 % 11.5 - 14.8 H [facility] Platelets [#/volume] in Blood by Automated count 177 10^3/uL 150 - 45 0 [facility] Platelet mean volume [Entitic volume] in Blood by Automated count 11.0 fL 7.4 - 10.4 H [facility] ID Date Data Source [id number] 04/10/2020 11:45:00 AM [facility] Value Range Interpretation Code Description Data Pennie rce(s) Supporting Document(s) SARS coronavirus 2 RNA [facility] This lab was ordered by [facility] kathleen and reported by [facility]. ID Date Data Source [id number] 04/13/2020 06:29:00 AM EST [place] [facility] Name Value Range Interpretation Code Description Data Pennie rce(s) Supporting Document(s) SARS-CoV-2, EUGENE Not Detected Not Detected [facility] This nucleic acid amplification test was developed and its performancecharacteristics determined by [employer]. Nucleic acidamplification tests include PCR and TMA. [...] assay. ORDER COVID 19 2 DAY YES [facility] ID Date Data Source [id number] 04/06/2020 09:00:00 AM [facility] Name Value Range Interpretation Code Description Data [facility](s) Supporting Document(s) SARS coronavirus 2 RNA Not Detected [facility] This lab was ordered by [facility] Rj wang and reported by [employer]. ID Date Data Source [id number] 04/08/2020 06:00:00 PM EST [facility] Name Value Range Interpretation Code Description Data Pennie rce(s) Supporting Document(s) SARS-CoV-2, EUGENE Not Detected Not Detected [facility] Testing was performed using the pradeep(R) SARS-CoV-2 test.This nucleic acid amplification test was developed and its performancecharacteristics determined by [employer]. Nucleic acidamplification tests include PCR and TMA. [...] assay. ORDER COVID 19 2 DAY YES [facility] ID Date Data Source [id number] 04/03/2020 12:46:00 PM EST [facility] Name Value Range Interpretation Code Description Data Pennie rce(s) Supporting Document(s) SARS coronavirus 2 RNA Not Detected [facility] This lab was ordered by [facility] kathleen and reported by [employer]. ID Date Data Source [id number] 04/06/2020 08:59:00 AM EST [facility] Name Value Range Interpretation Code Description Data Pennie rce(s) Supporting Document(s) SARS-CoV-2, EUGENE Not Detected Not Detected [facility] This nucleic acid amplification test was developed and its performancecharacteristics determined by [employer]. Nucleic acidamplification tests include PCR and TMA. [...] assay. ORDER COVID 19 2 DAY NO [facility] ID Date Data Source [id number] 03/30/2020 10:05:00 AM EST [facility] Name Value Range Interpretation Code Description Data Pennie rce(s) Supporting Document(s) [facility] This lab was ordered by [facility] kathleen and reported by [employer]. ID Date Data Source [id number] 04/01/2020 04:43:00 PM EST [facility] Name Value Range Interpretation Code Description Data Pennie rce(s) Supporting Document(s) SARS-CoV-2, EUGENE Not Detected Not Detected [facility] This nucleic acid amplification test was developed and its performancecharacteristics determined by [employer]. Nucleic acidamplification tests include PCR and TMA. [...] in this assay. ID Date Data Source [id number] 03/27/2020 09:50:00 AM EST [facility] Name Value Range Interpretation Code Description Data Pennie rce(s) Supporting Document(s) SARS coronavirus 2 RNA [facility] and reported by [employer]. ID Date Data Source [id number] 03/30/2020 10:50:00 PM EST [facility] Name Value Range Interpretation Code Description Data [facility] rce(s) Supporting Document(s) SARS-CoV-2, EUGENE Not Detected Not Detected [facility] This nucleic acid amplification test was developed and its performancecharacteristics determined by [employer]. Nucleic acidamplification tests include PCR and TMA. [...] in this assay. ID Date Data Source [id number] 03/23/2020 01:00:00 PM [facility] Name Value Range Interpretation Code Description Data [facility] Supporting Document(s) SARS coronavirus 2 RNA [facility] This lab was ordered by [facility] kathleen and reported by [employer]. ID Date Data Source [id number] 03/25/2020 04:09:00 PM EST [facility] Name Value Range Interpretation Code Description Data [facility] rce(s) Supporting Document(s) SARS-CoV-2, EUGENE Not Detected Not Detected [facility] This nucleic acid amplification test was developed and its performancecharacteristics determined by [employer]. Nucleic acidamplification tests include PCR and TMA. [...] in this assay. ID Date Data Source [id number] 03/16/2020 08:23:00 AM EST [facility] Name Value Range Interpretation Code Description Data Pennie rce(s) Supporting Document(s) COMPREHENSIVE METABOLIC PANEL [facility] COMPREHENSIVE METABOLIC PANEL Sodium [Moles/volume] in Serum or Plasma 145 mEq/L 134 - 153 [facility] Potassium [Moles/volume] in Serum or Plasma 3.9 mEq/L 3.6 - 5.0 [facility] Chloride [Moles/volume] in Serum or Plasma 107 mEq/L 98 - 107 [facility] Carbon dioxide, total [Moles/volume] in Serum or Plasma 35 MEQ/L 22 - 30 H [facility] Glucose [Mass/volume] in Serum or Plasma 113 MG/DL 65 - 110 H [facility] BUN 19 MG/DL 7 - 21 [facility] Creatinine [Mass/volume] in Serum or Plasma 0.9 MG/DL 0.7 - 1.5 [facility] BUN/CREAT 21 8 - 27 [facility] Protein [Mass/volume] in Serum or Plasma 4.6 G/DL 6.3 - 8.2 L [facility] Albumin [Mass/volume] in Serum or Plasma 3.1 G/DL 3.9 - 5.0 L [facility] Globulin [Mass/volume] in Serum by calculation 1.5 GM/DL 2.4 - 3.2 L [facility] A/G RATIO 2.1 0.8 - 2.0 H [facility] Calcium [Mass/volume] in Serum or Plasma 8.3 MG/DL 8.4 - 10.2 L [facility] Bilirubin.total [Mass/volume] in Serum or Plasma <0.7 MG/DL 0.2 - 1.3 [facility] Alkaline phosphatase [Enzymatic activity/volume] in Serum or Plasma 58 U/L 38 - 126 [facility] Aspartate aminotransferase [Enzymatic activity/volume] in Serum or Plasma 11 U/L 5 - 40 [facility] Alanine aminotransferase [Enzymatic activity/volume] in Seru m or Plasma 11 U/L 7 - 56 [facility] Anion gap 3 in Serum or Plasma 3.0 mmol/L 8.0 - 16.0 L [facility] 84 [facility] >60 mL/min [facility] AFR AMER GFR >60 mL/min [facility] Ho spital Male GFR In terprentation 20-49 [...] >32 mL/min Normal ID Date Data Source [id number] 03/16/2020 07:58:00 AM EST [facility] Name Value Range Interpretation Code Description Data Pennie rce(s) Supporting Document(s) CBC NO DIFF [facility] COMPLETE BLOOD COUNT Leukocytes [#/volume] in Blood by Automated count 9.1 10^3/uL 4.2 - 1 1.0 [facility] Erythrocytes [#/volume] in Blood by Automated count 3.49 10^6/uL 4. 50 - 6.30 L [facility] Hemoglobin [Mass/volume] in Blood 10.1 g/dL 14.0 - 16.0 L [facility] Hematocrit [Volume Fraction] of Blood by Automated count 31.6 % 4 1.0 - 51.0 L [facility] Erythrocyte mean corpuscular volume [Entitic volume] by Auto mated count 90.5 fL 80.0 - 94.0 [facility] Erythrocyte mean corpuscular hemoglobin [Entitic mass] by Automated count 28.9 pg 27.0 - 34.0 [facility] Erythrocyte mean corpuscular hemoglobin concentration [Mass/volume] by Automated count 32.0 g/dL 31.0 - 36.0 [facility] Erythrocyte distribution width [Ratio] by Automated count 19.3 % 11.5 - 14.8 H [facility] Platelets [#/volume] in Blood by Automated count 166 10^3/uL 150 - 45 0 [facility] Platelet mean volume [Entitic volume] in Blood by Automated count 10.5 fL 7.4 - 10.4 H [facility] ID Date Data Source [id number] 02/26/2020 06:30:00 AM [facility] Name Value Range Interpretation Code Description Data Pennie rce(s) Supporting Document(s) Levetiracetam [Mass/volume] in Serum or Plasma 21.8 ug/mL 10.0-40.0 [facility] This test was developed and its performa nce characteristicsdetermined by [facility]. It has not been cleared or approvedby the Food and Drug Administration. ID Date Data Source [id number] 02/17/2020 10:37:00 AM EST [facility] ([facility]) Name Value Range Interpretation Code Description Data Pennie rce(s) Supporting Document(s) Calcium [Mass/volume] in Serum or Plasma 8.4 [facility] ([facility]) Alanine aminotransferase [Enzymatic activity/volume] in Serum or Pl asma 8 [facility] ([facility]) Albumin [Mass/volume] in Serum or Plasma 2.9 [facility] ([facility]) Carbon dioxide, total [Moles/volume] in Serum or Plasma 32 [facility] ([facility]) Chloride [Moles/volume] in Serum or Plasma 106 [facility] ([facility]) Potassium [Moles/volume] in Serum or Plasma 4.1 [facility] ([facility]) Alkaline phosphatase [Enzymatic activity/volume] in Serum or Plasma 7 1 [facility] ([facility]) Protein [Mass/volume] in Serum or Plasma 4.3 [facility] ([facility]) Urea nitrogen [Mass/volume] in Serum or Plasma 18 [facility] ([facility]) Sodium 143 [facility] ([facility]) Aspartate aminotransferase [Enzymatic activity/volume] in Serum or Plasma 12 [facility] ([facility]) Glucose 160 65-110 [facility] ([facility]) Creatinine For GFR 1.0 [facility] ID Date Data Source [id number] 02/17/2020 10:37:00 AM EST [facility] Name Value Range Interpretation Code Description Data Pennie rce(s) Supporting Document(s) Iron 61 42-135 [facility] ([facility]) Iron binding capacity [Mass/volume] in Serum or Plasma 164 [facility] ([facility]) Tibc % Saturation 37 [facility] ([facility]) ID Date Data Source [id number] 02/19/2020 09:10:00 PM [facility] Name Value Range Interpretation Code Description Data Pennie rce(s) Supporting Document(s) Levetiracetam [Mass/volume] in Serum or Plasma 29.4 ug/mL 10.0-40.0 [facility] This test was developed and its performa nce characteristicsdetermined by [facility]. It has not been cleared or approvedby the Food and Drug Administration. ID Date Data Source [id number] 02/17/2020 08:57:00 AM [facility] Name Value Range Interpretation Code Description Data Pennie rce(s) Supporting Document(s) Ferritin [Mass/volume] in Serum or Plasma 236.1 ng/mL 5.0 - 244 [facility] ID Date Data Source [id number] 02/17/2020 08:48:00 AM [facility] Name Value Range Interpretation Code Description Data Pennie rce(s) Supporting Document(s) CBC NO DIFF [facility] ital COMPLETE BLOOD COUNT Leukocytes [#/volume] in Blood by Automated count 9.0 10^3/uL 4.2 - 1 1.0 [facility] Erythrocytes [#/volume] in Blood by Automated count 3.09 10^6/uL 4. 50 - 6.30 L [facility] Hemoglobin [Mass/volume] in Blood 9.0 g/dL 14.0 - 16.0 L [facility] Hematocrit [Volume Fraction] of Blood by Automated count 27.6 % 4 1.0 - 51.0 L [facility] Erythrocyte mean corpuscular volume [Entitic volume] by Auto mated count 89.3 fL 80.0 - 94.0 [facility] Erythrocyte mean corpuscular hemoglobin [Entitic mass] by Automated count 29.1 pg 27.0 - 34.0 [facility] Erythrocyte mean corpuscular hemoglobin concentration [Mass/volume] by Automated count 32.6 g/dL 31.0 - 36.0 [facility] Erythrocyte distribution width [Ratio] by Automated count 18.9 % 11.5 - 14.8 H [facility] Platelets [#/volume] in Blood by Automated count 187 10^3/uL 150 - 45 0 [facility] Platelet mean volume [Entitic volume] in Blood by Automated count 11.1 fL 7.4 - 10.4 H [facility] ID Date Data Source [id number] 02/17/2020 08:44:00 AM EST [facility] Name Value Range Interpretation Code Description Data Pennie rce(s) Supporting Document(s) Iron [Mass/volume] in Serum or Plasma 61 UG/DL 42 - 135 [facility] Iron binding capacity.unsaturated [Mass/volume] in Serum or Plasma 103 UG/DL 112 - 347 L [facility] Iron binding capacity [Mass/volume] in Serum or Plasma 164 ug/dL 250 - 450 L [facility] Iron saturation [Mass Fraction] in Serum or Plasma 37 % [facility] ID Date Data Source [id number] 02/17/2020 08:44:00 AM EST [facility] Name Value Range Interpretation Code Description Data Pennie rce(s) Supporting Document(s) COMPREHENSIVE METABOLIC PANEL [facility] COMPREHENSIVE METABOLIC PANEL Sodium [Moles/volume] in Serum or Plasma 143 mEq/L 134 - 153 [facility] Potassium [Moles/volume] in Serum or Plasma 4.1 mEq/L 3.6 - 5.0 [facility] Chloride [Moles/volume] in Serum or Plasma 106 mEq/L 98 - 107 [facility] Carbon dioxide, total [Moles/volume] in Serum or Plasma 32 MEQ/L 22 - 30 H [facility] Glucose [Mass/volume] in Serum or Plasma 160 MG/DL 65 - 110 H [facility] BUN 18 MG/DL 7 - 21 [facility] Creatinine [Mass/volume] in Serum or Plasma 1.0 MG/DL 0.7 - 1.5 [facility] BUN/CREAT 18 8 - 27 [facility] Protein [Mass/volume] in Serum or Plasma 4.3 G/DL 6.3 - 8.2 L [facility] Albumin [Mass/volume] in Serum or Plasma 2.9 G/DL 3.9 - 5.0 L [facility] Globulin [Mass/volume] in Serum by calculation 1.4 GM/DL 2.4 - 3.2 L [facility] A/G RATIO 2.1 0.8 - 2.0 H [facility] Calcium [Mass/volume] in Serum or Plasma 8.4 MG/DL 8.4 - 10.2 [facility] Bilirubin.total [Mass/volume] in Serum or Plasma <0.7 MG/DL 0.2 - 1.3 [facility] Alkaline phosphatase [Enzymatic activity/volume] in Serum or Plasma 71 U/L 38 - 126 [facility] Aspartate aminotransferase [Enzymatic activity/volume] in Serum or Plasma 12 U/L 5 - 40 [facility] Alanine aminotransferase [Enzymatic activity/volume] in Seru m or Plasma 8 U/L 7 - 56 [facility] Anion gap 3 in Serum or Plasma 5.0 mmol/L 8.0 - 16.0 L [facility] AGE 84 yrs [facility] NON-AA GFR >60 mL/min [facility] AFR AMER GFR >60 mL/min [facility] sp[facility] Male GFR In terprentation 20-49 [...] >32 mL/min Normal ID Date Data Source [id number] 02/17/2020 08:42:00 AM EST [facility] Name Value Range Interpretation Code Description Data Pennie rce(s) Supporting Document(s) CVE PANEL [facility] LIPID PANEL Cholesterol [Mass/volume] in Serum or Plasma 132 MG/DL 131 - 200 [facility] Deprecated Triglyceride [Mass/volume] in Serum or Plasma 83 MG/DL 3 5 - 160 [facility] HDL 35 MG/DL 29 - 86 [facility] Cholesterol in LDL [Mass/volume] in Serum or Plasma by Direc t assay 83 mg/dL 65 - 175 [facility] Cholesterol.total/Cholesterol in HDL [Mass Ratio] in Serum o r Plasma 3.8 3.4 - 4.9 [facility] LDL/HDL 2.37 1.00 - 3.55 [facility] CVE RISK CHOL/HDL LDL/HDLMEN: 1/2 AVERAGE 3.43 1.00 AVERAGE 4.97 3.55 2X AVERAGE 9.55 6.25 3X AVERAGE 23.99 7.99WOMEN: 1/2 AVERAGE 3.27 1.47 AVERAGE 4.44 3.22 2X AVERAGE 7.05 5.03 3X AVERAGE 11.04 6.14 ID Date Data Source [id number] 01/22/2020 10:20:00 AM EDT [facility] ([facility] [employer] [facility]) Name Value Range Interpretation Code Description Data Pennie rce(s) Supporting Document(s) Magnesium [Mass/volume] in Serum or Plasma 1.6 [facility] ([facility]) ID Date Data Source [id number] 01/22/2020 10:20:00 AM EDT [facility] Name Value Range Interpretation Code Description Data Pennie rce(s) Supporting Document(s) Iron 48 42-135 [facility] Iron binding capacity [Mass/volume] in Serum or Plasma 192 [facility] ([facility]) Tibc % Saturation 25 [facility] ([facility]) ID Date Data Source [id number] 01/22/2020 10:20:00 AM EDT [facility] Name Value Range Interpretation Code Description Data Pennie rce(s) Supporting Document(s) Free T4 1.53 [facility] Thyroid Stimulating Hormone 2.54 [facility] ([facility]) ID Date Data Source [id number] 01/22/2020 10:20:00 AM EDT [facility] Name Value Range Interpretation Code Description Data Pennie rce(s) Supporting Document(s) Calcium [Mass/volume] in Serum or Plasma 8.9 [facility] ([facility]) Alanine aminotransferase [Enzymatic activity/volume] in Serum or Pl asma 8 [facility] ([facility]) Albumin [Mass/volume] in Serum or Plasma 3.3 [facility] ([facility]) Carbon dioxide, total [Moles/volume] in Serum or Plasma 32 [facility] ([facility]) Chloride [Moles/volume] in Serum or Plasma 105 [facility] ([facility]) Alkaline phosphatase [Enzymatic activity/volume] in Serum or Plasma 7 0 [facility] ([facility]) Protein [Mass/volume] in Serum or Plasma 5.2 [facility] ([facility]) Potassium [Moles/volume] in Serum or Plasma 4.0 [facility] ([facility]) Sodium 144 [facility] ([facility] Urea nitrogen [Mass/volume] in Serum or Plasma 19 [facility] ([facility]) Aspartate aminotransferase [Enzymatic activity/volume] in Serum or Plasma 12 [facility] ([facility]) Glucose 100 65-110 [facility] ([facility] Creatinine For GFR 1.0 [facility] ([facility]) ID Date Data Source [id number] 01/22/2020 08:27:00 AM EDT [facility] Name Value Range Interpretation Code Description Data Pennie rce(s) Supporting Document(s) Thyroxine (T4) free index in Serum or Plasma by calculation 1.53 NG/DL 0.93 - 1.70 [facility] ID Date Data Source [id number] 01/22/2020 08:27:00 AM EDT [facility] Value Range Interpretation Code Description Data Pennie rce(s) Supporting Document(s) Thyrotropin [Units/volume] in Serum or Plasma by Detec tion limit <= 0.05 mIU/L 2.54 uIU/mL 0.47 - 5.01 [facility] ID Date Data Source [id number] 01/22/2020 08:27:00 AM EDT [facility] Value Range Interpretation Code Description Data Pennie rce(s) Supporting Document(s) Ferritin [Mass/volume] in Serum or Plasma 460.0 ng/mL 5.0 - 244 H [facility] ID Date Data Source [id number] 01/22/2020 08:22:00 AM T [facility] Value Range Interpretation Code Description Data Pennie rce(s) Supporting Document(s) Magnesium [Mass/volume] in Serum or Plasma 1.6 MG/DL 1.7 - 2.2 L [facility] ID Date Data Source [id number] 01/22/2020 08:22:00 AM T [facility] Value Range Interpretation Code Description Data Pennie rce(s) Supporting Document(s) Iron [Mass/volume] in Serum or Plasma 48 UG/DL 42 - 135 [facility] Iron binding capacity.unsaturated [Mass/volume] in Serum or Plasma 144 UG/DL 112 - 347 [facility] Iron binding capacity [Mass/volume] in Serum or Plasma 192 ug/dL 250 - 450 L [facility] Iron saturation [Mass Fraction] in Serum or Plasma 25 % [facility] ID Date Data Source [id number] 01/22/2020 08:22:00 AM EDT [facility] Value Range Interpretation Code Description Data Pennie rce(s) Supporting Document(s) CVE PANEL [facility] LIP[facility] PAN[facility] Cholesterol [Mass/volume] in Serum or Plasma 154 MG/DL 131 - 200 [facility] Deprecated Triglyceride [Mass/volume] in Serum or Plasma 156 MG/DL 3 5 - 160 [facility] HDL 29 MG/DL 29 - 86 [facility] Cholesterol in LDL [Mass/volume] in Serum or Plasma by Direc t assay 99 mg/dL 65 - 175 [facility] Cholesterol.total/Cholesterol in HDL [Mass Ratio] in Serum o r Plasma 5.3 3.4 - 4.9 H [facility] LDL/HDL 3.41 1.00 - 3.55 [facility] CVE RISK CHOL/HDL LDL/HDLMEN: 1/2 AVERAGE 3.43 1.00 AVERAGE 4.97 3.55 2X AVERAGE 9.55 6.25 3X AVERAGE 23.99 7.99WOMEN: 1/2 AVERAGE 3.27 1.47 AVERAGE 4.44 3.22 2X AVERAGE 7.05 5.03 3X AVERAGE 11.04 6.14 ID Date Data Source [id number] 01/22/2020 08:22:00 AM EDT [facility] Name Value Range Interpretation Code Description Data Pennie rce(s) Supporting Document(s) COMPREHENSIVE METABOLIC PANEL [facility] COMPREHENSIVE METABOLIC PANEL Sodium [Moles/volume] in Serum or Plasma 144 mEq/L 134 - 153 [facility] Potassium [Moles/volume] in Serum or Plasma 4.0 mEq/L 3.6 - 5.0 [facility] Chloride [Moles/volume] in Serum or Plasma 105 mEq/L 98 - 107 [facility] Carbon dioxide, total [Moles/volume] in Serum or Plasma 32 MEQ/L 22 - 30 H [facility] Glucose [Mass/volume] in Serum or Plasma 100 MG/DL 65 - 110 [facility] BUN 19 MG/DL 7 - 21 [facility] Creatinine [Mass/volume] in Serum or Plasma 1.0 MG/DL 0.7 - 1.5 [facility] BUN/CREAT 19 8 - 27 [facility] Protein [Mass/volume] in Serum or Plasma 5.2 G/DL 6.3 - 8.2 L [facility] Albumin [Mass/volume] in Serum or Plasma 3.3 G/DL 3.9 - 5.0 L [facility] Globulin [Mass/volume] in Serum by calculation 1.9 GM/DL 2.4 - 3.2 L [facility] A/G RATIO 1.7 0.8 - 2.0 [facility] Calcium [Mass/volume] in Serum or Plasma 8.9 MG/DL 8.4 - 10.2 [facility] Bilirubin.total [Mass/volume] in Serum or Plasma <0.7 MG/DL 0.2 - 1.3 [facility] Alkaline phosphatase [Enzymatic activity/volume] in Serum or Plasma 70 U/L 38 - 126 [facility] Aspartate aminotransferase [Enzymatic activity/volume] in Serum or Plasma 12 U/L 5 - 40 [facility] Alanine aminotransferase [Enzymatic activity/volume] in Seru m or Plasma 8 U/L 7 - 56 [facility] Anion gap 3 in Serum or Plasma 7.0 mmol/L 8.0 - 16.0 L [facility] AGE 84 yrs [facility] NON-AA GFR >60 mL/min [facility] ital AFR AMER GFR >60 mL/min [facility] Ho spital Male GFR In terprentation 20-49 [...] >32 mL/min Normal ID Date Data Source [id number] 01/22/2020 07:56:00 AM EDT [facility] Name Value Range Interpretation Code Description Data Pennie rce(s) Supporting Document(s) CBC NO DIFF [facility] ital COMPLETE BLOOD COUNT Leukocytes [#/volume] in Blood by Automated count 12.1 10^3/uL 4.2 - 11.0 H [facility] Erythrocytes [#/volume] in Blood by Automated count 3.44 10^6/uL 4. 50 - 6.30 L [facility] Hemoglobin [Mass/volume] in Blood 10.0 g/dL 14.0 - 16.0 L [facility] Hematocrit [Volume Fraction] of Blood by Automated count 30.4 % 4 1.0 - 51.0 L [facility] Erythrocyte mean corpuscular volume [Entitic volume] by Auto mated count 88.4 fL 80.0 - 94.0 [facility] Erythrocyte mean corpuscular hemoglobin [Entitic mass] by Automated count 29.1 pg 27.0 - 34.0 [facility] Erythrocyte mean corpuscular hemoglobin concentration [Mass/volume] by Automated count 32.9 g/dL 31.0 - 36.0 [facility] Erythrocyte distribution width [Ratio] by Automated count 19.3 % 11.5 - 14.8 H [facility] Platelets [#/volume] in Blood by Automated count 216 10^3/uL 150 - 45 0 [facility] Platelet mean volume [Entitic volume] in Blood by Automated count 10.5 fL 7.4 - 10.4 H [facility] ID Date Data Source [id number] 01/17/2020 08:27:00 PM EDT [facility] ([facility] Name Value Range Interpretation Code Description Data Pennie rce(s) Supporting Document(s) Color, Urine RFX Laboratory test result Normal ( applies to non-numeric results) [facility] ([facility] ) Appearance, Urine RFX Laboratory test result Nor mal (applies to non-numeric results) [facility] ([facility] ) Specific [place] Ur Auto RFX 1.015 1.002-1.035 Nor mal (applies to non-numeric results) [facility] ([facility] ) Protein, Urine Auto RFX Laboratory test result N ormal (applies to non-numeric results) [facility] ([facility] ) PH,Urine RFX 6.0 units 5.0-9.0 Normal (applies to non-numeric res ults) [facility] ([facility] Glucose, Urine (Ua) Auto RFX Laboratory test result Normal (applies to non- numeric results) [facility] ([facility] ) Ketone, Urine Auto RFX Laboratory test result No rmal (applies to non-numeric results) [facility] ([facility] ) Urobilinogen, Urine Auto RFX 0.2 mg/dL 0.0-2.0 Nor mal (applies to non-numeric results) [facility] ([facility] ) Bilirubin, Urine Auto RFX Laboratory test result Normal (applies to non- numeric results) [facility] ([facility] ) Nitrite, Urine Auto RFX Laboratory test result N ormal (applies to non-numeric results) [facility] ([facility] ) Blood, Urine Blood RFX Laboratory test result No rmal (applies to non-numeric results) [facility] ([facility] ) Leukocyte Esterase Ur Auto RFX Laboratory test result Normal (applies to non- numeric results) [facility] ([facility] ) WBC, Urine Auto RFX 3 /HPF 0-3 Normal (applies to non-nume cristian results) [facility] ([facility] Squam Epithelial Cell Ur Aurfx 0 /HPF 0-6 N ormal (applies to non-numeric results) [facility] ([facility] ) Bacteria, Urine Auto RFX Laboratory test result Normal (applies to non-numeric results) [facility] ([facility] ) RBC, Urine Auto RFX 0 /HPF 0-3 Normal (applies to non-nume cristian results) [facility] ([facility] Hyaline Cast, Urine Auto RFX 0 /LPF 0-1 Normal (appl ies to non-numeric results) [facility] ([facility] ID Date Data Source [id number] 01/17/2020 06:14:00 PM EDT [facility] ([facility] Name Value Range Interpretation Code Description Data Pennie rce(s) Supporting Document(s) Lactate [Mass/volume] in Serum or Plasma 0.9 mmol/L 0.4-2.0 Normal (applies to non-numeric results) [facility] ([facility]) Y/N query for Sepsis Lactate Rule: Y ID Date Data Source [id number] 01/17/2020 06:14:00 PM EDT [facility] ([facility] Name Value Range Interpretation Code Description Data Pennie rce(s) Supporting Document(s) CK-MB Value Mass 1.5 ng/mL Normal (applies to non-numeric results) [facility] ([facility] CPK Creatine Phosphokinase 24 U/L 39-308 Below low normal [facility] ([facility] MB/CK Relative Index 6.25 Above high normal [facility] <content>DIAGNOSIS CRITERIA</content>
<content>MMB ng/ml Relative Index (RI)</content>
<content>NON-AMI < or = 5 N/A</content>
<content>CHANEY ZONE > 5 < or = 4</content>
<content>AMI > 5 > 4</content>
<content></content> Troponin I Laboratory test result Normal (applies to non-n umeric results) [facility] ([facility] <content>Troponin I Reference Interval f or Siemens [place] LOCI:</content>
<content></content>
<content>99th Percentile= 0.00-0.045 ng/ml</content>
<content></content>
<content>Risk Stratification:</content>
<content><= 0.10 ng/ml Decreased Risk for Adverse Clinical</content>
<content>Events.</content>
<content>0.10-1.50 ng/ml Increased Risk for Adverse Clinical</content>
<content>Events. Evaluation of additional</content>
<content>criterion and/or repeat testing in 2-6</content>
<content>hours is suggested to rule out myocardial</content>
<content>damage.</content>
<content>>= 1.50 ng/ml Indicative of Myocardial Injury.</content>
<content></content> ID Date Data Source [id number] 01/17/2020 06:14:00 PM EDT [facility] ([facility] [...] GM/DL 6.4-8.2 Below low normal [facility] T ([facility] Bilirubin,Direct 0.2 mg/dL 0.0-0.2 Normal (applies to non-numeric results) [facility] ([facility] Albumin 2.5 GM/DL 3.2-5.2 Below low normal [facility] ( [facility] Albumin/Globulin Ratio 0.9 Normal (applies to non-n umeric results) [facility] ([facility] ID Date Data Source [id number] 01/17/2020 06:14:00 PM EDT [facility] ([facility] [...] Little GFR Left</content>
<content>ESRD GFR <15 on ROLL SHEETING CUTTER</content>
<content></content> Potassium Serum 4.3 meq/L 3.5-5.1 Normal (applies to non-numeric results) [facility] ([facility] Sodium Level 142 meq/L 136-145 Normal (applies to non-numeric res ults) [facility] ([facility] Chloride Level 107 meq/L 98-107 Normal (applies to non-numeric r esults) [facility] ([facility] Calcium Level 8.7 mg/dL 8.8-10.2 Below low normal [facility] T ([facility] Anion Gap 4 meq/L 8-16 Below low normal [facility] ( [facility] Carbon Dioxide Level 31 meq/L 21-32 Normal (applies to non-num romeo results) [facility] ([facility] ID Date Data Source [id number] 01/17/2020 06:14:00 PM EDT [facility] ([facility] Name Value Range Interpretation Code Description Data Pennie rce(s) Supporting Document(s) Osmolality of Serum or Plasma 292 MOSM/KG 280-301 No rmal (applies to non-numeric results) [facility] ([facility] ) Thyrotropin [Units/volume] in Serum or Plasma 0.928 uIU/ML 0. 358-3.740 Normal (applies to non-numeric results) [facility] ([facility] ID Date Data Source [id number] 01/17/2020 06:14:00 PM EDT [facility] Name Value Range Interpretation Code Description Data Pennie rce(s) Supporting Document(s) White Blood Count 13.4 10 4.0-10.0 Above high normal [facility] ([facility] Red Blood Count 3.51 10 4.30-6.10 Below low normal [facility] ([facility] Hemoglobin 9.9 g/dL 13.5-17.5 Below low normal [facility] ( [facility] Mean Corpuscular Hemoglobin 28.2 pg 27.0-33.0 Norm al (applies to non-numeric results) [facility] ([facility] ) Mean Corpuscular Volume 89.5 fl 80.0-96.0 Normal ( applies to non-numeric results) [facility] ([facility] ) Hematocrit 31.4 % 42.0-52.0 Below low normal [facility] ( [facility] Mean Corpuscular HGB Conc 31.5 g/dL 32.0-36.5 Below low normal [facility] ([facility] Red Cell Distribution Width 19.2 % 11.5-14.5 Above high normal [facility] ([facility] Nucleated Red Blood Cell % 0.0 % 0-0 Normal (applies to n on-numeric results) [facility] ([facility] Platelet Count, Automated 201 10 150-450 Normal (applies to non-numeric results) [facility] ([facility] ) ID Date Data Source [id number] 01/17/2020 06:14:00 PM EDT [facility] ([facility] [...] Normal (applies to non-numeric r esults) [facility] ([facility] Myelocytes 3 % 0-0 Above high normal [facility] ([facility] Anisocytosis Laboratory test result Normal (applies to non -numeric results) [facility] ([facility] ID Date Data Source [id number] 01/17/2020 06:14:00 PM EDT [facility] ([facility] Name Value Range Interpretation Code Description Data Pennie rce(s) Supporting Document(s) Platelets [#/volume] in Blood by Estimate Laboratory test result Normal (applies to non-numeric results) [facility] ([facility] ID Date Data Source [id number] 12/24/2019 04:02:00 PM EDT [facility] ([facility] Blood by Automated count 16 % [facility] ([facility]) Neutrophils/100 leukocytes in Blood by Automated count 74 % [facility] Laboratory test finding (navigational concept) 3 % [facility] ([facility]) Eosinophils/100 leukocytes in Blood by Automated count 1 % [facility] ([facility]) Immature cells [#/volume] in Blood Laboratory test result [facility] ([facility]) Basophils/100 leukocytes in Blood by Automated count 1 % [facility] ([facility]) Lymphocytes [#/volume] in Blood 0.4 x10E3/uL 0.7-3.1 [facility] ([facility]) Neutrophils [#/volume] in Blood by Automated count 10.4 x10E3/uL 1.4- 7.0 [facility] ([facility]) Eosinophils [#/volume] in Blood by Automated count 0.1 x10E3/uL 0.0-0 .4 [facility] ([facility]) Monocytes [#/volume] in Blood 2.3 x10E3/uL 0.1-0.9 [facility] ([facility]) Basophils [#/volume] in Blood by Automated count 0.1 x10E3/uL 0.0-0.2 [facility] ([facility]) Immature granulocytes [#/volume] in Blood by Automated count Laboratory test result [facility] ([facility]) Nucleated erythrocytes/100 leukocytes [Ratio] in Blood by Automated count Laboratory test result [facility] Immature granulocytes/100 leukocytes in Blood by Autom ated count Laboratory test result [facility] ([facility] Morphology [Interpretation] in Blood Narrative Laboratory test result [facility] Manual differential was performed. Bands Laboratory test result [facility] Promyelocytes [#] in Body fluid by Manual count Laboratory test resul t [facility] ([facility], ) Metamyelocytes/100 leukocytes in Blood 1 % 0-0 [facility] ([facility]) Myelocytes [#/volume] in Blood 4 % 0-0 [facility] ([facility] ) Laboratory test finding (navigational concept) Laboratory test result [facility] Laboratory test finding (navigational concept) Laboratory test result [facility] ([facility] Laboratory test finding (navigational concept) Laboratory test result [facility] ([facility] ID Date Data Source [id number] 12/24/2019 04:02:00 PM EDT [facility] ([facility] Name Value [...] Auto mated count 89 fL 79-97 [facility] ([facility] Hematocrit [Volume Fraction] of Blood by Automated count 31.8 % 37.5-51.0 Below low normal [facility] ([facility] ) Erythrocyte mean corpuscular hemoglobin [Entitic mass] by Automated count 29.0 pg 26.6-33.0 [facility] ([facility] Erythrocyte mean corpuscular hemoglobin concentration [Mass/volume] by Automated count 32.7 g/dL 31.5-35.7 [facility] ([facility] Platelets [#/volume] in Blood by Automated count 193 x10E3/uL 150-450 [facility] ([facility] Erythrocyte distribution width [Ratio] by Automated count 18.3 % 11.6-15.4 Above high normal [facility] ([facility] ) Lymphs 3 % [facility] Monocytes/100 leukocytes in Blood by Automated count 16 % [facility] ([facility] Neutrophils 74 % [facility] ([facility] Basophils/100 leukocytes in [...] by Automated count Laboratory test result [facility] Immature granulocytes/100 leukocytes in Blood by Autom ated count Laboratory test result [facility] ([facility] Immature granulocytes [#/volume] in Blood by Automated count Laboratory test result [facility] ([facility] Morphology [Interpretation] in Blood [...] finding (navigational concept) Laboratory test result [facility] ([facility] ID Date Data Source [id number] 12/24/2019 04:01:00 PM EDT [facility] ([facility]) Name Value Range Interpretation Code Description Data Pennie rce(s) Supporting Document(s) Laboratory test finding (navigational concept) Laboratory test result [facility] ([facility]) Appearance of Urine Laboratory test result [facility] ([facility]) Specific [place] 1.025 1.00-1.03 [facility] ([facility]) Laboratory test finding (navigational concept) 5.0 5.0-8.0 [facility] ([facility]) Laboratory test finding (navigational concept) Laboratory test result [facility] ([facility]) Laboratory test finding (navigational concept) Laboratory test result [facility] ([facility]) Bilirubin.total [Presence] in Urine by Test strip Laboratory test res ult [facility] ([facility]) Urobilinogen 0.2 EU/dl 0.2-1.0 [facility] ([facility]) Laboratory test finding (navigational concept) Laboratory test result [facility] ([facility]) Laboratory test finding (navigational concept) Laboratory test result [facility] ([facility]) Laboratory test finding (navigational concept) Laboratory test result [facility] ([facility]) Nitrite Laboratory test result [facility] ([facility]) ID Date Data Source [id number] 12/24/2019 04:01:00 PM EDT [facility] ([facility] Name Value Range Interpretation Code Description Data Pennie rce(s) Supporting Document(s) Appearance of Urine Laboratory test result [facility] ([facility] Specific [place] 1.025 1.00-1.03 [facility] Color Urine Laboratory test result M EDENT ([facility] Glucose Urine Laboratory test result [facility] ([facility] Bilirubin.total [Presence] in Urine by Test strip Laboratory test res ult [facility] ([facility] PH Urine 5.0 5.0-8.0 [facility] ([facility] Blood Urine Laboratory test result M ED[facility] ([facility] Ketones Laboratory test result [facility] ([facility] Nitrite Laboratory test result [facility] ([facility] Protein Urine Laboratory test result [facility] ([facility] Urobilinogen 0.2 EU/dl 0.2-1.0 [facility] ([facility] Leukocytes Laboratory test result ME DENT ([facility] ID Date Data Source [id number] 12/07/2019 01:14:00 PM EDT [facility] ([facility] ) Name Value Range Interpretation Code Description Data Pennie rce(s) Supporting Document(s) Magnesium [Mass/volume] in Serum or Plasma 1.8 mg/dL 1.8-2.4 [facility] ([facility]) ID Date Data Source [id number] 12/07/2019 01:14:00 PM EDT [facility] ([facility]) Name Value Range Interpretation Code Description Data Pennie rce(s) Supporting Document(s) Blood Urea Nitrogen 22 mg/dL 7-18 [facility] ([facility]) Glucose, Fasting 126 mg/dL 70-100 [facility] ([facility]) Glomerular Filtration Rate Laboratory test result [facility] ([facility]) <content>Units are mL/min/1.73 m2</content>
<content></content>
<content>Chronic Kidney Disease Staging per NKF:</content>
<content></content>
<content>Stage I & II GFR >=60 Normal to Mildly Decreased</content>
<content>Stage III GFR 30- 59 Moderately Decreased</content>
<content>Stage IV GFR 15-29 Severely Decreased</content>
<content>Stage V GFR <15 Very Little GFR Left</content>
<content>ESRD GFR <15 on ROLL SHEETING CUTTER</content>
<content></content>
<content></content> Sodium Level 144 meq/L 136-145 [facility] ([facility]) Creatinine For GFR 1.03 mg/dL 0.70-1.30 [facility] ([facility]) Carbon Dioxide Level 30 meq/L 21-32 [facility] ([facility]) Chloride Level 110 meq/L 98-107 [facility] ([facility]) Potassium Serum 3.9 meq/L 3.5-5.1 [facility] ([facility]) Calcium Level 8.5 mg/dL 8.8-10.2 [facility] ([facility]) Anion Gap 4 meq/L 8-16 [facility] ([facility]) ID Date Data Source [id number] 12/07/2019 01:14:00 PM EDT [facility] ([facility] Name Value Range Interpretation Code Description Data Pennie rce(s) Supporting Document(s) Magnesium [Mass/volume] in Serum or Plasma 1.8 mg/dL 1.8-2 .4 Normal (applies to non-numeric results) [facility] ([facility]) ID Date Data Source [id number] 12/07/2019 01:14:00 PM EDT [facility] ([facility] Name Value Range Interpretation Code Description Data Pennie rce(s) Supporting Document(s) Glucose, Fasting 126 mg/dL 70-100 Above high normal M [facility]ENT ([facility] Glomerular Filtration Rate Laboratory test result Normal (applies to non- numeric results) [facility] ([facility] ) <content>Units are mL/min/1.73 m2</content>
<content></content>
<content>Chronic Kidney Disease Staging per NKF:</content>
<content></content>
<content>Stage I & II GFR >=60 Normal to Mildly Decreased</content>
<content>Stage III GFR 30- 59 Moderately Decreased</content>
<content>Stage IV GFR 15-29 Severely Decreased</content>
<content>Stage V GFR <15 Very Little GFR Left</content>
<content>ESRD GFR <15 on ROLL SHEETING CUTTER</content>
<content></content> Blood Urea Nitrogen 22 mg/dL 7-18 Above high normal [facility] ([facility] Creatinine For GFR 1.03 mg/dL 0.70-1.30 Normal (applies to non -numeric results) [facility] ([facility] Potassium Serum 3.9 meq/L 3.5-5.1 Normal (applies to non-numeric results) [facility] ([facility] Sodium Level 144 meq/L 136-145 Normal (applies to non-numeric res ults) [facility] ([facility] Chloride Level 110 meq/L 98-107 Above high normal [facility] ([facility] Carbon Dioxide Level 30 meq/L 21-32 Normal (applies to non-num romeo results) [facility] ([facility] Calcium Level 8.5 mg/dL 8.8-10.2 Below low normal [facility] ([facility] Anion Gap 4 meq/L 8-16 Below low normal [facility] ( [facility] ID Date Data Source [id number] 11/12/2019 03:40:00 PM EDT [facility] ([facility] Name Value Range Interpretation Code Description Data Pennie rce(s) Supporting Document(s) Ammonia [Moles/volume] in Plasma 78 ug/dL 28-135 [facility] ([facility] Please note reference interval change* * ID Date Data Source [id number] 11/12/2019 03:40:00 PM EDT [facility] ([facility] Name Value Range Interpretation Code Description Data Pennie rce(s) Supporting Document(s) Thyrotropin [Units/volume] in Serum or Plasma 1.239 ulU/mL 0.60-4.8 [facility] ([facility] ID Date Data Source [id number] 11/12/2019 03:39:00 PM EDT [facility] ([facility] Name Value Range Interpretation Code Description Data Pennie rce(s) Supporting Document(s) No Urine Received Laboratory test result [facility] ([facility] Test(s) 060414-Najwuqnzqaptp Acid, U was developed and its performance characteristics determined by [facility]. It has not been cleared or approved by the Food and Drug Administration. ID Date Data Source [id number] 11/12/2019 03:39:00 PM EDT [facility] ([facility] Name Value Range Interpretation Code Description Data Pennie rce(s) Supporting Document(s) Glucose [Mass/volume] in Serum or Plasma 158 mg/dL 65-99 Above high normal [facility] ([facility] Test(s) [id number]-Kjlicwakubyai Acid, U was developed and its performance characteristics determined by [facility]. It has not been cleared or approved by the Food and Drug Administration. Creatinine [Mass/volume] in Serum or Plasma 1.26 mg/dL 0.76-1.27 [facility] ([facility] Test(s) [id number] Acid, U was developed and its performance characteristics determined by [facility]. It has not been cleared or approved by the Food and Drug Administration. BUN 21 mg/dL 8-27 [facility] ([facility] Test(s) 116354-Ymswnhwdxxtyi Acid, U was developed and its performance characteristics determined by [facility]. It has not been cleared or approved by the Food and Drug Administration. eGFR If NonAfricn Am 52 mL/min/1.73 Below low normal [facility] ([facility] Test(s) 259118-Fjtrhlcxkgvlm Acid, U was developed and its performance characteristics determined by [facility]. It has not been cleared or approved by the Food and Drug Administration. Urea nitrogen/Creatinine [Mass Ratio] in Serum or Plasma 17 1 0-24 [facility] ([facility] Test(s) 703537-Dnoaywhwehfho Acid, U was developed and its performance characteristics determined by [facility]. It has not been cleared or approved by the Food and Drug Administration. eGFR If Africn Am 60 mL/min/1.73 [facility] ([facility] Test(s) 717741-Wphaqymqzcpor Acid, U was developed and its performance characteristics determined by [facility]. It has not been cleared or approved by the Food and Drug Administration. Sodium [Moles/volume] in Serum or Plasma 144 mmol/L 134-144 [facility] ([facility] Test(s) 707335-Fuvevzbbzpogj Acid, U was developed and its performance characteristics determined by [facility]. It has not been cleared or approved by the Food and Drug Administration. Chloride [Moles/volume] in Serum or Plasma 105 mmol/L 96-106 [facility] ([facility] Test(s) 766995-Ztqoxkwztxdjo Acid, U was developed and its performance characteristics determined by [facility]. It has not been cleared or approved by the Food and Drug Administration. Potassium [Moles/volume] in Serum or Plasma 4.2 mmol/L 3.5-5.2 [facility] ([facility] Test(s) 542720-Asppxnwywbeot Acid, U was developed and its performance characteristics determined by [facility]. It has not been cleared or approved by the Food and Drug Administration. Calcium [Mass/volume] in Serum or Plasma 8.6 mg/dL 8.6-10.2 [facility] ([facility] Test(s) 335460-Mnlshhtbrmhzd Acid, U was developed and its performance characteristics determined by [facility]. It has not been cleared or approved by the Food and Drug Administration. Carbon dioxide, total [Moles/volume] in Serum or Plasma 28 mmol/L 20 -29 [facility] ([facility] Test(s) 920307-Vduwzvkiaucsj Acid, U was developed and its performance characteristics determined by [facility]. It has not been cleared or approved by the Food and Drug Administration. Protein [Mass/volume] in Serum or Plasma 5.4 g/dL 6.0-8.5 Below low normal [facility] ([facility] Test(s) 931854-Qstjgfueiovfl Acid, U was developed and its performance characteristics determined by [facility]. It has not been cleared or approved by the Food and Drug Administration. Albumin [Mass/volume] in Serum or Plasma 3.6 g/dL 3.6-4.6 [facility] ([facility] Test(s) 103754-Lyboamhqdymts Acid, U was developed and its performance characteristics determined by [facility]. It has not been cleared or approved by the Food and Drug Administration. Globulin [Mass/volume] in Serum by calculation 1.8 g/dL 1.5-4.5 [facility] ([facility] Test(s) 593227-Mckvyiiyfqdsj Acid, U was developed and its performance characteristics determined by [facility]. It has not been cleared or approved by the Food and Drug Administration. Albumin/Globulin [Mass Ratio] in Serum or Plasma 2.0 1.2-2.2 [facility] ([facility] Test(s) 302503-Llmizxknsqoia Acid, U was developed and its performance characteristics determined by [facility]. It has not been cleared or approved by the Food and Drug Administration. Alkaline phosphatase [Enzymatic activity/volume] in Serum or Plasma 45 IU/L 39-117 [facility] ([facility] Test(s) 038609-Poyzzqametomp Acid, U was developed and its performance characteristics determined by [facility]. It has not been cleared or approved by the Food and Drug Administration. Bilirubin.total [Mass/volume] in Serum or Plasma 0.3 mg/dL 0.0-1.2 [facility] ([facility] Test(s) 459143-Mudctybfazaao Acid, U was developed and its performance characteristics determined by [facility]. It has not been cleared or approved by the Food and Drug Administration. Aspartate aminotransferase [Enzymatic activity/volume] in Serum or Plasma 19 IU/L 0-40 [facility] ([facility] Test(s) 073842-Pjejlvicyycba Acid, U was developed and its performance characteristics determined by [facility]. It has not been cleared or approved by the Food and Drug Administration. Alanine aminotransferase [Enzymatic activity/volume] in Seru m or Plasma 16 IU/L 0-44 [facility] Test(s) 892052-Uvlrcrhbxbzar Acid, U was developed and its performance characteristics determined by [facility]. It has not been cleared or approved by the Food and Drug Administration. ID Date Data Source [id number] 11/12/2019 03:39:00 PM EDT [facility] ([facility] Name Value Range Interpretation Code Description Data Pennie rce(s) Supporting Document(s) Leukocytes [#/volume] in Blood by Automated count 12.7 x10E3/uL 3.4-10.8 Above high normal [facility] ([facility] ) Test(s) 459718-Tixqvgvvezeub Acid, U was developed and its performance characteristics determined by [facility]. It has not been cleared or approved by the Food and Drug Administration. Erythrocytes [#/volume] in Blood by Automated count 3.51 x10E6/u L 4.14-5.80 Below low normal [facility] ([facility] ) Test(s) 448034-Akldwtbpqlsin Acid, U was developed and its performance characteristics determined by [facility]. It has not been cleared or approved by the Food and Drug Administration. Hemoglobin [Mass/volume] in Blood 9.9 g/dL 13.0-17.7 Below low nor mal [facility] ([facility] Test(s) 323052-Wltsouhfbaqye Acid, U was developed and its performance characteristics determined by [facility]. It has not been cleared or approved by the Food and Drug Administration. Hematocrit [Volume Fraction] of Blood by Automated count 30.5 % 37.5-51.0 Below low normal [facility] ([facility] ) Test(s) 487562-Mehotgfrhmcps Acid, U was developed and its performance characteristics determined by [facility]. It has not been cleared or approved by the Food and Drug Administration. Erythrocyte mean corpuscular volume [Entitic volume] by Auto mated count 87 fL 79-97 [facility] Test(s) 063443-Hjrgtdqgflzrw Acid, U was developed and its performance characteristics determined by [facility]. It has not been cleared or approved by the Food and Drug Administration. Erythrocyte mean corpuscular hemoglobin [Entitic mass] by Automated count 28.2 pg 26.6-33.0 [facility] ([facility] Test(s) 935033-Cnttrupehvslq Acid, U was developed and its performance characteristics determined by [facility]. It has not been cleared or approved by the Food and Drug Administration. Erythrocyte mean corpuscular hemoglobin concentration [Mass/volume] by Automated count 32.5 g/dL 31.5-35.7 [facility] ([facility] Test(s) 328814-Whxobtxvgemwi Acid, U was developed and its performance characteristics determined by [facility]. It has not been cleared or approved by the Food and Drug Administration. Erythrocyte distribution width [Ratio] by Automated count 17.7 % 11.6-15.4 Above high normal [facility] ([facility] ) Test(s) 611501-Hofnnodpiqfxg Acid, U was developed and its performance characteristics determined by [facility]. It has not been cleared or approved by the Food and Drug Administration. Platelets [#/volume] in Blood by Automated count 267 x10E3/uL 150-450 [facility] ([facility] Test(s) 113345-Tbndjanbhnwgg Acid, U was developed and its performance characteristics determined by [facility]. It has not been cleared or approved by the Food and Drug Administration. Neutrophils 80 % [facility] ([facility] Test(s) 926188-Udskqaxzsklgg Acid, U was developed and its performance characteristics determined by [facility]. It has not been cleared or approved by the Food and Drug Administration. Lymphs 7 % [facility] ([facility] Test(s) 169788-Qiccefbrixwhc Acid, U was developed and its performance characteristics determined by [facility]. It has not been cleared or approved by the Food and Drug Administration. Monocytes/100 leukocytes in Blood by Automated count 8 % [facility] ([facility] Test(s) 153832-Ylesjlcnulefb Acid, U was developed and its performance characteristics determined by [facility]. It has not been cleared or approved by the Food and Drug Administration. Eosinophils/100 leukocytes in Blood by Automated count 0 % [facility] ([facility] Test(s) 763995-Jvbusykxzjmga Acid, U was developed and its performance characteristics determined by [facility]. It has not been cleared or approved by the Food and Drug Administration. Basophils/100 leukocytes in Blood by Automated count 2 % [facility] ([facility] Test(s) 958265-Eumhvfirerlvm Acid, U was developed and its performance characteristics determined by [facility]. It has not been cleared or approved by the Food and Drug Administration. Immature cells [#/volume] in Blood Laboratory test result [facility] ([facility] Test(s) 028421-Dnekaagryynxj Acid, U was developed and its performance characteristics determined by [facility]. It has not been cleared or approved by the Food and Drug Administration. Lymphocytes [#/volume] in Blood 0.9 x10E3/uL 0.7-3.1 [facility] ([facility] Test(s) 340686-Kpzbirucaigde Acid, U was developed and its performance characteristics determined by [facility]. It has not been cleared or approved by the Food and Drug Administration. Neutrophils [#/volume] in Blood by Automated count 10.2 x10E3/uL 1.4-7.0 Above high normal [facility] ([facility] ) Test(s) 841144-Oshkocpjzcggp Acid, U was developed and its performance characteristics determined by [facility]. It has not been cleared or approved by the Food and Drug Administration. Monocytes [#/volume] in Blood 1.0 x10E3/uL 0.1-0.9 Above high norm al [facility] ([facility] Test(s) 082484-Vsreiojeqvcng Acid, U was developed and its performance characteristics determined by [facility]. It has not been cleared or approved by the Food and Drug Administration. Basophils [#/volume] in Blood by Automated count 0.3 x10E3/uL 0.0-0.2 Above high normal [facility] ([facility] ) Test(s) 388088-Smtlrxepwmvwe Acid, U was developed and its performance characteristics determined by [facility]. It has not been cleared or approved by the Food and Drug Administration. Eosinophils [#/volume] in Blood by Automated count 0.0 x10E3/uL 0.0-0 .4 [facility] ([facility] Test(s) 601848-Fujwururyrzee Acid, U was developed and its performance characteristics determined by [facility]. It has not been cleared or approved by the Food and Drug Administration. Immature granulocytes/100 leukocytes in Blood by Autom ated count Laboratory test result [facility] Test(s) 291461-Bthpqpbrkweek Acid, U was developed and its performance characteristics determined by [facility]. It has not been cleared or approved by the Food and Drug Administration. Nucleated erythrocytes/100 leukocytes [Ratio] in Blood by Automated count Laboratory test result [facility] ([facility] Test(s) 450852-Rngccyvhsesrw Acid, U was developed and its performance characteristics determined by [facility]. It has not been cleared or approved by the Food and Drug Administration. Immature granulocytes [#/volume] in Blood by Automated count Laboratory test result [facility] Test(s) 024564-Gmcigyvrytsts Acid, U was developed and its performance characteristics determined by [facility]. It has not been cleared or approved by the Food and Drug Administration. Morphology [Interpretation] in Blood Narrative Laboratory test result [facility] ([facility] Test(s) 116492-Nutjjtrvsrwba Acid, U was developed and its performance characteristics determined by [facility]. It has not been cleared or approved by the Food and Drug Administration. Bands Laboratory test result [facility] ([facility] Test(s) 497351-Ffeddiqcndlak Acid, U was developed and its performance characteristics determined by [facility]. It has not been cleared or approved by the Food and Drug Administration. Myelocytes Laboratory test result [facility] ([facility] Test(s) 485985-Gmloupdehsvpq Acid, U was developed and its performance characteristics determined by [facility]. It has not been cleared or approved by the Food and Drug Administration. Metamyelocytes 3 % 0-0 Above high normal [facility] ([facility] Test(s) 638695-Kumdjlsgraiza Acid, U was developed and its performance characteristics determined by [facility]. It has not been cleared or approved by the Food and Drug Administration. Promyelocytes Laboratory test result [facility] ([facility] Test(s) 252898-Gbhetbggjzgmw Acid, U was developed and its performance characteristics determined by [facility]. It has not been cleared or approved by the Food and Drug Administration. Laboratory test finding (navigational concept) Laboratory test result [facility] ([facility] Test(s) 046737-Wkymwowyjnclg Acid, U was developed and its performance characteristics determined by [facility]. It has not been cleared or approved by the Food and Drug Administration. Laboratory test finding (navigational concept) Laboratory test result [facility] ([facility] Test(s) 531823-Prsvqkhomnurd Acid, U was developed and its performance characteristics determined by [facility]. It has not been cleared or approved by the Food and Drug Administration. Laboratory test finding (navigational concept) Laboratory test result [facility] ([facility] Test(s) 129959-Iroxmguolqhuy Acid, U was developed and its performance characteristics determined by [facility]. It has not been cleared or approved by the Food and Drug Administration. ID Date Data Source [id number] 11/12/2019 03:39:00 PM EDT [facility] ([facility] Name Value Range Interpretation Code Description Data Pennie rce(s) Supporting Document(s) Cobalamin (Vitamin B12) [Mass/volume] in Serum or Plasma 412 pg/mL 2 32-1245 [facility] ([facility] Test(s) 012623-Szqsegbyotnue Acid, U was developed and its performance characteristics determined by [facility]. It has not been cleared or approved by the Food and Drug Administration. ID Date Data Source [id number] 10/27/2019 02:53:00 AM EDT [facility] [id number] Name Value Range Interpretation Code Description Data Pennie rce(s) Supporting Document(s) TROPONIN I < 0.017 ng/mL 0.0-0.056 [facility] ID Date Data Source [id number] 10/26/2019 08:42:00 PM EDT [facility] [id number] Name Value Range Interpretation Code Description Data Pennie rce(s) Supporting Document(s) TROPONIN I < 0.017 ng/mL 0.0-0.056 [facility] ID Date Data Source [id number] 10/26/2019 04:06:00 PM EDT [facility] [id number] Name Value Range Interpretation Code Description Data Pennie rce(s) Supporting Document(s) URINE COLOR. [facility] URINE APPEARANCE CLEAR [facility] SPECIFIC GRAVITY,URINE 1.020 1.001-1.035 [facility] URINE LEUKOCYTE ESTERASE NEGATIVE NEGATIVE [facility] URINE NITRATE NEGATIVE NEGATIVE [facility] PH,URINE 5.5 5.0-9.0 [facility] URINE PROTEIN NEGATIVE mg/dL NEGATIVE [facility] GLUCOSE (UA) NEGATIVE mg/dL NEGATIVE [facility] URINE KETONE NEGATIVE mg/dL [facility]GATIVE [facility] UROBILINOGEN NORMAL(0.2-1) mg/dL 0-1 [facility] URINE BILIRUBIN NEGATIVE NEGATIVE [facility] URINE BLOOD TRACE NEGATIVE H [facility] ID Date Data Source [id number] 10/26/2019 04:06:00 PM EDT [facility] [id number] Name Value Range Interpretation Code Description Data [facility] rce(s) Supporting Document(s) URINE RBC 0-2 /hpf 0-3 [facility] URINE WBC 0-2 /hpf 0-5 [facility] URINE EPITHELIAL CELLS 1+ /hpf 0 [facility] ID Date Data Source [id number] 10/26/2019 03:34:00 PM EDT [facility] DATE OF EXAMINATION: 10/26/2019 13:27 EDT TECHNIQUE: [...] Name Value Range Interpretation Code Description Data [facility] rce(s) Supporting Document(s) ID Date Data Source [id number] 10/28/2019 09:06:00 AM EDT [facility] Name Value Range Interpretation Code Description Data [facility] rce(s) Supporting Document(s) SARS-CoV-2 Antibody, IgM Negative Negative [facility] This sample does not contain detectable SARS-CoV-2 IgM antibodies.This negative result does not rule out SARS-CoV-2 infection.Correlation with epidemiologic risk factors and other clinical andlaboratory findings is recommended. Serologic results should not beused as the sole basis to diagnose or exclude recent [id number]. ID Date Data Source [id number] 10/28/2019 02:07:00 PM EDT [facility] Name Value [...] SARS-CoV-2 IgG assay. ID Date Data Source [id number] 10/28/2019 04:06:00 PM EDT [facility] Name Value [...] sole basis to diagnose or exclude recent [id number]. ID Date Data Source [id number] 10/26/2019 03:04:00 PM EDT [facility] [id number] Name Value Range Interpretation Code Description Data Pennie rce(s) Supporting Document(s) PARTIAL THROMBOPLASTIN TIME 23.1 SECONDS 21.4-30.2 [facility] ID Date Data Source [id number] 10/26/2019 03:04:00 PM EDT [facility] [id number] Name Value Range Interpretation Code Description Data Pennie rce(s) Supporting Document(s) PROTHROMBIN TIME (PATIENT) 11.3 SECONDS 9.2-11.6 [facility] INR 1.09 0.87-1.06 H [facility] ID Date Data Source [id number] 11/01/2019 12:06:00 PM EDT [facility] Name Value Range Interpretation Code Description Data Pennie rce(s) Supporting Document(s) BLOOD CULTURE, ROUTINE Final report . [facility] 11/01/19 1206: BLOOD CULT, RT previousl y reported as: Preliminary report BC RESULT1 Comment . [facility] No aerobic or anaerobic growth in five d ays.Performed at: [facility] [id number] Director: Linda Garsia MD, Phone: [phone]/06/17 1206: BC RESULT1 previously reported as: Comment No growth in 36 - 48 hours. Performed at: [facility] [id number] [employer] Operator: Linda Garsia MD, Phone: [phone] 10/29/19 1405: BC RESULT1 previously reported as: Comment No growth after 16-24 hours. Performed at: [facility] [address] [id number] [employer] Operator: Linda Garsia MD, Phone: [phone] @ Edited by: @ Reason: [] ID Date Data Source [id number] 11/01/2019 12:05:00 PM EDT [facility] Name Value Range Interpretation Code Description Data Pennie rce(s) Supporting Document(s) Blood Culture, Routine Final report [facility] ID Date Data Source [id number] 11/01/2019 12:05:00 PM EDT [facility] Name Value Range Interpretation Code Description Data Pennie rce(s) Supporting Document(s) Result 1 [facility] No aerobic or anaerobic growth in five d ays. ID Date Data Source [id number] 10/26/2019 02:35:00 PM EDT [facility] [id number] Name Value Range Interpretation Code Description Data Pennie rce(s) Supporting Document(s) BLOOD TYPE ABO O [facility] RH TYPE POSITIVE [facility] ANTIBODY SCREEN NEGATIVE [facility] ID Date Data Source [id number] 10/26/2019 02:45:00 PM EDT [facility] [id number] Name Value Range Interpretation Code Description Data Pennie rce(s) Supporting Document(s) C REACTIVE PROTEIN 10.3 mg/L 0.0-3.0 [facility] ID Date Data Source [id number] 10/26/2019 02:45:00 PM EDT [facility] [id number] Name Value Range Interpretation Code Description Data Pennie rce(s) Supporting Document(s) MAGNESIUM 1.7 mg/dL 1.8-2.4 L [facility] ID Date Data Source [id number] 10/26/2019 02:45:00 PM EDT [facility] [id number] Name Value Range Interpretation Code Description Data Pennie rce(s) Supporting Document(s) TROPONIN I < 0.017 ng/mL 0.0-0.056 [facility] ID Date Data Source [id number] 10/26/2019 03:10:00 PM EDT [facility] [id number] Name Value Range Interpretation Code Description Data Pennie rce(s) Supporting Document(s) CREATINE PHOSPHOKINASE 34 U/L 39-308 L [facility] ID Date Data Source [id number] 10/26/2019 02:45:00 PM EDT [facility] [id number] Name Value Range Interpretation Code Description Data Pennie rce(s) Supporting Document(s) LIPASE 147 U/L 73-393 [facility] ID Date Data Source [id number] 10/26/2019 02:45:00 PM EDT [facility] [id number] Name Value Range Interpretation Code Description Data Pennie rce(s) Supporting Document(s) GLUCOSE 128 mg/dL 74-106 H [facility] BLOOD UREA NITROGEN 18 mg/dL 7-18 [facility] CREATININE 1.1 mg/dL 0.7-1.3 [facility] SODIUM 139 mmol/L 136-145 [facility] POTASSIUM 4.0 mmol/L 3.5-5.1 [facility] CHLORIDE 104 mmol/L 98-107 [facility] CO2 29 mmol/L 21-32 [facility] CALCIUM 8.6 mg/dL 8.5-10.1 [facility] ANION GAP 6.0 mmol/L 5-12 [facility] GLOMERULAR FILTRATION RATE 64 mL/min [facility] GFR IS CALCULATED IN mL/min/1.73m2 ANAY L FUNCTION: >90MILDLY DECREASED: 60-89MILDY TO MODERATELY DECREASED: 45-59 MODERATELY TO SEVERELY DECREASED: 30-44SEVERELY DECREASED: 15-29RENAL FAILURE: <15 AST 23 U/L 15-37 [facility] ALT 19 U/L 12-78 [facility] ALKALINE PHOSPHATASE 31 U/L 46-116 L [facility] pital TOTAL BILIRUBIN 0.5 mg/dL 0.2-1.0 [facility] TOTAL PROTEIN 5.8 g/dl 6.4-8.2 L [facility] ALBUMIN 2.8 gm/dL 3.4-5.0 *L [facility] ID Date Data Source [id number] 10/26/2019 02:59:00 PM EDT [facility] TSYSORDER [id number] Name Value Range Interpretation Code Description Data Pennie rce(s) Supporting Document(s) Adenovirus Not Detected Detected Not [facility] Coronavirus 229E Not Detected Detected Not [facility] Coronavirus HKU1 Not Detected Detected Not [facility] Coronavirus NL63 Not Detected Detected Not [facility] Coronavirus OC43 Not Detected Detected Not [facility] Sars Cov 2 Not Detected Detected Not [facility] Human Metapneumovirus Not Detected Detected [facility] Human Rhinovirus DETECTED Detected [facility] Influenza A Not Detected Detected [facility] Influenza B Not Detected Detected [facility] Parainfluenza Virus 1 Not Detected Detected [facility] Parainfluenza Virus 2 Not Detected Detected [facility] Parainfluenza Virus 3 Not Detected Detected [facility] Parainfluenza Virus 4 Not Detected Detected Not [facility] Respiratory Syncytial Virus Not Detected Detected Not [facility] Bordetella parapertus ([id number]) Not Detected Detected Not [facility] Bordetella pertussis (ptxP) Not Detected Detected Not [facility] Chlamydia pneumoniae Not Detected Detected Not [facility] Mycoplasma pneumoniae Not Detected Detected Not [facility] The Above results have been determined b y using the [employer] FilmArray system.FilmArray is an automated in vitro diagnostic system thatutilizes nested multiplex Polymerase Chain Reaction (PCR)and high-resolution melting analysis to detect and identifymultiple nucleic acid targets from clinical specimens. ID Date Data Source [id number] 10/26/2019 02:48:00 PM EDT [facility] TSYSORDER [id number] Name Value Range Interpretation Code Description Data Pennie rce(s) Supporting Document(s) LACTIC ACID 0.9 mmol/L 0.4-2.0 [facility] ID Date Data Source [id number] 10/26/2019 02:45:00 PM EDT [facility] TSYSORDER [id number] Name Value Range Interpretation Code Description Data Pennie rce(s) Supporting Document(s) TSH 1.23 uIU/mL 0.36-3.74 [facility] ID Date Data Source [id number] 10/26/2019 02:45:00 PM EDT [facility] TSYSORDER [id number] Name Value Range Interpretation Code Description Data Pennie rce(s) Supporting Document(s) FREE T4 1.40 ng/dL 0.76-1.46 [facility] ID Date Data Source [id number] 10/26/2019 02:14:00 PM EDT [facility] TSYSORDER [id number] Name Value Range Interpretation Code Description Data Pennie rce(s) Supporting Document(s) WHITE BLOOD COUNT 12.6 K/mm3 4.0-10.0 H [facility] RED BLOOD COUNT 3.45 M/mm3 4.50-6.00 L [facility] HEMOGLOBIN 9.8 gm/dL 14.0-18.0 L [facility] HEMATOCRIT 29.6 % 42.0-54.0 L [facility] MEAN CELL VOLUME 85.8 fl 80-96 [facility] l MEAN CORPUSCULAR HEMOGLOBIN 28.4 pg 27.0-31.0 [facility] MEAN CORPUSCULAR HGB CONC 33.1 g/dl 32.0-36.0 [facility] RED CELL DISTRIBUTION WIDTH 18.3 % 10.0-14.5 H [facility] PLATELET COUNT 214 K/mm3 172-450 [facility] MEAN PLATELET VOLUME 10.8 fl 9.0-13.0 [facility] pital GRAN % 75.1 % 50-80.0 [facility] IG% 2.5 % 0.0-0.2 *H [facility] LYMPH % 4.4 % 25.0-50.0 *L [facility] MONO % 16.8 % 2.0-10.0 H [facility] EOS % 0.5 % 0-5.0 [facility] BASO % 0.7 % 0.0-2.0 [facility] GRAN # 9.5 K/mm3 2.0-8.00 H [facility] IG# 0.3 K/mm3 0.0-0.2 H [facility] LYMPH # 0.6 K/mm3 1.0-5.0 L [facility] MONO # 2.1 K/mm3 0.10-1.20 H [facility] EOS # 0.1 K/mm3 0.0-0.5 [facility] BASO # 0.1 K/mm3 0.0-0.2 [facility] ID Date Data Source [id number] 10/26/2019 01:35:00 PM EDT [facility] TSYSORDER [id number] Name Value Range Interpretation Code Description Data Pennie rce(s) Supporting Document(s) NEUTROPHILS 83 % 50-80 H [facility] LYMPHOCYTE 6 % 25-50 L [facility] MONOCYTE 11 % 2.0-10.0 H [facility] ANISOCYTOSIS 2+ [facility] OVALOCYTES 1+ [facility] ACANTHOCYTES 1+ [facility] PLATELET ESTIMATE NORMAL NORMAL [facility] RBC MORPHOLOGY EXPECTED RESULTS:NORMAL= NORMOCHROMIC, NORMOCYTIC CELLSAbnormal Morphologic Findings > or = to 1+ are reported.Clinicopathologic correlation by the provider is required todetermine significance of finding. ID Date Data Source [id number] 10/26/2019 02:10:00 PM EDT [facility] TSYSORDER [id number] Name Value Range Interpretation Code Description Data Pennie rce(s) Supporting Document(s) PH 7.39 7.31-7.41 [facility] VENOUS PCO2 47.6 mmHg 41-51 [facility] VENOUS PO2 41 mmHg 35-42 [facility] VENOUS BLODD O2 SATURATION 68.5 % 68-77 [facility] VENOUS BLOOD HCO3 28.4 meq/L 24.0-25.0 H [facility] VENOUS BASE EXCESS 3.5 -3.0-3.0 H [facility] VENOUS BLOOD CO2 29.9 mmol/L 23.0-32.0 [facility] [place] [facility] ID Date Data Source [id number] 11/01/2019 12:06:00 PM EDT [facility] Name Value Range Interpretation Code Description Data Pennie rce(s) Supporting Document(s) BLOOD CULTURE, ROUTINE Final report . [facility] 11/01/19 1206: BLOOD CULT, RT previousl y reported as: Preliminary report BC RESULT1 Comment . [facility] No aerobic or anaerobic growth in five d ays.Performed at: [facility] [address] [id number] Director: Linda Garsia MD, Phone: [phone]/03/20 1206: BC RESULT1 previously reported as: Comment No growth in 36 - 48 hours. Performed at: [facility] [address] [id number] [employer] Operator: Linda Garsia MD, Phone: [phone] 10/29/19 1405: BC RESULT1 previously reported as: Comment No growth after 16-24 hours. Performed at: [facility] [address] [id number] [employer] Operator: Linda Garsia MD, Phone: [phone] @ Edited by: @ Reason: [] ID Date Data Source [id number] 11/01/2019 12:05:00 PM EDT [facility] Name Value Range Interpretation Code Description Data Pennie rce(s) Supporting Document(s) Blood Culture, Routine Final report [facility] ID Date Data Source [id number] 11/01/2019 12:05:00 PM EDT [facility] Name Value Range Interpretation Code Description Data Pennie rce(s) Supporting Document(s) Result 1 [facility] No aerobic or anaerobic growth in five d ays. ID Date Data Source [id number] 10/26/2019 03:12:00 PM EDT [facility] TSYSORDER [id number] Name Value Range Interpretation Code Description Data Pennie rce(s) Supporting Document(s) ERYTHROCYTE SEDIMENTATION RATE 12 mm/hr 0-20 [facility] ID Date Data Source [id number] 10/26/2019 02:45:00 PM EDT [facility] TSYSORDER [id number] Name Value Range Interpretation Code Description Data Pennie rce(s) Supporting Document(s) B-TYPE NATRIURETIC PEPTIDE 751 pg/ml 0-450 *H [facility] ID Date Data Source [id number] 10/26/2019 01:13:00 PM EDT [facility] [...] noted. Base ofthe skull appears normal. IMPRESSION: [id number] diffuse cerebral atrophy of aging. DATE OF [...] Name Value Range Interpretation Code Description Data [facility] Supporting Document(s) ID Date Data Source [id number] 10/26/2019 01:13:00 PM EDT [facility] [...] noted. Base ofthe skull appears normal. IMPRESSION: [id number] diffuse cerebral atrophy of aging. DATE OF [...] jen(s) Supporting Document(s) ID Date Data Source [id number] 10/26/2019 01:11:00 PM EDT [facility] [...] rce(s) Supporting Document(s) 2019 Novel Coronavirus RNA [facility] This lab was ordered by [facility] L aboratory and reported by [facility] Laboratory. ID Date Data Source [id number] 10/21/2019 02:54:00 PM EDT [facility] ([facility]) Name Value Range Interpretation Code Description Data Pennie rce(s) Supporting Document(s) Calcium [Mass/volume] in Serum or Plasma 8.5 [facility] ([facility]) Sodium 144 [facility] ([facility]) Carbon dioxide, total [Moles/volume] in Serum or Plasma 30 [facility] ([facility]) Potassium [Moles/volume] in Serum or Plasma 3.9 [facility] ([facility]) Chloride [Moles/volume] in Serum or Plasma 110 [facility] ([facility]) Glucose 126 70-100 [facility] ([facility]) Blood Urea Nitrogen 22 5-21 [facility] (Ca [facility]) Creatinine 1.03 0.6-1.5 [facility] ([facility]) Glomerular filtration rate/1.73 sq M.pre dicted [Volume Rate/Area] in Serum or Plasma by Creatinine-based formula (MDRD) Laboratory test result [facility] ([facility]) ID Date Data Source [id number] 10/21/2019 02:54:00 PM EDT [facility] ([facility]) Name Value Range Interpretation Code Description Data Pennie rce(s) Supporting Document(s) White Blood Count 9.6 4.3-10.9 [facility] ([facility]) Platelets 195 130-400 [facility] ([facility]) Hemoglobin 9.5 13.0-17.0 [facility] ([facility]) Red Blood Count 3.31 4.70-6.20 [facility] ([facility]) Hematocrit 29.8 39.0-50.0 [facility] ([facility]) ID Date Data Source [id number] 10/21/2019 02:54:00 PM EDT [facility] Name Value Range Interpretation Code Description Data Pennie rce(s) Supporting Document(s) Albumin [Mass/volume] in Serum or Plasma 2.8 [facility] ([facility]) Calcium [Mass/volume] in Serum or Plasma 8.5 [facility] ([facility]) Alanine aminotransferase [Enzymatic activity/volume] in Serum or Pl asma 15 [facility] ([facility]) Alkaline phosphatase [Enzymatic activity/volume] in Serum or Plasma 3 8 [facility] ([facility]) Chloride [Moles/volume] in Serum or Plasma 107 [facility] ([facility]) Carbon dioxide, total [Moles/volume] in Serum or Plasma 31 [facility] ([facility]) Sodium 140 [facility] ([facility]) Potassium [Moles/volume] in Serum or Plasma 3.9 [facility] ([facility]) Protein [Mass/volume] in Serum or Plasma 5.4 [facility] ([facility]) Urea nitrogen [Mass/volume] in Serum or Plasma 18 [facility] ([facility]) Aspartate aminotransferase [Enzymatic activity/volume] in Serum or Plasma 15 [facility] ([facility]) Glucose 88 70-100 [facility] ([facility]) Creatinine For GFR 1.07 [facility] ID Date Data Source [id number] 10/21/2019 10:00:00 AM EDT [facility] (Famil y [...] Little GFR Left</content>
<content>ESRD GFR <15 on ROLL SHEETING CUTTER</content>
<content></content> Creatinine For GFR 1.07 mg/dL 0.70-1.30 [...] 0.2-1.0 Normal (applies to non-numeric results) [facility] ([facility] Total Protein 5.4 GM/DL 6.4-8.2 Below low normal MEDEN T ([facility] Albumin/Globulin Ratio 1.1 Normal (applies to non-n umeric results) [facility] ([facility] ID Date Data Source [id number] 10/21/2019 10:00:00 AM EDT [facility] ([facility] Name Value Range Interpretation Code Description Data Pennie rce(s) Supporting Document(s) Red Blood Count 3.31 10 4.30-6.10 Below low normal MED [facility] ([facility] White Blood Count 9.6 10 4.0-10.0 Normal (applies to non-numeri c results) [facility] ([facility] Mean Corpuscular Volume 90.0 fl 80.0-96.0 Normal ( applies to non-numeric results) [facility] Hematocrit 29.8 % 42.0-52.0 Below low normal [facility] ( [facility] Hemoglobin 9.5 g/dL 13.5-17.5 Below low normal [facility] ( [facility] Red Cell Distribution Width 18.6 % 11.5-14.5 Above high normal [facility] ([facility] Mean Corpuscular Hemoglobin 28.7 pg 27.0-33.0 Norm al (applies to non-numeric results) [facility] ([facility] ) Mean Corpuscular HGB Conc 31.9 g/dL 32.0-36.5 Below low normal [facility] ([facility] Lymph % 7.9 % 24.0-44.0 Below low normal [facility] ( [facility] Platelet Count, Automated 195 10 150-450 Normal (applies to non-numeric results) [facility] ([facility] ) Neutrophils % 72.3 % 36.0-66.0 Above high normal MEDE NT ([facility] Bandera % 14.5 % 0.0-5.0 Above high normal [facility] ([facility] Eos % 0.6 % 0.0-3.0 Normal (applies to non-numeric resul ts) [facility] ([facility] Baso % 0.4 % 0.0-1.0 Normal (applies to non-numeric resul ts) [facility] ([facility] Immature Granulocyte % 4.3 % 0-3.0 Above high normal [facility] ([facility] Nucleated Red Blood Cell % 0.0 % 0-0 Normal (applies to n on-numeric results) [facility] ([facility] Neutrophils # 6.9 10 1.5-8.5 Normal (applies to non-numeric re sults) [facility] ([facility] Eos # 0.1 10 0.0-0.5 Normal (applies to non-numeric resul ts) [facility] ([facility] Lymph # 0.8 10 1.5-5.0 Below low normal [facility] ( [facility] Bandera # 1.4 10 0.0-0.8 Above high normal [facility] ([facility] Baso # 0.0 10 0.0-0.2 Normal (applies to non-numeric resul ts) [facility] ([facility] ID Date Data Source [id number] 10/11/2019 02:44:00 PM EDT [facility] ([facility] Name Value Range Interpretation Code Description Data Pennie rce(s) Supporting Document(s) Glu 214 mg/dL 70-110 Above high normal [facility] ([facility] CHRONIC KIDNEY [...] mL/min Normal BUN 19 mg/dL 8-23 [facility] ([facility] CHRONIC KIDNEY DISEASE [...] 1.3 mg/dL 0.7-1.2 Above high normal [facility] ([facility] CHRONIC KIDNEY [...] mL/min Normal BUN/Creatinine Ratio 14.8 Calc [facility] ([facility] CHRONIC KIDNEY DISEASE [...] mL/min Normal Co2 25.8 mmol/L 22.0-29.0 [facility] ([facility] CHRONIC KIDNEY DISEASE STAGING [...] mL/min Normal K 4.1 mmol/L 3.5-5.1 [facility] CHRONIC KIDNEY DISEASE STAGING [...] mL/min Normal CA 8.8 mg/dL 8.6-10.2 [facility] CHRONIC KIDNEY DISEASE STAGING [...] mL/min Normal Na 138 mmol/L 136-145 [facility] ([facility] CHRONIC KIDNEY DISEASE STAGING [...] mL/min Normal Anion Gap 12 mmol/L DAWNA ([facility] CHRONIC KIDNEY DISEASE [...] mL/min Normal CL 104.0 mmol/L 98.0-107.0 DAW[facility] ([facility] CHRONIC KIDNEY DISEASE STAGING [...] mL/min Normal eGFR 58 # DAWNA ( [facility] CHRONIC KIDNEY [...] and above >32 mL/min Normal eGFR Non-Afr. Citizen Of [place] 50 # [facility] ([facility] CHRONIC KIDNEY [...] >32 mL/min Normal ID Date Data Source [id number] 10/11/2019 02:44:00 PM EDT [facility] ([facility] Name Value Range Interpretation Code Description Data Pennie rce(s) Supporting Document(s) Hemoglobin [Mass/volume] in Blood 10.3 g/dL 13.0-17.7 Below low nor mal [facility] ([facility] Erythrocytes [#/volume] in Blood by Automated count 3.55 x10E6/u L 4.14-5.80 Below low normal [facility] ([facility] ) Leukocytes [#/volume] in Blood by Automated count 12.9 x10E3/uL 3.4-10.8 Above high normal [facility] ([facility] ) Hematocrit [Volume Fraction] of Blood by Automated count 31.5 % 37.5-51.0 Below low normal [facility] ([facility] ) Erythrocyte mean corpuscular volume [Entitic volume] by Auto mated count 89 fL 79-97 [facility] Erythrocyte distribution width [Ratio] by Automated count 17.7 % 11.6-15.4 Above high normal [facility] ([facility] Erythrocyte mean corpuscular hemoglobin concentration [Mass/volume] by Automated count 32.7 g/dL 31.5-35.7 [facility] ([facility] Erythrocyte mean corpuscular hemoglobin [Entitic mass] by Automated count 29.0 pg 26.6-33.0 [facility] Neutrophils 79 % [facility] ([facility] Platelets [#/volume] in [...] 0.4 x10E3/uL 0.0-0.1 Above high normal [facility] ([facility] (An elevated percentage of Immature Gran ulocytes has not been found to be clinically significant as a sole clinical predictor of disease. Does NOT include bands or blast cells. associated physiological leukocytosis may also show increased immature granulocytes without clinical significance.) Immature granulocytes/100 leukocytes in Blood by Automated count 3 % [facility] ([facility] Nucleated erythrocytes/100 leukocytes [Ratio] in Blood by Automated count Laboratory test result [facility] ([facility] Morphology [Interpretation] in Blood Narrative Laboratory test result [facility] ([facility] ID Date Data Source [id number] 10/01/2019 08:40:00 AM EDT [facility] ([facility]) Name Value Range Interpretation Code Description Data Pennie rce(s) Supporting Document(s) White Blood Count 6.1 4.0-10.0 [facility] ([facility]) Platelets 175 150-450 [facility] ([facility]) Red Blood Count 3.07 4.30-6.10 [facility] ([facility]) Hemoglobin 8.7 [facility] [place] Hematocrit 28.0 [facility] [place]) ID Date Data Source [id number] 10/01/2019 08:40:00 AM EDT [facility] ([facility]) Name Value Range Interpretation Code Description [...] 30 21-32 [facility] ([facility]) Calcium 8.4 8.2-9.6 [facility] ([facility] [place] Glomerular filtration rate/1.73 sq M.pre dicted [Volume Rate/Area] in Serum or Plasma by Creatinine-based formula (MDRD) Laboratory test result [facility] ([facility]) ID Date Data Source [id number] 09/27/2019 08:54:00 AM EDT [facility] ([facility] [...] [facility] ) ID Date Data Source [id number] 09/21/2019 02:32:00 PM EDT [facility] ([facility] Name Value Range Interpretation Code Description Data Pennie rce(s) Supporting Document(s) Lipoprotein lipase [Enzymatic activity/volume] in Serum or P lasma 167 U/L 73-393 Normal (applies to non-numeric results) [facility] ([facility] ID Date Data Source [id number] 09/21/2019 02:32:00 PM EDT [facility] ([facility] Name Value Range Interpretation Code Description Data Pennie rce(s) Supporting Document(s) Glucose, Fasting 126 mg/dL 70-100 Above high normal M EDENT ([facility] Creatinine For GFR 1.93 mg/dL 0.70-1.30 Above high normal [facility] ([facility] Blood Urea Nitrogen 22 mg/dL 7-18 Above high normal [facility] ([facility] Glomerular Filtration Rate 35.5 Normal (applies to n on-numeric results) [facility] ([facility] <content>Units are mL/min/1.73 m2</content>
<content></content>
<content>Chronic Kidney Disease Staging per NKF:</content>
<content></content>
<content>Stage I & II GFR >=60 Normal to Mildly Decreased</content>
<content>Stage III GFR 30-59 Moderately Decreased</content>
<content>Stage IV GFR 15-29 Severely Decreased</content>
<content>Stage V GFR <15 Very Little GFR Left</content>
<content>ESRD GFR <15 on ROLL SHEETING CUTTER</content>
<content></content> Potassium Serum 3.4 meq/L 3.5-5.1 Below low normal [facility] ([facility] Sodium Level 139 meq/L 136-145 Normal (applies to non-numeric res ults) [facility] ([facility] Chloride Level 100 meq/L 98-107 Normal (applies to non-numeric r esults) [facility] ([facility] Anion Gap 5 meq/L 8-16 Below low normal [facility] ( [facility] Calcium Level 8.9 mg/dL 8.8-10.2 Normal (applies to non-numeric re sults) [facility] ([facility] Carbon Dioxide Level 34 meq/L 21-32 Above high normal [facility] ([facility] ID Date Data Source [id number] 09/21/2019 02:32:00 PM EDT [facility] ([facility] [facility] Name Value Range Interpretation Code Description Data Pennie rce(s) Supporting Document(s) Alt/SGPT 20 U/L 12-78 Normal (applies to non-numeric resul ts) MEDENT ([facility] Ast/Sgot 26 U/L 7-37 Normal (applies to non-numeric resul ts) MED[facility] ([facility] Bilirubin,Total 0.6 mg/dL 0.2-1.0 Normal (applies to non-numeric results) MEDENT ([facility] Alkaline Phosphatase 39 U/L 45-117 Below low normal MEDENT ([facility] Bilirubin,Direct 0.3 mg/dL 0.0-0.2 Above high normal M EDENT ([facility] Total Protein 5.8 GM/DL 6.4-8.2 Below low normal MEDEN T ([facility] Albumin/Globulin Ratio 0.9 Normal (applies to non-n umeric results) MEDENT ([facility] Albumin 2.8 GM/DL 3.2-5.2 Below low normal MEDENT ( [facility] ID Date Data Source [id number] 09/21/2019 02:32:00 PM EDT MEDENT ([facility] Name Value Range Interpretation Code Description Data Pennie rce(s) Supporting Document(s) Hemoglobin 11.0 g/dL 13.5-17.5 Below low normal MEDENT ( [facility] Red Blood Count 3.76 10 4.30-6.10 Below low normal MED ENT ([facility] White Blood Count 7.9 10 4.0-10.0 Normal (applies to non-numeri c results) MED[facility] ([facility] Mean Corpuscular Volume 89.6 fl 80.0-96.0 Normal ( applies to non-numeric results) [facility] ([facility] ) Hematocrit 33.7 % 42.0-52.0 Below low normal MEDENT ( [facility] Mean Corpuscular Hemoglobin 29.3 pg 27.0-33.0 Norm al (applies to non-numeric results) [facility] ([facility] ) Red Cell Distribution Width 19.0 % 11.5-14.5 Above high normal MED[facility] ([facility] Platelet Count, Automated 205 10 150-450 Normal (applies to non-numeric results) [facility] ([facility] ) Mean Corpuscular HGB Conc 32.6 g/dL 32.0-36.5 Normal (applies to non-numeric results) [facility] ([facility] ) Bandera % 13.6 % 0.0-5.0 Above high normal MED[facility] ([facility] Lymph % 8.4 % 24.0-44.0 Below low normal MEDENT ( [facility] Neutrophils % 73.1 % 36.0-66.0 Above high normal MEDE NT ([facility] Baso % 0.5 % 0.0-1.0 Normal (applies to non-numeric resul ts) MEDENT ([facility] Eos % 0.4 % 0.0-3.0 Normal (applies to non-numeric resul ts) MED[facility] ([facility] Immature Granulocyte % 4.0 % 0-3.0 Above high normal MEDENT ([facility] Nucleated Red Blood Cell % 0.0 % 0-0 Normal (applies to n on-numeric results) MEDENT ([facility] Neutrophils # 5.8 10 1.5-8.5 Normal (applies to non-numeric re sults) MED[facility] ([facility] Lymph # 0.7 10 1.5-5.0 Below low normal MEDENT ( [facility] Bandera # 1.1 10 0.0-0.8 Above high normal MEDENT ([facility] Baso # 0.0 10 0.0-0.2 Normal (applies to non-numeric resul ts) [facility] ([facility] Eos # 0.0 10 0.0-0.5 Normal (applies to non-numeric resul ts) [facility] ([facility] ID Date Data Source [id number] 09/16/2019 02:38:00 PM EDT MEDENT ([facility] Name Value Range Interpretation Code Description Data Pennie rce(s) Supporting Document(s) White Blood Count 8.7 10 4.0-10.0 Normal (applies to non-numeri c results) MED[facility] ([facility] Red Blood Count 3.76 10 4.30-6.10 Below low normal MED ENT ([facility] Hematocrit 34.4 % 42.0-52.0 Below low normal MEDENT ( [facility] Mean Corpuscular Volume 91.5 fl 80.0-96.0 Normal ( applies to non-numeric results) MED[facility] ([facility] ) Hemoglobin 10.8 g/dL 13.5-17.5 Below low normal MEDENT ( [facility] Mean Corpuscular Hemoglobin 28.7 pg 27.0-33.0 Norm al (applies to non-numeric results) [facility] ([facility] ) Red Cell Distribution Width 19.7 % 11.5-14.5 Above high normal MED[facility] ([facility] Mean Corpuscular HGB Conc 31.4 g/dL 32.0-36.5 Below low normal MEDENT ([facility] Platelet Count, Automated 168 10 150-450 Normal (applies to non-numeric results) MED[facility] ([facility] ) Neutrophils % 70.5 % 36.0-66.0 Above high normal MEDE NT ([facility] Lymph % 7.3 % 24.0-44.0 Below low normal MEDENT ( [facility] Eos % 0.7 % 0.0-3.0 Normal (applies to non-numeric resul ts) MEDENT ([facility] Bandera % 16.3 % 0.0-5.0 Above high normal MEDENT ([facility] Nucleated Red Blood Cell % 0.0 % 0-0 Normal (applies to n on-numeric results) MEDENT ([facility] Immature Granulocyte % 4.6 % 0-3.0 Above high normal MEDENT ([facility] Neutrophils # 6.2 10 1.5-8.5 Normal (applies to non-numeric re sults) MEDENT ([facility] Baso % 0.6 % 0.0-1.0 Normal (applies to non-numeric resul ts) MED[facility] ([facility] Eos # 0.1 10 0.0-0.5 Normal (applies to non-numeric resul ts) MED[facility] ([facility] Lymph # 0.6 10 1.5-5.0 Below low normal MEDENT ( [facility] Bandera # 1.4 10 0.0-0.8 Above high normal MEDENT ([facility] Baso # 0.1 10 0.0-0.2 Normal (applies to non-numeric resul ts) MED[facility] ([facility] ID Date Data Source [id number] 09/16/2019 02:38:00 PM EDT MEDENT ([facility] Name Value Range Interpretation Code Description Data Pennie rce(s) Supporting Document(s) Alt/SGPT 16 U/L 12-78 Normal (applies to non-numeric resul ts) MEDENT ([facility] Ast/Sgot 20 U/L 7-37 Normal (applies to non-numeric resul ts) MED[facility] ([facility] Alkaline Phosphatase 35 U/L 45-117 Below low normal MEDENT ([facility] Bilirubin,Direct 0.3 mg/dL 0.0-0.2 Above high normal M EDENT ([facility] Total Protein 5.5 GM/DL 6.4-8.2 Below low normal MEDEN T ([facility] Bilirubin,Total 0.7 mg/dL 0.2-1.0 Normal (applies to non-numeric results) [facility] ([facility] Albumin 2.9 GM/DL 3.2-5.2 Below low normal MED[facility] ( [facility] Albumin/Globulin Ratio 1.1 Normal (applies to non-n umeric results) MEDENT ([facility] ID Date Data Source [id number] 09/16/2019 02:38:00 PM EDT MEDENT ([facility] Name Value Range Interpretation Code Description Data Pennie rce(s) Supporting Document(s) Creatinine For GFR 1.38 mg/dL 0.70-1.30 Above high normal MEDENT ([facility] Blood Urea Nitrogen 15 mg/dL 7-18 Normal (applies to non-nume cristian results) MEDENT ([facility] Glucose, Fasting 85 mg/dL 70-100 Normal (applies to non-numeric results) MED[facility] ([facility] Potassium Serum 4.3 meq/L 3.5-5.1 Normal (applies to non-numeric results) MED[facility] ([facility] Sodium Level 142 meq/L 136-145 Normal (applies to non-numeric res ults) MEDENT ([facility] Glomerular Filtration Rate 52.3 Normal (applies to n on-numeric results) MED[facility] ([facility] <content>Units are mL/min/1.73 m2</content>
<content></content>
<content>Chronic Kidney Disease Staging per NKF:</content>
<content></content>
<content>Stage I & II GFR >=60 Normal to Mildly Decreased</content>
<content>Stage III GFR 30-59 Moderately Decreased</content>
<content>Stage IV GFR 15-29 Severely Decreased</content>
<content>Stage V GFR <15 Very Little GFR Left</content>
<content>ESRD GFR <15 on [employer]</content>
<content></content> Carbon Dioxide Level 29 meq/L 21-32 Normal (applies to non-num romeo results) MEDENT ([facility] Anion Gap 7 meq/L 8-16 Below low normal MEDENT ( [facility] Chloride Level 106 meq/L 98-107 Normal (applies to non-numeric r esults) [facility] ([facility] Calcium Level 8.4 mg/dL 8.8-10.2 Below low normal MEDEN T ([facility] ID Date Data Source [id number] 09/16/2019 02:38:00 PM EDT MEDENT ([facility] Name Value Range Interpretation Code Description Data Pennie rce(s) Supporting Document(s) Lipoprotein lipase [Enzymatic activity/volume] in Serum or P lasma 124 U/L 73-393 Normal (applies to non-numeric results) [facility] ([facility] ID Date Data Source [id number] 09/16/2019 02:38:00 PM EDT MEDENT ([facility] Name Value Range Interpretation Code Description Data Pennie rce(s) Supporting Document(s) Respiratory Panel Laboratory test result MEDENT ([facility] This respiratory PCR panel detects [...] 1: HUMAN RHINOVIRUS/ENTEROVIRUS ID Date Data Source [id number] 09/03/2019 10:07:00 AM EDT DAWNA ([facility]) Name Value Range Interpretation Code Description Data Pennie rce(s) Supporting Document(s) Erythrocytes [#/volume] in Blood by Automated count 3.72 x10E6/uL 4.1 4-5.80 DAWNA ([facility]) CHRONIC KIDNEY DISEASE STAGING PER [...] 9.5 x10E3/uL 3.4-10 .8 DAWNA ([facility]) CHRONIC KIDNEY DISEASE STAGING PER [...] 32.8 % 3 7.5-51.0 MEDENT ([facility]) CHRONIC KIDNEY DISEASE STAGING PER [...] Blood 10.8 g/dL 13.0-17.7 MED[facility] ([facility]) CHRONIC KIDNEY DISEASE STAGING PER [...] 88 fL 79-97 [facility] ([facility]) CHRONIC KIDNEY DISEASE STAGING PER NKF: [...] by Automated count 29.0 pg 26.6-33.0 MEDENT ([facility]) CHRONIC KIDNEY DISEASE STAGING PER NKF: [...] g/dL 31.5-35.7 MED[facility] ([facility]) CHRONIC KIDNEY DISEASE STAGING PER NKF: [...] count 17.7 % 11.6-15.4 MED[facility] ([facility]) CHRONIC KIDNEY DISEASE STAGING PER [...] count 191 x10E3/uL 150-450 MED[facility] ([facility]) CHRONIC KIDNEY DISEASE STAGING PER [...] Normal Neutrophils 73 % [facility] ([facility]) CHRONIC KIDNEY DISEASE STAGING PER [...] 10 % MEDENT ([facility]) CHRONIC KIDNEY DISEASE STAGING PER NKF: [...] count 0 % [facility] ([facility]) CHRONIC KIDNEY DISEASE STAGING PER NKF: [...] Automated count 12 % [facility] ([facility]) CHRONIC KIDNEY DISEASE STAGING PER [...] 6.9 x10E3/uL 1.4-7 .0 [facility] ([facility]) CHRONIC KIDNEY DISEASE STAGING PER [...] count 0 % [facility] ([facility]) CHRONIC KIDNEY DISEASE STAGING PER NKF: [...] cells [#/volume] in Blood [facility] CHRONIC KIDNEY DISEASE STAGING PER [...] Lymphocytes [#/volume] in Blood 0.9 x10E3/uL 0.7-3.1 [facility] CHRONIC KIDNEY DISEASE STAGING PER [...] 0.0 x10E3/uL 0.0-0 .4 MED[facility] ([facility]) CHRONIC KIDNEY DISEASE STAGING PER [...] Blood 1.2 x10E3/uL 0.1-0.9 MED[facility] ([facility]) CHRONIC KIDNEY DISEASE STAGING PER [...] 0.0 x10E3/uL 0.0-0.2 [facility] ([facility]) CHRONIC KIDNEY DISEASE STAGING PER NKF: [...] count 0.4 x10E3/uL 0.0-0.1 MED[facility] ([facility]) CHRONIC KIDNEY DISEASE STAGING PER [...] Automated count 5 % MED[facility] ([facility]) CHRONIC KIDNEY DISEASE STAGING PER [...] count Laboratory test result MEDENT ([facility]) CHRONIC KIDNEY DISEASE STAGING PER [...] Narrative Laboratory test result MED[facility] ([facility]) CHRONIC KIDNEY DISEASE STAGING PER [...] >32 mL/min Normal ID Date Data Source [id number] 09/03/2019 10:07:00 AM YARIEL TONEY ([facility]) Name Value Range Interpretation Code Description Data Pennie rce(s) Supporting Document(s) BUN 23 mg/dL 8-23 MEDZAFAR ([facility]) CHRONIC KIDNEY DISEASE STAGING PER NKF: [...] mg/dL 70-110 MEDENT ([facility]) CHRONIC KIDNEY DISEASE STAGING PER NKF: [...] or Plasma 15.5 Calc MEDENT ([facility]) CHRONIC KIDNEY DISEASE STAGING PER [...] mg/dL 0.7-1.2 MED[facility] ([facility]) CHRONIC KIDNEY DISEASE STAGING PER NKF: [...] 4.2 mmol/L 3.5-5.1 MED[facility] ([facility]) CHRONIC KIDNEY DISEASE STAGING PER NKF: [...] Na 142 mmol/L 136-145 MED[facility] ([facility]) CHRONIC KIDNEY DISEASE STAGING PER [...] 102.8 mmol/L 98.0-107.0 MEDENT ([facility]) CHRONIC KIDNEY DISEASE STAGING PER [...] mg/dL 8.6-10.2 MED[facility] ([facility]) CHRONIC KIDNEY DISEASE STAGING PER NKF: [...] g/dL 6.6-8.7 MED[facility] ([facility]) CHRONIC KIDNEY DISEASE STAGING PER NKF: [...] Co2 27.4 mmol/L 22.0-29.0 MED[facility] ([facility]) CHRONIC KIDNEY DISEASE STAGING PER [...] 2.2 Calc MEDENT ([facility]) CHRONIC KIDNEY DISEASE STAGING PER NKF: [...] g/dL 3.5-5.2 MED[facility] ([facility]) CHRONIC KIDNEY DISEASE STAGING PER NKF: [...] by calculation 1.7 Calc MEDENT ([facility]) CHRONIC KIDNEY DISEASE STAGING PER [...] U/L 40-129 MEDENT ([facility]) CHRONIC KIDNEY DISEASE STAGING PER NKF: [...] Serum or Plasma 13 U/L 0-40 MEDENT ([facility]) CHRONIC KIDNEY DISEASE STAGING PER NKF: [...] Plasma 7 U/L 0-41 MEDENT ([facility]) CHRONIC KIDNEY DISEASE STAGING PER [...] or Plasma 16 mmol/L MEDENT ([facility]) CHRONIC KIDNEY DISEASE STAGING PER [...] Tbili 0.44 mg/dL 0.0-1.2 MED[facility] ([facility]) CHRONIC KIDNEY DISEASE STAGING PER [...] Normal Osmolality-Calculated 291.8 Calc MEDENT ([facility]) CHRONIC KIDNEY DISEASE STAGING PER [...] 49 # MEDENT ( [facility]) CHRONIC KIDNEY DISEASE STAGING PER NKF: [...] and above >32 mL/min Normal eGFR Non-Afr. Citizen Of [place] 42 # MEDENT ([facility]) CHRONIC KIDNEY DISEASE STAGING PER [...] >32 mL/min Normal ID Date Data Source [id number] 09/03/2019 10:07:00 AM EDT MEDZAFAR ([facility] Name Value [...] by Automated count 29.0 pg 26.6-33.0 MEDENT ([facility] Erythrocyte mean corpuscular volume [Entitic volume] by Auto mated count 88 fL 79-97 [facility] ([facility] Erythrocyte mean corpuscular hemoglobin concentration [Mass/volume] by Automated count 32.9 g/dL 31.5-35.7 MED[facility] ([facility] Erythrocyte distribution width [Ratio] by Automated count 17.7 % 11.6-15.4 Above high normal [facility] ([facility] Platelets [#/volume] in Blood by Automated count 191 x10E3/uL 150-450 [facility] ([facility] Lymphs 10 % [facility] ([facility] Monocytes/100 leukocytes in Blood by Automated count 12 % MED[facility] ([facility] Neutrophils 73 % MEDENT ([facility] Eosinophils/100 leukocytes in [...] 0.4 x10E3/uL 0.0-0.1 Above high normal MEDENT ([facility] (An elevated percentage of Immature Gran ulocytes has not been found to be clinically significant as a sole clinical predictor of disease. Does NOT include bands or blast cells. associated physiological leukocytosis may also show increased immature granulocytes without clinical significance.) Immature granulocytes/100 leukocytes in Blood by Automated count 5 % MEDENT ([facility] Basophils [#/volume] in Blood by Automated count 0.0 x10E3/uL 0.0-0.2 MED[facility] ([facility] Nucleated erythrocytes/100 leukocytes [Ratio] in Blood by Automated count Laboratory test result MEDENT ([facility] Morphology [Interpretation] in Blood Narrative Laboratory test result MEDZAFAR ([facility] ID Date Data Source [id number] 09/03/2019 10:07:00 AM EDT MEDENT ([facility] Name Value Range Interpretation Code Description Data Pennie rce(s) Supporting Document(s) Glu 173 mg/dL 70-110 Above high normal MEDENT ([facility] CHRONIC KIDNEY DISEASE STAGING PER [...] mL/min Normal Na 142 mmol/L 136-145 [facility] CHRONIC KIDNEY DISEASE STAGING [...] mL/min Normal BUN/Creatinine Ratio 15.5 Calc MEDENT ([facility] CHRONIC KIDNEY DISEASE [...] mL/min Normal BUN 23 mg/dL 8-23 MED[facility] ([facility] CHRONIC KIDNEY DISEASE STAGING [...] >32 mL/min Normal CL 102.8 mmol/L 98.0-107.0 [facility] ([facility] CHRONIC KIDNEY DISEASE STAGING PER [...] Normal K 4.2 mmol/L 3.5-5.1 MEDENT ([facility] CHRONIC KIDNEY [...] mL/min Normal CA 9.0 mg/dL 8.6-10.2 MED[facility] ([facility] CHRONIC KIDNEY DISEASE STAGING [...] mL/min Normal Co2 27.4 mmol/L 22.0-29.0 MEDENT ([facility] CHRONIC KIDNEY DISEASE [...] >32 mL/min Normal Globulin 1.7 Calc [facility] ([facility] CHRONIC KIDNEY DISEASE STAGING [...] Normal Ast (Sgot) 13 U/L 0-40 MEDENT ([facility] CHRONIC KIDNEY [...] Normal Alt (SGPT) 7 U/L 0-41 MEDENT ([facility] CHRONIC KIDNEY [...] and above >32 mL/min Normal eGFR Non-Afr. Citizen Of [place] 42 # MEDZAFAR ([facility] [...] mL/min Normal eGFR 49 # DAWNA ( [facility] CHRONIC KIDNEY DISEASE STAGING PER [...] >32 mL/min Normal ID Date Data Source [id number] 08/16/2019 02:44:00 PM EDT DAWNA ([facility] Name Value Range Interpretation Code Description Data Pennie rce(s) Supporting Document(s) Leukocytes [#/volume] in Blood by Automated count 12.4 x10E3/uL 3.4-10.8 Above high normal DAWNA ([facility] ) Hematocrit [Volume [...] Auto mated count 87 fL 79-97 MEDENT ([facility] Erythrocyte mean corpuscular hemoglobin concentration [Mass/volume] by Automated count 33.6 g/dL 31.5-35.7 [facility] ([facility] Erythrocyte mean corpuscular hemoglobin [Entitic mass] by Automated count 29.4 pg 26.6-33.0 MEDENT ([facility] Lymphs 6 % MEDENT ([facility] Platelets [#/volume] in Blood by Automated count 189 x10E3/uL 150-450 [facility] ([facility] Erythrocyte distribution width [Ratio] by Automated count 17.7 % 11.6-15.4 Above high normal MED[facility] ([facility] ) Neutrophils 79 % MEDENT ([facility] Monocytes/100 leukocytes in [...] Automated count 0.1 x10E3/uL 0.0-0 .4 MEDENT ([facility] Basophils [#/volume] in Blood by Automated count 0.1 x10E3/uL 0.0-0.2 MED[facility] ([facility] Monocytes [#/volume] in Blood 1.4 x10E3/uL 0.1-0.9 Above high norm al MEDENT ([facility] Immature granulocytes/100 leukocytes in Blood by Automated count 2 % MEDENT ([facility] Immature granulocytes [#/volume] in Blood by Automated count 0.3 x10E3/uL 0.0-0.1 Above high normal MED[facility] ([facility] (An elevated percentage of Immature Gran ulocytes has not been found to be clinically significant as a sole clinical predictor of disease. Does NOT include bands or blast cells. associated physiological leukocytosis may also show increased immature granulocytes without clinical significance.) Nucleated erythrocytes/100 leukocytes [Ratio] in Blood by Automated count Laboratory test result MEDENT ([facility] Morphology [Interpretation] in Blood Narrative Laboratory test result [facility] ([facility] ID Date Data Source [id number] 08/16/2019 02:44:00 PM EDT MEDENT ([facility] Name Value Range Interpretation Code Description Data Pennie rce(s) Supporting Document(s) Glu 143 mg/dL 70-110 Above high normal MEDENT ([facility] CHRONIC KIDNEY DISEASE STAGING PER [...] mL/min Normal BUN/Creatinine Ratio 13.8 CALC MEDENT ([facility] CHRONIC KIDNEY DISEASE [...] 1.8 mg/dL 0.7-1.2 Above high normal MEDENT ([facility] CHRONIC KIDNEY [...] mL/min Normal K 3.7 mmol/L 3.5-5.1 [facility] ([facility] CHRONIC KIDNEY DISEASE STAGING [...] mL/min Normal Na 138 mmol/L 136-145 [facility] ([facility] CHRONIC KIDNEY [...] mL/min Normal CA 9.1 mg/dL 8.6-10.2 [facility] ([facility] CHRONIC KIDNEY DISEASE [...] mL/min Normal Alb 3.6 g/dL 3.5-5.2 [facility] ([facility] CHRONIC KIDNEY DISEASE STAGING [...] mL/min Normal A/G Ratio 1.8 CALC [facility] ([facility] CHRONIC KIDNEY DISEASE STAGING [...] >32 mL/min Normal Globulin 2.0 CALC [facility] ([facility] CHRONIC KIDNEY DISEASE [...] mL/min Normal Alp 44.9 U/L 40-129 [facility] ([facility] CHRONIC KIDNEY DISEASE [...] mL/min Normal Tbili 0.60 mg/dL 0.0-1.2 [facility] ([facility] CHRONIC KIDNEY DISEASE STAGING [...] Normal Ast (Sgot) 16 U/L 0-40 [facility] CHRONIC KIDNEY DISEASE STAGING [...] mL/min Normal Anion Gap 15 mmol/L [facility] ([facility] CHRONIC KIDNEY DISEASE [...] and above >32 mL/min Normal eGFR Non-Afr. Citizen Of [place] 34 # [facility] ([facility] [...] mL/min Normal eGFR 39 # [facility] ( [facility] CHRONIC KIDNEY [...] >32 mL/min Normal ID Date Data Source [id number] 08/08/2019 03:19:00 PM EDT [facility]) Name Value Range Interpretation Code Description Data Pennie rce(s) Supporting Document(s) Glucose 144 70-100 [facility] ([facility]) Sodium 144 136-145 [facility] ([facility]) Blood Urea Nitrogen 17 7-18 [facility] ([facility]) Creatinine 1.17 0.70-1.30 [facility] ([facility]) Potassium 4.2 3.5-5.1 [facility] ([facility]) Carbon Dioxide 36 21-32 [facility] ([facility]iol [facility]) Chloride 106 98-107 [facility] ([facility]) Calcium 8.3 8.8-10.2 [facility] ([facility]) Glomerular filtration rate/1.73 sq M.pre dicted [Volume Rate/Area] in Serum or Plasma by Creatinine-based formula (MDRD) Laboratory test result [facility] ([facility]) ID Date Data Source [id number] 08/08/2019 03:19:00 PM EDT [facility] ([facility]) Name Value Range Interpretation Code Description Data Pennie rce(s) Supporting Document(s) White Blood Count 9.6 4.0-10.0 [facility] ([facility]) Hemoglobin 11.8 [facility] ([facility]) Platelets 226 150-450 [facility] ([facility]) Red Blood Count 3.96 4.30-6.10 [facility] ([facility]io [facility]) Hematocrit 37.6 [facility] ([facility]) ID Date Data Source [id number] 07/16/2019 06:39:00 PM EDT [facility] ([facility] Name Value Range Interpretation Code Description Data Pennie rce(s) Supporting Document(s) Ferritin [Mass/volume] in Serum or Plasma 235 ng/mL 26-388 Normal (applies to non-numeric results) [facility] ([facility]) Lactate dehydrogenase [Enzymatic activity/volume] in Serum o r Plasma 172 U/L 87-241 Normal (applies to non-numeric results) [facility] ([facility] C reactive protein [Mass/volume] in Serum or Plasma by High sensitivity method 14.70 mg/dL 0.00-0.30 Above high normal [facility] ([facility] ID Date Data Source [id number] 07/16/2019 06:39:00 PM EDT [facility] ([facility] Name Value Range Interpretation Code Description Data Pennie rce(s) Supporting Document(s) MB/CK Relative Index 3.57 Normal (applies to non-num romeo results) [facility] <content>DIAGNOSIS CRITERIA</content>
<content>MMB ng/ml Relative Index (RI)</content>
<content>NON-AMI < or = 5 N/A</content>
<content>CHANEY ZONE > 5 < or = 4</content>
<content>AMI > 5 > 4</content>
<content></content> CK-MB Value Mass Laboratory test result Normal ( applies to non-numeric results) [facility] ) CPK Creatine Phosphokinase 28 U/L 39-308 Below low normal [facility] ([facility] Troponin I Laboratory test result Normal (applies to non-n umeric results) [facility] ([facility] <content>Troponin I Reference Interval f or Siemens [place] LOCI:</content>
<content></content>
<content>99th Percentile= 0.00-0.045 ng/ml</content>
<content></content>
<content>Risk Stratification:</content>
<content><= 0.10 ng/ml Decreased Risk for Adverse Clinical</content>
<content>Events.</content>
<content>0.10-1.50 ng/ml Increased Risk for Adverse Clinical</content>
<content>Events. Evaluation of additional</content>
<content>criterion and/or repeat testing in 2-6</content>
<content>hours is suggested to rule out myocardial</content>
<content>damage.</content>
<content>>= 1.50 ng/ml Indicative of Myocardial Injury.</content>
<content></content> ID Date Data Source [id number] 07/16/2019 06:39:00 PM EDT [facility] ([facility] Name Value Range Interpretation Code Description Data Pennie rce(s) Supporting Document(s) Glucose, Fasting 120 mg/dL 70-100 Above high normal M EDENT ([facility] Creatinine For GFR 1.76 mg/dL 0.70-1.30 Above high normal [facility] ([facility] Blood Urea Nitrogen 24 mg/dL 7-18 Above high normal [facility] ([facility] Potassium Serum 4.0 meq/L 3.5-5.1 Normal (applies to non-numeric results) [facility] ([facility] Sodium Level 141 meq/L 136-145 Normal (applies to non-numeric res ults) [facility] ([facility] Glomerular Filtration Rate 39.5 Normal (applies to n on-numeric results) [facility] ([facility] <content>Units are mL/min/1.73 m2</content>
<content></content>
<content>Chronic Kidney Disease Staging per NKF:</content>
<content></content>
<content>Stage I & II GFR >=60 Normal to Mildly Decreased</content>
<content>Stage III GFR 30- 59 Moderately Decreased</content>
<content>Stage IV GFR 15-29 Severely Decreased</content>
<content>Stage V GFR <15 Very Little GFR Left</content>
<content>ESRD GFR <15 on RO[employer]</content>
<content></content> Carbon Dioxide Level 35 meq/L 21-32 Above high normal [facility] ([facility] Chloride Level 102 meq/L 98-107 Normal (applies to non-numeric r esults) [facility] ([facility] Anion Gap 4 meq/L 8-16 Below low normal [facility] ( [facility] Alt/SGPT 16 U/L 12-78 Normal (applies to non-numeric resul ts) [facility] ([facility] Ast/Sgot 22 U/L 7-37 Normal (applies to non-numeric resul ts) [facility] ([facility] Calcium Level 8.6 mg/dL 8.8-10.2 Below low normal MEDEN T ([facility] Albumin 2.9 GM/DL 3.2-5.2 Below low normal [facility] ( [facility] Alkaline Phosphatase 38 U/L 45-117 Below low normal [facility] ([facility] Total Protein 5.7 GM/DL 6.4-8.2 Below low normal [facility] T ([facility] Bilirubin,Total 0.5 mg/dL 0.2-1.0 Normal (applies to non-numeric results) [facility] ([facility] Albumin/Globulin Ratio 1.04 1.00-1.93 Normal (applies to non-numeric results) [facility] ([facility] ID Date Data Source [id number] 07/16/2019 06:39:00 PM EDT [facility] ([facility] Name Value Range Interpretation Code Description Data Pennie rce(s) Supporting Document(s) Fibrin D-dimer FEU [Mass/volume] in Platelet poor plasma 325.56 ng/mL Normal (applies to non-numeric results) [facility] ([facility] Lactate [Mass/volume] in Serum or Plasma 0.8 mmol/L 0.4-2.0 Normal (applies to non-numeric results) [facility]) Y/N query for Sepsis Lactate Rule: Y ID Date Data Source [id number] 07/16/2019 06:39:00 PM EDT [facility] ([facility] Name Value Range Interpretation Code Description Data Pennie rce(s) Supporting Document(s) Prothrombin Time 16.4 s 11.8-14.0 Above high normal M EDENT ([facility] Inr 1.35 Normal (applies to non-numeric resul ts) [facility] ([facility] THERAPUTIC HUMAN INR VALUES INDICATIONS NORMAL RANGES PROPHYLAXIS/TREATMENT OF: VENOUS THROMBOSIS 2.0-3.0 PULMONARY EMBOLISM 2.0-3.0 PREVENTION OF SYSTEMIC EMBOLISM FROM: TISSUE HEART VALVES 2.0-3.0 ACUTE MYOCARDIAL INFARCTION 2.0-3.0 VALVULAR HEART DISEASE 2.0-3.0 ATRIAL FIBRILLATION 2.0-3.0 MECHANICAL VALVES(HIGH RISK) 2.5-3.5 RECURRENT MYOCARDIAL INFARCTION 2.5-3.5 Partial Thromboplastin Time 38.3 s 25.0-38.4 Norm al (applies to non-numeric results) [facility] ([facility] ) ID Date Data Source [id number] 07/16/2019 06:39:00 PM EDT [facility] ([facility] Name Value Range Interpretation Code Description Data Pennie rce(s) Supporting Document(s) Red Blood Count 3.56 10 4.30-6.10 Below low normal [facility] ([facility] White Blood Count 8.1 10 4.0-10.0 Normal (applies to non-numeri c results) [facility] ([facility] Hematocrit 32.4 % 42.0-52.0 Below low normal [facility] ( [facility] Hemoglobin 10.5 g/dL 13.5-17.5 Below low normal [facility] ( [facility] Mean Corpuscular Volume 91.0 fl 80.0-96.0 Normal ( applies to non-numeric results) [facility] ([facility] ) Mean Corpuscular HGB Conc 32.4 g/dL 32.0-36.5 Normal (applies to non-numeric results) [facility] ([facility] ) Mean Corpuscular Hemoglobin 29.5 pg 27.0-33.0 Norm al (applies to non-numeric results) [facility] ([facility] ) Red Cell Distribution Width 19.5 % 11.5-14.5 Above high normal [facility] ([facility] Platelet Count, Automated 161 10 150-450 Normal (applies to non-numeric results) [facility] ([facility] ) Neutrophils % 68.2 % 36.0-66.0 Above high normal MEDE NT ([facility] Lymph % 6.0 % 24.0-44.0 Below low normal [facility] ( [facility] Baso % 0.4 % 0.0-1.0 Normal (applies to non-numeric resul ts) [facility] ([facility] Eos % 0.1 % 0.0-3.0 Normal (applies to non-numeric resul ts) [facility] ([facility] Bandera % 23.4 % 0.0-5.0 Above high normal [facility] ([facility] Immature Granulocyte % 1.9 % 0-3.0 Normal (applies to non-n umeric results) [facility] ([facility] Nucleated Red Blood Cell % 0.0 % 0-0 Normal (applies to n on-numeric results) [facility] ([facility] Lymph # 0.5 10 1.5-5.0 Below low normal [facility] ( [facility] Neutrophils # 5.5 10 1.5-8.5 Normal (applies to non-numeric re sults) [facility] ([facility] Eos # 0.0 10 0.0-0.5 Normal (applies to non-numeric resul ts) [facility] ([facility] Bandera # 1.9 10 0.0-0.8 Above high normal [facility] ([facility] Baso # 0.0 10 0.0-0.2 Normal (applies to non-numeric resul ts) [facility] ([facility] ID Date Data Source [id number] 07/16/2019 06:39:00 PM EDT [facility] ([facility] Name Value Range Interpretation Code Description Data Pennie rce(s) Supporting Document(s) Laboratory test finding (navigational concept) Laboratory test r esult Abnormal (applies to non-numeric results) [facility] DISCLAIMER: Testing was performed using the [employer] SARS-CoV-2 test. This test was developed and its performance characteristics determined by [employer]. This test has not been FDA cleared [...] or revoked sooner. ID Date Data Source [id number] 06/02/2019 09:52:00 AM EST [facility] Name Value Range Interpretation Code Description Data Pennie rce(s) Supporting Document(s) Magnesium Level 1.57 [facility] ([facility]) ID Date Data Source [id number] 06/02/2019 09:52:00 AM EST [facility] (Cardi [facility]) Name Value Range Interpretation Code Description Data Pennie rce(s) Supporting Document(s) White Blood Count 11.5 5.0-10.0 [facility] ([facility]) Red Blood Count 3.78 4.70-6.10 [facility] ([facility]io [facility]) Platelets 207 172-450 [facility] ([facility] of Y) Hematocrit 34.4 42.0-52.0 [facility] ([facility]) Hemoglobin 11.6 14.0-18.0 [facility] ([facility] [place]) ID Date Data Source [id number] 06/02/2019 09:52:00 AM EST [facility] ([facility]i [facility]y [facility]) Name Value Range Interpretation Code Description Data Pennie rce(s) Supporting Document(s) Glucose 152 70-100 [facility] ([facility]) Blood Urea Nitrogen 24.2 7-25 [facility] (Ca [facility]) Glomerular filtration rate/1.73 sq M.pre dicted [Volume Rate/Area] in Serum or Plasma by Creatinine-based formula (MDRD) 43 [facility] ([facility]) Creatinine 1.56 0.6-1.4 [facility] ([facility]) Chloride 99.5 98-110 [facility] ([facility] [place]) Potassium 3.87 3.5-5.3 [facility] ([facility]) Sodium 139.0 136-146 [facility] ([facility] [place]) Phosphorus 2.99 [facility] ([facility]) Carbon Dioxide 33.1 22-33 [facility] ([facility]iol [facility]gy [facility]) Calcium 8.98 8.4-10.4 [facility] ([facility]) Albumin 4.1 3.5-4.7 [facility] ([facility]) ID Date Data Source [id number] 05/26/2019 01:12:00 PM EST [facility] ([facility] Name Value Range Interpretation Code Description Data Pennie rce(s) Supporting Document(s) Leukocytes [#/volume] in Blood by Automated count 9.5 x10E3/uL 3.4-10 .8 [facility] ([facility] Erythrocytes [#/volume] in Blood by Automated count 3.55 x10E6/u L 4.14-5.80 Below low normal [facility] ([facility] ) Hemoglobin [Mass/volume] in Blood 10.4 g/dL 13.0-17.7 Below low nor mal [facility] ([facility] Hematocrit [Volume Fraction] of Blood by Automated count 32.5 % 37.5-51.0 Below low normal [facility] ([facility] Erythrocyte mean corpuscular volume [Entitic volume] by Auto mated count 92 fL 79-97 [facility] ([facility] Erythrocyte mean corpuscular hemoglobin concentration [Mass/volume] by Automated count 32.0 g/dL 31.5-35.7 [facility] ([facility] Erythrocyte distribution width [Ratio] by Automated count 18.9 % 11.6-15.4 Above high normal [facility] ([facility] ) Erythrocyte mean corpuscular hemoglobin [Entitic mass] by Automated count 29.3 pg 26.6-33.0 [facility] ([facility] Platelets [#/volume] in Blood by Automated count 172 x10E3/uL 150-450 [facility] ([facility] Lymphs 11 % [facility] ([facility] Neutrophils 79 % [facility] ([facility] Immature cells [#/volume] [...] Automated count 0.0 x10E3/uL 0.0-0 .4 [facility] ([facility] Basophils [#/volume] in Blood by Automated count 0.0 x10E3/uL 0.0-0.2 [facility] ([facility] Immature granulocytes/100 leukocytes in Blood by Automated count 5 % [facility] ([facility] Morphology [Interpretation] in Blood Narrative Laboratory test result [facility] ([facility] Immature granulocytes [#/volume] in Blood by Automated count 0.5 x10E3/uL 0.0-0.1 Above high normal [facility] ([facility] (An elevated percentage of Immature Gran ulocytes has not been found to be clinically significant as a sole clinical predictor of disease. Does NOT include bands or blast cells. associated physiological leukocytosis may also show increased immature granulocytes without clinical significance.) Nucleated erythrocytes/100 leukocytes [Ratio] in Blood by Automated count Laboratory test result [facility] ([facility] ID Date Data Source [id number] 05/26/2019 01:12:00 PM EST [facility] ([facility] Name Value Range Interpretation Code Description Data Pennie rce(s) Supporting Document(s) Glu 161 mg/dL 70-110 Above high normal [facility] ([facility] CLASSIFICATION CHOLESTEROL FO [...] 32 mg/dL 8-23 Above high normal [facility] ([facility] CLASSIFICATION CHOLESTEROL FO R [...] 1.7 mg/dL 0.7-1.2 Above high normal [facility] ([facility] CLASSIFICATION CHOLESTEROL FO [...] mL/min Normal BUN/Creatinine Ratio 18.5 Calc [facility] ([facility] CLASSIFICATION CHOLESTEROL FO [...] mL/min Normal CA 9.2 mg/dL 8.6-10.2 [facility] ([facility] CLASSIFICATION CHOLESTEROL FO R [...] Normal Alt (SGPT) 14 U/L 0-41 [facility] ([facility] CLASSIFICATION CHOLESTEROL FO R [...] and above >32 mL/min Normal eGFR Non-Afr. Citizen Of [place] 36 # [facility] ([facility] [...] >32 mL/min Normal ID Date Data Source [id number] 05/26/2019 01:12:00 PM EST [facility] ([facility] Name Value Range Interpretation Code Description Data Pennie rce(s) Supporting Document(s) Prostate specific Ag [Mass/volume] in Serum or Plasma 44 mg/dL 35-5 5 [facility] ([facility] CLASSIFICATION CHOLESTEROL FO [...] mL/min Normal Cho/HDL Ratio 4.3 CALC [facility] CLASSIFICATION CHOLESTEROL FO R [...] mL/min Normal LDL_C 107 Calc 75-129 [facility] ([facility] CLASSIFICATION CHOLESTEROL FO R [...] >32 mL/min Normal ID Date Data Source [id number] 05/14/2019 02:40:00 PM EST [facility] ([facility]) Name Value Range Interpretation Code Description Data Pennie rce(s) Supporting Document(s) Magnesium [Mass/volume] in Serum or Plasma 2.1 mg/dL 1.6-2.3 [facility] ([facility]) Laboratory test finding (navigational concept) Laboratory test result [facility] ([facility]) ID Date Data Source [id number] 05/14/2019 02:40:00 PM EST [facility] ([facility] Name Value Range Interpretation Code Description Data Pennie rce(s) Supporting Document(s) Glucose 107 mg/dL 65-99 [facility] ([facility]) Urea nitrogen [Mass/volume] in Serum or Plasma 29 mg/dL 8-27 [facility] ([facility]) eGFR If NonAfricn Am 37 mL/min/1.73 MEDE NT ([facility]) eGFR If Africn Am 43 mL/min/1.73 [facility] ([facility]) Creatinine 1.67 mg/dL 0.76-1.27 [facility] ([facility]) Urea nitrogen/Creatinine [Mass Ratio] in Serum or Plasma 17 1 0-24 [facility] ([facility]) Sodium 146 mmol/L 134-144 [facility] ([facility]) Carbon dioxide, total [Moles/volume] in Serum or Plasma 28 mmol/L 20 -29 [facility] ([facility]) Potassium [Moles/volume] in Serum or Plasma 4.4 mmol/L 3.5-5.2 [facility] ([facility]) Chloride [Moles/volume] in Serum or Plasma 102 mmol/L 96-106 [facility] ([facility]) Calcium [Mass/volume] in Serum or Plasma 8.8 mg/dL 8.6-10.2 [facility] ([facility]) ID Date Data Source [id number] 05/15/2019 08:06:00 AM EST [facility] Name Value [...] mg/dL 8.6-10.2 [facility] ID Date Data Source [id number] 05/15/2019 08:06:00 AM EST [facility] Name Value Range Interpretation Code Description Data Pennie rce(s) Supporting Document(s) Magnesium 2.1 mg/dL 1.6-2.3 [facility] ID Date Data Source [id number] 05/05/2019 02:11:02 PM EST [facility]PATIE NT INFORMATIONPatient MRN Name Date of Age Gend*PT [id number] Marcy Lee 1935 83 years M ---PT Location Admission Date/Time Visit ID Attending Provider --- --- --- --- EPI ID CSN Admitting Provider [id number] ---[facility] [id number], [address] (First Floor)[place], [place] [address]Cg.: Fax: Eatient: Marcy Lee : 1935Date: 05/05/19CARDIOLOGY OFFICE NOTEHISTORY [...] mg by mouth daily , Disp: ,Rfl: [place]-3 Fatty Acids (FISH OIL) 1200 MG CAPS, [...] He will continue to follow with his health science specialist in [facility]. I would be happy to see him in the future should his A. fib recurSignature: Jose Leslie MD, [facility], RSCardiac Electrophysiology and Arrhythmia ServiceDate: May 05, 2019Time: 2:09 PMThis document or parts of this document, were dictated using [employer]. A reasonable attempt at proofreading has been made to minimize errors.Please call with any questions or corrections. Name Value Range Interpretation Code Description Data [facility] Supporting Document(s) ID Date Data Source [id number] 04/26/2019 02:13:00 PM EST [facility] ([facility] Name Value Range Interpretation Code Description Data [facility] Supporting Document(s) Leukocytes [#/volume] in Blood [...] Auto mated count 85 fL 79-97 [facility] ([facility] Erythrocytes [#/volume] in Blood by Automated count 3.60 x10E6/u L 4.14-5.80 Below low normal [facility] ([facility] Erythrocyte distribution width [Ratio] by Automated count 18.1 % 11.6-15.4 Above high normal [facility] ([facility] Erythrocyte mean corpuscular hemoglobin concentration [Mass/volume] by Automated count 33.7 g/dL 31.5-35.7 [facility] ([facility] Erythrocyte mean corpuscular hemoglobin [Entitic mass] by Automated count 28.6 pg 26.6-33.0 [facility] ([facility] Neutrophils 82 % [facility] ([facility] ctice [facility] Platelets [#/volume] in Blood by Automated count 242 x10E3/uL 150-450 [facility] ([facility] Lymphs 4 % [facility] ([facility] Monocytes/100 leukocytes in Blood [...] by Automated count Laboratory test result MEDENT ([facility] Immature granulocytes/100 leukocytes in Blood by Autom ated count Laboratory test result MED[facility] ([facility] Basophils [#/volume] in Blood by Automated count 0.6 x10E3/uL 0.0-0.2 Above high normal MED[facility] ([facility] ) Nucleated erythrocytes/100 leukocytes [Ratio] in Blood by Automated count Laboratory test result MEDENT ([facility] Morphology [Interpretation] in Blood Narrative Laboratory test result MED[facility] ([facility] Manual differential was performed. ID Date Data Source [id number] 04/26/2019 02:13:00 PM EST MED[facility] ([facility] Name Value Range Interpretation Code Description Data Pennie rce(s) Supporting Document(s) Glu 105 mg/dL 70-110 [facility] ([facility] CHRONIC KIDNEY DISEASE [...] 1.9 mg/dL 0.7-1.2 Above high normal MEDENT ([facility] CHRONIC KIDNEY [...] mL/min Normal BUN/Creatinine Ratio 14.5 Calc MEDENT ([facility] CHRONIC KIDNEY DISEASE [...] mL/min Normal Na 140 mmol/L 136-145 [facility] ([facility] CHRONIC KIDNEY DISEASE STAGING [...] mL/min Normal CA 9.2 mg/dL 8.6-10.2 [facility] ([facility] CHRONIC KIDNEY DISEASE STAGING [...] mL/min Normal Anion Gap 14 mmol/L MEDENT ([facility] CHRONIC KIDNEY DISEASE STAGING [...] mL/min Normal eGFR 36 # DAWNA ( [facility] CHRONIC KIDNEY DISEASE STAGING PER [...] CL 101.1 mmol/L 98.0-107.0 DAWNA ([facility] CHRONIC KIDNEY DISEASE STAGING PER [...] and above >32 mL/min Normal eGFR Non-Afr. Citizen Of [place] 31 # DAWNA ([facility] CHRONIC KIDNEY [...] >32 mL/min Normal ID Date Data Source [id number] 04/05/2019 03:56:00 PM EST DAWNA ([facility]) Name Value Range Interpretation Code Description Data Pennie rce(s) Supporting Document(s) BUN 14 mg/dL 11-20 DAWNA ([facility]) CHRONIC KIDNEY DISEASE STAGING PER NKF: [...] HCT IS 5% LESS SOURCE FOR DATA: Splore 1800 OPERATION MANUAL( AUTOMATED BLOOD COUNTS AND DIFF.) APPENDIX B-3 Glu 153 mg/dL 70-110 [facility] ([facility]) CHRONIC KIDNEY DISEASE STAGING PER NKF: [...] HCT IS 5% LESS SOURCE FOR DATA: Splore 1800 OPERATION MANUAL( AUTOMATED BLOOD COUNTS AND DIFF.) APPENDIX B-3 Urea nitrogen/Creatinine [Mass Ratio] in Serum or Plasma 7.8 CALC MED[facility] ([facility]) CHRONIC KIDNEY DISEASE STAGING PER NKF: [...] HCT IS 5% LESS SOURCE FOR DATA: [employer] DYN 1800 OPERATION MANUAL( AUTOMATED BLOOD COUNTS AND DIFF.) APPENDIX B-3 Creat 1.8 mg/dL 0.7-1.2 [facility] ([facility]) CHRONIC KIDNEY DISEASE STAGING PER NKF: [...] 29.5 mmol/L 22.0-29.0 [facility] ([facility]) CHRONIC KIDNEY DISEASE STAGING PER NKF: [...] 140 mmol/L 136-145 [facility] ([facility]) CHRONIC KIDNEY DISEASE STAGING PER NKF: [...] Plasma 16 mmol/L [facility] ([facility]) CHRONIC KIDNEY DISEASE STAGING PER NKF: [...] K 4.9 mmol/L 3.5-5.1 [facility] ([facility]) CHRONIC KIDNEY DISEASE STAGING PER [...] mmol/L 98.0-107.0 [facility] ([facility]) CHRONIC KIDNEY DISEASE STAGING PER NKF: [...] HCT IS 5% LESS SOURCE FOR DATA: Splore 1800 OPERATION MANUAL( AUTOMATED BLOOD COUNTS AND DIFF.) APPENDIX B-3 eGFR 39 # MED[facility] ( [facility]) CHRONIC KIDNEY DISEASE STAGING PER NKF: [...] HCT IS 5% LESS SOURCE FOR DATA: Splore 1800 OPERATION MANUAL( AUTOMATED BLOOD COUNTS AND DIFF.) APPENDIX B-3 eGFR Non-Afr. Citizen Of [place] 34 # MED[facility] ([facility]) CHRONIC KIDNEY DISEASE STAGING PER [...] HCT IS 5% LESS SOURCE FOR DATA: Splore 1800 OPERATION MANUAL( AUTOMATED BLOOD COUNTS AND DIFF.) APPENDIX B-3 RBC 3.50 10E6/uL 4.20-6.30 [facility] ([facility]) CHRONIC KIDNEY DISEASE STAGING PER NKF: [...] HCT IS 5% LESS SOURCE FOR DATA: Splore 1800 OPERATION MANUAL( AUTOMATED BLOOD COUNTS AND DIFF.) APPENDIX B-3 WBC 10.6 10E3/uL 4.1-10.9 [facility]) CHRONIC KIDNEY DISEASE STAGING PER NKF: [...] DIFF.) APPENDIX B-3 MCV 90.0 fL 80.0-97.0 [facility]) CHRONIC KIDNEY DISEASE STAGING PER NKF: [...] IS 5% LESS SOURCE FOR DATA: TEDDY Mimoona 1800 OPERATION MANUAL( AUTOMATED BLOOD COUNTS AND DIFF.) APPENDIX B-3 MCHC 32.4 g/dL 31.0-36.0 [facility] ([facility]) CHRONIC KIDNEY DISEASE STAGING PER NKF: [...] HCT IS 5% LESS SOURCE FOR DATA: Splore 1800 OPERATION MANUAL( AUTOMATED BLOOD COUNTS AND DIFF.) APPENDIX B-3 PLT 155 10E3/uL 140-440 [facility] ([facility]) CHRONIC KIDNEY DISEASE STAGING PER NKF: [...] HCT IS 5% LESS SOURCE FOR DATA: Splore 1800 OPERATION MANUAL( AUTOMATED BLOOD COUNTS AND DIFF.) APPENDIX B-3 RDW-CV 19.1 % 11.5-14.5 [facility] ([facility]) CHRONIC KIDNEY DISEASE STAGING PER NKF: [...] HCT IS 5% LESS SOURCE FOR DATA: Splore 1800 OPERATION MANUAL( AUTOMATED BLOOD COUNTS AND DIFF.) APPENDIX B-3 Lym% Laboratory test result 10.0-58.5 Abnormal (applies to non-numeric results) [facility] ([facility]) CHRONIC KIDNEY DISEASE STAGING PER NKF: [...] HCT IS 5% LESS SOURCE FOR DATA: C[employer]mos DYN 1800 OPERATION MANUAL( AUTOMATED BLOOD COUNTS AND DIFF.) APPENDIX B-3 Neut% Laboratory test result 37.0-92.0 Abnormal (applies to non-numeric results) [facility] ([facility]) CHRONIC KIDNEY DISEASE STAGING PER NKF: [...] HCT IS 5% LESS SOURCE FOR DATA: [employer] DYN 1800 OPERATION MANUAL( AUTOMATED BLOOD COUNTS AND DIFF.) APPENDIX B-3 MXD% Laboratory test result 0.1-24.0 Abnormal (applies to non-numeric results) [facility] ([facility]) CHRONIC KIDNEY DISEASE STAGING PER NKF: [...] HCT IS 5% LESS SOURCE FOR DATA: [employer] DYN 1800 OPERATION MANUAL( AUTOMATED BLOOD COUNTS AND DIFF.) APPENDIX B-3 Lym# Laboratory test result 0.6-4.1 Abnormal (applies to non -numeric results) [facility] ([facility]) CHRONIC KIDNEY DISEASE STAGING PER NKF: [...] HCT IS 5% LESS SOURCE FOR DATA: Splore 1800 OPERATION MANUAL( AUTOMATED BLOOD COUNTS AND DIFF.) APPENDIX B-3 Neutrophils [#/volume] in Semen by Manual count Laboratory test result 2.0-7.8 Abnormal (applies to non-numeric results) [facility] ([facility]) CHRONIC KIDNEY DISEASE STAGING PER [...] Comment Laboratory test result DAWNA ([facility]) CHRONIC KIDNEY DISEASE STAGING PER [...] HCT IS 5% LESS SOURCE FOR DATA: Splore 1800 OPERATION MANUAL( AUTOMATED BLOOD COUNTS AND DIFF.) APPENDIX B-3 MXD# Laboratory test result 0.0-1.8 Abnormal (applies to non -numeric results) [facility] ([facility]) CHRONIC KIDNEY DISEASE STAGING PER [...] HCT IS 5% LESS SOURCE FOR DATA: Splore 1800 OPERATION MANUAL( AUTOMATED BLOOD COUNTS AND DIFF.) APPENDIX B-3 Platelet mean volume [Entitic volume] in Blood by Tracie 10.5 f L 9.0-13.0 DAWNA ([facility]) CHRONIC KIDNEY DISEASE STAGING PER NKF: [...] HCT IS 5% LESS SOURCE FOR DATA: Splore 1800 OPERATION MANUAL( AUTOMATED BLOOD COUNTS AND DIFF.) APPENDIX B-3 ID Date Data Source [id number] 04/04/2019 09:23:00 AM EST [facility] ([facility]i [facility]) Name Value Range Interpretation Code Description Data Pennie rce(s) Supporting Document(s) Magnesium Level 1.9 1.8-2.4 [facility] ([facility]io [facility]) ID Date Data Source [id number] 04/04/2019 09:23:00 AM EST [facility] ([facility]) Name Value Range Interpretation Code Description Data Pennie rce(s) Supporting Document(s) Glucose 112 70-100 [facility] ([facility]) Blood Urea Nitrogen 10 7-18 [facility] (Ca [facility]di[facility]) Sodium 144 136-145 [facility] ([facility]) Creatinine 1.76 0.70-1.30 [facility] ([facility]) Potassium 4.0 3.5-5.1 [facility] ([facility]) Chloride 109 98-107 [facility] ([facility]) Calcium 7.9 8.8-10.2 [facility] ([facility]) Glomerular filtration rate/1.73 sq M.pre dicted [Volume Rate/Area] in Serum or Plasma by Creatinine-based formula (MDRD) 39.5 [facility] ([facility]) Carbon Dioxide 29 21-32 [facility] ([facility]iol [facility]gy [facility]) ID Date Data Source [id number] 04/04/2019 09:23:00 AM EST [facility] ([facility]) Name Value Range Interpretation Code Description Data Pennie rce(s) Supporting Document(s) White Blood Count 6.2 4.0-10.0 [facility] ([facility]) Platelets 102 150-450 [facility] ([facility]) Red Blood Count 3.07 4.30-6.10 [facility] ([facility]io [facility]) Hematocrit 28.2 [facility] ([facility]) Hemoglobin 8.6 [facility] ([facility]) ID Date Data Source [id number] 04/01/2019 09:45:00 AM EST [facility] ([facility]) Name Value Range Interpretation Code Description Data Pennie rce(s) Supporting Document(s) Magnesium Level 1.6 1.8-2.4 [facility] ([facility]) ID Date Data Source [id number] 04/01/2019 09:45:00 AM EST [facility] ([facility]) Name Value Range Interpretation Code Description Data Pennie rce(s) Supporting Document(s) Glucose 90 83-110 [facility] ([facility]) Blood Urea Nitrogen 11 7-18 [facility] ([facility]) Creatinine 1.40 0.6-1.0 [facility] ([facility]) Sodium 146 136-145 [facility] ([facility] [place] Potassium 3.7 3.5-5.1 [facility] ([facility] [place]) Chloride 113 98-107 [facility] ([facility]) Calcium 7.0 8.8-10.2 [facility] ([facility] [place]) Carbon Dioxide 27 21-32 [facility] ([facility]) Glomerular filtration rate/1.73 sq M.pre dicted [Volume Rate/Area] in Serum or Plasma by Creatinine-based formula (MDRD) 51.4 [facility] ([facility]) ID Date Data Source [id number] 03/31/2019 09:44:00 AM EST [facility] ([facility]) Name Value Range Interpretation Code Description Data Pennie rce(s) Supporting Document(s) Troponin Laboratory test result [facility] ([facility]) Thyroid Stimulating Hormone 1.850 ME DENT ([facility]) Lipoprotein lipase [Enzymatic activity/volume] in Serum or Plasma 195 [facility] ([facility]) ID Date Data Source [id number] 03/31/2019 09:44:00 AM EST [facility] ([facility]) Name Value Range Interpretation Code Description Data Pennie rce(s) Supporting Document(s) Creatine kinase [Enzymatic activity/volume] in Serum or Plasma 16 [facility] ([facility]) CPK-MB Laboratory test result [facility] ([facility]) ID Date Data Source [id number] 03/31/2019 09:34:00 AM EST [facility] ([facility]) Name Value Range Interpretation Code Description Data Pennie rce(s) Supporting Document(s) Troponin Laboratory test result [facility] ([facility]) ID Date Data Source [id number] 03/31/2019 09:34:00 AM EST [facility] ([facility]) Name Value Range Interpretation Code Description Data Pennie rce(s) Supporting Document(s) Creatine kinase [Enzymatic activity/volume] in Serum or Plasma 15 [facility] ([facility]) CPK-MB Laboratory test result [facility] ([facility]) Procedure Social History Code Duration Value Status Description Data Source(s ) Smoking 12/13/2019 12:00:00 AM EDT Patient is a former smoker completed Patient is a former smoker [facility]) Vital Signs ID Date Data Source [id number] Name Value Range Interpretation Code Description Data Source(s) Body surface area Derived from formula 1.80 m2 1.80 m2 [facility] ([facility]) Body weight 66.906 kg 66.906 kg [facility] ([facility]) [place] body weight 154 [lb_av] 154 [lb_av] MEDEN T ([facility]) Body mass index (BMI) [Ratio] 22.4 kg/m2 22.4 k g/m2 [facility] ([facility]) Body weight 147.50 [lb_av] 147.50 [lb_av] MEDEN T ([facility], ) Body height 68 [in_i] 68 [in_i] MEDENT ([facility]) 5'8" Diastolic blood pressure 70 mm[Hg] 70 mm[Hg] MED[facility] ([facility]) Systolic blood pressure 128 mm[Hg] 128 mm[Hg] M EDENT ([facility]) Oxygen saturation in Arterial blood by Pulse oximetry 94 % 94 % [facility] ([facility] Body mass index (BMI) [Ratio] 24.0 kg/m2 24.0 k g/m2 [facility] ([facility] [place] body weight 148 [lb_av] 148 [lb_av] MEDEN T ([facility] Body weight 153.00 [lb_av] 153.00 [lb_av] MEDEN T ([facility] Body height 67 [in_i] 67 [in_i] MEDENT ([facility] 5'7" Respiratory rate 14 /min 14 /min MED[facility] ( [facility] Heart rate 70 /min 70 /min [facility] ([facility] Body temperature 98.4 [degF] 98.4 [degF] [facility] ([facility] Diastolic blood pressure 70 mm[Hg] 70 mm[Hg] [facility] ([facility] Systolic blood pressure 116 mm[Hg] 116 mm[Hg] M EDENT ([facility] [place] body weight 148 [lb_av] 148 [lb_av] MEDEN T ([facility], ) Body mass index (BMI) [Ratio] 22.7 kg/m2 22.7 k g/m2 MED[facility] ([facility]) Body weight 145.00 [lb_av] 145.00 [lb_av] MEDEN T ([facility]) Body height 67 [in_i] 67 [in_i] MED[facility] ([facility]) 5'7" Respiratory rate 12 /min 12 /min MED[facility] ( [facility]) [place] body weight 148 [lb_av] 148 [lb_av] MEDEN T ([facility], ) Body mass index (BMI) [Ratio] 21.3 kg/m2 21.3 k g/m2 [facility] ([facility], ) Body weight 136.00 [lb_av] 136.00 [lb_av] MEDEN T ([facility]) Body height 67 [in_i] 67 [in_i] MEDENT ([facility], ) 5'7" Respiratory rate 12 /min 12 /min MED[facility] ( [facility], ) Oxygen saturation in Arterial blood by Pulse oximetry 94 % 94 % [facility] ([facility] Body mass index (BMI) [Ratio] 21.3 kg/m2 21.3 k g/m2 [facility] ([facility] [place] body weight 148 [lb_av] 148 [lb_av] MEDEN T ([facility] Body weight 136.00 [lb_av] 136.00 [lb_av] MEDEN T ([facility] Body height 67 [in_i] 67 [in_i] [facility] ([facility] 5'7" Respiratory [...] Pulse oximetry 94 % 94 % MED[facility] ([facility], ) Body mass index (BMI) [Ratio] 21.3 kg/m2 21.3 k g/m2 [facility] ([facility], ) Body weight 136.00 [lb_av] 136.00 [lb_av] MEDEN T ([facility], ) Body height 67 [in_i] 67 [in_i] MED[facility] ([facility], ) Respiratory rate 12 /min 12 /min [facility] ( [facility]) Body temperature 97.5 [degF] 97.5 [degF] MED[facility] ([facility]) Heart rate 70 /min 70 /min [facility] ([facility]) Diastolic blood pressure 64 mm[Hg] 64 mm[Hg] MED[facility] ([facility]) Systolic blood pressure 118 mm[Hg] 118 mm[Hg] EDENT ([facility]) Body mass index (BMI) [Ratio] 20.3 [...] kg/m2 21.3 k g/m2 [facility] ([facility]) Body height 67 [in_i] 67 [in_i] [facility] ([facility]) 5'7" Body weight 136.00 [lb_av] 136.00 [lb_av] MEDEN T ([facility]) Diastolic blood pressure 64 mm[Hg] 64 mm[Hg] [facility] ([facility]) sitting, regular cuff Systolic blood pressure 128 mm[Hg] 128 mm[Hg] EDENT ([facility]) sitting, regular cuff Respiratory rate 16 /min 16 /min [facility] ( [facility]) Heart rate 68 /min 68 /min [facility] ([facility]) Regular Oxygen saturation in Arterial blood [...] Body height 67 [in_i] 67 [in_i] MED[facility] ([facility] 5'7" Respiratory [...] [Ratio] 20.2 kg/m2 20.2 k g/m2 [facility] ([facility] Body weight 129.00 [lb_av] 129.00 [lb_av] MEDEN T ([facility] Body height 67 [in_i] 67 [in_i] MED[facility] ([facility] 5'7" Respiratory rate 12 /min 12 /min MED[facility] ( [facility] Heart rate 68 /min 68 /min [facility] ([facility] Body temperature 99.2 [degF] 99.2 [degF] MED[facility] ([facility] Diastolic blood pressure 62 mm[Hg] 62 mm[Hg] [facility] ([facility]) sitting Systolic blood pressure 126 mm[Hg] 126 mm[Hg] M EDENT ([facility]) sitting Diastolic blood pressure 62 mm[Hg] 62 mm[Hg] MED[facility] ([facility]) sitting, regular cuff Systolic blood pressure 130 mm[Hg] 130 mm[Hg] M EDENT ([facility]) sitting, regular cuff Respiratory rate 16 /min 16 /min [facility] ( [facility]) Body mass index (BMI) [Ratio] 21.0 kg/m2 21.0 k g/m2 [facility] ([facility]) Body height 67 [in_i] 67 [in_i] MEDENT ([facility]) 5'7" Body weight 134.00 [lb_av] 134.00 [lb_av] MEDEN T ([facility]) Diastolic blood pressure 64 mm[Hg] 64 mm[Hg] MED[facility] ([facility]) sitting, regular cuff Systolic blood pressure 126 mm[Hg] 126 mm[Hg] M EDENT ([facility]) sitting, regular cuff Respiratory rate 16 /min 16 /min [facility] ( [facility]) Heart rate 72 /min 72 /min [facility] ([facility]) Regular Body mass index (BMI) [Ratio] 22.1 kg/m2 22.1 k g/m2 [facility] ([facility]) Body height 67 [in_i] 67 [in_i] [facility] 5'7" Body weight 141.00 [lb_av] 141.00 [lb_av] MEDEN T ([facility]) Diastolic blood pressure 68 mm[Hg] 68 mm[Hg] MED[facility] ([facility]) sitting, regular cuff Systolic blood pressure 110 mm[Hg] 110 mm[Hg] M EDENT ([facility]) sitting, regular cuff Respiratory rate 18 /min 18 /min [facility] ( [facility]) Heart rate 72 /min 72 /min [facility] ([facility]) Regular Body mass index (BMI) [Ratio] 22.2 kg/m2 22.2 k g/m2 [facility] ([facility]) Body height 67 [in_i] 67 [in_i] MEDENT ([facility]) 5'7" Body weight 142.00 [lb_av] 142.00 [lb_av] MEDEN T ([facility]) Diastolic blood pressure 56 mm[Hg] 56 mm[Hg] [facility] ([facility]) Sitting, regular cuff Systolic blood pressure 108 mm[Hg] 108 mm[Hg] M EDENT ([facility]) Sitting, regular cuff Respiratory rate 16 /min 16 /min [facility] ( [facility]) Heart rate 76 /min 76 /min [facility] ([facility]) Regular Body mass index (BMI) [Ratio] 22.1 kg/m2 22.1 k g/m2 [facility] ([facility]) Body height 67 [in_i] 67 [in_i] MED[facility] ([facility]) 5'7" Body weight 141.00 [lb_av] 141.00 [lb_av] MEDEN T ([facility]) Diastolic blood pressure 62 mm[Hg] 62 mm[Hg] [facility] ([facility]) Sitting, regular cuff Systolic blood pressure 108 mm[Hg] 108 mm[Hg] M EDENT ([facility]) Sitting, regular cuff Respiratory rate 16 /min 16 /min [facility] ( [facility]) Heart rate 72 /min 72 /min [facility] ([facility]) Regular Body mass index (BMI) [Ratio] 21.9 kg/m2 21.9 k g/m2 DAWNA ([facility]) Body height 67 [in_i] 67 [in_i] DAWNA ([facility]i [facility]) 5'7" Body weight 140.00 [lb_av] 140.00 [lb_av] MESFIN Roman ([facility])
[2020-05-21] MEDS ORDERED: LEVALBUTEROL HFA 45MCG/ACT 15 GM INHALER INH PRN (18:15)
--- NOTE | 2020-05-21 19:26 | HPEPDOC ---
[facility] Medical History & Physical Date of Admission May 21, 2020 Date of Service: May 21, 2020 History and Physical CHIEF COMPLAINT: "It hurts when I walk." HISTORY OF PRESENT ILLNESS: 84 y/o M DNR/DNI with PMH significant for chronic afib, CKD3, COPD, chronic hypoxic respiratory failure on home oxygen, peripheral arterial disease s/p Angioplasty left common iliac artery, external iliac artery with 7 x 100 [place] balloon,. Angioplasty right common iliac artery, external iliac artery, common femoral artery with 7 x 100 [place] balloon, Angioplasty right superficial femoral artery and proximal popliteal artery with 5 x 206 x 200 [place] balloons, Angioplasty right anterior tibial artery and posterior tibial artery with 2 x 220 Sotero balloon on 05/19/20 admitted for pain control and discharged 05/20/20 after passing home safety evaluation. Vascular surgery was to see the patient for revascularization of the left LE as outpt. He was discharged on ASA and eliquis after pain was controlled, and he was functionally stable for discharge home. Pt returns to the ER with recurrent claudication without relief with his prn pain meds at home. Despite neurontin 100mg tid, he continues ot have burning pain in his heels especially when they touch the bed or the blanket lays heavily on his feet. On his way home yesterday, he had nausea with nonbilious nonprojectile vomiting with mostly mucus and epigastric discomfort w/o fever or chills. previous egd by dr muir showed hiatal hernia with pathology showing chronic inflammation of gastric mucosa. Since ASA, eliquis , and with his chronic prednisone, pt noticed epigastric pain w/o coffee ground emesis, hematemesis, or black tarry stools. Pt is readmitted for intractable claudication and c/o nause and abdominal pain without bloody diarrhea, weight loss, and compliant with his eliquis and asa. CT abd/pelvis without acute intraabdoominal pathoogy. PAST MEDICAL HISTORY: peripheral arterial disease Chronic kidney disease, stage III. Bilateral renal cysts. Restless legs. Hematuria. 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 Watchman procedure. chronic Atrial fibrillation with cardiac ablation. Hypertension. Reflux. EGD-dr muir-small hiatal hernia. path-chronic inflammation of gastric mucosa Colonoscopy-dr. granados-diverticulosis, polyp Hyperlipidemia. Chronic hypoxic respiratory failure, on two liters of oxygen Chronic obstructive pulmonary disease (COPD). COVID-19 positive June 2019 with pneumonia. colonization w cdiff pneumonia metabolic encephalopathy dementia PAST SURGICAL HISTORY: Permanent pacemaker 2003, in 2011 ablation, December 2018 Watchman procedure. 05/19/20 1. Ultrasound-guided access left common femoral artery 2. Aortoiliofemoral arteriogram 3. Selection right common femoral and superficial femoral artery with right l ower extremity runoff 4. Selection left distal posterior tibial artery with runoff 5. Angioplasty left common iliac artery, external iliac artery with 7 x 100 [place] balloon 6. Angioplasty right common iliac artery, external iliac artery, common femoral artery with 7 x 100 [place] balloon 7. Angioplasty right superficial femoral artery and proximal popliteal artery with 5 x 206 x 200 [place] balloons 8. Angioplasty right anterior tibial artery and posterior tibial artery with 2 x 220 Sotero balloon 9. Completion arteriograms 10. Mynx closure left common femoral artery ALLERGIES: To FLUCONAZOLE, FLUTICASONE, METFORMIN, PETROLATUM, AZITHROMYCIN, CLARITHROMYCIN, and PROCAINE. 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 Patient lives with another daughter. She is currently comfort measures only. Patient currently is DO NOT RESUSCITATE, DO NOT INTUBATE. Medical Orders for Life-Sustaining Treatment (MOLST) form was done by Dr. Christine Taylor in March 2019. Signed form has been scanned to electronic medical record. Patient previously smoked. Has a history of COPD. Currently, not actively smoking. No recreational drug use. No alcohol use. FAMILY HISTORY: Father with CAD, myocardial infarction ([place]). REVIEW OF SYSTEMS: Per history of the present illness; 12-point system otherwise negative. PHYSICAL EXAMINATION: vitals: see below Generally, patient is awake, alert, oriented times three, answering questions appropriately. no use of respiratory accessory muscles no pallor cyanosis HEENT Moist mucous membranes. Tongue is midline. Pupils, round, reactive to light. No jugular venous distention (JVD), thyromegaly, or cervical lymphadenopathy. Lungs are clear to auscultation. No wheezing, rales, or rhonchi. Heart: S1, S2, irregularly irregular. Abdomen is soft, nontender, nondistended, nondistended. Positive bowel sounds. Extremities:no edema , cyanosis, or clubbing. LABORATORY DATA: SEE BELOW IMAGING STUDIES: 05/21/20 CTABD/PELVIS 1. Diverticulosis distal left colon sigmoid. No evidence of the colitis, diverticulitis, stricture or mass. Small bowel loops grossly unremarkable. No ascites, perforation or free air in the abdomen and pelvis. 2. Vascular calcifications aorta and branches without aneurysm or dissection. 3. Simple cysts in the liver, kidneys and no renal/ureteral/bladder calculus. No hydronephrosis. 4. No hiatal hernia. Stomach intact gallbladder moderately filled with layering hyperdense debris or gravel in its dependent portion. 5. Adrenal glands normal. Mild splenomegaly with a tiny splenic hemangioma anteriorly degenerative changes spine pelvis and hips without destructive lesion. <Electronically signed by Kwasi Shipley > 05/21/20 1612 ASSESSMENT AND PLAN: 84 y/o M DNR/DNI with PMH significant for chronic afib, CKD3, COPD, gastroparesis, chronic hypoxic respiratory failure on home oxygen, peripheral arterial disease s/p Angioplasty left common iliac artery, external iliac artery with 7 x 100 [place] balloon,. Angioplasty right common iliac artery, external iliac artery, common femoral artery with 7 x 100 [place] balloon, Angioplasty right superficial femoral artery and proximal popliteal artery with 5 x 206 x 200 [place] balloons, Angioplasty right anterior tibial artery and posterior tibial artery with 2 x 220 Sotero balloon on 05/19/20 admitted for pain control and discharged 05/20/20 after passing home safety evaluation. Vascular surgery was to see the patient for revascularization of the left LE as outpt. He was discharged on ASA and eliquis after pain was controlled, and he was functionally stable for discharge home. Pt returns to the ER with recurrent claudication without relief with his prn pain meds at home. Pt is readmitted for intractable claudication and c/o nause and abdominal pain without bloody diarrhea, weight loss, and compliant with his eliquis and asa. CT abd/pelvis without acute intraabdoominal pathoogy. Intractable b/l LE pain unable to ambulate due to peripheral arterial disease and chronic neuropathy admitted for pain control. PT/OT/ARU screen. acetaminophen 1gram po qid, prn oxycodone [id number] monitor for respiratory acidosis, sedation, ams due to h/o copd and risk of hypercapnic respiratory failure. prn narcan if rr<10,ams, or respiratory distress. postop mgt per vascular surgery. continue aspirin, eliquis. LLE to be revascularized in the future by vascular surgery.fall risk precautions and assisted ambulation, but activity as tolerated. nausea/abd pain most likely due to gastritis.. ct abd pelvis no acute intraabd pathology. no need for abx as there was no sign of colitis on ct abd. previous egd by dr muir showed hiatal hernia with pathology showing chronic inflammation of mucosa. previous colonoscopy by -diverticulosis and polyp. npo after midnight for ugiseraies in am. ppi, carafate.. Chronic atrial fibrillation, on anticoagulation. Currently rate controlled. He is resumed on his home medications. Chronic obstructive pulmonary disease, at baseline. Prednisone dependent on 2.5 mg and 5 mg daily and Xopenex. Restless legs syndrome. On Requip. BPH. On Flomax. Chronic neuropathy. increase Neurontin to 100 mg qid. Chronic atrial fibrillation. s/p watchman On amiodarone, atenolol, diltiazem, and apixaban. Chronic hypoxic respiratory failure, at baseline, 2 liters of oxygen at all times. Chronic kidney disease stage III. Currently at baseline creatinine. disposition: 2-3days until pain is controlled. Vital Signs Vital Signs Date Time Temp Pulse Resp B/P (MAP) Pulse Ox O2 Delivery O2 Flow Rate FiO2 05/21/20 14:51 69 98 05/21/20 14:45 18 110/59 (76) Nasal Cannula 2.0 05/21/20 11:19 98.1 Laboratory Data Labs 24H Laboratory Tests 2 05/21/20 12:42: Immature Granulocyte % (Auto) , Neutrophils (%) (Auto) , Nucleated Red Blood Cells % (auto) 0.0, Neutrophils 77H, Band Neutrophils 4, Lymphocytes (Manual) 4L, Monocytes (Manual) 6H, Eosinophils (Manual) 1, Basophils (Manual) 3H, Metamyelocytes 2H, Atypical Lymphocytes 3, Poikilocytosis 1+, Anisocytosis 2+, Ovalocytes 1+, Acanthocytes 1+, Platelet Estimate NORMAL, Erythrocyte Sed imentation Rate 53H, Prothrombin Time 18.9H, Prothromb Time International Ratio 1.55, Activated Partial Thromboplast Time 37.0, Anion Gap 2L, Glomerular Filtration Rate 54.9, Calcium Level 8.1L, Total Bilirubin 0.7#, Direct Bilirubin 0.2, Aspartate Amino Transf (AST/SGOT) 9, Alanine Aminotransferase (ALT/SGPT) 10L, Alkaline Phosphatase 76, Total Creatine Kinase 26L, Creatine Kinase MB < 1.0, Creatine Kinase MB Relative Index 3.85, Troponin I < 0.02, C-Reactive Protein, Quantitative 14.00H, Total Protein 5.1L, Albumin 2.5L, Albumin/Globulin Ratio 1.0, Amylase Level 51, Lipase 85 05/21/20 12:55: Lactic Acid Level 0.8 CBC/BMP Laboratory Tests 05/21/20 12:42 Microbiology Microbiology 05/21/20 Blood Culture, Received Pending 05/21/20 Blood Culture, Received Pending Home Medications Scheduled Amiodarone HCl (Amiodarone HCl) 200 Mg Tablet, 200 MG PO DAILY Apixaban (Eliquis) 2.5 Mg Tab, 2.5 MG PO BID Aspirin (Aspirin EC) 81 Mg Tablet.dr, 81 MG PO DAILY NEW SCRIPT FROM 05/20/20 Atenolol (Atenolol) 25 Mg Tablet, 25 MG PO BID Atorvastatin Calcium (Atorvastatin Calcium) 40 Mg Tablet, 40 MG PO DAILY NEW SCRIPT FROM 05/20/20 Budesonide/Formoterol (Symbicort 160-4.5 Mcg Inhaler) 6 Gm Hfa.aer.ad, 2 PUFF INH BID Calcium Carbonate/Vitamin D3 (Calcium 600 mg-Vit D3 10Mcg Tb) 600 Mg-400 Tablet, 1 TAB PO DAILY Diltiazem HCl (Diltiazem HCl) 120 Mg Tablet, 120 MG PO DAILY Ferrous Gluconate (Iron) 240 Mg Tablet, 240 MG PO DAILY Finasteride (Finasteride) 5 Mg Tab, 5 MG PO DAILY Gabapentin (Gabapentin) 100 Mg Capsule, 100 MG PO TID Vale-3 Fatty Acids/Fish Oil (Fish Oil 1,000 mg Capsule) 1 Each Capsule, 1 CAP PO DAILY Omeprazole (Omeprazole) 40 Mg Capsule.dr, 40 MG PO DAILY Paroxetine (Paroxetine HCl) 10 Mg Tablet, 10 MG PO DAILY Prednisone (Prednisone) 5 Mg Tab, 5 MG PO QAM Prednisone (Prednisone) 2.5 Mg Tablet, 2.5 MG PO QPM Ropinirole HCl (Ropinirole HCl) 0.25 Mg Tablet, 0.25 MG PO QHS Tamsulosin Hcl (Tamsulosin HCl) 0.4 Mg Capsule, 0.4 MG PO QHS Torsemide (Torsemide) 20 Mg Tablet, 40 MG PO DAILY levETIRAcetam (levETIRAcetam) 500 Mg Tablet, 500 MG PO BID Scheduled PRN Acetaminophen (Acetaminophen) 500 Mg Tablet, 1,000 MG PO Q8H PRN for PAIN TAKES WITH TRAMADOL PRN Levalbuterol Hydrochloride (Xopenex Hfa) 15 Gm Hfa.aer.ad, 2 PUFF INH Q6H PRN for SHORTNESS OF BREATH Tramadol HCl (Tramadol HCl) 50 Mg Tablet, 50 MG PO Q6H PRN for PAIN Allergies Coded Allergies: petrolatum,white (Verified Allergy, Mild, ITCH/RASH, 09/21/19) fluconazole (Verified Allergy, Unknown, UNKNOWN REACTION, 09/16/19) fluticasone (Verified Allergy, Unknown, UNKNOWN REACTION, 09/16/19) metformin (Verified Allergy, Unknown, UNKNOWN REACTION, 09/16/19) promethazine (Verified Adverse Reaction, Intermediate, Altered Mental Status , 09/21/19) azithromycin (Verified Adverse Reaction, Unknown, LOWERS BP, 09/16/19) clarithromycin (Verified Adverse Reaction, Unknown, LOWERS BP, 09/16/19) procaine (Verified Adverse Reaction, Unknown, DIZZINESS, 09/16/19) A-FIB/CHADSVASC A-FIB History Current/History of A-Fib/PAF?: Yes Current PO Anticoag Therapy: Yes Age/Risk Factor Scoring CHADSVASC: CHADSVASC Response (Comments) Value Age Risk Factor Age >/= 75 years old 2 Gender Risk Factor Male 0 Hx of CHF No 0 Hx of HTN Yes 1 Hx of Stroke/TIA/or VTE No 0 Hx of Diabetes No 0 Hx of Vascular Disease Yes 1 Total 4 Treatment Treatment ordered: Apixaban YUNI BILLINGS MD May 21, 2020 17:33
[2020-05-21] MEDS ORDERED: GABAPENTIN 100 MG CAP PO SCH (21:00)
[2020-05-21] MEDS: atenoloL 25 MG TAB PO SCH (21:00)
[2020-05-21] MEDS: SUCRALFATE SUSP 1GM/10ML UD PO SCH (21:10)
[2020-05-21] MEDS: rOPINIRole 0.25 MG TAB(REQUIP) PO SCH (21:10)
[2020-05-21] MEDS: predniSONE 2.5 MG TAB PO SCH (21:11)
[2020-05-21] MEDS: GABAPENTIN 100 MG CAP PO SCH (21:11)
[2020-05-21] MEDS: APIXABAN 2.5 MG TAB (ELIQUIS) PO SCH (21:12)
[2020-05-21] MEDS: PANTOPRAZOLE 40MG VIAL (C9113 PER 1) IV SCH (21:12)
[2020-05-21] MEDS: TAMSULOSIN 0.4 MG CAP PO SCH (21:12)
[2020-05-21 21:22] VITALS: BP 97/53
[2020-05-22 06:03] VITALS: BP 98/54
[2020-05-22 06:55] LABS: HEMATOCRIT 26.8 % (42.0-52.0); HEMOGLOBIN 8.5 g/dl (13.5-17.5); MEAN CORPUSCULAR HGB CONC 31.7 g/dl (32.0-36.5); MEAN CORPUSCULAR VOLUME 88.2 fl (80.0-96.0); PLATELET COUNT, AUTOMATED 148 10^3/uL (150-450); RED BLOOD COUNT 3.04 10^6/uL (4.30-6.10)
[2020-05-22 06:57] LABS: WHITE BLOOD COUNT 10.6 10^3/uL (4.0-10.0)
[2020-05-22] MEDS: SYMBICORT 160/4.5MCG INHALER 6GM INH SCH ×2 (07:16→19:24)
[2020-05-22 07:20] LABS: CALCIUM LEVEL 7.7 MG/DL (8.8-10.2); CREATININE FOR GFR 1.29 MG/DL (0.70-1.30); GLOMERULAR FILTRATION RATE 56.4 (>35); MAGNESIUM LEVEL 2.1 MG/DL (1.8-2.4); POTASSIUM SERUM 3.8 MEQ/L (3.5-5.1)
[2020-05-22] MEDS: SUCRALFATE SUSP 1GM/10ML UD PO SCH ×3 (07:30→16:33)
[2020-05-22 08:29] LABS: LYMPHOCYTES 3 % (16-44); METAMYELOCYTES 3 % (0-0); MONOCYTES 18 % (0-5); MYELOCYTES 3 % (0-0); NEUTROPHILS 72 % (28-66); PLATELET ESTIMATE NORMAL (NORMAL)
[2020-05-22 08:30] LABS: ANISOCYTOSIS 2+; OVALOCYTES 1+; POIKILOCYTOSIS 1+
[2020-05-22] MEDS: atenoloL 25 MG TAB PO SCH ×2 (08:32→20:38)
[2020-05-22] MEDS: GABAPENTIN 100 MG CAP PO SCH ×4 (09:00→20:54)
[2020-05-22] MEDS: ACETAMINOPHEN 500 MG TAB PO SCH ×4 (09:00→20:54)
[2020-05-22] MEDS ORDERED: TORSEMIDE 20 MG TAB PO SCH (09:00)
[2020-05-22] MEDS ORDERED: E-Z-GAS II EFFERVESCENT PACKET (SODIUM BICARB./CITRIC ACID/SIMETHICONE) As Ordered ONE (10:29)
[2020-05-22] MEDS ORDERED: E-Z-HD 98% w/w 340GM SUSP BTL As Ordered ONE (10:29)
[2020-05-22] MEDS ORDERED: E-Z-PAQUE 96% w/w SUSP 176GM BTL As Ordered ONE (10:29)
[2020-05-22] MEDS ORDERED: NS 500 ML IV ONE (11:15)
--- NOTE | 2020-05-22 11:18 | IPNPDOC ---
Date Seen The patient was seen on 05/22/20. Progress Note SUBJECTIVE: Patient still complains of burning pain in bilateral lower extremities, especially the heels, unable to ambulate despite increasing doses of Neurontin 200 mg 4 times a day, oxycodone and acetaminophen 1 g every before meals at bedtime. Patient is increasingly lethargic with increasing dose of gabapentin but still answering questions appropriately and unarousable this morning PHYSICAL EXAMINATION: vitals: see below Generally, asleep but arousable patient is awake, alert, oriented times three, answering questions appropriately. no use of respiratory accessory muscles no pallor cyanosis HEENT Moist mucous membranes. Tongue is midline. Pupils, round, reactive to light. No jugular venous distention (JVD), thyromegaly, or cervical lymphadenopathy. Lungs are clear to auscultation. No wheezing, rales, or rhonchi. Heart: S1, S2, irregularly irregular., No murmurs noted Abdomen is soft, nontender, nondistended, nondistended. Positive bowel sounds. Extremities:no edema , cyanosis, or clubbing. , Dorsalis pedis, posterior tibialis pulses noted by Doppler LABORATORY DATA: SEE BELOW IMAGING STUDIES: 05/21/20 CTABD/PELVIS 1. Diverticulosis distal left colon sigmoid. No evidence of the colitis, diverticulitis, stricture or mass. Small bowel loops grossly unremarkable. No ascites, perforation or free air in the abdomen and pelvis. 2. Vascular calcifications aorta and branches without aneurysm or dissection. 3. Simple cysts in the liver, kidneys and no renal/ureteral/bladder calculus. No hydronephrosis. 4. No hiatal hernia. Stomach intact gallbladder moderately filled with layering hyperdense debris or gravel in its dependent portion. 5. Adrenal glands normal. Mild splenomegaly with a tiny splenic hemangioma anteriorly degenerative changes spine pelvis and hips without destructive lesion. <Electronically signed by Kwasi Shipley > 05/21/20 1612 ASSESSMENT AND PLAN: 84 y/o M DNR/DNI with PMH significant for chronic afib, CKD3, COPD, gastroparesis, chronic hypoxic respiratory failure on home oxygen, peripheral arterial disease s/p Angioplasty left common iliac artery, external iliac artery with 7 x 100 [place] balloon,. Angioplasty right common iliac artery, external iliac artery, common femoral artery with 7 x 100 [place] balloon, Angioplasty right superficial femoral artery and proximal popliteal artery with 5 x 206 x 200 [place] balloons, Angioplasty right anterior tibial artery and posterior tibial artery with 2 x 220 Sotero balloon on 05/19/20 admitted for pain control and discharged 05/20/20 after passing home safety evaluation. Vascular surgery was to see the patient for revascularization of the left LE as outpt. He was dis charged on ASA and eliquis after pain was controlled, and he was functionally stable for discharge home. Pt returns to the ER with recurrent claudication without relief with his prn pain meds at home. Pt is readmitted for intractable claudication and c/o nause and abdominal pain without bloody diarrhea, weight loss, and compliant with his eliquis and asa. CT abd/pelvis without acute intraabdoominal pathoogy. Intractable b/l LE pain unable to ambulate due to peripheral arterial disease and chronic neuropathy Patient's Neurontin was increased to 100 mg 4 times a day from 3 times a day dosing, but he currently has increasing lethargy concerning for respiratory acidosis from hypercapnia with history of chronic obstructive lung disease. Patient is on when necessary oxycodone with Narcan for respiratory rate less than 10 as needed to reverse if patient develops worsening altered mental status or respiratory distress. Acute rehabilitation unit. Screening physical therapy and occupational therapy been consulted. Patient was to follow-up with Dr. Alexandro Dillard vascular surgery as outpatient to revascularize the left lower extremity. Assisted ambulation only due to increased risk of falls. Activity as tolerated. Once pain is controlled nausea/abd pain Due to risk of gastritis and peptic ulcer disease with continued use of aspirin Aulik was improved chronic prednisone for COPD patient has been sent for an upper GI series this morning, therefore, is been nothing by mouth after midnight . 2. Resume an oral diet after he returns. He is continued on PPI and Carafate empirically Chronic atrial fibrillation, on anticoagulation. Currently rate controlled. He is resumed on his home medications. Chronic obstructive pulmonary disease, at baseline. Prednisone dependent on 2.5 mg and 5 mg daily and Xopenex. Restless legs syndrome. On Requip. BPH. On Flomax. Chronic neuropathy. increase Neurontin to 100 mg qid. Chronic atrial fibrillation. s/p watchman On amiodarone, atenolol, diltiazem, and apixaban. Chronic hypoxic respiratory failure, at baseline, 2 liters of oxygen at all times. Chronic kidney disease stage III. Currently at baseline creatinine. Hypotension secondary to A. fib. Medications such as diltiazem and beta blockers, both of which have been held for low systolic pressure disposition: 2-3days until pain is controlled. VS, I&O, 24H, Fishbone Vital Signs/I&O Vital Signs Date Time Temp Pulse Resp B/P (MAP) Pulse Ox O2 Delivery O2 Flow Rate FiO2 05/22/20 08:30 2.0 05/22/20 08:30 66 96/44 05/22/20 06:03 98.1 16 96 Nasal Cannula I&O- Last 24 Hours up to 6 AM 05/22/20 06:00 Intake Total 1000 ml Output Total 500 ml Balance 500 ml Laboratory Data 24H LABS Laboratory Tests 2 05/21/20 12:42: Immature Granulocyte % (Auto) , Neutrophils (%) (Auto) , Nucleated Red Blood Cells % (auto) 0.0, Neutrophils 77H, Band Neutrophils 4, Lymphocytes (Manual) 4L, Monocytes (Manual) 6H, Eosinophils (Manual) 1, Basophils (Manual) 3H, Metamyelocytes 2H, Atypical Lymphocytes 3, Poikilocytosis 1+, Anisocytosis 2+, Ovalocytes 1+, Acanthocytes 1+, Platelet Estimate NORMAL, Erythrocyte Sedi mentation Rate 53H, Prothrombin Time 18.9H, Prothromb Time International Ratio 1.55, Activated Partial Thromboplast Time 37.0, Anion Gap 2L, Glomerular Filtration Rate 54.9, Calcium Level 8.1L, Total Bilirubin 0.7#, Direct Bilirubin 0.2, Aspartate Amino Transf (AST/SGOT) 9, Alanine Aminotransferase (ALT/SGPT) 10L, Alkaline Phosphatase 76, Total Creatine Kinase 26L, Creatine Kinase MB < 1.0, Creatine Kinase MB Relative Index 3.85, Troponin I < 0.02, C-Reactive Protein, Quantitative 14.00H, Total Protein 5.1L, Albumin 2.5L, Albumin/Globulin Ratio 1.0, Amylase Level 51, Lipase 85 05/21/20 12:55: Lactic Acid Level 0.8 05/22/20 05:30: Urine Color YELLOW, Urine Appearance CLEAR, Urine pH 5.0, Urine Specific [place] 1.034, Urine Protein NEGATIVE, Urine Glucose (UA) NEGATIVE, Urine Ketones NEGATIVE, Urine Blood NEGATIVE, Urine Nitrite NEGATIVE, Urine Bilirubin NEGATIVE, Urine Urobilinogen 0.2, Urine Leukocyte Esterase NEGATIVE, Urine WBC (Auto) 0, Urine RBC (Auto) 0, Urine Hyaline Casts (Auto) 0, Urine Bacteria (Auto) NEGATIVE, Urine Squamous Epithelial Cells 0, Urine Sperm (Auto) 05/22/20 06:18: Immature Granulocyte % (Auto) , Neutrophils (%) (Auto) , Nucleated Red Blood Cells % (auto) 0.0, Neutrophils 72H, Band Neutrophils 1, Lymphocytes (Manual) 3L, Monocytes (Manual) 18H, Metamyelocytes 3H, Poikilocytosis 1+, Anisocytosis 2+, Ovalocytes 1+, Acanthocytes 1+, Platelet Estimate NORMAL, Anion Gap 4L, Glomerular Filtration Rate 56.4, Calcium Level 7.7L, Lipase 89, Myelocytes 3H, Magnesium Level 2.1 CBC/BMP Laboratory Tests 05/21/20 12:42 05/22/20 06:18 Microbiology Microbiology 05/21/20 Respiratory Virus Panel (PCR) (PEG) - Final, Complete 05/21/20 Blood Culture, Received Pending 05/21/20 Blood Culture, Received Pending YUNI BILLINGS MD May 22, 2020 11:18
[2020-05-22] MEDS: PARoxetine 10MG TABLET PO SCH (13:22)
[2020-05-22] MEDS: ASPIRIN 81MG ENTERIC TABLET PO SCH (13:23)
[2020-05-22] MEDS: predniSONE 5 MG TAB PO SCH (13:23)
[2020-05-22] MEDS: FINASTERIDE 5 MG TAB PO SCH (13:25)
[2020-05-22] MEDS: APIXABAN 2.5 MG TAB (ELIQUIS) PO SCH ×2 (13:25→20:54)
[2020-05-22] MEDS: ATORVASTATIN 20 MG TAB PO SCH (13:25)
[2020-05-22] MEDS: AMIODARONE 200 MG TAB (PACERONE) PO SCH (13:25)
[2020-05-22] MEDS: PANTOPRAZOLE 40MG VIAL (C9113 PER 1) IV SCH (13:26)
[2020-05-22 14:00] VITALS: BP 105/53
--- NOTE | 2020-05-22 16:16 | REP ---
INDICATION: INTRACTABLE N/V , EPIGASTRIC ABD PAIN. COMPARISON: None TECHNIQUE: This procedure was performed by Alexandra Méndez [facility], under the direct supervision of Dr. El. Images were reviewed with Dr. El prior to dictation. Liquid barium was given in the supine oblique position in order to perform upper GI examination. Additionally liquid barium was given at the end of the examination in order to perform a small-bowel follow-through. FINDINGS: The silk crepe machine operator film shows no organomegaly or pathological masses. The intestinal gas pattern is unremarkable. There is a contrast opacified bladder, from a previous CT scan dated 05/21/2020. The oral and pharyngeal stages of deglutition were unremarkable. Esophageal transport is prompt and efficient and there is no evidence of esophagitis, stricture, or mucosal ring. However tertiary contractions were visualized during the exam. There is no evidence of a hiatal hernia. There was no gastroesophageal reflux noted . The stomach quiroz are normally outlined. The rugal folds are smooth and regular. There is no gastritis, neoplasm, or ulcerative disease. The duodenal quiroz are normally outlined. The mucosal folds are smooth and regular. There is no duodenitis, peptic ulcer disease or neoplasm. The visualized portion of the proximal small bowel appears normal in course and caliber. The barium column was followed through the small bowel to the level of the terminal ileum. Small bowel transit time is approximately 60 minutes. During fluoroscopy gentle palpation shows all loops are freely movable and pliable. There is no fixed angulated loops. The small bowel mucosal pattern is normal in course and caliber. There is no transition to suggest a partial small bowel obstruction. Spot filming of the terminal ileum shows it to be unremarkable. IMPRESSION: Unremarkable upper GI and small-bowel follow-through. 1.3 minutes of fluoroscopy time was utilized for this procedure. Some fluoroscopic images are performed with last image hold technology. These images require no additional radiation. <Electronically signed by Alexandra Méndez > 05/22/20 1608 <Electronically signed by Mike El > 05/22/20 1613
[2020-05-22] MEDS ORDERED: ONDANSETRON 4MG/2ML VIAL IV ONE (17:30)
[2020-05-22] MEDS ORDERED: GI COCKTAIL 50ML BTL(HYOSCYAMINE/MAALOX/LIDOCAINE VISCOUS)(1:3:1) PO ONE (17:30)
[2020-05-22] MEDS: rOPINIRole 0.25 MG TAB(REQUIP) PO SCH (20:54)
[2020-05-22] MEDS: predniSONE 2.5 MG TAB PO SCH (20:54)
[2020-05-22] MEDS: TAMSULOSIN 0.4 MG CAP PO SCH (20:54)
[2020-05-23 02:00] VITALS: BP 117/61
[2020-05-23] MEDS: GABAPENTIN 100 MG CAP PO SCH ×3 (05:04→22:00)
[2020-05-23 06:10] LABS: HEMATOCRIT 27.2 % (42.0-52.0); HEMOGLOBIN 8.8 g/dl (13.5-17.5); MEAN CORPUSCULAR HEMOGLOBIN 28.6 pg (27.0-33.0); MEAN CORPUSCULAR HGB CONC 32.4 g/dl (32.0-36.5); MEAN CORPUSCULAR VOLUME 88.3 fl (80.0-96.0); PLATELET COUNT, AUTOMATED 147 10^3/uL (150-450); RED BLOOD COUNT 3.08 10^6/uL (4.30-6.10)
[2020-05-23 06:25] LABS: WHITE BLOOD COUNT 8.7 10^3/uL (4.0-10.0)
[2020-05-23 06:39] LABS: BLOOD UREA NITROGEN 26 MG/DL (7-18); CALCIUM LEVEL 8.1 MG/DL (8.8-10.2); CARBON DIOXIDE LEVEL 38 MEQ/L (21-32); CHLORIDE LEVEL 102 MEQ/L (98-107); CREATININE FOR GFR 1.13 MG/DL (0.70-1.30); GLOMERULAR FILTRATION RATE > 60.0 (>35); GLUCOSE, FASTING 147 MG/DL (70-100); LIPASE 120 U/L (73-393); MAGNESIUM LEVEL 2.5 MG/DL (1.8-2.4); POTASSIUM SERUM 4.2 MEQ/L (3.5-5.1); SODIUM LEVEL 145 MEQ/L (136-145)
[2020-05-23 07:18] LABS: ANISOCYTOSIS 2+; ATYPICAL LYMPH 1 % (0-5); LYMPHOCYTES 5 % (16-44); METAMYELOCYTES 3 % (0-0); MONOCYTES 20 % (0-5); MYELOCYTES 1 % (0-0); NEUTROPHILS 68 % (28-66); PLATELET ESTIMATE NORMAL (NORMAL)
[2020-05-23 07:20] LABS: OVALOCYTES 1+; POIKILOCYTOSIS 1+
[2020-05-23] MEDS: SYMBICORT 160/4.5MCG INHALER 6GM INH SCH ×2 (07:39→20:46)
[2020-05-23 08:00] VITALS: BP 120/60
[2020-05-23 09:00] VITALS: BP 118/60
[2020-05-23] MEDS ORDERED: APIXABAN 2.5 MG TAB (ELIQUIS) PO SCH (09:00)
--- NOTE | 2020-05-23 09:06 | IPNPDOC ---
Date Seen The patient was seen on 05/23/20. Progress Note Patient seen and examined. Full consult to follow. He was admitted for nausea and vomiting, and had an upper GI series that was unremarkable. He has no nausea today. He says he is feeling better. Regarding his lower extremities, the right lower extremity is warm with 1 second capillary refill and monophasic signals. When he came in initially on his last visit, we suspected acute on chronic vas cular disease as a possible etiology for his pain versus worsening neuropathic pain. After his arteriogram, I think a lot of his problem was neuropathic. All we found was chronic disease, nothing acute, no acute thrombosis or occlusions. After angioplasty he does have increased perfusion, but his pain is persistent. This would correlate with neuropathic pain. He does not have such vascular insufficiency to cause rest pain. He does not experience claudication unless he walks a very long distance. There have been no adjustments to his gabapentin, but increases have been limited by mental status changes. Today, the patient is lucid. He says his pain is manageable. I looked at his left foot wound and it is almost epithelialized but there is still a callus around the ulcer. I definitely think improve blood flow will help this to stay healed and not reopen. We would like to proceed with his left lower extremity arteriogram. I think sooner rather than later is better. The patient says he is willing to do this as soon as we are able, we have a spot on the schedule tomorrow morning for arteriogram. He will need to be nothing by mouth after midnight except for medications. We will resume his diet after the procedure. Risks benefits and alternatives to an arteriogram were explained to the patient and he is agreeable to proceed. Informed consent was obtained. We appreciate the opportunity to participate in the care of this patient. VS, I&O, 24H, Fishbone Vital Signs/I&O Vital Signs Date Time Temp Pulse Resp B/P (MAP) Pulse Ox O2 Delivery O2 Flow Rate FiO2 05/23/20 08:00 98.2 71 20 120/60 (80) 95 Nasal Cannula 2.0 I&O- Last 24 Hours up to 6 AM 05/23/20 06:00 Intake Total 420 ml Output Total 1270 ml Balance -850 ml Laboratory Data 24H LABS Laboratory Tests 2 05/23/20 05:51: Immature Granulocyte % (Auto) , Neutrophils (%) (Auto) , Nucleated Red Blood Cells % (auto) 0.0, Neutrophils 68H, Band Neutrophils 2, Lymphocytes (Manual) 5L, Monocytes (Manual) 20H, Metamyelocytes 3H, Myelocytes 1H, Atypical Lymphocytes 1, Poikilocytosis 1+, Anisocytosis 2+, Ovalocytes 1+, Acanthocytes 1+, Platelet Estimate NORMAL, Anion Gap 5L, Glomerular Filtration Rate > 60.0, Calcium Level 8.1L, Magnesium Level 2.5H, Lipase 120 CBC/BMP Laboratory Tests 05/23/20 05:51 Microbiology Microbiology 05/21/20 Respiratory Virus Panel (PCR) (PEG) - Final, Complete 05/21/20 Blood Culture - Preliminary, Resulted No growth after 24 hours . All specim... 05/21/20 Blood Culture - Preliminary, Resulted No growth after 24 hours . All specim... ELOINA MIJARES MD May 23, 2020 09:06
--- NOTE | 2020-05-23 09:47 | CR.PDOC ---
General Date of Consultation: May 23, 2020 Consultation REASON FOR CONSULTATION/CHIEF COMPLAINT: Atherosclerosis in the ambler arteries with left foot ulcer HISTORY OF PRESENT ILLNESS: This is a very pleasant 84-year-old gentleman with a long-standing history of peripheral vascular disease, untreated, who was seen for wound on the left foot by podiatry, sent to our office a week ago and an arterial duplex was ordered (not yet completed), and then he noticed worsening pain in his right lower extremity over the last week and a half. He was subsequently seen in the ER at his last hospital visit because the pain worsened so bad that he could not bear weight on the leg at all. It was unclear if this is a neuropathic etiology, or vascular. His foot was pink warm with a 2 second capillary refill and monophasic signal at the PT. I suspected severe chronic peripheral vascular disease, but felt there may be a component of acute arterial thrombosis that has resulted in his new symptoms. A CTA with runoff was performed and after reviewing the imaging, I noted that the patient is heavily calcified from the aorta to the toes, with dense large calcified plaques throughout his arterial tree. This makes it difficult to see what is patent and what is not. It was difficult to say arterial flow in the right superficial femoral artery and popliteal artery. The tibials were even more difficult. On the left lower extremity, I could see some slow flow, so my concern was either that there was a timing difference or that the disease was heavier or that there was an acute thrombosis. Because I was not able to tell from the CT, I discussed with the patient the risks benefits and return advanced to an arteriogram and potential intervention. He then underwent arteriogram of the right lower extremity where we found chronic disease. No acute thrombosis noted. We did gentle angioplasty from the aorta to the toes to try to improve luminal flow that was severely compromised due to heavily calcified balls of plaque throughout the arterial tree. This is a very challenging type of arterial disease to revascularize as the patient is high risk for perforation with aggressive angioplasty and stenting. We were however able to give him a signifi cant improvement in flow with just gentle angioplasty. His foot is warm and well-perfused today, and it's possible that this little bit of increased perfusion worsened his neuropathy. His arterial insufficiency is not so severe as to produce rest pain, and he does not walk far enough at this point to claudication, so this amount of blood flow is adequate but unfortunately does not improve his neuropathic complaints. Regarding the left lower extremity, we discussed arteriogram and intervention at his last clinic visit and at his last hospitalization, and plan to do this outpatient this week. In order to help with healing of the left foot wound and ensure it does not deteriorate, we like to go ahead with an arteriogram tomorrow. The patient is agreeable. He'd like to get it done as soon as possible. We will use as little contrast and IV fluid hydration at the time of the procedure to minimize risk of MANUELA. His creatinine has been stable during his last admission and this admission, but he's had multiple contrast injection so we will use as little dye as possible. The patient and I discussed the risks benefits and alternatives to an arteriogram and he is agreeable to proceed. He says he feels up to it, is no longer having nausea and vomiting, just a little bit more constipation and he is comfortable with. Informed consent was obtained. Will discuss with the hospitalist team about his constipation. Nothing by mouth after midnight. Hold eliquis for procedure. ALLERGIES: Please see below. HOME MEDICATIONS: Please see below. PAST MEDICAL HISTORY: Hypertension, neuropathy, gastroesophageal reflux disease, depression, COPD, BPH, urinary retention, renal insufficiency PAST SURGICAL HISTORY: Pacemaker FAMILY HISTORY: Heart disease SOCIAL HISTORY: Quit smoking 1989, no longer drinks alcohol, denies illicit drug use, patient is and his lives in a detention REVIEW OF SYSTEMS: CONSTITUTIONAL: Denies fevers or chills HEENT: Denies vision changes CARDIOVASCULAR: Denies chest pain RESPIRATORY: Positive shortness of breath with exertion GENITOURINARY: Positive urinary retention and kidney trouble MUSCULOSKELETAL: Positive right leg pain and inability to ambulate GASTROINTESTINAL: Denies nausea or vomiting now, but this is what brought him into the hospital. Reports constipation- no bowel movement 4 days SKIN: Positive wound left foot-slow to heal NEUROLOGICAL: Denies headaches or seizures (although he is on Keppra). Denies stroke PSYCHIATRIC: Positive depression ENDOCRINE: Denies diabetes or thyroid disease HEMATOLOGIC/LYMPHATIC: Positive iron deficient ALLERGIC/IMMUNOLOGIC: Denies PHYSICAL EXAMINATION: VITAL SIGNS: Please see below. GENERAL APPEARANCE: No acute distress HEENT: Normocephalic TMI hearing aids RESPIRATORY: Clear to auscultation CARDIOVASCULAR: Regular rate and rhythm paced ABDOMEN: Soft nontender nondistended EXTREMITIES: Wound stable left foot, DP and PT signals monophasic bilateral. Right foot hyperemic at the toes. 1 second capillary refill bilateral lower extremities and feet are warm. NEUROLOGICAL: Alert and oriented 3, moves all extremities equally PSYCHIATRIC: Pleasant and cooperative, good historian LABORATORY DATA: Please see below. ASSESSMENT/PLAN: Very pleasant 84-year-old gentleman with severe chronic calci fied peripheral vascular disease, and slow healing ulcer left lower extremity foot. 1. Patient is on eliquis twice a day. We will hold this for arteriogram in the morning. Nothing by mouth after midnight except meds. We will restart eliquis postprocedure. 2. Continue careful titration of gabapentin for neuropathic pain bilateral lower extremities. 3. Continue aspirin and statin daily. We appreciate the opportunity to participate in the care of this patient. Vital Signs/I&O Vital Signs Date Time Temp Pulse Resp B/P (MAP) Pulse Ox O2 Delivery O2 Flow Rate FiO2 05/23/20 09:00 98.2 70 17 118/60 (79) Nasal Cannula 2.0 05/23/20 08:00 95 I&O- Last 24 Hours up to 6 AM 05/23/20 06:00 Intake Total 420 ml Output Total 1270 ml Balance -850 ml Laboratory Data Labs 24H Laboratory Tests 2 05/23/20 05:51: Immature Granulocyte % (Auto) , Neutrophils (%) (Auto) , Nucleated Red Blood Cells % (auto) 0.0, Neutrophils 68H, Band Neutrophils 2, Lymphocytes (Manual) 5L, Monocytes (Manual) 20H, Metamyelocytes 3H, Myelocytes 1H, Atypical Lymphocytes 1, Poikilocytosis 1+, Anisocytosis 2+, Ovalocytes 1+, Acanthocytes 1+, Platelet Estimate NORMAL, Anion Gap 5L, Glomerular Filtration Rate > 60.0, Calcium Level 8.1L, Magnesium Level 2.5H, Lipase 120 CBC/BMP Laboratory Tests 05/23/20 05:51 Microbiology Microbiology 05/21/20 Respiratory Virus Panel (PCR) (PEG) - Final, Complete 05/21/20 Blood Culture - Preliminary, Resulted No growth after 24 hours . All specim... 05/21/20 Blood Culture - Preliminary, Resulted No growth after 24 hours . All specim... Allergies Coded Allergies: petrolatum,white (Verified Allergy, Mild, ITCH/RASH, 09/21/19) fluconazole (Verified Allergy, Unknown, UNKNOWN REACTION, 09/16/19) fluticasone (Verified Allergy, Unknown, UNKNOWN REACTION, 09/16/19) metformin (Verified Allergy, Unknown, UNKNOWN REACTION, 09/16/19) promethazine (Verified Adverse Reaction, Intermediate, Altered Mental Status , 09/21/19) azithromycin (Verified Adverse Reaction, Unknown, LOWERS BP, 09/16/19) clarithromycin (Verified Adverse Reaction, Unknown, LOWERS BP, 09/16/19) procaine (Verified Adverse Reaction, Unknown, DIZZINESS, 09/16/19) Home Medications Scheduled Amiodarone HCl (Amiodarone HCl) 200 Mg Tablet, 200 MG PO DAILY, (Reported) Apixaban (Eliquis) 2.5 Mg Tab, 2.5 MG PO BID, (Reported) Aspirin (Aspirin EC) 81 Mg Tablet.dr, 81 MG PO DAILY, (Reported) NEW SCRIPT FROM 05/20/20 Atenolol (Atenolol) 25 Mg Tablet, 25 MG PO BID, (Reported) Atorvastatin Calcium (Atorvastatin Calcium) 40 Mg Tablet, 40 MG PO DAILY, (Reported) NEW SCRIPT FROM 05/20/20 Budesonide/Formoterol (Symbicort 160-4.5 Mcg Inhaler) 6 Gm Hfa.aer.ad, 2 PUFF INH BID, (Reported) Calcium Carbonate/Vitamin D3 (Calcium 600 mg-Vit D3 10Mcg Tb) 600 Mg-400 Tablet, 1 TAB PO DAILY, (Reported) Diltiazem HCl (Diltiazem HCl) 120 Mg Tablet, 120 MG PO DAILY, (Reported) Ferrous Gluconate (Iron) 240 Mg Tablet, 240 MG PO DAILY, (Reported) Finasteride (Finasteride) 5 Mg Tab, 5 MG PO DAILY, (Reported) Gabapentin (Gabapentin) 100 Mg Capsule, 100 MG PO TID, (Reported) [place]-3 Fatty Acids/Fish Oil (Fish Oil 1,000 mg Capsule) 1 Each Capsule, 1 CAP PO DAILY, (Reported) Omeprazole (Omeprazole) 40 Mg Capsule.dr, 40 MG PO DAILY, (Reported) Paroxetine (Paroxetine HCl) 10 Mg Tablet, 10 MG PO DAILY, (Reported) Prednisone (Prednisone) 5 Mg Tab, 5 MG PO QAM, (Reported) Prednisone (Prednisone) 2.5 Mg Tablet, 2.5 MG PO QPM, (Reported) Ropinirole HCl (Ropinirole HCl) 0.25 Mg Tablet, 0.25 MG PO QHS, (Reported) Tamsulosin Hcl (Tamsulosin HCl) 0.4 Mg Capsule, 0.4 MG PO QHS, (Reported) Torsemide (Torsemide) 20 Mg Tablet, 40 MG PO DAILY, (Reported) levETIRAcetam (levETIRAcetam) 500 Mg Tablet, 500 MG PO BID, (Reported) Scheduled PRN Acetaminophen (Acetaminophen) 500 Mg Tablet, 1,000 MG PO Q8H PRN for PAIN, (Reported) TAKES WITH TRAMADOL PRN Levalbuterol Hydrochloride (Xopenex Hfa) 15 Gm Hfa.aer.ad, 2 PUFF INH Q6H PRN for SHORTNESS OF BREATH, (Reported) Tramadol HCl (Tramadol HCl) 50 Mg Tablet, 50 MG PO Q6H PRN for PAIN, (Reported) ELOINA MIJARES MD May 23, 2020 09:47
[2020-05-23] MEDS: ASPIRIN 81MG ENTERIC TABLET PO SCH (10:33)
[2020-05-23] MEDS: PARoxetine 10MG TABLET PO SCH (10:33)
[2020-05-23] MEDS: FINASTERIDE 5 MG TAB PO SCH (10:36)
[2020-05-23] MEDS: ATORVASTATIN 20 MG TAB PO SCH (10:37)
[2020-05-23] MEDS: PANTOPRAZOLE 40MG TAB (PROTONIX) PO SCH (10:42)
[2020-05-23] MEDS: ACETAMINOPHEN 500 MG TAB PO SCH ×4 (10:42→22:04)
[2020-05-23] MEDS: AMIODARONE 200 MG TAB (PACERONE) PO SCH (10:44)
[2020-05-23] MEDS: atenoloL 25 MG TAB PO SCH ×2 (10:45→21:00)
[2020-05-23] MEDS: predniSONE 5 MG TAB PO SCH (10:47)
[2020-05-23] MEDS: MIRALAX *UNIT DOSE* 17GM PACKET PO PRN (11:05)
[2020-05-23] MEDS: SENOKOT S TAB PO PRN (11:05)
[2020-05-23 14:00] VITALS: BP 127/68
--- NOTE | 2020-05-23 15:17 | IPNPDOC ---
Text Note Date of Service The patient was seen on 05/23/20. NOTE Subjective: She was seen and examined his morning at bedside. Tells me he's having some constipation today. Denies nausea today seizure was present yesterday but that is resolved. His lower extremity pain is persistent but tells me overall it is improved from time of admission. There is no acute overnight events. Patient denies chest pain or shortness of breath. Objective: Constitutional: Awake and alert, in no apparent distress, answering my questions appropriately ENT: Sclera are clear. Respiratory: Lungs CTA bilaterally. No respiratory distress. Cardiovascular: Irregular heart rate, no murmur Gastrointestinal: Abdomen is soft, non distended, non tender, BS present. Musculoskeletal: No lower extremity edema Neurologic: No focal neurological deficit. Mental Status: A&O x3, normal affect Assessment/plan: 84 y/o M DNR/DNI with PMH significant for chronic afib, CKD3, COPD, gastroparesis, chronic hypoxic respiratory failure on home oxygen, peripheral arterial disease s/p Angioplasty left common iliac artery, external iliac artery with 7 x 100 Foster balloon,. Angioplasty right common iliac artery, external iliac artery, common femoral artery with 7 x 100 Foster balloon, Angioplasty right superficial femoral artery and proximal popliteal artery with 5 x 206 x 200 Foster balloons, Angioplasty right anterior tibial artery and posterior tibial artery with 2 x 220 Sotero balloon on 05/19/20 admitted for pain control and discharged 05/20/20 after passing home safety evaluation. Vascular surgery was to see the patient for revascularization of the left LE as outpt. He was discharged on ASA and eliquis after pain was controlled, and he was functionally stable for discharge home. Pt returns to the ER with recurrent LE pain without relief with his prn pain meds at home. Pt is readmitted for intractable LE pain and c/o nausea and abdominal pain without bloody diarrhea, weight loss, and compliant with his eliquis and asa. CT abd/pelvis without acute intraabdominal pathology. # Intractable b/l LE pain unable to ambulate due to PAD and neuropathy: Gabapentin dose increased cautiously as he gets AMS with increased dosing. Plan for LLE revascularization 05/[address] moore. PT/OT may need rehab post op. # nausea/abd pain: both resolved today. PPI, carafate empirically. # Constipation: bowel regiment. # Chronic atrial fibrillation, s/p watchman: on anticoagulation. Currently rate controlled. On amiodarone, atenolol, diltiazem, and apixaban. # COPD: not in exacerbation. on 2L home oxygen. On prednisone and Xopenex. # Restless legs syndrome. On Requip. # BPH: On Flomax. # Chronic neuropathy: on gabapentin. Follow up with PCP. # CKD III. Currently at baseline creatinine. [facility] VSDaylin, I+O VSDaylin I+O Laboratory Tests 05/23/20 05:51 Vital Signs Date Time Temp Pulse Resp B/P (MAP) Pulse Ox O2 Delivery O2 Flow Rate FiO2 05/23/20 11:11 2.0 05/23/20 10:45 118/62 05/23/20 09:00 98.2 70 17 95 Nasal Cannula I&O- Last 24 Hours up to 6 AM 05/23/20 06:00 Intake Total 420 ml Output Total 1270 ml Balance -850 ml ELIANE ZAVALA MD May 23, 2020 14:59
[2020-05-23 22:00] VITALS: BP 127/68
[2020-05-23] MEDS: TAMSULOSIN 0.4 MG CAP PO SCH (22:04)
[2020-05-23] MEDS: rOPINIRole 0.25 MG TAB(REQUIP) PO SCH (22:05)
[2020-05-23] MEDS: predniSONE 2.5 MG TAB PO SCH (22:05)
[2020-05-23] MEDS: GI COCKTAIL 50ML BTL(HYOSCYAMINE/MAALOX/LIDOCAINE VISCOUS)(1:3:1) PO PRN (23:32)
[2020-05-24] VITALS (7 sets, daily range): BP systolic 123–130; BP diastolic 63–68
[2020-05-24] MEDS: ONDANSETRON 4MG/2ML VIAL IV PRN (00:08)
[2020-05-24] MEDS: GABAPENTIN 100 MG CAP PO SCH ×3 (05:22→20:57)
[2020-05-24 05:55] LABS: HEMATOCRIT 27.3 % (42.0-52.0); HEMOGLOBIN 8.7 g/dl (13.5-17.5); MEAN CORPUSCULAR HEMOGLOBIN 28.8 pg (27.0-33.0); MEAN CORPUSCULAR HGB CONC 31.9 g/dl (32.0-36.5); MEAN CORPUSCULAR VOLUME 90.4 fl (80.0-96.0); PLATELET COUNT, AUTOMATED 163 10^3/uL (150-450); RED BLOOD COUNT 3.02 10^6/uL (4.30-6.10)
[2020-05-24 05:58] LABS: WHITE BLOOD COUNT 7.5 10^3/uL (4.0-10.0)
[2020-05-24 06:14] LABS: BLOOD UREA NITROGEN 24 MG/DL (7-18); CALCIUM LEVEL 7.7 MG/DL (8.8-10.2); CARBON DIOXIDE LEVEL 38 MEQ/L (21-32); CHLORIDE LEVEL 104 MEQ/L (98-107); GLOMERULAR FILTRATION RATE > 60.0 (>35); GLUCOSE, FASTING 161 MG/DL (70-100); LIPASE 194 U/L (73-393); MAGNESIUM LEVEL 2.5 MG/DL (1.8-2.4); POTASSIUM SERUM 4.4 MEQ/L (3.5-5.1); SODIUM LEVEL 145 MEQ/L (136-145)
[2020-05-24] MEDS ORDERED: LIDOCAINE 1% MDV 20ML VIAL As Ordered ONE (06:43)
[2020-05-24] MEDS ORDERED: ISOVUE-300 61% 50ML VIAL As Ordered ONE ×2 (06:43→09:46)
[2020-05-24] MEDS ORDERED: fentaNYL 100 MCG/2 ML INJECTION (J3010) As Ordered ONE (06:48)
[2020-05-24] MEDS ORDERED: MIDAZOLAM INJ 2MG/2ML VIAL (J2250 PER 1MG) As Ordered ONE (06:48)
[2020-05-24 07:29] LABS: ANISOCYTOSIS 2+; ATYPICAL LYMPH 1 % (0-5); BASOPHILS 1 % (0-1); LYMPHOCYTES 4 % (16-44); METAMYELOCYTES 3 % (0-0); MONOCYTES 15 % (0-5); MYELOCYTES 5 % (0-0); NEUTROPHILS 71 % (28-66); PLATELET ESTIMATE NORMAL (NORMAL)
[2020-05-24 07:30] LABS: OVALOCYTES 1+; POIKILOCYTOSIS 1+
[2020-05-24] MEDS: SYMBICORT 160/4.5MCG INHALER 6GM INH SCH ×2 (07:53→20:24)
--- NOTE | 2020-05-24 08:02 | IPNPDOC ---
Text Note Date of Service The patient was seen on 05/24/20. NOTE Subjective: She was seen and examined this morning at bedside post op. Tolerated procedure well. bed rest for 5 hours post op. Continue to work with PT/OT. He says he's felling well overall. Is hungry. There is no acute overnight events. Patient denies chest pain or shortness of breath. Objective: Constitutional: Awake and alert, in no apparent distress, answering my questions appropriately ENT: Sclera are clear. Respiratory: Lungs CTA bilaterally. No respiratory distress. Cardiovascular: Irregular heart rate, no murmur Gastrointestinal: Abdomen is soft, non distended, non tender, BS present. Musculoskeletal: No lower extremity edema Neurologic: No focal neurological deficit. Mental Status: A&O x3, normal affect Assessment/plan: 84 y/o M DNR/DNI with PMH significant for chronic afib, CKD3, COPD, gastroparesis, chronic hypoxic respiratory failure on home oxygen, peripheral arterial disease s/p Angioplasty left common iliac artery, external iliac artery with 7 x 100 [place] balloon,. Angioplasty right common iliac artery, external iliac artery, common femoral artery with 7 x 100 [place] balloon, Angioplasty right superficial femoral artery and proximal popliteal artery with 5 x 206 x 200 [place] balloons, Angioplasty right anterior tibial artery and posterior tibial artery with 2 x 220 Sotero balloon on 05/19/20 admitted for pain control and discharged 05/20/20 after passing home safety evaluation. Vascular surgery was to see the patient for revascularization of the left LE as outpt. He was discharged on ASA and eliquis after pain was controlled, and he was functionally stable for discharge home. Pt returns to the ER with recurrent LE pain without relief with his prn pain meds at home. Pt is readmitted for intractable LE pain and c/o nausea and abdominal pain without bloody diarrhea, weight loss, and compliant with his eliquis and asa. CT abd/pelvis without acute intraabdominal pathology. # Intractable b/l LE pain unable to ambulate well due to PAD and neuropathy: Gabapentin dose increased cautiously as he gets AMS with increased dosing. LLE revascularization 05/[address] moore, will likely need to return as an OP for a L common femoral artery endarterectomy. PT/OT needs rehab post op. Pain is better controlled. # nausea/abd pain: both resolved. PPI, carafate empirically. # Constipation: bowel regiment. Enema. # Chronic atrial fibrillation, s/p watchman: on anticoagulation. Currently rate controlled. On amiodarone, atenolol, diltiazem, and apixaban. # COPD: not in exacerbation. on 2L home oxygen. On prednisone and Xopenex. # Restless legs syndrome. On Requip. # BPH: On Flomax. # Chronic neuropathy: on gabapentin. Follow up with PCP. # CKD III. Currently at baseline creatinine. [facility] Daylin MARIN, I+O VSDaylin I+O Laboratory Tests 05/24/20 05:17 Vital Signs Date Time Temp Pulse Resp B/P (MAP) Pulse Ox O2 Delivery O2 Flow Rate FiO2 05/24/20 07:38 69 16 99 Nasal Cannula 2 05/24/20 06:45 97.1 05/24/20 06:00 124/66 (85) I&O- Last 24 Hours up to 6 AM 05/24/20 06:00 Intake Total 930 ml Output Total 700 ml Balance 230 ml ELIANE ZAVALA MD May 24, 2020 08:02
[2020-05-24] MEDS: atenoloL 25 MG TAB PO SCH ×2 (09:00→20:56)
[2020-05-24] MEDS ORDERED: APIXABAN 2.5 MG TAB (ELIQUIS) PO SCH (09:00)
[2020-05-24] MEDS: ACETAMINOPHEN 500 MG TAB PO SCH ×5 (09:00→20:57)
--- NOTE | 2020-05-24 10:45 | ROOPDOC ---
[facility] Report Of Operation Report of Operation DATE OF PROCEDURE: 05/24/20 PREPROCEDURE DIAGNOSES: Atherosclerosis of the needed arteries with nonhealing wound left foot POSTPROCEDURE DIAGNOSES: Same PROCEDURE: 1. Ultrasound-guided access right and left common femoral arteries 2. Aortoiliofemoral arteriogram and oblique views of the iliac arteries 3. Selection left external iliac artery and left lower extremity runoff 4. Stenting of the common iliac arteries bilaterally with 9 x 57 express balloon-expandable stents 5. Bilateral distal extension of the stents into the external iliac artery with 8 x 57 express balloon-expandable stents 6. Attempted extension of the right external iliac stent with a 7 x 27 express stent, aborted and retrieval of the stent with the snare, and placement of a 6 x 37 express stent with post-dilation with a 7 x 27 balloon. 7. Attempted extension of the left external iliac artery stent with a 7 x 27 express stent, aborted and unable to be retrieved due to lodgment in the plaque, and excluded against the vessel wall with a 7 x 37 express stent 8. Completion arteriograms 9. Placement of an 8 x 39 VBX covered stent right proximal external iliac artery 10. Completion arteriograms 11. Mynx closure bilateral common femoral arteries SURGEON: Eloina Hodges MD ANESTHESIA: Local anesthesia 10 mL lidocaine. Moderate intravenous conscious sedation was supervised by Dr. Hodges. The patient was independently monitored by a registered nurse assigned to the Department of radiology using automated blood pressure, EKG, and pulse oximetry. The detailed sedation record is permanently stored in the hospital information system. The following is a brief sedation record: Start time 07:47, stop time 09:49, Versed 1 mg IV, fentanyl 50 g IV, heparin 3000 units IV. CONTRAST: 52 mL Isovue-300 INDICATION FOR PROCEDURE: This is a pleasant 84-year-old gentleman with severe peripheral vascular disease and a nonhealing wound on the left foot. Although the wound is starting to heal slowly, where worried about it reopening without adequate blood supply. Risks benefits and alternatives to an arteriogram and potential intervention were discussed with the patient. Since we have already performed angioplasty the entire length of the right lower extremity on his last admission, we know that the patient has extremely severe disease. I talked to the patient about the fact that this may or may not be amenable to endovascular intervention. At the very least, we intend to address his iliac inflow disease today. This was not done on the last case due to the length of the case trying to open outflow through the SFA popliteal and tibial vessels on the right. He is agreeable to this plan. We will use as little contrast as possible give him pl enty of hydration. Informed consent was obtained. INTERPRETATION: 1. Ultrasound reveals heavy near occlusive plaque in the bilateral common femoral arteries worse on the left. 2. There is heavy calcification throughout the distal aorta and iliac vessels b ilaterally. There are intermittent stenoses throughout ranging from 20-40% in the common iliac arteries, severe stenoses but patency noted in the bilateral internal iliac arteries, and 68-70% stenosis noted in the left external iliac artery, 30-40% stenosis noted in the right. There are areas of focal stenosis as well, but diffuse stenosis is noted in the external iliac arteries. Again heavy bulky plaque is noted in the common femoral arteries bilaterally. The worst of it is distally towards the bifurcation into the profunda in the SFA where it is nearly occlusive on the left. 3. There is some flow beyond the heavy plaque in the distal common femoral on the left into the profunda and the SFA. There is heavy bulky near occlusive plaque throughout the SFA with intermittent areas of stenosis around the large balls of calcified plaque. There is heavy calcification in the distal SFA and t he profunda, mild narrowing is noted but the profunda is overall patent. There is 3 vessel runoff at the origin of the tibials, but heavy calcification and plaque prevents in-line runoff to the foot. There is occlusion in the anterior tibial artery, the peroneal artery and the posterior tibial artery with reconstitution distally through collaterals but minimal runoff to the foot ov erall. 4. After stenting the left common iliac arteries with extension into the external iliac arteries, we had a significant improvement in flow with no extravasation embolization for dissection noted. After stenting the right common iliac arteries with extension into the iliac arteries, I had a concern for possible contrast going into the plaque outside of the stent versus a small pseudoaneurysm in the mid external iliac artery. It was difficult to obtain ideal oblique views due to barium in the bowel from a GI study. Therefore, a covered stent was placed in the external iliac artery to make sure we did not have any extravasation or pseudoaneurysm. There was excellent flow following this through the right iliac system following this with no extravasation e mbolization or dissection noted. REPORT OF OPERATION: The patient was brought to the angiographic suite in stable condition bilateral groins were prepped and draped in a sterile fashion. A timeout was performed. Sedation was administered without complication. Local anesthesia was administered to the skin and subcutaneous tissue over the right common femoral artery. A microneedle was used to access the artery and a wire was passed through this access and the needle was removed and a 4 British sheath was placed and flushed with saline. A Glidewire flushing catheter were advanced to the bifurcation in the we went up and over the bifurcation but due to tortuosity and calcium in the left iliac system it was extremely difficult to advance the wire and the catheter. We exchange the catheter for a glide cath and we were able to navigate that to the external iliac artery distally, but could n ot access with the catheter the left common femoral or SFA. We therefore performed a left lower extremity runoff from a flexion of the left external iliac artery. We attempted to advance the catheter further but could not. We attempted to place a Amplatz superstiff wire through the catheter to help us navigated the catheter further, but we could not. The tortuosity, narrow angle to the bifurcation, and calcium plaque unfortunately made crossing this a great challenge. Despite our best efforts, we do not see a way to go up and over the bifurcation from the right. Additionally, we had near occlusive plaque at the left common femoral artery and likely would not be able to navigate past that with the sheath or balloons without occluding it. It was difficult to even get the wire past. I do not feel I would the successful to go antegrade due to the heavy near occlusive plaque in the common femoral artery near the origin of the SFA. This would make going antegrade nearly impossible. I feel the best thing would be for the patient to have a left femoral endarterectomy prior to further attempts at distal endovascular revascularization. Therefore for today, I felt we would try to improve flow through the iliac system. We did not have time to stent the iliacs at his last procedure due to the length of time it took just to revascularize the right leg. We did predilated the vessels that his last pro cedure with a 7 x 100 balloon to improve luminal flow, but did not have time to stent. We gained access in the left common femoral artery in the same fashion as the right with a 4 British sheath. This was flushed with saline. A Glidewire was advanced to the access symbols she's were exchanged for 7 British sheath over the wire and flushed with saline. We advance 9 x 57 express stents up to the proximal common iliac arteries and the stents traversed the tortuosity in the plaque fairly easily. These were deployed at the bilateral common iliac artery origins but not extending into the aorta. We are hoping to preserve an option to go up and over in the future for endovascular procedures. We then extended the stents distally with 8 x 57 express stents into the external iliac arteries bilaterally. There was a 1 cm overlap on the stents. These also traversed the tortuosity in the plaque without difficulty. However, when we attempted to extend a bit further with 7 x 27 express stents, both of them were dislodged from the balloons by plaque and tortuosity. On the right, we were able to successfully snare the stent and remove it through the 7 British sheath, and then place a 6 x 37 express stent and postdilated with a 7 x 27 balloon. On the left, we were unable to snare the stent because it was lodged along plaque. We were able to snare a couple times but could not remove it from the plaque. Therefore elected to exclude the dislodged stent with a 7 x 37 express stent. We did along inflation and following this there was widely patent inflow through the left iliac system was successful exclusion of the dislodged 7 x 27 stent. On the right, our completion arteriogram was concerning for possible flow of contrast into some plaque around the stent versus a possible pseudoaneurysm and it was difficult to tell as oblique angle is limited by barium from a previous bowel study a few days ago. I felt the safest thing was to place a covered stent in the concerning area and following placement of an 8 x 39 stent in the external iliac artery, there is widely patent inflow no further concern for extravasation or pseudoaneurysm. Next, we flushed both sheath was salines and employed Mynx closure devices with good hemostasis. Pressure was held and sterile dressings were applied. The patient was taken to recovery in stable condition. He tolerated the sedation and the procedure well. ESTIMATED BLOOD LOSS: Approximately 50 mL. COMPLICATIONS: The 7 x 27 bilateral common external iliac artery stents were dislodged from the balloon prior to deployment due to tortuosity and heavy plaque in the iliac arteries. The right was removed, the left was left in place and excluded with another stent. Since all of the other stents that we had placed prior to this did not dislodge when traversing the plaque and tortuosity, we will mention this issue to the distributor to see if it was specific to this lot of 7 x 27 stents. This added a bit of time and complexity of the procedure, but overall did not affect the outcome for the patient. PLAN: Bedrest for 5 hours postprocedure. Okay to resume diet and medications. Okay for out of bed with assist after 5 hours of bedrest. We will discuss with the patient the possibility of the left common femoral artery endarterectomy, likely outpatient, after appropriate clearance. If this is successful and the patient recovers well, we may be able to bring him back for another endovascular procedure to try to revascularize the left lower extremity in the SFA and tibials. We will restart eliquis. We appreciate the opportunity to participate in the care of this patient. ELOINA HODGES MD May 24, 2020 10:45
[2020-05-24] MEDS ORDERED: FLEET OIL RETENTION ENEMA PR PRN (10:50)
[2020-05-24] MEDS ORDERED: GLYCERIN ADULT SUPP PR PRN (10:50)
[2020-05-24] MEDS ORDERED: APIXABAN 5 MG TAB (ELIQUIS) PO ONE (11:00)
[2020-05-24] MEDS: AMIODARONE 200 MG TAB (PACERONE) PO SCH (11:31)
[2020-05-24] MEDS: ASPIRIN 81MG ENTERIC TABLET PO SCH (11:31)
[2020-05-24] MEDS: SENOKOT S TAB PO PRN (11:31)
[2020-05-24] MEDS: ATORVASTATIN 20 MG TAB PO SCH (11:31)
[2020-05-24] MEDS: GI COCKTAIL 50ML BTL(HYOSCYAMINE/MAALOX/LIDOCAINE VISCOUS)(1:3:1) PO PRN (11:33)
[2020-05-24] MEDS: MIRALAX *UNIT DOSE* 17GM PACKET PO PRN (11:33)
[2020-05-24] MEDS: FINASTERIDE 5 MG TAB PO SCH (11:37)
[2020-05-24] MEDS: predniSONE 5 MG TAB PO SCH (11:37)
[2020-05-24] MEDS: PANTOPRAZOLE 40MG TAB (PROTONIX) PO SCH (11:37)
[2020-05-24] MEDS: PARoxetine 10MG TABLET PO SCH (11:37)
[2020-05-24] MEDS ORDERED: NS 1,000 ML IV SCH (11:45)
[2020-05-24] MEDS: predniSONE 2.5 MG TAB PO SCH (20:56)
[2020-05-24] MEDS: TAMSULOSIN 0.4 MG CAP PO SCH (20:56)
[2020-05-24] MEDS: rOPINIRole 0.25 MG TAB(REQUIP) PO SCH (20:56)
[2020-05-24] MEDS: APIXABAN 2.5 MG TAB (ELIQUIS) PO SCH (20:57)
[2020-05-25] MEDS: GABAPENTIN 100 MG CAP PO SCH ×3 (05:05→21:16)
[2020-05-25 06:00] VITALS: BP 125/64
[2020-05-25 06:56] LABS: HEMATOCRIT 26.6 % (42.0-52.0); HEMOGLOBIN 8.3 g/dl (13.5-17.5); MEAN CORPUSCULAR HEMOGLOBIN 28.5 pg (27.0-33.0); MEAN CORPUSCULAR HGB CONC 31.2 g/dl (32.0-36.5); MEAN CORPUSCULAR VOLUME 91.4 fl (80.0-96.0); PLATELET COUNT, AUTOMATED 165 10^3/uL (150-450); RED BLOOD COUNT 2.91 10^6/uL (4.30-6.10)
[2020-05-25 07:04] LABS: WHITE BLOOD COUNT 9.4 10^3/uL (4.0-10.0)
[2020-05-25 07:18] LABS: LYMPHOCYTES 8 % (16-44); METAMYELOCYTES 1 % (0-0); MONOCYTES 14 % (0-5); MYELOCYTES 1 % (0-0); NEUTROPHILS 76 % (28-66)
[2020-05-25 07:19] LABS: OVALOCYTES 1+; PLATELET ESTIMATE NORMAL (NORMAL); POIKILOCYTOSIS 1+
[2020-05-25 07:20] LABS: ANISOCYTOSIS 2+
[2020-05-25 07:25] LABS: BLOOD UREA NITROGEN 19 MG/DL (7-18); CALCIUM LEVEL 7.8 MG/DL (8.8-10.2); CARBON DIOXIDE LEVEL 35 MEQ/L (21-32); CHLORIDE LEVEL 107 MEQ/L (98-107); CREATININE FOR GFR 0.99 MG/DL (0.70-1.30); GLOMERULAR FILTRATION RATE > 60.0 (>35); GLUCOSE, FASTING 143 MG/DL (70-100); LIPASE 161 U/L (73-393); MAGNESIUM LEVEL 2.3 MG/DL (1.8-2.4); POTASSIUM SERUM 4.5 MEQ/L (3.5-5.1); SODIUM LEVEL 143 MEQ/L (136-145)
[2020-05-25] MEDS: ONDANSETRON 4MG/2ML VIAL IV PRN ×2 (08:16→18:08)
[2020-05-25] MEDS: SYMBICORT 160/4.5MCG INHALER 6GM INH SCH ×2 (08:22→19:43)
[2020-05-25] MEDS: atenoloL 25 MG TAB PO SCH ×2 (09:00→21:18)
[2020-05-25] MEDS: FINASTERIDE 5 MG TAB PO SCH (09:00)
[2020-05-25] MEDS: ATORVASTATIN 20 MG TAB PO SCH (09:00)
[2020-05-25] MEDS: APIXABAN 2.5 MG TAB (ELIQUIS) PO SCH ×2 (09:00→21:16)
[2020-05-25] MEDS: predniSONE 5 MG TAB PO SCH (09:00)
[2020-05-25] MEDS: ASPIRIN 81MG ENTERIC TABLET PO SCH (09:00)
[2020-05-25] MEDS: AMIODARONE 200 MG TAB (PACERONE) PO SCH (09:00)
[2020-05-25] MEDS: PARoxetine 10MG TABLET PO SCH (09:00)
[2020-05-25] MEDS: ACETAMINOPHEN 500 MG TAB PO SCH ×4 (09:00→21:15)
[2020-05-25] MEDS: PANTOPRAZOLE 40MG TAB (PROTONIX) PO SCH (09:00)
--- NOTE | 2020-05-25 11:48 | IPNPDOC ---
Text Note Date of Service The patient was seen on 05/25/20. NOTE Subjective: Seen and examined this morning at bedside felling well overall. Patient denies chest pain or shortness of breath. States his leg pain is better. There is no acute overnight events reported to me. Objective: Constitutional: Awake and alert, in no apparent distress, answering my questions appropriately ENT: Sclera are clear. Respiratory: Lungs CTA bilaterally. No respiratory distress. Cardiovascular: Irregular heart rate, no murmur Gastrointestinal: Abdomen is soft, non distended, non tender, BS present. Musculoskeletal: No lower extremity edema Neurologic: No focal neurological deficit. Mental Status: A&O x3, normal affect Assessment/plan: 84 y/o M DNR/DNI with PMH significant for chronic afib, CKD3, COPD, gastroparesis, chronic hypoxic respiratory failure on home oxygen, peripheral arterial disease s/p Angioplasty left common iliac artery, external iliac artery with 7 x 100 Butler balloon,. Angioplasty right common iliac artery, external iliac artery, common femoral artery with 7 x 100 Butler balloon, Angioplasty right superficial femoral artery and proximal popliteal artery with 5 x 206 x 200 Butler balloons, Angioplasty right anterior tibial artery and posterior tibial artery with 2 x 220 Sotero balloon on 05/19/20 admitted for pain control and discharged 05/20/20 after passing home safety evaluation. Vascular surgery was to see the patient for revascularization of the left LE as outpt. He was discharged on ASA and eliquis after pain was controlled, and he was functionally stable for discharge home. Pt returns to the ER with recurrent LE pain without relief with his prn pain meds at home. Pt is readmitted for intractable LE pain and c/o nausea and abdominal pain without bloody diarrhea, weight loss, and compliant with his eliquis and asa. CT abd/pelvis without acute intraabdominal pathology. # Intractable b/l LE pain unable to ambulate well due to PAD and neuropathy: Gabapentin dose increased cautiously as he gets AMS with increased dosing. LLE revascularization 05/[address] moore, will likely need to return as an OP for a L common femoral artery endarterectomy. PT/OT needs rehab post op. Pain is better controlled. Waiting on ARU bed Friday. # nausea/abd pain: both resolved. PPI, carafate empirically. # Constipation: bowel regiment. Enema. # Chronic atrial fibrillation, s/p watchman: on anticoagulation. Currently rate controlled. On amiodarone, atenolol, diltiazem, and apixaban. # COPD: not in exacerbation. on 2L home oxygen. On prednisone and Xopenex. # Restless legs syndrome. On Requip. # BPH: On Flomax. # Chronic neuropathy: on gabapentin. Follow up with PCP. # CKD III. Currently at baseline creatinine. [facility] Daylin MARIN, I+O VSDaylin I+O Laboratory Tests 05/25/20 06:34 Vital Signs Date Time Temp Pulse Resp B/P (MAP) Pulse Ox O2 Delivery O2 Flow Rate FiO2 05/25/20 10:06 2.0 05/25/20 06:00 96.7 89 20 125/64 (84) 96 Nasal Cannula I&O- Last 24 Hours up to 6 AM 05/25/20 06:00 Intake Total 1620 ml Output Total 850 ml Balance 770 ml ELIANE ZAVALA MD May 25, 2020 11:48
--- NOTE | 2020-05-25 12:01 | IPNPDOC ---
Text Note Date of Service The patient was seen on 05/25/20. NOTE Vascular surgery. Dr. Hodges This is an 84-year-old male with a long-standing history of peripheral vascular disease, s/p arteriogram of the right lower extremity 05/19/[address] Hodges with angioplasty from the aorta to the toes to try to improve luminal flow that was severely compromised due to heavily calcified balls of plaque throughout the arterial tree. Status post right lower extremity arteriogram 05/24/[address] Hodges with common iliac artery stent bilaterally, extension of the stents into the external iliac bilaterally. This morning, the patient states his legs are feeling better. He is not having as much pain in lower extremities. His primary complaint is nausea. Access sites bilateral groins with no bleeding. The feet are warm and well perfused bilaterally with brisk capillary refill. Wound unchanged left foot. Assessment/plan 84-year-old gentleman with severe chronic calcified peripheral vascular disease, and slow healing ulcer left lower extremity foot. Status post bilateral lower extremity arteriogram with intervention. Continue best medical management with aspirin, statin, Eliquis. Plan for outpatient follow-up with consideration of left common femoral endarterectomy as outpatient. Dr. Hodges has discussed with the patient, he verbalizes understanding and agreement. VS,Fishbone, I+O VS, Fishbone, I+O Laboratory Tests 05/25/20 06:34 Vital Signs Date Time Temp Pulse Resp B/P (MAP) Pulse Ox O2 Delivery O2 Flow Rate FiO2 05/25/20 06:00 96.7 89 20 125/64 (84) 96 Nasal Cannula 2.0 I&O- Last 24 Hours up to 6 AM 05/25/20 06:00 Intake Total 1620 ml Output Total 850 ml Balance 770 ml Lisbet Gottlieb May 25, 2020 10:04
[2020-05-25 15:03] VITALS: BP 128/64
[2020-05-25] MEDS: rOPINIRole 0.25 MG TAB(REQUIP) PO SCH (21:15)
[2020-05-25] MEDS: TAMSULOSIN 0.4 MG CAP PO SCH (21:16)
[2020-05-25] MEDS: predniSONE 2.5 MG TAB PO SCH (21:16)
[2020-05-25 22:00] VITALS: BP 132/66
[2020-05-26] MEDS: GABAPENTIN 100 MG CAP PO SCH ×3 (05:09→21:17)
[2020-05-26 06:00] VITALS: BP 121/57
[2020-05-26 07:49] LABS: HEMATOCRIT 26.6 % (42.0-52.0); HEMOGLOBIN 8.2 g/dl (13.5-17.5); MEAN CORPUSCULAR HGB CONC 30.8 g/dl (32.0-36.5); MEAN CORPUSCULAR VOLUME 90.8 fl (80.0-96.0); PLATELET COUNT, AUTOMATED 176 10^3/uL (150-450); RED BLOOD COUNT 2.93 10^6/uL (4.30-6.10)
[2020-05-26 08:01] LABS: WHITE BLOOD COUNT 12.4 10^3/uL (4.0-10.0)
[2020-05-26] MEDS: SYMBICORT 160/4.5MCG INHALER 6GM INH SCH ×2 (08:08→19:24)
[2020-05-26 08:13] LABS: BLOOD UREA NITROGEN 16 MG/DL (7-18); CALCIUM LEVEL 8.1 MG/DL (8.8-10.2); CARBON DIOXIDE LEVEL 34 MEQ/L (21-32); CHLORIDE LEVEL 106 MEQ/L (98-107); CREATININE FOR GFR 1.09 MG/DL (0.70-1.30); GLOMERULAR FILTRATION RATE > 60.0 (>35); GLUCOSE, FASTING 126 MG/DL (70-100); LIPASE 119 U/L (73-393); MAGNESIUM LEVEL 2.3 MG/DL (1.8-2.4); POTASSIUM SERUM 4.4 MEQ/L (3.5-5.1); SODIUM LEVEL 142 MEQ/L (136-145)
[2020-05-26 08:28] LABS: ANISOCYTOSIS 1+; ATYPICAL LYMPH 4 % (0-5); LYMPHOCYTES 7 % (16-44); MONOCYTES 10 % (0-5); MYELOCYTES 1 % (0-0); NEUTROPHILS 75 % (28-66); POIKILOCYTOSIS 1+
[2020-05-26 08:29] LABS: OVALOCYTES 1+; PLATELET ESTIMATE NORMAL (NORMAL)
[2020-05-26] MEDS: ASPIRIN 81MG ENTERIC TABLET PO SCH (09:21)
[2020-05-26] MEDS: ACETAMINOPHEN 500 MG TAB PO SCH ×4 (09:22→21:15)
[2020-05-26] MEDS: ATORVASTATIN 20 MG TAB PO SCH (09:22)
[2020-05-26] MEDS: FINASTERIDE 5 MG TAB PO SCH (09:22)
[2020-05-26] MEDS: PARoxetine 10MG TABLET PO SCH (09:22)
[2020-05-26] MEDS: APIXABAN 2.5 MG TAB (ELIQUIS) PO SCH ×2 (09:23→21:16)
[2020-05-26] MEDS: PANTOPRAZOLE 40MG TAB (PROTONIX) PO SCH (09:23)
[2020-05-26] MEDS: AMIODARONE 200 MG TAB (PACERONE) PO SCH (09:23)
[2020-05-26] MEDS: atenoloL 25 MG TAB PO SCH ×2 (09:23→21:00)
[2020-05-26] MEDS: predniSONE 5 MG TAB PO SCH (09:23)
[2020-05-26] MEDS ORDERED: BISACODYL 10 MG SUPP PR PRN (09:45)
[2020-05-26] MEDS ORDERED: BISACODYL 10 MG SUPP PR ONE (09:45)
--- NOTE | 2020-05-26 10:34 | IPNPDOC ---
Text Note Date of Service The patient was seen on 05/26/20. NOTE Subjective: Seen and examined this morning at bedside felling well overall. Patient denies chest pain or shortness of breath. Says that his leg pain as to the best it's been today pain is minimal. He states he had an enema with a large bowel movement yesterday. There is no acute overnight events reported to me. Objective: Constitutional: Awake and alert, in no apparent distress, answering my questions appropriately ENT: Sclera are clear. Respiratory: Lungs CTA bilaterally. No respiratory distress. Cardiovascular: Irregular heart rate, no murmur Gastrointestinal: Abdomen is soft, non distended, non tender, BS present. Musculoskeletal: No lower extremity edema Neurologic: No focal neurological deficit. Mental Status: A&O x3, normal affect Assessment/plan: 84 y/o M DNR/DNI with PMH significant for chronic afib, CKD3, COPD, gastroparesis, chronic hypoxic respiratory failure on home oxygen, peripheral arterial disease s/p Angioplasty left common iliac artery, external iliac artery with 7 x 100 Comins balloon,. Angioplasty right common iliac artery, external iliac artery, common femoral artery with 7 x 100 Comins balloon, Angioplasty right superficial femoral artery and proximal popliteal artery with 5 x 206 x 200 Comins balloons, Angioplasty right anterior tibial artery and posterior tibial artery with 2 x 220 Sotero balloon on 05/19/20 admitted for pain control and discharged 05/20/20 after passing home safety evaluation. Vascular surgery was to see the patient for revascularization of the left LE as outpt. He was discharged on ASA and eliquis after pain was controlled, and he was functionally stable for discharge home. Pt returns to the ER with recurrent LE pain without relief with his prn pain meds at home. Pt is readmitted for intractable LE pain and c/o nausea and abdominal pain without bloody diarrhea, weight loss, and compliant with his eliquis and asa. CT abd/pelvis without acute intraabdominal pathology. # Intractable b/l LE pain unable to ambulate well due to PAD and neuropathy: Gabapentin dose increased cautiously as he gets AMS with increased dosing. LLE revascularization 05/[address] moore, will likely need to return as an OP for a L common femoral artery endarterectomy. PT/OT needs rehab post op. Pain is better controlled. Waiting on ARU bed Friday. # nausea/abd pain: both resolved. PPI, carafate empirically. # Constipation: bowel regiment. Enema. # Chronic atrial fibrillation, s/p watchman: on anticoagulation. Currently rate controlled. On amiodarone, atenolol, diltiazem, and apixaban. # COPD: not in exacerbation. on 2L home oxygen. On prednisone and Xopenex. # Restless legs syndrome. On Requip. # BPH: On Flomax. # Chronic neuropathy: on gabapentin. Follow up with PCP. # CKD III. Currently at baseline creatinine. [facility] VSDaylin, I+O VSDaylin I+O Laboratory Tests 05/26/20 07:09 Vital Signs Date Time Temp Pulse Resp B/P (MAP) Pulse Ox O2 Delivery O2 Flow Rate FiO2 05/26/20 09:23 79 121/57 05/26/20 08:47 2.0 05/26/20 06:00 98.8 19 97 Nasal Cannula I&O- Last 24 Hours up to 6 AM 05/26/20 06:00 Intake Total 1490 ml Balance 1490 ml ELIANE ZAVALA MD May 26, 2020 10:34
[2020-05-26 14:00] VITALS: BP 115/56
[2020-05-26] MEDS: TAMSULOSIN 0.4 MG CAP PO SCH (21:16)
[2020-05-26] MEDS: predniSONE 2.5 MG TAB PO SCH (21:16)
[2020-05-26] MEDS: rOPINIRole 0.25 MG TAB(REQUIP) PO SCH (21:16)
[2020-05-26 22:00] VITALS: BP 120/57
[2020-05-27 06:00] VITALS: BP 150/73
[2020-05-27] MEDS: GABAPENTIN 100 MG CAP PO SCH ×3 (06:00→21:40)
[2020-05-27 06:24] LABS: HEMATOCRIT 26.8 % (42.0-52.0); HEMOGLOBIN 8.4 g/dl (13.5-17.5); MEAN CORPUSCULAR HEMOGLOBIN 28.5 pg (27.0-33.0); MEAN CORPUSCULAR HGB CONC 31.3 g/dl (32.0-36.5); MEAN CORPUSCULAR VOLUME 90.8 fl (80.0-96.0); PLATELET COUNT, AUTOMATED 180 10^3/uL (150-450); RED BLOOD COUNT 2.95 10^6/uL (4.30-6.10)
[2020-05-27 06:25] LABS: WHITE BLOOD COUNT 14.1 10^3/uL (4.0-10.0)
[2020-05-27 06:38] LABS: MAGNESIUM LEVEL 2.1 MG/DL (1.8-2.4)
[2020-05-27 06:45] LABS: ANISOCYTOSIS 2+; LYMPHOCYTES 10 % (16-44); METAMYELOCYTES 1 % (0-0); MONOCYTES 9 % (0-5); MYELOCYTES 3 % (0-0); NEUTROPHILS 77 % (28-66); PLATELET ESTIMATE NORMAL (NORMAL); POIKILOCYTOSIS 1+
[2020-05-27 06:47] LABS: OVALOCYTES 1+; POLYCHROMASIA 1+
[2020-05-27] MEDS: SYMBICORT 160/4.5MCG INHALER 6GM INH SCH ×2 (08:15→19:35)
[2020-05-27] MEDS: atenoloL 25 MG TAB PO SCH ×2 (09:00→20:44)
[2020-05-27] MEDS: ACETAMINOPHEN 500 MG TAB PO SCH ×4 (09:00→20:42)
[2020-05-27] MEDS: APIXABAN 2.5 MG TAB (ELIQUIS) PO SCH ×2 (09:18→20:43)
[2020-05-27] MEDS: FINASTERIDE 5 MG TAB PO SCH (09:18)
[2020-05-27] MEDS: ATORVASTATIN 20 MG TAB PO SCH (09:18)
[2020-05-27] MEDS: PANTOPRAZOLE 40MG TAB (PROTONIX) PO SCH (09:19)
[2020-05-27] MEDS: predniSONE 5 MG TAB PO SCH (09:20)
[2020-05-27] MEDS: ASPIRIN 81MG ENTERIC TABLET PO SCH (09:20)
[2020-05-27] MEDS: AMIODARONE 200 MG TAB (PACERONE) PO SCH (09:20)
[2020-05-27] MEDS: PARoxetine 10MG TABLET PO SCH (09:20)
[2020-05-27 14:00] VITALS: BP 134/61
[2020-05-27 17:00] VITALS: BP 127/65
--- NOTE | 2020-05-27 17:50 | REP ---
INDICATION: fall, trauma to left shoulder/arm. COMPARISON: None. TECHNIQUE: Single view left shoulder. FINDINGS: Single limited view shows no acute fracture or dislocation. Pacemaker device projects over the left upper hemithorax. IMPRESSION: No definite fracture or dislocation. <Electronically signed by Judah Schumacher > 05/27/20 [id number]
--- NOTE | 2020-05-27 17:51 | REP ---
INDICATION: fall, trauma to left shoulder/arm COMPARISON: None. TECHNIQUE: Two views left elbow. FINDINGS: There is no evidence of acute fracture, dislocation, or intrinsic bone disease.There is mild spurring of the olecranon. IMPRESSION: No fracture or dislocation. <Electronically signed by Judah Schumacher > 05/27/20 [id number]
--- NOTE | 2020-05-27 18:00 | REPVR ---
PROCEDURE INFORMATION: Exam: CT Cervical Spine Without Contrast Exam date and time: 05/27/2020 5:12 PM Age: 84 years old Clinical indication: Injury or trauma; Fall; Blunt trauma; Additional info: Fall, trauma to head TECHNIQUE: Imaging protocol: Computed tomography images of the cervical spine without contrast. Radiation optimization: All CT scans at this facility use at least one of these dose optimization techniques: automated exposure control; mA and/or kV adjustment per patient size (includes targeted exams where dose is matched to clinical indication); or iterative reconstruction. COMPARISON: No relevant prior studies available. FINDINGS: Tubes, catheters and devices: Vascular pacemaker wires in the left subclavian vein. Vertebrae: No acute fracture. Normal alignment. C2-C3: No significant disc protrusion. No severe spinal canal stenosis. Fused facet joints on the right. No significant neural foraminal narrowing. C3-C4: No significant disc protrusion. No severe spinal canal stenosis. Mild hypertrophic facet arthropathy. Mild uncovertebral hypertrophy. No significant neural foraminal narrowing. C4-C5: Circumferential annulus bulge. Small calcification of the annulus or posterior longitudinal ligament. Mild uncovertebral hypertrophy. Mild facet arthropathy.. No severe spinal canal stenosis. No significant neural foraminal narrowing. C5-C6: Narrowed intervertebral disc space with the anterior and posterior marginal osteophytes, endplate sclerosis and vacuum disc. Mild facet arthropathy. Moderate uncovertebral hypertrophy. No severe spinal canal stenosis. No significant neural foraminal narrowing. C6-C7: No significant disc protrusion. Mild uncovertebral hypertrophy. No severe spinal canal stenosis. No significant neural foraminal narrowing. C7-T1: No significant disc protrusion. No severe spinal canal stenosis. No significant neural foraminal narrowing. Soft tissues: Unremarkable. Lungs: Emphysema at the lung apices.. IMPRESSION: 1. No acute findings. 2. Degenerative disc disease and facet arthropathy. No stenosis. Electronically signed by: Eli Argueta On 05/27/2020 18:01:14 PM
--- NOTE | 2020-05-27 18:07 | REPVR ---
PROCEDURE INFORMATION: Exam: CT Head Without Contrast Exam date and time: 05/27/2020 5:12 PM Age: 84 years old Clinical indication: Injury or trauma; Fall; Blunt trauma (contusions or hematomas); Additional info: Fall, trauma to head TECHNIQUE: Imaging protocol: Computed tomography of the head without contrast. Radiation optimization: All CT scans at this facility use at least one of these dose optimization techniques: automated exposure control; mA and/or kV adjustment per patient size (includes targeted exams where dose is matched to clinical indication); or iterative reconstruction. COMPARISON: CT Head without contrast 01/17/2020 5:49 PM FINDINGS: Brain: Moderate cerebellar and cerebral atrophy. Basal ganglia calcifications. Minimal low-density in the periventricular white matter extending into bolivar radiata and centrum semiovale bilaterally.. No hemorrhage. No mass effect. Midline structures intact. Cerebral ventricles: No ventriculomegaly. Bones/joints: Unremarkable. No acute fracture. Paranasal sinuses: Visualized sinuses are unremarkable. No fluid levels. Mastoid air cells: Visualized mastoid air cells are well aerated. Soft tissues: Unremarkable. IMPRESSION: 1. No acute findings. 2. Moderate cerebral and cerebellar atrophy. Mild chronic microvascular ischemic change in the deep white matter. Electronically signed by: Eli Argueta On 05/27/2020 18:08:32 PM
--- NOTE | 2020-05-27 18:08 | REP ---
INDICATION: post fall. COMPARISON: 05/19/2020. TECHNIQUE: SINGLE PORTABLE AP VIEW OF THE CHEST WAS PERFORMED. FINDINGS: There is no acute infiltrate. The heart is not significantly enlarged. There is calcification of the thoracic aorta. The mediastinal silhouette is unchanged. Two lead pacemaker is unchanged. IMPRESSION: NO ACUTE PULMONARY DISEASE. <Electronically signed by Judah Schumacher > 05/27/20 [id number]
--- NOTE | 2020-05-27 19:34 | IPNPDOC ---
Text Note Date of Service The patient was seen on 05/27/20. NOTE Subjective: Patient was lying down in bed when I am in the room. He states that he is feeling well overall. He reports that the pain in his leg is significantly improved since his revascularization procedure. He is quite pleasant, and does not have any complaints at this time. Update: Patient had an unwitnessed fall out of his bed this evening. Nurses found him immediately thereafter due to bed alarm going off. He did experience a small laceration to the head, and even being anticoagulated the bleeding stopped shortly thereafter with the application of pressure. It is now bandaged. He also did experience a skin tear to the left forearm. Head CT, neck CT, left shoulder x-ray, left elbow x-ray were all performed, none of which showed any acute injury or fracture. Specifically head CT did not show any intracranial hemorrhage. I called and personally spoke with the healthcare proxy his granddaughter Amalia , and she also invited her uncle to be on t he line also. Everything was explained to them, and all of their questions were answered. Specifically they bring up the fact that his dementia/hallucination seems to get worse anytime he is given an anti-emetic, his Zofran has now been discontinued, and it has also been added to his allergy list so that he will not get any additional doses. Also, in discussion with them and they felt that perhaps an increase dose of Paxil would be beneficial given his anxiety, therefore I will increase his dose from 10 mg to 20 mg daily. Objective: Constitutional: Awake and alert, in no apparent distress, answering my questions appropriately, he does not appear to be having any hallucinations at this time. ENT: Sclera are clear. Respiratory: Lungs CTA bilaterally. No respiratory distress. Cardiovascular: Irregular heart rate, no murmur Gastrointestinal: Abdomen is soft, non distended, non tender, BS present. Musculoskeletal: No lower extremity edema Neurologic: No focal neurological deficit. Mental Status: A&O x3, normal affect Assessment/plan: 84 y/o M DNR/DNI with PMH significant for chronic afib, CKD3, COPD, gastroparesis, chronic hypoxic respiratory failure on home oxygen, peripheral arterial disease s/p Angioplasty left common iliac artery, external iliac artery with 7 x 100 [place] balloon,. Angioplasty right common iliac artery, external iliac artery, common femoral artery with 7 x 100 [place] balloon, Angioplasty right superficial femoral artery and proximal popliteal artery with 5 x 206 x 200 [place] balloons, Angioplasty right anterior tibial artery and posterior tibial artery with 2 x 220 [place] balloon on 05/19/20 admitted for pain control and discharged 05/20/20 after passing home safety evaluation. Vascular surgery was to see the patient for revascularization of the left LE as outpt. He was discharged on ASA and eliquis after pain was controlled, and he was functionally stable for discharge home. Pt returns to the ER with recurrent LE pain without relief with his prn pain meds at home. Pt is readmitted for intractable LE pain and c/o nausea and abdominal pain without bloody diarrhea, weight loss, and compliant with his eliquis and asa. CT abd/pelvis without acute intraabdominal pathology. # Intractable b/l LE pain unable to ambulate well due to PAD and neuropathy: Gabapentin dose increased cautiously as he gets AMS with increased dosing. LLE revascularization 05/[address] moore, will likely need to return as an OP for a L common femoral artery endarterectomy. PT/OT needs rehab post op. Pain is better controlled. Waiting on ARU bed Friday. # nausea/abd pain: both resolved. PPI, carafate empirically. No anti-emetic medications will be given. # Constipation: bowel regiment. Enema PRN. # Chronic atrial fibrillation, s/p watchman: on anticoagulation. Currently rate controlled. On amiodarone, atenolol, diltiazem, and apixaban. # COPD: not in exacerbation. on 2L home oxygen. On prednisone and Xopenex. # Restless legs syndrome. On Requip. # BPH: On Flomax. # Chronic neuropathy: on gabapentin. Follow up with PCP. # CKD III. Currently at baseline creatinine. # Anxiety: Increased dose of Paxil to 20 mg daily # Unwitnessed fall: Imaging studies as above, none showed any acute injury. Bleeding resolved quite quickly, will continue anticoagulation. # skin tears s/p fall: Wound dressing with clean gauze and Kerlix wrap, change daily or more often if they become soiled. VS,Fishbone, I+O VS, Fishbone, I+O Laboratory Tests 05/27/20 05:59 Vital Signs Date Time Temp Pulse Resp B/P (MAP) Pulse Ox O2 Delivery O2 Flow Rate FiO2 05/27/20 17:00 2.0 05/27/20 17:00 98.0 66 20 127/65 (85) Nasal Cannula 05/27/20 14:00 97 I&O- Last 24 Hours up to 6 AM 05/27/20 06:00 Intake Total 1080 ml Output Total 401 ml Balance 679 ml JOSE DE JESUS CENTENO DO May 27, 2020 19:34
[2020-05-27] MEDS: predniSONE 2.5 MG TAB PO SCH (20:42)
[2020-05-27] MEDS: rOPINIRole 0.25 MG TAB(REQUIP) PO SCH (20:43)
[2020-05-27] MEDS: TAMSULOSIN 0.4 MG CAP PO SCH (20:43)
[2020-05-27 22:00] VITALS: BP 132/69
[2020-05-28] MEDS: GABAPENTIN 100 MG CAP PO SCH ×4 (05:57→22:00)
[2020-05-28 06:00] VITALS: BP 158/70
[2020-05-28 06:42] LABS: HEMATOCRIT 22.6 % (42.0-52.0); MAGNESIUM LEVEL 1.7 MG/DL (1.8-2.4); MEAN CORPUSCULAR HEMOGLOBIN 27.9 pg (27.0-33.0); PLATELET COUNT, AUTOMATED 180 10^3/uL (150-450); RED BLOOD COUNT 2.51 10^6/uL (4.30-6.10)
[2020-05-28 06:44] LABS: WHITE BLOOD COUNT 10.2 10^3/uL (4.0-10.0)
[2020-05-28 06:54] LABS: ANISOCYTOSIS 2+; LYMPHOCYTES 11 % (16-44); METAMYELOCYTES 1 % (0-0); MONOCYTES 5 % (0-5); MYELOCYTES 3 % (0-0); NEUTROPHILS 79 % (28-66)
[2020-05-28 06:55] LABS: OVALOCYTES 1+; PLATELET ESTIMATE NORMAL (NORMAL); POIKILOCYTOSIS 2+; POLYCHROMASIA 1+
[2020-05-28] MEDS: SYMBICORT 160/4.5MCG INHALER 6GM INH SCH ×2 (07:48→20:14)
[2020-05-28] MEDS: FINASTERIDE 5 MG TAB PO SCH (08:09)
[2020-05-28] MEDS: PARoxetine 20MG TABLET PO SCH (08:09)
[2020-05-28] MEDS: ATORVASTATIN 20 MG TAB PO SCH (08:09)
[2020-05-28] MEDS: ASPIRIN 81MG ENTERIC TABLET PO SCH (08:10)
[2020-05-28] MEDS: ACETAMINOPHEN 500 MG TAB PO SCH ×4 (08:10→21:52)
[2020-05-28] MEDS: atenoloL 25 MG TAB PO SCH ×2 (08:11→21:00)
[2020-05-28] MEDS: APIXABAN 2.5 MG TAB (ELIQUIS) PO SCH ×2 (08:11→21:53)
[2020-05-28] MEDS: predniSONE 5 MG TAB PO SCH (08:11)
[2020-05-28] MEDS: AMIODARONE 200 MG TAB (PACERONE) PO SCH (08:11)
[2020-05-28] MEDS: PANTOPRAZOLE 40MG TAB (PROTONIX) PO SCH (08:11)
[2020-05-28] MEDS ORDERED: MAG SULF 1GM/100ML (MAG RUN) 1 GM in IV 1 EA IV ONE (09:00)
[2020-05-28 12:16] LABS: HEMATOCRIT 21.6 % (42.0-52.0)
[2020-05-28 14:00] VITALS: BP 110/48
--- NOTE | 2020-05-28 15:53 | IPNPDOC ---
Text Note Date of Service The patient was seen on 05/28/20. NOTE Subjective: Patient does appear to be somewhat delirious and today, he tells me that there is a lizard peaking out at the bottom of his bed when I speak with him. He does not appear to be in any distress at this time. The bandages on his left arm have required changing fairly frequently through the night and this morning, particularly the left hand. His CBC does show that he had a drop of hemoglobin from 8.4-7.0 since yesterday which is likely secondary to blood loss from the skin tears on his left arm. The small wound on his head is nonbleeding at all, the wound on his elbow seems to be seeping slowly but constantly, and the wound on his left hand has been soaking the bandages quite consistently this morning. Steri-Strips were applied to the wound on the hand, and this has significantly slow down the bleeding throughout the remainder of today though. Repeat H&H t thomas at noon showed a hemoglobin of 7.0, therefore we will hold off on blood transfusion. His healthcare proxy was here earlier today and she did sign consent for blood transfusion should he need it. We will transfuse if hemoglobin drops below 7.0. Objective: Constitutional: Awake and alert, not oriented ENT: Sclera are clear. Respiratory: Lungs CTA bilaterally. No respiratory distress. Cardiovascular: Irregular heart rate, no murmur Gastrointestinal: Abdomen is soft, non distended, non tender, BS present. Extremities: No lower extremity edema. Wound to the head is approximately 1 cm, Steri-Strips are in place, no bleeding. He has a skin tear to the left elbow that is approximately 3 cm x 5cm by visual estimate. Skin tear to the left hand located on the dorsal aspect at the base of the thumb is approximately 1 cm x 4 cm by visual estimate. Neurologic: No focal neurological deficit, seems delirious at this time. Mental Status: A&O x3, normal affect Assessment/plan: 84 y/o M DNR/DNI with PMH significant for chronic afib, CKD3, COPD, gastroparesis, chronic hypoxic respiratory failure on home oxygen, peripheral arterial disease s/p Angioplasty left common iliac artery, external iliac artery with 7 x 100 [place] balloon,. Angioplasty right common iliac artery, external iliac artery, common femoral artery with 7 x 100 [place] balloon, Angioplasty right superficial femoral artery and proximal popliteal artery with 5 x 206 x 200 [place] balloons, Angioplasty right anterior tibial artery and posterior tibial artery with 2 x 220 [place] balloon on 05/19/20 admitted for pain control and discharged 05/20/20 after passing home safety evaluation. Vascular surgery was to see the patient for revascularization of the left LE as outpt. He was discharged on ASA and eliquis after pain was controlled, and he was functionally stable for discharge home. Pt returns to the ER with recurrent LE pain without relief with his prn pain meds at home. Pt is readmitted for intractable LE pain and c/o nausea and abdominal pain without bloody diarrhea, weight loss, and compliant with his eliquis and asa. CT abd/pelvis without acute intraabdominal pathology. # Intractable b/l LE pain unable to ambulate well due to PAD and neuropathy: Gabapentin dose increased cautiously as he gets AMS with increased dosing. LLE revascularization 05/[address] moore, will likely need to return as an OP for a L common femoral artery endarterectomy. PT/OT needs rehab post op. Pain is much better controlled. Waiting on ARU bed Friday. # nausea/abd pain: both resolved. PPI, carafate empirically. No anti-emetic medications will be given. # Constipation: bowel regiment. Enema PRN. # Chronic atrial fibrillation, s/p watchman: on anticoagulation. Currently rate controlled. On amiodarone, atenolol, diltiazem, and apixaban. # COPD: not in exacerbation. on 2L home oxygen. On prednisone and Xopenex. # Restless legs syndrome. On Requip. # BPH: On Flomax. # Chronic neuropathy: on gabapentin. Follow up with PCP. # CKD III. Currently at baseline creatinine. # Anxiety: Continue Paxil to 20 mg daily # Unwitnessed fall: No traumatic injuries noted on imaging. With the Steri- Strips in place the bleeding seems to have improved. If he continues to bleed we will plan on blood transfusion. # skin tears s/p fall: Wound dressing with clean gauze, Vaseline impregnated gauze, Telfa pad, and Kerlix wrap, change daily or more often if they become soiled. VS,Fishbone, I+O VS, Fishbone, I+O Laboratory Tests 05/28/20 05:58 05/28/20 12:06 Vital Signs Date Time Temp Pulse Resp B/P (MAP) Pulse Ox O2 Delivery O2 Flow Rate FiO2 05/28/20 14:00 98.7 74 14 110/48 (68) 98 Nasal Cannula 2.0 I&O- Last 24 Hours up to 6 AM 05/28/20 06:00 Intake Total 610 ml Output Total 750 ml Balance -140 ml JOSE DE JESUS CENTENO DO May 28, 2020 15:53
[2020-05-28] MEDS: predniSONE 2.5 MG TAB PO SCH (21:53)
[2020-05-28] MEDS: rOPINIRole 0.25 MG TAB(REQUIP) PO SCH (21:53)
[2020-05-28] MEDS: TAMSULOSIN 0.4 MG CAP PO SCH (21:53)
[2020-05-28 22:00] VITALS: BP 108/51
[2020-05-29] VITALS (12 sets, daily range): BP systolic 90–128; BP diastolic 22–59
[2020-05-29 05:22] LABS: MEAN CORPUSCULAR HEMOGLOBIN 28.3 pg (27.0-33.0); MEAN CORPUSCULAR HGB CONC 31.9 g/dl (32.0-36.5); MEAN CORPUSCULAR VOLUME 88.7 fl (80.0-96.0); PLATELET COUNT, AUTOMATED 200 10^3/uL (150-450); RED BLOOD COUNT 2.12 10^6/uL (4.30-6.10); WHITE BLOOD COUNT 12.8 10^3/uL (4.0-10.0)
[2020-05-29 05:27] LABS: HEMATOCRIT 18.8 % (42.0-52.0)
[2020-05-29] MEDS: GABAPENTIN 100 MG CAP PO SCH ×4 (05:38→22:00)
[2020-05-29 05:49] LABS: CALCIUM LEVEL 7.7 MG/DL (8.8-10.2); CREATININE FOR GFR 1.26 MG/DL (0.70-1.30); GLOMERULAR FILTRATION RATE 57.9 (>35)
[2020-05-29 06:54] LABS: PERCENT SATURATION 16.8 % (19.7-50.0)
[2020-05-29] MEDS: SYMBICORT 160/4.5MCG INHALER 6GM INH SCH ×2 (07:15→20:02)
[2020-05-29] MEDS: ASPIRIN 81MG ENTERIC TABLET PO SCH (08:52)
[2020-05-29] MEDS: ATORVASTATIN 20 MG TAB PO SCH (08:52)
[2020-05-29] MEDS: APIXABAN 2.5 MG TAB (ELIQUIS) PO SCH (08:53)
[2020-05-29] MEDS: AMIODARONE 200 MG TAB (PACERONE) PO SCH (08:53)
[2020-05-29] MEDS: ACETAMINOPHEN 500 MG TAB PO SCH ×5 (08:53→21:06)
[2020-05-29] MEDS: atenoloL 25 MG TAB PO SCH ×2 (09:00→21:07)
[2020-05-29] MEDS: PANTOPRAZOLE 40MG TAB (PROTONIX) PO SCH (09:15)
[2020-05-29] MEDS: FINASTERIDE 5 MG TAB PO SCH (09:15)
[2020-05-29] MEDS: predniSONE 5 MG TAB PO SCH (09:15)
[2020-05-29] MEDS: PARoxetine 20MG TABLET PO SCH (09:15)
[2020-05-29 11:02] LABS: FOLATE 9.8 NG/ML (>5.4)
[2020-05-29 14:58] LABS: HEMATOCRIT 25.3 % (42.0-52.0)
[2020-05-29 14:59] LABS: HEMOGLOBIN 8.3 g/dl (13.5-17.5)
--- NOTE | 2020-05-29 19:48 | IPNPDOC ---
Text Note Date of Service The patient was seen on 05/29/20. NOTE Subjective: Patient is somewhat lethargic this morning, but he is arousable. However he did have a loss of his H&H from 7.0 down to 6.0 today. One unit of blood was already given by the night doctor, I will order one additional unit as well given some soft blood pressures. His H&H has been trending down due to blood loss secondary to skin tears on his left elbow and wrist. The bleeding seemed to slow down yesterday, but overnight it seems to resumed again. We will hold his Eliquis for the next few days. Objective: Constitutional: not oriented, easily arousable ENT: Sclera are clear. Respiratory: Lungs CTA bilaterally. No respiratory distress. Cardiovascular: Irregular heart rate, no murmur Gastrointestinal: Abdomen is soft, non distended, non tender, BS present. Extremities: No lower extremity edema. Wound to the head is approximately 1 cm, Steri-Strips are in place, no bleeding. He has a skin tear to the left elbow that is approximately 3 cm x 5cm by visual estimate. Skin tear to the left hand located on the dorsal aspect at the base of the thumb is approximately 1 cm x 4 cm by visual estimate. Neurologic: No focal neurological deficit, seems delirious at this time. Mental Status: A&O x3, normal affect Assessment/plan: 84 y/o M DNR/DNI with PMH significant for chronic afib, CKD3, COPD, gastroparesis, chronic hypoxic respiratory failure on home oxygen, peripheral arterial disease s/p Angioplasty left common iliac artery, external iliac artery with 7 x 100 [place] balloon,. Angioplasty right common iliac artery, external iliac artery, common femoral artery with 7 x 100 [place] balloon, Angioplasty right superficial femoral artery and proximal popliteal artery with 5 x 206 x 200 [place] balloons, Angioplasty right anterior tibial artery and posterior tibial artery with 2 x 220 [place] balloon on 05/19/20 admitted for pain control and discharged 05/20/20 after passing home safety evaluation. Vascular surgery was to see the patient for revascularization of the left LE as outpt. He was discharged on ASA and eliquis after pain was controlled, and he was functionally stable for discharge home. Pt returns to the ER with recurrent LE pain without relief with his prn pain meds at home. Pt is readmitted for intractable LE pain and c/o nausea and abdominal pain without bloody diarrhea, weight loss, and compliant with his eliquis and asa. CT abd/pelvis without acute intraabdominal pathology. # Intractable b/l LE pain unable to ambulate well due to PAD and neuropathy: Gabapentin dose increased cautiously as he gets AMS with increased dosing. LLE revascularization 05/[address] moore, will likely need to return as an OP for a L common femoral artery endarterectomy. PT/OT needs rehab post op. Pain is much better controlled. # nausea/abd pain: both resolved. PPI, carafate empirically. No anti-emetic medications will be given. # Constipation: bowel regiment. Enema PRN. # Chronic atrial fibrillation, s/p watchman: on anticoagulation. Currently rate controlled. On amiodarone, atenolol, diltiazem, and apixaban. # COPD: not in exacerbation. on 2L home oxygen. On prednisone and Xopenex. # Restless legs syndrome. On Requip. # BPH: On Flomax. # Chronic neuropathy: on gabapentin. Follow up with PCP. # CKD III. Currently at baseline creatinine. # Anxiety: Continue Paxil to 20 mg daily # Unwitnessed fall: No traumatic injuries noted on imaging. # Skin tears to left arm sustained during unwitnessed fall: Transfuse total of 2 units of blood today. Stop Eliquis. Continue with dressing changes when soiled Disposition: When patient is medically stable he may be discharged home to the care of his granddaughter (who is also his healthcare proxy) who can provide 24- hour care VS,[place], I+O VSDaylin, I+O Laboratory Tests 05/29/20 05:11 05/29/20 14:34 Vital Signs Date Time Temp Pulse Resp B/P (MAP) Pulse Ox O2 Delivery O2 Flow Rate FiO2 05/29/20 14:00 97.8 70 13 105/22 (49) 99 Nasal Cannula 2.0 I&O- Last 24 Hours up to 6 AM 05/29/20 05:59 Intake Total 440 ml Output Total 250 ml Balance 190 ml JOSE DE JESUS CENTENO DO May 29, 2020 19:48
[2020-05-29] MEDS: TAMSULOSIN 0.4 MG CAP PO SCH (21:07)
[2020-05-29] MEDS: predniSONE 2.5 MG TAB PO SCH (21:07)
[2020-05-29] MEDS: rOPINIRole 0.25 MG TAB(REQUIP) PO SCH (21:07)
[2020-05-30 00:16] LABS: HEMATOCRIT 23.7 % (42.0-52.0); HEMOGLOBIN 7.7 g/dl (13.5-17.5)
[2020-05-30] MEDS: GABAPENTIN 100 MG CAP PO SCH ×3 (05:13→20:16)
[2020-05-30 05:14] VITALS: BP 100/75
[2020-05-30 05:38] LABS: HEMATOCRIT 24.7 % (42.0-52.0); HEMOGLOBIN 7.8 g/dl (13.5-17.5); MEAN CORPUSCULAR HEMOGLOBIN 28.3 pg (27.0-33.0); MEAN CORPUSCULAR HGB CONC 31.6 g/dl (32.0-36.5); MEAN CORPUSCULAR VOLUME 89.5 fl (80.0-96.0); PLATELET COUNT, AUTOMATED 202 10^3/uL (150-450); RED BLOOD COUNT 2.76 10^6/uL (4.30-6.10); WHITE BLOOD COUNT 11.5 10^3/uL (4.0-10.0)
[2020-05-30 05:59] LABS: BLOOD UREA NITROGEN 25 MG/DL (7-18); CALCIUM LEVEL 7.7 MG/DL (8.8-10.2); CARBON DIOXIDE LEVEL 30 MEQ/L (21-32); CHLORIDE LEVEL 109 MEQ/L (98-107); CREATININE FOR GFR 1.14 MG/DL (0.70-1.30); GLOMERULAR FILTRATION RATE > 60.0 (>35); GLUCOSE, FASTING 159 MG/DL (70-100); SODIUM LEVEL 142 MEQ/L (136-145)
[2020-05-30] MEDS: SYMBICORT 160/4.5MCG INHALER 6GM INH SCH ×2 (07:17→19:51)
[2020-05-30] MEDS: atenoloL 25 MG TAB PO SCH ×2 (09:00→20:16)
--- NOTE | 2020-05-30 09:52 | IPN ---
PROGRESS NOTE DATE: 05/30/2020 SUBJECTIVE: Pete is seen on 5 . He was admitted with intractable lower extremity pain, unable to ambulate due to peripheral arterial disease and neuropathy, underwent left lower extremity revascularization on 05/24 with plan to return as an outpatient for left common femoral artery endarterectomy, also had increased dose of Gabapentin which helped his neuropathy. Unfortunately, he apparently fell and then developed skin tear in his left upper extremity so his Eliquis has been on hold. He had to be transfused yesterday. Other past medical history shows chronic kidney disease Stage III, chronic anxiety on Paxil 20 mg daily, BPH on Flomax, restless leg syndrome, atrial fibrillation status post Watchman procedure, still on anticoagulant as well as amiodarone and Diltiazem. He is complaining of left leg pain today and pain at the skin tear areas. There is no significant bleeding from the skin tears. The nursing staff say his dressings all look good. OBJECTIVE: VITAL SIGNS: Blood pressure 100/75, pulse 73, respirations 18. GENERAL APPEARANCE: Alert, conversant, in no distress. Left upper extremity is dressed. LUNGS: Clear. HEART: Regular rhythm. ABDOMEN: Soft, nontender. EXTREMITIES: He has good pulses in the left lower extremity and it is warm. LABORATORY DATA: White count is 11.2, hemoglobin is 7.8, it was 6 yesterday before transfusion, platelets 202,000, sodium 142, potassium 4, BUN 25, creatinine 1.1, glucose 159. Iron studies showed anemia of chronic disease. Low TIBC. Normal ferritin. IMPRESSION: 1. Acute blood loss anemia requiring transfusion. Hemoglobin is up to 7.8, probably need more blood. If his hemoglobin drift down again I will transfuse him with this recent revascularization procedure, I would like his hemoglobin up around 8. 2. Anemia of chronic inflammation. His baseline labs show excess iron. He had acute blood loss from the fall but he has anemia of chronic inflammation at baseline. 3. Chronic kidney disease Stage IIIA, daily labs have been ordered to follow this. 4. Atrial fibrillation, his Eliquis is on hold. I plan to restart this tomorrow after discussing with the nursing staff the status of his wounds. 5. Chronic steroid therapy, he is on prednisone 5 mg daily which will delay wound healing. 6. Hyperlipidemia, continue atorvastatin 40 mg daily. 7. Chronic anxiety/depression. Continue Paxil 20 mg daily.
[2020-05-30] MEDS: PANTOPRAZOLE 40MG TAB (PROTONIX) PO SCH (10:15)
[2020-05-30] MEDS: FINASTERIDE 5 MG TAB PO SCH (10:16)
[2020-05-30] MEDS: ATORVASTATIN 20 MG TAB PO SCH (10:16)
[2020-05-30] MEDS: PARoxetine 20MG TABLET PO SCH (10:16)
[2020-05-30] MEDS: ASPIRIN 81MG ENTERIC TABLET PO SCH (10:17)
[2020-05-30] MEDS: predniSONE 5 MG TAB PO SCH (10:17)
[2020-05-30] MEDS: ACETAMINOPHEN 500 MG TAB PO SCH ×4 (10:17→20:16)
[2020-05-30] MEDS: AMIODARONE 200 MG TAB (PACERONE) PO SCH (10:52)
[2020-05-30 14:00] VITALS: BP 145/62
[2020-05-30] MEDS: predniSONE 2.5 MG TAB PO SCH (20:15)
[2020-05-30] MEDS: rOPINIRole 0.25 MG TAB(REQUIP) PO SCH (20:16)
[2020-05-30] MEDS: TAMSULOSIN 0.4 MG CAP PO SCH (20:16)
[2020-05-30 22:00] VITALS: BP 105/51
[2020-05-31 05:36] LABS: HEMATOCRIT 23.8 % (42.0-52.0); HEMOGLOBIN 7.4 g/dl (13.5-17.5); MEAN CORPUSCULAR HEMOGLOBIN 28.6 pg (27.0-33.0); MEAN CORPUSCULAR HGB CONC 31.1 g/dl (32.0-36.5); MEAN CORPUSCULAR VOLUME 91.9 fl (80.0-96.0); PLATELET COUNT, AUTOMATED 191 10^3/uL (150-450); RED BLOOD COUNT 2.59 10^6/uL (4.30-6.10)
[2020-05-31] MEDS: GABAPENTIN 100 MG CAP PO SCH ×2 (05:43→13:11)
[2020-05-31 05:55] LABS: BLOOD UREA NITROGEN 23 MG/DL (7-18); CALCIUM LEVEL 7.3 MG/DL (8.8-10.2); CARBON DIOXIDE LEVEL 31 MEQ/L (21-32); CHLORIDE LEVEL 107 MEQ/L (98-107); CREATININE FOR GFR 1.09 MG/DL (0.70-1.30); GLOMERULAR FILTRATION RATE > 60.0 (>35); GLUCOSE, FASTING 151 MG/DL (70-100); POTASSIUM SERUM 4.1 MEQ/L (3.5-5.1); SODIUM LEVEL 142 MEQ/L (136-145)
[2020-05-31 06:00] VITALS: BP 106/59
[2020-05-31] MEDS: SYMBICORT 160/4.5MCG INHALER 6GM INH SCH (08:13)
[2020-05-31 08:16] VITALS: BP 106/59
[2020-05-31] MEDS: atenoloL 25 MG TAB PO SCH (08:16)
[2020-05-31] MEDS: ASPIRIN 81MG ENTERIC TABLET PO SCH (08:56)
[2020-05-31] MEDS: PARoxetine 20MG TABLET PO SCH (08:57)
[2020-05-31] MEDS: PANTOPRAZOLE 40MG TAB (PROTONIX) PO SCH (08:57)
[2020-05-31] MEDS: FINASTERIDE 5 MG TAB PO SCH (08:57)
[2020-05-31] MEDS: AMIODARONE 200 MG TAB (PACERONE) PO SCH (08:57)
[2020-05-31] MEDS: ACETAMINOPHEN 500 MG TAB PO SCH ×2 (08:57→13:12)
[2020-05-31] MEDS: predniSONE 5 MG TAB PO SCH (08:57)
[2020-05-31] MEDS: ATORVASTATIN 20 MG TAB PO SCH (08:58)
[2020-05-31] MEDS ORDERED: traMADol 50 MG TAB PO PRN (09:05)
[2020-05-31] MEDS: APIXABAN 2.5 MG TAB (ELIQUIS) PO SCH (09:25)
[2020-05-31] MEDS ORDERED: GABA-1171 PO (09:59)
--- NOTE | 2020-05-31 10:31 | DSES ---
DISCHARGE SUMMARY DATE OF ADMISSION: 05/21/2020 DATE OF DISCHARGE: / / IT SENIOR ANALYST: Dr. Siri Hodges of Vascular Surgery. PRINCIPAL PROCEDURE: Arteriogram right lower extremity 05/19/2020 with angioplasty from the aorta to the toes due to heavily calcified plaque throughout the arterial tree. Status post right lower extremity arteriogram 05/24 with common iliac artery stent bilaterally, extension of stents to the external iliac bilaterally. SECONDARY DIAGNOSES: 1. Fall with left arm skin tear. 2. Acute blood loss anemia requiring a transfusion. 3. Anemia. 4. Chronic inflammation. 5. Chronic kidney disease stage 3A. 6. Atrial fibrillation. 7. Chronic steroid therapy. 8. Hyperlipidemia. 9. Chronic anxiety. 10. Depression. HISTORY: Pete Javed was admitted to the Hospitalist Service on 05/21 with pain in his left lower extremity with walking. He has a history of bilateral leg pain but primarily left lower extremity that was felt to be due to ischemia. HOSPITAL COURSE: He was admitted to a medical bed. Dr. Hodges saw him in consultation. Procedure as summarized above. Improvement of pain in his left lower extremity but not resolution. He still has intermittent pain and being treated with analgesics. He was going to be discharged a few days ago when he fell and had a large skin tear in his left upper extremity with blood loss requiring transfusion. He was watched for a few days, and now he is stable to go to rehab. SIGNIFICANT LABS: Today white count is 18.0 (on steroids), hemoglobin 7.4 which is stable, platelets 191. Sodium 142, potassium 4.1, BUN 23, creatinine 1.0, glucose 151. Iron studies showed anemia of chronic inflammation, low TIBC, high ferritin. B12 and folate are normal. Stool was positive for occult blood. Blood cultures are negative. Respiratory panel was negative. DISPOSITION: He is discharged to ARU. I have been in communication with his granddaughter, Amalia, and we discussed the plan, and she is agreeable to this. She points out that this patient was using tramadol four times a day regularly for about 10 years for pain, and it is unlikely we are going to control his pain without that. She is also aware of the heme-positive stool and need for follow up on that as an outpatient. She agrees to ARU. His activity is per ARU. Diet is no added salt. MEDICATIONS ON DISCHARGE: 1. Tramadol 50 mg q.6 hours p.r.n. 2. Paxil 20 mg daily. 3. Eliquis 2.5 mg b.i.d. 4. Bowel care with Fleets enemas and stool softeners. 5. Protonix 40 mg daily. 6. Gabapentin 200 mg q.8 hours. 7. GI cocktail as needed. 8. Amiodarone 200 mg daily. 9. Aspirin 81 mg daily. 10. Atorvastatin 40 mg daily. 11. Cardizem CD 120 mg daily. 12. Finasteride 5 mg daily. 13. Prednisone 5 mg in the morning and 2.5 mg in the evening. 14. Atenolol 25 mg b.i.d. 15. Requip 0.25 mg at bedtime. 16. Flomax 0.4 mg at bedtime. 17. Symbicort 160-4.5 two inhalations b.i.d. 18. Xopenex q.6 hours p.r.n. 19. MiraLax as needed. 20. Senokot S as needed. 21. Tylenol 1,000 mg q.6 hours p.r.n. for pain. Patient had heme positive stool, and he needs to have a shared decision making discussion with his primary care provider whether he wants to work this up at age 84. Granddaughter is aware of this. It looks like his Keppra 500 mg b.i.d. was discontinued on admission, and his torsemide 40 mg daily is currently on hold as well.
== END 2020-05-31 14:30 | DRG 253 ==
LOC: M ED 11:08 → EDBD 11:08 → M ED INP 17:25 → M MS5PR 20:35
PROVIDERS: ADMIT General Practice; ATTEND Family Medicine
PROC: 047D3DZ Dilation of Left Common Iliac Artery with Intraluminal Device, Percutaneous Approach (ICD-10-PCS; 2020-05-24)
PROC: 047H3DZ Dilation of Right External Iliac Artery with Intraluminal Device, Percutaneous Approach (ICD-10-PCS; 2020-05-24)
PROC: 047J3DZ Dilation of Left External Iliac Artery with Intraluminal Device, Percutaneous Approach (ICD-10-PCS; 2020-05-24)
PROC: B40DYZZ Plain Radiography of Aorta and Bilateral Lower Extremity Arteries using Other Contrast (ICD-10-PCS; 2020-05-24)
PROC: 047C3DZ Dilation of Right Common Iliac Artery with Intraluminal Device, Percutaneous Approach (ICD-10-PCS; principal; 2020-05-24 07:30)
PROC: 30233N1 Transfusion of Nonautologous Red Blood Cells into Peripheral Vein, Percutaneous Approach (ICD-10-PCS; 2020-05-29)
DX: I70.244 Atherosclerosis of native arteries of left leg with ulceration of heel and midfoot (principal); I48.20 Chronic atrial fibrillation, unspecified; J96.11 Chronic respiratory failure with hypoxia; D62 Acute posthemorrhagic anemia; N18.31 Chronic kidney disease, stage 3a; K44.9 Diaphragmatic hernia without obstruction or gangrene; G25.81 Restless legs syndrome; I49.5 Sick sinus syndrome; 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, or unspecified chronic kidney disease; I70.213 Atherosclerosis of native arteries of extremities with intermittent claudication, bilateral legs; Z66 Do not resuscitate; K21.9 Gastro-esophageal reflux disease without esophagitis; E78.5 Hyperlipidemia, unspecified; J44.9 Chronic obstructive pulmonary disease, unspecified; F03.90 Unspecified dementia, unspecified severity, without behavioral disturbance, psychotic disturbance, mood disturbance, and anxiety; K59.00 Constipation, unspecified; L97.528 Non-pressure chronic ulcer of other part of left foot with other specified severity; G62.9 Polyneuropathy, unspecified; S01.91XA Laceration without foreign body of unspecified part of head, initial encounter; W06.XXXA Fall from bed, initial encounter; S51.812A Laceration without foreign body of left forearm, initial encounter; N28.1 Cyst of kidney, acquired; Y92.230 Patient room in hospital as the place of occurrence of the external cause; K29.70 Gastritis, unspecified, without bleeding; N40.0 Benign prostatic hyperplasia without lower urinary tract symptoms; Z79.01 Long term (current) use of anticoagulants; Z79.82 Long term (current) use of aspirin; Z79.899 Other long term (current) drug therapy; Z99.81 Dependence on supplemental oxygen; Z95.0 Presence of cardiac pacemaker; Z88.1 Allergy status to other antibiotic agents; Z88.8 Allergy status to other drugs, medicaments and biological substances; Z86.16 Personal history of COVID-19; Z79.52 Long term (current) use of systemic steroids

== ENCOUNTER 2020-05-31 10:59 | Inpatient (IN) | payer MEDICARE ==
[~2020-05-31] VITALS: Ht 167.6 cm; Wt 64.7 kg
[~2020-05-31 10:59] MED LIST changes: +ASPI81TA26 PO; +ATOR40TA75 PO
[2020-05-31] MEDS ORDERED: FLEET ENEMA PR PRN (13:45)
[2020-05-31] MEDS ORDERED: MIRALAX *UNIT DOSE* 17GM PACKET PO PRN (13:45)
[2020-05-31] MEDS ORDERED: LEVALBUTEROL 1.25 MG/0.5 ML CONCENTRATE NEB INH PRN (13:45)
[2020-05-31 14:00] VITALS: BP 130/62
[2020-05-31] MEDS: ACETAMINOPHEN 500 MG TAB PO SCH ×2 (16:51→20:35)
[2020-05-31 20:00] VITALS: BP 133/62
[2020-05-31] MEDS: SYMBICORT 160/4.5MCG INHALER 6GM INH SCH (20:00)
[2020-05-31] MEDS: GABAPENTIN 100 MG CAP PO SCH (20:35)
[2020-05-31] MEDS: rOPINIRole 0.25 MG TAB(REQUIP) PO SCH (20:35)
[2020-05-31] MEDS: traMADol 50 MG TAB PO PRN (20:35)
[2020-05-31] MEDS: TAMSULOSIN 0.4 MG CAP PO SCH (20:36)
[2020-05-31] MEDS: APIXABAN 2.5 MG TAB (ELIQUIS) PO SCH (20:36)
[2020-05-31] MEDS: predniSONE 2.5 MG TAB PO SCH (20:36)
[2020-05-31] MEDS: atenoloL 25 MG TAB PO SCH (20:37)
[2020-05-31] MEDS ORDERED: DOCUSATE SODIUM 100MG CAPSULE PO PRN (21:00)
[2020-05-31] MEDS ORDERED: SENNA 8.6 MG TAB (SENOKOT) PO SCH (21:00)
[2020-05-31] MEDS ORDERED: SENNA 8.6 MG TAB (SENOKOT) PO PRN (21:00)
[2020-05-31] MEDS ORDERED: DOCUSATE SODIUM 100MG CAPSULE PO SCH (21:00)
[2020-06-01] VITALS (13 sets, daily range): BP systolic 93–133; BP diastolic 46–62
[2020-06-01 06:05] LABS: MEAN CORPUSCULAR HEMOGLOBIN 28.5 pg (27.0-33.0); MEAN CORPUSCULAR HGB CONC 30.9 g/dl (32.0-36.5); MEAN CORPUSCULAR VOLUME 92.1 fl (80.0-96.0); PLATELET COUNT, AUTOMATED 198 10^3/uL (150-450); RED BLOOD COUNT 2.39 10^6/uL (4.30-6.10)
[2020-06-01 06:22] LABS: HEMOGLOBIN 6.8 g/dl (13.5-17.5)
[2020-06-01 06:39] LABS: ALBUMIN 1.8 GM/DL (3.2-5.2); ALT/SGPT 13 U/L (12-78); BILIRUBIN,TOTAL 0.3 MG/DL (0.2-1.0); BLOOD UREA NITROGEN 15 MG/DL (7-18); CALCIUM LEVEL 7.8 MG/DL (8.8-10.2); CARBON DIOXIDE LEVEL 31 MEQ/L (21-32); CHLORIDE LEVEL 108 MEQ/L (98-107); CREATININE FOR GFR 0.94 MG/DL (0.70-1.30); GLOMERULAR FILTRATION RATE > 60.0 (>35); GLUCOSE, FASTING 126 MG/DL (70-100); POTASSIUM SERUM 3.9 MEQ/L (3.5-5.1); SODIUM LEVEL 142 MEQ/L (136-145); TOTAL PROTEIN 4.8 GM/DL (6.4-8.2)
[2020-06-01 06:47] LABS: LYMPHOCYTES 14 % (16-44); MONOCYTES 6 % (0-5); NEUTROPHILS 78 % (28-66)
[2020-06-01 06:48] LABS: PLATELET ESTIMATE NORMAL (NORMAL)
[2020-06-01] MEDS: SYMBICORT 160/4.5MCG INHALER 6GM INH SCH ×2 (07:04→20:03)
[2020-06-01] MEDS: traMADol 50 MG TAB PO PRN ×2 (08:42→20:21)
[2020-06-01] MEDS ORDERED: PANTOPRAZOLE 40MG TAB (PROTONIX) PO SCH (09:00)
[2020-06-01] MEDS ORDERED: predniSONE 2.5 MG TAB PO SCH (09:00)
--- NOTE | 2020-06-01 09:37 | HPEPDOC ---
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 He underwent an upper GI series which did not show any notable pathology and continued on ppi and carafate for suspected gastritis. He complained of persistent LE pain and was seen by vascular surgery for a left LE ulcer and underwent a right lower extremity arteriogram on 05-24-20 with common iliac artery stent bilaterally, extension of the stents into the external iliac bilaterally with plan for outpatient left common femoral endarterectomy. His leg pain improved after this, however he had an unwitnessed fall and developed left arm bleeding with blood loss anemia requiring blood transfusion. He was evaluated by therapy, found to be very weak and requiring assistance with ambulation and ADLs, deemed medically appropriate for discharge to ARU on 05-31-20. REVIEW OF SYSTEMS: The following is a completed review of systems and has been reviewed. Review of systems otherwise unremarkable. PAIN: Patient self reports left foot pain EYES: No recent vision changes EARS, NOSE, & THROAT: No throat pain, or dysphagia, or rhinorrhea CARDIOVASCULAR: Denies chest pain or palpitations PULMONARY: Denies shortness of breath GASTROINTESTINAL: Denies constipation/diarrhea GENITOURINARY: denies dysuria MUSCULOSKELETAL: generalized weakness NEUROLOGICAL:peripheral polyneuropathy HEMATOLOGICAL: +anemia SKIN: LUE skin tears and LLE ischemic ulcers PSYCHIATRIC: Unremarkable All other review of systems found to be negative. PAST MEDICAL HISTORY: as per HPI PAST SURGICAL HISTORY: as per HPI ALLERGIES: Please see below. MEDICATIONS: Please see below. FAMILY HISTORY: cardiac SOCIAL HISTORY: former smoker, no etoh/illicit drugs DIET: low sodium PHYSICAL EXAMINATION: VITAL SIGNS: Please see below. GENERAL: Pleasant and cooperative. mild distress. HEENT: PERRL. Extraocular movements intact. Clear conjunctiva CARDIOVASCULAR: Regular rate and rhythm. No murmurs, rubs, or gallops LUNGS: Clear to auscultation bilaterally. No wheezes. No rhonchi ABDOMEN: Soft, nontender, nondistended. Positive bowel sounds. Normal active bowel sounds NEUROLOGICAL: Alert and oriented times three. Cranial nerves II through XII grossly intact. Sensation diminished to light touch bilat LE EXTREMITIES: 5-\5 strength bilateral upper extremities. 5-\5 strength right lower extremity.4/5 strength in left lower extremity. SKIN: sacrum with blanchable erythema, left heel DTI, multiple dry ulcers on bony prominences of left foot left arm and hand- ecchymotic with open wound, no exudate LABORATORY DATA: Please see below. IMAGING:Imaging documentation personally reviewed by record FUNCTIONAL STATUS: Premorbid: Modified Independent with all activities of daily life as well as mobility On Admission: Mod-Max for bed mobility, dressing, toileting, bathing, ambulation GOALS: Mod-I ambulation household distances, dressing, toileting, bathing ASSESSMENT:84-year-old M with past medical history of PAD, COPD, Afib who presen ts status post right LE angioplasty procedures with anemia PLAN: 1. Rehab- PT/OT advance gait and ADLs, may need wheelchair level at first until left foot pain improves 2. neuro- c/u gabapentin for longstanding peripheral polyneuropathy due to PAD -restless leg c/u requip 3. cardia- hx of afib with sinus-tachy syndrome with PM and on amiodarone, atenolol and diltiazem, s/p watchmen's procedure, on eliquis -medicine consulted to assist in overall management -HLD- c/u statin 3. Vasc- s/p extensive RLE angioplasty performed 05-24-20 on eliquis and ASA, plan was for outpatient left sided common femoral endarterectomy, patient with considerable left foot pain and unable to bear weight c/u oral pain management, vascular surgery available again 06-05-20 will consult then 4. resp- copd on , c/u breathing tx, c/u chronic steroids 5. - hx of BPH c/u flomax and proscar 6. GI- +FOBT while on Eliquis and ASA, c/u sucralfate and ppi for ppx- patient declining colonoscopy at this time, will readdress during hospital stay 7. Skin- dressing changes per instructions 8. Pain- c/u tramadol and tylenol 9. Heme- patient with chronic anemia, will consult renal to assist in management, blood transfusions to be given for overnight drop in Hgb 10. DVT ppx- on eliquis 11. Dispo- tbd POST ADMISSION PHYSICIAN EVALUATION: Medical and functional status: Description of medical status, medical assessment: As above. Rehabilitation diagnosis and current and prior cold morbid medical conditions as above. Risk of complications and plans to mitigate them as above. Description of functional status current status is as above. Prior status as above. Status compared to preadmission: There are no clinically significant differences between the patient's current status and the information described on the preadmission screening document. Treatment plan anticipated: Treatment plan is as described above. Required disciplines including physical therapy, occupational therapy, others as noted above Intensity of services: 3 hours a day, 6 days a week. Special considerations: There are no specific special or safety considerations that would likely preclude immediate implementation of an intensive rehabilitation program or subsequently influence the plan of care. ATTESTATION: Considering all the information above, it is my best judgment that this patient requires intensive rehabilitation therapy as described above and an inpatient hospital environment due to the complexity of nursing, medical, and rehabilitation needs required by the patient. Furthermore, this patient can reasonably be expected to participate in an benefit from an inpatient rehabilitation stay with an interdisciplinary team approach to the delivery of rehabilitation care under the direction and supervision of rehabilitation physician PROGNOSIS: fair ESTIMATED LENGTH OF STAY:10-14 days. PROJECTED DISCHARGE DESTINATION: Home with family support and any durable medical equipment required to increase functional safety and mobility. TIME SPENT COUNSELING AND COORDINATING INITIAL CARE: Greater than 70 minutes. Vital Signs Vital Sign - Last 24 Hours 05/31/20 05/31/20 05/31/20 05/31/20 14:00 20:00 20:00 20:35 Temp 98.9 98.7 98.7 Pulse 70 70 70 Resp 18 18 18 18 B/P (MAP) 130/62 (84) 133/62 (85) 133/62 (85) Pulse Ox 98 96 96 O2 Delivery Nasal Cannula Nasal Cannula Room Air Nasal Cannula O2 Flow Rate 2.0 2.0 2.0 05/31/20 05/31/20 05/31/20 06/01/20 20:37 21:12 22:27 05:13 Temp 98.1 Pulse 70 72 Resp 18 16 B/P (MAP) 133/62 133/62 (85) Pulse Ox 98 O2 Delivery Nasal Cannula Nasal Cannula O2 Flow Rate 2.0 2.0 2.0 06/01/20 08:42 Resp 18 Laboratory Data CBC/BMP Laboratory Tests 06/01/20 05:46 Labs 24H Laboratory Tests 2 06/01/20 05:46: Immature Granulocyte % (Auto) , Neutrophils (%) (Auto) , Nucleated Red Blood Cells % (auto) 0.0, Neutrophils 78H, Band Neutrophils 2, Lymphocytes (Manual) 14L, Monocytes (Manual) 6H, Red Blood Cell Morphology NORMAL, Platelet Estimate NORMAL, Anion Gap 3L, Glomerular Filtration Rate > 60.0, Calcium Level 7.8L, Total Bilirubin 0.3, Aspartate Amino Transf (AST/SGOT) 15, Alanine Aminotransferase (ALT/SGPT) 13, Alkaline Phosphatase 137H, Total Protein 4.8L, Albumin 1.8L, Albumin/Globulin Ratio 0.6 Home Medications Scheduled Amiodarone HCl (Amiodarone HCl) 200 Mg Tablet, 200 MG PO DAILY, (Reported) Apixaban (Eliquis) 2.5 Mg Tab, 2.5 MG PO BID, (Reported) Aspirin (Aspirin EC) 81 Mg Tablet.dr, 81 MG PO DAILY, (Reported) NEW SCRIPT FROM 05/20/20 Atenolol (Atenolol) 25 Mg Tablet, 25 MG PO BID, (Reported) Atorvastatin Calcium (Atorvastatin Calcium) 40 Mg Tablet, 40 MG PO DAILY, (Reported) NEW SCRIPT FROM 05/20/20 Budesonide/Formoterol (Symbicort 160-4.5 Mcg Inhaler) 6 Gm Hfa.aer.ad, 2 PUFF INH BID, (Reported) Calcium Carbonate/Vitamin D3 (Calcium 600 mg-Vit D3 10Mcg Tb) 600 Mg-400 Tablet, 1 TAB PO DAILY, (Reported) Diltiazem HCl (Diltiazem HCl) 120 Mg Tablet, 120 MG PO DAILY, (Reported) Ferrous Gluconate (Iron) 240 Mg Tablet, 240 MG PO DAILY, (Reported) Finasteride (Finasteride) 5 Mg Tab, 5 MG PO DAILY, (Reported) Gabapentin (Gabapentin) 100 Mg Capsule, 100 MG PO TID, (Reported) Gabapentin (Gabapentin) 100 Mg Capsule, 200 MG PO Q8H [place]-3 Fatty Acids/Fish Oil (Fish Oil 1,000 mg Capsule) 1 Each Capsule, 1 CAP PO DAILY, (Reported) Omeprazole (Omeprazole) 40 Mg Capsule.dr, 40 MG PO DAILY, (Reported) Paroxetine (Paroxetine HCl) 10 Mg Tablet, 10 MG PO DAILY, (Reported) Prednisone (Prednisone) 5 Mg Tab, 5 MG PO QAM, (Reported) Prednisone (Prednisone) 2.5 Mg Tablet, 2.5 MG PO QPM, (Reported) Ropinirole HCl (Ropinirole HCl) 0.25 Mg Tablet, 0.25 MG PO QHS, (Reported) Tamsulosin Hcl (Tamsulosin HCl) 0.4 Mg Capsule, 0.4 MG PO QHS, (Reported) Scheduled PRN Acetaminophen (Acetaminophen) 500 Mg Tablet, 1,000 MG PO Q8H PRN for PAIN, (Reported) TAKES WITH TRAMADOL PRN Levalbuterol Hydrochloride (Xopenex Hfa) 15 Gm Hfa.aer.ad, 2 PUFF INH Q6H PRN for SHORTNESS OF BREATH, (Reported) Tramadol HCl (Tramadol HCl) 50 Mg Tablet, 50 MG PO Q6H PRN for PAIN, (Reported) Allergies Coded Allergies: petrolatum,white (Verified Allergy, Mild, ITCH/RASH, 09/21/19) fluconazole (Verified Allergy, Unknown, UNKNOWN REACTION, 09/16/19) fluticasone (Verified Allergy, Unknown, UNKNOWN REACTION, 09/16/19) metformin (Verified Allergy, Unknown, UNKNOWN REACTION, 09/16/19) promethazine (Verified Adverse Reaction, Intermediate, Altered Mental Status , 09/21/19) azithromycin (Verified Adverse Reaction, Unknown, LOWERS BP, 09/16/19) clarithromycin (Verified Adverse Reaction, Unknown, LOWERS BP, 09/16/19) ondansetron (Verified Adverse Reaction, Unknown, Hallucinations, 05/27/20) Pt states he experiences hallucinations with medication procaine (Verified Adverse Reaction, Unknown, DIZZINESS, 09/16/19) A-FIB/CHADSVASC A-FIB History Current/History of A-Fib/PAF?: Yes Current PO Anticoag Therapy: Yes JOSEP RAJAN MD Jun 01, 2020 09:37
[2020-06-01] MEDS ORDERED: traMADol 50 MG TAB PO ONE (10:00)
[2020-06-01] MEDS: GABAPENTIN 100 MG CAP PO SCH ×3 (10:10→20:20)
[2020-06-01] MEDS: ACETAMINOPHEN 500 MG TAB PO SCH ×4 (10:11→20:21)
[2020-06-01] MEDS: APIXABAN 2.5 MG TAB (ELIQUIS) PO SCH ×2 (10:11→20:20)
[2020-06-01] MEDS: ASPIRIN 81MG ENTERIC TABLET PO SCH (10:12)
[2020-06-01] MEDS: predniSONE 5 MG TAB PO SCH (10:12)
[2020-06-01] MEDS: PARoxetine 20MG TABLET PO SCH (10:12)
[2020-06-01] MEDS: ATORVASTATIN 20 MG TAB PO SCH (10:13)
[2020-06-01] MEDS: AMIODARONE 200 MG TAB (PACERONE) PO SCH (10:13)
[2020-06-01] MEDS: FINASTERIDE 5 MG TAB PO SCH (10:14)
[2020-06-01] MEDS: atenoloL 25 MG TAB PO SCH ×2 (10:15→20:23)
[2020-06-01] MEDS ORDERED: FUROSEMIDE 20MG/2ML VIAL (J1940) IV ONE (12:00)
[2020-06-01] MEDS ORDERED: FERRIC CARBOXYMALTOSE INJ 750 MG in NS 250 ML IV ONE (12:00)
[2020-06-01] MEDS: SUCRALFATE 1 GM TAB PO SCH (18:04)
[2020-06-01] MEDS: IRON SUCROSE 100 MG in NS 100 ML OVER 1 HR IV SCH (18:04)
[2020-06-01] MEDS: MAGNESIUM SULFATE GRANULES(EPSOM SALT) 1LB TOP SCH (20:10)
[2020-06-01] MEDS: rOPINIRole 0.25 MG TAB(REQUIP) PO SCH (20:19)
[2020-06-01] MEDS: TAMSULOSIN 0.4 MG CAP PO SCH (20:20)
[2020-06-01] MEDS: PANTOPRAZOLE 40MG TAB (PROTONIX) PO SCH (20:20)
[2020-06-01] MEDS: predniSONE 2.5 MG TAB PO SCH (20:20)
[2020-06-02] MEDS ORDERED: CALCIUM CARBONATE 500 MG CHEW U/D PO PRN (03:20)
[2020-06-02 05:17] LABS: HEMATOCRIT 29.7 % (42.0-52.0); HEMOGLOBIN 9.6 g/dl (13.5-17.5); MEAN CORPUSCULAR HEMOGLOBIN 29.5 pg (27.0-33.0); MEAN CORPUSCULAR HGB CONC 32.3 g/dl (32.0-36.5); MEAN CORPUSCULAR VOLUME 91.4 fl (80.0-96.0); PLATELET COUNT, AUTOMATED 221 10^3/uL (150-450); RED BLOOD COUNT 3.25 10^6/uL (4.30-6.10)
[2020-06-02 05:21] VITALS: BP 136/62
[2020-06-02 05:22] LABS: WHITE BLOOD COUNT 19.1 10^3/uL (4.0-10.0)
[2020-06-02 05:28] LABS: ATYPICAL LYMPH 1 % (0-5); EOSINOPHILS 1 % (0-3); LYMPHOCYTES 3 % (16-44); MONOCYTES 9 % (0-5); NEUTROPHILS 86 % (28-66); PLATELET ESTIMATE NORMAL (NORMAL)
[2020-06-02 05:29] LABS: POIKILOCYTOSIS 1+
[2020-06-02 05:42] LABS: BLOOD UREA NITROGEN 15 MG/DL (7-18); CALCIUM LEVEL 7.6 MG/DL (8.8-10.2); CARBON DIOXIDE LEVEL 31 MEQ/L (21-32); CHLORIDE LEVEL 107 MEQ/L (98-107); CREATININE FOR GFR 0.97 MG/DL (0.70-1.30); GLOMERULAR FILTRATION RATE > 60.0 (>35); GLUCOSE, FASTING 90 MG/DL (70-100); SODIUM LEVEL 141 MEQ/L (136-145)
[2020-06-02] MEDS: SYMBICORT 160/4.5MCG INHALER 6GM INH SCH ×2 (07:28→19:37)
[2020-06-02] MEDS: SUCRALFATE 1 GM TAB PO SCH ×3 (08:23→16:38)
[2020-06-02] MEDS: ASPIRIN 81MG ENTERIC TABLET PO SCH (08:24)
[2020-06-02] MEDS: traMADol 50 MG TAB PO PRN (08:24)
[2020-06-02] MEDS: APIXABAN 2.5 MG TAB (ELIQUIS) PO SCH ×2 (08:24→21:31)
[2020-06-02] MEDS: AMIODARONE 200 MG TAB (PACERONE) PO SCH (08:24)
[2020-06-02] MEDS: PANTOPRAZOLE 40MG TAB (PROTONIX) PO SCH ×2 (08:24→21:31)
[2020-06-02] MEDS: GABAPENTIN 100 MG CAP PO SCH ×4 (08:25→21:31)
[2020-06-02] MEDS: PARoxetine 20MG TABLET PO SCH (08:25)
[2020-06-02] MEDS: predniSONE 5 MG TAB PO SCH (08:25)
[2020-06-02] MEDS: FINASTERIDE 5 MG TAB PO SCH (08:25)
[2020-06-02] MEDS: ATORVASTATIN 20 MG TAB PO SCH (08:26)
[2020-06-02] MEDS: atenoloL 25 MG TAB PO SCH ×2 (08:26→21:31)
[2020-06-02] MEDS: ACETAMINOPHEN 500 MG TAB PO SCH ×4 (08:26→21:31)
[2020-06-02] MEDS ORDERED: IRON SUCROSE 100MG 5ML VIAL (J1756 PER 1MG) IV SCH (09:00)
[2020-06-02 14:00] VITALS: BP 141/69
[2020-06-02] MEDS: IRON SUCROSE 100 MG in NS 100 ML OVER 1 HR IV SCH (14:35)
--- NOTE | 2020-06-02 15:20 | CR ---
INPATIENT CONSULTATION DATE: 06/01/2020 REQUESTING PHYSICIAN: Miri Bruno MD. CONSULTING PHYSICIAN: Mingo Ordoñez DO. REASON FOR CONSULTATION: Symptomatic anemia. HISTORY OF PRESENT ILLNESS: Pete Javed is an 84-year-old male with a past medical history of chronic atrial fibrillation with pacemaker due to tachy-ofe syndrome and status post WATCHMAN procedure on chronic low dose Eliquis anticoagulation, peripheral polyneuropathy, history of C. difficile diarrhea, dementia, CKD stage 3, restless leg syndrome, chronic anemia with recent FOBT positivity, COPD on chronic home oxygen, peripheral arterial disease status post multiple vascular procedures performed on May 19, 2020 after which he was discharged on both Eliquis and aspirin and subsequently developed epigastric pain and weakness and returned to the Emergency Room on May 21 and underwent an upper GI series and was put on proton pump inhibitor and Carafate for suspected gastritis. He was anemic during that admission with hemoglobin in the 7s and required 2 units of packed red blood cells transfusion. An FOBT was found to be positive. He complained of persistent left lower extremity pain and was again seen by vascular surgery for an ulcer and underwent arteriogram on May 24 with common iliac artery stent bilaterally with plan for outpatient femoral endarterectomy. The patient continued to have leg pain mostly in the left lower extremity and subsequently had an unwitnessed fall and trauma to the left arm with bleeding and patient was found to be weak and requiring assistance with ambulation and activities of daily living and was discharged to the Acute Rehabilitation Unit on May 31, 2020. Patient tells me that there has been discussion regarding colonoscopy for himself for more than a year and he has had repeated blood transfusions, but has not yet had a colonoscopy arranged although he does wish to have one done at this point. Blood work today showed stable renal function with a creatinine of 0.9, but hemoglobin of 6.8 and nephrology evaluation was requested for help in the management of his anemia. PAST MEDICAL HISTORY: 1. CKD stage 3. 2. Peripheral arterial disease. 3. Bilateral renal cysts. 4. Restless legs. 5. 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 6. Chronic atrial fibrillation with cardiac ablation. 7. Hypertension. 8. Reflux. 9. Hiatal hernia. 10. Dyslipidemia. 11. Chronic hypoxic respiratory failure on 2 liters of oxygen. 12. COPD. 13. History of COVID pneumonia. 14. History of C. difficile with colonization. 15. Metabolic encephalopathy. 16. Dementia. 17. Colonic polyps. PAST SURGICAL HISTORY: 1. Permanent pacemaker. 2. WATCHMAN procedure. 3. Cardiac ablation. 4. Multiple angioplasties of the lower extremities. 5. Multiple vascular procedures for peripheral arterial disease including a recent common iliac artery stent. 6. Endoscopy. ALLERGIES: 1. FLUCONAZOLE. 2. FLUTICASONE. 3. METOPROLOL. 4. PETROLATUM. 5. AZITHROMYCIN. 6. clarithromycin. 7. procaine. 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 His is on Hospice. He is an ex-smoker. No drug or alcohol use. FAMILY HISTORY: Significant for coronary artery disease. REVIEW OF SYSTEMS: Constitutional: Reports generalized weakness and fatigue. Eyes: Denies visual changes or tearing. ENT: Denies epistaxis or rhinorrhea. Cardiac: Reports pacemaker, WATCHMAN procedure. Denies chest pain or palpitations. He has a history of atrial fibrillation. Respiratory: Reports COPD on chronic home oxygen. Gastrointestinal: Reports a hiatal hernia, colonic polyps. Denies vomiting or diarrhea. Genitourinary: Denies dysuria or trouble voiding. Endocrine: Denies history of diabetes or thyroid issues. Musculoskeletal: Reports pain in the left leg and generalized weakness and muscle wasting. Hematologic: Reports anemia and blood transfusions. Psychiatric: Reports depression. The remainder of the review of systems is negative or as per HPI. PHYSICAL EXAMINATION: Temperature 97.7, pulse 70, respiratory rate 18, blood pressure 93/52, saturating 96% on 2 liter nasal cannula. General: Patient is seen in the Acute Rehabilitation Unit, elderly and frail appearing male in no apparent distress. HEENT: Extraocular muscles are intact. There is conjunctival pallor. He has a frail body habitus. His tongue is moist. Neck: Supple. Jugular veins are not elevated. Chest: There is a pacemaker in the left chest wall. Heart: Sounds are irregular. There is no peripheral edema. Lungs: Symmetric air entry, no crackle or rale. Abdomen: Soft and nontender. Extremities: Negative for edema in the legs. There are dressings all over the left arm. There is muscle wasting. Skin: Shows pallor. Neurologic: He is oriented times 3, at baseline mentation. Psychiatric: He is tearful. LABORATORY DATA: White count 15, hemoglobin 6.8, platelet count 198. Sodium 142, potassium 3.9, bicarbonate 31, BUN 15, creatinine 0.9, albumin 1.8. Iron 31, transferrin saturation 16%. INPATIENT MEDICATIONS: 1. I ordered Venofer 100 mg I.V. daily times 4 doses. He is also on: 2. Tylenol 1 gram by mouth four times a day. 3. Amiodarone 200 mg by mouth daily. 4. Eliquis 2.5 mg by mouth twice a day. 5. Aspirin 81 mg by mouth daily.\ 6. Atenolol 25 mg by mouth twice a day. 7. Atorvastatin 40 mg by mouth daily. 8. Symbicort 2 puffs inhaled twice a day. 9. Diltiazem 120 mg by mouth daily. 10. Docusate p.r.n. 11. Finasteride 5 mg by mouth daily. 12. Lasix 20 mg I.V. times 1 dose. 13. Gabapentin 200 mg by mouth three times a day. 14. Protonix 40 mg by mouth twice a day. 15. Paxil 20 mg by mouth daily. 16. Prednisone 2.5 mg by mouth every evening 17. Prednisone 5 mg by mouth daily. 18. Ropinirole 0.25 mg by mouth at bedtime. 19. Senokot 1 tablet by mouth at bedtime p.r.n. 20. Sucralfate 1 gram by mouth with meals. 21. Flomax 0.4 mg by mouth at bedtime. 22. Tramadol p.r.n. PROBLEMS: 1. Chronic anemia with acute worsening: Labs are reviewed back to summer and I note that the patient is chronically anemic with most of his hemoglobins around 8-9. He became acutely anemic while he was on the medical side of the hospital secondary to bleeding from the left arm after a fall and he did receive 2 units of packed red blood cells while he was on the medical side of the hospital. The patient is also FOBT positive and he is on aspirin and Eliquis along with chronic prednisone and so there is a high suspicion for some slow GI bleed and given his ongoing anticoagulation I feel he is going to need recurrent packed red blood cells transfusions and would probably benefit from having an upper and lower scope at some point in the near future. Laboratory studies also show iron deficiency and Venofer is ordered. I would not start him on erythropoietin stimulating agent at this time given his excellent renal function and likely adequate endogenous production of erythropoietin. 2. Probable GI bleed: Patient was FOBT positive (stool specimen checked on medical side of hospital). He is on Protonix 40 mg by mouth twice a day along with Carafate. Risk factors for worsening GI bleed include aspirin, Eliquis and chronic prednisone. He has been significantly anemic for at least the past 2 years and I suggest that he follow up with gastroenterology for EGD and colonoscopy in the near future.
[2020-06-02] MEDS ORDERED: PINK BISMUTH SUSP 524MG/30ML ORAL SYRINGE PO PRN (16:05)
[2020-06-02] MEDS: MAGNESIUM SULFATE GRANULES(EPSOM SALT) 1LB TOP SCH (16:39)
[2020-06-02 20:20] VITALS: BP 113/58
--- NOTE | 2020-06-02 20:28 | IPN ---
NEPHROLOGY PROGRESS NOTE DATE: 06/02/2020 SUBJECTIVE: Patient seen and examined this morning at the bedside. He complains of ongoing left heel and left foot pain. He received 2 units packed red blood cells yesterday with 20 mg intravenous (IV) Lasix as well. He also has received two doses of Venofer now. He denies shortness of breath and denies any trouble voiding. OBJECTIVE: VITAL SIGNS: Temperature 98.5, pulse 70, respiratory rate 20, blood pressure 149/69, saturating 97% on 2 liters nasal cannula. INTAKE AND OUTPUT: Yesterday shows equivalent fluid balance. Weight in the bed scale today 68 kg. GENERAL: Patient is seen lying in bed, elderly, frail-appearing male with pallor and in no apparent distress. HEAD: Extraocular muscles are intact. His tongue is moist. NECK: Supple. His jugular veins are not elevated. Nasal cannula is in place. CHEST: Heart sounds are irregular. There is a pacemaker in the left chest wall. There is no peripheral edema. LUNGS: Symmetric air entry. No crackle or rale. ABDOMEN: Soft and nontender. EXTREMITIES: Negative for edema. His feet are propped up with pillows. There is significant muscle wasting. There is a deep tissue injury to the left heel and there are dry ulcers noted of the left foot. His left arm has fresh dressings on it. SKIN: Shows pallor. NEUROLOGIC: He is oriented times three, at baseline mentation. LABORATORY STUDIES: Today's labs show white count 19.1, hemoglobin 9.6, platelets 221. Sodium 141, potassium 4.0, bicarbonate 31, creatinine 0.9. Blood cultures times two sets have been sent and are pending. INPATIENT MEDICATIONS: He continues on Venofer 100 mg IV daily with two doses given so far out of four. He was started yesterday on as needed Tums. His remainder of medications are unchanged as compared to yesterday. PROBLEMS: 1. Acute on chronic normocytic anemia. Labs are reviewed back to 2019, which show chronic anemia with most hemoglobins around 8-9. However, he became acutely anemic while on the medical side of the hospital secondary to bleeding from the left arm after a fall and he did receive 2 units of packed red blood cells while he was on the medical side of the hospital. He was also found to be fecal occult blood test (FOBT) positive, but he does continue on chronic aspirin and Eliquis (Watchman procedure, atrial fibrillation) along with chronic prednisone and he may probably have some slow GI bleed. He received 2 more units of packed red blood cells in the rehabilitation unit and a dose of IV Lasix as well. He is going to discuss with his primary as an outpatient regarding feasibility regarding investigational scopes, if he can tolerate them. He continues on Venofer with a cumulative dose of 400 mg ordered. 2. Leukocytosis. White count has been rising. Patient is on prednisone. Blood cultures were sent today and pending. He did have blood cultures on May 21, 2020 times two sets that had no growth. He also had a negative urine culture on May 29, 2020.
[2020-06-02] MEDS: TAMSULOSIN 0.4 MG CAP PO SCH (21:30)
[2020-06-02] MEDS: rOPINIRole 0.25 MG TAB(REQUIP) PO SCH (21:30)
[2020-06-02] MEDS: predniSONE 2.5 MG TAB PO SCH (21:31)
[2020-06-03 06:09] VITALS: BP 151/72
[2020-06-03 07:09] LABS: HEMATOCRIT 27.4 % (42.0-52.0); HEMOGLOBIN 8.5 g/dl (13.5-17.5); MEAN CORPUSCULAR HEMOGLOBIN 28.5 pg (27.0-33.0); MEAN CORPUSCULAR VOLUME 91.9 fl (80.0-96.0); PLATELET COUNT, AUTOMATED 252 10^3/uL (150-450); RED BLOOD COUNT 2.98 10^6/uL (4.30-6.10)
[2020-06-03 07:15] LABS: WHITE BLOOD COUNT 20.5 10^3/uL (4.0-10.0)
[2020-06-03] MEDS: SYMBICORT 160/4.5MCG INHALER 6GM INH SCH ×2 (07:18→19:48)
[2020-06-03 08:11] LABS: EOSINOPHILS 2 % (0-3); METAMYELOCYTES 1 % (0-0); MICROCYTOSIS 1+; MONOCYTES 14 % (0-5); MYELOCYTES 2 % (0-0); NEUTROPHILS 78 % (28-66); OVALOCYTES 1+; PLATELET ESTIMATE NORMAL (NORMAL); SCHISTOCYTES 2+
[2020-06-03] MEDS: PARoxetine 20MG TABLET PO SCH (09:04)
[2020-06-03] MEDS: ATORVASTATIN 20 MG TAB PO SCH (09:04)
[2020-06-03] MEDS: FINASTERIDE 5 MG TAB PO SCH (09:04)
[2020-06-03] MEDS: GABAPENTIN 100 MG CAP PO SCH ×3 (09:05→20:23)
[2020-06-03] MEDS: SUCRALFATE 1 GM TAB PO SCH ×3 (09:05→17:03)
[2020-06-03] MEDS: atenoloL 25 MG TAB PO SCH ×2 (09:05→20:23)
[2020-06-03] MEDS: APIXABAN 2.5 MG TAB (ELIQUIS) PO SCH ×2 (09:05→20:23)
[2020-06-03] MEDS: predniSONE 5 MG TAB PO SCH (09:05)
[2020-06-03] MEDS: AMIODARONE 200 MG TAB (PACERONE) PO SCH (09:06)
[2020-06-03] MEDS: PANTOPRAZOLE 40MG TAB (PROTONIX) PO SCH ×2 (09:06→20:22)
[2020-06-03] MEDS: ASPIRIN 81MG ENTERIC TABLET PO SCH (09:06)
[2020-06-03] MEDS: ACETAMINOPHEN 500 MG TAB PO SCH ×4 (09:06→20:24)
[2020-06-03] MEDS: IRON SUCROSE 100 MG in NS 100 ML OVER 1 HR IV SCH (13:55)
[2020-06-03 14:00] VITALS: BP 107/56
[2020-06-03] MEDS: MAGNESIUM SULFATE GRANULES(EPSOM SALT) 1LB TOP SCH (16:16)
--- NOTE | 2020-06-03 18:23 | IPN ---
NEPHROLOGY PROGRESS NOTE DATE: 06/03/2020 SUBJECTIVE: Mr. Javed is seen this morning on his bedside. He is currently working with the physical therapist, sitting in the chair. He is complaining of pain in his left foot where he has ischemic changes in the heel and big toe. He also has a big dressing and hematoma on his left elbow due to fall. He denies any dyspnea or chest pain at present. PHYSICAL EXAMINATION: Temperature 99 degrees Fahrenheit, heart rate 75 per minute, respiratory rate 18 per minute, blood pressure 140/70 mmHg, oxygen saturation 97% on 2 liters oxygen. HEAD: Atraumatic. NECK: Supple and without jugular venous distention (JVD) or thyroid enlargement. HEART SOUNDS: Regular. LUNGS: Clear to auscultation.. ABDOMEN: Soft and nontender. Bowel sounds are normal. EXTREMITIES: Without any cyanosis or clubbing. Left big toe is slightly discolored and there are ischemic changes in the left heel also. He has a hematoma on his left elbow with a dressing on it. LABORATORY STUDIES: Today's labs show WBC 20.5, hemoglobin 8.5, hematocrit 27.4, platelets 282. Sodium 141, potassium 4.0, CO2 31, BUN 15, creatinine 0.97, glucose 90, calcium 7.6. Albumin was 1.8 on June 01, 2020. PROBLEMS: 1. Acute blood loss anemia. Patient has gradual worsening of anemia following transfusion. At this point, he is likely to require further transfusion as his stool was tested positive for occult blood. CBC will be checked again tomorrow morning. 2. Peripheral vascular disease. Patient has some ischemic changes in the left foot. He has been seen by vascular surgery and is likely to require angioplasty. 3. Protein calorie malnutrition. His albumin level is only 1.8. Patient reports that his appetite is better and I would recommend a high protein diet for him.
[2020-06-03 20:00] VITALS: BP 105/59
[2020-06-03] MEDS: rOPINIRole 0.25 MG TAB(REQUIP) PO SCH (20:23)
[2020-06-03] MEDS: TAMSULOSIN 0.4 MG CAP PO SCH (20:23)
[2020-06-03] MEDS: predniSONE 2.5 MG TAB PO SCH (20:23)
[2020-06-04] MEDS: traMADol 50 MG TAB PO PRN (01:34)
[2020-06-04 05:26] VITALS: BP 111/55
[2020-06-04] MEDS: SYMBICORT 160/4.5MCG INHALER 6GM INH SCH ×2 (07:18→20:09)
[2020-06-04] MEDS: atenoloL 25 MG TAB PO SCH ×2 (08:19→21:51)
[2020-06-04] MEDS: PARoxetine 20MG TABLET PO SCH (08:20)
[2020-06-04] MEDS: AMIODARONE 200 MG TAB (PACERONE) PO SCH (08:20)
[2020-06-04] MEDS: predniSONE 5 MG TAB PO SCH (08:20)
[2020-06-04] MEDS: ATORVASTATIN 20 MG TAB PO SCH (08:20)
[2020-06-04] MEDS: GABAPENTIN 100 MG CAP PO SCH ×3 (08:20→21:00)
[2020-06-04] MEDS: PANTOPRAZOLE 40MG TAB (PROTONIX) PO SCH ×2 (08:21→21:50)
[2020-06-04] MEDS: ACETAMINOPHEN 500 MG TAB PO SCH ×4 (08:21→21:50)
[2020-06-04] MEDS: ASPIRIN 81MG ENTERIC TABLET PO SCH (08:21)
[2020-06-04] MEDS: SUCRALFATE 1 GM TAB PO SCH ×3 (08:21→17:09)
[2020-06-04] MEDS: APIXABAN 2.5 MG TAB (ELIQUIS) PO SCH ×2 (08:21→21:51)
[2020-06-04] MEDS: FINASTERIDE 5 MG TAB PO SCH (08:21)
--- NOTE | 2020-06-04 12:45 | IPN ---
NEPHROLOGY PROGRESS NOTE DATE: 06/04/2020 SUBJECTIVE: Mr. Javed is seen this morning on his bedside. He is not feeling well and reports some numbness on his tongue after taking his medications. His appetite is poor and he also has significant tremors. He spilled his coffee today and reports that he has difficulty feeding himself. He has no dyspnea or chest pain. Patient also complains of pain in his left foot where he has some ischemic changes. PHYSICAL EXAMINATION: Temperature 97.7 degrees Fahrenheit, heart rate 70 per minute, respiratory rate 18 per minute, blood pressure 142/65 mmHg, oxygen saturation 95% on 2 liters of oxygen. HEAD: Atraumatic. NECK: Supple and without jugular venous distention (JVD) or thyroid enlargement. HEART SOUNDS: Regular. LUNGS: Clear to auscultation. ABDOMEN: Soft and nontender. Bowel sounds are normal. EXTREMITIES: Without any cyanosis or clubbing. He has a dressing on his left elbow area and also left wrist today. He has multiple blisters on his left arm. Left heel and big toe has some ischemic changes. NEUROLOGIC: He is grossly intact without any focal deficit. LABORATORY STUDIES: Patient did not have any new labs done today. His previous labs have been reviewed. PROBLEMS: 1. Recurrent anemia. Patient has gastrointestinal (GI) blood loss, multiple skin blisters and has required transfusions in the past. He was transfused just a couple of days ago and is likely to require transfusion again. We will check his CBC tomorrow. 2. Peripheral vascular disease. Patient has significant peripheral vascular disease with prior angioplasty on his right leg. He is likely to require angioplasty on the left leg also.
[2020-06-04 14:00] VITALS: BP 125/64
[2020-06-04] MEDS: IRON SUCROSE 100 MG in NS 100 ML OVER 1 HR IV SCH (14:59)
[2020-06-04] MEDS: MAGNESIUM SULFATE GRANULES(EPSOM SALT) 1LB TOP SCH (17:10)
--- NOTE | 2020-06-04 19:24 | IPNPDOC ---
PM&R Progress Note DATE OF SERVICE: Jun 02, 2020 [employer] Progress Note Subjective: Patient reporting his left foot pain is more bearable today and he is wondering if he can try pepto bismol or tums for his chronic stomach pain. REVIEW OF SYSTEMS: The following is a completed review of systems and has been reviewed. Review of systems otherwise unremarkable. PAIN: Patient self reports left foot pain EYES: No recent vision changes EARS, NOSE, & THROAT: No throat pain, or dysphagia, or rhinorrhea CARDIOVASCULAR: Denies chest pain or palpitations PULMONARY: Denies shortness of breath GASTROINTESTINAL: Denies constipation/diarrhea, +gastric pain/nausea GENITOURINARY: denies dysuria MUSCULOSKELETAL: generalized weakness NEUROLOGICAL:peripheral polyneuropathy HEMATOLOGICAL: +anemia SKIN: LUE skin tears and LLE ischemic ulcers PSYCHIATRIC: Unremarkable All other review of systems found to be negative. PHYSICAL EXAMINATION: VITAL SIGNS: Please see below. GENERAL: Pleasant and cooperative. mild distress. HEENT: PERRL. Extraocular movements intact. Clear conjunctiva CARDIOVASCULAR: Regular rate and rhythm. No murmurs, rubs, or gallops LUNGS: Clear to auscultation bilaterally. No wheezes. No rhonchi ABDOMEN: Soft, nontender, nondistended. Positive bowel sounds. Normal active bowel sounds NEUROLOGICAL: Alert and oriented times three. Cranial nerves II through XII grossly intact. Sensation diminished to light touch bilat LE EXTREMITIES: 5-\5 strength bilateral upper extremities. 5-\5 strength right lower extremity.4/5 strength in left lower extremity. SKIN: sacrum with blanchable erythema, left heel DTI, multiple dry ulcers on bony prominences of left foot left arm and hand- ecchymotic with open wounds, no exudate ASSESSMENT:84-year-old M with past medical history of PAD, COPD, Afib who presents status post right LE angioplasty procedures with anemia PLAN: 1. Rehab- PT/OT advance gait and ADLs, may need wheelchair level at first until left foot pain improves 2. neuro- c/u gabapentin for longstanding peripheral polyneuropathy due to PAD -restless leg c/u requip 3. cardia- hx of afib with sinus-tachy syndrome with PM and on amiodarone, atenolol and diltiazem, s/p watchmen's procedure, on eliquis -medicine consulted to assist in overall management -HLD- c/u statin 3. Vasc- s/p extensive RLE angioplasty performed 05-24-20 on eliquis and ASA, plan was for outpatient left sided common femoral endarterectomy, patient with considerable left foot pain and unable to bear weight c/u oral pain management, vascular surgery available again 06-05-20 will consult then, discussed case with Dr. Dick who believes patient is cleared from cardiac standpoint for additional vascular procedure -epsom salt baths for left foot seem to be relieving some pain- c/u 4. resp- copd on , c/u breathing tx, c/u chronic steroids 5. - hx of BPH c/u flomax and proscar 6. GI- +FOBT while on Eliquis and ASA, c/u sucralfate and ppi for ppx- patient declining colonoscopy at this time, will readdress during hospital stay if Hgb c/u to drop 7. Skin- dressing changes per instructions 8. Pain- c/u tramadol and tylenol 9. Heme- patient with chronic anemia, with acute blood loss likely due to left arm bleeding which has abated this morning s/p 2 units prbcs 06-01-20, renal consulted to assist in management-recs appreciated, Venfoer ordered 10. DVT ppx- on eliquis 11. Dispo- tbd Allergies Coded Allergies: petrolatum,white (Verified Allergy, Mild, ITCH/RASH, 09/21/19) fluconazole (Verified Allergy, Unknown, UNKNOWN REACTION, 09/16/19) fluticasone (Verified Allergy, Unknown, UNKNOWN REACTION, 09/16/19) metformin (Verified Allergy, Unknown, UNKNOWN REACTION, 09/16/19) promethazine (Verified Adverse Reaction, Intermediate, Altered Mental Status , 09/21/19) azithromycin (Verified Adverse Reaction, Unknown, LOWERS BP, 09/16/19) clarithromycin (Verified Adverse Reaction, Unknown, LOWERS BP, 09/16/19) ondansetron (Verified Adverse Reaction, Unknown, Hallucinations, 05/27/20) Pt states he experiences hallucinations with medication procaine (Verified Adverse Reaction, Unknown, DIZZINESS, 09/16/19) Vital Signs Vital Signs Date Time Temp Pulse Resp B/P (MAP) Pulse Ox O2 Delivery O2 Flow Rate FiO2 06/04/20 14:00 97.8 70 18 125/64 (84) 98 Nasal Cannula 2.0 Microbiology Microbiology 06/02/20 Blood Culture - Preliminary, Resulted No Growth after 48 hours. All Specime... 06/02/20 Blood Culture - Preliminary, Resulted No Growth after 48 hours. All Specime... Current Medications Current Medications Current Medications Medications (Trade) Dose Ordered Sig/Sasha Route PRN Reason Start Time Stop Time Status Last Admin Dose Admin Acetaminophen (Tylenol Tab) 1,000 mg QID PO 05/31/20 17:00 06/04/20 17:09 Amiodarone HCl (Pacerone, Cordarone) 200 mg DAILY PO 06/01/20 09:00 06/04/20 08:20 Apixaban (Eliquis) 2.5 mg BID PO 05/31/20 21:00 06/04/20 08:21 Aspirin (Ecotrin) 81 mg DAILY PO 06/01/20 09:00 06/04/20 08:21 Atenolol (Tenormin) 25 mg BID PO 05/31/20 21:00 06/04/20 08:19 Atorvastatin Calcium (Lipitor) 40 mg DAILY PO 06/01/20 09:00 06/04/20 08:20 Bismuth Subsalicylate (Pepto Bismol) 15 ml Q6HP PRN PO GI UPSET 06/02/20 16:05 Budesonide/ Formoterol Fumarate (Symbicort 160/ 4.5mcg) 2 puff RBID INH 05/31/20 20:00 06/04/20 07:18 Calcium Carbonate (Tums) 1,000 mg Q4HP PRN PO HEARTBURN 06/02/20 03:20 06/02/20 03:29 Diltiazem HCl (Cardizem) 120 mg DAILY PO 06/01/20 09:00 06/04/20 08:20 Docusate Sodium (Colace) 100 mg BID PO 05/31/20 21:00 05/31/20 16:17 DC Docusate Sodium (Colace) 100 mg BID PRN PO constipation. 05/31/20 21:00 Finasteride (Proscar) 5 mg DAILY PO 06/01/20 09:00 06/04/20 08:21 Gabapentin (Neurontin) 200 mg TID PO 05/31/20 21:00 06/04/20 15:01 Iron (Venofer) 100 mg DAILY IV 06/02/20 09:00 06/01/20 10:11 DC Iron 100 mg/ Sodium Chloride 105 ml @ 105 mls/hr Q24H IV 06/01/20 14:00 06/04/20 14:59 DC 06/04/20 14:59 Levalbuterol HCl (Xopenex Neb) 1.25 mg Q2HP PRN INH SOB/WHEEZING 05/31/20 13:45 Magnesium Sulfate (Epsom Salt) 1 dose DAILY@1700 TOP 06/01/20 17:00 06/04/20 17:10 Pantoprazole Sodium (Protonix) 40 mg BID PO 06/01/20 21:00 06/04/20 08:21 Pantoprazole Sodium (Protonix) 40 mg DAILY PO 06/01/20 09:00 06/01/20 14:35 DC 06/01/20 10:10 Paroxetine HCl (PAXil) 20 mg DAILY PO 06/01/20 09:00 06/04/20 08:20 Polyethylene Glycol (Miralax) 1 pkt DAILY PRN PO CONSTIPATION 05/31/20 13:45 Prednisone (Deltasone) 2.5 mg QPM PO 05/31/20 21:00 06/03/20 20:23 Prednisone (Deltasone) 5 mg DAILY PO 06/01/20 09:00 06/04/20 08:20 Prednisone (Deltasone) 7.5 mg DAILY PO 06/01/20 09:00 05/31/20 15:56 DC Ropinirole HCl (Requip) 0.25 mg QHS PO 05/31/20 21:00 06/03/20 20:23 Senna (Senokot) 1 tab QHS PO 05/31/20 21:00 05/31/20 16:17 DC Senna (Senokot) 1 tab QHS PRN PO Constipation 05/31/20 21:00 Sodium Biphosphate/ Sodium Phosphate (Fleet Enema) 1 ea DAILYPRN PRN [place] CONSTIPATION 05/31/20 13:45 Sucralfate (Carafate) 1 gm AC PO 06/01/20 17:30 06/04/20 17:09 Tamsulosin HCl (Flomax) 0.4 mg QHS PO 05/31/20 21:00 06/03/20 20:23 Tramadol HCl (Ultram) 25 mg Q12HP PRN PO PAIN >6/10 05/31/20 13:45 06/01/20 09:41 DC 06/01/20 08:42 Tramadol HCl (Ultram) 50 mg Q12HP PRN PO PAIN >6/10 06/01/20 21:00 06/04/20 01:34 JOSEP RAJAN MD Jun 04, 2020 19:24
[2020-06-04 20:00] VITALS: BP 143/65
[2020-06-04] MEDS: rOPINIRole 0.25 MG TAB(REQUIP) PO SCH (21:50)
[2020-06-04] MEDS: predniSONE 2.5 MG TAB PO SCH (21:50)
[2020-06-04] MEDS: TAMSULOSIN 0.4 MG CAP PO SCH (21:51)
[2020-06-05] MEDS: traMADol 50 MG TAB PO PRN (01:15)
[2020-06-05 06:00] VITALS: BP 142/72
[2020-06-05 06:53] LABS: HEMATOCRIT 26.5 % (42.0-52.0); HEMOGLOBIN 8.2 g/dl (13.5-17.5); MEAN CORPUSCULAR HEMOGLOBIN 28.8 pg (27.0-33.0); MEAN CORPUSCULAR HGB CONC 30.9 g/dl (32.0-36.5); PLATELET COUNT, AUTOMATED 287 10^3/uL (150-450); RED BLOOD COUNT 2.85 10^6/uL (4.30-6.10)
[2020-06-05 07:01] LABS: WHITE BLOOD COUNT 21.2 10^3/uL (4.0-10.0)
[2020-06-05] MEDS: SYMBICORT 160/4.5MCG INHALER 6GM INH SCH (07:07)
[2020-06-05 07:15] LABS: ATYPICAL LYMPH 2 % (0-5); LYMPHOCYTES 3 % (16-44); METAMYELOCYTES 1 % (0-0); MONOCYTES 6 % (0-5); NEUTROPHILS 87 % (28-66)
[2020-06-05 07:17] LABS: ANISOCYTOSIS 1+; PLATELET ESTIMATE NORMAL (NORMAL)
[2020-06-05 07:20] LABS: BLOOD UREA NITROGEN 24 MG/DL (7-18); CALCIUM LEVEL 7.7 MG/DL (8.8-10.2); CARBON DIOXIDE LEVEL 29 MEQ/L (21-32); CHLORIDE LEVEL 108 MEQ/L (98-107); CREATININE FOR GFR 1.09 MG/DL (0.70-1.30); GLOMERULAR FILTRATION RATE > 60.0 (>35); GLUCOSE, FASTING 107 MG/DL (70-100); POTASSIUM SERUM 3.7 MEQ/L (3.5-5.1); SODIUM LEVEL 143 MEQ/L (136-145)
[2020-06-05] MEDS: SUCRALFATE 1 GM TAB PO SCH ×2 (08:29→12:45)
[2020-06-05] MEDS: ATORVASTATIN 20 MG TAB PO SCH (08:33)
[2020-06-05] MEDS: FINASTERIDE 5 MG TAB PO SCH (08:33)
[2020-06-05] MEDS: PANTOPRAZOLE 40MG TAB (PROTONIX) PO SCH (08:33)
[2020-06-05] MEDS: APIXABAN 2.5 MG TAB (ELIQUIS) PO SCH (08:34)
[2020-06-05] MEDS: atenoloL 25 MG TAB PO SCH (08:34)
[2020-06-05] MEDS: GABAPENTIN 100 MG CAP PO SCH (08:34)
[2020-06-05 08:35] VITALS: BP 118/56
[2020-06-05] MEDS: ASPIRIN 81MG ENTERIC TABLET PO SCH (08:35)
[2020-06-05] MEDS: AMIODARONE 200 MG TAB (PACERONE) PO SCH (08:35)
[2020-06-05] MEDS: predniSONE 5 MG TAB PO SCH (08:35)
[2020-06-05] MEDS: PARoxetine 20MG TABLET PO SCH (08:36)
[2020-06-05] MEDS: ACETAMINOPHEN 500 MG TAB PO SCH ×2 (08:37→12:46)
--- NOTE | 2020-06-05 09:33 | IPNPDOC ---
PM&R Progress Note Topographical Field Assistant Progress Note DATE OF ADMISSION: May 31, 2020 at 14:35 INPATIENT REHABILITATION ADMISSION DAY: # SUBJECTIVE: Patient is a -year-old with . ALLERGIES: See Below MEDICATIONS: Reviewed, see below. OBJECTIVE: VITAL SIGNS: Please see below. PHYSICAL EXAMINATION: GENERAL: [Cachectic, well developed, sitting up in bed, no acute distress]. HEENT: [Normocephalic, atraumatic]. [No facial droop]. [Poor dentition, missing teeth. PERRL, EOMI]. CARDIOVASCULAR: [S1, S2, irregular rate]. [No lower limb edema or calf tenderness]. LUNGS: [Decreased breath sounds, coarse throughout]. ABDOMEN: [Soft, nontender, nondistended. Normoactive bowel sounds throughout]. MUSCULOSKELETAL: MMT: /5 strength proximally bilateral shoulder abduction, f orward flexion and bilateral hip flexion. /5 strength bilateral elbow flexion, knee flexion, /5 bilateral elbow extension and knee extension. 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 NEUROLOGICAL: [Alert and oriented times three]. [Answers all question appropriately]. SKIN: . LABORATORY DATA: Reviewed. Please see below. MICROBIOLOGY: Please see below. IMAGING: ASSESSMENT AND PLAN: 1. . 2. . 3. . TIME SPENT: Chart Review, examination and documentation minutes. Allergies Coded Allergies: petrolatum,white (Verified Allergy, Mild, ITCH/RASH, 09/21/19) fluconazole (Verified Allergy, Unknown, UNKNOWN REACTION, 09/16/19) fluticasone (Verified Allergy, Unknown, UNKNOWN REACTION, 09/16/19) metformin (Verified Allergy, Unknown, UNKNOWN REACTION, 09/16/19) metoclopramide (Verified Adverse Reaction, Severe, 06/10/20) Lightheadedness promethazine (Verified Adverse Reaction, Intermediate, Altered Mental Status , 09/21/19) azithromycin (Verified Adverse Reaction, Unknown, LOWERS BP, 09/16/19) clarithromycin (Verified Adverse Reaction, Unknown, LOWERS BP, 09/16/19) ondansetron (Verified Adverse Reaction, Unknown, Hallucinations, 05/27/20) Pt states he experiences hallucinations with medication procaine (Verified Adverse Reaction, Unknown, DIZZINESS, 09/16/19) Vital Signs Vital Signs Date Time Temp Pulse Resp B/P (MAP) Pulse Ox O2 Delivery O2 Flow Rate FiO2 06/05/20 08:35 67 118/56 06/05/20 06:00 98.2 19 96 Nasal Cannula 2.0 Laboratory Data CBC/BMP Laboratory Tests 06/05/20 06:03 Labs 24H Laboratory Tests 2 06/05/20 06:03: Immature Granulocyte % (Auto) , Neutrophils (%) (Auto) , Nucleated Red Blood Cells % (auto) 0.0, Neutrophils 87H, Band Neutrophils 1, Lymphocytes (Manual) 3 L, Monocytes (Manual) 6H, Metamyelocytes 1H, Atypical Lymphocytes 2, Anisocytosis 1+, Platelet Estimate NORMAL, Anion Gap 6L, Glomerular Filtration Rate > 60.0, Calcium Level 7.7L Microbiology Microbiology 06/02/20 Blood Culture - Preliminary, Resulted No Growth after 48 hours. All Specime... 06/02/20 Blood Culture - Preliminary, Resulted No Growth after 48 hours. All Specime... Current Medications Current Medications Current Medications Medications (Trade) Dose Ordered Sig/Sasha Route PRN Reason Start Time Stop Time Status Last Admin Dose Admin Acetaminophen (Tylenol Tab) 1,000 mg QID PO 05/31/20 17:00 06/05/20 08:37 Amiodarone HCl (Pacerone, Cordarone) 200 mg DAILY PO 06/01/20 09:00 06/05/20 08:35 Apixaban (Eliquis) 2.5 mg BID PO 05/31/20 21:00 06/05/20 08:34 Aspirin (Ecotrin) 81 mg DAILY PO 06/01/20 09:00 06/05/20 08:35 Atenolol (Tenormin) 25 mg BID PO 05/31/20 21:00 06/05/20 08:34 Atorvastatin Calcium (Lipitor) 40 mg DAILY PO 06/01/20 09:00 06/05/20 08:33 Bismuth Subsalicylate (Pepto Bismol) 15 ml Q6HP PRN PO GI UPSET 06/02/20 16:05 Budesonide/ Formoterol Fumarate (Symbicort 160/ 4.5mcg) 2 puff RBID INH 05/31/20 20:00 06/05/20 07:07 Calcium Carbonate (Tums) 1,000 mg Q4HP PRN PO HEARTBURN 06/02/20 03:20 06/02/20 03:29 Diltiazem HCl (Cardizem) 120 mg DAILY PO 06/01/20 09:00 06/05/20 08:35 Docusate Sodium (Colace) 100 mg BID PO 05/31/20 21:00 05/31/20 16:17 DC Docusate Sodium (Colace) 100 mg BID PRN PO constipation. 05/31/20 21:00 Finasteride (Proscar) 5 mg DAILY PO 06/01/20 09:00 06/05/20 08:33 Gabapentin (Neurontin) 200 mg TID PO 05/31/20 21:00 06/05/20 08:34 Iron (Venofer) 100 mg DAILY IV 06/02/20 09:00 06/01/20 10:11 DC Iron 100 mg/ Sodium Chloride 105 ml @ 105 mls/hr Q24H IV 06/01/20 14:00 06/04/20 14:59 DC 06/04/20 14:59 Levalbuterol HCl (Xopenex Neb) 1.25 mg Q2HP PRN INH SOB/WHEEZING 05/31/20 13:45 Magnesium Sulfate (Epsom Salt) 1 dose DAILY@1700 TOP 06/01/20 17:00 06/04/20 17:10 Pantoprazole Sodium (Protonix) 40 mg BID PO 06/01/20 21:00 06/05/20 08:33 Pantoprazole Sodium (Protonix) 40 mg DAILY PO 06/01/20 09:00 06/01/20 14:35 DC 06/01/20 10:10 Paroxetine HCl (PAXil) 20 mg DAILY PO 06/01/20 09:00 06/05/20 08:36 Polyethylene Glycol (Miralax) 1 pkt DAILY PRN PO CONSTIPATION 05/31/20 13:45 Prednisone (Deltasone) 2.5 mg QPM PO 05/31/20 21:00 06/04/20 21:50 Prednisone (Deltasone) 5 mg DAILY PO 06/01/20 09:00 06/05/20 08:35 Prednisone (Deltasone) 7.5 mg DAILY PO 06/01/20 09:00 05/31/20 15:56 DC Ropinirole HCl (Requip) 0.25 mg QHS PO 05/31/20 21:00 06/04/20 21:50 Senna (Senokot) 1 tab QHS PO 05/31/20 21:00 05/31/20 16:17 DC Senna (Senokot) 1 tab QHS PRN PO Constipation 05/31/20 21:00 Sodium Biphosphate/ Sodium Phosphate (Fleet Enema) 1 ea DAILYPRN PRN [place] CONSTIPATION 05/31/20 13:45 Sucralfate (Carafate) 1 gm AC PO 06/01/20 17:30 06/05/20 08:29 Tamsulosin HCl (Flomax) 0.4 mg QHS PO 05/31/20 21:00 06/04/20 21:51 Tramadol HCl (Ultram) 25 mg Q12HP PRN PO PAIN >6/10 05/31/20 13:45 06/01/20 09:41 DC 06/01/20 08:42 Tramadol HCl (Ultram) 50 mg Q12HP PRN PO PAIN >6/10 06/01/20 21:00 06/05/20 01:15 JOSEP RAJAN MD Jun 05, 2020 09:33
--- NOTE | 2020-06-05 11:30 | IPNPDOC ---
Date Seen The patient was seen on 06/05/20. Progress Note Patient seen and examined in rehabilitation today with Dr. Crawford. Since I last saw him in the hospital just over a week ago, he has considerable new findings. He is somewhat delirious and confused, talking to people in the room that are not there at times, but redirectable and able to answer questions. He is oriented to person but not place or time. He also has considerable abrasions of the left upper extremity. He has new abrasions of the left foot, and also dark discoloration of the left first toe and the entire left heel. The left heel is a bit fluctuant, but no surrounding erythema or induration noted. It is unclear if this occurred during his fall or with pressure. He has a few other scattered abrasions on the left side. On the right heel, he has a small skin tear and some small abrasions, but not significant compared to the left. His right foot is slightly warmer than the left although both are warm. There is faintly audible monophasic flow in the left leg and strong monophasic flow in the right leg. I discussed with the patient and Dr. Crawford that in light of his changes in the left foot and their severity, the limb will likely not be salvageable. His vascular disease is so chronically profound and extensive, and our options for revascularization distally are very limited, therefore I am not sure we would be able to provide anywhere near enough blood flow for him to salvage his foot now that he has these new findings of the toe and heel. Our plan a week ago was to bring the patient back outpatient for a left femoral, proximal profunda, proximal SFA endarterectomy to improve inflow to the lower extremity. This certainly was not going to solve all of his problems distally, but it would provide better flow to the patent aspects of his arterial system. We are hopeful it would allow us to come back at another time to try to revascularize the SFA/popliteal/tibials with gentle angioplasty as we were able to do on the right. Unfortunately, the best we could hope for at that time was enough blood flow to improve his pain which is partly vascular and partly neurogenic. Now, we would need a significant increase in blood flow to be able to salvage the foot. I do not feel this is possible. Therefore, at this point, I'm recommending a left above-knee amputation. Depending on visible blood flow during the case, we may also do a left femoral endarterectomy, but in the patient's debilitated state this may be too arduous of the surgery for him to handle. I'm hopeful that he will have adequate flow to heal an AKA without the femoral endarterectomy. Additionally, the patient is still anemic despite transfusions while he was in rehabilitation, and we assume he has a GI bleed. He had some GI workup during his last hospital admission when he was admitted for nausea and found to have severe constipation, but he did not have upper endoscopy/colonoscopy. It may be worthwhile to work this up prior to surgery. My fear is that he will not be able to continue her aspirin and anticoagulation, and not he will developed thrombosis of his iliac stents which will put his lower extremities at considerable risk. All of this makes this a very challenging patient. Enmanuel carvalho we will schedule the patient for later this week for left lower extremity above-knee amputation, possible left left femoral endarterectomy. Further recommendations to follow. We appreciate the opportunity to participate in the care of this patient. VS, I&O, 24H, Armandobonsalina Vital Signs/I&O Vital Signs Date Time Temp Pulse Resp B/P (MAP) Pulse Ox O2 Delivery O2 Flow Rate FiO2 06/05/20 08:35 67 118/56 06/05/20 06:00 98.2 19 96 Nasal Cannula 2.0 I&O- Last 24 Hours up to 6 AM 06/05/20 05:59 Intake Total 600 ml Output Total 400 ml Balance 200 ml Laboratory Data 24H LABS Laboratory Tests 2 06/05/20 06:03: Immature Granulocyte % (Auto) , Neutrophils (%) (Auto) , Nucleated Red Blood Cells % (auto) 0.0, Neutrophils 87H, Band Neutrophils 1, Lymphocytes (Manual) 3L, Monocytes (Manual) 6H, Metamyelocytes 1H, Atypical Lymphocytes 2, Anisocytosis 1+, Platelet Estimate NORMAL, Anion Gap 6L, Glomerular Filtration Rate > 60.0, Calcium Level 7.7L CBC/BMP Laboratory Tests 06/05/20 06:03 Microbiology Microbiology 06/02/20 Blood Culture - Preliminary, Resulted No Growth after 72 hours. All specime... 06/02/20 Blood Culture - Preliminary, Resulted No Growth after 72 hours. All specime... ELOINA MIJARES MD Jun 05, 2020 11:30
[2020-06-05] MEDS ORDERED: SUCR1TA PO (11:41)
[2020-06-05] MEDS ORDERED: PEPT262S PO (11:41)
[2020-06-05] MEDS ORDERED: ATEN25TA PO (11:41)
[2020-06-05] MEDS ORDERED: FINA5TAB2 PO (11:41)
[2020-06-05] MEDS ORDERED: TRAM50TA2 PO (11:41)
[2020-06-05] MEDS ORDERED: DILT60TA PO (11:41)
[2020-06-05] MEDS ORDERED: GABA-1171 PO (11:41)
[2020-06-05] MEDS ORDERED: PARO20TA3 PO (11:41)
[2020-06-05] MEDS ORDERED: FLOM0.4C39 PO (11:41)
[2020-06-05] MEDS ORDERED: ELIQ2.5T PO (11:41)
[2020-06-05] MEDS ORDERED: ATOR1TAB21 PO (11:41)
[2020-06-05] MEDS ORDERED: AMIO200T3 PO (11:41)
[2020-06-05] MEDS ORDERED: PRED25TA PO (11:41)
[2020-06-05] MEDS ORDERED: SYMB16INH INH (11:41)
[2020-06-05] MEDS ORDERED: REQU1TAB14 PO (11:41)
[2020-06-05] MEDS ORDERED: CALC200T15 PO (11:41)
[2020-06-05] MEDS ORDERED: CVS1GRA TOP (11:41)
[2020-06-05] MEDS ORDERED: PRED5TA PO (11:41)
[2020-06-05] MEDS ORDERED: ASPI81TA26 PO (11:41)
[2020-06-05] MEDS ORDERED: ACET-683 PO (11:41)
[2020-06-05] MEDS ORDERED: DOK1CAP7 PO (11:41)
[2020-06-05] MEDS ORDERED: LEVA12INH INH (11:41)
[2020-06-05] MEDS ORDERED: PANT40TA29 PO (11:41)
--- NOTE | 2020-06-05 14:05 | IPN ---
PROGRESS NOTE DATE: 06/05/2020 SUBJECTIVE: Mr. Javed is seen this morning on his bedside. He is laying in the bed without any acute distress. He seems slightly confused today. He denies any dyspnea or chest pain. OBJECTIVE: VITAL SIGNS: Temperature is 98.2 degrees Fahrenheit, heart rate is 68 per minute and respiratory rate 18 per minute, blood pressure 118/56 mmHg. Oxygen saturation 96%. HEENT: Head is atraumatic. NECK: Supple and without JVD or thyroid enlargement. HEART: Heart sounds are regular. LUNGS: Clear to auscultation. ABDOMEN: Somewhat protuberant but nontender. Bowel sounds are present. EXTREMITIES: Without any cyanosis or clubbing. Left foot is slightly discolored with some ischemic changes in the big toe and heel area. NEUROLOGIC: He seems slightly confused but has no focal deficit. LABORATORY DATA: Today's labs showed a WBC count of 21.2, hemoglobin 8.2 and hematocrit 26.5. Platelets are 287,000. Sodium is 143, potassium is 3.7, CO2 29, BUN is 24 and creatinine 1.09. PROBLEMS: 1. Blood loss anemia. Patient has gradual worsening of his anemia and is likely to require further transfusion. 2. Peripheral vascular disease. Patient has ischemic changes in his left heel and big toe. He has been seen by Vascular Surgery and already had angioplasty on his right lower extremity. He is likely to require angioplasty of his left lower extremity too.
[2020-06-05] MEDS ORDERED: CARD120C3 PO (15:02)
--- NOTE | 2020-06-20 12:51 | PMRDS ---
NAME: MARCY LEE [facility] WT ID#: [id number] JOB: [id number] ENEIDA: 06/05/2020 ACCT: [id number] DOCTOR: JOSEP RAJAN MD PMR DISCHARGE SUMMARY DATE OF ADMISSION: 05/31/2020 DATE OF DISCHARGE: 06/05/2020 CHIEF COMPLAINT/DISCHARGE DIAGNOSIS: Anemia with weakness and left lower extremity peripheral arterial disease. 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 He underwent an upper gastrointestinal (GI) series, which did not show any notable pathology, and continued on proton pump inhibitor (PPI) and Carafate for suspected gastritis. He complains of persistent lower extremity pain and was seen by vascular surgery for a left lower extremity ulcer and underwent a right lower extremity arteriogram on 05/24/2020 with common iliac stent bilaterally, extension of the stents into the external iliac bilaterally with plan for outpatient left common femoral endarterectomy. His leg pain improved after this; he had an unwitnessed fall and developed left arm bleeding with blood loss anemia requiring blood transfusion. He was evaluated by therapy, found to be very weak and requiring assistance with ambulation and activities of daily living (ADLs), deemed medically appropriate for discharge to acute rehabilitation unit (ARU) on 05/31/2020. PAST MEDICAL HISTORY: As per history of present illness (HPI). HOSPITAL COURSE: Patient was admitted and enrolled in a comprehensive physical therapy (PT)/occupational therapy (OT) program. He received 24-hour nursing supervision, and weekly team meetings were held to discuss his progress. Patient on admission complained of extreme pain in his left lower extremity. His left foot appeared erythematous, warm to touch. He was given Epsom salt baths and placed on Tramadol and Tylenol for pain management. Vascular surgery was consulted to evaluate patient again for a left common femoral endarterectomy. His case was discussed with cardiology, who recommended medical clearance for vascular procedure. Patient's left lower extremity pain did diminish moderately, and he was seen by vascular surgery on 06/05/2020, who agreed for further workup on inpatient side. Patient was discharged from acute rehabilitation for further medical management. DISCHARGE MEDICATIONS: As per instructions. FUNCTIONAL HISTORY ON DISCHARGE: Patient was minimal assist for functional transfer, standby assist from a wheelchair level. Thank you for this referral.
== END 2020-06-05 13:30 | disposition short-term general hospital (02) | DRG 948 ==
LOC: M PM&R 14:35
PROVIDERS: ADMIT Physical Medicine & Rehabilitation; ATTEND Physical Medicine & Rehabilitation
PROC: 30233N1 Transfusion of Nonautologous Red Blood Cells into Peripheral Vein, Percutaneous Approach (ICD-10-PCS; principal; 2020-06-01)
DX: R53.1 Weakness (principal); I48.20 Chronic atrial fibrillation, unspecified; L97.829 Non-pressure chronic ulcer of other part of left lower leg with unspecified severity; I49.5 Sick sinus syndrome; R26.89 Other abnormalities of gait and mobility; G62.9 Polyneuropathy, unspecified; F03.90 Unspecified dementia, unspecified severity, without behavioral disturbance, psychotic disturbance, mood disturbance, and anxiety; N18.30 Chronic kidney disease, stage 3 unspecified; G25.81 Restless legs syndrome; D64.9 Anemia, unspecified; Z66 Do not resuscitate; J44.9 Chronic obstructive pulmonary disease, unspecified; I70.248 Atherosclerosis of native arteries of left leg with ulceration of other part of lower leg; Z87.891 Personal history of nicotine dependence; Z95.0 Presence of cardiac pacemaker; Z95.820 Peripheral vascular angioplasty status with implants and grafts; Z99.81 Dependence on supplemental oxygen; Z79.891 Long term (current) use of opiate analgesic; Z79.899 Other long term (current) drug therapy; Z88.1 Allergy status to other antibiotic agents; Z88.8 Allergy status to other drugs, medicaments and biological substances

== ENCOUNTER 2020-06-05 11:32 | Inpatient (IN) | payer MEDICARE ==
[~2020-06-05] VITALS: Ht 167.6 cm; Wt 69.1 kg
[2020-06-05] MEDS ORDERED: TRAM50TA2 PO (11:41)
[2020-06-05] MEDS ORDERED: PRED5TA PO (11:41)
[2020-06-05] MEDS ORDERED: ACET-683 PO (11:41)
[2020-06-05] MEDS ORDERED: DOK1CAP7 PO (11:41)
[2020-06-05] MEDS ORDERED: ASPI81TA26 PO (11:41)
[2020-06-05] MEDS ORDERED: ATOR1TAB21 PO (11:41)
[2020-06-05] MEDS ORDERED: REQU1TAB14 PO (11:41)
[2020-06-05] MEDS ORDERED: GABA-1171 PO (11:41)
[2020-06-05] MEDS ORDERED: PRED25TA PO (11:41)
[2020-06-05] MEDS ORDERED: CVS1GRA TOP (11:41)
[2020-06-05] MEDS ORDERED: PANT40TA29 PO (11:41)
[2020-06-05] MEDS ORDERED: CALC200T15 PO (11:41)
[2020-06-05] MEDS ORDERED: DILT60TA PO (11:41)
[2020-06-05] MEDS ORDERED: ELIQ2.5T PO (11:41)
[2020-06-05] MEDS ORDERED: SYMB16INH INH (11:41)
[2020-06-05] MEDS ORDERED: FINA5TAB2 PO (11:41)
[2020-06-05] MEDS ORDERED: PARO20TA3 PO (11:41)
[2020-06-05] MEDS ORDERED: SUCR1TA PO (11:41)
[2020-06-05] MEDS ORDERED: FLOM0.4C39 PO (11:41)
[2020-06-05] MEDS ORDERED: AMIO200T3 PO (11:41)
[2020-06-05] MEDS ORDERED: LEVA12INH INH (11:41)
[2020-06-05] MEDS ORDERED: ATEN25TA PO (11:41)
[2020-06-05] MEDS ORDERED: PEPT262S PO (11:41)
[2020-06-05 13:39] VITALS: BP 130/64
--- NOTE | 2020-06-05 13:47 | HPE ---
HISTORY AND PHYSICAL DATE OF ADMISSION: HISTORY OF PRESENT ILLNESS: Pete is in the ARU. He is being transferred to acute care status. He is having increasing ischemia in his left lower extremity and has a worsening wound to his left foot as Dr. Hodges of Vascular Surgery is making room on the schedule for left-sided femoral endarterectomy in attempts to salvage his foot. Pain in his foot has prevented his participation in rehab activities. He has a complicated past medical history of longstanding peripheral arterial disease which was untreated until recently, hypertension, peripheral neuropathy, GE reflux disease with chronic upper abdominal pain and now heme-positive stool, depression, COPD, BPH, urinary retention, chronic kidney disease. SURGICAL HISTORY: Pacemaker. SOCIAL HISTORY: Quit smoking in 1989. No alcohol use. . His is in a retirement. He was living independently prior to this admission. He recently fell and got a large skin tear in his left arm with bleeding to the point where he needed transfusions. He has atrial fibrillation and has undergone a Watchman procedure but is still on an anticoagulant due to his peripheral arterial disease and recent stents. He is on chronic steroid therapy and has a history of hyperlipidemia as well. He has had intermittent drops of his hemoglobin to the point where he has required blood transfusions. He had 2 units of packed red blood cells on June 01 and 2 units before that on May 29. CURRENT MEDICATIONS: 1. Tylenol as needed. 2. Paxil 20 mg daily. 3. Amiodarone 200 mg daily. 4. Aspirin 81 mg daily. 5. Diltiazem CD 120 mg daily. 6. Prednisone 5 mg in the morning and 2.5 mg in the evening. 7. Eliquis 2.5 mg twice a day (being continued due to recent lower extremity arterial stenting). 8. Atenolol 25 mg twice a day. 9. Neurontin 200 mg twice a day. 10. Atorvastatin 40 mg daily. 11. Finasteride 5 mg daily. 12. Protonix 40 mg daily. 13. Carafate 1 gm before meals and once daily at bedtime. 14. Symbicort 160/4.5 two puffs twice a day. 15. Tramadol 50 mg every 12 hours as needed. 16. Flomax 0.4 mg once daily at bedtime. 17. Requip 0.25 mg once daily at bedtime. 18. He had an iron infusion on 06/04. ALLERGIES: AZITHROMYCIN, CLARITHROMYCIN, FLUCONAZOLE, FLUTICASONE, METFORMIN, ZOFRAN, PROCAINE, PROMETHAZINE. REVIEW OF SYSTEMS: He is having some upper abdominal pain, intermittent, chronic, no epistaxis. No hollie rectal bleeding or passing of melena. No hematuria. The patient was evaluated by Dr. Dick from Cardiology and per Dr. Bertin Crawford, the patient is cleared from a cardiology perspective for revascularization procedure. PHYSICAL EXAMINATION: VITAL SIGNS: Blood pressure 110/56, pulse 67, respirations 18, 96% O2 saturation. GENERAL APPEARANCE: He was seen in the gym in the ARU. He was in a wheelchair and looked chronically ill. HEENT: Unremarkable. LUNGS: Clear. HEART: Regular rate and rhythm. ABDOMEN: Soft, nontender. No masses. EXTREMITIES: His left upper extremity is dressed. He has a dressing on the left lower extremity. Pulses decreased to his left foot. I could not test on neuro exam beyond that. LABS: White count 21,000 (on steroids), hemoglobin 8.2, platelets 287. Sodium 143, potassium 3.7, BUN 24, creatinine 1.0, glucose 107. Recent urinalysis showed no blood. Stool positive for occult blood on 05/30. IMPRESSION AND PLAN: 1. Symptomatic peripheral arterial disease with ischemia left foot, increasing wounds and ischemic pain. Plan is for femoral endarterectomy by Dr. Hodges who has been consulted. 2. Peripheral arterial disease with recent stents. The patient has heme-positive stools. Hemoglobin keeps drifting down. I have been communicating with Dr. Hodges who feels the risk of continuing the anticoagulant outweighs the benefit at this point so it will be discontinued. 3. Atrial fibrillation. His rate is controlled. He had a Watchman procedure and is on Eliquis for his recent peripheral arterial disease/stents and not for the atrial fibrillation. Continue Amiodarone. Continue Diltiazem and Atenolol. 4. Hyperlipidemia. Continue Atorvastatin 40 mg daily. That dose is appropriate for his age. 5. History of BPH. He is on Flomax and finasteride. Early mobilization and attention towards risk of urinary retention advised. 6. COPD. Continue his nebulized bronchodilator and Symbicort 160/4.5. 7. Upper abdominal pain. He has not had an upper endoscopy that I am aware of. He is on a PPI as well as Carafate. Most recent upper endoscopy I see is from 11/2015. It just showed chronic inflammation of the esophagus, no intestinal metaplasia or dysplasia. %%CCLIST%%
[2020-06-05] MEDS ORDERED: CARD120C3 PO (15:02)
--- NOTE | 2020-06-05 17:01 | CR.PDOC ---
General Date of Consultation: Jun 05, 2020 Consultation REASON FOR CONSULTATION/CHIEF COMPLAINT: Evaluate left foot pain HISTORY OF PRESENT ILLNESS: Patient seen and examined in rehabilitation today with Dr. Crawford. Since I last saw him when he was in the hospital just over a week ago, he has considerable new findings. He is somewhat delirious and confused, talking to people in the room that are not there at times, but redirectable and able to answer questions. He is oriented to person but not place or time. He also has considerable abrasions of the left upper extremity. He has new abrasions of the left foot, and also dark discoloration of the left first toe and the entire left heel. The left heel is a bit fluctuant, but no surrounding erythema or induration noted. It is unclear if this occurred during his fall or with pressure. He has a few other scattered abrasions on the left side. On the right heel, he has a small skin tear and some small abrasions, but not significant compared to the left. His right foot is slightly warmer than the left although both are warm. There is faintly audible monophasic flow in the left leg and strong monophasic flow in the right leg. I discussed with the patient and Dr. Crawford that in light of his changes in the left foot and their severity, the limb will likely not be salvageable. His vascular disease is so chronically profound and extensive, and our options for revascularization distally are very limited, therefore I am not sure we would be able to provide anywhere near enough blood flow for him to salvage his foot now that he has these new findings of the toe and heel. Our plan a week ago was to bring the patient back outpatient for a left femoral, proximal profunda, proximal SFA endarterectomy to improve inflow to the lower extremity. This certainly was not going to solve all of his problems distally, but it would provide better flow to the patent aspects of his arterial system. We are hopeful it would allow us to come back at another time to try to revascularize the SFA/popliteal/tibials with gentle angioplasty as we were able to do on the right. Unfortunately, the best we could hope for at that time was enough blood flow to improve his pain which is partly vascular and partly neurogenic. Now, we would need a significant increase in blood flow to be able to salvage the foot. I do not feel this is possible. Therefore, at this point, I'm recommending a left above-knee amputation. Depending on visible blood flow during the case, we may also do a left femoral endarterectomy, but in the patient's debilitated state this may be too arduous of the surgery for him to handle. I'm hopeful that he will have adequate flow to heal an AKA without the femoral endarterectomy. Additionally, the patient is still anemic despite transfusions while he was in rehabilitation, and we assume he has a GI bleed. He had some GI workup during his last hospital admission when he was admitted for nausea and found to have severe constipation, but he did not have upper endoscopy/colonoscopy. It may be worthwhile to work this up prior to surgery. My fear is that he will not be able to continue with aspirin and anticoagulation, due to GI bleed. Without it, he may be high risk for thrombosis of his iliac stents which will put his lower extremities at considerable risk. All of this makes this a very challenging patient. Tentatively we will schedule the patient for later this week for left lower extremity above-knee amputation, possible left left femoral endarterectomy. Further recommendations to follow. We appreciate the opportunity to participate in the care of this patient. ALLERGIES: Please see below. HOME MEDICATIONS: Please see below. PAST MEDICAL HISTORY: Hypertension, neuropathy, gastroesophageal reflux disease, depression, COPD, BPH, urinary retention, renal insufficiency PAST SURGICAL HISTORY: Pacemaker FAMILY HISTORY: Heart disease SOCIAL HISTORY: Quit smoking 1989, no longer drinks alcohol, denies illicit drug use, patient is and his lives in a custodial REVIEW OF SYSTEMS: CONSTITUTIONAL: Denies fevers or chills HEENT: Denies vision changes CARDIOVASCULAR: Denies chest pain RESPIRATORY: Positive shortness of breath with exertion GENITOURINARY: Positive urinary retention and kidney trouble MUSCULOSKELETAL: Positive right leg pain and inability to ambulate GASTROINTESTINAL: Reports constipation SKIN: Positive wounds LUE, BLE NEUROLOGICAL: Denies headaches or seizures. Denies stroke PSYCHIATRIC: Positive depression ENDOCRINE: Denies diabetes or thyroid disease HEMATOLOGIC/LYMPHATIC: Positive iron deficient ALLERGIC/IMMUNOLOGIC: Denies PHYSICAL EXAMINATION: VITAL SIGNS: Please see below. GENERAL APPEARANCE: Disheveled, mildly irritated in bed HEENT: Normocephalic TMI hearing aids RESPIRATORY: Clear to auscultation CARDIOVASCULAR: Regular rate and rhythm paced ABDOMEN: Soft nontender nondistended EXTREMITIES: Original ulcer left foot has increased in size a few millimeters since I last saw out a week ago. DP and PT signals monophasic bilateral, and are weaker on the left than the right. Right foot hyperemic at the toes and there is a small open wound on the right heel, superficial. 1 second capillary refill right foot. The left foot has considerable deterioration. There is black discoloration of the left first toe and of the entire heel. The heel is fluctuant to bone. Skin tear LUE dressed, signif bruising. NEUROLOGICAL: Alert and oriented 1 to person, delirious, confused PSYCHIATRIC: Cooperative, redirectable LABORATORY DATA: Please see below. ASSESSMENT/PLAN: Very pleasant 84-year-old gentleman with severe chronic calcified peripheral vascular disease, and new ischemic changes first toe and heel left lower extremity foot, concern for ongoing GI bleed requiring transfusions, delirium. 1. Patient is on eliquis twice a day. We unfortunately need to hold this right now due to concern for GI bleed. Recommend GI consult and possible endoscopy to identify source of bleeding. 2. Tentative plan for left above-knee amputation on Friday, and possible femoral endarterectomy if I feel Intra-Op there is not enough blood flow to heal and above-knee amputation. The patient does not have adequate perfusion to heal up below knee amputation. I do not feel I can provide enough revascularization to heal the large deep pressure ulcer of the left heel. We can reschedule this procedure if patient requires more urgent workup for his GI bleed. 3. Continue aspirin and statin daily. We appreciate the opportunity to participate in the care of this patient. Vital Signs/I&O Vital Signs Date Time Temp Pulse Resp B/P (MAP) Pulse Ox O2 Delivery O2 Flow Rate FiO2 06/05/20 13:39 99.0 72 20 130/64 (86) 98 Nasal Cannula 2.0 Allergies Coded Allergies: petrolatum,white (Verified Allergy, Mild, ITCH/RASH, 09/21/19) fluconazole (Verified Allergy, Unknown, UNKNOWN REACTION, 09/16/19) fluticasone (Verified Allergy, Unknown, UNKNOWN REACTION, 09/16/19) metformin (Verified Allergy, Unknown, UNKNOWN REACTION, 09/16/19) promethazine (Verified Adverse Reaction, Intermediate, Altered Mental Status , 09/21/19) azithromycin (Verified Adverse Reaction, Unknown, LOWERS BP, 09/16/19) clarithromycin (Verified Adverse Reaction, Unknown, LOWERS BP, 09/16/19) ondansetron (Verified Adverse Reaction, Unknown, Hallucinations, 05/27/20) Pt states he experiences hallucinations with medication procaine (Verified Adverse Reaction, Unknown, DIZZINESS, 09/16/19) Home Medications Scheduled Acetaminophen (Acetaminophen) 500 Mg Tablet, 1,000 MG PO QID, #1 Amiodarone HCl (Amiodarone HCl) 200 Mg Tablet, 200 MG PO DAILY, (Reported) Amiodarone HCl (Amiodarone HCl) 200 Mg Tablet, 200 MG PO DAILY, #1 Apixaban (Eliquis) 2.5 Mg Tab, 2.5 MG PO BID, (Reported) Apixaban (Eliquis) 2.5 Mg Tablet, 2.5 MG PO BID, #1 Aspirin (Aspirin EC) 81 Mg Tablet.dr, 81 MG PO DAILY, (Reported) NEW SCRIPT FROM 05/20/20 Aspirin (Aspirin EC) 81 Mg Tablet.dr, 81 MG PO DAILY, #1 Atenolol (Atenolol) 25 Mg Tablet, 25 MG PO BID, (Reported) Atenolol (Atenolol) 25 Mg Tablet, 25 MG PO BID, #1 Atorvastatin Calcium (Atorvastatin Calcium) 40 Mg Tablet, 40 MG PO DAILY, (Reported) NEW SCRIPT FROM 05/20/20 Atorvastatin Calcium (Atorvastatin Calcium) 20 Mg Tablet, 40 MG PO DAILY, #1 Budesonide/Formoterol (Symbicort 160-4.5 Mcg Inhaler) 6 Gm Hfa.aer.ad, 2 PUFF INH BID, (Reported) Budesonide/Formoterol (Symbicort 160-4.5 Mcg Inhaler) 6 Gm Hfa.aer.ad, 2 PUFF INH RBID, #1 Diltiazem Hcl (Cardizem Cd) 120 Mg Cap.er.24h, 120 MG PO DAILY, (Reported) per discussion with Dr. Dick 06/05/20, pt should be on Diltiazem CD 120 mg po daily, removing immediate release from med rec Finasteride (Finasteride) 5 Mg Tab, 5 MG PO DAILY, (Reported) Finasteride (Finasteride) 5 Mg Tablet, 5 MG PO DAILY, #1 Gabapentin (Gabapentin) 100 Mg Capsule, 200 MG PO Q8H for 1 Days, #6 Gabapentin (Gabapentin) 100 Mg Capsule, 200 MG PO TID, #1 Magnesium Sulfate (Epsom Salt) 1,920 Gm Granules, 1 DOSE TOP DAILY@1700, #1 Jbphh-3 Fatty Acids/Fish Oil (Fish Oil 1,000 mg Capsule) 1 Each Capsule, 1 CAP PO DAILY, (Reported) Pantoprazole Sodium (Pantoprazole Sodium) 40 Mg Tablet.dr, 40 MG PO BID, #1 Paroxetine HCl (Paroxetine HCl) 20 Mg Tablet, 20 MG PO DAILY, #1 Prednisone (Prednisone) 5 Mg Tab, 5 MG PO QAM, (Reported) Prednisone (Prednisone) 2.5 Mg Tablet, 2.5 MG PO QPM, (Reported) Prednisone (Prednisone) 5 Mg Tablet, 5 MG PO DAILY, #1 Prednisone (Prednisone) 2.5 Mg Tablet, 2.5 MG PO QPM, #1 Ropinirole HCl (Ropinirole HCl) 0.25 Mg Tablet, 0.25 MG PO QHS, (Reported) Ropinirole HCl (Requip) 0.25 Mg Tablet, 0.25 MG PO QHS, #1 Sucralfate (Sucralfate) 1 Gm Tablet, 1 GM PO AC, #1 Tamsulosin HCl (Flomax) 0.4 Mg Capsule, 0.4 MG PO QHS, #1 Tamsulosin Hcl (Tamsulosin HCl) 0.4 Mg Capsule, 0.4 MG PO QHS, (Reported) Scheduled PRN Acetaminophen (Acetaminophen) 500 Mg Tablet, 1,000 MG PO Q8H PRN for PAIN, (Reported) TAKES WITH TRAMADOL PRN Bismuth Subsalicylate (Pepto-Bismol) 262 Mg/15 Ml Oral.susp, 15 ML PO Q6HP PRN for GI UPSET, #1 Calcium Carbonate (Calcium Carbonate) 200 Mg Tab.chew, 1,000 MG PO Q4HP PRN for HEARTBURN, #1 Docusate Sodium (Dok) 100 Mg Capsule, 100 MG PO BID PRN for constipation., #1 Levalbuterol Hydrochloride (Xopenex Hfa) 15 Gm Hfa.aer.ad, 2 PUFF INH Q6H PRN for SHORTNESS OF BREATH, (Reported) Levalbuterol Hydrochloride (Xopenex Concentrate) 1.25 Mg/0.5 Ml Vial.neb, 1.25 MG INH Q2HP PRN for SOB/WHEEZING, #1 Tramadol HCl (Tramadol HCl) 50 Mg Tablet, 50 MG PO Q12HP PRN for PAIN >6/10, #1 ELOINA MIJARES MD Jun 05, 2020 17:01
[2020-06-05] MEDS: atenoloL 25 MG TAB PO SCH (21:38)
[2020-06-05 22:00] VITALS: BP 130/63
[2020-06-06 05:53] LABS: MEAN CORPUSCULAR HEMOGLOBIN 28.8 pg (27.0-33.0); MEAN CORPUSCULAR HGB CONC 30.8 g/dl (32.0-36.5); MEAN CORPUSCULAR VOLUME 93.5 fl (80.0-96.0); PLATELET COUNT, AUTOMATED 286 10^3/uL (150-450); RED BLOOD COUNT 2.78 10^6/uL (4.30-6.10); WHITE BLOOD COUNT 16.2 10^3/uL (4.0-10.0)
[2020-06-06 06:00] VITALS: BP 136/64
[2020-06-06 06:17] LABS: BLOOD UREA NITROGEN 26 MG/DL (7-18); CALCIUM LEVEL 8.2 MG/DL (8.8-10.2); CARBON DIOXIDE LEVEL 30 MEQ/L (21-32); CHLORIDE LEVEL 111 MEQ/L (98-107); CREATININE FOR GFR 0.96 MG/DL (0.70-1.30); GLOMERULAR FILTRATION RATE > 60.0 (>35); GLUCOSE, FASTING 109 MG/DL (70-100); POTASSIUM SERUM 3.2 MEQ/L (3.5-5.1); SODIUM LEVEL 146 MEQ/L (136-145)
[2020-06-06] MEDS: atenoloL 25 MG TAB PO SCH ×2 (09:00→20:26)
[2020-06-06] MEDS: AMIODARONE 200 MG TAB (PACERONE) PO SCH (09:00)
[2020-06-06] MEDS: ATORVASTATIN 20 MG TAB PO SCH (09:48)
[2020-06-06] MEDS: ASPIRIN 81MG ENTERIC TABLET PO SCH (09:49)
[2020-06-06 14:00] VITALS: BP 128/69
[2020-06-06] MEDS ORDERED: POTASSIUM CHLORIDE 10 MEQ SR TABLET PO ONE (14:35)
--- NOTE | 2020-06-06 14:39 | IPNPDOC ---
Text Note Date of Service The patient was seen on 06/06/20. NOTE Patient was seen and examined by me. The patient seems chronically ill and has no acute complaints at this time. VITAL SIGNS: Blood pressure 110/56, pulse 67, respirations 18, 96% O2 saturation. GENERAL APPEARANCE: He looked chronically ill. HEENT: Slight pallor, no icterus LUNGS: Clear. HEART: Regular rate and rhythm. ABDOMEN: Soft, nontender. No masses. EXTREMITIES: His left upper extremity is dressed. He has a dressing on the left lower extremity. Pulses decreased to his left foot. Labs reviewed Radiology reviewed IMPRESSION AND PLAN: 1. Symptomatic peripheral arterial disease with ischemia left foot, increasing wounds and ischemic pain. Plan is for femoral endarterectomy versus above knee amputation by Dr. Hodges who has been consulted. Spoke with her in detail and she has concerns that this patient probably has some GI blood loss going on as the patient has required multiple transfusions. Also, as the patient has had peripheral artery disease with stent placement and was on Eliquis for that, but currently, that has been on hold. Currently the procedure has been put on hold for tomorrow for a clearance from GI standpoint, to clarify if this blood losses due to a GI-related issue. 2. GI bleed? . With dropping hemoglobin, requiring multiple transfusions. The patient has heme-positive stools on the previous admission. Hemoglobin keeps drifting down but stable over the last [address] Hodges who feels the risk of continuing the anticoagulant outweighs the benefit at this point so it will be discontinued. Will await GI recommendations and possible colonoscopy versus EGD Most recent upper endoscopy I see i from 11/2015. It just showed chronic inflammation of the esophagus, no intestinal metaplasia or dysplasia. Continue Carafate as well as Protonix 3. Atrial fibrillation. His rate is controlled. He had a Watchman procedure and was on Eliquis for his recent peripheral arterial disease/stents and not for the atrial fibrillation., Atenolol and amiodarone was held for today as the patient's blood pressure was slightly on the lower side and Cardizem was continued because the heart rates her 90s. We will reevaluate tomorrow. 4. Hyperlipidemia. Continue Atorvastatin 40 mg daily. That dose is appropriate for his age. 5. History of BPH. He is on Flomax and finasteride. 6. COPD. Continue his nebulized bronchodilator and Symbicort 160/4.5. 7. Hypokalemia, replaced. We'll monitor. DVT prophylaxis with SCDs. VSDaylin, I+O VSDaylin, I+O Laboratory Tests 06/06/20 05:18 Vital Signs Date Time Temp Pulse Resp B/P (MAP) Pulse Ox O2 Delivery O2 Flow Rate FiO2 06/06/20 09:50 2.0 06/06/20 09:49 74 110/70 06/06/20 06:00 97.5 17 94 Nasal Cannula I&O- Last 24 Hours up to 6 AM 06/06/20 06:00 Intake Total 100 ml Output Total 175 ml Balance -75 ml GRAYSON DONAHUE MD Jun 06, 2020 12:57
[2020-06-06] MEDS ORDERED: NS 500 ML IV SCH (15:20)
[2020-06-06] MEDS ORDERED: BISACODYL 5 MG TAB PO ONE (16:00)
[2020-06-06] MEDS ORDERED: NULYTELY SOLN 4000ML BTL PO ONE (17:00)
--- NOTE | 2020-06-06 17:27 | IPNPDOC ---
Date Seen The patient was seen on 06/06/20. Progress Note Tentative plan was for left lower extremity above knee amputation, and possible left femoral endarterectomy if I didn't feel there was enough perfusion to heal an above-knee amputation, tomorrow. However, we will push this back to Friday to give adequate time for GI to scope the patient for suspected GI bleed. Hemoglobin 8 today. We would really like to restart the patient's anticoagulation, versus Plavix, for fresh iliac artery stents that are high risk for thrombosis without Plavix or eliquis. Unfortunately, in the light of dropping hemoglobin despite transfusions while the patient was in rehabilitation, we do not feel comfortable continuing anticoagulation at this time. Therefore, we will hold off on intervention, and the patient is stable from the lower extremity standpoint. Normally I would recommend attempting revascularization and salvaging the foot, but with such a deep pressure ulcer of the heel, as well as multiple other wounds on the left foot and first toe with acute on chronic ischemic changes, I think the amount of blood supply he would need to turn this around his unattainable with his severe chronic end-stage peripheral vascular disease. I have yet to be able to reach his granddaughter Amalia to discuss this with her, but I will keep trying. She does not have an answering machine on her phone. I'm not sure she will give consent for the amputation, in which case we can do the endarterectomy and provide local wound care to the foot until it declares itself necessitating amputation. For now, we will float the heels off the bed to prevent further injury. The patient is very restless in bed which makes this challenging, but we will do the best we can. His right foot is also at risk for pressure necrosis due to long-standing chronic vascular disease, and what we were able to improve with his initial right lower extremity intervention was pretty minimal. With the degree of heavy bulky calcified plaque he has, there is limited options for any improvement in revascularization, especially across the ankle into the foot. Unfortunately, this puts him at very high risk for limb loss bilaterally. We will continue to follow and further recommendations will be made as appropriate. We appreciate the opportunity to participate in the care of this patient. VS, I&O, 24H, Fishbone Vital Signs/I&O Vital Signs Date Time Temp Pulse Resp B/P (MAP) Pulse Ox O2 Delivery O2 Flow Rate FiO2 06/06/20 14:00 96.8 116 22 128/69 (88) 91 Nasal Cannula 2.0 I&O- Last 24 Hours up to 6 AM 06/06/20 06:00 Intake Total 100 ml Output Total 175 ml Balance -75 ml Laboratory Data 24H LABS Laboratory Tests 2 06/06/20 05:18: Reticulocyte # (auto) 65.2, Nucleated Red Blood Cells % (auto) 0.0, Percent Reticulocyte Count 2.3H, Reticulocyte Hemoglobin Equivalent 28.8, Anion Gap 5L, Glomerular Filtration Rate > 60.0, Calcium Level 8.2L CBC/BMP Laboratory Tests 06/06/20 05:18 ELOINA MIJARES MD Jun 06, 2020 17:27
[2020-06-06 22:00] VITALS: BP 121/75
[2020-06-07 06:00] VITALS: BP 128/71
[2020-06-07 06:12] LABS: HEMATOCRIT 29.1 % (42.0-52.0); HEMOGLOBIN 8.7 g/dl (13.5-17.5); MEAN CORPUSCULAR HEMOGLOBIN 28.8 pg (27.0-33.0); MEAN CORPUSCULAR HGB CONC 29.9 g/dl (32.0-36.5); MEAN CORPUSCULAR VOLUME 96.4 fl (80.0-96.0); PLATELET COUNT, AUTOMATED 304 10^3/uL (150-450); RED BLOOD COUNT 3.02 10^6/uL (4.30-6.10); WHITE BLOOD COUNT 21.5 10^3/uL (4.0-10.0)
[2020-06-07 06:34] LABS: BLOOD UREA NITROGEN 19 MG/DL (7-18); CALCIUM LEVEL 8.5 MG/DL (8.8-10.2); CARBON DIOXIDE LEVEL 28 MEQ/L (21-32); CHLORIDE LEVEL 112 MEQ/L (98-107); CREATININE FOR GFR 0.78 MG/DL (0.70-1.30); GLOMERULAR FILTRATION RATE > 60.0 (>35); GLUCOSE, FASTING 142 MG/DL (70-100); POTASSIUM SERUM 3.6 MEQ/L (3.5-5.1); SODIUM LEVEL 146 MEQ/L (136-145)
--- NOTE | 2020-06-07 08:11 | REP ---
INDICATION: Leukocytosis. COMPARISON: Comparison portable chest x-ray May 27, 2020. TECHNIQUE: Portable upright AP chest radiograph. FINDINGS: A dual lead pacemaker is again noted in the right heart view of the left side. There are increased markings in the left lower lobe behind the heart with platelike atelectasis and infiltrate. Right lung is clear. Heart is not felt to be enlarged. Pulmonary vasculature is not increased. Oxygen delivery tubing is noted.. IMPRESSION: Subtle left lower lobe infiltrate and atelectasis suggestive of pneumonia. Pacemaker again noted.. <Electronically signed by Mike El > 06/07/20 [id number]
[2020-06-07] MEDS: D5W/0.45% SODIUM CHLORIDE 1,000 ML IV SCH ×2 (08:40→20:31)
[2020-06-07] MEDS: atenoloL 25 MG TAB PO SCH ×2 (08:41→20:31)
[2020-06-07] MEDS: ASPIRIN 81MG ENTERIC TABLET PO SCH (08:41)
[2020-06-07] MEDS: AMIODARONE 200 MG TAB (PACERONE) PO SCH (08:41)
[2020-06-07] MEDS: ATORVASTATIN 20 MG TAB PO SCH (08:41)
[2020-06-07 08:54] LABS: ALBUMIN 1.8 GM/DL (3.2-5.2); BILIRUBIN,DIRECT 0.2 MG/DL (0.0-0.2); BILIRUBIN,TOTAL 0.5 MG/DL (0.2-1.0); TOTAL PROTEIN 4.5 GM/DL (6.4-8.2)
--- NOTE | 2020-06-07 09:36 | IPNPDOC ---
Text Note Date of Service The patient was seen on 06/07/20. NOTE Subjective: No acute events reported overnight. Discussed with patient about possible L AKA. Patient states that he would like to have a second opinion. Objective: VITALS: See below. GENERAL: Patient is laying in bed. Appears uncomfortable and chronically ill. He cries out in pain while bandages from all extremities are being taken off. HEENT: NC/AT. No scleral icterus. CARDIOVASCULAR: Regular rate and rhythm. No murmurs, rubs, or gallops appreciated. PULMONARY: Lungs clear to auscultation. No wheezes, rales, or rhonchi apprecia sami. ABDOMEN: Soft and non-distended. EXTREMITIES: 2 skin tears to LUE with surrounding ecchymosis (1 to the dorsum of L hand. 1 to the lateral aspect of upper arm about 3 cm x 2 cm in size.). 1 skin tear with surrounding ecchymosis to the RUE on forearm with steri strips in place. There is erythema and an open wound to the R heel. There is black discoloration, consistent with necrotic tissue, to the L great toe, L heel, L lateral malleolus, and L lateral foot. Assessment/Plan: Patient is a 84 year old male with history of peripheral arterial disease, HTN, peripheral neuropathy, GERD with chronic upper abd pain and hx of heme positive stool, COPD, BPH, urinary retention, and CKD who was transferred from [facility] due to increasing ischemia to the L lower extremity that has worsened. Dr. Hodges with vascular surgery was consulted. She recommends L above the knee amputation as she does not feel that it would be possible to get a significant blood flow to salvage the foot. Additionally, patient has been anemic despite transfusions. Patients Eliquis has been put on hold due to risks outweighing the benefits of continued anticoagulation. Anemia may be due to a GI bleed so patient is schedule for a EGD and colonoscopy today. Tentative plans for L above the knee amputation for Friday (06/09/20). # L foot ischemia 2/2 peripheral arterial disease - Vascular surgery consulted. Plan for L above the knee amputation and possible L femoral endarterectomy. - Patient has hx of PAD with stent placement on Eliquis at home. Due to anemia and suspicion for GI bleed, patients Eliquis has been put on hold. - Foam dressing and heel float boots in place to b/l feet. Wound care per Dr. Brooks. # Skin tears 2/2 mechanical fall - Previously ARU pt was reported to have an unwitnessed fall that resulted in multiple skin tears - 1 to R forearm, 1 to L upper arm, and 1 to L forearm. - Pt wound dressing was adhered to his skin. Dressing removed while in room and wound did not appear cellulitic. - Wounds cleaned and re-dressed. # Anemia 2/2 possible GI bleed - Patient has been anemic with hemoglobin of 8. Patients Eliquis has been put on hold due to concerns of GI bleed. - Patient is scheduled for EGD and colonoscopy today to r/o GI causes of anemia. # Leukocytosis - CXR on 06/07/20 shows subtle left lower lobe infiltrate and atelectasis suggestive of pneumonia. May be a source of leukocytosis. Will start incentive spirometry as well as Zosyn for suspected pneumonia. Will transition patient to PO abx as soon as pt is no longer NPO/tolerating PO. Will discontinue Zosyn if procalcitonin returns negative. - Blood cultures, UA, and procalcitonin have been ordered. # Atrial fibrillation - Patient is currently rate controlled. - He has had Watchman procedure done in the past. - Continue Atenolol 25 mg PO BID. - Continue Amiodarone 200 mg PO QAM. - Continue Diltiazem 120 mg PO Daily. # Hyperlipidemia - Continue Atorvastatin 40 mg daily. DVT Prophylaxis: SCDs. Disposition: Pt has EGD and colonoscopy has been scheduled for today. The tentative plan is for L AKA after clearance from a GI perspective. Starting Zosyn for suspected pneumonia due to leukocytosis and will d/c if procalcitonin returns negative. VS,Fishbone, I+O VS, Fishbone, I+O Laboratory Tests 06/07/20 05:35 Vital Signs Date Time Temp Pulse Resp B/P (MAP) Pulse Ox O2 Delivery O2 Flow Rate FiO2 06/07/20 06:00 97.3 108 17 128/71 (90) 96 Nasal Cannula 1.0 I&O- Last 24 Hours up to 6 AM 06/07/20 06:00 Intake Total 620 ml Output Total 250 ml Balance 370 ml GME ATTESTATION GME ATTESTATION My faculty preceptor for this patient encounter was physically present during the encounter and was fully available. All aspects of the patient interview, examination, medical decision making process, and medical care plan development were reviewed and approved by the faculty preceptor. The faculty preceptor is aware and concurs with the plan as stated in the body of this note and will att est to such by his/her cosignature. ATTENDING NOTE I, Ciaran Roca, have independently examined this patient and performed my own physical exam, as well as reviewed the documentation and edited where necessary. I have discussed in detail with the resident / student the findings and plan of treatment as documented by the resident / student and edited their note. I agree with their findings and treatment plan and have edited their documentation. I will continue to follow the patient during this hospital stay. Bhakti ORTIZ OMS-3 Jun 07, 2020 09:36 CIARAN ROCA MD Jun 07, 2020 14:20
[2020-06-07] MEDS ORDERED: LevoFLOXacin IV 750 MG in IV 1 EA IV SCH (10:00)
[2020-06-07] MEDS: PIPERACILLIN/TAZOBACTAM SOD 3.375 GM in D5W MINI-BAG PLUS 50 ML IV SCH ×3 (10:38→21:10)
[2020-06-07] MEDS: traMADol 50 MG TAB PO PRN ×2 (11:37→18:29)
[2020-06-07] MEDS ORDERED: SIMETHICONE 40MG/0.6ML DROPS 30ML As Ordered ONE (13:03)
[2020-06-07 13:40] VITALS: BP 112/58
[2020-06-07] MEDS ORDERED: LIDOCAINE 2% 100MG/5ML SDV (FOR ANES.) As Ordered ONE (13:41)
[2020-06-07] MEDS ORDERED: propofoL 500 MG/50 ML VIAL As Ordered ONE (13:41)
[2020-06-07 14:00] VITALS: BP 112/58
--- NOTE | 2020-06-07 15:26 | ROOR ---
Patient Name: Pete Javed Procedure Date: 06/07/2020 2:20 PM Date of : 1935 Age: 84 Room: [facility] Gender: Male Note Status: Finalized Procedure: Upper GI endoscopy Indications: Iron deficiency anemia, Heme positive stool Providers: Ashish Obrien MD Referring MD: 2. Inpatient 2. Inpatient, Rey Pettit MD Requesting Provider: Medicines: Monitored Anesthesia Care Complications: No immediate complications. Procedure: Pre-Anesthesia Assessment: - Prior to the procedure, a History and Physical was performed, and patient medications and allergies were reviewed. The patient is competent. The risks and benefits of the procedure and the sedation options and risks were discussed with the patient. All questions were answered and informed consent was obtained. Patient identification and proposed procedure were verified by the physician, the nurse and the anesthesiologist in the procedure room. Mental Status Examination: alert and oriented. Airway Examination: normal oropharyngeal airway and neck mobility. Respiratory Examination: clear to auscultation. CV Examination: normal. Prophylactic Antibiotics: The patient does not require prophylactic antibiotics. Prior Anticoagulants: The patient has taken no previous anticoagulant or antiplatelet agents. ASA Grade Assessment: III - A patient with severe systemic disease. After reviewing the risks and benefits, the patient was deemed in satisfactory condition to undergo the procedure. The anesthesia plan was to use monitored anesthesia care (MAC). Immediately prior to administration of medications, the patient was re-assessed for adequacy to receive sedatives. The heart rate, respiratory rate, oxygen saturations, blood pressure, adequacy of pulmonary ventilation, and response to care were monitored throughout the procedure. The physical status of the patient was re-assessed after the procedure. The Endoscope was introduced through the mouth, and advanced to the second part of duodenum. The upper GI endoscopy was accomplished without difficulty. The patient tolerated the procedure well. Findings: A medium-sized hiatal hernia was present. Scattered mild inflammation characterized by erythema and granularity was found in the gastric antrum. The duodenal bulb and second portion of the duodenum were normal. Impression: - Medium-sized hiatal hernia. - Gastritis. - Normal duodenal bulb and second portion of the duodenum. - No specimens collected. Recommendation: - Patient has a contact number available for emergencies. The signs and symptoms of potential delayed complications were discussed with the patient. Return to normal activities tomorrow. Written discharge instructions were provided to the patient. - High fiber diet. - Continue present medications. - Use Pepcid (famotidine) 20 mg PO Twice daily ( take instructor knitting on empty stomach and at bedtime) for 6 weeks. - Resume Eliquis (apixaban) at prior dose tomorrow. - Return to primary care physician. Procedure Code(s): --- Professional --- 71936, Esophagogastroduodenoscopy, flexible, transoral; diagnostic, including collection of specimen(s) by brushing or washing, when performed (separate procedure) Diagnosis Code(s): --- Professional --- K44.9, Diaphragmatic hernia without obstruction or gangrene K29.70, Gastritis, unspecified, without bleeding D50.9, Iron deficiency anemia, unspecified R19.5, Other fecal abnormalities CPT copyright 2019 [employer]. All rights reserved. The codes documented in this report are preliminary and upon material control analyst review may be revised to meet current compliance requirements. Ashish Obrien MD Ashish Obrien MD 06/07/2020 3:26:43 PM Electronically signed by Ashish Obrien MD Number of Addenda: 0 Note Initiated On: 06/07/2020 2:20 PM Estimated Blood Loss: Estimated blood loss was minimal.
[2020-06-07 15:30] VITALS: BP 128/78
--- NOTE | 2020-06-07 15:32 | ROOR ---
Patient Name: Pete Javed Procedure Date: 06/07/2020 2:20 PM Date of : 1935 Age: 84 Room: [facility] Gender: Male Note Status: Finalized Procedure: Colonoscopy Indications: Heme positive stool, Iron deficiency anemia Providers: Ashish Obrien MD Referring MD: 2. Inpatient 2. Inpatient, Rey Pettit MD Requesting Provider: Medicines: Monitored Anesthesia Care Complications: No immediate complications. Procedure: Pre-Anesthesia Assessment: - Prior to the procedure, a History and Physical was performed, and patient medications and allergies were reviewed. The patient is unable to give consent secondary to the patient being legally incompetent to consent. The risks and benefits of the procedure and the sedation options and risks were discussed with the patient's guardian. All questions were answered and informed consent was obtained. Patient identification and proposed procedure were verified by the physician, the nurse and the anesthesiologist in the procedure room. Mental Status Examination: alert and oriented. Airway Examination: normal oropharyngeal airway and neck mobility. Respiratory Examination: clear to auscultation. CV Examination: normal. Prophylactic Antibiotics: The patient does not require prophylactic antibiotics. Prior Anticoagulants: The patient has taken no previous anticoagulant or antiplatelet agents. ASA Grade Assessment: II - A patient with mild systemic disease. After reviewing the risks and benefits, the patient was deemed in satisfactory condition to undergo the procedure. The anesthesia plan was to use monitored anesthesia care (MAC). Immediately prior to administration of medications, the patient was re-assessed for adequacy to receive sedatives. The heart rate, respiratory rate, oxygen saturations, blood pressure, adequacy of pulmonary ventilation, and response to care were monitored throughout the procedure. The physical status of the patient was re-assessed after the procedure. The Colonoscope was introduced through the anus and advanced to the terminal ileum, with identification of the appendiceal orifice and IC valve. The colonoscopy was performed without difficulty. The patient tolerated the procedure well. The quality of the bowel preparation was good. The terminal ileum, ileocecal valve, appendiceal orifice, and rectum were photographed. Scope insertion time was 3 minutes. Scope withdrawal time was 8 minutes. The total duration of the procedure was 15 minutes. Findings: The perianal and digital rectal examinations were normal. The terminal ileum appeared normal. Four sessile polyps were found in the descending colon, transverse colon and ascending colon. The polyps were 8 to 15 mm in size. These polyps were removed with a cold snare. Resection and retrieval were complete. For hemostasis, six hemostatic clips were successfully placed. There was no bleeding at the end of the procedure. One ligature was successfully placed. There was no bleeding at the end of the procedure. Verification of patient identification for the specimen was done by the physician and nurse using the patient's name, date and medical record number. Estimated blood loss was minimal. Multiple small-mouthed diverticula were found in the sigmoid colon. There was no evidence of diverticular bleeding. A single (solitary) fifteen mm ulcer was found in the distal rectum. No bleeding was present. No stigmata of recent bleeding were seen. Non-bleeding external and internal hemorrhoids were found during retroflexion. The hemorrhoids were large. Impression: - The examined portion of the ileum was normal. - Four 8 to 15 mm polyps in the descending colon, in the transverse colon and in the ascending colon, removed with a cold snare. Resected and retrieved. Clips were placed. Ligated. - Moderate diverticulosis in the sigmoid colon. There was no evidence of diverticular bleeding. - A single (solitary) ulcer in the distal rectum. - Non-bleeding external and internal hemorrhoids. Recommendation: - Patient has a contact number available for emergencies. The signs and symptoms of potential delayed complications were discussed with the patient. Return to normal activities tomorrow. Written discharge instructions were provided to the patient. - High fiber diet. - Continue present medications. - Use fiber, for example Citrucel, Fibercon, Konsyl or Metamucil. - Miralax 1 capful (17 grams) in 8 ounces of water PO BID. - Use hydrocortisone suppository 25 mg 1 per rectum once a day for 2 weeks. - Await pathology results. - Repeat colonoscopy is not recommended due to current age (66 years or older) for surveillance based on pathology results and depending on clinical and functional status. - Telephone GI clinic for pathology results in 2 weeks. - Resume Eliquis (apixaban) at prior dose tomorrow. Refer to primary physician for further adjustment of therapy. - Return to primary care physician. Procedure Code(s): --- Professional --- 41887, Colonoscopy, flexible; with removal of tumor(s), polyp(s), or other lesion(s) by snare technique Diagnosis Code(s): --- Professional --- K64.8, Other hemorrhoids K63.5, Polyp of colon K62.6, Ulcer of anus and rectum R19.5, Other fecal abnormalities D50.9, Iron deficiency anemia, unspecified K57.30, Diverticulosis of large intestine without perforation or abscess without bleeding CPT copyright 2019 [employer]. All rights reserved. The codes documented in this report are preliminary and upon senior oracle adf developer review may be revised to meet current compliance requirements. Ashish Obrien MD Ashish Obrien MD 06/07/2020 3:32:26 PM Electronically signed by Ashish Obrien MD Number of Addenda: 0 Note Initiated On: 06/07/2020 2:20 PM Estimated Blood Loss: Estimated blood loss was minimal.
--- NOTE | 2020-06-07 15:44 | CR.PDOC ---
General Date of Consultation: Jun 06, 2020 Referring Provider: ROBERT BOOKER MD Attending Physician: ERICK HARDING MD Consultation Referring physician / PCP : Dr. Robert Booker/ Dr. Pettit Reason for consult: Anemia and drop in hemoglobin HPI: 84 year old male patient with multiple comorbidities, including Hypertension, HLD, neuropathy, depression, COPD, BPH, CKD, current Cr 0.9, PVD with left limb ischemia, CAD/ atrial fibrillation on Eliquis and ASA, was admitted from [facility]U for worsening anemia and limb ischemia and ulceration. Patient had stool occult blood test which was positive. GI was consulted for Endoscopic work up prior to evaluation for Vascular stenting or limb amputation. Patient denies any active GI symptoms, no overt external bleeding. Pertinent negative GI symptoms: Patient denies nausea, vomiting, diarrhea, abdominal pain, loss of appetite, early satiety or unintentional weight loss, hematemesis, melena or hematochezia. Patient reports constipation. Review of Systems: GI: as stated above CVS: No chest pain, No palpitations, No leg swelling RS: No Shortness of breath, No Wheezing EAP CLINICIAN: No loss of consciousness, No focal motor weakness., Hematology: No easy bruising, No gum bleeding, Musculoskeletal: No joint pain, ambulating well. : No blood in urine, No burning sensation of the urine ENT: No ear discharge/ pain, No dysphagia. Eyes: No photophobia. Skin: No rash Home medications: reviewed. No Plavix and No anticoagulants Medical h/o: As above. Surgical h/o: None on abdomen. Social h/o: Denies Alcohol, smoking, IVDA/ drugs. Family h/o of GI cancers - None Prior Endoscopies: None in [facility]. --- EGD in 2016 -- Done by Dr. Brooks for dysphagia noted to have normal Z line, rest of the exam was normal. Biopsies at Z- line showed intestinal metaplasia. Prior GI evaluation: None in [facility] Exam: Vitals: reviewed General: Alert and oriented x 3, not in acute distress HEENT: No pallor, no icterus. Normal oropharynx, NO cervical lymphadenopathy. Chest: symmetric with bilateral air entry, CVS: S1, S2 heard, Abdomen: non-distended, soft, non-tender, no rigidity or guarding, no palpable masses, normal bowel sounds heard. Rectal exam: Patient refused / Deferred at this time in view of scheduled colonoscopy. Extremities: pulses palpable, no pedal edema, EAP CLINICIAN: no focal motor or sensory deficits. Moves all extremities Skin: no rash. Labs: reviewed. Imaging: none / reviewed. Impression: -- Chronic anemia with recent drop in hemoglobin and hematocrit with no overt external bleeding but noted ischemic ulcers in legs, Occult blood in stools DDx Likely multifactorial anemia Rule out GI causes -- PUD vs AVMs vs Colon p olyps/ mass. Anemia could also be contributed by the anemia of Chronic disease vs blood loss from leg ulcers. -- Severe leukocytosis Likely from Sepsis with ischemic limb.. Recommendations: -- Patient educated about the prior test results and all questions answered. -- Clear liquid diet and bowel prep for the scheduled procedure. -- NPO for 4 hours prior to procedure. -- Continue to hold Eliquis for 1 day if not contraindicated. -- Can continue with aspirin. -- Sepsis work up and antibiotics as per the primary team. -- Will schedule for EGD and Colonoscopy after the bowel prep. -- Patient educated about the procedure(s), indications, risks (including but not limited to bleeding, infection, perforation, anesthesia risks, including ), benefits and all alternatives including conservative measures without intervention. Patient wanted to get the consent from his granddaughter who is his health care proxy. So I explained the same to his granddaughter and informed consent obtained. -- Please follow operative note for post procedure recommendations. -- Plan of care educated to patient and patient verbalized understanding and agreed. All questions answered. -- Recommendations communicated to primary team. Patient to follow with PCP upon discharge for routine medical care. Vital Signs/I&O Vital Signs Date Time Temp Pulse Resp B/P (MAP) Pulse Ox O2 Delivery O2 Flow Rate FiO2 06/07/20 15:20 97 110 20 115/55 (75) 91 Room Air 06/07/20 14:00 2.0 I&O- Last 24 Hours up to 6 AM 06/07/20 05:59 Intake Total 620 ml Output Total 250 ml Balance 370 ml Laboratory Data Labs 24H Laboratory Tests 2 06/07/20 05:35: Nucleated Red Blood Cells % (auto) 0.0, Anion Gap 6L, Glomerular Filtration Rate > 60.0, Calcium Level 8.5L 06/07/20 07:50: Lactic Acid Level 0.9, Total Bilirubin 0.5, Direct Bilirubin 0.2, Aspartate Amino Transf (AST/SGOT) 12, Alanine Aminotransferase (ALT/SGPT) 11L, Alkaline Phosphatase 178H, Total Protein 4.5L, Albumin 1.8L, Albumin/Globulin Ratio 0.7, Amylase Level 23L, Lipase 64L, Procalcitonin 0.47 06/07/20 08:44: Urine Color YELLOW, Urine Appearance CLEAR, Urine pH 6.0, Urine Specific [place] 1.017, Urine Protein 1+H, Urine Glucose (UA) NEGATIVE, Urine Ketones TRACEH, Urine Blood 1+H, Urine Nitrite POSITIVEH, Urine Bilirubin NEGATIVE, Urine Urobilinogen 0.2, Urine Leukocyte Esterase NEGATIVE, Urine WBC (Auto) 8H, Urine RBC (Auto) 1, Urine Hyaline Casts (Auto) 0, Urine Bacteria (Auto) NEGATIVE, Urine Squamous Epithelial Cells 0, Urine Mucus (Auto) SMALL, Urine Sperm (Auto) , Coronavirus (COVID-19)(PCR) NEGATIVE CBC/BMP Laboratory Tests 06/07/20 05:35 Microbiology Microbiology 06/07/20 Urine Culture, Received Pending 06/07/20 Blood Culture, Received Pending 06/07/20 Blood Culture, Received Pending 06/07/20 Stool Occult Blood (PEG) - Final, Complete Allergies Coded Allergies: petrolatum,white (Verified Allergy, Mild, ITCH/RASH, 09/21/19) fluconazole (Verified Allergy, Unknown, UNKNOWN REACTION, 09/16/19) fluticasone (Verified Allergy, Unknown, UNKNOWN REACTION, 09/16/19) metformin (Verified Allergy, Unknown, UNKNOWN REACTION, 09/16/19) promethazine (Verified Adverse Reaction, Intermediate, Altered Mental Status , 09/21/19) azithromycin (Verified Adverse Reaction, Unknown, LOWERS BP, 09/16/19) clarithromycin (Verified Adverse Reaction, Unknown, LOWERS BP, 09/16/19) ondansetron (Verified Adverse Reaction, Unknown, Hallucinations, 05/27/20) Pt states he experiences hallucinations with medication procaine (Verified Adverse Reaction, Unknown, DIZZINESS, 09/16/19) Home Medications Scheduled Acetaminophen (Acetaminophen) 500 Mg Tablet, 1,000 MG PO QID, #1 Amiodarone HCl (Amiodarone HCl) 200 Mg Tablet, 200 MG PO DAILY, (Reported) Amiodarone HCl (Amiodarone HCl) 200 Mg Tablet, 200 MG PO DAILY, #1 Apixaban (Eliquis) 2.5 Mg Tab, 2.5 MG PO BID, (Reported) Apixaban (Eliquis) 2.5 Mg Tablet, 2.5 MG PO BID, #1 Aspirin (Aspirin EC) 81 Mg Tablet.dr, 81 MG PO DAILY, (Reported) NEW SCRIPT FROM 05/20/20 Aspirin (Aspirin EC) 81 Mg Tablet.dr, 81 MG PO DAILY, #1 Atenolol (Atenolol) 25 Mg Tablet, 25 MG PO BID, (Reported) Atenolol (Atenolol) 25 Mg Tablet, 25 MG PO BID, #1 Atorvastatin Calcium (Atorvastatin Calcium) 40 Mg Tablet, 40 MG PO DAILY, (Reported) NEW SCRIPT FROM 05/20/20 Atorvastatin Calcium (Atorvastatin Calcium) 20 Mg Tablet, 40 MG PO DAILY, #1 Budesonide/Formoterol (Symbicort 160-4.5 Mcg Inhaler) 6 Gm Hfa.aer.ad, 2 PUFF INH BID, (Reported) Budesonide/Formoterol (Symbicort 160-4.5 Mcg Inhaler) 6 Gm Hfa.aer.ad, 2 PUFF INH RBID, #1 Diltiazem Hcl (Cardizem Cd) 120 Mg Cap.er.24h, 120 MG PO DAILY, (Reported) per discussion with Dr. Dick 06/05/20, pt should be on Diltiazem CD 120 mg po daily, removing immediate release from med rec Finasteride (Finasteride) 5 Mg Tab, 5 MG PO DAILY, (Reported) Finasteride (Finasteride) 5 Mg Tablet, 5 MG PO DAILY, #1 Gabapentin (Gabapentin) 100 Mg Capsule, 200 MG PO Q8H for 1 Days, #6 Gabapentin (Gabapentin) 100 Mg Capsule, 200 MG PO TID, #1 Magnesium Sulfate (Epsom Salt) 1,920 Gm Granules, 1 DOSE TOP DAILY@1700, #1 [place]-3 Fatty Acids/Fish Oil (Fish Oil 1,000 mg Capsule) 1 Each Capsule, 1 CAP PO DAILY, (Reported) Pantoprazole Sodium (Pantoprazole Sodium) 40 Mg Tablet.dr, 40 MG PO BID, #1 Paroxetine HCl (Paroxetine HCl) 20 Mg Tablet, 20 MG PO DAILY, #1 Prednisone (Prednisone) 5 Mg Tab, 5 MG PO QAM, (Reported) Prednisone (Prednisone) 2.5 Mg Tablet, 2.5 MG PO QPM, (Reported) Prednisone (Prednisone) 5 Mg Tablet, 5 MG PO DAILY, #1 Prednisone (Prednisone) 2.5 Mg Tablet, 2.5 MG PO QPM, #1 Ropinirole HCl (Ropinirole HCl) 0.25 Mg Tablet, 0.25 MG PO QHS, (Reported) Ropinirole HCl (Requip) 0.25 Mg Tablet, 0.25 MG PO QHS, #1 Sucralfate (Sucralfate) 1 Gm Tablet, 1 GM PO AC, #1 Tamsulosin HCl (Flomax) 0.4 Mg Capsule, 0.4 MG PO QHS, #1 Tamsulosin Hcl (Tamsulosin HCl) 0.4 Mg Capsule, 0.4 MG PO QHS, (Reported) Scheduled PRN Acetaminophen (Acetaminophen) 500 Mg Tablet, 1,000 MG PO Q8H PRN for PAIN, (Reported) TAKES WITH TRAMADOL PRN Bismuth Subsalicylate (Pepto-Bismol) 262 Mg/15 Ml Oral.susp, 15 ML PO Q6HP PRN for GI UPSET, #1 Calcium Carbonate (Calcium Carbonate) 200 Mg Tab.chew, 1,000 MG PO Q4HP PRN for HEARTBURN, #1 Docusate Sodium (Dok) 100 Mg Capsule, 100 MG PO BID PRN for constipation., #1 Levalbuterol Hydrochloride (Xopenex Hfa) 15 Gm Hfa.aer.ad, 2 PUFF INH Q6H PRN for SHORTNESS OF BREATH, (Reported) Levalbuterol Hydrochloride (Xopenex Concentrate) 1.25 Mg/0.5 Ml Vial.neb, 1.25 MG INH Q2HP PRN for SOB/WHEEZING, #1 Tramadol HCl (Tramadol HCl) 50 Mg Tablet, 50 MG PO Q12HP PRN for PAIN >6/10, #1 ERICK HARDING MD Jun 07, 2020 15:44
[2020-06-07] MEDS: MORPHINE 2 MG/ML 1ML VIAL (J2270) IV PRN (16:21)
--- NOTE | 2020-06-07 18:44 | CR ---
CONSULTATION DATE: 06/06/2020 Advanced wound care consult via Telemedicine CONSULT REQUESTED BY: Rey Pettit M.D. REASON FOR CONSULTATION: This is regarding multiple wounds involving the left lower extremity and recent traumatic wounds involving the right and left arms. HISTORY OF PRESENT ILLNESS: An 84-year-old male admitted for advanced peripheral vascular disease and multiple arterial wounds involving the left foot, left great toe, left fifth toe and lateral malleolus. The patient has a code status of DNR/DNI, appears frail and is at a point where limb salvage is a concern. It is my understanding that he is scheduled for an arteriogram with possible angioplasty in the next few days. The patient had recent GI bleeding episodes and a GI consult has been ordered to rule out any occult lesions which may be responsible for this. He is nondiabetic. According to the nurses who were involved in this consult, the patient was recently transferred to PRU, had multiple falls and sustained multiple hematomas involving the left hand and wrist, left upper arm and the right antecubital fossa. He was returned to [facility] from [facility] for further workup. PHYSICAL EXAMINATION: The left heel shows a wound measuring 5.5 cm x 6.5 cm. There is a wound involving the distal aspect of the right great toe measuring 2.5 cm x 2.0 cm, a wound involving the left lateral fifth toe measuring 1.0 cm x 1.0 cm and the left lateral malleolar area, wound measuring 0.5 cm x 0.5 cm. These wounds present as dry ischemic eschars and will eventually require debridement if vascular intervention is performed and is successful. Without revascularization, debridement of these wounds should be placed on hold unless there is significant deterioration with erythema, liquification and fluctuation of the eschars covering the wounds. In terms of the recent traumatic hematomas, the left hand and wrist shows a large hematoma measuring 8.0 cm x 2.0 cm. The left lateral upper arm shows a hematoma measuring 8.5 cm x 4.5 cm and on the right antecubital fossa, there is a wound which is Steri-Stripped and difficult to measure exactly. Traumatic hematomas have produced overlying skin necrosis and at present are stable but quite large. Eventual treatment for these will be to completely excise the necrotic tissue and evacuate the hematoma. This at present is not endangering limb loss, however will not heal on its own without debridement intervention. Priority is his left lower extremity For the time being, covering the wounds with Xeroform gauze would be appropriate, along with mild compression utilizing Tubigrip stocking for the upper extremities. In terms of the left multiple wounds involving the foot, cover dressings with foam can be utilized initially and the eschars can be painted with Betadine prior to foam coverage. Heel float boot is mandatory for all floating purposes. The patient's nutritional status should be augmented with Ensure and Cuong. There is no evidence of pressure injuries involving the sacrum at this time. GENERAL OVERALL IMPRESSION: An elderly, frail patient with multiple comorbidities including occult upper GI bleed which is yet to be investigated and impending limb loss of left lower extremity as evidenced by multiple arterial wounds and an unknown peripheral vascular disease status. ZOED
[2020-06-07 22:00] VITALS: BP 125/78
[2020-06-08] MEDS: MORPHINE 2 MG/ML 1ML VIAL (J2270) IV PRN ×4 (00:07→21:06)
[2020-06-08] MEDS: PIPERACILLIN/TAZOBACTAM SOD 3.375 GM in D5W MINI-BAG PLUS 50 ML IV SCH ×4 (03:12→21:25)
[2020-06-08] MEDS: traMADol 50 MG TAB PO PRN ×3 (05:18→18:34)
[2020-06-08 05:56] LABS: HEMATOCRIT 26.3 % (42.0-52.0); HEMOGLOBIN 8.4 g/dl (13.5-17.5); MEAN CORPUSCULAR HEMOGLOBIN 29.9 pg (27.0-33.0); MEAN CORPUSCULAR HGB CONC 31.9 g/dl (32.0-36.5); MEAN CORPUSCULAR VOLUME 93.6 fl (80.0-96.0); PLATELET COUNT, AUTOMATED 270 10^3/uL (150-450); RED BLOOD COUNT 2.81 10^6/uL (4.30-6.10); WHITE BLOOD COUNT 20.5 10^3/uL (4.0-10.0)
[2020-06-08 06:00] VITALS: BP 119/75
[2020-06-08 06:24] LABS: CALCIUM LEVEL 7.9 MG/DL (8.8-10.2); CREATININE FOR GFR 1.36 MG/DL (0.70-1.30); POTASSIUM SERUM 3.3 MEQ/L (3.5-5.1)
[2020-06-08] MEDS: KCL 40MEQ in NS 1000ML 1,000 ML IV SCH ×2 (07:27→18:34)
[2020-06-08] MEDS: ATORVASTATIN 20 MG TAB PO SCH (08:01)
[2020-06-08] MEDS: ASPIRIN 81MG ENTERIC TABLET PO SCH (08:01)
[2020-06-08] MEDS: AMIODARONE 200 MG TAB (PACERONE) PO SCH (08:17)
[2020-06-08] MEDS: atenoloL 25 MG TAB PO SCH ×2 (08:17→19:55)
--- NOTE | 2020-06-08 08:36 | IPNPDOC ---
Date Seen The patient was seen on 06/08/20. Progress Note Patient seen and examined. We discussed again this morning recommendation for left above-knee amputation. Unfortunately, the patient has such severe peripheral vascular disease, not amenable to a sufficient revascularization to heel the pressure ulcer on the left heel, the gangrene of the left first toe, and the multiple other wounds of the left foot. He is in exquisite pain with any manipulation of the foot. Examine the wounds today and they're still stable and intact with no drainage. The heel is fluctuant, but not necessarily due to abscess or fluid collection, more due to loss of tissue. I don't see any erythema or induration or ascending red streaks to suggest worsening infection, but his white blood cell count is still 20 today. His chest x-ray looks okay, UA is negative, urine culture pending, blood cultures pending, but overall I suspect his white blood cell count increases due to the left foot. After discussion about all of this with the patient, he is still apprehensive to discuss amputation. I was hoping to speak with the patient and his granddaughter yesterday together, but he was getting his endoscopies in the afternoon when I was available. We will try again today. We tentatively have the patient on the schedule for tomorrow, but there is no urgency at the moment as I do not see wet gangrene or profound infection. This of course could change rapidly, and we wo uld prefer to intervene soon, if the patient and his granddaughter would prefer to wait, we certainly are willing to do that if he can tolerate the pain. I will discuss this with him again later today. If we are not going to do amputation, we will restart the eliquis as our GI colleagues feel that it is safe at this time. We appreciate the opportunity to participate in the care of this patient. VS, I&O, 24H, Fishbone Vital Signs/I&O Vital Signs Date Time Temp Pulse Resp B/P (MAP) Pulse Ox O2 Delivery O2 Flow Rate FiO2 06/08/20 08:17 116 115/73 06/08/20 08:15 19 06/08/20 06:00 99.1 96 Nasal Cannula 0.5 I&O- Last 24 Hours up to 6 AM 06/08/20 06:00 Intake Total 1547 ml Output Total 400 ml Balance 1147 ml Laboratory Data 24H LABS Laboratory Tests 2 06/07/20 08:44: Urine Color YELLOW, Urine Appearance CLEAR, Urine pH 6.0, Urine Specific [place] 1.017, Urine Protein 1+H, Urine Glucose (UA) NEGATIVE, Urine Ketones TRACEH, Urine Blood 1+H, Urine Nitrite POSITIVEH, Urine Bilirubin NEGATIVE, Urine Urobilinogen 0.2, Urine Leukocyte Esterase NEGATIVE, Urine WBC (Auto) 8H, Urine RBC (Auto) 1, Urine Hyaline Casts (Auto) 0, Urine Bacteria (Auto) NEGATIVE, Urine Squamous Epithelial Cells 0, Urine Mucus (Auto) SMALL, Urine Sperm (Auto) , Coronavirus (COVID-19)(PCR) NEGATIVE 06/08/20 05:11: Nucleated Red Blood Cells % (auto) 0.0, Anion Gap 6L, Glomerular Filtration Rate 53.0, Calcium Level 7.9L CBC/BMP Laboratory Tests 06/08/20 05:11 Microbiology Microbiology 06/07/20 Urine Culture, Received Pending 06/07/20 Blood Culture - Preliminary, Resulted No growth after 24 hours . All specim... 06/07/20 Blood Culture - Preliminary, Resulted No growth after 24 hours . All specim... 06/07/20 Stool Occult Blood (PEG) - Final, Complete ELOINA MIJARES MD Jun 08, 2020 08:36
[2020-06-08] MEDS: METAMUCIL (PSYLLIUM) PACKET PO SCH ×2 (09:00→19:16)
[2020-06-08] MEDS ORDERED: FAMOTIDINE 20 MG TAB PO SCH (09:00)
--- NOTE | 2020-06-08 11:53 | IPNPDOC ---
Date Seen The patient was seen on 06/08/20. Progress Note SUBJECTIVE: Patient was seen and examined this morning. He had received his colonoscopy yesterday. He continues to have significant lower extremity pain. Patient states he is feeling a little down as he was told that he would potentially be losing his leg. No adverse events were reported overnight OBJECTIVE PHYSICAL EXAMINATION: VITAL SIGNS: Please see below. GENERAL: Awake, alert, and oriented. Appears in no acute distress. Lying in bed comfortably HEENT: Atraumatic, normocephalic. Eyes are nonicteric. Trachea is midline. Mucous membranes are slightly dry CARDIOVASCULAR: Normal S1, S2. Regular rate and rhythm. No clicks, rubs, or murmurs RESPIRATORY: Clear breath sounds bilaterally. Diminished in the bases. No wheezes, rhonchi, or rales ABDOMINAL: Soft, nondistended. Nontender. Normoactive bowel sounds EXTREMITIES: No edema. Patient skin was examined in full yesterday. Two skin tears to the LUE are currently bandaged. Bilateral heel wounds not examined this morning. Currently bandaged. Pressure boots in place bilaterally NEUROLOGICAL: No focal neurological deficits PSYCHOLOGICAL: Mood and affect appropriate for the situation LABORATORY DATA, IMAGING STUDIES, MICROBIOLOGY: Please see below. DVT prophylaxis ordered?: Mechanical ASSESSMENT AND PLAN: Patient is an 84 year old male with a past medical history significant for severe peripheral vascular disease, peripheral neuropathy, GERD, COPD, BPH, CKD, and chronic upper abdominal pain with Hemoccult positive stool who was transferred from [facility] for Left lower limb ischemia. Patient was evaluated by Vascular surgery with recommendations for above the knee amputation. Patient was noted to have anemia with possible lower GI bleed. Colonoscopy was performed yesterday which did not demonstrate any definitive etiology. Patient is planned for a AKA tomorrow. PROBLEMS: 1. Left limb ischemia 2/2 peripheral vascular disease -Patient has a history of vascular disease. He has been followed by Vascular surgery on previous admission. Unfortunately he had developed woresening ischemia of his Left lower extremity while at [facility]. Given his findings Vascular surgery recommendations are for a left above the knee amputation. -Vascular surgery is following. Recommendations and assistance are appreciated -Plan to have above the knee amputation tomorrow -Patient fluctuant area of left heel. Likely secondary to his ongoing ischemia. Wound care per Dr. Brooks. 2. Skin Tears 2/2 mechanical fall -Skin tears on bilateral upper extremities 2/2 fall previously. Wounds were examined yesterday. Appeared clean and not cellulitis. Wound care per Dr. Brooks 3. Anemia 2/2 GI bleed -Patient has a history of Hemoccult positive stool. He had colonoscopy performed yesterday which demonstrated four 8-15 mm polyps in the descending colon, transverse colon, and in the ascending colon which were removed. There was diverticulosis without diverticular bleed and a single solitary ulcer in the distal rectum. His Xarelto is currently held due to potential AKA tomorrow. If patient decides not to go through with this then we will resume anticoagulation -Recommendations from GI appreciated. -Will start Metamucil, Miralax BID -Will continue to monitor -Upper endoscopy demonstrating scattered inflammation characterized by erythemahydr and granularity in the gastric antrum. Will start PEPCID 20mg PO BI D 4. Leukocytosis -Patient has leukocytosis. Chest x-ray demonstrated a small possible LLL infiltrate however this could also be atelectasis. Patient has been afebrile. He does not have a cough. Given his long hospitalization he has been started on Zosyn. Will add a MRSA screen. Procalcitonin is elevated. In the setting of his ischemia his leukocytosis and procalcitonin could be elevated. Will repeat a procalcitonin tomorrow -Continue with incentive spirometry -Continue Zosyn -Will repeat procalcitonin tomorrow 5. DEVAN on CKD -Patient has elevated Cr today. 1.36 from 0.78. Likely pre-renal from poor oral intake and diarrhea from bowel pre yesterday. -IV fluids ordered. Will continue and monitor Cr. Avoid nephrotoxic agents 6. Rectal Ulcer -Rectal ulcer identified on Colonoscopy. -Will start hydrocortisone supp 25mg 1 per rectum once a day for 2 weeks 7. Chronic Atrial Fibrillation -Rate controlled. Eliquis on hold for potential AKA tomorrow. -Continue Amiodarone, Diltiazem, and Atenolol 8. Hyperlipidemia -Continue Atorvastatin 9. COPD with chronic hypoxic respiratory failure requiring 2L NC -Currently stable 10. DVT Prophylaxis -Continue SCDs DISPOSITION: Possible left AKA tomorrow. Patient will likely eventually need rehab when closer to discharge VS, I&O, 24H, Fishbone Vital Signs/I&O Vital Signs Date Time Temp Pulse Resp B/P (MAP) Pulse Ox O2 Delivery O2 Flow Rate FiO2 06/08/20 10:45 0.5 06/08/20 08:17 116 115/73 06/08/20 08:15 19 06/08/20 06:00 99.1 96 Nasal Cannula I&O- Last 24 Hours up to 6 AM 06/08/20 05:59 Intake Total 1247 ml Output Total 400 ml Balance 847 ml Laboratory Data 24H LABS Laboratory Tests 2 06/08/20 05:11: Nucleated Red Blood Cells % (auto) 0.0, Anion Gap 6L, Glomerular Filtration Rate 53.0, Calcium Level 7.9L CBC/BMP Laboratory Tests 06/08/20 05:11 Microbiology Microbiology 06/07/20 Urine Culture, Received Pending 06/07/20 Blood Culture - Preliminary, Resulted No growth after 24 hours . All specim... 06/07/20 Blood Culture - Preliminary, Resulted No growth after 24 hours . All specim... 06/07/20 Stool Occult Blood (PEG) - Final, Complete GME ATTESTATION GME ATTESTATION My faculty preceptor for this patient encounter was physically present during the encounter and was fully available. All aspects of the patient interview, examination, medical decision making process, and medical care plan development were reviewed and approved by the faculty preceptor. The faculty preceptor is aware and concurs with the plan as stated in the body of this note and will attest to such by his/her cosignature. ATTENDING NOTE I, Ciaran More, have independently examined this patient and performed my own physical exam, as well as reviewed the documentation and edited where necessary. I have discussed in detail with the resident / student the findings and plan of treatment as documented by the resident / student and edited their note. I agree with their findings and treatment plan and have edited their documentation. I will continue to follow the patient during this hospital stay. VAN PIERSON DO Jun 08, 2020 11:53 CIARAN MORE MD Jun 08, 2020 15:07
[2020-06-08] MEDS: MIRALAX *UNIT DOSE* 17GM PACKET PO SCH (12:42)
[2020-06-08 14:00] VITALS: BP 114/73
[2020-06-08] MEDS: ANUSOL HC 25MG SUPP PR SCH (19:54)
[2020-06-08 22:00] VITALS: BP 111/74
[2020-06-09] VITALS (10 sets, daily range): BP systolic 109–126; BP diastolic 72–86
[2020-06-09] MEDS: traMADol 50 MG TAB PO PRN ×2 (02:19→21:51)
[2020-06-09] MEDS: MORPHINE 2 MG/ML 1ML VIAL (J2270) IV PRN ×2 (03:19→23:39)
[2020-06-09] MEDS: PIPERACILLIN/TAZOBACTAM SOD 3.375 GM in D5W MINI-BAG PLUS 50 ML IV SCH ×4 (03:20→21:49)
[2020-06-09 06:21] LABS: HEMATOCRIT 27.5 % (42.0-52.0); HEMOGLOBIN 8.5 g/dl (13.5-17.5); MEAN CORPUSCULAR HEMOGLOBIN 29.3 pg (27.0-33.0); MEAN CORPUSCULAR HGB CONC 30.9 g/dl (32.0-36.5); MEAN CORPUSCULAR VOLUME 94.8 fl (80.0-96.0); PLATELET COUNT, AUTOMATED 309 10^3/uL (150-450); WHITE BLOOD COUNT 26.5 10^3/uL (4.0-10.0)
[2020-06-09 06:41] LABS: CALCIUM LEVEL 8.3 MG/DL (8.8-10.2); CREATININE FOR GFR 1.81 MG/DL (0.70-1.30); GLOMERULAR FILTRATION RATE 38.1 (>35); POTASSIUM SERUM 4.5 MEQ/L (3.5-5.1)
[2020-06-09 07:41] LABS: AMORPHOUS SEDIMENT SMALL (NEGATIVE); APPEARANCE, URINE HAZY (CLEAR); BACTERIA, URINE AUTO 1+ (NEGATIVE); BILIRUBIN, URINE AUTO NEGATIVE (NEGATIVE); BLOOD, URINE BLOOD 2+ (NEGATIVE); COLOR, URINE YELLOW (YELLOW); GLUCOSE, URINE (UA) AUTO NEGATIVE (NEGATIVE); KETONE, URINE AUTO NEGATIVE (NEGATIVE); LEUKOCYTE ESTERASE, URINE AUTO TRACE (NEGATIVE); NITRITE, URINE AUTO NEGATIVE (NEGATIVE); PROTEIN, URINE AUTO 1+ mg/dL (NEGATIVE); RBC, URINE AUTO 10 /HPF (0-3); SPECIFIC GRAVITY URINE AUTO 1.019 (1.002-1.035); SQUAMOUS EPITHELIAL CELL UR AU 0 /HPF (0-6); URIC ACID CRYSTALS SMALL; UROBILINOGEN, URINE AUTO 0.2 mg/dL (0.0-2.0); WBC, URINE AUTO 9 /HPF (0-3)
--- NOTE | 2020-06-09 07:55 | IPNPDOC ---
Date Seen The patient was seen on 06/09/20. Progress Note Patient seen and examined. He had a long discussion with me yesterday, and with his granddaughter last night, and he has decided that he is willing to undergo the left above-knee amputation today. The patient still has some waxing and waning delirium, so we did obtain phone consent from his granddaughter this morning with his night nurse to witness. We have had multiple discussions this week about the risks benefits and alternatives to a left AKA. Informed consent was obtained. We'll proceed later this morning. Patient should remain nothing by mouth. He is on its way down for an ultrasound of the kidneys right now. I spoke with Dr. Roca, who says his creatinine has increased to 1.8. I think this is likely prerenal. The patient per the nurses having very little to drink. I think some gentle hydration will likely resolve the issue. We will continue to follow closely. VS, I&O, 24H, Fishbone Vital Signs/I&O Vital Signs Date Time Temp Pulse Resp B/P (MAP) Pulse Ox O2 Delivery O2 Flow Rate FiO2 06/09/20 06:00 99.2 118 20 118/74 (89) 96 Nasal Cannula 0.5 I&O- Last 24 Hours up to 6 AM 06/09/20 06:00 Intake Total 2490 ml Output Total 350 ml Balance 2140 ml Laboratory Data 24H LABS Laboratory Tests 2 06/08/20 11:51: Lactic Acid Level 0.9 06/08/20 12:33: Methicillin-Resist S.aureus DNA PCR NOT DETECTED 06/09/20 05:15: 06/09/20 05:18: Nucleated Red Blood Cells % (auto) 0.0, Anion Gap 8, Glomerular Filtration Rate 38.1, Calcium Level 8.3L 06/09/20 07:25: Urine Color YELLOW, Urine Appearance HAZY, Urine pH 5.0, Urine Specific [place] 1.019, Urine Protein 1+H, Urine Glucose (Auto)(UA) NEGATIVE, Urine Ketones (Auto) NEGATIVE, Urine Blood 2+H, Urine Nitrite NEGATIVE, Urine Bilirubin NEGATIVE, Urine Urobilinogen 0.2, Urine Leukocyte Esterase (Auto) TRACEH, Urine WBC (Auto) 9H, Urine RBC (Auto) 10H, Urine Hyaline Casts (Auto) 0, Urine Bacteria (Auto) 1+H, Urine Squamous Epithelial Cells 0, Urine Uric Acid Crystals (Auto) SMALL, Urine Amorphous Sediment (Auto) SMALLH, Urine Sperm (Auto) CBC/BMP Laboratory Tests 06/09/20 05:18 Microbiology Microbiology 06/07/20 Urine Culture - Final, Complete Staphylococcus Epidermidis 06/07/20 Blood Culture - Preliminary, Resulted No growth after 24 hours . All specim... 06/07/20 Blood Culture - Preliminary, Resulted No growth after 24 hours . All specim... 06/07/20 Stool Occult Blood (PEG) - Final, Complete ELOINA MIJARES MD Jun 09, 2020 07:55
[2020-06-09 08:09] LABS: SODIUM,RANDOM URINE 32 MEQ/L
[2020-06-09] MEDS ORDERED: fentaNYL 100 MCG/2 ML INJECTION (J3010) As Ordered ONE (08:10)
[2020-06-09] MEDS ORDERED: MIDAZOLAM INJ 2MG/2ML VIAL (J2250 PER 1MG) As Ordered ONE (08:10)
[2020-06-09] MEDS ORDERED: ONDANSETRON 4MG/2ML VIAL As Ordered ONE (08:11)
[2020-06-09] MEDS ORDERED: HYDROmorphone HCL 2 MG/ML 1ML VIAL (J1170) As Ordered ONE (08:11)
[2020-06-09] MEDS ORDERED: dexameTHASONE 4 MG/ML 1ML VIAL (J1100 PER 1MG) As Ordered ONE (08:12)
[2020-06-09] MEDS ORDERED: LIDOCAINE 2% 100MG/5ML SDV (FOR ANES.) As Ordered ONE (08:12)
[2020-06-09] MEDS ORDERED: propofoL 200 MG/20 ML VIAL As Ordered ONE (08:12)
[2020-06-09] MEDS ORDERED: ROCURONIUM BROMIDE 50 MG/5 ML VIAL As Ordered ONE (08:12)
--- NOTE | 2020-06-09 08:19 | REP ---
INDICATION: DEVAN COMPARISON: 09/21/2019 TECHNIQUE: Real time cruz scale ultrasound examination using curved array transducer. FINDINGS: Bilateral kidneys are normal in reniform shape with cortical thinning and increased central sinus fat. No hydronephrosis, obvious nephrolithiasis, cystic or mass lesion appreciated. Right kidney measures 12.1 x 3.8 x 4.7 cm. Left kidney measures 12.1 x 4.9 x 5.0 cm. Bladder is partially collapsed and grossly unremarkable. IMPRESSION: 1. Chronic medical renal disease. 2. No hydronephrosis. <Electronically signed by Abhilash Nieves > 06/09/20 0815
[2020-06-09] MEDS: atenoloL 25 MG TAB PO SCH ×2 (08:41→21:53)
[2020-06-09] MEDS: NS 1,000 ML IV SCH ×2 (08:42→17:10)
[2020-06-09] MEDS: AMIODARONE 200 MG TAB (PACERONE) PO SCH (08:42)
[2020-06-09] MEDS: ATORVASTATIN 20 MG TAB PO SCH (09:00)
[2020-06-09] MEDS: ASPIRIN 81MG ENTERIC TABLET PO SCH (09:00)
[2020-06-09] MEDS: MIRALAX *UNIT DOSE* 17GM PACKET PO SCH (09:00)
[2020-06-09] MEDS: METAMUCIL (PSYLLIUM) PACKET PO SCH (09:00)
[2020-06-09 09:17] LABS: ALBUMIN 1.7 GM/DL (3.2-5.2); BILIRUBIN,DIRECT 0.3 MG/DL (0.0-0.2); BILIRUBIN,TOTAL 0.6 MG/DL (0.2-1.0); TOTAL PROTEIN 5.3 GM/DL (6.4-8.2)
--- NOTE | 2020-06-09 09:19 | REP ---
INDICATION: pna, leukocytosis COMPARISON: 03/31/2019 TECHNIQUE: Axial noncontrast images from the thoracic inlet to the upper abdomen with coronal and sagittal reformations. This CT examination was performed using the following dose reduction techniques: Automated exposure control, adjustment of mA and/or kv according to the patient's size, and use of iterative reconstruction technique. FINDINGS: Chronic emphysematous changes along with cardiomegaly and evidence for pulmonary vascular congestion noted. Bilateral atelectasis and small left lower lobe early consolidation along with small bilateral pleural effusions noted. No significant adenopathy. No pneumothorax. Atherosclerotic changes to the aorta and coronary arteries. Small amount of chronic pericardial fluid noted. Pacemaker in satisfactory position. Musculoskeletal structures without acute osseous abnormality. IMPRESSION: 1. Cardiomegaly and findings to suggest pulmonary vascular congestion. 2. Mild bibasilar atelectasis and small early left lower lobe consolidation along with small bilateral pleural effusions. 3. Chronic emphysematous changes suggested. <Electronically signed by Abhilash Nieves > 06/09/20 [id number]
--- NOTE | 2020-06-09 09:24 | REP ---
INDICATION: leukocytosis COMPARISON: 05/21/2020 TECHNIQUE: Axial noncontrast images from the lung bases to the pubic symphysis with coronal and sagittal reformations. This CT examination was performed using the following dose reduction techniques: Automated exposure control, adjustment of mA and/or kv according to the patient's size, and use of iterative reconstruction technique. FINDINGS: Lung bases are clear. Visualized heart and pericardium normal. Liver includes stable 2 cm cyst in the left lobe. Spleen, pancreas, and bilateral adrenal glands are normal. Gallbladder is mildly distended and demonstrates layering sludge. Kidneys demonstrate chronic perinephric stranding and renovascular calcifications without hydronephrosis. Small stable poorly defined rounded lesions may represent complex cysts. The enteric system is unremarkable and without obstruction or acute inflammatory process. Normal terminal ileum and appendix identified in the right lower quadrant. Sigmoid diverticula noted without acute diverticulitis. Pelvis demonstrates prostatomegaly with mass effect on the base of the bladder. Extensive atherosclerotic changes to the aorta and vasculature noted without aneurysm. No free air. No ascites. No significant intraperitoneal or retroperitoneal adenopathy. Musculoskeletal structures demonstrate age-related degenerative changes. IMPRESSION: No acute abdominopelvic pathology appreciated. Chronic nonacute findings as described above similar to prior examination. <Electronically signed by Abhilash Nieves > 06/09/20 [id number]
[2020-06-09] MEDS ORDERED: BUPIVACAINE/EPIN 0.5% 30 ML VIAL As Ordered ONE (09:30)
[2020-06-09 09:34] LABS: OSMOLALITY URINE 336 MOSM/KG (50-1400)
[2020-06-09] MEDS ORDERED: fentaNYL 250 MCG/5 ML INJECTION (J3010) As Ordered ONE (09:51)
[2020-06-09] MEDS ORDERED: ZOSYN 3.375GM VIAL (J2543) As Ordered ONE (09:59)
[2020-06-09] MEDS ORDERED: VASOPRESSIN INJ 20 UNITS/ML VIAL As Ordered ONE (10:10)
[2020-06-09] MEDS ORDERED: ACETAMINOPHEN 1000MG 100ML IV BTL (OFIRMEV) (J0131 PER 10MG) As Ordered ONE (10:23)
[2020-06-09] MEDS ORDERED: SUGAMMADEX SODIUM 500 MG/5 ML VIAL (BRIDION) As Ordered ONE (11:01)
--- NOTE | 2020-06-09 11:29 | IPNPDOC ---
Date Seen The patient was seen on 06/09/20. Progress Note SUBJECTIVE: Patient was seen and examined this morning. He is currently planned for a Left AKA this morning. He continues to have pain in his left leg. Additionally the patient has admitted to some abdominal pain this morning. Mostly located in the right upper quadrant. He has remained afebrile. There have been no adverse events reported overnight OBJECTIVE PHYSICAL EXAMINATION: VITAL SIGNS: Please see below. GENERAL: Cachetic appearing. Awake, alert, and oriented. Appears in no acute di stress. Lying in bed. Appears to be in pain HEENT: Atraumatic, normocephalic. Eyes are nonicteric. Trachea is midline. Mucous membranes are slightly dry CARDIOVASCULAR: Normal S1, S2. Regular rate and rhythm. No clicks, rubs, or murmurs RESPIRATORY: Clear breath sounds bilaterally. Diminished in the bases. No wheezes, rhonchi, or rales ABDOMINAL: Soft, nondistended. Tenderness of right upper quadrant. No rebound tenderness or guarding. Normoactive bowel sounds EXTREMITIES: No edema. Wounds are currently bandaged. Not examined today. Will reexamine during dressing changes NEUROLOGICAL: No focal neurological deficits PSYCHOLOGICAL: Mood and affect appropriate for the situation LABORATORY DATA, IMAGING STUDIES, MICROBIOLOGY: Please see below. DVT prophylaxis ordered?: Mechanical ASSESSMENT AND PLAN: Patient is an 84 year old male with a past medical history significant for severe peripheral vascular disease, peripheral neuropathy, GERD, COPD, BPH, CKD, and chronic upper abdominal pain with Hemoccult positive stool who was transferred from ARU for Left lower limb ischemia. Patient was evaluated by Vascular surgery with recommendations for above the knee amputation. Patient was noted to have anemia with possible lower GI bleed. Colonoscopy was performed which did not demonstrate any definitive etiology. Patient is planned for a AKA tomorrow. He has continued to develop worsening leukocytosis. Additionally, the patient has developed worsening DEVAN. PROBLEMS: 1. 1. Left limb ischemia 2/2 peripheral vascular disease -Patient has a history of vascular disease. He has been followed by Vascular surgery on previous admission. Unfortunately he had developed worsening ischemia of his Left lower extremity while at ARU. Given his findings Vascular surgery recommendations are for a left above the knee amputation. -Vascular surgery is following. Recommendations and assistance are appreciated -Patient is planned to have AKA today. He does have leukocytosis this morning as well as a worsening DEVAN. However, his ischemic limb is likely contributing in some degree to his leukocytosis. 2. SIRS/Sepsis -Patient has an elevated WBC. He is slightly tachycardiac. Currently no exact source of infection. Chest X-ray previously appeared to show a LLL infiltrate however clinically the patient did not appear to have a pneumonia. His Procalcitonin was elevated and he was started on Zosyn. He has remained afebrile. His elevation in WBC and Procalcitonin could be from his ischemic limb. -Have ordered a Chest CT and Abdomen/Pelvis CT today. However there is no definitive etiology identified. He does have bilateral pleural effusions and atelectasis. Repeat procalcitonin is elevated but no more then previously. Have added vancomycin for broader coverage. -ID consult placed due to worsening leukocytosis. Recommendations and assistance is appreciated -Will continue Vancomycin and Zosyn for now. 3. Acute Kidney Injury -Patient has had worsening DEVAN. Renal Ultrasound negative for any acute findings. U/A demonstrated some pyuria and microscopic hematuria. -FeNa suggest pre-renal azotemia. Possible dehydration from diarrhea after his colon prep and poor oral intake. He has been receiving IV fluids however without improvement in his Cr. He is making urine. -Medications were reviewed. He is not currently on any nephrotoxic medications. He has not received any IV contrast since admission. I have stopped the Pepcid for now. He is on Zosyn. Vancomycin has been added today which could worsen DEVAN however given his leukocytosis empiric coverage is needed -Will reach out to Nephrology for further recommendations however his DEVAN is likely secondary to pre-renal azotemia from dehydration. 3. Anemia 2/2 GI bleed -Patient has a history of Hemoccult positive stool. He had colonoscopy performed which demonstrated four 8-15 mm polyps in the descending colon, transverse colon, and in the ascending colon which were removed. There was diverticulosis without diverticular bleed and a single solitary ulcer in the distal rectum. -Recommendations from GI appreciated. -Will start Metamucil, Miralax BID -Will continue to monitor -Upper endoscopy demonstrating scattered inflammation characterized by erythema and granularity in the gastric antrum. Pepcid is currently on hold due to DEVAN -Continuing to hold Eliquis due to procedure 4. Rectal Ulcer -Rectal ulcer identified on Colonoscopy. -Will start hydrocortisone supp 25mg 1 per rectum once a day for 2 weeks 5. Chronic Atrial Fibrillation -Rate controlled. Eliquis on hold for potential AKA tomorrow. -Continue Amiodarone, Diltiazem, and Atenolol 6. Hyperlipidemia -Continue Atorvastatin 7. Skin Tears 2/2 mechanical fall -Skin tears on bilateral upper extremities 2/2 fall previously. Wounds were examined yesterday. Appeared clean and not cellulitis. Wound care per Dr. Moreira 8. COPD with chronic hypoxic respiratory failure requiring 2L NC -Currently stable 9. DVT Prophylaxis -Continue SCDs VS, I&O, 24H, Fishbone Vital Signs/I&O Vital Signs Date Time Temp Pulse Resp B/P (MAP) Pulse Ox O2 Delivery O2 Flow Rate FiO2 06/09/20 08:42 107 125/80 06/09/20 06:00 99.2 20 96 Nasal Cannula 0.5 I&O- Last 24 Hours up to 6 AM 06/09/20 06:00 Intake Total 2490 ml Output Total 350 ml Balance 2140 ml Laboratory Data 24H LABS Laboratory Tests 2 06/08/20 11:51: Lactic Acid Level 0.9 06/08/20 12:33: Methicillin-Resist S.aureus DNA PCR NOT DETECTED 06/09/20 05:15: Osmolality 295 06/09/20 05:18: Nucleated Red Blood Cells % (auto) 0.0, Anion Gap 8, Glomerular Filtration Rate 38.1, Calcium Level 8.3L, Total Bilirubin 0.6, Direct Bilirubin 0.3H, Aspartate Amino Transf (AST/SGOT) 9, Alanine Aminotransferase (ALT/SGPT) 8L, Alkaline Phosphatase 173H, Total Protein 5.3L, Albumin 1.7L, Albumin/Globulin Ratio 0.5, Amylase Level 36, Lipase 83, Procalcitonin 0.48 06/09/20 07:25: Urine Color YELLOW, Urine Appearance HAZY, Urine pH 5.0, Urine Specific [place] 1.019, Urine Protein 1+H, Urine Glucose (Auto)(UA) NEGATIVE, Urine Ketones (Auto) NEGATIVE, Urine Blood 2+H, Urine Nitrite NEGATIVE, Urine Bilirubin NEGATIVE, Urine Urobilinogen 0.2, Urine Leukocyte Esterase (Auto) TRACEH, Urine WBC (Auto) 9H, Urine RBC (Auto) 10H, Urine Hyaline Casts (Auto) 0, Urine Bacteria (Auto) 1+H, Urine Squamous Epithelial Cells 0, Urine Uric Acid Crystals (Auto) SMALL, Urine Amorphous Sediment (Auto) SMALLH, Urine Sperm (Auto) , Urine Osmolality 336, Urine Random Creatinine 125.0, Urine Random Sodium 32 CBC/BMP Laboratory Tests 06/09/20 05:18 Microbiology Microbiology 06/07/20 Urine Culture - Final, Complete Staphylococcus Epidermidis 06/07/20 Blood Culture - Preliminary, Resulted No Growth after 48 hours. All Specime... 06/07/20 Blood Culture - Preliminary, Resulted No Growth after 48 hours. All Specime... 06/07/20 Stool Occult Blood (PEG) - Final, Complete GME ATTESTATION GME ATTESTATION My faculty preceptor for this patient encounter was physically present during the encounter and was fully available. All aspects of the patient interview, examination, medical decision making process, and medical care plan development were reviewed and approved by the faculty preceptor. The faculty preceptor is aware and concurs with the plan as stated in the body of this note and will attest to such by his/her cosignature. ATTENDING NOTE I, Ciaran More, have independently examined this patient and performed my own physical exam, as well as reviewed the documentation and edited where necessary. I have discussed in detail with the resident / student the findings and plan of treatment as documented by the resident / student and edited their note. I agree with their findings and treatment plan and have edited their documentation. I will continue to follow the patient during this hospital stay. VAN PIERSON DO Jun 09, 2020 11:29 CIARAN MORE MD Jun 09, 2020 13:45
[2020-06-09 11:38] LABS: ATYPICAL LYMPH 1 % (0-5); LYMPHOCYTES 4 % (16-44); METAMYELOCYTES 3 % (0-0); MONOCYTES 10 % (0-5); MYELOCYTES 2 % (0-0); NEUTROPHILS 78 % (28-66)
[2020-06-09 11:39] LABS: ANISOCYTOSIS 1+; PLATELET ESTIMATE NORMAL (NORMAL); POIKILOCYTOSIS 1+; TOXIC VACUOLATION 1+
[2020-06-09] MEDS ORDERED: fentaNYL 100 MCG/2 ML INJECTION (J3010) IV PRN (11:45)
[2020-06-09] MEDS ORDERED: LR 1,000 ML IV SCH (11:45)
[2020-06-09] MEDS ORDERED: oxyCODONE 5MG TAB PO PRN (11:45)
--- NOTE | 2020-06-09 11:45 | ROOPDOC ---
[facility] Report Of Operation Report of Operation DATE OF PROCEDURE: 06/09/20 PREPROCEDURE DIAGNOSES: Atherosclerosis of the [place] arteries with nonhealing wounds left toe, foot, heel and severe rest pain POSTPROCEDURE DIAGNOSES: Same PROCEDURE: Left above-knee amputation SURGEON: Eloina Hodges MD ANESTHESIA: Gen. anesthesia and local INDICATION FOR PROCEDURE: This is a very pleasant 84-year-old gentleman with severe bilateral lower extremity vascular disease and bilateral lower extremity neuropathic pain. He has undergone proximal revascularization of the iliac arteries, and was scheduled to undergo a left femoral endarterectomy in the next week or 2 to improve inflow to the lower extremity from a nearly occluded distal common femoral artery, proximal profunda artery, superficial femoral artery. Unfortunately, in the interim, the patient had some increasing delirium, a fall from standing, and subsequent development of worsening ischemia to the left first toe, multiple wounds on the left foot, and a deep tissue ulcer of the left heel. Unfortunately, even with endarterectomy and attempts for angioplasty more distally, I do not believe we could provide enough blood flow to heal such a deep tissue injury to the left heel. The patient does not have adequate blood flow for a below-knee amputation. Therefore, I discussed the risks benefits and alternatives with the patient and his family for left above-knee amputation. We've had these discussions many times over the past few days, and last night and today the patient was agreeable to proceed. He still has some waxing and waning delirium, so his granddaughter gave consent, but the patient did give verbal consent as well. REPORT OF OPERATION: Patient was brought to the operating room in stable condition. His anesthesia and antibiotics were administered without complication. His left lower extremity was prepped and draped in a sterile fashion. A timeout was performed. The left lower extremity was exsanguinated with an Esmarch and a tourniquet was inflated. [place] incision with a longer posterior flap was fashioned at the knee. This was carried through the subcutaneous tissue with first a skin knife and the Bovie cautery. Continued the dissection through the muscle on the anterior aspect of the leg down to the femur. The femur was skeletonized circumferentially and the periosteum was elevated proximally. We identified the popliteal artery and vein and these were suture ligated and divided. We identified the greater saphenous vein and this was suture ligated and divided. We continued artery superficial dissection on the posterior aspect of the leg. Following this the femur was transected high with a slight anterior bevel. Bovie cautery was used to remove the rest of the soft tissue from the femur and complete the posterior flap. The lower leg was sent for pathology. Vascular structures were suture ligated and divided. The tourniquet was released. Fairly good hemostasis was noted, Bovie cautery was used for additional hemostasis. We irrigated with copious amounts of saline. A rasp was used to smooth the edges of the femur. We irrigated a second time. The periosteum and the posterior fascia were approximated to cover the femur. We then used [id number] Vicryl sutures to approximate the muscle fascia from the anterior and posterior aspect area we then closed the superficial fascia was [id number] Vicryl sutures, taking care not to have any gaps in the closure. We then utilized nylon mattress sutures to approximate the skin edges and skin saul were used as a final skin closure. The incision was cleaned and dried as well as the stump. Xeroform, fluffs, Kerlix, and a 4 inch Ok wrap breezes dressings. The patient was then allowed to awaken from anesthesia and taken to recovery in stable condition. He tolerated the procedure and the anesthesia well. SPECIMEN: Left leg sent for pathology ESTIMATED BLOOD LOSS: Approximately 100 mL. COMPLICATIONS: None. PLAN: Okay to resume pre-op diet and medication/orders per primary team. PT/OT and ARU eval for potential transfer to rehabilitation once patient is medically stable and optimized. Analgesia when necessary. Encourage high-protein diet to help with healing. Patient had very little muscle and very weak tissue, likely chronic protein malnutrition. We appreciate the opportunity to participate in the care of this patient. ELOINA HODGES MD Jun 09, 2020 11:45
[2020-06-09] MEDS: VANCOMYCIN HCL 1,000 MG, VIAL MATE ADAPTER 1 EACH in NS 250 ML IV SCH ×2 (12:30→23:38)
[2020-06-09] MEDS: ANUSOL HC 25MG SUPP PR SCH (21:49)
[2020-06-10 02:00] VITALS: BP 120/75
[2020-06-10] MEDS: NS 1,000 ML IV SCH ×2 (03:08→13:21)
[2020-06-10] MEDS: PIPERACILLIN/TAZOBACTAM SOD 3.375 GM in D5W MINI-BAG PLUS 50 ML IV SCH ×4 (04:09→22:25)
[2020-06-10] MEDS: traMADol 50 MG TAB PO PRN ×3 (04:22→18:17)
[2020-06-10] MEDS ORDERED: METOCLOPRAMIDE INJ 10MG/2ML VIAL (J2765 PER 1) IV PRN (04:30)
[2020-06-10 06:00] VITALS: BP 123/75
[2020-06-10 06:48] LABS: HEMATOCRIT 27.3 % (42.0-52.0); HEMOGLOBIN 8.2 g/dl (13.5-17.5); MEAN CORPUSCULAR HEMOGLOBIN 28.5 pg (27.0-33.0); MEAN CORPUSCULAR VOLUME 94.8 fl (80.0-96.0); PLATELET COUNT, AUTOMATED 303 10^3/uL (150-450); RED BLOOD COUNT 2.88 10^6/uL (4.30-6.10); WHITE BLOOD COUNT 24.7 10^3/uL (4.0-10.0)
[2020-06-10 07:00] LABS: CALCIUM LEVEL 7.6 MG/DL (8.8-10.2); CREATININE FOR GFR 1.84 MG/DL (0.70-1.30); GLOMERULAR FILTRATION RATE 37.4 (>35); POTASSIUM SERUM 4.8 MEQ/L (3.5-5.1)
[2020-06-10 07:30] LABS: ALBUMIN 1.6 GM/DL (3.2-5.2); BILIRUBIN,DIRECT 0.3 MG/DL (0.0-0.2); BILIRUBIN,TOTAL 0.5 MG/DL (0.2-1.0); TOTAL PROTEIN 4.7 GM/DL (6.4-8.2)
[2020-06-10] MEDS ORDERED: MIRALAX *UNIT DOSE* 17GM PACKET PO PRN (09:00)
[2020-06-10] MEDS: ATORVASTATIN 20 MG TAB PO SCH (09:27)
[2020-06-10] MEDS: atenoloL 25 MG TAB PO SCH ×4 (09:27→23:51)
[2020-06-10] MEDS: PARoxetine 20MG TABLET PO SCH (09:28)
[2020-06-10] MEDS: SUCRALFATE 1 GM TAB PO SCH ×3 (09:28→18:16)
[2020-06-10] MEDS: FINASTERIDE 5 MG TAB PO SCH (09:28)
[2020-06-10] MEDS: GABAPENTIN 100 MG CAP PO SCH ×5 (09:28→23:51)
[2020-06-10] MEDS: AMIODARONE 200 MG TAB (PACERONE) PO SCH (09:28)
[2020-06-10] MEDS: predniSONE 5 MG TAB PO SCH (09:28)
[2020-06-10] MEDS: ASPIRIN 81MG ENTERIC TABLET PO SCH (09:28)
[2020-06-10 10:00] VITALS: BP 125/72
[2020-06-10] MEDS: MORPHINE 2 MG/ML 1ML VIAL (J2270) IV PRN ×2 (10:09→16:18)
--- NOTE | 2020-06-10 10:53 | CR ---
INFECTIOUS DISEASE CONSULTATION DATE: 06/09/2020 REASON FOR CONSULTATION: Asked to consult by Dr. Roca for evaluation of worsening leukocytosis in a patient with severe peripheral vascular disease. HISTORY OF PRESENT ILLNESS: Mr. Javed is an 84-year-old gentleman who is seen postoperatively today after he had a left above-knee amputation. The patient was hospitalized on May 19, 2020 with difficulty walking due to severe pain in his right foot in the setting of ischemic left lower extremity requiring intervention. The patient's white count on admission was 12,000. He did not seem to have any infection, was evaluated on the acute floor and then transferred to acute rehabilitation, where he spent close to a month. He was being followed up by Dr. Hodges. He was going to undergo a salvage procedure of his left leg, but had multiple complications, including worsening ischemic findings of his left foot with a necrotic left big toe and heel, which eventually could not be salvaged and he underwent above knee amputation today. He had worsening leukocytosis June 03, 2020. His white count was 20,000. June 07, 2020, the patient had seven incontinent bowel movements, but he had received bowel prep for a colonoscopy/endoscopy as a workup of gastrointestinal (GI) bleeding and guaiac positive stool. The patient was found to have gastritis and hiatal hernia in the endoscopy and a few polyps that were benign-looking in the colonoscopy. This was done to be able to give him Eliquis in the setting of his vascular intervention. Patient had a fall on June 06, 2020 with trauma to his arm with multiple ulcerations, bleeding and hematoma with necrosis of the left arm. He had not had any fever with his elevated white count. He did not have a significant cough. He has a history of chronic obstructive pulmonary disease (COPD) and he chronically had been on prednisone, around 5 mg, since August of 2019. While he was in the hospital this past month, he was on 7.5 mg, but that has been tapered off and discontinued by June 05, 2020. He had no nausea or vomiting. The patient was in general weak. He could not give much of a history after surgery. PAST MEDICAL HISTORY: Significant for: 1. 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 2. A Watchman procedure on chronic low dose Eliquis. 3. History of peripheral neuropathy. 4. History of Clostridium (C) difficile diarrhea. 5. Dementia. 6. Chronic kidney disease stage III. 7. Restless leg syndrome. 8. Anemia of chronic disease with also recent guaiac positive stool. 9. Chronic obstructive pulmonary disease (COPD) on chronic oxygen and was steroid dependent since August of 2019 at 5 mg to 7.5 mg daily. 10. Peripheral vascular disease. 11. Dyslipidemia. 12. History of COVID pneumonia in July of 2019. 13. Metabolic encephalopathy with dementia. 14. Colonic polyps. PAST SURGICAL HISTORY: 1. History of pacemaker and Watchman procedure. 2. Cardiac ablation. 3. Multiple angioplasties of lower extremities with common iliac stent. 4. Endoscopy and colonoscopy. ALLERGIES: FLUCONAZOLE, FLUTICASONE, METOPROLOL, PETROLATUM, AZITHROMYCIN, CLAITHROMYCIN, PROCAINE. 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 His is in a skilled nursing on hospice. He is an ex-smoker. No drug or alcohol use. FAMILY HISTORY: Significant for coronary artery disease. REVIEW OF SYSTEMS: Was obtained from the nurses. He was having some recent abdominal pain, a rare cough postoperatively, pain in his legs as well as his arms from all of the ecchymosis and skin tear. PHYSICAL EXAMINATION: He is a frail, ill-appearing gentleman in no acute distress. HEENT: Oropharynx is clear, dry. Neck is supple. Jugular veins are not elevated. CHEST: There is a pacemaker in the left chest wall. HEART: Regular. No murmurs appreciated. Distant. LUNGS: Clear. No wheezes, rales or rhonchi. Diminished. ABDOMEN: Soft. Mildly tender in the epigastric area. EXTREMITIES: The right leg has no edema, but he has a pressure ulcer of the right heel with purplish discoloration measuring about 5 x 5 cm with surrounding erythema and tenderness. Left above knee amputation. Dressing was not open. He just came back from the operating room (OR). Upper extremities have multiple skin tears with ecchymosis and necrotic tissue on the left arm. I reviewed Dr. Brooks's note, as his dressing had been changed today. I did not reopen them, but there seems to be significant necrosis and bleeding that could also cause part of his leukocytosis. NEUROLOGIC: He is alert, but falls asleep easily after surgery. MEDICATIONS: - polyethylene glycol one packet by mouth daily as needed - vancomycin 1 gram IV every 12 hours - Zosyn 3.375 grams IV every 6 hours - morphine as needed - tramadol as needed - hydrocortisone 25 mg by mouth at bedtime - amiodarone 200 mg by mouth daily - diltiazem 120 mg daily - Lipitor 40 mg daily - atenolol 25 mg by mouth twice a day LABORATORY DATA: White count 26.5, hemoglobin 8.5, hematocrit 27.5, platelets 309, 78% neutrophils, 2% bands, 4% lymphocytes, 10% monocytes, 3% metamyelocytes, 2% myelocytes. Sodium 143, potassium 4.5, chloride 112, bicarbonate 23, BUN 21, creatinine 1.81, glucose 121, calcium 8.3. Bilirubin 0.6, AST 9, ALT 8, alkaline phosphatase 173, total protein 5.3, albumin 1.7, procalcitonin 0.48, cortisone level 23.2. Urinalysis on 06/07/2020 had 8 white cells; today had 9 white cells, 3 leukocyte esterase. Methicillin-resistant Staphylococcus aureus (MRSA) screen done on 06/08/2020 was negative. SARS-CoV-2 was negative. Blood cultures from 06/07/2020: No growth after 48 hours. Urine culture has methicillin resistant Staphylococcus epidermitis, more than 100,000. IMAGING DATA: CT chest, abdomen, pelvis shows cardiomegaly with pulmonary vascular congestion, mild basilar atelectasis and left lower lobe consolidation. CT abdomen and pelvis: No acute pathology. Renal ultrasound: Chronic medical renal disease. No hydronephrosis. IMPRESSION: This is an 84-year-old gentleman who has been hospitalized since May 19, 2020, has not been on any antibiotic, has had worsening leukocytosis since May 31, 2020 and today has had worsening white count up to 26,000. He has had diarrhea in the setting of colonoscopy with a laxative, but that has improved. He does not have any urinary symptoms. That Staphylococcus epidermitis is probably a contaminant and a real pathogen causing his leukocytosis. He does not have bacteremia. Other possible sources of infection of inflammatory reaction could be the severe necrosis of his skin, peripheral vascular disease with ischemia and ischemic ulcers. His CT chest shows a questionable left lower lobe infiltrate. Patient was started on IV Zosyn. MRSA screen was negative and therefore I do not suspect MRSA pneumonia. PLAN: Continue with IV Zosyn to cover for hospital-acquired pneumonia. I would not recommend using IV vancomycin. I do not think this urine culture does not need to be treated as he is asymptomatic. Will continue to monitor and will examine his upper extremities to make sure there is no infection. Consider getting upper extremity ultrasounds if there is significant swelling.
[2020-06-10] MEDS ORDERED: PINK BISMUTH SUSP 524MG/30ML ORAL SYRINGE PO PRN (11:20)
--- NOTE | 2020-06-10 13:14 | IPNPDOC ---
Date Seen The patient was seen on 06/10/20. Progress Note SUBJECTIVE: Patient was seen and examined this morning. He is currently post op day 1 for his left above the knee amputation. He does complain of pain in his left stump. Patient has also had a decreased appetite and some nausea last night and this morning. The patient did receive Reglan last night. The patients granddaughter who serves as his HCP is present at bedside this morning. She has expressed concern regarding him receiving Reglan. She states this medication makes him lightheaded and causes hallucinations. There were otherwise no adverse events reported overnight. OBJECTIVE PHYSICAL EXAMINATION: VITAL SIGNS: Please see below. GENERAL: Awake, alert, and oriented. Appears in no acute distress. Lying in bed. Appears in pain at times HEENT: Atraumatic, normocephalic. Eyes are nonicteric. Trachea is midline. Mucous membranes are pink and moist CARDIOVASCULAR: Normal S1, S2. Regular rate and rhythm. No clicks, rubs, or murmurs. RESPIRATORY: Clear breath sounds bilaterally. Decreased in the bases bilaterally. No wheezes, rhonchi or rales ABDOMINAL: Soft, nondistended. Nontender. Normoactive bowel sounds. EXTREMITIES: No edema. Left leg above the knee amputation. Left stump incision appears clean. Multiple skin tears currently bandaged and appear well healing. Right foot with areas of thin skin. Pressure dressings applied to right. Palpable pulses in right lower extremity NEUROLOGICAL: No focal neurological deficits PSYCHOLOGICAL: Mood and affect appear appropriate LABORATORY DATA, IMAGING STUDIES, MICROBIOLOGY: Please see below. DVT prophylaxis ordered?: Mechanical ASSESSMENT AND PLAN: Patient is an 84 year old male with a past medical history significant for severe peripheral vascular disease, peripheral neuropathy, GERD, COPD, chronic pain, gastroparesis, BPH, CKD, and chronic upper abdominal pain with Hemoccult positive stool who was transferred from [facility] for Left lower limb ischemia. Patient was evaluated by Vascular surgery with recommendations for above the knee amputation. Patient was noted to have anemia with possible lower GI bleed. Colonoscopy was performed which did not demonstrate any definitive etiology. He has continued to develop worsening leukocytosis. Additionally, the patient has developed worsening DEVAN. 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 PROBLEMS: 1. Left Limb Ischemia 2/2 Peripheral Vascular Disease -Patient has history of vascular disease. He is followed by vascular surgery. Recommendations and assistance is appreciated. Patient is currently post op day 1 for left above the knee amputation. His surgery went without complication. -Patient has had decreased oral intake secondary to pain and nausea. This may impair wound healing. He has ensure ordered however he does not like vanilla. Will change to chocolate 2. SIRS/Leukocytosis -Patient has had an increasing leukocytosis. He was started on Zosyn previously for what was believed to be a LLL pneumonia vs atelectasis. He has not had any fevers or cough. He has received a CT scan of the chest and abdomen. His procalcitonin was elevated initially and on repeat did not elevate or decrease from prior -Today leukocytosis appears to be trending down. Possibly secondary to his ischemic limb which has now been amputated. However can also not completely rule out a nosocomial pneumonia given his long hospitalization -Currently day 3 of Zosyn. Vancomycin was added yesterday however the patient was MRSA negative. This will be discontinued. Will trend WBC. If it continues to trend down then will discontinue antibiotics -Infectious disease has been consulted. Assistance and recommendations are appreciated 3. Acute Kidney Injury -Patient has had a worsening DEVAN. His granddaughter has stated that he has a history of chronic kidney disease and that he follows with Nephrology outpatient. On review of the patients medical record it was documented that he has CKD although his Cr and GFR have always been within normal range. He does fo llow with nephrology outpatient for lower extremity swelling -His Cr has increased over the past two days. FeNa suggest pre-renal. The patient does appear hypovolemic as well. He has been receiving IV fluids. His Cr has been stable today at 1.81. Will continue to trend and see if it continues to improve. -Will avoid nephrotoxic agents 4. Anemia 2/2 GI bleed -Patient has developed anemia previously. He had been on Eliquis which has been on hold. Will need to resume given his Atrial fibrillation. He has received an upper and lower endoscopy. Report has been reviewed and recommendations from GI are appreciated -Will continue Metamucil, Miralax BID -Patient was recommended to start Pepcid. This is currently held due to his DEVAN. Once his DEVAN resolves will start Pepcid 5. Rectal Ulcer -Rectal ulcer noted on colonoscopy. Patient has been started on Hydrocortisone supp. 25 mg 1 per rectum once a day for 2 weeks. 6. COPD with chronic hypoxic respiratory failure on 2L NC -Patient has COPD. Unclear when his last PFTs were completed therefore unable to know his GOLD stage. He is apparently on 2L NC chronically. During his hospitalization the patient is on room air with O2 saturations of 92-95%. The patient requests his oxygen. Additionally the patients granddaughter has stated that she wishes him to be on oxygen. It was explained that he does not need oxygen as he is doing well on room air. However the patient states he becomes anxious. -Will continue on 2L NC for comfort. Have recommended that patient follow-up with PCP for O2 titration and PFTs after discharge -COPD is currently stable. Will continue home medications 7. Chronic Steroid Use -Patient has been taking 7.5mg of prednisone chronically for years. The patients granddaughter had stated that he takes this for pain. She states that he has no history of inflammatory diseases that would require prednisone. She denied him having any history of PMR. -Patient has not been taking prednisone while inpatient. He does not appear adrenally suppressed as he has not been hypotensive, he is euglycemic and not hyponatremic. Random cortisol was elevated. -Have resumed patients prednisone. Recommendations to taper off. If he is using prednisone for pain we could try increasing tramadol and titrating down on prednisone. 8. Chronic Atrial Fibrillation -Continue Amiodarone -Continue Diltiazem -Patient has been rate controlled. Will resume Eliquis dose today at 2.5 mg BID. Reduced dose due to age > 80 and weight <60kg. Serum Cr currently > 1.5 9.Protein Calorie Malnutrition -Patient has poor oral intake. Will start ensure. He does have gastroparesis which causes him some nausea. Will try smaller meals throughout the day. 10. Debility -Patient is fairly weak at baseline. He will need rehab. PT/OT ordered -Will try and have patient sit up in bed at least. Have encouraged incentive spirometry 11. Lewy Body Dementia -Patient has history of Lewy Body dementia with intermittent episodes of hallucinations and confusion. No reported episodes during this hospitalization. Patients granddaughter has stated that he gets severe reactions to antiemetics and has stated that they should be avoided. 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 -Will avoid antiemetics. Will continue paxil. -Will restart ropinirole 12. DVT prophylaxis -Mechanical. Eliquis to restart today VS, I&O, 24H, Fishbone Vital Signs/I&O Vital Signs Date Time Temp Pulse Resp B/P (MAP) Pulse Ox O2 Delivery O2 Flow Rate FiO2 06/10/20 11:10 18 06/10/20 09:40 0.0 06/10/20 09:28 92 126/80 06/10/20 06:00 97.1 94 Room Air I&O- Last 24 Hours up to 6 AM 06/10/20 06:00 Intake Total 3850 ml Output Total 539 ml Balance 3311 ml Laboratory Data 24H LABS Laboratory Tests 2 06/10/20 05:27: Nucleated Red Blood Cells % (auto) 0.0, Anion Gap 11, Glomerular Filtration Rate 37.4, Calcium Level 7.6L, Total Bilirubin 0.5, Direct Bilirubin 0.3H, Aspartate Amino Transf (AST/SGOT) 12, Alanine Aminotransferase (ALT/SGPT) 9L, Alkaline Phosphatase 138H, Total Protein 4.7L, Albumin 1.6L, Albumin/Globulin Ratio 0.5 CBC/BMP Laboratory Tests 06/10/20 05:27 Microbiology Microbiology 06/07/20 Urine Culture - Final, Complete Staphylococcus Epidermidis 06/07/20 Blood Culture - Preliminary, Resulted No Growth after 72 hours. All specime... 06/07/20 Blood Culture - Preliminary, Resulted No Growth after 72 hours. All specime... 06/07/20 Stool Occult Blood (PEG) - Final, Complete GME ATTESTATION GME ATTESTATION My faculty preceptor for this patient encounter was physically present during the encounter and was fully available. All aspects of the patient interview, examination, medical decision making process, and medical care plan development were reviewed and approved by the faculty preceptor. The faculty preceptor is aware and concurs with the plan as stated in the body of this note and will attest to such by his/her cosignature. ATTENDING NOTE I, Ciaran More, have independently examined this patient and performed my own physical exam, as well as reviewed the documentation and edited where necessary. I have discussed in detail with the resident / student the findings and plan of treatment as documented by the resident / student and edited their note. I agree with their findings and treatment plan and have edited their documentation. I will continue to follow the patient during this hospital stay. VAN PIERSON DO Jun 10, 2020 13:14 CIARAN MORE MD Jun 10, 2020 14:22
[2020-06-10 13:15] VITALS: BP 127/71
[2020-06-10] MEDS: APIXABAN 2.5 MG TAB (ELIQUIS) PO SCH ×4 (13:20→23:50)
[2020-06-10] MEDS ORDERED: VANCOMYCIN HCL 1,000 MG, VIAL MATE ADAPTER 1 EACH in NS 250 ML IV SCH (14:00)
[2020-06-10] MEDS: predniSONE 2.5 MG TAB PO SCH (18:17)
[2020-06-10 20:00] VITALS: BP 125/72
[2020-06-10] MEDS: SYMBICORT 160/4.5MCG INHALER 6GM INH SCH (20:00)
[2020-06-10 22:00] VITALS: BP 120/71
[2020-06-10] MEDS: TAMSULOSIN 0.4 MG CAP PO SCH ×3 (22:23→23:50)
[2020-06-10] MEDS: rOPINIRole 0.25 MG TAB(REQUIP) PO SCH ×3 (22:24→23:51)
[2020-06-10] MEDS: ANUSOL HC 25MG SUPP PR SCH (22:24)
[2020-06-10] MEDS: PANTOPRAZOLE 40MG TAB (PROTONIX) PO SCH ×3 (22:24→23:51)
[2020-06-11 02:00] VITALS: BP 121/74
[2020-06-11] MEDS: PIPERACILLIN/TAZOBACTAM SOD 3.375 GM in D5W MINI-BAG PLUS 50 ML IV SCH ×4 (05:16→22:59)
[2020-06-11] MEDS: NS 1,000 ML IV SCH (05:16)
[2020-06-11 06:00] VITALS: BP 128/70
[2020-06-11 06:41] LABS: HEMATOCRIT 26.1 % (42.0-52.0); HEMOGLOBIN 8.1 g/dl (13.5-17.5); MEAN CORPUSCULAR HEMOGLOBIN 29.1 pg (27.0-33.0); MEAN CORPUSCULAR VOLUME 93.9 fl (80.0-96.0); PLATELET COUNT, AUTOMATED 293 10^3/uL (150-450); RED BLOOD COUNT 2.78 10^6/uL (4.30-6.10); WHITE BLOOD COUNT 28.2 10^3/uL (4.0-10.0)
[2020-06-11 07:01] LABS: CALCIUM LEVEL 7.5 MG/DL (8.8-10.2); CREATININE FOR GFR 1.85 MG/DL (0.70-1.30); GLOMERULAR FILTRATION RATE 37.2 (>35); POTASSIUM SERUM 4.4 MEQ/L (3.5-5.1)
[2020-06-11] MEDS: SYMBICORT 160/4.5MCG INHALER 6GM INH SCH ×2 (07:52→20:08)
[2020-06-11] MEDS: FINASTERIDE 5 MG TAB PO SCH (09:28)
[2020-06-11] MEDS: PARoxetine 20MG TABLET PO SCH (09:28)
[2020-06-11] MEDS: SUCRALFATE 1 GM TAB PO SCH ×3 (09:29→16:47)
[2020-06-11] MEDS: ASPIRIN 81MG ENTERIC TABLET PO SCH (09:29)
[2020-06-11] MEDS: PANTOPRAZOLE 40MG TAB (PROTONIX) PO SCH ×2 (09:29→22:58)
[2020-06-11] MEDS: GABAPENTIN 100 MG CAP PO SCH ×3 (09:29→22:58)
[2020-06-11] MEDS: APIXABAN 2.5 MG TAB (ELIQUIS) PO SCH ×2 (09:29→22:58)
[2020-06-11] MEDS: ATORVASTATIN 20 MG TAB PO SCH (09:29)
[2020-06-11] MEDS: predniSONE 5 MG TAB PO SCH (09:29)
[2020-06-11] MEDS: atenoloL 25 MG TAB PO SCH ×2 (09:30→23:02)
[2020-06-11] MEDS: AMIODARONE 200 MG TAB (PACERONE) PO SCH (09:31)
--- NOTE | 2020-06-11 09:41 | REP ---
INDICATION: shortness of breath COMPARISON: 06/07/2020 TECHNIQUE: Portable AP view of the chest FINDINGS: Lung celis demonstrate chronic interstitial changes with increased mid to lower lobe airspace disease including linear platelike atelectasis in the right midlung zone and increased left lower lobe/retrocardiac consolidation with air bronchograms. Small pleural effusions cannot be excluded. No pneumothorax. Mediastinum and cardiac silhouette stable. IMPRESSION: Bilateral airspace disease and left lower lobe consolidation increased from prior examination. <Electronically signed by Abhilash Nieves > 06/11/20 0937
--- NOTE | 2020-06-11 10:46 | IPNPDOC ---
Date Seen The patient was seen on 06/11/20. Progress Note Patient seen and examined postop day 2 status post left above-knee amputation. He says his pain is better today. He still has no appetite and does not want to eat. He has had a little bit of nausea pretty continuously postop, but says it's a little better now. He says it waxes and wanes. Overall, he just doesn't feel like eating. I think some of this is depression, as he is still struggling with the loss of his leg. This is perfectly understandable. We will continue to encourage him, but he is at risk for failure to thrive. On exam, the left AKA stump is clean dry and intact. Very minimal sanguinous drainage on the dressing. No active bleeding noted. No bruising erythema or induration on the stump. The incision was thoroughly cleaned and dried. Xeroform, sloughs, kerlix, Ok wrap are used as a final dressing. The patient tolerated this well and was able to elevate the stump for me during the dressing change. So far, everything looks good. With regard to the right foot, I am concerned that he will progress to the same level as the left. He has a more superficial pressure ulcer on the right heel, despite great attention by the nurses to try to prevent this with heel lift boots and offloading. I think he is somewhat predisposed to this due to poor nutrition and chronic protein malnutrition, neuropathy, severe chronic PVD. We will watch this closely. We have revascularized the right lower extremity about as much as is safely possible. We've improved the inflow with iliac sten ts, and we gently angioplasty the heavily calcified distal system as well. Unfortunately, this is end-stage vascular disease and he does not have a great option to improve flow from the ankle to the toes due to chronic microvascular disease with calcified occlusions in the tibial and pedal outflow. Nutrition will be imperative, and I spoke with him at length again about trying to drink the ensure whenever his nausea subsides, just to give him at least some nutrition. He says he will try. The patient still has leukocytosis, possibly multifactorial, but I was fairly certain preop that it was due to the ischemic changes on the left foot. However, if this was the case, we would expect the white blood cell count to be trending down. This is not what we are seeing. Based on his chest x-ray and CT of the chest, he has left lower lobe atelectasis that may have progressed to pneumonia, and this is being treated with Zosyn. All other workup is so far negative. We appreciate Dr. Hassan's recommendations. We appreciate the hospitalist's excellent care of this patient. VS, I&O, 24H, Fishbone Vital Signs/I&O Vital Signs Date Time Temp Pulse Resp B/P (MAP) Pulse Ox O2 Delivery O2 Flow Rate FiO2 06/11/20 09:30 101 110/65 06/11/20 06:00 98.2 18 98 Nasal Cannula 2.0 I&O- Last 24 Hours up to 6 AM 06/11/20 06:00 Intake Total 2755 ml Output Total 350 ml Balance 2405 ml Laboratory Data 24H LABS Laboratory Tests 2 06/10/20 12:55: Vancomycin Level Trough 20.6H 06/11/20 05:27: Nucleated Red Blood Cells % (auto) 0.0, Anion Gap 9, Glomerular Filtration Rate 37.2, Calcium Level 7.5L CBC/BMP Laboratory Tests 06/11/20 05:27 Microbiology Microbiology 06/07/20 Urine Culture - Final, Complete Staphylococcus Epidermidis 06/07/20 Blood Culture - Preliminary, Resulted No Growth after 72 hours. All specime... 06/07/20 Blood Culture - Preliminary, Resulted No Growth after 72 hours. All specime... 06/07/20 Stool Occult Blood (PEG) - Final, Complete ELOINA MIJARES MD Jun 11, 2020 10:46
--- NOTE | 2020-06-11 10:54 | IPNPDOC ---
Text Note Date of Service The patient was seen on 06/11/20. NOTE Subjective: Patient is a 84-year-old male with a PMHx of COPD, PVD, CKD, Peripheral neuropathy, Chronic pain, Gastroparesis, BPH, GERD, who is transferre d from [place] for left lower limb ischemia. Patient was evaluated by vascular surgery who had recommended [id number] amputation. However, given his anemia. Patient had an EGD and colonoscopy performed (06/07) before he underwent left [id number] of dictation on 06/09. Patient has been admitted to the hospital service for continued evaluation and management. Patient was seen and examined at the bedside. Currently patient reports that his pain is doing a lot better. Reports that he has been coughing a lot, however, it has been nonproductive. Denies any chest pain or palpitations. Denies any further nausea or vomiting. Denies any abdominal pain. Denies any diarrhea overnight patient had some difficulty with urination and required straight catheterization. Objective: Vitals (See below) General: Lying in bed, appears comfortable, awake / alert HEENT: NC, AT CVS: +S1S2 Lungs: Fair air entry b/l, decreased lung sounds at bases / faint crackles Abdomen: Soft, nondistended and nontender Extremities: L AKA, Trace to 1+ RLE edema, - Calf tenderness Assessment and plan: Left Limb Ischemia 2/2 Peripheral Vascular Disease - s/p L AKA (06/09/2020) - c/w Pain control - c/w PT and OT - Will likely require rehabilitation Leukocytosis - Increasing; however had been started on prednisone yesterday - Hemodynamically stable and afebrile - Will trend CRP - PCT remains the same; will repeat today - MRSA negative - Blood cultures 06/07: Negative at 72 hours - c/w Zosyn (Day #4); s/p Vancomycin - ID on consultation; appreciate their input PVD s/p Bilateral common iliac artery stent (05/24/2020) - c/w ASA 81 and Eliquis - Vascular surgery on consultation; appreciate their input Acute Kidney Injury - Kidney function appears to have declined after bowel prep on 3/9 PM to 3/10 AM; but remains stable for the last 3 days - Clinically patient is exhibiting signs of volume overload - Will discontinue IV fluids - Will consider diuretics - Will discuss with Nephrology; if renal function deteriorates will consult Anemia 2/2 GI bleed - Hg remains stable - s/p EGD (found gastritis) and Colonoscopy (found polyps, diverticulosis, ulcer in rectum, internal/external hemorrhoids) with Dr. Obrien on 06/07 - c/w Carafate and Protonix Chronic Atrial Fibrillation - c/w Amiodarone / Diltiazem / Atenolol - s/p Watchman procedure; still on an anticoagulant due to his PAD and recent stents Urinary retention with BPH - Patient required straight cath yesterday - c/w Tamsulosin and Finasteride Rectal Ulcer - c/w Hydrocortisone topical x 2 weeks COPD with chronic hypoxic respiratory failure on 2L NC - Patient has been on 2 L nasal cannula as an outpatient. However, not appear to require any while inpatient - Family and patient continued to request oxygen in place - advised of risks - Will need outpatient follow up with Pulmonology for PFTs Chronic Steroid Use - As per granddaughter, patient takes this for pain control - Has been resumed (06/10) - c/w Prednisone DLP - c/w Atorvastatin Chronic pain - c/w Gabapentin / Prednisone - c/w Tramadol - Will DC Morphine Protein Calorie Malnutrition - Poor oral intake with history of gastroparesis - Continue with encouragement and Ensure supplementation - c/w Pepto-Bismol alone for nausea Debility - c/w PT and OT Lewy Body Dementia - Has had intermittent hallucinations - Will avoid anti-emetics - c/w Ropinirole and Paroxetine DVT prophylaxis - c/w full anticoagulation with Eliquis Disposition: - Awaiting clinical improvement Dayiln MARIN I+O VSDaylin I+O Laboratory Tests 06/11/20 05:27 Vital Signs Date Time Temp Pulse Resp B/P (MAP) Pulse Ox O2 Delivery O2 Flow Rate FiO2 06/11/20 09:30 101 110/65 06/11/20 06:00 98.2 18 98 Nasal Cannula 2.0 l I&O- Last 24 Hours up to 6 AM 06/11/20 05:59 Intake Total 3080 ml Output Total 350 ml Balance 2730 ml KRISHAN MORE MD Jun 11, 2020 10:54
[2020-06-11 11:06] LABS: C REACTIVE PROTEIN QUANTITATIV 11.2 MG/DL (0.00-0.30)
[2020-06-11 11:09] LABS: C REACTIVE PROTEIN QUANTITATIV 16.2 MG/DL (0.00-0.30)
[2020-06-11 11:21] LABS: C REACTIVE PROTEIN QUANTITATIV 18.5 MG/DL (0.00-0.30)
[2020-06-11] MEDS ORDERED: FUROSEMIDE 20MG/2ML VIAL (J1940) IV ONE (11:50)
[2020-06-11 13:39] VITALS: BP 110/64
[2020-06-11 17:49] LABS: CALCIUM LEVEL 7.7 MG/DL (8.8-10.2); CREATININE FOR GFR 2.09 MG/DL (0.70-1.30); GLOMERULAR FILTRATION RATE 32.3 (>35); POTASSIUM SERUM 4.5 MEQ/L (3.5-5.1)
[2020-06-11] MEDS: predniSONE 2.5 MG TAB PO SCH (18:18)
[2020-06-11 22:00] VITALS: BP 121/69
[2020-06-11] MEDS: rOPINIRole 0.25 MG TAB(REQUIP) PO SCH (22:58)
[2020-06-11] MEDS: TAMSULOSIN 0.4 MG CAP PO SCH (22:58)
[2020-06-11] MEDS: ANUSOL HC 25MG SUPP PR SCH (22:59)
[2020-06-12] MEDS: PIPERACILLIN/TAZOBACTAM SOD 3.375 GM in D5W MINI-BAG PLUS 50 ML IV SCH ×4 (03:59→21:48)
[2020-06-12] MEDS: traMADol 50 MG TAB PO PRN (04:49)
[2020-06-12 06:00] VITALS: BP 139/76
[2020-06-12 06:28] LABS: HEMATOCRIT 25.7 % (42.0-52.0); HEMOGLOBIN 7.9 g/dl (13.5-17.5); MEAN CORPUSCULAR HEMOGLOBIN 28.8 pg (27.0-33.0); MEAN CORPUSCULAR HGB CONC 30.7 g/dl (32.0-36.5); MEAN CORPUSCULAR VOLUME 93.8 fl (80.0-96.0); PLATELET COUNT, AUTOMATED 267 10^3/uL (150-450); RED BLOOD COUNT 2.74 10^6/uL (4.30-6.10)
[2020-06-12 06:30] LABS: WHITE BLOOD COUNT 24.8 10^3/uL (4.0-10.0)
[2020-06-12 06:44] LABS: ANISOCYTOSIS 1+; LYMPHOCYTES 2 % (16-44); MONOCYTES 13 % (0-5); NEUTROPHILS 85 % (28-66); PLATELET ESTIMATE NORMAL (NORMAL)
[2020-06-12 06:57] LABS: ALBUMIN 1.6 GM/DL (3.2-5.2); BILIRUBIN,TOTAL 0.4 MG/DL (0.2-1.0); C REACTIVE PROTEIN QUANTITATIV 8.57 MG/DL (0.00-0.30); CALCIUM LEVEL 7.4 MG/DL (8.8-10.2); CREATININE FOR GFR 2.12 MG/DL (0.70-1.30); GLOMERULAR FILTRATION RATE 31.8 (>35); MAGNESIUM LEVEL 1.7 MG/DL (1.8-2.4); POTASSIUM SERUM 4.1 MEQ/L (3.5-5.1); TOTAL PROTEIN 4.5 GM/DL (6.4-8.2)
[2020-06-12] MEDS ORDERED: MAG SULF 1GM/100ML (MAG RUN) 1 GM in IV 1 EA IV ONE (07:05)
[2020-06-12] MEDS: SYMBICORT 160/4.5MCG INHALER 6GM INH SCH ×2 (07:12→21:06)
--- NOTE | 2020-06-12 08:49 | IPNPDOC ---
Text Note Date of Service The patient was seen on 06/12/20. NOTE Subjective: Patient is a 84-year-old male with a PMHx of COPD, PVD, CKD, Peripheral neuropathy, Chronic pain, Gastroparesis, BPH, GERD, who is transferre d from [place] for left lower limb ischemia. Patient was evaluated by vascular surgery who had recommended [id number] amputation. However, given his anemia. Patient had an EGD and colonoscopy performed (06/07) before he underwent left excxi-[id number] of dictation on 06/09. Patient has been admitted to the hospital service for continued evaluation and management. Patient was seen and examined at the bedside. Patient appears to be pleasant. Denies any significant leg pain. Reports some aching of his foot. Has not experience any nausea, vomiting is seen eating his breakfast. Denies any chest p ain or palpitations. Ports a mild cough. Denies any abdominal pain or diarrhea. Patient has had no difficulty with urination yesterday. Objective: Vitals (See below) General: Sitting up in bed eating breakfast appears to be comfortable, is awake, alert and oriented 3 HEENT: NC, AT CVS: +S1S2 Lungs: There appears to be fair air entry bilaterally, diminished lung sounds at bases Abdomen: Soft, nondistended and nontender; pitting edema noted around sacrum Extremities: L AKA, right lower extremity with 1+ pitting edema, - Calf tenderness Assessment and plan: Left Limb Ischemia 2/2 Peripheral Vascular Disease - s/p L AKA (06/09/2020) - c/w Pain control - c/w PT and OT - Will likely require rehabilitation Leukocytosis - possibly 2/2 PNA - Patient had reported a more productive cough over the weekend - WBC count slightly improved - Remains hemodynamically stable and afebrile - CRP improving - PCT improving - MRSA negative - Blood cultures 06/07: Negative at 5 days - c/w Zosyn (Day #5); s/p Vancomycin - ID on consultation; appreciate their input PVD s/p Bilateral common iliac artery stent (05/24/2020) - c/w ASA 81 and Eliquis - Vascular surgery on consultation; appreciate their input Acute Kidney Injury - Review of medical record; Cr ranges from 1-1.5 - Physical still reveals signs of volume overload - BNP elevated - Will check ECHO; cardiorenal? - s/p IV fluids - s/p Furosemide 20 IV yesterday - Nephrology on consult; appreciate their input Anemia 2/2 GI bleed - Hg remains stable - s/p EGD (found gastritis) and Colonoscopy (found polyps, diverticulosis, ulcer in rectum, internal/external hemorrhoids) with Dr. Obrien on 06/07 - c/w Carafate and Protonix Chronic Atrial Fibrillation - c/w Amiodarone / Diltiazem / Atenolol - s/p Watchman procedure; still on an anticoagulant due to his PAD and recent s tents Urinary retention with BPH - Patient required straight cath yesterday - c/w Tamsulosin and Finasteride Rectal Ulcer - c/w Hydrocortisone topical x 2 weeks COPD with chronic hypoxic respiratory failure on 2L NC - Patient has been on 2 L nasal cannula as an outpatient. However, not appear to require any while inpatient - Family and patient continued to request oxygen in place - advised of risks - Will need outpatient follow up with Pulmonology for PFTs Chronic Steroid Use - As per granddaughter, patient takes this for pain control - Has been resumed (06/10) - c/w Prednisone DLP - c/w Atorvastatin Chronic pain - c/w Gabapentin / Prednisone - c/w Tramadol - s/p Morphine Protein Calorie Malnutrition - Poor oral intake with history of gastroparesis - Continue with encouragement and Ensure supplementation - c/w Pepto-Bismol alone for nausea Debility - c/w PT and OT Lewy Body Dementia - Has had intermittent hallucinations - Will avoid anti-emetics - c/w Ropinirole and Paroxetine DVT prophylaxis - c/w full anticoagulation with Eliquis Disposition: - Awaiting clinical improvement Daylin MARIN, I+O VSDaylin I+O Laboratory Tests 06/11/20 17:16 06/12/20 05:54 Vital Signs Date Time Temp Pulse Resp B/P (MAP) Pulse Ox O2 Delivery O2 Flow Rate FiO2 06/12/20 06:00 98.3 116 20 139/76 (97) 97 Room Air 06/12/20 05:19 2.0 I&O- Last 24 Hours up to 6 AM 06/12/20 06:00 Intake Total 920 ml Output Total 925 ml Balance -5 ml KRISHAN MORE MD Jun 12, 2020 08:49
[2020-06-12] MEDS: GABAPENTIN 100 MG CAP PO SCH ×3 (09:07→20:14)
[2020-06-12] MEDS: SUCRALFATE 1 GM TAB PO SCH ×3 (09:08→16:57)
[2020-06-12] MEDS: APIXABAN 2.5 MG TAB (ELIQUIS) PO SCH ×2 (09:08→20:15)
[2020-06-12] MEDS: AMIODARONE 200 MG TAB (PACERONE) PO SCH (09:08)
[2020-06-12] MEDS: ATORVASTATIN 20 MG TAB PO SCH (09:08)
[2020-06-12] MEDS: ASPIRIN 81MG ENTERIC TABLET PO SCH (09:08)
[2020-06-12] MEDS: predniSONE 5 MG TAB PO SCH (09:08)
[2020-06-12] MEDS: atenoloL 25 MG TAB PO SCH ×2 (09:08→20:18)
[2020-06-12] MEDS: PANTOPRAZOLE 40MG TAB (PROTONIX) PO SCH ×2 (09:09→20:15)
[2020-06-12] MEDS: FINASTERIDE 5 MG TAB PO SCH (09:09)
[2020-06-12] MEDS: PARoxetine 20MG TABLET PO SCH (09:09)
--- NOTE | 2020-06-12 09:58 | IPNPDOC ---
Date Seen The patient was seen on 06/12/20. Progress Note Patient seen and examined postop day 3 status post left above-knee amputation. He says his pain is minimal in the system today. His appetite seems a little better today. He ate a few bites of eggs for me, and drank half of his ensure. He then ate a bit more for the nurses well. On exam, the left AKA stump is clean dry and intact. Minimal serosanguineous drainage on the dressing. No active blee ding noted. No bruising erythema or induration on the stump. The incision was thoroughly cleaned and dried. Xeroform, fluffs, kerlix, Ok wrap are used as a final dressing. The patient tolerated this well and was able to elevate his stump for me during the dressing change. So far, everything looks good. With regard to the right foot, I am concerned that he will progress to the same level of tissue loss as the left. He has a more superficial pressure ulcer on the right heel, despite great attention by the nurses to try to prevent this with heel lift boots and offloading. I think he is somewhat predisposed to this due to poor nutrition and chronic protein malnutrition, neuropathy, severe chronic PVD. We will watch this closely. We have revascularized the right lower extremity about as much as is safely possible. We've improved the inflow with iliac stents, and we gently angioplasty the heavily calcified distal system as well. Unfortunately, this is end-stage vascular disease and he does not have a great option to improve flow from the ankle to the toes due to chronic microvascular disease with calcified occlusions in the tibial and pedal outflow. Nutrition will be imperative, and I spoke with him at length again about trying to drink the ensure and eat as much protein as he can. He says he will try. The patient still has significant leukocytosis, possibly multifactorial, but I was fairly certain preop that it was due to the ischemic changes on the left foot. However, if this was the case, we would expect the white blood cell count to be trending down were rapidly, although it is down today. Based on his chest x-ray and CT of the chest, he has left lower lobe atelectasis that may have progressed to pneumonia, and this is being treated with Zosyn. All other workup is so far negative. We appreciate Dr. Hassan's recommendations. Regarding the patient's anemia, and appears to be stable, even though we've restarted the eliquis. However, it is slowly drifting down a little each day. The amount is minimal, and the etiology may be multifactorial, due to to daily blood draws, possible minimal ongoing GI bleed, and chronic renal insufficiency, but we will watch this closely. We are hopeful we can continue the aspirin and eliquis for severe peripheral vascular disease. We appreciate the hospitalist's excellent care of this patient. VS, I&O, 24H, Fishbone Vital Signs/I&O Vital Signs Date Time Temp Pulse Resp B/P (MAP) Pulse Ox O2 Delivery O2 Flow Rate FiO2 06/12/20 09:08 97 135/70 06/12/20 06:00 98.3 20 97 Room Air 06/12/20 05:19 2.0 I&O- Last 24 Hours up to 6 AM 06/12/20 06:00 Intake Total 920 ml Output Total 925 ml Balance -5 ml Laboratory Data 24H LABS Laboratory Tests 2 06/11/20 17:16: Anion Gap 6L, Glomerular Filtration Rate 32.3L, Calcium Level 7.7L 06/12/20 05:54: Anion Gap 8, Glomerular Filtration Rate 31.8L, Calcium Level 7.4L, Immature Granulocyte % (Auto) , Neutrophils (%) (Auto) , Nucleated Red Blood Cells % (auto) 0.0, Neutrophils 85H, Lymphocytes (Manual) 2L, Monocytes (Manual) 13H, Anisocytosis 1+, Platelet Estimate NORMAL, Magnesium Level 1.7L, Total Bilirubin 0.4, Aspartate Amino Transf (AST/SGOT) 33, Alanine Aminotransferase (ALT/SGPT) 16, Alkaline Phosphatase 203H, C-Reactive Protein, Quantitative 8.57H, Total Protein 4.5L, Albumin 1.6L, Albumin/Globulin Ratio 0.6 CBC/BMP Laboratory Tests 06/11/20 17:16 06/12/20 05:54 Microbiology Microbiology 06/07/20 Urine Culture - Final, Complete Staphylococcus Epidermidis 06/07/20 Blood Culture - Final, Complete NO GROWTH AFTER 5 DAYS 06/07/20 Blood Culture - Final, Complete NO GROWTH AFTER 5 DAYS 06/07/20 Stool Occult Blood (PEG) - Final, Complete ELOINA MIJARES MD Jun 12, 2020 09:58
[2020-06-12 13:26] LABS: CK-MB VALUE MASS 1.2 NG/ML (<3.6); MB/CK RELATIVE INDEX 3.33 (< OR =4); TROPONIN I 0.04 NG/ML (< 0.10)
[2020-06-12] MEDS: FUROSEMIDE 100MG/10ML VIAL (J1940) IV ONE ×2 (13:31→16:55)
[2020-06-12] MEDS ORDERED: VANCOMYCIN HCL 1,000 MG, VIAL MATE ADAPTER 1 EACH in NS 250 ML IV SCH (14:00)
[2020-06-12 14:36] LABS: HEMATOCRIT 27.5 % (42.0-52.0); HEMOGLOBIN 8.6 g/dl (13.5-17.5); MEAN CORPUSCULAR HEMOGLOBIN 29.2 pg (27.0-33.0); MEAN CORPUSCULAR HGB CONC 31.3 g/dl (32.0-36.5); MEAN CORPUSCULAR VOLUME 93.2 fl (80.0-96.0); PLATELET COUNT, AUTOMATED 266 10^3/uL (150-450); RED BLOOD COUNT 2.95 10^6/uL (4.30-6.10)
[2020-06-12 14:38] LABS: WHITE BLOOD COUNT 30.8 10^3/uL (4.0-10.0)
[2020-06-12 14:48] LABS: LYMPHOCYTES 9 % (16-44); METAMYELOCYTES 3 % (0-0); MONOCYTES 1 % (0-5); MYELOCYTES 2 % (0-0); NEUTROPHILS 84 % (28-66)
[2020-06-12 14:50] LABS: ANISOCYTOSIS 1+; OVALOCYTES 1+; PLATELET ESTIMATE NORMAL (NORMAL)
[2020-06-12] MEDS ORDERED: LIDOCAINE 1% MDV 20ML VIAL As Ordered ONE (15:04)
[2020-06-12] MEDS: VANCOMYCIN HCL 1,000 MG, VIAL MATE ADAPTER 1 EACH in NS 250 ML IV SCH (16:58)
[2020-06-12] MEDS: predniSONE 2.5 MG TAB PO SCH (17:04)
--- NOTE | 2020-06-12 17:31 | REP ---
PROCEDURE NAME: PICC LINE INSERTION W/SITERITE CLINICAL INFORMATION: Antibiotics / Difficult access. COMPARISON: None. PROCEDURE DESCRIPTION: The procedure was performed by ZEYAD Soria, under the direct supervision of Dr. El. The risks and benefits of the procedure were explained to the patient and an informed consent was obtained both verbally and written. Directly prior to the start of the procedure a formal time-out was completed in the procedure room. The right basilic vein was localized using ultrasound guidance. The skin was prepped and draped in sterile fashion. One mL of 1% lidocaine 10 mg/mL was used as a local anesthetic. Using ultrasound guidance the right basilic vein was cannulated, and a 0.018 guidewire was inserted and advanced to the level of SVC using fluoroscopic guidance. The needle was removed and a 5.5 Welsh dilator and peel-away sheath was inserted over the guidewire. A 5.5 Welsh dual lumen catheter was cut to a length of 40 cm. The dilator was removed and the catheter was inserted over the guidewire with the tip ending at the level of the SVC. The peel-away sheath was removed and the catheter was flushed with heparinized saline as per hospital protocol. The catheter was affixed to the skin and a sterile dressing was applied. The patient tolerated the procedure well and there were no immediate complications. CONCLUSION: PICC line insertion into the right basilic vein. 0.4 minutes of fluoroscopy time was utilized for this procedure. Some fluoroscopic images are performed with last image hold technology. These images require no additional radiation. <Electronically signed by Alexandra Méndez > 06/12/20 1617 <Electronically signed by Mike El > 06/12/20 1672
[2020-06-12] MEDS: SODIUM CHLORIDE 0.9% INJ 10 ML SYR IV SCH (18:25)
[2020-06-12] MEDS: rOPINIRole 0.25 MG TAB(REQUIP) PO SCH (20:14)
[2020-06-12] MEDS: TAMSULOSIN 0.4 MG CAP PO SCH (20:15)
[2020-06-12] MEDS: ANUSOL HC 25MG SUPP PR SCH (20:18)
[2020-06-12] MEDS ORDERED: NITROFURANTOIN (MACROBID) 100 MG CAP PO SCH (21:00)
--- NOTE | 2020-06-12 21:33 | CR ---
CONSULTATION DATE: 06/12/2020 REQUESTING PHYSICIAN: Dr. Ciaran oRca MD REASON FOR CONSULTATION: Management of acute renal failure. CHIEF COMPLAINT: Patient was admitted on June 05 because of ischemia of the left lower extremity. HISTORY OF PRESENT ILLNESS: Note; history was obtained from patient's chart and from previous hospitalizations. Patient is unable to provide any reliable history at this time. Pete Javed is an 84-year-old male with past medical history of chronic kidney disease stage 2; baseline creatinine of 0.7 as of May of 2020. He presented on June 05, 2020 with progressive ischemia of the left lower extremity. He was seen by vascular surgery. He underwent a salvage procedure of the left leg, but he had multiple complications. He underwent left above knee amputation later on. His renal function continues to get worse. His creatinine worsened from a creatinine of 0.9 on admission to creatinine of 2.1 today morning. Nephrology service was called for further help in the management of this patient. I saw and evaluated the patient today morning at the bedside. He was unable to provide me with any reliable history, but clinically patient looks significantly volume overloaded. PAST MEDICAL HISTORY: Peripheral vascular disease, hypertension, peripheral neuropathy, gastroesophageal reflux disease, depression, COPD, BPH, history of COVID-19 infection in the past, atrial fibrillation; anticoagulated with Eliquis. PAST SURGICAL HISTORY: History of pacemaker placement in the past, status post left above knee amputation, history of EGD in the past. ALLERGIES: He is allergic to Azithromycin, Fluconazole, Fluticasone, Metformin, Metoclopramide, Zofran, Procaine and Promethazine. FAMILY HISTORY: No significant family history of end-stage renal disease requiring hemodialysis. SOCIAL HISTORY: He is an ex-smoker. No history of alcohol abuse or illicit drug abuse. REVIEW OF SYSTEMS: Patient was unable to provide me with any reliable review of systems. She is drowsy and obtunded at this time. PHYSICAL EXAMINATION: GENERAL: Patient is lying in bed, drowsy and answers very few questions. VITAL SIGNS: Temperature 97.9 degrees Fahrenheit, blood pressure 135/70, pulse 107, respiratory rate 20, saturating 97% on room air. HEAD AND NECK: Pupils equally round and reactive to light. Mucous membranes are moist. Neck is supple. Significantly elevated JVD. CARDIOVASCULAR: S1, S2, regular rate. 2+ edema of the right lower extremity, 2+ edema of the bilateral upper extremities. RESPIRATORY: Decreased breath sounds at the bases. ABDOMEN: Soft, obese, positive abdominal wall edema was noted. GENITOURINARY: Bladder is not palpable. Bedside bladder scan was done, no significant urine was found on the bladder scan. MUSCULOSKELETAL: Patient has dressing on the left above knee amputation site stump. OIL EXPELLER: Patient is drowsy and obtunded. Follows few commands and answers few questions. LABORATORY REVIEW: CBC showed WBC 30.8, hemoglobin 8.6, platelets 266,000. Urinalysis done on June 09 showed 1+ protein, 2+ blood, 9 wbc's. BMP showed sodium 143, potassium 4.1, chloride 111, bicarb 24, BUN 36, creatinine 2.1. Calcium 7.4. Magnesium 1.7. MICROBIOLOGY: Urine culture is growing Staph epi. IMAGING: A chest x-ray was done yesterday, which showed bilateral airspace disease and left lower lobe consolidation; increased form prior exam. A renal ultrasound done on June 09 showed chronic medical renal disease. No hydronephrosis. CURRENT INPATIENT MEDICATIONS: Patient's medications include: 1. Mag Sulfate 1 gram I.V. today. 2. Zosyn 3.375 grams I.V. every 6 hours. 3. I have started the patient on I.V. Vancomycin because of UTI. 4. Amiodarone 200 mg p.o. daily. 5. Eliquis 2.5 mg p.o. twice a day. 6. Aspirin 81 mg p.o. daily. 7. Atenolol 25 mg p.o. twice a day. 8. Atorvastatin 40 mg p.o. daily. 9. Symbicort two puffs twice a day. 10.Diltiazem 120 mg daily. 11.Proscar 5 mg p.o. daily. 12.Lasix 60 mg I.V. times one dose was given by myself. 13.Gabapentin 200 mg p.o. three times a day. 14.Protonix 40 mg p.o. twice a day. 15.Paxil 20 mg p.o. daily. 16.MiraLax p.r.n. 17.Prednisone 5 mg in the morning and 2.5 mg in the evening. 18.Requip 0.25 mg p.o. q.h.s. 19.Carafate 1 gram p.o. with meals. 20.Flomax 0.4 mg q.h.s. 21.Tramadol p.r.n. ASSESSMENT AND PLAN: 1. Acute nonoliguric renal failure: Unknown etiology at this time. Patient's creatinine suddenly bumped up from June 06 to June 07,, however, patient underwent major surgery recently and clinically he looks volume overloaded. I am going to start the patient on diuretics at this time. Electrolytes are within the acceptable range. No urgent need of dialysis. 2. Decompensated congestive heart failure: Patient does not have any echo available in the system, and echocardiogram has been ordered. One dose of Lasix was ordered. Morris catheter is being placed. Further diuretic adjustment will be done after patient responds to the diuretics. 3. Staph epi urinary tract infection: Patient has been started on I.V. Vancomycin for a total of five days. 4. Hypomagnesemia: Patient was already given I.V. magnesium . 5. Left above knee amputation and left lower lobe infiltrate: Patient has worsening leukocytosis. He is already on I.V. Zosyn. Vancomycin is being started for coverage for pneumonia and Staph epi UTI. 6. Atrial fibrillation: Heart rate is controlled with Amiodarone, Atenolol and Cardizem. He is anticoagulated with Eliquis. Thank you for involving me in the care of this patient. I shall be happy to follow the patient along with you tomorrow morning.
[2020-06-12 22:00] VITALS: BP 108/71
[2020-06-13] VITALS (9 sets, daily range): BP systolic 110–128; BP diastolic 67–80
[2020-06-13] MEDS: PIPERACILLIN/TAZOBACTAM SOD 3.375 GM in D5W MINI-BAG PLUS 50 ML IV SCH ×4 (03:23→22:41)
[2020-06-13] MEDS: SODIUM CHLORIDE 0.9% INJ 10 ML SYR IV PRN (04:41)
[2020-06-13] MEDS: SODIUM CHLORIDE 0.9% INJ 10 ML SYR IV SCH ×2 (05:05→18:28)
[2020-06-13 06:04] LABS: HEMATOCRIT 25.2 % (42.0-52.0); HEMOGLOBIN 7.7 g/dl (13.5-17.5); MEAN CORPUSCULAR HEMOGLOBIN 28.8 pg (27.0-33.0); MEAN CORPUSCULAR HGB CONC 30.6 g/dl (32.0-36.5); MEAN CORPUSCULAR VOLUME 94.4 fl (80.0-96.0); PLATELET COUNT, AUTOMATED 216 10^3/uL (150-450); RED BLOOD COUNT 2.67 10^6/uL (4.30-6.10)
[2020-06-13 06:05] LABS: WHITE BLOOD COUNT 21.7 10^3/uL (4.0-10.0)
[2020-06-13 06:24] LABS: ALBUMIN 1.6 GM/DL (3.2-5.2); BILIRUBIN,TOTAL 0.3 MG/DL (0.2-1.0); C REACTIVE PROTEIN QUANTITATIV 15.6 MG/DL (0.00-0.30); CALCIUM LEVEL 7.8 MG/DL (8.8-10.2); CREATININE FOR GFR 1.94 MG/DL (0.70-1.30); GLOMERULAR FILTRATION RATE 35.2 (>35); MAGNESIUM LEVEL 1.8 MG/DL (1.8-2.4); POTASSIUM SERUM 3.7 MEQ/L (3.5-5.1); TOTAL PROTEIN 5.3 GM/DL (6.4-8.2)
[2020-06-13 06:38] LABS: ANISOCYTOSIS 2+; CRENATED RBC 1+; LYMPHOCYTES 1 % (16-44); MONOCYTES 8 % (0-5); MYELOCYTES 2 % (0-0); NEUTROPHILS 87 % (28-66); OVALOCYTES 1+
[2020-06-13 06:39] LABS: MICROCYTOSIS 1+
[2020-06-13 06:40] LABS: PLATELET ESTIMATE NORMAL (NORMAL)
[2020-06-13] MEDS: SYMBICORT 160/4.5MCG INHALER 6GM INH SCH ×2 (07:28→19:37)
[2020-06-13] MEDS: SUCRALFATE 1 GM TAB PO SCH ×3 (07:30→16:40)
[2020-06-13] MEDS ORDERED: FUROSEMIDE 40MG/4ML VIAL (J1940) IV ONE (08:00)
--- NOTE | 2020-06-13 08:48 | IPNPDOC ---
Date Seen The patient was seen on 06/13/20. Progress Note Patient seen and examined postoperative day 4 status post left above-knee amputation. He is very sleepy today, difficult to arouse, and slept through most of his dressing change. On exam, the left AKA stump is clean dry and intact. Minimal sanguinous and serous drainage on the dressing. Incision was thoroughly cleaned and redressed with Xeroform 4 x 4's Kerlix and Ok wrap. The patient tolerated this without pain. The right foot is stable at this point. We are still concerned about the pressure area on the right heel, as this could turn into the same situation we saw on the left foot. Unfortunately, even with improved revascularization proximally, the microvascular disease at the distal tibial some pedal arteries will make healing challenging. The patient is predisposed to this due to chronic protein malnutrition combined with acute protein malnutrition, peripheral vascular disease, neuropathy, and despite best efforts to offload the heel with a heel lift boot and floating poles, it is still going to be challenging. It seems like at this point the patient is starting to exhibit signs of failure to thrive. He is still having waxing and waning delirium, combined with post-amputation depression. Although he says he feels better without the left foot pain, he is still very sad about losing his leg. This is going to be a challenging case due to the patient's extensive medical comorbidities as well with cardiopulmonary insufficiency, severe profuse peripheral vascular disease, renal insufficiency, anemia, although his acute on chronic renal insufficiency is improving with increased GFR today, and his white blood cell count is finally starting to trend down although it is still concerning at 20. We will continue to follow closely. We appreciate the opportunity to participate in the care of this patient. VS, I&O, 24H, Fishbone Vital Signs/I&O Vital Signs Date Time Temp Pulse Resp B/P (MAP) Pulse Ox O2 Delivery O2 Flow Rate FiO2 06/13/20 06:00 97.4 103 20 110/72 (85) 96 Nasal Cannula 2.0 I&O- Last 24 Hours up to 6 AM 06/13/20 06:00 Intake Total 1530 ml Output Total 1700 ml Balance -170 ml Laboratory Data 24H LABS Laboratory Tests 2 06/12/20 14:16: Immature Granulocyte % (Auto) , Neutrophils (%) (Auto) , Nucleated Red Blood Cells % (auto) 0.0, Neutrophils 84H, Band Neutrophils 1, Lymphocytes (Manual) 9L, Monocytes (Manual) 1, Metamyelocytes 3H, Myelocytes 2H, Anisocytosis 1+, Ovalocytes 1+, Platelet Estimate NORMAL, Differential Slide Review Report, Peripheral Blood Smear Path Consult PERIPHERAL SMEAR 06/13/20 05:25: Immature Granulocyte % (Auto) , Neutrophils (%) (Auto) , Nucleated Red Blood Cells % (auto) 0.0, Neutrophils 87H, Band Neutrophils 2, Lymphocytes (Manual) 1L, Monocytes (Manual) 8H, Myelocytes 2H, Anisocytosis 2+, Ovalocytes 1+, Platelet Estimate NORMAL, Microcytosis 1+, Crenated Cell 1+, Anion Gap 10, Glomerular Filtration Rate 35.2, Calcium Level 7.8L, Magnesium Level 1.8, Total Bilirubin 0.3, Aspartate Amino Transf (AST/SGOT) 18, Alanine Aminotransferase ( ALT/SGPT) 16, Alkaline Phosphatase 209H, C-Reactive Protein, Quantitative 15.60H, Total Protein 5.3L, Albumin 1.6L, Albumin/Globulin Ratio 0.4 CBC/BMP Laboratory Tests 06/12/20 14:16 06/13/20 05:25 Microbiology Microbiology 06/07/20 Urine Culture - Final, Complete Staphylococcus Epidermidis 06/07/20 Blood Culture - Final, Complete NO GROWTH AFTER 5 DAYS 06/07/20 Blood Culture - Final, Complete NO GROWTH AFTER 5 DAYS 06/07/20 Stool Occult Blood (PEG) - Final, Complete ELOINA MIJARES MD Jun 13, 2020 08:48
[2020-06-13] MEDS: KCL 20MEQ IN D5W 1000ML 1,000 ML IV SCH ×3 (08:56→23:50)
--- NOTE | 2020-06-13 09:14 | IPN ---
PROGRESS NOTE DATE: 06/12/2020 SUBJECTIVE: Pete was getting a PICC line placed today. He had a PICC line in his right arm. I saw him just on his return. He was still on the stretcher. The nurses are in the room. They stated that he had two soft bowel movements, but no watery foul smelling diarrhea. No nausea or vomiting. The patient denies any dysuria or hematuria. He is currently on IV vancomycin and Zosyn. Zosyn to cover for possible hospital acquired pneumonia and vancomycin for a positive urine culture, although the patient is asymptomatic accept for leukocytosis, which has gotten worse. His IV on the right forearm was bleeding profusely today and therefore a PICC line was placed. MEDICATIONS: Zosyn currently day #6. Vancomycin day #4. LABORATORY: White count 30.8, hemoglobin 8.6, hematocrit 27.5, platelets 266. 84% neutrophils, 1% bands, 9% lymphocytes, sodium 143, potassium 4.1, chloride 111, bicarbonate 24, BUN 36, creatinine 2.21, glucose 133, procalcitonin 0.31 down from 0.48. Urine culture positive for Staphylococcus epidermitis and blood cultures two sets were negative on 06/07. CT chest showed a left lower lobe basilar infiltrate. CT abdomen was negative. PHYSICAL EXAMINATION: Temperature is 97.9, pulse 117, respirations 18, O2 saturation 97%., blood pressure 135/70, O2 at 2 liters nasal cannula. Heart: Normal S1, S2, distant. Lungs are clear, no wheezes, rales or rhonchi. Diminished at the bases. Abdomen: Soft, nontender with a lot of flank edema and some ecchymosis in the flank area. Extremities: Right leg with no edema. He has a decubitus ulcer on the right heel with ischemic changes, but no infection. Erythema around the ulcer. Left above knee amputation, saul in place and suture without infection. Left arm: Multiple abrasions, ecchymosis with mild purulent discharge on his wrist, but no significant infection. IMPRESSION: 1. Abnormal chest CT with a questionable left lower lobe consolidation on IV vancomycin and Zosyn. 2-Staphylococcus epidermitis bacteruria, but the patient is asymptomatic, is currently on IV vancomycin as well. His urinalysis was also pretty benign with 9 white cells. 3- Leukocytosis worsening with a white count of 30.8 makes it concerning for Clostridium difficile colitis, although currently asymptomatic. Will continue to monitor his stools. He only had two bowel movements today and none yesterday PLAN: Continue current antibiotic. Monitor for diarrhea. If he has more than 3 bowel movements, watery, please send for Clostridium difficile. I would continue vancomycin and Zosyn for the time being. MTDD
--- NOTE | 2020-06-13 10:33 | ECHO ---
DATE OF PROCEDURE: 06/12/2020 Age: 84 Gender: Male Height: 168 cm Weight: 69 kg REFERRING PHYSICIAN: Ciaran Roca MD. INDICATION: Edema. MEASUREMENTS: IVS 0.8 cm LV 5.6 cm LVPW 0.9 cm LA 4.0 cm Aorta 3.2 cm RV 3.4 cm IVC 2.1 cm FINDINGS: This study is of fair technical quality with somewhat challenging visualizations. Underlying atrial fibrillation with intermittent ventricular pacing. Left ventricle is borderline dilated. There is a septal akinesis, almost dyskinesis. Remaining left ventricular segments are globally hypokinetic. I estimated overall ejection fraction in the neighborhood of 30%. Right ventricle is also hypokinetic and dilated. There is severe biatrial enlargement. Aortic valve is sclerotic, but it is tricuspid and has preserved mobility. There are also degenerative abnormalities of mitral valve with mitral annular calcifications. Tricuspid valve appears normal. Pulmonic valve was not well seen. There is an echo artifact in the right-sided heart chambers consistent with pacemaker or ICD lead. No pericardial effusion is noted. Inferior vena cava is dilated, and there is no appreciable collapse with inspiration. Aortic root is normal. Abdominal aorta appears normal. Aortic arch was not well seen. Doppler interrogation of aortic valve reveals no significant stenosis and mild insufficiency. There is moderately severe mitral insufficiency with central MR jet. There is also moderate tricuspid insufficiency. Calculated pulmonary artery pressure is at minimum in mid 50s. Evaluation of diastolic function is inconclusive due to irregular heart rhythm, most likely atrial fibrillation. CONCLUSIONS: 1. Study is of fair technical quality, underlying atrial fibrillation with wide QRS complex. 2. Mildly dilated left ventricle with septal segmental wall motion abnormality and global hypokinesis and overall estimated LVEF approximately 30%. 3. Dilated right ventricle. 4. Severe biatrial enlargement. 5. Moderately severe mitral insufficiency. 6. Moderate tricuspid insufficiency. 7. Elevated central venous pressure and at least moderate pulmonary hypertension (calculated pulmonary artery pressure at minimum 55 mmHg). MTDD
--- NOTE | 2020-06-13 11:01 | IPNPDOC ---
Date Seen The patient was seen on 06/13/20. Progress Note SUBJECTIVE: 84 yo M, with a hx of COPD, PVD, CKD, BPH, GERD, peripheral neuropathy, gastroparesis, was received rehab at [facility], but was transfered to medical floor for acute L lower ischemia. Patient underwent and EGD and colonscopy on 06/07/20 due to anemia, prior to a L AKA by Dr. Hodges on 06/09/20. Patient was seen and examined at bedside. Overnight reported by RN. The patient had not slept. This morning he appears to be more somnolent, opening eyes only to his name. He does not engage in conversation, does not answer any questions. Heart rate noted to be 120. EKG showing ventricular paced rhythm. OBJECTIVE PHYSICAL EXAMINATION: VITAL SIGNS: please see below General: Somnolent, opening eyes only to his name being called loudly. Nonverbal otherwise HEENT: PERRLA Neck: supple, normal ROM, no JVD Respiratory: lungs CTAB, no wheeze, no rales, no crackles CVS: elevated HR, normal S1, S2, no murmurs Abdo: soft, no masses, no hepatosplenomegaly, BS+, no rebound tenderness Extremities: Left above-knee amputation, right lower extremity 1+ pitting edema. MSK: no joint deformities, normal ROM Neuro: Altered open his eyes only to verbal stimuli. LABORATORY DATA, IMAGING STUDIES, MICROBIOLOGY: Please see below. DVT prophylaxis ordered?: Eliquis. 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 AMS possible 2/2 sepsis - in setting of leukocytosis 2/2 possible HAP, s/p L AKA - concern for metabolic encephalopathy - obtain CT head stat to r/o hemorrhage, as recently resumed on eliquis - repeat CBC, CMP, LA, trop, ammonia - EKG showing ventricular paced rhythm - ongoing treatment with vanco and zosyn Leukocytosis - possibly 2/2 PNA - concern for HAP as patient had slight cough - Remains hemodynamically stable and afebrile - WBC improving slightly, peak 30.8 on 06/12, down to 21.7. - CRP rising - repeat procal, continue to trend - MRSA negative - Blood cultures 06/07: Negative at 5 days - c/w Zosyn (Day #6); s/p Vancomycin - ID on consultation; appreciate their input PVD s/p Bilateral common iliac artery stent (05/24/2020) - c/w ASA 81 and Eliquis - Vascular surgery on consultation; appreciate their input Acute Kidney Injury - Review of medical record; Cr ranges from 1-1.5 - marked edema of hips, lower abo - BNP elevated - pending echo; concern for cardiorenal syndrome - received 1 dose IV lasix this am per nephrology - started D5W with 20 mwq KCl at 100 cc/hr - Nephrology on consult; appreciate their input Anemia 2/2 GI bleed - Hg decreased down to 7.7 - s/p EGD (found gastritis) and Colonoscopy (found polyps, diverticulosis, ulcer in rectum, internal/external hemorrhoids) with Dr. Obrien on 06/07 - c/w Carafate and Protonix - transfuse 1 unit pRBC in setting of acute illness Chronic Atrial Fibrillation - c/w Amiodarone / Diltiazem / Atenolol - s/p Watchman procedure; still on an anticoagulant due to his PAD and recent stents Urinary retention with BPH - Patient required straight cath on 06/12 - c/w Tamsulosin and Finasteride Rectal Ulcer - c/w Hydrocortisone topical x 2 weeks COPD with chronic hypoxic respiratory failure on 2L NC - Patient has been on 2 L nasal cannula as an outpatient. However, not appear to require any while inpatient - Family and patient continued to request oxygen in place - advised of risks - Will need outpatient follow up with Pulmonology for PFTs Chronic Steroid Use - As per granddaughter, patient takes this for pain control - Has been resumed (06/10) - c/w Prednisone DLP - c/w Atorvastatin Chronic pain - c/w Gabapentin / Prednisone - c/w Tramadol - s/p Morphine Protein Calorie Malnutrition - Poor oral intake with history of gastroparesis - Continue with encouragement and Ensure supplementation - c/w Pepto-Bismol alone for nausea Debility - c/w PT and OT Lewy Body Dementia - Has had intermittent hallucinations - Will avoid anti-emetics - c/w Ropinirole and Paroxetine DVT prophylaxis - c/w full anticoagulation with Eliquis Dispo: pending clinical improvement. I spoke to the patient's granddaughter and healthcare proxy Amalia Posada at [phone]. I answered all questions in detail. We discussed a palliative care consult, to assist in management of symptomatology and anorexia. She agrees, consult was placed. I provided her with my direct contact number for any questions or concerns. VS, I&O, 24H, Fishbone Vital Signs/I&O Vital Signs Date Time Temp Pulse Resp B/P (MAP) Pulse Ox O2 Delivery O2 Flow Rate FiO2 06/13/20 08:30 97.0 127 20 124/67 (86) 97 Nasal Cannula 2.0 I&O- Last 24 Hours up to 6 AM 06/13/20 06:00 Intake Total 1530 ml Output Total 1700 ml Balance -170 ml Laboratory Data 24H LABS Laboratory Tests 2 06/12/20 14:16: Immature Granulocyte % (Auto) , Neutrophils (%) (Auto) , Nucleated Red Blood Cells % (auto) 0.0, Neutrophils 84H, Band Neutrophils 1, Lymphocytes (Manual) 9L, Monocytes (Manual) 1, Metamyelocytes 3H, Myelocytes 2H, Anisocytosis 1+, Ovalocytes 1+, Platelet Estimate NORMAL, Differential Slide Review Report, Peripheral Blood Smear Path Consult PERIPHERAL SMEAR 06/13/20 05:25: Immature Granulocyte % (Auto) , Neutrophils (%) (Auto) , Nucleated Red Blood Cells % (auto) 0.0, Neutrophils 87H, Band Neutrophils 2, Lymphocytes (Manual) 1L, Monocytes (Manual) 8H, Myelocytes 2H, Anisocytosis 2+, Ovalocytes 1+, Platelet Estimate NORMAL, Microcytosis 1+, Crenated Cell 1+, Anion Gap 10, Glomerular Filtration Rate 35.2, Calcium Level 7.8L, Magnesium Level 1.8, Total Bilirubin 0.3, Aspartate Amino Transf (AST/SGOT) 18, Alanine Aminotransferase (ALT/SGPT) 16, Alkaline Phosphatase 209H, C-Reactive Protein, Quantitative 15.60H, Total Protein 5.3L, Albumin 1.6L, Albumin/Globulin Ratio 0.4 CBC/BMP Laboratory Tests 06/12/20 14:16 06/13/20 05:25 Microbiology Microbiology 06/07/20 Urine Culture - Final, Complete Staphylococcus Epidermidis 06/07/20 Blood Culture - Final, Complete NO GROWTH AFTER 5 DAYS 06/07/20 Blood Culture - Final, Complete NO GROWTH AFTER 5 DAYS 06/07/20 Stool Occult Blood (PEG) - Final, Complete SUHAIL CALDERON MD Jun 13, 2020 11:01
[2020-06-13] MEDS: GABAPENTIN 100 MG CAP PO SCH ×3 (11:20→20:43)
--- NOTE | 2020-06-13 11:21 | REP ---
INDICATION: AMS. COMPARISON: Comparison CT study of the brain May 27, 2020.. TECHNIQUE: Helical scanning is acquired. 5 mm axial images were reformatted. Coronal MPR images were generated. FINDINGS: Preliminary digital education nurse radiograph is unremarkable. Bone window settings demonstrate heavy vascular calcification in the distal internal carotid and distal vertebral arteries bilaterally. Visualized paranasal sinuses are clear. The bony calvarium is intact. No scalp hematoma or mass is seen. On soft tissue window settings, there is moderate generalized volume loss again noted unchanged. Physiologic punctate calcification is seen in the basal ganglia as before. Minimal small vessel atherosclerotic changes are noted. There is no evidence of intracranial hemorrhage. No acute infarction is seen. No mass, extra-axial fluid collection, or midline shift is appreciated. IMPRESSION: Vascular calcification and generalized volume loss. No acute intracranial abnormality. No significant change from the 27 May 2020 study.. <Electronically signed by Mike El > 06/13/20 1110
[2020-06-13 12:09] LABS: HEMATOCRIT 25.7 % (42.0-52.0); MEAN CORPUSCULAR HGB CONC 31.1 g/dl (32.0-36.5); MEAN CORPUSCULAR VOLUME 93.1 fl (80.0-96.0); PLATELET COUNT, AUTOMATED 238 10^3/uL (150-450); RED BLOOD COUNT 2.76 10^6/uL (4.30-6.10)
[2020-06-13 12:11] LABS: WHITE BLOOD COUNT 23.8 10^3/uL (4.0-10.0)
[2020-06-13 12:31] LABS: ALBUMIN 1.7 GM/DL (3.2-5.2); BILIRUBIN,TOTAL 0.4 MG/DL (0.2-1.0); CALCIUM LEVEL 8.3 MG/DL (8.8-10.2); CREATININE FOR GFR 1.88 MG/DL (0.70-1.30); GLOMERULAR FILTRATION RATE 36.5 (>35); MAGNESIUM LEVEL 1.6 MG/DL (1.8-2.4); POTASSIUM SERUM 3.3 MEQ/L (3.5-5.1); TOTAL PROTEIN 5.2 GM/DL (6.4-8.2); TROPONIN I 0.03 NG/ML (< 0.10)
[2020-06-13] MEDS: APIXABAN 2.5 MG TAB (ELIQUIS) PO SCH ×2 (12:31→20:43)
[2020-06-13] MEDS: ASPIRIN 81MG ENTERIC TABLET PO SCH (12:31)
[2020-06-13] MEDS: PANTOPRAZOLE 40MG TAB (PROTONIX) PO SCH ×2 (12:31→20:42)
[2020-06-13] MEDS: AMIODARONE 200 MG TAB (PACERONE) PO SCH (12:32)
[2020-06-13] MEDS: PARoxetine 20MG TABLET PO SCH (12:32)
[2020-06-13] MEDS: atenoloL 25 MG TAB PO SCH ×2 (12:32→20:43)
[2020-06-13] MEDS: FINASTERIDE 5 MG TAB PO SCH (12:33)
[2020-06-13] MEDS: ATORVASTATIN 20 MG TAB PO SCH (12:33)
[2020-06-13] MEDS: predniSONE 5 MG TAB PO SCH (12:33)
[2020-06-13 12:49] LABS: BASOPHILS 1 % (0-1); LYMPHOCYTES 11 % (16-44); METAMYELOCYTES 1 % (0-0); MONOCYTES 5 % (0-5); MYELOCYTES 4 % (0-0); NEUTROPHILS 76 % (28-66)
[2020-06-13 12:50] LABS: ANISOCYTOSIS 1+; HYPOCHROMASIA 1+; MICROCYTOSIS 1+; PLATELET ESTIMATE NORMAL (NORMAL); POIKILOCYTOSIS 1+
[2020-06-13] MEDS ORDERED: FUROSEMIDE 100MG/10ML VIAL (J1940) IV ONE (16:00)
--- NOTE | 2020-06-13 17:01 | ECGEPIP ---
[facility] Test Date: 2020-06-13 Pat Name: MARCY LEE Department: Room: [place] [address] Gender: Male Candy Packer: CHAZ : [id number] Requested By: SUHAIL CALDERON Order Number: [id number] Reading MD: Jerel Tejada Measurements Intervals [place] Rate: 117 P: VT: QRS: 47 QRSD: 190 T: -72 QT: 416 QTc: 580 Interpretive Statements Ventricular-paced rhythm Suspect underlying sinus tachycardia with some degree of AV block. Faster heart rate and ventricular new compared with 06/16/2020 at 1115 hrs. Electronically Signed on 06-13-2020 17:01:34 EDT by Jerel Tejada
[2020-06-13] MEDS: VANCOMYCIN HCL 1,000 MG, VIAL MATE ADAPTER 1 EACH in NS 250 ML IV SCH (17:29)
[2020-06-13] MEDS: MAG SULF 1GM/100ML (MAG RUN) 1 GM in IV 1 EA IV SCH ×2 (18:00→18:23)
[2020-06-13] MEDS: POTASSIUM CHLORIDE 10% LIQ 20 MEQ/15 ML UDC PO SCH (18:24)
[2020-06-13] MEDS: predniSONE 2.5 MG TAB PO SCH (18:24)
[2020-06-13] MEDS: rOPINIRole 0.25 MG TAB(REQUIP) PO SCH (20:43)
[2020-06-13] MEDS: ANUSOL HC 25MG SUPP PR SCH (20:43)
[2020-06-13] MEDS: TAMSULOSIN 0.4 MG CAP PO SCH (20:43)
[2020-06-13] MEDS ORDERED: MAG SULF 1GM/100ML (MAG RUN) 1 GM in IV 1 EA IV SCH (21:00)
--- NOTE | 2020-06-13 21:55 | IPN ---
NEPHROLOGY PROGRESS NOTE DATE: 06/13/2020 SUBJECTIVE: The patient was seen and examined at the bedside today morning. He had just come back after getting his CAT scan done. Patient is slightly more obtunded and confused right now. He was given a diuretic yesterday. He is making a good amount of urine. Renal function is slightly better today as compared with yesterday. OBJECTIVE: VITAL SIGNS: Temperature 97.1 degrees Fahrenheit, blood pressure 124/72, pulse 109, respiratory rate 20, saturating 96% on nasal cannula at 2 liters. INTAKE AND OUTPUT: Urine output recorded as 1.2 liters yesterday and 650 mL by the time I saw him in the morning. Weight in the bed scale is not available. PHYSICAL EXAMINATION: GENERAL: Patient is awake, but eyes closed, answers very few questions. HEAD AND NECK: Pupils equally round and reactive to light. Mucous membranes are moist. Neck is supple. He has elevated JVD and dilated external jugular veins as well. CARDIOVASCULAR: S1, S2, regular rate. 2+ edema of the bilateral lower extremities. RESPIRATORY: Mildly decreased breath sounds at the bases. Mild expiratory rhonchi at the bases. ABDOMEN: Soft, positive bowel sounds. Abdominal wall edema is noted. GENITOURINARY: He has an indwelling Morris catheter at this time. MUSCULOSKELETAL: Left above knee amputation site is covered with a compression bandage. He has 2+ edema of the right lower extremity all the way up to the thigh. REGISTERED RADIOLOGIC TECHNOLOGIST: Patient is encephalopathic, answers very few questions. Moves extremities to painful stimuli. LABORATORY REVIEW: CBC showed WBC 21.7, hemoglobin 7.7, platelets 216,000. BMP showed sodium 146, potassium 3.7, chloride 113, bicarb 23, BUN 40, creatinine 1.9, glucose 168. Magnesium 1.8. C-reactive protein 15.6. IMAGING: A CT scan of the head was done today morning, which showed vascular calcification and generalized volume loss. No acute intracranial abnormality. CURRENT INPATIENT MEDICATIONS: Patient's medications were all reviewed by myself. I have started the patient on KCl 20 mEq and D5W at 100 cc an hour. He continues to be on Zosyn. He is getting Vancomycin. He was given a dose of Lasix 40 mg I.V. times one dose today morning and another dose of 60 mg I.V. was ordered for the evening. Patient was also given potassium chloride 40 mEq in the morning. ASSESSMENT AND PLAN: 1. Acute nonoliguric renal failure: Patient is significantly volume overloaded. He was given Lasix yesterday and that has helped improve his creatinine level. Most likely it is cardiorenal. Another dose of Lasix was ordered for today morning. Continue the Morris catheter at this time. 2. Decompensated congestive heart failure: Continue the diuretic dose as mentioned above. The rest of the dose adjustment will be done tomorrow morning. 3. Staph epi urinary tract infection: Patient is on Vancomycin at this time. 4. Hypokalemia: Patient was already given potassium orally and potassium has been added in the I.V. fluids as well. 5. Hypernatremia: It is secondary to combination of poor oral intake, patient is unable to drink water and he is being diuresed as well. He has been started on D5W with potassium. 6. Atrial fibrillation: Heart rate is controlled with Atenolol, Amiodarone and Cardizem.
[2020-06-14] MEDS: PIPERACILLIN/TAZOBACTAM SOD 3.375 GM in D5W MINI-BAG PLUS 50 ML IV SCH ×4 (03:16→22:23)
[2020-06-14] MEDS: SODIUM CHLORIDE 0.9% INJ 10 ML SYR IV SCH ×2 (05:02→17:27)
[2020-06-14 06:00] VITALS: BP 111/73
[2020-06-14] MEDS: SYMBICORT 160/4.5MCG INHALER 6GM INH SCH ×2 (07:52→20:19)
[2020-06-14 08:09] LABS: HEMATOCRIT 27.1 % (42.0-52.0); HEMOGLOBIN 8.7 g/dl (13.5-17.5); MEAN CORPUSCULAR HEMOGLOBIN 29.9 pg (27.0-33.0); MEAN CORPUSCULAR HGB CONC 32.1 g/dl (32.0-36.5); MEAN CORPUSCULAR VOLUME 93.1 fl (80.0-96.0); PLATELET COUNT, AUTOMATED 237 10^3/uL (150-450); RED BLOOD COUNT 2.91 10^6/uL (4.30-6.10)
[2020-06-14 08:12] LABS: WHITE BLOOD COUNT 24.4 10^3/uL (4.0-10.0)
[2020-06-14] MEDS: predniSONE 5 MG TAB PO SCH (08:17)
[2020-06-14] MEDS: PARoxetine 20MG TABLET PO SCH (08:17)
[2020-06-14] MEDS: ATORVASTATIN 20 MG TAB PO SCH (08:17)
[2020-06-14] MEDS: ASPIRIN 81MG ENTERIC TABLET PO SCH (08:17)
[2020-06-14] MEDS: GABAPENTIN 100 MG CAP PO SCH ×3 (08:17→22:21)
[2020-06-14] MEDS: PANTOPRAZOLE 40MG TAB (PROTONIX) PO SCH ×2 (08:18→22:22)
[2020-06-14] MEDS: APIXABAN 2.5 MG TAB (ELIQUIS) PO SCH ×2 (08:18→22:21)
[2020-06-14] MEDS: SUCRALFATE 1 GM TAB PO SCH ×3 (08:18→17:26)
[2020-06-14] MEDS: FINASTERIDE 5 MG TAB PO SCH (08:18)
[2020-06-14] MEDS: atenoloL 25 MG TAB PO SCH ×2 (08:21→22:23)
[2020-06-14] MEDS: AMIODARONE 200 MG TAB (PACERONE) PO SCH (08:21)
[2020-06-14 08:29] LABS: LYMPHOCYTES 5 % (16-44); MONOCYTES 8 % (0-5); NEUTROPHILS 87 % (28-66)
[2020-06-14 08:30] LABS: PLATELET ESTIMATE NORMAL (NORMAL)
--- NOTE | 2020-06-14 08:45 | IPNPDOC ---
Date Seen The patient was seen on 06/14/20. Progress Note Patient seen and examined now postop day 5 status post left above-knee amputation. He is more alert today, and ate a good part of his breakfast. He is still confused, oriented to person but not place or time. It is difficult to gauge with this patient whether or not he is making progress or regressing, because his mental status and medical comorbidities tend to wax and wane considerably from day-to-day. Palliative care consult was ordered to provide additional assistance for supportive care. I think this is appropriate. The patient's prognosis is still unclear to me, although overall I think it is fairly poor. His acute on chronic protein malnutrition has proven very challenging for wound healing, along with baseline poor tissue quality, peripheral vascular disease, neuropathy, chronic steroid use. His white blood cell count is still elevated 24, likely multifactorial due to possible conversion left lower lobe atelectasis the left lower lobe pneumonia, peripheral ischemia lower extremities, UTI, chronic steroid use. His anemia is persistent, hemoglobin 8-8.7 after transfusion yesterday, with etiology likely chronic disease, renal insufficiency, gastritis, frequent blood draws, bleeding from his left upper extremity and IV sites yesterday per the nurse. His acute on chronic renal insufficiency, thought to be cardiorenal with CHF, still waxing and waning but no significant improvement yet. Labs today pending. Although he looks a little brighter today and is more interactive, most days he seems fairly depressed, sometimes noncommunicative, delirious, and appears to have failure to thrive. It is going to be a struggle to move through all of this towards a meaningful recovery, especially since the pressure ulcer on the right heel is progressing despite offloading and careful wound care, and is starting to look similar to the ulcer on the left heel. Again, the patient was not at risk for limb loss with his severe peripheral vascular disease while his skin and tissue were intact, but with pressure wounds or open ulcers, he is high risk for limb loss due to severe microvascular occlusions at the distal tibials and pedal vessels. Even attempting a second revascularization of the right lower extremity more proximally would likely not greatly impact the healing of the foot, which requires outflow at the distal tibial and pedal vessels. He is now at risk for a right lower extremity amputation, and does not have sufficient blood flow to heal a below-knee amputation. If he becomes a bilateral above-knee amputee, his prognosis will be even worse. On exam today, the left AKA incision is clean dry and intact. Minimal serosanguineous drainage noted. Edema is significantly diminished today. However, I note a small purple area a few centimeters proximal to the incision on the posterior stump. This may be from pressure, it may be a small bruise, but it is concerning. His healing is already so tenuous for the reasons discussed above, and any detrimental changes are quite worrisome. We will continue to follow this carefully. We will try very hard to make sure there is no extra pressure in the area. I do his dressing changes very carefully to avoid creating any pressure areas with the wrap. The incision was cleaned and dried. Xeroform, fluffs, kerlix, Ok wrap were replaced. The patient tolerated this well today with minimal pain or discomfort. We will continue to follow. We appreciate the opportunity to participate in the care of this patient. VS, I&O, 24H, Fishbone Vital Signs/I&O Vital Signs Date Time Temp Pulse Resp B/P (MAP) Pulse Ox O2 Delivery O2 Flow Rate FiO2 06/14/20 08:21 115 118/70 06/14/20 07:52 16 06/14/20 06:00 98.0 97 Nasal Cannula 2.0 I&O- Last 24 Hours up to 6 AM 06/14/20 06:00 Intake Total 3640 ml Output Total 3350 ml Balance 290 ml Laboratory Data 24H LABS Laboratory Tests 2 06/13/20 11:34: Immature Granulocyte % (Auto) , Neutrophils (%) (Auto) , Nucleated Red Blood Cells % (auto) 0.0, Neutrophils 76H, Band Neutrophils 2, Lymphocytes (Manual) 11L, Monocytes (Manual) 5, Basophils (Manual) 1, Metamyelocytes 1H, Myelocytes 4H, Hypochromasia 1+, Poikilocytosis 1+, Anisocytosis 1+, Microcytosis 1+, Platelet Estimate NORMAL, Anion Gap 6L, Glomerular Filtration Rate 36.5, Lactic Acid Level 1.3, Calcium Level 8.3L, Magnesium Level 1.6L, Total Bilirubin 0.4, Aspartate Amino Transf (AST/SGOT) 16, Alanine Aminotransferase (ALT/SGPT) 16, Alkaline Phosphatase 191H, Ammonia 27, Troponin I 0.03#, Total Protein 5.2L, Albumin 1.7L, Albumin/Globulin Ratio 0.5 06/13/20 16:20: Vancomycin Level Trough 17.4 06/14/20 07:50: Immature Granulocyte % (Auto) , Neutrophils (%) (Auto) , Nucleated Red Blood Cells % (auto) 0.0, Neutrophils 87H, Lymphocytes (Manual) 5L, Monocytes (Manual) 8H, Platelet Estimate NORMAL, Red Blood Cell Morphology NORMAL CBC/BMP Laboratory Tests 06/13/20 11:34 06/14/20 07:50 Microbiology Microbiology 06/07/20 Urine Culture - Final, Complete Staphylococcus Epidermidis 06/07/20 Blood Culture - Final, Complete NO GROWTH AFTER 5 DAYS 06/07/20 Blood Culture - Final, Complete NO GROWTH AFTER 5 DAYS 06/07/20 Stool Occult Blood (PEG) - Final, Complete ELOINA MIJARES MD Jun 14, 2020 08:45
[2020-06-14 08:52] LABS: ALBUMIN 1.7 GM/DL (3.2-5.2); BILIRUBIN,TOTAL 0.4 MG/DL (0.2-1.0); C REACTIVE PROTEIN QUANTITATIV 7.51 MG/DL (0.00-0.30); CALCIUM LEVEL 7.9 MG/DL (8.8-10.2); CREATININE FOR GFR 1.52 MG/DL (0.70-1.30); GLOMERULAR FILTRATION RATE 46.6 (>35); MAGNESIUM LEVEL 1.7 MG/DL (1.8-2.4); POTASSIUM SERUM 3.7 MEQ/L (3.5-5.1); TOTAL PROTEIN 5.1 GM/DL (6.4-8.2)
[2020-06-14] MEDS: POTASSIUM CHLORIDE 10% LIQ 20 MEQ/15 ML UDC PO SCH (09:05)
[2020-06-14] MEDS: SODIUM CHLORIDE 0.9% INJ 10 ML SYR IV PRN ×2 (11:16→23:53)
[2020-06-14] MEDS: FUROSEMIDE 40MG/4ML VIAL (J1940) IV SCH ×2 (12:23→16:05)
--- NOTE | 2020-06-14 13:14 | IPN ---
INFECTIOUS DISEASE PROGRESS NOTE DATE: 06/13/2020 ATTENDING PHYSICIAN: Dr. Jama Hassan SUBJECTIVE: Ken was seen and examined by the Infectious Disease Service this afternoon while lying upright in bed. His primary district sales representative and granddaughter, Prisca were present in the room. He was just in the process of receiving one unit of transfused packed red blood cells. Speaking with nursing, he was quite somnolent and difficult to arouse this morning, but that seemed to improve significantly after his granddaughter arrived. The granddaughter expressed concerns over the amount of food the patient is being served as well as efforts to ensure that he is eating enough. She also is concerned about him mistakenly receiving any antiemetics in the form of Zofran or Reglan which apparently in the past have shown to worsen his baseline dementia. He is now on postoperative day four after a left above the knee amputation. He has a non-productive cough. He denies being in any pain although when his left stump was manipulated to remove dressing, he was grimacing. The patient has not had a bowel movement since 6:00 p.m. yesterday (06/12). He had four bowel movements during the day yesterday that were all looser but did have some stool present. OBJECTIVE: PHYSICAL EXAMINATION: VITAL SIGNS: Temperature of 97.1 (T-max 97.6), heart rate 109, respiratory rate 20, blood pressure 124/72, SpO2 of 96% on 2 liters of oxygen via nasal cannula. BMI of 24.6. GENERAL APPEARANCE: Elderly male, pale appearing. He keeps his eyes closed most of the exam but does respond appropriately to all commands and answers questions in a few words when spoken to directly and when in a loud volume. He is alert and oriented to person and place. HEENT: There are some areas of keratinized papules on the vertex of the scalp. Non-injected, anicteric sclerae. There is conjunctival pallor. PERRLA. Oral cavity mucous membranes are somewhat dry. There is no pharyngeal erythema or exudate. NECK: Supple with no lymphadenopathy appreciated. CHEST: There is no chest wall tenderness. There is a pacemaker in place in the left chest wall. CARDIOVASCULAR: Heart sounds are distant, borderline tachycardic rate, regular rhythm. No murmurs are appreciated. Capillary refill between 2 and 3 seconds. 2+ radial pulses bilaterally. RESPIRATORY: Decreased breath sounds bilaterally with a decreased tidal volume and respiratory effort with no adventitious breath sounds appreciated. He is breathing with supplemental oxygen. Symmetric chest expansion. GASTROINTESTINAL: Abdomen is soft and nontender. There is some mild distention midline. No rigidity or guarding appreciated. Normoactive bowel sounds throughout. No hepatosplenomegaly appreciated. EXTREMITIES: Left above the knee amputation. The wound of the distal end of the stump was examined, showing intact sutures and saul with no significant drainage, bleeding, induration, warmth. The patient does grimace when the stump is manipulated. Right heel has a 5 by 5 cm ulcer that appears macerated with some moderate surrounding erythema with no significant induration, necrotic tissue visualized, or foul smelling discharge. Skin of the right foot is very dry and there is onychomycosis. Bilateral upper extremities have diffuse ecchymosis throughout. The left upper extremity is heavily bandaged. The right upper extremity has one area of an open sore near the antecubital fossa and there are some palpable micro hematomas over the proximal right forearm. There is a PICC line in place in the right arm. GENITOURINARY: There is a Morris catheter in place draining moderately dark yellow colored urine, approximately 100 mL. NEUROLOGICAL: The patient keeps his eyes closed for most of the exam but responds to all commands appropriately. He answers questions in a few words when spoken to directly. He is alert and oriented to person and place. Non-dysarthric speech. LABORATORY STUDIES: CBC - WBC 23.8, hemoglobin 8, hematocrit 25.7, platelet count 238,000, neutrophil predominate with neutrophils at 76%, lymphocytes 11%. There are 2 band neutrophils, monocytes 5%, basophils 1%, metamyelocytes 1%, myelocytes 4%. CMP - sodium 144, potassium 3.3, chloride 110, bicarbonate 28, BUN 37, creatinine 1.88, glucose 148, lactic acid repeat 1.3 (previous 0.9), calcium 8.3, magnesium 1.6, total bilirubin 0.4, AST 16, ALT 16, alkaline phosphatase 191, ammonia 27, troponin-I 0.03, total protein 5.2, albumin 1.7. There is a pending procalcitonin. Toxicology - Vancomycin trough of 17.4. Urine culture from 10 grew methicillin resistant staphylococcus epidermitis, more than 100,000. Blood cultures from 3/10 continue to show no growth after 5 days. IMAGING: New imaging today in the form of a CT head without contrast with following impression "vascular calcification, generalized volume loss. No acute intracranial abnormality. No significant change from the May study". INTAKE AND OUTPUT: Twenty-four hour input from 06/12 midnight to 06/13 midnight of intake 1,530 mL, output 1,300 mL, with a net balance of +230 mL and a urine output average of 0.77 mL per kg per hour. IMPRESSION AND PLAN: 1. Leukocytosis - The patient's white count is down significantly at 23 from 30 yesterday. We performed a very thorough, extensive physical exam. At this point the right heel ulcer does not appear to be necrotic or significantly infected. He does continue to have the left lower lobe atelectasis versus consolidation and is receiving both IV Zosyn and Vancomycin at this time. Upper extremities, while having thin skin with multiple areas of ecchymosis and some swelling, do not appear to be infected. At this stage, leukocytosis may be still just a manifestation of the significant severe peripheral vascular disease and ischemia. Urine culture that grew methicillin resistant staphylococcus epidermitis is an asymptomatic issue at this point and does not need to be treated. With the patient's overall poor health and multiple comorbidities, it is okay from our end to continue with the Vancomycin. 2. Left lower lobe infiltrate versus atelectasis. Pt continues to have coverage for possible acquired pneumonia in the form of IV Zosyn (day number six) and IV Vancomycin. The patient continues to remain on supplemental oxygen and is afebrile with a non-productive cough. As the MRSA screen was negative, MRSA pneumonia is not suspected at this time. 3. Severe peripheral vascular disease with left lower lobe ischemia status post left above the knee amputation. The patient was seen and examined by the vascular surgery service this morning and had his dressings changed. The stump is clean, dry and intact. He also has a heel protective cushioning for the ulcer on the right heel. 4. Acute non-oliguric renal failure on chronic kidney disease stage 2 nephrology has been consulted and is following the patient and today kidney function actually improved slightly. He does have the asymptomatic urine culture growth of staph epidermitis. At this point, from our service, okay to continue with the Vancomycin in the setting of his overall declining status. MTDD
[2020-06-14 14:00] VITALS: BP 111/70
[2020-06-14] MEDS ORDERED: VANCOMYCIN INTERMITTENT/PULSE DOSING BY CLINICAL PHARMACIST PER DOSING PROTOCOL XX SCH (16:40)
--- NOTE | 2020-06-14 17:21 | CR.PDOC ---
General Date of Consultation: Jun 14, 2020 Referring Provider: Rey Pettit MD Attending Physician: GRAYSON DONAHUE MD Consultation REASON FOR CONSULTATION/CHIEF COMPLAINT: Contacted on June 13 2020 by personal financial planner to assess patient for possible palliative care. HISTORY OF PRESENT ILLNESS: 84 year old male with severe arterial vascular disease who had stent placement but ultimately need to have left BKA, GERD, hypertension peripheral neuropathy, COPD, depression. heme + stool s/p blood transfusions, dementia, CKD. He reports he was previosuly ambulatory with walker at home. He has right heel wounds and stated if he can have surgery and it is offered, he will have it "because I want to be all fixed up before I ." He reports having some phantom limb pain on the left side and some throbbing pain in his foot on the right, but further stated he thinks the current medications are managing his pain adequately. He stated "the kidney doctor told me, 'Ken, it doesn't look good' so I know things might not go well." ALLERGIES: Please see below. HOME MEDICATIONS: Please see below. PAST MEDICAL HISTORY: 1. arterial vascular disease 2. AF with pacemaker 3. peripheral neuroapthy 4. dementia 5. stage 3 CKD 6. COPD 7. RLS 8. dyslipidemia 9. s/p COVID pneumonia July 2019 PAST SURGICAL HISTORY: 1. pacemaker and Watchman procedure 2. cardiac ablation 3. 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 Reports he has an appetite, but starts to eat then doesn't want any more. denies chest pain or palpitations. PHYSICAL EXAMINATION: VITAL SIGNS: Please see below. GENERAL APPEARANCE: frail appearing male resting in bed in no distress. He was actively hallucinating while I was there, but able to answer questions HEENT: edentulous upper arch RESPIRATORY: faint wheezes, decreased breath sounds bilateral bases CARDIOVASCULAR: RRR ABDOMEN: some epigastric tenderness, +BS no guarding or rebound EXTREMITIES: left stump with dressing and PATY wrap, Right LE in elevated boot, dressing right heel CDI NEUROLOGICAL: alert, atated "I know I have Alzheimers". Hallucinating and reported "I think my dreams are real sometimes PSYCHIATRIC: appeared euthymic, speech rate and volume within normal limits though he spent considerable time discussing people and animals who were not present in the room LABORATORY DATA: Please see below. ASSESSMENT/PLAN: arterial vascular disease with pulmonary hypertension, dementia, CKD, GI bleed. The question is whether or not it makes any sense to p erform further surgery on this gentleman if it is needed for salvaging his right leg. He stated "I know surgery might kill me." I am not sure he really has capacity to make medical decisions at this time and if not, his granddaughter Amalia (HCP) should be consulted about whether or not aggressive and potentially lethal treatments should be pursued or if the family/she feel comfort is more important at this point in his life. I doubt he could follow up at my outpatient clinic ( if he is ever discharged from the hospital) very easily given his BKA and frankly, appears more suitable for hospice care than palliative care in my clinical opinion. At the time of my visit he did not have any symptom complaints at all as far as pain, dyspnea. Phantom limb pain does not respond well to medications though if there is someone in PT who is able to do mirror therapy with him that may be helpful. Vital Signs/I&O Vital Signs Date Time Temp Pulse Resp B/P (MAP) Pulse Ox O2 Delivery O2 Flow Rate FiO2 06/14/20 14:00 97.9 120 17 111/70 (84) 93 Room Air 06/14/20 09:00 2.0 I&O- Last 24 Hours up to 6 AM 06/14/20 06:00 Intake Total 3640 ml Output Total 3350 ml Balance 290 ml Laboratory Data Labs 24H Laboratory Tests 2 06/14/20 07:50: Immature Granulocyte % (Auto) , Neutrophils (%) (Auto) , Nucleated Red Blood Cells % (auto) 0.0, Neutrophils 87H, Lymphocytes (Manual) 5L, Monocytes (Manual) 8H, Red Blood Cell Morphology NORMAL, Platelet Estimate NORMAL, Anion Gap 5L, Glomerular Filtration Rate 46.6, Calcium Level 7.9L, Magnesium Level 1.7L, Total Bilirubin 0.4, Aspartate Amino Transf (AST/SGOT) 18, Alanine Aminotransferase (ALT/SGPT) 19, Alkaline Phosphatase 217H, C-Reactive Protein, Quantitative 7.51H, Total Protein 5.1L, Albumin 1.7L, Albumin/Globulin Ratio 0.5 06/14/20 15:46: Vancomycin Level Trough 22.8H CBC/BMP Laboratory Tests 06/14/20 07:50 Microbiology Microbiology 06/07/20 Urine Culture - Final, Complete Staphylococcus Epidermidis 06/07/20 Blood Culture - Final, Complete NO GROWTH AFTER 5 DAYS 06/07/20 Blood Culture - Final, Complete NO GROWTH AFTER 5 DAYS 06/07/20 Stool Occult Blood (PEG) - Final, Complete Allergies Coded Allergies: petrolatum,white (Verified Allergy, Mild, ITCH/RASH, 09/21/19) fluconazole (Verified Allergy, Unknown, UNKNOWN REACTION, 09/16/19) fluticasone (Verified Allergy, Unknown, UNKNOWN REACTION, 09/16/19) metformin (Verified Allergy, Unknown, UNKNOWN REACTION, 09/16/19) metoclopramide (Verified Adverse Reaction, Severe, 06/10/20) Lightheadedness promethazine (Verified Adverse Reaction, Intermediate, Altered Mental Status , 09/21/19) azithromycin (Verified Adverse Reaction, Unknown, LOWERS BP, 09/16/19) clarithromycin (Verified Adverse Reaction, Unknown, LOWERS BP, 09/16/19) ondansetron (Verified Adverse Reaction, Unknown, Hallucinations, 05/27/20) Pt states he experiences hallucinations with medication procaine (Verified Adverse Reaction, Unknown, DIZZINESS, 09/16/19) Home Medications Scheduled Acetaminophen (Acetaminophen) 500 Mg Tablet, 1,000 MG PO QID, #1 Amiodarone HCl (Amiodarone HCl) 200 Mg Tablet, 200 MG PO DAILY, (Reported) Amiodarone HCl (Amiodarone HCl) 200 Mg Tablet, 200 MG PO DAILY, #1 Apixaban (Eliquis) 2.5 Mg Tab, 2.5 MG PO BID, (Reported) Apixaban (Eliquis) 2.5 Mg Tablet, 2.5 MG PO BID, #1 Aspirin (Aspirin EC) 81 Mg Tablet.dr, 81 MG PO DAILY, (Reported) NEW SCRIPT FROM 05/20/20 Aspirin (Aspirin EC) 81 Mg Tablet.dr, 81 MG PO DAILY, #1 Atenolol (Atenolol) 25 Mg Tablet, 25 MG PO BID, (Reported) Atenolol (Atenolol) 25 Mg Tablet, 25 MG PO BID, #1 Atorvastatin Calcium (Atorvastatin Calcium) 40 Mg Tablet, 40 MG PO DAILY, (Reported) NEW SCRIPT FROM 05/20/20 Atorvastatin Calcium (Atorvastatin Calcium) 20 Mg Tablet, 40 MG PO DAILY, #1 Budesonide/Formoterol (Symbicort 160-4.5 Mcg Inhaler) 6 Gm Hfa.aer.ad, 2 PUFF INH BID, (Reported) Budesonide/Formoterol (Symbicort 160-4.5 Mcg Inhaler) 6 Gm Hfa.aer.ad, 2 PUFF INH RBID, #1 Diltiazem Hcl (Cardizem Cd) 120 Mg Cap.er.24h, 120 MG PO DAILY, (Reported) per discussion with Dr. Dick 06/05/20, pt should be on Diltiazem CD 120 mg po daily, removing immediate release from med rec Finasteride (Finasteride) 5 Mg Tab, 5 MG PO DAILY, (Reported) Finasteride (Finasteride) 5 Mg Tablet, 5 MG PO DAILY, #1 Gabapentin (Gabapentin) 100 Mg Capsule, 200 MG PO Q8H for 1 Days, #6 Gabapentin (Gabapentin) 100 Mg Capsule, 200 MG PO TID, #1 Magnesium Sulfate (Epsom Salt) 1,920 Gm Granules, 1 DOSE TOP DAILY@1700, #1 [place]-3 Fatty Acids/Fish Oil (Fish Oil 1,000 mg Capsule) 1 Each Capsule, 1 CAP PO DAILY, (Reported) Pantoprazole Sodium (Pantoprazole Sodium) 40 Mg Tablet.dr, 40 MG PO BID, #1 Paroxetine HCl (Paroxetine HCl) 20 Mg Tablet, 20 MG PO DAILY, #1 Prednisone (Prednisone) 5 Mg Tab, 5 MG PO QAM, (Reported) Prednisone (Prednisone) 2.5 Mg Tablet, 2.5 MG PO QPM, (Reported) Prednisone (Prednisone) 5 Mg Tablet, 5 MG PO DAILY, #1 Prednisone (Prednisone) 2.5 Mg Tablet, 2.5 MG PO QPM, #1 Ropinirole HCl (Ropinirole HCl) 0.25 Mg Tablet, 0.25 MG PO QHS, (Reported) Ropinirole HCl (Requip) 0.25 Mg Tablet, 0.25 MG PO QHS, #1 Sucralfate (Sucralfate) 1 Gm Tablet, 1 GM PO AC, #1 Tamsulosin HCl (Flomax) 0.4 Mg Capsule, 0.4 MG PO QHS, #1 Tamsulosin Hcl (Tamsulosin HCl) 0.4 Mg Capsule, 0.4 MG PO QHS, (Reported) Scheduled PRN Acetaminophen (Acetaminophen) 500 Mg Tablet, 1,000 MG PO Q8H PRN for PAIN, (Reported) TAKES WITH TRAMADOL PRN Bismuth Subsalicylate (Pepto-Bismol) 262 Mg/15 Ml Oral.susp, 15 ML PO Q6HP PRN for GI UPSET, #1 Calcium Carbonate (Calcium Carbonate) 200 Mg Tab.chew, 1,000 MG PO Q4HP PRN for HEARTBURN, #1 Docusate Sodium (Dok) 100 Mg Capsule, 100 MG PO BID PRN for constipation., #1 Levalbuterol Hydrochloride (Xopenex Hfa) 15 Gm Hfa.aer.ad, 2 PUFF INH Q6H PRN for SHORTNESS OF BREATH, (Reported) Levalbuterol Hydrochloride (Xopenex Concentrate) 1.25 Mg/0.5 Ml Vial.neb, 1.25 MG INH Q2HP PRN for SOB/WHEEZING, #1 Tramadol HCl (Tramadol HCl) 50 Mg Tablet, 50 MG PO Q12HP PRN for PAIN >6/10, #1 Reena SCHNEIDER [facility] Jun 14, 2020 17:21
[2020-06-14] MEDS: predniSONE 2.5 MG TAB PO SCH (17:26)
--- NOTE | 2020-06-14 21:23 | IPN ---
NEPHROLOGY PROGRESS NOTE DATE: 06/14/2020 SUBJECTIVE: The patient was seen and examined at the bedside today morning. The patient is slightly more awake and alert today as compared with yesterday, however he is still confused. He was started on diuretics yesterday. He is making a good amount of urine. Renal function is also improving. Creatinine has improved to 1.5 today. OBJECTIVE: VITAL SIGNS: Temperature is 97.9 degrees Fahrenheit, blood pressure 111/70, pulse is 120, respiratory rate of 17, saturating 93% on room air. INTAKE AND OUTPUT: Urine output recorded as 3.6 liters yesterday; 1,400 mL so far today since overnight. Weight in the bed scale is not available. PHYSICAL EXAMINATION: GENERAL APPEARANCE: The patient is awake, alert, oriented x2, laying in bed in no apparent distress. HEAD AND NECK: Extraocular muscles intact. Pupils are equally round and reactive to light. Mucous membranes are moist. Neck is supple. There is mildly elevated jugular venous distention and EJ is dilated as well. CARDIOVASCULAR: S1, S2. EXTREMITIES: 1+ edema of the right lower extremity. RESPIRATORY: Chest is clear to auscultation bilaterally. Bilaterally currently no rales or rhonchi. ABDOMEN: Soft. Abdominal wall edema was noted. GENITOURINARY: He has an indwelling Morris catheter. MUSCULOSKELETAL: He has a left above knee amputation and right lower extremity has edema. COUNSELING CENTER DIRECTOR: No focal deficits. He moves bilateral upper extremities and he follows commands. LAB REVIEW: CBC showed a WBC of 24.4, hemoglobin is 8.7, platelet count 237. BMP showed sodium 141, potassium 3.7, chloride 107, bicarbonate 29, BUN 34, creatinine is 1.5. It was 1.89 yesterday. Calcium 7.9. Magnesium is 1.7. C-reactive protein is 7.5. CURRENT INPATIENT MEDICATIONS: The patient's medications were all reviewed by myself. He is getting IV Zosyn. He is also on IV Vancomycin according to levels. He was started on Lasix 40 mg IV twice daily and potassium 40 mEq p.o. daily. ASSESSMENT AND PLAN: 1. Acute non-oliguric renal failure - The patient was started on IV diuretics. He is diuresing well and renal function continues to improve. Creatinine has improved to 1.5. Continue daily diuretic dose. 2. Decompensated congestive heart failure volume status is getting better now. He made treatment 3.6 liters urine yesterday. 3. Staph epi urinary tract infection - The patient is on IV Vancomycin. The dose is being adjusted by pharmacy. 4. Hypernatremia it has resolved with IV d5w. 5. Atrial fibrillation he is currently on Atenolol, Amiodarone and Cardizem. Anticoagulation is being done with Eliquis.
--- NOTE | 2020-06-14 21:43 | IPNPDOC ---
Date Seen The patient was seen on 06/14/20. Progress Note SUBJECTIVE: 84 yo M, with a hx of COPD, PVD, CKD, BPH, GERD, peripheral neuropathy, gastroparesis, was received rehab at [facility], but was transfered to medical floor for acute L lower ischemia. Patient underwent and EGD and colonscopy on 06/07/20 due to anemia, prior to a L AKA by Dr. Hodges on 06/09/20. Patient was seen and examined at bedside. Overnight reported by RN. The patient had not slept. This morning he appears to be more somnolent, opening eyes only to his name. He does not engage in conversation, does not answer any questions. Heart rate noted to be 120. EKG showing ventricular paced rhythm. OBJECTIVE PHYSICAL EXAMINATION: VITAL SIGNS: please see below General: Somnolent, opening eyes only to his name being called loudly. Nonverbal otherwise HEENT: PERRLA Neck: supple, normal ROM, no JVD Respiratory: lungs CTAB, no wheeze, no rales, no crackles CVS: elevated HR, normal S1, S2, no murmurs Abdo: soft, no masses, no hepatosplenomegaly, BS+, no rebound tenderness Extremities: Left above-knee amputation, right lower extremity 1+ pitting edema. MSK: no joint deformities, normal ROM Neuro: Altered open his eyes only to verbal stimuli. LABORATORY DATA, IMAGING STUDIES, MICROBIOLOGY: Please see below. DVT prophylaxis ordered?: Eliquis. 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 AMS possible 2/2 sepsis - in setting of leukocytosis 2/2 possible HAP, s/p L AKA - concern for metabolic encephalopathy - obtain CT head stat to r/o hemorrhage, as recently resumed on eliquis - repeat CBC, CMP, LA, trop, ammonia - EKG showing ventricular paced rhythm - ongoing treatment with vanco and zosyn Leukocytosis - possibly 2/2 PNA - concern for HAP as patient had slight cough - Remains hemodynamically stable and afebrile - WBC improving slightly, peak 30.8 on 06/12, down to 21.7. - CRP rising - repeat procal, continue to trend - MRSA negative - Blood cultures 06/07: Negative at 5 days - c/w Zosyn (Day #7); Vancomycin - will check legionella, strep ag, mycoplasma IgG and IgM - repeat CXR in a, - ID on consultation; appreciate their input PVD s/p Bilateral common iliac artery stent (05/24/2020) - c/w ASA 81 and Eliquis - Vascular surgery on consultation; appreciate their input Acute Kidney Injury - Review of medical record; Cr ranges from 1-1.5 - marked edema of hips, lower abo - BNP elevated - pending echo; concern for cardiorenal syndrome - received 1 dose IV lasix this am per nephrology - started D5W with 20 mwq KCl at 100 cc/hr - Nephrology on consult; appreciate their input Anemia 2/2 GI bleed - Hg decreased down to 7.7 - s/p EGD (found gastritis) and Colonoscopy (found polyps, diverticulosis, ulcer in rectum, internal/external hemorrhoids) with Dr. Obrien on 06/07 - c/w Carafate and Protonix - transfuse 1 unit pRBC in setting of acute illness Chronic Atrial Fibrillation - c/w Amiodarone / Diltiazem / Atenolol - s/p Watchman procedure; still on an anticoagulant due to his PAD and recent stents Urinary retention with BPH - Patient required straight cath on 06/12 - c/w Tamsulosin and Finasteride Rectal Ulcer - c/w Hydrocortisone topical x 2 weeks COPD with chronic hypoxic respiratory failure on 2L NC - Patient has been on 2 L nasal cannula as an outpatient. However, not appear to require any while inpatient - Family and patient continued to request oxygen in place - advised of risks - Will need outpatient follow up with Pulmonology for PFTs Chronic Steroid Use - As per granddaughter, patient takes this for pain control - Has been resumed (06/10) - c/w Prednisone DLP - c/w Atorvastatin Chronic pain - c/w Gabapentin / Prednisone - c/w Tramadol - s/p Morphine Protein Calorie Malnutrition - Poor oral intake with history of gastroparesis - Continue with encouragement and Ensure supplementation - c/w Pepto-Bismol alone for nausea Debility - c/w PT and OT Lewy Body Dementia - Has had intermittent hallucinations - Will avoid anti-emetics - c/w Ropinirole and Paroxetine DVT prophylaxis - c/w full anticoagulation with Eliquis Dispo: pending clinical improvement. I spoke to the patient's granddaughter and healthcare proxy Amalia Posada at [phone]. I answered all questions in detail. We discussed a palliative care consult, to assist in management of symptomatology and anorexia. She agrees, consult was placed. I provided her with my direct contact number for any questions or concerns. VS, I&O, [facility] Vital Signs/I&O Vital Signs Date Time Temp Pulse Resp B/P (MAP) Pulse Ox O2 Delivery O2 Flow Rate FiO2 06/14/20 14:00 97.9 120 17 111/70 (84) 93 Room Air 06/14/20 09:00 2.0 I&O- Last 24 Hours up to 6 AM 06/14/20 05:59 Intake Total 3040 ml Output Total 3600 ml Balance -560 ml Laboratory Data 24H LABS Laboratory Tests 2 06/14/20 07:50: Immature Granulocyte % (Auto) , Neutrophils (%) (Auto) , Nucleated Red Blood Cells % (auto) 0.0, Neutrophils 87H, Lymphocytes (Manual) 5L, Monocytes (Manual) 8H, Red Blood Cell Morphology NORMAL, Platelet Estimate NORMAL, Anion Gap 5L, Glomerular Filtration Rate 46.6, Calcium Level 7.9L, Magnesium Level 1.7L, Total Bilirubin 0.4, Aspartate Amino Transf (AST/SGOT) 18, Alanine Aminotransferase (A LT/SGPT) 19, Alkaline Phosphatase 217H, C-Reactive Protein, Quantitative 7.51H, Total Protein 5.1L, Albumin 1.7L, Albumin/Globulin Ratio 0.5 06/14/20 15:46: Vancomycin Level Trough 22.8H CBC/BMP Laboratory Tests 06/14/20 07:50 Microbiology Microbiology 06/07/20 Urine Culture - Final, Complete Staphylococcus Epidermidis 06/07/20 Blood Culture - Final, Complete NO GROWTH AFTER 5 DAYS 06/07/20 Blood Culture - Final, Complete NO GROWTH AFTER 5 DAYS 06/07/20 Stool Occult Blood (PEG) - Final, Complete SUHAIL CALDERON MD Jun 14, 2020 21:43
[2020-06-14 22:00] VITALS: BP 110/71
[2020-06-14] MEDS: rOPINIRole 0.25 MG TAB(REQUIP) PO SCH (22:22)
[2020-06-14] MEDS: TAMSULOSIN 0.4 MG CAP PO SCH (22:22)
[2020-06-14] MEDS: MAG SULF 1GM/100ML (MAG RUN) 1 GM in IV 1 EA IV SCH ×2 (22:23→23:53)
[2020-06-14] MEDS: ANUSOL HC 25MG SUPP PR SCH (22:25)
--- NOTE | 2020-06-15 02:59 | REPVR ---
PROCEDURE INFORMATION: Exam: XR Chest Exam date and time: 06/14/2020 10:38 PM Age: 84 years old Clinical indication: Other: Pneumonia; Additional info: Pneumonia, persistent leukocytosis TECHNIQUE: Imaging protocol: XR of the chest Views: 1 view. COMPARISON: [facility] PORTABLE CHEST X-RAY 06/11/2020 9:27 AM FINDINGS: Tubes, catheters and devices: Right PICC line is present, with its tip positioned over the SVC. Lungs: Degree of lung inflation is normal. Mild developing interstitial change at the lung bases. No focal consolidation or parenchymal lung mass. Pleural spaces: Small pleural effusions blunt the costophrenic angles. No pneumothorax.. Heart/Mediastinum: Cardiac silhouette appears prominent in size, with pacemaker. No adenopathy or hilar mass. Bones/joints: Osseous structures show no concerning abnormality. IMPRESSION: 1. Small pleural effusions and slightly increasing interstitial change which may reflect mild pulmonary edema. Right basilar pneumonia underlying this is a consideration. 2. Placement of right PICC line to the cavoatrial junction level Electronically signed by: Jd Ann On 06/15/2020 02:59:14 AM
[2020-06-15] MEDS: PIPERACILLIN/TAZOBACTAM SOD 3.375 GM in D5W MINI-BAG PLUS 50 ML IV SCH ×5 (04:13→22:26)
[2020-06-15] MEDS: SODIUM CHLORIDE 0.9% INJ 10 ML SYR IV SCH ×2 (05:53→17:30)
[2020-06-15 06:00] VITALS: BP 116/68
[2020-06-15 06:36] LABS: HEMATOCRIT 25.6 % (42.0-52.0); HEMOGLOBIN 8.2 g/dl (13.5-17.5); MEAN CORPUSCULAR VOLUME 93.8 fl (80.0-96.0); PLATELET COUNT, AUTOMATED 241 10^3/uL (150-450); RED BLOOD COUNT 2.73 10^6/uL (4.30-6.10)
[2020-06-15 06:37] LABS: WHITE BLOOD COUNT 20.3 10^3/uL (4.0-10.0)
[2020-06-15 06:59] LABS: CALCIUM LEVEL 7.7 MG/DL (8.8-10.2); CREATININE FOR GFR 1.37 MG/DL (0.70-1.30); GLOMERULAR FILTRATION RATE 52.6 (>35); HYPOCHROMASIA 2+; LYMPHOCYTES 4 % (16-44); METAMYELOCYTES 3 % (0-0); MONOCYTES 7 % (0-5); MYELOCYTES 1 % (0-0); NEUTROPHILS 82 % (28-66); POTASSIUM SERUM 3.7 MEQ/L (3.5-5.1)
[2020-06-15 07:00] LABS: ALBUMIN 1.7 GM/DL (3.2-5.2); BILIRUBIN,TOTAL 0.4 MG/DL (0.2-1.0); C REACTIVE PROTEIN QUANTITATIV 4.84 MG/DL (0.00-0.30); MAGNESIUM LEVEL 1.9 MG/DL (1.8-2.4); PLATELET ESTIMATE NORMAL (NORMAL); TOTAL PROTEIN 4.5 GM/DL (6.4-8.2); VANCOMYCIN RANDOM 17.4 UG/ML
--- NOTE | 2020-06-15 07:57 | IPNPDOC ---
Date Seen The patient was seen on 06/15/20. Progress Note Patient seen and examined now postop day 6 status post left above-knee amputation. He is more alert again today, and eating a good part of his breakfast with help from [employer]. He is still confused, oriented to person but not place or time. Seeing children in his room- but realizes this may be a lanette lucination. It is difficult to gauge with this patient whether or not he is making progress or regressing, because his mental status and medical comorbidities tend to wax and wane considerably from day-to-day. Palliative care consult was ordered to provide additional assistance for supportive care. I think this is appropriate. The patient's prognosis is still unclear to me, although overall I think it is fairly poor. His acute on chronic protein malnutrition has proven very challenging for wound healing, along with baseline poor tissue quality, peripheral vascular disease, neuropathy, chronic steroid use. His white blood cell count is still elevated 20, likely multifactorial due to possible conversion left lower lobe atelectasis the left lower lobe pneumonia, peripheral ischemia lower extremities, UTI, chronic steroid use. His anemia is persistent, hemoglobin 7-8, with etiology likely chronic disease, renal insufficiency, gastritis, frequent blood draws, bleeding from his left upper extremity and IV sites intermittently per the nurse. His acute on chronic renal insufficiency, thought to be cardiorenal with CHF, still waxing and waning but showing improvement back to his baseline GFR and Cr. Although he looks a little brighter today and is more interactive, most days he seems fairly depressed, sometimes noncommunicative, delirious, and appears to have failure to thrive. It is going to be a struggle to move through all of this towards a meaningful recovery, especially since the pressure ulcer on the right heel is progressing despite offloading and careful wound care, and is starting to look similar to the ulcer on the left heel. He moves around in the bed and it is difficult to proevent pressure. His offload boot is frequently askew. There are often rolls of blanket or pads under his extremities from his movement in the bed, and something as minimal as a wrinkle is enough to cause a pressure ulcer on such a tenuous patient. The patient was not at high risk for limb loss with his severe peripheral vascular disease while his skin and tissue were intact, but with pre ssure wounds or open ulcers, he is high risk for limb loss due to severe microvascular occlusions at the distal tibials and pedal vessels. Even attempting a second revascularization of the right lower extremity more proximally would likely not greatly impact the healing of the foot, which requires outflow at the distal tibial and pedal vessels. He is now at risk for a right lower extremity amputation, and does not have sufficient blood flow to heal a below-knee amputation. If he becomes a bilateral above-knee amputee, his prognosis will be even worse. On exam today, the left AKA incision is clean dry and intact. Minimal serosanguineous drainage noted. Edema is significantly diminished today. However, the small purple area a few centimeters proximal to the incision on the posterior stump noted yesterday is a bit bigger today. This may be from pressure, it may be a small bruise, but it is concerning. His healing is already so tenuous for the reasons discussed above, and any detrimental changes are quite worrisome. We will continue to follow this carefully. We will try very hard to make sure there is no extra pressure in the area. I do his dressing changes very carefully to avoid creating any pressure areas with the wrap. The incision was cleaned and dried. Xeroform, fluffs, kerlix, Ok wrap were replaced. The patient tolerated this well today with minimal pain or discomfort. We will continue to follow. We appreciate the opportunity to participate in the care of this patient. VS, I&O, 24H, Fishbone Vital Signs/I&O Vital Signs Date Time Temp Pulse Resp B/P (MAP) Pulse Ox O2 Delivery O2 Flow Rate FiO2 06/15/20 06:00 98.0 104 18 116/68 (84) 98 Nasal Cannula 2.0 I&O- Last 24 Hours up to 6 AM 06/15/20 06:00 Intake Total 1470 ml Output Total 2400 ml Balance -930 ml Laboratory Data 24H LABS Laboratory Tests 2 06/14/20 15:46: Vancomycin Level Trough 22.8H 06/15/20 01:57: 06/15/20 05:50: Immature Granulocyte % (Auto) , Neutrophils (%) (Auto) , Nucleated Red Blood Cells % (auto) 0.0, Neutrophils 82H, Band Neutrophils 3, Lymphocytes (Manual) 4L, Monocytes (Manual) 7H, Metamyelocytes 3H, Myelocytes 1H, Hypochromasia 2+, Platelet Estimate NORMAL, Anion Gap 4L, Glomerular Filtration Rate 52.6, Calcium Level 7.7L, Magnesium Level 1.9, Total Bilirubin 0.4, Aspartate Amino Transf (AST/SGOT) 16, Alanine Aminotransferase (ALT/SGPT) 21, Alkaline Phosphatase 231H, C-Reactive Protein, Quantitative 4.84H, Total Protein 4.5L, Albumin 1.7L, Albumin/Globulin Ratio 0.6, Random Vancomycin Level 17.4 CBC/BMP Laboratory Tests 06/15/20 05:50 Microbiology Microbiology 06/07/20 Urine Culture - Final, Complete Staphylococcus Epidermidis 06/07/20 Blood Culture - Final, Complete NO GROWTH AFTER 5 DAYS 06/07/20 Blood Culture - Final, Complete NO GROWTH AFTER 5 DAYS 06/07/20 Stool Occult Blood (PEG) - Final, Complete ELOINA MIJARES MD Jun 15, 2020 07:57
[2020-06-15] MEDS: SYMBICORT 160/4.5MCG INHALER 6GM INH SCH ×2 (08:10→19:40)
[2020-06-15] MEDS: SUCRALFATE 1 GM TAB PO SCH ×3 (08:32→17:24)
[2020-06-15] MEDS: POTASSIUM CHLORIDE 10% LIQ 20 MEQ/15 ML UDC PO SCH (08:32)
[2020-06-15] MEDS: FINASTERIDE 5 MG TAB PO SCH (08:32)
[2020-06-15] MEDS: FUROSEMIDE 40MG/4ML VIAL (J1940) IV SCH (08:37)
[2020-06-15] MEDS: ATORVASTATIN 20 MG TAB PO SCH (08:37)
[2020-06-15] MEDS: GABAPENTIN 100 MG CAP PO SCH ×3 (08:37→22:23)
[2020-06-15] MEDS: AMIODARONE 200 MG TAB (PACERONE) PO SCH (08:38)
[2020-06-15] MEDS: atenoloL 25 MG TAB PO SCH ×2 (08:39→22:25)
[2020-06-15] MEDS: predniSONE 5 MG TAB PO SCH (08:39)
[2020-06-15] MEDS: ASPIRIN 81MG ENTERIC TABLET PO SCH (08:39)
[2020-06-15] MEDS: APIXABAN 2.5 MG TAB (ELIQUIS) PO SCH ×2 (08:39→22:24)
[2020-06-15] MEDS: PANTOPRAZOLE 40MG TAB (PROTONIX) PO SCH ×2 (08:39→22:24)
[2020-06-15] MEDS: PARoxetine 20MG TABLET PO SCH (08:40)
[2020-06-15] MEDS: SODIUM CHLORIDE 0.9% INJ 10 ML SYR IV PRN (08:43)
[2020-06-15] MEDS ORDERED: VANCOMYCIN HCL 500 MG in D5W MINI-BAG PLUS 100 ML IV ONE (13:00)
[2020-06-15 14:00] VITALS: BP 112/70
[2020-06-15] MEDS ORDERED: LIDOCAINE 1% MDV 20ML VIAL As Ordered ONE (14:53)
--- NOTE | 2020-06-15 17:00 | REP ---
INDICATION: R arm picc fell out. COMPARISON: None. TECHNIQUE: The procedure was performed under the direct supervision of Dr. El. The risks and benefits of the procedure were explained and informed consent was obtained by the healthcare proxy. The right basilic vein was localized using ultrasound guidance. The skin was prepped and draped in a sterile fashion. 2% lidocaine was used as a local anesthetic. Using ultrasound guidance the basilic vein was cannulated and a 0.018 guidewire was inserted and advanced to the SVC using fluoroscopic guidance. The needle was removed and a 5.5 Bengali dilator and peel-away sheath was inserted over the guide wire. A 5.5 Bengali dual lumen catheter was cut to length of 41 cm. The dilator was removed and the catheter was inserted over the guide wire with the tip ending in the SVC. The peel-away sheath was removed and the catheter was flushed with heparinized saline as per Hospital protocol. The catheter was affixed to the skin and a sterile dressing was applied. The patient tolerated the procedure well and there were no immediate complications. 0.2 minutes of fluoro time was utilized for this procedure. FINDINGS: None IMPRESSION: PICC line insertion right basilic vein with the tip ending in the SVC. <Electronically signed by Lele Leung > 06/15/20 1627 <Electronically signed by Mike El > 06/15/20 1352
[2020-06-15] MEDS: predniSONE 2.5 MG TAB PO SCH (17:24)
--- NOTE | 2020-06-15 19:26 | IPNPDOC ---
Date Seen The patient was seen on 06/15/20. Progress Note SUBJECTIVE: 84 yo M, with a hx of COPD, PVD, CKD, BPH, GERD, peripheral neuropathy, gastroparesis, was received rehab at [facility], but was transfered to medical floor for acute L lower ischemia. Patient underwent and EGD and colonscopy on 06/07/20 due to anemia, prior to a L AKA by Dr. Hodges on 06/09/20. Patient was seen and examined at bedside. He appears alert and oriented to self and place this morning. He is pleasant and cooperative. Found to have PICC dislodged with bleeding from site onto linens. Controlled with pressure gauze. Denies CP, SOB, n/v/d, fevers and chills. Repeat order for PICC placed. OBJECTIVE PHYSICAL EXAMINATION: VITAL SIGNS: please see below General: Somnolent, opening eyes only to his name being called loudly. Nonverbal otherwise HEENT: PERRLA Neck: supple, normal ROM, no JVD Respiratory: lungs CTAB, no wheeze, no rales, no crackles CVS: elevated HR, normal S1, S2, no murmurs Abdo: soft, no masses, no hepatosplenomegaly, BS+, no rebound tenderness Extremities: Left above-knee amputation, right lower extremity 1+ pitting edema. L AKA stump: small purple area proximal to incision MSK: no joint deformities, normal ROM Neuro: Altered open his eyes only to verbal stimuli. LABORATORY DATA, IMAGING STUDIES, MICROBIOLOGY: Please see below. CXR (06/14/20): 1. Small pleural effusions and slightly increasing interstitial change which may reflect mild pulmonary edema. Right basilar pneumonia underlying this is a consideration. 2. Placement of right PICC line to the cavoatrial junction level DVT prophylaxis ordered?: Eliquis. 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 Hodges. Prognosis remains uncertain. Poor microvasculature in the R leg and poor nutriotional status are poor prognostic indicator for R foot viability, even if 2nd attempt at revascularization is made more distally - L AKA stump developing possible pressure injury on posterior aspect of stump. - optimize nutritional status to promote healing. AMS possible 2/2 sepsis - in setting of leukocytosis 2/2 possible HAP, s/p L AKA - concern for metabolic encephalopathy - obtain CT head stat to r/o hemorrhage, as recently resumed on eliquis - repeat CBC, CMP, LA, trop, ammonia - EKG showing ventricular paced rhythm - ongoing treatment with vanco and zosyn Leukocytosis - possibly 2/2 PNA - concern for HAP as patient had slight cough - Remains hemodynamically stable and afebrile - WBC improving slightly, peak 30.8 on 06/12, down to 21.7. - procalcitonin remains elevated at 0.37, but trending down - possible R basilar pneumonia seen on CXR on 06/14/20 - MRSA negative - Blood cultures 06/07: Negative at 5 days - c/w Zosyn (Day #7); Vancomycin - will check legionella, strep ag, mycoplasma IgG and IgM - ID on consultation; appreciate their input PVD s/p Bilateral common iliac artery stent (05/24/2020) - c/w ASA 81 and Eliquis - Vascular surgery on consultation; appreciate their input Acute Kidney Injury - Review of medical record; Cr ranges from 1-1.5 - marked edema of hips, lower abo - BNP elevated - 2D echo was done on 06/11/20, showing LVEF 30%, septal segmental WMA. Moderate pulmonary HTN. - lasix prn, management by nephrology - Nephrology on consult; appreciate their input Anemia 2/2 GI bleed - Hg decreased down to 7.7 - s/p EGD (found gastritis) and Colonoscopy (found polyps, diverticulosis, ulcer in rectum, internal/external hemorrhoids) with Dr. Obrien on 06/07 - c/w Carafate and Protonix - transfuse 1 unit pRBC in setting of acute illness Chronic Atrial Fibrillation - c/w Amiodarone / Diltiazem / Atenolol - s/p Watchman procedure; still on an anticoagulant due to his PAD and recent stents Urinary retention with BPH - Patient required straight cath on 06/12 - c/w Tamsulosin and Finasteride Rectal Ulcer - c/w Hydrocortisone topical x 2 weeks COPD with chronic hypoxic respiratory failure on 2L NC - Patient has been on 2 L nasal cannula as an outpatient. However, not appear to require any while inpatient - Family and patient continued to request oxygen in place - advised of risks - Will need outpatient follow up with Pulmonology for PFTs Chronic Steroid Use - As per granddaughter, patient takes this for pain control and has been taking for approximately 4 years - I believe it has had a modest effect on pain control - prednisone dose is 5 mg qam and 2.5 mg qpm. will DC 2.5 mg qpm dose. DLP - c/w Atorvastatin Chronic pain - c/w Gabapentin / Prednisone - c/w Tramadol - s/p Morphine Protein Calorie Malnutrition - Poor oral intake with history of gastroparesis - Continue with encouragement and Ensure supplementation - c/w Pepto-Bismol alone for nausea Debility - c/w PT and OT Lewy Body Dementia - Has had intermittent hallucinations - Will avoid anti-emetics - c/w Ropinirole and Paroxetine DVT prophylaxis - c/w Eliquis 2.5 mg BID Dispo: pending clinical improvement. I spoke to the patient's granddaughter and healthcare proxy Amalia Posada at [phone]. I answered all questions in detail. VS, I&O, 24H, Fishbone Vital Signs/I&O Vital Signs Date Time Temp Pulse Resp B/P (MAP) Pulse Ox O2 Delivery O2 Flow Rate FiO2 06/15/20 14:00 97.4 97 17 112/70 (84) 91 Nasal Cannula 2.0 I&O- Last 24 Hours up to 6 AM 06/15/20 06:00 Intake Total 1470 ml Output Total 2400 ml Balance -930 ml Laboratory Data 24H LABS Laboratory Tests 2 06/15/20 01:57: 06/15/20 05:50: Immature Granulocyte % (Auto) , Neutrophils (%) (Auto) , Nucleated Red Blood Cells % (auto) 0.0, Neutrophils 82H, Band Neutrophils 3, Lymphocytes (Manual) 4L, Monocytes (Manual) 7H, Metamyelocytes 3H, Myelocytes 1H, Hypochromasia 2+, Platelet Estimate NORMAL, Anion Gap 4L, Glomerular Filtration Rate 52.6, Calcium Level 7.7L, Magnesium Level 1.9, Total Bilirubin 0.4, Aspartate Amino Transf (AST/SGOT) 16, Alanine Aminotransferase (ALT/SGPT) 21, Alkaline Phosphatase 231H, C-Reactive Protein, Quantitative 4.84H, Total Protein 4.5L, Albumin 1.7L, Albumin/Globulin Ratio 0.6, Procalcitonin 0.37, Random Vancomycin Level 17.4 CBC/BMP Laboratory Tests 06/15/20 05:50 Microbiology Microbiology 06/07/20 Urine Culture - Final, Complete Staphylococcus Epidermidis 06/07/20 Blood Culture - Final, Complete NO GROWTH AFTER 5 DAYS 06/07/20 Blood Culture - Final, Complete NO GROWTH AFTER 5 DAYS 06/07/20 Stool Occult Blood (PEG) - Final, Complete SUHAIL CALDERON MD Jun 15, 2020 19:26
[2020-06-15 22:00] VITALS: BP 113/72
[2020-06-15] MEDS: rOPINIRole 0.25 MG TAB(REQUIP) PO SCH (22:24)
[2020-06-15] MEDS: TAMSULOSIN 0.4 MG CAP PO SCH (22:24)
[2020-06-15] MEDS: ANUSOL HC 25MG SUPP PR SCH (22:25)
[2020-06-15] MEDS: traMADol 50 MG TAB PO PRN (22:33)
[2020-06-16] VITALS (14 sets, daily range): BP systolic 92–113; BP diastolic 61–75
[2020-06-16] MEDS: PIPERACILLIN/TAZOBACTAM SOD 3.375 GM in D5W MINI-BAG PLUS 50 ML IV SCH ×4 (04:42→21:45)
[2020-06-16] MEDS: SODIUM CHLORIDE 0.9% INJ 10 ML SYR IV SCH ×2 (05:53→17:57)
[2020-06-16 06:28] LABS: HEMOGLOBIN 7.8 g/dl (13.5-17.5); MEAN CORPUSCULAR HEMOGLOBIN 29.2 pg (27.0-33.0); MEAN CORPUSCULAR HGB CONC 31.2 g/dl (32.0-36.5); MEAN CORPUSCULAR VOLUME 93.6 fl (80.0-96.0); PLATELET COUNT, AUTOMATED 233 10^3/uL (150-450); RED BLOOD COUNT 2.67 10^6/uL (4.30-6.10)
[2020-06-16 06:35] LABS: WHITE BLOOD COUNT 19.5 10^3/uL (4.0-10.0)
[2020-06-16 06:54] LABS: ALBUMIN 1.7 GM/DL (3.2-5.2); BILIRUBIN,TOTAL 0.4 MG/DL (0.2-1.0); C REACTIVE PROTEIN QUANTITATIV 4.38 MG/DL (0.00-0.30); CALCIUM LEVEL 7.9 MG/DL (8.8-10.2); CREATININE FOR GFR 1.31 MG/DL (0.70-1.30); GLOMERULAR FILTRATION RATE 55.4 (>35); MAGNESIUM LEVEL 1.7 MG/DL (1.8-2.4); POTASSIUM SERUM 3.7 MEQ/L (3.5-5.1)
[2020-06-16 06:56] LABS: ANISOCYTOSIS 2+; LYMPHOCYTES 6 % (16-44); MONOCYTES 9 % (0-5); MYELOCYTES 1 % (0-0); NEUTROPHILS 84 % (28-66); PLATELET ESTIMATE NORMAL (NORMAL)
[2020-06-16] MEDS: SYMBICORT 160/4.5MCG INHALER 6GM INH SCH ×2 (07:29→19:19)
--- NOTE | 2020-06-16 07:58 | IPNPDOC ---
Date Seen The patient was seen on 06/16/20. Progress Note Patient seen and examined 1 week postop from left above-knee amputation. Although his mental status waxes and wanes, and he is pretty obtunded this morning, later today he will likely be more alert and bright. Yesterday he was very alert but still hallucinating. Some things are moving in the right direction, his renal function continues to improve, and his white blood cell count is starting to trend down. His left AKA incision is clean dry and intact. Minimal sanguinous drainage from the lateral aspect, the incision was thoroughly cleaned. We did still note some bruising to the lateral inferior edge, as well as the purple area on the posterior aspect of the stump seems stable, and it is starting to look more like a bruise then a pressure area. This is good news. This should heal just fine. Xeroform 4 x 4's and Kerlix and Ok wrap were replaced. His right foot is stable. I rearranged his boot again this morning to make sure the pressure was off the heel. I'm not sure what the prognosis for that foot is, but at this point it is stable and I would not recommend urgent intervention. His hemoglobin still drifts, likely multifactorial due to gastritis, frequent blood draws, chronic illness, and using from his left arm IV sites in left stump periodically. But so far, no significant drop in hemoglobin since yesterday. This point, recommend ongoing supportive care and work towards intermediate facility or rehabilitation. From a vascular surgery standpoint, planned for saul to come out 1-2 weeks from today, and sutures to come out 2- 3 weeks from today. We like to take the saul out a week before the sutures. We will continue with daily dressing changes per the nurses. We appreciate the opportunity to participate in the care of this patient. VS, I&O, 24H, Fishbone Vital Signs/I&O Vital Signs Date Time Temp Pulse Resp B/P (MAP) Pulse Ox O2 Delivery O2 Flow Rate FiO2 06/16/20 06:00 97.8 111 18 112/73 (86) 93 Nasal Cannula 2.0 I&O- Last 24 Hours up to 6 AM 06/16/20 05:59 Intake Total 1610 ml Output Total 1650 ml Balance -40 ml Laboratory Data 24H LABS Laboratory Tests 2 06/16/20 05:55: Immature Granulocyte % (Auto) , Neutrophils (%) (Auto) , Nucleated Red Blood Cells % (auto) 0.0, Neutrophils 84H, Lymphocytes (Manual) 6L, Monocytes (Manual) 9H, Myelocytes 1H, Anisocytosis 2+, Platelet Estimate NORMAL, Anion Gap 3L, Glomerular Filtration Rate 55.4, Calcium Level 7.9L, Magnesium Level 1.7L, Total Bilirubin 0.4, Aspartate Amino Transf (AST/SGOT) 10, Alanine Aminotransferase (ALT/SGPT) 17, Alkaline Phosphatase 210H, C-Reactive Protein, Quantitative 4.38H, Total Protein 5.0L, Albumin 1.7L, Albumin/Globulin Ratio 0.5 CBC/BMP Laboratory Tests 06/16/20 05:55 Microbiology Microbiology 06/07/20 Urine Culture - Final, Complete Staphylococcus Epidermidis 06/07/20 Blood Culture - Final, Complete NO GROWTH AFTER 5 DAYS 06/07/20 Blood Culture - Final, Complete NO GROWTH AFTER 5 DAYS 06/07/20 Stool Occult Blood (PEG) - Final, Complete ELOINA MIJARES MD Jun 16, 2020 07:58
[2020-06-16] MEDS ORDERED: FUROSEMIDE 40MG/4ML VIAL (J1940) IV SCH (09:00)
--- NOTE | 2020-06-16 09:12 | IPN ---
PROGRESS NOTE DATE: 06/15/2020 SUBJECTIVE: Patient was seen and examined at the bedside today morning. He is afebrile, hemodynamically stable. He is slightly more awake today as compared with yesterday. He was getting his physical therapy in the morning when I saw him. Renal function continues to improve. Creatinine is down to 1.3. His edema is also getting better, and he is getting intravenous (IV) Lasix now. OBJECTIVE: Vital signs: Temperature is 97.4 degrees Fahrenheit, blood pressure 112/70, pulse is 97, respiratory rate of 17, saturating 91% on nasal cannula at 2 liters. Intake and output: Urine output recorded is 2.1 liters yesterday, 1.5 liters so far today since overnight. Weight in the bed scale not available. PHYSICAL EXAMINATION: GENERAL: Patient is awake, alert, oriented times two, sitting up in bed in no apparent distress. HEAD AND NECK: Extraocular muscles are intact. Pupils equally round and reactive to light. Mucous membranes are moist. Neck is supple. Mildly elevated jugular venous distention (JVD). CARDIOVASCULAR: S1, S2. Edema 2+ of the right lower extremity. RESPIRATORY: Mildly decreased breath sounds at the bases. ABDOMEN: Soft. Positive bowel sounds. Abdominal wall edema was noted. GENITOURINARY: He has an indwelling Morris catheter. MUSCULOSKELETAL: He has a left above-knee amputation. CENTRAL NERVOUS SYSTEM: Patient is awake, alert, oriented times two. He is able to follow commands and moves bilateral upper extremities. LABORATORY REVIEW: CBC showed a WBC of 20.3, hemoglobin 8.2, platelets 241. BMP showed sodium 143, potassium 3.7, chloride 106, bicarbonate 33, BUN 39, creatinine 1.3; it was 1.5 yesterday. Calcium is 7.7, magnesium 1.9. Vancomycin level is 17.4. CURRENT INPATIENT MEDICATIONS: Patient's medications were all reviewed by myself. He continues to be on intravenous (IV) Zosyn. He is also getting IV vancomycin. According to his levels, I have decreased his Lasix dose to 40 mg IV once a day. ASSESSMENT AND PLAN: 1. Acute renal failure superimposed on chronic kidney disease. Patient's renal function is gradually improving. Continue the diuretics; however, dose is being decreased as mentioned below. 2. Decompensated congestive heart failure. Patient's volume status and edema are getting better. Lasix dose has been decreased to 40 mg IV once a day. 3. Atrial fibrillation. Heart rate is controlled with amiodarone, Cardizem, and atenolol. Continue Eliquis at this time. 4. Leukocytosis and pneumonia. Patient is on vancomycin and Zosyn. Leukocytosis is getting better.
--- NOTE | 2020-06-16 09:34 | IPN ---
PROGRESS NOTE DATE: 06/15/2020 SUBJECTIVE: The patient is doing fairly well except that he is a little delirious at times. He responds to questions appropriately, but when I came to the room he was trying to get out of bed to follow somebody up the hill. He has had no fever, chills, or night sweats. No nausea, vomiting, or diarrhea. He is still on the oxygen at 2 liters. He has a mild cough. No obvious shortness of breath. His appetite has been great he is even feeding himself. OBJECTIVE: VITAL SIGNS: Temperature 97.4, pulse 97, respirations 17, blood pressure 112/70, O2 sat 91% on 2 liters nasal cannula. GENERAL APPEARANCE: Alert, oriented, and at times delirious, but responds when asked questions appropriately. He states he is , he lives with his , and that they both had COVID last year. HEART: Normal S1, S2. No murmurs appreciated. Tachycardic. LUNGS: Clear. No wheezes, rales, or rhonchi. Diminished at the bases. ABDOMEN: Soft and nontender. No hepatosplenomegaly. EXTREMITIES: Left [id number] amputation with slight ecchymotic area on the posterior aspect of the stump. Right lower extremity with +1 pitting edema and a pressure ulcer on the heel with purplish discoloration and skin laceration, but no purulence and minimal tenderness. : The patient has a Morris catheter with bleeding that was placed for Is and Os. NEUROLOGIC: Follows commands. Cranial nerves intact. IMAGING DATA: The patient removed his PICC line and new PICC had to be placed in the right basilic vein. LABORATORY DATA: White count is 20.3, hemoglobin 8.2, hematocrit 25.6, platelets 241,000, neutrophils 82%, bands 3%, monocytes 4%. Sodium 143, potassium 3.7, chloride 106, bicarb 33, BUN 39, creatinine 1.37 down from 2.12. Calcium 7.7, magnesium 1.9, AST 16, ALT 21, alkaline phosphatase 231, CRP 4.84 down from 18.5. MEDICATIONS: 1. Zosyn with a start date of 06/07 currently day #8 at 3.375 grams IV q. 6 hours. Would suggest continuing antibiotics for a total of 10 days. 2. Vancomycin currently day #7. IMPRESSION: 1. Hospital-acquired pneumonia on IV Zosyn and vancomycin doing better. Oxygen stable. White count improving. 2. Possible urinary tract infection with Staph epidermidis on IV vancomycin. The patient with urinary retention and therefore, required catheterization on 06/12, and currently has a Morris catheter. 3. Improving leukocytosis. The patient is on chronic steroids for over a year with prednisone 7.5 mg. 4. Peripheral vascular disease with concern of healing of the left stump and worsening decubitus ulcer of the right heel, although to me it looks stable it is concerning to Dr. Hodges. PLAN: Continue IV antibiotics until 06/17, following which this can be discontinued. Procalcitonin has decreased to 0.37. MTDD
[2020-06-16 09:36] LABS: PERCENT SATURATION 22.3 % (19.7-50.0)
[2020-06-16] MEDS: APIXABAN 2.5 MG TAB (ELIQUIS) PO SCH ×2 (09:49→21:44)
[2020-06-16] MEDS: atenoloL 25 MG TAB PO SCH ×2 (09:49→21:45)
[2020-06-16] MEDS: PANTOPRAZOLE 40MG TAB (PROTONIX) PO SCH ×2 (09:49→21:44)
[2020-06-16] MEDS: GABAPENTIN 100 MG CAP PO SCH ×3 (09:49→21:44)
[2020-06-16] MEDS: ASPIRIN 81MG ENTERIC TABLET PO SCH (09:49)
[2020-06-16] MEDS: SUCRALFATE 1 GM TAB PO SCH ×3 (09:49→17:58)
[2020-06-16] MEDS: ATORVASTATIN 20 MG TAB PO SCH (09:49)
[2020-06-16] MEDS: FINASTERIDE 5 MG TAB PO SCH (09:50)
[2020-06-16] MEDS: PARoxetine 20MG TABLET PO SCH (09:50)
[2020-06-16] MEDS: AMIODARONE 200 MG TAB (PACERONE) PO SCH (09:56)
[2020-06-16] MEDS: POTASSIUM CHLORIDE 10% LIQ 20 MEQ/15 ML UDC PO SCH (09:56)
[2020-06-16] MEDS: predniSONE 5 MG TAB PO SCH (09:56)
[2020-06-16 12:59] LABS: VANCOMYCIN RANDOM 18.6 UG/ML
[2020-06-16] MEDS ORDERED: VANCOMYCIN HCL 500 MG in D5W MINI-BAG PLUS 100 ML IV ONE (14:00)
[2020-06-16 14:09] LABS: MYCOPLASMA PNEUMONIAE IgG <100 U/mL (0-99); MYCOPLASMA PNEUMONIAE IgM <770 U/mL (0-769)
--- NOTE | 2020-06-16 14:45 | IPNPDOC ---
Text Note Date of Service The patient was seen on 06/16/20. NOTE SUBJECTIVE: Pete was seen this morning at beside. He was somewhat delirious and lethargic. He answered questions readily, but when asked what he did last night he told the story of how he was at a constitution party with his . He was unable to feed himself this morning and has not yet eaten. He has had no fevers, chills or night sweats. No nausea, vomiting or diarrhea. He is breathing 2L of Oxygen, and reportedly has a mild cough, though he was not actively coughing at time of exam ination. OBJECTIVE: VITALS: See below GENERAL: He is alert, oriented with waxing and waning delirium. He answers questions appropriately at times. He is aware that he lives with his , and that they had COVID last year. HEART: Tachycardic with a regular rhythm. Normal S1 and S2. No murmurs, gallops or rubs are appreciated. LUNGS: Clear to auscultation bilaterally. No wheezing, rales or rhonchi are appreciated. ABDOMEN: Soft, and nontender with no palpable hepatosplenomegaly. EXTREMITIES: Left [id number]-amputation with slight ecchymosis on the posterior aspect of the stump. Right lower extremity with trace pitting edema to above the ankles. There is a pressure ulcer on the heel of the right foot with purple discoloration and skin laceration, with no purulence and minimal tende rness. : The patient has a Morris catheter with bleeding that was placed for Is and Os. NEURO: Follows commands. Cranial nerves intact. LABORATORY DATA: WBC: 19.5, and has been trending down for the last four days, Hm.8, Hct:25, Platelets: 233, Neutrophils: 84%, bands: 3%, monocytes: 9 Na: 144, K: 3.7, Cl: 107, Bicarb: 34, BUN: 39, Cr: 1.31, down from 1.37, Ca: 7.9, M.7 AST: 10, ALT: 17, Alk Phos: 210, CRP: 4.38, trending down MEDICATIONS: 1. Zosyn with a start date of 06/07 currently day #9 at 3.375 grams IV q. 6 hours. Would suggest continuing antibiotics for a total of 10 days, ending on 06/17/2020. 2. Vancomycin currently day #8. IMPRESSION: 1. Hospital-acquired pneumonia treated with IV Zosyn and Vancomycin, with which he has been improving. Oxygen is stable, and white count and C-reactive protein is improving. 2. Possible UTI with Staph. epidermidis, treated with IV vancomycin. The patient had urinary retention and required Morris catheterization on 06/12. 3. Improving Leukocytosis: The patient has been on chronic steroids for over a year with 7.5 mg prednisone. 4. Peripheral vascular disease. There is some concern with the healing of the left stump, and potential worsening decubitus of the R heel, though it appears stable. PLAN: Continue IV Zosyn for one more day, end date 06/17/20. Procalcitonin decreased to 0.37 on 06/15. The Morris catheter will be removed today for a trial of voiding. VS,Fishbone, I+O VS, Fishbone, I+O Laboratory Tests 06/16/20 05:55 Vital Signs Date Time Temp Pulse Resp B/P (MAP) Pulse Ox O2 Delivery O2 Flow Rate FiO2 06/16/20 12:33 97.1 113 17 95/64 94 Nasal Cannula 2.0 I&O- Last 24 Hours up to 6 AM 06/16/20 06:00 Intake Total 1710 ml Output Total 1650 ml Balance 60 ml GME ATTESTATION GME ATTESTATION My faculty preceptor for this patient encounter was physically present during the encounter and was fully available. All aspects of the patient interview, examination, medical decision making process, and medical care plan development were reviewed and approved by the faculty preceptor. The faculty preceptor is aware and concurs with the plan as stated in the body of this note and will attest to such by his/her cosignature. JUANA ADAMS Jun 16, 2020 14:44 Jama Hassan MD Jun 18, 2020 20:09
--- NOTE | 2020-06-16 16:28 | REP ---
INDICATION: Upper abdominal pain COMPARISON: Comparison CT study June 09, 2020.. TECHNIQUE: Helical scanning is acquired in 4 mm axial images were reformatted. Coronal and sagittal MPR images were generated and reviewed. FINDINGS: Preliminary digital reception clerk radiograph demonstrates an unremarkable bowel gas pattern. There is fairly heavy vascular calcification. A pacemaker is noted in the heart. On axial CT images there are bilateral pleural effusions which have increased somewhat in size since the June 09, 2020 study. There is some fluid in bulla lie in the right lower lobe which is a new finding. Similarly, there is new opacification in the right middle lobe at the right lung base. Question infiltrate. No pericardial effusion or abdominal ascites is seen. There is opaque material layering in the dependent portion the gallbladder consistent with small gravel-like stones or sludge. Normal adrenal glands are seen. No abnormality is noted in the pancreas. Kidneys are morphologically intact. No hydronephrosis is seen. Heavy vascular calcification is observed. A Morris catheter is noted in the urinary bladder. Prostate calcifications are seen. Small and large bowel loops are unremarkable in the abdomen and pelvis. No evidence of bowel obstruction, free air, or abnormal fluid collection. IMPRESSION: Heavy vascular calcification again noted. Morris catheter. Unremarkable bowel gas pattern. Bilateral pleural effusions slightly increased from the previous study of June 09, 2020. There is some scratch there are new areas of parenchymal opacity in the right middle lobe and right lower lobe which may reflect inflammatory change. <Electronically signed by Mike El > 06/16/20 [id number]
--- NOTE | 2020-06-16 20:04 | IPN ---
NEPHROLOGY PROGRESS NOTE DATE: 06/16/2020 SUBJECTIVE: The patient was seen and examined at the bedside today morning. He is slightly more obtunded and encephalopathic today. His eyes were closed and he was not able to communicate. The patient was getting his PRBC transfusion when I saw him in the morning. Renal function is stable. Lasix dose was decreased to once a day yesterday. He is making about 2 liters of urine a day. OBJECTIVE: VITAL SIGNS: Temperature is 97.2 degrees Fahrenheit, blood pressure 105/75, pulse is 111, respiratory rate of 18, saturating 94% on nasal cannula at 2 liters. INTAKE AND OUTPUT: Urine output recorded as 2.1 liters yesterday, 1.1 liters so far today since overnight. PHYSICAL EXAMINATION: GENERAL APPEARANCE: The patient is laying in bed, eyes closed, minimally verbal. HEAD AND NECK: Pupils are equally round and reactive to light. Mucous membranes are moist. Neck is supple. He has elevated jugular venous distention. CARDIOVASCULAR: S1, S2, regular rate. EXTREMITIES: 2+ edema of the bilateral lower extremities. RESPIRATORY: Mildly decreased breath sounds at the bases. Otherwise no active rales or rhonchi. ABDOMEN: Soft, moderate tenderness to deep palpation in the epigastrium. GENITOURINARY: He has an indwelling Morris catheter. MUSCULOSKELETAL: He has a left above the knee amputation. 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 LAB REVIEW: CBC showed a WBC of 19.5, hemoglobin 7.8, platelet count 233. BMP showed sodium of 144, potassium 3.7, chloride 107, bicarbonate 34, BUN 39, creatinine is 1.3. It was 1.3 yesterday as well. Magnesium 1.7, iron is 35, transferrin saturation 22.3, ferratin 1,105. C-reactive protein is 4.3. CURRENT INPATIENT MEDICATIONS: The patient's current inpatient medications were all reviewed by myself. He continues to be on IV Vancomycin and Zosyn. I have increased the Lasix dose to 40 mg IV twice daily. Prednisone has been changed to 5 mg p.o. daily. ASSESSMENT AND PLAN: 1. Acute renal failure superimposed on chronic kidney disease - renal function is gradually improving. Creatinine has improved to 1.3. Continue the Lasix. At this time dose has been increased because of persistent edema. 2. Decompensated congestive heart failure - The patient still has bilateral small pleural effusions on the CAT scan of the abdomen. Lasix dose has been increased now to twice daily. Continue to monitor intake and output. 3. Pneumonia and leukocytosis - The patient is on Vancomycin and Zosyn. Antibiotic to be stopped on June 17 as recommended by Infectious Disease. 4. Atrial fibrillation - The patient is currently on Amiodarone, Cardizem and Atenolol for heart rate control. He is anticoagulated with Eliquis. 5. Anemia - The patient's hemoglobin has dropped to 7.8. He is being given one unit of PRBC transfusion. 6. Pain upper abdomen - The patient got a CAT scan done which did not show any acute pathology except extensive calcification. Lipase is normal. There is no evidence of acute pancreatitis.
[2020-06-16] MEDS: TAMSULOSIN 0.4 MG CAP PO SCH (21:44)
[2020-06-16] MEDS: rOPINIRole 0.25 MG TAB(REQUIP) PO SCH (21:44)
[2020-06-16] MEDS: ANUSOL HC 25MG SUPP PR SCH (21:45)
[2020-06-16] MEDS: FUROSEMIDE 40MG/4ML VIAL (J1940) IV SCH (21:46)
--- NOTE | 2020-06-16 23:45 | IPNPDOC ---
Date Seen The patient was seen on 06/16/20. Progress Note SUBJECTIVE: 84 yo M, with a hx of COPD, PVD, CKD, BPH, GERD, peripheral neuropathy, gastroparesis, was received rehab at [facility], but was transfered to medical floor for acute L lower ischemia. Patient underwent and EGD and colonscopy on 06/07/20 due to anemia, prior to a L AKA by Dr. Hodges on 06/09/20. Patient was seen and examined at bedside. He appears alert and oriented to self and place this morning. He is pleasant and cooperative. Found to have PICC dislodged with bleeding from site onto linens. Controlled with pressure gauze. Denies CP, SOB, n/v/d, fevers and chills. Repeat order for PICC placed. OBJECTIVE PHYSICAL EXAMINATION: VITAL SIGNS: please see below General: Somnolent, opening eyes only to his name being called loudly. Nonverbal otherwise HEENT: PERRLA Neck: supple, normal ROM, no JVD Respiratory: lungs CTAB, no wheeze, no rales, no crackles CVS: elevated HR, normal S1, S2, no murmurs Abdo: soft, no masses, no hepatosplenomegaly, BS+, no rebound tenderness Extremities: Left above-knee amputation, right lower extremity 1+ pitting edema. L AKA stump: small purple area proximal to incision MSK: no joint deformities, normal ROM Neuro: Altered open his eyes only to verbal stimuli. LABORATORY DATA, IMAGING STUDIES, MICROBIOLOGY: Please see below. CXR (06/14/20): 1. Small pleural effusions and slightly increasing interstitial change which may reflect mild pulmonary edema. Right basilar pneumonia underlying this is a consideration. 2. Placement of right PICC line to the cavoatrial junction level DVT prophylaxis ordered?: Eliquis. 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 Hodges. Prognosis remains uncertain. Poor microvasculature in the R leg and poor nutriotional status are poor prognostic indicator for R foot viability, even if 2nd attempt at revascularization is made more distally - L AKA stump developing possible pressure injury on posterior aspect of stump. - optimize nutritional status to promote healing. AMS possible 2/2 sepsis - in setting of leukocytosis 2/2 possible HAP, s/p L AKA - concern for metabolic encephalopathy - obtain CT head stat to r/o hemorrhage, as recently resumed on eliquis - repeat CBC, CMP, LA, trop, ammonia - EKG showing ventricular paced rhythm - ongoing treatment with vanco and zosyn Leukocytosis - possibly 2/2 PNA - concern for HAP as patient had slight cough - Remains hemodynamically stable and afebrile - WBC improving slightly, peak 30.8 on 06/12, down to 21.7. - procalcitonin remains elevated at 0.37, but trending down - possible R basilar pneumonia seen on CXR on 06/14/20 - MRSA negative - Blood cultures 06/07: Negative at 5 days - c/w Zosyn (Day #7); Vancomycin - will check legionella, strep ag, mycoplasma IgG and IgM - ID on consultation; appreciate their input PVD s/p Bilateral common iliac artery stent (05/24/2020) - c/w ASA 81 and Eliquis - Vascular surgery on consultation; appreciate their input Acute Kidney Injury - Review of medical record; Cr ranges from 1-1.5 - marked edema of hips, lower abo - BNP elevated - 2D echo was done on 06/11/20, showing LVEF 30%, septal segmental WMA. Moderate pulmonary HTN. - lasix prn, management by nephrology - Nephrology on consult; appreciate their input Anemia 2/2 GI bleed - Hg decreased down to 7.7 - s/p EGD (found gastritis) and Colonoscopy (found polyps, diverticulosis, ulcer in rectum, internal/external hemorrhoids) with Dr. Obrien on 06/07 - c/w Carafate and Protonix - transfuse 1 unit pRBC in setting of acute illness Chronic Atrial Fibrillation - c/w Amiodarone / Diltiazem / Atenolol - s/p Watchman procedure; still on an anticoagulant due to his PAD and recent stents Urinary retention with BPH - Patient required straight cath on 06/12 - c/w Tamsulosin and Finasteride Rectal Ulcer - c/w Hydrocortisone topical x 2 weeks COPD with chronic hypoxic respiratory failure on 2L NC - Patient has been on 2 L nasal cannula as an outpatient. However, not appear to require any while inpatient - Family and patient continued to request oxygen in place - advised of risks - Will need outpatient follow up with Pulmonology for PFTs Chronic Steroid Use - As per granddaughter, patient takes this for pain control and has been taking for approximately 4 years - I believe it has had a modest effect on pain control - prednisone dose is 5 mg qam and 2.5 mg qpm. will DC 2.5 mg qpm dose. DLP - c/w Atorvastatin Chronic pain - c/w Gabapentin / Prednisone - c/w Tramadol - s/p Morphine Protein Calorie Malnutrition - Poor oral intake with history of gastroparesis - Continue with encouragement and Ensure supplementation - c/w Pepto-Bismol alone for nausea Debility - c/w PT and OT Lewy Body Dementia - Has had intermittent hallucinations - Will avoid anti-emetics - c/w Ropinirole and Paroxetine DVT prophylaxis - c/w Eliquis 2.5 mg BID Dispo: pending clinical improvement. I spoke to the patient's granddaughter and healthcare proxy Amalia Posada at [phone]. I answered all questions in detail. VS, I&O, 24H, Fishbone Vital Signs/I&O Vital Signs Date Time Temp Pulse Resp B/P (MAP) Pulse Ox O2 Delivery O2 Flow Rate FiO2 06/16/20 22:00 97.5 115 17 113/68 (83) 92 Nasal Cannula 2.0 I&O- Last 24 Hours up to 6 AM 06/16/20 06:00 Intake Total 1710 ml Output Total 1650 ml Balance 60 ml Laboratory Data 24H LABS Laboratory Tests 2 06/16/20 05:55: Immature Granulocyte % (Auto) , Neutrophils (%) (Auto) , Nucleated Red Blood Cells % (auto) 0.0, Neutrophils 84H, Lymphocytes (Manual) 6L, Monocytes (Manual) 9H, Myelocytes 1H, Anisocytosis 2+, Platelet Estimate NORMAL, Anion Gap 3L, Glomerular Filtration Rate 55.4, Calcium Level 7.9L, Magnesium Level 1.7L, Iron Level 35L, Total Iron Binding Capacity 157L, Transferrin % Saturation 22.3, Ferritin 1105H, Total Bilirubin 0.4, Aspartate Amino Transf (AST/SGOT) 10, Alanine Aminotransferase (ALT/SGPT) 17, Alkaline Phosphatase 210H, C-Reactive Protein, Quantitative 4.38H, Total Protein 5.0L, Albumin 1.7L, Albumin/Globulin Ratio 0.5, Lipase 380, Random Vancomycin Level 18.6 CBC/BMP Laboratory Tests 06/16/20 05:55 Microbiology Microbiology 06/07/20 Urine Culture - Final, Complete Staphylococcus Epidermidis 06/07/20 Blood Culture - Final, Complete NO GROWTH AFTER 5 DAYS 06/07/20 Blood Culture - Final, Complete NO GROWTH AFTER 5 DAYS 06/07/20 Stool Occult Blood (PEG) - Final, Complete SUHAIL CALDERON MD Jun 16, 2020 23:45
[2020-06-17 00:50] LABS: HEMOGLOBIN 10.5 g/dl (13.5-17.5); MEAN CORPUSCULAR HEMOGLOBIN 29.1 pg (27.0-33.0); MEAN CORPUSCULAR HGB CONC 31.8 g/dl (32.0-36.5); MEAN CORPUSCULAR VOLUME 91.4 fl (80.0-96.0); PLATELET COUNT, AUTOMATED 240 10^3/uL (150-450); RED BLOOD COUNT 3.61 10^6/uL (4.30-6.10)
[2020-06-17 00:55] LABS: WHITE BLOOD COUNT 20.7 10^3/uL (4.0-10.0)
[2020-06-17 01:40] LABS: EOSINOPHILS 1 % (0-3); LYMPHOCYTES 5 % (16-44); METAMYELOCYTES 2 % (0-0); MONOCYTES 9 % (0-5); MYELOCYTES 1 % (0-0); NEUTROPHILS 81 % (28-66); PLATELET ESTIMATE NORMAL (NORMAL)
[2020-06-17 01:41] LABS: ANISOCYTOSIS 2+
[2020-06-17] MEDS: PIPERACILLIN/TAZOBACTAM SOD 3.375 GM in D5W MINI-BAG PLUS 50 ML IV SCH ×4 (03:42→21:03)
[2020-06-17] MEDS: SODIUM CHLORIDE 0.9% INJ 10 ML SYR IV SCH ×2 (05:28→17:30)
[2020-06-17 06:00] VITALS: BP 116/79
[2020-06-17 06:30] LABS: HEMATOCRIT 31.6 % (42.0-52.0); HEMOGLOBIN 10.1 g/dl (13.5-17.5); MEAN CORPUSCULAR HEMOGLOBIN 29.2 pg (27.0-33.0); MEAN CORPUSCULAR VOLUME 91.3 fl (80.0-96.0); PLATELET COUNT, AUTOMATED 236 10^3/uL (150-450); RED BLOOD COUNT 3.46 10^6/uL (4.30-6.10)
[2020-06-17 06:36] LABS: WHITE BLOOD COUNT 18.4 10^3/uL (4.0-10.0)
[2020-06-17 06:55] LABS: ALBUMIN 1.7 GM/DL (3.2-5.2); BILIRUBIN,TOTAL 0.4 MG/DL (0.2-1.0); C REACTIVE PROTEIN QUANTITATIV 3.68 MG/DL (0.00-0.30); CALCIUM LEVEL 7.7 MG/DL (8.8-10.2); CREATININE FOR GFR 1.33 MG/DL (0.70-1.30); GLOMERULAR FILTRATION RATE 54.4 (>35); MAGNESIUM LEVEL 1.4 MG/DL (1.8-2.4); POTASSIUM SERUM 3.5 MEQ/L (3.5-5.1); TOTAL PROTEIN 4.6 GM/DL (6.4-8.2)
[2020-06-17 07:09] LABS: LYMPHOCYTES 11 % (16-44); METAMYELOCYTES 3 % (0-0); MONOCYTES 9 % (0-5); MYELOCYTES 4 % (0-0); NEUTROPHILS 73 % (28-66)
[2020-06-17 07:10] LABS: ANISOCYTOSIS 1+; PLATELET ESTIMATE NORMAL (NORMAL); POIKILOCYTOSIS 1+
[2020-06-17 07:11] LABS: OVALOCYTES 1+
[2020-06-17] MEDS: SYMBICORT 160/4.5MCG INHALER 6GM INH SCH ×2 (07:23→19:37)
[2020-06-17] MEDS: SUCRALFATE 1 GM TAB PO SCH ×3 (10:03→17:28)
[2020-06-17] MEDS: POTASSIUM CHLORIDE 10% LIQ 20 MEQ/15 ML UDC PO SCH (10:04)
[2020-06-17] MEDS: PARoxetine 20MG TABLET PO SCH (10:05)
[2020-06-17] MEDS: APIXABAN 2.5 MG TAB (ELIQUIS) PO SCH ×2 (10:05→21:03)
[2020-06-17] MEDS: FUROSEMIDE 40MG/4ML VIAL (J1940) IV SCH ×2 (10:05→17:29)
[2020-06-17] MEDS: GABAPENTIN 100 MG CAP PO SCH ×3 (10:05→21:04)
[2020-06-17] MEDS: PANTOPRAZOLE 40MG TAB (PROTONIX) PO SCH ×2 (10:05→21:04)
[2020-06-17] MEDS: FINASTERIDE 5 MG TAB PO SCH (10:05)
[2020-06-17] MEDS: predniSONE 5 MG TAB PO SCH (10:06)
[2020-06-17] MEDS: AMIODARONE 200 MG TAB (PACERONE) PO SCH (10:06)
[2020-06-17] MEDS: ASPIRIN 81MG ENTERIC TABLET PO SCH (10:06)
[2020-06-17] MEDS: ATORVASTATIN 20 MG TAB PO SCH (10:06)
[2020-06-17] MEDS: atenoloL 25 MG TAB PO SCH ×2 (10:06→21:05)
--- NOTE | 2020-06-17 10:34 | IPNPDOC ---
Date Seen The patient was seen on 06/17/20. Progress Note SUBJECTIVE: 84 yo M, with a hx of COPD, PVD, CKD, BPH, GERD, peripheral neuropathy, gastroparesis, was received rehab at [facility], but was transfered to medical floor for acute L lower ischemia. Patient underwent and EGD and colonscopy on 06/07/20 due to anemia, prior to a L AKA by Dr. Hodges on 06/09/20. C Patient was seen and examined at bedside. Appears to be more confused this morning, but is pleasant and awake. States that [place]. He denies CP, SOB, fevers, chills, n/v/d. R arm oozing blood from a laceration above elbow. Noted blood in the ponce catheter. Per RN, patient pulls on the ponce cath. OBJECTIVE PHYSICAL EXAMINATION: VITAL SIGNS: please see below General:alert and awake, confused HEENT: PERRLA Neck: supple, normal ROM, no JVD Respiratory: lungs CTAB, no wheeze, no rales, no crackles CVS: elevated HR, normal S1, S2, no murmurs Abdo: soft, no masses, no hepatosplenomegaly, BS+, no rebound tenderness Skin: R arm skin tear, just above elbow on lateral surface, oozing blood, dressings damp. L arm foam dressings dry and intact. Extremities: Left above-knee amputation, right lower extremity 1+ pitting edema. L AKA stump: small purple area proximal to incision, evolving, appears to be an evolving bruise, rather than pressure. R heel pressure injury slightly less inflamed. MSK: L AKA. LABORATORY DATA, IMAGING STUDIES, MICROBIOLOGY: Please see below. CT abdo pelvis wo contrast (06/16/20): Heavy vascular calcification again noted. Ponce catheter. Unremarkable bowel gas pattern. Bilateral pleural effusions slightly increased from the previous study of June 09, 2020. There is some scratch there are new areas of parenchymal opaci ty in the right middle lobe and right lower lobe which may reflect inflammatory change. DVT prophylaxis ordered?: Tank. 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 Poor microvasculature in the R leg and poor nutritional status are poor prognostic indicator for R foot viability, even if 2nd attempt at revascularization is made more distally - L AKA stump purplish area on posterior aspect of stump is evolving dennis to a bruise,suspect not a pressure injury - optimize nutritional status to promote healing. Ensure TID. 1:1 feeding. AMS possible 2/2 sepsis vs delirium 2/2 Lewy body dementia - in setting of leukocytosis 2/2 possible HAP as well as Staph epidermis UTI - concern for metabolic encephalopathy - encourage family presence Leukocytosis - possibly 2/2 PNA as well as Staph epidermidis UTI, L AKA - Remains hemodynamically stable and afebrile - WBC improving - MRSA negative - reduced steroid dose to 5 mg daily (has been on chronic therapy for years) - Blood cultures 06/07: Negative at 5 days - DC zosyn, completed 10 days of therapy. DC Vanc, completed 7 days of therapy. - ID on consultation; appreciate their input PVD s/p Bilateral common iliac artery stent (05/24/2020) - c/w ASA 81 and Eliquis - Eliquis at reduced dosage, 2.5 mg BID - ongoing weeping from skin tears, changing dressings daily - Vascular surgery on consultation Acute Kidney Injury - Cr. Markedly improved, 1.33. - Review of medical record; Cr ranges from 1-1.5 - 2D echo was done on 06/11/20, showing LVEF 30%, septal segmental WMA. Moderate pulmonary HTN. - lasix prn, management by nephrology - Nephrology on consult; appreciate their input - DC ponce on 06/17/20 Systolic congestive heart failure - 2D echo was done on 06/11/20, showing LVEF 30%, septal segmental WMA. Moderate pulmonary HTN - currently receiving lasix 40 mg IV BID Anemia possibly 2/2 GIB, numerous skin tears on upper extremities, phlebotomy - Hg decreased down to 7.7 - s/p EGD (found gastritis) and Colonoscopy (found polyps, diverticulosis, ulcer in rectum, internal/external hemorrhoids) with Dr. Obrien on 06/07 - c/w Carafate and Protonix - discussed with Dr. Obrien, no suspicion for GI bleeding s/p EGD and colonscopy - likely anemia 2/2 oozing from skin - transfuse for Hgb < 8. Chronic Atrial Fibrillation - c/w Amiodarone / Diltiazem / Atenolol - s/p Watchman procedure; still on an anticoagulant due to his PAD and recent stents Urinary retention with BPH - Patient required straight cath on 06/12 - c/w Tamsulosin and Finasteride Rectal Ulcer - c/w Hydrocortisone topical x 2 weeks COPD with chronic hypoxic respiratory failure on 2L NC - Patient has been on 2 L nasal cannula as an outpatient. However, not appear to require any while inpatient - Family and patient continued to request oxygen in place - advised of risks - Will need outpatient follow up with Pulmonology for PFTs Chronic Steroid Use - As per granddaughter, patient takes this for pain control and has been taking for approximately 4 years - I believe it has had a modest effect on pain control - prednisone dose is 5 mg qam and 2.5 mg qpm. will DC 2.5 mg qpm dose. DLP - c/w Atorvastatin Chronic pain - c/w Gabapentin / Prednisone - c/w Tramadol - s/p Morphine Protein Calorie Malnutrition - Poor oral intake with history of gastroparesis - Continue with encouragement and Ensure supplementation - c/w Pepto-Bismol alone for nausea Debility - c/w PT and OT Lewy Body Dementia - Has had intermittent hallucinations - Will avoid anti-emetics - c/w Ropinirole and Paroxetine DVT prophylaxis - c/w Eliquis 2.5 mg BID Dispo: pending clinical improvement. I spoke to the patient's son Liam Javed at [phone], and aswered all questions in detail. I attempted to call granddaughter and healthcare proxy Amalia Posada at [phone] but was unable to get through to her phone. VS, I&O, 24H, Fishbone Vital Signs/I&O Vital Signs Date Time Temp Pulse Resp B/P (MAP) Pulse Ox O2 Delivery O2 Flow Rate FiO2 06/17/20 06:00 97.2 113 16 116/79 (91) 94 Nasal Cannula 2.0 I&O- Last 24 Hours up to 6 AM 06/17/20 06:00 Intake Total 3335 ml Output Total 2375 ml Balance 960 ml Laboratory Data 24H LABS Laboratory Tests 2 06/17/20 00:44: Immature Granulocyte % (Auto) , Neutrophils (%) (Auto) , Nucleated Red Blood Cells % (auto) 0.0, Neutrophils 81H, Band Neutrophils 1, Lymphocytes (Manual) 5L, Monocytes (Manual) 9H, Eosinophils (Manual) 1, Metamyelocytes 2H, Myelocytes 1H, Anisocytosis 2+, Platelet Estimate NORMAL 06/17/20 06:07: Immature Granulocyte % (Auto) , Neutrophils (%) (Auto) , Nucleated Red Blood Cells % (auto) 0.0, Neutrophils 73H, Lymphocytes (Manual) 11L, Monocytes (Manual) 9H, Metamyelocytes 3H, Myelocytes 4H, Anisocytosis 1+, Platelet Estimate NORMAL, Poikilocytosis 1+, Ovalocytes 1+, Anion Gap 5L, Glomerular Filtration Rate 54.4, Calcium Level 7.7L, Magnesium Level 1.4L, Total Bilirubin 0.4, Aspartate Amino Transf (AST/SGOT) 15, Alanine Aminotransferase (ALT/SGPT) 19, Alkaline Phosphatase 256H, C-Reactive Protein, Quantitative 3.68H, Total Protein 4.6L, Albumin 1.7L, Albumin/Globulin Ratio 0.6 CBC/BMP Laboratory Tests 06/17/20 00:44 06/17/20 06:07 Microbiology Microbiology 06/07/20 Urine Culture - Final, Complete Staphylococcus Epidermidis 06/07/20 Blood Culture - Final, Complete NO GROWTH AFTER 5 DAYS 06/07/20 Blood Culture - Final, Complete NO GROWTH AFTER 5 DAYS 06/07/20 Stool Occult Blood (PEG) - Final, Complete SUHAIL CALDERON MD Jun 17, 2020 10:34
[2020-06-17] MEDS ORDERED: VANCOMYCIN HCL 500 MG in D5W MINI-BAG PLUS 100 ML IV ONE (11:00)
[2020-06-17 12:16] LABS: BODY FLUID CULTURE Not indicated. (.); LEGIONELLA ANTIGEN URINE Negative (Negative); ORGANISM ID Not indicated. (.); SPECIMEN SOURCE Urine (.); URINE STREP PNEUMONIAE ANTIGEN Negative (Negative)
[2020-06-17 14:00] VITALS: BP 103/69
[2020-06-17 19:20] LABS: HEMATOCRIT 30.8 % (42.0-52.0); HEMOGLOBIN 9.8 g/dl (13.5-17.5); MEAN CORPUSCULAR HEMOGLOBIN 30.1 pg (27.0-33.0); MEAN CORPUSCULAR HGB CONC 31.8 g/dl (32.0-36.5); MEAN CORPUSCULAR VOLUME 94.5 fl (80.0-96.0); PLATELET COUNT, AUTOMATED 233 10^3/uL (150-450); RED BLOOD COUNT 3.26 10^6/uL (4.30-6.10)
[2020-06-17 19:21] LABS: WHITE BLOOD COUNT 18.7 10^3/uL (4.0-10.0)
[2020-06-17 20:01] LABS: ANISOCYTOSIS 1+; ATYPICAL LYMPH 1 % (0-5); HYPOCHROMASIA 1+; LYMPHOCYTES 4 % (16-44); MONOCYTES 16 % (0-5); MYELOCYTES 3 % (0-0); NEUTROPHILS 74 % (28-66); PLATELET ESTIMATE NORMAL (NORMAL)
[2020-06-17] MEDS: rOPINIRole 0.25 MG TAB(REQUIP) PO SCH (21:03)
[2020-06-17] MEDS: TAMSULOSIN 0.4 MG CAP PO SCH (21:03)
[2020-06-17] MEDS: SODIUM CHLORIDE 0.9% INJ 10 ML SYR IV PRN (21:04)
[2020-06-17] MEDS: ANUSOL HC 25MG SUPP PR SCH (21:04)
[2020-06-17] MEDS: PREPARATION H SUPP (HEMORRHOID) PR SCH (21:17)
--- NOTE | 2020-06-17 21:55 | IPN ---
NEPHROLOGY PROGRESS NOTE DATE: 06/17/2020 SUBJECTIVE: The patient was seen and examined at the bedside today morning. He got a CAT scan done yesterday and there was no pathology seen in the abdomen. Renal function is stable. Creatinine is 1.3. He continues to be on I.V. diuretics. Edema is getting better. OBJECTIVE: VITAL SIGNS: Temperature 97.3 degrees Fahrenheit, blood pressure 103/69, pulse 116, respiratory rate 18, saturating 93% on nasal cannula at 2 liters. INTAKE AND OUTPUT: Urine output recorded as 1.8 liters yesterday and 1.5 liters so far today since overnight. Weight in the bed scale is not available. PHYSICAL EXAMINATION: GENERAL: Patient is awake, alert and oriented x2, lying in bed. HEAD AND NECK: Pupils equally round and reactive to light. Mucous membranes are moist. Neck is supple. There is no JVD. CARDIOVASCULAR: S1, S2, regular rate. 2+ edema of the right lower extremity. RESPIRATORY: Chest is clear to auscultation bilaterally. Bilateral equal air entry. No rales or rhonchi. ABDOMEN: Soft, positive bowel sounds. No ascites was noted. GENITOURINARY: He has an indwelling Morris catheter, there is blood tinged urine in the bag. MUSCULOSKELETAL: Left above knee amputation site with a dressing and right lower extremity with edema. 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 LABORATORY REVIEW: CBC showed WBC 18.4, hemoglobin 10.1, platelets 236,000. BMP showed sodium 143, potassium 3.5, chloride 106, bicarb 32, BUN 37, creatinine 1.3; it was 1.3 yesterday as well. Calcium 7.7. Magnesium 1.4. CURRENT INPATIENT MEDICATIONS: Patient's medications were all reviewed by myself. He continues to be on I.V. Vancomycin and Zosyn and today is the last day. Lasix dose is 40 mg I.V. twice a day, which was increased yesterday. ASSESSMENT AND PLAN: 1. Acute renal failure superimposed on chronic kidney disease: Patient's renal function is gradually improving. Creatinine has improved to 1.3. Okay to continue the diuretics at this time. 2. Decompensated congestive heart failure: Patient still has edema in the lower extremities. Continue Lasix 40 mg I.V. twice a day. 3. Pneumonia and leukocytosis: Patient has finished course of Vancomycin and Zosyn as per ID recommendations; today is the last day. 4. Atrial fibrillation: Heart rate is controlled with Amiodarone, Cardizem and Atenolol. Continue Eliquis. 5. Anemia: Patient is status post PRBC transfusion. Hemoglobin is stable at 10.1 today.
[2020-06-17 22:00] VITALS: BP 104/58
[2020-06-18] MEDS: SODIUM CHLORIDE 0.9% INJ 10 ML SYR IV SCH ×2 (05:38→16:38)
[2020-06-18 05:40] LABS: HEMATOCRIT 31.2 % (42.0-52.0); MEAN CORPUSCULAR HEMOGLOBIN 29.7 pg (27.0-33.0); MEAN CORPUSCULAR HGB CONC 32.1 g/dl (32.0-36.5); MEAN CORPUSCULAR VOLUME 92.6 fl (80.0-96.0); PLATELET COUNT, AUTOMATED 236 10^3/uL (150-450); RED BLOOD COUNT 3.37 10^6/uL (4.30-6.10); WHITE BLOOD COUNT 20.5 10^3/uL (4.0-10.0)
[2020-06-18 06:00] VITALS: BP 101/68
[2020-06-18 06:13] LABS: ALBUMIN 1.8 GM/DL (3.2-5.2); BILIRUBIN,TOTAL 0.4 MG/DL (0.2-1.0); C REACTIVE PROTEIN QUANTITATIV 3.1 MG/DL (0.00-0.30); CALCIUM LEVEL 7.6 MG/DL (8.8-10.2); CREATININE FOR GFR 1.3 MG/DL (0.70-1.30); GLOMERULAR FILTRATION RATE 55.9 (>35); MAGNESIUM LEVEL 1.3 MG/DL (1.8-2.4); POTASSIUM SERUM 3.6 MEQ/L (3.5-5.1); TOTAL PROTEIN 4.6 GM/DL (6.4-8.2)
[2020-06-18 06:48] LABS: ATYPICAL LYMPH 2 % (0-5); EOSINOPHILS 1 % (0-3); LYMPHOCYTES 19 % (16-44); METAMYELOCYTES 3 % (0-0); MONOCYTES 6 % (0-5); MYELOCYTES 4 % (0-0); NEUTROPHILS 64 % (28-66); PLATELET ESTIMATE NORMAL (NORMAL)
[2020-06-18 06:49] LABS: ANISOCYTOSIS 1+; MICROCYTOSIS 1+; TOXIC GRANULATION 1+
[2020-06-18] MEDS: SYMBICORT 160/4.5MCG INHALER 6GM INH SCH ×2 (07:39→19:44)
[2020-06-18] MEDS: atenoloL 25 MG TAB PO SCH ×2 (09:00→21:37)
[2020-06-18] MEDS: FUROSEMIDE 40MG/4ML VIAL (J1940) IV SCH (09:00)
[2020-06-18] MEDS: SUCRALFATE 1 GM TAB PO SCH ×4 (09:07→16:38)
[2020-06-18] MEDS: GABAPENTIN 100 MG CAP PO SCH ×3 (09:07→21:35)
[2020-06-18] MEDS: FINASTERIDE 5 MG TAB PO SCH (09:07)
[2020-06-18] MEDS: PARoxetine 20MG TABLET PO SCH (09:08)
[2020-06-18] MEDS: predniSONE 5 MG TAB PO SCH (09:08)
[2020-06-18] MEDS: PANTOPRAZOLE 40MG TAB (PROTONIX) PO SCH ×2 (09:08→21:35)
[2020-06-18] MEDS: APIXABAN 2.5 MG TAB (ELIQUIS) PO SCH ×2 (09:08→21:35)
[2020-06-18] MEDS: ASPIRIN 81MG ENTERIC TABLET PO SCH (09:08)
[2020-06-18] MEDS: POTASSIUM CHLORIDE 10% LIQ 20 MEQ/15 ML UDC PO SCH (09:08)
[2020-06-18] MEDS: ATORVASTATIN 20 MG TAB PO SCH (09:08)
[2020-06-18] MEDS: AMIODARONE 200 MG TAB (PACERONE) PO SCH (09:22)
[2020-06-18] MEDS: PREPARATION H SUPP (HEMORRHOID) PR SCH ×2 (12:22→21:35)
[2020-06-18 14:00] VITALS: BP 114/73
--- NOTE | 2020-06-18 14:15 | IPNPDOC ---
Date Seen The patient was seen on 06/18/20. Progress Note SUBJECTIVE: 84 yo M, with a hx of COPD, PVD, CKD, BPH, GERD, peripheral neuropathy, gastroparesis, was received rehab at [facility], but was transfered to medical floor for acute L lower ischemia. Patient underwent and EGD and colonscopy on 06/07/20 due to anemia, prior to a L AKA by Dr. Hodges on 06/09/20. C Patient was seen and examined at bedside. Overnight, had a bloody BM, with clots, Hgb 9.8, repeat 10.0. No repeat BMs since. He is alert this morning. Ponce was DC on 06/17/20, has been voiding spontaneous. He denies CP, SOB, fevers, chills, n/v/d. R arm oozing blood from a laceration above elbow. Per RN, patient pulls on the ponce cath. R foot is out of the heel float boot. OBJECTIVE PHYSICAL EXAMINATION: VITAL SIGNS: please see below General:alert and awake, confused HEENT: PERRLA Neck: supple, normal ROM, no JVD Respiratory: lungs CTAB, no wheeze, no rales, no crackles CVS: elevated HR, normal S1, S2, no murmurs Abdo: soft, no masses, no hepatosplenomegaly, BS+, no rebound tenderness Skin: R arm skin tear, just above elbow on lateral surface, oozing blood, dressings damp. L arm foam dressings dry and intact. Extremities: Left above-knee amputation, right lower extremity 1+ pitting edema. L AKA stump: small purple area proximal to incision, evolving, appears to be an evolving bruise, rather than pressure. R heel pressure injury slightly less inflamed. MSK: L AKA. LABORATORY DATA, IMAGING STUDIES, MICROBIOLOGY: Please see below. CT abdo pelvis wo contrast (06/16/20): Heavy vascular calcification again noted. Ponce catheter. Unremarkable bowel gas pattern. Bilateral pleural effusions slightly increased from the previous study of June 09, 2020. There is some scratch there are new areas of parenchymal opacity in the right middle lobe and right lower lobe which may reflect inflammatory change. DVT prophylaxis ordered?: Tank. 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 Poor microvasculature in the R leg and poor nutritional status are poor prognostic indicator for R foot viability, even if 2nd attempt at revascularization is made more distally - heel float boot was off this morning, reinforced to replace/reposition boot hourly - L AKA stump purplish area on posterior aspect of stump is evolving dennis to a bruise,suspect not a pressure injury - optimize nutritional status to promote healing. Ensure TID. 1:1 feeding. AMS possible 2/2 sepsis vs delirium 2/2 Lewy body dementia - in setting of leukocytosis 2/2 possible HAP as well as Staph epidermis UTI - concern for metabolic encephalopathy - encourage family presence Leukocytosis - possibly 2/2 PNA as well as Staph epidermidis UTI, L AKA - Remains hemodynamically stable and afebrile - WBC improving - MRSA negative - reduced steroid dose to 5 mg daily (has been on chronic therapy for years) - Blood cultures 06/07: Negative at 5 days - DC zosyn, completed 10 days of therapy. DC Vanc, completed 7 days of therapy. - ID on consultation; appreciate their input PVD s/p Bilateral common iliac artery stent (05/24/2020) - c/w ASA 81 and Eliquis - Eliquis at reduced dosage, 2.5 mg BID - ongoing weeping from skin tears, changing dressings daily - Vascular surgery on consultation Acute Kidney Injury - Cr. Markedly improved, 1.33. - Review of medical record; Cr ranges from 1-1.5 - 2D echo was done on 06/11/20, showing LVEF 30%, septal segmental WMA. Moderate pulmonary HTN. - lasix prn, management by nephrology - Nephrology on consult; appreciate their input - DC ponce on 06/17/20 Systolic congestive heart failure - 2D echo was done on 06/11/20, showing LVEF 30%, septal segmental WMA. Moderate pulmonary HTN - currently receiving lasix 40 mg IV BID Anemia possibly 2/2 GIB, numerous skin tears on upper extremities, phlebotomy - transfused 3 units total - s/p EGD (found gastritis) and Colonoscopy (found polyps, diverticulosis, ulcer in rectum, internal/external hemorrhoids) with Dr. Obrien on 06/07 - c/w Carafate and Protonix - discussed with Dr. Obrien after bloody BM on 06/17/20, will re-eval on 06/19/20. - transfuse for Hgb <8. Preparation H suppositories. Chronic Atrial Fibrillation - c/w Amiodarone / Diltiazem / Atenolol - s/p Watchman procedure; still on an anticoagulant due to his PAD and recent stents Urinary retention with BPH - Patient required straight cath on 06/12 - c/w Tamsulosin and Finasteride Rectal Ulcer - c/w Hydrocortisone topical x 2 weeks COPD with chronic hypoxic respiratory failure on 2L NC - Patient has been on 2 L nasal cannula as an outpatient. However, not appear to require any while inpatient - Family and patient continued to request oxygen in place - advised of risks - Will need outpatient follow up with Pulmonology for PFTs Chronic Steroid Use - As per granddaughter, patient takes this for pain control and has been taking for approximately 4 years - I believe it has had a modest effect on pain control - prednisone dose is 5 mg qam and 2.5 mg qpm. will DC 2.5 mg qpm dose. DLP - c/w Atorvastatin Chronic pain - c/w Gabapentin / Prednisone - c/w Tramadol - s/p Morphine Protein Calorie Malnutrition - Poor oral intake with history of gastroparesis - Continue with encouragement and Ensure supplementation - c/w Pepto-Bismol alone for nausea Debility - c/w PT and OT Lewy Body Dementia - Has had intermittent hallucinations - Will avoid anti-emetics - c/w Ropinirole and Paroxetine DVT prophylaxis - c/w Eliquis 2.5 mg BID Dispo: pending clinical improvement. I spoke to the patient's granddaughter and healthcare proxy Amalia Posada at [phone] and aswered all questions in detail. She is considering options for hospice care. VS, I&O, 24H, Fishbone Vital Signs/I&O Vital Signs Date Time Temp Pulse Resp B/P (MAP) Pulse Ox O2 Delivery O2 Flow Rate FiO2 06/18/20 09:00 116 99/67 06/18/20 08:30 2.0 06/18/20 06:00 97.6 16 92 Nasal Cannula I&O- Last 24 Hours up to 6 AM 06/18/20 05:59 Intake Total 1430 ml Output Total 3325 ml Balance -1895 ml Laboratory Data 24H LABS Laboratory Tests 2 06/17/20 19:00: Immature Granulocyte % (Auto) , Neutrophils (%) (Auto) , Nucleated Red Blood Cells % (auto) 0.0, Neutrophils 74H, Band Neutrophils 2, Lymphocytes (Manual) 4L, Monocytes (Manual) 16H, Myelocytes 3H, Atypical Lymphocytes 1, Hypochromasia 1+, Anisocytosis 1+, Platelet Estimate NORMAL 06/18/20 05:23: Immature Granulocyte % (Auto) , Neutrophils (%) (Auto) , Nucleated Red Blood Cells % (auto) 0.0, Neutrophils 64, Band Neutrophils 1, Lymphocytes (Manual) 19, Monocytes (Manual) 6H, Myelocytes 4H, Atypical Lymphocytes 2, Anisocytosis 1+, Platelet Estimate NORMAL, Eosinophils (Manual) 1, Metamyelocytes 3H, Mi crocytosis 1+, Toxic Granulation 1+, Anion Gap 4L, Glomerular Filtration Rate 55.9, Calcium Level 7.6L, Magnesium Level 1.3L, Total Bilirubin 0.4, Aspartate Amino Transf (AST/SGOT) 18, Alanine Aminotransferase (ALT/SGPT) 18, Alkaline Phosphatase 231H, C-Reactive Protein, Quantitative 3.10H, Total Protein 4.6L, Albumin 1.8L, Albumin/Globulin Ratio 0.6 CBC/BMP Laboratory Tests 06/17/20 19:00 06/18/20 05:23 SUHAIL CALDERON MD Jun 18, 2020 14:15
[2020-06-18] MEDS ORDERED: MAG SULF 1GM/100ML (MAG RUN) 1 GM in IV 1 EA IV ONE (16:00)
--- NOTE | 2020-06-18 17:56 | IPN ---
PROGRESS NOTE DATE: 06/18/2020 SUBJECTIVE: The patient was seen and examined at the bedside today morning. His IV Lasix was held today morning because his blood pressures were soft. He is able to answer a few questions. His renal function is stable. Edema is gradually improving. OBJECTIVE: Vital signs: Temperature is 97.6 degrees Fahrenheit, blood pressure is 101/68, pulse is 110, respiratory rate of 16, saturating 92% on nasal canula at 2 liters. Intake and output: Urine output recorded as 2.9 liters yesterday, 400 ml so far today since overnight. Weight in the bed scale is not able. PHYSICAL EXAMINATION: General: The patient is awake, alert, oriented x2, lying in bed in no apparent distress. Head and neck examination: Extraocular muscles are intact. Pupils equally round and reactive to light. Mucous membranes are moist. Neck is supple. There is no jugular venous distention (JVD). Cardiovascular: S1, S2 regular rate. 1+ edema of the bilateral lower extremities. Respiratory: Mildly decreased breath sounds at the bases, otherwise no active rales or rhonchi. Abdomen: Soft. Positive bowel sounds, nontender. Genitourinary (): He has an indwelling Morris catheter. Musculoskeletal: Left above knee amputation site is covered with a dressing. 1+ edema on the right lower extremity. AESTHETICS INSTRUCTOR: The patient is oriented times 2, otherwise he follows commands and moves extremities. LABORATORY REVIEW: Complete blood count (CBC) showed a WBC of 20.5, hemoglobin is 10, platelets are 236. Basic metabolic panel (BMP) showed sodium 145, potassium 3.6, chloride 105, bicarbonate 36, BUN 32, creatinine is 1.3. Magnesium is 1.3. CURRENT INPATIENT MEDICATIONS: The patient's medications are all reviewed by myself. IV Zosyn has been stopped now. IV Lasix has been stopped by myself. He has been started on torsemide 20 mg by mouth daily starting tomorrow. ASSESSMENT AND PLAN: 1. Acute renal failure superimposed on chronic kidney disease. Creatinine has plateau at 1.3 now. However, he still needs some diuresis because of edema. IV diuretics have been changed to oral diuretics now. 2. Decompensated congestive heart failure. IV Lasix is stopped. Continue torsemide 20 mg by mouth daily; first dose will be given tomorrow morning. 3. Leukocytosis and pneumonia. The patient's vancomycin and Zosyn have been stopped. He still has mild persistent leukocytosis. Management is as per infectious disease recommendation. 4. Atrial fibrillation. Heart rate is controlled with amiodarone, Cardizem and atenolol. 5. Hypomagnesia. The patient will be given a dose of IV magnesium sulfate today.
[2020-06-18] MEDS: rOPINIRole 0.25 MG TAB(REQUIP) PO SCH (21:35)
[2020-06-18] MEDS: ANUSOL HC 25MG SUPP PR SCH (21:35)
[2020-06-18] MEDS: TAMSULOSIN 0.4 MG CAP PO SCH (21:35)
[2020-06-18 22:00] VITALS: BP 107/65
[2020-06-19] MEDS: SODIUM CHLORIDE 0.9% INJ 10 ML SYR IV SCH ×2 (05:26→19:09)
[2020-06-19 06:00] VITALS: BP 112/69
[2020-06-19] MEDS: SYMBICORT 160/4.5MCG INHALER 6GM INH SCH ×2 (07:28→20:00)
[2020-06-19] MEDS: SUCRALFATE 1 GM TAB PO SCH ×4 (07:30→17:30)
--- NOTE | 2020-06-19 09:19 | REP ---
INDICATION: pleural effusions. COMPARISON: Chest CT dated 06/09/2020 and portable chest dated 06/14/2020. TECHNIQUE: Portal AP chest with the patient upright. FINDINGS: There are small bilateral pleural effusions similar to the comparison studies. There is a large infiltrate involving the entire right lung as an interval change. There are mildly coarsened interstitial markings throughout the left lung, unchanged. Cardiac size is normal. Right upper extremity PICC line with the tip in the right atrium in satisfactory position, unchanged. Dual chamber pacemaker entering from the left, unchanged. IMPRESSION: New large infiltrate throughout the entire right lung. Small bilateral pleural effusions, unchanged. <Electronically signed by Judah Singh > 06/19/20 0915
[2020-06-19] MEDS: PREPARATION H SUPP (HEMORRHOID) PR SCH ×3 (11:00→20:55)
[2020-06-19] MEDS: POTASSIUM CHLORIDE 10% LIQ 20 MEQ/15 ML UDC PO SCH ×2 (11:00→11:05)
[2020-06-19] MEDS: ATORVASTATIN 20 MG TAB PO SCH ×2 (11:00→11:03)
[2020-06-19] MEDS: TORSEMIDE 20 MG TAB PO SCH ×2 (11:00→11:04)
[2020-06-19] MEDS: predniSONE 5 MG TAB PO SCH ×2 (11:00→11:05)
[2020-06-19] MEDS: FINASTERIDE 5 MG TAB PO SCH ×2 (11:00→11:06)
[2020-06-19] MEDS: PARoxetine 20MG TABLET PO SCH ×2 (11:00→11:06)
[2020-06-19] MEDS: PANTOPRAZOLE 40MG TAB (PROTONIX) PO SCH ×3 (11:00→20:55)
[2020-06-19 11:02] VITALS: BP 109/72
[2020-06-19] MEDS: ASPIRIN 81MG ENTERIC TABLET PO SCH (11:03)
[2020-06-19] MEDS: APIXABAN 2.5 MG TAB (ELIQUIS) PO SCH ×2 (11:05→20:55)
[2020-06-19] MEDS: AMIODARONE 200 MG TAB (PACERONE) PO SCH (11:05)
[2020-06-19] MEDS: atenoloL 25 MG TAB PO SCH ×2 (11:06→20:56)
[2020-06-19] MEDS: MAGNESIUM OXIDE 400MG TAB (MAG-OX) PO SCH (11:06)
--- NOTE | 2020-06-19 11:42 | IPN ---
PROGRESS NOTE DATE: 06/19/2020 SUBJECTIVE: Pete is seen and examined this morning at the bedside. He is in [facility], he is altered and confused. He is requiring nursing assistance with feeds. He is not able to provide me with any history. I note tremors. OBJECTIVE: VITAL SIGNS: Temperature is 98.9, pulse is 104, respiratory rate 18, blood pressure is 112/69, saturating 90% on 2 liter nasal cannula. INTAKE AND OUTPUT: Intake yesterday was one liter, urine output yesterday was 800. Weight on the bed scale is not recorded. GENERAL: Patient is seen in [facility], belted in, and restrained. Awake but not alert and no oriented, confused. The nurse is assisting him with feeds. He does not make eye contact. Nasal cannula is in place. Tongue is moist. NECK: Supple. Jugular veins are not elevated. HEART: Heart sounds are tachycardic. S1 and S2. There is no edema in the right lower extremity. There is a pacemaker in the left chest wall. LUNGS: Diminished breath sounds at the bases and mostly clear on the left. ABDOMEN: Soft, nontender. EXTREMITIES: Extremities show left above the knee amputation and right lower extremity without edema. NEUROLOGIC: Tremors are noted. Patient is non-conversational. LABORATORY DATA: Labs: White count is 20.5, hemoglobin is 10.9, platelets 236,000, sodium 145, potassium is 3.6, bicarbonate is 36, BUN 32, creatinine 1.3, magnesium 1.3, CRP down to 3.1. Chest x-ray is repeated today and shows new large infiltrate throughout the entire right lung and small bilateral pleural effusions. INPATIENT MEDICATIONS: He received magnesium sulfate 1 gram IV x1 yesterday. He is started on magnesium oxide 400 mg p.o. daily today. I discontinued his Gabapentin. He is due to start torsemide 20 mg p.o. daily. The remainder of medications are unchanged as compared to yesterday. PROBLEMS: 1. Combined congestive heart failure (echocardiogram June 11 with dilated right ventricle and left ventricular ejection fraction of only 30%). Patient was diuresed with IV Lasix and now he is switched over to oral torsemide. I note that his O2 sats are down to 90% on 2 liters nasal cannula whereas he was saturating better the past few days, this despite him being diuresed. Chest x-ray was subsequently ordered which shows a new large right sided infiltrate. 2. CKD Stage III. Patient is at baseline renal function. His electrolytes are acceptable. There is hypomagnesemia and magnesium supplement has been ordered and he is also on potassium supplement. Continue with torsemide 20 mg daily and he is not suitable for PATY or [facility]B. 3. Leukocytosis likely related to right sided pneumonia. His white count is up to 20,0000 but he is on chronic steroids and I note his CRP is down-trending. Repeat chest x-ray was ordered because of low unusual oxygen saturation and new right sided diffuse infiltrate is noted, antimicrobials is as per primary service. Infectious Disease was on consultation. 4. Tremors and altered mentation. I have discontinued the patient's Gabapentin for now in view of his tremors. He is requiring nursing assistance with feeds. Encephalopathy is likely multifactorial and related to advanced age, sepsis, prolonged hospitalization, recent surgery etc. 5. Protein calorie malnutrition. Albumin is down to 1.8. The nursing staff is helping with feeds. He is on Protonix and Sucralfate due to recent GI bleed and is pending reevaluation with GI and is status post recent endoscopy and colonoscopy. 6. COPD with chronic hypoxic respiratory failure on 2 liters nasal cannula. O2 sats are usually in the high 90s but today in the low 90s. Chest x-ray shows a new right sided infiltrate, ? aspiration. MTDD
[2020-06-19 14:00] VITALS: BP 107/71
[2020-06-19 14:15] LABS: HEMOGLOBIN 9.7 g/dl (13.5-17.5); MEAN CORPUSCULAR HGB CONC 31.3 g/dl (32.0-36.5); PLATELET COUNT, AUTOMATED 270 10^3/uL (150-450); RED BLOOD COUNT 3.23 10^6/uL (4.30-6.10)
[2020-06-19 14:17] LABS: WHITE BLOOD COUNT 25.8 10^3/uL (4.0-10.0)
[2020-06-19 14:59] LABS: ALT/SGPT 17 U/L (12-78); BILIRUBIN,TOTAL 0.4 MG/DL (0.2-1.0); BLOOD UREA NITROGEN 30 MG/DL (7-18); CALCIUM LEVEL 8.1 MG/DL (8.8-10.2); CARBON DIOXIDE LEVEL 37 MEQ/L (21-32); CHLORIDE LEVEL 107 MEQ/L (98-107); CREATININE FOR GFR 1.15 MG/DL (0.70-1.30); GLOMERULAR FILTRATION RATE > 60.0 (>35); GLUCOSE, FASTING 165 MG/DL (70-100); MAGNESIUM LEVEL 1.9 MG/DL (1.8-2.4); POTASSIUM SERUM 4.8 MEQ/L (3.5-5.1); SODIUM LEVEL 146 MEQ/L (136-145); TOTAL PROTEIN 4.7 GM/DL (6.4-8.2)
[2020-06-19 15:13] LABS: BASOPHILS 1 % (0-1); LYMPHOCYTES 5 % (16-44); MONOCYTES 9 % (0-5); MYELOCYTES 2 % (0-0); NEUTROPHILS 83 % (28-66)
[2020-06-19 15:14] LABS: ANISOCYTOSIS 1+; PLATELET ESTIMATE NORMAL (NORMAL)
[2020-06-19 15:15] LABS: POIKILOCYTOSIS 1+
[2020-06-19] MEDS: MEROPENEM INJ 1 GM in IV 1 EA IV SCH (16:33)
--- NOTE | 2020-06-19 17:11 | IPNPDOC ---
Date Seen The patient was seen on 06/19/20. Progress Note SUBJECTIVE: 84 yo M, with a hx of COPD, PVD, CKD, BPH, GERD, peripheral neuropathy, gastroparesis, was received rehab at [facility], but was transfered to medical floor for acute L lower ischemia. Patient underwent and EGD and colonscopy on 06/07/20 due to anemia, prior to a L AKA by Dr. Hodges on 06/09/20. C Patient was seen and examined at bedside. No further bloody BM, Hgb stable. While he alert to self and place, he is exhibiting choreoform movements and persistent chewing his lips and cheeks, kicking off heel float boot. Ponce was DC on 06/17/20, has been voiding spontaneously. OBJECTIVE PHYSICAL EXAMINATION: VITAL SIGNS: please see below General:alert and awake, confused HEENT: PERRLA Neck: supple, normal ROM, no JVD Respiratory: lungs CTAB, no wheeze, no rales, no crackles CVS: elevated HR, normal S1, S2, no murmurs Abdo: soft, no masses, no hepatosplenomegaly, BS+, no rebound tenderness Skin: R arm skin tear, just above elbow on lateral surface, oozing blood, dressings damp. L arm foam dressings dry and intact. Extremities: Left above-knee amputation, right lower extremity 1+ pitting edema. L AKA stump: small purple area proximal to incision, evolving, appears to be an evolving bruise, rather than pressure. R heel pressure injury slightly less inflamed. MSK: L AKA. LABORATORY DATA, IMAGING STUDIES, MICROBIOLOGY: Please see below. CXR (06/19/20): IMPRESSION: New large infiltrate throughout the entire right lung. Small bilateral pleural effusions, unchanged. DVT prophylaxis ordered?: Eliquis. 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 Poor microvasculature in the R leg and poor nutritional status are poor prognostic indicator for R foot viability, even if 2nd attempt at revascularization is made more distally - heel float boot was off this morning, reinforced to replace/reposition boot hourly - L AKA stump purplish area on posterior aspect of stump is evolving dennis to a bruise,suspect not a pressure injury - optimize nutritional status to promote healing. Ensure TID. 1:1 feeding. AMS/encephalopathy possible 2/2 sepsis vs delirium 2/2 Lewy body dementia - in setting of leukocytosis 2/2 possible HAP as well as Staph epidermis UTI - concern for metabolic encephalopathy - encourage family presence - patient is chewing his cheek, lips, with bleeding noted - I spoke to oral surgeon Dr. Dickens, unfortunately he cannot recommend packing or other barrier method to prevent patient in chewing his mouth and lips, as this would likely result in aspiration. - given 2 mg dose IM haldol to help with agitation Leukocytosis - possibly 2/2 PNA as well as Staph epidermidis UTI, L AKA - Remains hemodynamically stable and afebrile - WBC fluctuacting, worse today - MRSA negative - reduced steroid dose to 5 mg daily (has been on chronic therapy for years) - Blood cultures 06/07: Negative at 5 days - DC zosyn, completed 10 days of therapy. DC Vanc, completed 7 days of therapy. - ID on consultation; appreciate their input - blood cultures repeated by ID, r/o PICC line infection - CXR (06/19/20) showing new large R infiltrate Suspected aspiration pna - CXR (06/19/20) showing new large R infiltrate - suspect due to aspiration as encephalopathic - completed 10 days of Zosyn, 7 days of vanc - will start on meropenem and levaquin - sputum and blood cultures ordered by ID PVD s/p Bilateral common iliac artery stent (05/24/2020) - c/w ASA 81 and Eliquis - Eliquis at reduced dosage, 2.5 mg BID - ongoing weeping from skin tears, changing dressings daily - Vascular surgery on consultation Acute Kidney Injury - Cr. Markedly improved, 1.33. - Review of medical record; Cr ranges from 1-1.5 - 2D echo was done on 06/11/20, showing LVEF 30%, septal segmental WMA. Moderate pulmonary HTN. - lasix prn, management by nephrology - Nephrology on consult; appreciate their input - DC ponce on 06/17/20 Systolic congestive heart failure - 2D echo was done on 06/11/20, showing LVEF 30%, septal segmental WMA. Moderate pulmonary HTN - currently receiving lasix 40 mg IV BID Anemia possibly 2/2 GIB, numerous skin tears on upper extremities, phlebotomy - transfused 3 units total - s/p EGD (found gastritis) and Colonoscopy (found polyps, diverticulosis, ulcer in rectum, internal/external hemorrhoids) with Dr. Obrien on 06/07 - c/w Carafate and Protonix - discussed with Dr. Obrien after bloody BM on 06/17/20, will re-eval on . - transfuse for Hgb <8. Preparation H suppositories. Chronic Atrial Fibrillation - c/w Amiodarone / Diltiazem / Atenolol - s/p Watchman procedure; still on an anticoagulant due to his PAD and recent stents Urinary retention with BPH - Patient required straight cath on 06/12 - c/w Tamsulosin and Finasteride Rectal Ulcer - c/w Hydrocortisone topical x 2 weeks COPD with chronic hypoxic respiratory failure on 2L NC - Patient has been on 2 L nasal cannula as an outpatient. However, not appear to require any while inpatient - Family and patient continued to request oxygen in place - advised of risks - Will need outpatient follow up with Pulmonology for PFTs Chronic Steroid Use - As per granddaughter, patient takes this for pain control and has been taking for approximately 4 years - I believe it has had a modest effect on pain control - prednisone dose is 5 mg qam and 2.5 mg qpm. will DC 2.5 mg qpm dose. DLP - c/w Atorvastatin Chronic pain - c/w Gabapentin / Prednisone - c/w Tramadol - s/p Morphine Protein Calorie Malnutrition - Poor oral intake with history of gastroparesis - Continue with encouragement and Ensure supplementation - c/w Pepto-Bismol alone for nausea Debility - c/w PT and OT Lewy Body Dementia - Has had intermittent hallucinations - Will avoid anti-emetics - c/w Ropinirole and Paroxetine DVT prophylaxis - c/w Eliquis 2.5 mg BID Dispo: pending clinical improvement. I spoke to the patient's granddaughter and healthcare proxy Amalia Posada at [phone] and aswered all questions in detail. She is considering options for hospice care. VS, I&O, 24H, Fishbone Vital Signs/I&O Vital Signs Date Time Temp Pulse Resp B/P (MAP) Pulse Ox O2 Delivery O2 Flow Rate FiO2 06/19/20 14:00 97.0 117 18 107/71 (83) 90 Nasal Cannula 2.0 I&O- Last 24 Hours up to 6 AM 06/19/20 05:59 Intake Total 1000 ml Output Total 400 ml Balance 600 ml Laboratory Data 24H LABS Laboratory Tests 2 06/19/20 13:31: Lactic Acid Level 1.5, Troponin I 0.03 06/19/20 13:32: Immature Granulocyte % (Auto) , Neutrophils (%) (Auto) , Nucleated Red Blood Cells % (auto) 0.0, Neutrophils 83H, Lymphocytes (Manual) 5L, Monocytes (Manual) 9H, Basophils (Manual) 1, Myelocytes 2H, Poikilocytosis 1+, Anisocytosis 1+, Platelet Estimate NORMAL, Anion Gap 2L, Glomerular Filtration Rate > 60.0, C alcium Level 8.1L, Magnesium Level 1.9, Total Bilirubin 0.4, Aspartate Amino Transf (AST/SGOT) 16, Alanine Aminotransferase (ALT/SGPT) 17, Alkaline Phosphatase 207H, Total Protein 4.7L, Albumin 2.0L, Albumin/Globulin Ratio 0.7 CBC/BMP Laboratory Tests 06/19/20 13:32 SUHAIL CALDERON MD Jun 19, 2020 17:11
[2020-06-19] MEDS ORDERED: LevoFLOXacin IV 750 MG in IV 1 EA IV SCH (18:00)
[2020-06-19] MEDS ORDERED: HALOPERIDOL 5MG/ML VIAL (J1630 PER 1) IM ONE (19:00)
[2020-06-19] MEDS: MIRALAX *UNIT DOSE* 17GM PACKET PO SCH (19:00)
[2020-06-19] MEDS: TAMSULOSIN 0.4 MG CAP PO SCH (20:55)
[2020-06-19] MEDS: rOPINIRole 0.25 MG TAB(REQUIP) PO SCH (20:55)
[2020-06-19] MEDS: ANUSOL HC 25MG SUPP PR SCH (20:55)
[2020-06-19 22:00] VITALS: BP 108/72
--- NOTE | 2020-06-19 23:03 | IPN ---
INFECTIOUS DISEASE PROGRESS NOTE DATE: 06/19/2020 SUBJECTIVE: Ken was seen and examined while lying in bed this afternoon by the infectious disease service. He appears more confused than he did at the end of last week and there are multiple tremors witnessed. His speech is unintelligible at this point, although he does respond to some commands appropriately. Apparently, he has been needing more and more assistance with feeds and per conversation with hospitalist service, patient's healthcare proxy/granddaughter is in the process of looking into hospice care and patient may switched to a comfort measures only status shortly. Due to slightly decreasing oxygen saturations despite responding well to IV Lasix and remaining on 2 liters supplemental oxygen, a chest x-ray was ordered, which resulted in an impression of new diffuse right lung large infiltrate with small bilateral pleural effusions that are unchanged. He is currently, at this time, on daily oral torsemide per the nephrology service, who also discontinued his gabapentin. OBJECTIVE: PHYSICAL EXAMINATION: VITAL SIGNS: Temperature 97 (maximum temperature (T-max) 98.9), heart rate 118, respiratory rate 18, blood pressure 107/71, SpO2 98% on 2 liters nasal cannula. GENERAL: Patient is more lethargic than he was when last seen three days ago. He seems much more confused and does not respond appropriately to questions, as he has unintelligible speech. He does, however, respond at times appropriately to commands. HEENT: Keratinized papules on the vertex of his scalp remain present. Noninjected anicteric sclerae. Nasal cannula is in place. CARDIOVASCULAR: Tachycardic rate, regular rhythm. Normal S1, S2. Radial pulses 2+ bilaterally. CHEST: No chest wall tenderness. Pacemaker in place upper left chest. RESPIRATORY: Patient not following commands for deep breathing. Diminished bilateral breath sounds. Due to shallow breathing, difficult to ascertain for adventitious breath sounds. Symmetric chest expansion. On supplemental nasal cannula oxygen 2 liters. GASTROINTESTINAL: Abdomen is soft, nontender and nondistended. Normoactive bowel sounds throughout. No rigidity. EXTREMITIES: The sutures and saul over the left [id number]-odb-[id number] amputation surgical site remain in place. There is no significant induration, erythema or discharge from the incision site of the left stump. There is some ecchymosis on the posterior aspect of the left stump. The ulcer on the right heel appears to be relatively unchanged from last examination three days ago. The area has some slight bruising and is macerated, but again, this does not appear significantly different from examinations last week. Right lower extremity is free of edema. The skin of right lower extremity and bilateral upper extremities is very thin. There is scattered ecchymosis diffusely over bilateral upper extremities with a peripherally inserted central catheter (PICC) line in place in the right upper extremity. GENITOURINARY: Morris catheter is no longer in place. A bladder scan was done showing 132 mL of urine. NEUROLOGIC: Patient is tremulous, confused, is unable to converse as he has unintelligible speech. He does, however, respond appropriately at times to some commands. More lethargic than he was on previous examinations. LABORATORY DATA: CBC: WBC 25.8, hemoglobin 9.7, hematocrit 31, platelet count 270,000, neutrophil predominance with 83% neutrophils. There are no band neutrophils noted on today's differential. CMP: Sodium 146, potassium 4.8, chloride 107, bicarbonate 37, BUN 30, creatinine 1.15, glucose 165, lactic acid 1.5, calcium 8.1, magnesium 1.9. Total bilirubin 0.4, AST 16, ALT 17, alkaline phosphatase 207, total protein 4.7, albumin 2.0. A 24 hour input through midnight last night of 1 liter, output of 800 mL with a net balance of positive 200 mL. IMAGING: Portable one view chest x-ray was obtained this morning with impression read "New large infiltrate throughout the entire right lung. Small bilateral pleural effusions unchanged." IMPRESSION/PLAN: Leukocytosis. This has been increasing over the past 48 hours despite being status post 11 days of intravenous (IV) Zosyn and 8 days of IV vancomycin. His last day of both the Zosyn and vancomycin was two days ago, on 06/17/2020. Antimicrobials were stopped yesterday (06/18/2020), but were restarted today, likely in the setting of the diffuse right lung infiltrate. At this time, this could be a manifestation of aspiration pneumonia versus atelectasis versus being hospitalized for the past month and associated dormancy. The leukocytosis, in addition to potentially being from aspiration pneumonia, may also be as a result of vancomycin-resistant Enterococcus versus a fungal infection as a result of potential PICC line infection. As a result, we have ordered two separate blood cultures to check for possible fungal and/or vancomycin-resistant enterococci (VRE) infections, as the patient is currently receiving antimicrobial therapy and is status post vancomycin and Zosyn. At this time, patient is on meropenem and will be starting IV levofloxacin this evening. Also have ordered a sputum culture, if that is possible to gather, again looking for perhaps a fungal infection etiology. DISPOSITION: On conversation with the hospital service, patient may be switched to comfort measures only tomorrow, as his healthcare proxy and granddaughter, Prisca, is reportedly looking into hospice care options for the patient. Obviously, should the patient switch to comfort measures only, we would recommend discontinuing antimicrobial therapy. Should patient switch to comfort measures only, infectious disease service will subsequently sign off.
[2020-06-20] MEDS: SODIUM CHLORIDE 0.9% INJ 10 ML SYR IV PRN ×2 (00:29→01:20)
[2020-06-20] MEDS: MEROPENEM INJ 1 GM in IV 1 EA IV SCH ×2 (00:29→10:09)
[2020-06-20] MEDS: SODIUM CHLORIDE 0.9% INJ 10 ML SYR IV SCH ×2 (05:37→17:45)
[2020-06-20 05:48] LABS: HEMATOCRIT 30.5 % (42.0-52.0); MEAN CORPUSCULAR HEMOGLOBIN 28.9 pg (27.0-33.0); MEAN CORPUSCULAR HGB CONC 29.5 g/dl (32.0-36.5); MEAN CORPUSCULAR VOLUME 98.1 fl (80.0-96.0); PLATELET COUNT, AUTOMATED 214 10^3/uL (150-450); RED BLOOD COUNT 3.11 10^6/uL (4.30-6.10)
[2020-06-20 05:49] LABS: WHITE BLOOD COUNT 20.2 10^3/uL (4.0-10.0)
[2020-06-20 06:00] VITALS: BP 121/76
[2020-06-20 06:19] LABS: ALBUMIN 1.7 GM/DL (3.2-5.2); ALT/SGPT 15 U/L (12-78); BILIRUBIN,TOTAL 0.6 MG/DL (0.2-1.0); BLOOD UREA NITROGEN 31 MG/DL (7-18); CALCIUM LEVEL 7.9 MG/DL (8.8-10.2); CARBON DIOXIDE LEVEL 37 MEQ/L (21-32); CHLORIDE LEVEL 111 MEQ/L (98-107); CREATININE FOR GFR 1.19 MG/DL (0.70-1.30); GLOMERULAR FILTRATION RATE > 60.0 (>35); GLUCOSE, FASTING 128 MG/DL (70-100); LYMPHOCYTES 4 % (16-44); MAGNESIUM LEVEL 1.8 MG/DL (1.8-2.4); MONOCYTES 11 % (0-5); MYELOCYTES 1 % (0-0); NEUTROPHILS 81 % (28-66); PLATELET ESTIMATE NORMAL (NORMAL); POTASSIUM SERUM 4.3 MEQ/L (3.5-5.1); SODIUM LEVEL 150 MEQ/L (136-145); TOTAL PROTEIN 4.6 GM/DL (6.4-8.2)
[2020-06-20] MEDS: SUCRALFATE 1 GM TAB PO SCH ×2 (07:30→12:00)
[2020-06-20] MEDS: SYMBICORT 160/4.5MCG INHALER 6GM INH SCH (07:37)
[2020-06-20] MEDS ORDERED: D5W 1,000 ML IV SCH (09:10)
--- NOTE | 2020-06-20 09:59 | IPNPDOC ---
Text Note Date of Service The patient was seen on 06/20/20. NOTE Subjective: Patient is a 84-year-old male with a PMHx of COPD, PVD, CKD, Peripheral neuropathy, Chronic pain, Gastroparesis, BPH, GERD, who is transferre d from [place] for left lower limb ischemia. Patient was evaluated by vascular surgery who had recommended zvfnn-ugy-szgx amputation. However, given his anemia. Patient had an EGD and colonoscopy performed (06/07) before he underwent left zdpcd-lng-tfyk of dictation on 06/09. Patient has been admitted to the hospitalist service for continued evaluation and management. Patient was seen and examined at the bedside. Patient appears to be very fatigued can answer to his name. Does not answer very many questions. Objective: Vitals (See below) General: Lying in bed, no acute distress, appears comfortable, drowsy HEENT: NC, AT CVS: RRR, +S1S2 Lungs: Fair air entry b/l, no visual wheezing, rhonchi or rales Abdomen: Soft, no distention or tenderness Extremities: Left uaudg-wor-eohv amputation. 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) - c/w Pain control - c/w PT and OT - c/w dietary support via Ensure as tolerated Acute metabolic encephalopathy possibly 2/2 sepsis, possibly 2/2 delirium 2/2 Lewy body dementia - Possible 2/2 infection - encourage family presence - patient is chewing his cheek, lips, with bleeding noted - c/w Haldol PRN Leukocytosis - possibly 2/2 PNA, possibly 2/2 Staph epidermidis UTI, L AKA - Remains hemodynamically stable and afebrile - WBC fluctuating, worse today - MRSA negative - CXR (06/19/20) showing new large R infiltrate - reduced steroid dose to 5 mg daily (has been on chronic therapy for years) - Blood cultures 06/07: Negative at 5 days - ID on consultation; currently on Levofloxacin and Meropenem - Family in discussion about Hopsice / [employer]; I have called and discussed the case with daughter - she is awaiting a call from hospice Suspected aspiration pna - possibly 2/2 Aspiration given encephalopathy - CXR (06/19/20) showing new large R infiltrate - s/p Zosyn and Vancomycin (7 days); - c/w Meropenem and Levaquin (Day #2) - Repeat cultures pending PVD s/p Bilateral common iliac artery stent (05/24/2020) - c/w ASA 81 and Eliquis - Eliquis at reduced dosage, 2.5 mg BID - c/w dressing changes - Vascular surgery on consultation Acute Kidney Injury - Cr. Markedly improved, 1.33. - Review of medical record; Cr ranges from 1-1.5 - 2D echo was done on 06/11/20, showing LVEF 30%, septal segmental WMA. Moderate pulmonary HTN. - Lasix PRN; management by nephrology - Nephrology on consult; appreciate their input - FARHAD Morris on 06/17/20 Systolic congestive heart failure - 2D echo was done on 06/11/20, showing LVEF 30%, septal segmental WMA. Moderate pulmonary HTN - currently receiving lasix 40 mg IV BID Anemia possibly 2/2 GIB, numerous skin tears on upper extremities, phlebotomy - s/p 3 units PRBC - s/p EGD (found gastritis) and Colonoscopy (found polyps, diverticulosis, ulcer in rectum, internal/external hemorrhoids) with Dr. Obrien on 06/07 - c/w Carafate and Protonix Chronic Atrial Fibrillation - c/w Amiodarone / Diltiazem / Atenolol - s/p Watchman procedure; still on an anticoagulant due to his PAD and recent stents Urinary retention with BPH - Patient required straight cath on 06/12 - c/w Tamsulosin and Finasteride Rectal Ulcer - c/w Hydrocortisone topical x 2 weeks COPD with chronic hypoxic respiratory failure on 2L NC - Patient has been on 2 L nasal cannula as an outpatient. However, not appear to require any while inpatient - Family and patient continued to request oxygen in place - advised of risks - Will need outpatient follow up with Pulmonology for PFTs Chronic Steroid Use - As per granddaughter, patient takes this for pain control and has been taking for approximately 4 years - c/w Adjusted dose of prednisone DLP - c/w Atorvastatin Chronic pain - c/w Gabapentin / Prednisone - c/w Tramadol - s/p Morphine Protein Calorie Malnutrition - Poor oral intake with history of gastroparesis - Continue with encouragement and Ensure supplementation - c/w Pepto-Bismol alone for nausea Debility - c/w PT and OT Lewy Body Dementia - Has had intermittent hallucinations - Will avoid anti-emetics - c/w Ropinirole and Paroxetine DVT prophylaxis - c/w Eliquis 2.5 mg BID Disposition: - Awaiting clinical improvement - Discussion with granddaughter about hospice VS,Fishbone, I+O VS, Fishbone, I+O Laboratory Tests 06/19/20 13:32 06/20/20 05:34 Vital Signs Date Time Temp Pulse Resp B/P (MAP) Pulse Ox O2 Delivery O2 Flow Rate FiO2 06/20/20 06:00 97.8 103 18 121/76 (91) 91 Nasal Cannula 5.0 I&O- Last 24 Hours up to 6 AM 06/20/20 06:00 Intake Total 630 ml Output Total 200 ml Balance 430 ml KRISHAN MORE MD Jun 20, 2020 09:59
[2020-06-20] MEDS: PARoxetine 20MG TABLET PO SCH (10:09)
[2020-06-20] MEDS: PREPARATION H SUPP (HEMORRHOID) PR SCH (10:09)
[2020-06-20] MEDS: APIXABAN 2.5 MG TAB (ELIQUIS) PO SCH ×2 (10:09→20:07)
[2020-06-20] MEDS: ASPIRIN 81MG ENTERIC TABLET PO SCH (10:09)
[2020-06-20] MEDS: predniSONE 5 MG TAB PO SCH (10:09)
[2020-06-20] MEDS: FINASTERIDE 5 MG TAB PO SCH (10:10)
[2020-06-20] MEDS: PANTOPRAZOLE 40MG TAB (PROTONIX) PO SCH (10:10)
[2020-06-20] MEDS: MAGNESIUM OXIDE 400MG TAB (MAG-OX) PO SCH (10:10)
[2020-06-20] MEDS: atenoloL 25 MG TAB PO SCH (10:10)
[2020-06-20] MEDS: ATORVASTATIN 20 MG TAB PO SCH (10:10)
[2020-06-20] MEDS: MIRALAX *UNIT DOSE* 17GM PACKET PO SCH (10:11)
[2020-06-20] MEDS: AMIODARONE 200 MG TAB (PACERONE) PO SCH (10:11)
[2020-06-20 10:12] VITALS: BP 95/60
--- NOTE | 2020-06-20 12:32 | IPN ---
NEPHROLOGY PROGRESS NOTE DATE: 06/20/2020 SUBJECTIVE: Pete is seen and examined this morning at the bedside. He remains lethargic, somnolent and a poor historian. States his name, but otherwise does not answer questions reliably. His chest x-ray yesterday had shown a new large right infiltrate. He is now on meropenem and Levaquin. He has also become hypernatremic and is now receiving D5W. He has had poor oral intake yesterday. PHYSICAL EXAMINATION: Current temperature 97.8, pulse 103, respiratory rate 18, blood pressure 121/76, saturation 91% on 4 liters nasal cannula. GENERAL: Patient is seen lying in bed, head of the bed elevated, elderly, frail-appearing male, somnolent and in no distress. Makes brief eye contact. Arouses to name, but does not follow commands and does not answer most questions. HEENT: Tongue is dry. Neck is supple. Jugular veins are not elevated. Nasal cannula is in place. LUNGS: Show rhonchus breath sounds on the right and fairly clear on the left. No crackle or rale. ABDOMEN: Soft. He does not grimace to palpation. EXTREMITIES: Show left esknd-ydq-xpxz amputation. Right lower extremity shows muscle wasting. There is no edema. Foot is in a boot. CHEST: There is a pacemaker in the left chest wall. NEUROLOGIC: He is drowsy, but arousable. He is not oriented. LABORATORY DATA: Labs today show sodium 150, potassium 4.3, bicarbonate 37, BUN 31, creatinine 1.1, magnesium 1.8, albumin 1.7. Hemoglobin 9.0, white count 20, platelets 214. Blood cultures are pending. Chest x-ray done yesterday showed new large right infiltrate. INPATIENT MEDICATIONS: He was started on D5W at 100 mL/hour. He is on meropenem and intravenous (IV) Levaquin now. He received Haldol 2 mg intramuscular (IM) times one dose yesterday evening. His potassium chloride was discontinued. Torsemide was discontinued. The remainder of medications are unchanged as compared to yesterday. PROBLEMS: 1. Hypernatremia. Patient has a several liter free water deficit in the setting of aspiration pneumonia, increased insensible losses, altered mental status and poor oral intake. Orders are written for D5W at 100 mL/hour and I would continue IV fluid while patient is encephalopathic and hypernatremic. 2. Aspiration pneumonia. Chest x-ray yesterday with new large right infiltrate. Patient has persistent leukocytosis. Blood cultures are repeated and pending. He is now again on antibiotics, Levaquin and meropenem, managed by the primary service. His oxygen requirements have increased, but there is no sign of hypervolemia. Indeed, he has a several liter free water deficit. Continue D5W at this time. 3. Multifactorial metabolic encephalopathy related to advanced age, prolonged hospitalization, sepsis/pneumonia, recent surgery, et cetera. We will keep him off the gabapentin. He received Haldol last night by primary service. He is requiring nursing assistance with feeds. He has become hypernatremic. D5W is being started. His albumin is also very low at less than 2. He has protein calorie malnutrition. However, I will not start total parenteral nutrition (TPN) at this time, as I know primary team is in discussion with family regarding goals of care/possible hospice. 4. 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 Torsemide is discontinued. Patient is having decreased oral intake and has become hypernatremic. He is receiving D5W. His oxygen requirements have increased, but it is because of aspiration pneumonia and not because of any sort of fluid overload. 5. Hypokalemia. Potassium is above 4 and I am stopping potassium supplementation for now.
[2020-06-20] MEDS ORDERED: LORazepam 2 MG/ML VIAL IV PRN (15:00)
[2020-06-20] MEDS ORDERED: SCOPOLAMINE 1MG TRANSDERMAL PATCH TOP PRN (15:00)
[2020-06-20] MEDS ORDERED: MORPHINE 2 MG/ML 1ML VIAL (J2270) IV PRN (15:00)
[2020-06-20] MEDS: MORPHINE 2 MG/ML 1ML VIAL (J2270) IV PRN ×2 (16:58→22:22)
[2020-06-21] MEDS: MORPHINE 2 MG/ML 1ML VIAL (J2270) IV PRN ×3 (02:16→12:04)
[2020-06-21] MEDS: SODIUM CHLORIDE 0.9% INJ 10 ML SYR IV SCH (05:39)
[2020-06-21] MEDS: ATORVASTATIN 20 MG TAB PO SCH (08:55)
[2020-06-21] MEDS ORDERED: ATIV1TAB10 PO (08:55)
[2020-06-21] MEDS ORDERED: HYOS125TA PO (08:55)
[2020-06-21] MEDS ORDERED: MORP20SO3 PO (08:55)
[2020-06-21] MEDS: ASPIRIN 81MG ENTERIC TABLET PO SCH (08:55)
[2020-06-21] MEDS: predniSONE 5 MG TAB PO SCH (08:55)
[2020-06-21] MEDS: APIXABAN 2.5 MG TAB (ELIQUIS) PO SCH (08:55)
--- NOTE | 2020-06-21 10:42 | DS.PDOC ---
Discharge Summary General Date of Admission Jun 05, 2020 at 13:36 Date of Discharge 06/21/2020 Discharge Summary PROCEDURES PERFORMED DURING STAY: - s/p EGD (found gastritis) and Colonoscopy (found polyps, diverticulosis, ulcer in rectum, internal/external hemorrhoids) with Dr. Obrien on 06/07/2020 - s/p L AKA with Dr. Hodges on 06/09/2020 ADMITTING DIAGNOSES / DISCHARGE DIAGNOSES: Left Limb Ischemia 2/2 Peripheral Vascular Disease Acute metabolic encephalopathy possibly 2/2 sepsis, possibly 2/2 delirium 2/2 Lewy body dementia Leukocytosis - possibly 2/2 PNA, possibly 2/2 Staph epidermidis UTI, L AKA Suspected aspiration pna - possibly 2/2 Aspiration given encephalopathy PVD s/p Bilateral common iliac artery stent (05/24/2020) Acute Kidney Injury Systolic congestive heart failure Anemia possibly 2/2 GIB, numerous skin tears on upper extremities Chronic Atrial Fibrillation Urinary retention with BPH Rectal Ulcer COPD with chronic hypoxic respiratory failure on 2L NC Chronic Steroid Use DLP Chronic pain Protein Calorie Malnutrition Debility Lewy Body Dementia DVT prophylaxis COMPLICATIONS/CHIEF COMPLAINT: Ischemia Of Left Lower Extremity. HISTORY OF PRESENT ILLNESS / HOSPITAL COURSE: Patient is a 84-year-old male with a PMHx of COPD, PVD, CKD, Peripheral neuropathy, Chronic pain, Gastroparesis, BPH, GERD, who is transferred from [place] for left lower limb ischemia. Patient was evaluated by vascular surgery who had recommended [id number]-ryi-[id number] amputation. However, given his anemia. Patient had an EGD and colonoscopy performed (06/07) before he underwent left [id number] of amputation on 06/09. Patient has been admitted to the hospitalist service for continued evaluation and management. Patient's hospital course was complicated with suspected infection, which was found to be a pneumonia / UTI. He completed a course of vancomycin and Zosyn for 7 days. This white that did not have any significant improvement. Patient had episodes of anemia and decompensated heart failure. Continue to have waxing and waning mentation, possibly secondary to infection or his underlying Lewy body dementia. After extensive discussion with the family, granddaughter, it was decided that the patient will be transitioned to comfort measures. On 06/20. Patient was transitioned to comfort measures and a new MOLST form was created. Patient will be transitioned to the hospice house today. DISCHARGE MEDICATIONS: Please see below. ALLERGIES: Please see below. PHYSICAL EXAMINATION ON DISCHARGE: Vitals (See below) General: Lying in bed, appears comfortable without distres, remains drowsy Full exam not completed LABORATORY DATA: Please see below. ACTIVITY: [As tolerated]. DISCHARGE PLAN: Will transition to hospice house in follow-up with primary care provider as needed Please return to the hospital if your pain / symptoms aren't controlled DISPOSITION: Hospice house TIME SPENT ON DISCHARGE: 35 minutes. Vital Signs/I&Os Vital Signs Date Time Temp Pulse Resp B/P (MAP) Pulse Ox O2 Delivery O2 Flow Rate FiO2 06/21/20 09:20 2.0 06/21/20 02:26 18 06/20/20 10:12 95/60 06/20/20 06:00 97.8 103 91 Nasal Cannula I&O- Last 24 Hours up to 6 AM 06/21/20 05:59 Intake Total 1270 ml Output Total 300 ml Balance 970 ml Laboratory Data Labs 24H Laboratory Tests 2 06/21/20 08:56: Coronavirus (COVID-19)(PCR) NEGATIVE Microbiology Microbiology 06/19/20 Blood Culture - Preliminary, Resulted No growth after 24 hours . All specim... 06/19/20 Blood Culture - Preliminary, Resulted No growth after 24 hours . All specim... Discharge Medications Scheduled PRN Hyoscyamine Sulfate (Hyoscyamine Sulfate) 0.125 Mg Tab.subl, 0.125 MG PO Q4HP PRN for TERMINAL SECRETIONS Use sublingually if unable to swallow Lorazepam (Ativan) 0.5 Mg Tablet, 0.5 MG PO Q4HP PRN for ANXIETY/AGITATION Use sublingually if unable to swallow Morphine Sulfate (Morphine Sulfate) 100 Mg/5 Ml Solution, 0.25-1 ML PO Q2H PRN for PAIN OR DYSPNEA Use sublingually if unable to swallow Allergies Coded Allergies: petrolatum,white (Verified Allergy, Mild, ITCH/RASH, 09/21/19) fluconazole (Verified Allergy, Unknown, UNKNOWN REACTION, 09/16/19) fluticasone (Verified Allergy, Unknown, UNKNOWN REACTION, 09/16/19) metformin (Verified Allergy, Unknown, UNKNOWN REACTION, 09/16/19) metoclopramide (Verified Adverse Reaction, Severe, 06/10/20) Lightheadedness promethazine (Verified Adverse Reaction, Intermediate, Altered Mental Status , 09/21/19) azithromycin (Verified Adverse Reaction, Unknown, LOWERS BP, 09/16/19) clarithromycin (Verified Adverse Reaction, Unknown, LOWERS BP, 09/16/19) ondansetron (Verified Adverse Reaction, Unknown, Hallucinations, 05/27/20) Pt states he experiences hallucinations with medication procaine (Verified Adverse Reaction, Unknown, DIZZINESS, 09/16/19) KRISHAN MORE MD Jun 21, 2020 10:42
== END 2020-06-21 12:21 | disposition hospice, inpatient (51) | DRG 239 ==
LOC: M MSPAV 13:36
PROVIDERS: ADMIT Family Medicine; ATTEND Internal Medicine
PROC: 0DJ08ZZ Inspection of Upper Intestinal Tract, Via Natural or Artificial Opening Endoscopic (ICD-10-PCS; 2020-06-07)
PROC: 0DBK8ZX Excision of Ascending Colon, Via Natural or Artificial Opening Endoscopic, Diagnostic (ICD-10-PCS; 2020-06-07)
PROC: 0DBM8ZX Excision of Descending Colon, Via Natural or Artificial Opening Endoscopic, Diagnostic (ICD-10-PCS; 2020-06-07)
PROC: 0DBL8ZX Excision of Transverse Colon, Via Natural or Artificial Opening Endoscopic, Diagnostic (ICD-10-PCS; 2020-06-07)
PROC: 0W3P8ZZ Control Bleeding in Gastrointestinal Tract, Via Natural or Artificial Opening Endoscopic (ICD-10-PCS; 2020-06-07)
PROC: 0Y6J0Z1 Detachment at Left Lower Leg, High, Open Approach (ICD-10-PCS; principal; 2020-06-09 09:45)
PROC: 02HV33Z Insertion of Infusion Device into Superior Vena Cava, Percutaneous Approach (ICD-10-PCS; 2020-06-12)
PROC: 30233N1 Transfusion of Nonautologous Red Blood Cells into Peripheral Vein, Percutaneous Approach (ICD-10-PCS; 2020-06-13)
PROC: 02HV33Z Insertion of Infusion Device into Superior Vena Cava, Percutaneous Approach (ICD-10-PCS; 2020-06-15)
DX: I70.262 Atherosclerosis of native arteries of extremities with gangrene, left leg (principal); A41.9 Sepsis, unspecified organism; J18.9 Pneumonia, unspecified organism; J69.0 Pneumonitis due to inhalation of food and vomit; I50.23 Acute on chronic systolic (congestive) heart failure; G93.41 Metabolic encephalopathy; L97.528 Non-pressure chronic ulcer of other part of left foot with other specified severity; K62.6 Ulcer of anus and rectum; L97.328 Non-pressure chronic ulcer of left ankle with other specified severity; I48.20 Chronic atrial fibrillation, unspecified; N17.9 Acute kidney failure, unspecified; E46 Unspecified protein-calorie malnutrition; J96.11 Chronic respiratory failure with hypoxia; N39.0 Urinary tract infection, site not specified; E87.0 Hyperosmolality and hypernatremia; I13.0 Hypertensive heart and chronic kidney disease with heart failure and stage 1 through stage 4 chronic kidney disease, or unspecified chronic kidney disease; L97.518 Non-pressure chronic ulcer of other part of right foot with other specified severity; J44.0 Chronic obstructive pulmonary disease with (acute) lower respiratory infection; J98.11 Atelectasis; K92.2 Gastrointestinal hemorrhage, unspecified; Z51.5 Encounter for palliative care; Z66 Do not resuscitate; G62.9 Polyneuropathy, unspecified; K21.9 Gastro-esophageal reflux disease without esophagitis; N40.1 Benign prostatic hyperplasia with lower urinary tract symptoms; R33.9 Retention of urine, unspecified; N18.30 Chronic kidney disease, stage 3 unspecified; E87.6 Hypokalemia; E78.5 Hyperlipidemia, unspecified; K63.5 Polyp of colon; K64.4 Residual hemorrhoidal skin tags; K64.8 Other hemorrhoids; D50.9 Iron deficiency anemia, unspecified; I70.234 Atherosclerosis of native arteries of right leg with ulceration of heel and midfoot; K29.70 Gastritis, unspecified, without bleeding; K44.9 Diaphragmatic hernia without obstruction or gangrene; L89.612 Pressure ulcer of right heel, stage 2; B95.62 Methicillin resistant Staphylococcus aureus infection as the cause of diseases classified elsewhere; R53.81 Other malaise; G54.6 Phantom limb syndrome with pain; R63.0 Anorexia; B35.1 Tinea unguium; S40.022A Contusion of left upper arm, initial encounter; S60.212A Contusion of left wrist, initial encounter; G31.83 Neurocognitive disorder with Lewy bodies; F02.80 Dementia in other diseases classified elsewhere, unspecified severity, without behavioral disturbance, psychotic disturbance, mood disturbance, and anxiety; F32.9 Major depressive disorder, single episode, unspecified; K57.30 Diverticulosis of large intestine without perforation or abscess without bleeding; D50.0 Iron deficiency anemia secondary to blood loss (chronic); K31.84 Gastroparesis; Z95.818 Presence of other cardiac implants and grafts; Z79.01 Long term (current) use of anticoagulants; Z95.820 Peripheral vascular angioplasty status with implants and grafts; Z79.82 Long term (current) use of aspirin; Z79.52 Long term (current) use of systemic steroids; Z79.899 Other long term (current) drug therapy; Z88.1 Allergy status to other antibiotic agents; Z88.8 Allergy status to other drugs, medicaments and biological substances; Z87.891 Personal history of nicotine dependence; Z99.81 Dependence on supplemental oxygen; Z86.16 Personal history of COVID-19; Z95.0 Presence of cardiac pacemaker; Y95 Nosocomial condition; Z20.822 Contact with and (suspected) exposure to COVID-19